=== PATIENT | female | born 1970 | race Caucasian/White ===

== ENCOUNTER 2020-08-23 15:59 | Outpatient (REF) | payer MEDICAID, SELFPAY | END 2020-08-23 16:00 | disposition home or self-care (01) | LOC: HO.LAB 15:59 | PROVIDERS: PCP Internal Medicine; Visit Provider Internal Medicine | DX: Z20.828 Contact with and (suspected) exposure to other viral communicable diseases (principal) | CPT/HCPCS: C9803; U0003 ==

== ENCOUNTER 2020-09-08 17:44 | Outpatient (REF) | payer MEDICAID, SELFPAY | END 2020-09-08 17:45 | disposition home or self-care (01) | LOC: HO.LAB 17:44 | PROVIDERS: Visit Provider Internal Medicine | DX: Z20.828 Contact with and (suspected) exposure to other viral communicable diseases (principal) | CPT/HCPCS: C9803; U0003 ==

== ENCOUNTER 2020-12-31 15:18 | Outpatient (REF) | payer MEDICAID, SELFPAY ==
--- NOTE | ~2020-12-31 | US_ITS ---
EXAMINATION: US VENOUS ULTRASOUND WITH DOPPLER LOWER EXTREMITY, LEFT CLINICAL INFORMATION: Left calf pain COMPARISON: None TECHNIQUE: Ultrasound of the deep veins is performed from the hip to the calf with compression sonography and color and pulse Doppler assessment. Spectral analysis with color-flow imaging is performed. FINDINGS: There is normal venous compression and respiratory variation and augmented flow. The visualized common femoral vein, superficial femoral vein, profunda femoral vein, popliteal vein, and the trifurcation region shows no evidence of deep venous thrombosis. There is no significant popliteal fossa cyst. There is a small benign lymph node in the left groin measuring 3.0 x 0.70 cm. It appears benign. If the patient's symptoms persist, followup ultrasound in 5 days 7 days might be of value to exclude proximal propagation from a non-visualized calf vein. US/US venous duplex LE IMPRESSION: No DVT demonstrated in the left lower extremity.
== END 2020-12-31 15:19 | disposition home or self-care (01) ==
LOC: HO.US 15:18
PROVIDERS: Visit Provider Internal Medicine
DX: M79.662 Pain in left lower leg (principal)
CPT/HCPCS: 93971

== ENCOUNTER 2021-02-15 17:54 | Emergency (ER) | payer MEDICAID, SELFPAY ==
--- NOTE | 2021-02-15 18:19 | ECG_ITS ---
Test Reason : CHEST PAIN Blood Pressure : / mmHG Vent. Rate : 058 BPM Atrial Rate : 058 BPM P-R Int : 122 ms QRS Dur : 074 ms QT Int : 410 ms P-R-T Axes : 045 022 006 degrees QTc Int : 402 ms Sinus bradycardia with sinus arrhythmia Septal infarct (cited on or before 06-JUN-2015) Abnormal ECG When compared with ECG of 03-NOV-2017 17:17, No significant change was found Referred By: Generic ED Physician Electronically Signed By:RICKY MONTIEL MD
[2021-02-15 18:33] VITALS: BP 152/82; PULSE 69; RESP 18; TEMP 36.9; O2SAT 100; BMI 37.4
[2021-02-15 20:08] VITALS: BP 139/75; PULSE 62; RESP 16; O2SAT 97
--- NOTE | 2021-02-15 20:21 | ED_ITS ---
HPI - General Adult General Chief complaint: Arrhythmia/Palpitations Stated complaint: abnormal ekg Time Seen by Provider: 02/15/21 20:21 Source: patient Mode of arrival: ambulatory Limitations: no limitations History of Present Illness HPI narrative: Patient been feeling the chest pain with palpitation off and on for last few days chest pain increases on deep breath and palpation no known coronary artery disease slight anxiety Related Data Previous Rx's Medication Instructions Recorded tramadol 50 mg tablet 100 mg PO TID PRN #180 tab 02/08/21 Allergies Allergy/AdvReac Type Severity Reaction Status Date / Time Penicillins Allergy Mild VAGINAL Unverified 05/27/20 16:29 FUNGUS INFECTION amoxicillin [AMOXICILLIN] Allergy Unknown VAGINAL Unverified 05/27/20 16:29 FUNGUS INFECTION lisinopril [LISINOPRIL] Allergy Unknown COUGH Unverified 05/27/20 16:29 penicillin V Allergy Unknown Unverified 12/25/19 00:00 prednisone Allergy Unknown Verified 12/25/19 00:00 verapamil Allergy Unknown Unverified 12/25/19 00:00 hydrocodone [From VICODIN] AdvReac Unknown STOMACH Unverified 05/27/20 16:29 PAIN Review of Systems Review of Systems: Constitutional : No Weight loss, No Fever, No Chills ENT/Mouth : No sore throat, No Rhinorrhea Eyes: No Eye Pain, No Swelling Cardiovascular : + Chest Pain, + palpitations Respiratory : No Cough, No Sputum, no shortness of breath Gastrointestinal : no Nausea, No Vomiting, No Diarrhea, No abdominal Pain, no black stools Genitourinary : No Dysuria, No Urinary Frequency Musculoskeletal : No joint pain, No Myalgias, No Joint Swelling Skin : No Skin Lesions, No rash Neuro : No Weakness, No Numbness, No Dizziness, No Headache Psych : No Anxiety/Panic, No Depression Heme/Lymph: No Bruising, No Lymphadenopathy Endocrine : No Polyuria, No Polydipsia All other systems reviewed and are negative PMFSH Social History Social History Advance Directives: No Physical Exam Vital Signs: Vital Signs: Last Vital Signs Temp 98.4 F 02/15/21 18:33 Pulse 62 02/15/21 20:08 Resp 16 02/15/21 20:08 BP 139/75 02/15/21 20:08 Pulse Ox 97 02/15/21 20:08 Body Mass Index 37.4 Appearance: Alert. Oriented X3. No acute distress. Eyes: PERRLA, No Nystagmus ENT: Pharynx normal. Oral Mucosa moist Neck: Normal inspection. Neck supple. CVS: Normal heart rate and rhythm. Pulses normal. Respiratory: No respiratory distress. Equal air entry bilateral, no wheezing/rales/rhonchi Abdomen: Soft and nontender. Bowel sounds are present, no mass palpable, no CVA tenderness Skin: Skin warm and dry. Normal skin color. Normal skin turgor. Extremities: No lower extremity edema. No calf tenderness Neuro: Oriented X 3. No motor deficit. No sensory deficit.No cerebellar signs , cranial nerves II-XII intact Medical Decision Making MDM Narrative Medical decision making narrative: Patient atypical chest pain for more than 24 hours duration EKG without any ischemic changes troponin negative director of cardiac rehabilitation without any PVCs or arrhythmias will discharge patient home advised to follow-up with precipitator supervisor/PCP Lab Data Lab results reviewed: Yes I reviewed the patient's lab results. Labs: Lab Results 02/15/21 Range/Units 21:02 Troponin I High Sens < 3.5 (<3.5-17.0) ng/L ECG Data Attestation: I personally reviewed and interpreted this ECG as follows: Interpretation: Sinus bradycardia heart rate 58 beats per minute no acute ST T wave changes normal intervals normal axis no acute ischemia Discharge Plan Discharge Clinical Impression: Chest pain Qualifiers: Chest pain type: precordial pain Qualified Code(s): R07.2 - Precordial pain Patient Disposition: Home, Self-Care Instructions: Chest Pain (ED) Additional Instructions: Your chest pain is likely musculoskeletal Follow-up your PCP for further workup Prescriptions: No Action tramadol 50 mg tablet 100 mg PO TID PRN (Reason: pain) Qty: 180 RF: 5 Interventions: ED Discharge Assessment Last Done: 02/15/21 22:32 Discharge Date/Time: 02/15/21 22:33
[2021-02-15 21:37] LABS: Troponin-I High Sensitivity < 3.5 ng/L (<3.5-17.0)
== END 2021-02-15 22:33 | disposition home or self-care (01) ==
PROVIDERS: Emergency Provider Internal Medicine; PCP Internal Medicine
DX: R07.2 Precordial pain (principal); R00.1 Bradycardia, unspecified; F41.9 Anxiety disorder, unspecified
CPT/HCPCS: 36415; 84484; 93005; 99283; 99284

== ENCOUNTER → 2021-06-28 13:53 | Outpatient (BNVA) | payer MEDICAID, SELFPAY | PROVIDERS: PCP Internal Medicine; Referring Provider Internal Medicine; Visit Provider Internal Medicine Cardiovascular Disease | DX: R07.2 Precordial pain (principal); R00.2 Palpitations; I10 Essential (primary) hypertension | CPT/HCPCS: 99202 ==

== ENCOUNTER → 2021-07-06 11:20 | Outpatient (REF) | payer MEDICAID, SELFPAY ==
--- NOTE | 2021-07-06 11:35 | CA_ITS ---
Acquisition Time: 2021-07-06 11:24:18 Total Exercise Time: 00:06:50 Test Indications: CP Medications: SEE CHART Protocol: LAM Max HR: 171 BPM 100% of Pred: 170 BPM Max BP: 190/050 mmHG Max Work Load: 8.2 METS Exercise stress test with exercise 6 min 50 sec of Lam protocol, with mild to mod sob, no chest discomfort, without arrythmia, with normotensive response to exercise, without EKG changes meeting criteria for ischemia. Echo images obtained by tech at rest and immediately post peak exercise. Definity contrast used. Test reviewed with Dr Rao. STRESS ECHO : Technique : Images were obtained at rest and immediately post exercise within 1 minute. Definity was injected to enhance endocardial definition. Images were obtained in multiple views and compared side to side. Findings : Images at rest were of good quality. LV systolic function is normal with normal wall motion. Post exercise images are of good quality. There is excellent augmentation of overall LV systolic function. There are no regional wall motion abnormalities. Conclusion : Stress echo is negative for ischemia Referred By: Ricky Roy Overread By: RICKY ROY MD
--- NOTE | 2021-07-06 11:35 | HM_ITS ---
Conclusion: 1. Patient was monitored for 3 days and 19 hours 2. Baseline was normal sinus rhythm with average heart rate of 83 beats per minute 3. No pauses or significant bradycardia noted 4. Very rare ectopics noted 5. No patient reported events MTDD
== END ==
LOC: HO.CARD 11:20
PROVIDERS: PCP Internal Medicine; Visit Provider Internal Medicine Cardiovascular Disease
DX: R07.2 Precordial pain (principal); R00.2 Palpitations
CPT/HCPCS: 93242; 93350; Q9957

== ENCOUNTER → 2021-07-29 09:28 | Outpatient (REF) | payer MEDICAID, SELFPAY ==
--- NOTE | ~2021-07-29 | XR_ITS ---
EXAMINATION: XR thoracic spine 2V, XR lumbar spine 4V min, XR cervical spine 4V CLINICAL INFORMATION: Pain in entire spine. COMPARISON: Thoracic lumbosacral cervical spine dated 04/29/14. Spine dated 01/26/15. TECHNIQUE: AP, lateral, open-mouth and both oblique views of the cervical spine. AP and lateral thoracic spine with swimmer's view. AP and lateral views of the lumbosacral spine with coned lateral view of the lumbosacral junction and both oblique views. FINDINGS: CERVICAL SPINE: Alignment. Vertebral body heights are maintained. Disc spaces are well-maintained. No evidence for spinal facet arthropathy. The neural foramina are widely patent bilaterally. THORACIC SPINE: Alignment is unremarkable. Bridging osteophytosis is present at T6-T7 and T7-T8 with minimal osteophytosis at other levels. Disc spaces are maintained. Vertebral body heights are maintained. The paravertebral soft tissues are normal. LUMBOSACRAL SPINE: There are 4 lumbar type vertebral bodies with presumed bilateral sacralization of L5. Disc spaces are maintained. Vertebral body heights are maintained. Alignment is normal. Facet arthropathy is noted in the lower lumbar spine. Sacroiliac joints are normal. The paravertebral soft tissues are normal. XR/XR lumbar spine 4V min IMPRESSION: 1. Unremarkable radiographic evaluation of the cervical spine. 2. Multilevel spondylosis in the thoracic spine. 3. Facet arthropathy in the lumbar spine. No significant degenerative disc disease.
--- NOTE | ~2021-07-29 | XR_ITS ---
EXAMINATION: XR thoracic spine 2V, XR lumbar spine 4V min, XR cervical spine 4V CLINICAL INFORMATION: Pain in entire spine. COMPARISON: Thoracic lumbosacral cervical spine dated 04/29/14. Spine dated 01/26/15. TECHNIQUE: AP, lateral, open-mouth and both oblique views of the cervical spine. AP and lateral thoracic spine with swimmer's view. AP and lateral views of the lumbosacral spine with coned lateral view of the lumbosacral junction and both oblique views. FINDINGS: CERVICAL SPINE: Alignment. Vertebral body heights are maintained. Disc spaces are well-maintained. No evidence for spinal facet arthropathy. The neural foramina are widely patent bilaterally. THORACIC SPINE: Alignment is unremarkable. Bridging osteophytosis is present at T6-T7 and T7-T8 with minimal osteophytosis at other levels. Disc spaces are maintained. Vertebral body heights are maintained. The paravertebral soft tissues are normal. LUMBOSACRAL SPINE: There are 4 lumbar type vertebral bodies with presumed bilateral sacralization of L5. Disc spaces are maintained. Vertebral body heights are maintained. Alignment is normal. Facet arthropathy is noted in the lower lumbar spine. Sacroiliac joints are normal. The paravertebral soft tissues are normal. XR/XR cervical spine 4V IMPRESSION: 1. Unremarkable radiographic evaluation of the cervical spine. 2. Multilevel spondylosis in the thoracic spine. 3. Facet arthropathy in the lumbar spine. No significant degenerative disc disease.
--- NOTE | ~2021-07-29 | XR_ITS ---
EXAMINATION: XR thoracic spine 2V, XR lumbar spine 4V min, XR cervical spine 4V CLINICAL INFORMATION: Pain in entire spine. COMPARISON: Thoracic lumbosacral cervical spine dated 04/29/14. Spine dated 01/26/15. TECHNIQUE: AP, lateral, open-mouth and both oblique views of the cervical spine. AP and lateral thoracic spine with swimmer's view. AP and lateral views of the lumbosacral spine with coned lateral view of the lumbosacral junction and both oblique views. FINDINGS: CERVICAL SPINE: Alignment. Vertebral body heights are maintained. Disc spaces are well-maintained. No evidence for spinal facet arthropathy. The neural foramina are widely patent bilaterally. THORACIC SPINE: Alignment is unremarkable. Bridging osteophytosis is present at T6-T7 and T7-T8 with minimal osteophytosis at other levels. Disc spaces are maintained. Vertebral body heights are maintained. The paravertebral soft tissues are normal. LUMBOSACRAL SPINE: There are 4 lumbar type vertebral bodies with presumed bilateral sacralization of L5. Disc spaces are maintained. Vertebral body heights are maintained. Alignment is normal. Facet arthropathy is noted in the lower lumbar spine. Sacroiliac joints are normal. The paravertebral soft tissues are normal. XR/XR thoracic spine 2V IMPRESSION: 1. Unremarkable radiographic evaluation of the cervical spine. 2. Multilevel spondylosis in the thoracic spine. 3. Facet arthropathy in the lumbar spine. No significant degenerative disc disease.
--- NOTE | 2021-07-29 09:30 | CA_ITS ---
Transthoracic Echocardiogram Patient (Last, First, Middle): Elaine Rodas, Gender: Female Date of : 1970 Age: 50 Procedure Date: 07/29/2021 Procedure Type: Transthoracic Echocardiogram Location: OP Height: 160.02 cm Weight: 100.25 kg BSA: 2.02 m2 Heart Rate: bpm BP: 134 / 80 mmHg Client Development Consultant: Referring MD: Aayush Roy MD Symptoms: R07.2 - Precordial pain Conclusions: - Normal left ventricular size and systolic function. - Normal right ventricular cavity size and systolic function. - Both atria are normal in size. - There is mild thickening of the aortic valve. Findings Left Ventricle Normal left ventricular size and systolic function. There is mildly increased left ventricular wall thickness. The visually estimated ejection fraction is between 60-65%. Diastolic function is normal for age. Right Ventricle Normal right ventricular cavity size and systolic function. Atria Both atria are normal in size. Aortic Valve There is a normal trileaflet aortic valve. There is mild thickening of the aortic valve. There is no aortic valve stenosis. There is no aortic valve regurgitation. Mitral Valve Normal mitral valve structure and function. There is trace mitral valve regurgitation. There is no mitral valve stenosis. Pulmonic Valve Normal pulmonic valve structure and function. There is no pulmonic valve regurgitation. Tricuspid Valve Normal tricuspid valve structure and function. There is trace tricuspid valve regurgitation. Normal right atrial pressure. There is no evidence of pulmonary hypertension. Great Vessels All visible segments of the aorta are normal in size. The visualized portions of the pulmonary artery and branches are normal. Venous The inferior vena cava is normal in size and collapses greater than 50% with inspiration. Pericardium/Pleural There is no evidence of pericardial effusion. Measurements 2D Linear Measurements IVSd: 1.06 0.6-0.9/0.6-1.0 cm LVIDd: 4.25 3.9-5.3/4.2-5.9 cm LVIDd Index: 2.10 2.4-3.2/2.2-3.1 cm/m2 LVIDs: 2.66 2.0-3.6 cm LVPWd: 1.08 0.7-1.1 cm Ao Root: 2.80 2.1-3.5 cm LA Diam: 3.80 2.7-3.8/3.0-4.0 cm LAIDs Index: 1.88 1.5-2.3 cm/m2 LV Mass: 191.52 67-162/88-224 g LV Mass Index: 94.81 43-95/49-115 g/m2 LVOT Diam: 2.10 3.0+(-)1.3 cm Mitral Valve MV Pk E: 0.91 MV PK A: 0.82 MV Decel Time: 189.00 E/A: 1.10 E'Lateral: 10.00 E'Medial: 11.40 E/E' Med: 8.00 E/E' Lat: 9.10 PHT: 55.00 MVA PHT: 4.00 Decel [place]: 4.80 Aortic Valve AoV Pk John: 1.54 AoV Mn John: 0.88 AoV VTI: 0.34 AoV Pk Grad: 9.00 Aov Mn Grad: 4.00 WILLY Cont.VTI: 2.36 LVOT LVOT Pk John: 0.97 LVOT Mn John: 0.61 LVOT VTI: 0.23 LVOT Pk Grad: 4.00 LVOT Mn Grad: 2.00 LVOT Diam: 2.10 LVOT Area: 3.46 Diastolic Function MV Pk E: 0.91 MV Pk A: 0.82 E/A: 1.10 E'Medial: 11.40 E/E' Med: 8.00 E' Laterial: 10.00 E/E' Lat: 9.10 Right Ventricle TAPSE (mm): 2.78 Tricuspid Valve TR Pk John: 2.03 TR Pk Grad: 16.00 RA Press: 3.00 RVSP: 19.00 Great Vessels Aorta Ao Root-2D: 2.80 2.0-3.7 cm Pulmonary Valve PV Pk John: 0.98 Peak PV Grad: 4.00 Updated in Other Vendor System with Status of Final Roque Gongroa MD electronically signed on 08/01/2021 8:27:50 PM with status of Final
== END ==
LOC: HO.CARD 09:28
PROVIDERS: Absent Provider Internal Medicine; PCP Internal Medicine; Visit Provider Internal Medicine Cardiovascular Disease
DX: R07.2 Precordial pain (principal); I10 Essential (primary) hypertension; M54.2 Cervicalgia; M54.50 Low back pain, unspecified; M54.6 Pain in thoracic spine
CPT/HCPCS: 72050; 72070; 72110; 93306

== ENCOUNTER → 2021-08-03 14:56 | Outpatient (BNVA) | payer MEDICAID, SELFPAY | PROVIDERS: PCP Internal Medicine; Referring Provider Internal Medicine; Visit Provider Nurse Practitioner Family | DX: R07.2 Precordial pain (principal); R00.2 Palpitations; I10 Essential (primary) hypertension | CPT/HCPCS: 99212 ==

== ENCOUNTER 2021-08-25 14:11 | Outpatient (REF) | payer MEDICAID, SELFPAY ==
[2021-08-25 15:14] LABS: Alanine Aminotransferase 9 U/L (0-31); Albumin Level 3.7 g/dL (3.5-5.0); Alkaline Phosphatase 116 U/L (39-117); Anion Gap 10 (12-20); Aspartate Amino Transferase 12 U/L (5-31); Bilirubin Total 0.3 mg/dL (0.0-1.0); Blood Urea Nitrogen 11 mg/dL (9-16); Calcium 9.4 mg/dL (8.4-10.2); Carbon Dioxide 28 mmol/L (22-29); Chloride 108 mmol/L (96-108); Estimated Glomerular Filt Rate > 60; Glucose Random 157 mg/dL (60-115); Potassium 4.3 mmol/L (3.3-5.1); Sodium 142 mmol/L (135-145); Total Protein 7.3 g/dL (6.5-8.0)
== END 2021-08-25 14:12 | disposition home or self-care (01) ==
LOC: HO.LAB 14:11
PROVIDERS: PCP Internal Medicine; Visit Provider Nurse Practitioner Family
DX: M47.816 Spondylosis without myelopathy or radiculopathy, lumbar region (principal)
CPT/HCPCS: 36415; 80053

== ENCOUNTER 2021-12-02 12:50 | Outpatient (REF) | payer MEDICAID, SELFPAY ==
--- NOTE | 2021-12-02 | PFT_ITS ---
FLOWS: FEV1 89% of predicted at 2.39 L. FVC 79% of predicted at 2.63 L. FEV1 to FVC ratio of 0.91. No bronchodilator response except in small to medium airways. LUNG VOLUMES: Total lung capacity 73% of predicted at 3.58 L. Residual volume 54% of predicted at 0.96 L. Slow vital capacity 83% of predicted at 2.63 L. Expiratory reserve volume 61% of predicted at 0.61 L. Diffusion capacity is mildly decreased, diffusion capacity corrects to normal after adjustment for alveolar ventilation. IMPRESSION: Mild restrictive ventilatory defect with no bronchodilator response except in small to medium airways. MD HUANG Joseph/MODL / [id number]
== END 2021-12-02 12:51 | disposition home or self-care (01) ==
LOC: HO.RESP 12:50
PROVIDERS: PCP Internal Medicine; Visit Provider Internal Medicine
DX: R06.2 Wheezing (principal)
CPT/HCPCS: 94060; 94727; 94729

== ENCOUNTER → 2022-01-30 14:16 | Outpatient (BNVA) | payer MEDICAID, SELFPAY | PROVIDERS: PCP Internal Medicine; Visit Provider Nurse Practitioner Family | DX: M79.7 Fibromyalgia (principal); M47.816 Spondylosis without myelopathy or radiculopathy, lumbar region | CPT/HCPCS: 99212 ==

== ENCOUNTER 2022-05-03 12:25 | Outpatient (REF) | payer MEDICAID, SELFPAY ==
[2022-05-03 12:36] LABS: MANUAL DIFF FLAG NO
[2022-05-03 13:30] LABS: Basophils Absolute Auto 0.1 X10*3/uL (0.0-0.2); Basophils Percent Auto 0.7 % (0-2); Eosinophils Absolute Auto 0.2 X10*3/uL (0.0-0.4); Hematocrit 36.8 % (37.0-47.0); Hemoglobin 12.4 g/dl (12.0-16.0); Imm Gran Abs Auto 0.01 X10*3/uL (0.00-0.03); Imm Gran Pct Auto 0.1 % (0.0-0.4); Lymphocytes Absolute Auto 3.3 X10*3/uL (1.2-4.9); Lymphocytes Percent Auto 43.1 % (20-40); Mean Corpuscular HGB Conc 33.7 g/dl (31.0-35.0); Mean Corpuscular Volume 88.9 fL (80.0-98.0); Mean Platelet Volume 10.3 fL (9.4-12.3); Monocytes Absolute Auto 0.4 X10*3/uL (0.1-1.2); Monocytes Percent Auto 5.3 % (2-11); Neutrophils Absolute Auto 3.7 x10*3/uL (2.0-8.3); Neutrophils Percent Auto 48.8 % (45-73); Platelet Count 269 X10*3/uL (160-400); Red Blood Count 4.14 X10*6/uL (4.20-5.50); Red Cell Distribution Width 13.1 % (11.0-16.0); White Blood Count 7.6 X10*3/uL (4.8-10.8)
[2022-05-03 13:39] LABS: Appearance Urine Clear; Color Urine Yellow; Glucose Urine UA Negative (Negative); Leukocyte Esterase Urine Negative (Negative); Nitrite Urine Negative (Negative); PH 5.5 (5.0-8.0); Specific Gravity - Urine 1.025 (1.005-1.025); Urine Blood Trace (Negative); Urine Ketones Trace mg/dL (Negative); Urine Protein Negative (Neg-Trace)
[2022-05-03 13:44] LABS: Bacteria Urine None Seen (None Seen); Hyaline Casts Urine 0-2 /LPF (0-2); Squamous Epithelial Cell Urine 0-2 /HPF (0-2); WBC Urine 0-5 /HPF (0-5)
[2022-05-03 14:10] LABS: Alanine Aminotransferase 10 U/L (0-31); Albumin Level 3.8 g/dL (3.5-5.0); Alkaline Phosphatase 103 U/L (39-117); Anion Gap 12 (12-20); Aspartate Amino Transferase 12 U/L (5-31); Bilirubin Total 0.2 mg/dL (0.0-1.0); Blood Urea Nitrogen 12 mg/dL (9-16); Calcium 9.3 mg/dL (8.4-10.2); Carbon Dioxide 28 mmol/L (22-29); Chloride 106 mmol/L (96-108); Estimated Glomerular Filt Rate > 60; Glucose Random 102 mg/dL (60-115); Potassium 4.3 mmol/L (3.3-5.1); Sodium 142 mmol/L (135-145); Total Protein 7.2 g/dL (6.5-8.0)
[2022-05-03 14:15] LABS: TSH reflex Free T4 1.17 uIU/mL (0.32-4.0)
== END 2022-05-03 12:26 | disposition home or self-care (01) ==
LOC: HO.LAB 12:25
PROVIDERS: PCP Internal Medicine; Visit Provider Nurse Practitioner
DX: Z01.818 Encounter for other preprocedural examination (principal); K91.5 Postcholecystectomy syndrome; K29.60 Other gastritis without bleeding; K58.9 Irritable bowel syndrome, unspecified; Z12.11 Encounter for screening for malignant neoplasm of colon; Z80.0 Family history of malignant neoplasm of digestive organs
CPT/HCPCS: 36415; 80053; 81001; 84443; 85025; 99202; 99212

== ENCOUNTER → 2022-05-24 10:06 | Outpatient (BNVA) | payer MEDICAID, SELFPAY | PROVIDERS: PCP Internal Medicine; Visit Provider Nurse Practitioner | DX: K91.5 Postcholecystectomy syndrome (principal); R11.0 Nausea; K29.60 Other gastritis without bleeding; Z80.0 Family history of malignant neoplasm of digestive organs | CPT/HCPCS: 99212 ==

== ENCOUNTER 2022-08-08 13:28 | Outpatient (REF) | payer MEDICAID, SELFPAY ==
--- NOTE | ~2022-08-08 | MR_ITS ---
EXAMINATION: MR LUMBAR SPINE WITHOUT CONTRAST CLINICAL INFORMATION: 51-year-old with unspecified low back pain. COMPARISON: None. TECHNIQUE: MRI of the lumbar spine was obtained using routine sequences without contrast. FINDINGS: CORONAL ALIGNMENT: Normal. SAGITTAL ALIGNMENT: Normal. LUMBOSACRAL JUNCTION: Normal. There are 4 [id number] lumbar-type vertebral bodies. The L1 level shows bilateral ribs. VERTEBRAL BODIES: Well maintained with normal height. No compression fractures, anomalies or other deformities. DISC SPACES AND ENDPLATES: Intervertebral disc space heights are well maintained throughout the lumbar spine. There is minimal disc desiccation at L3-L4 with minor spondylosis at this level. Endplates appear intact. SPINAL CANAL: No abnormal developmental findings. BONE MARROW: No significant marrow-replacing process or bone marrow edema. CONUS MEDULLARIS: Terminates at L2. Morphology and signal is normal. INTRADURAL NERVE ROOTS: Within normal limits. L5-S1: Shallow right-sided inferior foraminal disc protrusion noted without neural impingement. [id number] bilateral facet arthropathy noted without significant canal or neural foraminal stenosis. L4-L5: Small inferior foraminal protrusion on the left without neural impingement. Moderately larger inferior foraminal disc protrusion on the right without definite neural impingement. Mild ligamentum flavum thickening and moderate bilateral facet arthropathy with interspinous ligament degeneration. Mild central canal stenosis is noted with mild narrowing of the right subarticular recess. No significant neural foraminal stenosis. L3-L4: Minor foraminal/extraforaminal disc protrusions noted bilaterally without neural impingement. Mild facet arthrosis noted bilaterally. No canal or neural foraminal stenosis. L2-L3: Normal disc contour. Mild facet arthropathy noted bilaterally. No canal or neural foraminal stenosis. L1-L2: Normal disc contour. No facet arthrosis, canal or neural foraminal stenosis. At T10-T11, there is bilateral facet arthropathy without significant canal or neural foraminal stenosis. PARASPINAL/RETROPERITONEAL: The visualized paravertebral soft tissues are unremarkable. MR/MR lumbar spine wo con IMPRESSION: 1. Normal spinal alignment, with mild disc degenerative change and minor spondylosis at L3-L4. 2. Multilevel bilateral facet arthropathy, most apparent at L4-L5 with ligamentum flavum thickening and mild central canal stenosis at this level with mild narrowing of the right subarticular recess. 3. Small inferior foraminal disc protrusions at L4-L5 and L5-S1 without neural impingement. 4. Small foraminal/extraforaminal disc protrusions noted bilaterally at L3-L4 without neural impingement.
== END 2022-08-08 13:29 | disposition home or self-care (01) ==
LOC: HO.MRI 13:28
PROVIDERS: Visit Provider Internal Medicine
DX: M54.50 Low back pain, unspecified (principal)
CPT/HCPCS: 72148

== ENCOUNTER 2022-08-30 09:38 | Day surgery (SDC) | payer MEDICAID, SELFPAY ==
[2022-08-25 10:41] VITALS: BMI 36.8
--- NOTE | 2022-08-29 11:57 | P.CONAN_ITS ---
Documented by User: Carmen Asif NP 08/29/22 12:03 HPI - Anesthesia Eval Consult details Narrative: 51yo F for Colonoscopy Negative cardiac w/u 2020 - cardiac f/u prn only PMFSH Active Problems Active Problems: All Active Problems (Updated 08/25/22 @ 10:43 by Danielle Wiggins RN) Chest pain (Acute) Spondylosis of lumbar region without myelopathy or radiculopathy (Acute) Palpitations (Acute) Fibromyalgia (Acute) Smoker (Acute) Restrictive airway disease (Acute) Depression (Acute) Chronic headaches (Acute) Open-angle glaucoma (Acute) Family history of colon cancer (Acute) Preop examination (Acute) Post-cholecystectomy syndrome (Acute) Erosive gastritis (Acute) Nausea (Acute) HTN (hypertension) (Acute) Past Medical History Medical History Depression Fibromyalgia Glaucoma HTN (hypertension) Palpitations Family History Family History Father Kidney disease Mother CVD (cardiovascular disease) Surgical History Surgical History H/O colonoscopy History of tubal ligation Hx of carpal tunnel repair Hx of cholecystectomy Hx of knee surgery Social History Social History Alcohol intake: never Patient Tobacco Use Status: Current everyday Tobacco user Cigarette Packs Per Day: 0.5 Cigarettes Per Day: 10 Years Smoked: 30 Use of substances other than those prescribed or required for medical reasons: No Are you DNR?: No Advance Directives: No Advance Directives Information Provided: Yes Meds Allergies Allergy/AdvReac Type Severity Reaction Status Date / Time Penicillins Allergy Mild VAGINAL Verified 05/24/22 10:21 FUNGUS INFECTION lisinopril [LISINOPRIL] Allergy Unknown COUGH Verified 05/24/22 10:21 verapamil Allergy Unknown unknown Verified 05/24/22 10:21 hydrocodone [From VICODIN] AdvReac Unknown STOMACH Verified 05/24/22 10:21 PAIN Home Medications Medication Instructions Recorded Confirmed Last Taken Type amlodipine 10 mg tablet 10 mg PO DAILY 06/28/21 08/25/22 Unknown History buspirone 10 mg tablet 10 mg PO TID 06/28/21 08/25/22 Unknown History cholecalciferol (vitamin D3) 50 50 mcg PO DAILY 06/28/21 08/25/22 Unknown History mcg (2,000 unit) tablet (Vitamin D3) clonazepam 1 mg tablet 1 mg PO TID PRN Anxiety 06/28/21 08/25/22 Unknown History fluticasone propionate 50 1 spray intranasal DAILY 06/28/21 08/25/22 Unknown History mcg/actuation nasal spray,suspension hydroxyzine HCl 25 mg tablet 25 mg PO BID 06/28/21 08/25/22 Unknown History loratadine 10 mg tablet 10 mg PO DAILY 06/28/21 08/25/22 Unknown History losartan 100 mg tablet 100 mg PO DAILY 06/28/21 08/25/22 Unknown History zolpidem 10 mg tablet 10 mg PO BEDTIME PRN Insomnia 06/28/21 08/25/22 Unknown History albuterol sulfate 90 mcg/actuation 2 puff inhalation Q4H PRN 08/03/21 08/25/22 Unknown History aerosol inhaler (ProAir HFA) Shortness Of Breath latanoprost 0.005 % eye drops 1 drp ophthalmic (eye) BEDTIME 08/03/21 08/25/22 Unknown History clotrimazole 1 % topical cream appl topical 05/03/22 Unknown History prochlorperazine maleate 5 mg 5 mg PO DAILY PRN nausea and 05/03/22 08/25/22 Unknown History tablet vomiting varenicline 1 mg tablet 1 mg PO BID 05/03/22 Unknown History Exam Exam Date and Time: August 29, 2022 1157 Height,Weight and Vital Signs: Height 5 ft 4 in Weight 97.522 kg Pertinent Lab Results Pertinent Lab Results: Laboratory Tests 05/03/22 05/03/22 12:35 12:35 WBC 7.6 Hgb 12.4 Hct 36.8 L Plt Count 269 Sodium 142 Potassium 4.3 Chloride 106 Carbon Dioxide 28 BUN 12 Creatinine 0.92 Narrative Narrative: 2020 Cardiac w/u EKG recent visit shows sinus bradycardia with sinus arrhythmia, septal Q-wave, normal [place], QRS and QTC intervals, rate 58.? Stress echocardiogram done on 07/06/2021 showing [id number] shortness of breath with exercise 6 minutes 50 seconds without EKG changes or echo evidence of ischemia.? Echocardiogram done on 07/29/2021 shows EF 60-65%, atrial size is normal, no significant valve abnormalities. Assessment and Plan Assessment Anesthesia Assessment: Chart Reviewed Documented by User: Paxton Richards MD 08/30/22 11:00 PMF Past Medical History Medical History Depression Fibromyalgia Glaucoma HTN (hypertension) Palpitations Family History Family History Father Kidney disease Mother CVD (cardiovascular disease) Family history of problems with anesthesia: No Surgical History Surgical History H/O colonoscopy History of tubal ligation Hx of carpal tunnel repair Hx of cholecystectomy Hx of knee surgery History of Problems with Anesthesia: No Social History Social History Alcohol intake: never Patient Tobacco Use Status: Current everyday Tobacco user Cigarette Packs Per Day: 0.5 Cigarettes Per Day: 10 Years Smoked: 30 Use of substances other than those prescribed or required for medical reasons: No Are you DNR?: No Advance Directives: No Advance Directives Information Provided: Yes Meds Allergies Allergy/AdvReac Type Severity Reaction Status Date / Time Penicillins Allergy Mild VAGINAL Verified 05/24/22 10:21 FUNGUS INFECTION lisinopril [LISINOPRIL] Allergy Unknown COUGH Verified 05/24/22 10:21 verapamil Allergy Unknown unknown Verified 05/24/22 10:21 hydrocodone [From VICODIN] AdvReac Unknown STOMACH Verified 05/24/22 10:21 PAIN Home Medications Medication Instructions Recorded Confirmed Last Taken Type amlodipine 10 mg tablet 10 mg PO DAILY 06/28/21 08/25/22 Unknown History buspirone 10 mg tablet 10 mg PO TID 06/28/21 08/25/22 Unknown History cholecalciferol (vitamin D3) 50 50 mcg PO DAILY 06/28/21 08/25/22 Unknown His tory mcg (2,000 unit) tablet (Vitamin D3) clonazepam 1 mg tablet 1 mg PO TID PRN Anxiety 06/28/21 08/25/22 Unknown History fluticasone propionate 50 1 spray intranasal DAILY 06/28/21 08/25/22 Unknown History mcg/actuation nasal spray,suspension hydroxyzine HCl 25 mg tablet 25 mg PO BID 06/28/21 08/25/22 Unknown History loratadine 10 mg tablet 10 mg PO DAILY 06/28/21 08/25/22 Unknown History losartan 100 mg tablet 100 mg PO DAILY 06/28/21 08/25/22 Unknown History zolpidem 10 mg tablet 10 mg PO BEDTIME PRN Insomnia 06/28/21 08/25/22 Unknown History albuterol sulfate 90 mcg/actuation 2 puff inhalation Q4H PRN 08/03/21 08/25/22 Unknown History aerosol inhaler (ProAir HFA) Shortness Of Breath latanoprost 0.005 % eye drops 1 drp ophthalmic (eye) BEDTIME 08/03/21 08/25/22 Unknown History clotrimazole 1 % topical cream appl topical 05/03/22 Unknown History prochlorperazine maleate 5 mg 5 mg PO DAILY PRN nausea and 05/03/22 08/25/22 Unknown History tablet vomiting varenicline 1 mg tablet 1 mg PO BID 05/03/22 Unknown History Exam Airway Mallampati Class: II Neck ROM: Full Heart: rrr Lungs: clear Assessment and Plan Final Anesthetic Review Family History of Problems with Anesthesia: No History of Problems with Anesthesia: No NPO: Yes ASA Class: II Final Preanesthetic Review: No Changes in Pt Med Stat and Consent Obtained/Reviewed Patient Risk: Intermediate Procedure Risk: Low Anesthetic Plan Anesthetic Plan: MAC: Disposition: Standard PACU
--- NOTE | 2022-08-30 10:02 | MHC.SHP ---
Pre-Procedural Eval Section A Date of Service: 08/30/22 Section B Chief Complaint: screening Relevant Family History (Specify if Yes): No Relevant Social History: Tobacco Use Present Medications: see Short Stay Collaborative assessment Medical History: Significant History (Depression Fibromyalgia Glaucoma HTN (hypertension) Palpitations) History of Previous Operations: Relevant previous surgery/procedure and date(s) (H/O colonoscopy History of tubal ligation Hx of carpal tunnel repair Hx of cholecystectomy Hx of knee surgery) Allergies: Allergies Allergy/AdvReac Type Severity Reaction Status Date / Time Penicillins Allergy Mild VAGINAL Verified 05/24/22 10:21 FUNGUS INFECTION lisinopril [LISINOPRIL] Allergy Unknown COUGH Verified 05/24/22 10:21 verapamil Allergy Unknown unknown Verified 05/24/22 10:21 hydrocodone [From VICODIN] AdvReac Unknown STOMACH Verified 05/24/22 10:21 PAIN Review of Systems Sugical H&P ROS: Negative: Constitution, Cardiovascular, Respiratory, Neurological, Psychiatric, Hem-Onc, Allergic/Immunologic, Gastrointestinal, Genitourinary, Musculoskeletal, Integumentary, Endocrine and Eyes/Ears/Nose/Throat Exam Surgical H&P Exam: Normal: HEENT, Normal: Heart, Normal: Lungs, Normal: Extremities, Normal: Abdomen, Normal: Skin and Normal: Neurological Plan Diagnosis/Plan: Unchanged I have reviewed the history and physical and performed a pertinent physical examination on my patient. No changes have occurred unless specified. Time Spent With Patient Time: Total time managing care of this patient today ____ minutes.
--- NOTE | 2022-08-30 10:48 | P.OP_ITS ---
Operative Note Operative Note Date of Service: 08/30/22 Narrative: Operative Information Procedure Description: Colonoscopy Indication: screening Anesthesia: MAC COLONOSCOPY Instrument: Olympus variable stiffness pediatric scope 190L Colonoscopy Monitoring: Vital signs and clinical assessment, continuous EKG monitoring, Pulse oximetry, Carbon Dioxide monitoring and blood pressure monitoring were done throughout the procedure. Colon withdrawal time was 15 minutes. Procedure: The patient was placed in the left lateral decubitis position and pre-procedure medications were administered. After a digital rectal examination of the ano-rectum, the video colonoscope was inserted into the rectum and advanced through the colon to the cecum/TI. The colonoscope was slowly withdrawn in a retrograde panoramic fashion and the colon mucosa was carefully examined including a retroflexed view of the rectum. Findings and interventions are described below. Procedure Difficulty: easy Findings: Terminal Ileum-normal Cecum:normal Ascending Colon: normal Transverse Colon -normal Descending Colon:normal Sigmoid Colon: x1 sessile polyp 7-8 mm removed with cold snare and 5-6 mm sessile polyp removed with cold forceps Rectum: Retroflexion with small internal hemorrhoids, grade I Anorectum - normal Colon preparation: [place] Bowel Preparation Scale Right colon; 2 Transverse colon: 3 Left colon; 3 (0 = Unprepared colon segment with mucosa not seen due to solid stool that cannot be cleared. 1 = Portion of mucosa of the colon segment seen, but other areas of the colon segment not well seen due to staining, residual stool and/or opaque liquid. 2 = Minor amount of residual staining, small fragments of stool and/or opaque liquid, but mucosa of colon segment seen well. 3 = Entire mucosa of colon segment seen well with no residual staining, small fragments of stool or opaque liquid) Impression and Post Procedure Diagnosis: polyps internal hemorrhoids Plan: High fiber diet leaflet Avoid straining at stool, epsom salts and sitz bath, anusol supps or cream Repeat Colonoscopy in 5-7 years if adenomatous polyps, 10 yrs if hyperplastic or earlier if clinically indicated Above findings were reviewed with the patient and relevant handouts were provided if indicated.
[2022-08-30 10:54] VITALS: BP 117/62; PULSE 67; RESP 16; TEMP 36.2; O2SAT 97
[2022-08-30] MEDS: Lactated Ringers 1,000 ML 100 ML IVCONT (11:05)
[2022-08-30 11:35] VITALS: BP 100/53; PULSE 73; RESP 16; TEMP 36.6; O2SAT 95
[2022-08-30 11:50] VITALS: BP 114/64; PULSE 66; RESP 19; O2SAT 95
[2022-08-30 12:05] VITALS: BP 127/68; PULSE 61; RESP 18; TEMP 36.5; O2SAT 97
== END 2022-08-30 13:00 | disposition home or self-care (01) ==
PROVIDERS: PCP Internal Medicine; Visit Provider Internal Medicine Gastroenterology
PROC: 0DJD8ZZ Inspection of Lower Intestinal Tract, Via Natural or Artificial Opening Endoscopic (ICD-10-PCS; CPT 45378; principal; 2022-08-30 10:50)
DX: Z12.11 Encounter for screening for malignant neoplasm of colon (principal); Z80.0 Family history of malignant neoplasm of digestive organs; K63.5 Polyp of colon; K64.0 First degree hemorrhoids; K58.9 Irritable bowel syndrome, unspecified; K91.5 Postcholecystectomy syndrome; K29.60 Other gastritis without bleeding; I10 Essential (primary) hypertension; H40.9 Unspecified glaucoma; M79.7 Fibromyalgia; Z79.899 Other long term (current) drug therapy; Z88.0 Allergy status to penicillin; Z88.8 Allergy status to other drugs, medicaments and biological substances; Z90.49 Acquired absence of other specified parts of digestive tract; F17.210 Nicotine dependence, cigarettes, uncomplicated
CPT/HCPCS: 45385; 45380; 88305

== ENCOUNTER → 2022-12-06 14:29 | Outpatient (BNVA) | payer MEDICAID, SELFPAY | PROVIDERS: PCP Internal Medicine; Visit Provider Nurse Practitioner | DX: K58.2 Mixed irritable bowel syndrome (principal); R11.0 Nausea; Z80.0 Family history of malignant neoplasm of digestive organs | CPT/HCPCS: 99212 ==

== ENCOUNTER 2023-02-08 08:24 | Outpatient (REF) | payer MEDICAID, SELFPAY ==
[2023-02-08 09:14] LABS: MANUAL DIFF FLAG NO
[2023-02-08 09:53] LABS: Basophils Absolute Auto 0.1 X10*3/uL (0.0-0.2); Basophils Percent Auto 0.8 % (0-2); Eosinophils Absolute Auto 0.2 X10*3/uL (0.0-0.4); Eosinophils Percent Auto 1.9 % (0-4); Hematocrit 36.3 % (37.0-47.0); Hemoglobin 12.1 g/dl (12.0-16.0); Imm Gran Abs Auto 0.02 X10*3/uL (0.00-0.03); Imm Gran Pct Auto 0.2 % (0.0-0.4); Lymphocytes Absolute Auto 3.7 X10*3/uL (1.2-4.9); Lymphocytes Percent Auto 41.8 % (20-40); Mean Corpuscular HGB Conc 33.3 g/dl (31.0-35.0); Mean Corpuscular Hemoglobin 29.7 pg (27.0-33.0); Mean Corpuscular Volume 89.2 fL (80.0-98.0); Mean Platelet Volume 10.1 fL (9.4-12.3); Monocytes Absolute Auto 0.6 X10*3/uL (0.1-1.2); Monocytes Percent Auto 6.4 % (2-11); Neutrophils Absolute Auto 4.3 x10*3/uL (2.0-8.3); Neutrophils Percent Auto 48.9 % (45-73); Platelet Count 249 X10*3/uL (160-400); Red Blood Count 4.07 X10*6/uL (4.20-5.50); White Blood Count 8.7 X10*3/uL (4.8-10.8)
[2023-02-08 10:45] LABS: Alanine Aminotransferase 11 U/L (0-31); Albumin Level 3.7 g/dL (3.5-5.0); Alkaline Phosphatase 107 U/L (39-117); Anion Gap 10 (12-20); Aspartate Amino Transferase 12 U/L (5-31); Bilirubin Total 0.2 mg/dL (0.0-1.0); Blood Urea Nitrogen 13 mg/dL (9-16); Carbon Dioxide 28 mmol/L (22-29); Chloride 108 mmol/L (96-108); Estimated Glomerular Filt Rate > 60; Glucose Random 103 mg/dL (60-115); Lipase 35 U/L (8-78); Sodium 142 mmol/L (135-145); Total Protein 6.8 g/dL (6.5-8.0)
[2023-02-08 11:04] LABS: Amylase 74 U/L (28-100)
== END 2023-02-08 08:25 | disposition home or self-care (01) ==
LOC: HO.LAB 08:24
PROVIDERS: PCP Internal Medicine; Referring Provider Internal Medicine; Visit Provider Nurse Practitioner
DX: K85.10 Biliary acute pancreatitis without necrosis or infection (principal); R10.12 Left upper quadrant pain
CPT/HCPCS: 36415; 80053; 82150; 83690; 85025; 99212

== ENCOUNTER 2023-04-03 14:04 | Outpatient (REF) | payer MEDICAID, SELFPAY ==
[2023-04-03 17:03] LABS: Anion Gap 13 (12-20); Blood Urea Nitrogen 14 mg/dL (9-16); Calcium 9.4 mg/dL (8.4-10.2); Carbon Dioxide 24 mmol/L (22-29); Chloride 109 mmol/L (96-108); Estimated Glomerular Filt Rate > 60; Glucose Random 114 mg/dL (60-115); Potassium 3.9 mmol/L (3.3-5.1); Sodium 142 mmol/L (135-145)
== END 2023-04-03 14:05 | disposition home or self-care (01) ==
LOC: HO.HHCL 14:04
PROVIDERS: Visit Provider Internal Medicine
DX: I10 Essential (primary) hypertension (principal)
CPT/HCPCS: 36415; 80048

== ENCOUNTER 2023-04-20 13:10 | Outpatient (REF) | payer MEDICAID, SELFPAY ==
--- NOTE | ~2023-04-20 | XR_ITS ---
EXAMINATION: XR CLAVICLE, RIGHT CLINICAL INFORMATION: Deformity COMPARISON: 12/16/2018 TECHNIQUE: Two views of the right clavicle. FINDINGS: No fracture or cortical disruption. Appropriate alignment at the acromioclavicular joint. The soft tissues appear unremarkable. The visualized lungs are clear. The visualized ribs are intact. XR/XR clavicle RT IMPRESSION: No fracture or malalignment.
== END 2023-04-20 13:11 | disposition home or self-care (01) ==
LOC: HO.HHCX 13:10
PROVIDERS: Visit Provider Internal Medicine
DX: M95.8 Other specified acquired deformities of musculoskeletal system (principal)
CPT/HCPCS: 73000

== ENCOUNTER 2023-05-03 10:34 | Outpatient (REF) | payer MEDICAID, SELFPAY ==
--- NOTE | ~2023-05-03 | US_ITS ---
EXAMINATION: US ABDOMEN COMPLETE CLINICAL INFORMATION: Left upper quadrant pain. COMPARISON: CT abdomen and pelvis without and with contrast dated 06/06/2019. Renals only ultrasound dated 05/23/2016. Ultrasound abdomen complete dated 05/18/2015. TECHNIQUE: Real-time imaging of the abdominal viscera. FINDINGS: PANCREAS: Normal. ABDOMINAL AORTA: The proximal, mid, and distal segments are normal in caliber. INFERIOR VENA CAVA: Visualized portions are normal. LIVER: Normal. The liver is normal in size. The liver contour is normal. Parenchymal echogenicity is normal. No focal hepatic lesion. There is no intrahepatic biliary duct dilatation seen. GALLBLADDER: Surgically absent. COMMON BILE DUCT: Normal in caliber measuring 1.1 cm in diameter. RIGHT KIDNEY: Normal. No hydronephrosis. No renal calculi or focal parenchymal lesions. The kidney measures 11.0 cm in maximum dimension. LEFT KIDNEY: Normal. No hydronephrosis. No renal calculi or focal parenchymal lesions. The kidney measures 9.0 cm in maximum dimension. SPLEEN: Normal. The spleen measures 8.3 cm in maximum dimension. FREE FLUID: None. US/US abdomen complete IMPRESSION: The gallbladder is surgically absent. Otherwise, unremarkable examination.
== END 2023-05-03 10:35 | disposition home or self-care (01) ==
LOC: HO.US 10:34
PROVIDERS: PCP Internal Medicine; Visit Provider Nurse Practitioner
DX: R10.12 Left upper quadrant pain (principal); K85.10 Biliary acute pancreatitis without necrosis or infection
CPT/HCPCS: 76700

== ENCOUNTER 2023-05-08 09:04 | Outpatient (REF) | payer MEDICAID, SELFPAY ==
--- NOTE | ~2023-05-08 | FL_ITS ---
EXAMINATION: XR FLUOROSCOPY BARIUM SWALLOW WITH AIR CLINICAL INFORMATION: Dysphasia, globus sensation. COMPARISON: None available for direct comparison. TECHNIQUE: Air-contrast barium swallow was performed utilizing fluoroscopic guidance within and thick barium and effervescent granules utilizing standard technique. Numerous spot images were obtained during the exam. FINDINGS: Hypopharyngeal swallow demonstrates transient penetration into the larynx to the level of the false cords. No definite subglottic or glottic aspiration identified. This cleared with subsequent throat clearing. Otherwise, the structures of the hypopharynx have a normal appearance. No significant pooling in the piriform sinuses or vallecula. The esophagus has a normal caliber without evidence of mass or stricture. No definite mucosal abnormality identified. Primary peristalsis was normal, however there are mild tertiary contractions which were nonpropulsive, consistent with mild presbyesophagus. No hiatus hernia identified. There is mild gastroesophageal reflux identified during the course of the examination to the level of the inferior aortic arch. Images of the stomach demonstrated normal contour and fold pattern. No ulcerations or masses. Imaging of the duodenal bulb and proximal duodenum appear normal. FLUOROSCOPY TIME: 4.0 minutes 34 spot images obtained. DOSE AREA PRODUCT: 41.380 uGy-m2 (microgray-meter squared) FL/FL barium swallow with air IMPRESSION: 1. Transient laryngeal penetration identified on thick barium without gross glottic or subglottic aspiration. This cleared with subsequent throat clearing. 2. No hiatus hernia. Mild gastroesophageal reflux identified. 3. Mild presbyesophagus. Esophagus otherwise normal. 4. Normal-appearing stomach, duodenal bulb, and duodenum.
== END 2023-05-08 09:05 | disposition home or self-care (01) ==
LOC: HO.XRAY 09:04
PROVIDERS: PCP Internal Medicine; Visit Provider Internal Medicine
DX: R13.11 Dysphagia, oral phase (principal)
CPT/HCPCS: 74221

== ENCOUNTER → 2023-05-08 09:06 | Outpatient (BNV) | payer MEDICAID, SELFPAY | PROVIDERS: PCP Internal Medicine; Visit Provider Radiology Diagnostic Radiology | DX: K29.60 Other gastritis without bleeding (principal) | CPT/HCPCS: 74221 ==

== ENCOUNTER 2023-05-10 11:35 | Outpatient (REF) | payer MEDICAID, SELFPAY ==
--- NOTE | ~2023-05-10 | XR_ITS ---
EXAMINATION: XR FOOT, RIGHT CLINICAL INFORMATION: Right foot pain. COMPARISON: None available. TECHNIQUE: AP, lateral, and oblique views of the right foot. FINDINGS: There is no acute fracture or dislocation. The tarsal bones are normally aligned. Small plantar and retrocalcaneal spurs are noted. The soft tissues are unremarkable. XR/XR foot RT min 3V IMPRESSION: Small degenerative calcaneal spurs. No acute fracture.
== END 2023-05-10 11:36 | disposition home or self-care (01) ==
LOC: HO.HHCX 11:35
PROVIDERS: Visit Provider Internal Medicine
DX: M79.671 Pain in right foot (principal)
CPT/HCPCS: 73630

== ENCOUNTER 2023-05-14 16:11 | Emergency (ER) | payer MEDICAID, SELFPAY ==
--- NOTE | ~2023-05-14 | XR_ITS ---
EXAMINATION: XR CHEST CLINICAL INFORMATION: Chest pain and dyspnea COMPARISON: Previous chest x-ray October 2017 TECHNIQUE: 2 views of the chest were obtained. FINDINGS: No significant abnormality is noted involving the heart, lungs, mediastinum, bony thorax or soft tissues. Degenerative changes of the spine. XR/XR chest 2V IMPRESSION: No evidence for acute disease in the chest.
[2023-05-14 16:13] VITALS: BP 153/84; PULSE 80; RESP 16; TEMP 36.6; O2SAT 100; BMI 36.8
--- NOTE | 2023-05-14 16:14 | ED_ITS ---
HPI - General Adult General Chief complaint: Chest Pain Stated complaint: Chest Pain Time Seen by Provider: 05/14/23 20:12 Source: patient Mode of arrival: ambulatory Limitations: no limitations History of Present Illness HPI narrative: Patient came here with left-sided chest pain radiating to the left arm with shortness of breath for last 4 days . history of same in the past been seen by behavioral modification assistant on 06/30 at that time patient had a stress echo which was normal patient does have history of depression hypertension and fibromyalgia patient labs done prior to my evaluation showed normal high sensitive troponin and EKG vitals were stable with blood pressure 140/83 pulse rate 62 saturating 97% room air Related Data Home Medications Medication Instructions Recorded Confirmed amlodipine 10 mg tablet 10 mg PO DAILY 06/28/21 08/25/22 buspirone 10 mg tablet 10 mg PO TID 06/28/21 08/25/22 cholecalciferol (vitamin D3) 50 50 mcg PO DAILY 06/28/21 08/25/22 mcg (2,000 unit) tablet (Vitamin D3) clonazepam 1 mg tablet 1 mg PO TID PRN Anxiety 06/28/21 08/25/22 fluticasone propionate 50 1 spray intranasal DAILY 06/28/21 08/25/22 mcg/actuation nasal spray,suspension hydroxyzine HCl 25 mg tablet 25 mg PO BID 06/28/21 08/25/22 loratadine 10 mg tablet 10 mg PO DAILY 06/28/21 08/25/22 losartan 100 mg tablet 100 mg PO DAILY 06/28/21 08/25/22 zolpidem 10 mg tablet 10 mg PO BEDTIME PRN Insomnia 06/28/21 08/25/22 albuterol sulfate 90 mcg/actuation 2 puff inhalation Q4H PRN 08/03/21 08/25/22 aerosol inhaler (ProAir HFA) Shortness Of Breath clotrimazole 1 % topical cream appl topical 05/03/22 varenicline 1 mg tablet 1 mg PO BID 05/03/22 cyclobenzaprine 5 mg tablet 5 mg PO BEDTIME 12/06/22 gabapentin 100 mg capsule 100 mg PO DAILY 12/06/22 Previous Rx's Medication Instructions Recorded ondansetron HCl 4 mg tablet 4 mg PO BID-TID PRN nausea and 09/26/22 vomiting 1 day #4 tabs dexlansoprazole 60 mg 60 mg PO DAILY 90 days #90 caps 02/08/23 capsule,biphase delayed release (Dexilant) nlkxsk-[id number]-rlatokt 1 cap PO QID 30 days #120 caps 02/08/23 24,000-76,000-120,000 unit capsule,delayed rel (Creon) sennosides 8.6 mg capsule (senna) See Rx Instructions PO BEDTIME 02/08/23 constipation 30 days #60 caps tramadol 50 mg tablet 50 mg PO Q6H PRN pain #20 tabs 05/14/23 Allergies Allergy/AdvReac Type Severity Reaction Status Date / Time Penicillins Allergy Mild VAGINAL Verified 05/14/23 16:18 FUNGUS INFECTION lisinopril [LISINOPRIL] Allergy Unknown COUGH Verified 05/14/23 16:18 verapamil Allergy Unknown unknown Verified 05/14/23 16:18 hydrocodone [From VICODIN] AdvReac Unknown STOMACH Verified 05/14/23 16:18 PAIN Review of Systems 2 Review of Systems: Yes all other systems are reviewed and are negative PMFSH Past Medical History Medical History Depression Fibromyalgia Gallstone pancreatitis Glaucoma HTN (hypertension) Palpitations Surgical History H/O colonoscopy History of tubal ligation Hx of carpal tunnel repair Hx of cholecystectomy Hx of knee surgery Family History Family History Father Kidney disease Mother CVD (cardiovascular disease) Social History Social History Alcohol intake: never Patient Tobacco Use Status: Current everyday Tobacco user Cigarette Packs Per Day: 0.5 Cigarettes Per Day: 10 Years Smoked: 30 Smoked in Last 30 Days: Yes Use of substances other than those prescribed or required for medical reasons: No Advance Directives: No Advance Directives Information Provided: No Patient : No Physical Exam ED Vital Signs: Vital Signs - 24 hr 05/14/23 16:13 05/14/23 19:35 05/14/23 20:19 Temperature 97.9 F 98.1 F Pulse Rate 80 62 60 Respiratory Rate 16 21 H 21 H Blood Pressure 153/84 H 140/83 H 140/73 H Pulse Oximetry 100 97 97 Oxygen Delivery Method Room Air Room Air Room Air BMI result Body Mass Index 36.8 Appearance: Alert. Oriented X3. No acute distress. Eyes: PERRLA, No Nystagmus ENT: Pharynx normal. Oral Mucosa moist Neck: Normal inspection. Neck supple. CVS: Normal heart rate and rhythm. Pulses normal. Tender to touch left precordial area Respiratory: No respiratory distress. Equal air entry bilateral, no wheezing/rales/rhonchi Abdomen: Soft and nontender. Bowel sounds are present, no mass palpable, no CVA tenderness Skin: Skin warm and dry. Normal skin color. Normal skin turgor. Extremities: No lower extremity edema. No calf tenderness Neuro: Oriented X 3. No motor deficit. No sensory deficit.No cerebellar signs , cranial nerves II-XII intact Course Course Course Narrative: This is a rapid medical exam: Additional HPI, ROS, PE not included below will be deferred to primary provider. Patient is a 52-year-old female with history of restrictive airway disease, fibromyalgia, HTN presenting to the emergency department with four days of intermittent chest pain radiating down left arm and shortness of breath. Also complains of nausea. Daughter reports elevated BP readings. Denies fevers. Plan: EKG, CXR, labs Medications Administered Discontinued Medications Generic Name Dose Route Start Last Admin Trade Name Sandorq PRN Reason Stop Dose Admin Tramadol HCl 50 mg 05/14/23 20:33 05/14/23 20:38 Tramadol Hcl 50 Mg Tablet PO 05/14/23 20:34 50 mg ONCE ONE Administration Medical Decision Making Medical Decision Making [facility] Narrative: Patient with 4 days of chest pain atypical high sensitive troponin EKG negative chest pain reproducible on palpation likely fibromyalgia pain discharge patient home on tramadol Differential Diagnosis Differential Diagnoses: The differential diagnosis associated with the presentation includes ACS/fibromyalgia/pericarditis/non STEMI/anxiety Admission/Observation Consideration of admission/observation: Escalation of care including admission/observation considered Lab Data [facility] Lab Attestation statement: I reviewed the patient's lab results. 05/14/23 16:53 05/14/23 16:53 Labs: Lab Results 05/14/23 05/14/23 05/14/23 Range/Units 16:53 16:53 16:53 WBC 7.5 (4.8-10.8) X10*3/uL RBC 4.18 L (4.20-5.50) X10*6/uL Hgb 12.3 (12.0-16.0) g/dl Hct 36.9 L (37.0-47.0) % MCV 88.3 (80.0-98.0) fL MCH 29.4 (27.0-33.0) pg MCHC 33.3 (31.0-35.0) g/dl RDW 12.6 (11.0-16.0) % Plt Count 262 (160-400) X10*3/uL MPV 9.7 (9.4-12.3) fL Immature Gran % (Auto) 0.3 (0.0-0.4) % Neut % (Auto) 56.3 (45-73) % Lymph % (Auto) 36.1 (20-40) % [place] % (Auto) 5.3 (2-11) % Eos % (Auto) 1.5 (0-4) % Baso % (Auto) 0.5 (0-2) % Lymph # (Auto) 2.7 (1.2-4.9) X10*3/uL [place] # (Auto) 0.4 (0.1-1.2) X10*3/uL Eos # (Auto) 0.1 (0.0-0.4) X10*3/uL Baso # (Auto) 0.0 (0.0-0.2) X10*3/uL Abs Immat Gran (auto) 0.02 (0.00-0.03) X10*3/uL Absolute Neuts (auto) 4.2 (2.0-8.3) x10*3/uL Absolute Nucleated RBC 0.000 (0.0-0.012) X10*3/uL Nucleated RBC % (auto) 0.0 (0.0-0.2) /100WBC PT 11.4 (11.1-13.3) SEC INR 0.9 (0.9-1.1) Sodium 143 (135-145) mmol/L Potassium 4.2 (3.3-5.1) mmol/L Chloride 111 H (96-108) mmol/L Carbon Dioxide 25 (22-29) mmol/L Anion Gap 11 L (12-20) BUN 9 (9-16) mg/dL Creatinine 0.90 (0.5-1.4) mg/dL Estim Creat Clear Calc 79.8 Estimated GFR > 60 Random Glucose 104 (60-115) mg/dL Calcium 9.3 (8.4-10.2) mg/dL Total Bilirubin 0.3 (0.0-1.0) mg/dL AST 13 (5-31) U/L ALT 9 (0-31) U/L Alkaline Phosphatase 103 (39-117) U/L Troponin I High Sens (<3.5-17.0) ng/L Total Protein 7.4 (6.5-8.0) g/dL Albumin 3.2 L (3.5-5.0) g/dL Urine Color Urine Appearance Urine pH (5.0-9.0) Ur Specific Marceline (1.005-1.025) Urine Protein (Neg-Trace) mg/dL Urine Glucose (UA) (Negative) mg/dL Urine Ketones (Negative) mg/dL Urine Blood (Negative) Urine Nitrite (Negative) Ur Leukocyte Esterase (Negative) Urine RBC (0-2) /HPF Urine WBC (0-5) /HPF Ur Squamous Epith Cells (0-2) /HPF Urine Bacteria (None Seen) Hyaline Casts (0-2) /LPF 05/14/23 05/14/23 Range/Units 16:53 19:34 WBC (4.8-10.8) X10*3/uL RBC (4.20-5.50) X10*6/uL Hgb (12.0-16.0) g/dl Hct (37.0-47.0) % MCV (80.0-98.0) fL MCH (27.0-33.0) pg MCHC (31.0-35.0) g/dl RDW (11.0-16.0) % Plt Count (160-400) X10*3/uL MPV (9.4-12.3) fL Immature Gran % (Auto) (0.0-0.4) % Neut % (Auto) (45-73) % Lymph % (Auto) (20-40) % [place] % (Auto) (2-11) % Eos % (Auto) (0-4) % Baso % (Auto) (0-2) % Lymph # (Auto) (1.2-4.9) X10*3/uL [place] # (Auto) (0.1-1.2) X10*3/uL Eos # (Auto) (0.0-0.4) X10*3/uL Baso # (Auto) (0.0-0.2) X10*3/uL Abs Immat Gran (auto) (0.00-0.03) X10*3/uL Absolute Neuts (auto) (2.0-8.3) x10*3/uL Absolute Nucleated RBC (0.0-0.012) X10*3/uL Nucleated RBC % (auto) (0.0-0.2) /100WBC PT (11.1-13.3) SEC INR (0.9-1.1) Sodium (135-145) mmol/L Potassium (3.3-5.1) mmol/L Chloride (96-108) mmol/L Carbon Dioxide (22-29) mmol/L Anion Gap (12-20) BUN (9-16) mg/dL Creatinine (0.5-1.4) mg/dL Estim Creat Clear Calc Estimated GFR Random Glucose (60-115) mg/dL Calcium (8.4-10.2) mg/dL Total Bilirubin (0.0-1.0) mg/dL AST (5-31) U/L ALT (0-31) U/L Alkaline Phosphatase (39-117) U/L Troponin I High Sens < 2.7 (<3.5-17.0) ng/L Total Protein (6.5-8.0) g/dL Albumin (3.5-5.0) g/dL Urine Color Yellow Urine Appearance Turbid Urine pH 5.5 (5.0-9.0) Ur Specific Marceline 1.025 (1.005-1.025) Urine Protein Negative (Neg-Trace) mg/dL Urine Glucose (UA) Negative (Negative) mg/dL Urine Ketones Trace (Negative) mg/dL Urine Blood Trace H (Negative) Urine Nitrite Negative (Negative) Ur Leukocyte Esterase Negative (Negative) Urine RBC 11-20 H (0-2) /HPF Urine WBC 0-5 (0-5) /HPF Ur Squamous Epith Cells 0-2 (0-2) /HPF Urine Bacteria None Seen (None Seen) Hyaline Casts 0-2 (0-2) /LPF Independent Interpretation I performed an independent interpretation of an: EKG Interpretation: Normal sinus rhythm heart rate 60 beats per minute normal interval normal axis no acute ST-T changes no acute ischemia Discharge Plan Discharge Clinical Impression: Chest pain Patient Disposition: Home, Self-Care Instructions: Chest Pain (ED) Additional Instructions: The chest pain is unlikely from the heart likely musculoskeletal Take pain medication as prescribed and follow with PCP for further evaluation Prescriptions: New tramadol 50 mg tablet 50 mg PO Q6H PRN (Reason: pain) Qty: 20 0RF No Action ondansetron HCl 4 mg tablet 4 mg PO BID-TID PRN (Reason: nausea and vomiting) 1 Days Qty: 4 0RF clonazepam 1 mg tablet 1 mg PO TID PRN (Reason: Anxiety) cholecalciferol (vitamin D3) [Vitamin D3] 50 mcg (2,000 unit) tablet 50 mcg PO DAILY losartan 100 mg tablet 100 mg PO DAILY buspirone 10 mg tablet 10 mg PO TID hydroxyzine HCl 25 mg tablet 25 mg PO BID zolpidem 10 mg tablet 10 mg PO BEDTIME PRN (Reason: Insomnia) fluticasone propionate 50 mcg/actuation spray,suspension 1 spray intranasal DAILY loratadine 10 mg tablet 10 mg PO DAILY amlodipine 10 mg tablet 10 mg PO DAILY gabapentin 100 mg capsule 100 mg PO DAILY cyclobenzaprine 5 mg tablet 5 mg PO BEDTIME albuterol sulfate [ProAir HFA] 90 mcg/actuation HFA aerosol inhaler 2 puff inhalation Q4H PRN (Reason: Shortness Of Breath) varenicline 1 mg tablet 1 mg PO BID clotrimazole 1 % cream topical senna 8.6 mg capsule See Rx Instructions PO BEDTIME 30 Days Qty: 60 6RF Rx Instructions: 1-2 tabs qhs orally bedtime; Creon 24,000-76,000 -120,000 unit capsule,delayed release(DR/EC) 1 cap PO QID 30 Days Qty: 120 6RF Rx Instructions: administer with meals and/or snacks dexlansoprazole [Dexilant] 60 mg capsule,biphase delayed releas 60 mg PO DAILY 90 Days Qty: 90 6RF Interventions: ED Discharge Assessment Last Done: 05/14/23 20:41 Discharge Date/Time: 05/14/23 20:42
--- NOTE | 2023-05-14 16:16 | ECG_ITS ---
Test Reason : chest pain Blood Pressure : / mmHG Vent. Rate : 060 BPM Atrial Rate : 060 BPM P-R Int : 130 ms QRS Dur : 074 ms QT Int : 412 ms P-R-T Axes : 041 011 -09 degrees QTc Int : 412 ms Normal sinus rhythm Nonspecific T wave abnormality Abnormal ECG When compared with ECG of 15-FEB-2021 18:09, Nonspecific T wave abnormality now evident in Anterolateral leads Referred By: Vee Castano Electronically Signed By:MADHU FORD
[2023-05-14 17:03] LABS: MANUAL DIFF FLAG NO
[2023-05-14 17:06] LABS: Basophils Percent Auto 0.5 % (0-2); Eosinophils Absolute Auto 0.1 X10*3/uL (0.0-0.4); Eosinophils Percent Auto 1.5 % (0-4); Hematocrit 36.9 % (37.0-47.0); Hemoglobin 12.3 g/dl (12.0-16.0); Imm Gran Abs Auto 0.02 X10*3/uL (0.00-0.03); Imm Gran Pct Auto 0.3 % (0.0-0.4); Lymphocytes Absolute Auto 2.7 X10*3/uL (1.2-4.9); Lymphocytes Percent Auto 36.1 % (20-40); Mean Corpuscular HGB Conc 33.3 g/dl (31.0-35.0); Mean Corpuscular Hemoglobin 29.4 pg (27.0-33.0); Mean Corpuscular Volume 88.3 fL (80.0-98.0); Mean Platelet Volume 9.7 fL (9.4-12.3); Monocytes Absolute Auto 0.4 X10*3/uL (0.1-1.2); Monocytes Percent Auto 5.3 % (2-11); Neutrophils Absolute Auto 4.2 x10*3/uL (2.0-8.3); Neutrophils Percent Auto 56.3 % (45-73); Platelet Count 262 X10*3/uL (160-400); Red Blood Count 4.18 X10*6/uL (4.20-5.50); Red Cell Distribution Width 12.6 % (11.0-16.0); White Blood Count 7.5 X10*3/uL (4.8-10.8)
[2023-05-14 17:12] LABS: INTERNATIONAL NORM RATIO 0.9 (0.9-1.1); Prothrombin Time 11.4 SEC (11.1-13.3)
[2023-05-14 17:27] LABS: Alanine Aminotransferase 9 U/L (0-31); Albumin Level 3.2 g/dL (3.5-5.0); Alkaline Phosphatase 103 U/L (39-117); Anion Gap 11 (12-20); Aspartate Amino Transferase 13 U/L (5-31); Bilirubin Total 0.3 mg/dL (0.0-1.0); Blood Urea Nitrogen 9 mg/dL (9-16); Calcium 9.3 mg/dL (8.4-10.2); Carbon Dioxide 25 mmol/L (22-29); Chloride 111 mmol/L (96-108); Creatinine Clr Calc Pharmacy 79.8; Estimated Glomerular Filt Rate > 60; Glucose Random 104 mg/dL (60-115); Potassium 4.2 mmol/L (3.3-5.1); Sodium 143 mmol/L (135-145); Total Protein 7.4 g/dL (6.5-8.0)
[2023-05-14 17:40] LABS: Troponin-I High Sensitivity < 2.7 ng/L (<3.5-17.0)
[2023-05-14 19:35] VITALS: BP 140/83; PULSE 62; RESP 21; TEMP 36.7; O2SAT 97
[2023-05-14 19:44] LABS: Appearance Urine Turbid; Color Urine Yellow; Glucose Urine UA Negative (Negative); Leukocyte Esterase Urine Negative (Negative); Nitrite Urine Negative (Negative); PH 5.5 (5.0-9.0); Specific Gravity - Urine 1.025 (1.005-1.025); UMIC TRIGGER UACC YES; Urine Blood Trace (Negative); Urine Ketones Trace mg/dL (Negative); Urine Protein Negative (Neg-Trace)
[2023-05-14 19:51] LABS: Bacteria Urine None Seen (None Seen); Hyaline Casts Urine 0-2 /LPF (0-2); Squamous Epithelial Cell Urine 0-2 /HPF (0-2); WBC Urine 0-5 /HPF (0-5)
[2023-05-14 20:19] VITALS: BP 140/73; PULSE 60; RESP 21; O2SAT 97
--- NOTE | 2023-05-14 20:23 | PC.NURSE ---
pt reporting 7/10 burning pain to left chest. states it radiates to LUE x 3 days now. says nothing makes it better or worse. has not tried any medications for pain at home. pt speaking clear full sentences in no apparent distress. vital signs updated. on cardiac monitor technician.. waiting to be seen by ED provider. call nava within reach.
[2023-05-14] MEDS: traMADoL HCL 50 MG TABLET PO (20:38)
== END 2023-05-14 20:42 | disposition home or self-care (01) ==
PROVIDERS: Registered Nurse Emergency; Emergency Provider Internal Medicine; PCP Internal Medicine
DX: R07.89 Other chest pain (principal); M79.602 Pain in left arm; F17.210 Nicotine dependence, cigarettes, uncomplicated; Z71.6 Tobacco abuse counseling; Z79.899 Other long term (current) drug therapy
CPT/HCPCS: 36415; 71046; 80053; 81001; 84484; 85025; 85610; 93005; 99283; 99285

== ENCOUNTER 2023-05-25 12:08 | Outpatient (AMB) | payer MEDICAID, SELFPAY ==
[2023-05-25 12:17] VITALS: BP 134/80; PULSE 77; BMI 36.4
--- NOTE | 2023-05-25 12:17 | MHC.OFFVIS ---
Intake Vital Signs 05/25/23 12:17 Height 5 ft 3 in Weight 205 lb 4.006 oz BMI 36.4 BP 134/80 Blood Pressure Location Lt brachial Position Sitting Pulse 77 Intake Visit Reasons: Follow up US abdomen results/abdominal pain Intake Note: Elaine presents in the office today in follow up of abdominal US. CC: Patient reports doing a lot of nausea and occasionally having diarrhea and other constipation. She also reports an episode of rectal bleeding. Denies other GI symptoms today. Route Inspector Required: Yes Accompanied by: Self / Same As Patient Allergies Penicillins Allergy (Mild, Verified 05/25/23 12:25) VAGINAL FUNGUS INFECTION lisinopril [LISINOPRIL] Allergy (Unknown, Verified 05/25/23 12:25) COUGH verapamil Allergy (Unknown, Verified 05/25/23 12:25) unknown hydrocodone [From VICODIN] Adverse Reaction (Unknown, Verified 05/25/23 12:25) STOMACH PAIN HPI Follow up US abdomen results/abdominal pain HPI Details Assessment & Plan (1) Irritable bowel syndrome with both constipation and diarrhea: ?Comment: Constipation seems to be the dominant process ?Code(s): K58.2 - Mixed irritable bowel syndrome ?Plan: Kiswahili #Juan Live She has been having pain in the LUQ, this started about 2 weeks ago and was constant for 2 days then was intermittent. It is a stabbing/squeezing pain in the LUQ but she also has pain under the umbilicus that is described as cramping like child . She is concerned because she says my liver was inflames 8? years ago and my pancreas as well. She received the senna and uses it intermittently with good results. She also continues on her Dexlant and creon. We will get labs and and US. ROV after US. (2) Post-cholecystectomy syndrome: ?Code(s): K91.5 - Postcholecystectomy syndrome (3) Erosive gastritis: ?Code(s): K29.60 - Other gastritis without bleeding (4) LUQ abdominal pain: ?Code(s): R10.12 - Left upper quadrant pain ? ? ? Orders: Orders Amylase Today K85.10 - Biliary a cute pancreatitis without necrosis o r infection, R10.1 2 - Left upper rea drant pain ? Comprehensive Met. Panel Today K85.10 - Biliary a cute pancreatitis without necrosis o r infection, R10.1 2 - Left upper rea drant pain ? Lipase Today K85.10 - Biliary a cute pancreatitis without necrosis o r infection, R10.1 2 - Left upper rea drant pain ? Complete Blood Cou nt Auto Diff Today K85.10 - Biliary a cute pancreatitis without necrosis o r infection, R10.1 2 - Left upper rea drant pain ? US abdomen complet e Today K85.10 - Biliary a cute pancreatitis without necrosis o r infection, R10.1 2 - Left upper rea drant pain ? Medications: Refilled sennosides (senna) ?1-2 tabs qhs ora lly bedtime;? 30 d ays 60 caps 6RF co nstipation ? ? dkengv-bqfynexz-xk ylase 24,000-76,00 0 -120,000 unit (C tata) ?? administe r with meals and/o r snacks 1 cap? PO QID 30 d ays 120 caps 6RF K58.9 - Irritable bowel syndrome wit hout diarrhea ? dexlansoprazole (D exilant) 60 mg? PO DAILY 90 days 90 caps 6RF C K29.60 - Other gas tritis without ble eding LABS: Laboratory Tests 02/08/23 02/08/23 05/14/23 09:11 09:11 16:53 WBC 7.5 Hgb 12.3 Hct 36.9 L MCV 88.3 MCH 29.4 Plt Count 262 Estimated GFR > 60 Total Bilirubin AST ALT Alkaline Phosphata se Amylase 74 Lipase 35 05/14/23 05/14/23 16:53 16:53 WBC Hgb Hct MCV MCH Plt Count Estimated GFR Total Bilirubin 0.3 AST 13 ALT 9 Alkaline Phosphata se 103 Amylase Lipase ULTRASOUND OF THE ABDOMEN 05/04/23 FINDINGS: PANCREAS: Normal. ABDOMINAL AORTA: The proximal, mid, and distal segments are normal in caliber. INFERIOR VENA CAVA: Visualized portions are normal. LIVER: Normal. The liver is normal in size. The liver contour is normal. Parenchymal echogenicity is normal. No focal hepatic lesion. There is no intrahepatic biliary duct dilatation seen. GALLBLADDER: Surgically absent. COMMON BILE DUCT: Normal in caliber measuring 1.1 cm in diameter. RIGHT KIDNEY: Normal. No hydronephrosis. No renal calculi or focal parenchymal lesions. The kidney measures 11.0 cm in maximum dimension. LEFT KIDNEY: Normal. No hydronephrosis. No renal calculi or focal parenchymal lesions. The kidney measures 9.0 cm in maximum dimension. SPLEEN: Normal. The spleen measures 8.3 cm in maximum dimension. FREE FLUID: None. US/US abdomen complete IMPRESSION: The gallbladder is surgically absent. Otherwise, unremarkable examination. BARIUM SWALLOW 05/08/23 IMPRESSION: 1. Transient laryngeal penetration identified on thick barium without gross glottic or subglottic aspiration. This cleared with subsequent throat clearing. 2. No hiatus hernia. Mild gastroesophageal reflux identified. 3. Mild presbyesophagus. Esophagus otherwise normal. 4. Normal-appearing stomach, duodenal bulb, and duodenum. TODAY'S VISIT Latvian # Dafne Sewell Her pain is in the right mid quad, NOT THE LUQ, so I misunderstood this at the last visit. IT is still there, but not all of the time. It usually occurs in the afternoons and is not associated with eating or moving her bowels. I will give a trial of bentyl to see if it is colon spasm, if this does not work likely back/ms pain. We review the barium swallow, and it shows presbyesophagus. She had some delay in the swallowing phase that cleared with subsequent swallows. Safe swallowing reviewed. She also will be seeing ENT for a laryngoscopy in the near future, likely a good idea. The studies for the RUQ pain are all unremarkable in terms of the labs and US. She was worried that it was her liver or pancreas but these all look good in terms of labs adn imaging. senna and uses it intermittently with good results. She also continues on her Dexlant and creon. ROV 6 weeks. [facility] Medical History (Updated 06/07/23 @ 17:10 by JEB Olsen) Gallstone pancreatitis Palpitations Fibromyalgia Depression Glaucoma HTN (hypertension) Surgical History H/O colonoscopy History of tubal ligation Hx of carpal tunnel repair Hx of cholecystectomy Hx of knee surgery Family History Father Kidney disease Mother CVD (cardiovascular disease) Social History Alcohol intake: never Patient Tobacco Use Status: Current everyday Tobacco user Cigarette Packs Per Day: 0.5 Cigarettes Per Day: 10 Years Smoked: 30 Review of Systems Const Denies fatigue, Denies fever(s), Denies night sweats, Denies poor appetite and Denies weight loss Eyes Details: glasses Reports requires corrective lenses ENT Reports Normal hearing present, Denies dental pain, Reports dysphagia, Denies hearing loss, Denies mouth pain, Denies odynophagia, Denies throat swelling, Denies tongue swelling and Reports other (Dentition adequate) Card Reports no additional complaints Resp Reports no additional complaints GI Denies abdominal pain, Denies melena, Denies bloating, Denies hematochezia, Reports constipation, Denies GI cramping, Reports dysphagia, Denies excessive flatus, Denies early satiety, Reports heartburn, Denies diarrhea, Denies nausea, Denies odynophagia, Denies vomiting and Denies hematemesis Skin/Breast Denies pruritus, Denies lesions, Denies rash and Denies jaundice Neuro Reports Normal hearing present and Denies Abnormal speech present Endo Denies fatigue Aller/Immun Denies throat swelling and Denies tongue swelling Physical Exam Vital Signs: Last Vital Signs Pulse 77 05/25/23 12:17 BP 134/80 05/25/23 12:17 BMI result Body Mass Index 36.4 Const General: cooperative, no acute distress, well developed and well groomed Nutritional Appearance: well nourished and obese Orientation/consciousness: oriented to person, oriented to place and oriented to time Limitations: language barrier HEENT Head: Yes normocephalic and Yes atraumatic Eyes General: appearance normal, both eyes and all related structures Pupils: Equal, round and reactive pupils present Neck Neck: Yes normal visual inspection and Yes no lymphadenopathy Thyroid: Thyroid normal Resp Effort & Inspection: normal respiratory effort and able to speak in complete sentences Auscultation: clear to auscultation bilaterally Cardio Rate: regular rate Rhythm: regular rhythm Heart sounds: Normal, physiologic split S2 sound present Peripheral pulses: radial pulses present and posterior tibial pulses present GI Inspection: No distended, No Abdominal panniculus present and Yes obesity Palpation (GI): Soft to palpation, nontender, no guarding, not rigid and No hepatosplenomegaly present Percussion: Yes normal to percussion Auscultation: normal bowel sounds Rectal Exam - Female: deferred Skin General skin exam: no rashes or lesions noted, turgor normal, skin not dry, no jaundice, No spider nevi and no striae Rashes: no rashes Nails: normal Neuro General: oriented to person, oriented to place and oriented to time Cranial nerves: Yes Equal, round and reactive pupils present and Yes Normal hearing present Speech: No Abnormal speech present Extrem General: Yes normal to inspection, No clubbing, No cyanosis and No edema Psych Appearance: grossly normal and well kempt Mental Status: mental status grossly normal Speech and movement: Normal speech and movement present Affect: normal affect Attitude: cooperative Thought process: Normal thought process present and not confabulating Thought content: Normal thought content present Insight: Limited insight present (Psych) Judgement: Limited judgement present (Psych) Assessment & Plan Assessment & Plan (1) Right sided abdominal pain: Code(s): R10.9 - Unspecified abdominal pain Plan: Latvian # Dafne Live Her pain is in the right mid quad, NOT THE LUQ, so I misunderstood this at the last visit. IT is still there, but not all of the time. It usually occurs in the afternoons and is not associated with eating or moving her bowels. I will give a trial of bentyl to see if it is colon spasm, if this does not work likely back/ms pain. We review the barium swallow, and it shows presbyesophagus. She had some delay in the swallowing phase that cleared with subsequent swallows. Safe swallowing reviewed. She also will be seeing ENT for a laryngoscopy in the near future, likely a good idea. The studies for the RUQ pain are all unremarkable in terms of the labs and US. She was worried that it was her liver or pancreas but these all look good in terms of labs adn imaging. senna and uses it intermittently with good results. She also continues on her Dexlant and creon. ROV 6 weeks. (2) Irritable bowel syndrome with both constipation and diarrhea: Comment: Constipation seems to be the dominant process Code(s): K58.2 - Mixed irritable bowel syndrome (3) Post-cholecystectomy syndrome: Code(s): K91.5 - Postcholecystectomy syndrome (4) Presbyesophagus: Code(s): K22.89 - Other specified disease of esophagus Medications: New dicyclomine 20 mg PO QID 120 tabs 1RF 30 days dicyclomine pt had surgery to correct glaucoma 20 mg PO QID 120 tabs 1RF 30 days Coding Level of Care Code Est Pt Level 3 (31102) Diagnoses Right sided abdominal pain R10.9 Irritable bowel syndrome with both constipation and diarrhea K58.2 Post-cholecystectomy syndrome K91.5 Presbyesophagus K22.89
== END 2023-05-25 13:23 | disposition home or self-care (01) ==
PROVIDERS: PCP Internal Medicine; Visit Provider Nurse Practitioner
DX: R10.9 Unspecified abdominal pain (principal); K58.2 Mixed irritable bowel syndrome; K91.5 Postcholecystectomy syndrome; K22.89 Other specified disease of esophagus
CPT/HCPCS: 99213

== ENCOUNTER → 2023-05-25 12:08 | Outpatient (BNVA) | payer MEDICAID, SELFPAY | PROVIDERS: PCP Internal Medicine; Visit Provider Nurse Practitioner | DX: K58.2 Mixed irritable bowel syndrome (principal); K91.5 Postcholecystectomy syndrome; K22.89 Other specified disease of esophagus; R10.9 Unspecified abdominal pain | CPT/HCPCS: 99212 ==

== ENCOUNTER 2023-06-26 18:56 | Outpatient (REF) | payer MEDICAID, SELFPAY ==
[2023-06-27 12:58] LABS: BV Int Neg Control Negative (Negative); BV Int Pos Control Positive (Positive)
[2023-06-28 15:54] LABS: C. trachomatis RNA TMA NOT DETECTED (NOT DETECTED); N. gonorrhoeae RNA TMA NOT DETECTED (NOT DETECTED)
== END 2023-06-26 18:57 | disposition home or self-care (01) ==
LOC: HO.HHCLNP 18:56
PROVIDERS: Visit Provider Internal Medicine
DX: N76.0 Acute vaginitis (principal)
CPT/HCPCS: 87480; 87491; 87510; 87591; 87660

== ENCOUNTER 2023-07-12 15:26 | Outpatient (REF) | payer MEDICAID, SELFPAY ==
--- NOTE | ~2023-07-12 | XR_ITS ---
EXAMINATION: XR CHEST CLINICAL INFORMATION: Cough. COMPARISON: 05/14/2023 TECHNIQUE: 2 views of the chest were obtained. FINDINGS: The lungs are well expanded. No focal consolidation. No pleural effusion. Cardiac silhouette is unchanged. XR/XR chest 2V IMPRESSION: No acute abnormality.
== END 2023-07-12 15:27 | disposition home or self-care (01) ==
LOC: HO.HHCX 15:26
PROVIDERS: Visit Provider Internal Medicine
DX: R05.3 Chronic cough (principal)
CPT/HCPCS: 71046

== ENCOUNTER 2023-08-23 | Outpatient (REF) | payer MEDICAID, SELFPAY ==
[2023-08-31 03:48] LABS: HPV mRNA E6/E7 rflx Not Detected (Not Detected)
== END 2023-08-23 00:01 ==
LOC: HO.HHCLNP
PROVIDERS: Visit Provider Advanced Practice Midwife
DX: Z12.4 Encounter for screening for malignant neoplasm of cervix (principal); Z11.51 Encounter for screening for human papillomavirus (HPV); N95.0 Postmenopausal bleeding
CPT/HCPCS: 87624; 88142

== ENCOUNTER 2023-08-23 14:15 | Outpatient (REF) | payer MEDICAID, SELFPAY ==
[2023-08-24 07:12] LABS: Syphilis Screen Nonreactive (Nonreactive)
== END 2023-08-23 14:16 | disposition home or self-care (01) ==
LOC: HO.HHCL 14:15
PROVIDERS: Visit Provider Advanced Practice Midwife
DX: N76.6 Ulceration of vulva (principal)
CPT/HCPCS: 36415; 86695; 86696; 86780; 87624; 88142

== ENCOUNTER 2023-09-24 14:55 | Outpatient (REF) | payer MEDICAID, SELFPAY ==
--- NOTE | ~2023-09-24 | US_ITS ---
EXAMINATION: US PELVIS CLINICAL INFORMATION: Postmenopausal bleeding COMPARISON: Pelvic ultrasound 12/15/2015, CT scan abdomen and pelvis 05/13/2019 TECHNIQUE: Ultrasound of the pelvis is performed using both transabdominal and transvaginal transducers along with Doppler. Transvaginal imaging is performed due to inadequate visualization transabdominally. FINDINGS: Uterus: The uterus is anteverted and measures 6.1 x 3.5 x 5.1 cm. No convincing evidence of focal fibroid. The endometrial thickness is 0.2 cm Adnexa: Both ovaries are visualized. There is normal color flow to the adnexa. There is no ovarian torsion. There is no pelvic ascites or fluid collection. Right ovary measures 1.9 x 2.0 x 2.4 cm. Volume 4.8 mL. Left ovary measures 3.1 x 2.1 x 1.7 cm. Volume 3.2 mL. US/US pelvic and transvaginal IMPRESSION: 1. Normal endometrial stripe. 2. Normal ovaries.
--- NOTE | ~2023-09-24 | MM_ITS ---
EXAMINATION: MM SCREENING DIGITAL BREAST TOMOSYNTHESIS, BILATERAL CLINICAL INFORMATION: Screening. Asymptomatic. COMPARISON: Mammography: This study is compared with prior exams dating back to 2016. TECHNIQUE: Digital breast tomosynthesis is performed in both the craniocaudal and mediolateral oblique views along with computer-aided detection (CAD). Synthesized 2D images are generated from the tomosynthesis. FINDINGS: There are scattered areas of fibroglandular density (ACR BI-RADS breast composition Category b). There are no significant masses, abnormal calcifications, or other abnormalities. MM/MM tomosynthesis screening BI IMPRESSION: No mammographic evidence of malignancy. ASSESSMENT: BI-RADS BI-RADS 1 - Negative RECOMMENDATION: Routine annual mammography screening. 1 year F/U This examination should not preclude the clinical evaluation of a suspicious palpable abnormality. This patient's information was entered into a reminder system with a target due date for their next mammogram.
== END 2023-09-24 14:56 | disposition home or self-care (01) ==
LOC: HO.US 14:55
PROVIDERS: PCP Internal Medicine; Visit Provider Advanced Practice Midwife
DX: Z12.31 Encounter for screening mammogram for malignant neoplasm of breast (principal); N95.0 Postmenopausal bleeding
CPT/HCPCS: 76830; 76856; 77063; 77067

== ENCOUNTER 2023-09-24 15:00 | Outpatient (REF) | payer MEDICAID, SELFPAY ==
--- NOTE | ~2023-09-24 | XR_ITS ---
EXAMINATION: XR STERNOCLAVICULAR JOINTS CLINICAL INFORMATION: Right sternoclavicular joint deformity. COMPARISON: None available. TECHNIQUE: AP and oblique views of the sternoclavicular joints. FINDINGS: Alignment of the sternoclavicular joints is normal and symmetric. The clavicle is intact. No fracture. Bones and soft tissues are normal. XR/XR sternoclavicular joint BI IMPRESSION: Normal sternoclavicular joints.
== END 2023-09-24 15:01 | disposition home or self-care (01) ==
LOC: HO.XRAY 15:00
PROVIDERS: Visit Provider Internal Medicine
DX: Z13.89 Encounter for screening for other disorder (principal)
CPT/HCPCS: 71130

== ENCOUNTER → 2023-09-24 16:15 | Outpatient (BNV) | payer MEDICAID, SELFPAY | PROVIDERS: PCP Internal Medicine; Visit Provider Radiology Diagnostic Radiology | DX: Z12.31 Encounter for screening mammogram for malignant neoplasm of breast (principal) | CPT/HCPCS: 77063; 77067 ==

== ENCOUNTER 2023-10-11 12:06 | Outpatient (REF) | payer MEDICAID, SELFPAY ==
[2023-10-11 14:02] LABS: TSH reflex Free T4 1.76 uIU/mL (0.32-4.0)
== END 2023-10-11 12:07 | disposition home or self-care (01) ==
LOC: HO.HHCL 12:06
PROVIDERS: Visit Provider Internal Medicine
DX: L65.9 Nonscarring hair loss, unspecified (principal)
CPT/HCPCS: 36415; 84443

== ENCOUNTER 2023-11-07 12:52 | Outpatient (REF) | payer MEDICAID, SELFPAY ==
--- NOTE | ~2023-11-07 | US_ITS ---
EXAMINATION: US RETROPERITONEAL LIMITED (RENAL ONLY) CLINICAL INFORMATION: Hematuria. Flank pain. COMPARISON: Ultrasound abdomen complete 05/03/2023. CT abdomen and pelvis 06/06/2019. Renal ultrasound 05/23/2016. TECHNIQUE: Real-time imaging of the kidneys. FINDINGS: RIGHT KIDNEY: 10.1 x 4.1 x 5.2 cm (SAG x AP x TRV). The kidney is normal in size, contour, and echogenicity. Renal cortical thickness is normal. No calculi or focal parenchymal lesions. No hydronephrosis. LEFT KIDNEY: 9.5 x 4.2 x 5.5 cm (SAG x AP x TRV). The kidney is normal in size, contour, and echogenicity. Renal cortical thickness is normal. No calculi or focal parenchymal lesions. No hydronephrosis. US/US renal BI IMPRESSION: Normal-appearing kidneys
== END 2023-11-07 12:53 | disposition home or self-care (01) ==
LOC: HO.US 12:52
PROVIDERS: PCP Internal Medicine; Visit Provider Internal Medicine
DX: R31.29 Other microscopic hematuria (principal)
CPT/HCPCS: 76775

== ENCOUNTER 2023-11-19 12:47 | Outpatient (AMB) | payer MEDICAID, SELFPAY ==
[2023-11-19 14:12] VITALS: BP 136/72; BMI 36.3
--- NOTE | 2023-11-19 14:12 | MHC.OFFVIS ---
Intake Vital Signs 11/19/23 14:12 Height 5 ft 3 in Weight 205 lb BMI 36.3 BP 136/72 Intake Visit Reasons: uterine prolapse/PCP Referral/DO NOT RS Loan Officer Assistant Required: Yes Loan Officer Assistant Language: Marriage And Family Therapist Name: Guadalupe Mae Information Interpreted: non-clinical & clinical Social Media Assistant: Social Media Assistant Present (Guadalupe) Allergies Penicillins Allergy (Mild, Verified 11/19/23 14:15) VAGINAL FUNGUS INFECTION lisinopril [LISINOPRIL] Allergy (Unknown, Verified 11/19/23 14:15) COUGH verapamil Allergy (Unknown, Verified 11/19/23 14:15) unknown hydrocodone [From VICODIN] Adverse Reaction (Unknown, Verified 11/19/23 14:15) STOMACH PAIN Is last menstrual period known: No Post menopausal: Yes HPI HPI Comments History of Present Illness Details Presenting complaining of bulge per vagina over the last few months associated with urinary frequency, leakage of urine upon coughing, laughing or lifting heavy object PFSH Medical History Gallstone pancreatitis Palpitations Fibromyalgia Depression Glaucoma HTN (hypertension) Surgical History H/O colonoscopy History of tubal ligation Hx of carpal tunnel repair Hx of cholecystectomy Hx of knee surgery Family History Father Kidney disease Mother CVD (cardiovascular disease) Colon cancer Social History Alcohol intake: never Patient Tobacco Use Status: Current everyday Tobacco user Cigarette Packs Per Day: 0.5 Cigarettes Per Day: 10 Years Smoked: 30 Female Reproductive History Menstrual Age of Menarche: 9 control method: permanent sterilization Total pregnancies: 7 Full term: 4 Number of Living Children: 4 Ab spontaneous: 3 Date of last pap smear: 08/24/23 Review of Systems Const All systems reviewed & are unremarkable except as noted in HPI and below Physical Exam Vital Signs: Last Vital Signs BP 136/72 11/19/23 14:12 BMI result Body Mass Index 36.3 General: Yes no CVA tenderness External Female Exam: normal external appearance and normal appearance of the urethra Speculum Exam - Vagina: normal appearance of the vagina, normal palpation, no lesions, no masses and other (Mild cystocele central and paravaginal defect) Speculum Exam - Cervix: normal appearance of the cervix, normal palpation, no lesions, no masses and nontender Bimanual exam- vagina & uterus: normal bimanual exam, normal palpation, uterine size normal, normal palpation, uterine shape normal, No Cervical tenderness present, non-tender and other (Moderate uterine prolapse) Bimanual Exam- Adnexa, other: normal adnexae Back/Spine/Pelvis Back: no CVA tenderness Assessment & Plan Assessment & Plan (1) Cystocele with uterine prolapse: Comment: And urine incontinence Code(s): N81.4 - Uterovaginal prolapse, unspecified Plan: Discussed with the patient options of treatment including expectant management, pessary or surgical treatment, the patient elected to proceed with surgical management. Will refer to Urogynecology . All questions answered, the patient verbalized understanding (2) Urine incontinence: Code(s): R32 - Unspecified urinary incontinence Plan: Discussed with the patient the different types of Urine incontinence, stress urinary incontinence, intrinsic sphincter deficiency, overactive bladder and its work up. We will refer to Urogynecology. All questions answered, the patient verbalized understanding. Orders: Referrals Urogynecology Referral N81.4 - Uterovaginal prolapse, unspecified, R32 - Unspecified urinary incontinence Coding Level of Care Code Est Pt Prev Care 40-64y(15844) Diagnoses Cystocele with uterine prolapse N81.4 Urine incontinence R32
== END 2023-11-19 14:59 | disposition home or self-care (01) ==
LOC: HO.HWS 12:47
PROVIDERS: PCP Internal Medicine; Visit Provider Obstetrics & Gynecology
DX: N81.4 Uterovaginal prolapse, unspecified (principal); R32 Unspecified urinary incontinence
CPT/HCPCS: 99203

== ENCOUNTER → 2023-11-19 12:47 | Outpatient (BNVA) | payer MEDICAID, SELFPAY | PROVIDERS: PCP Internal Medicine; Visit Provider Obstetrics & Gynecology | DX: N81.4 Uterovaginal prolapse, unspecified (principal); R32 Unspecified urinary incontinence | CPT/HCPCS: 99202 ==

== ENCOUNTER 2023-11-30 12:58 | Outpatient (AMB) | payer MEDICAID, SELFPAY ==
--- NOTE | 2023-11-30 13:00 | MHC.OFFVIS ---
Intake Intake Visit Reasons: Microscopic hematuria Intake Note: New Patient presents for initial visit for microscopic hematuria Urology Medications: none Blood Thinner: none Talent Consultant Required: Yes Talent Consultant Name: CATY CORDONJONAHLeigh Accompanied by: Unknown Allergies Penicillins Allergy (Mild, Verified 11/30/23 13:45) VAGINAL FUNGUS INFECTION lisinopril [LISINOPRIL] Allergy (Unknown, Verified 11/30/23 13:45) COUGH verapamil Allergy (Unknown, Verified 11/30/23 13:45) unknown hydrocodone [From VICODIN] Adverse Reaction (Unknown, Verified 11/30/23 13:45) STOMACH PAIN Medication List - Last Reconciled 11/30/23 by CALI Hidalgo- albuterol sulfate 90 mcg/actuation (ProAir HFA) 2 puffs inhalation Q4H PRN amlodipine 10 mg PO DAILY blood pressure test kit-large As directed buspirone 10 mg PO TID cholecalciferol (vitamin D3) (Vitamin D3) 50 mcg PO DAILY clonazepam 1 mg PO TID PRN clotrimazole 1% appl topical cyclobenzaprine 5 mg PO BEDTIME dexlansoprazole (Dexilant) 60 mg PO DAILY 90 days dicyclomine 20 mg PO QID 30 days estradiol 0.01%(0.1mg/gram) 1 g vaginal 2XW fluticasone propionate 50 mcg/actuation 1 spray intranasal DAILY gabapentin 100 mg PO DAILY hydroxyzine HCl 25 mg PO BID lidocaine 5% patches topical bstiyr-htakaexw-lyavudb 24,000-76,000 -120,000 unit (Creon) 1 cap PO QID 30 days loratadine 10 mg PO DAILY losartan 100 mg PO DAILY ondansetron HCl 4 mg PO BID-TID PRN 1 day sennosides (senna) 1-2 tabs qhs orally bedtime; 30 days tramadol 50 mg PO Q6H PRN valacyclovir 500 mg PO BID PRN varenicline 1 mg PO BID zolpidem 10 mg PO BEDTIME PRN HPI HPI Comments History of Present Illness Details Elaine is a very pleasant 53-year-old Fijian-speaking female patient of Dr. Long who was accompanied by her daughter at today's office visit. She has a past medical history of palpitations, fibromyalgia, depression, glaucoma, and hypertension. She presents to the office today as a new patient for microscopic hematuria. In discussion with the patient today she reports a longstanding history of smoking since the age of [age] years old in smokes approximately half a pack of cigarettes per day. She reports having followed up with [employer] at which time microscopic hematuria was noted and recommendations were made for urology referral for further assessment evaluation. Discussed at length potential causes of microscopic hematuria. Discussed further microscopic hematuria workup in the setting of nicotine dependence verses surveillance monitoring. In office urinalysis today with no microscopic hematuria noted. When asked she does report stress urinary incontinence. She otherwise denies nocturia, dysuria, foul smelling urine, changes to urinary stream, flank pain, fever, and or chills. Discuss trial of medications verses pelvic floor therapy. She otherwise offers no other issues or concerns at this time. [facility] Medical History Gallstone pancreatitis Palpitations Fibromyalgia Depression Glaucoma HTN (hypertension) Surgical History H/O colonoscopy History of tubal ligation Hx of carpal tunnel repair Hx of cholecystectomy Hx of knee surgery Family History Father Kidney disease Mother CVD (cardiovascular disease) Colon cancer Social History Alcohol intake: never Patient Tobacco Use Status: Current everyday Tobacco user Cigarette Packs Per Day: 0.5 Cigarettes Per Day: 10 Years Smoked: 30 Female Reproductive History Menstrual Age of Menarche: 9 Review of Systems Const Reports no additional complaints Eyes Reports no additional complaints ENT Reports no additional complaints Card Reports as per HPI Resp Reports no additional complaints GI Details: Patient with a history of gallstone pancreatitis Reports as per HPI Musc Reports no additional complaints Neuro Reports no additional complaints Psych Reports as per HPI Endo Reports no additional complaints Jhonathan/Lymph Reports no additional complaints Aller/Immun Reports no additional complaints Physical Exam Const General: cooperative, healthy appearing, comfortable, no acute distress, well developed, alert and awake Nutritional Appearance: overweight Orientation/consciousness: patient oriented x3 Limitations: no limitations HEENT Head: Yes normal to inspection, Yes normocephalic and Yes atraumatic Ears: hearing grossly normal bilaterally Eyes General: appearance normal, both eyes and all related structures Neck Neck: Yes normal visual inspection and Yes trachea midline Chest Chest palpation & inspection: normal inspection of the chest Resp Effort & Inspection: normal respiratory effort and able to speak in complete sentences Cardio Rate: regular rate GI Inspection: Yes normal to inspection General: Yes no CVA tenderness Back/Spine/Pelvis Back: no CVA tenderness Skin General skin exam: no rashes or lesions noted Neuro General: patient oriented x3 Extrem General: Yes normal to inspection Psych Appearance: grossly normal and well kempt Mental Status: mental status grossly normal Speech and movement: Normal speech and movement present and Clear speech present Affect: normal affect Attitude: cooperative Thought process: Normal thought process present Thought content: Normal thought content present Insight: Fair insight present (Psych) Judgement: Fair judgement present (Psych) Results AMB Urinalysis, Automated UA Leukoctes 15 Pelon/uL Last Edit by [employer] on 11/30/23 13:32 UA Nitrite Negative Last Edit by [employer] on 11/30/23 13:32 UA Urobilinogen 0.2 mg/dL Last Edit by [employer] on 11/30/23 13:32 UA Protein 30 mg/dL Last Edit by [employer] on 11/30/23 13:32 UA pH 5.5 Last Edit by [employer] on 11/30/23 13:32 UA Blood 0 Marquise/uL Last Edit by [employer] on 11/30/23 13:32 UA Specific Viola 1.030 Last Edit by [employer] on 11/30/23 13:32 UA Ketone Positive Last Edit by [employer] on 11/30/23 13:32 UA Bilirubin 1 mg/dL Last Edit by [employer] on 11/30/23 13:32 UA Glucose 0 mg/dL Last Edit by [employer] on 11/30/23 13:32 Results Reviewed Results Reviewed: Laboratory Last Values Urine pH (Auto) 5.5 11/30/23 13:03 Specific Viola (Auto) 1.030 11/30/23 13:03 Urine Protein (Auto) 30 mg/dL 11/30/23 13:03 Glucose (UA)(Auto) 0 mg/dL 11/30/23 13:03 Urine Ketones (Auto) Positive 11/30/23 13:03 Urine Blood (Auto) 0 Marquise/uL 11/30/23 13:03 Urine Nitrite (Auto) Negative 11/30/23 13:03 Urine Bilirubin (Auto) 1 mg/dL 11/30/23 13:03 Urine Urobilinogen (Auto) 0.2 mg/dL 11/30/23 13:03 Leukocyte Esterase (Auto) 15 Pelon/uL 11/30/23 13:03 Assessment & Plan Assessment & Plan (1) Nicotine dependence: Code(s): F17.200 - Nicotine dependence, unspecified, uncomplicated (2) Microscopic hematuria: Code(s): R31.29 - Other microscopic hematuria (3) Stress incontinence: Code(s): N39.3 - Stress incontinence (female) (male) Plan In office urinalysis results reviewed with the patient today; as noted above; unable to send for urine cytology as sample is not enough; discussed old obtaining urine cytology when obtaining BUN and creatinine for imaging. Will obtain CT urogram for further assessment evaluation. Discussed at length potential causes of microscopic hematuria as well as stress incontinence. Discussed at length further treatment options for microscopic hematuria with CT urogram, cytology, in office cystoscopy versus surveillance monitoring Discussed further treatment options for stress urinary incontinence with pelvic floor therapy versus medications; patient states she will think about this. Discussed, educated, and stressed the importance of drinking plenty of water daily. Discussed and stressed the importance of limiting/quitting nicotine dependence for overall health and well-being Follow-up in office cystoscopy with imaging and labs to be completed prior; or sooner with any issues, concerns, and or questions. Orders: Orders CT urogram Today F17.200 - Nicotine dependence, unspecified, uncomplicated, R31.0 - Gross hematuria, R31.29 - Other microscopic hematuria Creatinine Today R39.15 - Urgency of urination Blood Urea Nitrogen Today R39.15 - Urgency of urination AMB Urinalysis Automated Today Z13.9 - Encounter for screening, unspecified Urine Cytology Today F17.200 - Nicotine dependence, unspecified, uncomplicated, R31.29 - Other microscopic hematuria Medications: Discontinued tramadol Discontinued Reason: Patient Completed Course 50 mg PO Q6H PRN 20 tabs 0RF pain Patient Instructions: The patient had an opportunity to ask questions regarding the treatment plan. All questions were answered. Physical exam, labs, and imaging were discussed and reviewed in detail. As well as risks, benefits, and discussion of treatment choices. No major barriers to understanding were identified. The patient expressed understanding and agreement with the above treatment plan. The patient was made aware they should contact our office by phone for worsening of their current condition, the appearance of new symptoms, or with any questions or concerns. Compliance is encouraged with any medications and follow up testing that is ordered. It is a privilege to be allowed the opportunity to participate in? your urological care.? Again, if you have any questions or concerns If you have any questions or concerns please do not hesitate to contact me. The office is [phone]. This note is constructed using voice recognition software. While every effort has been made to ensure accuracy switchboard operator supervisor errors may have been included. Yours sincerely, ROSA Hidalgo Coding Level of Care Code New Pt Level 3 (31580) Diagnoses Nicotine dependence F17.200 Microscopic hematuria R31.29 Stress incontinence N39.3
== END 2023-11-30 13:44 | disposition home or self-care (01) ==
PROVIDERS: PCP Internal Medicine; Visit Provider Nurse Practitioner Family
DX: F17.200 Nicotine dependence, unspecified, uncomplicated (principal); R31.29 Other microscopic hematuria; N39.3 Stress incontinence (female) (male); Z13.9 Encounter for screening, unspecified
CPT/HCPCS: 99203

== ENCOUNTER → 2023-11-30 12:58 | Outpatient (BNVA) | payer MEDICAID, SELFPAY | PROVIDERS: PCP Internal Medicine; Visit Provider Nurse Practitioner Family | DX: R31.29 Other microscopic hematuria (principal); N39.3 Stress incontinence (female) (male); F17.210 Nicotine dependence, cigarettes, uncomplicated | CPT/HCPCS: 81003; 99212 ==

== ENCOUNTER 2024-02-28 14:38 | Emergency (ER) | payer MEDICAID, SELFPAY ==
--- NOTE | ~2024-02-28 | CT_ITS ---
EXAMINATION: CT CHEST WITHOUT CONTRAST CLINICAL INFORMATION: Right upper back/rib pain COMPARISON: Previous chest x-ray July 2023 TECHNIQUE: Multidetector volumetric CT imaging of the chest was done. Axial MIP volume rendering provided. Sagittal and coronal reformatted images were obtained. This CT examination was performed using dose optimization techniques as appropriate, variously including the following: *Automated exposure control *Adjustment of mA and/or kV according to patient size (this includes techniques or standardized protocols for targeted exams where dose is matched to indication/reason for exam; i.e. extremities or head) *Use of iterative reconstruction technique DLP: 328 mGy-cm FINDINGS: LUNGS: 2 mm peripheral or subpleural right lower lobe nodule adjacent to the major fissure axial image 251 series 7. 2 mm peripheral or subpleural left lower lobe nodule axial image 327 series 7. Lungs are otherwise clear. MEDIASTINUM: Enlarged anterior mediastinal lymph nodes, largest AP window lymph node measuring 1.4 cm in short axis. No other mediastinal or hilar adenopathy. Normal heart size. No pericardial effusion. CORONARY ARTERY CALCIFICATION: None visualized on this study. PLEURA: There is no pleural effusion. No pleural mass or thickening. AXILLA: No lymphadenopathy. UPPER ABDOMEN: Unremarkable. OSSEOUS STRUCTURES: Degenerative changes of the spine. No fracture or bone lesion. CT/CT chest wo IV con IMPRESSION: Enlarged anterior mediastinal lymph nodes. Infectious, inflammatory and neoplastic processes should be considered. Chest CT follow-up, PET/CT or tissue sampling should be considered. Small 2 mm bilateral pulmonary nodules. This may represent peripheral or subpleural lymph nodes. According to the UPDATED 2017 Fleischner Society recommendations, the advised follow-up imaging for less than 6 mm solid nodule: Low risk, no chest CT follow-up and high risk, optional chest CT follow-up in one year. Fleischner guidelines were followed.
--- NOTE | ~2024-02-28 | XR_ITS ---
EXAMINATION: XR SHOULDER, LEFT CLINICAL INFORMATION: History of fall COMPARISON: Chest radiograph, which includes shoulder in [id number], from 07/12/2023 TECHNIQUE: Three views of the left shoulder. FINDINGS: The humeral head is well positioned over the intact glenoid. Glenohumeral joint space is well-preserved: no arthritic deformity, fracture or subluxation. No calcium deposition within rotator cuff tendons. Acromioclavicular joint is normal. The subacromial space is normal. There are no osteophytes projecting from the undersurface of the acromioclavicular joint. No hook-shaped acromion, os acromiale or subacromial enthesophyte. No osseous findings that would predispose to a subacromial impingement disorder. The visualized portion of the left lung is normal. XR/XR shoulder LT min 2V IMPRESSION: Normal left shoulder. No acute fracture or malalignment.
--- NOTE | ~2024-02-28 | CT_ITS ---
EXAMINATION: CT ABDOMEN AND PELVIS WITH CONTRAST CLINICAL INFORMATION: Right upper quadrant/epigastric pain COMPARISON: Previous CT of the abdomen and pelvis from 2018 and abdominal ultrasound April 2023 TECHNIQUE: Multidetector volumetric images were obtained from the superior aspect of the liver through the pubic symphysis following administration 85 mL of Omnipaque 350 intravenous contrast. Sagittal and coronal reformatted images were obtained on the technologist's workstation. Oral contrast: Yes This CT examination was performed using dose optimization techniques as appropriate, variously including the following: *Automated exposure control *Adjustment of mA and/or kV according to patient size (this includes techniques or standardized protocols for targeted exams where dose is matched to indication/reason for exam; i.e. extremities or head) *Use of iterative reconstruction technique DLP: 725 mGy-cm FINDINGS: LUNG BASES: The visualized lung bases are unremarkable. LIVER, GALLBLADDER, AND BILIARY TREE: The liver is normal in size, shape, and attenuation. No focal hepatic lesion or intrahepatic biliary ductal dilatation is present. Gall bladder not seen. Mild extrahepatic biliary duct dilatation common bile duct measuring 1.2 cm. Common bile duct measured 1.1 cm April 2023 ultrasound. This may be normal postcholecystectomy.. PANCREAS: Unremarkable. SPLEEN: Unremarkable. ADRENAL GLANDS: Unremarkable. KIDNEYS AND URETERS: The kidneys are normal in size, shape, and attenuation. No hydronephrosis, hydroureter, or calculi seen. No perinephric stranding. BLADDER: Empty GASTROINTESTINAL TRACT: The small and large bowel are unremarkable. The appendix is unremarkable. ABDOMINAL WALL: No significant hernia is appreciated. LYMPH NODES: Normal. VASCULAR: Unremarkable. PELVIC VISCERA: Unremarkable. OSSEOUS STRUCTURES: Mild degenerative changes of the spine. CT/CT abdomen pelvis w IV con IMPRESSION: Mild dilatation of the common bile duct measuring 1.2 cm. Gallbladder not seen and has presumably been been removed. This may be a normal finding postcholecystectomy. Correlation with liver function tests recommended. Otherwise unremarkable exam. Fleischner guidelines were followed.
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
[2024-02-28 15:26] VITALS: BP 137/75; PULSE 90; RESP 16; TEMP 35.9; O2SAT 98; BMI 36.9
[2024-02-28 17:09] LABS: MANUAL DIFF FLAG NO
[2024-02-28 17:16] LABS: Basophils Absolute Auto 0.1 X10*3/uL (0.0-0.2); Basophils Percent Auto 0.7 % (0-2); Eosinophils Absolute Auto 0.2 X10*3/uL (0.0-0.4); Eosinophils Percent Auto 1.8 % (0-4); Hemoglobin 12.3 g/dl (12.0-16.0); Imm Gran Abs Auto 0.03 X10*3/uL (0.00-0.03); Imm Gran Pct Auto 0.3 % (0.0-0.4); Lymphocytes Absolute Auto 3.8 X10*3/uL (1.2-4.9); Lymphocytes Percent Auto 42.1 % (20-40); Mean Corpuscular HGB Conc 34.2 g/dl (31.0-35.0); Mean Corpuscular Hemoglobin 30.4 pg (27.0-33.0); Mean Corpuscular Volume 89.1 fL (80.0-98.0); Mean Platelet Volume 10.6 fL (9.4-12.3); Monocytes Absolute Auto 0.5 X10*3/uL (0.1-1.2); Neutrophils Absolute Auto 4.5 x10*3/uL (2.0-8.3); Neutrophils Percent Auto 50.1 % (45-73); Platelet Count 225 X10*3/uL (160-400); Red Blood Count 4.04 X10*6/uL (4.20-5.50); Red Cell Distribution Width 12.8 % (11.0-16.0); White Blood Count 8.9 X10*3/uL (4.8-10.8)
[2024-02-28 17:17] LABS: INTERNATIONAL NORM RATIO 0.9 (0.9-1.1); Prothrombin Time 10.4 SEC (11.1-13.3)
[2024-02-28 17:31] LABS: Alanine Aminotransferase 12 U/L (0-31); Albumin Level 3.8 g/dL (3.5-5.0); Alkaline Phosphatase 109 U/L (39-117); Anion Gap 14 (12-20); Aspartate Amino Transferase 24 U/L (5-31); Bilirubin Direct < 0.2 mg/dL (0.0-0.5); Bilirubin Total 0.1 mg/dL (0.0-1.0); Blood Urea Nitrogen 16 mg/dL (9-16); Calcium 9.3 mg/dL (8.4-10.2); Carbon Dioxide 23 mmol/L (22-29); Chloride 109 mmol/L (96-108); Creatinine Clr Calc Pharmacy 80.8; Estimated Glomerular Filt Rate > 60; Glucose Random 124 mg/dL (60-115); Lipase 36 U/L (8-78); Potassium 4.6 mmol/L (3.3-5.1); Sodium 141 mmol/L (135-145); Total Protein 8.2 g/dL (6.5-8.0)
[2024-02-28 18:05] VITALS: BP 129/58; PULSE 78; RESP 14; TEMP 36.7; O2SAT 99
[2024-02-28] MEDS: iohexoL 350 MG/ML 100 ML INFUS..BTL IV (18:07)
[2024-02-28] MEDS: 0.9 % Sodium Chloride 1,000 ML 999 ML IV (18:24)
[2024-02-28] MEDS: Ketorolac Tromethamine 15 MG/ML VIAL IVPUSH (19:17)
[2024-02-28 19:29] VITALS: BP 124/49; PULSE 72; RESP 17; TEMP 36.4; O2SAT 99
[2024-02-28 22:56] VITALS: BP 126/59; PULSE 78; RESP 16; TEMP 36.7; O2SAT 98
== END 2024-02-28 22:56 | disposition home or self-care (01) ==
PROVIDERS: Physician Assistant; Emergency Provider Internal Medicine; PCP Internal Medicine
DX: R59.9 Enlarged lymph nodes, unspecified (principal); S20.211A Contusion of right front wall of thorax, initial encounter; S40.812A Abrasion of left upper arm, initial encounter; S70.312A Abrasion, left thigh, initial encounter; S20.411A Abrasion of right back wall of thorax, initial encounter; V38.1XXA Passenger in three-wheeled motor vehicle injured in noncollision transport accident in nontraffic accident, initial encounter; Y93.89 Activity, other specified; Y92.414 Local residential or business street as the place of occurrence of the external cause; Y99.9 Unspecified external cause status
CPT/HCPCS: 36415; 71250; 73030; 74177; 80048; 80076; 83690; 85025; 85610; 96361; 96374; 99284; 99285; J1885; Q9967

== ENCOUNTER 2024-03-20 11:37 | Outpatient (REF) | payer MEDICAID, SELFPAY ==
[2024-03-20 13:26] LABS: MANUAL DIFF FLAG NO
[2024-03-20 13:30] LABS: Basophils Absolute Auto 0.1 X10*3/uL (0.0-0.2); Basophils Percent Auto 0.7 % (0-2); Eosinophils Absolute Auto 0.2 X10*3/uL (0.0-0.4); Hematocrit 36.5 % (37.0-47.0); Hemoglobin 12.5 g/dl (12.0-16.0); Imm Gran Abs Auto 0.02 X10*3/uL (0.00-0.03); Imm Gran Pct Auto 0.2 % (0.0-0.4); Lymphocytes Absolute Auto 3.2 X10*3/uL (1.2-4.9); Lymphocytes Percent Auto 37.7 % (20-40); Mean Corpuscular HGB Conc 34.2 g/dl (31.0-35.0); Mean Corpuscular Hemoglobin 30.4 pg (27.0-33.0); Mean Corpuscular Volume 88.8 fL (80.0-98.0); Mean Platelet Volume 10.2 fL (9.4-12.3); Monocytes Absolute Auto 0.5 X10*3/uL (0.1-1.2); Monocytes Percent Auto 5.3 % (2-11); Neutrophils Absolute Auto 4.6 x10*3/uL (2.0-8.3); Neutrophils Percent Auto 54.1 % (45-73); Platelet Count 281 X10*3/uL (160-400); Red Blood Count 4.11 X10*6/uL (4.20-5.50); Red Cell Distribution Width 12.9 % (11.0-16.0); White Blood Count 8.5 X10*3/uL (4.8-10.8)
[2024-03-20 13:34] LABS: INTERNATIONAL NORM RATIO 0.9 (0.9-1.1); Prothrombin Time 10.6 SEC (11.1-13.3)
[2024-03-20 13:37] LABS: Partial Thromboplastin Time 31.1 SEC (26.0-36.8)
[2024-03-20 14:36] LABS: Anion Gap 13 (12-20); Blood Urea Nitrogen 16 mg/dL (9-16); Calcium 9.2 mg/dL (8.4-10.2); Carbon Dioxide 23 mmol/L (22-29); Chloride 109 mmol/L (96-108); Estimated Glomerular Filt Rate > 60; Glucose Random 115 mg/dL (60-115); Potassium 3.6 mmol/L (3.3-5.1); Sodium 141 mmol/L (135-145)
== END 2024-03-20 11:38 | disposition home or self-care (01) ==
LOC: HO.HHCL 11:37
PROVIDERS: Visit Provider Internal Medicine Geriatric Medicine
DX: Z01.818 Encounter for other preprocedural examination (principal)
CPT/HCPCS: 36415; 80048; 85025; 85610; 85730

== ENCOUNTER 2024-04-07 13:36 | Outpatient (AMB) | payer MEDICAID, SELFPAY ==
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
[2024-04-07 13:41] VITALS: BP 140/78; PULSE 71; O2SAT 99; BMI 36.9
== END 2024-04-07 14:12 | disposition home or self-care (01) ==
PROVIDERS: PCP Internal Medicine; Referring Provider Nurse Practitioner Family; Visit Provider Nurse Practitioner Family
DX: J45.909 Unspecified asthma, uncomplicated (principal); R59.0 Localized enlarged lymph nodes; F17.200 Nicotine dependence, unspecified, uncomplicated
CPT/HCPCS: 99204

== ENCOUNTER → 2024-04-07 13:36 | Outpatient (BNVA) | payer MEDICAID, SELFPAY | PROVIDERS: PCP Internal Medicine; Referring Provider Nurse Practitioner Family; Visit Provider Nurse Practitioner Family | DX: J45.909 Unspecified asthma, uncomplicated (principal); R59.0 Localized enlarged lymph nodes; F17.210 Nicotine dependence, cigarettes, uncomplicated | CPT/HCPCS: 99212 ==

== ENCOUNTER 2024-06-12 08:08 | Outpatient (REF) | payer MEDICAID, SELFPAY ==
--- NOTE | ~2024-06-12 | CT_ITS ---
EXAMINATION: CT CHEST WITH CONTRAST CLINICAL INFORMATION: Follow-up mediastinal lymphadenopathy COMPARISON: February 28, 2020 TECHNIQUE: Multidetector volumetric CT imaging of the chest was obtained after the administration of 65 mL of Omnipaque 350 intravenous contrast without immediate adverse reactions. Axial MIP volume rendering provided. Sagittal and coronal reformatted images were obtained. This CT examination was performed using dose optimization techniques as appropriate, variously including the following: *Automated exposure control *Adjustment of mA and/or kV according to patient size (this includes techniques or standardized protocols for targeted exams where dose is matched to indication/reason for exam; i.e. extremities or head) *Use of iterative reconstruction technique DLP: 174 mGy-cm FINDINGS: LEAD TEACHER: Unremarkable LUNGS: There is stable fissure based right lower lobe 0.2 cm nodule, seen on image 118 series 6. The rest of lungs are clear and well expanded. Central airways are patent. MEDIASTINUM: There is stable anterior mediastinal lymphadenopathy with the largest measured 3.1 cm in the largest dimension. There is no hilar lymphadenopathy. Coronary artery calcifications are moderate. There is no pericardial effusion. PLEURA: There is no pleural effusion. No pleural mass or thickening. AXILLA: No lymphadenopathy. UPPER ABDOMEN: Unremarkable OSSEOUS STRUCTURES: Unremarkable. CT/CT chest w IV con IMPRESSION: Stable anterior mediastinal lymphadenopathy Fleischner guidelines were followed. Electronically signed by: Lukas Garcia MD 08/06/2024 08:23 AM [facility] [place]
[2024-06-12] MEDS: iohexoL 350 MG/ML 100 ML INFUS..BTL IV (08:54)
[2024-06-13 08:21] LABS: Creatinine POC 0.8 mg/dL (0.5-1.4); GFR POC > 60
== END 2024-06-12 08:09 | disposition home or self-care (01) ==
LOC: HO.CT 08:08
PROVIDERS: PCP Internal Medicine; Visit Provider Nurse Practitioner Family
DX: R59.0 Localized enlarged lymph nodes (principal)
CPT/HCPCS: 71260; 82565; Q9967

== ENCOUNTER 2024-06-13 10:59 | Outpatient (REF) | payer MEDICAID, SELFPAY ==
[2024-06-13 13:06] LABS: Urine Cytology See Pathology rpt
[2024-06-13 14:05] LABS: Alanine Aminotransferase 11 U/L (0-31); Albumin Level 3.8 g/dL (3.5-5.0); Alkaline Phosphatase 114 U/L (39-117); Anion Gap 11 (12-20); Aspartate Amino Transferase 14 U/L (5-31); Bilirubin Total 0.3 mg/dL (0.0-1.0); Blood Urea Nitrogen 11 mg/dL (9-16); Calcium 9.1 mg/dL (8.4-10.2); Carbon Dioxide 27 mmol/L (22-29); Chloride 109 mmol/L (96-108); Estimated Glomerular Filt Rate > 60; Glucose Random 114 mg/dL (60-115); Potassium 3.9 mmol/L (3.3-5.1); Sodium 143 mmol/L (135-145); Total Protein 7.4 g/dL (6.5-8.0)
== END 2024-06-13 11:00 | disposition home or self-care (01) ==
LOC: HO.HHCL 10:59
PROVIDERS: Nurse Practitioner Family; Referring Provider Nurse Practitioner Family; Visit Provider Internal Medicine
DX: F17.200 Nicotine dependence, unspecified, uncomplicated (principal); R31.29 Other microscopic hematuria; I10 Essential (primary) hypertension
CPT/HCPCS: 36415; 80053; 88112

== ENCOUNTER 2024-07-07 10:59 | Outpatient (AMB) | payer MEDICAID, SELFPAY ==
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
[2024-07-07 11:06] VITALS: BP 132/76; PULSE 85; O2SAT 98; BMI 37.5
== END 2024-07-07 11:30 | disposition home or self-care (01) ==
PROVIDERS: PCP Internal Medicine; Visit Provider Nurse Practitioner Family
DX: J45.909 Unspecified asthma, uncomplicated (principal); R59.0 Localized enlarged lymph nodes; F17.200 Nicotine dependence, unspecified, uncomplicated
CPT/HCPCS: 99213

== ENCOUNTER → 2024-07-07 10:59 | Outpatient (BNVA) | payer MEDICAID, SELFPAY | PROVIDERS: PCP Internal Medicine; Visit Provider Nurse Practitioner Family | DX: J45.909 Unspecified asthma, uncomplicated (principal); R91.1 Solitary pulmonary nodule; R59.0 Localized enlarged lymph nodes; F17.210 Nicotine dependence, cigarettes, uncomplicated | CPT/HCPCS: 99212 ==

== ENCOUNTER 2024-08-05 18:02 | Emergency (ER) | payer MEDICAID, SELFPAY ==
--- NOTE | 2024-08-05 | ECG_ITS ---
Test Reason : CHEST PRESSURE Blood Pressure : / mmHG Vent. Rate : 072 BPM Atrial Rate : 072 BPM P-R Int : 132 ms QRS Dur : 068 ms QT Int : 380 ms P-R-T Axes : 046 010 -08 degrees QTc Int : 416 ms Normal sinus rhythm Septal infarct , age undetermined Abnormal ECG When compared with ECG of 14-MAY-2023 16:56, Nonspecific T wave abnormality no longer evident in Anterolateral leads Referred By: Generic ED Physician Electronically Signed By:BRODERICK MITCHELL
[2024-08-05 18:07] VITALS: BP 147/73; PULSE 70; RESP 20; TEMP 37; O2SAT 98; BMI 34.3
[2024-08-05 18:26] LABS: MANUAL DIFF FLAG NO
[2024-08-05 18:34] LABS: Basophils Absolute Auto 0.1 X10*3/uL (0.0-0.2); Basophils Percent Auto 0.7 % (0-2); Eosinophils Absolute Auto 0.2 X10*3/uL (0.0-0.4); Eosinophils Percent Auto 2.3 % (0-4); Hemoglobin 12.5 g/dl (12.0-16.0); Imm Gran Abs Auto 0.02 X10*3/uL (0.00-0.03); Imm Gran Pct Auto 0.2 % (0.0-0.4); Lymphocytes Absolute Auto 3.7 X10*3/uL (1.2-4.9); Mean Corpuscular HGB Conc 33.8 g/dl (31.0-35.0); Mean Corpuscular Hemoglobin 29.3 pg (27.0-33.0); Mean Corpuscular Volume 86.9 fL (80.0-98.0); Mean Platelet Volume 9.6 fL (9.4-12.3); Monocytes Absolute Auto 0.4 X10*3/uL (0.1-1.2); Monocytes Percent Auto 4.5 % (2-11); Neutrophils Absolute Auto 3.9 x10*3/uL (2.0-8.3); Neutrophils Percent Auto 47.3 % (45-73); Platelet Count 269 X10*3/uL (160-400); Red Blood Count 4.26 X10*6/uL (4.20-5.50); Red Cell Distribution Width 12.9 % (11.0-16.0); White Blood Count 8.2 X10*3/uL (4.8-10.8)
[2024-08-05 18:36] LABS: INTERNATIONAL NORM RATIO 0.9 (0.9-1.1); Prothrombin Time 10.9 SEC (10.9-12.4)
[2024-08-05 18:43] LABS: Alanine Aminotransferase 14 U/L (0-31); Albumin Level 3.9 g/dL (3.5-5.0); Alkaline Phosphatase 114 U/L (39-117); Anion Gap 9 (12-20); Aspartate Amino Transferase 17 U/L (5-31); Bilirubin Total 0.2 mg/dL (0.0-1.0); Blood Urea Nitrogen 11 mg/dL (9-16); Calcium 9.3 mg/dL (8.4-10.2); Carbon Dioxide 29 mmol/L (22-29); Chloride 105 mmol/L (96-108); Creatinine Clr Calc Pharmacy 88.6; Estimated Glomerular Filt Rate > 60; Glucose Random 98 mg/dL (60-115); Potassium 3.9 mmol/L (3.3-5.1); Sodium 139 mmol/L (135-145); Total Protein 7.6 g/dL (6.5-8.0)
[2024-08-05 18:51] LABS: Troponin-I High Sensitivity < 2.7 ng/L (<3.5-17.0)
--- NOTE | 2024-08-05 20:30 | PC.NURSE ---
Addendum entered by Shanthi Scott RN 08/05/24 22:45: from 2 to 3 Original Note: Pt MIGUEL ANGEL changed to 2 from 2 after inital work up
== END 2024-08-06 00:11 | disposition left against medical advice (07) ==
LOC: HO.ED 08-06 00:04
PROVIDERS: Registered Nurse Emergency; Emergency Provider Emergency Medicine; PCP Internal Medicine
DX: R07.89 Other chest pain (principal); J45.909 Unspecified asthma, uncomplicated; Z53.21 Procedure and treatment not carried out due to patient leaving prior to being seen by health care provider; F17.200 Nicotine dependence, unspecified, uncomplicated
CPT/HCPCS: 36415; 80053; 84484; 85025; 85610; 93005; 99283

== ENCOUNTER → 2024-08-05 18:08 | Outpatient (BNV) | payer MEDICAID, SELFPAY | PROVIDERS: Emergency Provider Emergency Medicine; PCP Internal Medicine; Visit Provider Internal Medicine | DX: R94.31 Abnormal electrocardiogram [ECG] [EKG] (principal) | CPT/HCPCS: 93010 ==

== ENCOUNTER 2024-09-12 09:31 | Outpatient (AMB) | payer MEDICAID, SELFPAY ==
--- NOTE | 2024-09-12 09:43 | MHC.OFFVIS ---
Vital Signs 09/12/24 09:44 Height 5 ft 6 in Weight 219 lb 12.814 oz BMI 35.5 BP 134/70 Blood Pressure Location Lt brachial Position Sitting Pulse 70 Pulse Source Pulse Oximeter Pulse Oximetry (%) 99 Oxygen Delivery Method Room Air Intake Visit Reasons: FM Intake Note: Patient presents for follow up on Fibromylagia today. She saw Maureen Corcoran on 01/30/2022. [employer] Owner Name: [id number] Mina Allergies Penicillins Allergy (Mild, Verified 09/12/24 09:49) VAGINAL FUNGUS INFECTION lisinopril [LISINOPRIL] Allergy (Unknown, Verified 09/12/24 09:49) COUGH verapamil Allergy (Unknown, Verified 09/12/24 09:49) unknown Medication List - Last Reconciled 09/12/24 by Brigid West MD albuterol sulfate 90 mcg/actuation (Ventolin HFA) 2 puffs PO Q4H PRN amlodipine 10 mg PO DAILY beclomethasone dipropionate 40 mcg/actuation (Qvar RediHaler) 2 inhalations inhalation BID blood pressure test kit-large As directed cholecalciferol (vitamin D3) (Vitamin D3) 50 mcg PO DAILY clonazepam 1 mg PO TID PRN dexlansoprazole (Dexilant) 60 mg PO DAILY 90 days estradiol 0.01%(0.1mg/gram) 1 g vaginal 2XW fluticasone furoate 100 mcg/actuation (Arnuity Ellipta) 1 inh inhalation DAILY fluticasone propionate 50 mcg/actuation 1 spray intranasal DAILY hydroxyzine HCl 25 mg PO BID lidocaine 5% patches topical loratadine 10 mg PO DAILY losartan 100 mg PO DAILY minoxidil 2.5 mg PO QAM nicotine (polacrilex) 2 mg buccal Q2H sennosides (senna) 1-2 tabs qhs orally bedtime; 30 days valacyclovir 500 mg PO BID PRN zolpidem 10 mg PO BEDTIME PRN HPI Comments Details: Spoke with patient in [place] language Patient is a 53 y.o. female depression, hypertension who is here today for follow up of polyarticular osteoarthritis and fibromyalgia Interval History: Patient last seen 01/30/2022 with Luz Corcoran. At that time patient was complaining of widespread joint pain involving back, knees, shoulders and hands. There was no evidence of inflammatory disease or autoimmune disease at that time. She was given tramadol and referral to pain management as well as PT. Today still complains of widespread pain. Specifically she would like to address her bilateral knees and her back. 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 She estimates that she gets 6 hours of sleep at night and is taking ambien. Current Rheumatology Medication(s): [facility] Medical History (Updated 09/12/24 @ 10:50 by Brigid West MD) Bilateral primary osteoarthritis of knee Gallstone pancreatitis Palpitations Fibromyalgia Depression Glaucoma HTN (hypertension) Surgical History H/O colonoscopy History of tubal ligation Hx of carpal tunnel repair Hx of cholecystectomy Hx of knee surgery Family History Father Kidney disease Mother CVD (cardiovascular disease) Colon cancer Social History Alcohol intake: never Patient Tobacco Use Status: Current everyday Tobacco user Cigarette Packs Per Day: 0.5 Cigarettes Per Day: 10 Years Smoked: 30 Female Reproductive History Menstrual Age of Menarche: 9 Review of Systems Const Details: Review of Systems Constitutional: Denies fever, chills, weight loss ENT: Denies vision changes, eye pain or eye redness, dental caries, dry mouth GI: Denies nausea, vomiting, diarrhea, abdominal pain, change in BM Pulm: Denies SOB, PRASAD, hemoptysis, wheezing Cards: Denies chest pain, palpitations Skin: Denies Raynaud's, rash, nail changes, photosensitivity, 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 Well appearing. Difficulty rising from chair likely due to pain CHEST/RESPIRATORY SYSTEM Normal respiratory effort and able to speak in complete sentences. ?Clear to auscultation bilaterally. ?No crackles, rales, rhonchi, wheezes heard. CARDIAC SYSTEM Regular rate and rhythm. ?S1 and S2 heard no murmurs. 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 No deformities noted. ?No synovitis noted to the MCPs, PIPs or DIPs. ?No tenderness to palpation of these joints. Wrists: ?Full range of motion at the wrists without pain. ?No tenderness to palpation or synovitis noted to the wrists. Elbows: Full range of motion without pain. No tenderness, weakness, swelling, increased warmth or erythema. Shoulders: Decreased range of motion secondary to pain/muscle spasm in her trapezius. No tenderness, weakness, swelling, increased warmth or erythema. Hip bursa: Bilateral Tenderness to palpation Knees: ?Full range of motion. ?No tenderness, swelling, increased warmth or erythema.? Bilateral crepitations Ankles: Full range of motion. ?No tenderness, swelling, increased warmth or erythema.? Feet: ?Negative squeeze test. ?No tenderness to palpation or swelling of the MTPs. Tender points:? Tenderness to palpation of the bilateral trapezius, supraspinatus, greater trochanters, anterior costochondral junctions, bilateral gluteal areas, bilateral suboccipital muscle insertions. Patient is exquisitely tender to palpation of all of the paraspinal muscles as well SKIN Skin intact without rashes. Results Reviewed Results Reviewed: Laboratory Tests 12/16/18 02/05/19 08/05/24 15:35 16:45 18:21 WBC 8.2 RBC 4.26 Hgb 12.5 Hct 37.0 Plt Count 269 Sodium 139 Potassium 3.9 Chloride 105 Carbon Dioxide 29 BUN 11 Creatinine 0.86 Rheumatoid Factor < 15.0 Cycl Citrul Peptide IgG <16 MAURICE Screen Positive H MAURICE Titer 1:40 H XR C spine, T spine and L spine 07/2021 FINDINGS: CERVICAL SPINE: Alignment. Vertebral body heights are maintained. Disc spaces are well-maintained. No evidence for spinal facet arthropathy. The neural foramina are widely patent bilaterally. THORACIC SPINE: Alignment is unremarkable. Bridging osteophytosis is present at T6-T7 and T7-T8 with minimal osteophytosis at other levels. Disc spaces are maintained. Vertebral body heights are maintained. The paravertebral soft tissues are normal. LUMBOSACRAL SPINE: There are 4 lumbar type vertebral bodies with presumed bilateral sacralization of L5. Disc spaces are maintained. Vertebral body heights are maintained. Alignment is normal. Facet arthropathy is noted in the lower lumbar spine. Sacroiliac joints are normal. The paravertebral soft tissues are normal. Assessment & Plan Assessment & Plan (1) Fibromyalgia: Code(s): M79.7 - Fibromyalgia Category: Medical Plan: #Fibromyalgia Patient with fibromyalgia but continues to have widespread pain. Has tried Lyrica, gabapentin, Cymbalta, amitriptyline and her insurance did not approve Savella. Discussed at length with patient about fibromyalgia and the chronicity of the disease. Showed her YouTube video for her to do stretches in the morning and in the evening We will prescribe baclofen for muscle tension and represcribe tramadol Plan - Baclofen 5mg at night - Tramadol 100mg tid prn - Daily stretches (2) Bilateral primary osteoarthritis of knee: Code(s): M17.0 - Bilateral primary osteoarthritis of knee Category: Medical Plan: #Bilateral knee OA Patient with bilateral knee pain likely secondary to knee OA. Discussed therapeutic options including topical diclofenac, steroid injection and gel injections. Patient is interested in gel injections we will proceed with prior Auth. Failed physical therapy and previously got steroid injections with no improvement. Plan - Euflexxa for bilateral knees - Submit PA - Knee XR - RTC 3 months or sooner if approved Plan I spent 30 minutes reviewing the record and labs, seeing the patient, discussing the treatment plan and documenting in the medical record ? Orders: Orders XR knee RT 3V Today M17.0 - Bilateral primary osteoarthritis of knee XR knee LT 3V Today M17.0 - Bilateral primary osteoarthritis of knee XR knee standing BI Today M17.0 - Bilateral primary osteoarthritis of knee Medications: New baclofen 5 mg PO BEDTIME 90 tabs 0RF M79.7 - Fibromyalgia tramadol 100 mg PO TID 30 days PRN 90 tabs 3RF pain M17.0 - Bilateral primary osteoarthritis of knee, M79.7 - Fibromyalgia Coding Level of Care Code Est Pt Level 4 (57526) Diagnoses Fibromyalgia M79.7 Bilateral primary osteoarthritis of knee M17.0
[2024-09-12 09:44] VITALS: BP 134/70; PULSE 70; O2SAT 99; BMI 35.5
--- OUTSIDE RECORDS SUMMARY | 2024-09-12 10:10 | XMS_ITS | Continuity of Care Document ---
Author Organization [place] - [facility], [facility] Address [address] [place] [address] Care Team Providers Care Cvicu Nurse Name Role Phone GIACOMO MARX Primary Care Provider GIACOMO MARX Referring Provider [phone] Assessment No assessment recorded. Plan of Treatment Reminders Order Date Submit Date Provider Last Modified By Organization Details Last Modified Time Details Appointments Establish ed 30 2024 01:00P M MADHU Mc MD Not available Not available Not available Lab None recorded. Referral None recorded. Procedures allergy testing, skin prick (PROC) 2023 024 [email or web address] Not available 08/20/2024 12:51:20 intraderm al allergy skin testing (PROC) 2023 024 [email or web address] Not available 08/20/2024 12:51:20 pulmonary function test procedure (PROC) 2023 024 [email or web address] Not available 08/20/2024 12:51:20 pulse oximetry (PROC) 2023 024 [email or web address] Not available 08/20/2024 12:51:20 Surgeries None recorded. Imaging None recorded. Medication Orders None recorded. Patient TargetsNo targets recorded. Patient InstructionsNo instructions recorded. Reason for Referral None Reported. Problems Name Problem SNOMED Code Status Onset Date Resolution Date Notes Provider Name and Address Organization Details Recorded Time Thyroid nodule 328978492 Active 2023 MADHU REYES MD [address] [address], [facility] [place], [address] , [place] - [facility] 4 16:36:38 Hypertrop hy of tonsils AND adenoids 17417248 Active 2023 MADHU REYES MD [address] [facility] [place],[facility] [address], [place], [address] , [place] - [facility] 4 16:36:47 Hypertrop hy of lingual tonsil 851376090 Active 2023 MADHU REYES MD [address] [facility] [place],[facility] [address], [place], [address] , [place] - [facility] 4 16:36:52 Non-toxic uninodula r goiter 723439558 Active 2023 Nontoxic single thyroid nodule; Note: Date Diagnosed : 01/18/2024 11:58 AM (E04.1) Not Available [facility] 4 02:45:01 Mass of neck 370619343 Active 2023 Localized swelling, mass and lump, neck; Note: Date Diagnosed : 11/08/2023 11:56 AM (R22.1) Not Available [facility] 4 02:45:02 Neck swelling 861032225 Active 2023 Localized swelling, mass and lump, neck; Note: Date Diagnosed : 11/08/2023 11:56 AM (R22.1) Not Available [facility] 4 02:45:02 Neck pain 36216222 Active 2023 Cervicalg ia; Note: Date Diagnosed : 11/08/2023 11:56 AM (M54.2) Not Available [facility] 4 02:45:02 Dysphagia 47536792 Active 2023 Dysphagia , unspecifi ed; Note: Date Diagnosed : 11/08/2023 11:56 AM (R13.10) Not Available [facility] 4 02:45:05 Obstructi ve sleep apnea of adult 55878983761 03 Active 2023 MADHU REYES MD [address] [place],[facility] [address], [place], [address] , [place] - [facility] 4 08:48:15 Seasonal allergic rhinitis 589292444 Active 2023 MADHU REYES MD [address] [facility],[place] [address], [place], [address] , [facility] - [facility] 4 08:52:06 Allergic rhinitis 47261192 Active 2023 MADHU REYES MD [address] [facility],[place] [address], [place], [address] , [facility] - [facility] 4 08:52:17 Non-aller gic rhinitis 51076152870 1 Active 2023 MADHU REYES MD [address] [facility],[place] [address], [place], [address] , [facility] - [facility] 4 08:52:17 Problem Notes None recorded. Procedures Surgical History Date Name Laterality Status Provider Name and Address Organization Details Recorded Time 4 LARYNGOSCOPY, DIRECT OPERATIVE WITH OPERATING MICROSCOPE OR TELESCOPE WITH BIOPSY (SURG) completed Paulo Faria [place] - [facility] 04/14/2024 09:38:40 4 FFL_RE completed MADHU REYES MD [address] [facility],[place] [address], [place], [address], [facility] - [facility] 03/18/2024 17:33:49 Imaging Results None recorded. Procedure Notes None recorded. Medical Equipment None Reported. Allergies No known drug allergies Medications Name Sig Start Date Stop Date Status Note LastModified by Organization Details LastModified Time cyclobenza wily 10 mg tablet TAKE 1 TABLET (10 MG) BY MOUTH 3 TIMES DAILY FOR 10 DAYS. active Not Available Not Available No t Available latanopros t 0.005 % eye drops active Medicatio n ID: [id number] Br and Name: latanopro st Send Method: E-Prescri bed Subs Allowed: subs OK Specia l Instructi on: PUT 1 DROP INTO BOTH EYES AT BEDTIME M edication GenericNa me: latanopro st Not Available Not Available Not Available terconazol e 0.4 % vaginal cream active Medicatio n ID: [id number] Br and Name: terconazo le Send Method: E-Prescri bed Subs Allowed: subs OK Specia l Instructi on: INSERT 1 APPLICATO R INTO THE VAGINA AT BEDTIME FOR 7 DAYS. Med icationGe nericName : terconazo le Not Available Not Available Not Available nicotine (polacrile x) 2 mg gum CHEW 1 GUM BUCCALLY EVERY 2 HOURS active Not Available Not Available No t Available senna 8.6 mg tablet active Medicatio n ID: [id number] Br and Name: senna Sen d Method: E-Prescri bed Subs Allowed: subs OK Specia l Instructi on: TAKE 1 TO 2 TABLETS BY MOUTH AT BEDTIME FOR CONSTIPAT ION Medic ationGene ricName: senna Not Available Not Available Not Available clonazepam 1 mg tablet TAKE 1 TABLET (1 MG) BY MOUTH NEEDED IN THE MORNING AT AT NOON AND AT BEDTIME FOR ANXIETY active Not Available Not Available No t Available valacyclov ir 500 mg tablet active Medicatio n ID: [id number] Br and Name: valacyclo vir Send Method: E-Prescri bed Subs Allowed: subs OK Specia l Instructi on: TAKE 1 TABLET BY MOUTH TWICE DAILY FOR 3 DAYS NEEDED FOR FIRST SIGN OF OUTBREAK Medicatio nGenericN kanu: valacyclo vir Not Available Not Available Not Available minoxidil 2.5 mg tablet TAKE 1 TABLET BY MOUTH EVERY MORNING active Not Available Not Available No t Available tramadol 50 mg tablet active Medicatio n ID: [id number] Br and Name: tramadol Send Method: E-Prescri bed Subs Allowed: subs OK Specia l Instructi on: TAKE 1 TABLET BY MOUTH EVERY 6 HOURS NEEDED FOR PAIN Medi cationGen ericName: tramadol Not Available Not Available Not Available ketorolac 0.5 % eye drops active Medicatio n ID: [id number] Br and Name: ketorolac Send Method: E-Prescri bed Subs Allowed: subs OK Specia l Instructi on: INSTILL 1 DROP INTO AFFECTED EYE FOUR TIMES A DAY USE FOR 2 DAYS THEN STOP Medi cationGen ericName: ketorolac Not Available Not Available Not Available hydrocorti sone-aceti c acid 1 %-2 % ear drops ADMINISTE R 5 DROPS INTO THE RIGHT EAR 2 TIMES DAILY FOR 10 DAYS. active Not Available Not Available No t Available dicyclomin e 20 mg tablet active Medicatio n ID: [id number] Br and Name: dicyclomi ne Send Method: E-Prescri bed Subs Allowed: subs OK Specia l Instructi on: TAKE 1 TABLET BY MOUTH 4 TIMES A DAY Medic ationGene ricName: dicyclomi ne Not Available Not Available Not Available amlodipine 10 mg tablet TAKE 1 TABLET BY MOUTH EVERY DAY active Not Available Not Available No t Available buspirone 10 mg tablet active Medicatio n ID: [id number] Br and Name: buspirone Send Method: E-Prescri bed Subs Allowed: subs OK Specia l Instructi on: TAKE 1 TABLET (10 MG) BY MOUTH IF NEEDED IN THE MORNING, AT NOON, AND AT BEDTIME (ANXIETY) . Medicat ionGeneri cName: buspirone Not Available Not Available Not Available lidocaine 5 % topical patch APPLY 1 PATCH TOPICALLY TO SKIN, LEAVE ON FOR 12 HOURS AND OFF FOR 12 HOURS DIRECTED active Not Available Not Available No t Available hydroxyzin e HCl 25 mg tablet TAKE 1 TABLET (25 MG) BY MOUTH EVERY 6 (SIX) HOURS IF NEEDED FOR ANXIETY. active Not Available Not Available No t Available gabapentin 100 mg capsule active Medicatio n ID: [id number] Br and Name: gabapenti n Send Method: E-Prescri bed Subs Allowed: subs OK Specia l Instructi on: TAKE 1 CAPSULE BY MOUTH EVERY 8 HOURS Med icationGe nericName : gabapenti n Not Available Not Available Not Available estradiol 0.01% (0.1 mg/gram) vaginal cream INSERT 1 G VAGINALLY TWICE A WEEK active Not Available Not Available No t Available zolpidem 10 mg tablet TAKE 1 TABLET BY MOUTH EVERY DAY AT BEDTIME NEEDED FOR SLEEP active Not Available Not Available No t Available rizatripta n 5 mg disintegra ting tablet PLEASE SEE ATTACHED FOR DETAILED DIRECTION S active Not Available Not Available No t Available losartan 100 mg tablet TAKE 1 TABLET BY MOUTH EVERY DAY active Not Available Not Available No t Available fluticason e propionate 50 mcg/actuat ion nasal spray,susp ension SPRAY 1 SPRAY INTO EACH NOSTRIL TWICE A DAY SHAKE BEFORE FIRST USE PRIME AFTER USE CLEAN TIP active Not Available Not Available No t Available Ventolin HFA 90 mcg/actuat ion aerosol inhaler INHALE 2 PUFFS EVERY 4 (FOUR) HOURS IF NEEDED FOR WHEEZING OR SHORTNESS OF BREATH. active Not Available Not Available No t Available Allergy Relief D-24hr 10 mg-240 mg tablet,ext ended release TAKE 1 TABLET BY MOUTH ONCE PER DAY. DO NOT CRUSH, CHEW, OR SPLIT. *OTC* active Not Available Not Available No t Available vareniclin e tartrate 1 mg tablet active Medicatio n ID: [id number] Br and Name: varenicli ne Send Method: E-Prescri bed Subs Allowed: subs OK Specia l Instructi on: TAKE 1 TABLET BY MOUTH TWICE A DAY WITH GLASS OF WATER AFTER MEALS Med icationGe nericName : varenicli ne Not Available Not Available Not Available diclofenac 1 % topical gel active Medicatio n ID: [id number] Br and Name: diclofena c sodium Se nd Method: E-Prescri bed Subs Allowed: subs OK Specia l Instructi on: APPLY 1 INCH TOPICALLY IF NEEDED IN THE MORNING AND AT BEDTIME (PAIN). M edication GenericNa me: diclofena c sodium Not Available Not Available Not Available Vitamin D3 50 mcg (2,000 unit) tablet TAKE 1 TABLET BY MOUTH EVERY DAY active Not Available Not Available No t Available Creon 24,000-76, 000-120,00 0 unit capsule,de layed release active Medicatio n ID: [id number] Br and Name: Creon Sen d Method: E-Prescri bed Subs Allowed: subs OK Specia l Instructi on: TAKE 1 CAPSULE BY MOUTH 4 TIMES A DAY. ADMINISTE R WITH MEALS AND OR SNACKS Me dicationG enericNam e: Creon Not Available Not Available Not Available blood pressure test kit-large cuff active Medicatio n ID: [id number] Br and Name: blood pressure test kit-large Send Method: E-Prescri bed Subs Allowed: subs OK Specia l Instructi on: USE TO CHECK BLOOD PRESSURE ONCE DAILY IN THE MORNING M edication GenericNa me: blood pressure test kit-large Not Available Not Available Not Available Dexilant 60 mg capsule, delayed release active Medicatio n ID: [id number] Br and Name: Dexilant Send Method: E-Prescri bed Subs Allowed: subs OK Specia l Instructi on: TAKE 1 CAPSULE BY MOUTH EVERY DAY Medic ationGene ricName: Dexilant Not Available Not Available Not Available Arnuity Ellipta 100 mcg/actuat ion powder for inhalation INHALE 1 PUFF DAILY active Not Available Not Available No t Available Emgality Pen 120 mg/mL subcutaneo us pen injector INJECT 1 PEN SUBCUTANE OUSLY ONCE EVERY 28 DAYS (MAINTENA NCE DOSE) active Not Available Not Available No t Available Vitals Date Recorded Body height Body mass index (BMI) Body weight Provider Name and Address Organization Details Last Updated DateTime 07/30/2024 160.02 cm 36.8 kg/m2 21450.21 g Marley Santamaria [place] - [facility] 07/30/2024 08:31:21 Social History None recorded. Functional Status None recorded. Mental Status None recorded. Family History Nothing Reported. Medical History No medical history recorded. Gynecological HistoryNo gynecological history recorded. Obstetrics History GPAL:G 0 P 0 0 0 0 Past Encounters Encounter ID Performer Location Encounter Start Date Encounter Closed Date Diagnosis/Indication Diagnosis SNOMED-CT Code Diagnosis ICD10 Code [id number] MADHU REYES MD [facility] [address] [address] 07/30/2024 08:28:17 07/30/2024 08:55:15 Hypertrophy of lingual tonsil 302788480 J35.3 Obstructiv e sleep apnea of adult 7704516209 103 G47.33 Thyroid nodule 564565562 E04.1 Seasonal a llergic rhinitis 840795595 J30.2 Allergic rhinitis 996889 04 J30.9 Non-allergic rhinitis 31 71723738 01 J31.0 Health Concerns Section Related Observation LastModified by Organization Detai ls LastModified Time None Recorded Concern Status LastModified by Organization Details LastModified Time None Recorded Payers Encounter Date Sequence Insurance Name Policy Number Policy Tompkins Covered Member ID Tompkins Member ID Guarantor Name 07/30/2024 1 [place] [facility] Elaine Rodas [id number] Elaine Rodas Notes Date Note Type Note Provider Name and Address Organization Details Recorded Time 07/30/2024 text/html 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 We went to the OR and performed multiple biopsies all of which showed reactive oropharyngeal tissue and no sign of malignancy including lymphoma. 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 Last thyroid US 02/2024. She has intermittent tightness in her throat. She was diagnosed with JERRI and is in the process of getting a CPAP machine. Uses loratidine for allergies with marginal benefit. MADHU REYES MD [address] [place] [address], [place], [address], [place] - [facility] 07/30/2024 08:52:32 OBGyn Episode No OBEpisode recorded.
== END 2024-09-12 10:38 | disposition home or self-care (01) ==
PROVIDERS: PCP Internal Medicine; Visit Provider Student in an Organized Health Care Education/Training Program
DX: M79.7 Fibromyalgia (principal); M17.0 Bilateral primary osteoarthritis of knee
CPT/HCPCS: 99214

== ENCOUNTER → 2024-09-12 09:31 | Outpatient (BNVA) | payer MEDICAID, SELFPAY | PROVIDERS: PCP Internal Medicine; Visit Provider Student in an Organized Health Care Education/Training Program | DX: M79.7 Fibromyalgia (principal); M17.0 Bilateral primary osteoarthritis of knee | CPT/HCPCS: 99212 ==

== ENCOUNTER 2024-09-16 11:06 | Outpatient (REF) | payer MEDICAID, SELFPAY ==
--- OUTSIDE RECORDS SUMMARY | 2024-09-16 12:35 | XMS_ITS | Continuity of Care Document ---
Author Organization [place] - [facility], [facility] Address [address] [place] [address] Care Team Providers Care Journeyman Apprentice Electricians Name Role Phone GIACOMO MARX Primary Care Provider GIACOMO MARX Referring Provider [phone] Assessment No assessment recorded. Plan of Treatment [...] Address Organization Details Recorded Time Thyroid nodule 917471122 Active 2023 MADHU REYES MD [address] [address], [facility] [place], [address] , [place] - [facility] 4 16:36:38 Hypertrop hy of tonsils AND adenoids 45467754 Active 2023 MADHU REYES MD 100 [facility] [place],[facility] 100, [place], [address] , [place] - [facility] 4 16:36:47 Hypertrop hy of lingual tonsil 517445187 Active 2023 MADHU REYES MD 100 [facility] [place],[facility] 100, [place], [address] , [place] - [facility] 4 16:36:52 Non-toxic uninodula r goiter 299478292 Active 2023 Nontoxic single thyroid nodule; Note: Date Diagnosed : 01/18/2024 11:58 AM (E04.1) Not Available [facility] 4 02:45:01 Mass of neck 047293415 Active 2023 Localized swelling, mass and lump, neck; Note: Date Diagnosed : 11/08/2023 11:56 AM (R22.1) Not Available [facility] 4 02:45:02 Neck swelling 040197858 Active 2023 Localized swelling, mass and lump, neck; Note: Date Diagnosed : 11/08/2023 11:56 AM (R22.1) Not Available [facility] 4 02:45:02 Neck pain 99295784 Active 2023 Cervicalg ia; Note: Date Diagnosed : 11/08/2023 11:56 AM (M54.2) Not Available [facility] 4 02:45:02 Dysphagia 66586851 Active 2023 Dysphagia , unspecifi ed; Note: Date Diagnosed : 11/08/2023 11:56 AM (R13.10) Not Available [facility] 4 02:45:05 Obstructi ve sleep apnea of adult 36179539928 03 Active 2023 MADHU REYES MD [address] [place],[facility] 100, [place], [address] , [place] - [facility] 4 08:48:15 Seasonal allergic rhinitis 054930948 Active 2023 MADHU REYES MD 100 [facility],[address] [address], [place], [address] , [facility] - [facility] 4 08:52:06 Allergic rhinitis 57653467 Active 2023 MADHU REYES MD 100 [facility],[address] [address], [place], [address] , [facility] - [facility] 4 08:52:17 Non-aller gic rhinitis 15671460884 1 Active 2023 MADHU REYES MD 100 [facility],[address] [address], [place], [address] , [facility] - [facility] 4 08:52:17 Problem Notes None recorded. Procedures Surgical History Date Name Laterality Status Provider Name and Address Organization Details Recorded Time 4 LARYNGOSCOPY, DIRECT OPERATIVE WITH OPERATING MICROSCOPE OR TELESCOPE WITH BIOPSY (SURG) completed Paulo Faria [place] - [facility] 04/14/2024 09:38:40 4 FFL_RE completed MADHU REYES MD 100 [facility],[address] [address], [place], [address], [facility] - [facility] 03/18/2024 17:33:49 Imaging Results None recorded. Procedure [...] % eye drops active Medicatio n ID: [id number] Br and Name: latanopro st Send Method: E-Prescri bed Subs Allowed: subs OK Specia l Instructi on: PUT 1 DROP INTO BOTH EYES AT BEDTIME M edication GenericNa me: latanopro st Not Available Not Available Not Available terconazol e 0.4 % vaginal cream active Medicatio n ID: [id number] Br and Name: terconazo le Send Method: [...] 8.6 mg tablet active Medicatio n ID: [id number] Br and Name: senna Sen d Method: [...] 500 mg tablet active Medicatio n ID: [id number] Br and Name: valacyclo vir Send Method: [...] 50 mg tablet active Medicatio n ID: [id number] Br and Name: tramadol Send Method: E-Prescri bed Subs Allowed: subs OK Specia l Instructi on: TAKE 1 TABLET BY MOUTH EVERY 6 HOURS NEEDED FOR PAIN Medi cationGen ericName: tramadol Not Available Not Available Not Available ketorolac 0.5 % eye drops active Medicatio n ID: [id number] Br and Name: ketorolac Send Method: E-Prescri [...] 20 mg tablet active Medicatio n ID: [id number] Br and Name: dicyclomi ne Send Method: [...] 10 mg tablet active Medicatio n ID: [id number] Br and Name: buspirone Send Method: E-Prescri [...] 100 mg capsule active Medicatio n ID: [id number] Br and Name: gabapenti n Send Method: [...] 1 mg tablet active Medicatio n ID: [id number] Br and Name: varenicli ne Send Method: E-Prescri bed Subs Allowed: subs OK Specia l Instructi on: TAKE 1 TABLET BY MOUTH TWICE A DAY WITH GLASS OF WATER AFTER MEALS Med icationGe nericName : varenicli ne Not Available Not Available Not Available diclofenac 1 % topical gel active Medicatio n ID: [id number] Br and Name: diclofena c sodium Se [...] capsule,de layed release active Medicatio n ID: [id number] Br and Name: Creon Sen d Method: E-Prescri bed Subs Allowed: subs OK Specia l Instructi on: TAKE 1 CAPSULE BY MOUTH 4 TIMES A DAY. ADMINISTE R WITH MEALS AND OR SNACKS Me dicationG enericNam e: Creon Not Available Not Available Not Available blood pressure test kit-large cuff active Medicatio n ID: [id number] Br and Name: blood pressure test kit-large Send Method: E-Prescri bed Subs Allowed: subs OK Specia l Instructi on: USE TO CHECK BLOOD PRESSURE ONCE DAILY IN THE MORNING M edication GenericNa me: blood pressure test kit-large Not Available Not Available Not Available Dexilant 60 mg capsule, delayed release active Medicatio n ID: [id number] Br and Name: Dexilant Send Method: E-Prescri [...] Updated DateTime 07/30/2024 160.02 cm 36.8 kg/m2 31185.21 g Marley Santamaria [place] - [facility] 07/30/2024 08:31:21 Social History None recorded. Functional Status None recorded. Mental Status None recorded. Family History Nothing Reported. Medical History No medical history recorded. Gynecological HistoryNo gynecological history recorded. Obstetrics History GPAL:G 0 P 0 0 0 0 Past Encounters Encounter ID Performer Location Encounter Start Date Encounter Closed Date Diagnosis/Indication Diagnosis SNOMED-CT Code Diagnosis ICD10 Code Diagnosis Note [id number] MADHU REYES MD [facility] of [address] [address] 07/30/2024 08:28:17 07/30/2024 08:55:15 Hypertrophy of lingual tonsil 728021602 J35.3 Biopsies negative. Gave reassuranc e. Continue observatio n. Deferred laryngosoc py today. Obstructiv e sleep apnea of adult 9565962881 103 G47.33 Agree with starting CPAP which is in process. Thyroid nodule 825835125 E04.1 Recommend repeat thyroid US at [facility] after next visit in 6 months. Seasonal a llergic rhinitis 523004374 J30.2 Exam and history are consistent with allergic rhinitis. We will obtain allergy testing to clarify the extent of allergy with f/u to review. Allergic rhinitis 143717 04 J30.9 Non-allergic rhinitis 31 58231934 01 J31.0 Health Concerns Section Related Observation LastModified by Organization Detai ls LastModified Time None Recorded Concern Status LastModified by Organization Details LastModified Time None Recorded Payers Encounter Date Sequence Insurance Name Policy Number Policy Tompkins Covered Member ID Tompkins Member ID Guarantor Name 07/30/2024 1 MEDICA[place]: [facility] Elaine Rodas [id number] Elaine Rodas Notes Date Note Type Note [...] allergies with marginal benefit. MADHU REYES MD [address] [place] [address],[address] [address], [place], [address], [place] - [facility] 07/30/2024 08:52:32 OBGyn Episode No OBEpisode recorded.
--- OUTSIDE RECORDS SUMMARY | 2024-09-16 12:35 | XMS_ITS | Data Portability ---
Author Organization [place] - [facility], Allergy Address [address] [address] Care Team Providers Care Puppy Walker Name Role Phone GIACOMO MARX Primary Care Provider GIACOMO MARX Referring Provider Assessment Encounter Date Assessment Date Assessment LastModified by Organization Details LastModified Time 04/25/2024 04/25/2024 53-year-old female presents following DL with biopsy. Pathology was reviewed to be benign. 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 Overall reassurance was provided. follow up as scheduled. Not available 04/28/2024 15:04:21 Plan of Treatment Reminders Order Date Submit [...] 024 [email or web address] Not available 08/20/2024 12:51:20 Surgeries fine needle aspiratio n, thyroid, deep tissue, under radiologi c guidance (SURG) 2023 024 [email or web address] Not available 03/19/2024 07:43:13 laryngosc opy, direct operative with operating microscop e or telescope with biopsy (SURG) 2023 024 [email or web address] Not available 03/19/2024 07:43:13 Imaging None recorded. Medication Orders None recorded. Patient TargetsNo targets recorded. Patient InstructionsNo instructions recorded. Reason for Referral None Reported. Results Created Date Observation Date Name Description Value Unit Range Abnormal Flag Note LastModifiedBy Organization Detail LastModifiedTime 02/20/20 24 02/19/2024 US, thyro id No observ ation record ed. [email or web address] [facility] [place] [address] [facility] 101, [place], [address], 02/25/2024 09:12:35 03/31/20 24 03/31/2024 US, neck, soft tissu e No observ ation [facility] ed. [email or web address] [address] [facility] [address], [place], [address], 04/11/2024 16:05:21 04/28/20 24 04/10/2024 clini bertha photo * No observ ation record ed. [email or web address] Not Available 17:00:02 04/29/20 24 05/08/2023 imagi ng/di agnos tic resul t No observ ation record ed. [email or web address] Not Available 21:42:28 Result Notes None recorded. Problems Name Problem SNOMED Code Status Onset Date Resolution Date Notes Provider Name and Address Organization Details Recorded Time Thyroid nodule 538499999 Active 2023 MADHU REYES MD 100 [facility] 100, [place], [address] , [place] - [facility] [place] 4 16:36:38 Hypertrop hy of tonsils AND adenoids 15267050 Active 2023 MADHU REYES MD 100 [facility] 100, [place], [address] , [place] - [facility] [place] 4 16:36:47 Hypertrop hy of lingual tonsil 732246097 Active 2023 MADHU REYES MD 100 [facility],[address] [address], [place], [address] , [place] [facility] 4 16:36:52 Non-toxic uninodula r goiter 880885415 Active 2023 Nontoxic single thyroid nodule; Note: Date Diagnosed : 01/18/2024 11:58 AM (E04.1) Not Available [facility] 4 02:45:01 Mass of neck 317349944 Active 2023 Localized swelling, mass and lump, neck; Note: Date Diagnosed : 11/08/2023 11:56 AM (R22.1) Not Available [facility] 4 02:45:02 Neck swelling 751813086 Active 2023 Localized swelling, mass and lump, neck; Note: Date Diagnosed : 11/08/2023 11:56 AM (R22.1) Not Available [facility] 4 02:45:02 Neck pain 73906659 Active 2023 Cervicalg ia; Note: Date Diagnosed : 11/08/2023 11:56 AM (M54.2) Not Available [facility] 4 02:45:02 Dysphagia 99440534 Active 2023 Dysphagia , unspecifi ed; Note: Date Diagnosed : 11/08/2023 11:56 AM (R13.10) Not Available [facility] 4 02:45:05 Obstructi ve sleep apnea of adult 21936840060 03 Active 2023 MADHU REYES MD 100 [facility] 100, [place], [address] , [place] - [facility] [place] 4 08:48:15 Seasonal allergic rhinitis 205207647 Active 2023 MADHU REYES MD 100 [facility] 100, [place], [address] , [place] [facility] [place] 4 08:52:06 Allergic rhinitis 67798039 Active 2023 MADHU REYES MD 100 [facility],[address] [address], [place], [address] , [place] - [facility] [place] 4 08:52:17 Non-aller gic rhinitis 16412558686 1 Active 2023 MADHU REYES MD 100 [facility],[address] [place] [address], [place], [address] , [facility] - [facility] [place] 4 08:52:17 Problem Notes None recorded. Procedures Surgical History Date Name Laterality Status Provider Name and Address Organization Details Recorded Time 4 LARYNGOSCOPY, DIRECT OPERATIVE WITH OPERATING MICROSCOPE OR TELESCOPE WITH BIOPSY (SURG) completed Paulo Faria [place] - [facility] 04/14/2024 09:38:40 4 FFL_RE completed MADHU REYES MD 100 [facility],[address] [place] [address], [place], [address], [facility] - [facility] 03/18/2024 17:33:49 Imaging Results Imaging Date Name Status LastModified by Organiz ation Details LastModified Time 02/19/2024 US, thyroid completed [email or web address] [facility] [place] [address] [facility] [address], [place], [address], 02/25/2024 09:12:35 03/31/2024 US, neck, soft tissue completed [facility] (Imaging) [address] [place], [address], 04/11/2024 16:05:21 04/10/2024 clinical photo* completed [email or web address] Information not available 04/28/2024 17:00:02 05/08/2023 imaging/diagn ostic result completed [email or web address] Information not available 04/29/2024 21:42:28 Procedure Notes None recorded. Medical Equipment None [...] % eye drops active Medicatio n ID: [id number] Br and Name: latanopro st Send Method: E-Prescri bed Subs Allowed: subs OK Specia l Instructi on: PUT 1 DROP INTO BOTH EYES AT BEDTIME M edication GenericNa me: latanopro st Not Available Not Available Not Available terconazol e 0.4 % vaginal cream active Medicatio n ID: [id number] Br and Name: terconazo le Send Method: [...] 8.6 mg tablet active Medicatio n ID: [id number] Br and Name: senna Sen d Method: [...] 500 mg tablet active Medicatio n ID: [id number] Br and Name: valacyclo vir Send Method: [...] 50 mg tablet active Medicatio n ID: [id number] Br and Name: tramadol Send Method: E-Prescri bed Subs Allowed: subs OK Specia l Instructi on: TAKE 1 TABLET BY MOUTH EVERY 6 HOURS NEEDED FOR PAIN Medi cationGen ericName: tramadol Not Available Not Available Not Available ketorolac 0.5 % eye drops active Medicatio n ID: [id number] Br and Name: ketorolac Send Method: E-Prescri [...] 20 mg tablet active Medicatio n ID: [id number] Br and Name: dicyclomi ne Send Method: [...] 10 mg tablet active Medicatio n ID: [id number] Br and Name: buspirone Send Method: E-Prescri [...] 100 mg capsule active Medicatio n ID: [id number] Br and Name: gabapenti n Send Method: [...] 1 mg tablet active Medicatio n ID: [id number] Br and Name: varenicli ne Send Method: E-Prescri bed Subs Allowed: subs OK Specia l Instructi on: TAKE 1 TABLET BY MOUTH TWICE A DAY WITH GLASS OF WATER AFTER MEALS Med icationGe nericName : varenicli ne Not Available Not Available Not Available diclofenac 1 % topical gel active Medicatio n ID: [id number] Br and Name: diclofena c sodium Se [...] capsule,de layed release active Medicatio n ID: [id number] Br and Name: Creon Sen d Method: E-Prescri bed Subs Allowed: subs OK Specia l Instructi on: TAKE 1 CAPSULE BY MOUTH 4 TIMES A DAY. ADMINISTE R WITH MEALS AND OR SNACKS Me dicationG enericNam e: Creon Not Available Not Available Not Available blood pressure test kit-large cuff active Medicatio n ID: [id number] Br and Name: blood pressure test kit-large Send Method: E-Prescri bed Subs Allowed: subs OK Specia l Instructi on: USE TO CHECK BLOOD PRESSURE ONCE DAILY IN THE MORNING M edication GenericNa me: blood pressure test kit-large Not Available Not Available Not Available Dexilant 60 mg capsule, delayed release active Medicatio n ID: [id number] Br and Name: Dexilant Send Method: E-Prescri [...] and Address Organization Details Last Updated DateTime 03/18/2024 160.02 cm 36.8 kg/m2 37367.21 g Kodi Soni [place] - [facility] 03/18/2024 16:16:00 Date Recorded Body height Body mass index (BMI) Body weight Provider Name and Address Organization Details Last Updated DateTime 04/25/2024 160.02 cm 36.8 kg/m2 70063.21 g Janeth Castro [facility] 04/25/2024 15:19:15 Date Recorded Body height Body mass index (BMI) Body weight Provider Name and Address Organization Details Last Updated DateTime 07/30/2024 160.02 cm 36.8 kg/m2 28660.21 g Marley Santamaria [facility] 07/30/2024 08:31:21 Social History None recorded. Functional Status None recorded. Mental Status None recorded. Family History Nothing Reported. Medical History No medical history recorded. Gynecological HistoryNo gynecological history recorded. Obstetrics History GPAL:G 0 P 0 0 0 0 Past Encounters Encounter ID Performer Location Encounter Start Date Encounter Closed Date Diagnosis/Indication Diagnosis SNOMED-CT Code Diagnosis ICD10 Code Diagnosis Note [id number] MADHU REYES MD [facility] of [address] [address] 03/18/2024 15:41:26 03/18/2024 17:01:09 Thyroid nodule 663210103 E04.1 I recommend a US guided FNA of the thyroid nodule. She will f/u to review. Hypertroph y of tonsils AND adenoids 54537319 J35.3 hypertroph y of Waldeyer's ring. lingual tonsil biopsy is less morbid to evaluate for lymphoma. see below. Hypertroph y of lingual tonsil 131702312 J35.3 I recommend direct laryngosco py with biopsy to evaluate for lymphoma. The patient is indicated for and a candidate for direct laryngosco py. I discussed the risks, benefits, and alternativ es to direct laryngosco py, bronchosco py, in the operating room. Specifical ly I discussed the risk of damaging the structures we are working on or around including for direct laryngosco py damaging the lips, teeth, gums, tongue, palate, oropharynx , larynx and trachea. I discussed if biopsy of the vocal cords is performed that there is a risk of temporary or permanent hoarseness and voice change. I discussed the possible need for additional procedures . The patient understand s the risks and would like to proceed. We will schedule surgery mutually convenient time. [id number] MADHU REYES MD [facility] of [address] [place] [address] 04/25/2024 15:12:06 04/30/2024 07:57:22 Hypertrophy of lingual tonsil 327726641 J35.3 Hypertroph y of tonsils AND adenoids 75602893 J35.3 Neck pain 41237866 M54.2 [id number] MADHU REYES MD [facility] of [facility] [address] [facility] [place] [address] 07/30/2024 08:28:17 07/30/2024 08:55:15 Hypertrophy of lingual tonsil 235185229 J35.3 Biopsies negative. Gave reassuranc e. Continue observatio n. Deferred laryngosoc py today. Obstructiv e sleep apnea of adult 9052312948 103 G47.33 Agree with starting CPAP which is in process. Thyroid nodule 236147790 E04.1 Recommend repeat thyroid US at [facility] after next visit in 6 months. Seasonal a llergic rhinitis 467868875 J30.2 Exam and history are consistent with allergic rhinitis. We will obtain allergy testing to clarify the extent of allergy with f/u to review. Allergic rhinitis 168464 04 J30.9 Non-allergic rhinitis 31 35948797 01 J31.0 Health Concerns Section Related Observation LastModified by Organization Detai ls LastModified Time None Recorded Concern Status LastModified by Organization Details LastModified Time None Recorded Advance Directives Directive None Recorded Payers Encounter Date Sequence Insurance Name Policy Number Policy Tompkins Covered Member ID Tompkins Member ID Guarantor Name 03/18/2024 1 [place] [facility] Rodas [id number] Elaine Rodas 04/25/2024 1 [place] [facility] Elaine Rodas [id number] Elaine Rodas 07/30/2024 1 [place] [facility] Elaine Rodas [id number] Elaine Rodas Notes Date Note Type Note Provider Name and Address Organization Details Recorded Time 03/18/2024 text/html She presented wi th neck pain which radiates to the right side of her neck. We obtained a CT which showed diffuse enlargement of Waldeyer's ring tissue (tonsils, adenoids, lingual tonsil). CT also showed a thyroid nodule. Thyroid US showed a right 1.5cm thyroid nodule TR4 and FNA was recommended. She also reports some chest adenopathy was seen which is being workup up by her other doctors. MADHU REYES MD [address] [place] [address], [address], [place] - [facility] 03/18/2024 17:45:03 04/25/2024 text/html 53-year-old fema nidia presents following DL with biopsy. She continues to have mild sore throat but no bleeding. Biopsy was done due to hypertrophy of Waldeyer's ring on imaging. MADHU REYES MD [address] [place] [address],[address], [address], [place] - [facility] 04/29/2024 10:01:40 07/30/2024 text/html Hx of hypertroph y of [...] allergies with marginal benefit. MADHU REYES MD [address] [place] [address], [place], [address], [place] - [facility] 07/30/2024 08:52:32 OBGyn Episode No OBEpisode recorded.
[2024-09-16 13:30] LABS: D Dimer High Sensitivity 203 NG/ML
[2024-09-16 13:56] LABS: Blood Urea Nitrogen 11 mg/dL (9-16); Estimated Glomerular Filt Rate > 60
== END 2024-09-16 11:07 | disposition home or self-care (01) ==
LOC: HO.HHCL 11:06
PROVIDERS: Nurse Practitioner Family; Visit Provider Internal Medicine
DX: R05.2 Subacute cough (principal); R39.15 Urgency of urination; Z01.818 Encounter for other preprocedural examination
CPT/HCPCS: 36415; 82565; 84520; 85379

== ENCOUNTER 2024-09-22 11:15 | Outpatient (AMB) | payer MEDICAID, SELFPAY ==
[2024-09-22 11:22] VITALS: BP 128/72; BMI 35.3
--- NOTE | 2024-09-22 11:22 | A.OFFVIS_ITS ---
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/DO NOT RS Flight Engineer Performance Qualified Required: Yes Flight Engineer Performance Qualified Language: Crm Solution Architect Services: Flight Engineer Performance Qualified Present (in person) Flight Engineer Performance Qualified Name: Guadalupe MYERS Information Interpreted: non-clinical & clinical Pest Management Supervisor: Pest Management Supervisor Present (Guadalupe MYERS) Accompanied by: Self / Same As Patient Allergies Penicillins Allergy (Mild, Verified 09/22/24 11:30) VAGINAL FUNGUS INFECTION lisinopril [LISINOPRIL] Allergy (Unknown, Verified 09/22/24 11:30) COUGH verapamil Allergy (Unknown, Verified 09/22/24 11:30) unknown Post menopausal: Yes HPI Comments Details: Presenting for annual exam. No complaints. Last Pap/HPV was negative in 09/01 Last Mammogram was BI-RADS 1 in 10/03 Last Colonoscopy was done in 08/31 [facility] Medical History Bilateral primary osteoarthritis of knee Gallstone pancreatitis Palpitations Fibromyalgia Depression Glaucoma HTN (hypertension) Surgical History H/O colonoscopy History of tubal ligation Hx of carpal tunnel repair Hx of cholecystectomy Hx of knee surgery Family History Father Kidney disease Mother CVD (cardiovascular disease) Colon cancer Social History Alcohol intake: never Patient Tobacco Use Status: Current everyday Tobacco user Cigarette Packs Per Day: 0.5 Cigarettes Per Day: 10 Years Smoked: 30 Female Reproductive History Menstrual Age of Menarche: 9 Date of last pap smear: 08/24/23 Date of Mammogram: 09/24/23 Review of Systems Const All systems reviewed & are unremarkable except as noted in HPI and below Card Reports as per HPI Resp Reports as per HPI GI Reports as per HPI and Reports no additional complaints Reports as per HPI Physical Exam Vital Signs: Last Vital Signs BP 128/72 09/22/24 11:22 BMI result Body Mass Index 35.3 Const General: cooperative, healthy appearing and comfortable Chest Chest palpation & inspection: normal inspection of the chest and normal palpation of entire chest wall Breast/axilla inspection: normal inspection of the breasts and normal inspection of the axillae Breast/axilla palpation: normal palpation of the breasts, normal palpation of the axillae and no axillary lymphadenopathy Resp Effort & Inspection: normal respiratory effort Auscultation: clear to auscultation bilaterally Percussion: percussion normal Cardio Palpation: normal PMI Rate: regular rate Rhythm: regular rhythm Heart sounds: no murmurs and no rubs Peripheral pulses: Peripheral pulses 2+ throughout GI Inspection: Yes normal to inspection Palpation (GI): Soft to palpation, nontender, no guarding, not rigid and No hepatosplenomegaly present Percussion: Yes normal to percussion Auscultation: normal bowel sounds Rectal Exam - Female: deferred General: Yes bladder normal to palpation External Female Exam: No lesion Speculum Exam - Vagina: normal appearance of the vagina, normal palpation, normal vaginal discharge and not erythematous Speculum Exam - Cervix: normal appearance of the cervix and normal palpation Bimanual exam- vagina & uterus: normal bimanual exam, normal palpation, uterine size normal, bladder normal to palpation, consistency normal and normal palpation Bimanual Exam- Adnexa, other: normal adnexae, no masses and no tenderness Assessment & Plan Assessment & Plan (1) Well woman exam: Code(s): Z01.419 - Encounter for gynecological examination (general) (routine) without abnormal findings Category: Medical Plan: Co testing not indicated this year. Counseled the patient about the recommended dietary allowance of 1200 mg of Calcium & 600 IU of vitamin D. Mammogram ordered. The patient was instructed to perform monthly self-breast exams and schedule annual exam in a year. All questions answered and the patient verbalized understanding. (2) Bacterial vaginosis: Code(s): N76.0 - Acute vaginitis; B96.89 - Other specified bacterial agents as the cause of diseases classified elsewhere Category: Medical Plan: GC and chlamydia cultures with BV panel taken. Per CDC recommendation, will screen for STI, HepBs Ag, HIV, RPR, Hep C Ab ordered. Will treat with Flagyl 500 mg p.o. b.i.d. x 7 days, Instructions given to the patient to refrain from sexual activity or to use condoms consistently and correctly during the BV treatment regimen, not to douch, it might increase the risk for relapse, and to call if symptoms persist or recur. (3) Hot flashes: Code(s): R23.2 - [place] Category: Medical Plan: Discussed with the patient the options of treatment of hot flashes including hormonal replacement therapy, all the pros, cons, risks and benefits (benefits= prevention of hot flashes, atrophic vaginitis, osteoporosis, decrease colon ca risk; also discussed with the patient the risks of CA, Breast ca, DVT, PE, Strokes). In addition, discussed with the patient non hormonal treatment options for hot flashes treatment in surgical menopausal patient. Options discussed with the patient include the following: SSRI/SNRIs , difficulty has been demonstrated in multiple trials clinical response is more rapid (days) than typical response to SSRI for depression (weeks), they are equally effective in natural versus surgical menopause, they have similar modest benefit for hot flashes; Citalopram 20 mg per day is 1 of the 1st choice option. Will send prescription and follow-up in 30 days. Hydroxyzine discontinued because of potential interaction. All questions answered the patient verbalized understanding Orders: Orders MM tomosynthesis screening BI Today Z12.31 - Encounter for screening mammogram for malignant neoplasm of breast Hepatitis C Antibody Today B96.89 - Other specified bacterial agents as the cause of diseases classified elsewhere, N76.0 - Acute vaginitis HIV Ab/Ag Today B96.89 - Other specified bacterial agents as the cause of di seases classified elsewhere, N76.0 - Acute vaginitis Hepatitis B Surface Antigen Today B96.89 - Other specified bacterial agents as the cause of diseases classified elsewhere, N76.0 - Acute vaginitis Syphilis Screen Today B96.89 - Other specified bacterial agents as the cause of diseases classified elsewhere, N76.0 - Acute vaginitis Medications: New citalopram 20 mg PO DAILY 30 tabs 0RF metronidazole 500 mg PO BID 7 days 14 tabs 0RF Coding Level of Care Code Est Pt Level 3 (66698) Est Pt Prev Care 40-64y(05833) Diagnoses Well woman exam Z01.419 Bacterial vaginosis N76.0; B96.89 Hot flashes R23.2
== END 2024-09-22 11:55 | disposition home or self-care (01) ==
LOC: HO.HWS 11:15
PROVIDERS: PCP Internal Medicine; Visit Provider Obstetrics & Gynecology
DX: Z01.419 Encounter for gynecological examination (general) (routine) without abnormal findings (principal); N76.0 Acute vaginitis; B96.89 Other specified bacterial agents as the cause of diseases classified elsewhere; R23.2 Flushing
CPT/HCPCS: 99213; 99396; 99459

== ENCOUNTER 2024-09-22 11:15 | Outpatient (REF) | payer MEDICAID, SELFPAY ==
--- NOTE | ~2024-09-22 | XR_ITS ---
EXAMINATION: XR CHEST CLINICAL INFORMATION: cough COMPARISON: None available. TECHNIQUE: 2 views of the chest were obtained. FINDINGS: No significant abnormality is noted involving the heart, lungs, mediastinum, bony thorax or soft tissues. XR/XR chest 2V IMPRESSION: Unremarkable examination. Electronically signed by: Chidi Self MD 09/24/2024 09:59 AM [facility]
--- NOTE | ~2024-09-22 | XR_ITS ---
EXAMINATION: XR KNEE, LEFT CLINICAL INFORMATION: M17.0 - Bilateral primary osteoarthritis of knee COMPARISON: None available. TECHNIQUE: 3 views of the left knee with AP bilateral knee standing. FINDINGS: On AP bilateral knee standing there is loss of medial and lateral compartment joint spaces in both knees. There is loss of lateral femoral compartment joint space with anterior superior an lateral patellar enthesophytes. No visible acute fracture, dislocation or subluxation seen. No loose bodies or soft tissue swelling. XR/XR knee LT 4V IMPRESSION: Mild degenerative changes of the right, and left knee and medial and lateral compartment right knee. Mild periapical spurring superior and lateral left patella. No acute fracture or dislocation or joint effusion seen in left knee. Electronically signed by: Chidi Self MD 09/24/2024 09:59 AM [facility]
--- NOTE | ~2024-09-22 | XR_ITS ---
EXAMINATION: XR KNEE, RIGHT CLINICAL INFORMATION: M17.0 - Bilateral primary osteoarthritis of knee COMPARISON: None available. TECHNIQUE: 3 views of the right knee. FINDINGS: There is mild loss of medial and patellofemoral compartment joint space. There is no visible acute fracture or dislocation. There is anterior superior patellar enthesophyte. No joint effusion seen XR/XR knee RT 4V IMPRESSION: Mild degenerative arthritic changes medial and patellofemoral compartment. No visible acute fracture or dislocation. Electronically signed by: Chidi Self MD 09/24/2024 09:56 AM EST
[2024-09-22 13:00] LABS: Blood Urea Nitrogen 13 mg/dL (9-16); Estimated Glomerular Filt Rate > 60
--- OUTSIDE RECORDS SUMMARY | 2024-09-22 14:23 | XMS_ITS | Continuity of Care Document ---
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 Plan of Treatment [...] Address Organization Details Recorded Time Thyroid nodule 979413933 Active 2023 MADHU REYES MD [address] [address], [facility] [place], [address] , [place] - [facility] [place] 4 16:36:38 Hypertrop hy of tonsils AND adenoids 87606163 Active 2023 MADHU REYES MD [address] [facility] [address], [place], [address] , [place] - [facility] [place] 4 16:36:47 Hypertrop hy of lingual tonsil 619324158 Active 2023 MADHU REYES MD [address] [facility] [address], [place], [address] , [place] - [facility] [place] 4 16:36:52 Non-toxic uninodula r goiter 511449812 Active 2023 Nontoxic single thyroid nodule; Note: Date Diagnosed : 01/18/2024 11:58 AM (E04.1) Not Available [facility] 4 02:45:01 Mass of neck 557082729 Active 2023 Localized swelling, mass and lump, neck; Note: Date Diagnosed : 11/08/2023 11:56 AM (R22.1) Not Available [facility] 4 02:45:02 Neck swelling 250097785 Active 2023 Localized swelling, mass and lump, neck; Note: Date Diagnosed : 11/08/2023 11:56 AM (R22.1) Not Available [facility] 4 02:45:02 Neck pain 41790428 Active 2023 Cervicalg ia; Note: Date Diagnosed : 11/08/2023 11:56 AM (M54.2) Not Available [facility] 4 02:45:02 Dysphagia 67010460 Active 2023 Dysphagia , unspecifi ed; Note: Date Diagnosed : 11/08/2023 11:56 AM (R13.10) Not Available [facility] 4 02:45:05 Obstructi ve sleep apnea of adult 85163396727 03 Active 2023 MADHU REYES MD [address],[facility] [address], [place], [address] , [place] - [facility] [place] 4 08:48:15 Seasonal allergic rhinitis 387312471 Active 2023 MADHU REYES MD [address] [facility],[address] [address], [place], [address] , [facility] - [facility] 4 08:52:06 Allergic rhinitis 68715735 Active 2023 MADHU REYES MD [address] [facility],[address] [place] [address], [place], [address] , [facility] - [facility] [place] 4 08:52:17 Non-aller gic rhinitis 75973773041 1 Active 2023 MADHU REYES MD [address] [facility],[place] [address], [place], [address] , [facility] - [facility] [place] 4 08:52:17 Problem Notes None recorded. Procedures Surgical History Date Name Laterality Status Provider Name and Address Organization Details Recorded Time 4 LARYNGOSCOPY, DIRECT OPERATIVE WITH OPERATING MICROSCOPE OR TELESCOPE WITH BIOPSY (SURG) completed Paulo Faria [place] - [facility] 04/14/2024 09:38:40 4 FFL_RE completed MADHU REYES MD [address] [facility],[address] [place] [address], [place], [address], [facility] - [facility] 03/18/2024 17:33:49 Imaging Results None recorded. [...] % eye drops active Medicatio n ID: [id number] Br and Name: latanopro st Send Method: E-Prescri bed Subs Allowed: subs OK Specia l Instructi on: PUT 1 DROP INTO BOTH EYES AT BEDTIME M edication GenericNa me: latanopro st Not Available Not Available Not Available terconazol e 0.4 % vaginal cream active Medicatio n ID: [id number] Br and Name: terconazo le Send Method: [...] 8.6 mg tablet active Medicatio n ID: [id number] Br and Name: senna Sen d Method: [...] 500 mg tablet active Medicatio n ID: [id number] Br and Name: valacyclo vir Send Method: [...] 50 mg tablet active Medicatio n ID: [id number] Br and Name: tramadol Send Method: E-Prescri bed Subs Allowed: subs OK Specia l Instructi on: TAKE 1 TABLET BY MOUTH EVERY 6 HOURS NEEDED FOR PAIN Medi cationGen ericName: tramadol Not Available Not Available Not Available ketorolac 0.5 % eye drops active Medicatio n ID: [id number] Br and Name: ketorolac Send Method: E-Prescri [...] 20 mg tablet active Medicatio n ID: [id number] Br and Name: dicyclomi ne Send Method: [...] 10 mg tablet active Medicatio n ID: [id number] Br and Name: buspirone Send Method: E-Prescri [...] 100 mg capsule active Medicatio n ID: [id number] Br and Name: gabapenti n Send Method: [...] 1 mg tablet active Medicatio n ID: [id number] Br and Name: varenicli ne Send Method: E-Prescri bed Subs Allowed: subs OK Specia l Instructi on: TAKE 1 TABLET BY MOUTH TWICE A DAY WITH GLASS OF WATER AFTER MEALS Med icationGe nericName : varenicli ne Not Available Not Available Not Available diclofenac 1 % topical gel active Medicatio n ID: [id number] Br and Name: diclofena c sodium Se [...] capsule,de layed release active Medicatio n ID: [id number] Br and Name: Creon Sen d Method: E-Prescri bed Subs Allowed: subs OK Specia l Instructi on: TAKE 1 CAPSULE BY MOUTH 4 TIMES A DAY. ADMINISTE R WITH MEALS AND OR SNACKS Me dicationG enericNam e: Creon Not Available Not Available Not Available blood pressure test kit-large cuff active Medicatio n ID: [id number] Br and Name: blood pressure test kit-large Send Method: E-Prescri bed Subs Allowed: subs OK Specia l Instructi on: USE TO CHECK BLOOD PRESSURE ONCE DAILY IN THE MORNING M edication GenericNa me: blood pressure test kit-large Not Available Not Available Not Available Dexilant 60 mg capsule, delayed release active Medicatio n ID: [id number] Br and Name: Dexilant Send Method: E-Prescri [...] Updated DateTime 07/30/2024 160.02 cm 36.8 kg/m2 32036.21 g Marley Santamaria [place] - [facility] 07/30/2024 08:31:21 Social History None recorded. Functional Status None recorded. Mental Status None recorded. Family History Nothing Reported. Medical History No medical history recorded. Gynecological HistoryNo gynecological history recorded. Obstetrics History GPAL:G 0 P 0 0 0 0 Past Encounters Encounter ID Performer Location Encounter Start Date Encounter Closed Date Diagnosis/Indication Diagnosis SNOMED-CT Code Diagnosis ICD10 Code Diagnosis Note [id number] MADHU REYES MD [facility] [address] [address] 07/30/2024 08:28:17 07/30/2024 08:55:15 Hypertrophy of lingual tonsil 161839435 J35.3 Biopsies negative. Gave reassuranc e. Continue observatio n. Deferred laryngosoc py today. Obstructiv e sleep apnea of adult 0454594869 103 G47.33 Agree with starting CPAP which is in process. Thyroid nodule 693690802 E04.1 Recommend repeat thyroid US at [facility] after next visit in 6 months. Seasonal a llergic rhinitis 446094399 J30.2 Exam and history are consistent with allergic rhinitis. We will obtain allergy testing to clarify the extent of allergy with f/u to review. Allergic rhinitis 135213 04 J30.9 Non-allergic rhinitis 31 54936224 01 J31.0 Health Concerns Section Related Observation LastModified by Organization Detai ls LastModified Time None Recorded Concern Status LastModified by Organization Details LastModified Time None Recorded Payers Encounter Date Sequence Insurance Name Policy Number Policy Tompkins Covered Member ID Tompkins Member ID Guarantor Name 07/30/2024 1 [place] [facility] Elaine Rodas [id number] Elaine Rodas Notes Date Note Type Note [...] allergies with marginal benefit. MADHU REYES MD [address] [place] [address],[address] [address], [place], [address], [place] - [facility] 07/30/2024 08:52:32 OBGyn Episode No OBEpisode recorded.
[2024-09-23 04:29] LABS: Syphilis Screen Nonreactive (Nonreactive)
[2024-09-23 04:50] LABS: HBsAGNum1 0.58 S/CO (0.00-0.99); HIV AB/AG Nonreactive (Nonreactive); HIV Num 1 0.07 S/CO (0.00-0.99); Hepatitis B Surface Antigen Negative (Negative); ~HepC Num1 0.24 S/CO (0.00-0.79); ~Hepatitis C Antibody Nonreactive (Nonreactive)
== END 2024-09-22 11:16 | disposition home or self-care (01) ==
LOC: HO.XRAY 11:15
PROVIDERS: Nurse Practitioner Family; Absent Provider Family Medicine; PCP Internal Medicine; Referring Provider Student in an Organized Health Care Education/Training Program; Visit Provider Obstetrics & Gynecology
DX: Z01.419 Encounter for gynecological examination (general) (routine) without abnormal findings (principal); Z01.818 Encounter for other preprocedural examination; N76.0 Acute vaginitis; B96.89 Other specified bacterial agents as the cause of diseases classified elsewhere; R05.2 Subacute cough; R23.2 Flushing; M17.0 Bilateral primary osteoarthritis of knee; Z11.3 Encounter for screening for infections with a predominantly sexual mode of transmission
CPT/HCPCS: 36415; 71046; 73564; 81515; 82565; 84520; 86780; 86803; 87340; 87389; 87491; 87591; 99212; 99396; 99459

== ENCOUNTER → 2024-09-22 12:37 | Outpatient (BNV) | payer MEDICAID, SELFPAY | PROVIDERS: Absent Provider Family Medicine; PCP Internal Medicine; Referring Provider Student in an Organized Health Care Education/Training Program; Visit Provider Radiology Diagnostic Radiology | DX: R05.9 Cough, unspecified (principal); M17.0 Bilateral primary osteoarthritis of knee | CPT/HCPCS: 71046; 73564 ==

== ENCOUNTER 2024-09-22 14:08 | Outpatient (REF) | payer MEDICAID, SELFPAY ==
[2024-09-23 06:00] LABS: CT PCR NOT DETECTED (Not Detect.); NG PCR NOT DETECTED (Not Detect.)
[2024-09-23 13:05] LABS: Bacterial Vaginosis PCR NEGATIVE (Negative); Candida Group PCR NOT DETECTED (Not Detect); Candida glab krusei PCR NOT DETECTED (Not Detect); Trichomonas vaginalis PCR NOT DETECTED (Not Detect)
== END 2024-09-22 14:09 | disposition home or self-care (01) ==
LOC: HO.LNP 14:08
PROVIDERS: Visit Provider Obstetrics & Gynecology
DX: Z13.89 Encounter for screening for other disorder (principal)
CPT/HCPCS: 81515; 87491; 87591

== ENCOUNTER 2024-10-13 10:30 | Outpatient (AMB) | payer MEDICAID, SELFPAY ==
--- NOTE | 2024-10-13 10:42 | MHC.OFFVIS ---
Vital Signs 10/13/24 10:46 Height 5 ft 6 in Weight 220 lb 7.396 oz BMI 35.6 BP 136/74 Blood Pressure Location Rt brachial Position Sitting Pulse 82 Pulse Source Pulse Oximeter Pulse Oximetry (%) 95 Oxygen Delivery Method Room Air Intake Visit Reasons: pulm nodule/ CT scan follow up Online Media Director Required: No Switch Inspector: Switch Inspector offered & declined Accompanied by: Self / Same As Patient Allergies Penicillins Allergy (Mild, Verified 10/13/24 10:50) VAGINAL FUNGUS INFECTION lisinopril [LISINOPRIL] Allergy (Unknown, Verified 10/13/24 10:50) COUGH verapamil Allergy (Unknown, Verified 10/13/24 10:50) unknown Medication List - Last Reconciled 10/13/24 by Maliha Vazquez LPN albuterol sulfate 90 mcg/actuation (Ventolin HFA) 2 puffs PO Q4H PRN amlodipine 10 mg PO DAILY baclofen 5 mg PO BEDTIME beclomethasone dipropionate 40 mcg/actuation (Qvar RediHaler) 2 inhalations inhalation BID blood pressure test kit-large As directed cholecalciferol (vitamin D3) (Vitamin D3) 50 mcg PO DAILY citalopram 20 mg PO DAILY clonazepam 1 mg PO TID PRN dexlansoprazole (Dexilant) 60 mg PO DAILY 90 days estradiol 0.01%(0.1mg/gram) 1 g vaginal 2XW fluticasone furoate 100 mcg/actuation (Arnuity Ellipta) 1 inh inhalation DAILY fluticasone propionate 50 mcg/actuation 1 spray intranasal DAILY lidocaine 5% patches topical loratadine 10 mg PO DAILY losartan 100 mg PO DAILY metronidazole 500 mg PO BID 7 days minoxidil 2.5 mg PO QAM nicotine (polacrilex) 2 mg buccal Q2H sennosides (senna) 1-2 tabs qhs orally bedtime; 30 days tramadol 100 mg PO TID PRN 30 days valacyclovir 500 mg PO BID PRN zolpidem 10 mg PO BEDTIME PRN HPI HPI pulm nodule/ CT scan follow up: Details: Elaine is a pleasant 53 year old female, current smoker, with 30 pack year history, with underlying asthma, HTN and depression. At the last visit, she was started on Arnuity with some improvement however continues with dyspnea. Chest CT performed in February 2024 revealed enlarged anterior mediastinal lymph nodes and small pulmonary nodules. Repeat CT chest in June 2024, noted stable findings. Unfortunately, she continues to smoke 1/2 ppd despite trying multiple smoking cessation therapies. She was also dx with JERRI and has appt with [facility] to obtain CPAP machine in January. REPLACED BY [facility] Medical History Bilateral primary osteoarthritis of knee Gallstone pancreatitis Palpitations Fibromyalgia Depression Glaucoma HTN (hypertension) Surgical History H/O colonoscopy History of tubal ligation Hx of carpal tunnel repair Hx of cholecystectomy Hx of knee surgery Family History Father Kidney disease Mother CVD (cardiovascular disease) Colon cancer Social History Alcohol intake: never Patient Tobacco Use Status: Current everyday Tobacco user Cigarette Packs Per Day: 0.5 Cigarettes Per Day: 10 Years Smoked: 30 Female Reproductive History Menstrual Age of Menarche: 9 Review of Systems Const Denies chills, Denies excessive sweating, Denies fever(s), Denies headache(s) and Denies night sweats Eyes Denies dry eyes, Denies irritation and Denies itchy eyes ENT Reports Normal hearing present, Denies headache(s), Denies nasal congestion, Denies nasal discharge, Denies post nasal drip and Denies sore throat Card Denies chest pain, Denies chest pain at rest, Denies chest pain with activity, Denies claudication, Denies leg edema, Denies orthopnea and Denies paroxysmal nocturnal dyspnea Resp Denies chest congestion, Denies cough, Denies excessive phlegm production, Denies pain on inspiration, Denies pain with cough, Denies stridor and Denies wheezing Musc Denies myalgias Neuro Reports Normal hearing present and Denies headache(s) Endo Denies excessive sweating Jhonathan/Lymph Denies lymphadenopathy Aller/Immun Denies itchy eyes, Denies seasonal rhinorrhea and Denies wheezing Physical Exam Vital Signs: Last Vital Signs Pulse 82 10/13/24 10:46 BP 136/74 10/13/24 10:46 Pulse Ox 95 10/13/24 10:46 Oxygen Delivery Method Room Air 10/13/24 10:46 BMI result Body Mass Index 35.6 Const General: cooperative, healthy appearing, comfortable, no acute distress, well developed and alert Nutritional Appearance: obese Orientation/consciousness: patient oriented x3 Limitations: no limitations HEENT Head: Yes normal to inspection, Yes normocephalic and Yes atraumatic Ears: hearing grossly normal bilaterally and external ears normal Eyes General: appearance normal, both eyes and all related structures Eyelids: Yes eyelids normal Sclerae: sclerae normal EOM: EOMs intact bilaterally Neck Neck: Yes normal visual inspection and Yes no lymphadenopathy Lymphatic: no lymphadenopathy noted Chest Chest palpation & inspection: normal inspection of the chest Resp Effort & Inspection: normal respiratory effort, able to speak in complete sentences, no audible wheezes, no cough, no stridor, not tachypneic, no tripod positioning and no use of accessory muscles Auscultation: clear to auscultation bilaterally Cardio Jugular venous distension: no JVD Rate: regular rate Rhythm: regular rhythm Skin Other: warm, dry General skin exam: no rashes or lesions noted Neuro General: patient oriented x3 Cranial nerves: Yes Normal hearing present Cognition (Neuro): normal cognition Gait exam (Neuro): Normal gait present Extrem General: Yes normal to inspection, Yes capillary refill normal, Yes no clubbing, cyanosis or edema and Yes no pedal edema Psych Appearance: grossly normal and well kempt Speech and movement: Normal speech and movement present and Clear speech present Affect: normal affect Attitude: cooperative Thought process: Normal thought process present Thought content: Normal thought content present Insight: Good insight present (Psych) Judgement: Good judgement present (Psych) Assessment & Plan Assessment & Plan (1) Asthma: Code(s): J45.909 - Unspecified asthma, uncomplicated Category: Medical (2) Mediastinal lymphadenopathy: Code(s): R59.0 - Localized enlarged lymph nodes Category: Medical (3) Nicotine dependence: Code(s): F17.200 - Nicotine dependence, unspecified, uncomplicated Category: Medical Plan Prior chest CT from June 2024, revealed two pulmonary nodules <2mm as well as anterior mediastinal lymphadenopathy, largest measuring 3 cm. This was not noted on the February [address] report, however present and stable findings. Will repeat in 6 months to assess stability, which would be December 2024. She reports suboptimal effect on Arnuity will switch to Breo and continue albuterol MDI PRN. All questions were answered and patient is in agreement of plan. Will follow up in 6-8 weeks or sooner if needed. Orders: Orders CT chest w IV con 2 Months R59.0 - Localized enlarged lymph nodes Blood Urea Nitrogen Today Z01.818 - Encounter for other preprocedural examination Creatinine Today Z01.818 - Encounter for other preprocedural examination Medications: New fluticasone furoate-vilanterol 200-25 mcg/dose (Breo Ellipta) 1 inh inhalation DAILY 60 ea 3RF Coding Level of Care Code Est Pt Level 4 (42455) Diagnoses Asthma J45.909 Mediastinal lymphadenopathy R59.0 Nicotine dependence F17.200
[2024-10-13 10:46] VITALS: BP 136/74; PULSE 82; O2SAT 95; BMI 35.6
--- OUTSIDE RECORDS SUMMARY | 2024-10-13 11:18 | XMS_ITS | Encounter Summary ---
Author Organization [employer] Address [address] [place] [address] 7t [place] [address] Care Team Providers Care Mortgage Loan Counselor Name Role Phone Mychal Fields MD Primary Care Provide r Hima Fam Unavailable Unavailable Reason for Visit * Reason Comments Hypertension Blood in Urine Encounter Details Date Type Department Care Team ([facility] st Contact Info) Description 09/16/2024 10:00 AM EST Office Visit [facility] [address] [place] [address] Mychal Fields MD [address] [place] [address] JERRI (obstructive sleep apnea) (Primary Dx); Abnormal CT of the chest; Essential hypertension; Microscopic hematuria; Fibromyalgia; Subacute cough; Restrictive lung disease; Enlarged lymph nodes; Preventative health care Social History Tobacco Use Types Packs/Day Years Used Date Smoking Tobacco: Every Day Cigarettes Passive Smoke Exposure: Current Smokeless Tobacco: Never Tobacco Cessation:Ready to Q uit: Not Asked; Counseling Given: Not Answered Alcohol Use Standard Drinks/Week Comments Never 0 (1 standard drink = 0.6 oz pur e alcohol) Depression Answer Date Recorded Patient Health Questionnaire-9 Score 6 09/16/2024 Patient Health Questionnaire-9 Score 6 09/16/2024 Last PHQ-9: Questionnaire Data Not on file 0 09/16/2024 Housing Stability Answer Date Recorded What is your housing situation today? I have gee rebeka 05/15/[address] you li ve. Do you have problems with any of the following? None of the above 05/15/2024 Food Insecurity Answer Date Recorded Within the past 12 months, y ou worried that your food would run out before you got money to buy more: Never True 05/15/2024 Within the past 12 months,th e food you bought just didn't last and you didn't have enough money to get more: Never True 01/2024 Transportation Answer Date Recorded In the past 12 months, has l ack of transportation kept you from medical appts, meetings, work or from getting things needed for daily living? No 05/15/2024 Utilities Answer Date Recorded In the past 12 months, has t he electric, gas, oil or water company threatened to shut off services in your home? No 05/15/2024 Depression Answer Date Recorded Patient Health Questionnaire-2 Score 1 09/16/2024 Internet Access Answer Date Recorded Internet Access Q1 Yes 05/15/2024 Internet Access Q2 Not on file 05/15/2024 Comments No Sex and Gender Information Value Date Recorded Sex Assigned at Female 07/10/2022 10:15 AM EDT Legal Sex Female 10:15 AM EDT Gender Identity Choose not to disclose 10:15 AM EDT Sexual Orientation Choose not to disclose 2021 10:15 AM EDT documented as of this encounter Last Filed Vital Signs Vital Sign Reading Time Taken Comments Blood Pressure 127/80 09/16/2024 10:01 AM EST Pulse 95 09/16/2024 10:01 AM EST Temperature 36.2 ??C (97.1 ??F) 09/16/2024 10:[address] Respiratory Rate 20 09/16/2024 10:01 AM EST Oxygen Saturation 97% 09/16/2024 10:01 AM EST Inhaled Oxygen Concentration - - Weight 99 kg (218 lb 3.2 oz) 09/16/2024 10:01 AM EST Height 162.6 cm (5' 4 ) 09/16/2024 10:01 AM EST Body Mass Index 37.45 09/16/2024 10:01 AM EST documented in this encounter Progress Notes * Mychal Morris MD - 09/16/2024 10:00 AM EST SUBJECTIVE Elaine Rodas is a 53 y.o. adult who presents for Hypertension and Blood in Urine. Hypertension This is a chronic problem. Pertinent negatives include no chest pain, headaches or shortness of breath. Blood in Urine Pertinent negatives include no abdominal pain or fever. Review of Systems Constitutional: Negative for fever. HENT: Negative for sore throat. Respiratory: Negative for cough and shortness of breath. Cardiovascular: Negative for chest pain. Gastrointestinal: Negative for abdominal pain. Genitourinary: Positive for hematuria. Neurological: Negative for headaches. Allergies Allergen Reactions Gramineae Pollens Hydrocodone Other Reaction(s): STOMACH PAIN Lisinopril Cough Other reaction(s): unspecified Molds & Smuts Verapamil Other reaction(s): unspecified Other Reaction(s): unknown Penicillins Other Reaction(s): VAGINAL FUNGUS INFECTION OBJECTIVE Vitals: 09/16/24 1001 BP: 127/80 BP Location: Left arm Patient Position: Sitting BP Cuff Size: Large adult Pulse: 95 Resp: 20 Temp: 97.1 ??F (36.2 ??C) TempSrc: Temporal SpO2: 97% Weight: 218 lb 3.2 oz (99 kg) Height: 5' 4 (1.626 m) Physical Exam Vitals reviewed. Constitutional: Appearance: Normal appearance. HENT: Head: Normocephalic and atraumatic. Right Ear: External ear normal. Left Ear: External ear normal. Nose: Nose normal. Mouth/Throat: Mouth: Mucous membranes are moist. Eyes: Conjunctiva/sclera: Conjunctivae normal. Cardiovascular: Rate and Rhythm: Normal rate and regular rhythm. Pulmonary: Effort: Pulmonary effort is normal. Breath sounds: Normal breath sounds. Skin: General: Skin is warm. Neurological: Mental Status: She is alert. Mental status is at baseline. Assessment/Plan Problem List Items Addressed This Visit JERRI (obstructive sleep apnea) - Primary Pt had an at home sleep test that showed mild JERRI. Recommendation was to use Auto Cpap 5-15 cm. Pt tells me has an appointment in november Abnormal CT of the chest On February pt had a CT of Chest that showed: Enlarged anterior mediastinal lymph nodes. Infectious, inflammatory and neoplastic processes shouldbe considered. Chest CT follow-up, PET/CT or tissue sampling should be considered. Small 2 mm bilateral pulmonary nodules. This may represent peripheral or subpleural lymph nodes. Pt was encouraged smoking cessation, and she was referred to pulmonary, Seen 05/19/[address] 06/13/2024 showed: Stable anterior mediastinal lymphadenopathy Essential hypertension Patient here for a follow up She is on: Losartan 100 mg po daily, Norvasc 10 mg po daily Patient to continue taking medications as prescribed. Most recent Lab Results Component Value Date NA 139 08/05/2024 NA 143 06/13/2024 K 3.9 08/05/2024 K 3.9 06/13/2024 CL 105 08/05/2024 CL 109 (H) 06/13/2024 BUN 11 08/05/2024 BUN 11 06/13/2024 CREATININE 0.86 08/05/2024 CREATININE 0.82 06/13/2024 Within normal limits Microscopic hematuria Pt with previous c/o right sided flank pain, Urine dipstick positive for blood Seen in the past by Urology Renal U/S 11/07/2023 Normal Patient was seen by Urology 11/30/[address] Urogram. Pt never followed up. Pt tells me she missed the appointment Fibromyalgia Patient here for a follow up Her physical findings: trigger points found entire back, shoulders, knees and elbows. Patient stopped taking gabapentin before due to tiredness. She had agreed to attempt taking gabapentin again starting at a lower dose. Prescriptions: Gabapentin 100mg PO QD Pt used to be under the care of employee training specialist who had been prescribing Baclofen Subacute cough Patient here with c/o persistent cough with not improving with albuterol and associated chest and back discomfort since 06/19/24. Followed by pulmonology for abnormal CT chest. Pt was evaluated by Dr. Wynn at our [facility] who recommended to check D dimer given continued SOB despite bronchodilator and associated chest and back pain. Pt went to the ER but left after she had towait. Pt finished azithromycin (Zithromax) 250 MG tablet 08/05/24 Chest X-Rays ordered 08/05/24, pt tells me will go to have it done now ER precautions discussed. Pt asked to Seek medical attention for worsening symptoms. Relevant Orders XR Chest 2 Views D Dimer High Sensitivity (Completed) Restrictive lung disease Here for a f/u Smoker, c/o intermittent wheezing, exam today normal PFTs 12/13/2021 showed: Mild restrictive ventilatory defect with no bronchodilator response except in small to medium airways. Pt evaluated by Pulmonology last seen 06/2024 Recommended to follow up with them Enlarged lymph nodes /CT chest w IV con 06/2024 Stable anterior mediastinal lymphadenopathy Preventative health care Mammogram: : 09/24/2023 Normal Pap Smear: Pap NIL/HPV neg 03/2021. Pt had EGD and Colonoscopy by Dr Logan 09/06/2017 EGD was normal and Colonoscopy showed a Hyperplastic polyp. Dr Logan recommended a 5 year repeat. She had a repeat 08/30/2022 showed polyp and hemorrhoids GI recommended 5-7 year follow up documented in this encounter Miscellaneous Notes * Assessment & Plan Note - Mychal Morris MD - 09/16/2024 3:54 PM EST Associated Problem(s): Preventative health care Mammogram: : 09/24/2023 Normal Pap Smear: Pap NIL/HPV neg 03/2021. Pt had EGD and Colonoscopy by Dr Logan 09/06/2017 EGD was normal and Colonoscopy showed a Hyperplastic polyp. Dr Logan recommended a 5 year repeat. She had a repeat 08/30/2022 showed polyp and hemorrhoids GI recommended 5-7 year follow up * Assessment & Plan Note - Mychal Morris MD - 09/16/2024 3:52 PM EST Associated Problem(s): Enlarged lymph nodes /CT chest w IV con 06/2024 Stable anterior mediastinal lymphadenopathy * Assessment & Plan Note - Mychal Morris MD - 09/16/2024 3:49 PM EST Associated Problem(s): Restrictive lung disease Here for a f/u Smoker, c/o intermittent wheezing, exam today normal PFTs 12/13/2021 showed: Mild restrictive ventilatory defect with no bronchodilator response except in small to medium airways. Pt evaluated by Pulmonology last seen 06/2024 Recommended to follow up with them * Assessment & Plan Note - Mychal Morris MD - 09/16/2024 10:32 AM EST Associated Problem(s): Subacute cough Patient here with c/o persistent cough with not improving with albuterol and associated chest and back discomfort since 06/19/24. Followed by pulmonology for abnormal CT chest. Pt was evaluated by Dr. Wynn at our [facility] who recommended to check D dimer given continued SOB despite bronchodilator and associated chest and back pain. Pt went to the ER but left after she had towait. Pt finished azithromycin (Zithromax) 250 MG tablet 08/05/24 Chest X-Rays ordered 08/05/24, pt tells me will go to have it done now ER precautions discussed. Pt asked to Seek medical attention for worsening symptoms. * Assessment & Plan Note - Mychal Morris MD - 09/16/2024 10:26 AM EST Associated Problem(s): Fibromyalgia Patient here for a follow up Her physical findings: trigger points found entire back, shoulders, knees and elbows. Patient stopped taking gabapentin before due to tiredness. She had agreed to attempt taking gabapentin again starting at a lower dose. Prescriptions: Gabapentin 100mg PO QD Pt used to be under the care of employee training specialist who had been prescribing Baclofen * Assessment & Plan Note - Mychal Morris MD - 09/16/2024 10:22 AM EST Associated Problem(s): Microscopic hematuria Pt with previous c/o right sided flank pain, Urine dipstick positive for blood Seen in the past by Urology Renal U/S 11/07/2023 Normal Patient was seen by Urology 11/30/[address] Urogram. Pt never followed up. Pt tells me she missed the appointment * Assessment & Plan Note - Mychal Morris MD - 09/16/2024 10:17 AM EST Associated Problem(s): Essential hypertension Patient here for a follow up She is on: Losartan 100 mg po daily, Norvasc 10 mg po daily Patient to continue taking medications as prescribed. Most recent Lab Results Component Value Date NA 139 08/05/2024 NA 143 06/13/2024 K 3.9 08/05/2024 K 3.9 06/13/2024 CL 105 08/05/2024 CL 109 (H) 06/13/2024 BUN 11 08/05/2024 BUN 11 06/13/2024 CREATININE 0.86 08/05/2024 CREATININE 0.82 06/13/2024 Within normal limits * Assessment & Plan Note - Mychal Mroris MD - 09/16/2024 10:16 AM EST Associated Problem(s): Abnormal CT of the chest On February pt had a CT of Chest that showed: Enlarged anterior mediastinal lymph nodes. Infectious, inflammatory and neoplastic processes shouldbe considered. Chest CT follow-up, PET/CT or tissue sampling should be considered. Small 2 mm bilateral pulmonary nodules. This may represent peripheral or subpleural lymph nodes. Pt was encouraged smoking cessation, and she was referred to pulmonary, Seen 05/19/[address] 06/13/2024 showed: Stable anterior mediastinal lymphadenopathy * Assessment & Plan Note - Mychal Morris MD - 09/16/2024 10:10 AM EST Associated Problem(s): JERRI (obstructive sleep apnea) Pt had an at home sleep test that showed mild JERRI. Recommendation was to use Auto Cpap 5-15 cm. Pt tells me has an appointment in november documented in this encounter Plan of Treatment Not on file documented as of this encounter Procedures Procedure Name Priority Date/Time Associated Diagnosis Comments XR CHEST 2 VIEWS Routine 09/22/2024 12:5 0 PM EST Subacute cough D DIMER HIGH SENSITIVITY Routine 09/16/2024 11:09 AM EST Subacute cough documented in this encounter Results * XR Chest 2 Views (09/22/2024 12:50 PM EST) Anatomical Region Laterality Modality Chest Radiographic Hilda ging 09/22/2024 12:5 0 PM EST Narrative 09/24/2024 10:02 AM EST ? [facility] ?[address] ?[place] [address] ?XRay Report ? Signed ? Patient: Elaine Rodas ?MR#: [id number] ? : 1970 ?Acct:[id number] ? Age/Sex: 53 / F ?ADM Date: 09/22/24 ? Loc: HO.XRAY ? Attending Dr: Syed Coreas MD ? Ordering Physician: Mychal Long MD ?? Date of Service: 09/22/24 ?? Procedure(s): XR chest 2V ?? Accession Number(s): [id number] ? cc: Mychal Long MD ? EXAMINATION: ?? XR CHEST ? CLINICAL INFORMATION: ?? cough ? COMPARISON: ?? None available. ? TECHNIQUE: ?? 2 views of the chest were obtained. ? FINDINGS: ?? No significant abnormality is noted involving the heart, lungs, ?? mediastinum, bony thorax or soft tissues. ? XR/XR chest 2V ?? IMPRESSION: ?? Unremarkable examination. ? Electronically signed by: ??Chidi Self MD ??09/24/2024 09:59 AM EST RP ? Dictated By: ?Clair,Chidi S ? Signed By: ?<Electronically signed by Chidi Self MD in OV> ?09/24/24 0959 ? DD/ 1250 ? TD/TT: 09/22/24 1312 ? Vehicle Maintenance Supervisor: GARY ? Procedure Note Donartieter, Image - 09/24/[address] [address] XRay Report Signed Patient: Elaine RodasMR#: [id number] : 1970Acct:[id number] Age/Sex: 53 / FADM Date: 09/22/24 Loc: [facility]SELIN[facility] Attending Dr: Syed Coreas MD Ordering Physician: Mychal Long MD Date of Service: 09/22/24 Procedure(s): XR chest 2V Accession Number(s): [id number] cc: Mychal Long MD EXAMINATION: XR CHEST CLINICAL INFORMATION: cough COMPARISON: None available. TECHNIQUE: 2 views of the chest were obtained. FINDINGS: No significant abnormality is noted involving the heart, lungs, mediastinum, bony thorax or soft tissues. XR/XR chest 2V IMPRESSION: Unremarkable examination. Electronically signed by: Chidi Self MD 09/24/2024 09:59 AM EST Dictated By: Chidi Self MD Signed By: <Electronically signed by Chidi Self MD in OV> 09/24/24 0959 DD/ 1250 TD/TT: 09/22/24 1312 Vehicle Maintenance Supervisor: GARY us Mychal Morris MD IMG XR PROCEDURES Fin al Result * D Dimer High Sensitivity (09/16/2024 11:09 AM EST) D Dimer High Sensitivity 203 NG/ML [facility] Comment:D-DIMER HS REFERENCE RANGENote: Our assay reports D-Dimer Units (D- DU).The cut-off value for venous thromboembolic (VTE) disease is230 ng/mL. This value has a very high negative predictivevalue when the patient has a low to moderate clinicalprobability of VTE.The upper limit of normal is 243 ng/mL. Blood 09/16/2024 11:0 9 AM EST 09/16/2024 1:03 PM EST us Mychal Morris MD LAB BLOOD ORDERABLES Final Result [facility] [address] [place] [address] [phone] documented in this encounter Visit Diagnoses Diagnosis JERRI (obstructive sleep apnea)- Primary Obstructive sleep apnea (adult) (pediatric) Abnormal CT of the chest Nonspecific (abnormal) findings on radiological and other examination of other intrathoracic organs Essential hypertension Unspecified essential hypertension Microscopic hematuria Fibromyalgia Unspecified myalgia and myositis Subacute cough Restrictive lung disease Other diseases of lung, not elsewhere classified Enlarged lymph nodes Enlargement of lymph nodes Preventative health care Routine general medical examination at a health care facility documented in this encounter Additional Health Concerns Assessment Noted Time PHQ-9 Depression Total Score: 6 09/16/19 25 10:06 AM EST documented as of this encounter Care Teams Mortgage Loan Counselor Relationship Specialty Start Date End Date Mychal Fields MD [address] [place] [address] PCP - General Internal Medicine 04/30/14 Hima Fam FNP [address] [place] [address] Nurse Practitioner Family Medicine 08/01/23 documented as of this encounter
--- OUTSIDE RECORDS SUMMARY | 2024-10-13 11:18 | XMS_ITS | Encounter Summary ---
Author Organization [employer] Address [address] [facility] [address] [place] [address] Care Team Providers Care Workforce Consultant Name Role Phone Mychal Fields MD Primary Care Provide r Hima Fam Unavailable Unavailable Encounter Details Date Type Department Care Team (Latest Contact Info) Description 09/16/2024 Travel Social History Tobacco Use Types Packs/Day Years Used Date Smoking Tobacco: Every Day Cigarettes Passive Smoke Exposure: Current Smokeless Tobacco: Never Alcohol Use Standard Drinks/Week Comments Never 0 [...] AM EDT documented as of this encounter Plan of Treatment Not on file documented as of this encounter Visit Diagnoses Not on filedocumented in this encounter Additional Health Concerns Assessment Noted Time PHQ-9 Depression Total Score: 6 09/16/19 25 10:06 AM EST documented as of this encounter Care Teams Workforce Consultant Relationship Specialty Start Date End Date Mychal Fields MD [address] [place] [address] PCP - General Internal Medicine 04/30/14 Hima Fam FNP [address] [place] [address] Nurse Practitioner Family Medicine 08/01/23 documented as of this encounter
--- OUTSIDE RECORDS SUMMARY | 2024-10-13 11:18 | XMS_ITS | Encounter Summary ---
Author Organization [employer] Address [address] [place] [address] [address] [place] [address] Care Team Providers Care Thermostatic Controls Supervisor Name Role Phone Mychal Fields MD Primary Care Provide r Hima Fam Unavailable Unavailable Reason for Visit * Reason Onset Date Comments Medication Question 09/18/2022 Appointment 09/18/2022 T/C placed to pt regarding to schedule her next follow up for psychopharmacology. Pt agrees to schedule for 10/09/22 @ 4pm. Encounter Details Date Type Department Care Team (Late st Contact Info) Description 09/18/2022 Telephone [facility] [address] [place], [place] [phone] Mychal Fields MD [address] [place], [place] [phone] Medication Question; Appointment (T/C placed to pt regarding to schedule her next follow up for psychopharmacology. Pt agrees to schedule for 10/09/22 @ 4pm.) Social History Tobacco Use Types Packs/Day Years Used Date Smoking Tobacco: Never Assessed Depression Answer Date Recorded Patient Health Questionnaire-9 [...] Access Q2 Not on file 05/15/2024 Comments Unknown Sex and Gender Information Value Date Recorded Sex Assigned at Female 07/10/2022 10:15 AM EDT Legal Sex Female 10:15 AM EDT Gender Identity Choose not to disclose 10:15 AM EDT Sexual Orientation Choose not to disclose 2021 10:15 AM EDT documented as of this encounter Miscellaneous Notes * Telephone Encounter - Jerrica Carson - 09/18/2022 2:06 PM EST Tc from pt [facility] requesting for Evie Fam [place] to call pt per pt request regarding medication, Does not know medication name . Please contact at [phone] documented in this encounter Plan of Treatment Not on file documented as of this encounter Visit Diagnoses Not on filedocumented in this encounter Care Teams Thermostatic Controls Supervisor Relationship Specialty Start Date End Date Mychal Fields MD [address] [place] [id number] PCP - General Internal Medicine 04/30/14 Hima Fam FNP [address] [place] [address] Nurse Practitioner Family Medicine 08/01/23 documented as of this encounter
--- OUTSIDE RECORDS SUMMARY | 2024-10-13 11:18 | XMS_ITS | Encounter Summary ---
Author Organization [employer] Address [address] [place] [address] 7 [place] [address] Care Team Providers Care Yeast Stacker Name Role Phone Mychal Fields MD Primary Care Provide r Hima Fam Unavailable Unavailable Encounter Details Date Type Department Care Team (Late st Contact Info) Description 12/04/2022 Telephone [facility] [address] [place], [place] [phone] Mychal Fields MD [address] [place], [place] [phone] Social History Tobacco Use Types Packs/Day Years Used Date Smoking Tobacco: Never Assessed Comments Unknown Sex and Gender Information Value [...] Assessment Noted Time PHQ-9 Depression Total Score: 7 10/09/19 23 4:00 PM EST documented as of this encounter Care Teams Yeast Stacker Relationship Specialty Start Date End Date Mychal Fields MD [address] [place], [place] [phone] PCP - General Internal Medicine 04/30/14 Hima Fam FNP [address] [place] [phone] Nurse Practitioner Family Medicine 08/01/23 documented as of this encounter
--- OUTSIDE RECORDS SUMMARY | 2024-10-13 11:18 | XMS_ITS | Encounter Summary ---
Author Organization [employer] Address [address] [place] [address] [address] [address] Care Team Providers Care Glass Frame Fitter Name Role Phone Mychal Fields MD Primary Care Provide r Hima Fam Unavailable Unavailable Reason for Visit * Reason Comments Pre-op Exam Date of Surgery: 08/04Surgical procedure being done: Cataracts right ey Encounter Details Date Type Department Care Team (Late st Contact Info) Description 10/06/2024 1:15 PM EST Office Visit [facility] [address] [place] [address] Nabeel Magana MD [address] [place] [address] Pre-op evaluation (Primary Dx) Social History Tobacco Use Types Packs/Day Years [...] is your housing situation today? I have geefaisal staley 05/15/[address] you li [...] Sign Reading Time Taken Comments Blood Pressure 144/88 10/06/2024 1:43 PM EST manually checked Pulse 79 10/06/2024 1:43 PM EST Temperature 36.6 ??C (97.9 ??F) 10/06/2024 1 :43 PM EST Respiratory Rate 18 10/06/2024 1:43 PM EST Oxygen Saturation 99% 10/06/2024 1:4 3 PM EST Inhaled Oxygen Concentration - - Weight 98.9 kg (218 lb) 10/06/2024 1:43 PM EST Height 162.6 cm (5' 4 ) 10/06/2024 1:43 PM EST Body Mass Index 37.42 10/06/2024 1:43 PM EST documented in this encounter Progress Notes * Nabeel Magana MD - 10/06/2024 1:15 PM EST Subjective Patient ID: Elaine Rodas is a 53 y.o. adult who presents for Pre-op Exam (Date of Surgery: 10/21/24/Surgical procedure being done: Cataracts right ey /). HPI Here for preop evaluation prior to cataract surgery of the right eye. Patient is asymptomatic. Denies chest pain/SOB/PND/palpitations. Exercise tolerance more than 4 METS. No GI complaint. No bleeding diathesis. Patient Active Problem List Diagnosis Anxiety and depression Chronic low back pain Essential hypertension Fibromyalgia Smoker Restrictive lung disease Microscopic hematuria Positive MAURICE (antinuclear antibody) Chronic nonintractable headache Preventative health care H/O benign essential tremor Oral phase dysphagia Acquired clavicle deformity Right foot pain Left foot pain Uterine prolapse Hair loss Enlarged lymph nodes Family history of colon cancer Hypertrophy of lingual tonsil Hypertrophy of tonsils and adenoids Irritable bowel syndrome with both constipation and diarrhea Nicotine dependence Open-angle glaucoma 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 18 g 3 amLODIPine (Norvasc) 10 MG tablet TAKE 1 TABLET BY MOUTH EVERY DAY 90 tablet 0 Arnuity Ellipta 100 MCG/ACT inhaler Inhale 1 puff Once per day. Blood Pressure Monitor kit 1 vial in the morning. 1 kit 0 busPIRone (Buspar) 10 MG tablet Take 1 tablet by mouth if needed in the morning, at noon, and at bedtime (anxiety). cholecalciferol (D3) 50 MCG (1999 UT) tablet TAKE 1 TABLET BY MOUTH EVERY DAY 90 tablet 0 clonazePAM (KlonoPIN) 1 MG tablet TAKE 1 TABLET (1 MG) BY MOUTH NEEDED IN THE MORNING AT AT NOONAND AT BEDTIME FOR ANXIETY 90 tablet 0 cyclobenzaprine (Flexeril) 10 MG tablet Take 1 tablet (10 mg) by mouth 3 times daily for 10 days. 30 tablet 0 Diclofenac Sodium 1 % gel Apply topically to affected area four times daily as needed 150 g 0 Emgality 120 MG/ML auto-injector Inject 120 mg under the skin every 30 (thirty) days. estradiol (Estrace) 0.1 MG/GM vaginal cream Insert 1 g vaginally twice a week 42.5 g 0 fluticasone (Flonase) 50 MCG/ACT nasal spray SHAKE BEFORE FIRST USE PRIME AFTER USE CLEAN TIP 1 SPRAY INTO EACH NOSTRIL TWICE A DAY 48 mL 0 gabapentin (Neurontin) 100 MG capsule TAKE 1 CAPSULE BY MOUTH EVERY 8 HOURS 90 capsule 0 hydrOXYzine HCl (Atarax) 25 MG tablet Take 1 tablet (25 mg) by mouth every 6 (six) hours if needed for anxiety. 200 tablet 5 lidocaine (Lidoderm) 5 % patch APPLY 1 PATCH TOPICALLY TO SKIN IN THE MORNING. LEAVE ON FOR 12 HOURS AND OFF FOR 12 HOURS DIRECTED 30 patch 3 losartan (Cozaar) 100 MG tablet TAKE 1 TABLET BY MOUTH EVERY DAY 90 tablet 2 minoxidil (Loniten) 2.5 MG tablet Take 1 tablet (2.5 mg) by mouth in the morning. 30 tablet 11 nicotine polacrilex (Nicorette) 2 MG gum Chew 2 mg every 2 (two) hours if needed. pantoprazole (ProtoNix) 20 MG EC tablet TAKE 1 TABLET BY MOUTH 2 TIMES EVERY DAY ON AN EMPTY STOMACH 180 tablet 0 rizatriptan POWER SWEEPER OPERATOR (Maxalt-POWER SWEEPER OPERATOR) 5 MG disintegrating tablet PLEASE SEE ATTACHED FOR DETAILED DIRECTIONS valACYclovir (Valtrex) 500 MG tablet 1 tablet twice a day x 3 days prn outbreak 30 tablet 2 varenicline (Chantix) 1 MG tablet TAKE 1 TABLET BY MOUTH TWICE A DAY WITH GLASS OF WATER AFTER MEALS 56 tablet 1 zolpidem (Ambien) 10 MG tablet TAKE 1 TABLET BY MOUTH EVERY DAY AT BEDTIME NEEDED FOR SLEEP 30 tablet 0 No current facility-administered medications on file prior to visit. Allergies Allergen Reactions Gramineae Pollens Hydrocodone Other Reaction(s): STOMACH PAIN Lisinopril Cough Other reaction(s): unspecified Molds & Smuts Verapamil Other reaction(s): unspecified Other Reaction(s): unknown Penicillins Other Reaction(s): VAGINAL FUNGUS INFECTION Review of Systems Constitutional: Negative for appetite change, chills and diaphoresis. Eyes: Negative for pain, redness and itching. Respiratory: Negative for cough, shortness of breath and stridor. Cardiovascular: Negative for leg swelling. Gastrointestinal: Negative for anal bleeding, blood in stool and constipation. Musculoskeletal: Negative for back pain and gait problem. Objective BP (!) 144/88 (BP Location: Left arm, Patient Position: Sitting, BP Cuff Size: Large adult) Comment: manually checked Pulse 79 Temp 97.9 ??F (36.6 ??C) (Temporal) Resp 18 Ht 5' 4 (1.626 m) Wt 218 lb (98.9 kg) LMP (LMP Unknown) Comment: 46 SpO2 99% BMI 37.42 kg/m?? Physical Exam Constitutional: General: She is not in acute distress. Appearance: Normal appearance. She is not ill-appearing, toxic-appearing or diaphoretic. Cardiovascular: Rate and Rhythm: Normal rate. Pulmonary: Effort: Pulmonary effort is normal. Abdominal: General: Abdomen is flat. There is no distension. Palpations: There is no mass. Neurological: Mental Status: She is alert. Assessment/Plan Diagnoses and all orders for this visit: Pre-op evaluation Comments: Patient is an intermediate risk for low risk surgery No contraindication to the procedure History of sleep apnea. pt does not have a CPAP machine yet Advised to hold minoxidil the day of the surgery To take rest of medication with a sip of water the day of the surgery Deep venous thrombosis prophylaxis documented in this encounter Plan of Treatment Not on file documented as of this encounter Visit Diagnoses Diagnosis Pre-op evaluation- Primary documented in this encounter Additional Health Concerns Assessment Noted Time PHQ-9 Depression Total Score: 6 09/16/19 25 10:06 AM EST documented as of this encounter Care Teams Glass Frame Fitter Relationship Specialty Start Date End Date Mychal Fields MD [address] [place] [address] PCP - General Internal Medicine 04/30/14 Hima Fam FNP [address] [place] [address] Nurse Practitioner Family Medicine 08/01/23 documented as of this encounter
--- OUTSIDE RECORDS SUMMARY | 2024-10-13 11:18 | XMS_ITS | Encounter Summary ---
Author Organization [employer] Address [address] [place] [address] [address] [place] [address] Care Team Providers Care Tag Meter Operator Name Role Phone Mychal Fields MD Primary Care Provide r Hima Fam Unavailable Unavailable Reason for Visit * Reason Onset Date Comments Appointment Request 12/04/2022 Encounter Details Date Type Department Care Team ([facility] Contact Info) Description 12/04/2022 Telephone [facility] [address] [place] [address] Mychal Fields MD [address] [place] [address] Appointment Request Social History Tobacco Use Types Packs/Day Years [...] encounter Miscellaneous Notes * Telephone Encounter - Melissa Ramirez - 02/08/2023 2:38 PM EDT Tc from pt requesting to r/s appt on 10/19/22 ( ff/u Bp ) Please contact pt at [phone] * Telephone Encounter - Wesley Collins - 12/04/2022 2:02 PM EDT Tc from pt requesting to r/s appt on 10/19/22 ( ff/u Bp ) Please contact pt at [phone] documented in this encounter Plan of Treatment Not on file documented as of this encounter Visit Diagnoses Not on filedocumented in this encounter Additional Health Concerns Assessment Noted Time PHQ-9 Depression Total Score: 7 10/09/19 4:00 PM EST documented as of this encounter Care Teams Tag Meter Operator Relationship Specialty Start Date End Date Mychal Fields MD [address] [place] [address] PCP - General Internal Medicine 04/30/14 Hima Fam FNP [address] [place] [address] Nurse Practitioner Family Medicine 08/01/23 documented as of this encounter
--- OUTSIDE RECORDS SUMMARY | 2024-10-13 11:18 | XMS_ITS | Encounter Summary ---
Author Organization [employer] Address [address] [place] [address] [address] [place] [address] Care Team Providers Care Senior Counsel Name Role Phone Mychal Fields MD Primary Care Provide r Hima Fam Unavailable Unavailable Reason for Visit * Reason Comments Med Refill Encounter Details Date Type Department Care Team (Late st Contact Info) Description 10/11/2024 Refill [facility] [address] [place] [address] Bette Wynn MD [address] [place] [address] Low vitamin D level Social History Tobacco Use Types Packs/Day Years [...] your housing situation today? I have gee staley 05/15/[address] you [...] as of this encounter Visit Diagnoses Diagnosis Low vitamin D level documented in this encounter Additional Health Concerns Assessment Noted Time PHQ-9 Depression Total Score: 6 09/16/19 25 10:06 AM EST documented as of this encounter Care Teams Senior Counsel Relationship Specialty Start Date End Date Mychal Fields MD [address] [place] [address] PCP - General Internal Medicine 04/30/14 Hima Fam FNP [address] [place] [address] Nurse Practitioner Family Medicine 08/01/23 documented as of this encounter
--- OUTSIDE RECORDS SUMMARY | 2024-10-13 11:18 | XMS_ITS | Encounter Summary ---
Author Organization [employer] Address [address] [place] [address] [address] [place] [address] Care Team Providers Care Plater Supervisor Name Role Phone Mychal Fields MD Primary Care Provide r Hima Fam Unavailable Unavailable Encounter Details Date Type Department Care Team (Late st Contact Info) Description 04/24/2023 Orders Only [facility] [address] [place] [address] Zena Harley MD [address] [place] [address] Acquired clavicle deformity (Primary Dx) Social History Tobacco Use Types Packs/Day Years Used Date Smoking Tobacco: Never Smokeless Tobacco: Never Comments Unknown Sex and Gender Information Value Date Recorded Sex Assigned at Female 07/10/2022 10:15 AM EDT Legal Sex Female 10:15 AM EDT Gender Identity Choose not to disclose 10:15 AM EDT Sexual Orientation Choose not to disclose 2021 10:15 AM EDT documented as of this encounter Plan of Treatment Scheduled Orders Name Type Priority Associated Diagnoses Orde r Schedule XR Sternoclavicular Joints 3+ Views Imaging Routine Acquired clavicle deformity Expected: 04/24/2023 (Approximate), Expires: 04/24/2024 documented as of this encounter Procedures Procedure Name Priority Date/Time Associated Diagnosis Comments XR CHEST 2 VIEWS Routine 05/14/2023 4:24 PM EDT XR FOOT 3+ VIEWS RIGHT Routine 05/10/2023 11:44 AM EDT FL ESOPHAGUS BARIUM SWALLOW WITH AIR Routine 05/08/2023 10:19 AM EDT documented in this encounter Results * XR Chest 2 Views (05/14/2023 4:24 PM EDT) Anatomical Region Laterality Modality Chest Radiographic Hilda ging 05/14/2023 4:24 PM EDT Narrative 05/14/2023 4:45 PM EDT ? [facility] ?[address] ?[place] [address] ?XRay Report ? Signed ? Patient: Elaine Rodas ?MR#: [id number] ? : 1970 ?Acct:[id number] ? Age/Sex: 52 / F ?ADM Date: 05/14/23 ? Loc: HO.ED ? Attending Dr: ? Ordering Physician: Vee Castano NP ?? Date of Service: 05/14/23 ?? Procedure(s): XR chest 2V ?? Accession Number(s): [id number] ? cc: Mychal Long MD; Vee Castano NP ? EXAMINATION: ?? XR CHEST ? CLINICAL INFORMATION: ?? Chest pain and dyspnea ? COMPARISON: ?? Previous chest x-ray October 2017 ? TECHNIQUE: ?? 2 views of the chest were obtained. ? FINDINGS: ?? No significant abnormality is noted involving the heart, lungs, ?? mediastinum, bony thorax or soft tissues. ?? Degenerative changes of the spine. ? XR/XR chest 2V ?? IMPRESSION: ?? No evidence for acute disease in the chest. ? Dictated By: ?Lydia Oneal MD ? Signed By: ?<Electronically signed by Lydia Oneal MD in OV> ? 05/14/23 1642 ? DD/ 1624 ? TD/TT: ? Lead Electrical Engineer: SUJ ? Procedure Note Yas Almodovar - 05/14/2023 [facility] [address] [facility] [place] [address] XRay Report Signed Patient: Elaine RodasMR#: [id number] : 1970Acct:[id number] Age/Sex: 52 / FADM Date: 05/14/23 Loc: HO.ED Attending Dr: Ordering Physician: Vee Castano NP Date of Service: 05/14/23 Procedure(s): XR chest 2V Accession Number(s): [id number] cc: Mychal Long MD; Vee Castano NP EXAMINATION: XR CHEST CLINICAL INFORMATION: Chest pain and dyspnea COMPARISON: Previous chest x-ray October 2017 TECHNIQUE: 2 views of the chest were obtained. FINDINGS: No significant abnormality is noted involving the heart, lungs, mediastinum, bony thorax or soft tissues. Degenerative changes of the spine. XR/XR chest 2V IMPRESSION: No evidence for acute disease in the chest. Dictated By: Lydia Oneal MD Signed By: <Electronically signed by Lydia Oneal MD in OV> 05/14/23 1642 DD/ 1624 TD/TT: Lead Electrical Engineer: [facility] External Provider IMG XR PROCEDURES Edited Result - Final * XR Foot 3+ Views Right (05/10/2023 11:44 AM EDT) Anatomical Region Laterality Modality Lower Extremities, Foot Right Radiogra phic Imaging 05/10/2023 11:4 4 AM EDT Narrative 05/10/2023 12:08 PM EDT ?[facility] ?[address] ?[place] [address] ?XRay Report ? Signed ? Patient: Clark,Elaine ?MR#: [id number] ? : 1970 ?Acct:[id number] ? Age/Sex: 52 / F ?ADM Date: 08/31/23 ? Loc: HO.HHCX ? Attending Dr: Mychal Long MD ? Ordering Physician: Mychal Long MD ?? Date of Service: 05/10/23 ?? Procedure(s): XR foot RT min 3V ?? Accession Number(s): [id number] ? cc: Mychal Long MD ? EXAMINATION: ?? XR FOOT, RIGHT ? CLINICAL INFORMATION: ?? Right foot pain. ? COMPARISON: ?? None available. ? TECHNIQUE: ?? AP, lateral, and oblique views of the right foot. ? FINDINGS: ?? There is no acute fracture or dislocation. The tarsal bones are ?? normally aligned. Small plantar and retrocalcaneal spurs are noted. The ?? soft tissues are unremarkable. ? XR/XR foot RT min 3V ?? IMPRESSION: ?? Small degenerative calcaneal spurs. No acute fracture. ? Dictated By: ?Rafat Tijerina MD ? Signed By: ?<Electronically signed by Rafat Tijerina MD in OV> ?05/10/23 1205 ? DD/ 1144 ? TD/TT: ? Lead Electrical Engineer: GR ? Procedure Note Nishi, Image - 05/10/[address] [address] XRay Report Signed Patient: Elaine RodasMR#: [id number] : 1970Acct:[id number] Age/Sex: 52 / FADM Date: 05/10/23 Loc: HO.HHCX Attending Dr: Mychal Long MD Ordering Physician: Mychal Long MD Date of Service: 05/10/23 Procedure(s): XR foot RT min 3V Accession Number(s): [id number] cc: Mychal Long MD EXAMINATION: XR FOOT, RIGHT CLINICAL INFORMATION: Right foot pain. COMPARISON: None available. TECHNIQUE: AP, lateral, and oblique views of the right foot. FINDINGS: There is no acute fracture or dislocation. The tarsal bones are normally aligned. Small plantar and retrocalcaneal spurs are noted. The soft tissues are unremarkable. XR/XR foot RT min 3V IMPRESSION: Small degenerative calcaneal spurs. No acute fracture. Dictated By: Rafat Tijerina MD Signed By: <Electronically signed by Rafat Tijerina MD in OV> 08/31/23 1205 DD/ 1144 TD/TT: Lead Electrical Engineer: GR us Mychal Morris MD IMG XR PROCEDURES Fin al Result * FL Esophagus Barium Swallow w/Air (05/08/2023 10:19 AM EDT) Anatomical Region Laterality Modality Head, Neck Radiographic Hilda ging 05/08/2023 10:1 9 AM EDT Narrative 05/08/2023 4:35 PM EDT ? [facility] ?[address] ?[place] [address] ? Fluoroscopy Report ? Signed ? Patient: Elaine Rodas ?MR#: [id number] ? : 1970 ?Acct:[id number] ? Age/Sex: 52 / F ?ADM Date: 05/08/23 ? Loc: HO.XRAY ? Attending Dr: Mychal Long MD ? Ordering Physician: Mychal Long MD ?? Date of Service: 05/08/23 ?? Procedure(s): FL barium swallow with air ?? Accession Number(s): [id number] ? cc: Mychal Long MD ? EXAMINATION: ?? XR FLUOROSCOPY BARIUM SWALLOW WITH AIR ? CLINICAL INFORMATION: ?? Dysphasia, globus sensation. ? COMPARISON: ?? None available for direct comparison. ? TECHNIQUE: ?? Air-contrast barium swallow was performed utilizing fluoroscopic ?? guidance within and thick barium and effervescent granules utilizing ?? standard technique. Numerous spot images were obtained during the exam. ? FINDINGS: ?? Hypopharyngeal swallow demonstrates transient penetration into the ?? larynx to the level of the false cords. No definite subglottic or ?? glottic aspiration identified. This cleared with subsequent throat ?? clearing. Otherwise, the structures of the hypopharynx have a normal ?? appearance. No significant pooling in the piriform sinuses or ?? vallecula. ? The esophagus has a normal caliber without evidence of mass or ?? stricture. No definite mucosal abnormality identified. Primary ?? peristalsis was normal, however there are mild tertiary contractions ?? which were nonpropulsive, consistent with mild presbyesophagus. ? No hiatus hernia identified. There is mild gastroesophageal reflux ?? identified during the course of the examination to the level of the ?? inferior aortic arch. ? Images of the stomach demonstrated normal contour and fold pattern. No ?? ulcerations or masses. ? Imaging of the duodenal bulb and proximal duodenum appear normal. ? FLUOROSCOPY TIME: ?? 4.0 minutes ? 34 spot images obtained. ? DOSE AREA PRODUCT: ?? 41.380 uGy-m2 (microgray-meter squared) ? FL/FL barium swallow with air ?? IMPRESSION: ? 1. Transient laryngeal penetration identified on thick barium without ?? gross glottic or subglottic aspiration. This cleared with subsequent ?? throat clearing. ?? 2. No hiatus hernia. Mild gastroesophageal reflux identified. ?? 3. Mild presbyesophagus. Esophagus otherwise normal. ?? 4. Normal-appearing stomach, duodenal bulb, and duodenum. ? Dictated By: ?Elias Courtney MD ? Signed By: ?<Electronically signed by Elias Courtney MD in OV> ?05/08/23 1632 ? DD/ 1019 ? TD/TT: ? Lead Electrical Engineer: ? Procedure Note Yas Almodovar - 05/08/2023 [place] [address] Fluoroscopy Report Signed Patient: Elaine RodasMR#: [id number] : 1970Acct:[id number] Age/Sex: 52 / FADM Date: 05/08/23 Loc: HO.XRAY Attending Dr: Mychal Long MD Ordering Physician: Mychal Long MD Date of Service: 05/08/23 Procedure(s): FL barium swallow with air Accession Number(s): [id number] cc: Mychal Long MD EXAMINATION: XR FLUOROSCOPY BARIUM SWALLOW WITH AIR CLINICAL INFORMATION: Dysphasia, globus sensation. COMPARISON: None available for direct comparison. TECHNIQUE: Air-contrast barium swallow was performed utilizing fluoroscopic guidance within and thick barium and effervescent granules utilizing standard technique. Numerous spot images were obtained during the exam. FINDINGS: Hypopharyngeal swallow demonstrates transient penetration into the larynx to the level of the false cords. No definite subglottic or glottic aspiration identified. This cleared with subsequent throat clearing. Otherwise, the structures of the hypopharynx have a normal appearance. No significant pooling in the piriform sinuses or vallecula. The esophagus has a normal caliber without evidence of mass or stricture. No definite mucosal abnormality identified. Primary peristalsis was normal, however there are mild tertiary contractions which were nonpropulsive, consistent with mild presbyesophagus. No hiatus hernia identified. There is mild gastroesophageal reflux identified during the course of the examination to the level of the inferior aortic arch. Images of the stomach demonstrated normal contour and fold pattern. No ulcerations or masses. Imaging of the duodenal bulb and proximal duodenum appear normal. FLUOROSCOPY TIME: 4.0 minutes 34 spot images obtained. DOSE AREA PRODUCT: 41.380 uGy-m2 (microgray-meter squared) FL/FL barium swallow with air IMPRESSION: 1. Transient laryngeal penetration identified on thick barium without gross glottic or subglottic aspiration. This cleared with subsequent throat clearing. 2. No hiatus hernia. Mild gastroesophageal reflux identified. 3. Mild presbyesophagus. Esophagus otherwise normal. 4. Normal-appearing stomach, duodenal bulb, and duodenum. Dictated By: Elias Courtney MD Signed By: <Electronically signed by Elias Courtney MD in OV> 05/08/23 1632 DD/ 1019 TD/TT: Lead Electrical Engineer: us Mychal Morris MD IMG FLUOROSCOPY UBALDO HERNANDES Final Result documented in this encounter Visit Diagnoses Diagnosis 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 documented in this encounter Additional Health Concerns Assessment Noted Time PHQ-9 Depression Total Score: 8 02/09/20 23 11:04 AM EDT documented as of this encounter Care Teams Plater Supervisor Relationship Specialty Start Date End Date Mychal Fields MD [address] [place] [address] PCP - General Internal Medicine 8/21/14 Hima Fam FNP [address] [place] [address] Nurse Practitioner Family Medicine 08/01/23 documented as of this encounter
--- OUTSIDE RECORDS SUMMARY | 2024-10-13 11:18 | XMS_ITS | Encounter Summary ---
Author Organization [employer] Address [address] [place] [address] [address] [place] [address] Care Team Providers Care Dragger Out Name Role Phone Mychal Fields MD Primary Care Provide r Hima Fam Unavailable Unavailable Reason for Visit * Reason Onset Date Comments Bhavana Recall 10/03/2024 Encounter Details Date Type Department Care Team ([facility] Contact Info) Description 10/03/2024 Telephone [facility] [address] [place] [address] Mychal Fields MD [address] [place] [address] December Recall Social History Tobacco Use Types Packs/Day Years [...] encounter Miscellaneous Notes * Telephone Encounter - Basia Martins [place] - 10/03/2024 3:37 PM EST T/C- Airport Operations Specialist Left Voice Mail to return call to schedule an appointment. Recall letter sent. Appointment: Office Visit Note: HTN Month: December With: Annalisa Please schedule appointment if Patient calls Back. documented in this encounter Plan of Treatment Not on file documented as of this encounter Visit Diagnoses Not on filedocumented in this encounter Additional Health Concerns Assessment Noted Time PHQ-9 Depression Total Score: 6 09/16/19 25 10:06 AM EST documented as of this encounter Care Teams Dragger Out Relationship Specialty Start Date End Date Mychal Fields MD [address] [place] [address] PCP - General Internal Medicine 04/30/14 Hima Fam FNP [address] [place] [address] Nurse Practitioner Family Medicine 08/01/23 documented as of this encounter
--- OUTSIDE RECORDS SUMMARY | 2024-10-13 11:18 | XMS_ITS | Encounter Summary ---
Author Organization [employer] Address [address] [place] [address] 7 [place] [address] Care Team Providers Care Rn Security Name Role Phone Mychal Fields MD Primary Care Provide r Hima Fam Unavailable Unavailable Reason for Visit * Reason Onset Date Comments Appointment Request 09/16/2024 Encounter Details Date Type Department Care Team ([facility] Contact Info) Description 09/16/2024 Telephone [facility] [address] [place] [address] Mychal Fields MD [address] [place] [address] Appointment Request Social History Tobacco Use Types [...] Telephone Encounter - Basia Martins MA - 09/16/2024 10:49 AM EST Expressed to pt that I was not ableto schedule an follow up for her with [facility] given that they were awaiting a CT scan and some blood work before scheduling a follow up with . Told pt that she can check in the lab if they have anything in the system that is sill pending to be collected, I will also be faxing the CT Biopsy to [facility] because pt did get it done but at [facility]. LB documented in this encounter Plan of Treatment Not on file documented as of this encounter Visit Diagnoses Not on filedocumented in this encounter Additional Health Concerns Assessment Noted Time PHQ-9 Depression Total Score: 6 09/16/19 25 10:06 AM EST documented as of this encounter Care Teams Rn Security Relationship Specialty Start Date End Date Mychal Fields MD [address] [place] [phone] PCP - General Internal Medicine 04/30/14 Hima Fam FNP [address] [place] [address] Nurse Practitioner Family Medicine 08/01/23 documented as of this encounter
--- OUTSIDE RECORDS SUMMARY | 2024-10-13 11:18 | XMS_ITS | Encounter Summary ---
Author Organization [employer] Address [address] [place] [address] 7 [place] [address] Care Team Providers Care Sr. Operations Manager Name Role Phone Mychal Fields MD Primary Care Provide r Hima Fam Unavailable Unavailable Encounter Details Date Type Department Care Team ([facility] st Contact Info) Description 12/05/2022 Orders Only [facility]EDS [address] [place] [address] Veda Isabel LPN Social History Tobacco Use Types Packs/Day Years [...] documented as of this encounter Care Teams Sr. Operations Manager Relationship Specialty Start Date End Date Mychal Fields MD [address] [place] [address] PCP - General Internal Medicine 04/30/14 Hima Fam FNP [address] [place] [address] Nurse Practitioner Family Medicine 08/01/23 documented as of this encounter
--- OUTSIDE RECORDS SUMMARY | 2024-10-13 11:18 | XMS_ITS | Encounter Summary ---
Author Organization [employer] Address [address] [place] [address] 7t [place] [address] Care Team Providers Care Yarding Supervisor Name Role Phone Mychal Fields MD Primary Care Provide r Hima Fam Unavailable Unavailable Reason for Visit * Reason Comments Med Refill Encounter Details Date Type Department Care Team (Late st Contact Info) Description 10/05/2022 Refill [facility] MED[facility]INE [address] [place] [address] Hima Fam FNP Anxiety state Social History Tobacco Use Types Packs/Day Years [...] encounter Miscellaneous Notes * Telephone Encounter - Shruti Burton RN - 10/06/2022 12:10 PM EST Declined/ Zolpidem and Clonazepam filled 09/05/22 with 3 refills for each. documented in this encounter Plan of Treatment Not on file documented as of this encounter Visit Diagnoses Diagnosis Anxiety state Anxiety state, unspecified documented in this encounter Care Teams Yarding Supervisor Relationship Specialty Start Date End Date Mychal Fields MD [address] [place] [address] PCP - General Internal Medicine 04/30/14 Hima Fam FNP [address] [place] [address] Nurse Practitioner Family Medicine 08/01/23 documented as of this encounter
--- OUTSIDE RECORDS SUMMARY | 2024-10-13 11:18 | XMS_ITS | Encounter Summary ---
Author Organization [employer] Address [address] [place] [address] 7 [place] [address] Care Team Providers Care Websphere Architect Name Role Phone Mychal Fields MD Primary Care Provide r Hima Fam Unavailable Unavailable Reason for Visit * Reason Comments Med Refill Encounter Details Date Type Department Care Team ([facility] st Contact Info) Description 10/11/2024 Refill [facility] [address] [place] [address] Mychal Fields MD [address] [place], [place] [phone] Social History Tobacco Use Types Packs/Day Years [...] documented as of this encounter Care Teams Websphere Architect Relationship Specialty Start Date End Date Mychal Fields MD [address] [place] [address] PCP - General Internal Medicine 04/30/14 Hima Fam FNP [address] [place] [address] Nurse Practitioner Family Medicine 08/01/23 documented as of this encounter
--- OUTSIDE RECORDS SUMMARY | 2024-10-13 11:18 | XMS_ITS | Encounter Summary ---
Author Organization [employer] Address [address] [place] [address] 7 [place] [address] Care Team Providers Care Classified Ad Taker Name Role Phone Mychal Fields MD Primary Care Provide r Hima Fam Unavailable Unavailable Reason for Visit * Reason Comments Med Change Request Encounter Details Date Type Department Care Team (Late st Contact Info) Description 10/19/2022 Refill [facility] MED[facility]INE [address] [place], [place] [phone] Mychal Fields MD [address] [place], [place] [phone] Fibromyalgia Social History Tobacco Use Types Packs/Day Years Used Date Smoking Tobacco: Never Assessed Comments Unknown Sex and Gender Information Value Date Recorded Sex Assigned at Female 07/10/2022 10:15 AM EDT Legal Sex Female 10:15 AM EDT Gender Identity Choose not to disclose 2 10:15 AM EDT Sexual Orientation Choose not to disclose 2021 10:15 AM EDT documented as of this encounter Plan of Treatment Not on file documented as of this encounter Visit Diagnoses Diagnosis Fibromyalgia Unspecified myalgia and myositis documented in this encounter Additional Health Concerns Assessment Noted Time PHQ-9 Depression Total Score: 7 10/09/19 23 4:00 PM EST documented as of this encounter Care Teams Classified Ad Taker Relationship Specialty Start Date End Date Mychal Fields MD [address] [place], [place] [phone] PCP - General Internal Medicine 04/30/14 Hima Fam FNP [address] [place] [phone] Nurse Practitioner Family Medicine 08/01/23 documented as of this encounter
--- OUTSIDE RECORDS SUMMARY | 2024-10-13 11:19 | XMS_ITS | Encounter Summary ---
Author Organization [email or web address] Address [address] [place] [address] 7t [place] [address] Care Team Providers Care Personal Financial Counselor Name Role Phone Mychal Fields MD Primary Care Provide r Hima Fam Unavailable Unavailable Reason for Visit * Reason Comments Med Refill Encounter Details Date Type Department Care Team ([facility] st Contact Info) Description 07/27/2023 Refill [facility] MEDICINE [address] [place] [address] Mychal Fields MD [address] [place], [place] [phone] Social History Tobacco Use Types Packs/Day Years Used Date Smoking Tobacco: Never Passive Smoke Exposure: Never Smokeless Tobacco: Never Alcohol Use Standard Drinks/Week Comments Never 0 (1 standard drink = 0.6 oz pur e alcohol) Depression Answer Date Recorded Patient Health Questionnaire-9 Score 0 05/10/2023 Housing Stability Answer Date Recorded What is your housing situation today? I have gee staley 06/26/[address] you li ve. Do you have problems with any of the following? None of the above 06/26/2023 Food Insecurity Answer Date Recorded Within the past 12 months, y ou worried that your food would run out before you got money to buy more: Never True 06/26/2023 Within the past 12 months,th e food you bought just didn't last and you didn't have enough money to get more: Never True Transportation Answer Date Recorded In the past 12 months, has l ack of transportation kept you from medical appts, meetings, work or from getting things needed for daily living? No 06/26/2023 Utilities Answer Date Recorded In the past 12 months, has t he electric, gas, oil or water company threatened to shut off services in your home? No 06/26/2023 Depression Answer Date Recorded Patient Health Questionnaire-2 Score 0 05/10/2023 Comments Unknown Sex and Gender Information Value [...] Assessment Noted Time PHQ-9 Depression Total Score: 0 05/10/20 23 10:38 AM EDT documented as of this encounter Care Teams Personal Financial Counselor Relationship Specialty Start Date End Date Mychal Fields MD [address] [place] [address] PCP - General Internal Medicine 04/30/14 Hima Fam FNP [address] [place] [address] Nurse Practitioner Family Medicine 08/01/23 documented as of this encounter
--- OUTSIDE RECORDS SUMMARY | 2024-10-13 11:19 | XMS_ITS | Encounter Summary ---
Author Organization [employer] Address [address] [place] [address] 7 [place] [address] Care Team Providers Care Workers' Compensation Hearings Officer Name Role Phone Mychal Fields MD Primary Care Provide r Hima Fam Unavailable Unavailable Reason for Visit * Reason Comments Med Refill Encounter Details Date Type Department Care Team (Late st Contact Info) Description 09/11/2024 Refill [facility] MED & PEDS [address] [place] [address] Claudette Nassar MD [address] [place] [address] Anxiety and depression Social History Tobacco Use Types Packs/Day Years Used Date Smoking Tobacco: Every Day Cigarettes Passive Smoke Exposure: Never Smokeless Tobacco: Never [...] of this encounter Visit Diagnoses Diagnosis Anxiety and depression documented in this encounter Additional Health Concerns Assessment Noted Time PHQ-9 Depression Total Score: 9 01/28/20 24 2:36 PM EDT documented as of this encounter Care Teams Workers' Compensation Hearings Officer Relationship Specialty Start Date End Date Mychal Fields MD [address] [place] [address] PCP - General Internal Medicine 04/30/14 Hima Fam FNP [address] [place] [address] Nurse Practitioner Family Medicine 08/01/23 documented as of this encounter
--- OUTSIDE RECORDS SUMMARY | 2024-10-13 11:19 | XMS_ITS | Encounter Summary ---
Author Organization [employer] Address [address] [place] [address] 7t [place] [address] Care Team Providers Care Fine Wire Drawer Name Role Phone Mychal Fields MD Primary Care Provide r Hima Fam Unavailable Unavailable Reason for Visit * Reason Comments Med Refill Encounter Details Date Type Department Care Team ([facility] st Contact Info) Description 07/27/2023 Refill [facility] MEDICINE [address] [place] [address] Mychal Fields MD [address] [place], [place] [phone] Social History Tobacco Use Types Packs/Day Years [...] documented as of this encounter Care Teams Fine Wire Drawer Relationship Specialty Start Date End Date Mychal Fields MD [address] [place] [address] PCP - General Internal Medicine 04/30/14 Hima Fam FNP [address] [place] [address] Nurse Practitioner Family Medicine 08/01/23 documented as of this encounter
--- OUTSIDE RECORDS SUMMARY | 2024-10-13 11:19 | XMS_ITS | Encounter Summary ---
Author Organization [employer] Address [address] [facility] 7t [place] [address] Care Team Providers Care Hospitality Director Name Role Phone Mychal Fields MD Primary Care Provide r Hima Fam Unavailable Unavailable Encounter Details Date Type Department Care Team (Late st Contact Info) Description 09/22/2024 Orders Only GENERIC EXTERNAL DATA DEPARTMENT Provider, Generic External Data Social History Tobacco Use Types Packs/Day Years [...] Name Priority Date/Time Associated Diagnosis Comments XR KNEE 4+ VIEWS RIGHT Routine 09/22/2024 12:50 PM EST XR KNEE 4+ VIEWS LEFT Routine 09/22/2024 12:50 PM EST SYPHILIS SCREEN Routine 09/22/2024 12:35 PM EST HEPATITIS C ANTIBODY Routine 09/22/2024 12:35 PM EST CREATININE, SERUM Routine 09/22/2024 12: 35 PM EST HEPATITIS B SURFACE ANTIGEN, EIA Routine 09/22/2024 12:35 PM EST HIV 1/2 ANTIGEN/ANTIBODY, FOURTH GENERATION W/RFL Routine 09/22/2024 12:35 PM EST UREA NITROGEN (BUN) Routine 09/22/2024 1 2:35 PM EST documented in this encounter Results * XR Knee 4+ Views Left (09/22/2024 12:50 PM EST) Anatomical Region Laterality Modality Lower Extremities, Knee Left Radiogra phic Imaging 09/22/2024 12:5 0 PM EST Narrative 09/24/2024 10:01 AM EST ? [facility] ?[address] ?[place] [address] ?XRay Report ? Signed ? Patient: Clark,Elaine ?MR#: [id number] ? : 1970 ?Acct:[id number] ? Age/Sex: 53 / F ?ADM Date: 09/22/24 ? Loc: HO.XRAY ? Attending Dr: Syed Coreas MD ? Ordering Physician: Brigid Wset MD ?? Date of Service: 09/22/24 ?? Procedure(s): XR knee LT 4V ?? Accession Number(s): [id number] ? cc: Brigid West MD; Mychal Long MD ? EXAMINATION: ?? XR KNEE, LEFT ? CLINICAL INFORMATION: ?? M17.0 - Bilateral primary osteoarthritis of knee ? COMPARISON: ?? None available. ? TECHNIQUE: ?? 3 views of the left knee with AP bilateral knee standing. ? FINDINGS: ?? On AP bilateral knee standing there is loss of medial and lateral ?? compartment joint spaces in both knees. ? There is loss of lateral femoral compartment joint space with anterior ?? superior an lateral patellar enthesophytes. No visible acute fracture, ?? dislocation or subluxation seen. No loose bodies or soft tissue ?? swelling. ? XR/XR knee LT 4V ?? IMPRESSION: ?? Mild degenerative changes of the right, and left knee and medial and ?? lateral compartment right knee. ? Mild periapical spurring superior and lateral left patella. No acute ?? fracture or dislocation or joint effusion seen in left knee. ? Electronically signed by: ??Chidi Self MD ??09/24/2024 09:59 AM EST RP ? Dictated By: ?Chidi Self MD ? Signed By: ?<Electronically signed by Chidi S MD Clair in OV> ?09/24/24 0959 ? DD/ 1250 ? TD/TT: 09/22/24 1312 ? Delinquency Prevention Social Worker: MSM ? Procedure Note Nishi, Image - 09/24/[address] [place] [address] XRay Report Signed Patient: Elaine RodasMR#: [id number] : 1970Acct:[id number] Age/Sex: 53 / FADM Date: 09/22/24 Loc: [facility] Attending Dr: Syed Coreas MD Ordering Physician: Brigid West MD Date of Service: 09/22/24 Procedure(s): XR knee LT 4V Accession Number(s): [id number] cc: Brigid West MD; Mychal Long MD EXAMINATION: XR KNEE, LEFT CLINICAL INFORMATION: M17.0 - Bilateral primary osteoarthritis of knee COMPARISON: None available. TECHNIQUE: 3 views of the left knee with AP bilateral knee standing. FINDINGS: On AP bilateral knee standing there is loss of medial and lateral compartment joint spaces in both knees. There is loss of lateral femoral compartment joint space with anterior superior an lateral patellar enthesophytes. No visible acute fracture, dislocation or subluxation seen. No loose bodies or soft tissue swelling. XR/XR knee LT 4V IMPRESSION: Mild degenerative changes of the right, and left knee and medial and lateral compartment right knee. Mild periapical spurring superior and lateral left patella. No acute fracture or dislocation or joint effusion seen in left knee. Electronically signed by: Chidi Self MD 09/24/2024 09:59 AM EST Dictated By: Chidi Self MD Signed By: <Electronically signed by Chidi Self MD in OV> 09/24/24 0959 DD/ 1250 TD/TT: 09/22/24 1312 Delinquency Prevention Social Worker: [facility] External Provider IMG XR PROCEDURES Final Result * XR Knee 4+ Views Right (09/22/2024 12:50 PM EST) Anatomical Region Laterality Modality Lower Extremities, Knee Right Radiogra phic Imaging 09/22/2024 12:5 0 PM EST Narrative 09/24/2024 9:59 AM EST ? [facility] ?[address] ?[place] [address] ?XRay Report ? Signed ? Patient: Clark,Elaine ?MR#: [id number] ? : 1970 ?Acct:[id number] ? Age/Sex: 53 / F ?ADM Date: 09/22/24 ? Loc: [facility]AY ? Attending Dr: Syed Coreas MD ? Ordering Physician: Brigid West MD ?? Date of Service: 09/22/24 ?? Procedure(s): XR knee RT 4V ?? Accession Number(s): [id number] ? cc: Brigid West MD; Mychal Long MD ? EXAMINATION: ?? XR KNEE, RIGHT ? CLINICAL INFORMATION: ?? M17.0 - Bilateral primary osteoarthritis of knee ? COMPARISON: ?? None available. ? TECHNIQUE: ?? 3 views of the right knee. ? FINDINGS: ?? There is mild loss of medial and patellofemoral compartment joint ?? space. There is no visible acute fracture or dislocation. There is ?? anterior superior patellar enthesophyte. No joint effusion seen ? XR/XR knee RT 4V ?? IMPRESSION: ?? Mild degenerative arthritic changes medial and patellofemoral ?? compartment. No visible acute fracture or dislocation. ? Electronically signed by: ??Chidi Self MD ??09/24/2024 09:56 AM EST RP ? Dictated By: ?Chidi Self MD ? Signed By: ?<Electronically signed by Chidi Self MD in OV> ?09/24/24 0956 ? DD/ 1250 ? TD/TT: 09/22/24 1312 ? Delinquency Prevention Social Worker: MSM ? Procedure Note Yas Almodovar - 09/24/[address] [address] XRay Report Signed Patient: Elaine RodasMR#: [id number] : 1970Acct:[id number] Age/Sex: 53 / FADM Date: 09/22/24 Loc: [facility] Attending Dr: Syed Coreas MD Ordering Physician: Brigid West MD Date of Service: 09/22/24 Procedure(s): XR knee RT 4V Accession Number(s): [id number] cc: Brigid West MD; Mychal Long MD EXAMINATION: XR KNEE, RIGHT CLINICAL INFORMATION: M17.0 - Bilateral primary osteoarthritis of knee COMPARISON: None available. TECHNIQUE: 3 views of the right knee. FINDINGS: There is mild loss of medial and patellofemoral compartment joint space. There is no visible acute fracture or dislocation. There is anterior superior patellar enthesophyte. No joint effusion seen XR/XR knee RT 4V IMPRESSION: Mild degenerative arthritic changes medial and patellofemoral compartment. No visible acute fracture or dislocation. Electronically signed by: Chidi Self MD 09/24/2024 09:56 AM EST RP Dictated By: Chidi Self MD Signed By: <Electronically signed by Chidi Self MD in OV> 09/24/24 0956 DD/ 1250 TD/TT: 09/22/24 1312 Delinquency Prevention Social Worker: MSM [facility] External Provider IMG XR PROCEDURES Final Result * Hepatitis B surface antigen, EIA (09/22/2024 12:35 PM EST) Hepatitis B Surface Ag Negative Negative [facility] 09/22/2024 12:3 5 PM EST 09/22/2024 12:35 PM EST Generic External Data Provider LAB BLOOD ORDERAB LES Final Result [facility] [address] [place] [phone] * HIV-1/2 Antigen and Antibodies, Fourth Generation, with Reflexes (09/22/2024 12:35 PM EST) HIV AB/AG Nonreactive Nonreactive [facility] Comment:HIV-1 p24 Ag and/or HIV-1/HIV-2 Ab not detected.A test result that is nonreactive does not exclude thepossibility of exposure to or infection with HIV-1 and/orHIV-2. Nonreactive results in this assay for individualswith prior exposure to HIV-1 and/or HIV-2 may be due toantigen and antibody levels that are below the limit ofdetection of this assay.The beqomnity HIV Ag/Ab Combo assay result andsupplemental assay results should be interpreted inconjunction with the patient's clinical presentation,history and other laboratory results. If the results areinconsistent with clinical evidence, additional testing issuggested to confirm the result. 09/22/2024 12:3 5 PM EST 09/22/2024 12:35 PM EST us Generic External Data Provider LAB BLOOD ORDERAB LES Final Result Performing Organization Address [facility] Co de Phone Number [facility] [address] [place] [phone] * Hepatitis C Ab (09/22/2024 12:35 PM EST) Hepatitis C Antibody Nonreactive Nonreactive [facility] Comment:Antibodies to HCV no t detected; does not exclude early acuteHCV infection. 09/22/2024 12:3 5 PM EST 09/22/2024 12:35 PM EST Generic External Data Provider LAB BLOOD ORDERAB LES Final Result Performing Organization Address [facility] Co de Phone Number [facility] [address] [place] [phone] * Syphilis Screen (09/22/2024 12:35 PM EST) Syphilis Screen Nonreactive Nonreactive [facility] 09/22/2024 12:3 5 PM EST 09/22/2024 12:35 PM EST Generic External Data Provider LAB BLOOD ORDERAB LES Final Result Performing Organization Address [facility] Co de Phone Number [facility] [address] [place] [phone] * Creatinine, Serum (09/22/2024 12:35 PM EST) Creatinine, Serum 0.89 0.5 - 1.4 mg/dL [facility] Estimated Glomerular Filt Rate >60 [facility] Comment:Chronic Kidney Disea se: Estimated GFR < 60 mL/min/[id number] Kidney Disease: Estimated GFR < 15 mL/min/1.73m2 09/22/2024 12:3 5 PM EST 09/22/2024 12:35 PM EST us Generic External Data Provider LAB BLOOD ORDERAB LES Final Result Performing Organization Address City/[facility]/ZIP Co de Phone Number [facility] [address] [place] [phone] * BUN (Blood Urea Nitrogen) (09/22/2024 12:35 PM EST) Urea Nitrogen (BUN) 13 9 - 16 mg/dL [facility] 09/22/2024 12:3 5 PM EST 09/22/2024 12:35 PM EST Generic External Data Provider LAB BLOOD ORDERAB LES Final Result Performing Organization Address City/[facility]/ZIP Co de Phone Number [facility] [address] [place] [phone] documented in this encounter Visit Diagnoses Not on filedocumented in this encounter Additional Health Concerns Assessment Noted Time PHQ-9 Depression Total Score: 6 09/16/19 25 10:06 AM EST documented as of this encounter Care Teams Hospitality Director Relationship Specialty Start Date End Date Mychal Fields MD [address] [place] [address] PCP - General Internal Medicine 04/30/14 Hima Fam FNP [address] [place] [address] Nurse Practitioner Family Medicine 08/01/23 documented as of this encounter
--- OUTSIDE RECORDS SUMMARY | 2024-10-13 11:19 | XMS_ITS | Encounter Summary ---
Author Organization [employer] Address [address] [place] [address] 7 [place] [address] Care Team Providers Care Product Developer Name Role Phone Mychal Fields MD Primary Care Provide r Hima Fam Unavailable Unavailable Reason for Visit * Reason Onset Date Comments Nurse Triage 08/05/2024 Encounter Details Date Type Department Care Team ([facility] st Contact Info) Description 08/05/2024 Telephone [facility] MEDICINE [address] [place] [address] Mychal Fields MD [address] [place] [address] Nurse Triage Social History Tobacco Use Types Packs/Day Years Used Date Smoking Tobacco: Every Day Cigarettes Passive Smoke Exposure: Never Smokeless Tobacco: Never Alcohol Use Standard Drinks/Week Comments Never 0 (1 standard drink = 0.6 oz pur e alcohol) Depression Answer Date Recorded Patient Health Questionnaire-9 Score 9 01/28/2024 Patient Health Questionnaire-9 Score 9 01/28/2024 Last PHQ-9: Questionnaire Data Not on file 0 01/28/2024 Housing Stability Answer Date Recorded What is [...] Answer Date Recorded Patient Health Questionnaire-2 Score 2 01/28/2024 Internet Access Answer Date Recorded Internet Access [...] encounter Miscellaneous Notes * Telephone Encounter - Loulou Varela RN - 08/05/2024 12:14 PM EST Triage call Pt reports has not gotten better at all. Pt was seen in OV with provider 07/23/24 for chest tenderness, tightness. Pt sx today are cough, SOB, nasal congestion with drainage yellow-greenish to clear. Neg for headache or fever. Pt continues to use albuterol inhaler q 4hrs without change.Pt is advised to increase liquids 6-8 glasses daily including warm drinks. Honey 1-2 tsp for cough.Pt is offered to come to [facility] to be seen by provider, advised this is on the first floor and no aptsavailable just Walk in. Pt agrees with disposition. Hours of WIC given . Pt insurance is verified as active. Protocol Used: Cough (Adult) Protocol-Based Disposition: See in Office or Video Visit within 3 Days Video visit offer not recorded Positive Triage Questions: * Cough has been present for > 3 weeks * Nasal discharge present > 10 days * All higher-acuity triage questions were negative Care Advice Discussed: * Reassurance and Education - Cough * Cough Medicines * Prevent Dehydration * Reasons To Call Back - Difficulty breathing - Cough lasts more than 3 weeks - Fever lasts more than 3 days - You become worse Triage call Pt didn't answer. Left message to call [facility] [phone]. Advised will call back in about 15 min. * Telephone Encounter - Adela Gomez - 08/05/2024 12:04 PM EST Symptom: Cough Outcome: Schedule an urgent appointment (within 1 hour) or talk to a nurse or provider soon Reason: Wheezing (high-pitched whistling sound) The caller accepted this outcome. Pt was triaged and seen on 07/23 and stated still experiencing same symptoms except for fever. Contact pt at [phone] (italian) documented in this encounter Plan of Treatment Not on file documented as of this encounter Visit Diagnoses Not on filedocumented in this encounter Additional Health Concerns Assessment Noted Time PHQ-9 Depression Total Score: 9 01/28/20 24 2:36 PM EDT documented as of this encounter Care Teams Product Developer Relationship Specialty Start Date End Date Mychal Fields MD [address] [place], [place] [id number] PCP - General Internal Medicine 04/30/14 Hima Fam FNP [address] [place] [address] Nurse Practitioner Family Medicine 08/01/23 documented as of this encounter
--- OUTSIDE RECORDS SUMMARY | 2024-10-13 11:19 | XMS_ITS | Data Portability ---
Author Organization [place] [facility], Allergy Address [address] [address] Care Team Providers Care Girls Tennis Coach Name Role Phone GIACOMO MARX Primary Care Provider GIACOMO MARX Referring Provider [phone] Assessment Encounter Date Assessment Date Assessment LastModified by Organization Details LastModified Time 04/25/2024 04/25/2024 53-year-old female presents following DL with biopsy. Pathology was reviewed to be benign. 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 Overall reassurance was provided. follow up as scheduled. [email or web address] Not available 04/28/2024 15:04:21 Plan of Treatment [...] observ ation record ed. [email or web address] [facility] [place] [address] [facility] [address], [place], [address], 02/25/2024 09:12:35 03/31/20 24 03/31/2024 US, neck, soft tissu e No observ ation [email or web address] [address] [facility], [place], [address], 04/11/2024 16:05:21 04/28/20 24 04/10/2024 clini bertha photo * No observ ation record ed. [email or web address] Not Available 17:00:02 04/29/20 24 05/08/2023 imagi ng/di agnos tic resul t No observ ation record ed. [email or web address] Not Available 21:42:28 Result Notes None recorded. Problems Name Problem SNOMED Code Status Onset Date Resolution Date Notes Provider Name and Address Organization Details Recorded Time Thyroid nodule 197379571 Active 2023 MADHU REYES MD 100 [facility] 100, [place], [address] , [place] - [facility] 4 16:36:38 Hypertrop hy of tonsils AND adenoids 21084521 Active 2023 MADHU REYES MD 100 [facility] 100, [place], [address] , [place] - [facility] 4 16:36:47 Hypertrop hy of lingual tonsil 692872677 Active 2023 MADHU REYES MD 100 [facility],[place] [address], [place], [address] , [place] - [facility] 4 16:36:52 Non-toxic uninodula r goiter 991676081 Active 2023 Nontoxic single thyroid nodule; Note: Date Diagnosed : 01/18/2024 11:58 AM (E04.1) Not Available [facility] 4 02:45:01 Mass of neck 344759956 Active 2023 Localized swelling, mass and lump, neck; Note: Date Diagnosed : 11/08/2023 11:56 AM (R22.1) Not Available [facility] 4 02:45:02 Neck swelling 400814010 Active 2023 Localized swelling, mass and lump, neck; Note: Date Diagnosed : 11/08/2023 11:56 AM (R22.1) Not Available [facility] 4 02:45:02 Neck pain 10632902 Active 2023 Cervicalg ia; Note: Date Diagnosed : 11/08/2023 11:56 AM (M54.2) Not Available [facility] 4 02:45:02 Dysphagia 98806160 Active 2023 Dysphagia , unspecifi ed; Note: Date Diagnosed : 11/08/2023 11:56 AM (R13.10) Not Available [facility] 4 02:45:05 Obstructi ve sleep apnea of adult 39122192354 03 Active 2023 MADHU REYES MD 100 [facility] 100, [place], [address] , [place] - [facility] 4 08:48:15 Seasonal allergic rhinitis 076426596 Active 2023 MADHU REYES MD 100 [facility] 100, [place], [address] , [place] - [facility] 4 08:52:06 Allergic rhinitis 10557858 Active 2023 MADHU REYES MD 100 [facility],[place] [address], [place], [address] , [place] - [facility] 4 08:52:17 Non-aller gic rhinitis 78031362269 1 Active 2023 MADHU REYES MD 100 [facility],[place] [address], [place], [address] , [facility] - [facility] 4 08:52:17 Problem Notes None recorded. Procedures Surgical History Date Name Laterality Status Provider Name and Address Organization Details Recorded Time 4 LARYNGOSCOPY, DIRECT OPERATIVE WITH OPERATING MICROSCOPE OR TELESCOPE WITH BIOPSY (SURG) completed Paulo Faria [place] - [facility] 04/14/2024 09:38:40 4 FFL_RE completed MADHU REYES MD 100 [facility],[place] [address], [place], [address], [facility] - [facility] 03/18/2024 17:33:49 Imaging Results Imaging Date Name Status LastModified by Organiz ation Details LastModified Time 02/19/2024 US, thyroid completed [email or web address] [facility] [place] [address] [facility] [address], [place], [address], 02/25/2024 09:12:35 03/31/2024 US, neck, soft tissue completed [facility] (Imaging) [address] [place], [address], 04/11/2024 16:05:21 04/10/2024 clinical photo* completed [email or web address] [...] % eye drops active Medicatio n ID: [id number] Br and Name: latanopro st Send Method: E-Prescri bed Subs Allowed: subs OK Specia l Instructi on: PUT 1 DROP INTO BOTH EYES AT BEDTIME M edication GenericNa me: latanopro st Not Available Not Available Not Available terconazol e 0.4 % vaginal cream active Medicatio n ID: [id number] Br and Name: terconazo le Send Method: [...] 8.6 mg tablet active Medicatio n ID: [id number] Br and Name: senna Sen d Method: [...] 500 mg tablet active Medicatio n ID: [id number] Br and Name: valacyclo vir Send Method: [...] 50 mg tablet active Medicatio n ID: [id number] Br and Name: tramadol Send Method: E-Prescri bed Subs Allowed: subs OK Specia l Instructi on: TAKE 1 TABLET BY MOUTH EVERY 6 HOURS NEEDED FOR PAIN Medi cationGen ericName: tramadol Not Available Not Available Not Available ketorolac 0.5 % eye drops active Medicatio n ID: [id number] Br and Name: ketorolac Send Method: E-Prescri [...] 20 mg tablet active Medicatio n ID: [id number] Br and Name: dicyclomi ne Send Method: [...] 10 mg tablet active Medicatio n ID: [id number] Br and Name: buspirone Send Method: E-Prescri [...] 100 mg capsule active Medicatio n ID: [id number] Br and Name: gabapenti n Send Method: [...] 1 mg tablet active Medicatio n ID: [id number] Br and Name: varenicli ne Send Method: E-Prescri bed Subs Allowed: subs OK Specia l Instructi on: TAKE 1 TABLET BY MOUTH TWICE A DAY WITH GLASS OF WATER AFTER MEALS Med icationGe nericName : varenicli ne Not Available Not Available Not Available diclofenac 1 % topical gel active Medicatio n ID: [id number] Br and Name: diclofena c sodium Se [...] capsule,de layed release active Medicatio n ID: [id number] Br and Name: Creon Sen d Method: E-Prescri bed Subs Allowed: subs OK Specia l Instructi on: TAKE 1 CAPSULE BY MOUTH 4 TIMES A DAY. ADMINISTE R WITH MEALS AND OR SNACKS Me dicationG enericNam e: Creon Not Available Not Available Not Available blood pressure test kit-large cuff active Medicatio n ID: [id number] Br and Name: blood pressure test kit-large Send Method: E-Prescri bed Subs Allowed: subs OK Specia l Instructi on: USE TO CHECK BLOOD PRESSURE ONCE DAILY IN THE MORNING M edication GenericNa me: blood pressure test kit-large Not Available Not Available Not Available Dexilant 60 mg capsule, delayed release active Medicatio n ID: [id number] Br and Name: Dexilant Send Method: E-Prescri [...] Updated DateTime 03/18/2024 160.02 cm 36.8 kg/m2 32935.21 g Kodi Soni [place] [facility] 03/18/2024 16:16:00 Date Recorded Body height Body mass index (BMI) Body weight Provider Name and Address Organization Details Last Updated DateTime 04/25/2024 160.02 cm 36.8 kg/m2 98097.21 g Janeth Castro [facility] 04/25/2024 15:19:15 Date Recorded Body height Body mass index (BMI) Body weight Provider Name and Address Organization Details Last Updated DateTime 07/30/2024 160.02 cm 36.8 kg/m2 02890.21 g Marley Santamaria [facility] 07/30/2024 08:31:21 Social History None recorded. Functional [...] Note [id number] MADHU REYES MD [facility] [address] [address] 03/18/2024 15:41:26 03/18/2024 17:01:09 Thyroid nodule 424659295 E04.1 I recommend a US guided FNA of the thyroid nodule. She will f/u to review. Hypertroph y of tonsils AND adenoids 63474963 J35.3 hypertroph y of Waldeyer's ring. lingual tonsil biopsy is less morbid to evaluate for lymphoma. see below. Hypertroph y of lingual tonsil 119851860 J35.3 I recommend direct laryngosco py with [...] We will schedule surgery mutually convenient time. [id number] MADHU REYES MD [facility] [address] [place] [address] 04/25/2024 15:12:06 04/30/2024 07:57:22 Hypertrophy of lingual tonsil 638155312 J35.3 Hypertroph y of tonsils AND adenoids 27647198 J35.3 Neck pain 59362420 M54.2 [id number] MADHU REYES MD [facility] [address] [place] [address] 07/30/2024 08:28:17 07/30/2024 08:55:15 Hypertrophy of lingual tonsil 489645164 J35.3 Biopsies negative. Gave reassuranc e. Continue observatio n. Deferred laryngosoc py today. Obstructiv e sleep apnea of adult 3906164356 103 G47.33 Agree with starting CPAP which is in process. Thyroid nodule 127494314 E04.1 Recommend repeat thyroid US at [facility] after next visit in 6 months. Seasonal a llergic rhinitis 521085206 J30.2 Exam and history are consistent with allergic rhinitis. We will obtain allergy testing to clarify the extent of allergy with f/u to review. Allergic rhinitis 467780 04 J30.9 Non-allergic rhinitis 31 17901575 01 J31.0 Health Concerns Section Related Observation LastModified by Organization Detai ls LastModified Time None Recorded Concern Status LastModified by Organization Details LastModified Time None Recorded Advance Directives Directive None Recorded Payers Encounter Date Sequence Insurance Name Policy Number Policy Tompkins Covered Member ID Tompkins Member ID Guarantor Name 03/18/2024 1 [place] [facility] Rodas [id number] Elaine Rodas 04/25/2024 1 [place] [facility] Elaine Rodas [id number] Elaine Rodas 07/30/2024 1 [place] [facility] Elaine Rodas [id number] Elaine Rodas Notes Date Note Type Note [...] by her other doctors. MADHU REYES MD [address] [place] [address], [address], [place] - [facility] 03/18/2024 17:45:03 04/25/2024 text/html 53-year-old fema nidia presents following DL with biopsy. She continues to have mild sore throat but no bleeding. Biopsy was done due to hypertrophy of Waldeyer's ring on imaging. MADHU REYES MD [address] [place] [address],[address], [address], [place] - [facility] 04/29/2024 10:01:40 07/30/2024 text/html Hx of hypertroph [...] allergies with marginal benefit. MADHU REYES MD [address] [place] [address], [place], [address], [place] [facility] 07/30/2024 08:52:32 OBGyn Episode No OBEpisode recorded.
--- OUTSIDE RECORDS SUMMARY | 2024-10-13 11:19 | XMS_ITS | Encounter Summary ---
Author Organization [employer] Address [address] [place] [address] 7 [place] [address] Care Team Providers Care Fire Control Assistant Name Role Phone Mychal Fields MD Primary Care Provide r Hima Fam Unavailable Unavailable Reason for Visit * Reason Onset Date Comments Appointment Request 09/16/2024 Encounter Details Date Type Department Care Team ([facility] Contact Info) Description 09/16/[address] [facility] MEDICINE [address] [place] [address] Mychal Fields MD [address] [place] [address] Appointment Request Social History Tobacco Use Types [...] Encounter - Basia Martins [place] - 09/16/2024 4:01 PM EST Contacted pt in regards to [facility], I faxed over the CT Abdomen results and I also faxed over notes expressing that the pt did complete the lab orders that they had sent for her. She did them today at our laboratory. I expressed that she should receive a phone call in regards to making a followup appt with them and pt understood. Also expressed that there is an Xray Chest order hat I faxed to [facility] that she can also get completed. LB documented in this encounter Plan of Treatment Not on file documented as of this encounter Visit Diagnoses Not on filedocumented in this encounter Additional Health Concerns Assessment Noted Time PHQ-9 Depression Total Score: 6 09/16/19 25 10:06 AM EST documented as of this encounter Care Teams Fire Control Assistant Relationship Specialty Start Date End Date Mychal Fields MD [address] [place] [address] PCP - General Internal Medicine 04/30/14 Hima Fam FNP [address] [place] [address] Nurse Practitioner Family Medicine 08/01/23 documented as of this encounter
--- OUTSIDE RECORDS SUMMARY | 2024-10-13 11:19 | XMS_ITS | Encounter Summary ---
Author Organization [email or web address] Address [address] [place] [address] 7t [place] [address] Care Team Providers Care Nurse Administrator Name Role Phone Mychal Fields MD Primary Care Provide r Hima Fam Unavailable Unavailable Reason for Visit * Reason Comments Med Refill Encounter Details Date Type Department Care Team (Late st Contact Info) Description 10/06/2024 Refill [facility] MED & PEDS [address] [place] [address] Mychal Fields MD [address] [place] [address] Anxiety and depression Social History Tobacco Use [...] documented as of this encounter Care Teams Nurse Administrator Relationship Specialty Start Date End Date Mychal Fields MD [address] [place] [address] PCP - General Internal Medicine 04/30/14 Hima Fam FNP [address] [place] [address] Nurse Practitioner Family Medicine 08/01/23 documented as of this encounter
--- OUTSIDE RECORDS SUMMARY | 2024-10-13 11:19 | XMS_ITS | Encounter Summary ---
Author Organization [employer] Address [address] [place] [address] 7 [place] [address] Care Team Providers Care Driveway Attendant Name Role Phone Mychal Fields MD Primary Care Provide r Hima Fam Unavailable Unavailable Reason for Visit * Reason Onset Date Comments PRE OP 09/18/2024 Encounter Details Date Type Department Care Team ([facility] st Contact Info) Description 09/18/2024 Telephone [facility] MEDICINE [address] [place] [address] Mychal Fields MD [address] [place] [address] PRE OP Social History Tobacco Use Types Packs/Day Years [...] encounter Miscellaneous Notes * Telephone Encounter - Topher Ta - 09/18/2024 5:01 PM EST TC placed to pt agreed to pre-op at [facility] on 10/[address] Magana . Also left facility with details Date of Surgery: 10/21/24 Surgical procedure being done: Cataracts right eye Type of anesthesia: MAC Lab needed: No EKG: No Surgeon's name: Dino Zuly Facility name: [facility]geon's office number: [phone] Surgeon's office fax number: [phone] Contact name (person you spoke with): Karon Elena office note from surgeon requested: No * Telephone Encounter - Lucia Delgado - 09/18/2024 11:33 AM EST Date of Surgery: 10/21/24 Surgical procedure being done: Cataracts right eye Type of anesthesia: MAC Lab needed: No EKG: No [facility] Facility name: [facility]geon's office number: [phone] Surgeon's office fax number: [phone] Contact name (person you spoke with): Karon Last office note from surgeon requested: No Send Message to Adela Gomez and Topher Ta documented in this encounter Plan of Treatment Not on file documented as of this encounter Visit Diagnoses Not on filedocumented in this encounter Additional Health Concerns Assessment Noted Time PHQ-9 Depression Total Score: 6 09/16/19 25 10:06 AM EST documented as of this encounter Care Teams Driveway Attendant Relationship Specialty Start Date End Date Mychal Fields MD [address] [place] [address] PCP - General Internal Medicine 04/30/14 Hima Fam FNP [address] [place] [address] Nurse Practitioner Family Medicine 08/01/23 documented as of this encounter
--- OUTSIDE RECORDS SUMMARY | 2024-10-13 11:19 | XMS_ITS | Encounter Summary ---
Author Organization [employer] Address [address] [place] [address] [address]t [place] [address] Care Team Providers Care Carbon Printer Name Role Phone Mychal Fields MD Primary Care Provide r Hima Fam Unavailable Unavailable Encounter Details Date Type Department Care Team ([facility] st Contact Info) Description 06/11/2023 Orders Only [facility] MED & PEDS [address] [place] [address] Veda Isabel LPN Social History Tobacco Use Types Packs/Day Years Used Date Smoking Tobacco: Never Smokeless Tobacco: Never Alcohol Use Standard Drinks/Week Comments Never 0 (1 standard drink = 0.6 oz pur e alcohol) Depression Answer Date Recorded Patient Health Questionnaire-9 Score 0 05/10/2023 Depression Answer Date Recorded Patient Health Questionnaire-2 [...] documented as of this encounter Care Teams Carbon Printer Relationship Specialty Start Date End Date Mychal Fields MD [address] [place] [address] PCP - General Internal Medicine 04/30/14 Hima Fam FNP [address] [place] [address] Nurse Practitioner Family Medicine 08/01/23 documented as of this encounter
--- OUTSIDE RECORDS SUMMARY | 2024-10-13 11:19 | XMS_ITS | Clinical Summary ---
Author Organization [employer] Address [address] [place] [address] 7 [place] [address] Care Team Providers Care Shingle Grader Name Role Phone Mychal Fields MD Primary Care Provide r Hima Fam Unavailable Unavailable Allergies Active Allergy Reactions Criticality Noted Date Comments Gramineae Pollens 03/20/2024 Hydrocodone 02/28/2024 Other Reaction(s): STOMACH PAIN Lisinopril Cough 10/25/2010 Other reaction(s): unspecified Molds & Smuts 03/20/2024 Penicillins Low 12/18/2012 Other Reaction(s): VAGINAL FUNGUS INFECTION Verapamil 10/25/2010 Other reaction(s): unspecified Other Reaction(s): unknown Medications Blood Pressure Monitor kitIndications:Es sential hypertension 1 vial in the morning. 1 kit 04/03/20 23 Active pantoprazole (ProtoNix) 20 MG EC tablet TAKE 1 TABLET BY MOUTH 2 TIMES EVERY DAY ON AN EMPTY STOMACH 180 tablet 04/13/20 23 Active Diclofenac Sodium 1 % gelIndications:Ac quired clavicle deformity Apply topically to affected area four times daily as needed 150 g 04/25/20 23 Active valACYclovir (Valtrex) 500 MG tablet 1 tablet twice a day x 3 days prn outbreak 30 tablet 2 08/28/20 23 Active gabapentin (Neurontin) 100 MG capsuleIndication s:Fibromyalgia TAKE 1 CAPSULE BY MOUTH EVERY 8 HOURS 90 capsule 11/09/19 24 Active minoxidil (Loniten) 2.5 MG tabletIndications :Androgenic alopecia Take 1 tablet (2.5 mg) by mouth in the morning. 30 tablet 11 12/21/19 24 2024 Active varenicline (Chantix) 1 MG tabletIndications :Smoker TAKE 1 TABLET BY MOUTH TWICE A DAY WITH GLASS OF WATER AFTER MEALS 56 tablet 1 12/27/19 24 Active hydrOXYzine HCl (Atarax) 25 MG tabletIndications :Anxiety and depression Take 1 tablet (25 mg) by mouth every 6 (six) hours if needed for anxiety. 200 tablet 5 01/28/20 24 Active albuterol 108 (90 Base) MCG/ACT inhalerIndication s:Wheeze Inhale 2 puffs every 4 (four) hours if needed for wheezing or shortness of breath. 18 g 3 03/24/20 24 Active cyclobenzaprine (Flexeril) 10 MG tabletIndications :Chronic thoracic back pain, unspecified back pain laterality Take 1 tablet (10 mg) by mouth 3 times daily for 10 days. 30 tablet 03/24/20 24 Active estradiol (Estrace) 0.1 MG/GM vaginal creamIndications: Atrophic vaginitis Insert 1 g vaginally twice a week 42.5 g 05/15/20 24 Active lidocaine (Lidoderm) 5 % patchIndications: Chronic midline low back pain without sciatica APPLY 1 PATCH TOPICALLY TO SKIN IN THE MORNING. LEAVE ON FOR 12 HOURS AND OFF FOR 12 HOURS DIRECTED 30 patch 3 06/09/20 24 Active losartan (Cozaar) 100 MG tablet TAKE 1 TABLET BY MOUTH EVERY DAY 90 tablet 2 07/08/20 24 Active fluticasone (Flonase) 50 MCG/ACT nasal spray SHAKE BEFORE FIRST USE PRIME AFTER USE CLEAN TIP 1 SPRAY INTO EACH NOSTRIL TWICE A DAY 48 mL 07/14/20 24 Active cholecalciferol (D3) 50 MCG (2000 UT) tabletIndications :Low vitamin D level TAKE 1 TABLET BY MOUTH EVERY DAY 90 tablet 07/14/20 24 Active Arnuity Ellipta 100 MCG/ACT inhaler Inhale 1 puff Once per day. 07/10/20 24 Active busPIRone (Buspar) 10 MG tablet Take 1 tablet by mouth if needed in the morning, at noon, and at bedtime (anxiety). 05/02/20 22 Active Emgality 120 MG/ML auto-injector Inject 120 mg under the skin every 30 (thirty) days. 06/16/20 Active nicotine polacrilex (Nicorette) 2 MG gum Chew 2 mg every 2 (two) hours if needed. 07/07/20 Active rizatriptan TRUCK REPAIR SERVICE ESTIMATOR (Maxalt-TRUCK REPAIR SERVICE ESTIMATOR) 5 MG disintegrating tablet PLEASE SEE ATTACHED FOR DETAILED DIRECTIONS 05/29/20 Active amLODIPine (Norvasc) 10 MG tabletIndications :Essential hypertension TAKE 1 TABLET BY MOUTH EVERY DAY 90 tablet 08/13/20 24 Active zolpidem (Ambien) 10 MG tabletIndications :Anxiety and depression TAKE 1 TABLET BY MOUTH EVERY DAY AT BEDTIME NEEDED FOR SLEEP 30 tablet 09/15/19 25 Active clonazePAM (KlonoPIN) 1 MG tabletIndications :Anxiety and depression TAKE 1 TABLET (1 MG) BY MOUTH NEEDED IN THE MORNING AT AT NOON AND AT BEDTIME FOR ANXIETY 90 tablet 09/15/19 25 Active clonazePAM (KlonoPIN) 1 MG tabletIndications :Anxiety and depression Take 1 tablet (1 mg) by mouth if needed in the morning, at noon, and at bedtime for anxiety. 90 tablet 08/12/20 24 2024 Discontinued zolpidem (Ambien) 10 MG tabletIndications :Anxiety and depression Take 1 tablet (10 mg) by mouth if needed at bedtime for sleep. 30 tablet 08/12/20 24 2024 Discontinued Active Problems Problem Noted Date Diagnosed Date JERRI (obstructive sleep apnea) 09/16/2024 Assessment & Plan (09/16/2024 10:19 AM EST): Pt had an at home sleep test that showed mild JERRI. Recommendation was to use Auto Cpap 5-15 cm. Pt tells me has an appointment in november Subacute cough 08/05/2024 Assessment & Plan (09/16/2024 3:46 PM EST): Patient here with c/o persistent cough with not improving with albuterol and associated chest and back discomfort since 06/19/24. Followed by pulmonology for abnormal CT chest. Pt was evaluated by Dr. Wynn at our [facility] who recommended to check D dimer given continued SOB despite bronchodilator and associated chest and back pain. Pt went to the ER but left after she had to wait. Pt finished azithromycin (Zithromax) 250 MG tablet 08/05/24 Chest X-Rays ordered 08/05/24, pt tells me will go to have it done now ER precautions discussed. Pt asked to Seek medical attention for worsening symptoms. Assessment & Plan (08/05/2024 6:33 PM EST): Persistent cough with SOB not improving with albuterol and associated chest and back discomfort since 06/19/24. Followed by pulmonology for abnormal CT chest. Differential includes infectious (such as mycoplasma or pertussis), neoplastic, less likely pulmonary embolus given normal SA O2 but will check D dimer given continued SOB despite bronchodilator and associated chest and back pain. She declines prednisone due to it causing elevation in BP. - Prescribed azithromycin (Zithromax) 250 MG tablet 08/05/24 - Chest X-Rays ordered 08/05/24 - Ordered D Dimer High Sensitivity 08/05/24 stat - Ordered CBC auto differential 08/05/24 stat - ER precautions discussed. We are trying to get her to [facility] before the lab and xray close but if she is unable, advise ER tonight. - Seek medical attention for worsening symptoms. Tobacco use disorder 03/24/2024 Assessment & Plan (03/24/2024 6:26 PM EDT): Encouarged smoking cessation, pt plans to start chantix Chronic thoracic back pain 03/24/2024 Assessment & Plan (03/24/2024 6:27 PM EDT): Prn muscle relaxor rx Chronic otitis externa of right ear 03/24/2024 Assessment & Plan (03/24/2024 6:24 PM EDT): Mild erythema with sig pruitits, rx as written belwo Abnormal CT of the chest 03/24/2024 Assessment & Plan (09/16/2024 10:16 AM EST): On February pt had a CT of Chest that showed: Enlarged anterior mediastinal lymph nodes. Infectious, inflammatory and neoplastic processes should be considered. Chest CT follow-up, PET/CT or tissue sampling should be considered. Small 2 mm bilateral pulmonary nodules. This may represent peripheral or subpleural lymph nodes. Pt was encouraged smoking cessation, and she was referred to pulmonary, Seen 05/19/[address] 06/13/2024 showed: Stable anterior mediastinal lymphadenopathy Assessment & Plan (05/15/2024 1:20 PM EDT): On February pt had a CT of Chest that showed: Enlarged anterior mediastinal lymph nodes. Infectious, inflammatory and neoplastic processes should be considered. Chest CT follow-up, PET/CT or tissue sampling should be considered. Small 2 mm bilateral pulmonary nodules. This may represent peripheral or subpleural lymph nodes. Pt was encouraged smoking cessation, and she was referred to pulmonary, Appointment scheduled for 05/19/2024 Assessment & Plan (03/24/2024 6:24 PM EDT): Encourage smoking cessation, STAT referral to pulmonary, reviewed urgency of work up and follow up with pcp as scheduled Enlarged lymph nodes 03/20/2024 Assessment & Plan (09/16/2024 3:52 PM EST): /CT chest w IV con 06/2024 Stable anterior mediastinal lymphadenopathy Assessment & Plan (03/24/2024 6:26 PM EDT): Mediastinal node. Family history of colon cancer 03/20/2024 Irritable bowel syndrome wit h both constipation and diarrhea 03/20/2024 Nicotine dependence 03/20/2024 Open-angle glaucoma 03/20/2024 Post-cholecystectomy syndrome 03/20/2024 Presbyesophagus 03/20/2024 Spondylosis of lumbar region without myelopathy or radiculopathy 03/20/2024 Urine incontinence 03/20/2024 Depression 03/20/2024 Cystocele with uterine prolapse 03/20/2024 Hypertrophy of lingual tonsil 03/18/2024 Hypertrophy of tonsils and adenoids 03/18/2024 Thyroid nodule 03/18/2024 Assessment & Plan (03/24/2024 6:23 PM EDT): Pt reports she has [facility], notes not available at this time Hair loss 10/11/2023 Assessment & Plan (02/12/2024 1:20 PM EDT): Patient with previous c/o hair loss Evaluated by Dermatology Started on minoxidil (Loniten) 2.5 MG tablet; Take 1 tablet (2.5 mg) by mouth in the morning by Dermatology Assessment & Plan (01/17/2024 12:56 PM EDT): Patient with previous c/o hair loss Evaluated by Dermatology Started on minoxidil (Loniten) 2.5 MG tablet; Take 1 tablet (2.5 mg) by mouth in the morning. By Dermatology Assessment & Plan (10/11/2023 11:59 AM EST): Patient here with c/o hair loss On exam, no clear evidence of alopecia, pt complaints she looses her hair in clumps Obtain TSH, Derm referral Left foot pain 06/26/2023 Assessment & Plan (06/26/2023 12:14 PM EDT): Pt with c/o left foot pain for > 1 month On exam there is tenderness to palpation lateral aspect of left foot. No redness, no palpable mass Plain films left foot pending Podiatry evaluation pending 07/09/2023 Uterine prolapse 06/26/2023 Assessment & Plan (06/26/2023 12:41 PM EDT): Pelvis exam indicative of this Plan: [facility] referral Right foot pain 05/10/2023 Assessment & Plan (06/26/2023 12:13 PM EDT): Pt with c/o right foot pain for > 1 month On exam there is tenderness to palpation lateral aspect of right foot. No redness, no palpable mass Plain films right foot showed: Small degenerative calcaneal spurs. No acute fracture. Podiatry evaluation pending 07/09/2023 Assessment & Plan (05/10/2023 10:59 AM EDT): Pt with c/o right foot pain for > 1 month On exam there is tenderness to palpation lateral aspect of right foot. No redness, no palpable mass Plan: Plain films left foot Podiatry evaluation Acquired clavicle deformity 04/20/2023 Assessment & Plan (05/15/2024 1:26 PM EDT): Pt seen by Dr Harley She suspected costochondritis, ordered x-ray of the clavicle that was unremarkable prescribed diclofenac gel to affected area + heat pads to affected area Repeat x-rays with weight 09/27/2023 were normal. Pt was seen by ENT Last note 04/25/2024 had a fiberoptic laryngoscopy that was unremarkable per his note He ordered a CT of her neck given complaints of sternoclavicular prominence. CT showed diffuse enlargement of Waldeyer's ring tissue (tonsils, adenoids, lingual tonsil). CT also showed a thyroid nodule. Thyroid US showed a right 1.5 cm thyroid nodule TR4 and FNA was recommended. Patient underwent US guided biopsy. Pathology was reviewed by ENT to be benign. 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 He provided overall reassurance. CT chest showed: IMPRESSION: Enlarged anterior mediastinal lymph nodes. Infectious, inflammatory and neoplastic processes should be considered. Chest CT follow-up, PET/CT or tissue sampling should be considered. Small 2 mm bilateral pulmonary nodules. This may represent peripheral or subpleural lymph nodes. Pt referred to Pulmonology Assessment & Plan (02/12/2024 1:37 PM EDT): Pt seen by Dr Harley She suspected costochondritis, ordered x-ray of the clavicle that was unremarkable prescribed diclofenac gel to affected area + heat pads to affected area Repeat x-rays with weight 09/27/2023 were normal. Pt saw ENT 11/08/[address] of neck done: 11/27/2023 It showed: very enlarged palatine tonsils, adenoid tissue and lingula tonsil most consistent with diffuse widening of Waldeyer;s ring. This appears to create a significant airway narrowing in the pharynx. The lingula tonsil presses upon the epiglottis. There is also a 1 cm nodule seen in the right lobe of the thyroid gland. Pt is already scheduled to have a Thyroid US 02/19/2024 ordered by the ENT After completion of ENT work up we may obtaion an US and or CTA chest to r/o thoracic outlet syndrome given presence of dysphagia. Assessment & Plan (01/17/2024 1:08 PM EDT): Pt seen by Dr Harley She suspected costochondritis, ordered x-ray of the clavicle that was unremarkable prescribed diclofenac gel to affected area + heat pads to affected area Repeat x-rays with weight 09/27/2023 were normal. Pt tells me ENT ordered a CT of neck Will request results Pending on the results of the CT of neck we might consider an US and or CTA chest to r/o thoracic outlet syndrome given presence of dysphagia pt will fu in 4 weeks in person Assessment & Plan (05/10/2023 11:03 AM EDT): Pt seen by Dr Harley She suspected costochondritis, ordered x-ray of the clavicle that was unremarkable prescribed diclofenac gel to affected area + heat pads to affected area Will order further x-rays with weight and if need be will proceed with US and or CTA to r/o thoracic outlet syndrome given presence of dysphagia if symptoms do not resolve, pt will fu in 4 weeks Assessment & Plan (04/20/2023 1:04 PM EDT): r/o costochondritis, order x-ray of the clavicle use diclofenac gel to affected area + heat pads to affected area pt to fu with PCP, r/o thoracic outlet syndrome given presence of dysphagia if symptoms do not resolve, pt will fu in 2-3 weeks H/O benign essential tremor 04/03/2023 Assessment & Plan (04/03/2023 1:20 PM EDT): pt previously with c/o of tremor. Evaluated by Neurology 11/04/2018 whose impression was that pt had essential tremor. she had also c/o of Ataxia and he recommended an MRI of brain that was done 01/13/2019 that was unremarkable. pt will continue to follow with Neurology Oral phase dysphagia 04/03/2023 Assessment & Plan (05/15/2024 1:18 PM EDT): Pt with previous c/o difficulty swallowing Given that she is a smoker for > 30 years I proceeded with a Barium Swallow that was unremarkable Pt was seen by ENT Last note 04/25/2024 had a fiberoptic laryngoscopy that was unremarkable per his note He ordered a CT of her neck given complaints of sternoclavicular prominence. CT showed diffuse enlargement of Waldeyer's ring tissue (tonsils, adenoids, lingual tonsil). CT also showed a thyroid nodule. Thyroid US showed a right 1.5 cm thyroid nodule TR4 and FNA was recommended. Patient underwent US guided biopsy. Pathology was reviewed by ENT to be benign. 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 He provided overall reassurance. Pt also being followed by GI last seen 02/08/2023 Assessment & Plan (01/17/2024 1:03 PM EDT): Pt with previous c/o difficulty swallowing Given that she is a smoker for > 30 years I proceeded with a Barium Swallow that was unremarkable Pt was seen by ENT Last note 11/08/2023 had a fiberoptic laryngoscopy that was unremarkable per his note He ordered a CT of her neck given complaints of sternoclavicular prominence. Pt tells me she has an appointment with him tomorrow Pt also being followed by GI last seen 02/08/2023 Assessment & Plan (05/10/2023 10:53 AM EDT): Pt with previous c/o difficulty swallowing Given that she is a smoker for > 30 years I proceeded with a Barium Swallow that was unremarkable as well as an ENT evaluation for a fiberoptic laryngoscopy that is scheduled for 07/03/2023 Pt also being followed by GI last seen 02/08/2023 Assessment & Plan (04/03/2023 1:42 PM EDT): Pt with c/o difficulty swallowing x 2 weeks Given that she is a smoker for > 30 years will need to proceed with a Barium Swallow as well as an ENT evaluation for a fiberoptic laryngoscopy Restrictive lung disease 10/19/2022 Assessment & Plan (09/16/2024 3:49 PM EST): Here for a f/u Smoker, c/o intermittent wheezing, exam today normal PFTs 12/13/2021 showed: Mild restrictive ventilatory defect with no bronchodilator response except in small to medium airways. Pt evaluated by Pulmonology last seen 06/2024 Recommended to follow up with them Assessment & Plan (04/03/2023 1:18 PM EDT): Here for a f/u Smoker, c/o intermittent wheezing, exam today normal PFTs 12/13/2021 showed: Mild restrictive ventilatory defect with no bronchodilator response except in small to medium airways. Microscopic hematuria 10/19/2022 Assessment & Plan (09/16/2024 10:24 AM EST): Pt with previous c/o right sided flank pain, Urine dipstick positive for blood Seen in the past by Urology Renal U/S 11/07/2023 Normal Patient was seen by Urology 11/30/[address] Urogram. Pt never followed up. Pt tells me she missed the appointment Assessment & Plan (02/12/2024 1:18 PM EDT): Pt with previous c/o right sided flank pain, Urine dipstick positive for blood Seen in the past by Urology Renal U/S 11/07/2023 Normal Patient was seen by Urology 11/30/[address] Urogram Assessment & Plan (10/11/2023 11:59 AM EST): Pt with c/o right sided flank pain, Urine dipstick positive for blood Seen in the past by Urology Etiology ? Plan: Renal U/S to rule out nephrolithiasis Urology evaluation Positive MAURICE (antinuclear antibody) 10/19/2022 Assessment & Plan (04/03/2023 1:20 PM EDT): As part of the work up by Neurology her MAURICE was positive and speckeled. Pt was seen by Rheumatology 04/10/2019 her impression was that pt did not have any other symptoms to suggest an autoimmune process Chronic nonintractable headache 10/19/2022 Assessment & Plan (05/15/2024 1:23 PM EDT): Patient here for a follow up with c/o recurrence of severe headaches, described as intensity 8/10 Not associated with any other symptoms, no blurred vision, no photophobia, no neck rigidity, no fever, no nausea, no vomiting/ Pt has had similar headaches in the past. No recent trauma. Etiology ? Migraines ? Evaluated in the past for this by Neurology. Previous Neurologist cannot see her again due to 2 No shows. Last seen on 11/04/2018 MRI of brain done 01/13/2019 that was unremarkable. PT using Tylenol with no good results, cannot tolerate NSAIDS Patient was eventually seen at [facility] [place] neurology 04/04/2024. They recommended repeat brain MRI and mrv Naratriptan for abortive tratment and emgality injection for maintenance and Ambuklatory sleep study Assessment & Plan (02/12/2024 1:33 PM EDT): Patient here for a follow up with c/o recurrence of severe headaches, described as intensity 8/10 Not associated with any other symptoms, no blurred vision, no photophobia, no neck rigidity, no fever, no nausea, no vomiting/ Pt has had similar headaches in the past. No recent trauma. Etiology ? Migraines ? Evaluated in the past for this by Neurology. Previous Neurologist cannot see her again due to 2 No shows. Last seen on 11/04/2018 MRI of brain done 01/13/2019 that was unremarkable. PT using Tylenol with no good results, cannot tolerate NSAIDS [facility] neurology is not accepting new patients at the moment. Will try to refer to a different Neurologist perhaps at [facility] Assessment & Plan (01/17/2024 1:06 PM EDT): Patient with c/o recurrence of severe headaches, described as intensity 8/10 Not associated with any other symptoms, no blurred vision, no photophobia, no neck rigidity, no fever, no nausea, no vomiting/ Pt has had similar headaches in the past. No recent trauma. Etiology ? Migraines ? Evaluated in the past for this by Neurology Used to ne under the care of Neurology. Last seen on 11/04/2018 MRI of brain done 01/13/2019 that was unremarkable. PT using Tylenol with no good results, cannot tolerate NSAIDS Recommended to come and be seen in person if symptoms do not improve, I will also be referring to Neurology at [facility] Assessment & Plan (04/03/2023 1:22 PM EDT): Under the care of Dr Chad Acosta. Last seen on 04/20/2014 He started her on Amitriptyline 25 mg po qhs. and recommended a 6 month f/u. Preventative health care 10/19/2022 Assessment & Plan (09/16/2024 3:54 PM EST): Mammogram: : 09/24/2023 Normal Pap Smear: Pap NIL/HPV neg 03/2021. Pt had EGD and Colonoscopy by Dr Logan 09/06/2017 EGD was normal and Colonoscopy showed a Hyperplastic polyp. Dr Logan recommended a 5 year repeat. She had a repeat 08/30/2022 showed polyp and hemorrhoids GI recommended 5-7 year follow up Assessment & Plan (04/03/2023 1:33 PM EDT): Mammogram: : 12/17/2018 Normal Pap Smear: Pap NIL/HPV neg 03/2021. Pt had EGD and Colonoscopy by Dr Logan 09/06/2017 EGD was normal and Colonoscopy showed a Hyperplastic polyp. Dr Logan recommended a 5 year repeat. She had a repeat 08/30/2022 showed polyp and hemorrhoids GI recommended 5-7 year follow up Anxiety and depression 10/09/2022 Assessment & Plan (05/15/2024 1:34 PM EDT): Patient has tried many different antidepressants and mood stabilizers but she was intolerant of everything. She is doing reasonably well. Her panic attacks respond to Hydroxyzine 25 mg prn. She takes Clonazepam 1 mg TID prn. And Ambien 10 mg at bedtime. This was prescribed by Hima Fam who recently retired Pt has a therapist at [facility] I recommended she speak with therapist about referral to agency psychiatrist, In the meantime I will manage medications if necessary. Continue: clonazePAM (KlonoPIN) 1 MG tablet hydrOXYzine HCl (Atarax) 25 MG tablet zolpidem (Ambien) 10 MG tablet Assessment & Plan (01/28/2024 3:48 PM EDT): Has tried many different antidepressants and mood stabilizers but she was intolerant of everything. Still doing reasonably well, although forgetfulness is likely r/t her anxious depression. Panic attacks respond to Hydroxyzine 25 mg prn. Continue Clonazepam 1 mg TID prn. Also Ambien 10 mg at bedtime. Also has Gabapentin 100 mg TID per PCP. Continue with therapist and recommend she speak with therapist about referral to agency psychiatrist, since this provider will be retiring. Her PCP is also available to manage medications if necessary. For any issues or concerns, contact [facility]. All her questions were answered and I have wished her well. She agrees with the plan. Assessment & Plan (12/10/2023 2:31 PM EDT): Has tried many different antidepressants and mood stabilizers but she was intolerant of everything. Still doing reasonably well despite anxiety about health issues. Has discontinued Buspirone since it makes her feel weird. Panic attacks respond to Hydroxyzine 25 mg prn. Continue Clonazepam 1 mg TID prn. Also Ambien 10 mg at bedtime. Also has Gabapentin 100 mg TID per PCP. Continue with therapist. On 08/09/2023 provider informed the patient that I would be retiring, and suggested she speak with therapist about referral to agency psychiatrist. Meanwhile, F/U with me in 2 months. She agrees with the plan. Assessment & Plan (10/09/2023 10:20 AM EST): Has tried many different antidepressants and mood stabilizers but she was intolerant of everything. Continues doing well despite family stressors. Panic attacks respond to Hydroxyzine 25 mg prn. Continue Buspirone 10 mg TID, Clonazepam 1 mg TID prn. Also Ambien 10 mg at bedtime. Also has Gabapentin 100 mg TID per PCP. Continue with therapist. On 08/09/2023 provider informed the patient that I would be retiring, and suggested she speak with therapist about referral to agency psychiatrist. Alternatively, PCP might be willing to continue managing her psychiatric medications. Meanwhile, F/U with me in 2 months. She agrees with the plan. Assessment & Plan (08/09/2023 3:51 PM EST): Has tried many different antidepressants and mood stabilizers but she was intolerant of everything. Doing well, panic attacks respond to Hydroxyzine 25 mg prn. Continue Buspirone 10 mg TID, Clonazepam 1 mg TID prn. Also Ambien 10 mg at bedtime. Continue with therapist. Today 08/09/2023 provider informed the patient that I would be retiring within the next year or so, and suggest she speak with therapist about referral to agency psychiatrist. Alternatively, PCP might be willing to continue managing her psychiatric medications. F/U with me in 2 months. She agrees with the plan. Assessment & Plan (05/08/2023 1:19 PM EDT): Has tried many different antidepressants and mood stabilizers but she was intolerant of everything. Doing reasonably well. Continue Buspirone 10 mg TID, Clonazepam 1 mg TID, and Hydroxyzine 25 mg every 6 hours taken at first sign of panic attack. May also continue Ambien 10 mg at bedtime. Continue with therapist. F/U with me in 2-3 months. She agrees with the plan. Assessment & Plan (04/03/2023 1:19 PM EDT): Pt is being followed by a psychotherapist and [facility]. [facility] mentioned pt has had problems with every tried anti depressant from every category and is suspecting Bipolar rather than unipolar depression Patient denies any suicidal ideation or thoughts, Patient has crisis numbers and knows to use them if needed. Pt will follow with [facility] once every 3 months Assessment & Plan (02/08/2023 12:29 PM EDT): Has tried many different antidepressants and mood stabilizers but she was intolerant of everything. Anxiety is still not fully controlled. Again recommend taking a full tab of the Buspirone 10 mg TID. Also continue Clonazepam 1 mg TID, and Hydroxyzine 25 mg every 6 hours taken at first sign of panic attack. May also continue Ambien 10 mg at bedtime. Continue with therapist. F/U with me in 2-3 months. She agrees with the plan. Assessment & Plan (12/12/2022 3:44 PM EDT): Has tried many different antidepressants and mood stabilizers but she was intolerant of everything. More anxious recently, with new onset of head tremor associated with anxiety (does not occur at other times). Recommend taking a full tab of the Buspirone 10 mg TID. Also continue Clonazepam 1 mg TID, and Hydroxyzine 25 mg every 6 hours taken at first sign of panic attack. May also continue Ambien 10 mg at bedtime. Continue with therapist. F/U with me in 2 months. She agrees with the plan. Assessment & Plan (10/09/2022 5:21 PM EST): Has tried many different antidepressants and mood stabilizers but she was intolerant of everything. No med changes at this time. Continue Clonazepam 1 mg TID, Buspirone 10 mg 1/2 - 1 full tab TID, and Hydroxyzine 25 mg every 6 hours taken at first sign of panic attack. May also continue Ambien 10 mg at bedtime. Continue with therapist. F/U with me in 2 months. She agrees with the plan. Essential hypertension 06/22/2015 Assessment & Plan (09/16/2024 10:17 AM EST): Patient here for a follow up She [...] 08/05/2024 CREATININE 0.82 06/13/2024 Within normal limits Assessment & Plan (05/15/2024 1:26 PM EDT): Patient here for a follow up She is on: Losartan 100 mg po daily, Norvasc 10 mg po daily Patient to continue taking medications as prescribed. Assessment & Plan (02/12/2024 1:38 PM EDT): Patient here for a follow up She is on: Losartan 100 mg po daily, Norvasc 10 mg po daily Patient to continue taking medications as prescribed. Assessment & Plan (04/03/2023 1:13 PM EDT): Patient here for a follow up She is on: Losartan 100 mg po daily, Norvasc 10 mg po daily Patient to continue taking medications as prescribed. Fibromyalgia 09/26/2012 Assessment & Plan (09/16/2024 10:26 AM EST): Patient here for a follow up Her physical findings: trigger points found entire back, shoulders, knees and elbows. Patient stopped taking gabapentin before due to tiredness. She had agreed to attempt taking gabapentin again starting at a lower dose. Prescriptions: Gabapentin 100mg PO QD Pt used to be under the care of government affairs specialist who had been prescribing Baclofen Assessment & Plan (04/03/2023 1:14 PM EDT): Patient here for a follow up Her physical findings: trigger points found entire back, shoulders, knees and elbows. Patient stopped taking gabapentin before due to tiredness. She had agreed to attempt taking gabapentin again starting at a lower dose. Prescriptions: Gabapentin 100mg PO QD Pt used to be under the care of government affairs specialist who had been prescribing tramadol 100mg PO TID. Patient did not request narcotics today. Chronic low back pain 05/02/2012 Assessment & Plan (06/26/2023 12:15 PM EDT): Pt here for a f/u Previously patient came in with c/o chronic persistent low back pain, not improving despite medical treatment, complaining of associated numbness and tingling MRI Lumbar spine 08/08/2022 showed: 1. Normal spinal alignment, with mild disc degenerative change and minor spondylosis at L3-L4. 2. Multilevel bilateral facet arthropathy, most apparent at L4-L5 with ligamentum flavum thickening and mild central canal stenosis at this level with mild narrowing of the right subarticular recess. 3. Small inferior foraminal disc protrusions at L4-L5 and L5-S1 without neural impingement. 4. Small foraminal/extraforaminal disc protrusions noted bilaterally at L3-L4 without neural impingement. Pt was seen at [facility] 04/2023 and has a follow up appointment Assessment & Plan (05/10/2023 11:05 AM EDT): Pt here for a f/u Previously patient came in with c/o chronic persistent low back pain, not improving despite medical treatment, complaining of associated numbness and tingling MRI Lumbar spine 08/08/2022 showed: 1. Normal spinal alignment, with mild disc degenerative change and minor spondylosis at L3-L4. 2. Multilevel bilateral facet arthropathy, most apparent at L4-L5 with ligamentum flavum thickening and mild central canal stenosis at this level with mild narrowing of the right subarticular recess. 3. Small inferior foraminal disc protrusions at L4-L5 and L5-S1 without neural impingement. 4. Small foraminal/extraforaminal disc protrusions noted bilaterally at L3-L4 without neural impingement. Pt was seen at [facility] recently has a follow up recommended PT first Assessment & Plan (04/03/2023 1:51 PM EDT): Pt here for a f/u Previously patient came in with c/o chronic persistent low back pain, not improving despite medical treatment, complaining of associated numbness and tingling MRI Lumbar spine 08/08/2022 showed: 1. Normal spinal alignment, with mild disc degenerative change and minor spondylosis at L3-L4. 2. Multilevel bilateral facet arthropathy, most apparent at L4-L5 with ligamentum flavum thickening and mild central canal stenosis at this level with mild narrowing of the right subarticular recess. 3. Small inferior foraminal disc protrusions at L4-L5 and L5-S1 without neural impingement. 4. Small foraminal/extraforaminal disc protrusions noted bilaterally at L3-L4 without neural impingement. Pt will be referred to [facility] Smoker 02/21/2012 Assessment & Plan (04/03/2023 1:41 PM EDT): Pt smoking 1 ppd. Chantix has used it in the past with good results. Aware of potential of worsening depression and suicidal thoughts. pt knows to stop if that happens Smoker for > 30 years 30 pack years Will proceed with a low dose Chest CT to screen for lung cancer Resolved Problems Problem Noted Date Diagnosed Date Resolved Date Wheeze 03/24/2024 09/16/2024 Abnormal imaging of thyroid 03/23/2024 09/16/2024 Chest pain 03/20/2024 09/16/2024 Contusion of rib on right side 03/20/2024 09/16/2024 LUQ abdominal pain 03/20/2024 Nausea 03/20/2024 09/16/2024 Palpitations 03/20/2024 09/16/2024 Preop examination 03/20/2024 09/16/2024 Right sided abdominal pain 03/20/2024 0 09/16/2024 Stress incontinence 03/20/2024 09/16/19 Chronic headaches 03/20/2024 09/16/2024 Erosive gastritis 03/20/2024 09/16/2024 Restrictive airway disease 03/20/2024 0 09/16/2024 Persistent cough 07/12/2023 09/16/2024 Assessment & Plan (07/12/2023 4:00 PM EDT): Drink plenty of fluids, rest Acetaminophen PRN Patient will be contacted with results Analy vaginitis 06/26/2023 09/16/2024 Acute vaginitis 06/26/2023 09/16/2024 Assessment & Plan (06/26/2023 3:13 PM EDT): Exam indicative of analy Plan; Terazol vaginal x 7 days BV panel and CG and Chlamydia sent as well doubt Intercostal pain 04/20/2023 09/16/2024 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 Gastritis 02/21/2012 09/16/2024 Encounters Date Type Department Care Team Description 10/11/2024 Refill [facility] [address] [place] [address] Mychal Fields MD 10/11/2024 Refill [facility] [address] [place] [address] Bette Wynn MD Low vitamin D level 10/06/2024 1:15 PM EST Office Visit [facility] [address] [place] [address] Nabeel Magana MD Pre-op evaluation (Primary Dx) 10/06/2024 Refill [facility] [address] [place] [address] Mychal Fields MD Anxiety and depression 10/06/2024 Travel 10/03/[address] [address] Mychal Fields MD December09/22/2024 Orders Only GENERIC EXTERNAL DATA DEPARTMENT Provider, Generic External Data 09/18/[address] [address] Mychal Fields MD PRE OP 09/16/2024 10:00 AM EST Office Visit [address] [address] Mychal Fields MD JERRI (obstructive sleep apnea) (Primary Dx); Abnormal CT of the chest; Essential hypertension; Microscopic hematuria; Fibromyalgia; Subacute cough; Restrictive lung disease; Enlarged lymph nodes; Preventative health care 09/16/[address] [address] Mychal Fields MD Appointment Request 09/16/2024 Orders Only GENERIC EXTERNAL DATA DEPARTMENT Provider, Generic External Data 09/16/[address] [address] Mychal Fields MD Appointment Request 09/16/2024 Travel 09/11/2024 Refill [facility] [address] [place] [address] Claudette Nassar MD Anxiety and depression 09/04/[address] [address] Mychal Fields MD Chart Prep 08/25/[address] [address] Toño Lim [place] Lab order D-Dimer STAT 08/15/[address] [address] Margarita Reagan RN Lab Orders (STAT D-Dimer) 08/12/2024 Refill [facility] [address] [place] [address] Mychal Fields MD Anxiety and depression 08/11/[address] [address] Cinthya Dover ANP Essential hypertension 08/05/2024 5:20 PM EST Office Visit [facility] [address] [place] [phone] Bette Wynn MD Cough in adult patient (Primary Dx) 08/05/2024 Orders Only GENERIC EXTERNAL DATA DEPARTMENT Provider, Generic External Data 08/05/2024 Travel 08/05/[address] [address] Mychal Fields MD Nurse Triage 07/23/2024 2:00 PM EST Office Visit [address] [address] Genesis Carrero, LORENA Tenderness of chest wall (Primary Dx); Acute cough; Encounter for tobacco use cessation counseling 07/23/2024 Travel 07/23/[address] [address] Mychal Fields MD Nurse Triage 07/23/[address] [address] Mychal Fields MD Durable Medical Equipment 07/13/[address] [address] Mychal Fields MD Low vitamin D level from Last 3 Months Immunizations Name Administration Dates Next Due Influenza injectable quadriv alent preservative free 05/24/2022,09/08/2021,06/09/2020,10/09 Influenza, IIV3, injectable 06/16/2014, 3 Influenza, Split (incl. jason fied surface antigen) 11/16/2016,09/26/2012 Pfizer Covid-19 Vaccine 12+ 06/20/2022 Pfizer Covid-19 Vaccine 12+ matteo-sucrose (Chapman Cap) 06/20/2022 Pneumococcal Polysaccharide PPSV23 12/28/2011 TD (adult), 2 Lf tetanus tox oid, preservative free, adsorbed 11/27/2000,02/22/2000 Td (adult), 5 Lf tetanus tox oid, preservative free, adsorbed 11/16/2016 Tdap 08/01/2022 Social History Tobacco Use Types Packs/Day Years [...] not to disclose 2021 10:15 AM EDT Last Filed Vital Signs Vital Sign Reading [...] Mass Index 37.42 10/06/2024 1:43 PM EST Plan of Treatment Health Maintenance Due Date Last Done Comments CT Colonography 1970 FIT DNA/Cologuard 1970 FIT 1970 FOBT 1970 Sigmoidoscopy 1970 Alcohol/Substance Use Screening 1982 Hepatitis A Vaccines (1 of 2 - Risk 2-dose series) 1989 Hepatitis B Vaccines (1 of 3 - 19+ 3-dose series) 1989 Pneumococcal Vaccine: 50+ Years (2 of 2 - PCV) 12/27/2012 12/28/2011 Zoster Vaccines (1 of 2) 2020 COVID-19 Vaccine ( - season) 2024 06/20/2022, 06/20/2022, 05/17/2021 Influenza Vaccine (#1) 2024 , 09/08/2021, 06/09/2020, Additional history exists SDOH Screening 05/15/2025 05/15/2024 Lipid Panel 06/17/2025 06/17/2020 Depression Screening 09/16/2025 09/16/2024, 09/16/19 Mammogram 09/24/2025 09/24/2023, 12/17/2018 Tobacco Screening 10/06/2025 10/06/2024 Colonoscopy 08/30/2027 08/30/2022 Colorectal Cancer Screening 08/30/2027 Cervical Cancer Screening 08/23/2028 HPV/Cotest 08/23/2028 08/23/2023, 04/06/2021 Pap Smear 08/23/2028 08/23/2023, 04/06/2021 DTaP/Tdap/Td Vaccines (2 - Td or Tdap) 08/01/2032 08/01/2022, 11/16/2016, 11/27/2000, Additional history exists RSV Patients and Patients Aged 60 years or older (1 - 1-dose 75+ series) 2045 HIV Screening Completed 09/22/2024 Hepatitis C Screening Completed 09/22/2024 HIB Vaccines Aged Out No longer eligi ble based on patient's age to complete this topic HPV Vaccines Aged Out No longer eligi ble based on patient's age to complete this topic IPV Vaccines Aged Out No longer eligi ble based on patient's age to complete this topic Meningococcal Vaccine Aged Out No anish mar eligible based on patient's age to complete this topic RSV under 20 months Aged Out No longe r eligible based on patient's age to complete this topic Rotavirus Vaccines Aged Out No longer eligible based on patient's age to complete this topic Procedures Procedure Name Priority Date/Time Associated Diagnosis Comments XR KNEE 4+ VIEWS LEFT Routine 09/22/2024 12:50 PM EST XR KNEE 4+ VIEWS RIGHT Routine 12:50 PM EST XR CHEST 2 VIEWS Routine 09/22/2024 12:5 0 PM EST Subacute cough HEPATITIS B SURFACE ANTIGEN, EIA Routine 09/22/2024 12:35 PM EST HIV 1/2 ANTIGEN/ANTIBODY, FOURTH GENERATION W/RFL Routine 09/22/2024 12:35 PM EST HEPATITIS C ANTIBODY Routine 09/22/2024 12:35 PM EST SYPHILIS SCREEN Routine 09/22/2024 12:35 PM EST CREATININE, SERUM Routine 09/22/2024 12: 35 PM EST UREA NITROGEN (BUN) Routine 09/22/2024 1 2:35 PM EST CREATININE, SERUM Routine 09/16/2024 11: 09 AM EST UREA NITROGEN (BUN) Routine 09/16/2024 1 1:09 AM EST D DIMER HIGH SENSITIVITY Routine 09/16/2024 11:09 AM EST Subacute cough HIGH SENSITIVITY TROPONIN I Routine 08/05/2024 6:21 PM EST COMPREHENSIVE METABOLIC PANEL Routine 08/05/2024 6:21 PM EST PROTHROMBIN TIME-INR Routine 08/05/2024 6:21 PM EST CBC WITH AUTO DIFFERENTIAL Routine 08/05/2024 6:21 PM EST POCT RAPID COVID ANTIGEN Routine 08/05/2024 5:31 PM EST Cough in adult patient POCT INFLUENZA B (ID NOW RAPID MOLECULAR) Routine 08/05/2024 5:30 PM EST Cough in adult patient POCT INFLUENZA A (ID NOW RAPID MOLECULAR) Routine 08/05/2024 5:30 PM EST Cough in adult patient POCT INFLUENZA B (ID NOW RAPID MOLECULAR) Routine 07/23/2024 3:05 PM EST Acute cough POCT INFLUENZA A (ID NOW RAPID MOLECULAR) Routine 07/23/2024 3:04 PM EST Acute cough POCT COVID-19 AG HERNANDEZ ID NOW Routine 07/23/2024 3:03 PM EST Acute cough BI MAMMOGRAM SCREENING TOMOSYNTHESIS BILATERAL Routine 09/24/2023 4:24 PM EST HPV MRNA E6/E7 REFLEX TO HPV 16, 18/45 Routine 08/23/2023 2:22 PM EST PAP SMEAR Routine 08/23/2023 2:22 PM EST Postmenopausal bleeding Cervical cancer screening HM COLONOSCOPY Routine 08/30/2022 LIPID PANEL, STANDARD Routine 06/17/2020 3:00 PM EDT from Last 3 Months or Most Recently Relevant to Health Maintenance Results * XR Knee 4+ Views Right (09/22/2024 12:50 PM EST) Anatomical Region Laterality Modality Lower Extremities, Knee Right Radiogra phic Imaging 09/22/2024 12:5 0 PM EST Narrative 09/24/2024 9:59 AM EST ? [facility] ?[address] ?[place] [address] ?XRay Report ? Signed ? Patient: Elaine Rodas ?MR#: [id number] ? : 1970 ?Acct:[id number] ? Age/Sex: 53 / F ?ADM Date: 09/22/24 ? Loc: HO.XRAY ? Attending Dr: Syed Coreas MD ? Ordering Physician: Brigid West MD ?? Date of Service: 09/22/24 ?? Procedure(s): XR knee RT 4V ?? Accession Number(s): [id number] ? cc: Brigid West MD; Mychal Long [...] DD/ 1250 ? TD/TT: 09/22/24 1312 ? Director Of Patient Safety: MSM ? Procedure Note Donartieter, Image - 09/24/[address] [address] XRay Report Signed Patient: Elaine RodasMR#: [id number] : 1970Acct:[id number] Age/Sex: 53 / FADM Date: 09/22/24 Loc: HO.XRAY Attending Dr: Syed Coreas MD Ordering Physician: Brigid West MD Date of Service: 09/22/24 Procedure(s): XR knee RT 4V Accession Number(s): [id number] cc: Brigid West MD; Mychal Long MD [...] Chidi Self MD 09/24/2024 09:56 AM EST Dictated By: Chidi Self MD Signed By: <Electronically signed by Chidi Self MD in OV> 09/24/24 0956 DD/ 1250 TD/TT: 09/22/24 1312 Director Of Patient Safety: MSM [facility] External Provider IMG XR PROCEDURES Final Result * XR Knee 4+ Views Left (09/22/2024 12:50 PM EST) Anatomical Region Laterality Modality Lower Extremities, Knee Left Radiogra phic Imaging 09/22/2024 12:5 0 PM EST Narrative 09/24/2024 10:01 AM EST ? [facility] ?[address] ?[place] [address] ?XRay Report ? Signed ? Patient: ClarkYumikoElaine ?MR#: [id number] ? : 1970 ?Acct:[id number] ? Age/Sex: 53 / F ?ADM Date: 09/22/24 ? Loc: HO.XRAY ? Attending Dr: Syed Coreas MD ? Ordering Physician: Brigid West MD ?? Date of Service: 09/22/24 ?? Procedure(s): XR knee LT 4V ?? Accession Number(s): [id number] ? cc: Brigid West MD; Mychal Long [...] AM EST RP ? Dictated By: ?Clair,Chidi Kimbrough MD ? Signed By: ?<Electronically signed by Chidi Self MD in OV> ?09/24/24 0959 ? DD/ 1250 ? TD/TT: 09/22/24 1312 ? Director Of Patient Safety: GARY ? Procedure Note Donotuseinterpreter, Image - 09/24/[address] [address] XRay Report Signed Patient: Elaine RodasMR#: [id number] : 1970Acct:[id number] Age/Sex: 53 / FADM Date: 09/22/24 Loc: TAD Attending Dr: Syed Coreas MD Ordering Physician: Brigid West MD Date of Service: 09/22/24 Procedure(s): XR knee LT 4V Accession Number(s): [id number] cc: Brigid West MD; Mychal Long MD [...] 09/24/24 0959 DD/ 1250 TD/TT: 09/22/24 1312 Director Of Patient Safety: MSM us [facility] External Provider IMG XR PROCEDURES Final Result * XR Chest 2 Views (09/22/2024 12:50 PM EST) Anatomical Region Laterality Modality Chest Radiographic Hilda ging 09/22/2024 12:5 0 PM EST Narrative 09/24/2024 10:02 AM EST ? [facility] ?[address] ?[place] [address] ?XRay Report ? Signed ? Patient: Clark,Elaine ?MR#: [id number] ? : 1970 ?Acct:[id number] ? Age/Sex: 53 / F ?ADM Date: 09/22/24 ? Loc: HO.XRAY ? Attending Dr: Syed Coreas MD ? Ordering Physician: Mychal Long MD ?? Date of Service: 09/22/24 ?? Procedure(s): XR chest 2V ?? Accession Number(s): [id number] ? cc: Mychal Long MD ? EXAMINATION: [...] EST RP ? Dictated By: ?Clair,Chidi S MD ? Signed By: ?<Electronically signed by Chidi S MD Clair in OV> ?09/24/24 0959 ? DD/ 1250 ? TD/TT: 09/22/24 1312 ? Director Of Patient Safety: MSM ? Procedure Note Yas Almodovar - 09/24/[address] [address] XRay Report Signed Patient: Elaine RodasMR#: [id number] : 1970Acct:[id number] Age/Sex: 53 / FADM Date: 09/22/24 Loc: JENNIFERAY Attending Dr: Syed Coreas MD Ordering Physician: Mychal Long MD Date of Service: 09/22/24 Procedure(s): XR chest 2V Accession Number(s): [id number] cc: Mychal Long MD EXAMINATION: XR CHEST [...] 09/24/24 0959 DD/ 1250 TD/TT: 09/22/24 1312 Director Of Patient Safety: GARY us Mychal Morris MD IMG XR PROCEDURES Fin al Result * Syphilis Screen (09/22/2024 12:35 PM EST) Pathologist [facility] Syphilis Screen Nonreactive Nonreactive [facility] 09/22/2024 12:3 5 PM EST 09/22/2024 12:35 PM EST us Generic External Data Provider LAB BLOOD ORDERAB LES Final Result [facility] [address] [place] [phone] * Hepatitis C Ab (09/22/2024 12:35 PM EST) Hepatitis C Antibody Nonreactive Nonreactive [facility] Comment:Antibodies to HCV no t detected; does not exclude early acuteHCV infection. 09/22/2024 12:3 5 PM EST 09/22/2024 12:35 PM EST Generic External Data Provider LAB BLOOD ORDERAB LES Final Result Performing Organization Address [facility] de Phone Number [facility] [address] [place] [phone] * Creatinine, Serum (09/22/2024 12:35 PM EST) Only the most recent of2 resultswithin the time period is included. Pathologist [facility] Creatinine, Serum 0.89 0.5 - 1.4 mg/dL [facility] Estimated Glomerular Filt Rate >60 [facility] Comment:Chronic Kidney Disea se: Estimated GFR < 60 mL/min/[id number] Kidney Disease: Estimated GFR < 15 mL/min/1.73m2 09/22/2024 12:3 5 PM EST 09/22/2024 12:35 PM EST Generic External Data Provider LAB BLOOD ORDERAB LES Final Result Performing Organization Address [facility] Co de Phone Number [facility] [address] [place] [phone] * Hepatitis B surface antigen, EIA (09/22/2024 12:35 PM EST) Pathologist [facility] Hepatitis B Surface Ag Negative Negative [facility] 09/22/2024 12:3 5 PM EST 09/22/2024 12:35 PM EST Generic External Data Provider LAB BLOOD ORDERAB LES Final Result Performing Organization Address [facility] Co de Phone Number [facility] [address] [place] [phone] * HIV-1/2 Antigen and Antibodies, Fourth Generation, with Reflexes (09/22/2024 12:35 PM EST) Pathologist [facility] HIV AB/AG Nonreactive Nonreactive [facility] Comment:HIV-1 p24 Ag and/or HIV-1/HIV-2 Ab not detected.A test result that is nonreactive does not exclude thepossibility of exposure to or infection with HIV-1 and/orHIV-2. Nonreactive results in this assay for individualswith prior exposure to HIV-1 and/or HIV-2 may be due toantigen and antibody levels that are below the limit ofdetection of this assay.The [employer] HIV Ag/Ab Combo assay result andsupplemental assay results should be interpreted inconjunction with the patient's clinical presentation,history and other laboratory results. If the results areinconsistent with clinical evidence, additional testing issuggested to confirm the result. 09/22/2024 12:3 5 PM EST 09/22/2024 12:35 PM EST Generic External Data Provider LAB BLOOD ORDERAB LES Final Result Performing Organization Address [facility] Co de Phone Number [facility] [address] [place] [phone] * BUN (Blood Urea Nitrogen) (09/22/2024 12:35 PM EST) Only the most recent of2 resultswithin the time period is included. Urea Nitrogen (BUN) 13 9 - 16 mg/dL [facility] 09/22/2024 12:3 5 PM EST 09/22/2024 12:35 PM EST Generic External Data Provider LAB BLOOD ORDERAB LES Final Result Performing Organization Address [facility] de Phone Number [facility] [address] [place] [phone] * D Dimer High Sensitivity (09/16/2024 11:09 AM EST) D Dimer High Sensitivity 203 NG/ML [facility] Comment:D-DIMER HS REFERENCE RANGENote: Our [...] Morris MD LAB BLOOD ORDERABLES Final Result Performing Organization Address [facility] Co de Phone Number [facility] [address] [place] [phone] * High Sensitivity Troponin I (08/05/2024 6:21 PM EST) [facility] TROPONIN I HIGH SENSITIVITY <2.7 <3.5 - 17.0 ng/L [facility] Comment:The Hernandez high sens itivity Troponin-I results should beused in conjunction with other diagnostic information suchas ECG, clinical observations and information, and patientsymptoms to aid in the diagnosis of ID. 08/05/2024 6:21 PM EST 08/05/2024 6:24 PM EST us Generic External Data Provider LAB BLOOD ORDERAB LES Final Result Performing Organization Address [facility] [facility] Phone Number [facility] [address] [place] [phone] * (ABNORMAL) CBC auto differential (08/05/2024 6:21 PM EST) White Blood Count 8.2 4.8 - 10.8 X10*3/uL [facility] Red Blood Count 4.26 4.20 - 5.50 X10*6/uL [facility] Hemoglobin 12.5 12.0 - 16.0 g/dl [facility] Hematocrit 37.0 37.0 - 47.0 % [facility] Mean Corpuscular Volume 86.9 80.0 - 98.0 fL [facility] Mean Corpuscular Hemoglobin 29.3 27.0 - 33.0 pg [facility] Mean Corpuscular HGB Conc 33.8 31.0 - 35.0 g/dl [facility] Red Cell Distribution Width 12.9 11.0 - 16.0 % [facility] Platelet Count 269 160 - 400 X10*3/uL [facility] Mean Platelet Volume 9.6 9.4 - 12.3 fL [facility] Neutrophils Percent Auto 47.3 45 - 73 % [facility] Imm Gran Pct Auto 0.2 0.0 - 0.4 % [facility] Lymphocytes Percent Auto 45.0(H) 20 - 40 % [facility] Monocytes Percent Auto 4.5 2 - 11 % [facility] Eosinophils Percent Auto 2.3 0 - 4 % [facility] Basophils Percent Auto 0.7 0 - 2 % [facility] NRBC Pct Auto 0.0 0.0 - 0.2 /100WBC [facility] Neutrophils Absolute Auto 3.9 2.0 - 8.3 x10*3/uL [facility] Imm Gran Abs Auto 0.02 0.00 - 0.03 X10*3/uL [facility] Lymphocytes Absolute Auto 3.7 1.2 - 4.9 X10*3/uL [facility] Monocytes Absolute Auto 0.4 0.1 - 1.2 X10*3/uL [facility] Eosinophils Absolute Auto 0.2 0.0 - 0.4 X10*3/uL [facility] Basophils Absolute Auto 0.1 0.0 - 0.2 X10*3/uL [facility] NRBC Abs Auto 0.000 0.0 - 0.012 X10*3/uL [facility] 08/05/2024 6:21 PM EST 08/05/2024 6:24 PM EST us Generic External Data Provider LAB BLOOD ORDERAB LES Final Result [facility] [address] [place] [phone] [phone] * Prothrombin Time-INR (08/05/2024 6:21 PM EST) Prothrombin Time 10.9 10.9 - 12.4 SEC [facility] INTERNATIONAL NORM RATIO 0.9 0.9 - 1.1 [facility] Comment:INTERNATIONAL NORMAL IZED RATIO (INR) REFERENCE RANGES Reference RangeFor patients not on anticoagulant therapy: 0.9 - 1.1INR ranges for oral anticoagulanttherapy:For prevention and treatment of venous thrombosis and pulmonary embolism: 2.0 - 3.0For acute myocardial infarction with aspirin therapy: 2.0 - 3.0For acute myocardial infarction without aspirin therapy: 3.0 - 4.0For patients with mechanical prosthetic heart valves: 2.5 - 3.5 08/05/2024 6:21 PM EST 08/05/2024 6:24 PM EST us Generic External Data Provider LAB BLOOD ORDERAB LES Final Result [facility] [address] [place] [phone] * (ABNORMAL) Comprehensive Metabolic Panel (08/05/2024 6:21 PM EST) Sodium 139 135 - 145 mmol/L [facility] Potassium 3.9 3.3 - 5.1 mmol/L [facility] Chloride 105 96 - 108 mmol/L [facility] Carbon Dioxide 29 22 - 29 mmol/L [facility] Anion Gap 9(L) 12 - 20 [facility] Urea Nitrogen (BUN) 11 9 - 16 mg/dL [facility] Creatinine, Serum 0.86 0.5 - 1.4 mg/dL [facility] Creatinine Clr Calc Pharmacy 88.6 [facility] Comment:Provided height and weight: 167.64 cm,96.5 kg.eGFR (calculated from the MDRD study equation) and eCrCl(calculated from the Cockcroft-Gault equation) are based ondifferent parameters and may not yield comparable results.If eCrCl result is absurd, please check patient'sheight/weight. Estimated Glomerular Filt Rate >60 [facility] Comment:Chronic Kidney Disea se: Estimated GFR < 60 mL/min/1.30z7Eiaurh Kidney Disease: Estimated GFR < 15 mL/min/1.73m2 Glucose 98 60 - 115 mg/dL [facility] Calcium 9.3 8.4 - 10.2 mg/dL [facility] Bilirubin, Total 0.2 0.0 - 1.0 mg/dL [facility] Aspartate Amino Transferase 17 5 - 31 U/L [facility] Alanine Aminotransferase 14 0 - 31 U/L [facility] Total Protein 7.6 6.5 - 8.0 g/dL [facility] Albumin Level 3.9 3.5 - 5.0 g/dL [facility] Alkaline Phosphatase 114 39 - 117 U/L [facility] 08/05/2024 6:21 PM EST 08/05/2024 6:24 PM EST Generic External Data Provider LAB BLOOD ORDERAB LES Final Result Performing Organization Address City/State/[facility] Co de Phone Number [facility] [address] [place] [phone] * POCT Rapid COVID-19 Binax NOW (08/05/2024 5:31 PM EST) [facility] Rapid COVID Ag Negative QC Media Lot # [id number] Lot# Expiration Date Swab 08/05/2024 5:31 PM EST Bette Wynn MD POINT OF CARE TEST ENTER/E DIT ORDERABLES Final Result * POCT Rapid Influenza B HERNANDEZ ID NOW (08/05/2024 5:30 PM EST) Only the most recent of2 resultswithin the time period is included. [facility] Influenza B Negative Negative, Indeterminate [facility] QC Media Lot # [id number] [facility] Lot# Expiration Date [facility] Swab 08/05/2024 5:30 PM EST Bette Wynn MD POINT OF CARE TEST ENTER/E DIT ORDERABLES Final Result Performing Organization Address City/[facility]/ZIP Co de Phone Number [facility] [address] [place] [address] [phone] * POCT Rapid Influenza A HERNANDEZ ID NOW (08/05/2024 5:30 PM EST) Only the most recent of2 resultswithin the time period is included. Influenza A Negative Negative, Indeterminate [facility] QC Media Lot # [id number] [facility] Lot# Expiration Date 3,026 [facility] Swab 08/05/2024 5:30 PM EST Bette Wynn MD POINT OF CARE TEST ENTER/E DIT ORDERABLES Final Result Performing Organization Address [facility] Co de Phone Number [facility] [address] [place] [address] [phone] * POCT Rapid Covid-19 HERNANDEZ ID NOW (07/23/2024 3:03 PM EST) Coronavirus Antigen PCR Negative Negative, Indeterminate, None Detected, Invalid, Specimen unsatisfactory for evaluation, Weakly Positive QC Media Lot # [id number] Lot# Expiration Date 926 Swab 07/23/2024 3:03 PM EST Genesis Carrero NP POINT OF CARE TEST ENTER/EDIT O RDERABLES Final Result * BI Mammogram Screening Tomosynthesis Bilateral (09/24/2023 4:24 PM EST) Anatomical Region Laterality Modality Breast Bilateral Mammography 09/24/2023 4:24 PM EST Narrative 10/12/2023 4:26 PM EST ? [facility] ?[address] ?[place] [address] ? Mammography Report ? Signed ? Patient: Clark,Elaine ?MR#: [id number] ? : 1970 ?Acct:[id number] ? Age/Sex: 52 / F ?ADM Date: 01/15/24 ? Loc: HO.US ? Attending Dr: Cecily Schwab CNJessica ? Ordering Physician: CECILY SCHWAB CNM ?Results: 1 ?? Negative ? Date of Service: 09/24/23 ?Follow Up: 1 Year From Orig ?? inal Mammogram ? Procedure(s): MM tomosynthesis screening BI ?? Accession Number(s): [id number] ? cc: Mychal Long MD; CECILY SCHWAB CNM ? EXAMINATION: ?? MM SCREENING DIGITAL BREAST TOMOSYNTHESIS, BILATERAL ? CLINICAL INFORMATION: ? Screening. Asymptomatic. ? COMPARISON: ?? Mammography: This study is compared with prior exams dating back to ?? 2016. ? TECHNIQUE: ?? Digital breast tomosynthesis is performed in both the craniocaudal and ?? mediolateral oblique views along with computer-aided detection (CAD). ?? Synthesized 2D images are generated from the tomosynthesis. ? FINDINGS: ?? There are scattered areas of fibroglandular density (ACR BI-RADS breast ?? composition Category b). ? There are no significant masses, abnormal calcifications, or other ?? abnormalities. ? MM/MM tomosynthesis screening BI ?? IMPRESSION: ?? No mammographic evidence of malignancy. ? ASSESSMENT: ? BI-RADS BI-RADS 1 - Negative ? RECOMMENDATION: ?? Routine annual mammography screening. ? 1 year F/U ? This examination should not preclude the clinical evaluation of a ?? suspicious palpable abnormality. ? This patient's information was entered into a reminder system with a ?? target due date for their next mammogram. ? Dictated By: ?Andree Porter MD ? Signed By: ?<Electronically signed by Andree Porter MD in OV> ? 10/12/231621 ? DD/ 1624 ? TD/TT: ? Director Of Patient Safety: ? Procedure Note Nishi, Yas - 10/12/2023 [place] [address] Mammography Report Signed Patient: Elaine RodasMR#: [id number] : 1970Acct:[id number] Age/Sex: 52 / FADM Date: 09/24/23 Loc: . Attending Dr: Cecily Schwab CNM Ordering Physician: CECILY SCHWABesults: 1 Negative Date of Service: 09/24/23Follow Up: 1 Year From Orig inal Mammogram Procedure(s): MM tomosynthesis screening BI Accession Number(s): [id number] cc: Mychal Long MD; CECILY SCHWAB CNM EXAMINATION: MM SCREENING DIGITAL BREAST TOMOSYNTHESIS, BILATERAL CLINICAL INFORMATION: Screening. Asymptomatic. COMPARISON: Mammography: This study is compared with prior exams dating back to 2016. TECHNIQUE: Digital breast tomosynthesis is performed in both the craniocaudal and mediolateral oblique views along with computer-aided detection (CAD). Synthesized 2D images are generated from the tomosynthesis. FINDINGS: There are scattered areas of fibroglandular density (ACR BI-RADS breast composition Category b). There are no significant masses, abnormal calcifications, or other abnormalities. MM/MM tomosynthesis screening BI IMPRESSION: No mammographic evidence of malignancy. ASSESSMENT: BI-RADS BI-RADS 1 - Negative RECOMMENDATION: Routine annual mammography screening. 1 year F/U This examination should not preclude the clinical evaluation of a suspicious palpable abnormality. This patient's information was entered into a reminder system with a target due date for their next mammogram. Dictated By: Andree Porter MD Signed By: <Electronically signed by Andree Porter MD in OV> 10/12/23 1622 DD/ 1624 TD/TT: Director Of Patient Safety: Cecily Schwab CNM IMG BI PROCEDURES Final R esult * HPV mRNA E6/E7 w/Reflex to HPV Genotypes 16, 18/45 (08/23/2023 2:22 PM EST) HPV nRNA E6/E7 Not Detected Not Detected [facility] Comment:Methodology: Transcr iption-Mediated AmplificationThis assay detects E6/E7 viral messenger RNA (mRNA) from 14high-risk HPV types (16,18,31,33,35,39,45,51,52,56,58,59,66,68).Cervical sources are required for HPV testing.If a vaginal source from a patient who has had atotal hysterectomy with removal of cervix wassubmitted, please contact the testing laboratoryfor alternative testing options.For additional information, please refer tohttp://education.[employer]/faq/FXT087g3(This link if provided for information/educational purposes only.)THIS TEST WAS PERFORMED AT:[email or web address] [place] [phone] PRESSLEY MD HPV mRNA E6/E7 [facility] HPV 16 RNA [facility] HPV 18/45 RNA [facility] 08/23/2023 2:22 PM EST 08/24/2023 9:35 AM EST Cecily Schwab CNM LAB CYTOLOGY ORDERABLES F inal Result [facility] [address] [place] [phone] * Pap Smear (08/23/2023 2:22 PM EST) Swab Cervix uteri structure / Unknown 08/23/2023 2:22 PM EST 08/24/2023 9:35 AM EST Narrative [facility] - 09/04/2023 1:23 PM EST ----- ------- Name: Elaine Rodas ?Age/Sex: 52/F ? : 1970 Unit#: [id number] ?? Attend Dr: ?Re08/23/23 ?Status: PRE REF ? Location: HO.LNP ?Disch: ? ----- ------- SPEC : [id number] ?RECD: 08/24/23-934 ? STATUS: ??SOUT ? REQ NUM: [id number] ? CHAPIN: 08/23/23 ? SUBM DR: CECILY SCHWAB CNM ? ENTERED: ??08/24/23 ?SP TYPE: Pap Smr ?OTHR DR: ? ORDERED: ??Pap Smear ? Interpretation ?? Satisfactory for evaluation. ?? No endocervical cells seen. ?? Cytolysis noted. ?? Negative for intraepithelial lesion or malignancy. ?HPV mRNA E6/E7: ?NOT DETECTED ? This assay detects E6/E7 viral messenger RNA (mRNA) from 14 high-risk HPV types (16, 18, ?? 31, 33, 35, 39, 45, 51, 52, 56, 58, 59, 66, 68) ?? HPV testing performed by [facility], [place], [place]. ??See reference laboratory ?? portion of the EMR for entire report. ?Clinical Information LMP: Postmenopausal Previous PAP test: Unknown date/findings Other history: Abnormal bleeding ? Material Received ?? ThinPrep-Cervical ----- ------- Signed (signature on file) Maureen R Botto, CT (ASCP) 09/04/23 1323 ? ----- ------- ? END OF REPORT ? Cecily Schwab [facility] CYTOLOGY ORDERABLES F inal Result [facility] [address] [place] [phone] * Colonoscopy (08/30/2022) [facility] Colonoscopy Normal Normal Historical Provider HEALTH MAINTENANCE Final Result * (ABNORMAL) LIPID PANEL, STANDARD (06/17/2020 3:00 PM EDT) [facility] HDL Cholesterol 53 > OR = 50 mg/dL [facility] Triglycerides 87 <150 mg/dL [facility] Non-HDL Cholesterol 128 <130 mg/dL (calc) [facility] Comment: For patients with diabetes plus 1 major ASCVD risk ?? factor, treating to a non-HDL-C goal of <100 mg/dL ?? (LDL-C of <70 mg/dL) is considered a therapeutic ?? option. Cholesterol, Total 181 <200 mg/dL [facility] LDL Cholesterol 110(H) mg/dL (calc) [facility] Comment: Reference range: <100 ?? Desirable range <100 mg/dL for primary prevention; ?? <70 mg/dL for patients with CHD or diabetic patients ?? with > or = 2 CHD risk factors. ?? LDL-C is now calculated using the Mina-Ruiz ?? calculation, which is a validated novel method providing ?? better accuracy than the Friedewald equation in the ?? estimation of LDL-C. ?? Mina SS et al. ASHUTOSH. 2013;310(19): 3343-4916 ?? (http://education.[employer]/faq/BXL041) Chol/HDLC Ratio 3.4 <5.0 (calc) [facility] 06/17/2020 3:00 PM EDT us Mychal Morris MD LAB BLOOD ORDERABLES Final Result [facility] [address] from Last 3 Months or Most Recently Relevant to Health Maintenance Insurance Team Apart C3 Care Teams Shingle Grader Relationship Specialty Start Date End Date Mychal Fields MD [address] [place] [address] PCP - General Internal Medicine 04/30/14 Hima Fam FNP [address] [place] [phone] Nurse Practitioner Family Medicine 08/01/23
--- OUTSIDE RECORDS SUMMARY | 2024-10-13 11:19 | XMS_ITS | Encounter Summary ---
Author Organization [employer] Address [address] [facility] [address] [place] [address] Care Team Providers Care Child Nutrition Assistant Name Role Phone Mychal Fields MD Primary Care Provide r Hima Fam Unavailable Unavailable Encounter Details Date Type Department Care Team (Latest Contact Info) Description 10/06/2024 Travel Social History Tobacco Use Types Packs/Day [...] documented as of this encounter Care Teams Child Nutrition Assistant Relationship Specialty Start Date End Date Mychal Fields MD [address] [place] [phone] PCP - General Internal Medicine 04/30/14 Hima Fam FNP [address] [place] [address] Nurse Practitioner Family Medicine 08/01/23 documented as of this encounter
--- OUTSIDE RECORDS SUMMARY | 2024-10-13 11:19 | XMS_ITS | Encounter Summary ---
Author Organization [employer] Address [address] [facility] [address] [place] [address] Care Team Providers Care Big Machine Consultant Name Role Phone Mychal Fields MD Primary Care Provide r Hima Fam Unavailable Unavailable Encounter Details Date Type Department Care Team (Late st Contact Info) Description 09/16/2024 Orders Only GENERIC EXTERNAL DATA DEPARTMENT [...] Procedure Name Priority Date/Time Associated Diagnosis Comments CREATININE, SERUM Routine 09/16/2024 11: 09 AM EST UREA NITROGEN (BUN) Routine 09/16/2024 1 1:09 AM EST documented in this encounter Results * Creatinine, Serum (09/16/2024 11:09 AM EST) Creatinine, Serum 0.88 0.5 - 1.4 mg/dL [facility] Estimated Glomerular Filt Rate >60 [facility] Comment:Chronic Kidney Disea se: Estimated GFR < 60 mL/min/1.35r1Hfpepa Kidney Disease: Estimated GFR < 15 mL/min/1.73m2 09/16/2024 11:0 9 AM EST 09/16/2024 1:03 PM EST us Generic External Data Provider LAB BLOOD ORDERAB LES Final Result [facility] [address] [place] [phone] * BUN (Blood Urea Nitrogen) (09/16/2024 11:09 AM EST) Urea Nitrogen (BUN) 11 9 - 16 mg/dL [facility] 09/16/2024 11:0 9 AM EST 09/16/2024 1:03 PM EST us Generic External Data Provider LAB BLOOD ORDERAB LES Final Result [facility] [address] [place] [phone] documented in this encounter Visit Diagnoses Not on filedocumented in this encounter Additional Health Concerns Assessment Noted Time PHQ-9 Depression Total Score: 6 09/16/19 25 10:06 AM EST documented as of this encounter Care Teams Big Machine Consultant Relationship Specialty Start Date End Date Mychal Fields MD [address] [place] [address] PCP - General Internal Medicine 04/30/14 Hima Fam FNP [address] [place] [address] Nurse Practitioner Family Medicine 08/01/23 documented as of this encounter
== END 2024-10-13 11:08 | disposition home or self-care (01) ==
PROVIDERS: PCP Internal Medicine; Visit Provider Nurse Practitioner Family
DX: J45.909 Unspecified asthma, uncomplicated (principal); R59.0 Localized enlarged lymph nodes; F17.200 Nicotine dependence, unspecified, uncomplicated
CPT/HCPCS: 99214

== ENCOUNTER → 2024-10-13 10:30 | Outpatient (BNVA) | payer MEDICAID, SELFPAY | PROVIDERS: PCP Internal Medicine; Visit Provider Nurse Practitioner Family | DX: J45.909 Unspecified asthma, uncomplicated (principal); R59.0 Localized enlarged lymph nodes; F17.210 Nicotine dependence, cigarettes, uncomplicated | CPT/HCPCS: 99212 ==

== ENCOUNTER 2024-10-14 11:30 | Outpatient (AMB) | payer MEDICAID, SELFPAY ==
--- NOTE | 2024-10-14 11:34 | MHC.OFFVIS ---
Vital Signs 10/14/24 11:41 Height 5 ft 6 in Weight 218 lb 4.122 oz BMI 35.2 BP 160/94 H Blood Pressure Location Lt brachial Position Sitting Pulse 90 Pulse Source Pulse Oximeter Pulse Oximetry (%) 98 Oxygen Delivery Method Room Air Intake Visit Reasons: Euflexxa Intake Note: Patient presents for Euflexxa. Polishing Machine Operator Required: Yes Polishing Machine Operator Language: Topline Beading Machine Tender Services: Polishing Machine Operator Present Polishing Machine Operator Name: Ganga [id number] Information Interpreted: non-clinical & clinical Allergies Penicillins Allergy (Mild, Verified 10/14/24 11:40) VAGINAL FUNGUS INFECTION lisinopril [LISINOPRIL] Allergy (Unknown, Verified 10/14/24 11:40) COUGH verapamil Allergy (Unknown, Verified 10/14/24 11:40) unknown Medication List - Last Reconciled 10/14/24 by Brigid West MD albuterol sulfate 90 mcg/actuation (Ventolin HFA) 2 puffs PO Q4H PRN amlodipine 10 mg PO DAILY baclofen 5 mg PO BEDTIME beclomethasone dipropionate 40 mcg/actuation (Qvar RediHaler) 2 inhalations inhalation BID blood pressure test kit-large As directed cholecalciferol (vitamin D3) (Vitamin D3) 50 mcg PO DAILY citalopram 20 mg PO DAILY clonazepam 1 mg PO TID PRN dexlansoprazole (Dexilant) 60 mg PO DAILY 90 days estradiol 0.01%(0.1mg/gram) 1 g vaginal 2XW fluticasone furoate 100 mcg/actuation (Arnuity Ellipta) 1 inh inhalation DAILY fluticasone furoate-vilanterol 200-25 mcg/dose (Breo Ellipta) 1 inh inhalation DAILY fluticasone propionate 50 mcg/actuation 1 spray intranasal DAILY lidocaine 5% patches topical loratadine 10 mg PO DAILY losartan 100 mg PO DAILY metronidazole 500 mg PO BID 7 days minoxidil 2.5 mg PO QAM nicotine (polacrilex) 2 mg buccal Q2H sennosides (senna) 1-2 tabs qhs orally bedtime; 30 days tramadol 100 mg PO TID PRN 30 days valacyclovir 500 mg PO BID PRN zolpidem 10 mg PO BEDTIME PRN HPI Comments Details: Patient is a 53 y.o. female depression, hypertension who is here today for follow up of polyarticular osteoarthritis and fibromyalgia Interval History: Patient last seen 09/12/24 with me. At that time patient was complaining of widespread joint pain involving back, knees, shoulders and hands. There was no evidence of inflammatory disease or autoimmune disease. Tried baclofen this did not help Unable to get tramadol due to insurance issues Here today for bilateral knee Euflexxa Rheumatologic History: Patient established care with Rheumatology 01/30/2022 Fibromyalgia and polyarticular osteoarthritis She has tried and failed Lyrica, gabapentin cymbalta, amitriptyline, and her insurance did not approve Savella. She estimates that she gets 6 hours of sleep at night and is taking ambien. Current Rheumatology Medication(s): Tramadol 100 mg p.o. b.i.d. p.r.n. Baclofen 5 mg at night PFSH Medical History Bilateral primary osteoarthritis of knee Gallstone pancreatitis Palpitations Fibromyalgia Depression Glaucoma HTN (hypertension) Surgical History H/O colonoscopy History of tubal ligation Hx of carpal tunnel repair Hx of cholecystectomy Hx of knee surgery Family History Father Kidney disease Mother CVD (cardiovascular disease) Colon cancer Social History Alcohol intake: never Patient Tobacco Use Status: Current everyday Tobacco user Cigarette Packs Per Day: 0.5 Cigarettes Per Day: 10 Years Smoked: 30 Female Reproductive History Menstrual Age of Menarche: 9 Review of Systems Const Details: Review of Systems Constitutional: Denies fever, chills, weight loss ENT: Denies vision changes, eye pain or eye redness, dental caries, dry mouth GI: Denies nausea, vomiting, diarrhea, abdominal pain, change in BM Pulm: Denies SOB, PRASAD, hemoptysis, wheezing Cards: Denies chest pain, palpitations Skin: Denies Raynaud's, rash, nail changes, photosensitivity, [employer]: Denies headaches, weakness, paresthesias, recurrent falls MSK: as per HPI All other systems reviewed and are unremarkable except noted above Physical Exam Vital Signs: Last Vital Signs Pulse 90 10/14/24 11:41 BP 160/94 H 10/14/24 11:41 Pulse Ox 98 10/14/24 11:41 Oxygen Delivery Method Room Air 10/14/24 11:41 BMI result Body Mass Index 35.2 Vital signs reviewed Physical Examination CONSTITUITIONAL Patient alert and cooperative. Well appearing. Difficulty rising from chair likely due to pain CHEST/RESPIRATORY SYSTEM Normal respiratory effort and able to speak in complete sentences. ?Clear to auscultation bilaterally. ?No crackles, rales, rhonchi, wheezes heard. CARDIAC SYSTEM Regular rate and rhythm. ?S1 and S2 heard no murmurs. ?Radial pulses intact bilaterally MSK Hands: ?Good religion teacher strength bilaterally. No deformities noted. ?No synovitis noted to the MCPs, PIPs or DIPs. ?No tenderness to palpation of these joints. Wrists: ?Full range of motion at the wrists without pain. ?No tenderness to palpation or synovitis noted to the wrists. Elbows: Full range of motion without pain. No tenderness, weakness, swelling, increased warmth or erythema. Shoulders: Decreased range of motion secondary to pain/muscle spasm in her trapezius. No tenderness, weakness, swelling, increased warmth or erythema. Hip bursa: Bilateral Tenderness to palpation Knees: ?Full range of motion. ?No tenderness, swelling, increased warmth or erythema.? Bilateral crepitations Ankles: Full range of motion. ?No tenderness, swelling, increased warmth or erythema.? Feet: ?Negative squeeze test. ?No tenderness to palpation or swelling of the MTPs. Tender points:? Tenderness to palpation of the bilateral trapezius, supraspinatus, greater trochanters, anterior costochondral junctions, bilateral gluteal areas, bilateral suboccipital muscle insertions. Patient is exquisitely tender to palpation of all of the paraspinal muscles as well SKIN Skin intact without rashes. Office Procedures AMB Joint Injection/Aspiration Joint Injection/Aspiration Details: Procedure was explained to the patient and consent was obtained. ? The area of interest was identified and confirmed with patient. ?This was subsequently cleaned with chlorhexidine x3. ? The area was then anesthetized using ethyl chloride spray. 2 cc Euflexxa was injected without issue. ?Minimal to no bleeding. ?Patient tolerated procedure. Primary Site: right knee Prep: site was prepped using aseptic technique and ethochloride spray was applied Injected: other Approach Used: anterior Procedure: The patient tolerated the procedure well Coding 61801 - Large joint Procedure code (CPT) selection complete AMB Joint Injection/Aspiration Joint Injection/Aspiration Details: Procedure was explained to the patient and consent was obtained. ? The area of interest was identified and confirmed with patient. ?This was subsequently cleaned with chlorhexidine x3. ? The area was then anesthetized using ethyl chloride spray. 2 cc Euflexxa was injected without issue. ?Minimal to no bleeding. ?Patient tolerated procedure. Primary Site: left knee Prep: site was prepped using aseptic technique and ethochloride spray was applied Injected: other Approach Used: anterior Procedure: The patient tolerated the procedure well Coding 25712 - Large joint Procedure code (CPT) selection complete Office Meds Euflexxa 10 mg/mL (mw 2.4-3.6 million) intra-articular syringe Performing Provider: Brigid West MD Performing Location: [facility] Rheumatology Administered by: Brigid West MD on 10/14/24 12:22 Dose Route Admin Location Dispensed Lot Number Expiration Date [facility] Security Shift Manager 20 mg intra-articular Right knee 2 mL [id number] 08/23/25 [address]-8 [employer] Euflexxa 10 mg/mL (mw 2.4-3.6 million) intra-articular syringe Performing Provider: Brigid West MD Performing Location: [facility] Rheumatology Administered by: Brigid West MD on 10/14/24 12:22 Dose Route Admin Location Dispensed Lot Number Expiration Date [place] Security Shift Manager 20 mg intra-articular 2 mL [id number] 08/23/25 [address]-8 [employer] Results Reviewed Results Reviewed: XR Bilateral Knees 09/2024 FINDINGS (Right): There is mild loss of medial and patellofemoral compartment joint space. There is no visible acute fracture or dislocation. There is anterior superior patellar enthesophyte. No joint effusion seen FINDINGS (Left): On AP bilateral knee standing there is loss of medial and lateral compartment joint spaces in both knees. There is loss of lateral femoral compartment joint space with anterior superior an lateral patellar enthesophytes. No visible acute fracture, dislocation or subluxation seen. No loose bodies or soft tissue swelling. Assessment & Plan Assessment & Plan (1) Bilateral primary osteoarthritis of knee: Code(s): M17.0 - Bilateral primary osteoarthritis of knee Category: Medical Plan: #Bilateral Knee OA Patient is a 53-year-old female with bilateral knee OA. Previously failed topical diclofenac and physical therapy. Here today for her 1st Euflexxa injections Plan - s/p 1st dose Euflexxa - RTC 1 week for 2nd dose (2) Fibromyalgia: Code(s): M79.7 - Fibromyalgia Category: Medical Plan: #Fibromyalgia Patient with fibromyalgia but continues to have widespread pain. Has tried Lyrica, gabapentin, Cymbalta, amitriptyline and her insurance did not approve Savella. Now has also failed baclofen. Discussed at length with patient about fibromyalgia and the chronicity of the disease. Plan - Stop baclofen - Tramadol 50mg tid prn - Daily stretches Plan I spent 20 minutes reviewing the record and labs, seeing the patient, discussing the treatment plan and documenting in the medical record ? Orders: Orders AMB Joint Injection/Aspiration Today M17.0 - Bilateral primary osteoarthritis of knee, M79.7 - Fibromyalgia AMB Joint Injection/Aspiration Today M17.0 - Bilateral primary osteoarthritis of knee Medications: New Euflexxa (sodium hyaluronate (viscosup)) 20 mg (2 mL) intra-articular ONCE 2 mL 0RF NS M17.0 - Bilateral primary osteoarthritis of knee, M79.7 - Fibromyalgia Euflexxa (sodium hyaluronate (viscosup)) 20 mg (2 mL) intra-articular ONCE 2 mL 0RF NS M17.0 - Bilateral primary osteoarthritis of knee Changed From tramadol 100 mg PO TID 30 days PRN 90 tabs 3RF pain M17.0 - Bilateral primary osteoarthritis of knee, M79.7 - Fibromyalgia To tramadol 50 mg PO TID 30 days PRN 60 tabs 3RF pain M17.0 - Bilateral primary osteoarthritis of knee, M79.7 - Fibromyalgia Discontinued baclofen Discontinued Reason: Doctor's Order 5 mg PO BEDTIME 90 tabs 0RF M79.7 - Fibromyalgia Coding Level of Care Code Est Pt Level 3 (69050) Diagnoses Bilateral primary osteoarthritis of knee M17.0 Fibromyalgia M79.7 CPT Codes Coding - 34237 Large joint: 27939 - Large joint ([id number]) Coding - 37970 Large joint: 35099 - Large joint ([id number])
[2024-10-14 11:41] VITALS: BP 160/94; PULSE 90; O2SAT 98; BMI 35.2
--- OUTSIDE RECORDS SUMMARY | 2024-10-14 12:26 | XMS_ITS | Encounter Summary ---
Author Organization [employer] Address [address] [place] [address] [address], [place] [address] Care Team Providers Care Service Electrician Name Role Phone Mychal Fields MD Primary Care Provide r Hima Fam Unavailable Unavailable Encounter Details Date Type Department Care Team (Late st Contact Info) Description 12/04/2022 Telephone [facility] [address] [place] [address] [phone] Mychal Fields MD [address] [place], [place] [phone] Social History Tobacco Use Types Packs/Day Years Used Date Smoking Tobacco: Never Assessed Comments Unknown Sex and Gender Information Value Date Recorded Sex Assigned at Female 07/10/2022 10:15 AM EDT Legal Sex Female 10:15 AM EDT Gender Identity Choose not to disclose 10:15 AM EDT Sexual Orientation Choose not to disclose 2021 10:15 AM EDT documented as of this encounter Plan of Treatment Upcoming Encounters Date Type Department Care Team (Late st Contact Info) Description 12/23/2024 1:00 PM EDT Office Visit [facility] [address] [place] [address] [phone] Mychal Fields MD [address] [place], [place] [phone] documented as of this encounter Visit Diagnoses Not on filedocumented in this encounter Additional Health Concerns Assessment Noted Time PHQ-9 Depression Total Score: 7 10/09/19 23 4:00 PM EST documented as of this encounter Care Teams Service Electrician Relationship Specialty Start Date End Date Mychal Fields MD [address] [place] [address] PCP - General Internal Medicine 04/30/14 Hima Fam FNP [address] [place] [address] Nurse Practitioner Family Medicine 08/01/23 documented as of this encounter
--- OUTSIDE RECORDS SUMMARY | 2024-10-14 12:26 | XMS_ITS | Encounter Summary ---
Author Organization [employer] Address [address] [place] [address] [address] [place] [address] Care Team Providers Care Net Applications Developer Name Role Phone Mychal Fields MD Primary Care Provide r Hima Fam Unavailable Unavailable Encounter Details Date Type Department Care Team (Late st Contact Info) Description 12/05/2022 Orders Only [facility] [address] [place], [place] [phone] Veda Isabel LPN Social History Tobacco Use [...] Description 12/23/2024 1:00 PM EDT Office Visit [facility] [address] [place], [place] [phone] Mychal Fields MD [address] [place], [place] [phone] documented as of this encounter Visit Diagnoses Not on filedocumented in this encounter Additional Health Concerns Assessment Noted Time PHQ-9 Depression Total Score: 7 10/09/19 23 4:00 PM EST documented as of this encounter Care Teams Net Applications Developer Relationship Specialty Start Date End Date Mychal Fields MD [address] [place] [address] PCP - General Internal Medicine 04/30/14 Hima Fam FNP [address] [place] [address] Nurse Practitioner Family Medicine 08/01/23 documented as of this encounter
--- OUTSIDE RECORDS SUMMARY | 2024-10-14 12:26 | XMS_ITS | Encounter Summary ---
Author Organization [employer] Address [address] [facility] [address] [place] [address] Care Team Providers Care Toolmaker Grade Three Name Role Phone Mychal Fields MD Primary [...] Description 12/23/2024 1:00 PM EDT Office Visit [facility] [address] [place] [address] Mychal Fields MD [address] [place] [address] documented as of this encounter Visit Diagnoses Not on filedocumented in this encounter Additional Health Concerns Assessment Noted Time PHQ-9 Depression Total Score: 6 09/16/19 25 10:06 AM EST documented as of this encounter Care Teams Toolmaker Grade Three Relationship Specialty Start Date End Date Mychal Fields MD [address] [place] [phone] PCP - General Internal Medicine 04/30/14 Hima Fam FNP [address] [place] [phone] Nurse Practitioner Family Medicine 08/01/23 documented as of this encounter
--- OUTSIDE RECORDS SUMMARY | 2024-10-14 12:26 | XMS_ITS | Encounter Summary ---
Author Organization [employer] Address [address] [place] [address] [address] [place] [address] Care Team Providers Care Photovoltaic Panel Installer Name Role Phone Mychal Fields MD Primary Care Provide r Hima Fam Unavailable Unavailable Reason for Visit * Reason Onset Date Comments Appointment Request 12/04/2022 Encounter Details Date Type Department Care Team ([facility] Contact Info) Description 12/04/2022 Telephone [facility] [address] [place] [address] Mychal Fields MD [address] [place] [address] Appointment Request Social History Tobacco Use Types [...] ff/u Bp ) Please contact pt at [phone] * Telephone Encounter - Wesley Collins - 12/04/2022 2:02 PM EDT Tc from pt requesting to r/s appt on 10/19/22 ( ff/u Bp ) Please contact pt at [phone] documented in this encounter Plan of Treatment Upcoming Encounters Date Type Department Care Team (Late st Contact Info) Description 12/23/2024 1:00 PM EDT Office Visit [facility] [address] [facility] [place] [address] Mychal Fields MD [address] [place] [address] documented as of this encounter Visit Diagnoses Not on filedocumented in this encounter Additional Health Concerns Assessment Noted Time PHQ-9 Depression Total Score: 7 10/09/19 23 4:00 PM EST documented as of this encounter Care Teams Photovoltaic Panel Installer Relationship Specialty Start Date End Date Mychal Fields MD Jose Daniel [facility] [place] [address] PCP - General Internal Medicine 04/30/14 Hima Fam FNP [address] [place] [address] Nurse Practitioner Family Medicine 08/01/23 documented as of this encounter
--- OUTSIDE RECORDS SUMMARY | 2024-10-14 12:26 | XMS_ITS | Encounter Summary ---
Author Organization [employer] Address [address] [place] [address] [address] [place] [address] Care Team Providers Care Defence Force Senior Officer Name Role Phone Mychal Fields MD Primary Care Provide r Hima Fam Unavailable Unavailable Reason for Visit * Reason Onset Date Comments Appointment Request 09/16/2024 Encounter Details Date Type Department Care Team ([facility] Contact Info) Description 09/16/2024 Telephone [facility] [address] [place] [address] Mychal Fields MD [address] [place] [address] Appointment Request Social History Tobacco Use Types [...] schedule an follow up for her with [facility] given that they were awaiting a CT scan and some blood work before scheduling a follow up with . Told pt that she can check in the lab if they have anything in the system that is sill pending to be collected, I will also be faxing the CT Biopsy to [facility] because pt did get it done but at [facility]. LB documented in this encounter Plan of Treatment Upcoming Encounters Date Type Department Care Team (Late st Contact Info) Description 12/23/2024 1:00 PM EDT Office Visit [facility] [address] [place] [address] Mychal Fields MD [address] [place] [address] documented as of this encounter Visit Diagnoses Not on filedocumented in this encounter Additional Health Concerns Assessment Noted Time PHQ-9 Depression Total Score: 6 09/16/19 25 10:06 AM EST documented as of this encounter Care Teams Defence Force Senior Officer Relationship Specialty Start Date End Date Mychal Fields MD [address] [place] [address] PCP - General Internal Medicine 04/30/14 Hima Fam FNP [address] [place] [address] Nurse Practitioner Family Medicine 08/01/23 documented as of this encounter
--- OUTSIDE RECORDS SUMMARY | 2024-10-14 12:26 | XMS_ITS | Data Portability ---
Author Organization [place] - [facility], Allergy Address [address] [address] Care Team Providers Care Mds Nurse Name Role Phone GIACOMO MARX Primary Care Provider GIACOMO MARX Referring Provider Assessment Encounter Date Assessment Date Assessment LastModified by Organization Details LastModified Time 04/25/2024 04/25/2024 53-year-old female presents following DL with biopsy. Pathology was reviewed to be benign. 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 Overall reassurance was provided. follow up as scheduled. [email or web address] Not available 04/28/2024 15:04:21 Plan of Treatment [...] observ ation record ed. [email or web address] [facility] [address] [facility] [address], [place], [address], 02/25/2024 09:12:35 03/31/20 24 03/31/2024 US, neck, soft tissu e No observ [email or web address] [address] [facility], [place], [address], 04/11/2024 16:05:21 04/28/20 24 04/10/2024 clini bertha photo * No observ ation record ed. [email or web address] Not Available 17:00:02 04/29/20 24 05/08/2023 imagi ng/di agnos tic resul t No observ ation record ed. [email or web address] Not Available 21:42:28 Result Notes None recorded. Problems Name Problem SNOMED Code Status Onset Date Resolution Date Notes Provider Name and Address Organization Details Recorded Time Thyroid nodule 075592281 Active 2023 MADHU REYES MD 100 [facility], [place], [address] , [place] - [facility] 4 16:36:38 Hypertrop hy of tonsils AND adenoids 95696128 Active 2023 MADHU REYES MD 100 [facility] 100, [place], [address] , [place] - [facility] 4 16:36:47 Hypertrop hy of lingual tonsil 642932825 Active 2023 MADHU REYES MD 100 [facility],[place] [address], [place], [address] , [place] - [facility] 4 16:36:52 Non-toxic uninodula r goiter 094059791 Active 2023 Nontoxic single thyroid nodule; Note: Date Diagnosed : 01/18/2024 11:58 AM (E04.1) Not Available [facility] 4 02:45:01 Mass of neck 409714373 Active 2023 Localized swelling, mass and lump, neck; Note: Date Diagnosed : 11/08/2023 11:56 AM (R22.1) Not Available [facility] 4 02:45:02 Neck swelling 785987582 Active 2023 Localized swelling, mass and lump, neck; Note: Date Diagnosed : 11/08/2023 11:56 AM (R22.1) Not Available [facility] 4 02:45:02 Neck pain 76492144 Active 2023 Cervicalg ia; Note: Date Diagnosed : 11/08/2023 11:56 AM (M54.2) Not Available [facility] 4 02:45:02 Dysphagia 98367468 Active 2023 Dysphagia , unspecifi ed; Note: Date Diagnosed : 11/08/2023 11:56 AM (R13.10) Not Available [facility] 4 02:45:05 Obstructi ve sleep apnea of adult 23953288935 03 Active 2023 MADHU REYES MD 100 [facility] [address], [place], [address] , [place] - [facility] 4 08:48:15 Seasonal allergic rhinitis 906082995 Active 2023 MADHU REYES MD 100 [facility] [address], [place], [address] , [place] - [facility] 4 08:52:06 Allergic rhinitis 89153633 Active 2023 MADHU REYES MD 100 [facility],[place] [address], [place], [address] , [place] - [facility] 4 08:52:17 Non-aller gic rhinitis 08627371148 1 Active 2023 MADHU REYES MD [address] [facility],[place] [address], [place], [address] , [facility] - [facility] 4 08:52:17 Problem Notes None recorded. Procedures Surgical History Date Name Laterality Status Provider Name and Address Organization Details Recorded Time 4 LARYNGOSCOPY, DIRECT OPERATIVE WITH OPERATING MICROSCOPE OR TELESCOPE WITH BIOPSY (SURG) completed Paulo Faria [place] - [facility] 04/14/2024 09:38:40 4 FFL_RE completed MADHU REYES MD [address] [facility],[place] [address], [place], [address], [facility] - [facility] 03/18/2024 17:33:49 Imaging Results Imaging Date Name Status LastModified by Organiz ation Details LastModified Time 02/19/2024 US, thyroid completed [email or web address] [facility] [address] [facility] [address], [place], [address], 02/25/2024 09:12:35 03/31/2024 US, neck, soft tissue completed [facility] (Imaging) [address] [place], [address], 04/11/2024 16:05:21 04/10/2024 clinical photo* completed [email or web address] [...] % eye drops active Medicatio n ID: [id number] Br and Name: latanopro st Send Method: E-Prescri bed Subs Allowed: subs OK Specia l Instructi on: PUT 1 DROP INTO BOTH EYES AT BEDTIME M edication GenericNa me: latanopro st Not Available Not Available Not Available terconazol e 0.4 % vaginal cream active Medicatio n ID: [id number] Br and Name: terconazo le Send Method: [...] 8.6 mg tablet active Medicatio n ID: [id number] Br and Name: senna Sen d Method: [...] 500 mg tablet active Medicatio n ID: [id number] Br and Name: valacyclo vir Send Method: [...] 50 mg tablet active Medicatio n ID: [id number] Br and Name: tramadol Send Method: E-Prescri bed Subs Allowed: subs OK Specia l Instructi on: TAKE 1 TABLET BY MOUTH EVERY 6 HOURS NEEDED FOR PAIN Medi cationGen ericName: tramadol Not Available Not Available Not Available ketorolac 0.5 % eye drops active Medicatio n ID: [id number] Br and Name: ketorolac Send Method: E-Prescri [...] 20 mg tablet active Medicatio n ID: [id number] Br and Name: dicyclomi ne Send Method: [...] 10 mg tablet active Medicatio n ID: [id number] Br and Name: buspirone Send Method: E-Prescri [...] 100 mg capsule active Medicatio n ID: [id number] Br and Name: gabapenti n Send Method: [...] 1 mg tablet active Medicatio n ID: [id number] Br and Name: varenicli ne Send Method: E-Prescri bed Subs Allowed: subs OK Specia l Instructi on: TAKE 1 TABLET BY MOUTH TWICE A DAY WITH GLASS OF WATER AFTER MEALS Med icationGe nericName : varenicli ne Not Available Not Available Not Available diclofenac 1 % topical gel active Medicatio n ID: [id number] Br and Name: diclofena c sodium Se [...] capsule,de layed release active Medicatio n ID: [id number] Br and Name: Creon Sen d Method: E-Prescri bed Subs Allowed: subs OK Specia l Instructi on: TAKE 1 CAPSULE BY MOUTH 4 TIMES A DAY. ADMINISTE R WITH MEALS AND OR SNACKS Me dicationG enericNam e: Creon Not Available Not Available Not Available blood pressure test kit-large cuff active Medicatio n ID: [id number] Br and Name: blood pressure test kit-large Send Method: E-Prescri bed Subs Allowed: subs OK Specia l Instructi on: USE TO CHECK BLOOD PRESSURE ONCE DAILY IN THE MORNING M edication GenericNa me: blood pressure test kit-large Not Available Not Available Not Available Dexilant 60 mg capsule, delayed release active Medicatio n ID: [id number] Br and Name: Dexilant Send Method: E-Prescri [...] Updated DateTime 03/18/2024 160.02 cm 36.8 kg/m2 67210.21 g Kodi Soni [place] - [facility] 03/18/2024 16:16:00 Date Recorded Body height Body mass index (BMI) Body weight Provider Name and Address Organization Details Last Updated DateTime 04/25/2024 160.02 cm 36.8 kg/m2 01368.21 g Janeth Castro [facility] 04/25/2024 15:19:15 Date Recorded Body height Body mass index (BMI) Body weight Provider Name and Address Organization Details Last Updated DateTime 07/30/2024 160.02 cm 36.8 kg/m2 37570.21 g Marley Santamaria [facility] 07/30/2024 08:31:21 Social History None recorded. Functional [...] Note 6941 MADHU REYES MD [facility] [address] [address] 03/18/2024 15:41:26 03/18/2024 17:01:09 Thyroid nodule 138175189 E04.1 I recommend a US guided FNA of the thyroid nodule. She will f/u to review. Hypertroph y of tonsils AND adenoids 70115146 J35.3 hypertroph y of Waldeyer's ring. lingual tonsil biopsy is less morbid to evaluate for lymphoma. see below. Hypertroph y of lingual tonsil 864962129 J35.3 I recommend direct laryngosco py with [...] We will schedule surgery mutually convenient time. 23405 MADHU REYES MD [facility] [address] [place] [address] 04/25/2024 15:12:06 04/30/2024 07:57:22 Hypertrophy of lingual tonsil 089401277 J35.3 Hypertroph y of tonsils AND adenoids 28800157 J35.3 Neck pain 62192772 M54.2 25501 MADHU REYES MD [facility] 100 [facility] [place] [address] 07/30/2024 08:28:17 07/30/2024 08:55:15 Hypertrophy of lingual tonsil 967806419 J35.3 Biopsies negative. Gave reassuranc e. Continue observatio n. Deferred laryngosoc py today. Obstructiv e sleep apnea of adult 8192115000 103 G47.33 Agree with starting CPAP which is in process. Thyroid nodule 269287712 E04.1 Recommend repeat thyroid US at [facility] after next visit in 6 months. Seasonal a llergic rhinitis 262060485 J30.2 Exam and history are consistent with allergic rhinitis. We will obtain allergy testing to clarify the extent of allergy with f/u to review. Allergic rhinitis 648693 04 J30.9 Non-allergic rhinitis 31 86227667 01 J31.0 Health Concerns Section Related Observation LastModified by Organization Detai ls LastModified Time None Recorded Concern Status LastModified by Organization Details LastModified Time None Recorded Advance Directives Directive None Recorded Payers Encounter Date Sequence Insurance Name Policy Number Policy Tompkins Covered Member ID Tompkins Member ID Guarantor Name 03/18/2024 1 [place] [facility] Rodas [id number] Elaine Rodas 04/25/2024 1 [place] [facility] Elaine Rodas [id number] Elaine Rodas 07/30/2024 1 [place] [facility] Elaine Rodas [id number] Elaine Rodas Notes Date Note Type Note [...] by her other doctors. MADHU REYES MD [address] [place] [address], [address], [place] - [facility] 03/18/2024 17:45:03 04/25/2024 text/html 53-year-old fema nidia presents following DL with biopsy. She continues to have mild sore throat but no bleeding. Biopsy was done due to hypertrophy of Waldeyer's ring on imaging. MADHU REYES MD [address] [place] [address],[address], [address], [place] - [facility] 04/29/2024 10:01:40 07/30/2024 text/html Hx of hypertroph [...] with marginal benefit. MADHU REYES MD [address] [place] [address], [place], [address], [place] [facility] 07/30/2024 08:52:32 OBGyn Episode No OBEpisode recorded.
--- OUTSIDE RECORDS SUMMARY | 2024-10-14 12:26 | XMS_ITS | Encounter Summary ---
Author Organization [employer] Address [address] [place] [address] [address] [address] Care Team Providers Care Hand Icer Name Role Phone Mychal Fields MD Primary Care Provide r Hima Fam Unavailable Unavailable Reason for Visit * Reason Comments Med Change Request Encounter Details Date Type Department Care Team (Late st Contact Info) Description 10/19/2022 Refill [facility] MEDICINE [address] [place] [address] Mychal Fields MD [address] [place] [address] [phone] Fibromyalgia Social History Tobacco Use Types Packs/Day [...] Description 12/23/2024 1:00 PM EDT Office Visit [facility] MEDICINE [address] [place] [address] [phone] Mychal Fields MD [address] [place] [address] [phone] documented as of this encounter Visit Diagnoses Diagnosis Fibromyalgia Unspecified myalgia and myositis documented in this encounter Additional Health Concerns Assessment Noted Time PHQ-9 Depression Total Score: 7 10/09/19 23 4:00 PM EST documented as of this encounter Care Teams Hand Icer Relationship Specialty Start Date End Date Mychal Fields MD [address] [place] [address] PCP - General Internal Medicine 04/30/14 Hima Fam FNP [address] [place] [address] Nurse Practitioner Family Medicine 08/01/23 documented as of this encounter
--- OUTSIDE RECORDS SUMMARY | 2024-10-14 12:26 | XMS_ITS | Encounter Summary ---
Author Organization [employer] Address [address] [place] [address] 7[address] [place] [address] Care Team Providers Care Dough Molder Name Role Phone Mychal Fields MD Primary Care Provide r Hima Fam Unavailable Unavailable Reason for Visit * Reason Comments Hypertension Blood in Urine Encounter Details Date Type Department Care Team ([facility] st Contact Info) Description 09/16/2024 10:00 AM EST Office Visit [facility] MEDICINE [address] [place] [address] Mychal Fields MD [address] [place] [address] JERRI (obstructive sleep apnea) (Primary Dx); Abnormal [...] used to be under the care of family specialist who had been prescribing Baclofen Subacute cough Patient here with c/o persistent cough with not improving with albuterol and associated chest and back discomfort since 06/19/24. Followed by pulmonology for abnormal CT chest. Pt was evaluated by Dr. Wynn at our [facility] who recommended to check D dimer [...] was evaluated by Dr. Wynn at our [facility] who recommended to check D dimer [...] used to be under the care of family specialist who had been prescribing Baclofen * [...] Note - Mychal Morris MD - 09/16/2024 10:16 AM EST Associated [...] Description 12/23/2024 1:00 PM EDT Office Visit [facility] [place] [address] Mychal Fields MD [address] [place] [address] documented as of this encounter Procedures Procedure [...] EST Narrative 09/24/2024 10:02 AM EST ? [facility] ?[address] ?[place] [address] ?XRay Report ? Signed ? Patient: Clark,Elaine ?MR#: [id number] ? : 1970 ?Acct:[id number] ? Age/Sex: 53 / F ?ADM Date: 01/13/25 ? Loc: HO.XRAY ? Attending Dr: Syed Coreas MD ? Ordering Physician: Mychal Long MD ?? Date of Service: 09/22/24 ?? Procedure(s): XR chest 2V ?? Accession Number(s): [id number] ? cc: Mychal Long MD ? EXAMINATION: [...] DD/ 1250 ? TD/TT: 09/22/24 1312 ? Recreation Attendant Supervisor: MSM ? Procedure Note Donnoel, Image - 09/24/2024 [place] [address] XRay Report Signed Patient: Elaine RodasMR#: [id number] : 1970Acct:[id number] Age/Sex: 53 / FADM Date: 09/22/24 Loc: [facility] Attending Dr: Syed Coreas MD Ordering Physician: Mychal Long MD Date of Service: 09/22/24 Procedure(s): XR chest 2V Accession Number(s): [id number] cc: Mychal Long MD EXAMINATION: XR CHEST [...] 09/24/24 0959 DD/ 1250 TD/TT: 09/22/24 1312 Recreation Attendant Supervisor: GARY us Mychal Morris MD IMG XR PROCEDURES Fin al Result * D Dimer High Sensitivity (09/16/2024 11:09 AM EST) D Dimer High Sensitivity 203 NG/ML [facility] Comment:D-DIMER HS REFERENCE RANGENote: Our assay reports D-Dimer Units (D- DU).The cut-off value for venous thromboembolic (VTE) disease is230 ng/mL. This value has a very high negative predictivevalue when the patient has a low to moderate clinicalprobability of VTE.The upper limit of normal is 243 ng/mL. Blood 09/16/2024 11:0 9 AM EST 09/16/2024 1:03 PM EST Mychal Morris MD LAB BLOOD ORDERABLES Final Result Performing Organization Address City/State/[facility] Co de Phone Number [facility] [address] [place] [address] [phone] documented in this encounter Visit Diagnoses [...] documented as of this encounter Care Teams Dough Molder Relationship Specialty Start Date End Date Mychal Fields MD [address] [place] [address] PCP - General Internal Medicine 04/30/14 Hima Fam FNP [address] [place] [address] Nurse Practitioner Family Medicine 08/01/23 documented as of this encounter
--- OUTSIDE RECORDS SUMMARY | 2024-10-14 12:27 | XMS_ITS | Encounter Summary ---
Author Organization [employer] Address [address] [facility] 7t [place] [address] Care Team Providers Care Integration Manager Name Role Phone Mychal Fields MD [...] Description 12/23/2024 1:00 PM EDT Office Visit [facility] MEDICINE 230 [place] [address] Mychal Fields MD 230 [place] [address] documented as of this encounter Visit Diagnoses Not on filedocumented in this encounter Additional Health Concerns Assessment Noted Time PHQ-9 Depression Total Score: 6 09/16/19 25 10:06 AM EST documented as of this encounter Care Teams Integration Manager Relationship Specialty Start Date End Date Mychal Fields MD [address] [place] [address] PCP - General Internal Medicine 04/30/14 Hima Fam FNP [address] [place] [address] Nurse Practitioner Family Medicine 08/01/23 documented as of this encounter
--- OUTSIDE RECORDS SUMMARY | 2024-10-14 12:27 | XMS_ITS | Encounter Summary ---
Author Organization [employer] Address [address] [place] [address] 7[address] [place] [address] Care Team Providers Care Retail Loan Originator Name Role Phone Mychal Fields MD Primary Care Provide r Hima Fam Unavailable Unavailable Reason for Visit * Reason Comments Med Refill Encounter Details Date Type Department Care Team (Late st Contact Info) Description 10/11/2024 Refill [facility] [address] [place] [address] Bette Wynn MD [address] [place] [address] Low vitamin D level Social History Tobacco [...] Description 12/23/2024 1:00 PM EDT Office Visit [facility] [address] [place] [address] Mychal Fields MD [address] [place] [address] documented as of this encounter Visit Diagnoses Diagnosis Low vitamin D level documented in this encounter Additional Health Concerns Assessment Noted Time PHQ-9 Depression Total Score: 6 09/16/19 25 10:06 AM EST documented as of this encounter Care Teams Retail Loan Originator Relationship Specialty Start Date End Date Mychal Fields MD [address] [place] [address] PCP - General Internal Medicine 04/30/14 Hima Fam FNP [address] [place] [address] Nurse Practitioner Family Medicine 08/01/23 documented as of this encounter
--- OUTSIDE RECORDS SUMMARY | 2024-10-14 12:27 | XMS_ITS | Encounter Summary ---
Author Organization [employer] Address [address] [place] [address] 7t [place] [address] Care Team Providers Care Erp Pm Name Role Phone Mychal Fields MD Primary Care Provide r Hima Fam Unavailable Unavailable Encounter Details Date Type Department Care Team (Late Contact Info) Description 06/11/2023 Orders Only [facility] [address] [place], [place] [phone] Veda Isabel LPN Social History Tobacco Use [...] Encounters Date Type Department Care Team (Late Contact Info) Description 12/23/2024 1:00 PM EDT Office Visit [facility] 230 [place], [place] [phone] Mychal Fields MD [address] [place], [place] [phone] documented as of this encounter Visit Diagnoses Not on filedocumented in this encounter Additional Health Concerns Assessment Noted Time PHQ-9 Depression Total Score: 0 05/10/20 23 10:38 AM EDT documented as of this encounter Care Teams Erp Pm Relationship Specialty Start Date End Date Mychal Fields MD [address] [place] [address] PCP - General Internal Medicine 04/30/14 Hima Fam FNP [address] [place] [address] Nurse Practitioner Family Medicine 08/01/23 documented as of this encounter
--- OUTSIDE RECORDS SUMMARY | 2024-10-14 12:27 | XMS_ITS | Encounter Summary ---
Author Organization [employer] Address [address] [place] [address] [address] [address] Care Team Providers Care Solder Technician Name Role Phone Mychal Fields MD Primary Care Provide r Hima Fam Unavailable Unavailable Encounter Details Date Type Department Care Team (Late st Contact Info) Description 04/24/2023 Orders Only [facility] MEDICINE [address] [place] [address] Zena Harley MD [address] [place] [address] [phone] Acquired clavicle deformity (Primary Dx) Social History [...] Description 12/23/2024 1:00 PM EDT Office Visit [facility] MEDICINE [address] [place] [address] [phone] Mychal Fields MD [address] [place] [address] [phone] Scheduled Orders Name Type Priority Associated Diagnoses [...] EDT Narrative 05/14/2023 4:45 PM EDT ? [facility] ?[address] ?[place] [address] ?XRay Report ? Signed ? Patient: Elaine Rodas ?MR#: [id number] ? : 1970 ?Acct:[id number] ? Age/Sex: 52 / F ?ADM Date: 05/14/23 ? Loc: HO.ED ? Attending Dr: ? Ordering Physician: Vee Castano NP ?? Date of Service: 05/14/23 ?? Procedure(s): XR chest 2V ?? Accession Number(s): [id number] ? cc: Mychal Long MD; Vee Castano [...] by Lydia Oneal MD in OV> ? 05/14/231641 ? DD/ 23 ? TD/TT: ? Wet Process Assistant Head Miller: SUJ ? Procedure Note Didiermateojacoboparrishmallory, Image - 05/14/[address] [address] XRay Report Signed Patient: Elaine RodasMR#: [id number] : 1970Acct:[id number] Age/Sex: 52 / FADM Date: 05/14/23 Loc: HO.ED Attending Dr: Ordering Physician: Vee Castano NP Date of Service: 05/14/23 Procedure(s): XR chest 2V Accession Number(s): [id number] cc: Mychal Long MD; Vee Castano NP [...] in OV> 05/14/23 1642 DD/ 1624 TD/TT: Wet Process Assistant Head Miller: DORITA [facility] External Provider IMG XR PROCEDURES Edited Result - Final * XR Foot 3+ Views Right (05/10/2023 11:44 AM EDT) Anatomical Region Laterality Modality Lower Extremities, Foot Right Radiogra phic Imaging 05/10/2023 11:4 4 AM EDT Narrative 05/10/2023 12:08 PM EDT ?[facility] ?[address] ?[place] [address] ?XRay Report ? Signed ? Patient: Clark,Elaine ?MR#: [id number] ? : 1970 ?Acct:[id number] ? Age/Sex: 52 / F ?ADM Date: 08/31/23 ? Loc: HO.HHCX ? Attending Dr: Mychal Long MD ? Ordering Physician: Mychal Long MD ?? Date of Service: 05/10/23 ?? Procedure(s): XR foot RT min 3V ?? Accession Number(s): [id number] ? cc: Mychal Long MD ? EXAMINATION: [...] 1205 ? DD/ 1144 ? TD/TT: ? Wet Process Assistant Head Miller: GR ? Procedure Note Yas Almodovar - 05/10/2023 [place] [address] XRay Report Signed Patient: Elaine RodasMR#: [id number] : 1970Acct:[id number] Age/Sex: 52 / FADM Date: 05/10/23 Loc: HO.HHCX Attending Dr: Mychal Long MD Ordering Physician: Mychal Long MD Date of Service: 05/10/23 Procedure(s): XR foot RT min 3V Accession Number(s): [id number] cc: Mychal Long MD EXAMINATION: XR FOOT, [...] signed by Rafat Tijerina MD in OV> 05/10/23 1205 DD/ 1144 TD/TT: Wet Process Assistant Head Miller: YULISSA us Mychal Morris MD IMG XR PROCEDURES Fin al Result * FL Esophagus Barium Swallow w/Air (05/08/2023 10:19 AM EDT) Anatomical Region Laterality Modality Head, Neck Radiographic Hilda ging 05/08/2023 10:1 9 AM EDT Narrative 05/08/2023 4:35 PM EDT ? [facility] ?[address] ?[place] [address] ? Fluoroscopy Report ? Signed ? Patient: Elaine Rodas ?MR#: [id number] ? : 1970 ?Acct:[id number] ? Age/Sex: 52 / F ?ADM Date: 05/08/23 ? Loc: HO.XRAY ? Attending Dr: Mychal Long MD ? Ordering Physician: Mychal Long MD ?? Date of Service: 05/08/23 ?? Procedure(s): FL barium swallow with air ?? Accession Number(s): [id number] ? cc: Mychal Long MD ? EXAMINATION: [...] 1632 ? DD/ 1019 ? TD/TT: ? Wet Process Assistant Head Miller: ? Procedure Note Nishi, Image - 05/08/[address] [address] Fluoroscopy Report Signed Patient: Elaine RodasMR#: [id number] : 1970Acct:[id number] Age/Sex: 52 / FADM Date: 05/08/23 Loc: CHAPARR[facility] Attending Dr: Mychal Long MD Ordering Physician: Mychal Long MD Date of Service: 05/08/23 Procedure(s): FL barium swallow with air Accession Number(s): [id number] cc: Mychal Long MD EXAMINATION: XR FLUOROSCOPY [...] in OV> 05/08/23 1632 DD/ 1019 TD/TT: Wet Process Assistant Head Miller: Mychal Morris MD IMG FLUOROSCOPY UBALDO HERNANDES Final Result documented in this encounter Visit Diagnoses Diagnosis 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 documented in this encounter Additional Health Concerns Assessment Noted Time PHQ-9 Depression Total Score: 8 02/09/20 23 11:04 AM EDT documented as of this encounter Care Teams Solder Technician Relationship Specialty Start Date End Date Mychal Fields MD [address] [place] [address] PCP - General Internal Medicine 04/30/14 Hima Fam FNP [address] [place] [address] Nurse Practitioner Family Medicine 08/01/23 documented as of this encounter
--- OUTSIDE RECORDS SUMMARY | 2024-10-14 12:27 | XMS_ITS | Encounter Summary ---
Author Organization [employer] Address [address] [place] [address] 7[address] [place] [address] Care Team Providers Care Consumer Loan Underwriter Name Role Phone Mychal Fields MD Primary Care Provide r Hima Fam Unavailable Unavailable Reason for Visit * Reason Comments Med Refill Encounter Details Date Type Department Care Team (Late st Contact Info) Description 10/06/2024 Refill [facility] MED & PEDS [address] [place] [address] Mychal Fields MD [address] [place] [address] Anxiety and depression Social History Tobacco Use [...] 1:00 PM EDT Office Visit [facility] MEDICINE [address] [place] [address] Mychal Fields MD [address] [place] [address] documented as of this encounter Visit Diagnoses Diagnosis Anxiety and depression documented in this encounter Additional Health Concerns Assessment Noted Time PHQ-9 Depression Total Score: 6 09/16/19 25 10:06 AM EST documented as of this encounter Care Teams Consumer Loan Underwriter Relationship Specialty Start Date End Date Mychal Fields MD [address] [place] [address] PCP - General Internal Medicine 04/30/14 Hima Fam FNP [address] [place] [address] Nurse Practitioner Family Medicine 08/01/23 documented as of this encounter
--- OUTSIDE RECORDS SUMMARY | 2024-10-14 12:27 | XMS_ITS | Encounter Summary ---
Author Organization [employer] Address [address] [place] [address] 7 [place] [address] Care Team Providers Care Rack Loader Name Role Phone Mychal Fields MD Primary Care Provide r Hima Fam Unavailable Unavailable Reason for Visit * Reason Onset Date Comments Bhavana Recall 10/03/2024 Encounter Details Date Type Department Care Team ([facility] Contact Info) Description 10/03/2024 Telephone [facility] MEDICINE [address] [place] [address] Mychal Fields MD [address] [place] [address] December Recall Social History Tobacco Use Types [...] [place] - 10/03/2024 3:37 PM EST T/C- Replanter Left Voice Mail to return call to schedule an appointment. Recall letter sent. Appointment: Office Visit Note: HTN Month: December With: Annalisa Please schedule appointment if Patient calls Back. documented in this encounter Plan of Treatment Upcoming Encounters Date Type Department Care Team (Late st Contact Info) Description 12/23/2024 1:00 PM EDT Office Visit [facility] MEDICINE [address] [place] [address] Mychal Fields MD [address] [place] [address] documented as of this encounter Visit Diagnoses Not on filedocumented in this encounter Additional Health Concerns Assessment Noted Time PHQ-9 Depression Total Score: 6 09/16/19 25 10:06 AM EST documented as of this encounter Care Teams Rack Loader Relationship Specialty Start Date End Date Mychal Fields MD [address] [place] [address] PCP - General Internal Medicine 04/30/14 Hima Fam FNP [address] [place] [address] Nurse Practitioner Family Medicine 08/01/23 documented as of this encounter
--- OUTSIDE RECORDS SUMMARY | 2024-10-14 12:27 | XMS_ITS | Encounter Summary ---
Author Organization [employer] Address [address] [place] [address] 7 [place] [address] Care Team Providers Care Rail Signal Mechanic Name Role Phone Mychal Fields MD Primary Care Provide r Hima Fam Unavailable Unavailable Reason for Visit * Reason Comments Med Refill Encounter Details Date Type Department Care Team ([facility] st Contact Info) Description 10/11/2024 Refill [facility] MEDICINE [address] [place] [address] Mychal Fields MD [address] [place], [place] [phone] Social History Tobacco Use Types Packs/Day Years [...] Description 12/23/2024 1:00 PM EDT Office Visit [facility] MEDICINE [address] [place] [address] Mychal Fields MD [address] [place] [address] documented as of this encounter Visit Diagnoses Not on filedocumented in this encounter Additional Health Concerns Assessment Noted Time PHQ-9 Depression Total Score: 6 09/16/19 25 10:06 AM EST documented as of this encounter Care Teams Rail Signal Mechanic Relationship Specialty Start Date End Date Mychal Fields MD [address] [place] [address] PCP - General Internal Medicine 04/30/14 Hima Fam FNP [address] [place] [address] Nurse Practitioner Family Medicine 08/01/23 documented as of this encounter
--- OUTSIDE RECORDS SUMMARY | 2024-10-14 12:27 | XMS_ITS | Encounter Summary ---
Author Organization [employer] Address [address] [place] [address] [address] [address] Care Team Providers Care Glass Technician/Installer Name Role Phone Mychal Fields MD Primary Care Provide r Hima Fam Unavailable Unavailable Reason for Visit * Reason Comments Pre-op Exam Date of Surgery: 08/04Surgical procedure being done: Cataracts right ey Encounter Details Date Type Department Care Team (Late st Contact Info) Description 10/06/2024 1:15 PM EST Office Visit [facility] MED & PEDS [address] [place] [address] Nabeel Magana MD [address] [place] [address] Pre-op evaluation (Primary Dx) Social History Tobacco [...] AN EMPTY STOMACH 180 tablet 0 rizatriptan LEVELER HELPER (Maxalt-LEVELER HELPER) 5 MG disintegrating tablet PLEASE SEE ATTACHED [...] Description 12/23/2024 1:00 PM EDT Office Visit [facility] MEDICINE [address] [place] [address] Mychal Fields MD [address] [place] [address] documented as of this encounter Visit Diagnoses Diagnosis Pre-op evaluation- Primary documented in this encounter Additional Health Concerns Assessment Noted Time PHQ-9 Depression Total Score: 6 09/16/19 25 10:06 AM EST documented as of this encounter Care Teams Glass Technician/Installer Relationship Specialty Start Date End Date Mychal Fields MD [address] [place] [address] PCP - General Internal Medicine 04/30/14 Hima Fam FNP [address] [place] [address] Nurse Practitioner Family Medicine 08/01/23 documented as of this encounter
--- OUTSIDE RECORDS SUMMARY | 2024-10-14 12:27 | XMS_ITS | Encounter Summary ---
Author Organization [employer] Address [address] [place] [address] 7t [place] [address] Care Team Providers Care Rubber Worker Name Role Phone Mychal Fields MD Primary Care Provide r Hima Fam Unavailable Unavailable Reason for Visit * Reason Comments Med Refill Encounter Details Date Type Department Care Team ([facility] st Contact Info) Description 07/27/2023 Refill [facility] MEDICINE [address] [place] [address] Mychal Fields MD [address] [place], [place] [phone] Social History Tobacco Use Types Packs/Day Years [...] Description 12/23/2024 1:00 PM EDT Office Visit [facility] MEDICINE [address] [place] [address] Mychal Fields MD [address] [place] [address] documented as of this encounter Visit Diagnoses Not on filedocumented in this encounter Additional Health Concerns Assessment Noted Time PHQ-9 Depression Total Score: 0 05/10/20 23 10:38 AM EDT documented as of this encounter Care Teams Rubber Worker Relationship Specialty Start Date End Date Mychal Fields MD [address] [place] [address] PCP - General Internal Medicine 04/30/14 Hima Fam FNP [address] [place] [address] Nurse Practitioner Family Medicine 08/01/23 documented as of this encounter
--- OUTSIDE RECORDS SUMMARY | 2024-10-14 12:27 | XMS_ITS | Encounter Summary ---
Author Organization [employer] Address [address] [place] [address] 7 [place] [address] Care Team Providers Care Cigarette Machine Filler Name Role Phone Mychal Fields MD Primary Care Provide r Hima Fam Unavailable Unavailable Reason for Visit * Reason Comments Med Refill Encounter Details Date Type Department Care Team (Late Contact Info) Description 10/05/2022 Refill [facility] MEDICINE [address] [place] [address] Hima Fam FNP Anxiety state Social History [...] Description 12/23/2024 1:00 PM EDT Office Visit [facility] MEDICINE [address] [place] [address] Mychal Fields MD [address] [place] [address] documented as of this encounter Visit Diagnoses Diagnosis Anxiety state Anxiety state, unspecified documented in this encounter Care Teams Cigarette Machine Filler Relationship Specialty Start Date End Date Mychal [place] [address] PCP - General Internal Medicine 04/30/14 Hima Fam FNP [address] [place] [address] [place] [address] Nurse Practitioner Family Medicine 08/01/23 documented as of this encounter
--- OUTSIDE RECORDS SUMMARY | 2024-10-14 12:27 | XMS_ITS | Encounter Summary ---
Author Organization [employer] Address [address] [place] [address] 7t [place] [address] Care Team Providers Care Glass Washer And Carrier Name Role Phone Mychal Fields MD Primary Care Provide r Hima Fam Unavailable Unavailable Reason for Visit * Reason Comments Med Refill Encounter Details Date Type Department Care Team ([facility] st Contact Info) Description 07/27/2023 Refill [facility] MEDICINE [address] [place] [address] Mychal Fields MD [address] [place], [place] [phone] Social History Tobacco Use Types Packs/Day Years [...] Description 12/23/2024 1:00 PM EDT Office Visit [facility] MEDICINE [address] [place] [address] Mychal Fields MD [address] [place] [address] documented as of this encounter Visit Diagnoses Not on filedocumented in this encounter Additional Health Concerns Assessment Noted Time PHQ-9 Depression Total Score: 0 05/10/20 23 10:38 AM EDT documented as of this encounter Care Teams Glass Washer And Carrier Relationship Specialty Start Date End Date Mychal Fields MD [address] [place] [address] PCP - General Internal Medicine 04/30/14 Hima Fam FNP [address] [place] [address] Nurse Practitioner Family Medicine 08/01/23 documented as of this encounter
--- OUTSIDE RECORDS SUMMARY | 2024-10-14 12:27 | XMS_ITS | Encounter Summary ---
Author Organization [employer] Address [address] [place] [address] 7 [place] [address] Care Team Providers Care Hydrogenation Operator Name Role Phone Mychal Fields MD Primary Care Provide r Hima Fam Unavailable Unavailable Reason for Visit * Reason Onset Date Comments Medication Question 09/18/2022 Appointment 09/18/2022 T/C placed to pt regarding to schedule her next follow up for psychopharmacology. Pt agrees to schedule for 10/09/22 @ 4pm. Encounter Details Date Type Department Care Team (Late st Contact Info) Description 09/18/2022 Telephone [facility] MEDICINE [address] [place], [place] [phone] Mychal Fields MD [address] [place], [place] [phone] Medication Question; Appointment (T/C placed to pt [...] know medication name . Please contact at [phone] documented in this encounter Plan of Treatment Upcoming Encounters Date Type Department Care Team (Late st Contact Info) Description 12/23/2024 1:00 PM EDT Office Visit [facility] MEDICINE [address] [place], [place] [phone] Mychal Fields MD [address] [place] [address] documented as of this encounter Visit Diagnoses Not on filedocumented in this encounter Care Teams Hydrogenation Operator Relationship Specialty Start Date End Date Mychal Fields MD [address] [place] [address] PCP - General Internal Medicine 04/30/14 Hima Fam FNP [address] [facility] [place] [address] Nurse Practitioner Family Medicine 08/01/23 documented as of this encounter
--- OUTSIDE RECORDS SUMMARY | 2024-10-14 12:28 | XMS_ITS | Encounter Summary ---
Author Organization [employer] Address [address] [place] [address] 7 [place] [address] Care Team Providers Care Jet Ski Mechanic Name Role Phone Mychal Fields MD Primary Care Provide r Hima Fam Unavailable Unavailable Reason for Visit * Reason Onset Date Comments Nurse Triage 08/05/2024 Encounter Details Date Type Department Care Team ([facility] st Contact Info) Description 08/05/2024 Telephone [facility] MEDICINE [address] [place] [address] Mychal Fields MD [address] [place] [address] Nurse Triage Social History Tobacco Use Types [...] for cough.Pt is offered to come to [facility] to be seen by provider, advised this [...] Pt didn't answer. Left message to call [facility] [phone]. Advised will call back in about 15 [...] symptoms except for fever. Contact pt at [phone] (slovak) documented in this encounter Plan of Treatment Upcoming Encounters Date Type Department Care Team (Late st Contact Info) Description 12/23/2024 1:00 PM EDT Office Visit [facility] MEDICINE [address] [place] [address] Mychal Fields MD [address] [place] [address] documented as of this encounter Visit Diagnoses Not on filedocumented in this encounter Additional Health Concerns Assessment Noted Time PHQ-9 Depression Total Score: 9 01/28/20 24 2:36 PM EDT documented as of this encounter Care Teams Jet Ski Mechanic Relationship Specialty Start Date End Date Mychal Fields MD [address] [place] [address] PCP - General Internal Medicine 04/30/14 Hima Fam FNP [address] [place] [address] Nurse Practitioner Family Medicine 08/01/23 documented as of this encounter
--- OUTSIDE RECORDS SUMMARY | 2024-10-14 12:28 | XMS_ITS | Encounter Summary ---
Author Organization [employer] Address [address] [place] [address] 7 [place] [address] Care Team Providers Care Travel Nurse Name Role Phone Mychal Fields MD Primary Care Provide r Hima Fam Unavailable Unavailable Reason for Visit * Reason Onset Date Comments PRE OP 09/18/2024 Encounter Details Date Type Department Care Team ([facility] st Contact Info) Description 09/18/2024 Telephone [facility] MEDICINE [address] [place] [address] Mychal Fields MD [address] [place] [address] PRE OP Social History Tobacco Use Types [...] placed to pt agreed to pre-op at [facility] on 10/[address] Magana . Also left facility with details Date of Surgery: 10/21/24 Surgical procedure being done: Cataracts right eye Type of anesthesia: MAC Lab needed: No EKG: No Surgeon's name: Dino Zuly Facility name: [facility] Surgeon's office number: [phone] Surgeon's office fax number: [phone] Contact name (person you spoke with): Karon Elena office note from surgeon requested: No * Telephone Encounter - Lucia Delgado - 09/18/2024 11:33 AM EST Date of Surgery: 10/21/24 Surgical procedure being done: Cataracts right eye Type of anesthesia: MAC Lab needed: No EKG: No [facility] name: [facility] Surgeon's office number: [phone] Surgeon's office fax number: [phone] Contact name (person you spoke with): Karon Last office note from surgeon requested: No Send Message to Adela Gomez and Topher Ta documented in this encounter Plan of Treatment Upcoming Encounters Date Type Department Care Team (Late st Contact Info) Description 12/23/2024 1:00 PM EDT Office Visit [facility] MEDICINE [address] [place] [address] Mychal Fields MD [address] [place] [address] documented as of this encounter Visit Diagnoses Not on filedocumented in this encounter Additional Health Concerns Assessment Noted Time PHQ-9 Depression Total Score: 6 09/16/19 25 10:06 AM EST documented as of this encounter Care Teams Travel Nurse Relationship Specialty Start Date End Date Mychal Fields MD [address] [place] [address] PCP - General Internal Medicine 04/30/14 Hima Fma FNP [address] [place] [address] Nurse Practitioner Family Medicine 08/01/23 documented as of this encounter
--- OUTSIDE RECORDS SUMMARY | 2024-10-14 12:28 | XMS_ITS | Encounter Summary ---
Author Organization [employer] Address [address] [place] [address] 7 [place] [address] Care Team Providers Care Crystal Inspector Name Role Phone Mychal Fields MD Primary Care Provide r Hima Fam Unavailable Unavailable Reason for Visit * Reason Onset Date Comments Appointment Request 09/16/2024 Encounter Details Date Type Department Care Team ([facility] Contact Info) Description 09/16/2024 Telephone [facility] MEDICINE [address] [place] [address] Mychal Fields MD [address] [place] [address] Appointment Request Social History Tobacco Use Types [...] PM EST Contacted pt in regards to [facility], I faxed over the CT Abdomen [...] Xray Chest order hat I faxed to [facility] that she can also get completed. LB documented in this encounter Plan of Treatment Upcoming Encounters Date Type Department Care Team (Late st Contact Info) Description 12/23/2024 1:00 PM EDT Office Visit [facility] MEDICINE [address] [place] [address] Mychal Fields MD [address] [place] [address] documented as of this encounter Visit Diagnoses Not on filedocumented in this encounter Additional Health Concerns Assessment Noted Time PHQ-9 Depression Total Score: 6 09/16/19 25 10:06 AM EST documented as of this encounter Care Teams Crystal Inspector Relationship Specialty Start Date End Date Mychal Fields MD [address] [place] [address] PCP - General Internal Medicine 04/30/14 Hima Fam FNP [address] [place] [address] Nurse Practitioner Family Medicine 08/01/23 documented as of this encounter
--- OUTSIDE RECORDS SUMMARY | 2024-10-14 12:28 | XMS_ITS | Encounter Summary ---
Author Organization [employer] Address [address] [facility] [address] [place] [address] Care Team Providers Care Cause Analyst Name Role Phone Mychal Fields MD Primary [...] Upcoming Encounters Date Type Department Care Team ([facility] st Contact Info) Description 12/23/2024 1:00 PM EDT Office Visit [facility] [address] [place] [address] Mychal Fields MD [address] [place] [address] documented as of this encounter Procedures Procedure Name Priority Date/Time Associated Diagnosis Comments CREATININE, SERUM Routine 09/16/2024 11: 09 AM EST UREA NITROGEN (BUN) Routine 09/16/2024 1 1:09 AM EST documented in this encounter Results * Creatinine, Serum (09/16/2024 11:09 AM EST) Creatinine, Serum 0.88 0.5 - 1.4 mg/dL [facility] Estimated Glomerular Filt Rate >60 [facility] Comment:Chronic Kidney Disea se: Estimated GFR < 60 mL/min/1.24m1Homxqh Kidney Disease: Estimated GFR < 15 mL/min/1.73m2 09/16/2024 11:0 9 AM EST 09/16/2024 1:03 PM EST us Generic External Data Provider LAB BLOOD ORDERAB LES Final Result [facility] [address] [place] [address] [phone] * BUN (Blood Urea Nitrogen) (09/16/2024 11:09 AM EST) Urea Nitrogen (BUN) 11 9 - 16 mg/dL [facility] 09/16/2024 11:0 9 AM EST 09/16/2024 1:03 PM EST us Generic External Data Provider LAB BLOOD ORDERAB LES Final Result Performing Organization Address [facility] Co de Phone Number [facility] [address] [place] [address] [phone] documented in this encounter Visit Diagnoses Not on filedocumented in this encounter Additional Health Concerns Assessment Noted Time PHQ-9 Depression Total Score: 6 09/16/19 25 10:06 AM EST documented as of this encounter Care Teams Cause Analyst Relationship Specialty Start Date End Date Mychal Fields MD [address] [place] [address] PCP - General Internal Medicine 04/30/14 Hima Fam FNP [address] [place] [address] Nurse Practitioner Family Medicine 08/01/23 documented as of this encounter
--- OUTSIDE RECORDS SUMMARY | 2024-10-14 12:28 | XMS_ITS | Encounter Summary ---
Author Organization [employer] Address [address] [place] [address] [address] [place] [address] Care Team Providers Care Cavalry Scout Name Role Phone Mychal Fields MD Primary Care Provide r Hima Fam Unavailable Unavailable Reason for Visit * Reason Comments Med Refill Encounter Details Date Type Department Care Team (Late st Contact Info) Description 09/11/[address] [facility] [address] [place] [address] Claudette Nassar MD [address] [place] [address] Anxiety and depression Social History Tobacco Use [...] Description 12/23/2024 1:00 PM EDT Office Visit [facility] [address] [place] [phone] Mychal Fields MD [address] [place] [phone] documented as of this encounter Visit Diagnoses Diagnosis Anxiety and depression documented in this encounter Additional Health Concerns Assessment Noted Time PHQ-9 Depression Total Score: 9 01/28/20 24 2:36 PM EDT documented as of this encounter Care Teams Cavalry Scout Relationship Specialty Start Date End Date Mychal Fields MD [address] [place] [phone] PCP - General Internal Medicine 04/30/14 Hima Fam FNP [address] [place] [phone] Nurse Practitioner Family Medicine 08/01/23 documented as of this encounter
--- OUTSIDE RECORDS SUMMARY | 2024-10-14 12:28 | XMS_ITS | Clinical Summary ---
Author Organization [employer] Address [address] [place] [address] 7 [place] [address] Care Team Providers Care Leach Runner Name Role Phone Mychal Fields MD Primary [...] (two) hours if needed. 07/07/20 Active rizatriptan TOURIST INFORMATION OFFICER (Maxalt-TOURIST INFORMATION OFFICER) 5 MG disintegrating tablet PLEASE SEE ATTACHED [...] was evaluated by Dr. Wynn at our [facility] who recommended to check D dimer [...] We are trying to get her to [facility] before the lab and xray close [...] reports she has completed thyroid ultrasound at [facility], notes not available at this time Hair [...] EDT): Pelvis exam indicative of this Plan: CLINICAL EDITOR referral Right foot pain 05/10/2023 Assessment & [...] tolerate NSAIDS Patient was eventually seen at [facility] neurology 04/04/2024. They recommended repeat brain MRI [...] with no good results, cannot tolerate NSAIDS [facility] neurology is not accepting new patients at the moment. Will try to refer to a different Neurologist perhaps at [facility] Assessment & Plan (01/17/2024 1:06 PM EDT): [...] will also be referring to Neurology at [facility] Assessment & Plan (04/03/2023 1:22 PM EDT): [...] recently retired Pt has a therapist at [facility] I recommended she speak with therapist about [...] necessary. For any issues or concerns, contact [facility]. All her questions were answered and I [...] used to be under the care of verification specialist who had been prescribing Baclofen Assessment [...] used to be under the care of verification specialist who had been prescribing tramadol 100mg [...] without neural impingement. Pt was seen at [facility] 04/2023 and has a follow up appointment [...] without neural impingement. Pt was seen at [facility] recently has a follow up recommended PT [...] neural impingement. Pt will be referred to [facility] Smoker 02/21/2012 Assessment & Plan (04/03/2023 1:41 [...] Type Department Care Team Description 10/11/2024 Refill [facility] MEDICINE [address] [place] [address] Mychal Fields MD 10/11/2024 Refill [facility] MEDICINE [address] [place] [address] Bette Wynn MD Low vitamin D level 10/06/2024 1:15 PM EST Office Visit [facility] [address] [place] [address] Nabeel Magana MD Pre-op evaluation (Primary Dx) 10/06/2024 Refill [facility] [address] [place] [address] Mychal Fields MD Anxiety and depression 10/06/2024 Travel 10/03/[address] [address] Mychal Fields MD December09/22/2024 Orders Only GENERIC EXTERNAL DATA DEPARTMENT Provider, Generic External Data 09/18/[address] [address] Mychal Fields MD PRE OP 09/16/2024 10:00 AM EST Office Visit [address] [address] Mychal Fields MD JERRI (obstructive sleep apnea) (Primary Dx); Abnormal CT of the chest; Essential hypertension; Microscopic hematuria; Fibromyalgia; Subacute cough; Restrictive lung disease; Enlarged lymph nodes; Preventative health care 09/16/[address] [address] Mychal Fields MD Appointment Request 09/16/2024 Orders Only GENERIC EXTERNAL DATA DEPARTMENT Provider, Generic External Data 09/16/[address] [address] Mychal Fields MD Appointment Request 09/16/2024 Travel 09/11/2024 Refill [facility] [address] [place] [address] Claudette Nassar MD Anxiety and depression 09/04/[address] [address] Mychal Fields MD Chart Prep 08/25/[address] [address] Toño Lim [place] Lab order D-Dimer STAT 08/15/[address] [address] Margarita Reagan RN Lab Orders (STAT D-Dimer) 08/12/2024 Refill [facility] [address] [place] [address] Mychal Fields MD Anxiety and depression 08/11/[address] [address] Cinthya Dover ANP Essential hypertension 08/05/2024 5:20 PM EST Office Visit [facility] [address] [place] [phone] Bette Wynn MD Cough in adult patient (Primary Dx) 08/05/2024 Orders Only GENERIC EXTERNAL DATA DEPARTMENT Provider, Generic External Data 08/05/2024 Travel 08/05/[address] [address] Mychal Fields MD Nurse Triage 07/23/2024 2:00 PM EST Office Visit [address] [address] Genesis Carrero, LORENA Tenderness of chest wall (Primary Dx); Acute cough; Encounter for tobacco use cessation counseling 07/23/2024 Travel 07/23/[address] [address] Mychal Fields MD Nurse Triage 07/23/[address] [address] Mychal Fields MD Durable Medical Equipment from Last 3 Months Immunizations Name Administration [...] 10/06/2024 1:43 PM EST Plan of Treatment Upcoming Encounters Date Type Department Care Team (Late st Contact Info) Description 12/23/2024 1:00 PM EDT Office Visit [facility] MEDICINE [address] [place] [address] Mychal Fields MD [address] [place] [address] Health Maintenance Due Date Last Done Comments [...] EST Narrative 09/24/2024 9:59 AM EST ? [facility] ?[address] ?[place] [address] ?XRay Report ? Signed ? Patient: Clark,Elaine ?MR#: [id number] ? : 1970 ?Acct:[id number] ? Age/Sex: 53 / F ?ADM Date: 01/13/25 ? Loc: HO.XRAY ? Attending Dr: Syed Coreas MD ? Ordering Physician: Brigid West MD ?? Date of Service: 09/22/24 ?? Procedure(s): XR knee RT 4V ?? Accession Number(s): [id number] ? cc: Brigid West MD; Mychal Long [...] DD/ 1250 ? TD/TT: 09/22/24 1312 ? Hotel And Dining Room Cashier: MSM ? Procedure Note Donartieter, Image - 09/24/2024 [place] [address] XRay Report Signed Patient: Elaine RodasMR#: [id number] : 1970Acct:[id number] Age/Sex: 53 / FADM Date: 09/22/24 Loc: CHAPARRITA Attending Dr: Syed Coreas MD Ordering Physician: Brigid West MD Date of Service: 09/22/24 Procedure(s): XR knee RT 4V Accession Number(s): [id number] cc: Brigid West MD; Mychal Long MD [...] 09/24/24 0956 DD/ 1250 TD/TT: 09/22/24 1312 Hotel And Dining Room Cashier: GARY us [facility] External Provider IMG XR PROCEDURES Final Result * XR Knee 4+ Views Left (09/22/2024 12:50 PM EST) Anatomical Region Laterality Modality Lower Extremities, Knee Left Radiogra phic Imaging 09/22/2024 12:5 0 PM EST Narrative 09/24/2024 10:01 AM EST ? [facility] ?[address] ?[place] [address] ?XRay Report ? Signed ? Patient: Clark,Elaine ?MR#: [id number] ? : 1970 ?Acct:[id number] ? Age/Sex: 53 / F ?ADM Date: 09/22/24 ? Loc: HO.XRAY ? Attending Dr: Syed Coreas MD ? Ordering Physician: Brigid West MD ?? Date of Service: 09/22/24 ?? Procedure(s): XR knee LT 4V ?? Accession Number(s): [id number] ? cc: Brigid West MD; Mychal Long [...] left knee. ? Electronically signed by: ??Chidi Sefl MD ??09/24/2024 09:59 AM EST RP ? Dictated By: ?Chidi Self MD ? Signed By: ?<Electronically signed by Chidi Self MD in OV> ?09/24/24 0959 ? DD/ 1250 ? TD/TT: 09/22/24 1312 ? Hotel And Dining Room Cashier: MSM ? Procedure Note Donotuseinterpreter, Image - 09/24/[address] [address] XRay Report Signed Patient: Elaine RodasMR#: [id number] : 1970Acct:[id number] Age/Sex: 53 / FADM Date: 09/22/24 Loc: HOKRISH Attending Dr: Syed Coreas MD Ordering Physician: Brigid West MD Date of Service: 09/22/24 Procedure(s): XR knee LT 4V Accession Number(s): [id number] cc: Brigid West MD; Mychal Long MD [...] 09/24/24 0959 DD/ 1250 TD/TT: 09/22/24 1312 Hotel And Dining Room Cashier: GARY [facility] External Provider IMG XR PROCEDURES Final Result * XR Chest 2 Views (09/22/2024 12:50 PM EST) Anatomical Region Laterality Modality Chest Radiographic Hilda ging 09/22/2024 12:5 0 PM EST Narrative 09/24/2024 10:02 AM EST ? [facility] ?[address] ?[place] [address] ?XRay Report ? Signed ? Patient: Elaine Rodas ?MR#: [id number] ? : 1970 ?Acct:[id number] ? Age/Sex: 53 / F ?ADM Date: 09/22/24 ? Loc: HO.XRAY ? Attending Dr: Syed Coreas MD ? Ordering Physician: Mychal Long MD ?? Date of Service: 09/22/24 ?? Procedure(s): XR chest 2V ?? Accession Number(s): [id number] ? cc: Mychal Long MD ? EXAMINATION: [...] Signed By: ?<Electronically signed by Chidi S Clair MD in OV> ?09/24/24 0959 ? DD/ 1250 ? TD/TT: 09/22/24 1312 ? Hotel And Dining Room Cashier: MSM ? Procedure Note Nishi, Image - 09/24/[address] [place] [address] XRay Report Signed Patient: Elaine RodasMR#: [id number] : 1970Acct:[id number] Age/Sex: 53 / FADM Date: 09/22/24 Loc: HO.XRAY Attending Dr: Syed Coreas MD Ordering Physician: Mychal Long MD Date of Service: 09/22/24 Procedure(s): XR chest 2V Accession Number(s): [id number] cc: Mychal Long MD EXAMINATION: XR CHEST [...] 09/24/24 0959 DD/ 1250 TD/TT: 09/22/24 1312 Hotel And Dining Room Cashier: GARY us Mychal Morris MD IMG XR PROCEDURES Fin al Result * Syphilis Screen (09/22/2024 12:35 PM EST) Syphilis Screen Nonreactive Nonreactive [facility] 09/22/2024 12:3 5 PM EST 09/22/2024 12:35 PM EST us Generic External Data Provider LAB BLOOD ORDERAB LES Final Result [facility] [address] [place] [phone] * Hepatitis C Ab (09/22/2024 12:35 PM EST) Hepatitis C Antibody Nonreactive Nonreactive [facility] Comment:Antibodies to HCV no t detected; does not exclude early acuteHCV infection. 09/22/2024 12:3 5 PM EST 09/22/2024 12:35 PM EST Generic External Data Provider LAB BLOOD ORDERAB LES Final Result Performing Organization Address [facility] Co de Phone Number [facility] [address] [place] [phone] * Creatinine, Serum (09/22/2024 12:35 PM EST) Only the most recent of2 resultswithin the time period is included. Creatinine, Serum 0.89 0.5 - 1.4 mg/dL [facility] Estimated Glomerular Filt Rate >60 [facility] Comment:Chronic Kidney Disea se: Estimated GFR < 60 mL/min/1.69v9Ctcylu Kidney Disease: Estimated GFR < 15 mL/min/1.73m2 09/22/2024 12:3 5 PM EST 09/22/2024 12:35 PM EST Generic External Data Provider LAB BLOOD ORDERAB LES Final Result Performing Organization Address [facility] Co de Phone Number [facility] [address] [place] [phone] * Hepatitis B surface antigen, EIA (09/22/2024 12:35 PM EST) Hepatitis B Surface Ag Negative Negative [facility] 09/22/2024 12:3 5 PM EST 09/22/2024 12:35 PM EST Generic External Data Provider LAB BLOOD ORDERAB LES Final Result Performing Organization Address [facility] Co de Phone Number [facility] [address] [place] [phone] * HIV-1/2 Antigen and Antibodies, Fourth Generation, with Reflexes (09/22/2024 12:35 PM EST) Pathologist [facility] HIV AB/AG Nonreactive Nonreactive [facility] Comment:HIV-1 p24 Ag and/or HIV-1/HIV-2 Ab not detected.A test result that is nonreactive does not exclude thepossibility of exposure to or infection with HIV-1 and/orHIV-2. Nonreactive results in this assay for individualswith prior exposure to HIV-1 and/or HIV-2 may be due toantigen and antibody levels that are below the limit ofdetection of this assay.[employer] HIV Ag/Ab Combo assay result andsupplemental assay results should be interpreted inconjunction with the patient's clinical presentation,history and other laboratory results. If the results areinconsistent with clinical evidence, additional testing issuggested to confirm the result. 09/22/2024 12:3 5 PM EST 09/22/2024 12:35 PM EST Generic External Data Provider LAB BLOOD ORDERAB LES Final Result Performing Organization Address City/[facility]/ZIP Co de Phone Number [facility] [address] [place] [phone] * BUN (Blood Urea Nitrogen) (09/22/2024 12:35 PM EST) Only the most recent of2 resultswithin the time period is included. [facility] Urea Nitrogen (BUN) 13 9 - 16 mg/dL [facility] 09/22/2024 12:3 5 PM EST 09/22/2024 12:35 PM EST us Generic External Data Provider LAB BLOOD ORDERAB LES Final Result Performing Organization Address City/[facility] Co de Phone Number [facility] [address] [place] [phone] * D Dimer High Sensitivity (09/16/2024 11:09 AM EST) [facility] D Dimer High Sensitivity 203 NG/ML [facility] Comment:D-DIMER HS REFERENCE RANGENote: Our [...] BLOOD ORDERABLES Final Result Performing Organization Address [facility] Co de Phone Number [facility] [address] [place] [phone] * High Sensitivity Troponin I (08/05/2024 6:21 PM EST) [facility] TROPONIN I HIGH SENSITIVITY <2.7 <3.5 - 17.0 ng/L [facility] Comment:The Hernandez high sens itivity Troponin-I results should beused in conjunction with other diagnostic information suchas ECG, clinical observations and information, and patientsymptoms to aid in the diagnosis of IN. 08/05/2024 6:21 PM EST 08/05/2024 6:24 PM EST Generic External Data Provider LAB BLOOD ORDERAB LES Final Result Performing Organization Address [facility] Phone Number [facility] [address] [place] [phone] * (ABNORMAL) CBC auto differential (08/05/2024 6:21 PM EST) [facility] White Blood Count 8.2 4.8 - 10.8 X10*3/uL [facility] Red Blood Count 4.26 4.20 - 5.50 X10*6/uL [facility] Hemoglobin 12.5 12.0 - 16.0 g/dl [facility] Hematocrit 37.0 37.0 - 47.0 % [facility] Mean Corpuscular Volume 86.9 80.0 - 98.0 fL [facility] Mean Corpuscular Hemoglobin 29.3 27.0 - 33.0 pg [facility] Mean Corpuscular HGB Conc 33.8 31.0 - 35.0 g/dl [facility] Red Cell Distribution Width 12.9 11.0 - 16.0 % [facility] Platelet Count 269 160 - 400 X10*3/uL [facility] Mean Platelet Volume 9.6 9.4 - 12.3 fL [facility] Neutrophils Percent Auto 47.3 45 - 73 % [facility] Imm Gran Pct Auto 0.2 0.0 - 0.4 % [facility] Lymphocytes Percent Auto 45.0(H) 20 - 40 % [facility] Monocytes Percent Auto 4.5 2 - 11 % [facility] Eosinophils Percent Auto 2.3 0 - 4 % [facility] Basophils Percent Auto 0.7 0 - 2 % [facility] NRBC Pct Auto 0.0 0.0 - 0.2 /100WBC [facility] Neutrophils Absolute Auto 3.9 2.0 - 8.3 x10*3/uL [facility] Imm Gran Abs Auto 0.02 0.00 - 0.03 X10*3/uL [facility] Lymphocytes Absolute Auto 3.7 1.2 - 4.9 X10*3/uL [facility] Monocytes Absolute Auto 0.4 0.1 - 1.2 X10*3/uL [facility] Eosinophils Absolute Auto 0.2 0.0 - 0.4 X10*3/uL [facility] Basophils Absolute Auto 0.1 0.0 - 0.2 X10*3/uL [facility] NRBC Abs Auto 0.000 0.0 - 0.012 X10*3/uL [facility] 08/05/2024 6:21 PM EST 08/05/2024 6:24 PM EST us Generic External Data Provider LAB BLOOD ORDERAB LES Final Result [facility] [address] [place] [phone] * Prothrombin Time-INR (08/05/2024 6:21 PM EST) Prothrombin Time 10.9 10.9 - 12.4 SEC [facility] INTERNATIONAL NORM RATIO 0.9 0.9 - 1.1 [facility] Comment:INTERNATIONAL NORMAL IZED RATIO (INR) [...] Provider LAB BLOOD ORDERAB LES Final Result [facility] [address] [place] [phone] * (ABNORMAL) Comprehensive Metabolic Panel (08/05/2024 6:21 PM EST) Pathologist [facility] Sodium 139 135 - 145 mmol/L [facility] Potassium 3.9 3.3 - 5.1 mmol/L [facility] Chloride 105 96 - 108 mmol/L [facility] Carbon Dioxide 29 22 - 29 mmol/L [facility] Anion Gap 9(L) 12 - 20 [facility] Urea Nitrogen (BUN) 11 9 - 16 mg/dL [facility] Creatinine, Serum 0.86 0.5 - 1.4 mg/dL [facility] Creatinine Clr Calc Pharmacy 88.6 [facility] Comment:Provided height and weight: 167.64 cm,96.5 kg.eGFR (calculated from the MDRD study equation) and eCrCl(calculated from the Cockcroft-Gault equation) are based ondifferent parameters and may not yield comparable results.If eCrCl result is absurd, please check patient'sheight/weight. Estimated Glomerular Filt Rate >60 [facility] Comment:Chronic Kidney Disea se: Estimated GFR < 60 mL/min/1.89e1Uknlej Kidney Disease: Estimated GFR < 15 mL/min/1.73m2 Glucose 98 60 - 115 mg/dL [facility] Calcium 9.3 8.4 - 10.2 mg/dL [facility] Bilirubin, Total 0.2 0.0 - 1.0 mg/dL [facility] Aspartate Amino Transferase 17 5 - 31 U/L [facility] Alanine Aminotransferase 14 0 - 31 U/L [facility] Total Protein 7.6 6.5 - 8.0 g/dL [facility] Albumin Level 3.9 3.5 - 5.0 g/dL [facility] Alkaline Phosphatase 114 39 - 117 U/L [facility] 08/05/2024 6:21 PM EST 08/05/2024 6:24 PM EST us Generic External Data Provider LAB BLOOD ORDERAB LES Final Result [facility] [address] [place] [phone] * POCT Rapid COVID-19 Binax NOW (08/05/2024 5:31 PM EST) Rapid COVID Ag Negative QC Media Lot # [id number] Lot# Expiration Date [id number] Swab 08/05/2024 5:31 PM EST us Bette Wynn MD POINT OF CARE TEST ENTER/E DIT ORDERABLES Final Result * POCT Rapid Influenza B HERNANDEZ ID NOW (08/05/2024 5:30 PM EST) Only the most recent of2 resultswithin the time period is included. Pathologist [facility] Influenza B Negative Negative, Indeterminate [facility] QC Media Lot # [id number] [facility] Lot# Expiration Date [facility] Swab 08/05/2024 5:30 PM EST Bette Wynn MD POINT OF CARE TEST ENTER/E DIT ORDERABLES Final Result Performing Organization Address [facility] de Phone Number [facility] [address] [place] [phone] * POCT Rapid Influenza A HERNANDEZ ID NOW (08/05/2024 5:30 PM EST) Only the most recent of2 resultswithin the time period is included. Influenza A Negative Negative, Indeterminate [facility] QC Media Lot # [id number] [facility] Lot# Expiration Date [facility] Swab 08/05/2024 5:30 PM EST Bette Wynn MD POINT OF CARE TEST ENTER/E DIT ORDERABLES Final Result Performing Organization Address [facility] de Phone Number [facility] [address] [place] [phone] * POCT Rapid Covid-19 HERNANDEZ ID NOW (07/23/2024 3:03 PM EST) Coronavirus Antigen PCR Negative Negative, Indeterminate, None Detected, Invalid, Specimen unsatisfactory for evaluation, Weakly Positive QC Media Lot # [id number] Lot# Expiration Date Swab 07/23/2024 3:03 PM EST Genesis Carrero NP POINT OF CARE TEST ENTER/EDIT O RDERABLES Final Result * BI Mammogram Screening Tomosynthesis Bilateral (09/24/2023 4:24 PM EST) Anatomical Region Laterality Modality Breast Bilateral Mammography 09/24/2023 4:24 PM EST Narrative 10/12/2023 4:26 PM EST ? [facility] ?[address] ?[place] [address] ? Mammography Report ? Signed ? Patient: Clark,Elaine ?MR#: [id number] ? : 1970 ?Acct:[id number] ? Age/Sex: 52 / F ?ADM Date: 09/24/23 ? Loc: HO.US ? Attending Dr: Cecily Schwab CNM ? Ordering Physician: CECILY SCHWAB CNJessica ?Results: 1 ?? Negative ? Date of Service: 09/24/23 ?Follow Up: 1 Year From Orig ?? inal Mammogram ? Procedure(s): MM tomosynthesis screening BI ?? Accession Number(s): [id number] ? cc: Mychal Long MD; CECILY SCHWABM ? EXAMINATION: ?? MM SCREENING DIGITAL BREAST [...] 10/12/231621 ? DD/ 1624 ? TD/TT: ? Hotel And Dining Room Cashier: ? Procedure Note Donnoel, Image - 10/12/2023 [place] [address] Mammography Report Signed Patient: Sebas Rodas#: [id number] : 1970Acct:[id number] Age/Sex: 52 / FADM Date: 09/24/23 Loc: HO. Attending Dr: Cecily Schwab CNM Ordering Physician: CECILY SCHWABesults: 1 Negative Date of Service: 09/24/23Follow Up: 1 Year From Orig inal Mammogram Procedure(s): MM tomosynthesis screening BI Accession Number(s): [id number] cc: Mychal Long MD; CECILY SCHWAB CNM [...] Porter MD in OV> 10/12/23 1622 DD/ 162 TD/TT: Hotel And Dining Room Cashier: Cecily Schwab CNM IM BI PROCEDURES Final R esult * HPV mRNA E6/E7 w/Reflex to HPV Genotypes 16, 18/45 (08/23/2023 2:22 PM EST) HPV nRNA E6/E7 Not Detected Not Detected [facility] Comment:Methodology: Transcr iption-Mediated AmplificationThis assay detects E6/E7 viral messenger RNA (mRNA) from 14high-risk HPV types (16,18,31,33,35,39,45,51,52,56,58,59,66,68).Cervical sources are required for HPV testing.If a vaginal source from a patient who has had atotal hysterectomy with removal of cervix wassubmitted, please contact the testing laboratoryfor alternative testing options.For additional information, please refer tohttp://education.Fi.tt/faq/OFY777i8(This link if provided for information/educational purposes only.)THIS TEST WAS PERFORMED AT:[employer] [place] [phone] PRESSLEY MD HPV mRNA E6/E7 [facility] HPV 16 RNA [facility] HPV 18/45 RNA [facility] 08/23/2023 2:22 PM EST 08/24/2023 9:35 AM EST Cecily Schwab CNM LAB CYTOLOGY ORDERABLES F inal Result [facility] [address] [place] [phone] * Pap Smear (08/23/2023 2:22 PM EST) Swab Cervix uteri structure / Unknown 08/23/2023 2:22 PM EST 08/24/2023 9:35 AM EST Narrative [facility] - 09/04/2023 1:23 PM EST ----- ------- Name: Elaine Rodas ?Age/Sex: 52/F ? : 1970 Unit#: [id number] ?? Attend Dr: ?Re08/23/23 ?Status: PRE REF ? Location: HO.LNP ?Disch: ? ----- ------- SPEC : [id number] ?RECD: 08/24/23 ? STATUS: ??SOUT ? REQ NUM: [id number] ? CHAPIN: 08/23/23 ? SUBM DR: CECILY [...] 66, 68) ?? HPV testing performed by [facility], [place], [place]. ??See reference laboratory ?? portion of the EMR for entire report. ?Clinical Information LMP: Postmenopausal Previous PAP test: Unknown date/findings Other history: Abnormal bleeding ? Material Received ?? ThinPrep-Cervical ----- ------- Signed (signature on file) NATHAN Medrano ([facility]) 09/04/23 1323 ? ----- ------- ? END OF REPORT ? Cecily STANTON LAB CYTOLOGY ORDERABLES F inal Result [facility] [address] [place] [phone] * Colonoscopy (08/30/2022) [facility] Colonoscopy Normal Normal Historical Provider HEALTH MAINTENANCE Final Result * (ABNORMAL) LIPID PANEL, STANDARD (06/17/2020 3:00 PM EDT) [facility] HDL Cholesterol 53 > OR = 50 [...] ?? LDL-C is now calculated using the Jessee ?? calculation, which is a validated novel method providing ?? better accuracy than the Friedewald equation in the ?? estimation of LDL-C. ?? Mina MARRERO et al. ASHUTOSH. 2013;310(19): 7386-7573 ?? (http://Teamisto.Parkt/faq/FVV999) Chol/HDLC Ratio 3.4 <5.0 (calc) [facility] 06/17/2020 3:00 PM EDT us Mychal Morris MD LAB BLOOD ORDERABLES Final Result [facility] [address] from Last 3 Months or Most Recently Relevant to Health Maintenance Insurance [facility] C3 Care Teams Leach Runner Relationship Specialty Start Date End Date Mychal Fields MD [address] [place] [address] PCP - General Internal Medicine 04/30/14 Hima Fam FNP [address] [facility] [place] [address] Nurse Practitioner Family Medicine 08/01/23
--- OUTSIDE RECORDS SUMMARY | 2024-10-14 12:28 | XMS_ITS | Encounter Summary ---
Author Organization [employer] Address [address] [facility] 7t [place] [address] Care Team Providers Care Sr. Manager Corporate Communications Name Role Phone Mychal Fields MD Primary [...] Upcoming Encounters Date Type Department Care Team ([facility] st Contact Info) Description 12/23/2024 1:00 PM EDT Office Visit [facility] MEDICINE [address] [place] [phone] Mychal Fields MD [address] [place] [address] documented as of this encounter Procedures Procedure [...] Region Laterality Modality Lower Extremities, Knee Left [employer] [facility] Imaging 09/22/2024 12:5 0 PM EST Narrative 09/24/2024 10:01 AM EST ? [facility] ?[address] ?[place] [address] ?XRay Report ? Signed ? Patient: Clark,Elaine ?MR#: [id number] ? : 1970 ?Acct:[id number] ? Age/Sex: 53 / F ?ADM Date: 09/22/24 ? Loc: HO.XRAY ? Attending Dr: Syed Coreas MD ? Ordering Physician: Brigid West MD ?? Date of Service: 09/22/24 ?? Procedure(s): XR knee LT 4V ?? Accession Number(s): [id number] ? cc: Brigid West MD; Mychal Long [...] left knee. ? Electronically signed by: ??Chidi Clair MD ??09/24/2024 09:59 AM EST RP ? Dictated By: ?Clair,Chidi S MD ? Signed By: ?<Electronically signed by Chidi S Clair, MD in OV> ?09/24/24 0959 ? DD/ 1250 ? TD/TT: 09/22/24 1312 ? Form Worker: MSM ? Procedure Note Donotboyter, Image - 09/24/[address] [address] XRay Report Signed Patient: Elaine RodasMR#: [id number] : 1970Acct:[id number] Age/Sex: 53 / FADM Date: 09/22/24 Loc: HO.XRAY Attending Dr: Syed Coreas MD Ordering Physician: Brigid West MD Date of Service: 09/22/24 Procedure(s): XR knee LT 4V Accession Number(s): [id number] cc: Brigid West MD; Mychal Long MD [...] 09/24/24 0959 DD/ 1250 TD/TT: 09/22/24 1312 Form Worker: GARY us [facility] External Provider IMG XR PROCEDURES Final Result * XR Knee 4+ Views Right (09/22/2024 12:50 PM EST) Anatomical Region Laterality Modality Lower Extremities, Knee Right Radiogra phic Imaging 09/22/2024 12:5 0 PM EST Narrative 09/24/2024 9:59 AM EST ? [facility] ?[address] ?[place] [address] ?XRay Report ? Signed ? Patient: Clark,Elaine ?MR#: [id number] ? : 1970 ?Acct:[id number] ? Age/Sex: 53 / F ?ADM Date: 09/22/24 ? Loc: HO.XRAY ? Attending Dr: Syed Coreas MD ? Ordering Physician: Brigid West MD ?? Date of Service: 09/22/24 ?? Procedure(s): XR knee RT 4V ?? Accession Number(s): [id number] ? cc: Brigid West MD; Mychal Long [...] 09:56 AM EST RP ? Dictated By: ?Clair,Chidi S MD ? Signed By: ?<Electronically signed by Chidi S Clair, in OV> ?09/24/24 0956 ? DD/ 1250 ? TD/TT: 09/22/24 1312 ? Form Worker: MSM ? Procedure Note Yas Almodovar - 09/24/2024 [place] [id number] [place] [address] XRay Report Signed Patient: Elaine RodasMR#: [id number] : 1970Acct:[id number] Age/Sex: 53 / FADM Date: 09/22/24 Loc: CHAPARRITA Attending Dr: Syed Coreas MD Ordering Physician: Brigid West MD Date of Service: 09/22/24 Procedure(s): XR knee RT 4V Accession Number(s): [id number] cc: Brigid West MD; Mychal Long MD [...] 09/24/24 0956 DD/ 1250 TD/TT: 09/22/24 1312 Form Worker: GARY [facility] External Provider IMG XR PROCEDURES Final Result * Hepatitis B surface antigen, EIA (09/22/2024 12:35 PM EST) Hepatitis B Surface Ag Negative Negative [facility] 09/22/2024 12:3 5 PM EST 09/22/2024 12:35 PM EST Generic External Data Provider LAB BLOOD ORDERAB LES Final Result [facility] [address] [place] [phone] * HIV-1/2 Antigen and Antibodies, Fourth Generation, with Reflexes (09/22/2024 12:35 PM EST) Pathologist [facility] [place] HIV AB/AG Nonreactive Nonreactive [facility] Comment:HIV-1 p24 Ag and/or HIV-1/HIV-2 Ab not detected.A test result that is nonreactive does not exclude thepossibility of exposure to or infection with HIV-1 and/orHIV-2. Nonreactive results in this assay for individualswith prior exposure to HIV-1 and/or HIV-2 may be due toantigen and antibody levels that are below the limit ofdetection of this assay.The [employer] HIV Ag/Ab Combo assay result andsupplemental assay results should be interpreted inconjunction with the patient's clinical presentation,history and other laboratory results. If the results areinconsistent with clinical evidence, additional testing issuggested to confirm the result. 09/22/2024 12:3 5 PM EST 09/22/2024 12:35 PM EST Generic External Data Provider LAB BLOOD ORDERAB LES Final Result Performing Organization Address [facility]/ZIP Co de Phone Number [facility] [address] [place] [phone] * Hepatitis C Ab (09/22/2024 12:35 PM EST) [facility] Hepatitis C Antibody Nonreactive Nonreactive [facility] Comment:Antibodies to HCV no t detected; does not exclude early acuteHCV infection. 09/22/2024 12:3 5 PM EST 09/22/2024 12:35 PM EST Generic External Data Provider LAB BLOOD ORDERAB LES Final Result Performing Organization Address [facility] Co de Phone Number [facility] [address] [place] [phone] * Syphilis Screen (09/22/2024 12:35 PM EST) [facility] Syphilis Screen Nonreactive Nonreactive [facility] 09/22/2024 12:3 5 PM EST 09/22/2024 12:35 PM EST us Generic External Data Provider LAB BLOOD ORDERAB LES Final Result Performing Organization Address [facility] Co de Phone Number [facility] [address] [place] [phone] * Creatinine, Serum (09/22/2024 12:35 PM EST) Creatinine, Serum 0.89 0.5 - 1.4 mg/dL [facility] Estimated Glomerular Filt Rate >60 [facility] Comment:Chronic Kidney Disea se: Estimated GFR < 60 mL/min/1.17o2Sjdchm Kidney Disease: Estimated GFR < 15 mL/min/1.73m2 09/22/2024 12:3 5 PM EST 09/22/2024 12:35 PM EST us Generic External Data Provider LAB BLOOD ORDERAB LES Final Result Performing Organization Address [facility] Co de Phone Number [facility] [address] [place] [phone] * BUN (Blood Urea Nitrogen) (09/22/2024 12:35 PM EST) Urea Nitrogen (BUN) 13 9 - 16 mg/dL [facility] 09/22/2024 12:3 5 PM EST 09/22/2024 12:35 PM EST us Generic External Data Provider LAB BLOOD ORDERAB LES Final Result Performing Organization Address [facility] Co de Phone Number [facility] [address] [place] [phone] documented in this encounter Visit Diagnoses Not on filedocumented in this encounter Additional Health Concerns Assessment Noted Time PHQ-9 Depression Total Score: 6 09/16/19 25 10:06 AM EST documented as of this encounter Care Teams Sr. Manager Corporate Communications Relationship Specialty Start Date End Date Mychal Fields MD [address] [place] [address] PCP - General Internal Medicine 04/30/14 Hima Fam FNP [address] [place] [address] Nurse Practitioner Family Medicine 08/01/23 documented as of this encounter
== END 2024-10-14 12:09 | disposition home or self-care (01) ==
PROVIDERS: PCP Internal Medicine; Visit Provider Student in an Organized Health Care Education/Training Program
DX: M17.0 Bilateral primary osteoarthritis of knee (principal); M79.7 Fibromyalgia
CPT/HCPCS: 20610; 99213

== ENCOUNTER → 2024-10-14 11:30 | Outpatient (BNVA) | payer MEDICAID, SELFPAY | PROVIDERS: PCP Internal Medicine; Visit Provider Student in an Organized Health Care Education/Training Program | DX: M17.0 Bilateral primary osteoarthritis of knee (principal); M79.7 Fibromyalgia | CPT/HCPCS: 20610; 99212; J7323 ==

== ENCOUNTER 2024-10-26 21:17 | Emergency (ER) | payer MEDICAID, SELFPAY ==
--- NOTE | ~2024-10-26 | CT_ITS ---
CLINICAL HISTORY: Mid abdominal pain CT abdomen and pelvis without contrast Comparison: CT/SR - CT ABDOMEN PELVIS W IV CON - 02/28/24 17:53 EDT Findings: No consolidation or effusion. The gallbladder is not visualized, presumed surgically absent. The solid organs are within normal limits. No renal stones. No bowel obstruction, pneumoperitoneum, or pneumatosis. Edema identified within the small bowel mesentery. Pelvic contents unremarkable. No bladder wall thickening. Minimal free fluid present within the pelvis. Normal appendix. The bones are intact. IMPRESSION: 1. Eczv-ov-wxqfskrj edema identified within the small bowel mesentery, possibly related to a nonspecific enteritis. The small bowel loops are at the upper limits of normal for size. No bowel obstruction demonstrated. 2. Minimal free fluid present dependently within the pelvis, possibly reactive or physiologic in etiology. This document has been electronically signed by: Cheo Nieves MD on 10/27/2024 03:13:38
[2024-10-26 21:22] VITALS: BP 158/84; PULSE 98; RESP 18; TEMP 36.5; O2SAT 98; BMI 35.5
[2024-10-26 21:57] LABS: Hematocrit 40.1 % (37.0-47.0); Hemoglobin 13.5 g/dl (12.0-16.0); Mean Corpuscular HGB Conc 33.7 g/dl (31.0-35.0); Mean Corpuscular Hemoglobin 29.3 pg (27.0-33.0); Mean Platelet Volume 9.2 fL (9.4-12.3); Platelet Count 306 X10*3/uL (160-400); Red Blood Count 4.61 X10*6/uL (4.20-5.50); Red Cell Distribution Width 13.1 % (11.0-16.0); White Blood Count 10.9 X10*3/uL (4.8-10.8)
[2024-10-26 21:58] LABS: Appearance Urine Turbid; Color Urine Dark Yellow; Glucose Urine UA Negative (Negative); Leukocyte Esterase Urine Small (1+) (Negative); Nitrite Urine Negative (Negative); Specific Gravity - Urine 1.025 (1.005-1.025); UMIC TRIGGER UA YES; Urine Blood Negative (Negative); Urine Ketones Trace mg/dL (Negative); Urine Protein 30 (1+) mg/dL (Neg-Trace)
[2024-10-26 22:09] LABS: Bacteria Urine 1+ (None Seen); Hyaline Casts Urine 0-2 /LPF (0-2); RBC Urine 0-2 /HPF (0-2); WBC Urine 0-5 /HPF (0-5)
[2024-10-26 22:12] LABS: Alanine Aminotransferase 13 U/L (0-31); Alkaline Phosphatase 120 U/L (39-117); Anion Gap 12 (12-20); Aspartate Amino Transferase 21 U/L (5-31); Bilirubin Direct < 0.2 mg/dL (0.0-0.5); Bilirubin Total 0.2 mg/dL (0.0-1.0); Blood Urea Nitrogen 14 mg/dL (9-16); Calcium 9.6 mg/dL (8.4-10.2); Carbon Dioxide 26 mmol/L (22-29); Chloride 107 mmol/L (96-108); Creatinine Clr Calc Pharmacy 79.6; Estimated Glomerular Filt Rate > 60; Glucose Random 156 mg/dL (60-115); Lipase 27 U/L (8-78); Potassium 4.4 mmol/L (3.3-5.1); Sodium 141 mmol/L (135-145); Total Protein 8.2 g/dL (6.5-8.0)
--- OUTSIDE RECORDS SUMMARY | 2024-10-27 01:33 | XMS_ITS | Encounter Summary ---
Author Organization [employer] Address [address] [place] [address] 7 [place] [address] Care Team Providers Care Plant Buyer Name Role Phone Mychal Fields MD Primary Care Provide r Hima Fam Unavailable Unavailable Reason for Visit * Reason Comments Med Refill Encounter Details Date Type Department Care Team (Late Contact Info) Description 10/05/2022 Refill [facility] MED[facility]INE [address] [place] [address] Hima Fam FNP Anxiety state Social History [...] Description 12/23/2024 1:00 PM EDT Office Visit [facility] [address] [place] [address] Mychal Fields MD [address] [place] [address] documented as of this encounter Visit Diagnoses Diagnosis Anxiety state Anxiety state, unspecified documented in this encounter Care Teams Plant Buyer Relationship Specialty Start Date End Date Mychal Fields [place] [address] PCP - General Internal Medicine 04/30/14 Hima Fam FNP [address] [place] [address] [place] [address] Nurse Practitioner Family Medicine 08/01/23 documented as of this encounter
--- OUTSIDE RECORDS SUMMARY | 2024-10-27 01:33 | XMS_ITS | Encounter Summary ---
Author Organization [employer] Address [address] [place] [address] 7t [place] [address] Care Team Providers Care Stained Glass Glazier Helper Name Role Phone Mychal Fields MD Primary Care Provide r Hima Fam Unavailable Unavailable Encounter Details Date Type Department Care Team (Late st Contact Info) Description 12/05/2022 Orders Only [facility] [address] [place], [place] [phone] Veda Isabel LPN Social History Tobacco Use [...] Description 12/23/2024 1:00 PM EDT Office Visit [facility] MEDICINE [address] [place], [place] [phone] Mychal Fields MD [address] [place], [place] [phone] documented as of this encounter Visit Diagnoses Not on filedocumented in this encounter Additional Health Concerns Assessment Noted Time PHQ-9 Depression Total Score: 7 10/09/19 23 4:00 PM EST documented as of this encounter Care Teams Stained Glass Glazier Helper Relationship Specialty Start Date End Date Mychal Fields MD [address] [place] [address] PCP - General Internal Medicine 04/30/14 Hima Fam FNP [address] [place] [address] Nurse Practitioner Family Medicine 08/01/23 documented as of this encounter
--- OUTSIDE RECORDS SUMMARY | 2024-10-27 01:33 | XMS_ITS | Encounter Summary ---
Author Organization [employer] Address [address] [place] [address] 7 [place] [address] Care Team Providers Care Assembler Aircraft Power Plant Name Role Phone Mychal Fields MD Primary Care Provide r Hima Fam Unavailable Unavailable Reason for Visit * Reason Onset Date Comments Bhavana Recall 10/03/2024 Encounter Details Date Type Department Care Team ([facility] Contact Info) Description 10/03/2024 Telephone [facility] MEDICINE [address] [place] [address] Mychal Fields MD [address] [place] [address] December Recall Social History Tobacco Use Types [...] [place] - 10/03/2024 3:37 PM EST T/C- Machine Cleaner Left Voice Mail to return call to schedule an appointment. Recall letter sent. Appointment: Office Visit Note: HTN Month: December With: Annalisa Please schedule appointment if Patient calls Back. documented in this encounter Plan of Treatment Upcoming Encounters Date Type Department Care Team (Late st Contact Info) Description 12/23/2024 1:00 PM EDT Office Visit [facility] MEDICINE [address] [place] [address] Mychal Fields MD [address] [place] [address] documented as of this encounter Visit Diagnoses Not on filedocumented in this encounter Additional Health Concerns Assessment Noted Time PHQ-9 Depression Total Score: 6 09/16/19 25 10:06 AM EST documented as of this encounter Care Teams Assembler Aircraft Power Plant Relationship Specialty Start Date End Date Mychal Fields MD [address] [place] [address] PCP - General Internal Medicine 04/30/14 Hima Fam FNP [address] [place] [address] Nurse Practitioner Family Medicine 08/01/23 documented as of this encounter
--- OUTSIDE RECORDS SUMMARY | 2024-10-27 01:33 | XMS_ITS | Encounter Summary ---
Author Organization [employer] Address [address] [place] [address] 7 [place] [address] Care Team Providers Care Qa Automation Developer Name Role Phone Mychal Fields MD Primary Care Provide r Hima Fam Unavailable Unavailable Reason for Visit * Reason Comments Med Refill Encounter Details Date Type Department Care Team ([facility] st Contact Info) Description 10/11/2024 Refill [facility] MEDICINE [address] [place] [address] Mychal Fields MD [address] [place], [place] [phone] Social History Tobacco Use Types Packs/Day Years [...] Description 12/23/2024 1:00 PM EDT Office Visit [facility] MEDICINE [address] [place] [address] Mychal Fields MD [address] [place] [address] documented as of this encounter Visit Diagnoses Not on filedocumented in this encounter Additional Health Concerns Assessment Noted Time PHQ-9 Depression Total Score: 6 09/16/19 25 10:06 AM EST documented as of this encounter Care Teams Qa Automation Developer Relationship Specialty Start Date End Date Mychal Fields MD [address] [place] [address] PCP - General Internal Medicine 04/30/14 Hima Fam FNP [address] [place] [phone] Nurse Practitioner Family Medicine 08/01/23 documented as of this encounter
--- OUTSIDE RECORDS SUMMARY | 2024-10-27 01:33 | XMS_ITS | Encounter Summary ---
Author Organization [employer] Address [address] [place] [address] 7t [place] [address] Care Team Providers Care Middle School Math Teacher Name Role Phone Mychal Fields MD Primary Care Provide r Hima Fam Unavailable Unavailable Reason for Visit * Reason Comments Med Refill Encounter Details Date Type Department Care Team (Late st Contact Info) Description 10/11/2024 Refill [facility] MEDICINE [address] [place] [address] Bette Wynn MD [address] [place] [address] Low vitamin D level Social History Tobacco [...] Description 12/23/2024 1:00 PM EDT Office Visit [facility] MEDICINE [address] [place] [address] My[place] Fields MD [address] [place] [address] documented as of this encounter Visit Diagnoses Diagnosis Low vitamin D level documented in this encounter Additional Health Concerns Assessment Noted Time PHQ-9 Depression Total Score: 6 09/16/19 25 10:06 AM EST documented as of this encounter Care Teams Middle [employer] Math Teacher Relationship Specialty Start Date End Date Mychal Fields MD [address] [place] [phone] PCP - General Internal Medicine 04/30/14 Hima Fam FNP [address] [place] [phone] Nurse Practitioner Family Medicine 08/01/23 documented as of this encounter
--- OUTSIDE RECORDS SUMMARY | 2024-10-27 01:33 | XMS_ITS | Encounter Summary ---
Author Organization [employer] Address [address] [place] [address] 7 [place] [address] Care Team Providers Care First Calender Worker Name Role Phone Mychal Fields MD Primary Care Provide r Hima Fam Unavailable Unavailable Reason for Visit * Reason Onset Date Comments Medication Question 09/18/2022 Appointment 09/18/2022 T/C placed to pt regarding to schedule her next follow up for psychopharmacology. Pt agrees to schedule for 10/09/22 @ 4pm. Encounter Details Date Type Department Care Team (Late st Contact Info) Description 09/18/2022 Telephone [facility] MEDICINE [address] [place], [place] [phone] Mychal Fields MD [address] [place], [place] [phone] Medication Question; Appointment (T/C placed to pt [...] know medication name . Please contact at [phone] documented in this encounter Plan of Treatment Upcoming Encounters Date Type Department Care Team (Late st Contact Info) Description 12/23/2024 1:00 PM EDT Office Visit [facility] MEDICINE [address] [place], [place] [phone] Mychal Fields MD [address] [place] [address] documented as of this encounter Visit Diagnoses Not on filedocumented in this encounter Care Teams First Calender Worker Relationship Specialty Start Date End Date Mychal Fields MD [address] [place] [address] PCP - General Internal Medicine 04/30/14 Hima Fam FNP [address] [place] [address] Nurse Practitioner Family Medicine 08/01/23 documented as of this encounter
--- OUTSIDE RECORDS SUMMARY | 2024-10-27 01:33 | XMS_ITS | Encounter Summary ---
Author Organization [employer] Address [address] [place] [address] [address] [place] [address] Care Team Providers Care Customs Examiner Name Role Phone Mychal Fields MD Primary Care Provide r Hima Fam Unavailable Unavailable Encounter Details Date Type Department Care Team (Late st Contact Info) Description 12/04/2022 Telephone [facility] MEDICINE [address] [place] [address] [phone] Mychal Fields MD [address] [place], [place] [phone] Social History Tobacco Use Types Packs/Day Years [...] Description 12/23/2024 1:00 PM EDT Office Visit [facility] MED[facility]INE [address] [place] [phone] My[place] Fields MD [address] [place], [place] [phone] documented as of this encounter Visit Diagnoses Not on filedocumented in this encounter Additional Health Concerns Assessment Noted Time PHQ-9 Depression Total Score: 7 10/09/19 23 4:00 PM EST documented as of this encounter Care Teams Customs Examiner Relationship Specialty Start Date End Date Mychal Fields MD [address] [place] [address] PCP - General Internal Medicine 04/30/14 Hima Fam FNP [address] [place] [address] Nurse Practitioner Family Medicine 08/01/23 documented as of this encounter
--- OUTSIDE RECORDS SUMMARY | 2024-10-27 01:33 | XMS_ITS | Encounter Summary ---
Author Organization [employer] Address [address] [place] [address] [place] [address] Care Team Providers Care Technology Methodology Consultant Name Role Phone Mychal Fields MD Primary Care Provide r Hima Fam Unavailable Unavailable Encounter Details Date Type Department Care Team (Late st Contact Info) Description 04/24/2023 Orders Only [facility] [address] [place] [phone] Zena Harley MD [address] [place] [address] [phone] Acquired clavicle deformity (Primary Dx) Social History [...] PM EDT Office Visit [facility] [address] [place] [address] [phone] Mychal Fields MD [address] [place] [address] [phone] Scheduled Orders Name Type Priority Associated Diagnoses [...] EDT Narrative 05/14/2023 4:45 PM EDT ? [facility] ?[address] ?[place] [address] ?XRay Report ? Signed ? Patient: Elaine Rodas ?MR#: [id number] ? : 1970 ?Acct:[id number] ? Age/Sex: 52 / F ?ADM Date: 05/14/23 ? Loc: HO.ED ? Attending Dr: ? Ordering Physician: Vee Castano NP ?? Date of Service: 05/14/23 ?? Procedure(s): XR chest 2V ?? Accession Number(s): [id number] ? cc: Mychal Long MD; Vee Castano [...] 05/14/231641 ? DD/ 23 ? TD/TT: ? Client Consultant: SUJ ? Procedure Note Didiermateojacoboparrishmallory, Image - 05/14/[address] [address] XRay Report Signed Patient: Elaine RodasMR#: [id number] : 1970Acct:[id number] Age/Sex: 52 / FADM Date: 05/14/23 Loc: HO.ED Attending Dr: Ordering Physician: Vee Castano NP Date of Service: 05/14/23 Procedure(s): XR chest 2V Accession Number(s): [id number] cc: Mychal Long MD; Vee Castano NP [...] in OV> 05/14/23 1642 DD/ 1624 TD/TT: Client Consultant: DORITA [facility] External Provider IMG XR PROCEDURES Edited Result - Final * XR Foot 3+ Views Right (05/10/2023 11:44 AM EDT) Anatomical Region Laterality Modality Lower Extremities, Foot Right Radiogra phic Imaging 05/10/2023 11:4 4 AM EDT Narrative 05/10/2023 12:08 PM EDT ?[facility] ?[address] ?[place] [address] ?XRay Report ? Signed ? Patient: [place],Elaine ?MR#: [id number] ? : 1970 ?Acct:[id number] ? Age/Sex: 52 / F ?ADM Date: 08/31/23 ? Loc: HO.HHCX ? Attending Dr: Mychal Long MD ? Ordering Physician: Mychal Long MD ?? Date of Service: 05/10/23 ?? Procedure(s): XR foot RT min 3V ?? Accession Number(s): [id number] ? cc: Mychal Long MD ? EXAMINATION: [...] 1205 ? DD/ 1144 ? TD/TT: ? Client Consultant: GR ? Procedure Note Yas Almodovar - 05/10/2023 [place] [address] XRay Report Signed Patient: Elaine RodasMR#: [id number] : 1970Acct:[id number] Age/Sex: 52 / FADM Date: 05/10/23 Loc: HO.HHCX Attending Dr: Mychal Long MD Ordering Physician: Mychal Long MD Date of Service: 05/10/23 Procedure(s): XR foot RT min 3V Accession Number(s): [id number] cc: Mychal Long MD EXAMINATION: XR FOOT, [...] spurs. No acute fracture. Dictated By: Rafat Tijreina MD Signed By: <Electronically signed by Rafat Tijerina MD in OV> 05/10/23 1205 DD/ 1144 TD/TT: Client Consultant: YULISSA us Mychal Morris MD IMG XR PROCEDURES Fin al Result * FL Esophagus Barium Swallow w/Air (05/08/2023 10:19 AM EDT) Anatomical Region Laterality Modality Head, Neck Radiographic Hilda ging 05/08/2023 10:1 9 AM EDT Narrative 05/08/2023 4:35 PM EDT ? [facility] ?[address] ?[place] [address] ? Fluoroscopy Report ? Signed ? Patient: lEaine Rodas ?MR#: [id number] ? : 1970 ?Acct:[id number] ? Age/Sex: 52 / F ?ADM Date: 05/08/23 ? Loc: HO.XRAY ? Attending Dr: Mychal Long MD ? Ordering Physician: Mychal Long MD ?? Date of Service: 05/08/23 ?? Procedure(s): FL barium swallow with air ?? Accession Number(s): [id number] ? cc: Mychal Long MD ? EXAMINATION: [...] 1632 ? DD/ 1019 ? TD/TT: ? Client Consultant: ? 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
--- OUTSIDE RECORDS SUMMARY | 2024-10-27 01:33 | XMS_ITS | Encounter Summary ---
Author Organization [employer] Address [address] [place] [address] 7 [place] [address] Care Team Providers Care Photostat Operator Name Role Phone Mychal Fields MD Primary Care Provide r Hima Fam Unavailable Unavailable Reason for Visit * Reason Onset Date Comments Appointment Request 12/04/2022 Encounter Details Date Type Department Care Team ([facility] Contact Info) Description 12/04/2022 Telephone [facility] [address] [place] [address] Mychal Fields MD [address] [place] [address] Appointment Request Social History Tobacco Use Types [...] ff/u Bp ) Please contact pt at [phone] * Telephone Encounter - Wesley Collins - 12/04/2022 2:02 PM EDT Tc from pt requesting to r/s appt on 10/19/22 ( ff/u Bp ) Please contact pt at [phone] documented in this encounter Plan of Treatment Upcoming Encounters Date Type Department Care Team (Late st Contact Info) Description 12/23/2024 1:00 PM EDT Office Visit [facility] 230 [facility] [place] [address] Mychal Fields MD [address] [place] [address] documented as of this encounter Visit Diagnoses Not on filedocumented in this encounter Additional Health Concerns Assessment Noted Time PHQ-9 Depression Total Score: 7 10/09/19 23 4:00 PM EST documented as of this encounter Care Teams Photostat Operator Relationship Specialty Start Date End Date Mychal Fields MD Jose Daniel [facility] [place] [address] PCP - General Internal Medicine 04/30/14 Hima Fam FNP [address] [place] [address] Nurse Practitioner Family Medicine 08/01/23 documented as of this encounter
--- OUTSIDE RECORDS SUMMARY | 2024-10-27 01:33 | XMS_ITS | Data Portability ---
Author Organization [place] [facility], Allergy Address [address] [address] Care Team Providers Care Batch Heat Treat Operator Name Role Phone GIACOMO MARX Primary Care [...] Time Details Appointments Establish ed 30 2024 09:00A M MADHU Mc MD Not available Not [...] observ ation record ed. [email or web address] [facility] [place] [address] [facility] [address], [place], [address], 02/25/2024 09:12:35 03/31/20 24 03/31/2024 US, neck, soft tissu e No observ ation [email or web address] [address] [facility], [place], [address], 04/11/2024 16:05:21 04/28/20 24 04/10/2024 clini bertha photo * No observ ation record ed. [email or web address] Not Available 17:00:02 04/29/20 24 05/08/2023 imagi ng/di agnos tic resul t No observ ation record ed. [email or web address] Not Available 21:42:28 Result Notes None recorded. Problems Name Problem SNOMED Code Status Onset Date Resolution Date Notes Provider Name and Address Organization Details Recorded Time Thyroid nodule 543786571 Active 2023 MADHU REYES MD 100 [facility] 100, [place], [address] , [place] - [facility] 4 16:36:38 Hypertrop hy of tonsils AND adenoids 61543620 Active 2023 MADHU REYES MD 100 [facility] 100, [place], [address] , [place] - [facility] 4 16:36:47 Hypertrop hy of lingual tonsil 791211392 Active 2023 MADHU REYES MD 100 [facility],[place] [address], [place], [address] , [place] - [facility] 4 16:36:52 Non-toxic uninodula r goiter 948248935 Active 2023 Nontoxic single thyroid nodule; Note: Date Diagnosed : 01/18/2024 11:58 AM (E04.1) Not Available [facility] 4 02:45:01 Mass of neck 621995275 Active 2023 Localized swelling, mass and lump, neck; Note: Date Diagnosed : 11/08/2023 11:56 AM (R22.1) Not Available [facility] 4 02:45:02 Neck swelling 599508962 Active 2023 Localized swelling, mass and lump, neck; Note: Date Diagnosed : 11/08/2023 11:56 AM (R22.1) Not Available [facility] 4 02:45:02 Neck pain 03225174 Active 2023 Cervicalg ia; Note: Date Diagnosed : 11/08/2023 11:56 AM (M54.2) Not Available [facility] 4 02:45:02 Dysphagia 27054633 Active 2023 Dysphagia , unspecifi ed; Note: Date Diagnosed : 11/08/2023 11:56 AM (R13.10) Not Available [facility] 4 02:45:05 Obstructi ve sleep apnea of adult 51373838162 03 Active 2023 MADHU REYES MD 100 [facility] 100, [place], [address] , [place] - [facility] 4 08:48:15 Seasonal allergic rhinitis 360021593 Active 2023 MADHU REYES MD 100 [facility] 100, [place], [address] , [place] [facility] 4 08:52:06 Allergic rhinitis 21963830 Active 2023 MADHU REYES MD 100 [facility],[place] [address], [place], [address] , [place] [facility] 4 08:52:17 Non-aller gic rhinitis 07378140915 1 Active 2023 MADHU REYES MD 100 [facility],[place] [address], [place], [address] , [facility] - [facility] 4 08:52:17 Problem Notes None recorded. Procedures Surgical History Date Name Laterality Status Provider Name and Address Organization Details Recorded Time 4 LARYNGOSCOPY, DIRECT OPERATIVE WITH OPERATING MICROSCOPE OR TELESCOPE WITH BIOPSY (SURG) completed Paulo Faria [place] - [facility] 04/14/2024 09:38:40 4 FFL_RE completed MADHU REYES MD 100 [facility],[place] [address], [place], [address], [facility] - [facility] 03/18/2024 17:33:49 Imaging Results Imaging Date Name Status LastModified by Organiz ation Details LastModified Time 02/19/2024 US, thyroid completed [email or web address] [facility] [place] [address] [facility] [address], [place], [address], 02/25/2024 09:12:35 03/31/2024 US, neck, soft tissue completed [facility] (Imaging) [address] [place], [address], 04/11/2024 16:05:21 04/10/2024 clinical photo* completed [email or web address] [...] % eye drops active Medicatio n ID: [id number] Br and Name: latanopro st Send Method: E-Prescri bed Subs Allowed: subs OK Specia l Instructi on: PUT 1 DROP INTO BOTH EYES AT BEDTIME M edication GenericNa me: latanopro st Not Available Not Available Not Available terconazol e 0.4 % vaginal cream active Medicatio n ID: [id number] Br and Name: terconazo le Send Method: [...] 8.6 mg tablet active Medicatio n ID: [id number] Br and Name: senna Sen d Method: [...] 500 mg tablet active Medicatio n ID: [id number] Br and Name: valacyclo vir Send Method: [...] 50 mg tablet active Medicatio n ID: [id number] Br and Name: tramadol Send Method: E-Prescri bed Subs Allowed: subs OK Specia l Instructi on: TAKE 1 TABLET BY MOUTH EVERY 6 HOURS NEEDED FOR PAIN Medi cationGen ericName: tramadol Not Available Not Available Not Available ketorolac 0.5 % eye drops active Medicatio n ID: [id number] Br and Name: ketorolac Send Method: E-Prescri [...] 20 mg tablet active Medicatio n ID: [id number] Br and Name: dicyclomi ne Send Method: [...] 10 mg tablet active Medicatio n ID: [id number] Br and Name: buspirone Send Method: E-Prescri [...] 100 mg capsule active Medicatio n ID: [id number] Br and Name: gabapenti n Send Method: [...] 1 mg tablet active Medicatio n ID: [id number] Br and Name: varenicli ne Send Method: E-Prescri bed Subs Allowed: subs OK Specia l Instructi on: TAKE 1 TABLET BY MOUTH TWICE A DAY WITH GLASS OF WATER AFTER MEALS Med icationGe nericName : varenicli ne Not Available Not Available Not Available diclofenac 1 % topical gel active Medicatio n ID: [id number] Br and Name: diclofena c sodium Se [...] capsule,de layed release active Medicatio n ID: [id number] Br and Name: Creon Sen d Method: E-Prescri bed Subs Allowed: subs OK Specia l Instructi on: TAKE 1 CAPSULE BY MOUTH 4 TIMES A DAY. ADMINISTE R WITH MEALS AND OR SNACKS Me dicationG enericNam e: Creon Not Available Not Available Not Available blood pressure test kit-large cuff active Medicatio n ID: [id number] Br and Name: blood pressure test kit-large Send Method: E-Prescri bed Subs Allowed: subs OK Specia l Instructi on: USE TO CHECK BLOOD PRESSURE ONCE DAILY IN THE MORNING M edication GenericNa me: blood pressure test kit-large Not Available Not Available Not Available Dexilant 60 mg capsule, delayed release active Medicatio n ID: [id number] Br and Name: Dexilant Send Method: E-Prescri [...] Updated DateTime 03/18/2024 160.02 cm 36.8 kg/m2 98035.21 g Kodi Soni [place] [facility] 03/18/2024 16:16:00 Date Recorded Body height Body mass index (BMI) Body weight Provider Name and Address Organization Details Last Updated DateTime 04/25/2024 160.02 cm 36.8 kg/m2 62151.21 g Janeth Castro [facility] 04/25/2024 15:19:15 Date Recorded Body height Body mass index (BMI) Body weight Provider Name and Address Organization Details Last Updated DateTime 07/30/2024 160.02 cm 36.8 kg/m2 29030.21 g Marley Santamaria [facility] 07/30/2024 08:31:21 Social History None recorded. [...] Note [id number] MADHU REYES MD [facility] [address] [address] 03/18/2024 15:41:26 03/18/2024 17:01:09 Thyroid nodule 868186275 E04.1 I recommend a US guided FNA of the thyroid nodule. She will f/u to review. Hypertroph y of tonsils AND adenoids 04235118 J35.3 hypertroph y of Waldeyer's ring. lingual tonsil biopsy is less morbid to evaluate for lymphoma. see below. Hypertroph y of lingual tonsil 368646491 J35.3 I recommend direct laryngosco py with [...] We will schedule surgery mutually convenient time. [id number] MADHU REYES MD [facility] [address] [place] [address] 04/25/2024 15:12:06 04/30/2024 07:57:22 Hypertrophy of lingual tonsil 193959081 J35.3 Hypertroph y of tonsils AND adenoids 04446935 J35.3 Neck pain 05597184 M54.2 [id number] MADHU REYES MD [facility] 100 [place] [address] 07/30/2024 08:28:17 07/30/2024 08:55:15 Hypertrophy of lingual tonsil 256352974 J35.3 Biopsies negative. Gave reassuranc e. Continue observatio n. Deferred laryngosoc py today. Obstructiv e sleep apnea of adult 1414288000 103 G47.33 Agree with starting CPAP which is in process. Thyroid nodule 833531713 E04.1 Recommend repeat thyroid US at [facility] after next visit in 6 months. Seasonal a llergic rhinitis 692778645 J30.2 Exam and history are consistent with allergic rhinitis. We will obtain allergy testing to clarify the extent of allergy with f/u to review. Allergic rhinitis 183538 04 J30.9 Non-allergic rhinitis 31 41044637 01 J31.0 Health Concerns Section Related Observation LastModified by Organization Detai ls LastModified Time None Recorded Concern Status LastModified by Organization Details LastModified Time None Recorded Advance Directives Directive None Recorded Payers Encounter Date Sequence Insurance Name Policy Number Policy Tompkins Covered Member ID Tompkins Member ID Guarantor Name 03/18/2024 1 [place] [facility] [id number] Elaine Rodas 04/25/2024 1 [place] [facility] Rodas [id number] Elaine Rodas 07/30/2024 1 [place] [employer] [facility] Rodas [id number] Elaine Rodas Notes Date Note Type Note [...] by her other doctors. MADHU REYES MD [address] [place] [address], [address], [place] - [facility] 03/18/2024 17:45:03 04/25/2024 text/html 53-year-old fema nidia presents following DL with biopsy. She continues to have mild sore throat but no bleeding. Biopsy was done due to hypertrophy of Waldeyer's ring on imaging. MADHU REYES MD [address] [place] [address],[address], [address], [place] - [facility] 04/29/2024 10:01:40 07/30/2024 text/html Hx of hypertroph [...] allergies with marginal benefit. MADHU REYES MD [address] [place] [address], [place], [address], [place] [facility] 07/30/2024 08:52:32 OBGyn Episode No OBEpisode recorded.
--- OUTSIDE RECORDS SUMMARY | 2024-10-27 01:33 | XMS_ITS | Encounter Summary ---
Author Organization [employer] Address [address] [place] [address] [address] Care Team Providers Care Food Packer Name Role Phone Mychal Fields MD Primary Care Provide r Hima Fam Unavailable Unavailable Reason for Visit * Reason Comments Med Change Request Encounter Details Date Type Department Care Team (Late st Contact Info) Description 10/19/2022 Refill [facility] [address] [place] [address] Mychal Fields MD [address] [place] [address] [phone] Fibromyalgia Social History Tobacco Use Types Packs/Day [...] Description 12/23/2024 1:00 PM EDT Office Visit [facility] [address] [place] [address] [phone] Mychal Fields MD [address] [place] [address] [phone] documented as of this encounter Visit Diagnoses Diagnosis Fibromyalgia Unspecified myalgia and myositis documented in this encounter Additional Health Concerns Assessment Noted Time PHQ-9 Depression Total Score: 7 10/09/19 23 4:00 PM EST documented as of this encounter Care Teams Food Packer Relationship Specialty Start Date End Date Mychal Fields MD [address] [place] [address] PCP - General Internal Medicine 04/30/14 Hima Fam FNP [address] [place] [address] Nurse Practitioner Family Medicine 08/01/23 documented as of this encounter
--- OUTSIDE RECORDS SUMMARY | 2024-10-27 01:33 | XMS_ITS | Encounter Summary ---
Author Organization [employer] Address [address] [place] [address] [address] Care Team Providers Care Household Coordinator Name Role Phone Mychal Fields MD Primary Care Provide r Hima Fam Unavailable Unavailable Reason for Visit * Reason Comments Pre-op Exam Date of Surgery: 08/04Surgical procedure being done: Cataracts right ey Encounter Details Date Type Department Care Team (Late st Contact Info) Description 10/06/2024 1:15 PM EST Office Visit [facility] [address] [place] [address] Nabeel Magana MD [address] [place] [address] Pre-op evaluation (Primary Dx) Social History Tobacco [...] AN EMPTY STOMACH 180 tablet 0 rizatriptan PAPERHANGER APPRENTICE (Maxalt-PAPERHANGER APPRENTICE) 5 MG disintegrating tablet PLEASE SEE ATTACHED [...] Description 12/23/2024 1:00 PM EDT Office Visit [facility] [address] [place] [address] Mychal Fields MD [address] [place] [address] documented as of this encounter Visit Diagnoses Diagnosis Pre-op evaluation- Primary documented in this encounter Additional Health Concerns Assessment Noted Time PHQ-9 Depression Total Score: 6 09/16/19 25 10:06 AM EST documented as of this encounter Care Teams Household Coordinator Relationship Specialty Start Date End Date Mychal Fields MD [address] [place] [address] PCP - General Internal Medicine 04/30/14 Hima Fam FNP [address] [place] [address] Nurse Practitioner Family Medicine 08/01/23 documented as of this encounter
--- OUTSIDE RECORDS SUMMARY | 2024-10-27 01:34 | XMS_ITS | Encounter Summary ---
Author Organization [employer] Address [address] [place] [address] [address] [place] [address] Care Team Providers Care Embroidery Designer Name Role Phone Mychal Fields MD Primary Care Provide r Hima Fam Unavailable Unavailable Encounter Details Date Type Department Care Team (Late Contact Info) Description 06/11/2023 Orders Only [facility] [address] [place], [place] [phone] Veda Isabel LPN Social History Tobacco Use [...] EDT Office Visit [facility] [address] [place], [place] [phone] Mychal iFelds MD [address] [place], [place] [phone] documented as of this encounter Visit Diagnoses Not on filedocumented in this encounter Additional Health Concerns Assessment Noted Time PHQ-9 Depression Total Score: 0 05/10/20 23 10:38 AM EDT documented as of this encounter Care Teams Embroidery Designer Relationship Specialty Start Date End Date Mychal Fields MD [address] [place] [address] PCP - General Internal Medicine 04/30/14 Hima Fam FNP [address] [place] [address] Nurse Practitioner Family Medicine 08/01/23 documented as of this encounter
--- OUTSIDE RECORDS SUMMARY | 2024-10-27 01:34 | XMS_ITS | Clinical Summary ---
Author Organization [employer] Address [address] [place] [address] 7 [place] [address] Care Team Providers [employer] Name Role Phone Mychal Fields MD Primary [...] 1 vial in the morning. 1 kit 023 Active pantoprazole (ProtoNix) 20 MG EC tablet TAKE 1 TABLET BY MOUTH 2 TIMES EVERY DAY ON AN EMPTY STOMACH 180 tablet 023 Active Diclofenac Sodium 1 % gelIndications:Ac quired clavicle deformity Apply topically to affected area four times daily as needed 150 g 023 Active valACYclovir (Valtrex) 500 MG tablet 1 tablet twice a day x 3 days prn outbreak 30 tablet 2 023 Active gabapentin (Neurontin) 100 MG capsuleIndication s:Fibromyalgia TAKE 1 CAPSULE BY MOUTH EVERY 8 HOURS 90 capsule 024 Active minoxidil (Loniten) 2.5 MG tabletIndications :Androgenic alopecia Take 1 tablet (2.5 mg) by mouth in the morning. 30 tablet 11 024 2024 Active varenicline (Chantix) 1 MG tabletIndications :Smoker TAKE 1 TABLET BY MOUTH TWICE A DAY WITH GLASS OF WATER AFTER MEALS 56 tablet 1 Active hydrOXYzine HCl (Atarax) 25 MG tabletIndications :Anxiety and depression Take 1 tablet (25 mg) by mouth every 6 (six) hours if needed for anxiety. 200 tablet 5 Active albuterol 108 (90 Base) MCG/ACT inhalerIndication s:Wheeze Inhale 2 puffs every 4 (four) hours if needed for wheezing or shortness of breath. 18 g 3 Active cyclobenzaprine (Flexeril) 10 MG tabletIndications :Chronic thoracic back pain, unspecified back pain laterality Take 1 tablet (10 mg) by mouth 3 times daily for 10 days. 30 tablet Active estradiol (Estrace) 0.1 MG/GM vaginal creamIndications: Atrophic vaginitis Insert 1 g vaginally twice a week 42.5 g Active lidocaine (Lidoderm) 5 % patchIndications: Chronic midline low back pain without sciatica APPLY 1 PATCH TOPICALLY TO SKIN IN THE MORNING. LEAVE ON FOR 12 HOURS AND OFF FOR 12 HOURS DIRECTED 30 patch 3 Active losartan (Cozaar) 100 MG tablet TAKE 1 TABLET BY MOUTH EVERY DAY 90 tablet 2 Active Arnuity Ellipta 100 MCG/ACT inhaler Inhale 1 puff Once per day. Active busPIRone (Buspar) 10 MG tablet Take 1 tablet by mouth if needed in the morning, at noon, and at bedtime (anxiety). Active Emgality 120 MG/ML auto-injector Inject 120 mg under the skin every 30 (thirty) days. Active nicotine polacrilex (Nicorette) 2 MG gum Chew 2 mg every 2 (two) hours if needed. Active rizatriptan ASPHALT PATCHER (Maxalt-ASPHALT PATCHER) 5 MG disintegrating tablet PLEASE SEE ATTACHED FOR DETAILED DIRECTIONS Active amLODIPine (Norvasc) 10 MG tabletIndications :Essential hypertension TAKE 1 TABLET BY MOUTH EVERY DAY 90 tablet 024 Active zolpidem (Ambien) 10 MG tabletIndications :Anxiety and depression TAKE 1 TABLET BY MOUTH EVERY DAY AT BEDTIME NEEDED FOR SLEEP 30 tablet 025 Active clonazePAM (KlonoPIN) 1 MG tabletIndications :Anxiety and depression TAKE 1 TABLET (1 MG) BY MOUTH NEEDED IN THE MORNING AT AT NOON AND AT BEDTIME FOR ANXIETY 90 tablet 025 Active cholecalciferol (D3) 50 MCG (2000 UT) tabletIndications :Low vitamin D level TAKE 1 TABLET BY MOUTH EVERY DAY 90 tablet 025 Active fluticasone (Flonase) 50 MCG/ACT nasal spray SHAKE BEFORE FIRST USE PRIME AFTER USE CLEAN TIP 1 SPRAY INTO EACH NOSTRIL TWICE A DAY 48 mL 025 Active fluticasone (Flonase) 50 MCG/ACT nasal spray SHAKE BEFORE FIRST USE PRIME AFTER USE CLEAN TIP 1 SPRAY INTO EACH NOSTRIL TWICE A DAY 48 mL 024 2024 Discontinued(R eorder (will not trigger notification to Pharmacy)) cholecalciferol (D3) 50 MCG (1999 UT) tabletIndications :Low vitamin D level TAKE 1 TABLET BY MOUTH EVERY DAY 90 tablet 024 2024 Discontinued Active Problems Problem Noted Date [...] was evaluated by Dr. Wynn at our [facility] who recommended to check D dimer given [...] We are trying to get her to [facility] before the lab and xray close [...] reports she has completed thyroid ultrasound at [facility], notes not available at this time [...] EDT): Pelvis exam indicative of this Plan: [employer] referral Right foot pain 05/10/2023 Assessment & [...] NSAIDS Patient was eventually seen at [facility] neurology 04/04/2024. They recommended [...] no good results, cannot tolerate NSAIDS [facility] neurology is not accepting new patients at the moment. Will try to refer to a different Neurologist perhaps at [facility] Assessment & Plan (01/17/2024 1:06 PM [...] also be referring to Neurology at [facility] Assessment & Plan (04/03/2023 [...] recently retired Pt has a therapist at [facility] I recommended she speak with therapist [...] necessary. For any issues or concerns, contact [facility]. All her questions were answered and [...] used to be under the care of real estate specialist who had been prescribing Baclofen Assessment [...] used to be under the care of real estate specialist who had been prescribing tramadol 100mg [...] without neural impingement. Pt was seen at [facility] 04/2023 and has a follow up [...] without neural impingement. Pt was seen at [facility] recently has a follow up recommended [...] neural impingement. Pt will be referred to [facility] Smoker 02/21/2012 Assessment & Plan (04/03/2023 1:41 PM EDT): Pt smoking 1 ppd. Enmanuel has used it in the past with [...] Type Department Care Team Description 10/11/2024 Refill [facility] [address] [place] [address] Mychal Fields MD 10/11/2024 Refill [facility] [address] [place] [address] Bette Wynn MD Low vitamin D level 10/06/2024 1:15 PM EST Office Visit [facility] [address] [place] [address] Nabeel Magana MD Pre-op evaluation (Primary Dx) 10/06/2024 Refill [facility] [address] [place] [address] Mychal Fields MD Anxiety and depression 10/06/2024 Travel 10/03/[address] [address] Mychal Fields MD December09/22/2024 Orders Only GENERIC EXTERNAL DATA DEPARTMENT Provider, Generic External Data 09/18/[address] [address] Mychal Fields MD PRE OP 09/16/2024 10:00 AM EST Office Visit [address] [address] Mychal Fields MD JERRI (obstructive sleep apnea) (Primary Dx); Abnormal CT of the chest; Essential hypertension; Microscopic hematuria; Fibromyalgia; Subacute cough; Restrictive lung disease; Enlarged lymph nodes; Preventative health care 09/16/[address] [address] Mychal Fields MD Appointment Request 09/16/2024 Orders Only GENERIC EXTERNAL DATA DEPARTMENT Provider, Generic External Data 09/16/[address] [address] Mychal Fields MD Appointment Request 09/16/2024 Travel 09/11/2024 Refill [facility] [address] [place] [address] Claudette Nassar MD Anxiety and depression 09/04/[address] [address] Mychal Fields MD Chart Prep 08/25/[address] [address] Toño Lim [place] Lab order D-Dimer STAT 08/15/[address] [address] Margarita Reagan RN Lab Orders (STAT D-Dimer) 08/12/2024 Refill [facility] [address] [place] [address] Mychal Fields MD Anxiety and depression 08/11/2024 Refill [facility] [address] [place] [phone] Cinthya Dover ANP Essential hypertension 08/05/2024 5:20 PM EST Office Visit [facility] [address] [place] [phone] Bette Wynn MD Cough in adult patient (Primary Dx) 08/05/2024 Orders Only GENERIC EXTERNAL DATA DEPARTMENT Provider, Generic External Data 08/05/2024 Travel 08/05/[address] [address] Mychal Fields MD Nurse Triage from Last 3 Months Immunizations Name Administration [...] Description 12/23/2024 1:00 PM EDT Office Visit [facility] [address] [place] [address] Mychal Fields MD [address] [place], [place] [phone] Health Maintenance Due Date Last Done Comments [...] Vaccines (1 of 2) 2020 COVID-19 Vaccine (4 - season) 2024 06/20/2022, 06/20/2022, 05/17/2021 Influenza Vaccine (#1) 2024 , 09/08/2021, 06/09/2020, Additional history exists SDOH Screening 05/15/2025 05/15/2024 Lipid Panel 06/17/2025 06/17/2020 Depression Screening 09/16/2025 09/16/2024, 09/16/19 25 Mammogram 09/24/2025 09/24/2023, 12/17/2018 Tobacco Screening 10/06/2025 [...] 5:30 PM EST Cough in adult patient BI MAMMOGRAM SCREENING TOMOSYNTHESIS BILATERAL Routine 09/24/2023 [...] EST Narrative 09/24/2024 9:59 AM EST ? [facility] ?[address] ?[place] [address] ?XRay Report ? Signed ? Patient: Clark,Elaine ?MR#: [id number] ? : 1970 ?Acct:[id number] ? Age/Sex: 53 / F ?ADM Date: 09/22/24 ? Loc: HO.XRAY ? Attending Dr: Syed Coreas MD ? Ordering Physician: Brigid West MD ?? Date of Service: 09/22/24 ?? Procedure(s): XR knee RT 4V ?? Accession Number(s): [id number] ? cc: Brigid West MD; Mychal Long [...] DD/ 1250 ? TD/TT: 09/22/24 1312 ? Transportation Design Engineer: MSM ? Procedure Note Nishi, Yas - 09/24/[address] [place] [address] XRay Report Signed Patient: Elaine RodasMR#: [id number] : 1970Acct:[id number] Age/Sex: 53 / FADM Date: 09/22/24 Loc: CHAPARR[facility] Attending Dr: Syed Coreas MD Ordering Physician: Brigid West MD Date of Service: 09/22/24 Procedure(s): XR knee RT 4V Accession Number(s): [id number] cc: Brigid West MD; Mycahl Long MD EXAMINATION: XR KNEE, RIGHT CLINICAL [...] 09/24/24 0956 DD/ 1250 TD/TT: 09/22/24 1312 Transportation Design Engineer: GARY [facility] External Provider IMG XR PROCEDURES Final Result * XR Knee 4+ Views Left (09/22/2024 12:50 PM EST) Anatomical Region Laterality Modality Lower Extremities, Knee Left [facility] 09/22/2024 12:5 0 PM EST Narrative 09/24/2024 10:01 AM EST ? [facility] ?[address] ?[place] [address] ?XRay Report ? Signed ? Patient: Clark,Elaine ?MR#: [id number] ? : 1970 ?Acct:[id number] ? Age/Sex: 53 / F ?ADM Date: /13/25 ? Loc: HO.XRAY ? Attending Dr: Syed Coreas MD ? Ordering Physician: Brigid West MD ?? Date of Service: 09/22/24 ?? Procedure(s): XR knee LT 4V ?? Accession Number(s): [id number] ? cc: Brigid West MD; Mychal Long [...] DD/ 1250 ? TD/TT: 09/22/24 1312 ? Transportation Design Engineer: MSM ? Procedure Note Donartieter, Image - 09/24/[address] [address] XRay Report Signed Patient: Sebas Rodas#: [id number] : 1970Acct:[id number] Age/Sex: 53 / FADM Date: 09/22/24 Loc: [facility] Attending Dr: Syed Coreas MD Ordering Physician: Brigid West MD Date of Service: 09/22/24 Procedure(s): XR knee LT 4V Accession Number(s): [id number] cc: Brigid West MD; Mychal Long MD [...] 09/24/24 0959 DD/ 1250 TD/TT: 09/22/24 1312 Transportation Design Engineer: GARY [facility] External Provider IMG XR PROCEDURES Final Result * XR Chest 2 Views (09/22/2024 12:50 PM EST) Anatomical Region Laterality Modality Chest Radiographic Hilda ging 09/22/2024 12:5 0 PM EST Narrative 09/24/2024 10:02 AM EST ? [facility] ?[address] ?[place] [address] ?XRay Report ? Signed ? Patient: Clark,Elaine ?MR#: [id number] ? : 1970 ?Acct:[id number] ? Age/Sex: 53 / F ?ADM Date: 01/13/25 ? Loc: HO.XRAY ? Attending Dr: Syed Coreas MD ? Ordering Physician: Mychal Long MD ?? Date of Service: 09/22/24 ?? Procedure(s): XR chest 2V ?? Accession Number(s): [id number] ? cc: Mychal Long MD ? EXAMINATION: [...] DD/ 1250 ? TD/TT: 09/22/24 1312 ? Transportation Design Engineer: MSM ? Procedure Note Donnoel, Image - 09/24/[address] [address] XRay Report Signed Patient: Elaine RodasMR#: [id number] : 1970Acct:[id number] Age/Sex: 53 / FADM Date: 09/22/24 Loc: JESUSITA.TAD Attending Dr: Syed Coreas MD Ordering Physician: Mychal Long MD Date of Service: 09/22/24 Procedure(s): XR chest 2V Accession Number(s): [id number] cc: Mychal Long MD EXAMINATION: XR CHEST [...] 09/24/24 0959 DD/ 1250 TD/TT: 09/22/24 1312 Transportation Design Engineer: MSM us Mychal Morris MD IMG XR PROCEDURES Fin al Result * Syphilis Screen (09/22/2024 12:35 PM EST) Syphilis Screen Nonreactive Nonreactive [facility] 09/22/2024 12:3 5 PM EST 09/22/2024 12:35 PM EST us Generic External Data Provider LAB BLOOD ORDERAB LES Final Result Performing Organization Address [facility] Co de Phone Number [facility] [address] [place] [phone] * Hepatitis C Ab (09/22/2024 12:35 PM EST) Hepatitis C Antibody Nonreactive Nonreactive [facility] Comment:Antibodies to HCV no t detected; does not exclude early acuteHCV infection. 09/22/2024 12:3 5 PM EST 09/22/2024 12:35 PM EST Generic External Data Provider LAB BLOOD ORDERAB LES Final Result Performing Organization Address [facility] Co de Phone Number [facility] [address] [place] [phone] * Creatinine, Serum (09/22/2024 12:35 PM EST) Only the most recent of2 resultswithin the time period is included. Creatinine, Serum 0.89 0.5 - 1.4 mg/dL [facility] Estimated Glomerular Filt Rate >60 [facility] Comment:Chronic Kidney Disea se: Estimated GFR < 60 mL/min/[id number] Kidney Disease: Estimated GFR < 15 mL/min/1.73m2 09/22/2024 12:3 5 PM EST 09/22/2024 12:35 PM EST Generic External Data Provider LAB BLOOD ORDERAB LES Final Result Performing Organization Address [facility] Co de Phone Number [facility] [address] [place] [phone] * Hepatitis B surface antigen, EIA (09/22/2024 12:35 PM EST) Hepatitis B Surface Ag Negative Negative [facility] 09/22/2024 12:3 5 PM EST 09/22/2024 12:35 PM EST [facility] External Data Provider LAB BLOOD ORDERAB LES Final Result Performing Organization Address [facility] [place] Number [facility] [address] [place] [phone] * HIV-1/2 Antigen and Antibodies, Fourth Generation, with Reflexes (09/22/2024 12:35 PM EST) HIV AB/AG Nonreactive Nonreactive [facility] Comment:HIV-1 p24 Ag and/or HIV-1/HIV-2 Ab not detected.A test result that is nonreactive does not exclude thepossibility of exposure to or infection with HIV-1 and/orHIV-2. Nonreactive results in this assay for individualswith prior exposure to HIV-1 and/or HIV-2 may be due toantigen and antibody levels that are below the limit ofdetection of this assay.The Allurentnity HIV Ag/Ab Combo assay result andsupplemental assay results should be interpreted inconjunction with the patient's clinical presentation,history and other laboratory results. If the results areinconsistent with clinical evidence, additional testing issuggested to confirm the result. 09/22/2024 12:3 5 PM EST 09/22/2024 12:35 PM EST Generic External Data Provider LAB BLOOD ORDERAB LES Final Result Performing Organization Address [facility] Co de Phone Number [facility] [address] [place] [phone] * BUN (Blood Urea Nitrogen) (09/22/2024 12:35 PM EST) Only the most recent of2 resultswithin the time period is included. [facility] Urea Nitrogen (BUN) 13 9 - 16 mg/dL [facility] 09/22/2024 12:3 5 PM EST 09/22/2024 12:35 PM EST us Generic External Data Provider LAB BLOOD ORDERAB LES Final Result Performing Organization Address [facility]/ZIP Co de Phone Number [facility] [address] [place] [phone] * D Dimer High Sensitivity (09/16/2024 11:09 AM EST) [facility] D Dimer High Sensitivity 203 NG/ML [facility] Comment:D-DIMER HS REFERENCE RANGENote: Our [...] Morris MD LAB BLOOD ORDERABLES Final Result [facility] [address] [place] [phone] * High Sensitivity Troponin I (08/05/2024 6:21 PM EST) [facility] TROPONIN I HIGH SENSITIVITY <2.7 <3.5 - 17.0 ng/L [facility] Comment:The Hernandez high sens itivity Troponin-I results should beused in conjunction with other diagnostic information suchas ECG, clinical observations and information, and patientsymptoms to aid in the diagnosis of SD. 08/05/2024 6:21 PM EST 08/05/2024 6:24 PM EST us Generic External Data Provider LAB BLOOD ORDERAB LES Final Result [facility] [address] [place] [phone] * (ABNORMAL) CBC auto differential (08/05/2024 6:21 PM EST) White Blood Count 8.2 4.8 - 10.8 X10*3/uL [facility] Red Blood Count 4.26 4.20 - 5.50 X10*6/uL [facility] Hemoglobin 12.5 12.0 - 16.0 g/dl [facility] Hematocrit 37.0 37.0 - 47.0 % [facility] Mean Corpuscular Volume 86.9 80.0 - 98.0 fL [facility] Mean Corpuscular Hemoglobin 29.3 27.0 - 33.0 pg [facility] Mean Corpuscular HGB Conc 33.8 31.0 - 35.0 g/dl [facility] Red Cell Distribution Width 12.9 11.0 - 16.0 % [facility] Platelet Count 269 160 - 400 X10*3/uL [facility] Mean Platelet Volume 9.6 9.4 - 12.3 fL [facility] Neutrophils Percent Auto 47.3 45 - 73 % [facility] Imm Gran Pct Auto 0.2 0.0 - 0.4 % [facility] Lymphocytes Percent Auto 45.0(H) 20 - 40 % [facility] Monocytes Percent Auto 4.5 2 - 11 % [facility] Eosinophils Percent Auto 2.3 0 - 4 % [facility] Basophils Percent Auto 0.7 0 - 2 % [facility] NRBC Pct Auto 0.0 0.0 - 0.2 /100WBC [facility] Neutrophils Absolute Auto 3.9 2.0 - 8.3 x10*3/uL [facility] Imm Gran Abs Auto 0.02 0.00 - 0.03 X10*3/uL [facility] Lymphocytes Absolute Auto 3.7 1.2 - 4.9 X10*3/uL [facility] Monocytes Absolute Auto 0.4 0.1 - 1.2 X10*3/uL [facility] Eosinophils Absolute Auto 0.2 0.0 - 0.4 X10*3/uL [facility] Basophils Absolute Auto 0.1 0.0 - 0.2 X10*3/uL [facility] NRBC Abs Auto 0.000 0.0 - 0.012 X10*3/uL [facility] 08/05/2024 6:21 PM EST 08/05/2024 6:24 PM EST us Generic External Data Provider LAB BLOOD ORDERAB LES Final Result Performing Organization Address [facility] de Phone Number [facility] [address] [place] [phone] * Prothrombin Time-INR (08/05/2024 6:21 PM EST) Prothrombin Time 10.9 10.9 - 12.4 SEC [facility] INTERNATIONAL NORM RATIO 0.9 0.9 - 1.1 [facility] Comment:INTERNATIONAL NORMAL IZED RATIO (INR) [...] ORDERAB LES Final Result Performing Organization Address [facility] Co de Phone Number [facility] [address] [place] [phone] * (ABNORMAL) Comprehensive Metabolic Panel (08/05/2024 6:21 PM EST) Sodium 139 135 - 145 mmol/L [facility] Potassium 3.9 3.3 - 5.1 mmol/L [facility] Chloride 105 96 - 108 mmol/L [facility] Carbon Dioxide 29 22 - 29 mmol/L [facility] Anion Gap 9(L) 12 - 20 [facility] Urea Nitrogen (BUN) 11 9 - 16 mg/dL [facility] Creatinine, Serum 0.86 0.5 - 1.4 mg/dL [facility] Creatinine Clr Calc Pharmacy 88.6 [facility] Comment:Provided height and weight: 167.64 cm,96.5 kg.eGFR (calculated from the MDRD study equation) and eCrCl(calculated from the Cockcroft-Gault equation) are based ondifferent parameters and may not yield comparable results.If eCrCl result is absurd, please check patient'sheight/weight. Estimated Glomerular Filt Rate >60 [facility] Comment:Chronic Kidney Disea se: Estimated GFR < 60 mL/min/1.15x4Ujgozo Kidney Disease: Estimated GFR < 15 mL/min/1.73m2 Glucose 98 60 - 115 mg/dL [facility] Calcium 9.3 8.4 - 10.2 mg/dL [facility] Bilirubin, Total 0.2 0.0 - 1.0 mg/dL [facility] Aspartate Amino Transferase 17 5 - 31 U/L [facility] Alanine Aminotransferase 14 0 - 31 U/L [facility] Total Protein 7.6 6.5 - 8.0 g/dL [facility] Albumin Level 3.9 3.5 - 5.0 g/dL [facility] Alkaline Phosphatase 114 39 - 117 U/L [facility] 08/05/2024 6:21 PM EST 08/05/2024 6:24 PM EST us Generic External Data Provider LAB BLOOD ORDERAB LES Final Result Performing Organization Address [facility]/ZIP Co de Phone Number [facility] [address] [place] [phone] * POCT Rapid COVID-19 Binax NOW (08/05/2024 5:31 PM EST) Rapid COVID Ag Negative QC Media Lot # [id number] Lot# Expiration Date Swab 08/05/2024 5:31 PM EST Bette Wynn MD POINT OF CARE TEST ENTER/E DIT ORDERABLES Final Result * POCT Rapid Influenza B HERNANDEZ ID NOW (08/05/2024 5:30 PM EST) [facility] Influenza B Negative Negative, Indeterminate [facility] QC Media Lot # [id number] [facility] Lot# Expiration Date [facility] Swab 08/05/2024 5:30 PM EST Bette Wynn MD POINT OF CARE TEST ENTER/E DIT ORDERABLES Final Result Performing Organization Address [facility]/ZIP Co de Phone Number [facility] [address] [place] [phone] * POCT Rapid Influenza A HERNANDEZ ID NOW (08/05/2024 5:30 PM EST) [facility] Influenza A Negative Negative, Indeterminate [facility] QC Media Lot # [id number] [facility] Lot# Expiration Date [facility] Swab 08/05/2024 5:30 PM EST Bette Wynn MD POINT OF CARE TEST ENTER/E DIT ORDERABLES Final Result Performing Organization Address [facility]/ZIP Co de Phone Number [facility] [address] [place] [phone] * BI Mammogram Screening Tomosynthesis Bilateral (09/24/2023 4:24 PM EST) Anatomical Region Laterality Modality Breast Bilateral Mammography 09/24/2023 4:24 PM EST Narrative 10/12/2023 4:26 PM EST ? [facility] ?[address] ?[place] [address] ? Mammography Report ? Signed ? Patient: Clark,Elaine ?MR#: [id number] ? : 1970 ?Acct:[id number] ? Age/Sex: 52 / F ?ADM Date: 09/24/23 ? Loc: HO.US ? Attending Dr: Cecily Schwab CNM ? Ordering Physician: CECILY SCHWAB CNM ?Results: 1 ?? Negative ? Date of Service: 09/24/23 ?Follow Up: 1 Year From Orig ?? inal Mammogram ? Procedure(s): MM tomosynthesis screening BI ?? Accession Number(s): [id number] ? cc: Mychal Long MD; CECILY SCHWAB CNM ? EXAMINATION: ?? MM SCREENING DIGITAL BREAST TOMOSYNTHESIS, BILATERAL ? CLINICAL INFORMATION: ? Screening. Asymptomatic. ? COMPARISON: ?? Mammography: This study is compared with prior exams dating back to ?? 2015. ? TECHNIQUE: ?? Digital breast tomosynthesis is [...] by Andree Porter MD in OV> ? 10/12/23 1622 ? DD/ 1624 ? TD/TT: ? Transportation Design Engineer: ? Procedure Note Yas Almodovar - 10/12/2023 [place] [address] Mammography Report Signed Patient: Elaine RodasMR#: [id number] : 1970Acct:[id number] Age/Sex: 52 / FADM Date: 09/24/23 Loc: HO. Attending Dr: Cecily Schwab CNM Ordering Physician: CECILY SCHWABesults: 1 Negative Date of Service: 09/24/23Follow Up: 1 Year From Orig inal Mammogram Procedure(s): MM tomosynthesis screening BI Accession Number(s): [id number] cc: Mychal Long MD; CECILY SCHWAB CNM [...] in OV> 10/12/23 1622 DD/ 1624 TD/TT: Transportation Design Engineer: Cecily Schwab [facility] IMG BI PROCEDURES Final R esult * HPV mRNA E6/E7 w/Reflex to HPV Genotypes 16, 18/45 (08/23/2023 2:22 PM EST) HPV nRNA E6/E7 Not Detected Not Detected [facility] Comment:Methodology: Transcr iption-Mediated AmplificationThis assay detects E6/E7 viral messenger RNA (mRNA) from 14high-risk HPV types (16,18,31,33,35,39,45,51,52,56,58,59,66,68).Cervical sources are required for HPV testing.If a vaginal source from a patient who has had atotal hysterectomy with removal of cervix wassubmitted, please contact the testing laboratoryfor alternative testing options.For additional information, please refer tohttp://education.Ecociclus/faq/ESZ012b8(This link if provided for information/educational purposes only.)THIS TEST WAS PERFORMED AT:[facility] [place] [phone] PRESSLEY MD HPV mRNA E6/E7 TNP [facility] HPV 16 RNA TNP [facility] HPV 18/45 RNA TNP [facility] 08/23/2023 2:22 PM EST 08/24/2023 9:35 AM EST us Cecily Tonie CN LAB CYTOLOGY ORDERABLES F inal Result [facility] [address] [place] [phone] * Pap Smear (08/23/2023 2:22 PM EST) Swab Cervix uteri structure / Unknown 08/23/2023 2:22 PM EST 08/24/2023 9:35 AM EST Narrative [facility] - 09/04/2023 1:23 PM EST ----- ------- Name: Elaine Rodas ?Age/Sex: 52/F ? : 1970 Unit#: [id number] ?? Attend Dr: ?Re08/23/23 ?Status: PRE REF ? Location: HO.LNP ?Disch: ? ----- ------- SPEC : [id number] ?RECD: 08/24/23 ? STATUS: ??SOUT ? REQ NUM: [id number] ? CHAPIN: 08/23/23 ? SUBM DR: CECILY SCHWAB CNM ? ENTERED: ??08/24/23 ?SP TYPE: Pap Smr ?OTHR : ? ORDERED: ??Pap Smear ? Interpretation ?? [...] 66, 68) ?? HPV testing performed by [facility], [place], [place]. ??See reference laboratory ?? portion of the EMR for entire report. ?Clinical Information LMP: Postmenopausal Previous PAP test: Unknown date/findings Other history: Abnormal bleeding ? Material Received ?? ThinPrep-Cervical ----- ------- Signed (signature on file) NATHAN Medrano (ASCP) 09/04/23 1323 ? ----- ------- ? END OF REPORT ? Cecily Schwab [facility] CYTOLOGY ORDERABLES F inal Result [facility] [address] [place] [address] [phone] * Colonoscopy (08/30/2022) Pathologist [facility] Colonoscopy Normal Normal Historical Provider HEALTH MAINTENANCE Final Result * (ABNORMAL) LIPID PANEL, STANDARD (06/17/2020 3:00 PM EDT) HDL Cholesterol 53 > OR = 50 [...] ?? Mina MARRERO et al. ASHUTOSH. 2013;310(19): 7320-2161 ?? (http://education.Phybridge/faq/ZTM523) Chol/HDLC Ratio 3.4 <5.0 (calc) [facility] 06/17/2020 3:00 PM EDT us Mychal Morris MD LAB BLOOD ORDERABLES Final Result [facility] [address] from Last 3 Months or Most Recently Relevant to Health Maintenance Insurance [employer] C3 Care Teams [employer] Relationship Specialty Start Date End Date Mychal Fields MD [address] [place] [phone] PCP - General Internal Medicine 04/30/14 Hima Fam FNP [address] [place], [place] [phone] Nurse Practitioner Family Medicine 08/01/23
--- OUTSIDE RECORDS SUMMARY | 2024-10-27 01:34 | XMS_ITS | Encounter Summary ---
Author Organization [employer] Address [address] [place] [address] 7t [place] [address] Care Team Providers Care English Composition Instructor Name Role Phone Mychal Fields MD Primary Care Provide r Hima Fam Unavailable Unavailable Reason for Visit * Reason Comments Med Refill Encounter Details Date Type Department Care Team (Late st Contact Info) Description 10/06/2024 Refill [facility] [address] [place] [address] Mychal Fields MD [address] [place] [address] Anxiety and depression Social History Tobacco Use [...] Visit [facility] [address] [place] [address] Mychal Fields MD [address] [place] [address] documented as of this encounter Visit Diagnoses Diagnosis Anxiety and depression documented in this encounter Additional Health Concerns Assessment Noted Time PHQ-9 Depression Total Score: 6 09/16/19 25 10:06 AM EST documented as of this encounter Care Teams English Composition Instructor Relationship Specialty Start Date End Date Mychal Fields MD [address] [place] [phone] PCP - General Internal Medicine 04/30/14 Hima Fam FNP [address] [place] [address] Nurse Practitioner Family Medicine 08/01/23 documented as of this encounter
--- OUTSIDE RECORDS SUMMARY | 2024-10-27 01:34 | XMS_ITS | Encounter Summary ---
Author Organization [employer] Address [address] [place] [address] 7t [place] [address] Care Team Providers Care Supplier Diversity Director Name Role Phone Mychal Fields MD Primary Care Provide r Hima Fam Unavailable Unavailable Reason for Visit * Reason Comments Med Refill Encounter Details Date Type Department Care Team ([facility] st Contact Info) Description 07/27/2023 Refill [facility] [address] [place] [address] Mychal Fields MD [address] [place], [place] [phone] Social History Tobacco Use Types Packs/Day Years [...] 1:00 PM EDT Office Visit [facility] [address] [place] [address] Mychal Fields MD [address] [place] [address] documented as of this encounter Visit Diagnoses Not on filedocumented in this encounter Additional Health Concerns Assessment Noted Time PHQ-9 Depression Total Score: 0 05/10/20 23 10:38 AM EDT documented as of this encounter Care Teams Supplier Diversity Director Relationship Specialty Start Date End Date Mychal Fields MD [address] [place] [phone] PCP - General Internal Medicine 04/30/14 Hima Fam FNP [address] [place] [phone] Nurse Practitioner Family Medicine 08/01/23 documented as of this encounter
--- OUTSIDE RECORDS SUMMARY | 2024-10-27 01:34 | XMS_ITS | Encounter Summary ---
Author Organization [employer] Address [address] [facility] 7t [place] [address] Care Team Providers Care Director Technical Name Role Phone Mychal Fields MD Primary [...] Description 12/23/2024 1:00 PM EDT Office Visit [facility] [address] [place] [address] Mychal Fields MD [address] [place] [address] documented as of this encounter Visit Diagnoses Not on filedocumented in this encounter Additional Health Concerns Assessment Noted Time PHQ-9 Depression Total Score: 6 09/16/19 25 10:06 AM EST documented as of this encounter Care Teams Director Technical Relationship Specialty Start Date End Date Mychal Fields MD [address] [place] [address] PCP - General Internal Medicine 04/30/14 Hima Fam FNP [address] [place] [address] Nurse Practitioner Family Medicine 08/01/23 documented as of this encounter
--- OUTSIDE RECORDS SUMMARY | 2024-10-27 01:34 | XMS_ITS | Encounter Summary ---
Author Organization [employer] Address [address] [place] [address] 7t [place] [address] Care Team Providers Care Assessment Coordinator Name Role Phone Mychal Fields MD Primary Care Provide r Hima Fam Unavailable Unavailable Reason for Visit * Reason Comments Med Refill Encounter Details Date Type Department Care Team ([facility] st Contact Info) Description 07/27/2023 Refill [facility] [address] [place] [address] Mychal Fields MD [address] [place], [place] [phone] Social History Tobacco Use Types Packs/Day Years [...] Description 12/23/2024 1:00 PM EDT Office Visit [facility] [address] [place] [address] Mychal Fields MD [address] [place] [address] documented as of this encounter Visit Diagnoses Not on filedocumented in this encounter Additional Health Concerns Assessment Noted Time PHQ-9 Depression Total Score: 0 05/10/20 23 10:38 AM EDT documented as of this encounter Care Teams Assessment Coordinator Relationship Specialty Start Date End Date Mychal Fields MD [address] [place] [address] PCP - General Internal Medicine 04/30/14 Hima Fam FNP [address] [place] [address] Nurse Practitioner Family Medicine 08/01/23 documented as of this encounter
--- OUTSIDE RECORDS SUMMARY | 2024-10-27 01:34 | XMS_ITS | Encounter Summary ---
Author Organization [employer] Address [address] [place] [address] 7 [place] [address] Care Team Providers Care Report Clerk Name Role Phone Mychal Fields MD Primary Care Provide r Hima Fam Unavailable Unavailable Reason for Visit * Reason Onset Date Comments Nurse Triage 08/05/2024 Encounter Details Date Type Department Care Team ([facility] st Contact Info) Description 08/05/2024 Telephone [facility] MEDICINE [address] [place] [address] Mychal Fields MD [address] [place] [address] Nurse Triage Social History Tobacco Use Types [...] for cough.Pt is offered to come to [facility] to be seen by provider, advised this [...] Pt didn't answer. Left message to call [facility] [phone]. Advised will call back in about 15 [...] symptoms except for fever. Contact pt at [phone] (georgian) documented in this encounter Plan of Treatment Upcoming Encounters Date Type Department Care Team (Late st Contact Info) Description 12/23/2024 1:00 PM EDT Office Visit [facility] MED[facility]INE [address] [place] [address] Mychal Fields MD [address] [place] [address] documented as of this encounter Visit Diagnoses Not on filedocumented in this encounter Additional Health Concerns Assessment Noted Time PHQ-9 Depression Total Score: 9 01/28/20 24 2:36 PM EDT documented as of this encounter Care Teams Report Clerk Relationship Specialty Start Date End Date Mychal Fields MD [address] [place] [address] PCP - General Internal Medicine 04/30/14 Hima Fam FNP [address] [place] [address] Nurse Practitioner Family Medicine 08/01/23 documented as of this encounter
--- NOTE | 2024-10-27 01:44 | ED.ABDPAIN ---
HPI - Abdominal Pain General Chief Complaint: Abdominal Pain Stated Complaint: abd pain Time Seen by Provider: 10/27/24 01:36 Source: patient Mode of arrival: ambulatory Limitations: no limitations History of Present Illness ED Provider: HPI narrative: Patient is status post cholecystectomy 30 years ago comes here for right upper abdominal and epigastric pain started at 16:30 associated with nausea and had 3 loose bowels no fever no chills no other family member sick no recent travel or bad food intake Related Data Home Medications ?Medication ?Instructions ?Recorded ?Confirmed amlodipine 10 mg tablet 10 mg PO DAILY 06/28/21 10/14/24 cholecalciferol (vitamin D3) 50 50 mcg PO DAILY 06/28/21 10/14/24 mcg (2,000 unit) tablet (Vitamin D3) clonazepam 1 mg tablet 1 mg PO TID PRN Anxiety 06/28/21 10/14/24 fluticasone propionate 50 1 spray intranasal DAILY 06/28/21 10/14/24 mcg/actuation nasal spray,suspension loratadine 10 mg tablet 10 mg PO DAILY 06/28/21 10/14/24 losartan 100 mg tablet 100 mg PO DAILY 06/28/21 10/14/24 zolpidem 10 mg tablet 10 mg PO BEDTIME PRN Insomnia 06/28/21 10/14/24 blood pressure test kit-large #1 ea 11/19/23 10/14/24 estradiol 0.01% (0.1 mg/gram) 1 g vaginal 2XW 11/19/23 10/14/24 vaginal cream lidocaine 5 % topical patch patch topical 11/19/23 10/14/24 valacyclovir 500 mg tablet 500 mg PO BID PRN 11/19/23 10/14/24 minoxidil 2.5 mg tablet 2.5 mg PO QAM 04/07/24 10/14/24 Previous Rx's ?Medication ?Instructions ?Recorded dexlansoprazole 60 mg 60 mg PO DAILY 90 days #90 caps 02/08/23 capsule,biphase delayed release (Dexilant) sennosides 8.6 mg capsule (senna) See Rx Instructions PO BEDTIME 02/08/23 constipation 30 days #60 caps beclomethasone dipropionate 40 2 inh inhalation BID #10.6 grams 04/07/24 mcg/actuation HFA breath activated aerosol (Qvar RediHaler) albuterol sulfate 90 mcg/actuation 2 puff PO Q4H PRN for dyspnea #18 05/26/24 aerosol inhaler (Ventolin HFA) ea fluticasone furoate 100 1 inh inhalation DAILY #30 ea 07/10/24 mcg/actuation blister powder for inhalation (Arnuity Ellipta) nicotine (polacrilex) 2 mg gum 2 mg buccal Q2H #100 gums 08/01/24 metronidazole 500 mg tablet 500 mg PO BID 7 days #14 tabs 09/22/24 fluticasone furoate 200 1 inh inhalation DAILY #60 ea 10/13/24 mcg-vilanterol 25 mcg/dose inhalation powder (Breo Ellipta) tramadol 50 mg tablet 50 mg PO TID PRN pain 30 days #60 10/14/24 tabs citalopram 20 mg tablet 20 mg PO DAILY #30 tabs 10/23/24 loperamide 2 mg tablet (Imodium 2 mg PO Q6H PRN loose stool #14 10/27/24 A-D) tabs ondansetron 4 mg disintegrating 4 mg PO Q6-8H PRN nausea and 10/27/24 tablet vomiting #10 tabs Allergies Allergy/AdvReac Type Severity Reaction Status Date / Time Penicillins Allergy Mild VAGINAL Verified 10/26/24 21:30 FUNGUS INFECTION lisinopril [LISINOPRIL] Allergy Unknown COUGH Verified 10/26/24 21:30 verapamil Allergy Unknown unknown Verified 10/26/24 21:30 Review of Systems Review of Systems Yes all other systems are reviewed and are negative PMFSH Past Medical History Medical History Bilateral primary osteoarthritis of knee Gallstone pancreatitis Palpitations Fibromyalgia Depression Glaucoma HTN (hypertension) Surgical History H/O colonoscopy History of tubal ligation Hx of carpal tunnel repair Hx of cholecystectomy Hx of knee surgery Family History Family History Father Kidney disease Mother CVD (cardiovascular disease) Colon cancer Social History Social History Alcohol intake: never Patient Tobacco Use Status: Current everyday Tobacco user Cigarette Packs Per Day: 0.5 Cigarettes Per Day: 10 Years Smoked: 30 Smoked in Last 30 Days: Yes Use of substances other than those prescribed or required for medical reasons: No Advance Directives: No Advance Directives Information Provided: Yes Patient : No Physical Exam ED Vital Signs: Vital Signs - 24 hr 10/26/24 21:22 10/27/24 02:00 10/27/24 02:41 Temperature 97.7 F 97.8 F Pulse Rate 98 76 Respiratory Rate 18 20 17 Blood Pressure 158/84 H 140/65 H Pulse Oximetry 98 95 Oxygen Delivery Method Room Air Room Air BMI result Body Mass Index 35.5 Appearance: Alert. Oriented X3. No acute distress. Eyes: PERRLA, No Nystagmus, no pallor or icterus ENT: Pharynx normal. Oral Mucosa moist Neck: Normal inspection. Neck supple. CVS: Normal heart rate and rhythm. Pulses normal. Respiratory: No respiratory distress. Equal air entry bilateral, no wheezing/rales/rhonchi Abdomen: Soft and tenderness in epigastric area Bowel sounds are present, no mass palpable, no CVA tenderness Skin: Skin warm and dry. Normal skin color. Normal skin turgor. Extremities: No lower extremity edema. No calf tenderness Neuro: Oriented X 3. No motor deficit. No sensory deficit.No cerebellar signs , cranial nerves II-XII intact Medical Decision Making Medical Decision Making [facility] Narrative: Patient with gastroenteritis likely viral CT scan of the abdomen is negative except for mild enteritis patient is feeling much better during stay in the ED will give your prescription for Zofran Differential Diagnosis Differential Diagnoses: The differential diagnosis associated with the presentation includes Lab Data [facility] Lab Attestation statement: I reviewed the patient's lab results. 10/26/24 21:50 10/26/24 21:50 Labs: Lab Results 10/26/24 Range/Units 21:50 WBC 10.9 H (4.8-10.8) X10*3/uL RBC 4.61 (4.20-5.50) X10*6/uL Hgb 13.5 (12.0-16.0) g/dl Hct 40.1 (37.0-47.0) % MCV 87.0 (80.0-98.0) fL MCH 29.3 (27.0-33.0) pg MCHC 33.7 (31.0-35.0) g/dl RDW 13.1 (11.0-16.0) % Plt Count 306 (160-400) X10*3/uL MPV 9.2 L (9.4-12.3) fL Absolute Nucleated RBC 0.000 (0.0-0.012) X10*3/uL Nucleated RBC % (auto) 0.0 (0.0-0.2) /100WBC Sodium 141 (135-145) mmol/L Potassium 4.4 (3.3-5.1) mmol/L Chloride 107 (96-108) mmol/L Carbon Dioxide 26 (22-29) mmol/L Anion Gap 12 (12-20) BUN 14 (9-16) mg/dL Creatinine 0.94 (0.5-1.4) mg/dL Estim Creat Clear Calc 79.6 Estimated GFR > 60 Random Glucose 156 H (60-115) mg/dL Calcium 9.6 (8.4-10.2) mg/dL Total Bilirubin 0.2 (0.0-1.0) mg/dL Direct Bilirubin < 0.2 (0.0-0.5) mg/dL AST 21 (5-31) U/L ALT 13 (0-31) U/L Alkaline Phosphatase 120 H (39-117) U/L Total Protein 8.2 H (6.5-8.0) g/dL Albumin 4.0 (3.5-5.0) g/dL Lipase 27 (8-78) U/L Urine Color Dark Yellow Urine Appearance Turbid Urine pH 8.0 (5.0-9.0) Ur Specific [place] 1.025 (1.005-1.025) Urine Protein 30 (1+) H (Neg-Trace) mg/dL Urine Glucose (UA) Negative (Negative) mg/dL Urine Ketones Trace (Negative) mg/dL Urine Blood Negative (Negative) Urine Nitrite Negative (Negative) Ur Leukocyte Esterase Small (1+) H (Negative) Urine RBC 0-2 (0-2) /HPF Urine WBC 0-5 (0-5) /HPF Ur Squamous Epith Cells 6-10 (0-2) /HPF Urine Bacteria 1+ (None Seen) Hyaline Casts 0-2 (0-2) /LPF Medications Administered Discontinued Medications Generic Name Dose Route Start Last Admin Trade Name Freq PRN Reason Stop Dose Admin Sodium Chloride 1,000 mls @ 999 mls/hr 10/27/24 02:12 10/27/24 02:45 Ns IV 10/27/24 03:12 999 mls/hr .Q1H1M ONE Administration Morphine Sulfate 4 mg 10/27/24 02:12 10/27/24 02:41 Morphine Sulfate 4 Mg/Ml Cartridge IVPUSH 10/27/24 02:13 4 mg ONCE ONE Administration Protocol Ondansetron HCl 4 mg 10/27/24 02:12 10/27/24 02:42 Ondansetron Hcl 4 Mg/2 Ml Vial IVPUSH 10/27/24 02:13 4 mg ONCE ONE Administration Discharge Plan Discharge Clinical Impression: Gastroenteritis Patient Disposition: Home, Self-Care Instructions: Gastroenteritis (ED) Additional Instructions: Drink plenty of fluids Medicine for nausea and diarrhea as prescribed Report to your PCP/ED if not better Prescriptions: New ondansetron 4 mg tablet,disintegrating 4 mg PO Q6-8H PRN (Reason: nausea and vomiting) Qty: 10 0RF loperamide [Imodium A-D] 2 mg tablet 2 mg PO Q6H PRN (Reason: loose stool) Qty: 14 0RF No Action albuterol sulfate [Ventolin HFA] 90 mcg/actuation HFA aerosol inhaler 2 puff PO Q4H PRN (Reason: for dyspnea) Qty: 18 0RF nicotine (polacrilex) 2 mg gum 2 mg buccal Q2H Qty: 100 0RF citalopram 20 mg tablet 20 mg PO DAILY Qty: 30 0RF clonazepam 1 mg tablet 1 mg PO TID PRN (Reason: Anxiety) cholecalciferol (vitamin D3) [Vitamin D3] 50 mcg (2,000 unit) tablet 50 mcg PO DAILY losartan 100 mg tablet 100 mg PO DAILY zolpidem 10 mg tablet 10 mg PO BEDTIME PRN (Reason: Insomnia) fluticasone propionate 50 mcg/actuation spray,suspension 1 spray intranasal DAILY loratadine 10 mg tablet 10 mg PO DAILY amlodipine 10 mg tablet 10 mg PO DAILY senna 8.6 mg capsule See Rx Instructions PO BEDTIME 30 Days Qty: 60 6RF Rx Instructions: 1-2 tabs qhs orally bedtime; dexlansoprazole [Dexilant] 60 mg capsule,biphase delayed releas 60 mg PO DAILY 90 Days Qty: 90 6RF metronidazole 500 mg tablet 500 mg PO BID 7 Days Qty: 14 0RF Arnuity Ellipta 100 mcg/actuation blister with device 1 inh inhalation DAILY Qty: 30 6RF fluticasone furoate-vilanterol [Breo Ellipta] 200-25 mcg/dose blister with device 1 inh inhalation DAILY Qty: 60 3RF estradiol 0.01 % (0.1 mg/gram) cream 1 g vaginal 2XW valacyclovir 500 mg tablet 500 mg PO BID PRN lidocaine 5 % adhesive patch,medicated topical (DME) blood pressure test kit-large Kit See Rx Instructions .ROUTE QAM Qty: 1 Rx Instructions: As directed minoxidil 2.5 mg tablet 2.5 mg PO QAM Qvar RediHaler 40 mcg/actuation HFA aerosol breath activated 2 inh inhalation BID Qty: 10.6 3RF tramadol 50 mg tablet 50 mg PO TID PRN (Reason: pain) 30 Days Qty: 60 3RF Print Language: Australian
[2024-10-27 02:00] VITALS: BP 140/65; PULSE 76; RESP 20; TEMP 36.6; O2SAT 95
[2024-10-27 02:41] VITALS: RESP 17
[2024-10-27] MEDS: Morphine Sulfate 4 MG/ML CARTRIDGE IVPUSH (02:41)
[2024-10-27] MEDS: ondansetron HCL 4 MG/2 ML VIAL IVPUSH (02:42)
[2024-10-27] MEDS: 0.9 % Sodium Chloride 1,000 ML 999 ML IV (02:45)
--- NOTE | 2024-10-27 02:47 | PC.NURSE ---
pt a&ox4, respirations even and unlabored. pt reporting sudden onset of nausea and lower abdominal pain starting at 2pm, reports normal po intake, denies vomiting and diarrhea. pt denies sick contacts. 20G placed in left ac, medicated per mar, language interpreter at bedside. lights dimmed.
[2024-10-27 04:56] VITALS: BP 116/67; PULSE 73; RESP 16; TEMP 37; O2SAT 96
== END 2024-10-27 04:57 | disposition home or self-care (01) ==
PROVIDERS: Emergency Provider Internal Medicine
DX: K52.9 Noninfective gastroenteritis and colitis, unspecified (principal); R10.2 Pelvic and perineal pain; R10.11 Right upper quadrant pain; R11.2 Nausea with vomiting, unspecified; R10.13 Epigastric pain; F17.210 Nicotine dependence, cigarettes, uncomplicated; Z79.899 Other long term (current) drug therapy
CPT/HCPCS: 36415; 74176; 80053; 81001; 82248; 83690; 85027; 96361; 96374; 96375; 99284; J2270; J2405

== ENCOUNTER → 2024-10-27 02:11 | Outpatient (BNV) | payer MEDICAID, SELFPAY | PROVIDERS: Emergency Provider Internal Medicine; Visit Provider Radiology Diagnostic Radiology | DX: R10.9 Unspecified abdominal pain (principal) | CPT/HCPCS: 74176 ==

== ENCOUNTER 2024-10-29 12:54 | Outpatient (REF) | payer MEDICAID, SELFPAY ==
--- OUTSIDE RECORDS SUMMARY | 2024-10-29 13:05 | XMS_ITS | Encounter Summary ---
Author Organization [employer] Address [address] [place] [address] 7t [place] [address] Care Team Providers Care Pie Filler Name Role Phone Mychal Fields MD Primary Care Provide r Hima Fam Unavailable Unavailable Reason for Visit * Reason Comments Med Refill Encounter Details Date Type Department Care Team ([facility] st Contact Info) Description 07/27/2023 Refill [facility] [address] [place] [address] Mychal Fields MD [address] [place], [place] [phone] Social History Tobacco Use Types Packs/Day Years [...] Description 12/23/2024 1:00 PM EDT Office Visit [facility] [address] [place] [address] Mychal Fields MD [address] [place] [address] documented as of this encounter Visit Diagnoses Not on filedocumented in this encounter Additional Health Concerns Assessment Noted Time PHQ-9 Depression Total Score: 0 05/10/20 23 10:38 AM EDT documented as of this encounter Care Teams Pie Filler Relationship Specialty Start Date End Date Mychal Fields MD [address] [place] [address] PCP - General Internal Medicine 04/30/14 Hima Fam FNP [address] [place] [address] Nurse Practitioner Family Medicine 08/01/23 documented as of this encounter
--- OUTSIDE RECORDS SUMMARY | 2024-10-29 13:05 | XMS_ITS | Encounter Summary ---
Author Organization [employer] Address [address] [place] [address] 7 [place] [address] Care Team Providers Care Spiral Machine Operator Name Role Phone Mychal Fields MD Primary Care Provide r Hima Fam Unavailable Unavailable Reason for Visit * Reason Comments Med Refill Encounter Details Date Type Department Care Team ([facility] st Contact Info) Description 10/11/2024 Refill [facility] [address] [place] [address] Mychal Fields MD [address] [place], [place] [phone] Social History Tobacco Use Types Packs/Day Years [...] 12/23/2024 1:00 PM EDT Office Visit [facility] [address] [place] [address] Mychal Fields MD [address] [place] [address] documented as of this encounter Visit Diagnoses Not on filedocumented in this encounter Additional Health Concerns Assessment Noted Time PHQ-9 Depression Total Score: 6 09/16/19 25 10:06 AM EST documented as of this encounter Care Teams Spiral Machine Operator Relationship Specialty Start Date End Date Mychal Fields MD [address] [place] [phone] PCP - General Internal Medicine 04/30/14 Hima Fam FNP [address] [place] [phone] Nurse Practitioner Family Medicine 08/01/23 documented as of this encounter
--- OUTSIDE RECORDS SUMMARY | 2024-10-29 13:05 | XMS_ITS | Data Portability ---
Author Organization [place] - [facility], Allergy Address [address] [address] Care Team Providers Care Mobile Application Engineer Name Role Phone GIACOMO MARX Primary Care Provider GIACOMO MARX Referring Provider Assessment Encounter Date Assessment Date Assessment LastModified by Organization Details LastModified Time 04/25/2024 04/25/2024 53-year-old female presents following DL with biopsy. Pathology was reviewed to be benign. 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 Overall reassurance was provided. follow up as scheduled. [email or web address] Not available 04/28/2024 15:04:21 Plan of Treatment [...] observ ation record ed. [email or web address] [facility] [place] [address], [place], [address], 02/25/2024 09:12:35 03/31/20 24 03/31/2024 US, neck, soft tissu e No observ ation [facility] [address] [facility], [place], [address], 04/11/2024 16:05:21 04/28/20 24 04/10/2024 clini bertha photo * No observ ation record ed. [email or web address] Not Available 17:00:02 04/29/20 24 05/08/2023 imagi ng/di agnos tic resul t No observ ation record ed. [email or web address] Not Available 21:42:28 Result Notes None recorded. Problems Name Problem SNOMED Code Status Onset Date Resolution Date Notes Provider Name and Address Organization Details Recorded Time Thyroid nodule 259856061 Active 2023 MADHU REYES MD 100 [facility] [[email or web address]] 100, [place], [address] , [place] - [facility] 4 16:36:38 Hypertrop hy of tonsils AND adenoids 21162040 Active 2023 MADHU REYES MD 100 [facility] [[email or web address]] 100, [place], [address] , [place] - [facility] 4 16:36:47 Hypertrop hy of lingual tonsil 613212410 Active 2023 MADHU REYES MD 100 [facility],[place] [address], [place], [address] , [place] - [facility] 4 16:36:52 Non-toxic uninodula r goiter 349709169 Active 2023 Nontoxic single thyroid nodule; Note: Date Diagnosed : 01/18/2024 11:58 AM (E04.1) Not Available [facility] 4 02:45:01 Mass of neck 798758985 Active 2023 Localized swelling, mass and lump, neck; Note: Date Diagnosed : 11/08/2023 11:56 AM (R22.1) Not Available [facility] 4 02:45:02 Neck swelling 422706351 Active 2023 Localized swelling, mass and lump, neck; Note: Date Diagnosed : 11/08/2023 11:56 AM (R22.1) Not Available [facility] 4 02:45:02 Neck pain 46158198 Active 2023 Cervicalg ia; Note: Date Diagnosed : 11/08/2023 11:56 AM (M54.2) Not Available [facility] 4 02:45:02 Dysphagia 42059311 Active 2023 Dysphagia , unspecifi ed; Note: Date Diagnosed : 11/08/2023 11:56 AM (R13.10) Not Available [facility] 4 02:45:05 Obstructi ve sleep apnea of adult 78071080890 03 Active 2023 MADHU REYES MD 100 [facility] [[email or web address]] [address], [place], [address] , [place] - [facility] 4 08:48:15 Seasonal allergic rhinitis 476453562 Active 2023 MADHU REYES MD 100 [facility] [[email or web address]] [address], [place], [address] , [place] [facility] 4 08:52:06 Allergic rhinitis 18972343 Active 2023 MADHU REYES MD [address] [facility],[place] [address], [place], [address] , [place] - [facility] 4 08:52:17 Non-aller gic rhinitis 81853706037 1 Active 2023 MADHU REYES MD [address] [facility],[place] [address], [place], [address] , [facility] - [facility] 4 08:52:17 Problem Notes None recorded. Procedures Surgical History Date Name Laterality Status Provider Name and Address Organization Details Recorded Time 4 LARYNGOSCOPY, DIRECT OPERATIVE WITH OPERATING MICROSCOPE OR TELESCOPE WITH BIOPSY (SURG) completed Paulo Faria [place] - [facility] 04/14/2024 09:38:40 4 FFL_RE completed MADHU REYES MD [address] [facility],[place] [address], [place], [address], [facility] - [facility] 03/18/2024 17:33:49 Imaging Results Imaging Date Name Status LastModified by Organiz ation Details LastModified Time 02/19/2024 US, thyroid completed [email or web address] [facility] [place] [address], [place], [address], 02/25/2024 09:12:35 03/31/2024 US, neck, soft tissue completed [facility] (Imaging) [address] [place], [address], 04/11/2024 16:05:21 04/10/2024 clinical photo* completed [email or web address] [...] % eye drops active Medicatio n ID: [id number] Br and Name: latanopro st Send Method: E-Prescri bed Subs Allowed: subs OK Specia l Instructi on: PUT 1 DROP INTO BOTH EYES AT BEDTIME M edication GenericNa me: latanopro st Not Available Not Available Not Available terconazol e 0.4 % vaginal cream active Medicatio n ID: [id number] Br and Name: terconazo le Send Method: [...] 8.6 mg tablet active Medicatio n ID: [id number] Br and Name: senna Sen d Method: [...] 500 mg tablet active Medicatio n ID: [id number] Br and Name: valacyclo vir Send Method: [...] 50 mg tablet active Medicatio n ID: [id number] Br and Name: tramadol Send Method: E-Prescri bed Subs Allowed: subs OK Specia l Instructi on: TAKE 1 TABLET BY MOUTH EVERY 6 HOURS NEEDED FOR PAIN Medi cationGen ericName: tramadol Not Available Not Available Not Available ketorolac 0.5 % eye drops active Medicatio n ID: [id number] Br and Name: ketorolac Send Method: E-Prescri [...] 20 mg tablet active Medicatio n ID: [id number] Br and Name: dicyclomi ne Send Method: [...] 10 mg tablet active Medicatio n ID: [id number] Br and Name: buspirone Send Method: E-Prescri [...] 100 mg capsule active Medicatio n ID: [id number] Br and Name: gabapenti n Send Method: [...] 1 mg tablet active Medicatio n ID: [id number] Br and Name: varenicli ne Send Method: E-Prescri bed Subs Allowed: subs OK Specia l Instructi on: TAKE 1 TABLET BY MOUTH TWICE A DAY WITH GLASS OF WATER AFTER MEALS Med icationGe nericName : varenicli ne Not Available Not Available Not Available diclofenac 1 % topical gel active Medicatio n ID: [id number] Br and Name: diclofena c sodium Se [...] capsule,de layed release active Medicatio n ID: [id number] Br and Name: Creon Sen d Method: E-Prescri bed Subs Allowed: subs OK Specia l Instructi on: TAKE 1 CAPSULE BY MOUTH 4 TIMES A DAY. ADMINISTE R WITH MEALS AND OR SNACKS Me dicationG enericNam e: Creon Not Available Not Available Not Available blood pressure test kit-large cuff active Medicatio n ID: [id number] Br and Name: blood pressure test kit-large Send Method: E-Prescri bed Subs Allowed: subs OK Specia l Instructi on: USE TO CHECK BLOOD PRESSURE ONCE DAILY IN THE MORNING M edication GenericNa me: blood pressure test kit-large Not Available Not Available Not Available Dexilant 60 mg capsule, delayed release active Medicatio n ID: [id number] Br and Name: Dexilant Send Method: E-Prescri [...] Updated DateTime 03/18/2024 160.02 cm 36.8 kg/m2 16086.21 g Kodi Soni [place] [facility] 03/18/2024 16:16:00 Date Recorded Body height Body mass index (BMI) Body weight Provider Name and Address Organization Details Last Updated DateTime 04/25/2024 160.02 cm 36.8 kg/m2 16670.21 g Janeth Castro [facility] 04/25/2024 15:19:15 Date Recorded Body height Body mass index (BMI) Body weight Provider Name and Address Organization Details Last Updated DateTime 07/30/2024 160.02 cm 36.8 kg/m2 12411.21 g Marley Santamaria [facility] 07/30/2024 08:31:21 Social History None recorded. [...] Note [id number] MADHU REYES MD [facility] [address] [address] 03/18/2024 15:41:26 03/18/2024 17:01:09 Thyroid nodule 020428571 E04.1 I recommend a US guided FNA of the thyroid nodule. She will f/u to review. Hypertroph y of tonsils AND adenoids 24395410 J35.3 hypertroph y of Waldeyer's ring. lingual tonsil biopsy is less morbid to evaluate for lymphoma. see below. Hypertroph y of lingual tonsil 388048296 J35.3 I recommend direct laryngosco py with [...] We will schedule surgery mutually convenient time. [id number] MADHU REYES MD [facility] [address] [place] [address] 04/25/2024 15:12:06 04/30/2024 07:57:22 Hypertrophy of lingual tonsil 823164840 J35.3 Hypertroph y of tonsils AND adenoids 85287640 J35.3 Neck pain 68024834 M54.2 [id number] MADHU REYES MD [facility] [address] [facility] [address] 07/30/2024 08:28:17 07/30/2024 08:55:15 Hypertrophy of lingual tonsil 369253569 J35.3 Biopsies negative. Gave reassuranc e. Continue observatio n. Deferred laryngosoc py today. Obstructiv e sleep apnea of adult 2628248679 103 G47.33 Agree with starting CPAP which is in process. Thyroid nodule 474330630 E04.1 Recommend repeat thyroid US at [facility] after next visit in 6 months. Seasonal a llergic rhinitis 585794885 J30.2 Exam and history are consistent with allergic rhinitis. We will obtain allergy testing to clarify the extent of allergy with f/u to review. Allergic rhinitis 478739 04 J30.9 Non-allergic rhinitis 31 43086034 01 J31.0 Health Concerns Section Related Observation LastModified by Organization Detai ls LastModified Time None Recorded Concern Status LastModified by Organization Details LastModified Time None Recorded Advance Directives Directive None Recorded Payers Encounter Date Sequence Insurance Name Policy Number Policy Tompkins Covered Member ID Tompkins Member ID Guarantor Name 03/18/2024 1 [place] [facility] [id number] Elaine Rodas 04/25/2024 1 [place] [facility] [id number] Elaine Rodas 07/30/2024 1 [place] [facility] Elaine Rodas [id number] Elaine Rodas Notes Date Note Type Note [...] by her other doctors. MADHU REYES MD [address] [place] [address], [address], [place] - [facility] 03/18/2024 17:45:03 04/25/2024 text/html 53-year-old fema nidia presents following DL with biopsy. She continues to have mild sore throat but no bleeding. Biopsy was done due to hypertrophy of Waldeyer's ring on imaging. MADHU REYES MD [address] [place] [address],[address], [address], [place] - [facility] 04/29/2024 10:01:40 07/30/2024 text/html Hx of hypertroph [...] allergies with marginal benefit. MADHU REYES MD [address] [place] [address], [place], [address], [place] [facility] 07/30/2024 08:52:32 OBGyn Episode No OBEpisode recorded.
--- OUTSIDE RECORDS SUMMARY | 2024-10-29 13:05 | XMS_ITS | Encounter Summary ---
Author Organization [employer] Address [address] [place] [address] [address] [address] Care Team Providers Care Lockstitch Collar Setter Name Role Phone Mychal Fields MD Primary Care Provide r Hima Fam Unavailable Unavailable Reason for Visit * Reason Comments Med Change Request Encounter Details Date Type Department Care Team (Late st Contact Info) Description 10/19/2022 Refill [facility] [address] [place] [address] Mychal Fields MD [address] [place] [address] [phone] Fibromyalgia Social History Tobacco Use Types Packs/Day [...] 12/23/2024 1:00 PM EDT Office Visit [facility] [address] [place] [address] [phone] Mychal Fields MD [address] [place] [address] [phone] documented as of this encounter Visit Diagnoses Diagnosis Fibromyalgia Unspecified myalgia and myositis documented in this encounter Additional Health Concerns Assessment Noted Time PHQ-9 Depression Total Score: 7 10/09/19 23 4:00 PM EST documented as of this encounter Care Teams Lockstitch Collar Setter Relationship Specialty Start Date End Date Mychal Fields MD [address] [place] [address] PCP - General Internal Medicine 04/30/14 Hima Fam FNP [address] [place] [address] Nurse Practitioner Family Medicine 08/01/23 documented as of this encounter
--- OUTSIDE RECORDS SUMMARY | 2024-10-29 13:05 | XMS_ITS | Encounter Summary ---
Author Organization [employer] Address [address] [place] [address] 7[address] [place] [address] Care Team Providers Care Tool Liaison Name Role Phone Mychal Fields MD Primary Care Provide r Hima Fam Unavailable Unavailable Reason for Visit * Reason Comments Med Refill Encounter Details Date Type Department Care Team (Late st Contact Info) Description 10/11/2024 Refill [facility] [address] [place] [address] Bette Wynn MD [address] [place] [address] Low vitamin D level Social History Tobacco [...] 12/23/2024 1:00 PM EDT Office Visit [facility] [address] [place] [address] Mychal Fields MD 230 [place] [address] documented as of this encounter Visit Diagnoses Diagnosis Low vitamin D level documented in this encounter Additional Health Concerns Assessment Noted Time PHQ-9 Depression Total Score: 6 09/16/19 25 10:06 AM EST documented as of this encounter Care Teams Tool Liaison Relationship Specialty Start Date End Date Mychal Fields MD [address] [place] [address] PCP - General Internal Medicine 04/30/14 Hima Fam FNP [address] [place] [address] Nurse Practitioner Family Medicine 08/01/23 documented as of this encounter
--- OUTSIDE RECORDS SUMMARY | 2024-10-29 13:05 | XMS_ITS | Encounter Summary ---
Author Organization [employer] Address [address] [place] [address] [address]t [place] [address] Care Team Providers Care Deicer Kit Assembler Name Role Phone Mychal Fields MD Primary Care Provide r Hima Fam Unavailable Unavailable Reason for Visit * Reason Comments Med Refill Encounter Details Date Type Department Care Team (Late st Contact Info) Description 10/06/2024 Refill [facility] & PEDS [address] [place] [address] Mychal Fields MD [address] [place] [address] Anxiety and depression Social History Tobacco Use [...] Description 12/23/2024 1:00 PM EDT Office Visit [facility]INE [address] [place] [address] Mychal Fields MD [address] [place] [address] documented as of this encounter Visit Diagnoses Diagnosis Anxiety and depression documented in this encounter Additional Health Concerns Assessment Noted Time PHQ-9 Depression Total Score: 6 09/16/19 25 10:06 AM EST documented as of this encounter Care Teams Deicer Kit Assembler Relationship Specialty Start Date End Date Mychal Fields MD [address] [place] [address] PCP - General Internal Medicine 04/30/14 Hima Fam FNP [address] [place] [address] Nurse Practitioner Family Medicine 08/01/23 documented as of this encounter
--- OUTSIDE RECORDS SUMMARY | 2024-10-29 13:05 | XMS_ITS | Encounter Summary ---
Author Organization [employer] Address [address] [facility] [address]t [place] [address] Care Team Providers Care College Service Officer Name Role Phone Mychal Fields MD [...] Description 12/23/2024 1:00 PM EDT Office Visit [facility] [address] [place] [address] Mychal Fields MD [address] [place] [address] documented as of this encounter Visit Diagnoses Not on filedocumented in this encounter Additional Health Concerns Assessment Noted Time PHQ-9 Depression Total Score: 6 09/16/19 25 10:06 AM EST documented as of this encounter Care Teams College Service Officer Relationship Specialty Start Date End Date Mychal Fields MD [address] [place] [address] PCP - General Internal Medicine 04/30/14 Hima Fam FNP [address] [place] [address] Nurse Practitioner Family Medicine 08/01/23 documented as of this encounter
--- OUTSIDE RECORDS SUMMARY | 2024-10-29 13:05 | XMS_ITS | Encounter Summary ---
Author Organization [employer] Address [address] [place] [address] 7 [place] [address] Care Team Providers Care Cemetery Laborer Name Role Phone Mychal Fields MD Primary Care Provide r Hima Fam Unavailable Unavailable Reason for Visit * Reason Onset Date Comments Appointment Request 12/04/2022 Encounter Details Date Type Department Care Team ([facility] Contact Info) Description 12/04/2022 Telephone [facility] [address] [place] [address] Mychal Fields MD [address] [place] [address] Appointment Request Social History Tobacco Use Types [...] ff/u Bp ) Please contact pt at [phone] * Telephone Encounter - Wesley Collins - 12/04/2022 2:02 PM EDT Tc from pt requesting to r/s appt on 10/19/22 ( ff/u Bp ) Please contact pt at [phone] documented in this encounter Plan of Treatment Upcoming Encounters Date Type Department Care Team (Late st Contact Info) Description 12/23/2024 1:00 PM EDT Office Visit [facility] 230 [facility] [place] [address] Mychal Fields MD [address] [place] [address] documented as of this encounter Visit Diagnoses Not on filedocumented in this encounter Additional Health Concerns Assessment Noted Time PHQ-9 Depression Total Score: 7 10/09/19 23 4:00 PM EST documented as of this encounter Care Teams Cemetery Laborer Relationship Specialty Start Date End Date Mychal Fields MD Jose Daniel [facility] [place] [address] PCP - General Internal Medicine 04/30/14 Hima Fam FNP [address] [place] [address] Nurse Practitioner Family Medicine 08/01/23 documented as of this encounter
--- OUTSIDE RECORDS SUMMARY | 2024-10-29 13:05 | XMS_ITS | Encounter Summary ---
Author Organization [employer] Address [address] [place] [address] 7 [place] [address] Care Team Providers Care Contracts Analyst Name Role Phone Mychal Fields MD Primary Care Provide r Hima Fam Unavailable Unavailable Reason for Visit * Reason Onset Date Comments Nurse Triage 08/05/2024 Encounter Details Date Type Department Care Team ([facility] st Contact Info) Description 08/05/2024 Telephone [facility] [address] [place] [address] Mychal Fields MD [address] [place] [address] Nurse Triage Social History Tobacco Use Types [...] for cough.Pt is offered to come to [facility] to be seen by provider, advised [...] Pt didn't answer. Left message to call [facility] [phone]. Advised will call back in about 15 [...] symptoms except for fever. Contact pt at [phone] (yoruba) documented in this encounter Plan of Treatment Upcoming Encounters Date Type Department Care Team (Late st Contact Info) Description 12/23/2024 1:00 PM EDT Office Visit [facility] [address] [place] [address] Mychal Fields MD [address] [place] [address] documented as of this encounter Visit Diagnoses Not on filedocumented in this encounter Additional Health Concerns Assessment Noted Time PHQ-9 Depression Total Score: 9 01/28/20 24 2:36 PM EDT documented as of this encounter Care Teams Contracts Analyst Relationship Specialty Start Date End Date Mychal Fields MD [address] [place] [address] PCP - General Internal Medicine 04/30/14 Hima Fam FNP [address] [place] [address] Nurse Practitioner Family Medicine 08/01/23 documented as of this encounter
--- OUTSIDE RECORDS SUMMARY | 2024-10-29 13:05 | XMS_ITS | Encounter Summary ---
Author Organization [employer] Address [address] [place] [address] 7t [place] [address] Care Team Providers Care Supervisor [place] Name Role Phone Mychal Fields MD Primary Care Provide r Hima Fam Unavailable Unavailable Encounter Details Date Type Department Care Team (Late Contact Info) Description 06/11/2023 Orders Only [facility] [address] [place], [place] [phone] Veda Isabel LPN Social History Tobacco Use [...] Description 12/23/2024 1:00 PM EDT Office Visit [facility] [address] [place], [place] [phone] Mychal Fields MD 230 [place], [place] [phone] documented as of this encounter Visit Diagnoses Not on filedocumented in this encounter Additional Health Concerns Assessment Noted Time PHQ-9 Depression Total Score: 0 05/10/20 23 10:38 AM EDT documented as of this encounter Care Teams Supervisor [place] Relationship Specialty Start Date End Date Mychal Fields MD [address] [place] [address] PCP - General Internal Medicine 04/30/14 Hima Fam FNP [address] [place] [address] Nurse Practitioner Family Medicine 08/01/23 documented as of this encounter
--- OUTSIDE RECORDS SUMMARY | 2024-10-29 13:05 | XMS_ITS | Encounter Summary ---
Author Organization [facility] Address [address] [place] [address] Care Team Providers Care Grocery Store Clerk Name Role Phone Mychal Fields MD Primary Care Provide r Hima Fam Unavailable Unavailable Encounter Details Date Type Department Care Team (Late st Contact Info) Description 10/27/2024 Orders Only [facility] External Provider, [facility] Social History Tobacco Use Types Packs/Day Years [...] Upcoming Encounters Date Type Department Care Team ([facility] st Contact Info) Description 12/23/2024 1:00 PM EDT Office Visit [facility] [address] [place] [address] Mychal Fields MD [address] [place] [address] documented as of this encounter Procedures Procedure Name Priority Date/Time Associated Diagnosis Comments CT ABDOMEN PELVIS WO CONTRAST Routine 10/27/2024 3:13 AM EST documented in this encounter Results * CT Abdomen Pelvis w/o Contrast (10/27/2024 3:13 AM EST) Anatomical Region Laterality Modality Body, Pelvis, Abdomen Computed T omography 10/27/2024 3:13 AM EST Narrative 10/27/2024 3:15 AM EST ? [facility] ?[address] ?[place] [address] ? CT Scan Report ? Signed ? Patient: Clark,Elaine ?MR#: [id number] ? : 1970 ?Acct:[id number] ? Age/Sex: 53 / F ?ADM Date: 02/17/25 ? Loc: HO.ED ? Attending Dr: ? Ordering Physician: Jaime Parker MD ?? Date of Service: 10/27/24 ?? Procedure(s): CT abdomen pelvis wo IV con ?? Accession Number(s): [id number] ? cc: [facility]; Jaime Parker MD ? Report Number: ?? [id number]: Total DLP = ??740.00 mGy-cm ? CLINICAL HISTORY: Mid abdominal pain ? CT abdomen and pelvis without contrast ? Comparison: CT/SR - CT ABDOMEN PELVIS W IV CON - 02/28/24 17:53 EDT ? Findings: ?? No consolidation or effusion. ? The gallbladder is not visualized, presumed surgically absent. The solid ?? organs are within normal limits. No renal stones. ?? No bowel obstruction, pneumoperitoneum, or pneumatosis. Edema identified ?? within the small bowel mesentery. ? Pelvic contents unremarkable. No bladder wall thickening. Minimal free ?? fluid present within the pelvis. Normal appendix. ?? The bones are intact. ? IMPRESSION: ?? 1. Rkbk-hk-rnrgvjda edema identified within the small bowel mesentery, ?? possibly related to a nonspecific enteritis. The small bowel loops are at ?? the upper limits of normal for size. No bowel obstruction demonstrated. ?? 2. Minimal free fluid present dependently within the pelvis, possibly ?? reactive or physiologic in etiology. ? This document has been electronically signed by: Cheo Nieves MD on ?? 10/27/2024 03:13:38 ? Dictated By: ?Cheo Nieves MD ? Signed By: ?<Electronically signed by Cheo Nieves MD in OV> ? 10/27/244 ? DD/ 2 ? TD/TT: 10/27/24312 ? [place]: ? Procedure Note Yas Almodovar - 10/27/[address] [place] [address] [address] Scan Report Signed Patient: Elaine RodasMR#: [id number] : 1970Acct:[id number] Age/Sex: 53 / FADM Date: 10/27/24 Loc: HO.ED Attending Dr: Ordering Physician: Jaime Parker MD Date of Service: 10/27/24 Procedure(s): CT abdomen pelvis wo IV con Accession Number(s): [id number] cc: [facility]; Jaime Parker MD Report Number: [id number]: Total DLP = 740.00 mGy-cm CLINICAL HISTORY: Mid abdominal pain CT abdomen and pelvis without contrast Comparison: CT/SR - CT ABDOMEN PELVIS W IV CON - 02/28/24 17:53 EDT Findings: No consolidation or effusion. The gallbladder is not visualized, presumed surgically absent. The solid organs are within normal limits. No renal stones. No bowel obstruction, pneumoperitoneum, or pneumatosis. Edema identified within the small bowel mesentery. Pelvic contents unremarkable. No bladder wall thickening. Minimal free fluid present within the pelvis. Normal appendix. The bones are intact. IMPRESSION: 1. Clqx-rw-qlszjqmw edema identified within the small bowel mesentery, possibly related to a nonspecific enteritis. The small bowel loops are at the upper limits of normal for size. No bowel obstruction demonstrated. 2. Minimal free fluid present dependently within the pelvis, possibly reactive or physiologic in etiology. This document has been electronically signed by: Cheo Nieves MD on 10/27/2024 03:13:38 Dictated By: Cheo Nieves MD Signed By: <Electronically signed by Cheo Nieves MD in OV> 10/27/244 DD/ 2 TD/TT: 10/27/24312 [place]: [facility] External Provider IMG CT PROCEDURES Final Result documented in this encounter Visit Diagnoses Not on filedocumented in this encounter Additional Health Concerns Assessment Noted Time PHQ-9 Depression Total Score: 6 09/16/19 25 10:06 AM EST documented as of this encounter Care Teams Grocery Store Clerk Relationship Specialty Start Date End Date Mychal Fields MD [address] [place] [id number] PCP - General Internal Medicine 04/30/14 Hima Fam FNP [address] [place] [id number] Nurse Practitioner Family Medicine 08/01/23 documented as of this encounter
--- OUTSIDE RECORDS SUMMARY | 2024-10-29 13:05 | XMS_ITS | Clinical Summary ---
Author Organization [employer] Address [address] [place] [address] 7 [place] [address] Care Team Providers Care Banquet Manager Name Role Phone Mychal Fields MD [...] 2 (two) hours if needed. Active rizatriptan EDUCATION ASSISTANT (Maxalt-EDUCATION ASSISTANT) 5 MG disintegrating tablet PLEASE SEE ATTACHED [...] was evaluated by Dr. Wynn at our [facility] who recommended to check D dimer [...] We are trying to get her to [facility] before the lab and xray close but [...] reports she has completed thyroid ultrasound at [facility], notes not available at this time [...] EDT): Pelvis exam indicative of this Plan: PEDAL ASSEMBLER referral Right foot pain 05/10/2023 Assessment & [...] tolerate NSAIDS Patient was eventually seen at [facility] 04/04/2024. They recommended repeat brain MRI [...] with no good results, cannot tolerate NSAIDS [facility] is not accepting new patients at the moment. Will try to refer to a different Neurologist perhaps at [facility] Assessment & Plan (01/17/2024 1:06 [...] will also be referring to Neurology at [facility] Assessment & Plan (04/03/2023 1:22 PM EDT): [...] Pt has a therapist at [facility] I recommended she speak with therapist [...] necessary. For any issues or concerns, contact [facility]. All her questions were answered [...] used to be under the care of commissioning specialist who had been prescribing Baclofen Assessment [...] used to be under the care of commissioning specialist who had been prescribing tramadol 100mg [...] without neural impingement. Pt was seen at [facility] 04/2023 and has a follow up appointment [...] without neural impingement. Pt was seen at [facility] recently has a follow up recommended PT [...] neural impingement. Pt will be referred to [facility] Smoker 02/21/2012 Assessment & Plan (04/03/2023 1:41 [...] Encounters Date Type Department Care Team Description 10/27/2024 Orders Only [facility] External Provider, [facility] 10/11/2024 Refill [facility] [address] [place] [address] Mychal Fields MD 10/11/2024 Refill [facility] [address] [place] [address] Bette Wynn MD Low vitamin D level 10/06/2024 1:15 PM EST Office Visit [facility] [address] [place] [address] Nabeel Magana MD Pre-op evaluation (Primary Dx) 10/06/2024 Refill [facility] [address] [place] [address] Mychal Fields MD Anxiety and depression 10/06/2024 Travel 10/03/2024 Telephone [facility] [place] [address] Mychal Fields MD December09/22/2024 Orders Only GENERIC EXTERNAL DATA DEPARTMENT Provider, Generic External Data 09/18/2024 Telephone [facility] [address] [place] [address] Mychal Fields MD PRE OP 09/16/2024 10:00 AM EST Office Visit [facility] [address] [place] [address] Mychal Fields MD JERRI (obstructive sleep apnea) (Primary Dx); Abnormal CT of the chest; Essential hypertension; Microscopic hematuria; Fibromyalgia; Subacute cough; Restrictive lung disease; Enlarged lymph nodes; Preventative health care 09/16/2024 Telephone [facility] [address] [place] [address] Mychal Fields MD Appointment Request 09/16/2024 Orders Only GENERIC EXTERNAL DATA DEPARTMENT Provider, Generic External Data 09/16/2024 Telephone [facility] [address] [place] [address] Mychal Fields MD Appointment Request 09/16/2024 Travel 09/11/2024 Refill [facility] [address] [place] [address] Claudette Nassar MD Anxiety and depression 09/04/2024 Telephone [facility] [address] [place] [address] Mychal Fields MD Chart Prep 08/25/2024 Telephone [facility] [address] [place] [address] Toño Lim [place] Lab order D-Dimer STAT 08/15/2024 Telephone [facility] [address] [place] [address] Margarita Reagan RN Lab Orders (STAT D-Dimer) 08/12/2024 Refill [facility] [address] [place] [address] Mychal Fields MD Anxiety and depression 08/11/2024 Refill [facility] [address] [place] [phone] Cinthya Dover ANP Essential hypertension 08/05/2024 5:20 PM EST Office Visit [facility] [address] [place], [place] [phone] Bette Wynn MD Cough in adult patient (Primary Dx) 08/05/2024 Orders Only GENERIC EXTERNAL DATA DEPARTMENT Provider, Generic External Data 08/05/2024 Travel 08/05/2024 Telephone [facility] [address] [place], [place] [phone] Mychal Fields MD Nurse Triage from Last [...] Description 12/23/2024 1:00 PM EDT Office Visit [facility] [address] [place] [address] Mychal Fields MD [address] [place], [place] [phone] Health Maintenance Due Date Last Done Comments [...] WO CONTRAST Routine 10/27/2024 3:13 AM EST XR KNEE 4+ VIEWS LEFT Routine [...] Recently Relevant to Health Maintenance Results * CT Abdomen Pelvis w/o Contrast (10/27/2024 3:13 AM EST) Anatomical Region Laterality Modality Body, Pelvis, Abdomen Computed T omography 10/27/2024 3:13 AM EST Narrative 10/27/2024 3:15 AM EST ? [facility] ?[address] ?[place] [address] ? CT Scan Report ? Signed ? Patient: Elaine Rodas ?MR#: [id number] ? : 1970 ?Acct:[id number] ? Age/Sex: 53 / F ?ADM Date: 10/27/24 ? Loc: HO.ED ? Attending Dr: ? Ordering Physician: Jaime Parker MD ?? Date of Service: 10/27/24 ?? Procedure(s): CT abdomen pelvis wo IV con ?? Accession Number(s): [id number] ? cc: [facility]; Jaime Parker MD ? Report Number: ?? [id number]: Total DLP = ??740.00 mGy-cm ? CLINICAL [...] bones are intact. ? IMPRESSION: ?? 1. Tihy-kd-mzeimnne edema identified within the small bowel mesentery, [...] by Cheo Nieves MD in OV> ? 10/27/24313 ? DD/ ? TD/TT: 10/27/24312 ? Ironing Machine Operator: ? Procedure Note Donotuseinterpreter, Image - 10/27/[address] [address] [address] Scan Report Signed Patient: Elaine RodasMR#: [id number] : 1970Acct:[id number] Age/Sex: 53 / FADM Date: 10/27/24 Loc: HO.ED Attending Dr: Ordering Physician: Jaime Parker MD Date of Service: 10/27/24 Procedure(s): CT abdomen pelvis wo IV con Accession Number(s): [id number] cc: [facility]; Jaime Parker MD Report Number: [id number]: Total DLP = 740.00 mGy-cm CLINICAL HISTORY: [...] appendix. The bones are intact. IMPRESSION: 1. Ebxb-cg-dwnhyuky edema identified within the small bowel mesentery, [...] signed by Cheo Nieves MD in OV> 10/27/24313 DD/ 2 TD/TT: 10/27/24312 Ironing Machine Operator: us [facility] External Provider IMG CT PROCEDURES Final Result * XR Knee 4+ Views Right (09/22/2024 12:50 PM EST) Anatomical Region Laterality Modality Lower Extremities, Knee Right Radiogra phic Imaging 09/22/2024 12:5 0 PM EST Narrative 09/24/2024 9:59 AM EST ? [facility] ?[address] ?[place] [address] ?XRay Report ? Signed ? Patient: Elaine Rodas ?MR#: [id number] ? : 1970 ?Acct:[id number] ? Age/Sex: 53 / F ?ADM Date: 09/22/24 ? Loc: HO.XRAY ? Attending Dr: Syed Coreas MD ? Ordering Physician: Brigid West MD ?? Date of Service: 09/22/24 ?? Procedure(s): XR knee RT 4V ?? Accession Number(s): [id number] ? cc: Brigid West MD; Mychal Long [...] or dislocation. ? Electronically signed by: ??Chidi Clair MD ??09/24/2024 09:56 AM EST RP ? Dictated By: ?Clair,Chidi S MD ? Signed By: ?<Electronically signed by Chidi S Clair, MD in OV> ?09/24/24 0956 ? DD/DT: 09/22/ 1250 ? TD/TT: 09/22/24 1312 ? Ironing Machine Operator: MSM ? Procedure Note Donotuseinterpreter, Image - 09/24/[address] [address] XRay Report Signed Patient: Elaine RodasMR#: [id number] : 1970Acct:[id number] Age/Sex: 53 / FADM Date: 09/22/24 Loc: HO.XRAY Attending Dr: Syed Coreas MD Ordering Physician: Brigid West MD Date of Service: 09/22/24 Procedure(s): XR knee RT 4V Accession Number(s): [id number] cc: Brigid West MD; Mychal Long MD [...] 09/24/24 0956 DD/ 1250 TD/TT: 09/22/24 1312 Ironing Machine Operator: GRAY us [facility] External Provider IMG XR PROCEDURES Final Result * XR Knee 4+ Views Left (09/22/2024 12:50 PM EST) Anatomical Region Laterality Modality Lower Extremities, Knee Left Radiogra phic Imaging 09/22/2024 12:5 0 PM EST Narrative 09/24/2024 10:01 AM EST ? [facility] [place] [facility] ?[address] ?[place] [address] ?XRay Report ? Signed ? Patient: Clark,Elaine ?MR#: [id number] ? : 1970 ?Acct:[id number] ? Age/Sex: 53 / F ?ADM Date: 09/22/24 ? Loc: HO.XRAY ? Attending Dr: Syed Coreas MD ? Ordering Physician: Brigid West MD ?? Date of Service: 09/22/24 ?? Procedure(s): XR knee LT 4V ?? Accession Number(s): [id number] ? cc: Brigid West MD; Mychal Long [...] DD/ 1250 ? TD/TT: 09/22/24 1312 ? Ironing Machine Operator: MSM ? Procedure Note Yas Almodovar - 09/24/[address] [address] XRay Report Signed Patient: Elaine RodasMR#: [id number] : 1970Acct:[id number] Age/Sex: 53 / FADM Date: 09/22/24 Loc: CHAPARRITA Attending Dr: Syed Coreas MD Ordering Physician: Brigid West MD Date of Service: 09/22/24 Procedure(s): XR knee LT 4V Accession Number(s): [id number] cc: Brigid West MD; Mychal Long MD [...] 09/24/24 0959 DD/ 1250 TD/TT: 09/22/24 1312 Ironing Machine Operator: GARY [facility] External Provider IMG XR PROCEDURES Final Result * XR Chest 2 Views (09/22/2024 12:50 PM EST) Anatomical Region Laterality Modality Chest Radiographic Hilda ging 09/22/2024 12:5 0 PM EST Narrative 09/24/2024 10:02 AM EST ? [facility] ?[address] ?[place] [address] ?XRay Report ? Signed ? Patient: Clark,Elaine ?MR#: [id number] ? : 1970 ?Acct:[id number] ? Age/Sex: 53 / F ?ADM Date: /13/25 ? Loc: HO.XRAY ? Attending Dr: Syed Coreas MD ? Ordering Physician: Mychal Long MD ?? Date of Service: 09/22/24 ?? Procedure(s): XR chest 2V ?? Accession Number(s): [id number] ? cc: Mychal Long MD ? EXAMINATION: [...] DD/ 1250 ? TD/TT: 09/22/24 1312 ? Ironing Machine Operator: MSM ? Procedure Note Ollieclaude, Image - 09/24/2024 [place] [address] XRay Report Signed Patient: Elaine RodasMR#: [id number] : 1970Acct:[id number] Age/Sex: 53 / FADM Date: 09/22/24 Loc: CHAPARRITA Attending Dr: Syed Coreas MD Ordering Physician: Mychal Long MD Date of Service: 09/22/24 Procedure(s): XR chest 2V Accession Number(s): [id number] cc: Mychal Long MD EXAMINATION: XR CHEST [...] 09/24/24 0959 DD/ 1250 TD/TT: 09/22/24 1312 Ironing Machine Operator: [facility] us Mychal Morris MD IMG XR PROCEDURES Fin al Result * Syphilis Screen (09/22/2024 12:35 PM EST) Syphilis Screen Nonreactive Nonreactive [facility] 09/22/2024 12:3 5 PM EST 09/22/2024 12:35 PM EST us Generic External Data Provider LAB BLOOD ORDERAB LES Final Result Performing Organization Address [facility] Co de Phone Number [facility] [address] [place] [phone] * Hepatitis C Ab (09/22/2024 12:35 PM EST) Hepatitis C Antibody Nonreactive Nonreactive [facility] Comment:Antibodies to HCV no t detected; does not exclude early acuteHCV infection. 09/22/2024 12:3 5 PM EST 09/22/2024 12:35 PM EST Generic External Data Provider LAB BLOOD ORDERAB LES Final Result Performing Organization Address City/[facility] Co de Phone Number [facility] [address] [place] [phone] * Creatinine, Serum (09/22/2024 12:35 PM EST) Only the most recent of2 resultswithin the time period is included. Creatinine, Serum 0.89 0.5 - 1.4 mg/dL [facility] Estimated Glomerular Filt Rate >60 [facility] Comment:Chronic Kidney Disea se: Estimated GFR < 60 mL/min/1.14n3Zfqczw Kidney Disease: Estimated GFR < 15 mL/min/1.73m2 09/22/2024 12:3 5 PM EST 09/22/2024 12:35 PM EST Generic External Data Provider LAB BLOOD ORDERAB LES Final Result Performing Organization Address [facility]/ZIP Co de Phone Number [facility] [address] [place] [phone] * Hepatitis B surface antigen, EIA (09/22/2024 12:35 PM EST) Hepatitis B Surface Ag Negative Negative [facility] 09/22/2024 12:3 5 PM EST 09/22/2024 12:35 PM EST Generic External Data Provider LAB BLOOD ORDERAB LES Final Result Performing Organization Address [facility] Co de Phone Number [facility] [address] [place] [phone] * HIV-1/2 Antigen and Antibodies, Fourth Generation, with Reflexes (09/22/2024 12:35 PM EST) Pathologist [facility] HIV AB/AG Nonreactive Nonreactive [facility] Comment:HIV-1 p24 Ag and/or HIV-1/HIV-2 Ab not detected.A test result that is nonreactive does not exclude thepossibility of exposure to or infection with HIV-1 and/orHIV-2. Nonreactive results in this assay for individualswith prior exposure to HIV-1 and/or HIV-2 may be due toantigen and antibody levels that are below the limit ofdetection of this assay.The Off & Away HIV Ag/Ab Combo assay result andsupplemental assay results should be interpreted inconjunction with the patient's clinical presentation,history and other laboratory results. If the results areinconsistent with clinical evidence, additional testing issuggested to confirm the result. 09/22/2024 12:3 5 PM EST 09/22/2024 12:35 PM EST us Generic External Data Provider LAB BLOOD ORDERAB LES Final Result Performing Organization Address [facility]/ZIP Co de Phone Number [facility] [address] [place] [phone] * BUN (Blood Urea Nitrogen) (09/22/2024 12:35 PM EST) Only the most recent of2 resultswithin the time period is included. [facility] Urea Nitrogen (BUN) 13 9 - 16 mg/dL [facility] 09/22/2024 12:3 5 PM EST 09/22/2024 12:35 PM EST Generic External Data Provider LAB BLOOD ORDERAB LES Final Result Performing Organization Address [facility] Number [facility] [address] [place] [phone] * D Dimer High Sensitivity (09/16/2024 11:09 AM EST) [facility] D Dimer High Sensitivity 203 NG/ML [facility] Comment:D-DIMER HS REFERENCE RANGENote: Our assay [...] BLOOD ORDERABLES Final Result Performing Organization Address [facility] Co de Phone Number [facility] [address] [place] [phone] * High Sensitivity Troponin I (08/05/2024 6:21 PM EST) [facility] TROPONIN I HIGH SENSITIVITY <2.7 <3.5 - 17.0 ng/L [facility] Comment:The Hernandez high sens itivity Troponin-I results should beused in conjunction with other diagnostic information suchas ECG, clinical observations and information, and patientsymptoms to aid in the diagnosis of CO. 08/05/2024 6:21 PM EST 08/05/2024 6:24 PM EST us Generic External Data Provider LAB BLOOD ORDERAB LES Final Result [facility] [address] [place] [phone] * (ABNORMAL) CBC auto differential (08/05/2024 6:21 PM EST) White Blood Count 8.2 4.8 - 10.8 X10*3/uL [facility] Red Blood Count 4.26 4.20 - 5.50 X10*6/uL [facility] Hemoglobin 12.5 12.0 - 16.0 g/dl [facility] Hematocrit 37.0 37.0 - 47.0 % [facility] Mean Corpuscular Volume 86.9 80.0 - 98.0 fL [facility] Mean Corpuscular Hemoglobin 29.3 27.0 - 33.0 pg [facility] Mean Corpuscular HGB Conc 33.8 31.0 - 35.0 g/dl [facility] Red Cell Distribution Width 12.9 11.0 - 16.0 % [facility] Platelet Count 269 160 - 400 X10*3/uL [facility] Mean Platelet Volume 9.6 9.4 - 12.3 fL [facility] Neutrophils Percent Auto 47.3 45 - 73 % [facility] Imm Gran Pct Auto 0.2 0.0 - 0.4 % [facility] Lymphocytes Percent Auto 45.0(H) 20 - 40 % [facility] Monocytes Percent Auto 4.5 2 - 11 % [facility] Eosinophils Percent Auto 2.3 0 - 4 % [facility] Basophils Percent Auto 0.7 0 - 2 % [facility] NRBC Pct Auto 0.0 0.0 - 0.2 /100WBC [facility] Neutrophils Absolute Auto 3.9 2.0 - 8.3 x10*3/uL [facility] Imm Gran Abs Auto 0.02 0.00 - 0.03 X10*3/uL [facility] Lymphocytes Absolute Auto 3.7 1.2 - 4.9 X10*3/uL [facility] Monocytes Absolute Auto 0.4 0.1 - 1.2 X10*3/uL [facility] Eosinophils Absolute Auto 0.2 0.0 - 0.4 X10*3/uL [facility] Basophils Absolute Auto 0.1 0.0 - 0.2 X10*3/uL [facility] NRBC Abs Auto 0.000 0.0 - 0.012 X10*3/uL [facility] 08/05/2024 6:21 PM EST 08/05/2024 6:24 PM EST us Generic External Data Provider LAB BLOOD ORDERAB LES Final Result Performing Organization Address City/State/[facility] Co de Phone Number [facility] [address] [place] [phone] * Prothrombin Time-INR (08/05/2024 6:21 PM EST) Prothrombin Time 10.9 10.9 - 12.4 SEC [facility] INTERNATIONAL NORM RATIO 0.9 0.9 - 1.1 [facility] Comment:INTERNATIONAL NORMAL IZED RATIO (INR) REFERENCE [...] Provider LAB BLOOD ORDERAB LES Final Result [facility] [address] [place] [phone] * (ABNORMAL) Comprehensive Metabolic Panel (08/05/2024 6:21 PM EST) Sodium 139 135 - 145 mmol/L [facility] Potassium 3.9 3.3 - 5.1 mmol/L [facility] Chloride 105 96 - 108 mmol/L [facility] Carbon Dioxide 29 22 - 29 mmol/L [facility] Anion Gap 9(L) 12 - 20 [facility] Urea Nitrogen (BUN) 11 9 - 16 mg/dL [facility] Creatinine, Serum 0.86 0.5 - 1.4 mg/dL [facility] Creatinine Clr Calc Pharmacy 88.6 [facility] Comment:Provided height and weight: 167.64 cm,96.5 kg.eGFR (calculated from the MDRD study equation) and eCrCl(calculated from the Cockcroft-Gault equation) are based ondifferent parameters and may not yield comparable results.If eCrCl result is absurd, please check patient'sheight/weight. Estimated Glomerular Filt Rate >60 [facility] Comment:Chronic Kidney Disea se: Estimated GFR < 60 mL/min/1.77w5Ggolix Kidney Disease: Estimated GFR < 15 mL/min/1.73m2 Glucose 98 60 - 115 mg/dL [facility] Calcium 9.3 8.4 - 10.2 mg/dL [facility] Bilirubin, Total 0.2 0.0 - 1.0 mg/dL [facility] Aspartate Amino Transferase 17 5 - 31 U/L [facility] Alanine Aminotransferase 14 0 - 31 U/L [facility] Total Protein 7.6 6.5 - 8.0 g/dL [facility] Albumin Level 3.9 3.5 - 5.0 g/dL [facility] Alkaline Phosphatase 114 39 - 117 U/L [facility] 08/05/2024 6:21 PM EST 08/05/2024 6:24 PM EST Generic External Data Provider LAB BLOOD ORDERAB LES Final Result Performing Organization Address [facility]/ZIP Co de Phone Number [facility] [address] [place] [phone] * POCT Rapid COVID-19 Binax NOW (08/05/2024 5:31 PM EST) Rapid COVID Ag Negative QC Media Lot # [id number] Lot# Expiration Date Swab 08/05/2024 5:31 PM EST Bette Wynn MD POINT OF CARE TEST ENTER/E DIT ORDERABLES Final Result * POCT Rapid Influenza B HERNANDEZ ID NOW (08/05/2024 5:30 PM EST) Pathologist [facility] Influenza B Negative Negative, Indeterminate [facility] QC Media Lot # [id number] [facility] Lot# Expiration Date [facility] Swab 08/05/2024 5:30 PM EST Bette Wynn MD POINT OF CARE TEST ENTER/E DIT ORDERABLES Final Result Performing Organization Address City/[facility]/ZIP Co de Phone Number [facility] [address] [place] [phone] * POCT Rapid Influenza A HERNANDEZ ID NOW (08/05/2024 5:30 PM EST) Pathologist [facility] Influenza A Negative Negative, Indeterminate [facility] QC Media Lot # [id number] [facility] Lot# Expiration Date [facility] Swab 08/05/2024 5:30 PM EST Bette Wynn MD POINT OF CARE TEST ENTER/E DIT ORDERABLES Final Result [facility] [address] [place] [address] [phone] * BI Mammogram Screening Tomosynthesis Bilateral (09/24/2023 4:24 PM EST) Anatomical Region Laterality Modality Breast Bilateral Mammography 09/24/2023 4:24 PM EST Narrative 10/12/2023 4:26 PM EST ? [facility] ?[address] ?[place] [address] ? Mammography Report ? Signed ? Patient: Elaine Rodas ?MR#: [id number] ? : 1970 ?Acct:[id number] ? Age/Sex: 52 / F ?ADM Date: 09/24/23 ? Loc: HO.US ? Attending Dr: Cecily Schwab CNM ? Ordering Physician: CECILY CSHWAB CNM ?Results: 1 ?? Negative ? Date of Service: 09/24/23 ?Follow Up: 1 Year From Orig ?? inal Mammogram ? Procedure(s): MM tomosynthesis screening BI ?? Accession Number(s): [id number] ? cc: Mychal Long MD; CECILY SCHWAB [...] in OV> ? 10/12/23 1622 ? DD/ ? TD/TT: ? Ironing Machine Operator: ? Procedure Note Yas Almodovar - 10/12/[address] [address] Mammography Report Signed Patient: Elaine RodasMR#: [id number] : 1970Acct:[id number] Age/Sex: 52 / FADM Date: 09/24/23 Loc: HO. Attending Dr: Cecily Schwab CNM Ordering Physician: CECILY SCHWABesults: 1 Negative Date of Service: 09/24/23Follow Up: 1 Year From Orig inal Mammogram Procedure(s): MM tomosynthesis screening BI Accession Number(s): [id number] cc: Mychal Long MD; CECILY SHCWAB CNM EXAMINATION: MM SCREENING DIGITAL BREAST TOMOSYNTHESIS, [...] in OV> 10/12/23 1622 DD/ 1624 TD/TT: Ironing Machine Operator: Cecily Schwab CNM IMG BI PROCEDURES Final R esult * HPV mRNA E6/E7 w/Reflex to HPV Genotypes 16, 18/45 (08/23/2023 2:22 PM EST) HPV nRNA E6/E7 Not Detected Not Detected [facility] Comment:Methodology: Transcr iption-Mediated AmplificationThis assay detects E6/E7 viral messenger RNA (mRNA) from 14high-risk HPV types (16,18,31,33,35,39,45,51,52,56,58,59,66,68).Cervical sources are required for HPV testing.If a vaginal source from a patient who has had atotal hysterectomy with removal of cervix wassubmitted, please contact the testing laboratoryfor alternative testing options.For additional information, please refer [email or web address](This link if provided for information/educational purposes only.)THIS TEST WAS PERFORMED AT:[facility] [place] [phone] PRESSLEY MD HPV mRNA E6/E7 TNP [facility] HPV 16 RNA TNP [facility] HPV 18/45 RNA TNP [facility] 08/23/2023 2:22 PM EST 08/24/2023 9:35 AM EST us Cecily Schwab [facility] CYTOLOGY ORDERABLES F inal Result [facility] [address] [place] [address] [phone] * Pap Smear (08/23/2023 2:22 PM EST) Swab Cervix uteri structure / Unknown 08/23/2023 2:22 PM EST 08/24/2023 9:35 AM EST Narrative [facility] - 09/04/2023 1:23 PM EST ----- ------- Name: Elaine Rodas ?Age/Sex: 52/F ? : 1970 Unit#: [id number] ?? Attend Dr: ?Re08/23/23 ?Status: PRE REF ? Location: HO.LNP ?Disch: ? ----- ------- SPEC : [id number] ?RECD: 08/24/2317 ? STATUS: ??SOUT ? REQ NUM: [id number] ? CHAPIN: 08/23/23-2927 ? SUBM DR: CECILY SCHWAB CNM ? [...] 66, 68) ?? HPV testing performed by [facility], [place], [place]. ??See reference laboratory ?? portion of the EMR for entire report. ?Clinical Information LMP: Postmenopausal Previous PAP test: Unknown date/findings Other history: Abnormal bleeding ? Material Received ?? ThinPrep-Cervical ----- ------- Signed (signature on file) NATHAN Medrano (ASCP) 09/04/23 1323 ? ----- ------- ? END OF REPORT ? Cecily Schwab [facility] CYTOLOGY ORDERABLES F inal Result [facility] [address] [place] [phone] * Colonoscopy (08/30/2022) Pathologist [facility] Colonoscopy Normal Normal Historical Provider HEALTH MAINTENANCE Final Result * (ABNORMAL) LIPID PANEL, STANDARD (06/17/2020 3:00 PM EDT) HDL Cholesterol 53 > OR = 50 mg/dL [facility] Triglycerides 87 <150 mg/dL [facility] [...] ?? Mina MARRERO et al. ASHUTOSH. 2013;310(19): 5655-2697 ?? (http://education.51hejia.com.Hackers / Founders/faq/EQP958) Chol/HDLC Ratio 3.4 <5.0 (calc) [facility] 06/17/2020 3:00 PM EDT us Mychal Morris MD LAB BLOOD ORDERABLES Final Result [facility] [address] from Last 3 Months or Most Recently Relevant to Health Maintenance Insurance Revee C3 Care Teams Banquet Manager Relationship Specialty Start Date End Date Mychal Fields MD [address] [place] [phone] PCP - General Internal Medicine 04/30/14 Hima Fam FNP [address] [place] [address] Nurse Practitioner Family Medicine 08/01/23
--- OUTSIDE RECORDS SUMMARY | 2024-10-29 13:05 | XMS_ITS | Encounter Summary ---
Author Organization [employer] Address [address] [place] [address] 7t [place] [address] Care Team Providers Care Drawer In Jacquard Loom Name Role Phone Mychal Fields MD Primary Care Provide r Hima Fam Unavailable Unavailable Encounter Details Date Type Department Care Team (Late st Contact Info) Description 12/05/2022 Orders Only [facility] [address] [place], [place] [phone] Veda Isabel LPN Social History Tobacco Use [...] Description 12/23/2024 1:00 PM EDT Office Visit [facility] [address] [place], [place] [phone] Mychal Fields MD [address] [place], [place] [phone] documented as of this encounter Visit Diagnoses Not on filedocumented in this encounter Additional Health Concerns Assessment Noted Time PHQ-9 Depression Total Score: 7 10/09/19 23 4:00 PM EST documented as of this encounter Care Teams Drawer In Jacquard Loom Relationship Specialty Start Date End Date Mychal Fields MD [address] [place] [address] PCP - General Internal Medicine 04/30/14 Hima Fam FNP [address] [place] [address] Nurse Practitioner Family Medicine 08/01/23 documented as of this encounter
--- OUTSIDE RECORDS SUMMARY | 2024-10-29 13:05 | XMS_ITS | Encounter Summary ---
Author Organization [employer] Address [address] [place] [address] 7 [place] [address] Care Team Providers Care Sustainability Communicator Name Role Phone Mychal Fields MD Primary Care Provide r Hima Fam Unavailable Unavailable Reason for Visit * Reason Onset Date Comments Bhavana Recall 10/03/2024 Encounter Details Date Type Department Care Team ([facility] Contact Info) Description 10/03/2024 Telephone [facility] [address] [place] [address] Mychal Fields MD [address] [place] [address] December Recall Social History Tobacco Use Types [...] [place] - 10/03/2024 3:37 PM EST T/C- Combiner Operator Left Voice Mail to return call to schedule an appointment. Recall letter sent. Appointment: Office Visit Note: HTN Month: December With: Annalisa Please schedule appointment if Patient calls Back. documented in this encounter Plan of Treatment Upcoming Encounters Date Type Department Care Team (Late st Contact Info) Description 12/23/2024 1:00 PM EDT Office Visit [facility] [address] [place] [address] Mychal Fields MD [address] [place] [address] documented as of this encounter Visit Diagnoses Not on filedocumented in this encounter Additional Health Concerns Assessment Noted Time PHQ-9 Depression Total Score: 6 09/16/19 25 10:06 AM EST documented as of this encounter Care Teams Sustainability Communicator Relationship Specialty Start Date End Date Mychal Fields MD [address] [place] [address] PCP - General Internal Medicine 04/30/14 Hima Fam FNP [address] [place] [address] Nurse Practitioner Family Medicine 08/01/23 documented as of this encounter
--- OUTSIDE RECORDS SUMMARY | 2024-10-29 13:05 | XMS_ITS | Encounter Summary ---
Author Organization [employer] Address [address] [place] [address] [place], [place] [address] Care Team Providers Care Sorting Machine Operator Name Role Phone Mychal Fields MD Primary Care Provide r Hima Fam Unavailable Unavailable Encounter Details Date Type Department Care Team (Late st Contact Info) Description 04/24/2023 Orders Only [facility] MEDICINE [address] [place] [phone] Zena Harley MD [address] [place] [address] [phone] Acquired clavicle deformity (Primary Dx) Social History [...] Description 12/23/2024 1:00 PM EDT Office Visit [facility]INE [address] [place] [address] [phone] Mychal Fields MD [address] [place] [address] [phone] Scheduled Orders Name Type Priority Associated Diagnoses [...] EDT Narrative 05/14/2023 4:45 PM EDT ? [facility] ?[address] ?[place] [address] ?XRay Report ? Signed ? Patient: Elaine Rodas ?MR#: [id number] ? : 1970 ?Acct:[id number] ? Age/Sex: 52 / F ?ADM Date: 05/14/23 ? Loc: HO.ED ? Attending Dr: ? Ordering Physician: Vee Castano NP ?? Date of Service: 05/14/23 ?? Procedure(s): XR chest 2V ?? Accession Number(s): [id number] ? cc: Mychal Long MD; Vee Castano [...] 05/14/231641 ? DD/ 23 ? TD/TT: ? Yard Pipe Grader: SUJ ? Procedure Note Didiermateojacoboparrishmallory, Image - 05/14/[address] [address] XRay Report Signed Patient: Elaine RodasMR#: [id number] : 1970Acct:[id number] Age/Sex: 52 / FADM Date: 05/14/23 Loc: HO.ED Attending Dr: Ordering Physician: Vee Castano NP Date of Service: 05/14/23 Procedure(s): XR chest 2V Accession Number(s): [id number] cc: Mychal Long MD; Vee Castano NP [...] in OV> 05/14/23 1642 DD/ 1624 TD/TT: Yard Pipe Grader: DORIAT [employer] External Provider IMG XR PROCEDURES Edited Result - Final * XR Foot 3+ Views Right (05/10/2023 11:44 AM EDT) Anatomical Region Laterality Modality Lower Extremities, Foot Right Radiogra phic Imaging 05/10/2023 11:4 4 AM EDT Narrative 05/10/2023 12:08 PM EDT ?[facility] ?[address] ?[place] [address] ?XRay Report ? Signed ? Patient: Clark,Elaine ?MR#: [id number] ? : 1970 ?Acct:[id number] ? Age/Sex: 52 / F ?ADM Date: 08/31/23 ? Loc: HO.HHCX ? Attending Dr: Mychal Long MD ? Ordering Physician: Mychal Long MD ?? Date of Service: 05/10/23 ?? Procedure(s): XR foot RT min 3V ?? Accession Number(s): [id number] ? cc: Mychal Long MD ? EXAMINATION: [...] 1205 ? DD/ 1144 ? TD/TT: ? Yard Pipe Grader: GR ? Procedure Note Yas Almodovar - 05/10/2023 [place] [address] XRay Report Signed Patient: Elaine RodasMR#: [id number] : 1970Acct:[id number] Age/Sex: 52 / FADM Date: 05/10/23 Loc: HO.HHCX Attending Dr: Mychal Long MD Ordering Physician: Mychal Long MD Date of Service: 05/10/23 Procedure(s): XR foot RT min 3V Accession Number(s): [id number] cc: Mychal Long MD EXAMINATION: XR FOOT, [...] in OV> 05/10/23 1205 DD/ 1144 TD/TT: Yard Pipe Grader: YULISSA us Mychal Morris MD IMG XR PROCEDURES Fin al Result * FL Esophagus Barium Swallow w/Air (05/08/2023 10:19 AM EDT) Anatomical Region Laterality Modality Head, Neck Radiographic Hilda ging 05/08/2023 10:1 9 AM EDT Narrative 05/08/2023 4:35 PM EDT ? [facility] ?[address] ?[place] [address] ? Fluoroscopy Report ? Signed ? Patient: Elaine Rodas ?MR#: [id number] ? : 1970 ?Acct:[id number] ? Age/Sex: 52 / F ?ADM Date: 05/08/23 ? Loc: HO.XRAY ? Attending Dr: Mychal Long MD ? Ordering Physician: Mychal Long MD ?? Date of Service: 05/08/23 ?? Procedure(s): FL barium swallow with air ?? Accession Number(s): [id number] ? cc: Mychal Long MD ? EXAMINATION: [...] 1632 ? DD/ 1019 ? TD/TT: ? Yard Pipe Grader: ? Procedure Note Nishi, Image - 05/08/[address] [address] Fluoroscopy Report Signed Patient: Elaine RodasMR#: [id number] : 1970Acct:[id number] Age/Sex: 52 / FADM Date: 05/08/23 Loc: [facility] Attending Dr: Mychal Long MD Ordering Physician: Mychal Long MD Date of Service: 05/08/23 Procedure(s): FL barium swallow with air Accession Number(s): [id number] cc: Mychal Long MD EXAMINATION: XR FLUOROSCOPY [...] in OV> 05/08/23 1632 DD/ 1019 TD/TT: Yard Pipe Grader: Mychal Morris MD IMG FLUOROSCOPY UBALDO HERNANDES Final Result documented in this encounter Visit Diagnoses Diagnosis 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 documented in this encounter Additional Health Concerns Assessment Noted Time PHQ-9 Depression Total Score: 8 02/09/20 23 11:04 AM EDT documented as of this encounter Care Teams Sorting Machine Operator Relationship Specialty Start Date End Date Mychal Fields MD [address] [place] [address] PCP - General Internal Medicine 04/30/14 Hima Fam FNP [address] [place] [address] Nurse Practitioner Family Medicine 08/01/23 documented as of this encounter
--- OUTSIDE RECORDS SUMMARY | 2024-10-29 13:05 | XMS_ITS | Encounter Summary ---
Author Organization [employer] Address [address] [place] [address] 7t [place] [address] Care Team Providers Care Plant Biology Professor Name Role Phone Mychal Fields MD Primary Care Provide r Hima Fam Unavailable Unavailable Reason for Visit * Reason Comments Med Refill Encounter Details Date Type Department Care Team ([facility] st Contact Info) Description 07/27/2023 Refill [facility] [address] [place] [address] Mychal Fields MD [address] [place], [place] [phone] Social History Tobacco Use Types Packs/Day Years [...] 1:00 PM EDT Office Visit [facility] [address] [place] [address] Mychal Fields MD [address] [place] [address] documented as of this encounter Visit Diagnoses Not on filedocumented in this encounter Additional Health Concerns Assessment Noted Time PHQ-9 Depression Total Score: 0 05/10/20 23 10:38 AM EDT documented as of this encounter Care Teams Plant Biology Professor Relationship Specialty Start Date End Date Mychal Fields MD [address] [place] [address] PCP - General Internal Medicine 04/30/14 Hima Fam FNP [address] [place] [address] Nurse Practitioner Family Medicine 08/01/23 documented as of this encounter
--- OUTSIDE RECORDS SUMMARY | 2024-10-29 13:05 | XMS_ITS | Encounter Summary ---
Author Organization [employer] Address [address] [place] [address] [address] Care Team Providers Care Turner And Former Automatic Name Role Phone Mychal Fields MD Primary Care Provide r Hima Fam Unavailable Unavailable Reason for Visit * Reason Comments Pre-op Exam Date of Surgery: 08/04Surgical procedure being done: Cataracts right ey Encounter Details Date Type Department Care Team (Late st Contact Info) Description 10/06/2024 1:15 PM EST Office Visit [facility] PEDS [address] [place] [address] Nabeel Magana MD [address] [place] [address] Pre-op evaluation (Primary Dx) Social History Tobacco [...] AN EMPTY STOMACH 180 tablet 0 rizatriptan BRANDS EDITOR (Maxalt-BRANDS EDITOR) 5 MG disintegrating tablet PLEASE SEE ATTACHED [...] 1:00 PM EDT Office Visit [facility] [address] [place] [address] Mychal Fields MD [address] [place] [address] documented as of this encounter Visit Diagnoses Diagnosis Pre-op evaluation- Primary documented in this encounter Additional Health Concerns Assessment Noted Time PHQ-9 Depression Total Score: 6 09/16/19 25 10:06 AM EST documented as of this encounter Care Teams Turner And Former Automatic Relationship Specialty Start Date End Date Mychal Fields MD [address] [place] [address] PCP - General Internal Medicine 04/30/14 Hima Fam FNP [address] [place] [address] Nurse Practitioner Family Medicine 08/01/23 documented as of this encounter
--- OUTSIDE RECORDS SUMMARY | 2024-10-29 13:05 | XMS_ITS | Encounter Summary ---
Author Organization [employer] Address [address] [place] [address] 7 [place] [address] Care Team Providers Care Community Director Name Role Phone Mychal Fields MD Primary Care Provide r Hima Fam Unavailable Unavailable Reason for Visit * Reason Onset Date Comments Medication Question 09/18/2022 Appointment 09/18/2022 T/C placed to pt regarding to schedule her next follow up for psychopharmacology. Pt agrees to schedule for 10/09/22 @ 4pm. Encounter Details Date Type Department Care Team (Late st Contact Info) Description 09/18/2022 Telephone [facility] MEDICINE [address] [place], [place] [phone] Mychal Fields MD [address] [place], [place] [phone] Medication Question; Appointment (T/C placed to pt [...] know medication name . Please contact at [phone] documented in this encounter Plan of Treatment Upcoming Encounters Date Type Department Care Team (Late st Contact Info) Description 12/23/2024 1:00 PM EDT Office Visit [facility]INE [address] [place], [place] [phone] Mychal Fields MD [address] [place] [address] documented as of this encounter Visit Diagnoses Not on filedocumented in this encounter Care Teams Community Director Relationship Specialty Start Date End Date Mychal Fields MD [address] [place] [address] PCP - General Internal Medicine 04/30/14 Hima Fam FNP [address] [facility] [place] [address] Nurse Practitioner Family Medicine 08/01/23 documented as of this encounter
--- OUTSIDE RECORDS SUMMARY | 2024-10-29 13:05 | XMS_ITS | Encounter Summary ---
Author Organization [employer] Address [address] [place] [address] 7t [place] [address] Care Team Providers Care Political Aide Name Role Phone Mychal Fields MD Primary Care Provide r Hima Fam Unavailable Unavailable Reason for Visit * Reason Comments Med Refill Encounter Details Date Type Department Care Team (Late Contact Info) Description 10/05/2022 Refill [facility] [address] [place] [address] Hima Fam FNP Anxiety state Social History [...] Description 12/23/2024 1:00 PM EDT Office Visit [facility] [address] [place] [address] Mychal Fields MD [address] [place] [address] documented as of this encounter Visit Diagnoses Diagnosis Anxiety state Anxiety state, unspecified documented in this encounter Care Teams Political Aide Relationship Specialty Start Date End Date [place]chal [place] [address] PCP - General Internal Medicine 04/30/14 Hima Fam FNP [address] [place] [address] [place] [address] Nurse Practitioner Family Medicine 08/01/23 documented as of this encounter
--- OUTSIDE RECORDS SUMMARY | 2024-10-29 13:05 | XMS_ITS | Encounter Summary ---
Author Organization [employer] Address [address] [place] [address] 7 [place] [address] Care Team Providers Care Professor Of Management Name Role Phone Mychal Fields MD Primary Care Provide r Hima Fam Unavailable Unavailable Encounter Details Date Type Department Care Team (Late st Contact Info) Description 12/04/2022 Telephone [facility] MEDICINE [address] [place] [address] [phone] Mychal Fields MD [address] [place], [place] [phone] Social History Tobacco Use Types Packs/Day Years [...] Description 12/23/2024 1:00 PM EDT Office Visit [facility] MEDICINE [address] [place] [address] [phone] Mychal Fields MD [address] [place], [place] [phone] documented as of this encounter Visit Diagnoses Not on filedocumented in this encounter Additional Health Concerns Assessment Noted Time PHQ-9 Depression Total Score: 7 10/09/19 23 4:00 PM EST documented as of this encounter Care Teams Professor Of Management Relationship Specialty Start Date End Date Mychal Fields MD [address] [place] [address] PCP - General Internal Medicine 04/30/14 Hima Fam FNP [address] [place] [address] Nurse Practitioner Family Medicine 08/01/23 documented as of this encounter
== END 2024-10-29 12:55 | disposition home or self-care (01) ==
LOC: HO.MAMMO 12:54
PROVIDERS: PCP Internal Medicine; Visit Provider Internal Medicine
DX: Z12.31 Encounter for screening mammogram for malignant neoplasm of breast (principal)
CPT/HCPCS: 77063; 77067

== ENCOUNTER → 2024-10-29 12:58 | Outpatient (BNV) | payer MEDICAID, SELFPAY | PROVIDERS: PCP Internal Medicine; Visit Provider Internal Medicine | DX: Z12.31 Encounter for screening mammogram for malignant neoplasm of breast (principal) | CPT/HCPCS: 77063; 77067 ==

== ENCOUNTER 2024-10-30 10:42 | Outpatient (AMB) | payer MEDICAID, SELFPAY ==
--- NOTE | 2024-10-30 10:44 | MHC.OFFVIS ---
Vital Signs 10/30/24 10:51 Height 5 ft 5 in Weight 216 lb 7.903 oz BMI 36.0 BP 132/74 Blood Pressure Location Lt brachial Position Sitting Respiration 16 Pulse 92 Pulse Source Pulse Oximeter Pulse Oximetry (%) 98 Oxygen Delivery Method Room Air Intake Visit Reasons: euflexxa Intake Note: Patient presents for Euflexxa injection. Sole Conditioner Required: Yes Sole Conditioner Language: Manager Category Services: Sole Conditioner Offered & Declined Information Interpreted: non-clinical & clinical Allergies Penicillins Allergy (Mild, Verified 10/30/24 10:50) VAGINAL FUNGUS INFECTION lisinopril [LISINOPRIL] Allergy (Unknown, Verified 10/30/24 10:50) COUGH verapamil Allergy (Unknown, Verified 10/30/24 10:50) unknown Medication List - Last Reconciled 10/30/24 by Brigid West MD albuterol sulfate 90 mcg/actuation (Ventolin HFA) 2 puffs PO Q4H PRN amlodipine 10 mg PO DAILY beclomethasone dipropionate 40 mcg/actuation (Qvar RediHaler) 2 inhalations inhalation BID blood pressure test kit-large As directed cholecalciferol (vitamin D3) (Vitamin D3) 50 mcg PO DAILY citalopram 20 mg PO DAILY clonazepam 1 mg PO TID PRN dexlansoprazole (Dexilant) 60 mg PO DAILY 90 days estradiol 0.01%(0.1mg/gram) 1 g vaginal 2XW fluticasone furoate 100 mcg/actuation (Arnuity Ellipta) 1 inh inhalation DAILY fluticasone furoate-vilanterol 200-25 mcg/dose (Breo Ellipta) 1 inh inhalation DAILY fluticasone propionate 50 mcg/actuation 1 spray intranasal DAILY lidocaine 5% patches topical loperamide (Imodium A-D) 2 mg PO Q6H PRN loratadine 10 mg PO DAILY losartan 100 mg PO DAILY metronidazole 500 mg PO BID 7 days minoxidil 2.5 mg PO QAM nicotine (polacrilex) 2 mg buccal Q2H ondansetron 4 mg PO Q6-8H PRN sennosides (senna) 1-2 tabs qhs orally bedtime; 30 days tramadol 50 mg PO TID PRN 30 days valacyclovir 500 mg PO BID PRN zolpidem 10 mg PO BEDTIME PRN HPI Comments Details: Patient is a 53 y.o. female depression, hypertension who is here today for follow up of polyarticular osteoarthritis and fibromyalgia Interval History: Patient last seen 10/14/24. At that time patient was receiving bilateral Euflexxa injections for bilateral knee osteoarthritis. Here today for bilateral knee Euflexxa 2nd dose Rheumatologic History: Patient established care with Rheumatology 01/30/2022 Fibromyalgia and polyarticular osteoarthritis She has tried and failed Lyrica, gabapentin cymbalta, amitriptyline, and her insurance did not approve Savella. She estimates that she gets 6 hours of sleep at night and is taking ambien. Unable to get tramadol due to insurance issues and baclofen did not help Current Rheumatology Medication(s): [facility] Medical History (Updated 10/30/24 @ 10:50 by WESLEY Gtz) Cataract, right eye Bilateral primary osteoarthritis of knee Gallstone pancreatitis Palpitations Fibromyalgia Depression Glaucoma HTN (hypertension) Surgical History H/O colonoscopy History of tubal ligation Hx of carpal tunnel repair Hx of cholecystectomy Hx of knee surgery Family History Father Kidney disease Mother CVD (cardiovascular disease) Colon cancer Social History Alcohol intake: never Patient Tobacco Use Status: Current everyday Tobacco user Cigarette Packs Per Day: 0.5 Cigarettes Per Day: 10 Years Smoked: 30 Female Reproductive History Menstrual Age of Menarche: 9 Review of Systems Const Details: Review of Systems Constitutional: Denies fever, chills, weight loss ENT: Denies vision changes, eye pain or eye redness, dental caries, dry mouth GI: Denies nausea, vomiting, diarrhea, abdominal pain, change in BM Pulm: Denies SOB, PRASAD, hemoptysis, wheezing Cards: Denies chest pain, palpitations Skin: Denies Raynaud's, rash, nail changes, photosensitivity, OFFSET PRINTING OPERATOR: Denies headaches, weakness, paresthesias, recurrent falls MSK: as per HPI All other systems reviewed and are unremarkable except noted above Physical Exam Vital Signs: Last Vital Signs Pulse 92 10/30/24 10:51 Resp 16 10/30/24 10:51 BP 132/74 10/30/24 10:51 Pulse Ox 98 10/30/24 10:51 Oxygen Delivery Method Room Air 10/30/24 10:51 BMI result Body Mass Index 36.0 Vital signs reviewed Physical Examination CONSTITUITIONAL Patient alert and cooperative. Well appearing. Difficulty rising from chair likely due to pain CHEST/RESPIRATORY SYSTEM Normal respiratory effort and able to speak in complete sentences. ?Clear to auscultation bilaterally. ?No crackles, rales, rhonchi, wheezes heard. CARDIAC SYSTEM Regular rate and rhythm. ?S1 and S2 heard no murmurs. ?Radial pulses intact bilaterally MSK Hands: ?Good storage manager strength bilaterally. No deformities noted. ?No synovitis noted to the MCPs, PIPs or DIPs. ?No tenderness to palpation of these joints. Wrists: ?Full range of motion at the wrists without pain. ?No tenderness to palpation or synovitis noted to the wrists. Elbows: Full range of motion without pain. No tenderness, weakness, swelling, increased warmth or erythema. Shoulders: Decreased range of motion secondary to pain/muscle spasm in her trapezius. No tenderness, weakness, swelling, increased warmth or erythema. Hip bursa: Bilateral Tenderness to palpation Knees: ?Full range of motion. ?No tenderness, swelling, increased warmth or erythema.? Bilateral crepitations Ankles: Full range of motion. ?No tenderness, swelling, increased warmth or erythema.? Feet: ?Negative squeeze test. ?No tenderness to palpation or swelling of the MTPs. Tender points:? Tenderness to palpation of the bilateral trapezius, supraspinatus, greater trochanters, anterior costochondral junctions, bilateral gluteal areas, bilateral suboccipital muscle insertions. Patient is exquisitely tender to palpation of all of the paraspinal muscles as well SKIN Skin intact without rashes. Office Procedures AMB Joint Injection/Aspiration Joint Injection/Aspiration Details: Procedure was explained to the patient and consent was obtained. ? The area of interest was identified and confirmed with patient. ?This was subsequently cleaned with chlorhexidine x3. ? The area was then anesthetized using ethyl chloride spray. 2 cc Euflexxa was injected without issue. ?Minimal to no bleeding. ?Patient tolerated procedure. Primary Site: right knee Prep: site was prepped using aseptic technique and ethochloride spray was applied Approach Used: anterior Procedure: The patient tolerated the procedure well Coding 02110 - Large joint Procedure code (CPT) selection complete AMB Joint Injection/Aspiration Joint Injection/Aspiration Details: Procedure was explained to the patient and consent was obtained. ? The area of interest was identified and confirmed with patient. ?This was subsequently cleaned with chlorhexidine x3. ? The area was then anesthetized using ethyl chloride spray. 2 cc Euflexxa was injected without issue. ?Minimal to no bleeding. ?Patient tolerated procedure. Primary Site: left knee Prep: site was prepped using aseptic technique and ethochloride spray was applied Approach Used: anterior Procedure: The patient tolerated the procedure well Coding 20065 - Large joint Procedure code (CPT) selection complete Office Meds Euflexxa 10 mg/mL (mw 2.4-3.6 million) intra-articular syringe Performing Provider: Brigid West MD Performing Location: [facility] Rheumatology Administered by: Brigid West MD on 10/30/24 11:16 Dose Route Admin Location Dispensed Lot Number Expiration Date ND Performance Improvement Specialist 20 mg intra-articular right knee 2 mL [id number] 08/23/25 [address]-0 [employer] Euflexxa 10 mg/mL (mw 2.4-3.6 million) intra-articular syringe Performing Provider: Brigid West MD Performing Location: [facility] Rheumatology Administered by: Brigid West MD on 10/30/24 11:16 Dose Route Admin Location Dispensed Lot Number Expiration Date NDC Performance Improvement Specialist 20 mg intra-articular left knee 2 mL [id number] 08/23/25 [address]-8 [employer] Results Reviewed Results Reviewed: XR Bilateral Knees 09/2024 FINDINGS (Right): There is mild loss of medial and patellofemoral compartment joint space. There is no visible acute fracture or dislocation. There is anterior superior patellar enthesophyte. No joint effusion seen FINDINGS (Left): On AP bilateral knee standing there is loss of medial and lateral compartment joint spaces in both knees. There is loss of lateral femoral compartment joint space with anterior superior an lateral patellar enthesophytes. No visible acute fracture, dislocation or subluxation seen. No loose bodies or soft tissue swelling. Assessment & Plan Assessment & Plan (1) Bilateral primary osteoarthritis of knee: Code(s): M17.0 - Bilateral primary osteoarthritis of knee Category: Medical Plan: #Bilateral Knee OA Patient is a 53-year-old female with bilateral knee OA. Previously failed topical diclofenac and physical therapy. Here today for her 2nd dose of Euflexxa injections Plan - s/p 2nd dose Euflexxa - RTC 1 week for 3rd dose (2) Fibromyalgia: Code(s): M79.7 - Fibromyalgia Category: Medical Plan: #Fibromyalgia Patient with fibromyalgia but continues to have widespread pain. Has tried Lyrica, gabapentin, Cymbalta, amitriptyline and her insurance did not approve Savella. Now has also failed baclofen. Discussed at length with patient about fibromyalgia and the chronicity of the disease. Plan - Stop baclofen - Tramadol 50mg tid prn - Daily stretches Plan I spent 20 minutes reviewing the record and labs, seeing the patient, discussing the treatment plan and documenting in the medical record ? Orders: Orders AMB Joint Injection/Aspiration Today M17.0 - Bilateral primary osteoarthritis of knee AMB Joint Injection/Aspiration Today M17.0 - Bilateral primary osteoarthritis of knee Medications: New Euflexxa (sodium hyaluronate (viscosup)) 20 mg (2 mL) intra-articular ONCE 2 mL 0RF NS M17.0 - Bilateral primary osteoarthritis of knee Euflexxa (sodium hyaluronate (viscosup)) 20 mg (2 mL) intra-articular ONCE 2 mL 0RF NS M17.0 - Bilateral primary osteoarthritis of knee Coding Level of Care Code Est Pt Level 3 (93279) Diagnoses Bilateral primary osteoarthritis of knee M17.0 Fibromyalgia M79.7 CPT Codes Coding - 98134 Large joint: 83182 - Large joint ([id number]) Coding - 81031 Large joint: 75196 - Large joint ([id number])
[2024-10-30 10:51] VITALS: BP 132/74; PULSE 92; RESP 16; O2SAT 98; BMI 36.0
--- OUTSIDE RECORDS SUMMARY | 2024-10-30 11:52 | XMS_ITS | Encounter Summary ---
Author Organization [facility] Address [address] [place] [address] [address], [place] [address] Care Team Providers Care Coffee Shop Manager Name Role Phone Mychal Fields MD Primary Care Provide r Hima Fam Unavailable Unavailable Reason for Visit * Reason Comments Med Change Request Encounter Details Date Type Department Care Team (Late st Contact Info) Description 10/19/2022 Refill [facility] [address] [place] [phone] Mychal Fields MD [address] [place] [address] [phone] Fibromyalgia Social History Tobacco Use Types Packs/Day [...] EDT Office Visit [facility] [address] [place] [address] [phone] Mychal Fields MD [address] [place] [address] [phone] documented as of this encounter Visit Diagnoses Diagnosis Fibromyalgia Unspecified myalgia and myositis documented in this encounter Additional Health Concerns Assessment Noted Time PHQ-9 Depression Total Score: 7 10/09/19 23 4:00 PM EST documented as of this encounter Care Teams Coffee Shop Manager Relationship Specialty Start Date End Date Mychal Fields MD [address] [place] [address] PCP - General Internal Medicine 04/30/14 Hima Fam FNP [address] [place] [address] Nurse Practitioner Family Medicine 08/01/23 documented as of this encounter
--- OUTSIDE RECORDS SUMMARY | 2024-10-30 11:52 | XMS_ITS | Encounter Summary ---
Author Organization [facility] Address [address] [place] [address] 7 [place] [address] Care Team Providers Care Paste Worker Name Role Phone Mychal Fields MD Primary Care Provide r Hima Fam Unavailable Unavailable Encounter Details Date Type Department Care Team (Late st Contact Info) Description 12/04/2022 Telephone [facility] [address] [place] [address] [phone] Mychal Fields MD [address] [place], [place] [phone] Social History Tobacco Use Types Packs/Day Years [...] Description 12/23/2024 1:00 PM EDT Office Visit [facility] [address] [place] [address] [phone] Mychal Fields MD [address] [place], [place] [phone] documented as of this encounter Visit Diagnoses Not on filedocumented in this encounter Additional Health Concerns Assessment Noted Time PHQ-9 Depression Total Score: 7 10/09/19 23 4:00 PM EST documented as of this encounter Care Teams Paste Worker Relationship Specialty Start Date End Date Mychal Fields MD [address] [place] [address] PCP - General Internal Medicine 04/30/14 Hima Fam FNP [address] [place] [address] Nurse Practitioner Family Medicine 08/01/23 documented as of this encounter
--- OUTSIDE RECORDS SUMMARY | 2024-10-30 11:52 | XMS_ITS | Encounter Summary ---
Author Organization [employer] [facility] Address [address] [place] [address] 7 [place] [address] Care Team Providers Care Registered Nurse Renal Name Role Phone Mychal Fields MD Primary Care Provide r Hima Fam Unavailable Unavailable Reason for Visit * Reason Onset Date Comments Appointment Request 12/04/2022 Encounter Details Date Type Department Care Team ([facility] Contact Info) Description 12/04/2022 Telephone [facility] [address] [place] [address] Mychal Fields MD [address] [place] [address] Appointment Request Social History Tobacco Use Types [...] ff/u Bp ) Please contact pt at [phone] * Telephone Encounter - Wesley Collins - 12/04/2022 2:02 PM EDT Tc from pt requesting to r/s appt on 10/19/22 ( ff/u Bp ) Please contact pt at [phone] documented in this encounter Plan of Treatment Upcoming Encounters Date Type Department Care Team (Late st Contact Info) Description 12/23/2024 1:00 PM EDT Office Visit [facility] [address] [facility] [place] [address] Mychal Fields MD [address] [place] [address] documented as of this encounter Visit Diagnoses Not on filedocumented in this encounter Additional Health Concerns Assessment Noted Time PHQ-9 Depression Total Score: 7 10/09/19 23 4:00 PM EST documented as of this encounter Care Teams Registered Nurse Renal Relationship Specialty Start Date End Date Mychal Fields MD Jose [address] [facility] [place] [address] PCP - General Internal Medicine 04/30/14 Hima Fam FNP [address] [place] [address] Nurse Practitioner Family Medicine 08/01/23 documented as of this encounter
--- OUTSIDE RECORDS SUMMARY | 2024-10-30 11:52 | XMS_ITS | Encounter Summary ---
Author Organization [employer] Address [address] [place] [address] [address] [address] Care Team Providers Care Plastic Fixture Builder Name Role Phone Mychal Fields MD Primary Care Provide r Hima Fam Unavailable Unavailable Encounter Details Date Type Department Care Team (Late st Contact Info) Description 04/24/2023 Orders Only [facility] [address] [place] [phone] Zena Harley MD [address] [place] [address] [phone] Acquired clavicle deformity (Primary Dx) Social History [...] 1:00 PM EDT Office Visit [facility] [address] [place] [address] [phone] Mychal Fields MD [address] [place] [address] [phone] Scheduled Orders Name Type Priority Associated Diagnoses [...] EDT Narrative 05/14/2023 4:45 PM EDT ? [facility] ?[address] ?[place] [address] ?XRay Report ? Signed ? Patient: Elaine Rodas ?MR#: [id number] ? : 1970 ?Acct:[id number] ? Age/Sex: 52 / F ?ADM Date: 05/14/23 ? Loc: HO.ED ? Attending Dr: ? Ordering Physician: Vee Castano NP ?? Date of Service: 05/14/23 ?? Procedure(s): XR chest 2V ?? Accession Number(s): [id number] ? cc: Mychal Long MD; Vee Castano [...] 05/14/231641 ? DD/ 23 ? TD/TT: ? Manager Financial Systems: SUJ ? Procedure Note Didiermateojacoboparrishmallory, Image - 05/14/[address] [address] XRay Report Signed Patient: Elaine RodasMR#: [id number] : 1970Acct:[id number] Age/Sex: 52 / FADM Date: 05/14/23 Loc: HO.ED Attending Dr: Ordering Physician: Vee Castano NP Date of Service: 05/14/23 Procedure(s): XR chest 2V Accession Number(s): [id number] cc: Mychal Long MD; Vee Castano NP [...] in OV> 05/14/23 1642 DD/ 1624 TD/TT: Manager Financial Systems: DORITA [facility] External Provider IMG XR PROCEDURES Edited Result - Final * XR Foot 3+ Views Right (05/10/2023 11:44 AM EDT) Anatomical Region Laterality Modality Lower Extremities, Foot Right Radiogra phic Imaging 05/10/2023 11:4 4 AM EDT Narrative 05/10/2023 12:08 PM EDT ?[facility] ?[address] ?[place] [address] ?XRay Report ? Signed ? Patient: Clark,Elaine ?MR#: [id number] ? : 1970 ?Acct:[id number] ? Age/Sex: 52 / F ?ADM Date: 08/31/23 ? Loc: HO.HHCX ? Attending Dr: Mychal Long MD ? Ordering Physician: Mychal Long MD ?? Date of Service: 05/10/23 ?? Procedure(s): XR foot RT min 3V ?? Accession Number(s): [id number] ? cc: Mychal Long MD ? EXAMINATION: [...] 1205 ? DD/ 1144 ? TD/TT: ? Manager Financial Systems: GR ? Procedure Note Yas Almodovar - 05/10/2023 [place] [address] XRay Report Signed Patient: Elaine RodasMR#: [id number] : 1970Acct:[id number] Age/Sex: 52 / FADM Date: 05/10/23 Loc: HO.HHCX Attending Dr: Mychal Long MD Ordering Physician: Mychal Long MD Date of Service: 05/10/23 Procedure(s): XR foot RT min 3V Accession Number(s): [id number] cc: Mychal Long MD EXAMINATION: XR FOOT, [...] in OV> 05/10/23 1205 DD/ 1144 TD/TT: Manager Financial Systems: YULISSA us Mychal Morris MD IMG XR PROCEDURES Fin al Result * FL Esophagus Barium Swallow w/Air (05/08/2023 10:19 AM EDT) Anatomical Region Laterality Modality Head, Neck Radiographic Hilda ging 05/08/2023 10:1 9 AM EDT Narrative 05/08/2023 4:35 PM EDT ? [facility] ?[address] ?[place] [address] ? Fluoroscopy Report ? Signed ? Patient: Elaine Rodas ?MR#: [id number] ? : 1970 ?Acct:[id number] ? Age/Sex: 52 / F ?ADM Date: 05/08/23 ? Loc: HO.XRAY ? Attending Dr: Mychal Long MD ? Ordering Physician: Mychal Long MD ?? Date of Service: 05/08/23 ?? Procedure(s): FL barium swallow with air ?? Accession Number(s): [id number] ? cc: Mychal Long MD ? EXAMINATION: [...] 1632 ? DD/ 1019 ? TD/TT: ? Manager Financial Systems: ? Procedure Note Nishi, Image - 05/08/[address] [address] Fluoroscopy Report Signed Patient: Elaine RodasMR#: [id number] : 1970Acct:[id number] Age/Sex: 52 / FADM Date: 05/08/23 Loc: [facility] Attending Dr: Mychal Long MD Ordering Physician: Mychal Long MD Date of Service: 05/08/23 Procedure(s): FL barium swallow with air Accession Number(s): [id number] cc: Mychal Long MD EXAMINATION: XR FLUOROSCOPY [...] in OV> 05/08/23 1632 DD/ 1019 TD/TT: Manager Financial Systems: Mychal Morris MD IMG FLUOROSCOPY UBALDO HERNANDES Final Result documented in this encounter Visit Diagnoses Diagnosis 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
--- OUTSIDE RECORDS SUMMARY | 2024-10-30 11:52 | XMS_ITS | Encounter Summary ---
Author Organization [employer] Address [address] [place] [address] 7 [place] [address] Care Team Providers Care Conservation Biology Professor Name Role Phone Mychal Fields [...] (Late st Contact Info) Description 09/18/[address] [facility] [address] [place], [place] [phone] Mychal Fields MD [address] [place], [place] [phone] Medication Question; Appointment (T/C placed to pt [...] know medication name . Please contact at [phone] documented in this encounter Plan of Treatment Upcoming Encounters Date Type Department Care Team (Late st Contact Info) Description 12/23/2024 1:00 PM EDT Office Visit [facility] [address] [place], [place] [phone] Mychal Fields MD [address] [place] [address] documented as of this encounter Visit Diagnoses Not on filedocumented in this encounter Care Teams Conservation Biology Professor Relationship Specialty Start Date End Date Mychal Fields MD [address] [place] [address] PCP - General Internal Medicine 04/30/14 Hima Fam FNP [address] [facility] [address] Nurse Practitioner Family Medicine 08/01/23 documented as of this encounter
--- OUTSIDE RECORDS SUMMARY | 2024-10-30 11:52 | XMS_ITS | Encounter Summary ---
Author Organization [facility] Address [address] [place] [address] 7 [place] [address] Care Team Providers Care Char Conveyor Tender Cellar Name Role Phone Mychal Fields MD Primary Care Provide r Hima Fam Unavailable Unavailable Reason for Visit * Reason Comments Med Refill Encounter Details Date Type Department Care Team (Late Contact Info) Description 10/05/2022 Refill [facility] [address] [place] [address] Hima Fam FNP Anxiety state Social History [...] Visit [facility] [address] [place] [address] Mychal Fields MD [address] [place] [address] documented as of this encounter Visit Diagnoses Diagnosis Anxiety state Anxiety state, unspecified documented in this encounter Care Teams Char Conveyor Tender Cellar Relationship Specialty Start Date End Date [place]chal [place] [address] PCP - General Internal Medicine 04/30/14 Hima Fam FNP [address] [place] [address] [place] [address] Nurse Practitioner Family Medicine 08/01/23 documented as of this encounter
--- OUTSIDE RECORDS SUMMARY | 2024-10-30 11:52 | XMS_ITS | Encounter Summary ---
Author Organization [employer] Address [address] [place] [address] 7t [place] [address] Care Team Providers Care Skid Road Man Name Role Phone Mychal Fields MD Primary Care Provide r Hima Fam Unavailable Unavailable Encounter Details Date Type Department Care Team (Late st Contact Info) Description 12/05/2022 Orders Only [facility] [address] [place], [place] [phone] Veda Isabel LPN Social History Tobacco Use [...] 12/23/2024 1:00 PM EDT Office Visit [facility] [address] [place], [place] [phone] Mychal Fields MD [address] [place], [place] [phone] documented as of this encounter Visit Diagnoses Not on filedocumented in this encounter Additional Health Concerns Assessment Noted Time PHQ-9 Depression Total Score: 7 10/09/19 23 4:00 PM EST documented as of this encounter Care Teams Skid Road Man Relationship Specialty Start Date End Date Mychal Fields MD [address] [place] [address] PCP - General Internal Medicine 04/30/14 Hima Fam FNP [address] [place] [address] Nurse Practitioner Family Medicine 08/01/23 documented as of this encounter
--- OUTSIDE RECORDS SUMMARY | 2024-10-30 11:53 | XMS_ITS | Clinical Summary ---
Author Organization [employer] Address [address] [place] [address] 7 [place] [address] Care Team Providers Care Bill Checker Name Role Phone Mychal Fields MD Primary [...] 2 (two) hours if needed. 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 Wynn at our [facility] who recommended to check D dimer given [...] We are trying to get her to 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 They recommended repeat brain MRI [...] no good results, cannot tolerate NSAIDS [facility] neurolog[facility] is not accepting new patients at the moment. Will try to refer to a different Neurologist perhaps at [facility] Assessment & Plan (01/17/2024 1:06 PM EDT): [...] also be referring to Neurology at [facility] Assessment & Plan (04/03/2023 1:22 PM EDT): [...] recently retired Pt has a therapist at [facility] I recommended she speak with therapist about [...] necessary. For any issues or concerns, contact [facility]. All her questions were answered and I [...] used to be under the care of supplier specialist who had been prescribing Baclofen Assessment [...] used to be under the care of supplier specialist who had been prescribing tramadol 100mg [...] without neural impingement. Pt was seen at [facility] 04/2023 and has a follow up [...] without neural impingement. Pt was seen at [facility] recently has a follow up recommended [...] neural impingement. Pt will be referred to [facility] Smoker 02/21/2012 Assessment & Plan (04/03/2023 [...] Department Care Team Description 10/27/2024 Orders Only [facility] External Provider, [facility] 10/11/2024 Refill [facility] [address] [place] [address] Mychal Fields MD 10/11/2024 Refill [facility] [address] [facility] [place] [address] Bette Wynn MD Low vitamin D level 10/06/2024 1:15 PM EST Office Visit [facility] [address] [place] [address] Nabeel Magnaa MD Pre-op evaluation (Primary Dx) 10/06/[address] [facility] [address] [place] [address] Mychal Fields MD Anxiety and depression 10/06/2024 Travel 10/03/2024 Telephone [facility] [place] [address] Mychal Fields MD December09/22/2024 Orders Only GENERIC EXTERNAL DATA DEPARTMENT Provider, Generic External Data 09/18/2024 Telephone [facility] [place] [address] Mychal Fields MD PRE OP 09/16/2024 10:00 AM EST Office Visit [facility] [place] [address] Mychal Fields MD JERRI (obstructive sleep apnea) (Primary Dx); Abnormal CT of the chest; Essential hypertension; Microscopic hematuria; Fibromyalgia; Subacute cough; Restrictive lung disease; Enlarged lymph nodes; Preventative health care 09/16/2024 Telephone [facility] [place] [address] Mychal Fields MD Appointment Request 09/16/2024 Orders Only GENERIC EXTERNAL DATA DEPARTMENT Provider, Generic External Data 09/16/2024 Telephone [facility] Jose [facility] [place] [address] Mychal Fields MD Appointment Request 09/16/2024 Travel 09/11/[address] [facility] [address] [place] [address] Claudette Nassar MD Anxiety and depression 09/04/2024 Telephone [facility] [address] [place] [address] Mychal Fields MD Chart Prep 08/25/2024 Telephone [facility] [address] [place] [address] Toño Lim [place] Lab order D-Dimer STAT 08/15/2024 Telephone [facility] [address] [place] [address] Margarita Reagan RN Lab Orders (STAT D-Dimer) 08/12/2024 Refill [facility] [address] [place] [address] Mychal Fields MD Anxiety and depression 08/11/2024 Refill [facility] [address] [place] [address] Cinthya Dover ANP Essential hypertension 08/05/2024 5:20 PM EST Office Visit [facility] [address] [place], [place] [phone] Bette Wynn MD Cough in adult patient (Primary Dx) 08/05/2024 Orders Only GENERIC EXTERNAL DATA DEPARTMENT Provider, Generic External Data 08/05/2024 Travel 08/05/2024 Telephone [facility] [address] [place], [place] [phone] Mychal Fields MD Nurse Triage from Last [...] Description 12/23/2024 1:00 PM EDT Office Visit [facility] [address] [place] [address] Mychal Fields MD [address] [place], [place] [phone] Health Maintenance Due Date Last Done Comments [...] EST Narrative 10/27/2024 3:15 AM EST ? [facility] ?[address] ?[place] [address] ? [place] Scan Report ? Signed ? Patient: Elaine Rodas ?MR#: [id number] ? : 1970 ?Acct:[id number] ? Age/Sex: 53 / F ?ADM Date: 10/27/24 ? Loc: HO.ED ? Attending Dr: ? Ordering Physician: Jaime Parker MD ?? Date of Service: 10/27/24 ?? Procedure(s): CT abdomen pelvis wo IV con ?? Accession Number(s): [id number] ? cc: [facility]; Jaime Parker MD ? Report Number: ?? [id number]: Total DLP = ??740.00 mGy-cm ? CLINICAL [...] bones are intact. ? IMPRESSION: ?? 1. Zowp-vz-yljdvrtr edema identified within the small bowel mesentery, [...] 10/27/24313 ? DD/ ? TD/TT: 10/27/24312 ? Table Maker: ? Procedure Note Donotuseinterpreter, Image - 10/27/[address] [address] [address] Scan Report Signed Patient: Elaine RodasMR#: [id number] : 1970Acct:[id number] Age/Sex: 53 / FADM Date: 10/27/24 Loc: HO.ED Attending Dr: Ordering Physician: Jaime Parker MD Date of Service: 10/27/24 Procedure(s): CT abdomen pelvis wo IV con Accession Number(s): [id number] cc: [facility]; Jaime Parker MD Report Number: [id number]: Total DLP = 740.00 mGy-cm CLINICAL HISTORY: [...] appendix. The bones are intact. IMPRESSION: 1. Ocnd-xw-dcggxkac edema identified within the small bowel mesentery, [...] in OV> 10/27/24313 DD/ 2 TD/TT: 10/27/24312 Table Maker: us [facility] External Provider IMG CT PROCEDURES Final Result * XR Knee 4+ Views Right (09/22/2024 12:50 PM EST) Anatomical Region Laterality Modality Lower Extremities, Knee Right Radiogra phic Imaging 09/22/2024 12:5 0 PM EST Narrative 09/24/2024 9:59 AM EST ? [facility] ?[address] ?[place] [address] ?XRay Report ? Signed ? Patient: Elaine Rodas ?MR#: [id number] ? : 1970 ?Acct:[id number] ? Age/Sex: 53 / F ?ADM Date: 09/22/24 ? Loc: HO.XRAY ? Attending Dr: Syed Coreas MD ? Ordering Physician: Brigid West MD ?? Date of Service: 09/22/24 ?? Procedure(s): XR knee RT 4V ?? Accession Number(s): [id number] ? cc: Brigid West MD; Mychal Long [...] Signed By: ?<Electronically signed by Chidi S Lcair, MD in OV> ?09/24/24 0956 ? DD/DT: 09/22/ 1250 ? TD/TT: 09/22/24 1312 ? Table Maker: MSM ? Procedure Note Donotuseinterpreter, Image - 09/24/[address] [address] XRay Report Signed Patient: Elaine RodasMR#: [id number] : 1970Acct:[id number] Age/Sex: 53 / FADM Date: 09/22/24 Loc: HO.XRAY Attending Dr: Syed Coreas MD Ordering Physician: Brigid West MD Date of Service: 09/22/24 Procedure(s): XR knee RT 4V Accession Number(s): [id number] cc: Brigid West MD; Mychal Long MD [...] 09/24/24 0956 DD/ 1250 TD/TT: 09/22/24 1312 Table Maker: GARY us [facility] External Provider IMG XR PROCEDURES Final Result * XR Knee 4+ Views Left (09/22/2024 12:50 PM EST) Anatomical Region Laterality Modality Lower Extremities, Knee Left Radiogra phic Imaging 09/22/2024 12:5 0 PM EST Narrative 09/24/2024 10:01 AM EST ? [facility] ?[address] ?[place] [address] ?XRay Report ? Signed ? Patient: Clark,Elaine ?MR#: [id number] ? : 1970 ?Acct:[id number] ? Age/Sex: 53 / F ?ADM Date: 09/22/24 ? Loc: HO.XRAY ? Attending Dr: Syed Coreas MD ? Ordering Physician: Brigid West MD ?? Date of Service: 09/22/24 ?? Procedure(s): XR knee LT 4V ?? Accession Number(s): [id number] ? cc: Brigid West MD; Mychal Long [...] DD/ 1250 ? TD/TT: 09/22/24 1312 ? Table Maker: MSM ? Procedure Note Yas Almodovar - 09/24/[address] [address] XRay Report Signed Patient: Elaine RodasMR#: [id number] : 1970Acct:[id number] Age/Sex: 53 / FADM Date: 09/22/24 Loc: CHAPARRITA Attending Dr: Syed Coreas MD Ordering Physician: Brigid West MD Date of Service: 09/22/24 Procedure(s): XR knee LT 4V Accession Number(s): [id number] cc: Brigid West MD; Mychal Long MD [...] 09/24/24 0959 DD/ 1250 TD/TT: 09/22/24 1312 Table Maker: G[facility] External Provider IMG XR PROCEDURES Final Result * XR Chest 2 Views (09/22/2024 12:50 PM EST) Anatomical Region Laterality Modality Chest Radiographic Hilda ging 09/22/2024 12:5 0 PM EST Narrative 09/24/2024 10:02 AM EST ? [facility] ?[address] ?[place] [address] ?XRay Report ? Signed ? Patient: Clark,Elaine ?MR#: [id number] ? : 1970 ?Acct:[id number] ? Age/Sex: 53 / F ?ADM Date: /13/25 ? Loc: HO.XRAY ? Attending Dr: Syed Coreas MD ? Ordering Physician: Mychal Long MD ?? Date of Service: 09/22/24 ?? Procedure(s): XR chest 2V ?? Accession Number(s): [id number] ? cc: Mychal Long MD ? EXAMINATION: [...] DD/ 1250 ? TD/TT: 09/22/24 1312 ? Table Maker: MSM ? Procedure Note Ollieclaude, Image - 09/24/2024 [place] [address] XRay Report Signed Patient: Elaine RodasMR#: [id number] : 1970Acct:[id number] Age/Sex: 53 / FADM Date: 09/22/24 Loc: CHAPARRITA Attending Dr: Syed Coreas MD Ordering Physician: Mychal Long MD Date of Service: 09/22/24 Procedure(s): XR chest 2V Accession Number(s): [id number] cc: Mychal Long MD EXAMINATION: XR CHEST [...] 09/24/24 0959 DD/ 1250 TD/TT: 09/22/24 1312 Table Maker: [facility] us Mychal Morris MD IMG XR PROCEDURES Fin al Result * Syphilis Screen (09/22/2024 12:35 PM EST) Syphilis Screen Nonreactive Nonreactive [facility] 09/22/2024 12:3 5 PM EST 09/22/2024 12:35 PM EST us Generic External Data Provider LAB BLOOD ORDERAB LES Final Result Performing Organization Address [facility] Co de Phone Number [facility] [address] [place] [phone] * Hepatitis C Ab (09/22/2024 12:35 PM EST) Hepatitis C Antibody Nonreactive Nonreactive [facility] Comment:Antibodies to HCV no t detected; does not exclude early acuteHCV infection. 09/22/2024 12:3 5 PM EST 09/22/2024 12:35 PM EST Generic External Data Provider LAB BLOOD ORDERAB LES Final Result Performing Organization Address City/[facility] Co de Phone Number [facility] [address] [place] [phone] * Creatinine, Serum (09/22/2024 12:35 PM EST) Only the most recent of2 resultswithin the time period is included. Creatinine, Serum 0.89 0.5 - 1.4 mg/dL [facility] Estimated Glomerular Filt Rate >60 [facility] Comment:Chronic Kidney Disea se: Estimated GFR < 60 mL/min/1.91l5Acvspl Kidney Disease: Estimated GFR < 15 mL/min/1.73m2 09/22/2024 12:3 5 PM EST 09/22/2024 12:35 PM EST Generic External Data Provider LAB BLOOD ORDERAB LES Final Result Performing Organization Address [facility]/ZIP Co de Phone Number [facility] [address] [place] [phone] * Hepatitis B surface antigen, EIA (09/22/2024 12:35 PM EST) Hepatitis B Surface Ag Negative Negative [facility] 09/22/2024 12:3 5 PM EST 09/22/2024 12:35 PM EST Generic External Data Provider LAB BLOOD ORDERAB LES Final Result Performing Organization Address [facility] Co de Phone Number [facility] [address] [place] [phone] * HIV-1/2 Antigen and Antibodies, Fourth Generation, with Reflexes (09/22/2024 12:35 PM EST) Pathologist [facility] HIV AB/AG Nonreactive Nonreactive [facility] Comment:HIV-1 p24 Ag and/or HIV-1/HIV-2 Ab not detected.A test result that is nonreactive does not exclude thepossibility of exposure to or infection with HIV-1 and/orHIV-2. Nonreactive results in this assay for individualswith prior exposure to HIV-1 and/or HIV-2 may be due toantigen and antibody levels that are below the limit ofdetection of this assay.The [employer] [employer] HIV Ag/Ab Combo assay result andsupplemental assay results should be interpreted inconjunction with the patient's clinical presentation,history and other laboratory results. If the results areinconsistent with clinical evidence, additional testing issuggested to confirm the result. 09/22/2024 12:3 5 PM EST 09/22/2024 12:35 PM EST us Generic External Data Provider LAB BLOOD ORDERAB LES Final Result Performing Organization Address [facility]/ZIP Co de Phone Number [facility] [address] [place] [phone] * BUN (Blood Urea Nitrogen) (09/22/2024 12:35 PM EST) Only the most recent of2 resultswithin the time period is included. [facility] Urea Nitrogen (BUN) 13 9 - 16 mg/dL [facility] 09/22/2024 12:3 5 PM EST 09/22/2024 12:35 PM EST Generic External Data Provider LAB BLOOD ORDERAB LES Final Result Performing Organization Address [facility] Number [facility] [address] [place] [phone] * D Dimer High Sensitivity (09/16/2024 11:09 AM EST) [facility] D Dimer High Sensitivity 203 NG/ML [facility] Comment:D-DIMER HS REFERENCE RANGENote: Our [...] BLOOD ORDERABLES Final Result Performing Organization Address [facility] Co de Phone Number [facility] [address] [place] [phone] * High Sensitivity Troponin I (08/05/2024 6:21 PM EST) [facility] TROPONIN I HIGH SENSITIVITY <2.7 <3.5 - 17.0 ng/L [facility] Comment:The Hernandez high sens itivity Troponin-I results should beused in conjunction with other diagnostic information suchas ECG, clinical observations and information, and patientsymptoms to aid in the diagnosis of MS. 08/05/2024 6:21 PM EST 08/05/2024 6:24 PM EST us Generic External Data Provider LAB BLOOD ORDERAB LES Final Result [facility] [address] [place] [phone] * (ABNORMAL) CBC auto differential (08/05/2024 6:21 PM EST) White Blood Count 8.2 4.8 - 10.8 X10*3/uL [facility] Red Blood Count 4.26 4.20 - 5.50 X10*6/uL [facility] Hemoglobin 12.5 12.0 - 16.0 g/dl [facility] Hematocrit 37.0 37.0 - 47.0 % [facility] Mean Corpuscular Volume 86.9 80.0 - 98.0 fL [facility] Mean Corpuscular Hemoglobin 29.3 27.0 - 33.0 pg [facility] Mean Corpuscular HGB Conc 33.8 31.0 - 35.0 g/dl [facility] Red Cell Distribution Width 12.9 11.0 - 16.0 % [facility] Platelet Count 269 160 - 400 X10*3/uL [facility] Mean Platelet Volume 9.6 9.4 - 12.3 fL [facility] Neutrophils Percent Auto 47.3 45 - 73 % [facility] Imm Gran Pct Auto 0.2 0.0 - 0.4 % [facility] Lymphocytes Percent Auto 45.0(H) 20 - 40 % [facility] Monocytes Percent Auto 4.5 2 - 11 % [facility] Eosinophils Percent Auto 2.3 0 - 4 % [facility] Basophils Percent Auto 0.7 0 - 2 % [facility] NRBC Pct Auto 0.0 0.0 - 0.2 /100WBC [facility] Neutrophils Absolute Auto 3.9 2.0 - 8.3 x10*3/uL [facility] Imm Gran Abs Auto 0.02 0.00 - 0.03 X10*3/uL [facility] Lymphocytes Absolute Auto 3.7 1.2 - 4.9 X10*3/uL [facility] Monocytes Absolute Auto 0.4 0.1 - 1.2 X10*3/uL [facility] Eosinophils Absolute Auto 0.2 0.0 - 0.4 X10*3/uL [facility] Basophils Absolute Auto 0.1 0.0 - 0.2 X10*3/uL [facility] NRBC Abs Auto 0.000 0.0 - 0.012 X10*3/uL [facility] 08/05/2024 6:21 PM EST 08/05/2024 6:24 PM EST us Generic External Data Provider LAB BLOOD ORDERAB LES Final Result Performing Organization Address City/State/[facility] Co de Phone Number [facility] [address] [place] [phone] * Prothrombin Time-INR (08/05/2024 6:21 PM EST) Prothrombin Time 10.9 10.9 - 12.4 SEC [facility] INTERNATIONAL NORM RATIO 0.9 0.9 - 1.1 [facility] Comment:INTERNATIONAL NORMAL IZED RATIO (INR) [...] Provider LAB BLOOD ORDERAB LES Final Result [facility] [address] [place] [phone] [phone] * (ABNORMAL) Comprehensive Metabolic Panel (08/05/2024 6:21 PM EST) Sodium 139 135 - 145 mmol/L [facility] Potassium 3.9 3.3 - 5.1 mmol/L [facility] Chloride 105 96 - 108 mmol/L [facility] Carbon Dioxide 29 22 - 29 mmol/L [facility] Anion Gap 9(L) 12 - 20 [facility] Urea Nitrogen (BUN) 11 9 - 16 mg/dL [facility] Creatinine, Serum 0.86 0.5 - 1.4 mg/dL [facility] Creatinine Clr Calc Pharmacy 88.6 [facility] Comment:Provided height and weight: 167.64 cm,96.5 kg.eGFR (calculated from the MDRD study equation) and eCrCl(calculated from the Cockcroft-Gault equation) are based ondifferent parameters and may not yield comparable results.If eCrCl result is absurd, please check patient'sheight/weight. Estimated Glomerular Filt Rate >60 [facility] Comment:Chronic Kidney Disea se: Estimated GFR < 60 mL/min/1.95p4Xmrifm Kidney Disease: Estimated GFR < 15 mL/min/1.73m2 Glucose 98 60 - 115 mg/dL [facility] Calcium 9.3 8.4 - 10.2 mg/dL [facility] Bilirubin, Total 0.2 0.0 - 1.0 mg/dL [facility] Aspartate Amino Transferase 17 5 - 31 U/L [facility] Alanine Aminotransferase 14 0 - 31 U/L [facility] Total Protein 7.6 6.5 - 8.0 g/dL [facility] Albumin Level 3.9 3.5 - 5.0 g/dL [facility] Alkaline Phosphatase 114 39 - 117 U/L [facility] 08/05/2024 6:21 PM EST 08/05/2024 6:24 PM EST Generic External Data Provider LAB BLOOD ORDERAB LES Final Result Performing Organization Address [facility]/ZIP Co de Phone Number [facility] [address] [place] [phone] * POCT Rapid COVID-19 Binax NOW (08/05/2024 5:31 PM EST) Rapid COVID Ag Negative QC Media Lot # [id number] Lot# Expiration Date Swab 08/05/2024 5:31 PM EST Bette Wynn MD POINT OF CARE TEST ENTER/E DIT ORDERABLES Final Result * POCT Rapid Influenza B HERNANDEZ ID NOW (08/05/2024 5:30 PM EST) Pathologist [facility] Influenza B Negative Negative, Indeterminate [facility] QC Media Lot # [id number] [facility] Lot# Expiration Date [facility] Swab 08/05/2024 5:30 PM EST Bette Wynn MD POINT OF CARE TEST ENTER/E DIT ORDERABLES Final Result Performing Organization Address City/[facility]/ZIP Co de Phone Number [facility] [address] [place] [phone] * POCT Rapid Influenza A HERNANDEZ ID NOW (08/05/2024 5:30 PM EST) Pathologist [facility] Influenza A Negative Negative, Indeterminate [facility] QC Media Lot # [id number] [facility] Lot# Expiration Date [facility] Swab 08/05/2024 5:30 PM EST Bette Wynn MD POINT OF CARE TEST ENTER/E DIT ORDERABLES Final Result [facility] [address] [place] [address] [phone] * BI Mammogram Screening Tomosynthesis Bilateral (09/24/2023 4:24 PM EST) Anatomical Region Laterality Modality Breast Bilateral Mammography 09/24/2023 4:24 PM EST Narrative 10/12/2023 4:26 PM EST ? [facility] ?[address] ?[place] [address] ? Mammography Report ? Signed ? Patient: Elaine Rodas ?MR#: [id number] ? : 1970 ?Acct:[id number] ? Age/Sex: 52 / F ?ADM Date: 09/24/23 ? Loc: HO.US ? Attending Dr: Cecily Schwab CNM ? Ordering Physician: CECILY SCHWAB CNM ?Results: 1 ?? Negative ? Date of Service: 09/24/23 ?Follow Up: 1 Year From Orig ?? inal Mammogram ? Procedure(s): MM tomosynthesis screening BI ?? Accession Number(s): [id number] ? cc: Mychal Long MD; CECILY SCHWAB [...] 10/12/23 1622 ? DD/ ? TD/TT: ? Table Maker: ? Procedure Note Yas Almodovar - 10/12/[address] [address] Mammography Report Signed Patient: Elaine RodasMR#: [id number] : 1970Acct:[id number] Age/Sex: 52 / FADM Date: 09/24/23 Loc: HO. Attending Dr: Cecily Schwab CNM Ordering Physician: CECILY SCHWABesults: 1 Negative Date of Service: 09/24/23Follow Up: 1 Year From Orig inal Mammogram Procedure(s): MM tomosynthesis screening BI Accession Number(s): [id number] cc: Mychal Long MD; CECILY SCHWAB CNM [...] in OV> 10/12/23 1622 DD/ 1624 TD/TT: Table Maker: Cecily Schwab CNM IMG BI PROCEDURES Final R esult * HPV mRNA E6/E7 w/Reflex to HPV Genotypes 16, 18/45 (08/23/2023 2:22 PM EST) HPV nRNA E6/E7 Not Detected Not Detected [facility] Comment:Methodology: Transcr iption-Mediated AmplificationThis assay detects E6/E7 viral messenger RNA (mRNA) from 14high-risk HPV types (16,18,31,33,35,39,45,51,52,56,58,59,66,68).Cervical sources are required for HPV testing.If a vaginal source from a patient who has had atotal hysterectomy with removal of cervix wassubmitted, please contact the testing laboratoryfor alternative testing options.For additional information, please refer tohttp://education.[employer]faq/UCX191d1(This link if provided for information/educational purposes only.)THIS TEST WAS PERFORMED AT:[facility] [place] [id number] PRESSLEY MD HPV mRNA E6/E7 TNP [facility] HPV 16 RNA TNP [facility] HPV 18/45 RNA TNP [facility] 08/23/2023 2:22 PM EST 08/24/2023 9:35 AM EST us Cecily Schwab [facility] CYTOLOGY ORDERABLES F inal Result [facility] [address] [place] [address] [phone] * Pap Smear (08/23/2023 2:22 PM EST) Swab Cervix uteri structure / Unknown 08/23/2023 2:22 PM EST 08/24/2023 9:35 AM EST Narrative [facility] - 09/04/2023 1:23 PM EST ----- ------- Name: Elaine Rodas ?Age/Sex: 52/F ? : 1970 Unit#: [id number] ?? Attend Dr: ?Re08/23/23 ?Status: PRE REF ? Location: HO.LNP ?Disch: ? ----- ------- SPEC : [id number] ?RECD: 08/24/2398 ? STATUS: ??SOUT ? REQ NUM: [id number] ? CHAPIN: 08/23/23-4111 ? SUBM DR: CECILY SCHWAB CNM ? [...] ?? HPV testing performed by [facility], [place], [place]. ??See reference laboratory ?? portion of the EMR for entire report. ?Clinical Information LMP: Postmenopausal Previous PAP test: Unknown date/findings Other history: Abnormal bleeding ? Material Received ?? ThinPrep-Cervical ----- ------- Signed (signature on file) NATHAN Medrano (ASCP) 09/04/23 1323 ? ----- ------- ? END OF REPORT ? Cecily Schwab [facility] CYTOLOGY ORDERABLES F inal Result [facility] [address] [place] [phone] * Colonoscopy (08/30/2022) Pathologist [facility] Colonoscopy Normal Normal Historical Provider HEALTH MAINTENANCE Final Result * (ABNORMAL) LIPID PANEL, STANDARD (06/17/2020 3:00 PM EDT) HDL Cholesterol 53 > OR = 50 mg/dL [facility] Triglycerides 87 <150 mg/dL [facility]ATION [...] ?? Mina MARRERO et al. ASHUTOSH. 2013;310(19): 9350-5598 ?? (http://education.[employer]faq/NKU668) Chol/HDLC Ratio 3.4 <5.0 (calc) [facility] 06/17/2020 3:00 PM EDT us Mychal Morris MD LAB BLOOD ORDERABLES Final Result [facility] [address] from Last 3 Months or Most Recently Relevant to Health Maintenance Insurance [employer] Care Teams Bill Checker Relationship Specialty Start Date End Date Mychal Fields MD [address] [place] [address] PCP - General Internal Medicine 04/30/14 Hima Fam FNP [address] [place] [address] Nurse Practitioner Family Medicine 08/01/23
--- OUTSIDE RECORDS SUMMARY | 2024-10-30 11:53 | XMS_ITS | Encounter Summary ---
Author Organization [employer] Address [address] [facility] 7t [place] [address] Care Team Providers Care Cafe Attendant Name Role Phone Mychal Fields MD Primary Care Provide r Hima Fam Unavailable Unavailable Encounter Details Date Type Department Care Team (Late st Contact Info) Description 10/27/2024 Orders Only [facility] External Provider, [facility] Social History Tobacco Use Types Packs/Day [...] Upcoming Encounters Date Type Department Care Team ([facility] st Contact Info) Description 12/23/2024 1:00 PM EDT Office Visit [facility] MEDICINE [address] [place] [address] Mychal Fields MD [address] [place] [address] documented as of this encounter Procedures Procedure Name Priority Date/Time Associated Diagnosis Comments CT ABDOMEN PELVIS WO CONTRAST Routine 10/27/2024 3:13 AM EST documented in this encounter Results * CT Abdomen Pelvis w/o Contrast (10/27/2024 3:13 AM EST) Anatomical Region Laterality Modality Body, Pelvis, Abdomen Computed T omography 10/27/2024 3:13 AM EST Narrative 10/27/2024 3:15 AM EST ? [facility] ?[address] ?[place] [address] ? CT Scan Report ? Signed ? Patient: Clark,Elaine ?MR#: [id number] ? : 1970 ?Acct:[id number] ? Age/Sex: 53 / F ?ADM Date: 02/17/25 ? Loc: HO.ED ? Attending Dr: ? Ordering Physician: Jaime Parker MD ?? Date of Service: 10/27/24 ?? Procedure(s): CT abdomen pelvis wo IV con ?? Accession Number(s): [id number] ? cc: [facility]; Jaime Parker MD ? Report Number: ?? [id number]: Total DLP = ??740.00 mGy-cm ? CLINICAL [...] bones are intact. ? IMPRESSION: ?? 1. Lfiu-ng-zsaplibf edema identified within the small bowel mesentery, [...] ? DD/ 2 ? TD/TT: 10/27/24312 ? Pulling Unit Operator: ? Procedure Note Yas Almodovar - 10/27/[address] [place] [address] [address] Scan Report Signed Patient: Elaine RodasMR#: [id number] : 1970Acct:[id number] Age/Sex: 53 / FADM Date: 10/27/24 Loc: HO.ED Attending Dr: Ordering Physician: Jaime Parker MD Date of Service: 10/27/24 Procedure(s): CT abdomen pelvis wo IV con Accession Number(s): [id number] cc: [facility]; Jaime Parker MD Report Number: [id number]: Total DLP = 740.00 mGy-cm CLINICAL HISTORY: [...] appendix. The bones are intact. IMPRESSION: 1. Ccpe-kz-izhttfuw edema identified within the small bowel mesentery, [...] in OV> 10/27/244 DD/ 2 TD/TT: 10/27/24312 Pulling Unit Operator: [facility] External Provider IMG CT PROCEDURES Final Result documented in this encounter Visit Diagnoses Not on filedocumented in this encounter Additional Health Concerns Assessment Noted Time PHQ-9 Depression Total Score: 6 09/16/19 25 10:06 AM EST documented as of this encounter Care Teams Cafe Attendant Relationship Specialty Start Date End Date Mychal Fields MD [address] [place] [address] PCP - General Internal Medicine 04/30/14 Hima Fam FNP [address] [place] [address] Nurse Practitioner Family Medicine 08/01/23 documented as of this encounter
--- OUTSIDE RECORDS SUMMARY | 2024-10-30 11:53 | XMS_ITS | Encounter Summary ---
Author Organization [employer] Address [address] [place] [address] 7 [place] [address] Care Team Providers Care Accessibility Lift Technician Name Role Phone Mychal Fields MD Primary Care Provide r Hima Fam Unavailable Unavailable Reason for Visit * Reason Onset Date Comments Nurse Triage 08/05/2024 Encounter Details Date Type Department Care Team ([facility] st Contact Info) Description 08/05/2024 Telephone [facility] MEDICINE [address] [place] [address] Mychal Fields MD [address] [place] [address] Nurse Triage Social History Tobacco Use Types [...] for cough.Pt is offered to come to [facility] to be seen by provider, advised [...] Pt didn't answer. Left message to call [facility] [phone]. Advised will call back in about 15 [...] symptoms except for fever. Contact pt at [phone] (telugu) documented in this encounter Plan of Treatment Upcoming Encounters Date Type Department Care Team (Late st Contact Info) Description 12/23/2024 1:00 PM EDT Office Visit [facility] MEDICINE [address] [place] [address] Mychal Fields MD [address] [place] [address] documented as of this encounter Visit Diagnoses Not on filedocumented in this encounter Additional Health Concerns Assessment Noted Time PHQ-9 Depression Total Score: 9 01/28/20 24 2:36 PM EDT documented as of this encounter Care Teams Accessibility Lift Technician Relationship Specialty Start Date End Date Mychal Fields MD [address] [place] [address] PCP - General Internal Medicine 04/30/14 Hima Fam FNP [address] [place] [address] Nurse Practitioner Family Medicine 08/01/23 documented as of this encounter
--- OUTSIDE RECORDS SUMMARY | 2024-10-30 11:53 | XMS_ITS | Encounter Summary ---
Author Organization [employer] Address [address] [place] [address] 7t [place] [address] Care Team Providers Care Consulting Manager Name Role Phone Mychal Fields MD Primary Care Provide r Hima Fam Unavailable Unavailable Reason for Visit * Reason Comments Med Refill Encounter Details Date Type Department Care Team (Late st Contact Info) Description 10/11/2024 Refill [facility] MEDICINE [address] [place] [address] Bette Wynn MD [address] [place] [address] Low vitamin D level Social History Tobacco [...] 1:00 PM EDT Office Visit [facility] MEDICINE [address] [place] [address] Mychal Fields MD [address] [place] [address] documented as of this encounter Visit Diagnoses Diagnosis Low vitamin D level documented in this encounter Additional Health Concerns Assessment Noted Time PHQ-9 Depression Total Score: 6 09/16/19 25 10:06 AM EST documented as of this encounter Care Teams Consulting Manager Relationship Specialty Start Date End Date Mychal Fields MD [address] [place] [address] PCP - General Internal Medicine 04/30/14 Hima Fam FNP [address] [place] [address] Nurse Practitioner Family Medicine 08/01/23 documented as of this encounter
--- OUTSIDE RECORDS SUMMARY | 2024-10-30 11:53 | XMS_ITS | Encounter Summary ---
Author Organization [employer] Address [address] [place] [address] 7t [place] [address] Care Team Providers Care Central Supply Aide Name Role Phone Mychal Fields MD Primary Care Provide r Hima Fam Unavailable Unavailable Encounter Details Date Type Department Care Team (Late Contact Info) Description 06/11/2023 Orders Only [facility] & PEDS [address] [place], [place] [phone] Veda Isabel LPN Social History Tobacco Use [...] Description 12/23/2024 1:00 PM EDT Office Visit [facility] MEDICINE [address] [place], [place] [phone] Mychal Fields MD [address] [place], [place] [phone] documented as of this encounter Visit Diagnoses Not on filedocumented in this encounter Additional Health Concerns Assessment Noted Time PHQ-9 Depression Total Score: 0 05/10/20 23 10:38 AM EDT documented as of this encounter Care Teams Central Supply Aide Relationship Specialty Start Date End Date Mychal Fields MD [address] [place] [address] PCP - General Internal Medicine 04/30/14 Hima Fam FNP [address] [place] [address] Nurse Practitioner Family Medicine 08/01/23 documented as of this encounter
--- OUTSIDE RECORDS SUMMARY | 2024-10-30 11:53 | XMS_ITS | Encounter Summary ---
Author Organization [employer] Address [address] [place] [address] [place], [place] [address] Care Team Providers Care Acting Teacher Name Role Phone Mychal Fields MD Primary Care Provide r Hima Fam Unavailable Unavailable Reason for Visit * Reason Comments Pre-op Exam Date of Surgery: 08/04Surgical procedure being done: Cataracts right ey Encounter Details Date Type Department Care Team (Late st Contact Info) Description 10/06/2024 1:15 PM EST Office Visit [facility] PEDS [address] [place] [address] Nabeel Magana MD [address] [place] [address] Pre-op evaluation (Primary Dx) Social History Tobacco [...] AN EMPTY STOMACH 180 tablet 0 rizatriptan LARD TUB WASHER (Maxalt-LARD TUB WASHER) 5 MG disintegrating tablet PLEASE SEE ATTACHED [...] 12/23/2024 1:00 PM EDT Office Visit [facility] MEDICINE [address] [place] [address] Mychal Fields MD [address] [place] [address] documented as of this encounter Visit Diagnoses Diagnosis Pre-op evaluation- Primary documented in this encounter Additional Health Concerns Assessment Noted Time PHQ-9 Depression Total Score: 6 09/16/19 25 10:06 AM EST documented as of this encounter Care Teams Acting Teacher Relationship Specialty Start Date End Date Mychal Fields MD [address] [place] [address] PCP - General Internal Medicine 04/30/14 Hima Fam FNP [address] [place] [address] Nurse Practitioner Family Medicine 08/01/23 documented as of this encounter
--- OUTSIDE RECORDS SUMMARY | 2024-10-30 11:53 | XMS_ITS | Encounter Summary ---
Author Organization [employer] Address [address] [facility] 7t [place] [address] Care Team Providers Care Tin Can Feeder Name Role Phone Mychal Fields MD Primary [...] Description 12/23/2024 1:00 PM EDT Office Visit [facility] MEDICINE [address] [place] [address] Mychal Fields MD [address] [place] [address] documented as of this encounter Visit Diagnoses Not on filedocumented in this encounter Additional Health Concerns Assessment Noted Time PHQ-9 Depression Total Score: 6 09/16/19 25 10:06 AM EST documented as of this encounter Care Teams Tin Can Feeder Relationship Specialty Start Date End Date Mychal Fields MD [address] [place] [address] PCP - General Internal Medicine 04/30/14 Hima Fam FNP [address] [place] [address] Nurse Practitioner Family Medicine 08/01/23 documented as of this encounter
--- OUTSIDE RECORDS SUMMARY | 2024-10-30 11:53 | XMS_ITS | Encounter Summary ---
Author Organization [employer] Address [address] [place] [address] 7 [place] [address] Care Team Providers Care Programmer Analyst Health It Name Role Phone Mychal Fields MD Primary Care Provide r Hima Fam Unavailable Unavailable Reason for Visit * Reason Onset Date Comments Bhavana Recall 10/03/2024 Encounter Details Date Type Department Care Team ([facility] Contact Info) Description 10/03/[address] [facility] MEDICINE [address] [place] [address] Mychal Fields MD [address] [place] [address] December Recall Social History Tobacco Use Types [...] [place] - 10/03/2024 3:37 PM EST T/C- Panel Raiser Operator Left Voice Mail to return call to schedule an appointment. Recall letter sent. Appointment: Office Visit Note: HTN Month: December With: Annalisa Please schedule appointment if Patient calls Back. documented in this encounter Plan of Treatment Upcoming Encounters Date Type Department Care Team (Late st Contact Info) Description 12/23/2024 1:00 PM EDT Office Visit [facility] MEDICINE [address] [place] [address] Mychal Fields MD [address] [place] [address] documented as of this encounter Visit Diagnoses Not on filedocumented in this encounter Additional Health Concerns Assessment Noted Time PHQ-9 Depression Total Score: 6 09/16/19 25 10:06 AM EST documented as of this encounter Care Teams Programmer Analyst Health It Relationship Specialty Start Date End Date Mychal Fields MD [address] [place] [address] PCP - General Internal Medicine 04/30/14 Hima Fam FNP [address] [place] [address] Nurse Practitioner Family Medicine 08/01/23 documented as of this encounter
--- OUTSIDE RECORDS SUMMARY | 2024-10-30 11:53 | XMS_ITS | Encounter Summary ---
Author Organization [employer] Address [address] [place] [address] 7t [place] [address] Care Team Providers Care Tank Riveter Name Role Phone Mychal Fields MD Primary Care Provide r Hima Fam Unavailable Unavailable Reason for Visit * Reason Comments Med Refill Encounter Details Date Type Department Care Team (Late st Contact Info) Description 10/06/2024 Refill [facility] MED & PEDS [address] [place] [address] Mychal Fields MD [address] [place] [address] Anxiety and depression Social History Tobacco Use [...] your housing situation today? I have geefaisal satley 05/15/[address] you li [...] Description 12/23/2024 1:00 PM EDT Office Visit [facility] MEDICINE [address] [place] [address] Mychal Fields MD [address] [place] [address] documented as of this encounter Visit Diagnoses Diagnosis Anxiety and depression documented in this encounter Additional Health Concerns Assessment Noted Time PHQ-9 Depression Total Score: 6 09/16/19 25 10:06 AM EST documented as of this encounter Care Teams Tank Riveter Relationship Specialty Start Date End Date Mychal Fields MD [address] [place] [address] PCP - General Internal Medicine 04/30/14 Hima Fam FNP [address] [place] [address] Nurse Practitioner Family Medicine 08/01/23 documented as of this encounter
--- OUTSIDE RECORDS SUMMARY | 2024-10-30 11:53 | XMS_ITS | Encounter Summary ---
Author Organization [employer] Address [address] [place] [address] 7 [place] [address] Care Team Providers Care Diathermy Equipment Repairer Name Role Phone Mychal Fields MD Primary Care Provide r Hima Fam Unavailable Unavailable Reason for Visit * Reason Comments Med Refill Encounter Details Date Type Department Care Team ([facility] st Contact Info) Description 10/11/2024 Refill [facility] MEDICINE [address] [place] [address] Mychal Fields MD [address] [place], [place] [phone] Social History Tobacco Use Types Packs/Day Years [...] Description 12/23/2024 1:00 PM EDT Office Visit [facility] MEDICINE [address] [place] [address] Mychal Fields MD [address] [place] [address] documented as of this encounter Visit Diagnoses Not on filedocumented in this encounter Additional Health Concerns Assessment Noted Time PHQ-9 Depression Total Score: 6 09/16/19 25 10:06 AM EST documented as of this encounter Care Teams Diathermy Equipment Repairer Relationship Specialty Start Date End Date Mychal Fields MD [address] [place] [address] PCP - General Internal Medicine 04/30/14 Hima Fam FNP [address] [place] [address] Nurse Practitioner Family Medicine 08/01/23 documented as of this encounter
--- OUTSIDE RECORDS SUMMARY | 2024-10-30 11:53 | XMS_ITS | Encounter Summary ---
Author Organization [employer] Address [address] [place] [address] 7t [place] [address] Care Team Providers Care Cloud Physicist Name Role Phone Mychal Fields MD Primary Care Provide r Hima Fam Unavailable Unavailable Reason for Visit * Reason Comments Med Refill Encounter Details Date Type Department Care Team ([facility] st Contact Info) Description 07/27/2023 Refill [facility] MEDICINE [address] [place] [address] Mychal Fields MD [address] [place], [place] [phone] Social History Tobacco Use Types Packs/Day Years [...] Office Visit [facility] MEDICINE [address] [place] [address] Mychal Fields MD [address] [place] [address] documented as of this encounter Visit Diagnoses Not on filedocumented in this encounter Additional Health Concerns Assessment Noted Time PHQ-9 Depression Total Score: 0 05/10/20 23 10:38 AM EDT documented as of this encounter Care Teams Cloud Physicist Relationship Specialty Start Date End Date Mychal Fields MD [address] [place] [address] PCP - General Internal Medicine 04/30/14 Hima Fam FNP [address] [place] [address] Nurse Practitioner Family Medicine 08/01/23 documented as of this encounter
--- OUTSIDE RECORDS SUMMARY | 2024-10-30 11:53 | XMS_ITS | Encounter Summary ---
Author Organization [employer] Address [address] [place] [address] 7t [place] [address] Care Team Providers Care Pastry Cook Apprentice Name Role Phone Mychal Fields MD Primary Care Provide r Hima Fam Unavailable Unavailable Reason for Visit * Reason Comments Med Refill Encounter Details Date Type Department Care Team ([facility] st Contact Info) Description 07/27/2023 Refill [facility] MEDICINE [address] [place] [address] Mychal Fields MD [address] [place], [place] [phone] Social History Tobacco Use Types Packs/Day Years [...] 12/23/2024 1:00 PM EDT Office Visit [facility] MEDICINE [address] [place] [address] Mychal Fields MD [address] [place] [address] documented as of this encounter Visit Diagnoses Not on filedocumented in this encounter Additional Health Concerns Assessment Noted Time PHQ-9 Depression Total Score: 0 05/10/20 23 10:38 AM EDT documented as of this encounter Care Teams Pastry Cook Apprentice Relationship Specialty Start Date End Date Mychal Fields MD [address] [place] [address] PCP - General Internal Medicine 04/30/14 Hima Fam FNP [address] [place] [address] Nurse Practitioner Family Medicine 08/01/23 documented as of this encounter
== END 2024-10-30 11:18 | disposition home or self-care (01) ==
LOC: HO.RHE 10:42
PROVIDERS: PCP Internal Medicine; Visit Provider Student in an Organized Health Care Education/Training Program
DX: M17.0 Bilateral primary osteoarthritis of knee (principal); M79.7 Fibromyalgia
CPT/HCPCS: 20610; 99213

== ENCOUNTER → 2024-10-30 10:42 | Outpatient (BNVA) | payer MEDICAID, SELFPAY | PROVIDERS: PCP Internal Medicine; Visit Provider Student in an Organized Health Care Education/Training Program | DX: M17.0 Bilateral primary osteoarthritis of knee (principal); M79.7 Fibromyalgia | CPT/HCPCS: 20610; 99212; J7323 ==

== ENCOUNTER 2024-11-05 14:36 | Outpatient (AMB) | payer MEDICAID, SELFPAY ==
--- NOTE | 2024-11-05 14:49 | MHC.OFFVIS ---
Vital Signs 11/05/24 14:52 Height 5 ft 5 in Weight 216 lb BMI 35.9 Intake Visit Reasons: medication follow up Cocoa Bean Roaster Helper Required: Yes Cocoa Bean Roaster Helper Language: Care Center Manager Services: Cocoa Bean Roaster Helper Present (in person) Cocoa Bean Roaster Helper Name: Guadalupe MYERS Information Interpreted: non-clinical & clinical Pick Out Hand: Pick Out Hand Present (Guadalupe MYERS) Accompanied by: Self / Same As Patient Allergies metronidazole Allergy (Severe, Verified 11/05/24 14:55) vomiting Penicillins Allergy (Mild, Verified 11/05/24 14:53) VAGINAL FUNGUS INFECTION lisinopril [LISINOPRIL] Allergy (Unknown, Verified 11/05/24 14:53) COUGH verapamil Allergy (Unknown, Verified 11/05/24 14:53) unknown HPI Comments Details: Presenting because of herpes outbreak end [facility] Cataract, right eye Bilateral primary osteoarthritis of knee Gallstone pancreatitis Palpitations Fibromyalgia Depression Glaucoma HTN (hypertension) Surgical History H/O colonoscopy History of tubal ligation Hx of carpal tunnel repair Hx of cholecystectomy Hx of knee surgery Family History Father Kidney disease Mother CVD (cardiovascular disease) Colon cancer Social History Alcohol intake: never Patient Tobacco Use Status: Current everyday Tobacco user Cigarette Packs Per Day: 0.5 Cigarettes Per Day: 10 Years Smoked: 30 Female Reproductive History Menstrual Age of Menarche: 9 Review of Systems Const All systems reviewed & are unremarkable except as noted in HPI and below Physical Exam Vital Signs: BMI result Body Mass Index 35.9 Other: Speculum and bimanual exam deferred since the patient is having tenderness from the herpes outbreak General: Yes no CVA tenderness External Female Exam: No normal external appearance (Multiple vulvar ulcer-hsv) and normal appearance of the urethra Back/Spine/Pelvis Back: no CVA tenderness Assessment & Plan Assessment & Plan (1) Herpes genitalia: Code(s): A60.00 - Herpesviral infection of urogenital system, unspecified Category: Medical Plan: Discussed with the patient the findings on physical exam, will send order for STDs including RPR, hep B and C, HIV, GC and chlamydia and Trichomonas. Valtrex Prescription 500 mg p.o. b.i.d. for 3 days days for recurrent outbreak was sent to the patient pharmacy with 6 refills, follow-up in 2 weeks for re-evaluation. all questions answered patient verbalized understanding. Orders: Orders HIV Ab/Ag Today Z20.2 - Contact with and (suspected) exposure to infections with a predominantly sexual mode of transmission Hepatitis C Antibody Today Z20.2 - Contact with and (suspected) exposure to infections with a predominantly sexual mode of transmission Hepatitis B Surface Antigen Today Z20.2 - Contact with and (suspected) exposure to infections with a predominantly sexual mode of transmission Syphilis Screen Today Z20.2 - Contact with and (suspected) exposure to infections with a predominantly sexual mode of transmission Medications: New valacyclovir 500 mg PO BID 3 days 6 tabs 0RF Coding Level of Care Code Est Pt Level 3 (32138) Diagnoses Herpes genitalia A60.00
[2024-11-05 14:52] VITALS: BMI 35.9
--- OUTSIDE RECORDS SUMMARY | 2024-11-05 18:00 | XMS_ITS | Encounter Summary ---
Author Organization [employer] Address [address] [place] [address] Care Team Providers Care Pipe Fitter Helper Name Role Phone Mychal Fields MD Primary Care Provide r Hima Fam Unavailable Unavailable Encounter Details Date Type Department Care Team (Late st Contact Info) Description 10/27/2024 Orders Only [facility] External Provider, [facility] Social History Tobacco Use Types Packs/Day [...] Upcoming Encounters Date Type Department Care Team ([facility] st Contact Info) Description 12/23/2024 1:00 PM EDT Office Visit [facility] [address] [place] [address] Mychal Fields MD [address] [place] [phone] documented as of this encounter Procedures Procedure Name Priority Date/Time Associated Diagnosis Comments BI MAMMOGRAM SCREENING TOMOSYNTHESIS BILATERAL Routine 10/29/2024 12:[address] ABDOMEN PELVIS WO CONTRAST Routine 10/27/2024 3:13 AM EST documented in this encounter Results * BI Mammogram Screening Tomosynthesis Bilateral (10/29/2024 12:58 PM EST) Anatomical Region Laterality Modality Breast Bilateral Mammography 10/29/2024 12:5 8 PM EST Narrative 11/04/2024 12:41 PM EST ? [facility] ? [address] ?[place] [address] ? Mammography Report ? Signed ? Patient: Clark,Elaine ?MR#: [id number] ? : 1970 ?Acct:[id number] ? Age/Sex: 53 / F ?ADM Date: 02/19/25 ? Loc: HO.MAMMO ? Attending Dr: Mychal Long MD ? Ordering Physician: Syed Coreas MD ?Results: 1Negativ ?? e ? Date of Service: 10/29/24 ?Follow Up: 1 Year From Orig ?? inal Mammogram ? Procedure(s): MM tomosynthesis screening BI ?? Accession Number(s): [id number] ? cc: Mychal Long MD; Syed Coreas MD ? EXAMINATION: ?? MM SCREENING DIGITAL BREAST TOMOSYNTHESIS, BILATERAL ? CLINICAL INFORMATION: ? Screening. Asymptomatic. ? COMPARISON: ?? Mammography: Comparison is made with available priors ? TECHNIQUE: ?? Digital breast mammography with tomosynthesis is performed in both the ?? craniocaudal and mediolateral oblique views along with computer-aided ?? detection (CAD). ? FINDINGS: ?? There are scattered areas [...] due date for their next mammogram. ? Electronically signed by: ??Shayy Connor DO ??11/04/2024 12:38 PM EST ?? RP ? Dictated By: ?Shayy Connor DO ? Signed By: ?<Electronically signed by Shayy Connor, DO in OV> ? 11/04/24 1238 ? DD/ 1258 ? TD/TT: 10/29/24 1315 ? Trash Collector Truck Driver: ? Procedure Note Donotuseinterpreter, Image - 11/04/2024 [place] [facility] [address] [place], [place] [address] Mammography Report Signed Patient: Elaine RodasMR#: [id number] : 1970Acct:[id number] Age/Sex: 53 / FADM Date: 10/29/24 Loc: HO.MAMMO Attending Dr: Mychal Long MD Ordering Physician: Syed Coreasesults: 1Negativ e Date of Service: 10/29/24Follow Up: 1 Year From Orig inal Mammogram Procedure(s): MM tomosynthesis screening BI Accession Number(s): [id number] cc: Mychal Long MD; Syed Coreas MD EXAMINATION: MM SCREENING DIGITAL BREAST TOMOSYNTHESIS, BILATERAL CLINICAL INFORMATION: Screening. Asymptomatic. COMPARISON: Mammography: Comparison is made with available priors TECHNIQUE: Digital breast mammography with tomosynthesis is performed in both the craniocaudal and mediolateral oblique views along with computer-aided detection (CAD). FINDINGS: There are scattered areas of fibroglandular [...] target due date for their next mammogram. Electronically signed by: Shayy Connor DO 11/04/2024 12:38 PM EST RP Dictated By: Shayy Connor DO Signed By: <Electronically signed by Shayy Connor DO in OV> 11/04/24 1238 DD/ 1258 TD/TT: 10/29/24 1315 Trash Collector Truck Driver: [facility] External Provider IMG BI PROCEDURES Final Result * CT Abdomen Pelvis w/o Contrast (10/27/2024 3:13 AM EST) Anatomical Region Laterality Modality Body, Pelvis, Abdomen Computed T omography 10/27/2024 3:13 AM EST Narrative 10/27/2024 3:15 AM EST ? [facility] ?[address] ?[place] [address] ? CT Scan Report ? Signed ? Patient: Elaine Rodas ?MR#: [id number] ? : 1970 ?Acct:[id number] ? Age/Sex: 53 / F ?ADM Date: 10/27/24 ? Loc: HO.ED ? Attending Dr: ? Ordering Physician: Jaime Parker MD ?? Date of Service: 10/27/24 ?? Procedure(s): CT abdomen pelvis wo IV con ?? Accession Number(s): [id number] ? cc: [facility]; Jaime Parker MD ? Report Number: ?? [id number]: Total DLP = ??740.00 mGy-cm ? CLINICAL [...] bones are intact. ? IMPRESSION: ?? 1. Scfd-ze-ympyjkkp edema identified within the small bowel mesentery, [...] by Cheo Nieves MD in OV> ? 10/27/24 0314 ? DD/ 2 ? TD/TT: 10/27/24312 ? Trash Collector Truck Driver: ? Procedure Note Nishi, Yas - 10/27/[address] [place] [address] [address] Scan Report Signed Patient: Elaine RodasMR#: [id number] : 1970Acct:[id number] Age/Sex: 53 / FADM Date: 10/27/24 Loc: HO.ED Attending Dr: Ordering Physician: Jaime Parker MD Date of Service: 10/27/24 Procedure(s): CT abdomen pelvis wo IV con Accession Number(s): [id number] cc: [facility]; Jaime Parker MD Report Number: [id number]: Total DLP = 740.00 mGy-cm CLINICAL HISTORY: [...] appendix. The bones are intact. IMPRESSION: 1. Tnrj-he-gjgcktgy edema identified within the small bowel mesentery, [...] in OV> 10/27/24313 DD/ 2 TD/TT: 10/27/24312 Trash Collector Truck Driver: [facility] External Provider IMG CT PROCEDURES Final Result documented in this encounter Visit Diagnoses Not on filedocumented in this encounter Additional Health Concerns Assessment Noted Time PHQ-9 Depression Total Score: 6 09/16/19 25 10:06 AM EST documented as of this encounter Care Teams Pipe Fitter Helper Relationship Specialty Start Date End Date Mychal Fields MD [address] [place] [address] PCP - General Internal Medicine 04/30/14 Hima Fam FNP [address] [place] [address] Nurse Practitioner Family Medicine 08/01/23 documented as of this encounter
--- OUTSIDE RECORDS SUMMARY | 2024-11-05 18:00 | XMS_ITS | Encounter Summary ---
Author Organization [employer] Address [address] [place] [address] 7[address] [place] [address] Care Team Providers Care Tin Cutter Name Role Phone Mychal Fields MD Primary Care Provide r Hima Fam Unavailable Unavailable Encounter Details Date Type Department Care Team (Late st Contact Info) Description 12/05/2022 Orders Only [facility] [address] [place], [place] [phone] Veda Isabel LPN Social History Tobacco Use [...] 12/23/2024 1:00 PM EDT Office Visit [facility] MEDICINE [address] [place], [place] [phone] Mychal Fields MD [address] [place], [place] [phone] documented as of this encounter Visit Diagnoses Not on filedocumented in this encounter Additional Health Concerns Assessment Noted Time PHQ-9 Depression Total Score: 7 10/09/19 23 4:00 PM EST documented as of this encounter Care Teams Tin Cutter Relationship Specialty Start Date End Date Mychal Fields MD [address] [place] [address] PCP - General Internal Medicine 04/30/14 Hima Fam FNP [address] [place] [address] Nurse Practitioner Family Medicine 08/01/23 documented as of this encounter
--- OUTSIDE RECORDS SUMMARY | 2024-11-05 18:00 | XMS_ITS | Encounter Summary ---
Author Organization [employer] Address [address] [place] [address] [address] [address] Care Team Providers Care Manager Statistical Programming Name Role Phone Mychal Fields MD Primary Care Provide r Hima Fam Unavailable Unavailable Encounter Details Date Type Department Care Team (Late st Contact Info) Description 12/04/2022 Telephone [facility] MEDICINE [address] [place] [address] [phone] Mychal Fields MD [address] [place], [place] [phone] Social History Tobacco Use Types Packs/Day Years [...] Visit [facility] [address] [place] [address] [phone] Mychal Fields MD [address] [place], [place] [phone] documented as of this encounter Visit Diagnoses Not on filedocumented in this encounter Additional Health Concerns Assessment Noted Time PHQ-9 Depression Total Score: 7 10/09/19 23 4:00 PM EST documented as of this encounter Care Teams Manager Statistical Programming Relationship Specialty Start Date End Date Mychal Fields MD [address] [place] [address] PCP - General Internal Medicine 04/30/14 Hima Fam FNP [address] [place] [address] Nurse Practitioner Family Medicine 08/01/23 documented as of this encounter
--- OUTSIDE RECORDS SUMMARY | 2024-11-05 18:00 | XMS_ITS | Encounter Summary ---
Author Organization [employer] Address [address] [place] [address] 7 [place] [address] Care Team Providers Care Alternative Medicine Practitioner Name Role Phone Mychal Fields MD Primary Care Provide r Hima Fam Unavailable Unavailable Reason for Visit * Reason Onset Date Comments Appointment Request 12/04/2022 Encounter Details Date Type Department Care Team ([facility] Contact Info) Description 12/04/2022 Telephone [facility] MED[facility]INE [address] [place] [address] Mychal Fields MD [address] [place] [address] Appointment Request Social History Tobacco Use Types [...] ff/u Bp ) Please contact pt at [phone] * Telephone Encounter - Wesley Collins - 12/04/2022 2:02 PM EDT Tc from pt requesting to r/s appt on 10/19/22 ( ff/u Bp ) Please contact pt at [phone] documented in this encounter Plan of Treatment Upcoming Encounters Date Type Department Care Team (Late st Contact Info) Description 12/23/2024 1:00 PM EDT Office Visit [facility] [address] [facility] [facility] [place] [address] Mychal Fields MD [address] [place] [address] documented as of this encounter Visit Diagnoses Not on filedocumented in this encounter Additional Health Concerns Assessment Noted Time PHQ-9 Depression Total Score: 7 10/09/19 23 4:00 PM EST documented as of this encounter Care Teams Alternative Medicine Practitioner Relationship Specialty Start Date End Date Mychal Fields MD [facility] [place] [place] [address] PCP - General Internal Medicine 04/30/14 Hima Fam FNP [address] [place] [address] Nurse Practitioner Family Medicine 08/01/23 documented as of this encounter
--- OUTSIDE RECORDS SUMMARY | 2024-11-05 18:00 | XMS_ITS | Encounter Summary ---
Author Organization [employer] Address [address] [place] [address] [place] [address] Care Team Providers Care Motocross Racer Name Role Phone Mychal Fields MD Primary Care Provide r Hima Fam Unavailable Unavailable Encounter Details Date Type Department Care Team (Late st Contact Info) Description 04/24/2023 Orders Only [facility] MEDICINE [address] [place] [phone] Zena Harley MD [address] [place] [address] [phone] Acquired clavicle deformity (Primary Dx) Social History [...] Description 12/23/2024 1:00 PM EDT Office Visit [facility] MEDICINE [address] [place] [address] [phone] Mychal Fields MD [address] [place] [address] [phone] Scheduled Orders Name Type Priority Associated Diagnoses [...] EDT Narrative 05/14/2023 4:45 PM EDT ? [facility] ?[address] ?[place] [address] ?XRay Report ? Signed ? Patient: Elaine Rodas ?MR#: [id number] ? : 1970 ?Acct:[id number] ? Age/Sex: 52 / F ?ADM Date: 05/14/23 ? Loc: HO.ED ? Attending Dr: ? Ordering Physician: Vee Castano NP ?? Date of Service: 05/14/23 ?? Procedure(s): XR chest 2V ?? Accession Number(s): [id number] ? cc: Mychal Long MD; Vee Castano [...] 05/14/231641 ? DD/ 23 ? TD/TT: ? Equip Tech: SUJ ? Procedure Note Didiermateojacoboparrishmallory, Image - 05/14/[address] [address] XRay Report Signed Patient: Elaine RodasMR#: [id number] : 1970Acct:[id number] Age/Sex: 52 / FADM Date: 05/14/23 Loc: HO.ED Attending Dr: Ordering Physician: Vee Castano NP Date of Service: 05/14/23 Procedure(s): XR chest 2V Accession Number(s): [id number] cc: Mychal Long MD; Vee Castano NP [...] in OV> 05/14/23 1642 DD/ 1624 TD/TT: Equip Tech: DORITA [facility] External Provider IMG XR PROCEDURES Edited Result - Final * XR Foot 3+ Views Right (05/10/2023 11:44 AM EDT) Anatomical Region Laterality Modality Lower Extremities, Foot Right Radiogra phic Imaging 05/10/2023 11:4 4 AM EDT Narrative 05/10/2023 12:08 PM EDT ?[facility] ?[address] ?[place] [address] ?XRay Report ? Signed ? Patient: Clark,Elaine ?MR#: [id number] ? : 1970 ?Acct:[id number] ? Age/Sex: 52 / F ?ADM Date: 08/31/23 ? Loc: HO.HHCX ? Attending Dr: Mychal Long MD ? Ordering Physician: Mychal Long MD ?? Date of Service: 05/10/23 ?? Procedure(s): XR foot RT min 3V ?? Accession Number(s): [id number] ? cc: Mychal Long MD ? EXAMINATION: [...] 1205 ? DD/ 1144 ? TD/TT: ? Equip Tech: GR ? Procedure Note Yas Almodovar - 05/10/2023 [place] [address] XRay Report Signed Patient: Elaine RodasMR#: [id number] : 1970Acct:[id number] Age/Sex: 52 / FADM Date: 05/10/23 Loc: HO.HHCX Attending Dr: Mychal Long MD Ordering Physician: Mychal Long MD Date of Service: 05/10/23 Procedure(s): XR foot RT min 3V Accession Number(s): [id number] cc: Mychal Long MD EXAMINATION: XR FOOT, [...] in OV> 05/10/23 1205 DD/ 1144 TD/TT: Equip Tech: YULISSA us Mychal Morris MD IMG XR PROCEDURES Fin al Result * FL Esophagus Barium Swallow w/Air (05/08/2023 10:19 AM EDT) Anatomical Region Laterality Modality Head, Neck Radiographic Hilda ging 05/08/2023 10:1 9 AM EDT Narrative 05/08/2023 4:35 PM EDT ? [facility] ?[address] ?[place] [address] ? Fluoroscopy Report ? Signed ? Patient: Elaine Rodas ?MR#: [id number] ? : 1970 ?Acct:[id number] ? Age/Sex: 52 / F ?ADM Date: 05/08/23 ? Loc: HO.XRAY ? Attending Dr: Mychal Long MD ? Ordering Physician: Mychal Long MD ?? Date of Service: 05/08/23 ?? Procedure(s): FL barium swallow with air ?? Accession Number(s): [id number] ? cc: Mychal Long MD ? EXAMINATION: [...] 1632 ? DD/ 1019 ? TD/TT: ? Equip Tech: ? 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
--- OUTSIDE RECORDS SUMMARY | 2024-11-05 18:00 | XMS_ITS | Data Portability ---
Author Organization [place] - [facility], Allergy Address [address] [address] Care Team Providers Care Park Worker Supervisor Name Role Phone GIACOMO MARX Primary Care Provider GIACOMO MARX Referring Provider [phone] Assessment Encounter Date Assessment Date Assessment LastModified by Organization Details LastModified Time 04/25/2024 04/25/2024 53-year-old female presents following DL with biopsy. Pathology was reviewed to be benign. 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 Overall reassurance was provided. follow up as scheduled. [email or web address] Not available 04/28/2024 15:04:21 Plan of Treatment [...] observ ation record ed. [email or web address] [facility] [address] [facility] [address], [place], [address], 02/25/2024 09:12:35 03/31/20 24 03/31/2024 US, neck, soft tissu e No observ ation [email or web address] [address] [facility], [place], [address], 04/11/2024 16:05:21 04/28/20 24 04/10/2024 clini bertha photo * No observ ation record ed. [email or web address] Not Available 17:00:02 04/29/20 24 05/08/2023 imagi ng/di agnos tic resul t No observ ation record ed. [email or web address] Not Available 21:42:28 Result Notes None recorded. Problems Name Problem SNOMED Code Status Onset Date Resolution Date Notes Provider Name and Address Organization Details Recorded Time Thyroid nodule 946373954 Active 2023 MADHU REYES MD 100 [facility], [place], [address] , [place] - [facility] 4 16:36:38 Hypertrop hy of tonsils AND adenoids 33339494 Active 2023 MADHU REYES MD 100 [facility], [place], [address] , [place] - [facility] 4 16:36:47 Hypertrop hy of lingual tonsil 708839255 Active 2023 MADHU REYES MD 100 [facility],[place] [address], [place], [address] , [place] - [facility] 4 16:36:52 Non-toxic uninodula r goiter 976814666 Active 2023 Nontoxic single thyroid nodule; Note: Date Diagnosed : 01/18/2024 11:58 AM (E04.1) Not Available [facility] 4 02:45:01 Mass of neck 720083065 Active 2023 Localized swelling, mass and lump, neck; Note: Date Diagnosed : 11/08/2023 11:56 AM (R22.1) Not Available [facility] 4 02:45:02 Neck swelling 355159442 Active 2023 Localized swelling, mass and lump, neck; Note: Date Diagnosed : 11/08/2023 11:56 AM (R22.1) Not Available [facility] 4 02:45:02 Neck pain 45759337 Active 2023 Cervicalg ia; Note: Date Diagnosed : 11/08/2023 11:56 AM (M54.2) Not Available [facility] 4 02:45:02 Dysphagia 49329977 Active 2023 Dysphagia , unspecifi ed; Note: Date Diagnosed : 11/08/2023 11:56 AM (R13.10) Not Available [facility] 4 02:45:05 Obstructi ve sleep apnea of adult 88151949459 03 Active 2023 MADHU REYES MD 100 [facility], [place], [address] , [place] - [facility] 4 08:48:15 Seasonal allergic rhinitis 862145058 Active 2023 MADHU REYES MD 100 [facility] [address], [place], [address] , [place] [facility] 4 08:52:06 Allergic rhinitis 80226824 Active 2023 MADHU REYES MD 100 [facility],[place] [address], [place], [address] , [place] - [facility] 4 08:52:17 Non-aller gic rhinitis 67587836314 1 Active 2023 MADHU REYES MD 100 [facility],[place] [address], [place], [address] , [facility] - [facility] 4 08:52:17 Problem Notes None recorded. Procedures Surgical History Date Name Laterality Status Provider Name and Address Organization Details Recorded Time 4 LARYNGOSCOPY, DIRECT OPERATIVE WITH OPERATING MICROSCOPE OR TELESCOPE WITH BIOPSY (SURG) completed Paulo Faria [place] - [facility] 04/14/2024 09:38:40 4 FFL_RE completed MADHU REYES MD 100 [facility],[place] [address], [place], [address], [facility] - [facility] 03/18/2024 17:33:49 Imaging Results Imaging Date Name Status LastModified by Organiz ation Details LastModified Time 02/19/2024 US, thyroid completed [email or web address] [facility] [address] [facility] [address], [place], [address], 02/25/2024 09:12:35 03/31/2024 US, neck, soft tissue completed [facility] (Imaging) [address] [place], [address], 04/11/2024 16:05:21 04/10/2024 clinical photo* completed [email or web address] [...] % eye drops active Medicatio n ID: [id number] Br and Name: latanopro st Send Method: E-Prescri bed Subs Allowed: subs OK Specia l Instructi on: PUT 1 DROP INTO BOTH EYES AT BEDTIME M edication GenericNa me: latanopro st Not Available Not Available Not Available terconazol e 0.4 % vaginal cream active Medicatio n ID: [id number] Br and Name: terconazo le Send Method: [...] 8.6 mg tablet active Medicatio n ID: [id number] Br and Name: senna Sen d Method: [...] 500 mg tablet active Medicatio n ID: [id number] Br and Name: valacyclo vir Send Method: [...] 50 mg tablet active Medicatio n ID: [id number] Br and Name: tramadol Send Method: E-Prescri bed Subs Allowed: subs OK Specia l Instructi on: TAKE 1 TABLET BY MOUTH EVERY 6 HOURS NEEDED FOR PAIN Medi cationGen ericName: tramadol Not Available Not Available Not Available ketorolac 0.5 % eye drops active Medicatio n ID: [id number] Br and Name: ketorolac Send Method: E-Prescri [...] 20 mg tablet active Medicatio n ID: [id number] Br and Name: dicyclomi ne Send Method: [...] 10 mg tablet active Medicatio n ID: [id number] Br and Name: buspirone Send Method: E-Prescri [...] 100 mg capsule active Medicatio n ID: [id number] Br and Name: gabapenti n Send Method: [...] 1 mg tablet active Medicatio n ID: [id number] Br and Name: varenicli ne Send Method: E-Prescri bed Subs Allowed: subs OK Specia l Instructi on: TAKE 1 TABLET BY MOUTH TWICE A DAY WITH GLASS OF WATER AFTER MEALS Med icationGe nericName : varenicli ne Not Available Not Available Not Available diclofenac 1 % topical gel active Medicatio n ID: [id number] Br and Name: diclofena c sodium Se [...] capsule,de layed release active Medicatio n ID: [id number] Br and Name: Creon Sen d Method: E-Prescri bed Subs Allowed: subs OK Specia l Instructi on: TAKE 1 CAPSULE BY MOUTH 4 TIMES A DAY. ADMINISTE R WITH MEALS AND OR SNACKS Me dicationG enericNam e: Creon Not Available Not Available Not Available blood pressure test kit-large cuff active Medicatio n ID: [id number] Br and Name: blood pressure test kit-large Send Method: E-Prescri bed Subs Allowed: subs OK Specia l Instructi on: USE TO CHECK BLOOD PRESSURE ONCE DAILY IN THE MORNING M edication GenericNa me: blood pressure test kit-large Not Available Not Available Not Available Dexilant 60 mg capsule, delayed release active Medicatio n ID: [id number] Br and Name: Dexilant Send Method: E-Prescri [...] Updated DateTime 03/18/2024 160.02 cm 36.8 kg/m2 64759.21 g Kodi Soni [place] [facility] 03/18/2024 16:16:00 Date Recorded Body height Body mass index (BMI) Body weight Provider Name and Address Organization Details Last Updated DateTime 04/25/2024 160.02 cm 36.8 kg/m2 58556.21 g Janeth Castro [facility] 04/25/2024 15:19:15 Date Recorded Body height Body mass index (BMI) Body weight Provider Name and Address Organization Details Last Updated DateTime 07/30/2024 160.02 cm 36.8 kg/m2 10850.21 g Marley Santamaria [facility] 07/30/2024 08:31:21 Social History None recorded. [...] Note [id number] MADHU REYES MD [facility] [address] [address] 03/18/2024 15:41:26 03/18/2024 17:01:09 Thyroid nodule 849278540 E04.1 I recommend a US guided FNA of the thyroid nodule. She will f/u to review. Hypertroph y of tonsils AND adenoids 11907722 J35.3 hypertroph y of Waldeyer's ring. lingual tonsil biopsy is less morbid to evaluate for lymphoma. see below. Hypertroph y of lingual tonsil 247532677 J35.3 I recommend direct laryngosco py with [...] We will schedule surgery mutually convenient time. [id number] MADHU REYES MD [facility] [address] [place] [address] 04/25/2024 15:12:06 04/30/2024 07:57:22 Hypertrophy of lingual tonsil 867126135 J35.3 Hypertroph y of tonsils AND adenoids 32057672 J35.3 Neck pain 99127587 M54.2 [id number] MADHU REYES MD [facility] [address] [place] [address] 07/30/2024 08:28:17 07/30/2024 08:55:15 Hypertrophy of lingual tonsil 587568987 J35.3 Biopsies negative. Gave reassuranc e. Continue observatio n. Deferred laryngosoc py today. Obstructiv e sleep apnea of adult 8426302343 103 G47.33 Agree with starting CPAP which is in process. Thyroid nodule 971794466 E04.1 Recommend repeat thyroid US at [facility] after next visit in 6 months. Seasonal a llergic rhinitis 926437410 J30.2 Exam and history are consistent with allergic rhinitis. We will obtain allergy testing to clarify the extent of allergy with f/u to review. Allergic rhinitis 999036 04 J30.9 Non-allergic rhinitis 31 73040290 01 J31.0 Health Concerns Section Related Observation LastModified by Organization Detai ls LastModified Time None Recorded Concern Status LastModified by Organization Details LastModified Time None Recorded Advance Directives Directive None Recorded Payers Encounter Date Sequence Insurance Name Policy Number Policy [place] Covered Member ID [id number] Member ID Guarantor Name 03/18/2024 1 [place] [facility] Rodas [id number] Elaine Rodas 04/25/2024 1 [place] [facility] Elaine Rodas [id number] Elaine Rodas 07/30/2024 1 [place] [facility] Elaine Rodas [id number] Elaine Rodas Notes Date Note Type Note [...] by her other doctors. MADHU REYES MD [address] [place] [address], [address], [place] - [facility] 03/18/2024 17:45:03 04/25/2024 text/html 53-year-old fema nidia presents following DL with biopsy. She continues to have mild sore throat but no bleeding. Biopsy was done due to hypertrophy of Waldeyer's ring on imaging. MADHU REYES MD [address] [place] [address],[address], [address], [place] - [facility] 04/29/2024 10:01:40 07/30/2024 text/html Hx of hypertroph [...] allergies with marginal benefit. MADHU REYES MD [address] [place] [address], [place], [address], [place] [facility] 07/30/2024 08:52:32 OBGyn Episode No OBEpisode recorded.
--- OUTSIDE RECORDS SUMMARY | 2024-11-05 18:00 | XMS_ITS | Encounter Summary ---
Author Organization [employer] Address [address] [place] [address] 7 [place] [address] Care Team Providers Care Ortho Rn Name Role Phone Mychal Fields MD Primary Care Provide r Hima Fam Unavailable Unavailable Reason for Visit * Reason Comments Med Refill Encounter Details Date Type Department Care Team ([facility] st Contact Info) Description 10/11/2024 Refill [facility] MEDICINE [address] [place] [address] Mychal Fields MD 230 [place], [place] [phone] Social History Tobacco Use Types Packs/Day Years [...] Visit [facility] MEDICINE [address] [place] [address] Mychal Fields MD 230 [place] [address] documented as of this encounter Visit Diagnoses Not on filedocumented in this encounter Additional Health Concerns Assessment Noted Time PHQ-9 Depression Total Score: 6 09/16/19 25 10:06 AM EST documented as of this encounter Care Teams Ortho Rn Relationship Specialty Start Date End Date Mychal Fields MD [address] [place] [address] PCP - General Internal Medicine 04/30/14 Hima Fam FNP [address] [place] [address] Nurse Practitioner Family Medicine 08/01/23 documented as of this encounter
--- OUTSIDE RECORDS SUMMARY | 2024-11-05 18:00 | XMS_ITS | Encounter Summary ---
Author Organization [employer] Address [address] [place] [address] 7t [place] [address] Care Team Providers Care Adoption Specialist Name Role Phone Mychal Fields MD Primary Care Provide r Hima Fam Unavailable Unavailable Reason for Visit * Reason Comments Med Refill Encounter Details Date Type Department Care Team (Late st Contact Info) Description 10/11/2024 Refill [facility] MEDICINE 230 [place] [address] Bette Wynn MD 230 [place] [address] Low vitamin D level Social History Tobacco [...] EDT Office Visit [facility] [address] [place] [address] Mychal Fields MD [address] [place] [address] documented as of this encounter Visit Diagnoses Diagnosis Low vitamin D level documented in this encounter Additional Health Concerns Assessment Noted Time PHQ-9 Depression Total Score: 6 09/16/19 25 10:06 AM EST documented as of this encounter Care Teams Adoption Specialist Relationship Specialty Start Date End Date Mychal Fields MD [address] [place] [address] PCP - General Internal Medicine 04/30/14 Hima Fam FNP [address] [place] [address] Nurse Practitioner Family Medicine 08/01/23 documented as of this encounter
--- OUTSIDE RECORDS SUMMARY | 2024-11-05 18:00 | XMS_ITS | Encounter Summary ---
Author Organization [employer] Address [address] [place] [address], [place] [address] Care Team Providers Care Radio Broadcaster Name Role Phone Mychal Fields MD Primary Care Provide r Hima Fam Unavailable Unavailable Reason for Visit * Reason Comments Med Change Request Encounter Details Date Type Department Care Team (Late st Contact Info) Description 10/19/[address] [facility] MEDICINE [address] [place] [address] Mychal Fields MD [address] [place] [phone] Fibromyalgia Social History Tobacco Use Types Packs/Day [...] 1:00 PM EDT Office Visit [facility] MEDICINE [address] [place] [address] [phone] Mychal Fields MD [address] [place] [address] [phone] documented as of this encounter Visit Diagnoses Diagnosis Fibromyalgia Unspecified myalgia and myositis documented in this encounter Additional Health Concerns Assessment Noted Time PHQ-9 Depression Total Score: 7 10/09/19 23 4:00 PM EST documented as of this encounter Care Teams Radio Broadcaster Relationship Specialty Start Date End Date Mychal Fields MD 230 [place] [address] PCP - General Internal Medicine 04/30/14 Hima Fam FNP [address] [place] [address] Nurse Practitioner Family Medicine 08/01/23 documented as of this encounter
--- OUTSIDE RECORDS SUMMARY | 2024-11-05 18:00 | XMS_ITS | Encounter Summary ---
Author Organization [employer] Address [address] [place] [address] 7 [place] [address] Care Team Providers Care Occupational Therapy Director Name Role Phone Mychal Fields MD Primary Care Provide r Hima Fam Unavailable Unavailable Reason for Visit * Reason Comments Med Refill Encounter Details Date Type Department Care Team (Late Contact Info) Description 10/05/2022 Refill [facility] MEDICINE 230 [place] [address] Hima Fam FNP Anxiety state Social History [...] 1:00 PM EDT Office Visit [facility] MEDICINE [address] [place], [place] [phone] Mychal Fields MD 230 [place] [address] documented as of this encounter Visit Diagnoses Diagnosis Anxiety state Anxiety state, unspecified documented in this encounter Care Teams Occupational Therapy Director Relationship Specialty Start Date End Date [place] [address] PCP - General Internal Medicine 04/30/14 Hima Fam FNP [address] [place] [address] [place] [address] Nurse Practitioner Family Medicine 08/01/23 documented as of this encounter
--- OUTSIDE RECORDS SUMMARY | 2024-11-05 18:00 | XMS_ITS | Encounter Summary ---
Author Organization [email or web address] Address [address] [place] [address] [address] [address] Care Team Providers Care Advertising Sales Associate Name Role Phone Mychal Fields MD Primary Care Provide r Hima Fam Unavailable Unavailable Reason for Visit * Reason Comments Pre-op Exam Date of Surgery: 08/04Surgical procedure being done: Cataracts right ey Encounter Details Date Type Department Care Team (Late st Contact Info) Description 10/06/2024 1:15 PM EST Office Visit [facility] [address] [place] [address] Nabeel Magana MD [address] [place] [address] Pre-op evaluation (Primary Dx) Social History Tobacco [...] AN EMPTY STOMACH 180 tablet 0 rizatriptan SIGNALS OFFICER (Maxalt-SIGNALS OFFICER) 5 MG disintegrating tablet PLEASE SEE [...] Visit [facility] MEDICINE [address] [place] [address] Mychal Fields MD [address] [place] [address] documented as of this encounter Visit Diagnoses Diagnosis Pre-op evaluation- Primary documented in this encounter Additional Health Concerns Assessment Noted Time PHQ-9 Depression Total Score: 6 09/16/19 25 10:06 AM EST documented as of this encounter Care Teams Advertising Sales Associate Relationship Specialty Start Date End Date Mychal Fields MD 230 [place] [address] PCP - General Internal Medicine 04/30/14 Hima Fam FNP [address] [place] [address] Nurse Practitioner Family Medicine 08/01/23 documented as of this encounter
--- OUTSIDE RECORDS SUMMARY | 2024-11-05 18:01 | XMS_ITS | Encounter Summary ---
Author Organization [employer] Address [address] [facility] 7t [place] [address] Care Team Providers Care Supervisor Testing Name Role Phone Mychal Fields MD Primary [...] Office Visit [facility] MEDICINE [address] [place] [address] Mychal Fields MD [address] [place] [address] documented as of this encounter Visit Diagnoses Not on filedocumented in this encounter Additional Health Concerns Assessment Noted Time PHQ-9 Depression Total Score: 6 09/16/19 25 10:06 AM EST documented as of this encounter Care Teams Supervisor Testing Relationship Specialty Start Date End Date Mychal Fields MD [address] [place] [address] PCP - General Internal Medicine 04/30/14 Hima Fam FNP [address] [place] [address] Nurse Practitioner Family Medicine 08/01/23 documented as of this encounter
--- OUTSIDE RECORDS SUMMARY | 2024-11-05 18:01 | XMS_ITS | Encounter Summary ---
Author Organization [employer] Address [address] [place] [address] 7 [place] [address] Care Team Providers Care Solderer Name Role Phone Mychal Fields MD Primary Care Provide r Hima Fam Unavailable Unavailable Reason for Visit * Reason Onset Date Comments Nurse Triage 08/05/2024 Encounter Details Date Type Department Care Team ([facility] st Contact Info) Description 08/05/2024 Telephone [facility] MEDICINE [address] [place] [address] Mychal Fields MD [address] [place] [address] Nurse Triage Social History Tobacco Use Types [...] for cough.Pt is offered to come to [facility] to be seen by provider, [...] Pt didn't answer. Left message to call [facility] [phone]. Advised will call back in about 15 [...] symptoms except for fever. Contact pt at [phone] (swedish) documented in this encounter Plan of Treatment Upcoming Encounters Date Type Department Care Team (Late st Contact Info) Description 12/23/2024 1:00 PM EDT Office Visit [facility] MEDICINE [address] [place] [address] Mychal Fields MD [address] [place] [address] documented as of this encounter Visit Diagnoses Not on filedocumented in this encounter Additional Health Concerns Assessment Noted Time PHQ-9 Depression Total Score: 9 01/28/20 24 2:36 PM EDT documented as of this encounter Care Teams Solderer Relationship Specialty Start Date End Date Mychal Fields MD [address] [place] [address] PCP - General Internal Medicine 04/30/14 Hima Fam FNP [address] [place] [address] Nurse Practitioner Family Medicine 08/01/23 documented as of this encounter
--- OUTSIDE RECORDS SUMMARY | 2024-11-05 18:01 | XMS_ITS | Encounter Summary ---
Author Organization [employer] Address [address] [place] [address] 7 [place] [address] Care Team Providers Care Relay Checker Name Role Phone Mychal Fields MD Primary Care Provide r Hima Fam Unavailable Unavailable Reason for Visit * Reason Onset Date Comments Med Refill 10/30/2024 Encounter Details Date Type Department Care Team ([facility] st Contact Info) Description 10/30/2024 Telephone [facility] MEDICINE 230 [place] [address] Mychal Fields MD [address] [place] [address] Med Refill Social History Tobacco Use Types Packs/Day Years [...] encounter Miscellaneous Notes * Telephone Encounter - Justyna Vela - 10/30/2024 12:15 PM EST Patient walked in requesting refill of medication: Clonazepam 1mg Ambien 10mg Patient says she doesn't have anymore since 09/13/2024. documented in this encounter Plan of Treatment Upcoming Encounters Date Type Department Care Team (Late st Contact Info) Description 12/23/2024 1:00 PM EDT Office Visit [facility] MEDICINE [address] [place] [address] Mychal Fields MD [address] [place] [address] documented as of this encounter Visit Diagnoses Not on filedocumented in this encounter Additional Health Concerns Assessment Noted Time PHQ-9 Depression Total Score: 6 09/16/19 25 10:06 AM EST documented as of this encounter Care Teams Relay Checker Relationship Specialty Start Date End Date Mychal Fields MD 230 [place] [address] PCP - General Internal Medicine 04/30/14 Hima Fam FNP [address] [place] [address] Nurse Practitioner Family Medicine 08/01/23 documented as of this encounter
--- OUTSIDE RECORDS SUMMARY | 2024-11-05 18:01 | XMS_ITS | Encounter Summary ---
Author Organization [employer] Address [address] [place] [address] 7t [place] [address] Care Team Providers Care Director [employer] Name Role Phone Mychal Fields MD Primary Care Provide r Hima Fam Unavailable Unavailable Reason for Visit * Reason Onset Date Comments Med Refill 10/30/2024 Encounter Details Date Type Department Care Team ([facility] st Contact Info) Description 10/30/2024 Refill [facility] MED & PEDS [address] [place] [address] Noemy Frye, ALAN [address] [place] [address] Anxiety and depression Social History Tobacco Use [...] Description 12/23/2024 1:00 PM EDT Office Visit [facility] MEDICINE [address] [place] [address] Mychal Fields MD [address] [place] [address] documented as of this encounter Visit Diagnoses Diagnosis Anxiety and depression documented in this encounter Additional Health Concerns Assessment Noted Time PHQ-9 Depression Total Score: 6 09/16/19 25 10:06 AM EST documented as of this encounter Care Teams Director [employer] Relationship Specialty Start Date End Date Mychal Fields MD [address] [place] [address] PCP - General Internal Medicine 04/30/14 Hima Fam FNP [address] [place] [address] Nurse Practitioner Family Medicine 08/01/23 documented as of this encounter
--- OUTSIDE RECORDS SUMMARY | 2024-11-05 18:01 | XMS_ITS | Encounter Summary ---
Author Organization [employer] Address [address] [place] [address] [address] [place] [address] Care Team Providers Care Molded Goods Inspector Trimmer Name Role Phone Mychal Fields MD Primary Care Provide r Hima Fam Unavailable Unavailable Reason for Visit * Reason Comments Med Refill Encounter Details Date Type Department Care Team ([facility] st Contact Info) Description 07/27/[address] [facility] MEDICINE [address] [place] [address] Mychal Fields MD [address] [place], [place] [phone] Social History Tobacco Use Types Packs/Day Years [...] PM EDT Office Visit [facility] MEDICINE [address] [place] [address] Mychal Fields MD [address] [place] [address] documented as of this encounter Visit Diagnoses Not on filedocumented in this encounter Additional Health Concerns Assessment Noted Time PHQ-9 Depression Total Score: 0 05/10/20 23 10:38 AM EDT documented as of this encounter Care Teams Molded Goods Inspector Trimmer Relationship Specialty Start Date End Date Mychal Fields MD [address] [place] [id number] PCP - General Internal Medicine 04/30/14 Hima Fam FNP [address] [place] [phone] Nurse Practitioner Family Medicine 08/01/23 documented as of this encounter
--- OUTSIDE RECORDS SUMMARY | 2024-11-05 18:01 | XMS_ITS | Encounter Summary ---
Author Organization [employer] Address [address] [place] [address] [address] [place] [address] Care Team Providers Care Mastic Man Name Role Phone Mychal Fields MD Primary Care Provide r Hima Fam Unavailable Unavailable Reason for Visit * Reason Comments Med Refill Encounter Details Date Type Department Care Team ([facility] st Contact Info) Description 07/27/2023 Refill [facility] MEDICINE [address] [place] [address] Mychal Fields MD [address] [place], [place] [phone] Social History Tobacco Use Types Packs/Day Years [...] 1:00 PM EDT Office Visit [facility] MEDICINE [address] [place] [address] Mychal Fields MD [address] [place] [address] documented as of this encounter Visit Diagnoses Not on filedocumented in this encounter Additional Health Concerns Assessment Noted Time PHQ-9 Depression Total Score: 0 05/10/20 23 10:38 AM EDT documented as of this encounter Care Teams Mastic Man Relationship Specialty Start Date End Date Mychal Fields MD [address] [place] [phone] PCP - General Internal Medicine 04/30/14 Hima Fam FNP [address] [place] [phone] Nurse Practitioner Family Medicine 08/01/23 documented as of this encounter
--- OUTSIDE RECORDS SUMMARY | 2024-11-05 18:01 | XMS_ITS | Encounter Summary ---
Author Organization [employer] Address [address] [place] [address] [address] [place] [address] Care Team Providers Care Cab Starter Name Role Phone Mychal Fields MD Primary Care Provide r Hima Fam Unavailable Unavailable Reason for Visit * Reason Comments Med Refill Encounter Details Date Type Department Care Team (Late st Contact Info) Description 10/06/2024 Refill [facility] MED & PEDS [address] [place] [address] Mychal Fields MD [address] [place] [address] Anxiety and depression Social History Tobacco Use [...] Description 12/23/2024 1:00 PM EDT Office Visit [facility] MEDICINE [address] [place] [address] Mychal Fields MD [address] [place] [address] documented as of this encounter Visit Diagnoses Diagnosis Anxiety and depression documented in this encounter Additional Health Concerns Assessment Noted Time PHQ-9 Depression Total Score: 6 09/16/19 25 10:06 AM EST documented as of this encounter Care Teams Cab Starter Relationship Specialty Start Date End Date Mychal Fields MD [address] [place] [phone] PCP - General Internal Medicine 04/30/14 Hima Fam FNP [address] [place] [phone] Nurse Practitioner Family Medicine 08/01/23 documented as of this encounter
--- OUTSIDE RECORDS SUMMARY | 2024-11-05 18:01 | XMS_ITS | Encounter Summary ---
Author Organization [employer] Address [address] [place] [address] [address] [place] [address] Care Team Providers Care Transformation Lead Name Role Phone Mychal Fields MD Primary Care Provide r Hima Fam Unavailable Unavailable Encounter Details Date Type Department Care Team (Late Contact Info) Description 06/11/2023 Orders Only [facility] MED & PEDS [address] [place], [place] [phone] Veda Isabel LPN Social History Tobacco Use [...] Description 12/23/2024 1:00 PM EDT Office Visit [facility] MEDICINE [address] [place], [place] [phone] Mychal Fields MD [address] [place], [place] [phone] documented as of this encounter Visit Diagnoses Not on filedocumented in this encounter Additional Health Concerns Assessment Noted Time PHQ-9 Depression Total Score: 0 05/10/20 23 10:38 AM EDT documented as of this encounter Care Teams Transformation Lead Relationship Specialty Start Date End Date Mychal Fields MD [address] [place] [address] PCP - General Internal Medicine 04/30/14 Hima Fam FNP [address] [place] [address] Nurse Practitioner Family Medicine 08/01/23 documented as of this encounter
--- OUTSIDE RECORDS SUMMARY | 2024-11-05 18:01 | XMS_ITS | Clinical Summary ---
Author Organization [email or web address] Address [address] [place] [address] 7 [place] [address] Care Team Providers Care Emission Technician Name Role Phone Mychal Fields MD [...] 2 (two) hours if needed. Active rizatriptan COMMUNITY CENTER DIRECTOR (Maxalt-COMMUNITY CENTER DIRECTOR) 5 MG disintegrating tablet PLEASE SEE ATTACHED FOR DETAILED DIRECTIONS Active amLODIPine (Norvasc) 10 MG tabletIndications :Essential hypertension TAKE 1 TABLET BY MOUTH EVERY DAY 90 tablet 024 Active cholecalciferol (D3) 50 MCG (1999 UT) tabletIndications :Low vitamin D level TAKE 1 TABLET BY MOUTH EVERY DAY 90 tablet 025 Active fluticasone (Flonase) 50 MCG/ACT nasal spray SHAKE BEFORE FIRST USE PRIME AFTER USE CLEAN TIP 1 SPRAY INTO EACH NOSTRIL TWICE A DAY 48 mL 025 Active clonazePAM (KlonoPIN) 1 MG tabletIndications :Anxiety and depression Take 1 tablet (1 mg) by mouth 3 times daily. 90 tablet 025 Active zolpidem (Ambien) 10 MG tabletIndications :Anxiety and depression Take 1 tablet (10 mg) by mouth if needed at bedtime for sleep. 30 tablet 025 Active fluticasone (Flonase) 50 MCG/ACT nasal spray SHAKE BEFORE FIRST USE PRIME AFTER USE CLEAN TIP 1 SPRAY INTO EACH NOSTRIL TWICE A DAY 48 mL 024 2024 Discontinued(R eorder (will not trigger notification to Pharmacy)) cholecalciferol (D3) 50 MCG (1999 UT) tabletIndications :Low vitamin D level TAKE 1 TABLET BY MOUTH EVERY DAY 90 tablet 024 2024 Discontinued zolpidem (Ambien) 10 MG tabletIndications :Anxiety and depression TAKE 1 TABLET BY MOUTH EVERY DAY AT BEDTIME NEEDED FOR SLEEP 30 tablet 025 2024 Discontinued(R eorder (will not trigger notification to Pharmacy)) clonazePAM (KlonoPIN) 1 MG tabletIndications :Anxiety and depression TAKE 1 TABLET (1 MG) BY MOUTH NEEDED IN THE MORNING AT AT NOON AND AT BEDTIME FOR ANXIETY 90 tablet 025 2024 Discontinued(R eorder (will not trigger notification to Pharmacy)) Active Problems Problem Noted Date Diagnosed Date [...] was evaluated by Dr. Wynn at our [facility] who recommended to check D dimer [...] We are trying to get her to [facility] before the lab and xray close but [...] she has completed thyroid ultrasound at [facility], notes not available at this time [...] EDT): Pelvis exam indicative of this Plan: [employer] referral Right foot pain 05/10/2023 Assessment & [...] tolerate NSAIDS Patient was eventually seen at [facility] neurology 04/04/2024. They recommended repeat brain MRI [...] with no good results, cannot tolerate NSAIDS [facility] neurology is not accepting new patients at the moment. Will try to refer to a different Neurologist perhaps at [facility] Assessment & Plan (01/17/2024 1:06 PM EDT): Patient with c/o recurrence of severe headaches, described as intensity 04/19 Not associated with any other symptoms, no [...] will also be referring to Neurology at [facility] Assessment & Plan (04/03/2023 1:22 PM EDT): Under the care of Dr Chad Acosta. Last seen on 04/20/2014 He started her on Amitriptyline 25 mg po qhs. and recommended a 6 month f/u. [facility] health care 10/19/2022 Assessment & Plan (09/16/2024 [...] recently retired Pt has a therapist at [facility] I recommended she speak with therapist about [...] necessary. For any issues or concerns, contact [facility]. All her questions were answered and [...] used to be under the care of home office claim specialist who had been prescribing Baclofen Assessment [...] used to be under the care of home office claim specialist who had been prescribing tramadol 100mg [...] without neural impingement. Pt was seen at [facility] 04/2023 and has a follow up [...] without neural impingement. Pt was seen at [facility] recently has a follow up recommended [...] neural impingement. [facility] Smoker 02/21/2012 Assessment & Plan (04/03/2023 1:41 PM EDT): Pt smoking 1 ppd. Poncegiovany has used it in the past with [...] 03/20/2024 0 09/16/2024 Stress incontinence 03/20/2024 09/16/19 25 Chronic headaches 03/20/2024 09/16/2024 Erosive gastritis 03/20/2024 [...] Encounters Date Type Department Care Team Description 10/30/2024 Refill [facility] [address] [place] [address] Noemy Frye RN Anxiety and depression 10/30/2024 Telephone [facility] [address] [place] [phone] Mychal Fields MD Med Refill 10/27/2024 Orders Only [facility] External Provider, [facility] 10/11/2024 Refill [facility] [address] [place] [phone] Mychal Fields MD 10/11/2024 Refill [facility] [address] [place] [phone] Bette Wynn MD Low vitamin D level 10/06/2024 1:15 PM EST Office Visit [facility] [address] [place] [address] Nabeel Magana MD Pre-op evaluation (Primary Dx) 10/06/2024 Refill [facility] [address] [place] [address] Mychal Fields MD Anxiety and depression 10/06/2024 Travel 10/03/2024 Telephone [facility] [address] [place] [phone] Mychal Fields MD December09/22/2024 Orders Only GENERIC EXTERNAL DATA DEPARTMENT Provider, Generic External Data 09/18/2024 Telephone [facility] [address] [place] [phone] Mychal Fields MD PRE OP 09/16/2024 10:00 AM EST Office Visit [address] [address] Mychal Fields MD JERRI (obstructive sleep apnea) (Primary Dx); Abnormal CT of the chest; Essential hypertension; Microscopic hematuria; Fibromyalgia; Subacute cough; Restrictive lung disease; Enlarged lymph nodes; Preventative health care 09/16/2024 Telephone [facility] [address] [place] [phone] Mychal Fields MD Appointment Request 09/16/2024 Orders Only GENERIC EXTERNAL DATA DEPARTMENT Provider, Generic External Data 09/16/2024 Telephone [facility] [address] [place] [phone] Mychal Fields MD Appointment Request 09/16/2024 Travel 09/11/2024 Refill [facility] [address], [place] [phone] Claudette Nassar MD Anxiety and depression 09/04/[address] [address] Mychal Fields MD Chart Prep 08/25/[address] [address] Toño Lim [place] Lab order D-Dimer STAT 08/15/[address] [address] Margarita Reagan RN Lab Orders (STAT D-Dimer) 08/12/2024 Refill [facility] [address], [place] [phone] Mychal Fields MD Anxiety and depression 08/11/2024 Refill [facility] [address] [place] [phone] Cinthya Dover ANP Essential hypertension 08/05/2024 5:20 PM EST Office Visit [facility] [address] [place] [phone] Bette Wynn MD Cough in adult patient (Primary Dx) 08/05/2024 Orders Only GENERIC EXTERNAL DATA DEPARTMENT Provider, Generic External Data 08/05/2024 Travel 08/05/[address] [address] Mychal Fields MD Nurse Triage from Last [...] Office Visit [facility] [address] [place] [address] Mychal Fields MD [address] [place] [address] Health Maintenance Due Date Last Done Comments [...] 06/17/2025 06/17/2020 Depression Screening 09/16/2025 09/16/2024, 09/16/19 Tobacco Screening 10/06/2025 10/06/2024 Mammogram 10/29/2026 10/29/2024, 09/10, 12/17/2018 Colonoscopy 08/30/2027 08/30/2022 Colorectal Cancer Screening 08/30/2027 [...] 5:30 PM EST Cough in adult patient HPV MRNA E6/E7 REFLEX TO HPV 16, 18/45 Routine 08/23/2023 2:22 PM EST PAP SMEAR Routine 08/23/2023 2:22 PM EST Postmenopausal bleeding Cervical cancer screening HM COLONOSCOPY Routine 08/30/2022 LIPID PANEL, STANDARD Routine 06/17/2020 3:00 PM EDT from Last 3 Months or Most Recently Relevant to Health Maintenance Results * BI Mammogram Screening Tomosynthesis Bilateral (10/29/2024 12:58 PM EST) Anatomical Region Laterality Modality Breast Bilateral Mammography 10/29/2024 12:5 8 PM EST Narrative 11/04/2024 12:41 PM EST ? [facility] ? [address] [facility] ?[place] [address] ? Mammography Report ? Signed ? Patient: Clark,Elaine ?MR#: [id number] ? : 1970 ?Acct:[id number] ? Age/Sex: 53 / F ?ADM Date: 02/19/25 ? Loc: HO.MAMMO ? Attending Dr: Mychal Long MD ? Ordering Physician: Syed Coreas MD ?Results: 1Negativ ?? e ? Date of Service: 10/29/24 ?Follow Up: 1 Year From Orig ?? inal Mammogram ? Procedure(s): MM tomosynthesis screening BI ?? Accession Number(s): [id number] ? cc: Mychal Long MD; Syed Coreas [...] DD/ 1258 ? TD/TT: 10/29/24 1315 ? Lap Winding Machine Operator: ? Procedure Note Donotuseinterpreter, Image - 11/04/2024 [place] [facility] [address] [place] [address] [place] [address] Mammography Report Signed Patient: Elaine RodasMR#: [id number] : 1970Acct:[id number] Age/Sex: 53 / FADM Date: 10/29/24 Loc: HO.MAMMO Attending Dr: Mychal Long MD Ordering Physician: Syed Coreasesults: 1Negativ e Date of Service: 10/29/24Follow Up: 1 Year From Orig inal Mammogram Procedure(s): MM tomosynthesis screening BI Accession Number(s): [id number] cc: Mychal Long MD; Syed Coreas MD [...] Shayy Connor DO 11/04/2024 12:38 PM EST Dictated By: Shayy Connor DO Signed By: <Electronically signed by Shayy Connor DO in OV> 11/04/24 1238 DD/ 1258 TD/TT: 10/29/24 1315 Lap Winding Machine Operator: us [facility] External Provider IMG BI PROCEDURES Final Result * CT Abdomen Pelvis w/o Contrast (10/27/2024 3:13 AM EST) Anatomical Region Laterality Modality Body, Pelvis, Abdomen Computed T omography 10/27/2024 3:13 AM EST Narrative 10/27/2024 3:15 AM EST ? [facility] ?[address] ?[place], [place] [address] ? CT Scan Report ? Signed ? Patient: Elaine Rodas ?MR#: [id number] ? : 1970 ?Acct:[id number] ? Age/Sex: 53 / F ?ADM Date: 10/27/24 ? Loc: HO.ED ? Attending Dr: ? Ordering Physician: Jaime Parker MD ?? Date of Service: 10/27/24 ?? Procedure(s): CT abdomen pelvis wo IV con ?? Accession Number(s): [id number] ? cc: [facility]; Jaime Parker MD ? Report Number: ?? [id number]: Total DLP = ??740.00 mGy-cm ? CLINICAL [...] bones are intact. ? IMPRESSION: ?? 1. Gzrx-pc-hyghrqrq edema identified within the small bowel mesentery, [...] in OV> ? 10/27/24 0314 ? DD/ 0313 ? TD/TT: 10/27/24312 ? Lap Winding Machine Operator: ? Procedure Note Donotuseinterpreter, Image - 10/27/[address] [place] [address] [address] Scan Report Signed Patient: Elaine RodasMR#: [id number] : 1970Acct:[id number] Age/Sex: 53 / FADM Date: 10/27/24 Loc: HO.ED Attending Dr: Ordering Physician: Jaime Parker MD Date of Service: 10/27/24 Procedure(s): CT abdomen pelvis wo IV con Accession Number(s): [id number] cc: [facility]; Jaime Parker MD Report Number: [id number]: Total DLP = 740.00 mGy-cm CLINICAL HISTORY: [...] appendix. The bones are intact. IMPRESSION: 1. Xupx-zw-hpquuxyf edema identified within the small bowel mesentery, [...] MD in OV> 10/27/24313 DD/ 2 TD/TT: 02/17/25 0313 Lap Winding Machine Operator: us [facility] External Provider IMG CT PROCEDURES Final Result * XR Knee 4+ Views Right (09/22/2024 12:50 PM EST) Anatomical Region Laterality Modality Lower Extremities, Knee Right Radiogra phic Imaging 09/22/2024 12:5 0 PM EST Narrative 09/24/2024 9:59 AM EST ? [facility] ?[address] ?[place] [address] ?XRay Report ? Signed ? Patient: Elaine Rodas ?MR#: [id number] ? : 1970 ?Acct:[id number] ? Age/Sex: 53 / F ?ADM Date: 09/22/24 ? Loc: HO.XRAY ? Attending Dr: Syed Coreas MD ? Ordering Physician: Brigid eWst MD ?? Date of Service: 09/22/24 ?? Procedure(s): XR knee RT 4V ?? Accession Number(s): [id number] ? cc: Brigid West MD; Mychal Long [...] Clair, MD in OV> ?09/24/24 0956 ? DD/ 1250 ? TD/TT: 09/22/24 1312 ? Lap Winding Machine Operator: MSM ? Procedure Note Nishi, Image - 09/24/[address] [address] XRay Report Signed Patient: Elaine RodasMR#: [id number] : 1970Acct:[id number] Age/Sex: 53 / FADM Date: 09/22/24 Loc: HO.XRAY Attending Dr: Syed Coreas MD Ordering Physician: Brigid West MD Date of Service: 09/22/24 Procedure(s): XR knee RT 4V Accession Number(s): [id number] cc: Brigid West MD; Mychal Long MD [...] 09/24/24 0956 DD/ 1250 TD/TT: 09/22/24 1312 Lap Winding Machine Operator: GARY us [facility] External Provider IMG XR PROCEDURES Final Result * XR Knee 4+ Views Left (09/22/2024 12:50 PM EST) Anatomical Region Laterality Modality Lower Extremities, Knee Left Radiogra phic Imaging 09/22/2024 12:5 0 PM EST Narrative 09/24/2024 10:01 AM EST ? [facility] ?[address] ?[place] [address] ?XRay Report ? Signed ? Patient: Clark,Elaine ?MR#: [id number] ? : 1970 ?Acct:[id number] ? Age/Sex: 53 / F ?ADM Date: 09/22/24 ? Loc: HO.XRAY ? Attending Dr: Syed Coreas MD ? Ordering Physician: Brigid West MD ?? Date of Service: 09/22/24 ?? Procedure(s): XR knee LT 4V ?? Accession Number(s): [id number] ? cc: Brigid West MD; Mychal Long [...] DD/ 1250 ? TD/TT: 09/22/24 1312 ? Lap Winding Machine Operator: MSM ? Procedure Note Nishi, Yas - 09/24/[address] [address] XRay Report Signed Patient: Elaine RodasMR#: [id number] : 1970Acct:[id number] Age/Sex: 53 / FADM Date: 09/22/24 Loc: HO.XRAY Attending Dr: Syed Coreas MD Ordering Physician: Brigid West MD Date of Service: 09/22/24 Procedure(s): XR knee LT 4V Accession Number(s): [id number] cc: Brigid West MD; Mychal Long MD [...] 09/24/24 0959 DD/ 1250 TD/TT: 09/22/24 1312 Lap Winding Machine Operator: [facility] External Provider IMG XR PROCEDURES Final Result * XR Chest 2 Views (09/22/2024 12:50 PM EST) Anatomical Region Laterality Modality Chest Radiographic Hilda ging 09/22/2024 12:5 0 PM EST Narrative 09/24/2024 10:02 AM EST ? [facility] ?[address] ?[place] [address] ?XRay Report ? Signed ? Patient: Clark,Elaine ?MR#: [id number] ? : 1970 ?Acct:[id number] ? Age/Sex: 53 / F ?ADM Date: /13/25 ? Loc: HO.XRAY ? Attending Dr: Syed Coreas MD ? Ordering Physician: Mychal Long MD ?? Date of Service: 09/22/24 ?? Procedure(s): XR chest 2V ?? Accession Number(s): [id number] ? cc: Mychal Long MD ? EXAMINATION: [...] DD/ 1250 ? TD/TT: 09/22/24 1312 ? Lap Winding Machine Operator: MSM ? Procedure Note Nishi, Image - 09/24/2024 [place] [address] XRay Report Signed Patient: Sebas Rodas#: [id number] : 1970Acct:[id number] Age/Sex: 53 / FADM Date: 09/22/24 Loc: [facility] Attending Dr: Seyd Coreas MD Ordering Physician: Mychal Long MD Date of Service: 09/22/24 Procedure(s): XR chest 2V Accession Number(s): [id number] cc: Mychal Long MD EXAMINATION: XR CHEST CLINICAL INFORMATION: cough COMPARISON: None available. TECHNIQUE: 2 views of the chest were obtained. FINDINGS: No significant abnormality is noted involving the heart, lungs, mediastinum, bony thorax or soft tissues. XR/XR chest 2V IMPRESSION: Unremarkable examination. Electronically signed by: Chidi Self MD 09/24/2024 09:59 AM EST RP Dictated By: Chidi Self MD Signed By: <Electronically signed by Chidi Self MD in OV> 09/24/24 0959 DD/ 1250 TD/TT: 09/22/24 1312 Lap Winding Machine Operator: GARY us Mychal Morris MD IMG XR PROCEDURES Fin al Result * Syphilis Screen (09/22/2024 12:35 PM EST) Syphilis Screen Nonreactive Nonreactive [facility] 09/22/2024 12:3 5 PM EST 09/22/2024 12:35 PM EST Generic External Data Provider LAB BLOOD ORDERAB LES Final Result Performing Organization Address [facility] Co de Phone Number [facility] [address] [place] [phone] * Hepatitis C Ab (09/22/2024 12:35 PM EST) Hepatitis C Antibody Nonreactive Nonreactive [facility] Comment:Antibodies to HCV no t detected; does not exclude early acuteHCV infection. 09/22/2024 12:3 5 PM EST 09/22/2024 12:35 PM EST Generic External Data Provider LAB BLOOD ORDERAB LES Final Result Performing Organization Address City/[facility] Co de Phone Number [facility] [address] [place] [phone] * Creatinine, Serum (09/22/2024 12:35 PM EST) Only the most recent of2 resultswithin the time period is included. Creatinine, Serum 0.89 0.5 - 1.4 mg/dL [facility] Estimated Glomerular Filt Rate >60 [facility] Comment:Chronic Kidney Disea se: Estimated GFR < 60 mL/min/1.74w9Limrld Kidney Disease: Estimated GFR < 15 mL/min/1.73m2 09/22/2024 12:3 5 PM EST 09/22/2024 12:35 PM EST Generic External Data Provider LAB BLOOD ORDERAB LES Final Result Performing Organization Address City/[facility]/ZIP Co de Phone Number [facility] [address] [place] [phone] * Hepatitis B surface antigen, EIA (09/22/2024 12:35 PM EST) Hepatitis B Surface Ag Negative Negative [facility] 09/22/2024 12:3 5 PM EST 09/22/2024 12:35 PM EST Generic External Data Provider LAB BLOOD ORDERAB LES Final Result Performing Organization Address [facility] Phone Number [facility] [address] [place] [phone] * HIV-1/2 Antigen and Antibodies, Fourth Generation, with Reflexes (09/22/2024 12:35 PM EST) HIV AB/AG Nonreactive Nonreactive [facility] Comment:HIV-1 p24 Ag and/or HIV-1/HIV-2 Ab not detected.A test result that is nonreactive does not exclude thepossibility of exposure to or infection with HIV-1 and/orHIV-2. Nonreactive results in this assay for individualswith prior exposure to HIV-1 and/or HIV-2 may be due toantigen and antibody levels that are below the limit ofdetection of this assay.The Survata HIV Ag/Ab Combo assay result andsupplemental assay results should be interpreted inconjunction with the patient's clinical presentation,history and other laboratory results. If the results areinconsistent with clinical evidence, additional testing issuggested to confirm the result. 09/22/2024 12:3 5 PM EST 09/22/2024 12:35 PM EST us Generic External Data Provider LAB BLOOD ORDERAB LES Final Result Performing Organization Address [facility]/ZIP Co de Phone Number [facility] [address] [place] [phone] * BUN (Blood Urea Nitrogen) (09/22/2024 12:35 PM EST) Only the most recent of2 resultswithin the time period is included. [facility] Urea Nitrogen (BUN) 13 9 - 16 mg/dL [facility] 09/22/2024 12:3 5 PM EST 09/22/2024 12:35 PM EST us Generic External Data Provider LAB BLOOD ORDERAB LES Final Result Performing Organization Address [facility] Phone Number [facility] [address] [place] [phone] * D Dimer High Sensitivity (09/16/2024 11:09 AM EST) [facility] D Dimer High Sensitivity 203 NG/ML [facility] Comment:D-DIMER HS REFERENCE RANGENote: Our [...] BLOOD ORDERABLES Final Result Performing Organization Address [facility] Co de Phone Number [facility] [address] [place] [phone] * High Sensitivity Troponin I (08/05/2024 6:21 PM EST) [facility] TROPONIN I HIGH SENSITIVITY <2.7 <3.5 - 17.0 ng/L [facility] Comment:The Hernandez high sens itivity Troponin-I results should beused in conjunction with other diagnostic information suchas ECG, clinical observations and information, and patientsymptoms to aid in the diagnosis of [place]. 08/05/2024 6:21 PM EST 08/05/2024 6:24 PM EST us Generic External Data Provider LAB BLOOD ORDERAB LES Final Result [facility] [address] [place] [phone] * (ABNORMAL) CBC auto differential (08/05/2024 6:21 PM EST) White Blood Count 8.2 4.8 - 10.8 X10*3/uL [facility] Red Blood Count 4.26 4.20 - 5.50 X10*6/uL [facility] Hemoglobin 12.5 12.0 - 16.0 g/dl [facility] Hematocrit 37.0 37.0 - 47.0 % [facility] Mean Corpuscular Volume 86.9 80.0 - 98.0 fL [facility] Mean Corpuscular Hemoglobin 29.3 27.0 - 33.0 pg [facility] Mean Corpuscular HGB Conc 33.8 31.0 - 35.0 g/dl [facility] Red Cell Distribution Width 12.9 11.0 - 16.0 % [facility] Platelet Count 269 160 - 400 X10*3/uL [facility] Mean Platelet Volume 9.6 9.4 - 12.3 fL [facility] Neutrophils Percent Auto 47.3 45 - 73 % [facility] Imm Gran Pct Auto 0.2 0.0 - 0.4 % [facility] Lymphocytes Percent Auto 45.0(H) 20 - 40 % [facility] Monocytes Percent Auto 4.5 2 - 11 % [facility] Eosinophils Percent Auto 2.3 0 - 4 % [facility] Basophils Percent Auto 0.7 0 - 2 % [facility] NRBC Pct Auto 0.0 0.0 - 0.2 /100WBC [facility] Neutrophils Absolute Auto 3.9 2.0 - 8.3 x10*3/uL [facility] Imm Gran Abs Auto 0.02 0.00 - 0.03 X10*3/uL [facility] Lymphocytes Absolute Auto 3.7 1.2 - 4.9 X10*3/uL [facility] Monocytes Absolute Auto 0.4 0.1 - 1.2 X10*3/uL [facility] Eosinophils Absolute Auto 0.2 0.0 - 0.4 X10*3/uL [facility] Basophils Absolute Auto 0.1 0.0 - 0.2 X10*3/uL [facility] NRBC Abs Auto 0.000 0.0 - 0.012 X10*3/uL [facility] 08/05/2024 6:21 PM EST 08/05/2024 6:24 PM EST us Generic External Data Provider LAB BLOOD ORDERAB LES Final Result Performing Organization Address City/State/[facility] Co de Phone Number [facility] [address] [place] [phone] * Prothrombin Time-INR (08/05/2024 6:21 PM EST) Prothrombin Time 10.9 10.9 - 12.4 SEC [facility] INTERNATIONAL NORM RATIO 0.9 0.9 - 1.1 [facility] Comment:INTERNATIONAL NORMAL IZED RATIO (INR) [...] Provider LAB BLOOD ORDERAB LES Final Result [facility] [address] [place] [phone] * (ABNORMAL) Comprehensive Metabolic Panel (08/05/2024 6:21 PM EST) Sodium 139 135 - 145 mmol/L [facility] Potassium 3.9 3.3 - 5.1 mmol/L [facility] Chloride 105 96 - 108 mmol/L [facility] Carbon Dioxide 29 22 - 29 mmol/L [facility] Anion Gap 9(L) 12 - 20 [facility] Urea Nitrogen (BUN) 11 9 - 16 mg/dL [facility] Creatinine, Serum 0.86 0.5 - 1.4 mg/dL [facility] Creatinine Clr Calc Pharmacy 88.6 [facility] Comment:Provided height and weight: 167.64 cm,96.5 kg.eGFR (calculated from the MDRD study equation) and eCrCl(calculated from the Cockcroft-Gault equation) are based ondifferent parameters and may not yield comparable results.If eCrCl result is absurd, please check patient'sheight/weight. Estimated Glomerular Filt Rate >60 [facility] Comment:Chronic Kidney Disea se: Estimated GFR < 60 mL/min/1.89k1Mxujxz Kidney Disease: Estimated GFR < 15 mL/min/1.73m2 Glucose 98 60 - 115 mg/dL [facility] Calcium 9.3 8.4 - 10.2 mg/dL [facility] Bilirubin, Total 0.2 0.0 - 1.0 mg/dL [facility] Aspartate Amino Transferase 17 5 - 31 U/L [facility] Alanine Aminotransferase 14 0 - 31 U/L [facility] Total Protein 7.6 6.5 - 8.0 g/dL [facility] Albumin Level 3.9 3.5 - 5.0 g/dL [facility] Alkaline Phosphatase 114 39 - 117 U/L [facility] 08/05/2024 6:21 PM EST 08/05/2024 6:24 PM EST Generic External Data Provider LAB BLOOD ORDERAB LES Final Result Performing Organization Address [facility] Co de Phone Number [facility] [address] [place] [phone] * POCT Rapid COVID-19 Binax NOW (08/05/2024 5:31 PM EST) Pathologist [facility] Rapid COVID Ag Negative QC Media Lot # [id number] Lot# Expiration Date Swab 08/05/2024 5:31 PM EST Bette Wynn MD POINT OF CARE TEST ENTER/E DIT ORDERABLES Final Result * POCT Rapid Influenza B HERNANDEZ ID NOW (08/05/2024 5:30 PM EST) [facility] Influenza B Negative Negative, Indeterminate [facility] QC Media Lot # [id number] [facility] Lot# Expiration Date [facility] Swab 08/05/2024 5:30 PM EST Result [facility] Bette Wynn MD POINT OF CARE TEST ENTER/E DIT ORDERABLES Final Result Performing Organization Address City/[facility]/ZIP Co de Phone Number [facility] [address] [place] [phone] * POCT Rapid Influenza A HERNANDEZ ID NOW (08/05/2024 5:30 PM EST) [facility] Influenza A Negative Negative, Indeterminate [facility] QC Media Lot # [id number] [facility] Lot# Expiration Date [facility] Swab 08/05/2024 5:30 PM EST Bette Wynn MD POINT OF CARE TEST ENTER/E DIT ORDERABLES Final Result Performing Organization Address [facility]/ZIP Co de Phone Number [facility] [address] [place] [address] [phone] * HPV mRNA E6/E7 w/Reflex to HPV Genotypes 16, 18/45 (08/23/2023 2:22 PM EST) HPV nRNA E6/E7 Not Detected Not Detected [facility] Comment:Methodology: Transcr iption-Mediated AmplificationThis assay detects E6/E7 viral messenger RNA (mRNA) from 14high-risk HPV types (16,18,31,33,35,39,45,51,52,56,58,59,66,68).Cervical sources are required for HPV testing.If a vaginal source from a patient who has had atotal hysterectomy with removal of cervix wassubmitted, please contact the testing laboratoryfor alternative testing options.For additional information, please refer tohttp://education.Tour Desk/faq/ZPS354z3(This link if provided for information/educational purposes only.)THIS TEST WAS PERFORMED AT:[facility] [place] [id number] PRESSLEY MD HPV mRNA E6/E7 [facility] HPV 16 RNA [facility] HPV 18/45 RNA [facility] 08/23/2023 2:22 PM EST 08/24/2023 9:35 AM EST Cecily [facility] CYTOLOGY ORDERABLES F inal Result Performing Organization Address City/[facility]/ZIP Co de Phone Number [facility] [address] [place] [address] [phone] * Pap Smear (08/23/2023 2:22 PM EST) Swab Cervix uteri structure / Unknown 08/23/2023 2:22 PM EST 08/24/2023 9:35 AM EST Narrative [facility] - 09/04/2023 1:23 PM EST ----- ------- Name: Elaine Rodas ?Age/Sex: 52/F ? : 1970 Unit#: [id number] ?? Attend : ?Re08/23/23 ?Status: PRE REF ? Location: HO.LNP ?Disch: ? ----- ------- SPEC : [id number] ?RECD: 08/24/23 ? STATUS: ??SOUT ? REQ NUM: [id number] ? CHAPIN: 08/23/23 ? SUBM DR: CECILY SCHWAB CNM ? ENTERED: ??08/24/23265 ?SP TYPE: Pap Smr ?OTHR : ? [...] 66, 68) ?? HPV testing performed by [facility], [place], [place]. ??See reference laboratory ?? portion of the EMR for entire report. ?Clinical Information LMP: Postmenopausal Previous PAP test: Unknown date/findings Other history: Abnormal bleeding ? Material Received ?? ThinPrep-Cervical ----- ------- Signed (signature on file) NATHAN Medrano (ASCP) 09/04/23 1323 ? ----- ------- ? END OF REPORT ? Cecily Schwab CNM LAB CYTOLOGY ORDERABLES F inal Result [facility] [address] [place] [address] [phone] * Hm Colonoscopy (08/30/2022) Colonoscopy Normal Normal Historical Provider MD HEALTH MAINTENANCE Final Result * (ABNORMAL) LIPID [...] ?? Mina MARRERO et al. ASHUTOSH. 2013;310(19): 8196-1915 ?? (http://[employer].Baccarat/faq/HXQ526) Chol/HDLC Ratio 3.4 <5.0 (calc) [facility] 06/17/2020 3:00 PM EDT Mychal Morris MD LAB BLOOD ORDERABLES Final Result [facility] [address] from Last 3 Months or Most Recently Relevant to Health Maintenance Insurance Piehole C3 Care Teams Emission Technician Relationship Specialty Start Date End Date Mychal Fields MD [address] [place] [address] PCP - General Internal Medicine 04/30/14 Hima Fam FNP [address] [place] [address] Nurse Practitioner Family Medicine 08/01/23
== END 2024-11-05 15:13 | disposition home or self-care (01) ==
LOC: HO.HWS 14:36
PROVIDERS: PCP Internal Medicine; Visit Provider Obstetrics & Gynecology
DX: A60.00 Herpesviral infection of urogenital system, unspecified (principal)
CPT/HCPCS: 99213

== ENCOUNTER 2024-11-05 14:36 | Outpatient (REF) | payer MEDICAID, SELFPAY ==
--- OUTSIDE RECORDS SUMMARY | 2024-11-05 18:45 | XMS_ITS | Encounter Summary ---
Author Organization [employer] Address [address] [place] [address] 7t [place] [address] Care Team Providers Care Basting Cleaner Name Role Phone Mychal Fields MD Primary Care Provide r Hima Fam Unavailable Unavailable Reason for Visit * Reason Comments Med Refill Encounter Details Date Type Department Care Team (Late st Contact Info) Description 10/06/2024 Refill [facility] [address] [place] [address] Mychal Fields MD [address] [place] [address] Anxiety and depression Social History Tobacco Use [...] your housing situation today? I have geefaisal stalye 05/15/[address] you li [...] Description 12/23/2024 1:00 PM EDT Office Visit [facility] [address] [place] [address] Mychal Fields MD [address] [place] [address] documented as of this encounter Visit Diagnoses Diagnosis Anxiety and depression documented in this encounter Additional Health Concerns Assessment Noted Time PHQ-9 Depression Total Score: 6 09/16/19 25 10:06 AM EST documented as of this encounter Care Teams Basting Cleaner Relationship Specialty Start Date End Date Mychal Fields MD [address] [place] [address] PCP - General Internal Medicine 04/30/14 Hmia Fam FNP [address] [place] [address] Nurse Practitioner Family Medicine 08/01/23 documented as of this encounter
--- OUTSIDE RECORDS SUMMARY | 2024-11-05 18:45 | XMS_ITS | Encounter Summary ---
Author Organization [employer] Address [address] [place] [address] 7t [place] [address] Care Team Providers Care Sample Dye Mixer Name Role Phone Mychal Fields MD Primary Care Provide r Hima Fam Unavailable Unavailable Reason for Visit * Reason Comments Med Refill Encounter Details Date Type Department Care Team (Late st Contact Info) Description 10/11/2024 Refill [facility] [address] [place] [address] Bette Wynn MD [address] [place] [address] Low vitamin D level Social History Tobacco [...] Description 12/23/2024 1:00 PM EDT Office Visit [facility] [address] [place] [address] Mychal Fields MD [address] [place] [address] documented as of this encounter Visit Diagnoses Diagnosis Low vitamin D level documented in this encounter Additional Health Concerns Assessment Noted Time PHQ-9 Depression Total Score: 6 09/16/19 25 10:06 AM EST documented as of this encounter Care Teams Sample Dye Mixer Relationship Specialty Start Date End Date Mychal Fields MD [address] [place] [address] PCP - General Internal Medicine 04/30/14 Hima Fam FNP [address] [place] [address] Nurse Practitioner Family Medicine 08/01/23 documented as of this encounter
--- OUTSIDE RECORDS SUMMARY | 2024-11-05 18:45 | XMS_ITS | Encounter Summary ---
Author Organization [employer] Address [address] [place] [address] 7 [place] [address] Care Team Providers Care Commercial Marketing Specialist Name Role Phone Mychal Fields MD Primary Care Provide r Hima Fam Unavailable Unavailable Reason for Visit * Reason Comments Med Refill Encounter Details Date Type Department Care Team ([facility] st Contact Info) Description 10/11/2024 Refill [facility] [address] [place] [address] Mychal Fields MD [address] [place], [place] [phone] Social History Tobacco Use Types Packs/Day Years [...] 12/23/2024 1:00 PM EDT Office Visit [facility] [address] [place] [address] Mychal Fields MD [address] [place] [address] documented as of this encounter Visit Diagnoses Not on filedocumented in this encounter Additional Health Concerns Assessment Noted Time PHQ-9 Depression Total Score: 6 09/16/19 25 10:06 AM EST documented as of this encounter Care Teams Commercial Marketing Specialist Relationship Specialty Start Date End Date Mychal Fields MD [address] [place] [address] PCP - General Internal Medicine 04/30/14 Hima Fam FNP [address] [place] [address] Nurse Practitioner Family Medicine 08/01/23 documented as of this encounter
--- OUTSIDE RECORDS SUMMARY | 2024-11-05 18:45 | XMS_ITS | Encounter Summary ---
Author Organization [employer] Address [address] [place] [address] 7t [place] [address] Care Team Providers Care Mainspring Former Arbor End Name Role Phone Mychal Fields MD Primary Care Provide r Hima Fam Unavailable Unavailable Encounter Details Date Type Department Care Team (Late st Contact Info) Description 12/05/2022 Orders Only [facility] [address] [place], [place] [phone] Veda Isabel LPN Social History Tobacco Use [...] 1:00 PM EDT Office Visit [facility] [address] [place], [place] [phone] Mychal Fields MD [address] [place], [place] [phone] documented as of this encounter Visit Diagnoses Not on filedocumented in this encounter Additional Health Concerns Assessment Noted Time PHQ-9 Depression Total Score: 7 10/09/19 23 4:00 PM EST documented as of this encounter Care Teams Mainspring Former Arbor End Relationship Specialty Start Date End Date Mychal iFelds MD [address] [place] [address] PCP - General Internal Medicine 04/30/14 Hima Fam FNP [address] [place] [address] Nurse Practitioner Family Medicine 08/01/23 documented as of this encounter
--- OUTSIDE RECORDS SUMMARY | 2024-11-05 18:45 | XMS_ITS | Encounter Summary ---
Author Organization [employer] Address [address] [place] [address] [place] [address] Care Team Providers Care Rip Tailer Name Role Phone Mychal Fields MD Primary Care Provide r Hima Fam Unavailable Unavailable Reason for Visit * Reason Comments Pre-op Exam Date of Surgery: 08/04Surgical procedure being done: Cataracts right ey Encounter Details Date Type Department Care Team (Late st Contact Info) Description 10/06/2024 1:15 PM EST Office Visit [facility] [address] [place] [address] Nabeel Magana MD [address] [place] [address] Pre-op evaluation (Primary Dx) Social History Tobacco [...] documented in this encounter Progress Notes * Nbaeel Magana MD - 10/06/2024 1:15 PM EST [...] AN EMPTY STOMACH 180 tablet 0 rizatriptan CNC OPERATOR PROGRAMMER (Maxalt-CNC OPERATOR PROGRAMMER) 5 MG disintegrating tablet PLEASE SEE ATTACHED [...] [facility] [address] [place] [address] Mychal Fields MD [address] [place] [address] documented as of this encounter Visit Diagnoses Diagnosis Pre-op evaluation- Primary documented in this encounter Additional Health Concerns Assessment Noted Time PHQ-9 Depression Total Score: 6 09/16/19 25 10:06 AM EST documented as of this encounter Care Teams Rip Tailer Relationship Specialty Start Date End Date Mychal Fields MD [address] [place] [address] PCP - General Internal Medicine 04/30/14 Hima Fam FNP [address] [place] [address] Nurse Practitioner Family Medicine 08/01/23 documented as of this encounter
--- OUTSIDE RECORDS SUMMARY | 2024-11-05 18:45 | XMS_ITS | Encounter Summary ---
Author Organization [employer] Address [address] [place] [address] 7 [place] [address] Care Team Providers Care Butcher Assistant Name Role Phone Mychla Fields MD Primary Care Provide r Hima Fam Unavailable Unavailable Reason for Visit * Reason Comments Med Refill Encounter Details Date Type Department Care Team (Late Contact Info) Description 10/05/2022 Refill [facility] [address] [place] [address] Hima Fam FNP Anxiety state Social History [...] Description 12/23/2024 1:00 PM EDT Office Visit [facility] [address] [place], [place] [phone] Mychal Fields MD [address] [place] [address] documented as of this encounter Visit Diagnoses Diagnosis Anxiety state Anxiety state, unspecified documented in this encounter Care Teams Butcher Assistant Relationship Specialty Start Date End Date Mychal [place] [address] PCP - General Internal Medicine 04/30/14 Hima Fam FNP [address] [place] [address] [place] [address] Nurse Practitioner Family Medicine 08/01/23 documented as of this encounter
--- OUTSIDE RECORDS SUMMARY | 2024-11-05 18:45 | XMS_ITS | Encounter Summary ---
Author Organization [employer] Address [address] [place] [address] [place] [address] Care Team Providers Care Public Relations Representative Name Role Phone Mychal Fields MD Primary Care Provide r Hima Fam Unavailable Unavailable Reason for Visit * Reason Comments Med Change Request Encounter Details Date Type Department Care Team (Late st Contact Info) Description 10/19/2022 Refill [facility] [address] [place] [address] Mychal Fields MD [address] [place] [address] [phone] Fibromyalgia Social History Tobacco Use Types Packs/Day [...] Description 12/23/2024 1:00 PM EDT Office Visit [facility] [address] [place] [address] [phone] Mychal Fields MD [address] [place] [address] [phone] documented as of this encounter Visit Diagnoses Diagnosis Fibromyalgia Unspecified myalgia and myositis documented in this encounter Additional Health Concerns Assessment Noted Time PHQ-9 Depression Total Score: 7 10/09/19 23 4:00 PM EST documented as of this encounter Care Teams Public Relations Representative Relationship Specialty Start Date End Date Mychal Fields MD [address] [place] [address] PCP - General Internal Medicine 04/30/14 Hima Fam FNP [address] [place] [address] Nurse Practitioner Family Medicine 08/01/23 documented as of this encounter
--- OUTSIDE RECORDS SUMMARY | 2024-11-05 18:45 | XMS_ITS | Encounter Summary ---
Author Organization [employer] Address [address] [facility] 7t [place] [address] Care Team Providers Care Packing Attendant Name Role Phone Mychal Fields MD [...] Description 12/23/2024 1:00 PM EDT Office Visit [facility] [address] [place] [address] Mychal Fields MD [address] [place] [address] documented as of this encounter Visit Diagnoses Not on filedocumented in this encounter Additional Health Concerns Assessment Noted Time PHQ-9 Depression Total Score: 6 09/16/19 25 10:06 AM EST documented as of this encounter Care Teams Packing Attendant Relationship Specialty Start Date End Date Mychal Fields MD [address] [place] [address] PCP - General Internal Medicine 04/30/14 Hima Fam FNP [address] [place] [address] Nurse Practitioner Family Medicine 08/01/23 documented as of this encounter
--- OUTSIDE RECORDS SUMMARY | 2024-11-05 18:45 | XMS_ITS | Encounter Summary ---
Author Organization [employer] Address [address] [place] [address] 7t [place] [address] Care Team Providers Care Lgsw Name Role Phone Mychal Fields MD Primary Care Provide r Hima Fam Unavailable Unavailable Reason for Visit * Reason Comments Med Refill Encounter Details Date Type Department Care Team ([facility] st Contact Info) Description 07/27/2023 Refill [facility] [address] [place] [address] Mychal Fields MD [address] [place], [place] [phone] Social History Tobacco Use Types Packs/Day Years [...] Description 12/23/2024 1:00 PM EDT Office Visit [facility] [address] [place] [address] Mychal Fields MD [address] [place] [address] documented as of this encounter Visit Diagnoses Not on filedocumented in this encounter Additional Health Concerns Assessment Noted Time PHQ-9 Depression Total Score: 0 05/10/20 23 10:38 AM EDT documented as of this encounter Care Teams Lgsw Relationship Specialty Start Date End Date Mychal Fields MD [address] [place] [address] PCP - General Internal Medicine 04/30/14 Hima Fam FNP [address] [place] [address] Nurse Practitioner Family Medicine 08/01/23 documented as of this encounter
--- OUTSIDE RECORDS SUMMARY | 2024-11-05 18:45 | XMS_ITS | Encounter Summary ---
Author Organization [employer] Address [address] [facility] 7t [place] [address] Care Team Providers Care Lead Miner Blasting Name Role Phone Mychal Fields MD Primary Care Provide r Hima Fam Unavailable Unavailable Encounter Details Date Type Department Care Team (Late st Contact Info) Description 10/27/2024 Orders Only [facility] External Provider, [facility] Social History Tobacco Use Types Packs/Day [...] Upcoming Encounters Date Type Department Care Team ([facility] st Contact Info) Description 12/23/2024 1:00 PM EDT Office Visit [facility] [address] [place] [address] Mychal Fields MD [address] [place] [address] documented as of this encounter Procedures Procedure [...] EST Narrative 11/04/2024 12:41 PM EST ? [facility] ? [address] ?[place] [address] ? Mammography Report ? Signed ? Patient: Clark,Elaine ?MR#: [id number] ? : 1970 ?Acct:[id number] ? Age/Sex: 53 / F ?ADM Date: 02/19/25 ? Loc: HO.MAMMO ? Attending Dr: Mychal Long MD ? Ordering Physician: Syed Coreas MD ?Results: 1Negativ ?? e ? Date of Service: 10/29/24 ?Follow Up: 1 Year From Orig ?? inal Mammogram ? Procedure(s): MM tomosynthesis screening BI ?? Accession Number(s): [id number] ? cc: Mychal Long MD; Syed Coreas [...] DD/ 1258 ? TD/TT: 10/29/24 1315 ? Project Manager Retail: ? Procedure Note Donotuseinterpreter, Image - 11/04/2024 [place] [facility] [address] [place], [place] [address] Mammography Report Signed Patient: Elaine RodasMR#: [id number] : 1970Acct:[id number] Age/Sex: 53 / FADM Date: 10/29/24 Loc: HO.MAMMO Attending Dr: Mychal Long MD Ordering Physician: Syed Coreasesults: 1Negativ e Date of Service: 10/29/24Follow Up: 1 Year From Orig inal Mammogram Procedure(s): MM tomosynthesis screening BI Accession Number(s): [id number] cc: Mychal Long MD; Syed Coreas MD [...] 11/04/24 1238 DD/ 1258 TD/TT: 10/29/24 1315 Project Manager Retail: [facility] External Provider IMG BI PROCEDURES Final Result * CT Abdomen Pelvis w/o Contrast (10/27/2024 3:13 AM EST) Anatomical Region Laterality Modality Body, Pelvis, Abdomen Computed T omography 10/27/2024 3:13 AM EST Narrative 10/27/2024 3:15 AM EST ? [facility] ?[address] ?[place] [address] ? CT Scan Report ? Signed ? Patient: Elaine Rodas ?MR#: [id number] ? : 1970 ?Acct:[id number] ? Age/Sex: 53 / F ?ADM Date: 10/27/24 ? Loc: HO.ED ? Attending Dr: ? Ordering Physician: Jaime Parker MD ?? Date of Service: 10/27/24 ?? Procedure(s): CT abdomen pelvis wo IV con ?? Accession Number(s): [id number] ? cc: [facility]; Jaime Parker MD ? Report Number: ?? [id number]: Total DLP = ??740.00 mGy-cm ? CLINICAL [...] bones are intact. ? IMPRESSION: ?? 1. Iits-ea-bsfcztik edema identified within the small bowel mesentery, [...] ? DD/ 2 ? TD/TT: 10/27/24312 ? Project Manager Retail: ? Procedure Note Nishi, Yas - 10/27/[address] [place] [address] [address] Scan Report Signed Patient: Elaine RodasMR#: [id number] : 1970Acct:[id number] Age/Sex: 53 / FADM Date: 10/27/24 Loc: HO.ED Attending Dr: Ordering Physician: Jaime Parker MD Date of Service: 10/27/24 Procedure(s): CT abdomen pelvis wo IV con Accession Number(s): [id number] cc: [facility]; Jaime Parker MD Report Number: [id number]: Total DLP = 740.00 mGy-cm CLINICAL HISTORY: [...] appendix. The bones are intact. IMPRESSION: 1. Ikbp-jt-zvjesbfb edema identified within the small bowel mesentery, [...] in OV> 10/27/24313 DD/ 2 TD/TT: 10/27/24312 Project Manager Retail: [facility] External Provider IMG CT PROCEDURES Final Result documented in this encounter Visit Diagnoses Not on filedocumented in this encounter Additional Health Concerns Assessment Noted Time PHQ-9 Depression Total Score: 6 09/16/19 25 10:06 AM EST documented as of this encounter Care Teams Lead Miner Blasting Relationship Specialty Start Date End Date Mychal Fields MD [address] [place] [address] PCP - General Internal Medicine 04/30/14 Hima Fam FNP [address] [place] [address] Nurse Practitioner Family Medicine 08/01/23 documented as of this encounter
--- OUTSIDE RECORDS SUMMARY | 2024-11-05 18:45 | XMS_ITS | Encounter Summary ---
Author Organization [employer] Address [address] [place] [address] [address] Care Team Providers Care Mechanical Facilities Technician Name Role Phone Mychal Fields MD Primary Care Provide r Hima Fam Unavailable Unavailable Encounter Details Date Type Department Care Team (Late st Contact Info) Description 12/04/2022 Telephone [facility] [address] [place] [address] [phone] Mychal Fields MD [address] [place], [place] [phone] Social History Tobacco Use Types Packs/Day Years [...] EDT Office Visit [facility] [address] [place] [address] [phone] Mychal Fields MD [address] [place], [place] [phone] documented as of this encounter Visit Diagnoses Not on filedocumented in this encounter Additional Health Concerns Assessment Noted Time PHQ-9 Depression Total Score: 7 10/09/19 23 4:00 PM EST documented as of this encounter Care Teams Mechanical Facilities Technician Relationship Specialty Start Date End Date Mychal Fields MD [address] [place] [address] PCP - General Internal Medicine 04/30/14 Hima Fam FNP [address] [place] [address] Nurse Practitioner Family Medicine 08/01/23 documented as of this encounter
--- OUTSIDE RECORDS SUMMARY | 2024-11-05 18:45 | XMS_ITS | Encounter Summary ---
Author Organization [employer] Address [address] [place] [address] 7 [place] [address] Care Team Providers Care Building Services Supervisor Name Role Phone Mychal Fields MD Primary Care Provide r Hima Fam Unavailable Unavailable Reason for Visit * Reason Onset Date Comments Appointment Request 12/04/2022 Encounter Details Date Type Department Care Team ([facility] Contact Info) Description 12/04/2022 Telephone [facility] [address] [place] [address] Mychal Fields MD [address] [place] [address] Appointment Request Social History Tobacco Use Types [...] ff/u Bp ) Please contact pt at [phone] * Telephone Encounter - Wesley Collins - 12/04/2022 2:02 PM EDT Tc from pt requesting to r/s appt on 10/19/22 ( ff/u Bp ) Please contact pt at [phone] documented in this encounter Plan of Treatment Upcoming Encounters Date Type Department Care Team (Late st Contact Info) Description 12/23/2024 1:00 PM EDT Office Visit [facility] [address] [facility] [place] [address] Mychal Fields MD [address] [place] [address] documented as of this encounter Visit Diagnoses Not on filedocumented in this encounter Additional Health Concerns Assessment Noted Time PHQ-9 Depression Total Score: 7 10/09/19 23 4:00 PM EST documented as of this encounter Care Teams Building Services Supervisor Relationship Specialty Start Date End Date Mychal Fields MD Jose Daniel [facility] [place] [address] PCP - General Internal Medicine 04/30/14 Hima Fam FNP [address] [place] [address] Nurse Practitioner Family Medicine 08/01/23 documented as of this encounter
--- OUTSIDE RECORDS SUMMARY | 2024-11-05 18:45 | XMS_ITS | Encounter Summary ---
Author Organization [employer] Address [address] [place] [address] [address] [address] Care Team Providers Care Building Construction Contractor Name Role Phone Mychal Fields MD Primary Care Provide r Hima Fam Unavailable Unavailable Encounter Details Date Type Department Care Team (Late st Contact Info) Description 04/24/2023 Orders Only [facility] [address] [place] [phone] Zena Harley MD [address] [place] [address] [phone] Acquired clavicle deformity (Primary Dx) Social History [...] Description 12/23/2024 1:00 PM EDT Office Visit [facility] [address] [place] [address] [phone] Mychal Fields MD [address] [place] [address] [phone] Scheduled Orders Name Type Priority Associated Diagnoses [...] EDT Narrative 05/14/2023 4:45 PM EDT ? [facility] ?[address] ?[place] [address] ?XRay Report ? Signed ? Patient: Elaine Rodas ?MR#: [id number] ? : 1970 ?Acct:[id number] ? Age/Sex: 52 / F ?ADM Date: 05/14/23 ? Loc: HO.ED ? Attending Dr: ? Ordering Physician: Vee Castano NP ?? Date of Service: 05/14/23 ?? Procedure(s): XR chest 2V ?? Accession Number(s): [id number] ? cc: Mychal Long MD; Vee Castano [...] 05/14/231641 ? DD/ 23 ? TD/TT: ? Bioinformatics Analyst: SUJ ? Procedure Note Didiermateojacoboparrishmallory, Image - 05/14/[address] [address] XRay Report Signed Patient: Elaine RodasMR#: [id number] : 1970Acct:[id number] Age/Sex: 52 / FADM Date: 05/14/23 Loc: HO.ED Attending Dr: Ordering Physician: Vee Castano NP Date of Service: 05/14/23 Procedure(s): XR chest 2V Accession Number(s): [id number] cc: Mychal Long MD; Vee Castano NP [...] in OV> 05/14/23 1642 DD/ 1624 TD/TT: Bioinformatics Analyst: DORITA [facility] External Provider IMG XR PROCEDURES Edited Result - Final * XR Foot 3+ Views Right (05/10/2023 11:44 AM EDT) Anatomical Region Laterality Modality Lower Extremities, Foot Right Radiogra phic Imaging 05/10/2023 11:4 4 AM EDT Narrative 05/10/2023 12:08 PM EDT ?[facility] ?[address] ?[place] [address] ?XRay Report ? Signed ? Patient: Clark,Elaine ?MR#: [id number] ? : 1970 ?Acct:[id number] ? Age/Sex: 52 / F ?ADM Date: 08/31/23 ? Loc: HO.HHCX ? Attending Dr: Mychal Long MD ? Ordering Physician: Mychal Long MD ?? Date of Service: 05/10/23 ?? Procedure(s): XR foot RT min 3V ?? Accession Number(s): [id number] ? cc: Mychal Long MD ? EXAMINATION: [...] 1205 ? DD/ 1144 ? TD/TT: ? Bioinformatics Analyst: GR ? Procedure Note Yas Almodovar - 05/10/2023 [place] [address] XRay Report Signed Patient: Elaine RodasMR#: [id number] : 1970Acct:[id number] Age/Sex: 52 / FADM Date: 05/10/23 Loc: HO.HHCX Attending Dr: Mychal Long MD Ordering Physician: Mychal Long MD Date of Service: 05/10/23 Procedure(s): XR foot RT min 3V Accession Number(s): [id number] cc: Mychal Long MD EXAMINATION: XR FOOT, [...] in OV> 05/10/23 1205 DD/ 1144 TD/TT: Bioinformatics Analyst: YULISSA us Mychal Morris MD IMG XR PROCEDURES Fin al Result * FL Esophagus Barium Swallow w/Air (05/08/2023 10:19 AM EDT) Anatomical Region Laterality Modality Head, Neck Radiographic Hilda ging 05/08/2023 10:1 9 AM EDT Narrative 05/08/2023 4:35 PM EDT ? [facility] ?[address] ?[place] [address] ? Fluoroscopy Report ? Signed ? Patient: Elaine Rodas ?MR#: [id number] ? : 1970 ?Acct:[id number] ? Age/Sex: 52 / F ?ADM Date: 05/08/23 ? Loc: HO.XRAY ? Attending Dr: Mychal Long MD ? Ordering Physician: Mychal Long MD ?? Date of Service: 05/08/23 ?? Procedure(s): FL barium swallow with air ?? Accession Number(s): [id number] ? cc: Mychal Long MD ? EXAMINATION: [...] 1632 ? DD/ 1019 ? TD/TT: ? Bioinformatics Analyst: ? Procedure Note Nishi, Image - 05/08/[address] [address] Fluoroscopy Report Signed Patient: Elaine RodasMR#: [id number] : 1970Acct:[id number] Age/Sex: 52 / FADM Date: 05/08/23 Loc: [facility] Attending Dr: Mychal Long MD Ordering Physician: Mychal Long MD Date of Service: 05/08/23 Procedure(s): FL barium swallow with air Accession Number(s): [id number] cc: Mychal Long MD EXAMINATION: XR FLUOROSCOPY [...] in OV> 05/08/23 1632 DD/ 1019 TD/TT: Bioinformatics Analyst: Mychal Morris MD IMG FLUOROSCOPY UBALDO HERNANDES Final Result documented in this encounter Visit Diagnoses Diagnosis 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
--- OUTSIDE RECORDS SUMMARY | 2024-11-05 18:46 | XMS_ITS | Encounter Summary ---
Author Organization [employer] Address [address] [place] [address] [address] [place] [address] Care Team Providers Care Director Clinical Information Services Name Role Phone Mychal Fields MD Primary Care Provide r Hima Fam Unavailable Unavailable Reason for Visit * Reason Onset Date Comments Med Refill 10/30/2024 Encounter Details Date Type Department Care Team ([facility] st Contact Info) Description 10/30/2024 Refill [facility] [address] [place] [address] Noemy Frye, ALAN [address] [place] [address] Anxiety and depression Social History Tobacco Use [...] 1:00 PM EDT Office Visit [facility] [address] [place] [address] Mychal Fields MD [address] [place] [address] documented as of this encounter Visit Diagnoses Diagnosis Anxiety and depression documented in this encounter Additional Health Concerns Assessment Noted Time PHQ-9 Depression Total Score: 6 09/16/19 25 10:06 AM EST documented as of this encounter Care Teams Director Clinical Information Services Relationship Specialty Start Date End Date Mychal Fields MD [address] [place] [address] PCP - General Internal Medicine 04/30/14 Hima Fam FNP [address] [place] [address] Nurse Practitioner Family Medicine 08/01/23 documented as of this encounter
--- OUTSIDE RECORDS SUMMARY | 2024-11-05 18:46 | XMS_ITS | Encounter Summary ---
Author Organization [employer] Address [address] [place] [address] [address] [place] [address] Care Team Providers Care Brine Tank Tender Name Role Phone Mychal Fields MD Primary Care Provide r Hima Fam Unavailable Unavailable Reason for Visit * Reason Comments Med Refill Encounter Details Date Type Department Care Team ([facility] st Contact Info) Description 07/27/2023 Refill [facility] [address] [place] [address] Mychal Fields MD [address] [place], [place] [phone] Social History Tobacco Use Types Packs/Day Years [...] Description 12/23/2024 1:00 PM EDT Office Visit [facility] [address] [place] [address] Mychal Fields MD [address] [place] [address] documented as of this encounter Visit Diagnoses Not on filedocumented in this encounter Additional Health Concerns Assessment Noted Time PHQ-9 Depression Total Score: 0 05/10/20 23 10:38 AM EDT documented as of this encounter Care Teams Brine Tank Tender Relationship Specialty Start Date End Date Mychal Fields MD [address] [place] [phone] PCP - General Internal Medicine 04/30/14 Hima Fam FNP [address] [place] [phone] Nurse Practitioner Family Medicine 08/01/23 documented as of this encounter
--- OUTSIDE RECORDS SUMMARY | 2024-11-05 18:46 | XMS_ITS | Encounter Summary ---
Author Organization [employer] Address [address] [place] [address] [address] [place] [address] Care Team Providers Care Traffic Investigator Name Role Phone Mychal Fields MD Primary Care Provide r Hima Fam Unavailable Unavailable Encounter Details Date Type Department Care Team (Late Contact Info) Description 06/11/2023 Orders Only [facility] [address] [place], [place] [phone] Veda Isabel LPN Social History Tobacco Use [...] Description 12/23/2024 1:00 PM EDT Office Visit [facility] [address] [place], [place] [phone] Mychal Fields MD [address] [place], [place] [phone] documented as of this encounter Visit Diagnoses Not on filedocumented in this encounter Additional Health Concerns Assessment Noted Time PHQ-9 Depression Total Score: 0 05/10/20 23 10:38 AM EDT documented as of this encounter Care Teams Traffic Investigator Relationship Specialty Start Date End Date Mychal Fields MD [address] [place] [address] PCP - General Internal Medicine 04/30/14 Hima Fam FNP [address] [place] [address] Nurse Practitioner Family Medicine 08/01/23 documented as of this encounter
--- OUTSIDE RECORDS SUMMARY | 2024-11-05 18:46 | XMS_ITS | Clinical Summary ---
Author Organization [employer] Address [address] [place] [address] 7 [place] [address] Care Team Providers Care Warehouse Pricing And Inventory Clerk Name Role Phone Mychal Fields MD [...] 2 (two) hours if needed. Active rizatriptan CHIEF OPERATING OFFICER (Maxalt-CHIEF OPERATING OFFICER) 5 MG disintegrating tablet PLEASE SEE [...] was evaluated by Dr. Wynn at our [facility] who recommended to check D dimer given [...] We are trying to get her to [facility] before the lab and xray close [...] reports she has completed thyroid ultrasound at [facility], notes not available at this time [...] EDT): Pelvis exam indicative of this Plan: [facility] referral Right foot pain 05/10/2023 Assessment & [...] tolerate NSAIDS Patient was eventually seen at [facility] neurology 04/04/2024. They recommended repeat brain MRI [...] with no good results, cannot tolerate NSAIDS [facility] neurology is not accepting new patients at the moment. Will try to refer to a different Neurologist perhaps at [facility] Assessment & Plan (01/17/2024 1:06 [...] will also be referring to Neurology at [facility] Assessment & Plan (04/03/2023 1:22 PM EDT): Under the care of Dr Chad Acosta. Last seen on 04/20/2014 He started her on Amitriptyline 25 mg po qhs. and recommended a 6 month f/u. [facility] health care 10/19/2022 Assessment & Plan (09/16/2024 [...] recently retired Pt has a therapist at [facility] I recommended she speak with therapist about [...] necessary. For any issues or concerns, contact [facility]. All her questions were answered and I [...] used to be under the care of mobility specialist who had been prescribing Baclofen Assessment [...] used to be under the care of mobility specialist who had been prescribing tramadol 100mg [...] without neural impingement. Pt was seen at [facility] 04/2023 and has a follow [...] without neural impingement. Pt was seen at [facility] recently has a follow up [...] neural impingement. [facility] Smoker 02/21/2012 Assessment & Plan (04/03/2023 1:41 [...] Type Department Care Team Description 10/30/2024 Refill [facility] [address] [place] [address] Noemy Frye RN Anxiety and depression 10/30/2024 Telephone [facility] [address] [place] [phone] Mychal Fields MD Med Refill 10/27/2024 Orders Only [facility] External Provider, [facility] 10/11/2024 Refill [facility] [address] [place] [phone] Mychal Fields MD 10/11/2024 Refill [facility] [address] [place] [phone] Bette Wynn MD Low vitamin D level 10/06/2024 1:15 PM EST Office Visit [facility] [address] [place] [address] Nabeel Magana MD Pre-op evaluation (Primary Dx) 10/06/2024 Refill [facility] [address] [place] [address] Mychal Fields MD Anxiety and depression 10/06/2024 Travel 10/03/2024 Telephone [facility] [address] [place] [phone] Mychal Fields MD December09/22/2024 Orders Only GENERIC EXTERNAL DATA DEPARTMENT Provider, Generic External Data 09/18/2024 Telephone [facility] [address] [place] [phone] Mychal Fields MD PRE OP 09/16/2024 10:00 AM EST Office Visit [address] [address] Mychal Fields MD JERRI (obstructive sleep apnea) (Primary Dx); Abnormal CT of the chest; Essential hypertension; Microscopic hematuria; Fibromyalgia; Subacute cough; Restrictive lung disease; Enlarged lymph nodes; Preventative health care 09/16/2024 Telephone [facility] [address] [place] [phone] Mychal Fields MD Appointment Request 09/16/2024 Orders Only GENERIC EXTERNAL DATA DEPARTMENT Provider, Generic External Data 09/16/2024 Telephone [facility] [address] [place] [phone] Mychal Fields MD Appointment Request 09/16/2024 Travel 09/11/2024 Refill [facility] [address] [place], [place] [phone] Claudette Nassar MD Anxiety and depression 09/04/[address] [address] Mychal Fields MD Chart Prep 08/25/[address] [address] Toño Lim [place] Lab order D-Dimer STAT 08/15/[address] [address] Margarita Reagan RN Lab Orders (STAT D-Dimer) 08/12/2024 Refill [facility] [address] [place], [place] [phone] Mychal Fields MD Anxiety and depression 08/11/2024 Refill [facility] [address] [place] [phone] Cinthya Dover ANP Essential hypertension 08/05/2024 5:20 PM EST Office Visit [facility] [address] [place] [phone] Bette Wynn MD Cough in adult patient (Primary Dx) 08/05/2024 Orders Only GENERIC EXTERNAL DATA DEPARTMENT Provider, Generic External Data 08/05/2024 Travel 08/05/[address] [address] Mychal Fields MD Nurse Triage from Last [...] 1:00 PM EDT Office Visit [facility] [address] [place] [address] Mychal Fields MD [address] [place] [address] Health Maintenance Due Date Last Done Comments [...] EST Narrative 11/04/2024 12:41 PM EST ? [facility] [place] ? [address] ?[place] [address] ? Mammography Report ? Signed ? Patient: Clark,Elaine ?MR#: [id number] ? : 1970 ?Acct:[id number] ? Age/Sex: 53 / F ?ADM Date: 02/19/25 ? Loc: HO.MAMMO ? Attending Dr: Mychal Long MD ? Ordering Physician: Syed Coreas MD ?Results: 1Negativ ?? e ? Date of Service: 10/29/24 ?Follow Up: 1 Year From Orig ?? inal Mammogram ? Procedure(s): MM tomosynthesis screening BI ?? Accession Number(s): [id number] ? cc: Mychal Long MD; Syed Coreas [...] DD/ 1258 ? TD/TT: 10/29/24 1315 ? Newborn Hearing Screener: ? Procedure Note Donotuseinterpreter, Image - 11/04/2024 [place] [facility] [address] [place] [address] [place] [address] Mammography Report Signed Patient: Elaine RodasMR#: [id number] : 1970Acct:[id number] Age/Sex: 53 / FADM Date: 10/29/24 Loc: HO.MAMMO Attending Dr: Mychal Long MD Ordering Physician: Syed Coreasesults: 1Negativ e Date of Service: 10/29/24Follow Up: 1 Year From Orig inal Mammogram Procedure(s): MM tomosynthesis screening BI Accession Number(s): [id number] cc: Mychal Long MD; Syed Coreas MD [...] 11/04/24 1238 DD/ 1258 TD/TT: 10/29/24 1315 Newborn Hearing Screener: us [facility] External Provider IMG BI PROCEDURES Final Result * CT Abdomen Pelvis w/o Contrast (10/27/2024 3:13 AM EST) Anatomical Region Laterality Modality Body, Pelvis, Abdomen Computed T omography 10/27/2024 3:13 AM EST Narrative 10/27/2024 3:15 AM EST ? [facility] ?[address] ?[place], [place] [address] ? CT Scan Report ? Signed ? Patient: Elaine Rodas ?MR#: [id number] ? : 1970 ?Acct:[id number] ? Age/Sex: 53 / F ?ADM Date: 10/27/24 ? Loc: HO.ED ? Attending Dr: ? Ordering Physician: Jaime Parker MD ?? Date of Service: 10/27/24 ?? Procedure(s): CT abdomen pelvis wo IV con ?? Accession Number(s): [id number] ? cc: [facility]; Jaime Parker MD ? Report Number: ?? [id number]: Total DLP = ??740.00 mGy-cm ? CLINICAL [...] bones are intact. ? IMPRESSION: ?? 1. Uwev-zi-yjngsyxg edema identified within the small bowel mesentery, [...] ? DD/ 0313 ? TD/TT: 10/27/24[address] ? Newborn Hearing Screener: ? Procedure Note Donotuseinterpreter, Image - 10/27/[address] [place] [address] [address] Scan Report Signed Patient: Elaine RodasMR#: [id number] : 1970Acct:[id number] Age/Sex: 53 / FADM Date: 10/27/24 Loc: HO.ED Attending Dr: Ordering Physician: Jaime Parker MD Date of Service: 10/27/24 Procedure(s): CT abdomen pelvis wo IV con Accession Number(s): [id number] cc: [facility]; Jaime Parker MD Report Number: [id number]: Total DLP = 740.00 mGy-cm CLINICAL HISTORY: [...] appendix. The bones are intact. IMPRESSION: 1. Unrx-rz-wafpndkz edema identified within the small bowel mesentery, [...] OV> 10/27/[address] DD/ 2 TD/TT: 02/17/25 0313 Newborn Hearing Screener: us [facility] External Provider IMG CT PROCEDURES Final Result * XR Knee 4+ Views Right (09/22/2024 12:50 PM EST) Anatomical Region Laterality Modality Lower Extremities, Knee Right Radiogra phic Imaging 09/22/2024 12:5 0 PM EST Narrative 09/24/2024 9:59 AM EST ? [facility] ?[address] ?[place] [address] ?XRay Report ? Signed ? Patient: Elaine Rodas ?MR#: [id number] ? : 1970 ?Acct:[id number] ? Age/Sex: 53 / F ?ADM Date: 09/22/24 ? Loc: HO.XRAY ? Attending Dr: Syed Coreas MD ? Ordering Physician: Brigid West MD ?? Date of Service: 09/22/24 ?? Procedure(s): XR knee RT 4V ?? Accession Number(s): [id number] ? cc: Brigid West MD; Mychal Long [...] DD/ 1250 ? TD/TT: 09/22/24 1312 ? Newborn Hearing Screener: MSM ? Procedure Note Nishi, Image - 09/24/[address] [address] XRay Report Signed Patient: Elaine RodasMR#: [id number] : 1970Acct:[id number] Age/Sex: 53 / FADM Date: 09/22/24 Loc: HO.XRAY Attending Dr: Syed Coreas MD Ordering Physician: Brigid West MD Date of Service: 09/22/24 Procedure(s): XR knee RT 4V Accession Number(s): [id number] cc: Brigid West MD; Mychal Long MD [...] 09/24/24 0956 DD/ 1250 TD/TT: 09/22/24 1312 Newborn Hearing Screener: GARY us [facility] External Provider IMG XR PROCEDURES Final Result * XR Knee 4+ Views Left (09/22/2024 12:50 PM EST) Anatomical Region Laterality Modality Lower Extremities, Knee Left Radiogra phic Imaging 09/22/2024 12:5 0 PM EST Narrative 09/24/2024 10:01 AM EST ? [facility] ?[address] ?[place] [address] ?XRay Report ? Signed ? Patient: Clark,Elaine ?MR#: [id number] ? : 1970 ?Acct:[id number] ? Age/Sex: 53 / F ?ADM Date: 09/22/24 ? Loc: HO.XRAY ? Attending Dr: Syed Coreas MD ? Ordering Physician: Brigid West MD ?? Date of Service: 09/22/24 ?? Procedure(s): XR knee LT 4V ?? Accession Number(s): [id number] ? cc: Brigid West MD; Mychal Long [...] DD/ 1250 ? TD/TT: 09/22/24 1312 ? Newborn Hearing Screener: MSM ? Procedure Note Nishi, Yas - 09/24/[address] [address] XRay Report Signed Patient: Elaine RodasMR#: [id number] : 1970Acct:[id number] Age/Sex: 53 / FADM Date: 09/22/24 Loc: HO.XRAY Attending Dr: Syed Coreas MD Ordering Physician: Brigid West MD Date of Service: 09/22/24 Procedure(s): XR knee LT 4V Accession Number(s): [id number] cc: Brigid West MD; Mychal Long MD [...] 09/24/24 0959 DD/ 1250 TD/TT: 09/22/24 1312 Newborn Hearing Screener: [facility] External Provider IMG XR PROCEDURES Final Result * XR Chest 2 Views (09/22/2024 12:50 PM EST) Anatomical Region Laterality Modality Chest Radiographic Hilda ging 09/22/2024 12:5 0 PM EST Narrative 09/24/2024 10:02 AM EST ? [facility] ?[address] ?[place] [address] ?XRay Report ? Signed ? Patient: Clark,Elaine ?MR#: [id number] ? : 1970 ?Acct:[id number] ? Age/Sex: 53 / F ?ADM Date: /13/25 ? Loc: HO.XRAY ? Attending Dr: Syed Coreas MD ? Ordering Physician: Mychal Long MD ?? Date of Service: 09/22/24 ?? Procedure(s): XR chest 2V ?? Accession Number(s): [id number] ? cc: Mychal Long MD ? EXAMINATION: [...] DD/ 1250 ? TD/TT: 09/22/24 1312 ? Newborn Hearing Screener: MSM ? Procedure Note Nishi, Image - 09/24/2024 [place] [address] XRay Report Signed Patient: Sebas Rodas#: [id number] : 1970Acct:[id number] Age/Sex: 53 / FADM Date: 09/22/24 Loc: [facility] Attending Dr: Syed Coreas MD Ordering Physician: Mychal Long MD Date of Service: 09/22/24 Procedure(s): XR chest 2V Accession Number(s): [id number] cc: Mychal Long MD EXAMINATION: XR CHEST CLINICAL INFORMATION: cough COMPARISON: None available. TECHNIQUE: 2 views of the chest were obtained. FINDINGS: No significant abnormality is noted involving the heart, lungs, mediastinum, bony thorax or soft tissues. XR/XR chest 2V IMPRESSION: Unremarkable examination. Electronically signed by: Chidi Self MD 09/24/2024 09:59 AM EST RP Dictated By: Chidi Slef MD Signed By: <Electronically signed by Chidi Self MD in OV> 09/24/24 0959 DD/ 1250 TD/TT: 09/22/24 1312 Newborn Hearing Screener: GARY us Mychal Morris MD IMG XR PROCEDURES Fin al Result * Syphilis Screen (09/22/2024 12:35 PM EST) Syphilis Screen Nonreactive Nonreactive [facility] 09/22/2024 12:3 5 PM EST 09/22/2024 12:35 PM EST Generic External Data Provider LAB BLOOD ORDERAB LES Final Result Performing Organization Address [facility] Co de Phone Number [facility] [address] [place] [phone] * Hepatitis C Ab (09/22/2024 12:35 PM EST) Hepatitis C Antibody Nonreactive Nonreactive [facility] Comment:Antibodies to HCV no t detected; does not exclude early acuteHCV infection. 09/22/2024 12:3 5 PM EST 09/22/2024 12:35 PM EST Generic External Data Provider LAB BLOOD ORDERAB LES Final Result Performing Organization Address City/[facility] Co de Phone Number [facility] [address] [place] [phone] * Creatinine, Serum (09/22/2024 12:35 PM EST) Only the most recent of2 resultswithin the time period is included. Creatinine, Serum 0.89 0.5 - 1.4 mg/dL [facility] Estimated Glomerular Filt Rate >60 [facility] Comment:Chronic Kidney Disea se: Estimated GFR < 60 mL/min/[id number] Kidney Disease: Estimated GFR < 15 mL/min/1.73m2 09/22/2024 12:3 5 PM EST 09/22/2024 12:35 PM EST Generic External Data Provider LAB BLOOD ORDERAB LES Final Result Performing Organization Address City/[facility]/ZIP Co de Phone Number [facility] [address] [place] [phone] * Hepatitis B surface antigen, EIA (09/22/2024 12:35 PM EST) Hepatitis B Surface Ag Negative Negative [facility] 09/22/2024 12:3 5 PM EST 09/22/2024 12:35 PM EST Generic External Data Provider LAB BLOOD ORDERAB LES Final Result Performing Organization Address [facility] Phone Number [facility] [address] [place] [phone] * HIV-1/2 Antigen and Antibodies, Fourth Generation, with Reflexes (09/22/2024 12:35 PM EST) HIV AB/AG Nonreactive Nonreactive [facility] Comment:HIV-1 p24 Ag and/or HIV-1/HIV-2 Ab not detected.A test result that is nonreactive does not exclude thepossibility of exposure to or infection with HIV-1 and/orHIV-2. Nonreactive results in this assay for individualswith prior exposure to HIV-1 and/or HIV-2 may be due toantigen and antibody levels that are below the limit ofdetection of this assay.The COH HIV Ag/Ab Combo assay result andsupplemental assay results should be interpreted inconjunction with the patient's clinical presentation,history and other laboratory results. If the results areinconsistent with clinical evidence, additional testing issuggested to confirm the result. 09/22/2024 12:3 5 PM EST 09/22/2024 12:35 PM EST us Generic External Data Provider LAB BLOOD ORDERAB LES Final Result Performing Organization Address [facility]/ZIP Co de Phone Number [facility] [address] [place] [phone] * BUN (Blood Urea Nitrogen) (09/22/2024 12:35 PM EST) Only the most recent of2 resultswithin the time period is included. [facility] Urea Nitrogen (BUN) 13 9 - 16 mg/dL [facility] 09/22/2024 12:3 5 PM EST 09/22/2024 12:35 PM EST us Generic External Data Provider LAB BLOOD ORDERAB LES Final Result Performing Organization Address [facility] Phone Number [facility] [address] [place] [phone] * D Dimer High Sensitivity (09/16/2024 11:09 AM EST) [facility] D Dimer High Sensitivity 203 NG/ML [facility] Comment:D-DIMER HS REFERENCE RANGENote: Our assay reports D-Dimer Units (D- DU).The cut-off value for venous thromboembolic (VTE) disease is230 ng/mL. This value has a very high negative predictivevalue when the patient has a low to moderate clinicalprobability of VTE.The upper limit of normal is 243 ng/mL. Blood 09/16/2024 11:0 9 AM EST 09/16/2024 1:03 PM EST us yMchal Morris MD LAB BLOOD ORDERABLES Final Result Performing Organization Address [facility] Co de Phone Number [facility] [address] [place] [phone] * High Sensitivity Troponin I (08/05/2024 6:21 PM EST) [facility] TROPONIN I HIGH SENSITIVITY <2.7 <3.5 - 17.0 ng/L [facility] Comment:The Hernandez high sens itivity Troponin-I results should beused in conjunction with other diagnostic information suchas ECG, clinical observations and information, and patientsymptoms to aid in the diagnosis of CO. 08/05/2024 6:21 PM EST 08/05/2024 6:24 PM EST us Generic External Data Provider LAB BLOOD ORDERAB LES Final Result [facility] [address] [place] [address] [phone] * (ABNORMAL) CBC auto differential (08/05/2024 6:21 PM EST) White Blood Count 8.2 4.8 - 10.8 X10*3/uL [facility] Red Blood Count 4.26 4.20 - 5.50 X10*6/uL [facility] Hemoglobin 12.5 12.0 - 16.0 g/dl [facility] Hematocrit 37.0 37.0 - 47.0 % [facility] Mean Corpuscular Volume 86.9 80.0 - 98.0 fL [facility] Mean Corpuscular Hemoglobin 29.3 27.0 - 33.0 pg [facility] Mean Corpuscular HGB Conc 33.8 31.0 - 35.0 g/dl [facility] Red Cell Distribution Width 12.9 11.0 - 16.0 % [facility] Platelet Count 269 160 - 400 X10*3/uL [facility] Mean Platelet Volume 9.6 9.4 - 12.3 fL [facility] Neutrophils Percent Auto 47.3 45 - 73 % [facility] Imm Gran Pct Auto 0.2 0.0 - 0.4 % [facility] Lymphocytes Percent Auto 45.0(H) 20 - 40 % [facility] Monocytes Percent Auto 4.5 2 - 11 % [facility] Eosinophils Percent Auto 2.3 0 - 4 % [facility] Basophils Percent Auto 0.7 0 - 2 % [facility] NRBC Pct Auto 0.0 0.0 - 0.2 /100WBC [facility] Neutrophils Absolute Auto 3.9 2.0 - 8.3 x10*3/uL [facility] Imm Gran Abs Auto 0.02 0.00 - 0.03 X10*3/uL [facility] Lymphocytes Absolute Auto 3.7 1.2 - 4.9 X10*3/uL [facility] Monocytes Absolute Auto 0.4 0.1 - 1.2 X10*3/uL [facility] Eosinophils Absolute Auto 0.2 0.0 - 0.4 X10*3/uL [facility] Basophils Absolute Auto 0.1 0.0 - 0.2 X10*3/uL [facility] NRBC Abs Auto 0.000 0.0 - 0.012 X10*3/uL [facility] 08/05/2024 6:21 PM EST 08/05/2024 6:24 PM EST us Generic External Data Provider LAB BLOOD ORDERAB LES Final Result Performing Organization Address City/State/[facility] Co de Phone Number [facility] [address] [place] [phone] * Prothrombin Time-INR (08/05/2024 6:21 PM EST) Prothrombin Time 10.9 10.9 - 12.4 SEC [facility] INTERNATIONAL NORM RATIO 0.9 0.9 - 1.1 [facility] Comment:INTERNATIONAL NORMAL IZED RATIO (INR) REFERENCE [...] Final Result [facility] [address] [place] [phone] * (ABNORMAL) Comprehensive Metabolic Panel (08/05/2024 6:21 PM EST) Sodium 139 135 - 145 mmol/L [facility] Potassium 3.9 3.3 - 5.1 mmol/L [facility] Chloride 105 96 - 108 mmol/L [facility] Carbon Dioxide 29 22 - 29 mmol/L [facility] Anion Gap 9(L) 12 - 20 [facility] Urea Nitrogen (BUN) 11 9 - 16 mg/dL [facility] Creatinine, Serum 0.86 0.5 - 1.4 mg/dL [facility] Creatinine Clr Calc Pharmacy 88.6 [facility] Comment:Provided height and weight: 167.64 cm,96.5 kg.eGFR (calculated from the MDRD study equation) and eCrCl(calculated from the Cockcroft-Gault equation) are based ondifferent parameters and may not yield comparable results.If eCrCl result is absurd, please check patient'sheight/weight. Estimated Glomerular Filt Rate >60 [facility] Comment:Chronic Kidney Disea se: Estimated GFR < 60 mL/min/1.85l7Qqkzab Kidney Disease: Estimated GFR < 15 mL/min/1.73m2 Glucose 98 60 - 115 mg/dL [facility] Calcium 9.3 8.4 - 10.2 mg/dL [facility] Bilirubin, Total 0.2 0.0 - 1.0 mg/dL [facility] Aspartate Amino Transferase 17 5 - 31 U/L [facility] Alanine Aminotransferase 14 0 - 31 U/L [facility] Total Protein 7.6 6.5 - 8.0 g/dL [facility] Albumin Level 3.9 3.5 - 5.0 g/dL [facility] Alkaline Phosphatase 114 39 - 117 U/L [facility] 08/05/2024 6:21 PM EST 08/05/2024 6:24 PM EST Generic External Data Provider LAB BLOOD ORDERAB LES Final Result Performing Organization Address [facility] Co de Phone Number [facility] [address] [place] [phone] * POCT Rapid COVID-19 Binax NOW (08/05/2024 5:31 PM EST) Pathologist [facility] Rapid COVID Ag Negative QC Media Lot # [id number] Lot# Expiration Date Swab 08/05/2024 5:31 PM EST Bette Wynn MD POINT OF CARE TEST ENTER/E DIT ORDERABLES Final Result * POCT Rapid Influenza B HERNANDEZ ID NOW (08/05/2024 5:30 PM EST) [facility] Influenza B Negative Negative, Indeterminate [facility] QC Media Lot # [id number] [facility] Lot# Expiration Date [facility] Swab 08/05/2024 5:30 PM EST Result [facility] Bette Wynn MD POINT OF CARE TEST ENTER/E DIT ORDERABLES Final Result Performing Organization Address City/[facility]/ZIP Co de Phone Number [facility] [address] [place] [phone] * POCT Rapid Influenza A HERNANDEZ ID NOW (08/05/2024 5:30 PM EST) [facility] Influenza A Negative Negative, Indeterminate [facility] QC Media Lot # [id number] [facility] Lot# Expiration Date [facility] Swab 08/05/2024 5:30 PM EST Bette Wynn MD POINT OF CARE TEST ENTER/E DIT ORDERABLES Final Result Performing Organization Address [facility]/ZIP Co de Phone Number [facility] [address] [place] [phone] * HPV mRNA E6/E7 w/Reflex to HPV Genotypes 16, 18/45 (08/23/2023 2:22 PM EST) HPV nRNA E6/E7 Not Detected Not Detected [facility] Comment:Methodology: Transcr iption-Mediated AmplificationThis assay detects E6/E7 viral messenger RNA (mRNA) from 14high-risk HPV types (16,18,31,33,35,39,45,51,52,56,58,59,66,68).Cervical sources are required for HPV testing.If a vaginal source from a patient who has had atotal hysterectomy with removal of cervix wassubmitted, please contact the testing laboratoryfor alternative testing options.For additional information, please refer tohttp://[email or web address]/faq/CAK566n4(This link if provided for information/educational purposes only.)THIS TEST WAS PERFORMED AT:[employer] [place] [phone] PRESSLEY MD HPV mRNA E6/E7 [facility] HPV 16 RNA [facility] HPV 18/45 RNA [facility] 08/23/2023 2:22 PM EST 08/24/2023 9:35 AM EST Cecily [facility] CYTOLOGY ORDERABLES F inal Result Performing Organization Address City/[facility]/ZIP Co de Phone Number [facility] [address] [place] [address] [phone] * Pap Smear (08/23/2023 2:22 PM EST) Swab Cervix uteri structure / Unknown 08/23/2023 2:22 PM EST 08/24/2023 9:35 AM EST Narrative [facility] - 09/04/2023 1:23 PM EST ----- ------- Name: Elaine Rodas ?Age/Sex: 52/F ? : 1970 Unit#: [id number] ?? Attend : ?Re08/23/23 ?Status: PRE REF ? Location: HO.LNP ?Disch: ? ----- ------- SPEC : [id number] ?RECD: 08/24/23 ? STATUS: ??SOUT ? REQ NUM: [id number] ? CHAPIN: 08/23/23 ? SUBM DR: CECILY SCHWAB CNM ? ENTERED: ??08/24/23129 ?SP TYPE: Pap Smr ?OTHR : ? [...] 66, 68) ?? HPV testing performed by [facility], [place], [place]. ??See reference laboratory ?? portion of the EMR for entire report. ?Clinical Information LMP: Postmenopausal Previous PAP test: Unknown date/findings Other history: Abnormal bleeding ? Material Received ?? ThinPrep-Cervical ----- ------- Signed (signature on file) NATHAN Medrano (ASCP) 09/04/23 1323 ? ----- ------- ? END OF REPORT ? Cecily Schwba CNM LAB CYTOLOGY ORDERABLES F inal Result [facility] [address] [place] [address] [phone] * Hm Colonoscopy (08/30/2022) Colonoscopy Normal [...] ?? Mina MARRERO et al. ASHUTOSH. 2013;310(19): 7779-0177 ?? ([email or web address]) Chol/HDLC Ratio 3.4 <5.0 (calc) [facility] 06/17/2020 3:00 PM EDT Mychal Morris MD LAB BLOOD ORDERABLES Final Result [facility] [address] from Last 3 Months or Most Recently Relevant to Health Maintenance Insurance [employer] Care Teams Warehouse Pricing And Inventory Clerk Relationship Specialty Start Date End Date Mychal Fields MD [address] [place] [address] PCP - General Internal Medicine 04/30/14 Hima Fam FNP [address] [place] [address] Nurse Practitioner Family Medicine 08/01/23
--- OUTSIDE RECORDS SUMMARY | 2024-11-05 18:46 | XMS_ITS | Encounter Summary ---
Author Organization [employer] Address [address] [place] [address] 7 [place] [address] Care Team Providers Care Treating Inspector Name Role Phone Mychal Fields MD Primary Care Provide r Hima Fam Unavailable Unavailable Reason for Visit * Reason Onset Date Comments Med Refill 10/30/2024 Encounter Details Date Type Department Care Team ([facility] st Contact Info) Description 10/30/2024 Telephone [facility] [address] [place] [address] Mychal Fields MD [address] [place] [address] Med Refill Social History Tobacco Use Types [...] Description 12/23/2024 1:00 PM EDT Office Visit [facility] [address] [place] [address] Mychal Fields MD [address] [place] [address] documented as of this encounter Visit Diagnoses Not on filedocumented in this encounter Additional Health Concerns Assessment Noted Time PHQ-9 Depression Total Score: 6 09/16/19 25 10:06 AM EST documented as of this encounter Care Teams Treating Inspector Relationship Specialty Start Date End Date Mychal Fields MD [address] [place] [address] PCP - General Internal Medicine 04/30/14 Hima Fam FNP [address] [place] [address] Nurse Practitioner Family Medicine 08/01/23 documented as of this encounter
--- OUTSIDE RECORDS SUMMARY | 2024-11-05 18:46 | XMS_ITS | Encounter Summary ---
Author Organization [employer] Address [address] [place] [address] 7 [place] [address] Care Team Providers Care Top Cager Name Role Phone Mychal Fields MD Primary Care Provide r Hima Fam Unavailable Unavailable Reason for Visit * Reason Onset Date Comments Nurse Triage 08/05/2024 Encounter Details Date Type Department Care Team ([facility] st Contact Info) Description 08/05/2024 Telephone [facility] [address] [place] [address] Mychal Fields MD [address] [place] [address] Nurse Triage Social History Tobacco Use Types [...] for cough.Pt is offered to come to [facility] to be seen by provider, advised [...] Pt didn't answer. Left message to call [facility] [phone]. Advised will call back in about 15 [...] symptoms except for fever. Contact pt at [phone] (italian) documented in this encounter Plan of Treatment Upcoming Encounters Date Type Department Care Team (Late st Contact Info) Description 12/23/2024 1:00 PM EDT Office Visit [facility] [address] [place] [address] Mychal Fields MD [address] [place] [address] documented as of this encounter Visit Diagnoses Not on filedocumented in this encounter Additional Health Concerns Assessment Noted Time PHQ-9 Depression Total Score: 9 01/28/20 24 2:36 PM EDT documented as of this encounter Care Teams Top Cager Relationship Specialty Start Date End Date Mychal Fields MD [address] [place] [address] PCP - General Internal Medicine 04/30/14 Hima Fam FNP [address] [place] [address] Nurse Practitioner Family Medicine 08/01/23 documented as of this encounter
[2024-11-06 08:19] LABS: Syphilis Screen Nonreactive (Nonreactive)
[2024-11-06 08:59] LABS: HIV AB/AG Nonreactive (Nonreactive); HIV Num 1 0.06 S/CO (0.00-0.99); Hepatitis B Surface Antigen Negative (Negative); ~HepC Num1 0.26 S/CO (0.00-0.79); ~Hepatitis C Antibody Nonreactive (Nonreactive)
== END 2024-11-05 14:37 | disposition home or self-care (01) ==
LOC: HO.LAB 14:36
PROVIDERS: PCP Internal Medicine; Visit Provider Obstetrics & Gynecology
DX: A60.00 Herpesviral infection of urogenital system, unspecified (principal); Z20.2 Contact with and (suspected) exposure to infections with a predominantly sexual mode of transmission; Z79.899 Other long term (current) drug therapy
CPT/HCPCS: 36415; 86780; 86803; 87340; 87389; 99212

== ENCOUNTER 2024-11-14 08:33 | Outpatient (AMB) | payer MEDICAID, SELFPAY ==
--- NOTE | 2024-11-14 08:34 | A.OFFVIS_ITS ---
Vital Signs 11/14/24 08:40 Height 5 ft 5 in Weight 218 lb 0.595 oz BMI 36.3 BP 132/84 Blood Pressure Location Lt brachial Position Sitting Pulse 85 Pulse Source Pulse Oximeter Pulse Oximetry (%) 98 Oxygen Delivery Method Room Air Intake Visit Reasons: euflexxa Intake Note: Patient presents for Euflexxa. Crop Specialist Required: Yes Crop Specialist Language: Grade Setter Services: Crop Specialist Offered & Declined Information Interpreted: non-clinical & clinical Allergies metronidazole Allergy (Severe, Verified 11/14/24 08:39) vomiting Penicillins Allergy (Mild, Verified 11/14/24 08:39) VAGINAL FUNGUS INFECTION lisinopril [LISINOPRIL] Allergy (Unknown, Verified 11/14/24 08:39) COUGH verapamil Allergy (Unknown, Verified 11/14/24 08:39) unknown Medication List - Last Reconciled 11/14/24 by Brigid West MD albuterol sulfate 90 mcg/actuation (Ventolin HFA) 2 puffs PO Q4H PRN amlodipine 10 mg PO DAILY beclomethasone dipropionate 40 mcg/actuation (Qvar RediHaler) 2 inhalations inhalation BID blood pressure test kit-large As directed cholecalciferol (vitamin D3) (Vitamin D3) 50 mcg PO DAILY citalopram 20 mg PO DAILY clonazepam 1 mg PO TID PRN dexlansoprazole (Dexilant) 60 mg PO DAILY 90 days estradiol 0.01%(0.1mg/gram) 1 g vaginal 2XW fluticasone furoate 100 mcg/actuation (Arnuity Ellipta) 1 inh inhalation DAILY fluticasone furoate-vilanterol 200-25 mcg/dose (Breo Ellipta) 1 inh inhalation DAILY fluticasone propionate 50 mcg/actuation 1 spray intranasal DAILY lidocaine 5% patches topical loperamide (Imodium A-D) 2 mg PO Q6H PRN loratadine 10 mg PO DAILY losartan 100 mg PO DAILY minoxidil 2.5 mg PO QAM nicotine (polacrilex) 2 mg buccal Q2H ondansetron 4 mg PO Q6-8H PRN sennosides (senna) 1-2 tabs qhs orally bedtime; 30 days tramadol 50 mg PO TID PRN 30 days valacyclovir 500 mg PO BID PRN valacyclovir 500 mg PO BID 3 days zolpidem 10 mg PO BEDTIME PRN HPI Comments Details: Patient is a 53 y.o. female depression, hypertension who is here today for follow up of polyarticular osteoarthritis and fibromyalgia Interval History: Patient last seen 10/30/24. At that time patient was receiving bilateral Euflex xa injections for bilateral knee osteoarthritis. Here today for bilateral knee Euflexxa 3rd dose Rheumatologic History: Patient established care with Rheumatology 01/30/2022 Fibromyalgia and polyarticular osteoarthritis She has tried and failed Lyrica, gabapentin cymbalta, amitriptyline, and her insurance did not approve Savella. She estimates that she gets 6 hours of sleep at night and is taking ambien. Unable to get tramadol due to insurance issues and baclofen did not help Current Rheumatology Medication(s): Tramadol 50mg tid prn PFSH Medical History Cataract, right eye Bilateral primary osteoarthritis of knee Gallstone pancreatitis Palpitations Fibromyalgia Depression Glaucoma HTN (hypertension) Surgical History H/O colonoscopy History of tubal ligation Hx of carpal tunnel repair Hx of cholecystectomy Hx of knee surgery Family History Father Kidney disease Mother CVD (cardiovascular disease) Colon cancer Social History Alcohol intake: never Patient Tobacco Use Status: Current everyday Tobacco user Cigarette Packs Per Day: 0.5 Cigarettes Per Day: 10 Years Smoked: 30 Female Reproductive History Menstrual Age of Menarche: 9 Review of Systems Const Details: Review of Systems Constitutional: Denies fever, chills, weight loss ENT: Denies vision changes, eye pain or eye redness, dental caries, dry mouth GI: Denies nausea, vomiting, diarrhea, abdominal pain, change in BM Pulm: Denies SOB, PRASAD, hemoptysis, wheezing Cards: Denies chest pain, palpitations Skin: Denies Raynaud's, rash, nail changes, photosensitivity, TECHNICAL CABLE JOINTER: Denies headaches, weakness, paresthesias, recurrent falls MSK: as per HPI All other systems reviewed and are unremarkable except noted above Physical Exam Vital Signs: Last Vital Signs Pulse 85 03/07/25 08:40 BP 132/84 11/14/24 08:40 Pulse Ox 98 11/14/24 08:40 Oxygen Delivery Method Room Air 11/14/24 08:40 BMI result Body Mass Index 36.3 Vital signs reviewed Physical Examination CONSTITUITIONAL Patient alert and cooperative. Well appearing. Difficulty rising from chair likely due to pain CHEST/RESPIRATORY SYSTEM Normal respiratory effort and able to speak in complete sentences. ?Clear to auscultation bilaterally. ?No crackles, rales, rhonchi, wheezes heard. CARDIAC SYSTEM Regular rate and rhythm. ?S1 and S2 heard no murmurs. ?Radial pulses intact bilaterally MSK Hands: ?Good furniture duster strength bilaterally. No deformities noted. ?No synovitis noted to the MCPs, PIPs or DIPs. ?No tenderness to palpation of these joints. Wrists: ?Full range of motion at the wrists without pain. ?No tenderness to palpation or synovitis noted to the wrists. Elbows: Full range of motion without pain. No tenderness, weakness, swelling, increased warmth or erythema. Shoulders: Decreased range of motion secondary to pain/muscle spasm in her trapezius. No tenderness, weakness, swelling, increased warmth or erythema. Hip bursa: Bilateral Tenderness to palpation Knees: ?Full range of motion. ?No tenderness, swelling, increased warmth or erythema.? Bilateral crepitations Ankles: Full range of motion. ?No tenderness, swelling, increased warmth or erythema.? Feet: ?Negative squeeze test. ?No tenderness to palpation or swelling of the MTPs. Tender points:? Tenderness to palpation of the bilateral trapezius, supraspinatus, greater trochanters, anterior costochondral junctions, bilateral gluteal areas, bilateral suboccipital muscle insertions. Patient is exquisitely tender to palpation of all of the paraspinal muscles as well SKIN Skin intact without rashes. Office Procedures AMB Joint Injection/Aspiration Joint Injection/Aspiration Details: Procedure was explained to the patient and consent was obtained. ? The area of interest was identified and confirmed with patient. ?This was subsequently cleaned with chlorhexidine x3. ? The area was then anesthetized using ethyl chloride spray. 2 cc Euflexxa was injected without issue. ?Minimal to no bleeding. ?Patient tolerated procedure. Primary Site: right knee Prep: site was prepped using aseptic technique and ethochloride spray was applied Injected: other (2 cc of Euflexxa) Approach Used: anterior Procedure: The patient tolerated the procedure well Coding 08783 - Large joint Procedure code (CPT) selection complete AMB Joint Injection/Aspiration Joint Injection/Aspiration Details: Procedure was explained to the patient and consent was obtained. ? The area of interest was identified and confirmed with patient. ?This was subsequently cleaned with chlorhexidine x3. ? The area was then anesthetized using ethyl chloride spray. 2 cc Euflexxa was injected without issue. ?Minimal to no bleeding. ?Patient tolerated procedure. Primary Site: left knee Prep: site was prepped using aseptic technique and ethochloride spray was applied Injected: other (2 cc Euflexxa) Approach Used: anterior Procedure: The patient tolerated the procedure well Coding 09549 - Large joint Procedure code (CPT) selection complete Office Meds Euflexxa 10 mg/mL (mw 2.4-3.6 million) intra-articular syringe Performing Provider: Brigid West MD Performing Location: [facility] Rheumatology Administered by: Brigid West MD on 11/14/24 10:04 Dose Route Admin Location Dispensed Lot Number Expiration Date [facility] [employer] 20 mg intra-articular right knee 2 mL [id number] 08/23/25 [address]-3 [employer] Euflexxa 10 mg/mL (mw 2.4-3.6 million) intra-articular syringe Performing Provider: Brigid West MD Performing Location: [facility] Rheumatology Administered by: Brigid West MD on 11/14/24 10:04 Dose Route Admin Location Dispensed Lot Number Expiration Date [facility] [employer] 20 mg intra-articular left knee 2 mL [id number] 08/23/25 [address]-7 [employer] Results Reviewed Results Reviewed: XR Bilateral Knees 09/2024 FINDINGS (Right): There is mild loss of medial and patellofemoral compartment joint space. There is no visible acute fracture or dislocation. There is anterior superior patellar enthesophyte. No joint effusion seen FINDINGS (Left): On AP bilateral knee standing there is loss of medial and lateral compartment joint spaces in both knees. There is loss of lateral femoral compartment joint space with anterior superior an lateral patellar enthesophytes. No visible acute fracture, dislocation or subluxation seen. No loose bodies or soft tissue swelling. Assessment & Plan Assessment & Plan (1) Bilateral primary osteoarthritis of knee: Code(s): M17.0 - Bilateral primary osteoarthritis of knee Category: Medical Plan: #Bilateral Knee OA Patient is a 53-year-old female with bilateral knee OA. Previously failed topical diclofenac and physical therapy. Here today for her 3rd dose of Euflexxa injections Plan - s/p 3rd dose Euflexxa - RTC 6 months - Eval for Durolane injections at that time (2) Fibromyalgia: Code(s): M79.7 - Fibromyalgia Category: Medical Plan: #Fibromyalgia Patient with fibromyalgia but continues to have widespread pain. Has tried Lyrica, gabapentin, Cymbalta, amitriptyline and her insurance did not approve Savella. Now has also failed baclofen. Discussed at length with patient about fibromyalgia and the chronicity of the disease. Plan - Tramadol 50mg tid prn - Daily stretches Plan I spent 20 minutes reviewing the record and labs, seeing the patient, discussing the treatment plan and documenting in the medical record ? Orders: Orders AMB Joint Injection/Aspiration Today M17.0 - Bilateral primary osteoarthritis of knee AMB Joint Injection/Aspiration Today M17.0 - Bilateral primary osteoarthritis of knee Medications: New Euflexxa (sodium hyaluronate (viscosup)) 20 mg (2 mL) intra-articular ONCE 2 mL 0RF NS M17.0 - Bilateral primary osteoarthritis of knee Euflexxa (sodium hyaluronate (viscosup)) 20 mg (2 mL) intra-articular ONCE 2 mL 0RF NS M17.0 - Bilateral primary osteoarthritis of knee Refilled tramadol 50 mg PO TID 30 days PRN 90 tabs 5RF pain M17.0 - Bilateral primary osteoarthritis of knee, M79.7 - Fibromyalgia Coding Level of Care Code Est Pt Level 3 (92353) Complex EM visit Add On G2211 Diagnoses Bilateral primary osteoarthritis of knee M17.0 Fibromyalgia M79.7 CPT Codes Coding - 87907 Large joint: 06792 - Large joint ([id number]) Coding - 59379 Large joint: 13410 - Large joint ([id number])
[2024-11-14 08:40] VITALS: BP 132/84; PULSE 85; O2SAT 98; BMI 36.3
== END 2024-11-14 09:01 | disposition home or self-care (01) ==
PROVIDERS: PCP Internal Medicine; Visit Provider Student in an Organized Health Care Education/Training Program
DX: M17.0 Bilateral primary osteoarthritis of knee (principal); M79.7 Fibromyalgia
CPT/HCPCS: 20610; 99213

== ENCOUNTER → 2024-11-14 08:33 | Outpatient (BNVA) | payer MEDICAID, SELFPAY | PROVIDERS: PCP Internal Medicine; Visit Provider Student in an Organized Health Care Education/Training Program | DX: M17.0 Bilateral primary osteoarthritis of knee (principal); M79.7 Fibromyalgia | CPT/HCPCS: 20610; 99212; J7323 ==

== ENCOUNTER 2024-11-27 11:35 | Outpatient (AMB) | payer MEDICAID, SELFPAY ==
--- NOTE | 2024-11-27 11:47 | A.OFFVIS_ITS ---
Vital Signs 11/27/24 11:48 Height 5 ft 5 in Weight 218 lb BMI 36.3 Intake Visit Reasons: outbreak follow up Vallez Filter Operator Required: Yes Vallez Filter Operator Language: Clinical Neuropsychologist Services: Vallez Filter Operator Present (In person) Vallez Filter Operator Name: LOUIS Rush Information Interpreted: non-clinical & clinical Care Manager Cna: Care Manager Cna Present (LOUIS Rush) Accompanied by: Self / Same As Patient Allergies metronidazole Allergy (Severe, Verified 11/27/24 12:02) vomiting Penicillins Allergy (Mild, Verified 11/27/24 12:02) VAGINAL FUNGUS INFECTION lisinopril [LISINOPRIL] Allergy (Unknown, Verified 11/27/24 12:02) COUGH verapamil Allergy (Unknown, Verified 11/27/24 12:02) unknown Is last menstrual period known: No Post menopausal: Yes Patient : No HPI Comments Details: Presenting for follow-up herpes outbreak doing well with no complaints. The patient took Valtrex 500 mg p.o. b.i.d. for 3 days and outbreaks has resolved completely the patient is complaining of vaginal odor no other associated symptoms. [facility] Medical History Cataract, right eye Bilateral primary osteoarthritis of knee Gallstone pancreatitis Palpitations Fibromyalgia Depression Glaucoma HTN (hypertension) Surgical History H/O colonoscopy History of tubal ligation Hx of carpal tunnel repair Hx of cholecystectomy Hx of knee surgery Family History Father Kidney disease Mother CVD (cardiovascular disease) Colon cancer Social History Alcohol intake: never Patient Tobacco Use Status: Current everyday Tobacco user Cigarette Packs Per Day: 0.5 Cigarettes Per Day: 10 Years Smoked: 30 Patient : No Female Reproductive History Menstrual Age of Menarche: 9 Review of Systems Const All systems reviewed & are unremarkable except as noted in HPI and below Physical Exam Vital Signs: BMI result Body Mass Index 36.3 General: Yes no CVA tenderness External Female Exam: normal external appearance and normal appearance of the urethra Speculum Exam - Vagina: normal appearance of the vagina, normal palpation, no lesions and no masses Speculum Exam - Cervix: normal appearance of the cervix, normal palpation, no lesions, no masses and nontender Bimanual exam- vagina & uterus: normal bimanual exam, normal palpation, uterine size normal, normal palpation, uterine shape normal, No Cervical tenderness present and non-tender Bimanual Exam- Adnexa, other: normal adnexae Back/Spine/Pelvis Back: no CVA tenderness Assessment & Plan Assessment & Plan (1) Bacterial vaginosis: Code(s): N76.0 - Acute vaginitis; B96.89 - Other specified bacterial agents as the cause of diseases classified elsewhere Category: Medical Plan: GC and chlamydia cultures with BV panel taken. Per CDC recommendation, HepBs Ag, HIV, RPR, Hep C Ab were done few weeks ago no were negative. Will treat with clindamycin cream 2% 5 g applicator intravaginally daily at bedtime for 7 days, Instructions given to the patient to refrain from sexual activity or to use condoms consistently and correctly during the BV treatment regimen, not to douch, it might increase the risk for relapse, and to call if symptoms persist or recur. (2) Herpes genitalia: Code(s): A60.00 - Herpesviral infection of urogenital system, unspecified Category: Medical Plan: Valtrex 500 mg p.o. b.i.d. for 3 days p.r.n. outbreaks refill sent to the patient's pharmacy. Instructions given the patient to start the treatment as soon as early symptoms. All questions answered, the patient verbalized understanding and agreed with the plan Medications: New clindamycin phosphate 2% 5 g daily intravaginally at bedtime 1 appful vaginal BEDTIME 7 days 40 grams 0RF Refilled valacyclovir 500 mg PO BID 3 days 6 tabs 6RF Coding Level of Care Code Est Pt Level 3 (62652) Diagnoses Bacterial vaginosis N76.0; B96.89 Herpes genitalia A60.00
[2024-11-27 11:48] VITALS: BMI 36.3
--- OUTSIDE RECORDS SUMMARY | 2024-11-27 13:57 | XMS_ITS | Encounter Summary ---
Author Organization [employer] [facility] Address [address] [place] [address] 7 [place] [address] Care Team Providers Care Technology Lead Name Role Phone Mychal Fields MD Primary Care Provide r Hima Fam Unavailable Unavailable Reason for Visit * Reason Onset Date Comments ER Follow-up 11/06/2024 Nurse Triage 11/06/2024 Encounter Details Date Type Department Care Team ([facility] st Contact Info) Description 11/06/2024 Telephone [facility] [address] [place], [place] [phone] Mychal Fields MD [address] [place], [place] [phone] ER Follow-up; Nurse Triage Social History Tobacco Use Types [...] encounter Miscellaneous Notes * Telephone Encounter - Mireya Mchugh RN - 11/06/2024 10:54 AM EST TC placed to pt and LVM to call back the office in regards to scheduling appt with PCP * Telephone Encounter - Mali Joy LPN - 11/06/2024 8:38 AM EST Triage call returned with BLS # [phone] Rita. No contact for triage will attempt call again in several minutes.Patient reached with BLS Dennis [phone]. Patient reports resolved vomiting and diarrhea from ED visit on 10/27/24 patient continues with some epigastric 'burning' sensation at times. Has maintained a light diet and has not tried any OTC antacids. Patient has used zofran as previously ED ordered and is asking for refill. Patient advised of [facility] hours for today for evaluation of continued nausea post GI virus. Patient verbalized understanding. Patient goes on to report that she was due to have second eye surgery today and it was cancelled due to noted bruise of arm. Patient advised that she will need PCP clearance to proceed. Bruise is apparently from missed IV access last week when first eye surgery was completed. Disposition reviewed NO PCP appts available for triage scheduling.Patient again reminded [facility] hours and availability provided for patient evaluation. Triage nurse informed the patient may have a wait of 1-2 hours because Walk In Clinic may have delays due to patient volume or symptom acuity. Insurance verified as active. Reviewed with patient home care recommendations and reasons to call back. Pt verbalized understanding and agrees Team tasked to follow with patient for PCP appt. For surgical clearance concerns. Multiple (2) protocols were used on this call. Disposition for Call: Go to Urgent Care Now Protocol Used: Nausea (Adult) Protocol-Based Disposition: See in Office or Video Visit within 3 Days Override (Final) Disposition: Go to Urgent Care Now Override Reason: No appointments available Video visit offer not recorded Positive Triage Question: * Nausea lasts > 1 week * All higher-acuity triage questions were negative Care Advice Discussed: * Clear Fluids * Solid Foods * Reasons To Call Back - Nausea lasts over 1 week - You become worse Protocol Used: IV Site and Other Symptoms (Adult) Protocol-Based Disposition: Callback or Video Visit by PCP Today Video visit not offered Positive Triage Question: * Caller has NON-URGENT question and triager unable to answer question * All higher-acuity triage questions were negative Care Advice Discussed: * Reasons To Call Back - You become worse * Telephone Encounter - Lucia Delgado - 11/06/2024 8:20 AM EST Patient calling to report ED visit on : Date: 10/27 [place] [facility] Seen for: Abdominal Pain Symptomatic Yes (nausea) *if yes message should go to Triage Pt states has a stomach bacteria. Patient advised will forward to team nurse for follow up [phone] Greenlandic documented in this encounter Plan of Treatment Upcoming Encounters Date Type Department Care Team (Late st Contact Info) Description 12/04/2024 10:30 AM EDT Office Visit [facility] [address] [place], [place] [phone] Cinthya Dover ANP [address] [place], [place] [phone] 12/23/2024 1:00 PM EDT Office Visit [facility] [address] [place], [place] [phone] Mychal Fields MD [address] [place], [place] [phone] documented as of this encounter Visit Diagnoses Not on filedocumented in this encounter Additional Health Concerns Assessment Noted Time PHQ-9 Depression Total Score: 6 09/16/19 25 10:06 AM EST documented as of this encounter Care Teams Technology Lead Relationship Specialty Start Date End Date Mychal Fields MD [address] [place] [phone] PCP - General Internal Medicine 04/30/14 Hima Fam FNP [address] [place] [id number] Nurse Practitioner Family Medicine 08/01/23 documented as of this encounter
--- OUTSIDE RECORDS SUMMARY | 2024-11-27 13:57 | XMS_ITS | Encounter Summary ---
Author Organization [employer] Address [address] [facility] 7t [place] [address] Care Team Providers Care End Polisher Name Role Phone Mychal Fields MD Primary Care Provide r Hima Fam Unavailable Unavailable Reason for Visit * Reason Comments Med Refill Encounter Details Date Type Department Care Team (Late st Contact Info) Description 11/10/[address] [facility] MEDICINE [address] [place] [address] Tre Izaguirre MD [address] [place] [address] Essential hypertension Social History Tobacco Use Types Packs/Day Years [...] Description 12/04/2024 10:30 AM EDT Office Visit [facility] MEDICINE [address] [place] [address] Cinthya Dover ANP 230 [place] [address] 12/23/2024 1:00 PM EDT Office Visit [facility] MEDICINE [address] [place] [address] Mychal Fields MD [address] [place] [address] documented as of this encounter Visit Diagnoses Diagnosis Essential hypertension Unspecified essential hypertension documented in this encounter Additional Health Concerns Assessment Noted Time PHQ-9 Depression Total Score: 6 09/16/19 25 10:06 AM EST documented as of this encounter Care Teams End Polisher Relationship Specialty Start Date End Date Mychal Fields MD [address] [place] [address] PCP - General Internal Medicine 04/30/14 Hima Fam FNP [address] [place] [address] Nurse Practitioner Family Medicine 08/01/23 documented as of this encounter
--- OUTSIDE RECORDS SUMMARY | 2024-11-27 13:57 | XMS_ITS | Encounter Summary ---
Author Organization [employer] Address [address] [facility] 7t [place] [address] Care Team Providers Care Senior Oracle Database Administrator Name Role Phone Mychal Fields MD Primary Care Provide r Hima Fam Unavailable Unavailable Encounter Details Date Type Department Care Team (Late st Contact Info) Description 11/05/2024 Orders Only GENERIC EXTERNAL DATA DEPARTMENT Provider, [...] Description 12/04/2024 10:30 AM EDT Office Visit [facility] MEDICINE [address] [place] [address] Cinthya Dover ANP [address] [place] [address] 12/23/2024 1:00 PM EDT Office Visit [facility] MED[facility] [address] [place] [address] Mychal Fields MD [address] [place] [address] documented as of this encounter Procedures Procedure Name Priority Date/Time Associated Diagnosis Comments SYPHILIS SCREEN Routine 11/05/2024 3:21 PM EST HEPATITIS C ANTIBODY Routine 11/05/2024 3:21 PM EST HEPATITIS B SURFACE ANTIGEN, EIA Routine 11/05/2024 3:21 PM EST HIV 1/2 ANTIGEN/ANTIBODY, FOURTH GENERATION W/RFL Routine 11/05/2024 3:21 PM EST documented in this encounter Results * Hepatitis B surface antigen, EIA (11/05/2024 3:21 PM EST) Hepatitis B Surface Ag Negative Negative [facility] 11/05/2024 3:21 PM EST 11/05/2024 3:21 PM EST Generic External Data Provider LAB BLOOD ORDERAB LES Final Result Performing Organization Address [facility] Co de Phone Number [facility] [address] [place] [address] [phone] * HIV-1/2 Antigen and Antibodies, Fourth Generation, with Reflexes (11/05/2024 3:21 PM EST) Pathologist [facility] HIV AB/AG Nonreactive Nonreactive [facility] Comment:HIV-1 p24 Ag and/or HIV-1/HIV-2 Ab not detected.A test result that is nonreactive does not exclude thepossibility of exposure to or infection with HIV-1 and/orHIV-2. Nonreactive results in this assay for individualswith prior exposure to HIV-1 and/or HIV-2 may be due toantigen and antibody levels that are below the limit ofdetection of this assay.The [employer] HIV Ag/Ab Combo assay result andsupplemental assay results should be interpreted inconjunction with the patient's clinical presentation,history and other laboratory results. If the results areinconsistent with clinical evidence, additional testing issuggested to confirm the result. 11/05/2024 3:21 PM EST 11/05/2024 3:21 PM EST us Generic External Data Provider LAB BLOOD ORDERAB LES Final Result Performing Organization Address [facility]/ZIP Co de Phone Number [facility] [address] [place] [address] [phone] * Hepatitis C Ab (11/05/2024 3:21 PM EST) Pathologist [facility] Hepatitis C Antibody Nonreactive Nonreactive [facility] Comment:Antibodies to HCV no t detected; does not exclude early acuteHCV infection. 11/05/2024 3:21 PM EST 11/05/2024 3:21 PM EST us Generic External Data Provider LAB BLOOD ORDERAB LES Final Result Performing Organization Address [facility] Co de Phone Number [facility] [address] [place] [phone] * Syphilis Screen (11/05/2024 3:21 PM EST) Syphilis Screen Nonreactive Nonreactive [facility] 11/05/2024 3:21 PM EST 11/05/2024 3:21 PM EST Generic External Data Provider LAB BLOOD ORDERAB LES Final Result Performing Organization Address [facility] Phone Number [facility] [address] [place] [phone] documented in this encounter Visit Diagnoses Not on filedocumented in this encounter Additional Health Concerns Assessment Noted Time PHQ-9 Depression Total Score: 6 09/16/19 25 10:06 AM EST documented as of this encounter Care Teams Senior Oracle Database Administrator Relationship Specialty Start Date End Date Mychal Fields MD [address] [place] [address] PCP - General Internal Medicine 04/30/14 Hima Fam FNP [address] [place] [address] Nurse Practitioner Family Medicine 08/01/23 documented as of this encounter
--- OUTSIDE RECORDS SUMMARY | 2024-11-27 13:57 | XMS_ITS | Data Portability ---
Author Organization [place] - [facility], Allergy Address [address] [address] Care Team Providers Care Director Of Regulatory Affairs Name Role Phone GIACOMO MARX Primary Care Provider GIACOMO MARX Referring Provider Assessment Encounter Date Assessment Date Assessment LastModified by Organization Details LastModified Time 04/25/2024 04/25/2024 53-year-old female presents following DL with biopsy. Pathology was reviewed to be benign. 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 Overall reassurance was provided. follow up as scheduled. [email or web address] Not available 04/28/2024 15:04:21 Plan of Treatment [...] observ ation record ed. [email or web address] [facility] [place] [address] [facility] [address], [place], [address], 02/25/2024 09:12:35 03/31/20 24 03/31/2024 US, neck, soft tissu e No observ ation record ed. [facility] [address] [facility], [place], [address], 04/11/2024 16:05:21 04/28/20 24 04/10/2024 clini bertha photo * No observ ation record ed. [email or web address] Not Available 17:00:02 04/29/20 24 05/08/2023 imagi ng/di agnos tic resul t No observ ation record ed. [email or web address] Not Available 21:42:28 Result Notes None recorded. Problems Name Problem SNOMED Code Status Onset Date Resolution Date Notes Provider Name and Address Organization Details Recorded Time Thyroid nodule 169111036 Active 2023 MADHU REYES MD [address] [facility] [address], [place], [address] , [place] - [facility] 4 16:36:38 Hypertrop hy of tonsils AND adenoids 54138894 Active 2023 MADHU REYES MD [address] [facility] [address], [place], [address] , [place] - [facility] 4 16:36:47 Hypertrop hy of lingual tonsil 222141684 Active 2023 MADHU REYES MD [address] [facility],[place] [address], [place], [address] , [place] - [facility] 4 16:36:52 Non-toxic uninodula r goiter 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 2023 Nontoxic single thyroid nodule; Note: Date Diagnosed : 01/18/2024 11:58 AM (E04.1) Not Available [facility] 4 02:45:01 Mass of neck 190092499 Active 2023 Localized swelling, mass and lump, neck; Note: Date Diagnosed : 11/08/2023 11:56 AM (R22.1) Not Available [facility] 4 02:45:02 Neck swelling 789571909 Active 2023 Localized swelling, mass and lump, neck; Note: Date Diagnosed : 11/08/2023 11:56 AM (R22.1) Not Available [facility] 4 02:45:02 Neck pain 00213572 Active 2023 Cervicalg ia; Note: Date Diagnosed : 11/08/2023 11:56 AM (M54.2) Not Available [facility] 4 02:45:02 Dysphagia 33204295 Active 2023 Dysphagia , unspecifi ed; Note: Date Diagnosed : 11/08/2023 11:56 AM (R13.10) Not Available [facility] 4 02:45:05 Obstructi ve sleep apnea of adult 93636333519 03 Active 2023 MADHU REYES MD [address] [facility] [address], [place], [address] , [place] - [facility] 4 08:48:15 Seasonal allergic rhinitis 028650065 Active 2023 MADHU REYES MD [address] [facility] [address], [place], [address] , [place] - [facility] 4 08:52:06 Allergic rhinitis 09011237 Active 2023 MADHU REYES MD [address] [facility],[place] [address], [place], [address] , [place] - [facility] 4 08:52:17 Non-aller gic rhinitis 04402284941 1 Active 2023 MADHU REYES MD [address] [facility],[place] [address], [place], [address] , [facility] - [facility] 4 08:52:17 Problem Notes None recorded. Procedures Surgical History Date Name Laterality Status Provider Name and Address Organization Details Recorded Time 4 LARYNGOSCOPY, DIRECT OPERATIVE WITH OPERATING MICROSCOPE OR TELESCOPE WITH BIOPSY (SURG) completed Paulo Faria [place] - [facility] 04/14/2024 09:38:40 4 FFL_RE completed MADHU REYES MD [address] [facility],[place] [address], [place], [address], [facility] - [facility] 03/18/2024 17:33:49 Imaging Results Imaging Date Name Status LastModified by Organiz ation Details LastModified Time 02/19/2024 US, thyroid completed [email or web address] [facility] [place] [address] [facility] [address], [place], [address], 02/25/2024 09:12:35 03/31/2024 US, neck, soft tissue completed [facility] (Imaging) [address] [place], [address], 04/11/2024 16:05:21 04/10/2024 clinical photo* completed [email or web address] [...] % eye drops active Medicatio n ID: [id number] Br and Name: latanopro st Send Method: E-Prescri bed Subs Allowed: subs OK Specia l Instructi on: PUT 1 DROP INTO BOTH EYES AT BEDTIME M edication GenericNa me: latanopro st Not Available Not Available Not Available terconazol e 0.4 % vaginal cream active Medicatio n ID: [id number] Br and Name: terconazo le Send Method: [...] 8.6 mg tablet active Medicatio n ID: [id number] Br and Name: senna Sen d Method: [...] 500 mg tablet active Medicatio n ID: [id number] Br and Name: valacyclo vir Send Method: [...] 50 mg tablet active Medicatio n ID: [id number] Br and Name: tramadol Send Method: E-Prescri bed Subs Allowed: subs OK Specia l Instructi on: TAKE 1 TABLET BY MOUTH EVERY 6 HOURS NEEDED FOR PAIN Medi cationGen ericName: tramadol Not Available Not Available Not Available ketorolac 0.5 % eye drops active Medicatio n ID: [id number] Br and Name: ketorolac Send Method: E-Prescri [...] 20 mg tablet active Medicatio n ID: [id number] Br and Name: dicyclomi ne Send Method: [...] 10 mg tablet active Medicatio n ID: [id number] Br and Name: buspirone Send Method: E-Prescri [...] 100 mg capsule active Medicatio n ID: [id number] Br and Name: gabapenti n Send Method: [...] 1 mg tablet active Medicatio n ID: [id number] Br and Name: varenicli ne Send Method: E-Prescri bed Subs Allowed: subs OK Specia l Instructi on: TAKE 1 TABLET BY MOUTH TWICE A DAY WITH GLASS OF WATER AFTER MEALS Med icationGe nericName : varenicli ne Not Available Not Available Not Available diclofenac 1 % topical gel active Medicatio n ID: [id number] Br and Name: diclofena c sodium Se [...] capsule,de layed release active Medicatio n ID: [id number] Br and Name: Creon Sen d Method: E-Prescri bed Subs Allowed: subs OK Specia l Instructi on: TAKE 1 CAPSULE BY MOUTH 4 TIMES A DAY. ADMINISTE R WITH MEALS AND OR SNACKS Me dicationG enericNam e: Creon Not Available Not Available Not Available blood pressure test kit-large cuff active Medicatio n ID: [id number] Br and Name: blood pressure test kit-large Send Method: E-Prescri bed Subs Allowed: subs OK Specia l Instructi on: USE TO CHECK BLOOD PRESSURE ONCE DAILY IN THE MORNING M edication GenericNa me: blood pressure test kit-large Not Available Not Available Not Available Dexilant 60 mg capsule, delayed release active Medicatio n ID: [id number] Br and Name: Dexilant Send Method: E-Prescri [...] Updated DateTime 03/18/2024 160.02 cm 36.8 kg/m2 96724.21 g Kodi Soni [place] - [facility] 03/18/2024 16:16:00 Date Recorded Body height Body mass index (BMI) Body weight Provider Name and Address Organization Details Last Updated DateTime 04/25/2024 160.02 cm 36.8 kg/m2 54409.21 g Janeth Castro [facility] 04/25/2024 15:19:15 Date Recorded Body height Body mass index (BMI) Body weight Provider Name and Address Organization Details Last Updated DateTime 07/30/2024 160.02 cm 36.8 kg/m2 00661.21 g Marley Santamaria [facility] 07/30/2024 08:31:21 Social History None recorded. [...] [id number] MADHU REYES MD [facility] [address] [address] 03/18/2024 15:41:26 03/18/2024 17:01:09 Thyroid nodule 636673042 E04.1 I recommend a US guided FNA of the thyroid nodule. She will f/u to review. Hypertroph y of tonsils AND adenoids 93058726 J35.3 hypertroph y of Waldeyer's ring. lingual tonsil biopsy is less morbid to evaluate for lymphoma. see below. Hypertroph y of lingual tonsil 666273928 J35.3 I recommend direct laryngosco py with [...] We will schedule surgery mutually convenient time. [id number] MADHU REYES MD [facility] [address] [place] [address] 04/25/2024 15:12:06 04/30/2024 07:57:22 Hypertrophy of lingual tonsil 394046376 J35.3 Hypertroph y of tonsils AND adenoids 40243859 J35.3 Neck pain 29587977 M54.2 [id number] MADHU REYES MD [facility] [address] [place] [address] 07/30/2024 08:28:17 07/30/2024 08:55:15 Hypertrophy of lingual tonsil 347135471 J35.3 Biopsies negative. Gave reassuranc e. Continue observatio n. Deferred laryngosoc py today. Obstructiv e sleep apnea of adult 5413948156 103 G47.33 Agree with starting CPAP which is in process. Thyroid nodule 806576340 E04.1 Recommend repeat thyroid US at [facility] after next visit in 6 months. Seasonal a llergic rhinitis 707136968 J30.2 Exam and history are consistent with allergic rhinitis. We will obtain allergy testing to clarify the extent of allergy with f/u to review. Allergic rhinitis 966357 04 J30.9 Non-allergic rhinitis 31 39649426 01 J31.0 Health Concerns Section Related Observation LastModified by Organization Detai ls LastModified Time None Recorded Concern Status LastModified by Organization Details LastModified Time None Recorded Advance Directives Directive None Recorded Payers Encounter Date Sequence Insurance Name Policy Number Policy Tompkins Covered Member ID Tompkins Member ID Guarantor Name 03/18/2024 1 [place] Rodas [id number] Elaine Rodas 04/25/2024 1 [place] [facility] Elaine Rodas [id number] Elaine Rodas 07/30/2024 1 [place] [facility] Elaine Rodas [id number] Elaine Rodas Notes Date Note Type Note [...] by her other doctors. MADHU REYES MD [address] [place] [address], [address], [place] - [facility] 03/18/2024 17:45:03 04/25/2024 text/html 53-year-old fema nidia presents following DL with biopsy. She continues to have mild sore throat but no bleeding. Biopsy was done due to hypertrophy of Waldeyer's ring on imaging. MADHU REYES MD [address] [place] [address],[address], [address], [place] - [facility] 04/29/2024 10:01:40 07/30/2024 text/html Hx of hypertroph [...] with marginal benefit. MADHU REYES MD [address] [place] [address], [place], [address], [place] - [facility] 07/30/2024 08:52:32 OBGyn Episode No OBEpisode recorded.
--- OUTSIDE RECORDS SUMMARY | 2024-11-27 13:57 | XMS_ITS | Encounter Summary ---
Author Organization [employer] Address [address] [place] [address] 7t [place] [address] Care Team Providers Care Insole Reinforcer Name Role Phone Mychal Fields MD Primary Care Provide r Hima Fam Unavailable Unavailable Encounter Details Date Type Department Care Team (Late st Contact Info) Description 12/05/2022 Orders Only [facility] [address] [place] [address] Veda Isabel LPN Social History Tobacco Use [...] Description 12/04/2024 10:30 AM EDT Office Visit [facility] [address] [place] [address] [phone] Cinthya Dover ANP [address] [place], [place] [phone] 12/23/2024 1:00 PM EDT Office Visit [facility] [address] [place] [address] [phone] Mychal Fields MD [address] [place] [address] documented as of this encounter Visit Diagnoses Not on filedocumented in this encounter Additional Health Concerns Assessment Noted Time PHQ-9 Depression Total Score: 7 10/09/19 23 4:00 PM EST documented as of this encounter Care Teams Insole Reinforcer Relationship Specialty Start Date End Date Mychal Fields MD [address] [place] [address] PCP - General Internal Medicine 04/30/14 Hima Fam FNP [address] [place] [address] Nurse Practitioner Family Medicine 08/01/23 documented as of this encounter
--- OUTSIDE RECORDS SUMMARY | 2024-11-27 13:57 | XMS_ITS | Encounter Summary ---
Author Organization [employer] Address [address] [place] [address] 7 [place] [address] Care Team Providers Care Grout Machine Tender Name Role Phone Mychal Fields MD Primary Care Provide r Hima Fam Unavailable Unavailable Reason for Visit * Reason Onset Date Comments PRE OP 11/10/2024 Encounter Details Date Type Department Care Team ([facility] st Contact Info) Description 11/10/[address] [facility] [address] [place] [address] Mychal Fields MD [address] [place] [address] PRE OP Social History Tobacco Use Types [...] encounter Miscellaneous Notes * Telephone Encounter - Adela Gomez - 11/14/2024 9:38 AM EST Pt agreed to Pre-op on 12/04/24 at 10:30 with [facility]. * Telephone Encounter - Lucia Delgado - 11/11/2024 1:33 PM EST Tc from pt stating surgical procedure being done: Cataract Left Eye. * Telephone Encounter - Lucia Delgado - 11/10/2024 1:04 PM EST Date of Surgery: December 12 Surgical procedure being done: Cataract Right Eye Type of anesthesia: MAC Lab needed: No EKG: No Surgeon's name: Dino Caruso Facility name: [facility] Surgeon's office number: [phone] Surgeon's office fax number: [phone] Contact name (person you spoke with): Karon Last office note from surgeon requested: Yes Send Message to Adela Gomez and Topher Ta Pt had a previous appt completed but due to a visit to the ED needs a new evaluation before the surgery process. documented in this encounter Plan of Treatment Upcoming Encounters Date Type Department Care Team (Late st Contact Info) Description 12/04/2024 10:30 AM EDT Office Visit [facility] [address] [place] [address] Cinthya Dover ANP [address] [place], [place] [phone] 12/23/2024 1:00 PM EDT Office Visit [facility] [address] [place] [address] Mychal Fields MD [address] [place] [address] documented as of this encounter Visit Diagnoses Not on filedocumented in this encounter Additional Health Concerns Assessment Noted Time PHQ-9 Depression Total Score: 6 09/16/19 25 10:06 AM EST documented as of this encounter Care Teams Grout Machine Tender Relationship Specialty Start Date End Date Mychal Fields MD [address] [place] [address] PCP - General Internal Medicine 04/30/14 Hima Fam FNP [address] [place] [address] Nurse Practitioner Family Medicine 08/01/23 documented as of this encounter
--- OUTSIDE RECORDS SUMMARY | 2024-11-27 13:57 | XMS_ITS | Encounter Summary ---
Author Organization [employer] Address [address] [place] [address] [address] [facility] [place] [address] Care Team Providers Care Post Office Clerk Name Role Phone Mychal Fields MD Primary Care Provide r Hima Fam Unavailable Unavailable Encounter Details Date Type Department Care Team (Late st Contact Info) Description 12/04/2022 Telephone [facility] [address] [place] [address] Myhcal Fields MD [address] [place] [address] [phone] Social History Tobacco Use Types Packs/Day Years [...] Description 12/04/2024 10:30 AM EDT Office Visit [facility] [address] [place] [address] [phone] Cinthya Dover ANP [address] [place] [address] 12/23/2024 1:00 PM EDT Office Visit [facility] [address] [place] [address] Mychal Fields MD [address] [place] [address] documented as of this encounter Visit Diagnoses Not on filedocumented in this encounter Additional Health Concerns Assessment Noted Time PHQ-9 Depression Total Score: 7 10/09/19 23 4:00 PM EST documented as of this encounter Care Teams Post Office Clerk Relationship Specialty Start Date End Date Mychal Fields MD [address] [place] [address] PCP - General Internal Medicine 04/30/14 Hima Fam FNP [address] [place] [address] Nurse Practitioner Family Medicine 08/01/23 documented as of this encounter
--- OUTSIDE RECORDS SUMMARY | 2024-11-27 13:57 | XMS_ITS | Encounter Summary ---
Author Organization [employer] Address [address] [place] [address] 7 [place] [address] Care Team Providers Care Telemetry Monitor Name Role Phone Mychal Fields MD Primary Care Provide r Hima Fam Unavailable Unavailable Encounter Details Date Type Department Care Team (Late st Contact Info) Description 04/24/2023 Orders Only [facility] MEDICINE [address] [place] [address] [phone] Zena Harley MD [address] [place] [address] [phone] Acquired clavicle deformity (Primary Dx) Social History [...] Description 12/04/2024 10:30 AM EDT Office Visit [facility] MEDICINE [address] [place] [address] [phone] Cinthya Dover ANP [address] [place] [address] [phone] 12/23/2024 1:00 PM EDT Office Visit [facility] MEDICINE [address] [place] [address] Mychal Fields MD [address] [place] [address] Scheduled Orders Name Type Priority Associated Diagnoses [...] 4:45 PM EDT ? [facility] ?[address] ?[place] [address] ?XRay Report ? Signed ? Patient: Yumiko Rodasny ?MR#: [id number] ? : 1970 ?Acct:[id number] ? Age/Sex: 52 / F ?ADM Date: 05/14/23 ? Loc: HO.ED ? Attending Dr: ? Ordering Physician: Vee Castano BENEFITS DIRECTOR ?? Date of Service: 05/14/23 ?? Procedure(s): XR chest 2V ?? Accession Number(s): [id number] ? cc: Mychal Long MD; Vee Castano [...] 1642 ? DD/ 1624 ? TD/TT: ? Opto Mechanical Engineer: DORITA ? Procedure Note Nishi, Image - 05/14/[address] [address] XRay Report Signed Patient: Elaine RodasMR#: [id number] : 1970Acct:[id number] Age/Sex: 52 / FADM Date: 05/14/23 Loc: HO.ED Attending Dr: Ordering Physician: Vee Castano NP Date of Service: 05/14/23 Procedure(s): XR chest 2V Accession Number(s): [id number] cc: Mychal Long MD; Vee Castano NP [...] in OV> 05/14/23 1642 DD/ 1624 TD/TT: Opto Mechanical Engineer: DORITA [facility] External Provider IMG XR PROCEDURES Edited Result - Final * XR Foot 3+ Views Right (05/10/2023 11:44 AM EDT) Anatomical Region Laterality Modality Lower Extremities, Foot Right Radiogra phic Imaging 05/10/2023 11:4 4 AM EDT Narrative 05/10/2023 12:08 PM EDT ?[facility] ?[address] ?[place] [address] ?XRay Report ? Signed ? Patient: Clark,Elaine ?MR#: [id number] ? : 1970 ?Acct:[id number] ? Age/Sex: 52 / F ?ADM Date: 05/10/23 ? Loc: HO.HHCX ? Attending Dr: Mychal Long MD ? Ordering Physician: Mychal Long MD ?? Date of Service: 05/10/23 ?? Procedure(s): XR foot RT min 3V ?? Accession Number(s): [id number] ? cc: Mychal Long MD ? EXAMINATION: [...] 1205 ? DD/ 1144 ? TD/TT: ? Opto Mechanical Engineer: GR ? Procedure Note Yas Almodovar - 05/10/[address] [address] XRay Report Signed Patient: Elaine RodasMR#: [id number] : 1970Acct:[id number] Age/Sex: 52 / FADM Date: 05/10/23 Loc: HO.HHCX Attending Dr: Mychal Long MD Ordering Physician: Mychal Long MD Date of Service: 05/10/23 Procedure(s): XR foot RT min 3V Accession Number(s): [id number] cc: Mychal Long MD EXAMINATION: XR FOOT, [...] in OV> 05/10/23 1205 DD/ 1144 TD/TT: Opto Mechanical Engineer: YULISSA us Mychal Morris MD IMG XR PROCEDURES Fin al Result * FL Esophagus Barium Swallow w/Air (05/08/2023 10:19 AM EDT) Anatomical Region Laterality Modality Head, Neck Radiographic Hilda ging 05/08/2023 10:1 9 AM EDT Narrative 05/08/2023 4:35 PM EDT ? [facility] ?[address] ?[place] [address] ? Fluoroscopy Report ? Signed ? Patient: Elaine Rodas ?MR#: [id number] ? : 1970 ?Acct:[id number] ? Age/Sex: 52 / F ?ADM Date: 05/08/23 ? Loc: HO.XRAY ? Attending Dr: Mychal Long MD ? Ordering Physician: Mychal Long MD ?? Date of Service: 05/08/23 ?? Procedure(s): FL barium swallow with air ?? Accession Number(s): [id number] ? cc: Mychal Long MD ? EXAMINATION: [...] 1632 ? DD/ 1019 ? TD/TT: ? Opto Mechanical Engineer: ? Procedure Note Nishi, Yas - 05/08/[address] [address] Fluoroscopy Report Signed Patient: Elaine RodasMR#: [id number] : 1970Acct:[id number] Age/Sex: 52 / FADM Date: 05/08/23 Loc: HO.XRAY Attending Dr: Mychal Long MD Ordering Physician: Mychal Long MD Date of Service: 05/08/23 Procedure(s): FL barium swallow with air Accession Number(s): [id number] cc: Mychal Long MD EXAMINATION: XR FLUOROSCOPY [...] in OV> 05/08/23 1632 DD/ 1019 TD/TT: Opto Mechanical Engineer: us Mychal Morris MD IMG FLUOROSCOPY UBALDO HERNANDES Final Result documented in this encounter Visit Diagnoses Diagnosis 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 documented in this encounter Additional Health Concerns Assessment Noted Time PHQ-9 Depression Total Score: 8 02/09/20 11:04 AM EDT documented as of this encounter Care Teams Telemetry Monitor Relationship Specialty Start Date End Date Mychal Fields MD [address] [place] [address] PCP - General Internal Medicine 04/30/14 Hima Fam FNP [address] [place] [address] Nurse Practitioner Family Medicine 08/01/23 documented as of this encounter
--- OUTSIDE RECORDS SUMMARY | 2024-11-27 13:57 | XMS_ITS | Encounter Summary ---
Author Organization [employer] Address [address] [place] [address] 7 [place] [address] Care Team Providers Care Cro Name Role Phone Mychal Fields MD Primary Care Provide r Hima Fam Unavailable Unavailable Reason for Visit * Reason Onset Date Comments Appointment Request 12/04/2022 Encounter Details Date Type Department Care Team ([facility] Contact Info) Description 12/04/2022 Telephone [facility] MEDICINE [address] [place] [address] Mychal Fields MD [address] [place] [address] Appointment Request Social History Tobacco Use Types [...] ff/u Bp ) Please contact pt at [phone] * Telephone Encounter - Wesley Collins - 12/04/2022 2:02 PM EDT Tc from pt requesting to r/s appt on 10/19/22 ( ff/u Bp ) Please contact pt at [phone] documented in this encounter Plan of Treatment Upcoming Encounters Date Type Department Care Team (Late st Contact Info) Description 12/04/2024 10:30 AM EDT Office Visit [facility] MEDICINE [address] [place] [phone] Cinthya Dover ANP [address] [place] [phone] 12/23/2024 1:00 PM EDT Office Visit [facility] MEDICINE [address] [place] [address] Mychal Fields MD [address] [place] [address] documented as of this encounter Visit Diagnoses Not on filedocumented in this encounter Additional Health Concerns Assessment Noted Time PHQ-9 Depression Total Score: 7 10/09/19 23 4:00 PM EST documented as of this encounter Care Teams Cro Relationship Specialty Start Date End Date Mychal Fields MD [place] [address] PCP - General Internal Medicine 04/30/14 Hima Fam FNP [address] [facility] [place] [address] Nurse Practitioner Family Medicine 08/01/23 documented as of this encounter
--- OUTSIDE RECORDS SUMMARY | 2024-11-27 13:57 | XMS_ITS | Encounter Summary ---
Author Organization [employer] Address [address] [place] [address] 7t [place] [address] Care Team Providers Care Car Shakeout Operator Name Role Phone Mychal Fields MD Primary Care Provide r Hima Fam Unavailable Unavailable Reason for Visit * Reason Comments Med Refill Encounter Details Date Type Department Care Team ([facility] st Contact Info) Description 07/27/2023 Refill [facility] MEDICINE [address] [place] [address] Mychal Fields MD [address] [place], [place] [phone] Social History Tobacco Use Types Packs/Day Years [...] Description 12/04/2024 10:30 AM EDT Office Visit [facility] MEDICINE [address] [place] [phone] Cinthya Dover ANP [address] [place] [address] 12/23/2024 1:00 PM EDT Office Visit [facility] MEDICINE [address] [place] [phone] Mychal Fields MD [address] [place] [address] documented as of this encounter Visit Diagnoses Not on filedocumented in this encounter Additional Health Concerns Assessment Noted Time PHQ-9 Depression Total Score: 0 05/10/20 23 10:38 AM EDT documented as of this encounter Care Teams Car Shakeout Operator Relationship Specialty Start Date End Date Mychal Fields MD [address] [place] [address] PCP - General Internal Medicine 04/30/14 Hima Fam FNP [address] [place] [phone] Nurse Practitioner Family Medicine 08/01/23 documented as of this encounter
--- OUTSIDE RECORDS SUMMARY | 2024-11-27 13:57 | XMS_ITS | Encounter Summary ---
Author Organization [employer] Address [address] [place] [address] 7t [place] [address] Care Team Providers Care Laboratory Apparatus Glass Blower Name Role Phone Mychal Fields MD Primary Care Provide r Hima Fam Unavailable Unavailable Reason for Visit * Reason Comments Med Refill Encounter Details Date Type Department Care Team (Late st Contact Info) Description 10/06/2024 Refill [facility] MED & PEDS [address] [place] [address] Mychal Fields MD [address] [place] [address] Anxiety and depression Social History Tobacco Use [...] Description 12/04/2024 10:30 AM EDT Office Visit [facility] MEDICINE [address] [place] [phone] Cinthya Dover ANP [address] [place] [address] 12/23/2024 1:00 PM EDT Office Visit [facility] MEDICINE [address] [place] [address] Mychal Fields MD [address] [place] [address] documented as of this encounter Visit Diagnoses Diagnosis Anxiety and depression documented in this encounter Additional Health Concerns Assessment Noted Time PHQ-9 Depression Total Score: 6 09/16/19 25 10:06 AM EST documented as of this encounter Care Teams Laboratory Apparatus Glass Blower Relationship Specialty Start Date End Date Mychal Fields MD [address] [place] [phone] PCP - General Internal Medicine 8/21/14 Hima Fam FNP [address] [place] [address] Nurse Practitioner Family Medicine 08/01/23 documented as of this encounter
--- OUTSIDE RECORDS SUMMARY | 2024-11-27 13:57 | XMS_ITS | Encounter Summary ---
Author Organization [employer] Address [address] [place] [address] [place] [address] Care Team Providers Care Integrated Specialist Name Role Phone Mychal Fields MD Primary Care Provide r Hima Fam Unavailable Unavailable Reason for Visit * Reason Comments Med Change Request Encounter Details Date Type Department Care Team (Late st Contact Info) Description 10/19/2022 Refill [facility] MEDICINE [address] [place] [address] [phone] Mychal Fields MD [address] [place] [address] [phone] Fibromyalgia Social History Tobacco Use Types Packs/Day [...] Description 12/04/2024 10:30 AM EDT Office Visit [facility] MEDICINE [address] [place] [address] [phone] Cinthya Dover ANP [address] [place] [address] [phone] 12/23/2024 1:00 PM EDT Office Visit [facility] MEDICINE [address] [place] [address] Mychal Fields MD [address] [place] [address] documented as of this encounter Visit Diagnoses Diagnosis Fibromyalgia Unspecified myalgia and myositis documented in this encounter Additional Health Concerns Assessment Noted Time PHQ-9 Depression Total Score: 7 10/09/19 23 4:00 PM EST documented as of this encounter Care Teams Integrated Specialist Relationship Specialty Start Date End Date [place] [address] PCP - General Internal Medicine 04/30/14 Hima Fam FNP [address] [place] [phone] Nurse Practitioner Family Medicine 08/01/23 documented as of this encounter
--- OUTSIDE RECORDS SUMMARY | 2024-11-27 13:57 | XMS_ITS | Encounter Summary ---
Author Organization [employer] Address [address] [place] [address] 7t [place] [address] Care Team Providers Care Oracle Pl Sql Developer Name Role Phone Mychal Fields MD Primary Care Provide r Hima Fam Unavailable Unavailable Encounter Details Date Type Department Care Team (Late Contact Info) Description 06/11/2023 Orders Only [facility] MED & PEDS [address] [place], [place] [phone] Veda Isabel LPN Social History Tobacco Use [...] Department Care Team (Late Contact Info) Description 12/04/2024 10:30 AM EDT Office Visit [facility] MEDICINE [address] [place], [place] [phone] Cinthya Dover ANP [address] [place], [place] [phone] 12/23/2024 1:00 PM EDT Office Visit [facility] MEDICINE [address] [place] [address] Mychal Fields MD [address] [place] [address] documented as of this encounter Visit Diagnoses Not on filedocumented in this encounter Additional Health Concerns Assessment Noted Time PHQ-9 Depression Total Score: 0 05/10/20 23 10:38 AM EDT documented as of this encounter Care Teams Oracle Pl Sql Developer Relationship Specialty Start Date End Date Mychal Fields MD [address] [place], [place] [phone] PCP - General Internal Medicine 04/30/14 Hima Fam FNP [address] [place] [phone] Nurse Practitioner Family Medicine 08/01/23 documented as of this encounter
--- OUTSIDE RECORDS SUMMARY | 2024-11-27 13:57 | XMS_ITS | Encounter Summary ---
Author Organization [employer] Address [address] [facility] 7t [place] [address] Care Team Providers Care Gate Guard Name Role Phone Mychal Fields MD Primary Care Provide r Hima Fam Unavailable Unavailable Encounter Details Date Type Department Care Team ([facility] st Contact Info) Description 11/21/2024 Population Health Risk Score Critical [facility] Care [facility] (C[facility]) Department [address] [facility] 7 [place] [phone] Provider, Population Health Generic Social History Tobacco Use Types Packs/Day Years [...] Description 12/04/2024 10:30 AM EDT Office Visit [facility] MEDICINE [address] [place] [phone] Cinthya Dover ANP 230 [place] [address] 12/23/2024 1:00 PM EDT Office Visit [address] [address] Mychal Fields MD [address] [place] [address] documented as of this encounter Visit Diagnoses Not on filedocumented in this encounter Additional Health Concerns Assessment Noted Time PHQ-9 Depression Total Score: 6 09/16/19 25 10:06 AM EST documented as of this encounter Care Teams Gate Guard Relationship Specialty Start Date End Date Mychal Fields MD [address] [place] [address] PCP - General Internal Medicine 04/30/14 Hima Fam FNP [address] [place] [phone] Nurse Practitioner Family Medicine 08/01/23 documented as of this encounter
--- OUTSIDE RECORDS SUMMARY | 2024-11-27 13:57 | XMS_ITS | Encounter Summary ---
Author Organization [employer] Address [address] [place] [address] 7t [place] [address] Care Team Providers Care Labor Arbitrator Name Role Phone Mychal Fields MD Primary Care Provide r Hima Fam Unavailable Unavailable Reason for Visit * Reason Comments Med Refill Encounter Details Date Type Department Care Team ([facility] st Contact Info) Description 07/27/2023 Refill [facility] MEDICINE [address] [place] [address] Mychal Fields MD 230 [place], [place] [phone] Social History Tobacco Use Types Packs/Day Years [...] Description 12/04/2024 10:30 AM EDT Office Visit [facility] MEDICINE [address] [place] [phone] Cinthya Dover ANP [address] [place] [address] 12/23/2024 1:00 PM EDT Office Visit [facility] MEDICINE [address] [place] [phone] Mychal Fields MD [address] [place] [address] documented as of this encounter Visit Diagnoses Not on filedocumented in this encounter Additional Health Concerns Assessment Noted Time PHQ-9 Depression Total Score: 0 05/10/20 23 10:38 AM EDT documented as of this encounter Care Teams Labor Arbitrator Relationship Specialty Start Date End Date Mychal Fields MD [address] [place] [address] PCP - General Internal Medicine 04/30/14 Hima Fam FNP [address] [place] [phone] Nurse Practitioner Family Medicine 08/01/23 documented as of this encounter
--- OUTSIDE RECORDS SUMMARY | 2024-11-27 13:57 | XMS_ITS | Encounter Summary ---
Author Organization [employer] Address [address] [place] [address] 7t [place] [address] Care Team Providers Care Actuarial Internship Name Role Phone Mychal Fields MD Primary Care Provide r Hima Fam Unavailable Unavailable Reason for Visit * Reason Comments Med Refill Encounter Details Date Type Department Care Team (Late Contact Info) Description 10/05/2022 Refill [facility] MEDICINE [address] [place] [address] Hima Fam FNP Anxiety state Social History [...] Description 12/04/2024 10:30 AM EDT Office Visit [facility] MEDICINE [address] [place], [place] [phone] Cinthya Dover ANP [address] [place] [address] 12/23/2024 1:00 PM EDT Office Visit [facility] MEDICINE [address] [place] [address] Mychal Fields MD [address] [place], [place] [phone] documented as of this encounter Visit Diagnoses Diagnosis Anxiety state Anxiety state, unspecified documented in this encounter Care Teams Actuarial Internship Relationship Specialty Start Date End Date Mychal Fields MD [address] [place] [address] [phone] PCP - General Internal Medicine 04/30/14 Hima Fam FNP [address] [place] [phone] Nurse Practitioner Family Medicine 08/01/23 documented as of this encounter
--- OUTSIDE RECORDS SUMMARY | 2024-11-27 13:58 | XMS_ITS | Clinical Summary ---
Author Organization [employer] Address [address] [place] [address] 7 [place] [address] Care Team Providers Care Meat Seafood Associate Name Role Phone Mychal Fields MD [...] 2 (two) hours if needed. Active rizatriptan REGISTERED NURSE CARDIAC (Maxalt-REGISTERED NURSE CARDIAC) 5 MG disintegrating tablet PLEASE SEE ATTACHED FOR DETAILED DIRECTIONS Active cholecalciferol (D3) 50 MCG (1999) tabletIndications :Low vitamin D level TAKE 1 [...] bedtime for sleep. 30 tablet 025 Active amLODIPine (Norvasc) 10 MG tabletIndications :Essential hypertension TAKE 1 TABLET BY MOUTH EVERY DAY 90 tablet 1 025 Active amLODIPine (Norvasc) 10 MG tabletIndications :Essential [...] was evaluated by Dr. Wynn at our [facility] who recommended to check D dimer [...] We are trying to get her to [facility] before the lab and xray [...] reports she has completed thyroid ultrasound at [facility], notes not available at this time Hair [...] EDT): Pelvis exam indicative of this Plan: RN MANAGER referral Right foot pain 05/10/2023 Assessment & [...] tolerate NSAIDS Patient was eventually seen at [facility] neurology 04/04/2024. They recommended repeat [...] with no good results, cannot tolerate NSAIDS [facility] neurology is not accepting new patients at the moment. Will try to refer to a different Neurologist perhaps at [facility] Assessment & Plan (01/17/2024 1:06 PM [...] will also be referring to Neurology at [facility] Assessment & Plan (04/03/2023 1:22 [...] recently retired Pt has a therapist at [facility] I recommended she speak with therapist [...] necessary. For any issues or concerns, contact [facility]. All her questions were answered and [...] used to be under the care of clinical education specialist who had been prescribing Baclofen Assessment [...] used to be under the care of clinical education specialist who had been prescribing tramadol 100mg [...] without neural impingement. Pt was seen at [facility] 04/2023 and has a follow [...] without neural impingement. Pt was seen at [facility] recently has a follow up [...] neural impingement. [facility] 02/21/2012 Assessment & Plan (04/03/2023 1:41 PM EDT): Pt smoking 1 ppd. Heathx has used it in the past with [...] Encounters Date Type Department Care Team Description 11/21/2024 Population Health Risk Score [facility] (C3) Department [address] [facility] [address] [place] [address] Provider, Population Health Generic 11/10/2024 Telephone [facility] MEDICINE [address] [place] [address] Mychal Fields MD PRE OP 11/10/2024 Refill [facility] [address] [place] [address] Tre Izaguirre MD Essential hypertension 11/06/2024 Telephone [facility] [address] [place] [address] Mychal Fields MD ER Follow-up; Nurse Triage 11/05/2024 Orders Only GENERIC EXTERNAL DATA DEPARTMENT Provider, Generic External Data 10/30/2024 Refill [facility] [address] [place] [address] Noemy Frye RN Anxiety and depression 10/30/2024 Telephone [facility]INE [address] [place] [address] Mychal Fields MD Med Refill 10/27/2024 Orders Only [facility] External Provider, [facility] 10/11/2024 Refill [facility] [address] [place] [address] Mychal Fields MD 10/11/2024 Refill [facility] [address] [place] [address] Bette Wynn MD Low vitamin D level 10/06/2024 1:15 PM EST Office Visit [facility] [address] [place] [address] Nabeel Magana MD Pre-op evaluation (Primary Dx) 10/06/2024 Refill [facility] [address] [place] [address] Mychal Fields MD Anxiety and depression 10/06/2024 Travel 10/03/2024 Telephone [facility] [address] [place] [address] Mychal Fields MD December Recall 09/22/2024 Orders Only GENERIC EXTERNAL DATA DEPARTMENT Provider, Generic External Data 09/18/[address] [address] Mychal Fields MD PRE OP 09/16/2024 10:00 AM EST Office Visit [address] [address] Mychal Fields MD JERRI (obstructive sleep apnea) (Primary Dx); Abnormal CT of the chest; Essential hypertension; Microscopic hematuria; Fibromyalgia; Subacute cough; Restrictive lung disease; Enlarged lymph nodes; Preventative health care 09/16/[address] [address] Mychal Fields MD Appointment Request 09/16/2024 Orders Only GENERIC EXTERNAL DATA DEPARTMENT Provider, Generic External Data 09/16/[address] [address] Mychal Fields MD Appointment Request 09/16/2024 Travel 09/11/2024 Refill [facility] [address] [place], [place] [phone] Claudette Nassar MD Anxiety and depression 09/04/[address] [address] Mychal Fields MD Chart Prep from Last 3 Months Immunizations Name Administration [...] Description 12/04/2024 10:30 AM EDT Office Visit [facility] [address] [place] [address] Cinthya Dover ANP [address] [place] [address] 12/23/2024 1:00 PM EDT Office Visit [facility] [address] [place] [address] Mychal Fields MD [address] [place], [place] [phone] Health Maintenance Due Date Last Done Comments [...] 1-dose 75+ series) 2045 HIV Screening Completed 11/05/2024, 09/22/2024 Hepatitis C Screening Completed 11/05/2024, 025 HIB Vaccines Aged Out No longer eligi [...] Procedure Name Priority Date/Time Associated Diagnosis Comments HEPATITIS B SURFACE ANTIGEN, EIA Routine 11/05/2024 3:21 PM EST HIV 1/2 ANTIGEN/ANTIBODY, FOURTH GENERATION W/RFL Routine 11/05/2024 3:21 PM EST HEPATITIS C ANTIBODY Routine 11/05/2024 3:21 PM EST SYPHILIS SCREEN Routine 11/05/2024 3:21 PM EST BI MAMMOGRAM SCREENING TOMOSYNTHESIS BILATERAL Routine 10/29/2024 [...] Routine 09/16/2024 11:09 AM EST Subacute cough HPV MRNA E6/E7 REFLEX TO HPV 16, 18/45 Routine 08/23/2023 2:22 PM EST PAP SMEAR Routine 08/23/2023 2:22 PM EST Postmenopausal bleeding Cervical cancer screening HM COLONOSCOPY Routine 08/30/2022 LIPID PANEL, STANDARD Routine 06/17/2020 3:00 PM EDT from Last 3 Months or Most Recently Relevant to Health Maintenance Results * Syphilis Screen (11/05/2024 3:21 PM EST) Only the most recent of2 resultswithin the time period is included. Syphilis Screen Nonreactive Nonreactive [facility] 11/05/2024 3:21 PM EST 11/05/2024 3:21 PM EST Generic External Data Provider LAB BLOOD ORDERAB LES Final Result Performing Organization Address [facility] Co de Phone Number [facility] [address] [place] [phone] * Hepatitis C Ab (11/05/2024 3:21 PM EST) Only the most recent of2 resultswithin the time period is included. [facility] Hepatitis C Antibody Nonreactive Nonreactive [facility] Comment:Antibodies to HCV no t detected; does not exclude early acuteHCV infection. 11/05/2024 3:21 PM EST 11/05/2024 3:21 PM EST Generic External Data Provider LAB BLOOD ORDERAB LES Final Result Performing Organization Address City/[facility]/ZIP Co de Phone Number [facility] [address] [place] [phone] * Hepatitis B surface antigen, EIA (11/05/2024 3:21 PM EST) Only the most recent of2 resultswithin the time period is included. Pathologist [facility] Hepatitis B Surface Ag Negative Negative [facility] 11/05/2024 3:21 PM EST 11/05/2024 3:21 PM EST Generic External Data Provider LAB BLOOD ORDERAB LES Final Result Performing Organization Address [facility] de Phone Number [facility] [address] [place] [address] [phone] * HIV-1/2 Antigen and Antibodies, Fourth Generation, with Reflexes (11/05/2024 3:21 PM EST) Only the most recent of2 resultswithin the time period is included. HIV AB/AG Nonreactive Nonreactive [facility] Comment:HIV-1 p24 Ag and/or HIV-1/HIV-2 Ab not detected.A test result that is nonreactive does not exclude thepossibility of exposure to or infection with HIV-1 and/orHIV-2. Nonreactive results in this assay for individualswith prior exposure to HIV-1 and/or HIV-2 may be due toantigen and antibody levels that are below the limit ofdetection of this assay.The Liber[employer] HIV Ag/Ab Combo assay result andsupplemental assay results should be interpreted inconjunction with the patient's clinical presentation,history and other laboratory results. If the results areinconsistent with clinical evidence, additional testing issuggested to confirm the result. 11/05/2024 3:21 PM EST 11/05/2024 3:21 PM EST Generic External Data Provider LAB BLOOD ORDERAB LES Final Result Performing Organization Address [facility] de Phone Number [facility] [address] [place] [address] [phone] * BI Mammogram Screening Tomosynthesis Bilateral (10/29/2024 12:58 PM EST) Anatomical Region Laterality Modality Breast Bilateral Mammography 10/29/2024 12:5 8 PM EST Narrative 11/04/2024 12:41 PM EST ? [facility] ? [address] ?[place] [address] ? Mammography Report ? Signed ? Patient: Clark,Elaine ?MR#: [id number] ? : 1970 ?Acct:[id number] ? Age/Sex: 53 / F ?ADM Date: 02/19/25 ? Loc: HO.MAMMO ? Attending Dr: Mychal Long MD ? Ordering Physician: Syed Coreas MD ?Results: 1Negativ ?? e ? Date of Service: 10/29/24 ?Follow Up: 1 Year From Orig ?? inal Mammogram ? Procedure(s): MM tomosynthesis screening BI ?? Accession Number(s): [id number] ? cc: Mychal Long MD; Syed Coreas [...] DD/ 1258 ? TD/TT: 10/29/24 1315 ? Counselor Aide: ? Procedure Note Donartieter, Image - 11/04/2024 [facility] [address] [place], [place] [address] Mammography Report Signed Patient: Elaine RodasMR#: [id number] : 1970Acct:[id number] Age/Sex: 53 / FADM Date: 10/29/24 Loc: HO.MAMMO Attending Dr: Mychal Long MD Ordering Physician: Syed Coreasesults: 1Negativ e Date of Service: 10/29/24Follow Up: 1 Year From Orig inal Mammogram Procedure(s): MM tomosynthesis screening BI Accession Number(s): [id number] cc: Mychal Long MD; Syed Coreas MD [...] 11/04/24 1238 DD/ 1258 TD/TT: 10/29/24 1315 Counselor Aide: [facility] External Provider IMG BI PROCEDURES Final Result * CT Abdomen Pelvis w/o Contrast (10/27/2024 3:13 AM EST) Anatomical Region Laterality Modality Body, Pelvis, Abdomen Computed T omography 10/27/2024 3:13 AM EST Narrative 10/27/2024 3:15 AM EST ? [facility] ?[address] ?[place] [address] ? CT Scan Report ? Signed ? Patient: Elaine Rodas ?MR#: [id number] ? : 1970 ?Acct:[id number] ? Age/Sex: 53 / F ?ADM Date: 10/27/24 ? Loc: HO.ED ? Attending Dr: ? Ordering Physician: Jaime Parker MD ?? Date of Service: 10/27/24 ?? Procedure(s): CT abdomen pelvis wo IV con ?? Accession Number(s): [id number] ? cc: [facility]; Jaime Parker MD ? Report Number: ?? [id number]: Total DLP = ??740.00 mGy-cm ? CLINICAL [...] bones are intact. ? IMPRESSION: ?? 1. Gvkg-km-dqillizu edema identified within the small bowel mesentery, [...] in OV> ? 10/27/24 0314 ? DD/ ? TD/TT: 10/27/24 0313 ? Counselor Aide: ? Procedure Note Donartieter, Image - 10/27/[address] [place] [address] [address] Scan Report Signed Patient: Elaine RodasMR#: [id number] : 1970Acct:[id number] Age/Sex: 53 / FADM Date: 10/27/24 Loc: HO.ED Attending Dr: Ordering Physician: Jaime Parker MD Date of Service: 10/27/24 Procedure(s): CT abdomen pelvis wo IV con Accession Number(s): [id number] cc: [facility]; Jaime Parker MD Report Number: [id number]: Total DLP = 740.00 mGy-cm CLINICAL HISTORY: [...] appendix. The bones are intact. IMPRESSION: 1. Jzpn-rn-hhbucojf edema identified within the small bowel mesentery, [...] in OV> 10/27/[address] DD/ 2 TD/TT: 10/27/24312 Counselor Aide: us [facility] External Provider IMG CT PROCEDURES Final Result * XR Knee 4+ Views Right (09/22/2024 12:50 PM EST) Anatomical Region Laterality Modality Lower Extremities, Knee Right Radiogra phic Imaging 09/22/2024 12:5 0 PM EST Narrative 09/24/2024 9:59 AM EST ? [facility] ?[address] ?[place] [address] ?XRay Report ? Signed ? Patient: Elaine Rodas ?MR#: [id number] ? : 1970 ?Acct:[id number] ? Age/Sex: 53 / F ?ADM Date: 09/22/24 ? Loc: HO.XRAY ? Attending Dr: Syed Coreas MD ? Ordering Physician: Brigid West MD ?? Date of Service: 09/22/24 ?? Procedure(s): XR knee RT 4V ?? Accession Number(s): [id number] ? cc: Brigid West MD; Mychal Long [...] DD/ 1250 ? TD/TT: 09/22/24 1312 ? Counselor Aide: GARY ? Procedure Note Nishi, Image - 09/24/[address] [address] XRay Report Signed Patient: Elaine RodasMR#: [id number] : 1970Acct:[id number] Age/Sex: 53 / FADM Date: 09/22/24 Loc: HOSELINAAY Attending Dr: Syed Coreas MD Ordering Physician: Brigid West MD Date of Service: 09/22/24 Procedure(s): XR knee RT 4V Accession Number(s): [id number] cc: Brigid West MD; Mychal Long MD [...] 09/24/24 0956 DD/ 1250 TD/TT: 09/22/24 1312 Counselor Aide: GARY us [facility] External Provider IMG XR PROCEDURES Final Result * XR Knee 4+ Views Left (09/22/2024 12:50 PM EST) Anatomical Region Laterality Modality Lower Extremities, Knee Left Radiogra phic Imaging 09/22/2024 12:5 0 PM EST Narrative 09/24/2024 10:01 AM EST ? [facility] ?[address] ?[place] [address] ?XRay Report ? Signed ? Patient: Clark,Elaine ?MR#: [id number] ? : 1970 ?Acct:[id number] ? Age/Sex: 53 / F ?ADM Date: 09/22/24 ? Loc: HO.XRAY ? Attending Dr: Syed Coreas MD ? Ordering Physician: Brigid West MD ?? Date of Service: 09/22/24 ?? Procedure(s): XR knee LT 4V ?? Accession Number(s): [id number] ? cc: Brigid West MD; Mychal Long [...] DD/ 1250 ? TD/TT: 09/22/24 1312 ? Counselor Aide: MSM ? Procedure Note Donotuseinterpreter, Image - 09/24/[address] [address] XRay Report Signed Patient: Elaine RodasMR#: [id number] : 1970Acct:[id number] Age/Sex: 53 / FADM Date: 09/22/24 Loc: HO.XRAY Attending Dr: Syed Coreas MD Ordering Physician: Brigid West MD Date of Service: 09/22/24 Procedure(s): XR knee LT 4V Accession Number(s): [id number] cc: Brigid West MD; Mychal Long MD [...] 09/24/24 0959 DD/ 1250 TD/TT: 09/22/24 1312 Counselor Aide: GARY us [facility] External Provider IMG XR PROCEDURES Final Result * XR Chest 2 Views (09/22/2024 12:50 PM EST) Anatomical Region Laterality Modality Chest Radiographic Hilda ging 09/22/2024 12:5 0 PM EST Narrative 09/24/2024 10:02 AM EST ? [facility] ?[address] ?[place] [address] ?XRay Report ? Signed ? Patient: Clark,Elaine ?MR#: [id number] ? : 1970 ?Acct:[id number] ? Age/Sex: 53 / F ?ADM Date: 09/22/24 ? Loc: HO.XRAY ? Attending Dr: Syed Coreas MD ? Ordering Physician: Mychal Long MD ?? Date of Service: 09/22/24 ?? Procedure(s): XR chest 2V ?? Accession Number(s): [id number] ? cc: Mychal Long MD ? EXAMINATION: [...] DD/ 1250 ? TD/TT: 09/22/24 1312 ? Counselor Aide: MSM ? Procedure Note Donartieter, Image - 09/24/[address] [address] XRay Report Signed Patient: Elaine RodasMR#: [id number] : 1970Acct:[id number] Age/Sex: 53 / FADM Date: 09/22/24 Loc: CHAPARRITA Attending Dr: Syed Coreas MD Ordering Physician: Mychal Long MD Date of Service: 09/22/24 Procedure(s): XR chest 2V Accession Number(s): [id number] cc: Mychal Long MD EXAMINATION: XR CHEST [...] 09/24/24 0959 DD/ 1250 TD/TT: 09/22/24 1312 Counselor Aide: [facility] us Mychal Morris MD IMG XR PROCEDURES Fin al Result * Creatinine, Serum (09/22/2024 12:35 PM EST) Only the most recent of2 resultswithin the time period is included. Creatinine, Serum 0.89 0.5 - 1.4 mg/dL [facility] Estimated Glomerular Filt Rate >60 [facility] Comment:Chronic Kidney Disea se: Estimated GFR < 60 mL/min/1.54v2Dcupch Kidney Disease: Estimated GFR < 15 mL/min/1.73m2 09/22/2024 12:3 5 PM EST 09/22/2024 12:35 PM EST us Generic External Data Provider LAB BLOOD ORDERAB LES Final Result [facility] [address] [place] [phone] * BUN (Blood Urea Nitrogen) (09/22/2024 12:35 PM EST) Only the most recent of2 resultswithin the time period is included. Urea Nitrogen (BUN) 13 9 - 16 mg/dL [facility] 09/22/2024 12:3 5 PM EST 09/22/2024 12:35 PM EST us Generic External Data Provider LAB BLOOD ORDERAB LES Final Result Performing Organization Address [facility] de Phone Number [facility] [address] [place] [phone] * D Dimer High Sensitivity (09/16/2024 11:09 AM EST) [facility] D Dimer High Sensitivity 203 NG/ML [facility] Comment:D-DIMER HS REFERENCE RANGENote: [...] BLOOD ORDERABLES Final Result Performing Organization Address [facility] de Phone Number [facility] [address] [place] [phone] * HPV mRNA E6/E7 w/Reflex to HPV Genotypes 16, 18/45 (08/23/2023 2:22 PM EST) [facility] HPV nRNA E6/E7 Not Detected Not Detected [facility] Comment:Methodology: Transcr iption-Mediated AmplificationThis assay detects E6/E7 viral messenger RNA (mRNA) from 14high-risk HPV types (16,18,31,33,35,39,45,51,52,56,58,59,66,68).Cervical sources are required for HPV testing.If a vaginal source from a patient who has had atotal hysterectomy with removal of cervix wassubmitted, please contact the testing laboratoryfor alternative testing options.For additional information, please refer tohttp://education.[employer]/faq/VJE347h4(This link if provided for information/educational purposes only.)THIS TEST WAS PERFORMED AT:[facility] [address] [phone] PRESSLEY MD HPV mRNA E6/E7 TNP [facility] HPV 16 RNA TNP [facility] HPV 18/45 RNA TNP [facility] 08/23/2023 2:22 PM EST 08/24/2023 9:35 AM EST us Cecily Schwab [facility] CYTOLOGY ORDERABLES F inal Result [facility] [address] [place] [phone] [phone] * Pap Smear (08/23/2023 2:22 PM EST) Swab Cervix uteri structure / Unknown 08/23/2023 2:22 PM EST 08/24/2023 9:35 AM EST Narrative [facility] - 09/04/2023 1:23 PM EST ----- ------- Name: Elaine Rodas ?Age/Sex: 52/F ? : 1970 Unit#: [id number] ?? Attend Dr: ?Re08/23/23 ?Status: PRE REF ? Location: HO.LNP ?Disch: ? ----- ------- SPEC : [id number] ?RECD: 08/24/2372 ? STATUS: ??SOUT ? REQ NUM: [id number] ? CHAPIN: 08/23/23-2050 ? SUBM DR: CECILY SCHWAB CNM ? ENTERED: ??08/24/232 ?SP TYPE: Pap Smr ?OTHR DR: ? [...] 66, 68) ?? HPV testing performed by [facility], [place], [place]. ??See reference laboratory ?? portion of the EMR for entire report. ?Clinical Information LMP: Postmenopausal Previous PAP test: Unknown date/findings Other history: Abnormal bleeding ? Material Received ?? ThinPrep-Cervical ----- ------- Signed (signature on file) NATHAN Medrano (ASCP) 09/04/23 1323 ? ----- ------- ? END OF REPORT ? Cecily STANTON LAB CYTOLOGY ORDERABLES F inal Result [facility] [address] [place] [phone] * Colonoscopy (08/30/2022) Colonoscopy Normal Normal Historical Provider HEALTH MAINTENANCE [...] ?? Mina MARRERO et al. ASHUTOSH. 2013;310(19): 3274-7595 ?? (http://education.1000memories.[employer]/faq/MPB369) Chol/HDLC Ratio 3.4 <5.0 (calc) [facility] 06/17/2020 3:00 PM EDT us Mychal Morris MD LAB BLOOD ORDERABLES Final Result [facility] [address] from Last 3 Months or Most Recently Relevant to Health Maintenance Insurance [employer] C[employer] Care Teams Meat Seafood Associate Relationship Specialty Start Date End Date Mychal Fields MD [address] [place] [address] PCP - General Internal Medicine 04/30/14 Hima Fam FNP [address] [place] [address] Nurse Practitioner Family Medicine 08/01/23
--- OUTSIDE RECORDS SUMMARY | 2024-11-27 13:58 | XMS_ITS | Encounter Summary ---
Author Organization [employer] Address [address] [place] [address] [address] [place] [address] Care Team Providers Care Printed Circuit Board Pcb Designer Name Role Phone Mychal Fields MD Primary Care Provide r Hima Fam Unavailable Unavailable Reason for Visit * Reason Onset Date Comments Med Refill 10/30/2024 Encounter Details Date Type Department Care Team ([facility] st Contact Info) Description 10/30/2024 Telephone [facility] [address] [place] [address] Mychal Fields MD [address] [place] [address] Med Refill Social History Tobacco Use Types [...] 12/04/2024 10:30 AM EDT Office Visit [facility] [address] [place] [address] Cinthya Dover ANP [address] [place] [address] 12/23/2024 1:00 PM EDT Office Visit [facility] [address] [place] [address] Mychal Fields MD [address] [place] [phone] documented as of this encounter Visit Diagnoses Not on filedocumented in this encounter Additional Health Concerns Assessment Noted Time PHQ-9 Depression Total Score: 6 09/16/19 25 10:06 AM EST documented as of this encounter Care Teams Printed Circuit Board Pcb Designer Relationship Specialty Start Date End Date Mychal Fields MD [address] [place] [address] PCP - General Internal Medicine 04/30/14 Hima Fam FNP [address] [place] [address] Nurse Practitioner Family Medicine 08/01/23 documented as of this encounter
--- OUTSIDE RECORDS SUMMARY | 2024-11-27 13:58 | XMS_ITS | Encounter Summary ---
Author Organization [employer] Address [address] [place] [address] 7 [place] [address] Care Team Providers Care Senior Underwriting Assistant Name Role Phone Mychal Fields MD Primary Care Provide r Hima Fam Unavailable Unavailable Reason for Visit * Reason Onset Date Comments Nurse Triage 08/05/2024 Encounter Details Date Type Department Care Team ([facility] st Contact Info) Description 08/05/2024 Telephone [facility] [address] [place] [address] Mychal Fields MD [address] [place] [address] Nurse Triage Social History Tobacco Use Types [...] didn't answer. Left message to call [facility] [phone]. Advised will call back in about 15 [...] symptoms except for fever. Contact pt at [phone] (romanian) documented in this encounter Plan of Treatment Upcoming Encounters Date Type Department Care Team (Late st Contact Info) Description 12/04/2024 10:30 AM EDT Office Visit [facility] [address] [place] [phone] Cinthya Dover ANP [address] [place] [address] 12/23/2024 1:00 PM EDT Office Visit [facility] [address] [place] [address] Mychal Fields MD [address] [place] [address] documented as of this encounter Visit Diagnoses Not on filedocumented in this encounter Additional Health Concerns Assessment Noted Time PHQ-9 Depression Total Score: 9 01/28/20 24 2:36 PM EDT documented as of this encounter Care Teams Senior Underwriting Assistant Relationship Specialty Start Date End Date Mychal Fields MD [address] [place] [address] PCP - General Internal Medicine 04/30/14 Hima Fam FNP [address] [place] [address] Nurse Practitioner Family Medicine 08/01/23 documented as of this encounter
--- OUTSIDE RECORDS SUMMARY | 2024-11-27 13:58 | XMS_ITS | Encounter Summary ---
Author Organization [employer] Address [address] [place] [address] [address] [place] [address] Care Team Providers Care Curing Room Supervisor Name Role Phone Mychal Fields MD Primary Care Provide r Hima Fam Unavailable Unavailable Reason for Visit * Reason Onset Date Comments Med Refill 10/30/2024 Encounter Details Date Type Department Care Team ([facility] st Contact Info) Description 10/30/2024 Refill [facility] [address] [place] [address] Noemy Frye, ALAN [address] [place] [address] Anxiety and depression Social History Tobacco Use [...] 12/04/2024 10:30 AM EDT Office Visit [facility] [address] [place] [address] Cinthya Dover ANP [address] [place] [address] 12/23/2024 1:00 PM EDT Office Visit [facility] [address] [place] [address] Mychal Fields MD [address] [place] [address] documented as of this encounter Visit Diagnoses Diagnosis Anxiety and depression documented in this encounter Additional Health Concerns Assessment Noted Time PHQ-9 Depression Total Score: 6 09/16/19 25 10:06 AM EST documented as of this encounter Care Teams Curing Room Supervisor Relationship Specialty Start Date End Date Mychal Fields MD [address] [place] [address] PCP - General Internal Medicine 04/30/14 Hima Fam FNP [address] [place] [address] Nurse Practitioner Family Medicine 08/01/23 documented as of this encounter
== END 2024-11-27 12:13 | disposition home or self-care (01) ==
LOC: HO.HWS 11:35
PROVIDERS: PCP Internal Medicine; Visit Provider Obstetrics & Gynecology
DX: N76.0 Acute vaginitis (principal); B96.89 Other specified bacterial agents as the cause of diseases classified elsewhere; A60.00 Herpesviral infection of urogenital system, unspecified
CPT/HCPCS: 99213

== ENCOUNTER 2024-11-27 11:35 | Outpatient (REF) | payer MEDICAID, SELFPAY ==
[2024-11-27 16:44] LABS: Bacterial Vaginosis PCR NEGATIVE (Negative); Candida Group PCR NOT DETECTED (Not Detect); Candida glab krusei PCR NOT DETECTED (Not Detect); Trichomonas vaginalis PCR NOT DETECTED (Not Detect)
[2024-11-27 17:17] LABS: CT PCR NOT DETECTED (Not Detect.); NG PCR NOT DETECTED (Not Detect.)
== END 2024-11-27 11:36 | disposition home or self-care (01) ==
LOC: HO.LNP 11:35
PROVIDERS: PCP Internal Medicine; Visit Provider Obstetrics & Gynecology
DX: N76.0 Acute vaginitis (principal); B96.89 Other specified bacterial agents as the cause of diseases classified elsewhere; A60.00 Herpesviral infection of urogenital system, unspecified
CPT/HCPCS: 81515; 87491; 87591; 99212

== ENCOUNTER 2024-12-16 15:31 | Outpatient (REF) | payer MEDICAID, SELFPAY ==
--- NOTE | ~2024-12-16 | CT_ITS ---
CLINICAL HISTORY: R59.0 - Localized enlarged lymph nodes CT chest with IV contrast. COMPARISON: None FINDINGS: Right thyroid lobe nodule measuring 0.9 cm, no further specific follow-up recommendations for a nodule of this size. No supraclavicular or axillary lymphadenopathy. Ascending aorta and main pulmonary artery are normal in caliber. No pericardial effusion. Coronary artery calcifications present within the LAD. Normal esophagus. A few enlarged and prominent mediastinal lymph nodes. For example prevascular lymph node measuring 3.3 x 1.6 cm (series 5, image 53). No pleural effusion. No consolidation. Trachea and central airways are clear. No significant bronchial wall thickening. No bronchiectasis. Visualized portions of the upper abdomen are unremarkable. Flowing marginal osteophytes along the midthoracic spine. No acute fracture or suspicious bone lesion. IMPRESSION: 1. No evidence of pneumonia. 2. Enlarged prevascular lymph nodes measuring up to 3.3 cm, indeterminate. This document has been electronically signed by: Skip [place] MD on 12/17/2024 16:30:34
[2024-12-16] MEDS: iohexoL 350 MG/ML 75 ML INFUS..BTL 65 ML IV (16:22)
[2024-12-16 17:34] LABS: Blood Urea Nitrogen 13 mg/dL (9-16); Estimated Glomerular Filt Rate > 60
--- OUTSIDE RECORDS SUMMARY | 2024-12-16 18:27 | XMS_ITS | Data Portability ---
Author Organization MD - [facility], [facility] Address [address] [address] Care Team Providers Care Line Fixer Name Role Phone GIACOMO MARX Primary Care Provider GIACOMO MARX Referring Provider Assessment Encounter Date Assessment Date Assessment LastModified by Organization Details LastModified Time 04/25/2024 04/25/2024 53-year-old female presents following DL with biopsy. Pathology was reviewed to be benign. 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 Overall reassurance was provided. follow up as scheduled. [email or web address] Not available 04/28/2024 15:04:21 Plan of Treatment [...] observ ation record ed. [email or web address] [facility] [address] [facility], [place], [address], 02/25/2024 09:12:35 03/31/20 24 03/31/2024 US, neck, soft tissu e No observ ation [email or web address] [address] [facility], [place], [address], 04/11/2024 16:05:21 04/28/20 24 04/10/2024 clini bertha photo * No observ ation record ed. [email or web address] Not Available 17:00:02 04/29/20 24 05/08/2023 imagi ng/di agnos tic resul t No observ ation record ed. [email or web address] Not Available 21:42:28 Result Notes None recorded. Problems Name Problem SNOMED Code Status Onset Date Resolution Date Notes Provider Name and Address Organization Details Recorded Time Thyroid nodule 830355427 Active 2023 MADHU REYES MD 100 [facility], [place], [address] , [place] - [facility] 4 16:36:38 Hypertrop hy of tonsils AND adenoids 81729037 Active 2023 MADHU REYES MD 100 [facility] 100, [place], [address] , [place] - [facility] 4 16:36:47 Hypertrop hy of lingual tonsil 248921549 Active 2023 MADHU REYES MD 100 [facility],[place] [address], [place], [address] , [place] - [facility] 4 16:36:52 Non-toxic uninodula r goiter 703865924 Active 2023 Nontoxic single thyroid nodule; Note: Date Diagnosed : 01/18/2024 11:58 AM (E04.1) Not Available [facility] 4 02:45:01 Mass of neck 119045681 Active 2023 Localized swelling, mass and lump, neck; Note: Date Diagnosed : 11/08/2023 11:56 AM (R22.1) Not Available [facility] 4 02:45:02 Neck swelling 405255381 Active 2023 Localized swelling, mass and lump, neck; Note: Date Diagnosed : 11/08/2023 11:56 AM (R22.1) Not Available [facility] 4 02:45:02 Neck pain 12525659 Active 2023 Cervicalg ia; Note: Date Diagnosed : 11/08/2023 11:56 AM (M54.2) Not Available [facility] 4 02:45:02 Dysphagia 31645710 Active 2023 Dysphagia , unspecifi ed; Note: Date Diagnosed : 11/08/2023 11:56 AM (R13.10) Not Available [facility] 4 02:45:05 Obstructi ve sleep apnea of adult 87538141073 03 Active 2023 MADHU REYES MD 100 [facility] [address], [place], [address] , [place] - [facility] 4 08:48:15 Seasonal allergic rhinitis 528024408 Active 2023 MADHU REYES MD [address] [facility] [address], [place], [address] , [place] - [facility] 4 08:52:06 Allergic rhinitis 66484817 Active 2023 MADHU REYES MD 100 [facility],[place] [address], [place], [address] , [place] - [facility] 4 08:52:17 Non-aller gic rhinitis 96762930718 1 Active 2023 MADHU REYES MD 100 [facility] [address], [place], [address] , [facility] - [facility] 4 08:52:17 Problem Notes None recorded. Procedures Surgical History Date Name Laterality Status Provider Name and Address Organization Details Recorded Time 4 LARYNGOSCOPY, DIRECT OPERATIVE WITH OPERATING MICROSCOPE OR TELESCOPE WITH BIOPSY (SURG) completed Paulo Faria MD - [facility] 04/14/2024 09:38:40 4 FFL_RE completed MADHU REYES MD 100 [facility],[place] [address], [place], [address], [facility] - [facility] 03/18/2024 17:33:49 Imaging Results Imaging Date Name Status LastModified by Organiz ation Details LastModified Time 02/19/2024 US, thyroid completed [email or web address] [facility] [address] [facility] [address], [place], [address], 02/25/2024 09:12:35 03/31/2024 US, neck, soft tissue completed [facility] (Imaging) [address] [place], [address], 04/11/2024 16:05:21 04/10/2024 clinical photo* completed [email or web address] [...] % eye drops active Medicatio n ID: [id number] Br and Name: latanopro st Send Method: E-Prescri bed Subs Allowed: subs OK Specia l Instructi on: PUT 1 DROP INTO BOTH EYES AT BEDTIME M edication GenericNa me: latanopro st Not Available Not Available Not Available terconazol e 0.4 % vaginal cream active Medicatio n ID: [id number] Br and Name: terconazo le Send Method: [...] 8.6 mg tablet active Medicatio n ID: [id number] Br and Name: senna Sen d Method: [...] 500 mg tablet active Medicatio n ID: [id number] Br and Name: valacyclo vir Send Method: [...] 50 mg tablet active Medicatio n ID: [id number] Br and Name: tramadol Send Method: E-Prescri bed Subs Allowed: subs OK Specia l Instructi on: TAKE 1 TABLET BY MOUTH EVERY 6 HOURS NEEDED FOR PAIN Medi cationGen ericName: tramadol Not Available Not Available Not Available ketorolac 0.5 % eye drops active Medicatio n ID: [id number] Br and Name: ketorolac Send Method: E-Prescri [...] 20 mg tablet active Medicatio n ID: [id number] Br and Name: dicyclomi ne Send Method: [...] 10 mg tablet active Medicatio n ID: [id number] Br and Name: buspirone Send Method: E-Prescri [...] 100 mg capsule active Medicatio n ID: [id number] Br and Name: gabapenti n Send Method: [...] 1 mg tablet active Medicatio n ID: [id number] Br and Name: varenicli ne Send Method: E-Prescri bed Subs Allowed: subs OK Specia l Instructi on: TAKE 1 TABLET BY MOUTH TWICE A DAY WITH GLASS OF WATER AFTER MEALS Med icationGe nericName : varenicli ne Not Available Not Available Not Available diclofenac 1 % topical gel active Medicatio n ID: [id number] Br and Name: diclofena c sodium Se [...] capsule,de layed release active Medicatio n ID: [id number] Br and Name: Creon Sen d Method: E-Prescri bed Subs Allowed: subs OK Specia l Instructi on: TAKE 1 CAPSULE BY MOUTH 4 TIMES A DAY. ADMINISTE R WITH MEALS AND OR SNACKS Me dicationG enericNam e: Creon Not Available Not Available Not Available blood pressure test kit-large cuff active Medicatio n ID: [id number] Br and Name: blood pressure test kit-large Send Method: E-Prescri bed Subs Allowed: subs OK Specia l Instructi on: USE TO CHECK BLOOD PRESSURE ONCE DAILY IN THE MORNING M edication GenericNa me: blood pressure test kit-large Not Available Not Available Not Available Dexilant 60 mg capsule, delayed release active Medicatio n ID: [id number] Br and Name: Dexilant Send Method: E-Prescri [...] Updated DateTime 03/18/2024 160.02 cm 36.8 kg/m2 56419.21 g Kodi Soni MD - [facility] 03/18/2024 16:16:00 Date Recorded Body height Body mass index (BMI) Body weight Provider Name and Address Organization Details Last Updated DateTime 04/25/2024 160.02 cm 36.8 kg/m2 97127.21 g Janeth Castro [facility] 04/25/2024 15:19:15 Date Recorded Body height Body mass index (BMI) Body weight Provider Name and Address Organization Details Last Updated DateTime 07/30/2024 160.02 cm 36.8 kg/m2 05047.21 g Marley Santamaria [facility] 07/30/2024 08:31:21 Social History None recorded. [...] Note [id number] MADHU REYES MD [facility] [address] [address] 03/18/2024 15:41:26 03/18/2024 17:01:09 Thyroid nodule 271683448 E04.1 I recommend a US guided FNA of the thyroid nodule. She will f/u to review. Hypertroph y of tonsils AND adenoids 53918088 J35.3 hypertroph y of Waldeyer's ring. lingual tonsil biopsy is less morbid to evaluate for lymphoma. see below. Hypertroph y of lingual tonsil 974611508 J35.3 I recommend direct laryngosco py with [...] We will schedule surgery mutually convenient time. [id number] MADHU REYES MD [facility] [address] [place] [address] 04/25/2024 15:12:06 04/30/2024 07:57:22 Hypertrophy of lingual tonsil 387789066 J35.3 Hypertroph y of tonsils AND adenoids 34581718 J35.3 Neck pain 63881209 M54.2 [address]9314 MADHU REYES MD [facility] [address] [place] [address] 07/30/2024 08:28:17 07/30/2024 08:55:15 Hypertrophy of lingual tonsil 732686121 J35.3 Biopsies negative. Gave reassuranc e. Continue observatio n. Deferred laryngosoc py today. Obstructiv e sleep apnea of adult 5216289547 103 G47.33 Agree with starting CPAP which is in process. Thyroid nodule 137961293 E04.1 Recommend repeat thyroid US at [facility] after next visit in 6 months. Seasonal a llergic rhinitis 593902675 J30.2 Exam and history are consistent with allergic rhinitis. We will obtain allergy testing to clarify the extent of allergy with f/u to review. Allergic rhinitis 178409 04 J30.9 Non-allergic rhinitis 31 86338656 01 J31.0 Health Concerns Section Related Observation LastModified by Organization Detai ls LastModified Time None Recorded Concern Status LastModified by Organization Details LastModified Time None Recorded Advance Directives Directive None Recorded Payers Encounter Date Sequence Insurance Name Policy Number Policy Tompkins Covered Member ID Tompkins Member ID Guarantor Name 03/18/2024 1 [place] [facility]as [id number] Elaine Rodas 04/25/2024 1 [place] [facility] Rodas [id number] Elaine Rodas 07/30/2024 1 [place] [facility] Elaine Rodas [id number] Elaine Rodas Notes Date Note Type Note [...] by her other doctors. MADHU REYES MD [address] [place] [address], [address], [place] - [facility] 03/18/2024 17:45:03 04/25/2024 text/html 53-year-old fema nidia presents following DL with biopsy. She continues to have mild sore throat but no bleeding. Biopsy was done due to hypertrophy of Waldeyer's ring on imaging. MAHDU REYES MD [address] [place] [address],[address], [address], [place] - [facility] 04/29/2024 10:01:40 07/30/2024 text/html Hx of hypertroph [...] allergies with marginal benefit. MADHU REYES MD [address] [place] [address], [place], [address], [place] - [facility] 07/30/2024 08:52:32 OBGyn Episode No OBEpisode recorded.
[2024-12-17 08:17] LABS: Creatinine POC 0.9 mg/dL (0.5-1.4); GFR POC > 60
== END 2024-12-16 15:32 | disposition home or self-care (01) ==
LOC: HO.CT 15:31
PROVIDERS: PCP Internal Medicine; Visit Provider Nurse Practitioner Family
DX: Z01.818 Encounter for other preprocedural examination (principal); R59.0 Localized enlarged lymph nodes
CPT/HCPCS: 36415; 71260; 82565; 84520; Q9967

== ENCOUNTER → 2024-12-16 15:33 | Outpatient (BNV) | payer MEDICAID, SELFPAY | PROVIDERS: PCP Internal Medicine; Visit Provider Radiology Diagnostic Radiology | DX: R59.0 Localized enlarged lymph nodes (principal) | CPT/HCPCS: 71260 ==

== ENCOUNTER 2025-01-05 13:29 | Outpatient (AMB) | payer MEDICAID, SELFPAY ==
--- NOTE | 2025-01-04 19:45 | MHC.OFFVIS ---
Vital Signs 01/05/25 14:03 Height 5 ft 5 in Weight 219 lb 5.759 oz BMI 36.5 BP 132/70 Blood Pressure Location Lt brachial Position Sitting Pulse 83 Pulse Source Pulse Oximeter Pulse Oximetry (%) 98 Oxygen Delivery Method Room Air Intake Visit Reasons: Pulmonary Nodule Rn Cardiovascular Required: Yes Rn Cardiovascular Name: Bette Golden Jean Claude Home Health Specialist: Home Health Specialist offered & declined Accompanied by: granddaughter Allergies metronidazole Allergy (Severe, Verified 01/05/25 14:09) vomiting Penicillins Allergy (Mild, Verified 01/05/25 14:09) VAGINAL FUNGUS INFECTION lisinopril [LISINOPRIL] Allergy (Unknown, Verified 01/05/25 14:09) COUGH verapamil Allergy (Unknown, Verified 01/05/25 14:09) unknown Medication List - Last Reconciled 01/05/25 by Maliha Vazquez LPN albuterol sulfate 90 mcg/actuation (Ventolin HFA) 2 puffs PO Q4H PRN amlodipine 10 mg PO DAILY blood pressure test kit-large As directed cholecalciferol (vitamin D3) (Vitamin D3) 50 mcg PO DAILY citalopram 20 mg PO DAILY clindamycin phosphate 2% 1 appful vaginal BEDTIME 7 days clonazepam 1 mg PO TID PRN dexlansoprazole (Dexilant) 60 mg PO DAILY 90 days estradiol 0.01%(0.1mg/gram) 1 g vaginal 2XW fluticasone furoate-vilanterol 200-25 mcg/dose (Breo Ellipta) 1 inh inhalation DAILY fluticasone propionate 50 mcg/actuation 1 spray intranasal DAILY lidocaine 5% patches topical loperamide (Imodium A-D) 2 mg PO Q6H PRN loratadine 10 mg PO DAILY losartan 100 mg PO DAILY minoxidil 2.5 mg PO QAM nicotine (polacrilex) 2 mg buccal Q2H ondansetron 4 mg PO Q6-8H PRN sennosides (senna) 1-2 tabs qhs orally bedtime; 30 days tramadol 50 mg PO TID PRN 30 days valacyclovir 500 mg PO BID PRN valacyclovir 500 mg PO BID 3 days zolpidem 10 mg PO BEDTIME PRN HPI HPI Pulmonary Nodule: Details: Elaine is a pleasant 54 year old female, current smoker, with 30 pack year history, with underlying asthma, JERRI on CPAP managed through [facility], HTN and depression. At the last visit, she was switched from Arnuity to Breo with notable improvement in respiratory symptoms. Prior Chest CT performed in June 2024 revealed stable anterior mediastinal lymphadenopathy with the largest measured 3.1 cm in the largest dimension and pulmonary nodules <2mm, compared to CT chest 2019. Today she presents to review [address] [facility] Medical History Cataract, right eye Bilateral primary osteoarthritis of knee Gallstone pancreatitis Palpitations Fibromyalgia Depression Glaucoma HTN (hypertension) Surgical History H/O colonoscopy History of tubal ligation Hx of carpal tunnel repair Hx of cholecystectomy Hx of knee surgery Family History Father Kidney disease Mother CVD (cardiovascular disease) Colon cancer Social History Alcohol intake: never Patient Tobacco Use Status: Current everyday Tobacco user Cigarette Packs Per Day: 0.5 Cigarettes Per Day: 10 Years Smoked: 30 Female Reproductive History Menstrual Age of Menarche: 9 Review of Systems Const Denies chills, Denies excessive sweating, Denies fever(s), Denies headache(s) and Denies night sweats Eyes Denies dry eyes, Denies irritation and Denies itchy eyes ENT Reports Normal hearing present, Denies headache(s), Denies nasal congestion, Denies nasal discharge, Denies post nasal drip and Denies sore throat Card Denies chest pain, Denies chest pain at rest, Denies chest pain with activity, Denies claudication, Denies leg edema, Denies orthopnea and Denies paroxysmal nocturnal dyspnea Resp Denies chest congestion, Denies cough, Denies excessive phlegm production, Denies pain on inspiration, Denies pain with cough, Denies stridor and Denies wheezing Musc Denies myalgias Neuro Reports Normal hearing present and Denies headache(s) Endo Denies excessive sweating Jhonathan/Lymph Denies lymphadenopathy Aller/Immun Denies itchy eyes, Denies seasonal rhinorrhea and Denies wheezing Physical Exam Vital Signs: Last Vital Signs Pulse 83 01/05/25 14:03 BP 132/70 01/05/25 14:03 Pulse Ox 98 01/05/25 14:03 Oxygen Delivery Method Room Air 01/05/25 14:03 BMI result Body Mass Index 36.5 Const General: cooperative, healthy appearing, comfortable, no acute distress, well developed and alert Orientation/consciousness: patient oriented x3 Limitations: no limitations HEENT Head: Yes normal to inspection, Yes normocephalic and Yes atraumatic Ears: hearing grossly normal bilaterally and external ears normal Eyes General: appearance normal, both eyes and all related structures Eyelids: Yes eyelids normal Sclerae: sclerae normal EOM: EOMs intact bilaterally Neck Neck: Yes normal visual inspection and Yes no lymphadenopathy Lymphatic: no lymphadenopathy noted Chest Chest palpation & inspection: normal inspection of the chest Resp Effort & Inspection: normal respiratory effort, able to speak in complete sentences, no audible wheezes, no cough, no stridor, not tachypneic, no tripod positioning and no use of accessory muscles Auscultation: clear to auscultation bilaterally Cardio Jugular venous distension: no JVD Rate: regular rate Rhythm: regular rhythm Skin Other: warm, dry General skin exam: no rashes or lesions noted Neuro General: patient oriented x3 Cranial nerves: Yes Normal hearing present Cognition (Neuro): normal cognition Gait exam (Neuro): Normal gait present Extrem General: Yes normal to inspection, Yes capillary refill normal, Yes no clubbing, cyanosis or edema and Yes no pedal edema Psych Appearance: grossly normal and well kempt Speech and movement: Normal speech and movement present and Clear speech present Affect: normal affect Attitude: cooperative Thought process: Normal thought process present Thought content: Normal thought content present Insight: Good insight present (Psych) Judgement: Good judgement present (Psych) Results Reviewed Results Reviewed: [address] [address] [address] Scan Report Signed Patient: Elaine Rodas MR#: [id number] : 1970 Acct:[id number] Age/Sex: 54 / F ADM Date: 12/16/24 Loc: HO.CT Attending Dr: Amy Zimmerman SAMPLE WORKER Ordering Physician: Amy Zimmerman NP Date of Service: 12/16/24 Procedure(s): CT chest w IV con Accession Number(s): [id number] cc: Mychal Long MD; Jose LDevon [email or web address] CARRILLO~ Report Number: [id number]: Total DLP = 147.00 mGy-cm CLINICAL HISTORY: R59.0 - Localized enlarged lymph nodes CT chest with IV contrast. COMPARISON: None FINDINGS: Right thyroid lobe nodule measuring 0.9 cm, no further specific follow-up recommendations for a nodule of this size. No supraclavicular or axillary lymphadenopathy. Ascending aorta and main pulmonary artery are normal in caliber. No pericardial effusion. Coronary artery calcifications present within the LAD. Normal esophagus. A few enlarged and prominent mediastinal lymph nodes. For example prevascular lymph node measuring 3.3 x 1.6 cm (series 5, image 53). No pleural effusion. No consolidation. Trachea and central airways are clear. No significant bronchial wall thickening. No bronchiectasis. Visualized portions of the upper abdomen are unremarkable. Flowing marginal osteophytes along the midthoracic spine. No acute fracture or suspicious bone lesion. IMPRESSION: 1. No evidence of pneumonia. 2. Enlarged prevascular lymph nodes measuring up to 3.3 cm, indeterminate. This document has been electronically signed by: Skip [place] MD on 12/17/2024 16:30:34 Dictated By: Skip [place] MD Signed By: <Electronically signed by Skip [place] MD in OV> 12/17/24 1631 DD/ 1630 TD/TT: 12/17/24 1630 Side Trimmer: Assessment & Plan Assessment & Plan (1) Asthma: Code(s): J45.909 - Unspecified asthma, uncomplicated Category: Medical (2) Mediastinal lymphadenopathy: Code(s): R59.0 - Localized enlarged lymph nodes Category: Medical (3) Nicotine dependence: Code(s): F17.200 - Nicotine dependence, unspecified, uncomplicated Category: Medical Plan At this time, Elaine reports moderate control of respiratory symptoms using Breo and albuterol MDI, advised to continue. Will repeat PFT, prior PFT 2021. Smoking cessation reviewed and patient not ready to quit at this time. Prior chest CT from June 2024, revealed two pulmonary nodules <2mm as well as anterior mediastinal lymphadenopathy, largest measuring 3 cm. Reviewed [address] chest which revealed slight enlargement of lymphadenopathy measuring 3.3 cm. Will send to thoracic surgery for further evaluation and schedule repeat chest CT with IV contrast in 3 months. Patient does note symptoms of fatigue, joint pain, dyspnea and vision changes recently undergoing bilateral lens implant, will check an JOSE level to assess for underlying sarcoidosis as well as MAURICE. Prior EKG did not reveal any blocks suggestive of cardiac involvement, calcium/BUN/Creatinine WNL. All questions were answered and patient is in agreement of plan. Will follow up in 3 months or sooner if needed. Orders: Orders Angiotensin Converting Enzyme 01/04/25 R59.0 - Localized enlarged lymph nodes MAURICE Reflex Titer and Pattern Today M25.50 - Pain in unspecified joint PFT pulmonary function test Today J45.909 - Unspecified asthma, uncomplicated CT chest w IV con 3 Months R59.0 - Localized enlarged lymph nodes Referrals Thoracic/General Surgery Referral R59.0 - Localized enlarged lymph nodes Medications: Refilled albuterol sulfate 90 mcg/actuation (Ventolin HFA) 2 puffs PO Q4H PRN 18 ea 0RF for dyspnea Coding Level of Care Code Est Pt Level 4 (31857) Diagnoses Asthma J45.909 Mediastinal lymphadenopathy R59.0 Nicotine dependence F17.200
[2025-01-05 14:03] VITALS: BP 132/70; PULSE 83; O2SAT 98; BMI 36.5
--- OUTSIDE RECORDS SUMMARY | 2025-01-05 16:05 | XMS_ITS | Encounter Summary ---
Author Organization [employer] Address [address] [place] [address] [address] [place] [address] Care Team Providers Care Secondary Social Studies Teacher Name Role Phone Mychal Fields MD Primary Care Provide r Hima Fam Unavailable Unavailable Reason for Visit * Reason Comments Med Refill Encounter Details Date Type Department Care Team (Late st Contact Info) Description 10/05/2022 Refill [facility] [address] [place] [address] Hima Fam FNP Anxiety state Social History [...] unspecified documented in this encounter Care Teams Secondary Social Studies Teacher Relationship Specialty Start Date End Date Mychal Fields MD [address] [place] [address] PCP - General Internal Medicine 04/30/14 Hima Fam FNP [address] [place] [address] Nurse Practitioner Family Medicine 08/01/23 documented as of this encounter
--- OUTSIDE RECORDS SUMMARY | 2025-01-05 16:05 | XMS_ITS | Encounter Summary ---
Author Organization [employer] Address [address] [place] [address] 7 [place] [address] Care Team Providers Care Quarry Extraction Worker Name Role Phone Mychal Fields MD Primary Care Provide r Hima Fam Unavailable Unavailable Reason for Visit * Reason Onset Date Comments PRE OP 11/10/2024 Encounter Details Date Type Department Care Team ([facility] st Contact Info) Description 11/10/2024 Telephone [facility] MEDICINE [address] [place] [address] Mychal Fields MD [address] [place] [address] PRE OP Social History Tobacco Use Types [...] No Surgeon's name: Dino Caruso Facility name: [facility] Surgeon's office number: [phone] Surgeon's office fax number: [phone] Contact name (person you spoke with): Karon [...] documented as of this encounter Care Teams Quarry Extraction Worker Relationship Specialty Start Date End Date Mychal Fields MD [address] [place] [address] PCP - General Internal Medicine 04/30/14 Hima Fam FNP [address] [place] [address] Nurse Practitioner Family Medicine 08/01/23 documented as of this encounter
--- OUTSIDE RECORDS SUMMARY | 2025-01-05 16:05 | XMS_ITS | Encounter Summary ---
Author Organization [employer] Address [address] [place] [address] 7 [place] [address] Care Team Providers Care Quality Head Name Role Phone Mychal Fields MD Primary Care Provide r Hima Fam Unavailable Unavailable Encounter Details Date Type Department Care Team (Late st Contact Info) Description 12/04/2022 Telephone [facility] MEDICINE [address] [place], [place] [phone] Mychal Fields MD [address] [place], [place] [phone] Social History Tobacco Use Types Packs/Day Years [...] documented as of this encounter Care Teams Quality Head Relationship Specialty Start Date End Date Mychal Fields MD [address] [place], [place] [phone] PCP - General Internal Medicine 04/30/14 Hima Fam FNP [address] [place] [phone] Nurse Practitioner Family Medicine 08/01/23 documented as of this encounter
--- OUTSIDE RECORDS SUMMARY | 2025-01-05 16:05 | XMS_ITS | Encounter Summary ---
Author Organization [employer] Address [address] [place] [address] 7[address] [place] [address] Care Team Providers Care Apprise Counselor Name Role Phone Mychal Fields MD Primary Care Provide r Hima Fam Unavailable Unavailable Encounter Details Date Type Department Care Team (Late st Contact Info) Description 04/24/2023 Orders Only [facility] MEDICINE [address] [place] [address] Zena Harley MD [address] [place] [address] Acquired clavicle deformity (Primary Dx) Social History [...] EDT Narrative 05/14/2023 4:45 PM EDT ? [facility] ?[address] ?[place] [address] ?XRay Report ? Signed ? Patient: Elaine Rodas ?MR#: [id number] ? : 1970 ?Acct:[id number] ? Age/Sex: 52 / F ?ADM Date: 05/14/23 ? Loc: HO.ED ? Attending Dr: ? Ordering Physician: Vee Castano NP ?? Date of Service: 05/14/23 ?? Procedure(s): XR chest 2V ?? Accession Number(s): [id number] ? cc: Mychal Long MD; Vee Castano [...] 1642 ? DD/ 1624 ? TD/TT: ? Director Of Intelligence: SUJ ? Procedure Note Yas Almodovar - 05/14/2023 [facility] [address] [place] [address] XRay Report Signed Patient: Elaine RodasMR#: [id number] : 1970Acct:[id number] Age/Sex: 52 / FADM Date: 05/14/23 Loc: HO.ED Attending Dr: Ordering Physician: Vee Castano NP Date of Service: 05/14/23 Procedure(s): XR chest 2V Accession Number(s): [id number] cc: Mychal Long MD; Vee Castano NP [...] in OV> 05/14/23 1642 DD/ 1624 TD/TT: Director Of Intelligence: DORITA [facility] External Provider IMG XR PROCEDURES Edited Result - Final * XR Foot 3+ Views Right (05/10/2023 11:44 AM EDT) Anatomical Region Laterality Modality Lower Extremities, Foot Right Radiogra phic Imaging 05/10/2023 11:4 4 AM EDT Narrative 05/10/2023 12:08 PM EDT ?[facility] ?[address] ?[place] [address] ?XRay Report ? Signed ? Patient: Clark,Elaine ?MR#: [id number] ? : 1970 ?Acct:[id number] ? Age/Sex: 52 / F ?ADM Date: 08/31/23 ? Loc: HO.HHCX ? Attending Dr: Mychal Long MD ? Ordering Physician: Mychal Long MD ?? Date of Service: 05/10/23 ?? Procedure(s): XR foot RT min 3V ?? Accession Number(s): [id number] ? cc: Mychal Long MD ? EXAMINATION: [...] 1205 ? DD/ 1144 ? TD/TT: ? Director Of Intelligence: GR ? Procedure Note Nishi, Image - 05/10/[address] [address] XRay Report Signed Patient: Elaine RodasMR#: [id number] : 1970Acct:[id number] Age/Sex: 52 / FADM Date: 05/10/23 Loc: HO.HHCX Attending Dr: Mychal Long MD Ordering Physician: Mychal Long MD Date of Service: 05/10/23 Procedure(s): XR foot RT min 3V Accession Number(s): [id number] cc: Mychal Long MD EXAMINATION: XR FOOT, [...] spurs. No acute fracture. Dictated By: Rafat Tijeirna MD Signed By: <Electronically signed by Rafat Tijerina MD in OV> 08/31/23 1205 DD/ 1144 TD/TT: Director Of Intelligence: GR us Mychal Morris MD IMG XR PROCEDURES Fin al Result * FL Esophagus Barium Swallow w/Air (05/08/2023 10:19 AM EDT) Anatomical Region Laterality Modality Head, Neck Radiographic Hilda ging 05/08/2023 10:1 9 AM EDT Narrative 05/08/2023 4:35 PM EDT ? [facility] ?[address] ?[place] [address] ? Fluoroscopy Report ? Signed ? Patient: Elaine Rodas ?MR#: [id number] ? : 1970 ?Acct:[id number] ? Age/Sex: 52 / F ?ADM Date: 05/08/23 ? Loc: HO.XRAY ? Attending Dr: Mychal Long MD ? Ordering Physician: Mychal Long MD ?? Date of Service: 05/08/23 ?? Procedure(s): FL barium swallow with air ?? Accession Number(s): [id number] ? cc: Mychal Long MD ? EXAMINATION: [...] 1632 ? DD/ 1019 ? TD/TT: ? Director Of Intelligence: ? 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
--- OUTSIDE RECORDS SUMMARY | 2025-01-05 16:05 | XMS_ITS | Encounter Summary ---
Author Organization [employer] Address [address] [place] [address] 7 [place] [address] Care Team Providers Care Geodesist Name Role Phone Mychal Fields MD Primary Care Provide r Hima Fam Unavailable Unavailable Encounter Details Date Type Department Care Team ([facility] st Contact Info) Description 12/05/2022 Orders Only [facility] PEDS [address] [place] [address] Veda Isabel LPN Social History Tobacco Use [...] documented as of this encounter Care Teams Geodesist Relationship Specialty Start Date End Date Mychal Fields MD [address] [place] [address] PCP - General Internal Medicine 04/30/14 Hima Fam FNP [address] [place] [address] Nurse Practitioner Family Medicine 08/01/23 documented as of this encounter
--- OUTSIDE RECORDS SUMMARY | 2025-01-05 16:05 | XMS_ITS | Clinical Summary ---
Author Organization [employer] Address [address] [place] [address] [address] [place] [address] Care Team Providers Care Shaper Setter Name Role Phone Mychal Fields MD Primary Care Provide r Hima Fam Unavailable Unavailable Allergies Active Allergy Reactions Criticality Noted Date Comments Gramineae Pollens 03/20/2024 Hydrocodone 02/28/2024 Other Reaction(s): STOMACH PAIN Lisinopril Cough 10/25/2010 Other reaction(s): unspecified Molds & Smuts 03/20/2024 Penicillins Low 12/18/2012 Other Reaction(s): VAGINAL FUNGUS INFECTION Verapamil 10/25/2010 Other reaction(s): unspecified Other Reaction(s): unknown Medications * This document contains information received from the source organization and may not represent a complete record from that organization. Blood Pressure Monitor kitIndications:Es sential hypertension 1 [...] in the morning. 30 tablet 11 024 Active hydrOXYzine HCl (Atarax) 25 MG tabletIndications :Anxiety and depression Take 1 tablet (25 mg) by mouth every 6 (six) hours if needed for anxiety. 200 tablet 5 024 Active albuterol 108 (90 Base) MCG/ACT inhalerIndication s:Wheeze Inhale 2 puffs every 4 (four) hours if needed for wheezing or shortness of breath. 18 g 3 024 Active cyclobenzaprine (Flexeril) 10 MG tabletIndications :Chronic thoracic back pain, unspecified back pain laterality Take 1 tablet (10 mg) by mouth 3 times daily for 10 days. 30 tablet 024 Active estradiol (Estrace) 0.1 MG/GM vaginal creamIndications: Atrophic vaginitis Insert 1 g vaginally twice a week 42.5 g 024 Active lidocaine (Lidoderm) 5 % patchIndications: Chronic midline low back pain without sciatica APPLY 1 PATCH TOPICALLY TO SKIN IN THE MORNING. LEAVE ON FOR 12 HOURS AND OFF FOR 12 HOURS DIRECTED 30 patch 3 Active losartan (Cozaar) 100 MG tablet TAKE 1 TABLET BY MOUTH EVERY DAY 90 tablet 2 024 Active Arnuity Ellipta 100 MCG/ACT inhaler Inhale 1 puff Once per day. Active busPIRone (Buspar) 10 MG tablet Take 1 tablet by mouth if needed in the morning, at noon, and at bedtime (anxiety). 022 Active Emgality 120 MG/ML auto-injector Inject 120 mg under the skin every 30 (thirty) days. Active nicotine polacrilex (Nicorette) 2 MG gum Chew 2 mg every 2 (two) hours if needed. Active rizatriptan ERGONOMICS TECHNICIAN (Maxalt-ERGONOMICS TECHNICIAN) 5 MG disintegrating tablet PLEASE SEE ATTACHED FOR DETAILED DIRECTIONS Active cholecalciferol (D3) 50 MCG (2000 UT) tabletIndications :Low vitamin D level TAKE 1 TABLET BY MOUTH EVERY DAY 90 tablet 025 Active fluticasone (Flonase) 50 MCG/ACT nasal spray SHAKE BEFORE FIRST USE PRIME AFTER USE CLEAN TIP 1 SPRAY INTO EACH NOSTRIL TWICE A DAY 48 mL 025 Active amLODIPine (Norvasc) 10 MG tabletIndications :Essential hypertension TAKE 1 TABLET BY MOUTH EVERY DAY 90 tablet 1 025 Active varenicline (Chantix) 1 MG tabletIndications :Smoker TAKE 1 TABLET BY MOUTH TWICE A DAY WITH GLASS OF WATER AFTER MEALS 56 tablet 1 025 Active terbinafine (LamISIL AT) 1 % creamIndications: Tinea Apply topically 2 times daily. 42 g 1 025 Active clonazePAM (KlonoPIN) 1 MG tabletIndications :Anxiety and depression Take 1 tablet (1 mg) by mouth if needed in the morning, at noon, and at bedtime for anxiety. 90 tablet 025 Active zolpidem (Ambien) 10 MG tabletIndications :Anxiety and depression TAKE 1 TABLET BY MOUTH AT BEDTIME NEEDED FOR SLEEP 30 tablet 025 Active varenicline (Chantix) 1 MG tabletIndications :Smoker TAKE 1 TABLET BY MOUTH TWICE A DAY WITH GLASS OF WATER AFTER MEALS 56 tablet 1 024 2024 Discontinued clonazePAM (KlonoPIN) 1 MG tabletIndications :Anxiety and depression Take 1 tablet (1 mg) by mouth 3 times daily. 90 tablet 025 2024 Discontinued(R eorder (will not trigger notification to Pharmacy)) zolpidem (Ambien) 10 MG tabletIndications :Anxiety and depression TAKE 1 TABLET BY MOUTH EVERY DAY AT BEDTIME NEEDED FOR SLEEP 30 tablet 025 2024 Discontinued Active Problems Problem Noted Date Diagnosed Date Tinea 12/23/2024 Assessment & Plan (12/23/2024 1:36 PM EDT): Pt with evidence of tinea pedis both feet, not responding to topical creams, will refer to dermatology JERRI (obstructive sleep apnea) 09/16/2024 Assessment & Plan (09/16/2024 10:19 AM EST): Pt had an at home sleep test that showed mild EJRRI. Recommendation was to use Auto Cpap 5-15 cm. Pt tells me has an appointment in november Subacute cough 08/05/2024 Assessment & Plan (09/16/2024 3:46 PM EST): Patient here with c/o persistent cough with not improving with albuterol and associated chest and back discomfort since 06/19/24. Followed by pulmonology for abnormal CT chest. Pt was evaluated by Dr. Wynn at our 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 Assessment & Plan (12/23/2024 1:28 PM EDT): Used to follow with Bhavana Vazquez, would like to go back Referral placed Presbyesophagus 03/20/2024 Spondylosis of lumbar region without myelopathy or radiculopathy 03/20/2024 Urine incontinence 03/20/2024 Depression 03/20/2024 Cystocele with uterine prolapse 03/20/2024 Hypertrophy of lingual tonsil 03/18/2024 Hypertrophy of tonsils and adenoids 03/18/2024 Thyroid nodule 03/18/2024 Assessment & Plan (03/24/2024 6:23 PM EDT): Pt reports she has completed thyroid ultrasound at [facility], notes not available at this time Hair loss 10/11/2023 Assessment & Plan (12/23/2024 1:32 PM EDT): Patient with previous c/o hair loss Evaluated by Dermatology Started on minoxidil (Loniten) 2.5 MG tablet; Take 1 tablet (2.5 mg) by mouth in the morning by Dermatology Assessment & Plan (02/12/2024 1:20 PM EDT): [...] EDT): Pelvis exam indicative of this Plan: 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 Pt evaluated by Pulmonology last seen 06/2024 Recommended to follow up with them Assessment & Plan (09/16/2024 3:49 PM EST): [...] airways. Microscopic hematuria 10/19/2022 Assessment & Plan (12/23/2024 1:38 PM EDT): Pt with previous c/o right sided flank pain, Urine dipstick positive for blood Seen in the past by Urology Renal U/S 11/07/2023 Normal Patient was seen by Urology 11/30/[address]rogram. Pt never followed up. Pt tells me she missed the appointment this has been rescheduled today Assessment & Plan (09/16/2024 10:24 AM EST): [...] tolerate NSAIDS Patient was eventually seen at [facility] neurology 04/04/2024. They recommended [...] with no good results, cannot tolerate NSAIDS [facility] neurology is not accepting new patients at the moment. Will try to refer to a different Neurologist perhaps at [facility] Assessment & Plan (01/17/2024 1:06 [...] will also be referring to Neurology at [facility] Assessment & Plan (04/03/2023 [...] Anxiety and depression 10/09/2022 Assessment & Plan (12/23/2024 1:10 PM EDT): Patient here for a follow up She has tried many different antidepressants and mood stabilizers but she was intolerant of everything. She is doing reasonably well. Her panic attacks respond to Hydroxyzine 25 mg prn. She takes Clonazepam 1 mg TID PRN. And Ambien 10 mg at bedtime. This was prescribed previously by Hima Fam who retired Pt has a therapist at [facility] I recommended she speak with therapist about referral to agency psychiatrist, unfortunatelly they do not have any availability In the meantime I will manage medications if necessary. Plan: Continue: clonazePAM (KlonoPIN) 1 MG tablet hydrOXYzine HCl (Atarax) 25 MG tablet zolpidem (Ambien) 10 MG tablet Will refer to our director emergency services Assessment & Plan (05/15/2024 1:34 PM EDT): [...] has a therapist at [facility] I recommended she speak with therapist [...] necessary. For any issues or concerns, contact [facility]. All her questions were answered and [...] used to be under the care of product marketing specialist who had been prescribing Baclofen Assessment [...] used to be under the care of product marketing specialist who had been prescribing tramadol 100mg [...] without neural impingement. Pt was seen at [facility] 04/2023 and has a follow up appointment [...] without neural impingement. Pt was seen at [facility] recently has a follow up recommended PT [...] neural impingement. 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 Date Type Department Care Team Description 01/01/2025 Refill [facility] [address] [facility] [place] [address] Mychal Fields MD Anxiety and depression 12/23/2024 1:00 PM EDT Office Visit [facility] [place] [address] Mychal Fields MD Restrictive lung disease (Primary Dx); Anxiety and depression; Post-cholecystectom y syndrome; Hair loss; Tinea; Microscopic hematuria; Toe anomaly 12/23/2024 Travel 12/16/2024 Orders Only GENERIC EXTERNAL DATA DEPARTMENT Provider, Generic External Data 12/14/2024 Refill [facility] [place] [address] Mychal Fields MD Smoker; Low vitamin D level; Seasonal allergies 12/10/2024 Telephone [facility] [place] [address] Mychal Fields MD 12/04/2024 10:30 AM EDT Office Visit [facility] [place] [address] Cinthya Dover ANP Cataract of left eye, unspecified cataract type (Primary Dx); Pre-op evaluation 12/04/2024 Telephone [facility] [place] [address] Mychal Fields MD Med Refill; Prior Auth Prescription 12/04/2024 Travel 12/03/2024 Telephone [facility] [place] [address] Mychal Fields MD Chart Prep 12/01/2024 Refill [facility] [address] [place] [address] Mychal Fields MD Anxiety and depression 11/27/2024 Orders Only GENERIC EXTERNAL DATA DEPARTMENT Provider, Generic External Data 11/21/2024 Population Health Risk [facility] Department [address] [id number] Provider, Population Health Generic 11/10/2024 Telephone [facility] [address] [place] [address] Mychal Fields MD PRE OP 11/10/2024 Refill [facility] [address] [place] [address] Tre Izaguirre MD Essential hypertension 11/06/2024 Telephone [facility] [address] [place] [address] Mychal Fields MD ER Follow-up; Nurse Triage 11/05/2024 Orders Only GENERIC EXTERNAL DATA DEPARTMENT Provider, Generic External Data 10/30/2024 Refill [facility] [address] [place] [address] Noemy Frye RN Anxiety and depression 10/30/2024 Telephone [facility] [address] [place] [address] Mychal Fields MD Med Refill 10/27/2024 Orders Only [facility] External Provider, [facility] 10/11/2024 Refill [facility] [address] [place] [address] Mychal Fields MD 10/11/2024 Refill [facility] [address] [place] [address] Bette Wynn MD Low vitamin D level from Last [...] Sign Reading Time Taken Comments Blood Pressure 140/79 12/23/2024 1:15 PM EDT Pulse 95 12/23/2024 1:15 PM EDT Temperature 36.3 ??C (97.3 ??F) 12/23/2024 1:15 PM ED T Respiratory Rate 20 12/23/2024 1:15 PM EDT Oxygen Saturation 98% 12/23/2024 1:15 PM EDT Inhaled Oxygen Concentration - - Weight 99.8 kg (220 lb) 12/23/2024 1:15 PM EDT Height 162.6 cm (5' 4 ) 12/23/2024 1:15 PM EDT Body Mass Index 37.76 12/23/2024 1:15 PM EDT Plan of Treatment Health Maintenance Due Date Last Done Comments CT Colonography 1970 FIT DNA/Cologuard 1970 FIT 1970 FOBT 1970 Sigmoidoscopy 1970 Hepatitis A Vaccines (1 of 2 - Risk 2-dose series) 1989 Hepatitis B Vaccines (1 of 3 - 19+ 3-dose series) 1989 Pneumococcal Vaccine: 50+ Years (2 of 2 - PCV) 12/27/2012 12/28/2011 Zoster Vaccines (1 of 2) 2020 COVID-19 Vaccine (4 - 2023- season) 2024 06/20/2022, 06/20/2022, 05/17/2021 Influenza Vaccine (#1) 2024 , 09/08/2021, 06/09/2020, Additional history exists SDOH Screening 05/15/2025 05/15/2024 Lipid Panel 06/17/2025 06/17/2020 Depression Screening 09/16/2025 09/16/2024, 09/16/19 Alcohol/Substance Use Screening 12/23/2025 12/23/2024 Tobacco Screening 12/23/2025 12/23/2024 Mammogram 10/29/2026 10/29/2024, 09/10, 12/17/2018 Colonoscopy 08/30/2027 [...] Name Priority Date/Time Associated Diagnosis Comments CT CHEST W CONTRAST Routine 12/17/2024 4 :30 PM EDT POCT CREATININE GFR Routine 12/16/2024 3 :46 PM EDT CREATININE, SERUM Routine 12/16/2024 3:1 4 PM EDT UREA NITROGEN (BUN) Routine 12/16/2024 3 :14 PM EDT CHLAMYDIA/N. GONORRHOEAE RNA, TMA, UROGENITAL Routine 11/27/2024 11:35 AM EDT BACTERIAL VAGINOSIS PANEL Routine 11/27/2024 11:35 AM EDT HEPATITIS B SURFACE ANTIGEN, EIA Routine 11/05/2024 3:21 PM EST HIV 1/2 ANTIGEN/ANTIBODY, FOURTH GENERATION W/RFL Routine 11/05/2024 3:21 PM EST HEPATITIS C ANTIBODY Routine 11/05/2024 3:21 PM EST SYPHILIS SCREEN Routine 11/05/2024 3:21 PM EST BI MAMMOGRAM SCREENING TOMOSYNTHESIS BILATERAL Routine 10/29/2024 12:[address] ABDOMEN PELVIS WO CONTRAST Routine 10/27/2024 3:13 AM EST HPV MRNA E6/E7 REFLEX TO HPV 16, 18/45 Routine 08/23/2023 2:22 PM EST PAP SMEAR Routine 08/23/2023 2:22 PM EST Postmenopausal bleeding Cervical cancer screening [facility] COLONOSCOPY Routine 08/30/2022 LIPID PANEL, STANDARD Routine 06/17/2020 3:00 PM EDT from Last 3 Months or Most Recently Relevant to Health Maintenance Results * CT Chest w/ Contrast (12/17/2024 4:30 PM EDT) Anatomical Region Laterality Modality Body, Chest Computed Tomogra phy 12/17/2024 4:30 PM EDT Narrative 12/17/2024 4:31 PM EDT ? [facility] ?[address] ?[place] [address] ? CT Scan Report ? Signed ? Patient: Clark,Elaine ?MR#: [id number] ? : 1970 ?Acct:[id number] ? Age/Sex: 54 / F ?ADM Date: /08/25 ? Loc: HO.CT ? Attending Dr: Amy Zimmerman STATE ASSESSED PROPERTIES DIRECTOR ? Ordering Physician: Amy Zimmerman NP ?? Date of Service: 12/16/24 ?? Procedure(s): CT chest w IV con ?? Accession Number(s): [id number] ? cc: Mychal Long MD; Amy Zimmerman NP ? Report Number: ?? [id number]: Total DLP = ??147.00 mGy-cm ? CLINICAL HISTORY: R59.0 - Localized enlarged lymph nodes ? CT chest with IV contrast. ? COMPARISON: None ? FINDINGS: ?? Right thyroid lobe nodule measuring 0.9 cm, no further specific follow-up ?? recommendations for a nodule of this size. ?? No supraclavicular or axillary lymphadenopathy. ?? Ascending aorta and main pulmonary artery are normal in caliber. No ?? pericardial effusion. Coronary artery calcifications present within the ?? LAD. ?? Normal esophagus. A few enlarged and prominent mediastinal lymph nodes. ?? For example prevascular lymph node measuring 3.3 x 1.6 cm (series 5, image ?? 53). ? No pleural effusion. No consolidation. ?? Trachea and central airways are clear. No significant bronchial wall ?? thickening. No bronchiectasis. ? Visualized portions of the upper abdomen are unremarkable. ?? Flowing marginal osteophytes along the midthoracic spine. No acute ?? fracture or suspicious bone lesion. ? IMPRESSION: ?? 1. No evidence of pneumonia. ?? 2. Enlarged prevascular lymph nodes measuring up to 3.3 cm, indeterminate. ? This document has been electronically signed by: Skip Hamilton MD on ?? 12/17/2024 16:30:34 ? Dictated By: ?Skip Hamilton MD ? Signed By: ?<Electronically signed by Skip Hamilton MD in OV> ?12/17/24 1631 ? DD/ 1630 ? TD/TT: 12/17/24 1630 ? Resume Specialist: ? Procedure Note Yas Almodovar - 12/17/[address] [address] [address] Scan Report Signed Patient: Elaine Rodas#: [id number] : 1970Acct:[id number] Age/Sex: 54 / FADM Date: 12/16/24 Loc: HO.CT Attending Dr: Amy Zimmerman NP Ordering Physician: Amy Zimmerman NP Date of Service: 12/16/24 Procedure(s): CT chest w IV con Accession Number(s): [id number] cc: Mychal Long MD; Amy Zimmerman NP Report Number: [id number]: Total DLP = 147.00 mGy-cm CLINICAL HISTORY: R59.0 - Localized enlarged lymph nodes CT chest with IV contrast. COMPARISON: None FINDINGS: Right thyroid lobe nodule measuring 0.9 cm, no further specific follow-up recommendations for a nodule of this size. No supraclavicular or axillary lymphadenopathy. Ascending aorta and main pulmonary artery are normal in caliber. No pericardial effusion. Coronary artery calcifications present within the LAD. Normal esophagus. A few enlarged and prominent mediastinal lymph nodes. For example prevascular lymph node measuring 3.3 x 1.6 cm (series 5, image 53). No pleural effusion. No consolidation. Trachea and central airways are clear. No significant bronchial wall thickening. No bronchiectasis. Visualized portions of the upper abdomen are unremarkable. Flowing marginal osteophytes along the midthoracic spine. No acute fracture or suspicious bone lesion. IMPRESSION: 1. No evidence of pneumonia. 2. Enlarged prevascular lymph nodes measuring up to 3.3 cm, indeterminate. This document has been electronically signed by: Skip [place] MD on 12/17/2024 16:30:34 Dictated By: Skip Hamilton MD Signed By: <Electronically signed by Skip Hamilton MD in OV> 12/17/24 1631 DD/ 1630 TD/TT: 12/17/24 1630 Resume Specialist: [facility] External Provider IMG CT PROCEDURES Final Result * POCT Creatinine GFR (12/16/2024 3:46 PM EDT) POCT Creatinine 0.9 0.5 - 1.4 mg/dL [facility] GFR POC >60 [facility] Comment:Chronic Kidney Disea se: Estimated GFR < 60 mL/min/[id number] Kidney Disease: Estimated GFR < 15 mL/min/1.73m2 12/16/2024 3:46 PM EDT 12/17/2024 8:16 AM EDT Narrative [facility] - 12/17/2024 8:17 AM EDT [id number] us Generic External Data Provider LAB POINT OF CARE TEST DOCKED DEVICE ORDERABLES Final Result Performing Organization Address City/[facility]/ZIP Co de Phone Number [facility] [address] [place] [phone] * Creatinine, Serum (12/16/2024 3:14 PM EDT) Creatinine, Serum 0.82 0.5 - 1.4 mg/dL [facility] Estimated Glomerular Filt Rate >60 [facility] Comment:Chronic Kidney Disea se: Estimated GFR < 60 mL/min/[id number] Kidney Disease: Estimated GFR < 15 mL/min/1.73m2 12/16/2024 3:14 PM EDT 12/16/2024 4:14 PM EDT us Generic External Data Provider LAB BLOOD ORDERAB LES Final Result Performing Organization Address [facility]/ZIP Co de Phone Number [facility] [address] [place] [phone] * BUN (Blood Urea Nitrogen) (12/16/2024 3:14 PM EDT) Urea Nitrogen (BUN) 13 9 - 16 mg/dL [facility] 12/16/2024 3:14 PM EDT 12/16/2024 4:14 PM EDT us Generic External Data Provider LAB BLOOD ORDERAB LES Final Result Performing Organization Address City/[facility]/ZIP Co de Phone Number [facility] [address] [place] [phone] * Bacterial Vaginosis (11/27/2024 11:35 AM EDT) [facility] TRICHOMONAS VAGINALIS DETECTION BY PCR NOT DETECTED Not Detect [facility] BACTERIAL VAGINOSIS DETECTION BY PCR NEGATIVE Negative [facility] Comment:The BV organism targ ets of the Xpert Xpress MVP test can becommensal in women; Xpert Xpress MVP positive results forbacterial vaginosis should be considered in conjunction withother clinical and patient information to determine thedisease status. Organisms that are not detected by the XpertXpress MVP test have also been reported to be associatedwith BV and aerobic vaginitis.The Xpert Xpress MVP test performance has not been evaluatedin patients under the age of 14. ANALY GROUP DETECTION BY PCR NOT DETECTED Not Detect [facility] Analy glab krusei PCR NOT DETECTED Not Detect [facility] 11/27/2024 11:3 5 AM EDT 11/27/2024 2:35 PM EDT us Generic External Data Provider LAB MICROBIOLOGY - GENERAL ORDERABLES Final Result [facility] [address] [place] [phone] * Chlamydia/N. Gonorrhoeae RNA, TMA, Urogenitial (11/27/2024 11:35 AM EDT) [facility] CT PCR NOT DETECTED Not Detect. [facility] Comment:A not detected test result does not exclude the possibilityof infection because test results can be affected byimproper specimen collection, concurrent antibiotic therapy,or the number of organisms in the specimen which may bebelow the sensitivity of the test. As with many diagnostictests, results from the Xpert CT/NG assay should beinterpreted in conjunction with other laboratory andclinical data available to the clinician.Xpert CT/NG performance has not been evaluated in patientsless than 14 years of age. The assay should not be used forthe evaluationof suspected sexual abuse or for other medico-legalindications. Additional testing is recommended in anycircumstance when false positive or false negative resultscould lead to adverse medical, social or psychologicalconsequences. NG PCR NOT DETECTED Not Detect. [facility] Comment:A not detected test result does not exclude the possibilityof infection because test results can be affected byimproper specimen collection, concurrent antibiotic therapy,or the number of organisms in the specimen which may bebelow the sensitivity of the test. As with many diagnostictests, results from the Xpert CT/NG assay should beinterpreted in conjunction with other laboratory andclinical data available to the clinician.Xpert CT/NG performance has not been evaluated in patientsless than 14 years of age. The assay should not be used forthe evaluationof suspected sexual abuse or for other medico-legalindications. Additional testing is recommended in anycircumstance when false positive or false negative resultscould lead to adverse medical, social or psychologicalconsequences. 11/27/2024 11:3 5 AM EDT 11/27/2024 2:35 PM EDT Narrative [facility] - 11/27/2024 5:17 PM EDT Vaginal Generic External Data Provider LAB MICROBIOLOGY - GENERAL ORDERABLES Final Result Performing Organization Address City/[facility]/ZIP Co de Phone Number [facility] [address] [place] [phone] * Syphilis Screen (11/05/2024 3:21 PM EST) [facility] Syphilis Screen Nonreactive Nonreactive [facility] 11/05/2024 3:21 PM EST 11/05/2024 3:21 PM EST Generic External Data Provider LAB BLOOD ORDERAB LES Final Result Performing Organization Address [facility]/ZIP Co de Phone Number [facility] [address] [place] [phone] * Hepatitis C Ab (11/05/2024 3:21 PM EST) Hepatitis C Antibody Nonreactive Nonreactive [facility] Comment:Antibodies to HCV no t detected; does not exclude early acuteHCV infection. 11/05/2024 3:21 PM EST 11/05/2024 3:21 PM EST us Generic External Data Provider LAB BLOOD ORDERAB LES Final Result Performing Organization Address City/[facility]/ZIP Co de Phone Number [facility] [address] [place] [phone] * Hepatitis B surface antigen, EIA (11/05/2024 3:21 PM EST) Hepatitis B Surface Ag Negative Negative [facility] 11/05/2024 3:21 PM EST 11/05/2024 3:21 PM EST Generic External Data Provider LAB BLOOD ORDERAB LES Final Result Performing Organization Address [facility] Co de Phone Number [facility] [address] [place] [phone] * HIV-1/2 Antigen and Antibodies, Fourth Generation, with Reflexes (11/05/2024 3:21 PM EST) HIV AB/AG Nonreactive Nonreactive [facility] Comment:HIV-1 p24 Ag and/or HIV-1/HIV-2 Ab not detected.A test result that is nonreactive does not exclude thepossibility of exposure to or infection with HIV-1 and/orHIV-2. Nonreactive results in this assay for individualswith prior exposure to HIV-1 and/or HIV-2 may be due toantigen and antibody levels that are below the limit ofdetection of this assay.The [employer] HIV Ag/Ab Combo assay result andsupplemental assay results should be interpreted inconjunction with the patient's clinical presentation,history and other laboratory results. If the results areinconsistent with clinical evidence, additional testing issuggested to confirm the result. 11/05/2024 3:21 PM EST 11/05/2024 3:21 PM EST us Generic External Data Provider LAB BLOOD ORDERAB LES Final Result [facility] [address] [place] [address] [phone] * BI Mammogram Screening Tomosynthesis Bilateral (10/29/2024 12:58 PM EST) Anatomical Region Laterality Modality Breast Bilateral Mammography 10/29/2024 12:5 8 PM EST Narrative 11/04/2024 12:41 PM EST ? [facility] [place] ? [address] ?[place] [address] ? Mammography Report ? Signed ? Patient: ClarkElaine ?MR#: [id number] ? : 1970 ?Acct:[id number] ? Age/Sex: 53 / F ?ADM Date: 10/29/24 ? Loc: HO.MAMMO ? Attending Dr: Mychal Long MD ? Ordering Physician: Syed Coreas MD ?Results: 1Negativ ?? e ? Date of Service: 10/29/24 ?Follow Up: 1 Year From Orig ?? inal Mammogram ? Procedure(s): MM tomosynthesis screening BI ?? Accession Number(s): [id number] ? cc: Mychal Long MD; Syed Coreas [...] ??Shayy Connor DO ??11/04/2024 12:38 PM EST ? Dictated By: ?Shayy Connor DO ? Signed By: ?<Electronically signed by Shayy Connor, DO in OV> ? 11/04/24 1238 ? DD/ 1258 ? TD/TT: 10/29/24 1315 ? Resume Specialist: ? Procedure Note Yas Almodovar - 11/04/2024 [facility] [address] [place], [place] [address] Mammography Report Signed Patient: Elaine RodasMR#: [id number] : 1970Acct:[id number] Age/Sex: 53 / FADM Date: 10/29/24 Loc: CHASITY Attending Dr: Mychal Long MD Ordering Physician: Syed Coreasesults: 1Negativ e Date of Service: 10/29/24Follow Up: 1 Year From Orig inal Mammogram Procedure(s): MM tomosynthesis screening BI Accession Number(s): [id number] cc: Mychal Long MD; Syed Coreas MD [...] 11/04/24 1238 DD/ 1258 TD/TT: 10/29/24 1315 Resume Specialist: [facility] External Provider IMG BI PROCEDURES Final Result * CT Abdomen Pelvis w/o Contrast (10/27/2024 3:13 AM EST) Anatomical Region Laterality Modality Body, Pelvis, Abdomen Computed T omography 10/27/2024 3:13 AM EST Narrative 10/27/2024 3:15 AM EST ? [facility] ?[address] ?[place] [address] ? CT Scan Report ? Signed ? Patient: Clark,Elaine ?MR#: [id number] ? : 1970 ?Acct:[id number] ? Age/Sex: 53 / F ?ADM Date: 02/17/25 ? Loc: HO.ED ? Attending Dr: ? Ordering Physician: Jaime Parker MD ?? Date of Service: 10/27/24 ?? Procedure(s): CT abdomen pelvis wo IV con ?? Accession Number(s): [id number] ? cc: [facility]; Jaime Parker MD ? Report Number: ?? [id number]: Total DLP = ??740.00 mGy-cm ? CLINICAL [...] bones are intact. ? IMPRESSION: ?? 1. Mjdl-hz-ulfzkpfs edema identified within the small bowel mesentery, [...] 10/27/24 0314 ? DD/ 0313 ? TD/TT: 10/27/24 0313 ? Resume Specialist: ? Procedure Note Nishi, Image - 10/27/[address] [address] Scan Report Signed Patient: Sebas Rodas#: [id number] : 1970Acct:[id number] Age/Sex: 53 / FADM Date: 10/27/24 Loc: HO.ED Attending Dr: Ordering Physician: Jaime Parker MD Date of Service: 10/27/24 Procedure(s): CT abdomen pelvis wo IV con Accession Number(s): [id number] cc: [facility]; Jaime Parker MD Report Number: [id number]: Total DLP = 740.00 mGy-cm CLINICAL HISTORY: [...] appendix. The bones are intact. IMPRESSION: 1. Kngb-xt-fxcehabq edema identified within the small bowel mesentery, [...] in OV> 10/27/24313 DD/ 2 TD/TT: 10/27/24312 Resume Specialist: us [facility] External Provider IMG CT PROCEDURES Final Result * HPV mRNA E6/E7 w/Reflex to HPV Genotypes 16, 18/45 (08/23/2023 2:22 PM EST) HPV nRNA E6/E7 Not Detected Not Detected [facility] Comment:Methodology: Transcr iption-Mediated AmplificationThis assay detects E6/E7 viral messenger RNA (mRNA) from 14high-risk HPV types (16,18,31,33,35,39,45,51,52,56,58,59,66,68).Cervical sources are required for HPV testing.If a vaginal source from a patient who has had atotal hysterectomy with removal of cervix wassubmitted, please contact the testing laboratoryfor alternative testing options.For additional information, please refer tohttp://education.[employer]/faq/UPE524m4(This link if provided for information/educational purposes only.)THIS TEST WAS PERFORMED AT:[facility] [address] [address]SNUOIBERNARD PRESSLEY MD HPV mRNA E6/E7 TNP [facility] HPV 16 RNA TNP [facility] HPV 18/45 RNA TNP [facility] 08/23/2023 2:22 PM EST 08/24/2023 9:35 AM EST Cecily Schwab [facility] CYTOLOGY ORDERABLES F inal Result [facility] [address] [place] [address] [phone] * Pap Smear (08/23/2023 2:22 PM EST) Swab Cervix uteri structure / Unknown 08/23/2023 2:22 PM EST 08/24/2023 9:35 AM EST Narrative [facility] - 09/04/2023 1:23 PM EST ----- ------- Name: Elaine Rodas ?Age/Sex: 52/F ? : 1970 Unit#: [id number] ?? Attend Dr: ?Re08/23/23 ?Status: PRE REF ? Location: HO.LNP ?Disch: ? ----- ------- SPEC : [id number] ?RECD: 08/24/23 ? STATUS: ??SOUT ? REQ NUM: [id number] ? CHAPIN: 08/23/23 ? SUBM DR: CECILY SCHWAB CNJessica ? ENTERED: ??08/24/233810 ?SP TYPE: Pap Smr ?OTHR DR: ? [...] 66, 68) ?? HPV testing performed by [facility], [place], [place]. ??See reference laboratory ?? portion of the EMR for entire report. ?Clinical Information LMP: Postmenopausal Previous PAP test: Unknown date/findings Other history: Abnormal bleeding ? Material Received ?? ThinPrep-Cervical ----- ------- Signed (signature on file) NATHAN Medrano (ASCP) 09/04/23 1323 ? ----- ------- ? END OF REPORT ? Cecily STANT[facility] CYTOLOGY ORDERABLES F inal Result [facility] [address] [place] [address] [phone] * Colonoscopy (08/30/2022) Colonoscopy Normal Normal Historical [...] ?? Mina MARRERO et al. ASHUTOSH. 2013;310(19): 5969-4779 ?? (http://education.[employer].com/faq/WKB431) Chol/HDLC Ratio 3.4 <5.0 (calc) [facility] 06/17/2020 3:00 PM EDT us Mychal Morris MD LAB BLOOD ORDERABLES Final Result [facility] [address] from Last 3 Months or Most Recently Relevant to Health Maintenance Insurance [facility] Care Teams Shaper Setter Relationship Specialty Start Date End Date Mychal Fields MD [address] [place] [address] PCP - General Internal Medicine 04/30/14 Hima Fam FNP [address] [place] [address] Nurse Practitioner Family Medicine 08/01/23
--- OUTSIDE RECORDS SUMMARY | 2025-01-05 16:05 | XMS_ITS | Encounter Summary ---
Author Organization [employer] Address [address] [place] [address] 7 [place] [address] Care Team Providers Care X Ray Consultant Name Role Phone Mychal Fields MD Primary Care Provide r Hima Fam Unavailable Unavailable Reason for Visit * Reason Onset Date Comments Appointment Request 12/04/2022 Encounter Details Date Type Department Care Team ([facility] Contact Info) Description 12/04/2022 Telephone [facility] [address] [place] [address] Mychal Fields MD [address] [place] [address] Appointment Request Social History Tobacco Use Types [...] ff/u Bp ) Please contact pt at [phone] * Telephone Encounter - Wesley Collins - 12/04/2022 2:02 PM EDT Tc from pt requesting to r/s appt on 10/19/22 ( ff/u Bp ) Please contact pt at [phone] documented in this encounter Plan of Treatment Not on file documented as of this encounter Visit Diagnoses Not on filedocumented in this encounter Additional Health Concerns Assessment Noted Time PHQ-9 Depression Total Score: 7 10/09/19 4:00 PM EST documented as of this encounter Care Teams X Ray Consultant Relationship Specialty Start Date End Date Mychal Fields MD [address] [place] [address] PCP - General Internal Medicine 04/30/14 Hima Fam FNP [address] [place] [address] Nurse Practitioner Family Medicine 08/01/23 documented as of this encounter
--- OUTSIDE RECORDS SUMMARY | 2025-01-05 16:05 | XMS_ITS | Encounter Summary ---
Author Organization [employer] Address [address] [place] [address] 7[address] [place] [address] Care Team Providers Care Infrastructure Tech Name Role Phone Mychal Fields MD Primary Care Provide r Hima Fam Unavailable Unavailable Reason for Visit * Reason Comments Med Refill Encounter Details Date Type Department Care Team (Late st Contact Info) Description 01/01/2025 Refill [facility] [address] [place] [address] Mychal Fields MD [address] [place] [address] Anxiety and depression Social History Tobacco Use [...] is your housing situation today? I have ege rebeka 05/15/[address] you [...] documented as of this encounter Care Teams Infrastructure Tech Relationship Specialty Start Date End Date Mychal Fields MD [address] [place] [address] PCP - General Internal Medicine 04/30/14 Hima Fam FNP [address] [place] [address] Nurse Practitioner Family Medicine 08/01/23 documented as of this encounter
--- OUTSIDE RECORDS SUMMARY | 2025-01-05 16:05 | XMS_ITS | Encounter Summary ---
Author Organization [employer] Address [address] [place] [address] 7[address] [place] [address] Care Team Providers Care Door Captain Name Role Phone Mychal Fields MD Primary Care Provide r Hima Fam Unavailable Unavailable Reason for Visit * Reason Comments Med Refill Encounter Details Date Type Department Care Team ([facility] st Contact Info) Description 07/27/2023 Refill [facility] [address] [place] [address] Mychal Fields MD [address] [place], [place] [phone] Social History Tobacco Use Types Packs/Day Years [...] documented as of this encounter Care Teams Door Captain Relationship Specialty Start Date End Date Mychal Fields MD [address] [place] [address] PCP - General Internal Medicine 04/30/14 Hima Fam FNP [address] [place] [address] Nurse Practitioner Family Medicine 08/01/23 documented as of this encounter
--- OUTSIDE RECORDS SUMMARY | 2025-01-05 16:05 | XMS_ITS | Data Portability ---
Author Organization [place] - [facility] Address [address] [address] Care Team Providers Care Nba Player Name Role Phone GIACOMO MARX Primary Care Provider GIACOMO MARX Referring Provider [phone] Assessment Encounter Date Assessment Date Assessment LastModified by Organization Details LastModified Time 04/25/2024 04/25/2024 53-year-old female presents following DL with biopsy. Pathology was reviewed to be benign. 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 Overall reassurance was provided. follow up as scheduled. [email or web address] Not available 04/28/2024 15:04:21 Plan of Treatment [...] observ ation record ed. [email or web address] [facility] [place] [address] [facility] [address], [place], [address], 02/25/2024 09:12:35 03/31/20 24 03/31/2024 US, neck, soft tissu e No observ ation [email or web address] [address] [facility], [place], [address], 04/11/2024 16:05:21 04/28/20 24 04/10/2024 clini bertha photo * No observ ation record ed. [email or web address] Not Available 17:00:02 04/29/20 24 05/08/2023 imagi ng/di agnos tic resul t No observ ation record ed. [email or web address] Not Available 21:42:28 Result Notes None recorded. Problems Name Problem SNOMED Code Status Onset Date Resolution Date Notes Provider Name and Address Organization Details Recorded Time Thyroid nodule 657512793 Active 2023 MADHU REYES MD 100 [facility], [place], [address] , [place] - [facility] 4 16:36:38 Hypertrop hy of tonsils AND adenoids 37044408 Active 2023 MADHU REYES MD 100 [facility] 100, [place], [address] , [place] - [facility] 4 16:36:47 Hypertrop hy of lingual tonsil 129345120 Active 2023 MADHU REYES MD 100 [facility],[place] [address], [place], [address] , [place] - [facility] 4 16:36:52 Non-toxic uninodula r goiter 646702876 Active 2023 Nontoxic single thyroid nodule; Note: Date Diagnosed : 01/18/2024 11:58 AM (E04.1) Not Available [facility] 4 02:45:01 Mass of neck 782519886 Active 2023 Localized swelling, mass and lump, neck; Note: Date Diagnosed : 11/08/2023 11:56 AM (R22.1) Not Available [facility] 4 02:45:02 Neck swelling 886392906 Active 2023 Localized swelling, mass and lump, neck; Note: Date Diagnosed : 11/08/2023 11:56 AM (R22.1) Not Available [facility] 4 02:45:02 Neck pain 67710025 Active 2023 Cervicalg ia; Note: Date Diagnosed : 11/08/2023 11:56 AM (M54.2) Not Available [facility] 4 02:45:02 Dysphagia 67678507 Active 2023 Dysphagia , unspecifi ed; Note: Date Diagnosed : 11/08/2023 11:56 AM (R13.10) Not Available [facility] 4 02:45:05 Obstructi ve sleep apnea of adult 09129175603 03 Active 2023 MADHU REYES MD 100 [facility] 100, [place], [address] , [place] - [facility] 4 08:48:15 Seasonal allergic rhinitis 703520912 Active 2023 MADHU REYES MD 100 [facility] 100, [place], [address] , [place] - [facility] 4 08:52:06 Allergic rhinitis 94675161 Active 2023 MADHU REYES MD 100 [facility],[place] [address], [place], [address] , [place] - [facility] 4 08:52:17 Non-aller gic rhinitis 73325581226 1 Active 2023 MADHU REYES MD [address] [facility],[place] [address], [place], [address] , [facility] - [facility] 4 08:52:17 Problem Notes None recorded. Procedures Surgical History Date Name Laterality Status Provider Name and Address Organization Details Recorded Time 4 LARYNGOSCOPY, DIRECT OPERATIVE WITH OPERATING MICROSCOPE OR TELESCOPE WITH BIOPSY (SURG) completed Paulo Faria [place] - [facility] 04/14/2024 09:38:40 4 FFL_RE completed MADHU REYES MD 100 [facility],[place] [address], [place], [address], [facility] - [facility] 03/18/2024 17:33:49 Imaging Results Imaging Date Name Status LastModified by Organiz ation Details LastModified Time 02/19/2024 US, thyroid completed [email or web address] [facility] [place] [address] [facility] [address], [place], [address], 02/25/2024 09:12:35 03/31/2024 US, neck, soft tissue completed [facility] (Imaging) [address] [place], [address], 04/11/2024 16:05:21 04/10/2024 clinical photo* completed [email or web address] [...] % eye drops active Medicatio n ID: [id number] Br and Name: latanopro st Send Method: E-Prescri bed Subs Allowed: subs OK Specia l Instructi on: PUT 1 DROP INTO BOTH EYES AT BEDTIME M edication GenericNa me: latanopro st Not Available Not Available Not Available terconazol e 0.4 % vaginal cream active Medicatio n ID: [id number] Br and Name: terconazo le Send Method: [...] 8.6 mg tablet active Medicatio n ID: [id number] Br and Name: senna Sen d Method: [...] 500 mg tablet active Medicatio n ID: [id number] Br and Name: valacyclo vir Send Method: [...] 50 mg tablet active Medicatio n ID: [id number] Br and Name: tramadol Send Method: E-Prescri bed Subs Allowed: subs OK Specia l Instructi on: TAKE 1 TABLET BY MOUTH EVERY 6 HOURS NEEDED FOR PAIN Medi cationGen ericName: tramadol Not Available Not Available Not Available ketorolac 0.5 % eye drops active Medicatio n ID: [id number] Br and Name: ketorolac Send Method: E-Prescri [...] 20 mg tablet active Medicatio n ID: [id number] Br and Name: dicyclomi ne Send Method: [...] 10 mg tablet active Medicatio n ID: [id number] Br and Name: buspirone Send Method: E-Prescri [...] 100 mg capsule active Medicatio n ID: [id number] Br and Name: gabapenti n Send Method: [...] 1 mg tablet active Medicatio n ID: [id number] Br and Name: varenicli ne Send Method: E-Prescri bed Subs Allowed: subs OK Specia l Instructi on: TAKE 1 TABLET BY MOUTH TWICE A DAY WITH GLASS OF WATER AFTER MEALS Med icationGe nericName : varenicli ne Not Available Not Available Not Available diclofenac 1 % topical gel active Medicatio n ID: [id number] Br and Name: diclofena c sodium Se [...] capsule,de layed release active Medicatio n ID: [id number] Br and Name: Creon Sen d Method: E-Prescri bed Subs Allowed: subs OK Specia l Instructi on: TAKE 1 CAPSULE BY MOUTH 4 TIMES A DAY. ADMINISTE R WITH MEALS AND OR SNACKS Me dicationG enericNam e: Creon Not Available Not Available Not Available blood pressure test kit-large cuff active Medicatio n ID: [id number] Br and Name: blood pressure test kit-large Send Method: E-Prescri bed Subs Allowed: subs OK Specia l Instructi on: USE TO CHECK BLOOD PRESSURE ONCE DAILY IN THE MORNING M edication GenericNa me: blood pressure test kit-large Not Available Not Available Not Available Dexilant 60 mg capsule, delayed release active Medicatio n ID: [id number] Br and Name: Dexilant Send Method: E-Prescri [...] Updated DateTime 03/18/2024 160.02 cm 36.8 kg/m2 74377.21 g Kodi Soni [place] - [facility] 03/18/2024 16:16:00 Date Recorded Body height Body mass index (BMI) Body weight Provider Name and Address Organization Details Last Updated DateTime 04/25/2024 160.02 cm 36.8 kg/m2 68108.21 g Janeth Castro [facility] 04/25/2024 15:19:15 Date Recorded Body height Body mass index (BMI) Body weight Provider Name and Address Organization Details Last Updated DateTime 07/30/2024 160.02 cm 36.8 kg/m2 92563.21 g Marley Santamaria [facility] 07/30/2024 08:31:21 Social History None recorded. [...] Note [id number] MADHU REYES MD [facility] [address] [address] 03/18/2024 15:41:26 03/18/2024 17:01:09 Thyroid nodule 510066809 E04.1 I recommend a US guided FNA of the thyroid nodule. She will f/u to review. Hypertroph y of tonsils AND adenoids 12096212 J35.3 hypertroph y of Waldeyer's ring. lingual tonsil biopsy is less morbid to evaluate for lymphoma. see below. Hypertroph y of lingual tonsil 016597953 J35.3 I recommend direct laryngosco py with [...] We will schedule surgery mutually convenient time. [id number] MADHU REYES MD [facility] [address] [place] [address] 04/25/2024 15:12:06 04/30/2024 07:57:22 Hypertrophy of lingual tonsil 126763345 J35.3 Hypertroph y of tonsils AND adenoids 90903257 J35.3 Neck pain 35892728 M54.2 [id number] MADHU REYES MD [facility] 100 [facility] [address] 07/30/2024 08:28:17 07/30/2024 08:55:15 Hypertrophy of lingual tonsil 209221634 J35.3 Biopsies negative. Gave reassuranc e. Continue observatio n. Deferred laryngosoc py today. Obstructiv e sleep apnea of adult 8199742002 103 G47.33 Agree with starting CPAP which is in process. Thyroid nodule 073212351 E04.1 Recommend repeat thyroid US at [facility] after next visit in 6 months. Seasonal a llergic rhinitis 258937822 J30.2 Exam and history are consistent with allergic rhinitis. We will obtain allergy testing to clarify the extent of allergy with f/u to review. Allergic rhinitis 633765 04 J30.9 Non-allergic rhinitis 31 78535648 01 J31.0 Health Concerns Section Related Observation LastModified by Organization Detai ls LastModified Time None Recorded Concern Status LastModified by Organization Details LastModified Time None Recorded Advance Directives Directive None Recorded Payers Encounter Date Sequence Insurance Name Policy Number Policy Tompkins Covered Member ID Tompkins Member ID Guarantor Name 03/18/2024 1 [place] [facility] Elaine Rodas [id number] Elaine Rodas 04/25/2024 1 [place] [facility] Elaine Rodas [id number] Elaine Rodas 07/30/2024 1 [place] [facility] Elaine Rodas [id number] Elaine Rodas Notes Date Note Type Note [...] by her other doctors. MADHU REYES MD [address] [place] [address], [address], [place] - [facility] 03/18/2024 17:45:03 04/25/2024 text/html 53-year-old fema nidia presents following DL with biopsy. She continues to have mild sore throat but no bleeding. Biopsy was done due to hypertrophy of Waldeyer's ring on imaging. MADHU REYES MD [address] [place] [address],[address], [address], [place] - [facility] 04/29/2024 10:01:40 07/30/2024 text/html Hx of hypertroph [...] allergies with marginal benefit. MADHU REYES MD [address] [place] [address], [place], [address], [place] - [facility] 07/30/2024 08:52:32 OBGyn Episode No OBEpisode recorded.
--- OUTSIDE RECORDS SUMMARY | 2025-01-05 16:05 | XMS_ITS | Encounter Summary ---
Author Organization [employer] Address [address] [place] [address] [address] [place] [address] Care Team Providers Care Guard Sergeant Name Role Phone Mychal Fields MD Primary Care Provide r Hima Fam Unavailable Unavailable Encounter Details Date Type Department Care Team ([facility] st Contact Info) Description 06/11/2023 Orders Only [facility]EDS [address] [place] [address] Veda Isabel LPN Social History Tobacco Use [...] documented as of this encounter Care Teams Guard Sergeant Relationship Specialty Start Date End Date Mychal Fields MD [address] [place] [address] PCP - General Internal Medicine 04/30/14 Hima Fam FNP [address] [place] [address] Nurse Practitioner Family Medicine 08/01/23 documented as of this encounter
--- OUTSIDE RECORDS SUMMARY | 2025-01-05 16:05 | XMS_ITS | Encounter Summary ---
Author Organization [email or web address] Address [address] [place] [address] 7t [place] [address] Care Team Providers Care Sap Treasury Consultant Name Role Phone Mychal Fields MD Primary Care Provide r Hima Fam Unavailable Unavailable Reason for Visit * Reason Comments Med Refill Encounter Details Date Type Department Care Team ([facility] st Contact Info) Description 07/27/2023 Refill [facility] MEDICINE [address] [place] [address] Mychal Fields MD [address] [place], [place] [phone] Social History Tobacco Use Types Packs/Day Years Used Date Smoking Tobacco: Never Passive Smoke Exposure: Never Smokeless Tobacco: Never Alcohol Use Standard Drinks/Week Comments Never 0 (1 standard drink = 0.6 oz pur e alcohol) Depression Answer Date Recorded Patient Health Questionnaire-9 Score 0 05/10/2023 Housing Stability Answer Date Recorded What is your housing situation today? I have gee tsaley 06/26/[address] you li [...] documented as of this encounter Care Teams Sap Treasury Consultant Relationship Specialty Start Date End Date Mychal Fiedls MD [address] [place] [address] PCP - General Internal Medicine 04/30/14 Hima Fam FNP [address] [place] [address] Nurse Practitioner Family Medicine 08/01/23 documented as of this encounter
--- OUTSIDE RECORDS SUMMARY | 2025-01-05 16:05 | XMS_ITS | Encounter Summary ---
Author Organization [email or web address] Address [address] [place] [address] 7t [place] [address] Care Team Providers Care Department Editor Name Role Phone Mychal Fields MD Primary Care Provide r Hima Fam Unavailable Unavailable Reason for Visit * Reason Comments Med Refill Encounter Details Date Type Department Care Team (Late st Contact Info) Description 10/06/2024 Refill [facility] MED & PEDS [address] [place] [address] Mychal Fields MD [address] [place] [address] Anxiety and depression Social History Tobacco Use [...] documented as of this encounter Care Teams Department Editor Relationship Specialty Start Date End Date Mychal Fields MD [address] [place] [address] PCP - General Internal Medicine 04/30/14 Hima Fam FNP [address] [place] [address] Nurse Practitioner Family Medicine 08/01/23 documented as of this encounter
--- OUTSIDE RECORDS SUMMARY | 2025-01-05 16:05 | XMS_ITS | Encounter Summary ---
Author Organization [employer] Address [address] [place] [address] 7 [place] [address] Care Team Providers Care Product Marketer Name Role Phone Mychal Fields MD Primary Care Provide r Hima Fam Unavailable Unavailable Reason for Visit * Reason Comments Med Change Request Encounter Details Date Type Department Care Team (Late st Contact Info) Description 10/19/2022 Refill [facility] MEDICINE [address] [place], [place] [phone] Mychal Fields MD [address] [place], [place] [phone] Fibromyalgia Social History Tobacco Use Types Packs/Day [...] as of this encounter Care Teams Product Marketer Relationship Specialty Start Date End Date Mychal Fields MD [address] [place], [place] [phone] PCP - General Internal Medicine 04/30/14 Hima Fam FNP [address] [place] [address] Nurse Practitioner Family Medicine 08/01/23 documented as of this encounter
--- OUTSIDE RECORDS SUMMARY | 2025-01-05 16:06 | XMS_ITS | Encounter Summary ---
Author Organization [employer] Address [address] [place] [address] 7 [place] [address] Care Team Providers Care Rn Trauma Name Role Phone Mychal Fields MD Primary Care Provide r Hima Fam Unavailable Unavailable Reason for Visit * Reason Onset Date Comments Nurse Triage 08/05/2024 Encounter Details Date Type Department Care Team ([facility] st Contact Info) Description 08/05/2024 Telephone [facility] MEDICINE [address] [place] [address] Mychal Fields MD [address] [place] [address] Nurse Triage Social History Tobacco Use Types [...] for cough.Pt is offered to come to [facility] to be seen by provider, advised [...] Pt didn't answer. Left message to call [facility] [phone]. Advised will call back in about 15 [...] symptoms except for fever. Contact pt at [phone] (jamaican) documented in this encounter Plan of Treatment Not on file documented as of this encounter Visit Diagnoses Not on filedocumented in this encounter Additional Health Concerns Assessment Noted Time PHQ-9 Depression Total Score: 9 01/28/20 24 2:36 PM EDT documented as of this encounter Care Teams Rn Trauma Relationship Specialty Start Date End Date Mychal Fields MD [address] [place], [place] [phone] PCP - General Internal Medicine 04/30/14 Hima Fam FNP [address] [place] [address] Nurse Practitioner Family Medicine 08/01/23 documented as of this encounter
== END 2025-01-05 14:41 | disposition home or self-care (01) ==
LOC: HO.HPS 13:29
PROVIDERS: PCP Internal Medicine; Visit Provider Nurse Practitioner Family
DX: J45.909 Unspecified asthma, uncomplicated (principal); R59.0 Localized enlarged lymph nodes; F17.200 Nicotine dependence, unspecified, uncomplicated
CPT/HCPCS: 99214

== ENCOUNTER → 2025-01-05 13:29 | Outpatient (BNVA) | payer MEDICAID, SELFPAY | PROVIDERS: PCP Internal Medicine; Visit Provider Nurse Practitioner Family | DX: J45.909 Unspecified asthma, uncomplicated (principal); R59.0 Localized enlarged lymph nodes; R91.1 Solitary pulmonary nodule; F17.210 Nicotine dependence, cigarettes, uncomplicated; G47.33 Obstructive sleep apnea (adult) (pediatric); I10 Essential (primary) hypertension; F32.A Depression, unspecified; M25.50 Pain in unspecified joint; Z99.89 Dependence on other enabling machines and devices | CPT/HCPCS: 99212 ==

== ENCOUNTER 2025-02-06 13:45 | Outpatient (REF) | payer MEDICAID, SELFPAY ==
[2025-02-06 16:47] LABS: Urine Cytology See Pathology rpt
== END 2025-02-06 13:46 | disposition home or self-care (01) ==
LOC: HO.LAB 13:45
PROVIDERS: PCP Internal Medicine; Visit Provider Urology
DX: N39.0 Urinary tract infection, site not specified (principal); R31.9 Hematuria, unspecified; Z13.9 Encounter for screening, unspecified; F17.210 Nicotine dependence, cigarettes, uncomplicated
CPT/HCPCS: 81003; 88112; 99212

== ENCOUNTER 2025-02-06 13:45 | Outpatient (AMB) | payer MEDICAID, SELFPAY ==
--- OUTSIDE RECORDS SUMMARY | 2025-02-06 13:54 | XMS_ITS | Encounter Summary ---
Author Organization [employer] Address [address] [place] [address] 7t [place] [address] Care Team Providers Care Expansion Envelope Maker Hand Name Role Phone Mychal Fields MD Primary Care Provide r Hima Fam Unavailable Unavailable Encounter Details Date Type Department Care Team (Late st Contact Info) Description 12/05/2022 Orders Only [facility] MED & PEDS [address] [place], [place] [phone] Veda Isabel LPN Social History Tobacco Use [...] Care Team (Late st Contact Info) Description 04/16/2025 11:30 AM EDT Office Visit [facility] MEDICINE [address] [place], [place] [phone] Mychal Fields MD [address] [place], [place] [phone] documented as of this encounter Visit Diagnoses Not on filedocumented in this encounter Additional Health Concerns Assessment Noted Time PHQ-9 Depression Total Score: 7 10/09/19 23 4:00 PM EST documented as of this encounter Care Teams Expansion Envelope Maker Hand Relationship Specialty Start Date End Date Mychal Fields MD [address] [place] [address] PCP - General Internal Medicine 04/30/14 Hima Fam FNP [address] [place] [address] Nurse Practitioner Family Medicine 08/01/23 documented as of this encounter
--- NOTE | 2025-02-06 14:26 | A.OFFVIS_ITS ---
Intake Visit Reasons: cysto Intake Note: Patient presents today for a follow up (refused cysto) Urology Medications: none Blood Thinner: none Shutdown Coordinator Required: Yes Shutdown Coordinator Name: CATY CORDONKAMRAN Information Interpreted: non-clinical & clinical Accompanied by: Unknown Allergies metronidazole Allergy (Severe, Verified 02/06/25 14:27) vomiting Penicillins Allergy (Mild, Verified 02/06/25 14:27) VAGINAL FUNGUS INFECTION lisinopril [LISINOPRIL] Allergy (Unknown, Verified 02/06/25 14:27) COUGH verapamil Allergy (Unknown, Verified 02/06/25 14:27) unknown Medication List - Last Reconciled 02/06/25 by Rosales Carter MD albuterol sulfate 90 mcg/actuation (Ventolin HFA) 2 puffs PO Q4H PRN amlodipine 10 mg PO DAILY blood pressure test kit-large As directed cholecalciferol (vitamin D3) (Vitamin D3) 50 mcg PO DAILY clonazepam 1 mg PO TID PRN fluticasone furoate-vilanterol 200-25 mcg/dose (Breo Ellipta) 1 inh inhalation DAILY losartan 100 mg PO DAILY minoxidil 2.5 mg PO QAM sennosides (senna) 1-2 tabs qhs orally bedtime; 30 days tramadol 50 mg PO TID PRN 30 days HPI Comments Details: 02/06/25--History of Present Illness The patient is a 54-year-old female presenting with hematuria. The presence of blood in her urine was affirmed through prior laboratory tests. She occasionally observes visible hematuria. Prior imaging, CT scan abdomen/pelvis with IV contrast notes the kidneys, within normal limits. Urine cytology was performed and showed no abnormal cells. The need for cystoscopy was discussed to thoroughly examine the bladder, especially since small lesions might have been undetected on the initial imaging. At this visit, she opted against undergoing the cystoscopy today. Another notable aspect is her smoking history, which elevates her risk for urinary tract malignancies. She states that she also has scheduled thoracic surgery for a mediastinal mass, following consultation with her lung specialist. She is willing to reschedule the office cysto. I will repeat urine cytology. Results - CT Scan (October,): Kidneys appeared normal - Urine Cytology June,: No abnormal cells detected 11/30/23--Elaine is a very pleasant 53-year-old Northern Irish-speaking female patient of Dr. Long who was accompanied by her daughter at today's office visit. She has a past medical history of palpitations, fibromyalgia, depression, glaucoma, and hypertension. She presents to the office today as a new patient for microscopic hematuria. In discussion with the patient today she reports a longstanding history of smoking since the age of [age] years old in smokes appr oximately half a pack of cigarettes per day. She reports having followed up with [facility]ATOR at which time microscopic hematuria was noted and recommendations were made for urology referral for further assessment evaluation. Discussed at length potential causes of microscopic hematuria. Discussed further microscopic hematuria workup in the setting of nicotine dependence verses surveillance monitoring. In office urinalysis today with no microscopic hematuria noted. When asked she does report stress urinary incontinence. She otherwise denies nocturia, dysuria, foul smelling urine, changes to urinary stream, flank pain, fever, and or chills. Discuss trial of medications verses pelvic floor therapy. She otherwise offers no other issues or concerns at this time. [facility] Medical History Cataract, right eye Bilateral primary osteoarthritis of knee Gallstone pancreatitis Palpitations Fibromyalgia Depression Glaucoma HTN (hypertension) Surgical History H/O colonoscopy History of tubal ligation Hx of carpal tunnel repair Hx of cholecystectomy Hx of knee surgery Family History Father Kidney disease Mother CVD (cardiovascular disease) Colon cancer Social History Alcohol intake: never Patient Tobacco Use Status: Current everyday Tobacco user Cigarette Packs Per Day: 0.5 Cigarettes Per Day: 10 Years Smoked: 30 Female Reproductive History Menstrual Age of Menarche: 9 Review of Systems Const All systems reviewed & are unremarkable except as noted in HPI and below Reports no additional complaints Eyes Reports no additional complaints ENT Reports no additional complaints Card Reports no additional complaints Resp Reports no additional complaints GI Reports no additional complaints Reports as per HPI Musc Reports no additional complaints Skin/Breast Reports system reviewed and no additional complaints, except as documented Neuro Reports no additional complaints Psych Reports no additional complaints Endo Reports no additional complaints Jhonathan/Lymph Reports no additional complaints Aller/Immun Reports no additional complaints Results Reviewed Results Reviewed: Date of Service: 10/27/24 CLINICAL HISTORY: Mid abdominal pain CT abdomen and pelvis without contrast Comparison: CT/SR - CT ABDOMEN PELVIS W IV CON - 02/28/24 17:53 EDT Findings: No consolidation or effusion. The gallbladder is not visualized, presumed surgically absent. The solid organs are within normal limits. No renal stones. No bowel obstruction, pneumoperitoneum, or pneumatosis. Edema identified within the small bowel mesentery. Pelvic contents unremarkable. No bladder wall thickening. Minimal free fluid present within the pelvis. Normal appendix. The bones are intact. IMPRESSION: 1. Tanv-cg-sayfazpn edema identified within the small bowel mesentery, possibly related to a nonspecific enteritis. The small bowel loops are at the upper limits of normal for size. No bowel obstruction demonstrated. 2. Minimal free fluid present dependently within the pelvis, possibly reactive or physiologic in etiology. Urine Cytology--Collected: 06/13/24 Location: [facility] Received: 06/16/24 Diagnosis Urine: Negative for high-grade urothelial carcinoma. COMMENT: Examination of a monolayer preparation slide shows many benign superficial squamous cells,, few benign urothelial cells, and few inflammatory cells and red blood cells. Clinical History Nicotine dependance, unspecified, uncomplicated Microscopic hematuria Material Received Urine Gross Description Received is 7 cc of very cloudy yellow/lloyd fluid from which a ThinPrep slide is prepared. Assessment & Plan Assessment & Plan (1) Nicotine dependence: Code(s): F17.200 - Nicotine dependence, unspecified, uncomplicated Category: Medical (2) Hematuria: Code(s): R31.9 - Hematuria, unspecified Category: Medical Plan Reschedule office cystoscopy urine for cytology Patient Instructions: The patient had an opportunity to ask questions regarding treatment plan. The patient expressed understanding and agreement with the above treatment plan. The patient is aware they should contact our office by phone for worsening of their current condition or the appearance of new symptoms. Compliance is encouraged with any medications and followup testing that is ordered. It is a privilege to be allowed the opportunity to participate in the urologic care of your patient. If you have any questions or concerns regarding treatment for the above conditions please do not hesitate to contact me. The office telephone contact is [phone]. This note is constructed in part using voice recognition software. While every effort has been made to ensure accuracy nutrition professor errors may have been included. Yours sincerely, Rosales Carter MD Scribe Plan - Not visible on output: Patient was informed and verbally consented to the use of an ambient scribe for clinic note documentation during this visit. Coding Level of Care Code Est Pt Level 4 (08193) Complex EM visit Add On G2211 Diagnoses Nicotine dependence F17.200 Hematuria R31.9
== END 2025-02-06 14:53 | disposition home or self-care (01) ==
LOC: HO.HUSH 13:45
PROVIDERS: PCP Internal Medicine; Visit Provider Urology
DX: R31.9 Hematuria, unspecified (principal); F17.200 Nicotine dependence, unspecified, uncomplicated; Z13.9 Encounter for screening, unspecified
CPT/HCPCS: 99214

== ENCOUNTER 2025-02-23 21:35 | Emergency (ER) | payer MEDICAID, SELFPAY ==
[2025-02-23 21:43] VITALS: BP 137/63; PULSE 83; RESP 18; TEMP 36.9; O2SAT 97; BMI 38.5
[2025-02-23 22:28] VITALS: BP 126/58; PULSE 71; RESP 16; O2SAT 96
--- OUTSIDE RECORDS SUMMARY | 2025-02-23 22:35 | XMS_ITS | Encounter Summary ---
Author Organization [employer] Address [address] [place] [address] [address] [place] [address] Care Team Providers Care Elephant Keeper Name Role Phone Mychal Fields MD Primary Care Provide r Hima Fam Unavailable Unavailable Encounter Details Date Type Department Care Team (Late st Contact Info) Description 12/05/2022 Orders Only [facility] MED & PEDS [address] [place], [place] [phone] Veda Isabel LPN Social History Tobacco Use [...] Description 04/16/2025 11:30 AM EDT Office Visit [facility] MEDICINE [address] [place], [place] [phone] Mychal Fields MD [address] [place], [place] [phone] documented as of this encounter Visit Diagnoses Not on filedocumented in this encounter Additional Health Concerns Assessment Noted Time PHQ-9 Depression Total Score: 7 10/09/19 23 4:00 PM EST documented as of this encounter Care Teams Elephant Keeper Relationship Specialty Start Date End Date Mychal Fields MD [address] [place] [address] PCP - General Internal Medicine 04/30/14 Hima Fam FNP [address] [place] [address] Nurse Practitioner Family Medicine 08/01/23 [employer] 02/13/25 documented as of this encounter
--- NOTE | 2025-02-23 23:06 | ED.GENADULT ---
HPI - General Adult General Chief complaint: Extremity Problem Stated complaint: danielle leg pain Time Seen by Provider: 02/23/25 22:47 Source: patient and family Mode of arrival: ambulatory Limitations: no limitations and language barrier History of Present Illness ED Provider: HPI narrative: Patient is status post mediastinal mass biopsies by Dr. Bessy Kern at [facility], has a follow up appointment coming up with Christie tobar PA on March 28 in 3 days, presenting with multiple concerns, she has discomfort over her bilateral upper extremities worse on the right side worse when she moves at the wrist and at the shoulder at the elbow as well, she also has cramps in the back of her thighs bilaterally, no fevers or chills no pleurisy no chest pain or shortness of breath. Unable to take anti-inflammatories because of GI issues, uses oxycodone. Here with daughter, stem threshing machine operator was utilized. Related Data Home Medications ?Medication ?Instructions ?Recorded ?Confirmed amlodipine 10 mg tablet 10 mg PO DAILY 06/28/21 02/06/25 cholecalciferol (vitamin D3) 50 50 mcg PO DAILY 06/28/21 02/06/25 mcg (2,000 unit) tablet (Vitamin D3) clonazepam 1 mg tablet 1 mg PO TID PRN Anxiety 06/28/21 02/06/25 losartan 100 mg tablet 100 mg PO DAILY 06/28/21 02/06/25 blood pressure test kit-large #1 ea 11/19/23 02/06/25 minoxidil 2.5 mg tablet 2.5 mg PO QAM 04/07/24 02/06/25 Previous Rx's ?Medication ?Instructions ?Recorded sennosides 8.6 mg capsule (senna) See Rx Instructions PO BEDTIME 02/08/23 constipation 30 days #60 caps tramadol 50 mg tablet 50 mg PO TID PRN pain 30 days #90 11/14/24 tabs albuterol sulfate 90 mcg/actuation 2 puff PO Q4H PRN for dyspnea #18 01/28/25 aerosol inhaler (Ventolin HFA) ea fluticasone furoate 200 1 inh inhalation DAILY #60 ea 02/16/25 mcg-vilanterol 25 mcg/dose inhalation powder (Breo Ellipta) Allergies Allergy/AdvReac Type Severity Reaction Status Date / Time metronidazole Allergy Severe vomiting Verified 02/23/25 21:50 Penicillins Allergy Mild VAGINAL Verified 02/23/25 21:50 FUNGUS INFECTION lisinopril [LISINOPRIL] Allergy Unknown COUGH Verified 02/23/25 21:50 verapamil Allergy Unknown unknown Verified 02/23/25 21:50 amoxicillin AdvReac Unknown Verified 02/23/25 21:50 Review of Systems Constitutional: Constitutional: Reports as per HPI [facility] Past Medical History Medical History Cataract, right eye Bilateral primary osteoarthritis of knee Gallstone pancreatitis Palpitations Fibromyalgia Depression Glaucoma HTN (hypertension) Surgical History H/O colonoscopy History of tubal ligation Hx of carpal tunnel repair Hx of cholecystectomy Hx of knee surgery Family History Family History Father Kidney disease Mother CVD (cardiovascular disease) Colon cancer Social History Social History Alcohol intake: never Patient Tobacco Use Status: Current everyday Tobacco user Cigarette Packs Per Day: 0.5 Cigarettes Per Day: 10 Years Smoked: 30 Smoked in Last 30 Days: Yes Use of substances other than those prescribed or required for medical reasons: No Advance Directives: No Advance Directives Information Provided: No Patient : No Physical Exam ED Vital Signs: Vital Signs - 24 hr 02/23/25 21:43 02/23/25 22:28 Temperature 98.4 F Pulse Rate 83 71 Respiratory Rate 18 16 Blood Pressure 137/63 126/58 L Pulse Oximetry 97 96 Oxygen Delivery Method Room Air Room Air BMI result Body Mass Index 38.5 Const Other: Gen: ?Overall well-appearing patient Neck: Supple, no LAD CV: RRR, Resp: ?No wheezing rales rhonchi no stridor moving air well Abd: ?Bowel sounds are present, no tenderness no rebound no rigidity MSK: FROM, strength 5/5 all extremities, no motor or sensory deficits radial ulnar median nerve, she has positive Tinel sign over the right wrist, compartments are soft she has no swelling of the upper or lower extremities with distal pulses intact Skin: The incision sites over the epigastric area and over the right chest underneath the breast are clean dry Neuro: ?Alert and oriented x3, moving upper and lower extremities symmetrically, no obvious facial asymmetry noted Medical Decision Making Medical Decision Making MDM Narrative: Overall patient is well-appearing, no hypoxia or tachycardia or pleurisy the suspect PE, she is not having any respiratory issues to suspect underlying pneumothorax, there is no evidence for any edema in her upper or lower extremities I did not feel further imaging such as ultrasound isn't indicated, a lot of her symptoms are worse with movement and she just had procedure done that is seems this is likely from intraoperative manipulation she has some inflammation mostly of her right upper extremity but also lower extremities but there was no evidence that there is underlying infection or anything else to suspect a clot, she is anxious, I did speak to her daughter, the patient does have a follow up appointment coming up in 3 days with surgery team, I offered anti-inflammatories pain medications, she declined Differential Diagnosis Differential Diagnoses: The differential diagnosis associated with the presentation includes Postop infection, PE, DVT, ACS, pneumonia, pneumothorax, Discharge Plan Discharge Clinical Impression: Post-operative pain Patient Disposition: Home, Self-Care Additional Instructions: Follow up with the surgical PA in 3 days, you can address your concerns in the office as well, today the physical examination is reassuring, the incision sites are healing well there is no evidence for infection, a lot of the pains that your experiencing on my exam is likely due to intraoperative manipulation such as raising her arm up to access your chest for biopsy etc. there is no evidence of any swelling in your upper or lower extremities to suspect underlying blood clots, follow up with the surgeon your PCP and the other issues or concerns come back to the ER Prescriptions: No Action albuterol sulfate [Ventolin HFA] 90 mcg/actuation HFA aerosol inhaler 2 puff PO Q4H PRN (Reason: for dyspnea) Qty: 18 0RF fluticasone furoate-vilanterol [Breo Ellipta] 200-25 mcg/dose blister with device 1 inh inhalation DAILY Qty: 60 3RF clonazepam 1 mg tablet 1 mg PO TID PRN (Reason: Anxiety) cholecalciferol (vitamin D3) [Vitamin D3] 50 mcg (2,000 unit) tablet 50 mcg PO DAILY losartan 100 mg tablet 100 mg PO DAILY amlodipine 10 mg tablet 10 mg PO DAILY senna 8.6 mg capsule See Rx Instructions PO BEDTIME 30 Days Qty: 60 6RF Rx Instructions: 1-2 tabs qhs orally bedtime; (DME) blood pressure test kit-large Kit See Rx Instructions .ROUTE QAM Qty: 1 Rx Instructions: As directed minoxidil 2.5 mg tablet 2.5 mg PO QAM tramadol 50 mg tablet 50 mg PO TID PRN (Reason: pain) 30 Days Qty: 90 5RF Print Language: Armenian
[2025-02-23 23:20] VITALS: BP 120/63; PULSE 66; RESP 16; TEMP 36.7; O2SAT 94
[2025-02-23 23:32] VITALS: BP 120/63; PULSE 66; RESP 16; TEMP 36.7; O2SAT 94
== END 2025-02-23 23:32 | disposition home or self-care (01) ==
PROVIDERS: Emergency Provider Emergency Medicine; PCP Internal Medicine
DX: G89.18 Other acute postprocedural pain (principal); F17.210 Nicotine dependence, cigarettes, uncomplicated
CPT/HCPCS: 99282; 99284

== ENCOUNTER 2025-03-17 13:19 | Outpatient (REF) | payer MEDICAID, SELFPAY ==
--- NOTE | ~2025-03-17 | CT_ITS ---
EXAMINATION: CT CHEST WITH CONTRAST CLINICAL INFORMATION: Localized enlarged lymph nodes. COMPARISON: December 16, 2024. TECHNIQUE: Multidetector volumetric CT imaging of the chest was obtained after the administration of 65 mL of Omnipaque 350 intravenous contrast without immediate adverse reactions. Axial MIP volume rendering provided. Sagittal and coronal reformatted images were obtained. This CT examination was performed using dose optimization techniques as appropriate, variously including the following: *Automated exposure control *Adjustment of mA and/or kV according to patient size (this includes techniques or standardized protocols for targeted exams where dose is matched to indication/reason for exam; i.e. extremities or head) *Use of iterative reconstruction technique DLP: 344 mGy centimeter. FINDINGS: TRAILER PARK MANAGER: Patient's large body habitus. LUNGS: Linear attenuation abnormalities in the upper lung lobes, right middle lung. Confluent attenuation with air bronchograms in the lung bases. No bronchiectasis. No honeycombing. MEDIASTINUM: No lymphadenopathy. Small pericardial effusion. No pneumomediastinum. No aneurysm or dissection, thoracic aorta. Calcified plaques in the coronary arteries. PLEURA: Bilateral pleural effusions, moderate to large volume. No pneumothorax. No hemothorax. No calcified pleural plaques. AXILLA: No lymphadenopathy. UPPER ABDOMEN: There is a midline incision /scarring extending into the inferior sternum epigastric region without fluid collection. OSSEOUS STRUCTURES: Multilevel spondylosis. No acute fracture or listhesis. No lytic or blastic lesions. CT/CT chest w IV con IMPRESSION: Recent midline incision/scarring inferior to the sternum/epigastric region without fluid collection. Bilateral pleural effusions, moderate volume with mild interstitial lung edema and atelectasis in the lung bases Communicated via [employer] to nurse practitioner Amy Zimmerman on March 17, 2025 at 2:16 PM. Fleischner guidelines were followed. Electronically signed by: Ty Strong MD 03/17/2025 02:16 PM EDT
--- OUTSIDE RECORDS SUMMARY | 2025-03-17 13:59 | XMS_ITS | Data Portability ---
Author Organization [place] - [facility], Allergy Address [address] [address] Care Team Providers Care Tool Salvage Worker Name Role Phone GIACOMO MARX Primary Care Provider GIACOMO MARX Referring Provider Assessment Encounter Date Assessment Date Assessment LastModified by Organization Details LastModified Time 04/25/2024 04/25/2024 53-year-old female presents following DL with biopsy. Pathology was reviewed to be benign. 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 Overall reassurance was provided. follow up as scheduled. [email or web address] Not available 04/28/2024 15:04:21 Plan of Treatment Reminders Order Date Submit Date Provider Last Modified By Organization Details Last Modified Time Details Appointments Establish ed 15 2024 01:15P M PARKER CARRILLO PA-C Not available Not available Not available Lab [...] observ ation record ed. [email or web address] [facility] [place] [address] [facility] [address], [place], [address], 02/25/2024 09:12:35 03/31/20 24 03/31/2024 US, neck, soft tissu e No observ ation record ed[email or web address] [address] [facility], [place], [address], 04/11/2024 16:05:21 04/28/20 24 04/10/2024 clini bertha photo * No observ ation record ed. [email or web address] Not Available 17:00:02 04/29/20 24 05/08/2023 imagi ng/di agnos tic resul t No observ ation record ed. [email or web address] Not Available 21:42:28 Result Notes None recorded. Problems Name Problem SNOMED Code Status Onset Date Resolution Date Notes Provider Name and Address Organization Details Recorded Time Thyroid nodule 681311828 Active 2023 MADHU REYES MD [address] [facility] [address], [place], [address] , [place] - [facility] 16:36:38 Hypertrop hy of tonsils AND adenoids 82518379 Active 2023 MADHU REYES MD 100 [facility] [address], [place], [address] , [place] - [facility] [place] 4 16:36:47 Hypertrop hy of lingual tonsil 866197156 Active 2023 MADHU REYES MD 100 [facility],[place] [address], [place], [address] , [place] - [facility] 4 16:36:52 Non-toxic uninodula r goiter 596421829 Active 2023 Nontoxic single thyroid nodule; Note: Date Diagnosed : 01/18/2024 11:58 AM (E04.1) Not Available [facility] 4 02:45:01 Mass of neck 787437635 Active 2023 Localized swelling, mass and lump, neck; Note: Date Diagnosed : 11/08/2023 11:56 AM (R22.1) Not Available [facility] 4 02:45:02 Neck swelling 149147639 Active 2023 Localized swelling, mass and lump, neck; Note: Date Diagnosed : 11/08/2023 11:56 AM (R22.1) Not Available [facility] 4 02:45:02 Neck pain 41265041 Active 2023 Cervicalg ia; Note: Date Diagnosed : 11/08/2023 11:56 AM (M54.2) Not Available [facility] 4 02:45:02 Dysphagia 05487968 Active 2023 Dysphagia , unspecifi ed; Note: Date Diagnosed : 11/08/2023 11:56 AM (R13.10) Not Available [facility] 4 02:45:05 Obstructi ve sleep apnea of adult 59337026825 03 Active 2023 MADHU REYES MD [address] [facility] [address], [address] , [place] - [facility] 4 08:48:15 Seasonal allergic rhinitis 995844888 Active 2023 MADHU REYES MD 100 [facility],[place] [address], [place], [address] , [place] - [facility] 4 08:52:06 Allergic rhinitis 60635646 Active 2023 MADHU REYES MD [address] [facility] [address], [place], [address] , [facility] - [facility] 4 08:52:17 Non-aller gic rhinitis 14391905302 1 Active 2023 MADHU REYES MD [address] [facility] [address], [place], [address] , [facility] - [facility] 4 08:52:17 Problem Notes None recorded. Procedures Surgical History Date Name Laterality Status Provider Name and Address Organization Details Recorded Time 4 LARYNGOSCOPY, DIRECT OPERATIVE WITH OPERATING MICROSCOPE OR TELESCOPE WITH BIOPSY (SURG) completed Paulo Faria [place] - [facility] 04/14/2024 09:38:40 4 FFL_RE completed MADHU REYES MD [address] [facility] [address], [place], [address], [facility] 03/18/2024 17:33:49 Imaging Results None recorded. Procedure [...] % eye drops active Medicatio n ID: [id number] Br and Name: latanopro st Send Method: E-Prescri bed Subs Allowed: subs OK Specia l Instructi on: PUT 1 DROP INTO BOTH EYES AT BEDTIME M edication GenericNa me: latanopro st Not Available Not Available Not Available terconazol e 0.4 % vaginal cream active Medicatio n ID: [id number] Br and Name: terconazo le Send Method: E-Prescri bed Subs Allowed: subs OK Specia l Instructi on: INSERT 1 APPLICATO R INTO THE VAGINA AT BEDTIME FOR 7 DAYS. Med icationGe nericName : terconazo le Not Available Not Available Not Available azithromyc in 250 mg tablet TAKE 2 TABLETS BY MOUTH TODAY, THEN TAKE 1 TABLET DAILY FOR 4 DAYS DIRECTED active Not Available Not Available No t Available nicotine (polacrile x) 2 mg gum BITE [address] BETWEEN CHEEK & GUMS. USE EVERY 2 HOURS DIRECTED. active Not Available Not Available No t Available senna 8.6 mg tablet active Medicatio n ID: [id number] Br and Name: sakshi [place] Method: E-Prescri bed Subs Allowed: subs OK Specia l Instructi on: TAKE 1 TO 2 TABLETS BY MOUTH AT BEDTIME FOR CONSTIPAT ION Medic ationGene ricName: senna Not Available Not Available Not Available clonazepam 1 mg tablet TAKE 1 TABLET BY MOUTH THREE TIMES A DAY active Not Available Not Available No t Available metronidaz ole 500 mg tablet TAKE 1 TABLET BY MOUTH TWICE A DAY FOR 7 DAYS active Not Available Not Available No t Available valacyclov ir 500 mg tablet TAKE 1 TABLET BY MOUTH TWICE A DAY FOR 3 DAYS active Not Available Not Available No t Available minoxidil 2.5 mg tablet TAKE 1 TABLET BY MOUTH EVERY MORNING active Not Available Not Available No t Available tramadol 50 mg tablet TAKE 1 TABLET BY MOUTH THREE TIMES A DAY NEEDED FOR PAIN active Not Available Not Available No t Available ketorolac 0.5 % eye drops INSTILL 1 DROP INTO AFFECTED EYE 3 TIMES A DAY STRATING 2 DAYS PRIOR TO SURGERY CONTINUE DIRECTED active Not Available Not Available No t Available citalopram 20 mg tablet TAKE 1 TABLET BY MOUTH EVERY DAY active Not Available Not Available No t Available hydrocorti sone-aceti c acid 1 %-2 % ear drops ADMINISTE R 5 DROPS INTO THE RIGHT EAR 2 TIMES DAILY FOR 10 DAYS. active Not Available Not Available No t Available dicyclomin e 20 mg tablet active Medicatio n ID: [id number] Br and Name: dicyclomi ne Send Method: [...] 10 mg tablet active Medicatio n ID: [id number] Br and Name: buspirone Send Method: E-Prescri [...] Not Available Not Available No t Available clindamyci n 2 % vaginal cream APPLY 5 GRAMS DAILY INTRAVAGI NASIR AT BEDTIME active Not Available Not Available No t Available hydroxyzin e HCl 25 mg tablet TAKE 1 TABLET (25 MG) BY MOUTH EVERY 6 (SIX) HOURS IF NEEDED FOR ANXIETY. active Not Available Not Available No t Available gabapentin 100 mg capsule active Medicatio n ID: [id number] Br and Name: gabapenti n Send Method: [...] mg tablet TAKE 1 TABLET BY MOUTH AT BEDTIME NEEDED FOR SLEEP active Not Available Not Available No t Available rizatripta n 5 mg disintegra ting tablet PLEASE SEE ATTACHED FOR DETAILED DIRECTION S active Not Available Not Available No t Available ondansetro n 4 mg disintegra ting tablet DISSOLVE 1 TABLET BY MOUTH EVERY 6 TO 8 HOURS NEEDED FOR NAUSEA AND VOMITING active Not Available Not Available No t Available losartan 100 mg tablet TAKE 1 TABLET BY MOUTH EVERY DAY active Not Available Not Available No t Available fluticason e propionate 50 mcg/actuat ion nasal spray,susp ension SHAKE BEFORE FIRST USE PRIME AFTER USE CLEAN TIP 1 SPRAY INTO EACH NOSTRIL TWICE A DAY active Not Available Not Available No t Available Ventolin HFA 90 mcg/actuat ion aerosol inhaler INHALE 2 PUFFS EVERY 4 HOURS NEEDED FOR FOR DYSPNEA active Not Available Not Available No t Available eletriptan 20 mg tablet 1 TABLET BY MOUTH ONCE NEEDED FOR MIGRAINE HEADACHE, INSTR:MAY REPEAT DOSE ONCE IN 2 HOURS active Not Available Not Available No t Available Allergy Relief D-24hr 10 mg-240 mg tablet,ext ended release TAKE 1 TABLET BY MOUTH ONCE PER DAY. DO NOT CRUSH, CHEW, OR SPLIT. *OTC* active Not Available Not Available No t Available vareniclin e tartrate 1 mg tablet TAKE 1 TABLET BY MOUTH TWICE A DAY WITH GLASS OF WATER AFTER MEALS active Not Available Not Available No t Available diclofenac 1 % topical gel active Medicatio n ID: [id number] Br and Name: diclofena c sodium Se nd Method: E-Prescri bed Subs Allowed: subs OK Specia l Instructi on: APPLY 1 INCH TOPICALLY IF NEEDED IN THE MORNING AND AT BEDTIME (PAIN). [facility] me: diclofena c sodium Not Available Not Available Not Available Vitamin D3 50 mcg (2,000 unit) tablet TAKE 1 TABLET BY MOUTH EVERY DAY active Not Available Not Available No t Available Creon 24,000-76, 000-120,00 0 unit capsule,de layed release active Medicatio n ID: [id number] Br and Name: Creon Sen d Method: E-Prescri bed Subs Allowed: subs OK Specia l Instructi on: TAKE 1 CAPSULE BY MOUTH 4 TIMES A DAY. ADMINISTE R WITH MEALS AND OR SNACKS La dicationG enericNam e: Creon Not Available Not Available Not Available blood pressure test kit-large cuff active Medicatio n ID: [id number] Br and Name: blood pressure test kit-large Send Method: E-Prescri bed Subs Allowed: subs OK Specia l Instructi on: USE TO CHECK BLOOD PRESSURE ONCE DAILY IN THE MORNING [facility] me: blood pressure test kit-large Not Available Not Available Not Available Dexilant 60 mg capsule, delayed release active Medicatio n ID: [id number] Br and Name: Dexilant Send Method: E-Prescri bed Subs Allowed: subs OK Specia l Instructi on: TAKE 1 CAPSULE BY MOUTH EVERY DAY Medic ationGene ricName: Dexilant Not Available Not Available Not Available Arnuity Ellipta 100 mcg/actuat ion powder for inhalation INHALE 1 PUFF DAILY active Not Available Not Available No t Available Breo Ellipta 200 mcg-25 mcg/dose powder for inhalation TAKE 1 PUFF BY MOUTH EVERY DAY active Not Available Not Available No t Available baclofen 5 mg tablet TAKE 1 TABLET BY MOUTH EVERYDAY AT BEDTIME active Not Available Not Available No t Available Emgality Pen 120 mg/mL subcutaneo us pen injector INJECT 1 PEN SUBCUTANE OUSLY ONCE EVERY 28 DAYS (MAINTENA NCE DOSE) active Not Available Not Available No t Available Vitals Date Recorded Body height Body mass index (BMI) Body weight Provider Name and Address Organization Details Last Updated DateTime 03/18/2024 160.02 cm 36.8 kg/m2 94349.21 g Kodi Soni [place] - [facility] 03/18/2024 16:16:00 Date Recorded Body height Body mass index (BMI) Body weight Provider Name and Address Organization Details Last Updated DateTime 04/25/2024 160.02 cm 36.8 kg/m2 45802.21 g Janeth Castro [place] - [facility] 04/25/2024 15:19:15 Date Recorded Body height Body mass index (BMI) Body weight Provider Name and Address Organization Details Last Updated DateTime 07/30/2024 160.02 cm 36.8 kg/m2 26849.21 g Marley Rosalio [facility] 07/30/2024 08:31:21 Social History None recorded. [...] Note [id number] MADHU REYES MD [facility] [address] [address] 03/18/2024 15:41:26 03/18/2024 17:01:09 Thyroid nodule 825206576 E04.1 I recommend a US guided FNA of the thyroid nodule. She will f/u to review. Hypertroph y of tonsils AND adenoids 45480882 J35.3 hypertroph y of Waldeyer's ring. lingual tonsil biopsy is less morbid to evaluate for lymphoma. see below. Hypertroph y of lingual tonsil 958099278 J35.3 I recommend direct laryngosco py with [...] We will schedule surgery mutually convenient time. [id number] CIERRA GARCIA PA-C [facility] [address] [address] 04/25/2024 15:12:06 04/30/2024 07:57:22 Hypertrophy of lingual tonsil 435934590 J35.3 Hypertroph y of tonsils AND adenoids 69927978 J35.3 Neck pain 55483362 M54.2 [id number] MADHU REYES MD [facility] [address] [place] [address] 07/30/2024 08:28:17 07/30/2024 08:55:15 Hypertrophy of lingual tonsil 233430069 J35.3 Biopsies negative. Gave reassuranc e. Continue observatio n. Deferred laryngosoc py today. Obstructiv e sleep apnea of adult 4985542418 103 G47.33 Agree with starting CPAP which is in process. Thyroid nodule 514327545 E04.1 Recommend repeat thyroid US at [facility] after next visit in 6 months. Seasonal a llergic rhinitis 731779729 J30.2 Exam and history are consistent with allergic rhinitis. We will obtain allergy testing to clarify the extent of allergy with f/u to review. Allergic rhinitis 981922 04 J30.9 Non-allergic rhinitis 31 93969632 01 J31.0 Health Concerns Section Related Observation LastModified by Organization Detai ls LastModified Time None Recorded Concern Status LastModified by Organization Details LastModified Time None Recorded Advance Directives Directive None Recorded Payers Insurance Date Sequence Insurance Name Policy Number Policy Tompkins Covered Member ID Tompkins Member ID Guarantor Name 02/27/2025 1 [place] [facility] Elaine Rodas [id number] Elaine Rodas Notes Date Note Type Note [...] by her other doctors. MADHU REYES MD [facility] [place], [address], [place] - [facility] 03/18/2024 17:45:03 04/25/2024 text/html 53-year-old lorrie jacob presents following DL with biopsy. She continues to have mild sore throat but no bleeding. Biopsy was done due to hypertrophy of Waldeyer's ring on imaging. MADHU REYES MD 100 [facility],[place] [address], [place], [address], [place] - [facility] 04/29/2024 10:01:40 07/30/2024 text/html Hx of hypertroph [...] allergies with marginal benefit. MADHU REYES MD [address] [facility],[place] [address], [place], [address], [place] - [facility] 07/30/2024 08:52:32 OBGyn Episode No OBEpisode recorded.
--- OUTSIDE RECORDS SUMMARY | 2025-03-17 13:59 | XMS_ITS | Encounter Summary ---
Author Organization [employer] Address [address] [place] [address] [address] [place] [address] Care Team Providers Care Rubber Off Name Role Phone Mychal Fields MD Primary Care Provide r Hima Fam Unavailable Unavailable Yaneth Dotson RN Unavailable [phone] Mckenzie Silverio Unavailable Encounter Details Date Type Department Care Team (Late st Contact Info) Description 12/05/[address] [facility] [address] [place], [place] [phone] Veda Isabel LPN Social History Tobacco Use [...] Description 04/16/2025 11:30 AM EDT Office Visit [facility] [address] [place], [place] [phone] Mychal Fields MD [address] [place], [place] [phone] documented as of this encounter Visit Diagnoses Not on filedocumented in this encounter Additional Health Concerns Assessment Noted Time PHQ-9 Depression Total Score: 7 10/09/19 23 4:00 PM EST documented as of this encounter Care Teams Rubber Off Relationship Specialty Start Date End Date Mychal Fields MD [address] [place] [address] PCP - General Internal Medicine 04/30/14 Hima Fam FNP [address] [place] [address] Nurse Practitioner Family Medicine 08/01/23 Yaneth Dotson, ALAN [address] [place] [address] Registered Nurse Family Medicine 02/24/25 Mckenzie Sliverio 02/24/25 [employer] 02/13/25 documented as of this encounter
--- OUTSIDE RECORDS SUMMARY | 2025-03-17 13:59 | XMS_ITS | Encounter Summary ---
Author Organization [facility] Address [address] [place] [address] Care Team Providers Care Medical Van Driver Name Role Phone Mychal Long MD Primary Care Provi julio cesar Encounter Details Date Type Department Care Team (Late st Contact Info) Description 02/26/2025 Telephone Thoracic Surgery - [address] [address] Teodora Walker [place] Social History Tobacco Use Types Packs/Day Years Used Date Smoking Tobacco: Former Cigarettes 0.8 30.4 1 995 - 02/10/2025 Alcohol Use Standard Drinks/Week Comments Not Currently 0 (1 standard drink = 0.6 oz pur e alcohol) Interpersonal Safety Answer Date Record ed Physical Abuse 02/11/2025 Verbal Abuse 02/11/2025 Comments No Sex and Gender Information Value Date Recorded Sex Assigned at Not on file Legal Sex Female 8:17 PM EST Gender Identity Not on file Sexual Orientation Not on file documented as of this encounter Plan of Treatment Not on file documented as of this encounter Visit Diagnoses Not on filedocumented in this encounter Care Teams Medical Van Driver Relationship Specialty Start Date End Date Mychal Long MD [address] [place] [address] [place] [address] PCP - General 12/26/11 documented as of this encounter
[2025-03-17] MEDS: iohexoL 350 MG/ML 100 ML INFUS..BTL IV (14:03)
[2025-03-19 09:55] LABS: Creatinine POC 0.8 mg/dL (0.5-1.4); GFR POC > 60
[2025-03-20 12:08] LABS: Anti Nuclear Antibody Screen NEGATIVE (NEGATIVE)
== END 2025-03-17 13:20 | disposition home or self-care (01) ==
LOC: HO.CT 13:19
PROVIDERS: PCP Internal Medicine; Visit Provider Nurse Practitioner Family
DX: R59.0 Localized enlarged lymph nodes (principal); M25.50 Pain in unspecified joint
CPT/HCPCS: 36415; 71260; 82164; 82565; 86038; Q9967

== ENCOUNTER → 2025-03-17 13:21 | Outpatient (BNV) | payer MEDICAID, SELFPAY | PROVIDERS: PCP Internal Medicine; Visit Provider Radiology Diagnostic Radiology | DX: J90 Pleural effusion, not elsewhere classified (principal); J98.11 Atelectasis | CPT/HCPCS: 71260 ==

== ENCOUNTER 2025-03-17 17:58 | Emergency (ER) | payer MEDICAID, SELFPAY ==
[2025-03-17 18:10] VITALS: BP 131/70; PULSE 92; RESP 16; TEMP 36.8; O2SAT 98; BMI 37.8
--- NOTE | 2025-03-17 18:14 | ED_ITS ---
HPI - General Adult General Chief complaint: General Medical Stated complaint: ?fluid in lungs sent by umbrella supervisor Time Seen by Provider: 03/17/25 18:52 History of Present Illness ED Provider: Jm Graves MD HPI narrative: This is a 54-year-old female who recently had? VATS transthoracic lymph node biopsies it looks like they entered both pleural cavities and possibly the mediastinum through an anterior or subcostal approach. She herself is not privy to full description of the procedure. She said she had a chest CT and was sent in by her her pulmonology nurse practitioner for evaluation however only reports mild dyspnea on exertion no cough or hemoptysis or fever does not feel ill denies chest pain Related Data Home Medications ?Medication ?Instructions ?Recorded ?Confirmed amlodipine 10 mg tablet 10 mg PO DAILY 06/28/2101/10 cholecalciferol (vitamin D3) 50 50 mcg PO DAILY 02/06/25 mcg (2,000 unit) tablet (Vitamin D3) clonazepam 1 mg tablet 1 mg PO TID PRN Anxiety 06/1002/06/25 losartan 100 mg tablet 100 mg PO DAILY 06/28/21 blood pressure test kit-large #1 ea 11/19/23 02/06/25 minoxidil 2.5 mg tablet 2.5 mg PO QAM 04/07/2402/06 Previous Rx's ?Medication ?Instructions ?Recorded sennosides 8.6 mg capsule (senna) See Rx Instructions PO BEDTIME 02/08/23 constipation 30 days #60 caps tramadol 50 mg tablet 50 mg PO TID PRN pain 30 day s #90 11/14/24 tabs albuterol sulfate 90 mcg/actuation 2 puff PO Q4H PRN f or dyspnea #18 01/28/25 aerosol inhaler (Ventolin HFA) ea fluticasone furoate 200 1 inh inhalation DAILY #60 e a 02/16/25 mcg-vilanterol 25 mcg/dose inhalation powder (Breo Ellipta) furosemide 20 mg tablet 20 mg PO Q OTHER DAY 4 days #2 tabs 03/17/25 Allergies Allergy/AdvReac Type Severity Reaction Status Date / Time metronidazole Allergy Severe vomiting Verified 03/17/25 18:10 Penicillins Allergy Mild VAGINAL Verified 03/17/25 18:10 FUNGUS INFECTION lisinopril (LISINOPRIL) Allergy Unknown COUGH Verified 03/17/25 18:10 verapamil Allergy Unknown unknown Verified 03/17/25 18:10 amoxicillin AdvReac Unknown Verified 03/17/25 18:10 [facility] Past Medical History Medical History Cataract, right eye Bilateral primary osteoarthritis of knee Gallstone pancreatitis Palpitations Fibromyalgia Depression Glaucoma HTN (hypertension) Surgical History H/O colonoscopy History of tubal ligation Hx of carpal tunnel repair Hx of cholecystectomy Hx of knee surgery Family History Family History Father Kidney disease Mother CVD (cardiovascular disease) Colon cancer Social History Social History Alcohol intake: never Patient Tobacco Use Status: Current everyday Tobacco user Cigarette Packs Per Day: 0.5 Cigarettes Per Day: 10 Years Smoked: 30 Physical Exam ED Vital Signs: Vital Signs - 24 hr 03/17/25 18:10 Temperature 98.3 F Pulse Rate 92 Respiratory Rate 16 Blood Pressure 131/70 Pulse Oximetry 98 Oxygen Delivery Method Room Air BMI result Body Mass Index 37.8 EXAM: Gen: Alert, awake, well appearing, well hydrated. Head: Atraumatic Eyes: Anicteric, Normal conjunctiva. ENT: Moist mucosa, no pallor. ? Neck: Supple. Skin: ?No observable rash or bruising on exposed or examined skin Respiratory: Breathing comfortably, No distress.Clear to auscultation bilaterally, symmetric chest expansion, No wheeze, rales, ronchi. Cardiovascular: Regular rate and rhythm. No murmurs or rub. Well perfused periphery, warm extremities. No edema. ? Abdominal: No focal tenderness. Soft, no objective distension. No palpable masses or obvious organomegaly. ?No guarding, no rebound tenderness or other peritoneal findings. : No flank tenderness. Neuro: Alert. Gross movement of all extremities intact. ? Psych: Calm. Cooperative. MSK: No grossly visible deformity. Vital signs: See flowsheet Course Course Course Narrative: RME: 54-year-old female status post right lung surgery at [facility] in February presents to ED for bilateral pleural effusion diagnosed by chest CT done this morning. Patient was called by her primary care provider to come back to the ED. labs ordered. Patient is stable vital signs stable charted was made aware. Medications Administered Discontinued Medications Generic Name Dose Route Start Last Admin Trade Name Freq PRN Reason Stop Dose Admin Furosemide 20 mg 03/17/25 19:10 03/17/25 19:36 Furosemide 20 Mg/2 Ml Vial IVPUSH 03/17/25 19:11 20 mg ONCE ONE Administration Protocol Medical Decision Making Medical Decision Making MDM Narrative: Medical Decision Makin-year-old female well-appearing without hypoxia or abnormal vital signs sent in for evaluation after CT showed pleural effusions these appeared new. This is weeks after biopsy of lymph nodes they do not yet know the pathology of this. Questioned sarcoidosis per the pulmonology note and my discussion with the umbrella supervisor CERTIFIED DIABETES EDUCATOR. Preliminary Favored Differential Diagnosis: Sarcoidosis, malignant effusions, heart failure fluid overload, less likely hemorrhagic or post procedural complication, pneumothorax among additional considered etiologies Testing Interpreted Independently: ECG sinus rhythm rate 89 QTC 430, TN 132. Radiology or Lab testing Results Reviewed: CT images and report by Radiology reviewed by myself Consults: I had a discussion about the results the ED workup and evaluation and planning of care with the nurse practitioner from pulmonology Independent Historians/External Chart Reviews: Not Applicable Social Determinants of Health Impacting MDM/Planning: Not Applicable Lab Data 03/17/25 18:42 03/17/25 18:42 Labs: Lab Results 03/17/25 03/17/25 Range/Units 18:42 19:24 WBC 8.9 (4.8-10.8) X10*3/uL RBC 4.08 L (4.20-5.50) X10*6/uL Hgb 11.9 L (12.0-16.0) g/dl Hct 34.7 L (37.0-47.0) % MCV 85.0 (80.0-98.0) fL MCH 29.2 (27.0-33.0) pg MCHC 34.3 (31.0-35.0) g/dl RDW 12.9 (11.0-16.0) % Plt Count 276 (160-400) X10*3/uL MPV 9.0 L (9.4-12.3) fL Immature Gran % (Auto) 0.1 (0.0-0.4) % Neut % (Auto) 46.0 (45-73) % Lymph % (Auto) 31.5 (20-40) % [place] % (Auto) 4.0 (2-11) % Eos % (Auto) 17.8 H (0-4) % Baso % (Auto) 0.6 (0-2) % Lymph # (Auto) 2.8 (1.2-4.9) X10*3/uL [place] # (Auto) 0.4 (0.1-1.2) X10*3/uL Eos # (Auto) 1.6 H (0.0-0.4) X10*3/uL Baso # (Auto) 0.1 (0.0-0.2) X10*3/uL Abs Immat Gran (auto) 0.01 (0.00-0.03) X10*3/uL Absolute Neuts (auto) 4.1 (2.0-8.3) x10*3/uL Absolute Nucleated RBC 0.000 (0.0-0.012) X10*3/uL Nucleated RBC % (auto) 0.0 (0.0-0.2) /100WBC Sodium 141 (135-145) mmol/L Potassium 3.7 (3.3-5.1) mmol/L Chloride 109 H (96-108) mmol/L Carbon Dioxide 23 (22-29) mmol/L Anion Gap 13 (12-20) BUN 9 (9-16) mg/dL Creatinine 1.03 (0.5-1.4) mg/dL Estim Creat Clear Calc 69.1 Estimated GFR 56 Random Glucose 137 H (60-115) mg/dL Calcium 9.1 (8.4-10.2) mg/dL Total Bilirubin 0.2 (0.0-1.0) mg/dL AST 18 (5-31) U/L ALT 12 (0-31) U/L Alkaline Phosphatase 106 (39-117) U/L Troponin I High Sens 37.1 H D < 2.7 D (<3.5-17.0) ng/L B-Natriuretic Peptide 11 (<100) pg/mL Total Protein 7.2 (6.5-8.0) g/dL Albumin 3.9 (3.5-5.0) g/dL Discharge Plan Discharge Clinical Impression: Pleural effusion Patient Disposition: Home, Self-Care Instructions: Pleural Effusion (DC) Additional Instructions: _ DISCHARGE DIAGNOSES: Shortness of breath. Pleural effusions or fluid surrounding the lungs on both side HISTORY OF PRESENTATION: ?CT scan done today showing pleural effusions EMERGENCY DEPARTMENT COURSE,TESTS, TREATMENTS: While in the ED today we did lab work and did not echocardiogram which showed no significant abnormalities. Your oxygen level was safe. We discussed the case with your pulmonology team DISCHARGE MEDICATIONS: ?[We have made no changes to your regular medication regimen] we have however added a diuretic to remove some fluid from your body this should alleviate some of the fluid around the chest but we will make you urinate more frequently. You may want to take this in the morning. Call your pulmonology team tomorrow to discuss continuing this medication I am only ordering this were 4 additional days FOLLOW-UP: ?Call your primary or general physician soon as possible to discuss your symptoms, your ED visit and to discuss follow up plans Call your pulmonology team tomorrow to discuss follow up INSTRUCTIONS ?& RETURN PRECAUTIONS: If any symptoms change first call your primary physician, if it is after-hours your primary doctors office should have a provider environmental services director you can speak with. If the symptoms are severe or very concerning to you then call 911 or return to the ED. Jm Graves MD Emergency Physician [facility] Prescriptions: New furosemide 20 mg tablet 20 mg PO Q OTHER DAY 4 Days Qty: 2 0RF No Action albuterol sulfate [Ventolin HFA] 90 mcg/actuation HFA aerosol inhaler 2 puff PO Q4H PRN (Reason: for dyspnea) Qty: 18 0RF fluticasone furoate-vilanterol [Breo Ellipta] 200-25 mcg/dose blister with device 1 inh inhalation DAILY Qty: 60 3RF clonazepam 1 mg tablet 1 mg PO TID PRN (Reason: Anxiety) cholecalciferol (vitamin D3) [Vitamin D3] 50 mcg (2,000 unit) tablet 50 mcg PO DAILY losartan 100 mg tablet 100 mg PO DAILY amlodipine 10 mg tablet 10 mg PO DAILY senna 8.6 mg capsule See Rx Instructions PO BEDTIME 30 Days Qty: 60 6RF Rx Instructions: 1-2 tabs qhs orally bedtime; (DME) blood pressure test kit-large Kit See Rx Instructions .ROUTE QAM Qty: 1 Rx Instructions: As directed minoxidil 2.5 mg tablet 2.5 mg PO QAM tramadol 50 mg tablet 50 mg PO TID PRN (Reason: pain) 30 Days Qty: 90 5RF Referrals: Mychal Long MD [Primary Care Provider, Medical] Referral Note: And call your pulmonology team tomorrow Interventions: ED Discharge Assessment Last Done: 03/17/25 20:09 Discharge Date/Time: 03/17/25 20:10 Print Language: Bulgarian
--- NOTE | 2025-03-17 18:15 | ECG_ITS ---
Test Reason : PLEURAL EFFUSION Blood Pressure : */* mmHG Vent. Rate : 89 BPM Atrial Rate : 89 BPM P-R Int : 132 ms QRS Dur : 74 ms QT Int : 354 ms P-R-T Axes : 44 6 -7 degrees QTcB Int : 430 ms Normal sinus rhythm Septal infarct (cited on or before 05-Aug-2024) Abnormal ECG When compared with ECG of 05-Aug-2024 18:08, No significant change was found Referred By: Semaj Alexander Electronically Signed By: Roque Gongora
[2025-03-17 18:46] LABS: MANUAL DIFF FLAG NO
[2025-03-17 18:47] LABS: Hematocrit 34.7 % (37.0-47.0); Hemoglobin 11.9 g/dl (12.0-16.0); Imm Gran Abs Auto 0.01 X10*3/uL (0.00-0.03); Imm Gran Pct Auto 0.1 % (0.0-0.4); Lymphocytes Absolute Auto 2.8 X10*3/uL (1.2-4.9); Mean Corpuscular HGB Conc 34.3 g/dl (31.0-35.0); Mean Corpuscular Hemoglobin 29.2 pg (27.0-33.0); Mean Corpuscular Volume 85.0 fL (80.0-98.0); NRBC Abs Auto 0.000 X10*3/uL (0.0-0.012); NRBC Pct Auto 0.0 /100WBC (0.0-0.2); Platelet Count 276 X10*3/uL (160-400); Red Blood Count 4.08 X10*6/uL (4.20-5.50); White Blood Count 8.9 X10*3/uL (4.8-10.8)
[2025-03-17 19:02] LABS: Alanine Aminotransferase 12 U/L (0-31); Albumin Level 3.9 g/dL (3.5-5.0); Alkaline Phosphatase 106 U/L (39-117); Anion Gap 13 (12-20); Aspartate Amino Transferase 18 U/L (5-31); Blood Urea Nitrogen 9 mg/dL (9-16); Calcium 9.1 mg/dL (8.4-10.2); Carbon Dioxide 23 mmol/L (22-29); Chloride 109 mmol/L (96-108); Creatinine Clr Calc Pharmacy 69.1; Estimated Glomerular Filt Rate 56; Potassium 3.7 mmol/L (3.3-5.1); Sodium 141 mmol/L (135-145); Total Protein 7.2 g/dL (6.5-8.0)
[2025-03-17 19:08] LABS: B Type Natriuretic Peptide 11 pg/mL (<100)
[2025-03-17 19:09] LABS: Troponin-I High Sensitivity 37.1 ng/L (<3.5-17.0)
[2025-03-17 19:36] VITALS: BP 125/68
[2025-03-17] MEDS: Furosemide 20 MG/2 ML VIAL IVPUSH (19:36)
[2025-03-17 19:53] LABS: Troponin-I High Sensitivity < 2.7 ng/L (<3.5-17.0)
[2025-03-17 20:09] VITALS: BP 125/68; PULSE 82; RESP 18; TEMP 36.8; O2SAT 99
== END 2025-03-17 20:10 | disposition home or self-care (01) ==
PROVIDERS: Physician Assistant; Emergency Provider Emergency Medicine; PCP Internal Medicine
DX: J90 Pleural effusion, not elsewhere classified (principal); R06.00 Dyspnea, unspecified; F17.210 Nicotine dependence, cigarettes, uncomplicated; I10 Essential (primary) hypertension; J45.909 Unspecified asthma, uncomplicated
CPT/HCPCS: 36415; 80053; 83880; 84484; 85025; 93005; 96374; 99284; 99285; J1938

== ENCOUNTER → 2025-03-17 18:15 | Outpatient (BNV) | payer MEDICAID, SELFPAY | PROVIDERS: Emergency Provider Emergency Medicine; PCP Internal Medicine; Visit Provider Internal Medicine Cardiovascular Disease | DX: I25.2 Old myocardial infarction (principal) | CPT/HCPCS: 93010 ==

== ENCOUNTER 2025-03-23 14:01 | Outpatient (AMB) | payer MEDICAID, SELFPAY ==
[2025-03-23 14:08] VITALS: BP 124/70; PULSE 96; RESP 18; O2SAT 97; BMI 37.7
--- NOTE | 2025-03-23 14:08 | A.OFFVIS_ITS ---
Vital Signs 03/23/25 14:08 Height 5 ft 3 in Weight 212 lb 11.937 oz BMI 37.7 BP 124/70 Blood Pressure Location Lt brachial Position Sitting Respiration 18 Pulse 96 Pulse Source Pulse Oximeter Pulse Oximetry (%) 97 Oxygen Delivery Method Room Air Intake Visit Reasons: Pulmonary Nodule/ ER FU Joint Terminal Attack Controller Required: No Allergies metronidazole Allergy (Severe, Verified 03/23/25 14:08) vomiting Penicillins Allergy (Mild, Verified 03/23/25 14:08) VAGINAL FUNGUS INFECTION lisinopril (LISINOPRIL) Allergy (Unknown, Verified 03/23/25 14:08) COUGH verapamil Allergy (Unknown, Verified 03/23/25 14:08) unknown amoxicillin Adverse Reaction (Verified 03/23/25 14:08) Unknown HPI HPI Pulmonary Nodule/ ER FU: Details: Elaine is a pleasant 54 year old female, current smoker, with 30 pack year history, with underlying asthma, JERRI on CPAP managed through [facility], HTN and depression. At baseline patient reports moderate control of respiratory symptoms on Breo. improvement in respiratory symptoms. Chest CT performed in June 2024 revealed stable anterior mediastinal lymphadenopathy/mass measuring 3.1 cm in the largest dimension and pulmonary nodules <2mm, compared to CT chest 12/2024 revealed a few enlarged and prominent mediastinal lymph nodes, prevascular lymph node measuring 3.3 x 1.6 cm. After discussion of CT results patient was referred to Dr. Kern, thoracic surgery for further evaluation. 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 Unfortunately, she proceeded with previously ordered chest CT performed on 03/17/25 which noted moderate bilateral effusions and patient reported overall feeling unwell with associated dry cough, no change in dyspnea. BNP 11, prior echo 2020 unremarkable. She was directed to the ED, however discharged without changes to medication regimen. She was also instructed to call Dr. Kern to inform him of findings and has an appt tomorrow with his office. Of note, patient had stopped smoking 20 days prior to surgery however has restarted now smoking about 6 cigarettes per day interested in NRT. [facility] Medical History Cataract, right eye Bilateral primary osteoarthritis of knee Gallstone pancreatitis Palpitations Fibromyalgia Depression Glaucoma HTN (hypertension) Surgical History H/O colonoscopy History of tubal ligation Hx of carpal tunnel repair Hx of cholecystectomy Hx of knee surgery Family History Father Kidney disease Mother CVD (cardiovascular disease) Colon cancer Social History Alcohol intake: never Patient Tobacco Use Status: Current everyday Tobacco user Cigarette Packs Per Day: 0.5 Cigarettes Per Day: 10 Years Smoked: 30 Female Reproductive History Menstrual Age of Menarche: 9 Review of Systems Const Denies chills, Denies excessive sweating, Denies fever(s), Denies headache(s) and Denies night sweats Eyes Denies dry eyes, Denies irritation and Denies itchy eyes ENT Reports Normal hearing present and Denies headache(s) Card Denies chest pain, Denies chest pain at rest, Denies chest pain with activity, Denies claudication, Denies leg edema, Denies orthopnea and Denies paroxysmal nocturnal dyspnea Resp Denies chest congestion, Denies excessive phlegm production, Denies pain on inspiration, Denies pain with cough, Denies stridor and Denies wheezing Musc Denies myalgias Neuro Reports Normal hearing present and Denies headache(s) Endo Denies excessive sweating Jhonathan/Lymph Denies lymphadenopathy Aller/Immun Denies itchy eyes, Denies seasonal rhinorrhea and Denies wheezing Physical Exam Vital Signs: Last Vital Signs Pulse 96 03/23/25 14:08 Resp 18 03/23/25 14:08 BP 124/70 03/23/25 14:08 Pulse Ox 97 03/23/25 14:08 Oxygen Delivery Method Room Air 03/23/25 14:08 BMI result Body Mass Index 37.7 Const General: cooperative, healthy appearing, comfortable, no acute distress, well developed and alert Orientation/consciousness: patient oriented x3 Limitations: no limitations HEENT Head: Yes normal to inspection, Yes normocephalic and Yes atraumatic Ears: hearing grossly normal bilaterally and external ears normal Eyes General: appearance normal, both eyes and all related structures Eyelids: Yes eyelids normal Sclerae: sclerae normal EOM: EOMs intact bilaterally Neck Neck: Yes normal visual inspection and Yes no lymphadenopathy Lymphatic: no lymphadenopathy noted Chest Chest palpation & inspection: normal inspection of the chest Resp Other: faint inspiratory crackles of RLL Effort & Inspection: normal respiratory effort, able to speak in complete sentences, no audible wheezes, no cough, no stridor, not tachypneic, no tripod positioning and no use of accessory muscles Cardio Jugular venous distension: no JVD Rate: regular rate Rhythm: regular rhythm Skin Other: warm, dry General skin exam: no rashes or lesions noted Neuro General: patient oriented x3 Cranial nerves: Yes Normal hearing present Cognition (Neuro): normal cognition Gait exam (Neuro): Normal gait present Extrem General: Yes normal to inspection, Yes capillary refill normal, Yes no clubbing, cyanosis or edema and Yes no pedal edema Psych Appearance: grossly normal and well kempt Speech and movement: Normal speech and movement present and Clear speech present Affect: normal affect Attitude: cooperative Thought process: Normal thought process present Thought content: Normal thought content present Insight: Good insight present (Psych) Judgement: Good judgement present (Psych) Results Reviewed Results Reviewed: [place] [id number] CT Scan Report Signed Patient: Elaine Rodas MR#: [id number] : 1970 Acct:[id number] Age/Sex: 54 / F ADM Date: 03/17/25 Loc: HO.CT Attending Dr: Amy Zimmerman NP Ordering Physician: Amy Zimmerman NP Date of Service: 03/17/25 Procedure(s): CT chest w IV con Accession Number(s): [id number] cc: Mychal Long MD; Amy Zimmerman NP~ Report Number: [id number]: Total DLP = 344.00 mGy-cm EXAMINATION: CT CHEST WITH CONTRAST CLINICAL INFORMATION: Localized enlarged lymph nodes. COMPARISON: December 16, 2024. TECHNIQUE: Multidetector volumetric CT imaging of the chest was obtained after the administration of 65 mL of Omnipaque 350 intravenous contrast without immediate adverse reactions. Axial MIP volume rendering provided. Sagittal and coronal reformatted images were obtained. This CT examination was performed using dose optimization techniques as appropriate, variously including the following: *Automated exposure control *Adjustment of mA and/or kV according to patient size (this includes techniques or standardized protocols for targeted exams where dose is matched to indication/reason for exam; i.e. extremities or head) *Use of iterative reconstruction technique DLP: 344 mGy centimeter. FINDINGS: CUTLERY GRINDER: Patient's large body habitus. LUNGS: Linear attenuation abnormalities in the upper lung lobes, right middle lung. Confluent attenuation with air bronchograms in the lung bases. No bronchiectasis. No honeycombing. MEDIASTINUM: No lymphadenopathy. Small pericardial effusion. No pneumomediastinum. No aneurysm or dissection, thoracic aorta. Calcified plaques in the coronary arteries. PLEURA: Bilateral pleural effusions, moderate to large volume. No pneumothorax. No hemothorax. No calcified pleural plaques. AXILLA: No lymphadenopathy. UPPER ABDOMEN: There is a midline incision /scarring extending into the inferior sternum epigastric region without fluid collection. OSSEOUS STRUCTURES: Multilevel spondylosis. No acute fracture or listhesis. No lytic or blastic lesions. CT/CT chest w IV con IMPRESSION: Recent midline incision/scarring inferior to the sternum/epigastric region without fluid collection. Bilateral pleural effusions, moderate volume with mild interstitial lung edema and atelectasis in the lung bases Communicated via [employer] to nurse practitioner Amy Zimmerman on March 17, 2025 at 2:16 PM. Fleischner guidelines were followed. 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 Kern on 02/11, findings reportedly negative, will obtain report. Subsequently underwent chest CT which revealed moderate bilateral pleural effusions and sent to ED for further evaluation. Upon exam patient not in respiratory distress and no significant findings. She will be following up with Dr. Kern's office tomorrow. Discussed need for pleural fluid evaluation via thoracentesis to determine underlying etiology, will obtain records from Dr. Kern's office to determine plan through their office. Will send for CXR today to assess status of effusions and send for updated echo. Patient interested in NRT will send nicotine patches and patient aware not to smoke while using. All questions were answered and patient is in agreement of plan. Will follow up in 4 weeks or sooner if needed. Orders: Orders XR chest 2V 03/23/25 J90 - Pleural effusion, not elsewhere classified Medications: New nicotine 1 patch transdermal Q24H 28 ea 0RF Coding Level of Care Code Est Pt Level 4 (02975) Complex EM visit Add On G2211 Diagnoses Pleural effusion J90 Asthma J45.909 Mediastinal lymphadenopathy R59.0 Nicotine dependence F17.200
--- OUTSIDE RECORDS SUMMARY | 2025-03-23 15:24 | XMS_ITS | Encounter Summary ---
Author Organization [facility] Address [address] [place] [address] Care Team Providers Care Remote Encoding Operations Supervisor Name Role Phone Mychal Long MD Primary Care [facility] Encounter Details Date Type Department Care Team (Late Contact Info) Description 02/26/2025 Telephone Thoracic Surgery - [facility] [address] [phone] Teodora Walker MA Social History Tobacco Use [...] Care Team (Late st Contact Info) Description 03/24/2025 2:30 PM EDT Office Visit Thoracic Surgery - [place] [address] [phone] Linda Ureña NP [address] [id number] documented as of this encounter Visit Diagnoses Not on filedocumented in this encounter Care Teams Remote Encoding Operations Supervisor Relationship Specialty Start Date End Date Mychal Long MD [address] [place] [address] [place] [facility] [place] [phone] PCP - General 12/26/11 documented as of this encounter
--- OUTSIDE RECORDS SUMMARY | 2025-03-23 15:24 | XMS_ITS | Encounter Summary ---
Author Organization [employer] Address [address] [place] [address] [address] [place] [address] Care Team Providers Care Svp [employer] Name Role Phone Mychal Fields MD Primary Care Provide r Hima Fam Unavailable Unavailable Yaneth Dotson RN Unavailable [phone] Mckenzie Silverio Unavailable Reason for Visit * Reason Comments Care Coordination Appt reminder Encounter Details Date Type Department Care Team (Latest Contact Info) Description 03/20/2025 Patient Outreach [facility] MEDICINE [address] [place], [place] [phone] Mychal Fields MD [address] [place], [place] [phone] Care Coordination (Appt reminder) Social History Tobacco Use Types Packs/Day Years Used Date Smoking Tobacco: Every Day Cigarettes Passive Smoke Exposure: Current Smokeless Tobacco: Never Alcohol Use Standard Drinks/Week Comments Never 0 (1 standard drink = 0.6 oz pur e alcohol) Depression Answer Date Recorded Patient Health Questionnaire-9 Score 4 03/04/2025 Patient Health Questionnaire-9 Score 4 03/04/2025 Last PHQ-9: Questionnaire Data Not on file 0 03/04/2025 Housing Stability Answer Date Recorded What is your housing situation today? I have gee staley 05/15/[address] you li ve. Do you have problems with any of the following? None of the above 05/15/2024 Food Insecurity Answer Date Recorded Within the past 12 months, y ou worried that your food would run out before you got money to buy more: Sometimes True 2024 Within the past 12 months,th e food you bought just didn't last and you didn't have enough money to get more: Sometimes True 03/04/2025 Transportation Answer Date Recorded In the past 12 months, has l ack of transportation kept you from medical appts, meetings, work or from getting things needed for daily living? Yes, it has kept me from medical appointments or getting medications. 03/04/2025 Utilities Answer Date Recorded In the past 12 months, has t he electric, gas, oil or water [employer] threatened to shut off services in your home? No 05/15/2024 Depression Answer Date Recorded Patient Health Questionnaire-2 Score 1 03/04/2025 Internet Access Answer Date Recorded Internet Access [...] AM EDT documented as of this encounter Progress Notes * Mckenzie Silverio - 03/20/2025 9:35 AM EDT CHW Mckenzie Silverio placed call to patient to remind of appt on 03/23/25 215pm [place] [facility] [place] patient did not answer at this time. LVM with details of appt also that PT1 will be picking her up [id number]. CHW will follow up with patient within 10 days. documented in this encounter Plan of Treatment Upcoming Encounters Date Type Department Care Team (Late st Contact Info) Description 04/16/2025 11:30 AM EDT Office Visit [facility] MEDICINE [address] [place] [address] Mychal Fields MD [address] [place] [address] documented as of this encounter Visit Diagnoses Not on filedocumented in this encounter Additional Health Concerns Assessment Noted Time PHQ-9 Depression Total Score: 4 03/04/20 1:21 PM EDT documented as of this encounter Care Teams Svp Digital Sales Relationship Specialty Start Date End Date Mychal Fields MD [address] [place] [address] PCP - General Internal Medicine 04/30/14 Hima Fam FNP [address] [place] [address] Nurse Practitioner Family Medicine 08/01/23 Yaneth Dotson, ALAN [address] [place] [id number] Registered Nurse Family Medicine 02/24/25 Mckenzie Silverio 02/24/25 [employer] 02/13/25 documented as of this encounter
--- OUTSIDE RECORDS SUMMARY | 2025-03-23 15:25 | XMS_ITS | Data Portability ---
Author Organization [place] [facility] Address [address] [address] Care Team Providers Care Vp [employer] Name Role Phone GIACOMO MARX Primary Care Provider GIACOMO MARX Referring Provider Assessment Encounter Date Assessment Date Assessment LastModified by Organization Details LastModified Time 04/25/2024 04/25/2024 53-year-old female presents following DL with biopsy. Pathology was reviewed to be benign. 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 Overall reassurance was provided. follow up as scheduled. [email or web address] Not available 04/28/2024 15:04:21 Plan of Treatment [...] observ ation record ed. [email or web address] [facility] [place] [address] [facility] [address], [place], [address], 02/25/2024 09:12:35 03/31/20 24 03/31/2024 US, neck, soft tissu e No observ ation record ed. [email or web address] [address] [facility], [place], [address], 04/11/2024 16:05:21 04/28/20 24 04/10/2024 clini bertha photo * No observ ation record ed. [email or web address] Not Available 17:00:02 04/29/20 24 05/08/2023 imagi ng/di agnos tic resul t No observ ation record ed. [email or web address] Not Available 21:42:28 Result Notes None recorded. Problems Name Problem SNOMED Code Status Onset Date Resolution Date Notes Provider Name and Address Organization Details Recorded Time Thyroid nodule 816168290 Active 2023 MADHU REYES MD 100 [facility], [place], [address] , [place] - [facility] 16:36:38 Hypertrop hy of tonsils AND adenoids 16245619 Active 2023 MADHU REYES MD 100 [facility] [address], [place], [address] , [place] - [facility] 4 16:36:47 Hypertrop hy of lingual tonsil 831301288 Active 2023 MADHU REYES MD 100 [facility],[place] [address], [place], [address] , [place] - [facility] 4 16:36:52 Non-toxic uninodula r goiter 524214758 Active 2023 Nontoxic single thyroid nodule; Note: Date Diagnosed : 01/18/2024 11:58 AM (E04.1) Not Available [facility] 4 02:45:01 Mass of neck 342955358 Active 2023 Localized swelling, mass and lump, neck; Note: Date Diagnosed : 11/08/2023 11:56 AM (R22.1) Not Available [facility] 4 02:45:02 Neck swelling 124293286 Active 2023 Localized swelling, mass and lump, neck; Note: Date Diagnosed : 11/08/2023 11:56 AM (R22.1) Not Available [facility] 4 02:45:02 Neck pain 52947798 Active 2023 Cervicalg ia; Note: Date Diagnosed : 11/08/2023 11:56 AM (M54.2) Not Available [facility] 4 02:45:02 Dysphagia 11622696 Active 2023 Dysphagia , unspecifi ed; Note: Date Diagnosed : 11/08/2023 11:56 AM (R13.10) Not Available [facility] 4 02:45:05 Obstructi ve sleep apnea of adult 56566985130 03 Active 2023 MADHU REYES MD 100 [facility] [address] [place], [address] , [place] - [facility] 4 08:48:15 Seasonal allergic rhinitis 953645028 Active 2023 MADHU REYES MD 100 [facility],[place] [address], [place], [address] , [place] - [facility] 4 08:52:06 Allergic rhinitis 95921031 Active 2023 MADHU REYES MD 100 [facility] [address], [place], [address] , [facility] - [facility] 4 08:52:17 Non-aller gic rhinitis 30233470110 1 Active 2023 MADHU REYES MD [address] [facility] [address], [place], [address] , [facility] - [facility] 4 08:52:17 Problem Notes None recorded. Procedures Surgical History Date Name Laterality Status Provider Name and Address Organization Details Recorded Time 4 LARYNGOSCOPY, DIRECT OPERATIVE WITH OPERATING MICROSCOPE OR TELESCOPE WITH BIOPSY (SURG) completed Paulo Faria [place] - [facility] 04/14/2024 09:38:40 4 FFL_RE completed MADHU REYES MD 100 [facility] [address], [place], [address], [facility] 03/18/2024 17:33:49 Imaging Results None recorded. [...] % eye drops active Medicatio n ID: [id number] Br and Name: latanopro st Send Method: E-Prescri bed Subs Allowed: subs OK Specia l Instructi on: PUT 1 DROP INTO BOTH EYES AT BEDTIME M edication GenericNa me: latanopro st Not Available Not Available Not Available terconazol e 0.4 % vaginal cream active Medicatio n ID: [id number] Br and Name: terconazo le Send Method: [...] 8.6 mg tablet active Medicatio n ID: [id number] Br and Name: sakshi [place] Method: E-Prescri [...] 20 mg tablet active Medicatio n ID: [id number] Br and Name: dicyclomi ne Send Method: [...] 10 mg tablet active Medicatio n ID: [id number] Br and Name: buspirone Send Method: E-Prescri [...] 100 mg capsule active Medicatio n ID: [id number] Br and Name: gabapenti n Send Method: [...] % topical gel active Medicatio n ID: [id number] Br and Name: diclofena c sodium Se nd Method: E-Prescri bed Subs Allowed: subs OK Specia l Instructi on: APPLY 1 INCH TOPICALLY IF NEEDED IN THE MORNING AND AT BEDTIME (PAIN). [facility] Generic me: diclofena c sodium Not Available Not Available Not Available Vitamin D3 50 mcg (2,000 unit) tablet TAKE 1 TABLET BY MOUTH EVERY DAY active Not Available Not Available No t Available Creon 24,000-76, 000-120,00 0 unit capsule,de layed release active Medicatio n ID: [id number] Br and Name: Creon Sen d Method: E-Prescri bed Subs Allowed: subs OK Specia l Instructi on: TAKE 1 CAPSULE BY MOUTH 4 TIMES A DAY. ADMINISTE R WITH MEALS AND OR SNACKS Va dicationG enericNam e: Creon Not Available Not Available Not Available blood pressure test kit-large cuff active Medicatio n ID: [id number] Br and Name: blood pressure test kit-large Send Method: E-Prescri bed Subs Allowed: subs OK Specia l Instructi on: USE TO CHECK BLOOD PRESSURE ONCE DAILY IN THE MORNING [facility] me: blood pressure test kit-large Not Available Not Available Not Available Dexilant 60 mg capsule, delayed release active Medicatio n ID: [id number] Br and Name: Dexilant Send Method: E-Prescri [...] Updated DateTime 03/18/2024 160.02 cm 36.8 kg/m2 99449.21 g Kodi Soni [place] [facility] 03/18/2024 16:16:00 Date Recorded Body height Body mass index (BMI) Body weight Provider Name and Address Organization Details Last Updated DateTime 04/25/2024 160.02 cm 36.8 kg/m2 75881.21 g Janeth Castro [place] [facility] 04/25/2024 15:19:15 Date Recorded Body height Body mass index (BMI) Body weight Provider Name and Address Organization Details Last Updated DateTime 07/30/2024 160.02 cm 36.8 kg/m2 92206.21 g Marley Rosalio [facility] 07/30/2024 08:31:21 Social History None recorded. Functional [...] Note [id number] MADHU REYES MD [facility] [address] [address] 03/18/2024 15:41:26 03/18/2024 17:01:09 Thyroid nodule 797236507 E04.1 I recommend a US guided FNA of the thyroid nodule. She will f/u to review. Hypertroph y of tonsils AND adenoids 70480798 J35.3 hypertroph y of Waldeyer's ring. lingual tonsil biopsy is less morbid to evaluate for lymphoma. see below. Hypertroph y of lingual tonsil 754104834 J35.3 I recommend direct laryngosco py with [...] We will schedule surgery mutually convenient time. [id number] CIERRA GARCIA PA-C [facility] [address] [address] 04/25/2024 15:12:06 04/30/2024 07:57:22 Hypertrophy of lingual tonsil 580135204 J35.3 Hypertroph y of tonsils AND adenoids 20609025 J35.3 Neck pain 52904213 M54.2 [id number] MADHU REYES MD [facility] [address] [place] [address] 07/30/2024 08:28:17 07/30/2024 08:55:15 Hypertrophy of lingual tonsil 537004294 J35.3 Biopsies negative. Gave reassuranc e. Continue observatio n. Deferred laryngosoc py today. Obstructiv e sleep apnea of adult 3259063787 103 G47.33 Agree with starting CPAP which is in process. Thyroid nodule 302923989 E04.1 Recommend repeat thyroid US at [facility] after next visit in 6 months. Seasonal a llergic rhinitis 169077333 J30.2 Exam and history are consistent with allergic rhinitis. We will obtain allergy testing to clarify the extent of allergy with f/u to review. Allergic rhinitis 903665 04 J30.9 Non-allergic rhinitis 31 34735671 01 J31.0 Health Concerns Section Related Observation LastModified by Organization Detai ls LastModified Time None Recorded Concern Status LastModified by Organization Details LastModified Time None Recorded Advance Directives Directive None Recorded Payers Insurance Date Sequence Insurance Name Policy Number Policy Tompkins Covered Member ID Tompkins Member ID Guarantor Name 02/27/2025 1 [place] [facility] Elaine Rodas [id number] Elaine Rodas Notes Date Note Type Note [...] her other doctors. [facility] MD [facility], [address], [place] - [facility] 03/18/2024 17:45:03 04/25/2024 text/html 53-year-old lorrie jacob presents following DL with biopsy. She continues to have mild sore throat but no bleeding. Biopsy was done due to hypertrophy of Waldeyer's ring on imaging. MADHU REYES MD 100 [facility],[place] [address], [place], [address], [place] - [facility] 04/29/2024 10:01:40 07/30/2024 text/html Hx of hypertroph [...] with marginal benefit. MADHU REYES MD [address] [facility],[place] [address], [place], [address], [place] [facility] 07/30/2024 08:52:32 OBGyn Episode No OBEpisode recorded.
== END 2025-03-23 14:42 | disposition home or self-care (01) ==
LOC: HO.HPS 14:01
PROVIDERS: PCP Internal Medicine; Visit Provider Nurse Practitioner Family
DX: J90 Pleural effusion, not elsewhere classified (principal); J45.909 Unspecified asthma, uncomplicated; R59.0 Localized enlarged lymph nodes; F17.200 Nicotine dependence, unspecified, uncomplicated
CPT/HCPCS: 99214

== ENCOUNTER 2025-03-23 14:43 | Outpatient (REF) | payer MEDICAID, SELFPAY ==
--- NOTE | ~2025-03-23 | XR_ITS ---
EXAMINATION: XR CHEST CLINICAL INFORMATION: J90 - Pleural effusion, not elsewhere classified COMPARISON: Chest radiograph 09/22/2024. CT chest 02/15/2025. TECHNIQUE: 2 views of the chest were obtained. FINDINGS: The cardiac, hilar, and mediastinal contours are normal. Lungs otherwise small layering bilateral pleural effusions with associated bibasilar discoid and passive atelectasis. Discoid type atelectasis also noted in the left lower lung. Lungs are otherwise clear. There is no pneumothorax. There is no focal osseous or soft tissue abnormality. XR/XR chest 2V IMPRESSION: 1. Small layering pleural effusions with associated bibasilar passive and discoid atelectasis. Electronically signed by: Elias Courtney MD 03/23/2025 03:12 PM EDT
== END 2025-03-23 14:44 | disposition home or self-care (01) ==
LOC: HO.XRAY 14:43
PROVIDERS: PCP Internal Medicine; Visit Provider Nurse Practitioner Family
DX: J90 Pleural effusion, not elsewhere classified (principal); J45.909 Unspecified asthma, uncomplicated; R59.0 Localized enlarged lymph nodes; F17.200 Nicotine dependence, unspecified, uncomplicated; Z71.6 Tobacco abuse counseling
CPT/HCPCS: 71046; 99212

== ENCOUNTER → 2025-03-23 14:47 | Outpatient (BNV) | payer MEDICAID, SELFPAY | PROVIDERS: PCP Internal Medicine; Visit Provider Radiology Diagnostic Radiology | DX: J90 Pleural effusion, not elsewhere classified (principal); J98.11 Atelectasis | CPT/HCPCS: 71046 ==

== ENCOUNTER 2025-04-06 14:06 | Outpatient (AMB) | payer MEDICAID, SELFPAY ==
--- NOTE | 2025-04-06 14:36 | MHC.OFFVIS ---
Intake Visit Reasons: Cysto Intake Note: Patient presents today for a cystoscopy Urology Medications: none Blood Thinner: none Wheel And Pinion Inspector Required: Yes Wheel And Pinion Inspector Name: JAXWENDYGORGE GAUTAM Information Interpreted: non-clinical & clinical Accompanied by: Unknown Allergies metronidazole Allergy (Severe, Verified 04/06/25 14:36) vomiting Penicillins Allergy (Mild, Verified 04/06/25 14:36) VAGINAL FUNGUS INFECTION lisinopril (LISINOPRIL) Allergy (Unknown, Verified 04/06/25 14:36) COUGH verapamil Allergy (Unknown, Verified 04/06/25 14:36) unknown amoxicillin Adverse Reaction (Verified 04/06/25 14:36) Unknown Medication List - Last Reconciled 04/06/25 by Rosales Carter MD albuterol sulfate 90 mcg/actuation (Ventolin HFA) 2 puffs PO Q4H PRN amlodipine 10 mg PO DAILY blood pressure test kit-large As directed cholecalciferol (vitamin D3) (Vitamin D3) 50 mcg PO DAILY clonazepam 1 mg PO TID PRN fluticasone furoate-vilanterol 200-25 mcg/dose (Breo Ellipta) 1 inh inhalation DAILY furosemide 20 mg PO Q OTHER DAY 4 days losartan 100 mg PO DAILY minoxidil 2.5 mg PO QAM nicotine 1 patch transdermal Q24H sennosides (senna) 1-2 tabs qhs orally bedtime; 30 days solifenacin (Vesicare) 10 mg PO DAILY tramadol 50 mg PO TID PRN 30 days HPI Comments Details: 04/06/25--Here for office cystoscopy History of Present Illness - The patient is a 54-year-old female presenting with urinary symptoms. - She reports intermittent bladder pressure and urgency, which have been occurring recently. - She experiences urinary incontinence occasionally, with recent episodes of discolored urine. - A CT scan in October 2024 showed kidneys within normal limits, and urine cytology from February 06, 2025, was negative for malignant cells. - The patient has a history of nicotine use, having restarted smoking on February 11 but reports cessation as of today. Results - Cystoscopy today: No suspicious bladder lesions observed - CT scan (October 27, 2024): Kidneys within normal limits - Urine cytology (February 06, 2025): Negative for malignant cells Plan - Initiate Vesicare 10 mg daily to manage bladder spasms and associated discomfort during urination. - Follow-up with the nurse practitioner in three months to assess the effectiveness of the treatment. - Discussed potential side effects of the medication, including dry mouth. 02/06/25--The patient is a 54-year-old female presenting with hematuria. The presence of blood in her urine was affirmed through prior laboratory tests. She occasionally observes visible hematuria. Prior imaging, CT scan abdomen/pelvis with IV contrast notes the kidneys, within normal limits. Urine cytology was performed and showed no abnormal cells. The need for cystoscopy was discussed to thoroughly examine the bladder, especially since small lesions might have been undetected on the initial imaging. At this visit, she opted against undergoing the cystoscopy today. Another notable aspect is her smoking history, which elevates her risk for urinary tract malignancies. She states that she also has scheduled thoracic surgery for a mediastinal mass, following consultation with her lung specialist. She is willing to reschedule the office cysto. I will repeat urine cytology. Results - CT Scan (October 27, 2024): Kidneys appeared normal - Urine Cytology June,: No abnormal cells detected PFSH Medical History Cataract, right eye Bilateral primary osteoarthritis of knee Gallstone pancreatitis Palpitations Fibromyalgia Depression Glaucoma HTN (hypertension) Surgical History H/O colonoscopy History of tubal ligation Hx of carpal tunnel repair Hx of cholecystectomy Hx of knee surgery Family History Father Kidney disease Mother CVD (cardiovascular disease) Colon cancer Social History Alcohol intake: never Patient Tobacco Use Status: Current everyday Tobacco user Cigarette Packs Per Day: 0.5 Cigarettes Per Day: 10 Years Smoked: 30 Female Reproductive History Menstrual Age of Menarche: 9 Review of Systems Const All systems reviewed & are unremarkable except as noted in HPI and below Reports no additional complaints Eyes Reports no additional complaints ENT Reports no additional complaints Card Reports no additional complaints Resp Reports no additional complaints GI Reports no additional complaints Reports as per HPI Musc Reports no additional complaints Skin/Breast Reports system reviewed and no additional complaints, except as documented Neuro Reports no additional complaints Psych Reports no additional complaints Endo Reports no additional complaints Jhonathan/Lymph Reports no additional complaints Aller/Immun Reports no additional complaints Office Procedures Cystoscopy Consent Discussed risk and benefit or proposed procedure with the patient. Information consent for procedure given to the patient. Discussed technical aspects, risks, benefits and alternatives in full. Addressed all of the patient's questions and concerns regarding the procedure. The patient demonstrated knowledge and understanding. They wish to proceed with this procedure. Preparation The patient was prepped in the usual manner. A human resource consultant was present and in the room. Genitalia was prepped with betadine solution in a sterile manner. Lidocaine Jelly 2% was placed into the urethra and 16Fr flexible Olympus cystoscope was inserted into the meatus after adequate lubrication. Procedure Time out per protocol performed. Speculum used as indicated for adequate visualization of urethra, the flexible cystoscope is passed transurethrally: The bladder was inspected in its entirety with utilization retroflexion displaying: Tumor(s): no suspicious bladder lesions visualized Trabeculation: NA Mucosal Erthema: NA Urethra: normal Cystoscopy findings: no suspicious bladder lesions visualized [id number] DISPOSABLE SCOPE URO-G FLEXIBLE SCOPE Procedure code (CPT) selection complete Office Meds lidocaine HCl 2 % mucosal jelly in applicator Performing Provider: Rosales Carter MD Performing [facility] [place] [facility] Administered by: Danielle Leonard RN on 04/06/25 15:01 Dose Route Admin Location Dispensed Lot Number Expiration Date ND [employer] 10 mL intra-urethral 20 mL ciprofloxacin HCl 500 mg tablet Performing Provider: Rosales Carter MD Performing Location: [facility] [place] [facility] Administered by: Danielle Leonard RN on 04/06/25 15:01 Dose Route Admin Location Dispensed Lot Number Expiration Date NDC [employer] Developer 500 mg PO 1 tab phenazopyridine 200 mg tablet Performing Provider: Rosales Carter MD Performing Location: [facility] [place] [facility] Administered by: Danielle Leonard RN on 04/06/25 15:01 Dose Route Admin Location Dispensed Lot Number Expiration Date NDC [employer] 200 mg PO 1 tab Results Reviewed Results Reviewed: Collected: 02/06/25 Location: .[facility] Received: 02/09/25 Diagnosis Urine, cytology: Negative for high-grade urothelial carcinoma. COMMENT: Review of the cytology preparation demonstrates a paucicellular specimen composed of few squames and urothelial cells. Crystals and bacterial colonies are noted. There is no significant atypia seen. Clinical History Urinary tract infection Material Received Urine Gross Description Received is 24 cc of cloudy orange fluid from which a ThinPrep slide is prepared. Date of Service: 10/27/24 CLINICAL HISTORY: Mid abdominal pain CT abdomen and pelvis without contrast Comparison: CT/SR - CT ABDOMEN PELVIS W IV CON - 02/28/24 17:53 EDT Findings: No consolidation or effusion. The gallbladder is not visualized, presumed surgically absent. The solid organs are within normal limits. No renal stones. No bowel obstruction, pneumoperitoneum, or pneumatosis. Edema identified within the small bowel mesentery. Pelvic contents unremarkable. No bladder wall thickening. Minimal free fluid present within the pelvis. Normal appendix. The bones are intact. IMPRESSION: 1. [id number]-[id number] edema identified within the small bowel mesentery, possibly related to a nonspecific enteritis. The small bowel loops are at the upper limits of normal for size. No bowel obstruction demonstrated. 2. Minimal free fluid present dependently within the pelvis, possibly reactive or physiologic in etiology. Urine Cytology--Collected: 06/13/24 Location: [facility] Received: 06/16/24 Diagnosis Urine: Negative for high-grade urothelial carcinoma. COMMENT: Examination of a monolayer preparation slide shows many benign superficial squamous cells,, few benign urothelial cells, and few inflammatory cells and red blood cells. Clinical History Nicotine dependance, unspecified, uncomplicated Microscopic hematuria Material Received Urine Gross Description Received is 7 cc of very cloudy yellow/lloyd fluid from which a ThinPrep slide is prepared. Assessment & Plan Assessment & Plan (1) OAB (overactive bladder): Code(s): N32.81 - Overactive bladder Category: Medical (2) Nicotine dependence: Code(s): F17.200 - Nicotine dependence, unspecified, uncomplicated Category: Medical (3) Hematuria: Code(s): R31.9 - Hematuria, unspecified Category: Medical Plan Plan - Initiate Vesicare 10 mg daily to manage bladder spasms and associated discomfort during urination. - Follow-up with the nurse practitioner in three months to assess the effectiveness of the treatment. Orders: Orders AMB Cystoscopy Today R31.29 - Other microscopic hematuria Medications: New solifenacin (Vesicare) 10 mg PO DAILY 30 tabs 5RF Patient Instructions: The patient had an opportunity to ask questions regarding treatment plan. The patient expressed understanding and agreement with the above treatment plan. The patient is aware they should contact our office by phone for worsening of their current condition or the appearance of new symptoms. Compliance is encouraged with any medications and followup testing that is ordered. It is a privilege to be allowed the opportunity to participate in the urologic care of your patient. If you have any questions or concerns regarding treatment for the above conditions please do not hesitate to contact me. The office telephone contact is [phone]. This note is constructed in part using voice recognition software. While every effort has been made to ensure accuracy trucking contractor errors may have been included. Yours sincerely, Rosales Carter MD Scribe Plan - Not visible on output: Patient was informed and verbally consented to the use of an ambient scribe for clinic note documentation during this visit. Coding Level of Care Code Est Pt Level 4 (39493) Diagnoses OAB (overactive bladder) N32.81 Nicotine dependence F17.200 Hematuria R31.9 CPT Codes Cystoscopy - CPT: 17635-[id number] ([id number])
--- OUTSIDE RECORDS SUMMARY | 2025-04-06 14:51 | XMS_ITS | Clinical Summary ---
Author Organization [facility] 299 [facility] Address [address] [place] [address] Phone Care Team Providers Care Electronic Typesetting Machine Operator Name Role Phone Mychal Long MD Primary Care Provi julio cesar Allergies Active Allergy Reactions Criticality Noted Date Comments Lisinopril Cough High 10/25/2010 Other reaction(s): unspecified Penicillins Other 04/10/2024 YEAST INFECTION Verapamil Unknown 10/25/2010 Other reaction(s): unspecified Other Reaction(s): unknown Medications amLODIPine (NORVASC) 10 mg tablet Take 1 tablet (10 mg total) by mouth 1 (one) time each day. 11/11/2024 Active traMADoL (ULTRAM) 50 mg tablet Take 1 tablet (50 mg total) by mouth 3 (three) times a day if needed. 01/16/2025 Active minoxidiL (LONITEN) 2.5 mg tablet Take 1 tablet (2.5 mg total) by mouth daily. 12/21/2023 Active lidocaine (LIDODERM) 5 % patch 1 patch 1 (one) time each day. 06/09/2024 Active hydrOXYzine HCL (ATARAX) 25 mg tablet 1 tablet (25 mg total) 1 (one) time. Active fluticasone propionate (FLONASE) 50 mcg/actuation nasal spray SHAKE BEFORE FIRST USE PRIME AFTER USE CLEAN TIP 1 SPRAY INTO EACH NOSTRIL TWICE A DAY 01/16/2025 Active clonazePAM (KlonoPIN) 1 mg tablet Take 1 tablet (1 mg total) by mouth 1 (one) time each day. Active cholecalciferol (VITAMIN D-3) 50 mcg (2,000 unit) tablet Take 1 tablet (2,000 Units total) by mouth 1 (one) time each day. 04/04/2024 Active Ventolin HFA 90 mcg/actuation inhaler INHALE 2 PUFFS EVERY 4 HOURS NEEDED FOR FOR DYSPNEA Active losartan (COZAAR) 100 mg tablet Take 1 tablet (100 mg total) by mouth 1 (one) time each day. Active fluticasone furoate-vilante roL (Breo Ellipta) 100-25 mcg/dose inhaler Inhale by mouth 1 (one) time each day. Active zolpidem (AMBIEN) 5 mg tablet Take 1 tablet (5 mg total) by mouth at bedtime as needed for sleep. 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 Rodas is a 54-year-old female who had a robotic thymectomy via subxiphoid approach on February 11, 2025. Postoperative pathology shows no evidence of malignancy and instead shows 2 benign thymic cysts. The patient appears to be healing well from surgery. She has no signs or symptoms of active infection or significant postoperative complication. She does have some vague general discomfort and tingling of her bilateral lower extremities. I have ordered a venous duplex to rule out DVT, although I have a low suspicion of this. Her complaints of right hand numbness and pain is likely secondary to access for the arterial line. She has no concerning visible exam findings in this area. Pathology was discussed with the patient and her family at length. She does not require any ongoing imaging surveillance for biopsy-proven benign thymic cyst. The patient does have a significant smoking history with just quitting recently before her surgery. Her smoking history was confirmed and she is a candidate for ongoing lung cancer screening. I will refer the patient to her lung cancer screening program here at [facility] with her LDCT due December 2025. Patient may follow-up with us here in thoracic surgery on an as-needed basis going forward. Resolved Problems Problem Noted Date Diagnosed Date Resolved Date Mediastinal mass 01/26/2025 02/26/2025 Mediastinal lymphadenopathy 01/26/2025 02/26/2025 Encounters Date Type Department Care Team Description 03/25/2025 Telephone Pulmonology - [place] [address] [phone] Kylie Simons MA 03/24/2025 5:49 PM EDT - 03/24/2025 11:59 PM EDT Hospital Encounter [facility] Xray [address] [place] [address] Bilateral pleural effusion Discharge Disposition: Home or Self Care 03/24/2025 4:00 PM EDT Office Visit Pulmonology - [place] 299 [facility] [address] [place] [phone] Rosy Rhodes MD Bilateral pleural effusion (Primary Dx); Thymic cyst (CMS/HCC V24) 03/02/2025 2:45 PM EDT - 03/02/2025 11:59 PM EDT Hospital Encounter [facility] Ultrasound [address] [place] [address] Pain in both lower extremities Discharge Disposition: Home or Self Care 02/26/2025 10:15 AM EDT Office Visit Thoracic Surgery - [place] [address] [phone] Silvia Romeo PA Thymic cyst (CMS/HCC V24) (Primary Dx); Pain in both lower extremities; Tobacco abuse 02/26/2025 10:08 AM EDT - 02/26/2025 11:59 PM EDT Hospital Encounter [facility] Xray [address] [place] [address] Mediastinal mass Discharge Disposition: Home or Self Care 02/26/2025 Telephone Thoracic Surgery - [place] [address] [phone] Teodora Walker MA 02/13/2025 Telephone Thoracic Surgery - [place] [address] [address] Marlena Morris RN 02/11/2025 8:30 AM EDT - 02/11/2025 12:30 PM EDT Surgery [facility] Main OR [address] [place] [address] Bessy Kern MD DaVinci thymectomy 02/11/2025 8:29 AM EDT Anesthesia Event [facility] Main OR [address] [place] [address] Amrita Soto MD Elliott, Barbara J, BOTTLING ROOM WORKER 02/11/2025 7:18 AM EDT - 02/12/2025 12:23 PM EDT Hospital Encounter [facility] Intermediate Care Unit B [address] [place] [address] Bessy Kern MD Bell, Alistair A, MD Mediastinal mass; Mediastinal lymphadenopathy Discharge Disposition: Home-Health Care Sv 02/03/2025 Telephone Thoracic Surgery - [address] [phone] Marlena Morris RN 01/27/2025 Telephone Thoracic Surgery [address] [phone] Angelika Chang MA Procedure (Preop, Surgery, PostOp) 01/26/2025 1:45 PM EDT Consult Thoracic Surgery - [address] [phone] Bessy Kern MD Mediastinal mass (Primary Dx); Mediastinal lymphadenopathy from Last 3 Months Surgical History Surgery Date Site/Laterality Comments TUBAL LIGATION PROCEDURE: HISTORICAL TUBAL LIGATION CHOLECYSTECTOMY PROCEDURE: HISTORICAL CHOLECYSTECTOMY KNEE SURGERY Right PROCEDURE: HISTORICAL KNEE SURGERY CARPAL TUNNEL RELEASE Bilateral PROCEDURE: HISTORICAL CARPAL TUNNEL REL UPPER GASTROINTESTINAL ENDOSCOPY COLONOSCOPY THYMECTOMY 02/11/2025 N/A Medical History Medical History Date Comments Gallstone pancreatitis DX:Gallst one pancreatitis Palpitation DX:Palpitation Fibromyalgia DX:Fibromyalgia Depression DX:Depression Glaucoma DX:Glaucoma Essential (primary) hypertension DX:Essential (primary) hypertension Asthma Anxiety Arthritis Joint pain 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 Family History Medical History Relation Name Comments Colon cancer Father Other: kidney disease Mother Relation Name Status Comments Father Mother Social History Tobacco Use Types Packs/Day Years [...] on file Sexual Orientation Not on file Obstetrics History Last Filed Vital Signs Vital Sign Reading Time Taken Comments Blood Pressure 112/61 02/26/2025 10:06 AM EDT Pulse 88 03/24/2025 5:51 PM EDT Temperature 36.7 C (98.1 F) 03/24/2025 5:51 PM EDT Respiratory Rate 14 02/26/2025 10:06 AM EDT Oxygen Saturation 98% 03/24/2025 5:51 PM EDT Inhaled Oxygen Concentration - - Weight 99.3 kg (219 lb) 02/26/2025 10:06 AM EDT Height 160 cm (5' 2.99 ) 02/26/2025 10:06 AM EDT Body Mass Index 38.81 02/26/2025 10:06 AM EDT Plan of Treatment Upcoming Encounters Date Type Department Care Team (Late st Contact Info) Description 05/01/2025 3:00 PM EDT Office Visit Pulmonology - [address] [phone] Rosy Rhodes MD [address] [place] [phone] Health Maintenance Due Date Last Done Comments Breast Cancer Screening 1970 Hepatitis B Vaccines (1 of 3 - 19+ 3-dose series) 1989 Pneumococcal Vaccine: 50+ Years (2 of 2 - PCV) 2020 12/28/2011 Zoster Vaccines (1 of 2) 2020 COVID-19 Vaccine (3 - 2023- season) 2024 06/20/2022, 05/17/2021 Colorectal Cancer Screening: Colonoscopy 06/18/2024 Hepatitis C Screening 06/18/2024 Lung Cancer Screening (Low Dose CT) 06/18/2024 Social Influencers of Health Screening 06/18/2024 Depression Screening 09/10/2024 Influenza Vaccine (#1) 2025 2, 09/08/2021, 06/09/2020, Additional history exists Cholesterol Screening (Lipid Panel) 06/17/2025 06/17/2020 Hypertension/CHF/CAD Annual BMP Blood Test 03/17/2026 03/17/2025, 02/12/2025, 02/03/2025 Cervical Cancer Screening: Pap Smear 08/23/2026 08/23/2023 DTaP,Tdap,and Td Vaccines (5 - Td or Tdap) 08/01/2032 08/01/2022, 11/16/2016, 11/27/2000, Additional history exists HIV Screening Completed 11/05/2024 HIB Vaccines Aged Out No longer eligi ble based on patient's age to complete this topic HPV Vaccines Aged Out No longer eligi ble based on patient's age to complete this topic Hepatitis A Vaccines Aged Out No long er eligible based on patient's age to complete this topic IPV Vaccines Aged Out No longer eligi ble based on patient's age to complete this topic MMR Vaccines Aged Out No longer eligi ble based on patient's age to complete this topic Meningococcal ACWY Vaccine Aged Out N o longer eligible based on patient's age to complete this topic Meningococcal B Vaccine Aged Out No l onger eligible based on patient's age to complete this topic RSV Immunization Patients Under 20 months Aged Out No longer eligible based on patient's age to complete this topic Varicella Vaccines Aged Out No longer eligible based on patient's age to complete this topic Procedures Procedure Name Priority Date/Time Associated Diagnosis Comments IL THORACENTESIS PLEURAL SPACE NEEDLE/CATH ASPIRATION W IMAGING GUIDANCE Routine 03/24/2025 6:21 PM EDT Bilateral pleural effusion XR CHEST 2 VIEWS Routine 03/24/2025 5:53 PM EDT Bilateral pleural effusion NON-GYNECOLOGIC CYTOLOGY Routine 03/24/2025 5:33 PM EDT Bilateral pleural effusion TRIGLYCERIDES, BODY FLUIDS Routine 03/24/2025 5:33 PM EDT Bilateral pleural effusion PATHOLOGIST REVIEW BODY FLUID Routine 03/24/2025 5:33 PM EDT Bilateral pleural effusion DIFFERENTIAL BODY FLUID Routine 03/24/2025 5:33 PM EDT Bilateral pleural effusion CELL COUNT WITH REFLEX DIFFERENTIAL, BODY FLUID Routine 03/24/2025 5:33 PM EDT Bilateral pleural effusion GLUCOSE, BODY FLUID Routine 03/24/2025 5 :33 PM EDT Bilateral pleural effusion PROTEIN, BODY FLUID Routine 03/24/2025 5 :33 PM EDT Bilateral pleural effusion LACTATE DEHYDROGENASE, BODY FLUID Routine 03/24/2025 5:33 PM EDT Bilateral pleural effusion CULTURE BODY FLUID WITH GRAM STAIN Routine 03/24/2025 5:33 PM EDT Bilateral pleural effusion EXTERNAL CT REPORT 03/17/2025 VAS US DUPLEX LOWER EXT VENOUS BILAT Routine 03/02/2025 3:07 PM EDT Pain in both lower extremities XR CHEST 2 VIEWS Routine 02/26/2025 10:1 8 AM EDT Mediastinal mass MAGNESIUM Routine 02/12/2025 6:18 AM EDT PHOSPHORUS Routine 02/12/2025 6:18 AM EDT COMPLETE BLOOD COUNT Timed 02/12/2025 6:18 AM EDT BASIC METABOLIC PANEL Routine 02/12/2025 6:18 AM EDT XR CHEST 1 VIEW Routine 02/12/2025 5:45 AM EDT PEP THERAPY Routine 02/11/2025 6:31 PM EDT PEP THERAPY Routine 02/11/2025 6:31 PM EDT PEP THERAPY Routine 02/11/2025 6:31 PM EDT PEP THERAPY Routine 02/11/2025 5:47 PM EDT XR CHEST 1 VIEW STAT 02/11/2025 1:17 PM EDT OXYGEN THERAPY, ADULT Routine 02/11/2025 12:37 PM EDT TISSUE EXAM Routine 02/11/2025 9:42 AM EDT Mediastinal mass Mediastinal lymphadenopathy TH AN ARTERIAL LINE (CHARGE) Routine 02/11/2025 9:34 AM EDT ANESTHESIA PERIPHERAL IV PLACEMENT Routine 02/11/2025 9:33 AM EDT TH AN ENDOTRACHEAL(NO CHARGE) Routine 02/11/2025 9:32 AM EDT PREPARE RBC Routine 02/11/2025 8:51 AM EDT THYMECTOMY ROBOT 02/11/2025 8:29 AM EDT Mediastinal mass Mediastinal lymphadenopathy PROCEDURAL ECG Routine 02/03/2025 2:13 PM EDT Mediastinal mass Mediastinal lymphadenopathy CBC WITH AUTO DIFFERENTIAL Routine 02/03/2025 2:03 PM EDT Mediastinal mass Mediastinal lymphadenopathy BASIC METABOLIC PANEL Routine 02/03/2025 2:03 PM EDT Mediastinal mass Mediastinal lymphadenopathy CBC AND DIFFERENTIAL Routine 02/03/2025 2:03 PM EDT Mediastinal mass Mediastinal lymphadenopathy PROTHROMBIN TIME WITH INR Routine 02/03/2025 2:03 PM EDT Mediastinal mass Mediastinal lymphadenopathy ACTIVATED PARTIAL THROMBOPLASTIN TIME Routine 02/03/2025 2:03 PM EDT Mediastinal mass Mediastinal lymphadenopathy TYPE AND SCREEN Routine 02/03/2025 2:03 PM EDT Mediastinal mass Mediastinal lymphadenopathy from Last 3 Months Results * IL THORACENTESIS PLEURAL SPACE NEEDLE/CATH ASPIRATION W IMAGING GUIDANCE (03/24/2025 6:21 PM EDT) Rosy Nuno MD - 03/24/2025 6:21 PM EDT Rosy Rhodes MD 03/24/2025 6:22 PM Thoracentesis Date/Time: 03/24/2025 6:21 PM Performed by: Rosy Rhodes MD Authorized by: Rosy Rhodes MD Consent: Consent obtained: Verbal Consent given by: Patient Risks, benefits, and alternatives were discussed: yes Risks discussed: Bleeding, infection and pneumothorax Alternatives discussed: No treatment [place] protocol: Procedure explained and questions answered to patient or proxy's satisfaction: yes Relevant documents present and verified: yes Test results available: yes Imaging studies available: yes Required blood products, implants, devices, and special equipment available: yes Site/side marked: yes Immediately prior to procedure, a time out was called: yes Patient identity confirmed: Verbally with patient Sedation: Sedation type: None Anesthesia: Anesthesia method: Local infiltration Local anesthetic: Lidocaine 1% WITH epi Procedure details: Preparation: Patient was prepped and draped in usual sterile fashion Location: R midscapular line Intercostal space: 8th Puncture method: [id number] catheter Ultrasound guidance: yes Indwelling catheter placed: no Needle gauge: 22 Catheter size: 8 Fr Number of attempts: 1 Fluid characteristics: serous. Post-procedure details: Chest x-ray performed: yes Procedure completion: Tolerated well, no immediate complications Comments: 600 mL drained serous fluid, stopped for no further drainage. Patient had no pain with drainage. us Rosy Rhodes MD IN CLINIC/BEDSIDE ORDERABL ES Final Result * XR Chest 2 Views (03/24/2025 5:53 PM EDT) Only the most recent of2 resultswithin the time period is included. Anatomical Region Laterality Modality Body Radiographic Hilda ging 03/25/2025 7:32 AM EDT Impressions 03/25/2025 7:34 AM EDT No acute pulmonary disease. Bibasilar discoid atelectasis and the small right pleural effusion have resolved since the prior study performed 02/26/2025. Code 52737 -------- FINAL REPORT -------- Dictated By: Adán Cerna Dictated Date: 03/25/2025 07:32 ET Assigned Physician: Adán Cerna Reviewed and Electronically Signed By: Adán Cerna Signed Date: 03/25/2025 07:34 ET Workstation ID: [id number] Transcribed By: Self Edit Transcribed Date: 03/25/2025 07:32 ET Narrative 03/25/2025 7:34 AM EDT HISTORY: The patient is a 54-year-old female who underwent thymectomy on 02/11/2025, presenting for follow-up. FINDINGS: PA and lateral radiographs of the chest demonstrate degenerative changes of the thoracic spine as also seen on the prior study performed 02/26/2025. The cardiac and mediastinal contours are within normal limits. Bibasilar discoid atelectasis has resolved since the prior study. The small right pleural effusion seen on the prior study is no longer demonstrated. The lungs are now clear and the costophrenic angles are sharp. Procedure Note Adán Cerna MD - 03/25/2025 HISTORY: The patient is a 54-year-old female who underwent thymectomy on02/11/2025, presenting for follow-up. FINDINGS: PA and lateral radiographs of the chest demonstrate degenerativechanges of the thoracic spine as also seen on the prior study performed02/26/2025. The cardiac and mediastinal contours are within normal limits.Bibasilar discoid atelectasis has resolved since the prior study. Thesmall right pleural effusion seen on the prior study is no longerdemonstrated. The lungs are now clear and the costophrenic angles aresharp. IMPRESSION: No acute pulmonary disease. Bibasilar discoid atelectasis and the smallright pleural effusion have resolved since the prior study performed02/26/2025. Code 34280 -------- FINAL REPORT -------- Dictated By: Adán Cerna Dictated Date: 03/25/2025 07:32 ET Assigned Physician: Adán Cerna Reviewed and Electronically Signed By: Adán Cerna Signed Date: 03/25/2025 07:34 ET Workstation ID: [id number] Transcribed By: Self Edit Transcribed Date: 03/25/2025 07:32 ET us Rosy Rhodes MD IMG XR PROCEDURES Final Re sult * Cell count with reflex differential, body fluid (03/24/2025 5:33 PM EDT) Body Fluid Total Nucleated Cells 5,692 /mm3 LAB HEMETOLOGY METHOD 03/24/2025 8:21 PM EDT [facility] Body Fluid RBC 3,000 /mm3 LAB HEMETOLOGY METHOD 03/24/2025 8:21 PM EDT [facility] Body Fluid Color Yellow 03/24/2025 8:21 PM EDT [facility] Body Fluid Clarity Cloudy 03/24/2025 8:21 PM EDT [facility] Body Fluid Source Pleural 03/24/2025 8:21 PM EDT [facility] Pleural Fluid Structure of right pleural cavity / Unknown Non-blood Collection / Unknown 03/24/2025 5:33 PM EDT 03/24/2025 5:45 PM EDT Narrative [facility] - 03/24/2025 8:21 PM EDT No reference ranges have been established for body fluids. Clinical correlation recommended. Rosy Rhodes MD LAB BODY FLUIDS AND STOOLS ORDERABLES Edited Result - Final [facility] [address] [place] [address], [place] [phone] * Culture body fluid with gram stain (03/24/2025 5:33 PM EDT) Fluid Culture No growth at 2 days LAB MICROBIOLOGY METHOD 03/30/2025 11:53 AM EDT [facility] Gram Stain Result No polymorphonuclear leukocytes, No epithelial cells, and No organisms noted 03/30/2025 11:53 AM EDT [facility] Pleural Fluid Structure of right pleural cavity / Unknown Non-blood Collection / Unknown 03/24/2025 5:33 PM EDT 03/24/2025 5:45 PM EDT Rosy Rhodes MD LAB MICROBIOLOGY - GENERAL ORDERABLES Final Result Performing Organization Address [facility]/ZIP Co de Phone Number [facility] [address] [place] [address], [place] [phone] * Differential body fluid (03/24/2025 5:33 PM EDT) Fluid Neutrophils % 5 % 03/24/2025 8:10 PM EDT [facility] Fluid Lymphocytes % 49 % 03/24/2025 8:10 PM EDT [facility] Fluid Monocytes/Macrop hages 11 % 03/24/2025 8:10 PM EDT [facility] Fluid Eosinophils % 35 % 03/24/2025 8:10 PM EDT [facility] Fluid Basophils % 0 % 03/24/2025 8:10 PM EDT [facility] Fluid Other Cells % 0 % 03/24/2025 8:10 PM EDT [facility] Pleural Fluid Structure of right pleural cavity / Unknown Non-blood Collection / Unknown 03/24/2025 5:33 PM EDT 03/24/2025 5:45 PM EDT Narrative [facility] - 03/24/2025 8:10 PM EDT No reference ranges have been established for body fluids. Clinical correlation recommended. Rosy Rhodes MD LAB BODY FLUIDS AND STOOLS ORDERABLES Final Result [facility] [address] [place] [address], [place] [phone] * Pathology review, body fluid (03/24/2025 5:33 PM EDT) Pathologist review Body Fluid Cytocentrifuge prep: -Negative for malignancy [facility] Fl[facility] Structure of right pleural cavity / Unknown Non-blood Collection / Unknown 03/24/2025 5:33 PM EDT 03/24/2025 5:45 PM EDT us Rosy Rhodes MD LAB BODY FLUIDS AND STOOLS ORDERABLES Final Result Performing Organization Address [facility] de Phone Number [facility] [address] [place] [address], [place] [phone] * Triglycerides, body fluid (03/24/2025 5:33 PM EDT) Triglycerides , Fluid 36 See Comment mg/dL LAB CHEMISTRY METHOD 03/25/2025 12:15 PM EDT [facility] Pleural Fluid Structure of right pleural cavity / Unknown Non-blood Collection / Unknown 03/24/2025 5:33 PM EDT 03/24/2025 5:45 PM EDT [facility] - 03/25/2025 12:15 PM EDT No reference ranges have been established for body fluids. Clinical correlation recommended. us Rosy Rhodes MD LAB BODY FLUIDS AND STOOLS ORDERABLES Final Result Performing Organization Address [facility] de Phone Number [facility] [address] [place] [address], [place] [phone] * Protein, body fluid (03/24/2025 5:33 PM EDT) Protein, Fluid 5.4 See Comment g/dL LAB CHEMISTRY METHOD 03/24/2025 6:52 PM EDT [facility] Pleural Fluid Structure of right pleural cavity / Unknown Non-blood Collection / Unknown 03/24/2025 5:33 PM EDT 03/24/2025 5:45 PM EDT [facility] - 03/24/2025 6:52 PM EDT No reference ranges have been established for body fluids. Clinical correlation recommended. us Rosy Rhodes MD LAB BODY FLUIDS AND STOOLS ORDERABLES Final Result Performing Organization Address [facility] Co de Phone Number [facility] [address] [place] [address], [place] [phone] * Lactate dehydrogenase, body fluid (03/24/2025 5:33 PM EDT) LD, Fluid 799 See Comment unit/L LAB CHEMISTRY METHOD 03/24/2025 6:52 PM EDT [facility] Pleural Fluid Structure of right pleural cavity / Unknown Non-blood Collection / Unknown 03/24/2025 5:33 PM EDT 03/24/2025 5:45 PM EDT Narrative [facility] - 03/24/2025 6:52 PM EDT No reference ranges have been established for body fluids. Clinical correlation recommended. us Rosy Rhodes MD LAB BODY FLUIDS AND STOOLS ORDERABLES Final Result Performing Organization Address [facility] Co de Phone Number [facility] [address] [place] [address], [place] [phone] * Glucose, body fluid (03/24/2025 5:33 PM EDT) Glucose, Fluid 125 See Comment mg/dL LAB CHEMISTRY METHOD 03/24/2025 7:28 PM EDT [facility] Pleural Fluid Structure of right pleural cavity / Unknown Non-blood Collection / Unknown 03/24/2025 5:33 PM EDT 03/24/2025 5:45 PM EDT [facility] - 03/24/2025 7:28 PM EDT No reference ranges have been established for body fluids. Clinical correlation recommended. us Rosy Rhodes MD LAB BODY FLUIDS AND STOOLS ORDERABLES Final Result Performing Organization Address City/[facility]/ZIP Co de Phone Number [facility] [address] [place] [address], * Non-gynecologic cytology (03/24/2025 5:33 PM EDT) Final Diagnosis A. Pleural Fluid, Right, Thoracentesis, (ThinPrep, cell block): Negative for malignancy 03/26/2025 8:41 AM EDT [facility] Specimen A Adequacy Satisfactory for evaluation 03/26/2025 8:41 AM EDT [facility] Gross Description A. Pleural Cavity, Right, Pleural fluid: Received 600 ml of jimenez fluid; 1 ThinPrep, 1 Cell block Cell block in formalin @10:30, total formalin fixation time 10.5 hours. 03/26/2025 8:41 AM EDT [facility] Disclaimer Unless otherwise specified, all tissue is 10% NB formalin fixed and paraffin embedded. Technical cytopathology services provided by [facility], at [address] [place] [id number] (CLIA # [id number]/Jose Paula MD, [employer].) 03/26/2025 8:41 AM EDT [facility] Pleural Fluid Structure of right pleural cavity / Unknown Non-blood Collection / Unknown 03/24/2025 5:33 PM EDT 03/25/2025 9:54 AM EDT us Rosy Rhodes MD LAB CYTOLOGY ORDERABLES Fi nal Result Performing Organization Address City/[facility]/ZIP Co de Phone Number [facility] [address] [place] [address], * External CT Report (03/17/2025) Anatomical Region Laterality Modality Computed Tomogra phy us Provider [facility] IMG CT PROCEDURES Final Result * Vascular US duplex lower extremity venous bilateral (03/02/2025 3:07 PM EDT) Anatomical Region Laterality Modality Vascular, Abdomen Ultrasound 03/02/2025 3:17 PM EDT Impressions 03/02/2025 3:18 PM EDT NO RIGHT OR LEFT LOWER EXTREMITY DEEP VENOUS THROMBOSIS. -------- FINAL REPORT -------- Dictated By: Garrett Maria Dictated Date: 03/02/2025 15:17 ET Assigned Physician: Garrett Maria Reviewed and Electronically Signed By: Garrett Maria Signed Date: 03/02/2025 15:18 ET Workstation ID: [id number] Transcribed By: Self Edit Transcribed Date: 03/02/2025 15:17 ET Narrative 03/02/2025 3:18 PM EDT PROCEDURE: VAS US DUPLEX LOWER EXT VENOUS BILAT INDICATION: edema pain in extremities TECHNIQUE: 2-D and color Doppler imaging of the lower extremity venous vasculature with compression and augmentation maneuvers. COMPARISON: No priors available. FINDINGS: RIGHT: There is normal flow, compression, and augmentation from the common femoral through the popliteal vein. Visualized calf veins unremarkable. LEFT: There is normal flow, compression, and augmentation from the common femoral through the popliteal vein. Visualized calf veins unremarkable. Procedure Note Garrett Maria MD - 03/02/2025 PROCEDURE: VAS US DUPLEX LOWER EXT VENOUS BILAT INDICATION: edema pain in extremities TECHNIQUE: 2-D and color Doppler imaging of the lower extremity venousvasculature with compression and augmentation maneuvers. COMPARISON: No priors available. FINDINGS: RIGHT: There is normal flow, compression, and augmentation from the commonfemoral through the popliteal vein. Visualized calf veins unremarkable. LEFT: There is normal flow, compression, and augmentation from the commonfemoral through the popliteal vein. Visualized calf veins unremarkable. IMPRESSION: NO RIGHT OR LEFT LOWER EXTREMITY DEEP VENOUS THROMBOSIS. -------- FINAL REPORT -------- Dictated By: Garrett Maria Dictated Date: 03/02/2025 15:17 ET Assigned Physician: Garrett Maria Reviewed and Electronically Signed By: Garrett Maria Signed Date: 03/02/2025 15:18 ET Workstation ID: [id number] Transcribed By: Self Edit Transcribed Date: 03/02/2025 15:17 ET Silvia RED CV VASCULAR PROCEDURES Final Result * (ABNORMAL) CBC - Every 3 Days (02/12/2025 6:18 AM EDT) WBC 16.2(H) 4.8 - 10.8 K/mcL LAB HEMETOLOGY METHOD 02/12/2025 7:11 AM EDT [facility] RBC 3.80 3.80 - 4.80 M/mcL [facility] Hemoglobin 11.4(L) 11.5 - 16.0 g/dL LAB HEMETOLOGY METHOD 02/12/2025 7:11 AM [facility] Hematocrit 34.5(L) 35.0 - 47.0 % LAB HEMETOLOGY METHOD 02/12/2025 7:11 AM [facility] MCV 90.3 79.0 - 98.0 FL LAB HEMETOLOGY METHOD 02/12/2025 7:11 AM [facility] MCH 29.8 27.0 - 32.0 pcg LAB HEMETOLOGY METHOD 02/12/2025 7:11 AM [facility] MCHC 33.0 32.0 - 37.0 g/dL LAB HEMETOLOGY METHOD [facility] RDW 13.1 11.0 - 15.0 % LAB HEMETOLOGY METHOD 02/12/2025 7:11 AM [facility] Platelets 292 130 - 400 K/mcL LAB HEMETOLOGY METHOD 02/12/2025 7:11 AM [facility] MPV 9.9 7.0 - 11.0 FL LAB HEMETOLOGY METHOD 02/12/2025 7:11 AM EDT [facility] NRBC 0.0 <1.0 % LAB HEMETOLOGY METHOD 02/12/2025 7:11 AM EDT [facility] NRBC Absolute 0.00 <0.10 K/mcL LAB HEMETOLOGY METHOD 02/12/2025 7:11 AM EDT [facility] Blood Venous blood specimen / Unknown Venipuncture / Unknown 02/12/2025 6:18 AM EDT 02/12/2025 6:42 AM EDT Silvia RED LAB BLOOD ORDERABLES Final Re sult Performing Organization Address City/[facility]/ZIP Co de Phone Number [facility] [address] [place] [address], [place] [phone] * Phosphorus (02/12/2025 6:18 AM EDT) Phosphorus 3.2 2.5 - 4.5 mg/dL LAB CHEMISTRY METHOD 02/12/2025 7:23 AM EDT [facility] Blood Venous blood specimen / Unknown Venipuncture / Unknown 02/12/2025 6:18 AM EDT 02/12/2025 6:42 AM EDT Silvia RED LAB BLOOD ORDERABLES Final Re sult [facility] [address] [place] [address], [place] [phone] * Magnesium (02/12/2025 6:18 AM EDT) Magnesium 1.9 1.9 - 2.6 mg/dL LAB CHEMISTRY METHOD 02/12/2025 7:23 AM EDT [facility] Blood Venous blood specimen / Unknown Venipuncture / Unknown 02/12/2025 6:18 AM EDT 02/12/2025 6:42 AM EDT us Silvia RED LAB BLOOD ORDERABLES Final Re sult [facility] [address] [place] [address], [place] [phone] * (ABNORMAL) Basic metabolic panel (02/12/2025 6:18 AM EDT) Only the most recent of2 resultswithin the time period is included. Sodium 138 133 - 145 mmol/L LAB CHEMISTRY METHOD 02/12/2025 7:23 AM [facility] Potassium 4.3 3.5 - 5.5 mmol/L LAB CHEMISTRY METHOD 02/12/2025 7:23 AM [facility] Chloride 107 96 - 110 mmol/L LAB CHEMISTRY METHOD 02/12/2025 7:23 AM [facility] CO2 27 21 - 32 mmol/L LAB CHEMISTRY METHOD 02/12/2025 7:23 AM [facility] Anion Gap 4 3 - 11 LAB CHEMISTRY METHOD 02/12/2025 7:23 AM [facility] Glucose 148(H) 70 - 100 mg/dL LAB CHEMISTRY METHOD 02/12/2025 7:23 AM [facility] BUN 15 5 - 25 mg/dL LAB CHEMISTRY METHOD 02/12/2025 7:23 AM [facility] Creatinine 0.98 0.50 - 1.10 mg/dL LAB CHEMISTRY METHOD 02/12/2025 7:23 AM [facility] eGFR 69 >=60 mL/min/1. 73m2 LAB CHEMISTRY METHOD 02/12/2025 7:23 AM [facility] Comment:Calculation based on the Chronic Kidney Disease Epidemiology Collaboration (CKD-EPI) equation refit without adjustment for race. BUN/Creatinine Ratio 15.3 LAB CHEMISTRY METHOD 02/12/2025 7:23 AM EDT [facility] Calcium 8.9 8.5 - 10.5 mg/dL LAB CHEMISTRY METHOD 02/12/2025 7:23 AM EDT [facility] Blood Venous blood specimen / Unknown Venipuncture / Unknown 02/12/2025 6:18 AM EDT 02/12/2025 6:42 AM EDT us Silvia RED LAB BLOOD ORDERABLES Final Re sult [facility] [address] [place] [address], [place] [phone] * XR Chest 1 View (02/12/2025 5:45 AM EDT) Only the most recent of2 resultswithin the time period is included. Anatomical Region Laterality Modality Body Radiographic Hilda ging 02/12/2025 8:28 AM EDT Impressions 02/12/2025 8:29 AM EDT Increased patchy opacity at the bases suggestive of atelectasis. -------- FINAL REPORT -------- Dictated By: Soren Zee Dictated Date: 02/12/2025 08:28 ET Assigned Physician: Soren Zee Reviewed and Electronically Signed By: Soren Zee Signed Date: 02/12/2025 08:29 ET Workstation ID: [id number] Transcribed By: Self Edit Transcribed Date: 02/12/2025 08:28 ET Narrative 02/12/2025 8:29 AM EDT PROCEDURE: AP chest radiograph. HISTORY: POD#1 s/p thymectomy. COMPARISON: 02/11/2025. FINDINGS: Unchanged mediastinal drain. Patchy right greater than left basilar opacities, more confluent than on the previous study, nonspecific but probably atelectasis. No pneumothorax. Degenerative changes of the spine. Procedure Note Soren Zee MD - 02/12/2025 PROCEDURE: AP chest radiograph. HISTORY: POD#1 s/p thymectomy. COMPARISON: 02/11/2025. FINDINGS: Unchanged mediastinal drain. Patchy right greater than left basilaropacities, more confluent than on the previous study, nonspecific butprobably atelectasis. No pneumothorax. Degenerative changes of thespine. IMPRESSION: Increased patchy opacity at the bases suggestive of atelectasis. -------- FINAL REPORT -------- Dictated By: Soren Zee Dictated Date: 02/12/2025 08:28 ET Assigned Physician: Soren Zee Reviewed and Electronically Signed By: Soren Zee Signed Date: 02/12/2025 08:29 ET Workstation ID: [id number] Transcribed By: Self Edit Transcribed Date: 02/12/2025 08:28 ET Silvia RED IMG XR PROCEDURES Final Resul t * Tissue exam (02/11/2025 9:42 AM EDT) Final Diagnosis A. Sternum, Xiphoid: -BENIGN CARTILAGE, CONSISTENT WITH STERNUM/XIPHOID B. Thymus-thymectom y: -SIMPLE (BENIGN) THYMIC CYSTS (2) 02/13/2025 12:57 PM EDT [facility] Gross Description A. Sternum, Xiphoid: Labeled sternum, xiphoid . Received in formalin is a 2.2 x 1.6 x 0.6 cm irregular cauterized pink-white cartilaginous fragment. The cut surfaces are lloyd-white and rubbery. The specimen is quadrisected and entirely submitted in one cassette, four pieces. B. Thymus, Short stitch vieyra right superior horn, long stitch vieyra anterior surface - Question Lymphoma: Labeled thymus . Received fresh and transferred to formalin is a 49 g, 8.5 superior to inferior x 7.8 right to left x 1.8 anterior to posterior cm oriented thymus with a short suture designating right superior horn, and a long suture marking anterior. The anterior aspect is partially surfaced by smooth membranous tissue. The cut surfaces display two intact smooth-walled cysts containing a nguyen-white cloudy, watery fluid. The larger cyst is on the left side and measures 3.6 x 2.1 x 1.3 cm. The larger cyst abuts the anterior and posterior aspect and is located 0.4 cm from the left lateral margin. The smaller cyst is on the right side and measures 1.8 x 1.1 x 0.8 cm. The smaller cyst abuts the posterior aspect and is 1 cm from the anterior aspect and 1.9 cm from the right lateral margin. The cysts are located 2.6 cm apart. The uninvolved cut surfaces are yellow-lloyd and fatty with no additional mass lesions appreciated. Gross photographs are taken. Inking code: Blue-inferior Green-anterior Yellow-right Black-posterior Red-superior [place]-left Community Services Officer sections are submitted as follows: 1-4, complete cross-section from right to left to include both cysts (smaller cyst in cassette two, larger cyst in cassette four), one piece each 5-9, remainder of larger cyst (cassettes five and seven two pieces each; cassette six, eight, and nine, one piece each) 10 and 11, remainder of smaller cyst, two pieces each 12-15, uninvolved, one piece each [place] 02/13/2025 12:57 PM EDT [facility] Disclaimer Unless otherwise specified, all tissue is 10% NB formalin fixed and paraffin embedded. 02/13/2025 12:57 PM EDT [facility] Bone Bone structure of sternum / Unknown 02/11/2025 9:42 AM EDT 02/11/2025 1:05 PM EDT Tissue specimen (specimen) Thymus gland structure / Unknown 02/11/2025 11:59 AM EDT 02/11/2025 12:20 PM EDT us Bessy Kern MD LAB PATHOLOGY ORDERABLES Final R esult [facility]) [facility] [address] [place] [address], * TH AN ARTERIAL LINE (CHARGE) (02/11/2025 9:34 AM EDT) Narrative Chuy Dickson CRNA - 02/11/2025 9:34 AM EDT Chuy Dickson CRNA 02/11/2025 9:35 AM Arterial Line Performed by: Chuy Dickson CRNA Authorized by: Peter Garces DO Consent: Verbal consent obtained. Written consent obtained. Risks and benefits: risks, benefits and alternatives were discussed Consent given by: patient Patient understanding: patient states understanding of the procedure being performed Patient consent: the patient's understanding of the procedure matches consent given Procedure consent: procedure consent matches procedure scheduled Relevant documents: relevant documents present and verified Test results: test results available and properly labeled Site marked: the operative site was marked Imaging studies: imaging studies available Required items: required blood products, implants, devices, and special equipment available Patient identity confirmed: verbally with patient, arm band, provided demographic data and hospital-assigned identification number Time out: Immediately prior to procedure a time out was called to verify the correct patient, procedure, equipment, client support manager and site/side marked as required. Preparation: Patient was prepped and draped in the usual sterile fashion. Indications: hemodynamic monitoring Location: left radial Sedation: Patient sedated: yes Sedatives: see MAR for details Analgesia: see MAR for details Vitals: Vital signs were monitored during sedation. Brett's test normal: yes Needle gauge: 20 Seldinger technique: Seldinger technique used Number of attempts: 4 Post-procedure: dressing applied Post-procedure CMS: normal Staffing Anesthesiologist: Peter Garces DO Peter Garces DO ANESTHESIA ORDERABLES Final Result * Peripheral IV (02/11/2025 9:33 AM EDT) Chuy Lopez CRNA - 02/11/2025 9:33 AM EDT Chuy Dickson CRNA 02/11/2025 9:34 AM Peripheral IV Inserted by: Chuy Dickson CRNA Placement Laterality: right Location: antecubital Site prep: alcohol Technique: anatomical landmarks Attempts: 3 Peter Garces DO ANESTHESIA ORDERABLES Final Result * TH AN ENDOTRACHEAL(NO CHARGE) (02/11/2025 9:32 AM EDT) Chuy Lopez CRNA - 02/11/2025 9:32 AM EDT Chuy Dickson CRNA 02/11/2025 9:33 AM General Information and Staff Patient location during procedure: OR Resident/BOTTLING ROOM WORKER: Chuy Dickson CRNA Performed: resident/BOTTLING ROOM WORKER/CAA Performed by: Chuy Dickson CRNA Authorized by: Peter Garces DO Intubation Additional Comments GRETTA placed UDV, position confirmed with F/O bronch, cuffs up, taped Airway not difficult Urgency: elective Final Airway Details Successful airway: ETT - double lumen left Cuffed: yes Successful intubation technique: direct laryngoscopy Facilitating devices/methods: intubating stylet Endotracheal tube insertion site: oral Blade: Jose Alberto Blade size: #3 ETT DL size (fr): 37 Cormack-Lehane Classification: grade I - full view of glottis Placement verified by: chest auscultation and capnometry Number of attempts at approach: 1Final airway type: endotracheal airway Indications and Patient Condition Indications for airway management: anesthesia Spontaneous Ventilation: absent Sedation level: Yes Preoxygenated: yes Soft Tissue Damage: No Dentition Unchanged: Yes Patient position: sniffing MILS maintained throughout Mask difficulty assessment: 2 - vent by mask + OA or adjuvant +/- NMBA us Peter Garces DO ANESTHESIA ORDERABLES Final Result * Prepare RBC: 2 Units (02/11/2025 8:51 AM EDT) Product Code [id number] 02/12/2025 6:52 AM EDT [facility] Unit Number [id number] 02/13/20 6:52 AM EDT [facility] Crossmatch Compatible 02/11/2025 9:07 AM EDT [facility] Dispense Status Released From Crossmatch 02/12/2025 6:52 AM [facility] Unit ABO Rh OPOS 02/12/2025 6:52 AM [facility] Unit Expiration Date Time [id number] 02/12/2025 6:52 AM [facility] Unit Blood Type 5100 02/12/2025 6:52 AM EDT [facility] Product Code [id number] 02/12/2025 6:52 AM EDT [facility] Unit Number [id number] 02/13/20 6:52 AM EDT [facility] Crossmatch Compatible 02/11/2025 9:09 AM EDT [facility] Dispense Status Released From Crossmatch 02/12/2025 6:52 AM EDT [facility] Unit ABO Rh OPOS 02/12/2025 6:52 AM EDT [facility] Unit Expiration Date Time [id number] 02/12/2025 6:52 AM EDT [facility] Unit Blood Type 5100 02/12/2025 6:52 AM EDT [facility] Blood Venous blood specimen / Unknown 02/11/2025 8:51 AM EDT 02/03/2025 2:31 PM EDT Silvia RED BLOOD BANK PRODUCT ORDERABLES Final Result [facility] [address] [place] [address], * ECG 12 lead - Procedural (No Charge) (02/03/2025 2:13 PM EDT) Ventricular Rate ECG 82 BPM GEMUSE Atrial Rate 82 BPM GEMUSE P-R Interval 132 ms GEMUSE QRS Duration 72 ms GEMUSE Q-T Interval 366 ms GEMUSE QTc 427 ms GEMUSE P Wave [place] 49 degrees GEMUSE R [place] 10 degrees GEMUSE T [place] -2 degrees GEMUSE ECG Interpretation Normal sinus rhythm Septal infarct , age undetermined Abnormal ECG No previous ECGs available Confirmed by Chai BAEZ JAMES ([id number]) on 02/03/2025 4:06:07 PM GEMUSE 02/03/2025 2:13 PM EDT 02/03/2025 4:06 PM EDT us Bessy Kern MD ECG ORDERABLES Final Result GEMUSE * CBC auto differential (02/03/2025 2:03 PM EDT) WBC 7.6 4.8 - 10.8 K/mcL LAB HEMETOLOGY METHOD 02/03/2025 2:42 PM EDT [facility] RBC 4.00 3.80 - 4.80 M/mcL LAB HEMETOLOGY METHOD 02/03/2025 2:42 PM EDT [facility] Hemoglobin 11.9 11.5 - 16.0 g/dL LAB HEMETOLOGY METHOD 02/03/2025 2:42 PM EDT [facility] Hematocrit 35.9 35.0 - 47.0 % LAB HEMETOLOGY METHOD 02/03/2025 2:42 PM EDT [facility] MCV 89.8 79.0 - 98.0 FL LAB HEMETOLOGY METHOD 02/03/2025 2:42 PM EDT [facility] MCH 29.8 27.0 - 32.0 pcg LAB HEMETOLOGY METHOD 02/03/2025 2:42 PM EDT [facility] MCHC 33.1 32.0 - 37.0 g/dL LAB HEMETOLOGY METHOD 02/03/2025 2:42 PM EDT [facility] RDW 12.6 11.0 - 15.0 % LAB HEMETOLOGY METHOD 02/03/2025 2:42 PM EDT [facility] Platelets 242 130 - 400 K/mcL LAB HEMETOLOGY METHOD 02/03/2025 2:42 PM EDT [facility] MPV 9.8 7.0 - 11.0 FL LAB HEMETOLOGY [facility] NRBC 0.0 <1.0 % [facility] HEMETOLOGY METHOD [facility] NRBC Absolute 0.00 <0.10 K/mcL LAB HEMETOLOGY METHOD 02/03/2025 2:42 PM [facility] Neutrophils Relative 54.4 % LAB HEMETOLOGY [facility] Lymphocytes Relative 37.8 % LAB HEMETOLOGY METHOD 02/03/2025 2:42 PM [facility] Monocytes Relative 5.3 % LAB HEMETOLOGY METHOD 02/03/2025 2:42 PM [facility] Eosinophils Relative 1.7 % LAB HEMETOLOGY METHOD 02/03/2025 2:42 PM [facility] Basophils Relative 0.5 % LAB HEMETOLOGY METHOD 02/03/2025 2:42 PM [facility] Immature Granulocytes Relative 0.3 % LAB HEMETOLOGY METHOD 02/03/2025 2:42 PM [facility] Neutrophils Absolute 4.12 1.50 - 7.00 K/mcL LAB HEMETOLOGY METHOD 02/03/2025 2:42 PM [facility] Lymphocytes Absolute 2.86 1.00 - 5.00 K/mcL LAB HEMETOLOGY METHOD 02/03/2025 2:42 PM EDT [facility] Monocytes Absolute 0.40 0.20 - 1.00 K/mcL LAB HEMETOLOGY METHOD 02/03/2025 2:42 PM [facility] Eosinophils Absolute 0.13 0.00 - 0.50 K/mcL LAB HEMETOLOGY METHOD 02/03/2025 2:42 PM [facility] Basophils Absolute 0.04 0.00 - 0.20 K/mcL LAB HEMETOLOGY METHOD 02/03/2025 2:42 PM EDT [facility] Immature Granulocytes Absolute 0.02 0.00 - 0.03 K/mcL LAB HEMETOLOGY METHOD 02/03/2025 2:42 PM EDT [facility] Blood Venous blood specimen / Unknown Venipuncture / Unknown 02/03/2025 2:03 PM EDT 02/03/2025 2:32 PM EDT us Bessy Kern MD LAB BLOOD ORDERABLES Final Resul t Performing Organization Address [facility]/ZIP Co de Phone Number [facility] [address] [place] [address], [place] [phone] * Activated partial thromboplastin time (02/03/2025 2:03 PM EDT) aPTT 33.5 24.1 - 39.3 sec LAB COAGULATION METHOD 02/03/2025 3:14 PM EDT [facility] Blood Venous blood specimen / Unknown Venipuncture / Unknown 02/03/2025 2:03 PM EDT 02/03/2025 2:32 PM EDT us Bessy Kern MD LAB BLOOD ORDERABLES Final Resul t Performing Organization Address [facility]/ZIP Co de Phone Number [facility] [address] [place] [address], [place] [phone] * Prothrombin time with INR (02/03/2025 2:03 PM EDT) Protime 11.4 10.6 - 13.9 sec LAB COAGULATION METHOD 02/03/2025 3:14 PM EDT [facility] INR 0.9 LAB COAGULATION METHOD 02/03/2025 3:14 PM EDT [facility] Blood Venous blood specimen / Unknown Venipuncture / Unknown 02/03/2025 2:03 PM EDT 02/03/2025 2:32 PM EDT Bessy Kern MD LAB BLOOD ORDERABLES Final Resul t Performing Organization Address [facility]/ZIP Co de Phone Number [facility] [address] [place] [address], [place] [phone] * Type and screen (02/03/2025 2:03 PM EDT) ABO Group O 02/06/2025 9:01 AM EDT [facility] Rh Type Positive 02/06/2025 9:01 AM EDT [facility] Antibody Screen Negative 02/06/2025 9:01 AM EDT [facility] Blood Venous blood specimen / Unknown Venipuncture / Unknown 02/03/2025 2:03 PM EDT 02/03/2025 2:31 PM EDT Bessy Kern MD LAB BLOOD BANK TEST ORDERABLES F inal Result Performing Organization Address [facility]/ZIP Co de Phone Number [facility] [address] [place] [address], [place] [phone] from Last 3 Months Insurance MEDICAID - [place] Advance Directives * Full Code - Default (Latest Code Status on File) Date Activated Date Inactivated Comments 02/11/2025 12:49 PM 02/12/2025 2:23 PM This is order is used when code status has not been discussed with the patient, or code status is otherwise unknown/unconfirmed To update the patient's code status, place a code status order. Do not modify or discontinue any currently active code status orders. * Full Code - Default Date Activated Date Inactivated Comments 02/11/2025 8:25 AM 02/11/2025 12:49 PM This is order is used when code status has not been discussed with the patient, or code status is otherwise unknown/unconfirmed To update the patient's code status, place a code status order. Do not modify or discontinue any currently active code status orders. Care Teams Electronic Typesetting Machine Operator Relationship Specialty Start Date End Date Mychal Long MD [address] [place] [address] [place] [address] PCP - General 12/26/11
--- OUTSIDE RECORDS SUMMARY | 2025-04-06 14:51 | XMS_ITS | Data Portability ---
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 Pathology was reviewed to be benign. 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 Overall reassurance was provided. follow up as scheduled. [email or web address] Not available 04/28/2024 15:04:21 Plan of Treatment [...] observ ation record ed. [email or web address] [facility] [address], [address], 02/25/2024 09:12:35 03/31/20 24 03/31/2024 US, neck, soft tissu e No observ ation record [facility]. [email or web address] [address] [place], [address], 04/11/2024 16:05:21 04/28/20 24 04/10/2024 clini bertha photo * No observ ation record ed. [email or web address] Not Available 17:00:02 04/29/20 24 05/08/2023 imagi ng/di agnos tic resul t No observ ation record ed. [email or web address] Not Available 21:42:28 Result Notes None recorded. Problems Name Problem SNOMED Code Status Onset Date Resolution Date Notes Provider Name and Address Organization Details Recorded Time Mass of neck 137267447 Active 2023 Localized swelling, mass and lump, neck; Note: Date Diagnosed : 11/08/2023 11:56 AM (R22.1) Not Available [facility] 02:45:02 Neck swelling 616690537 Active 2023 Localized swelling, mass and lump, neck; Note: Date Diagnosed : 11/08/2023 11:56 AM (R22.1) Not Available [facility] 4 02:45:02 Neck pain 27057172 Active 2023 Cervicalg ia; Note: Date Diagnosed : 11/08/2023 11:56 AM (M54.2) Not Available [facility] 4 02:45:02 Dysphagia 19038742 Active 2023 Dysphagia , unspecifi ed; Note: Date Diagnosed : 11/08/2023 11:56 AM (R13.10) Not Available [facility] 4 02:45:05 Non-toxic uninodula r goiter 214029566 Active 2023 Nontoxic single thyroid nodule; Note: Date Diagnosed : 01/18/2024 11:58 AM (E04.1) Not Available [facility] 4 02:45:01 Thyroid nodule 673827040 Active 2023 MADHU REYES MD [address] [place] [address], [place], [address] , [place] - [facility] 4 16:36:38 Hypertrop hy of tonsils AND adenoids 43242781 Active 2023 MADHU REYES MD 100 [facility],[place] [address], [place], [address] , [place] - [facility] [place] [place] 4 16:36:47 Hypertrop hy of lingual tonsil 460629498 Active 2023 MADHU REYES MD [address] [facility] [place] [address], [place], [address] , [place] - [facility] [place] [place] 4 16:36:52 Obstructi ve sleep apnea of adult 67131948636 03 Active 2023 MADHU REYES MD [address] [facility] [place],[facility] 100, [place], [address] , [place] - [facility] [place] 4 08:48:15 Seasonal allergic rhinitis 612664194 Active 2023 MADHU REYES MD [address] [facility] [place] [address], [place], [address] , [place] - [facility] [place] [place] 4 08:52:06 Allergic rhinitis 18474932 Active 2023 MADHU REYES MD 100 [facility] 100, [place], [address] , [facility] - [facility] 4 08:52:17 Non-aller gic rhinitis 44508103891 1 Active 2023 MADHU REYES MD 100 [facility] 100, [place], [address] , [facility] - [facility] 4 08:52:17 Problem Notes None recorded. Procedures Surgical History Date Name Laterality Status Provider Name and Address Organization Details Recorded Time 4 LARYNGOSCOPY, DIRECT OPERATIVE WITH OPERATING MICROSCOPE OR TELESCOPE WITH BIOPSY (SURG) completed Paulo Faria [place] - [facility] 04/14/2024 09:38:40 4 FFL_RE completed MADHU REYES MD 100 [facility] 100, [place], [address], [facility] [...] % eye drops active Medicatio n ID: [id number] Br and Name: latanopro st Send Method: E-Prescri bed Subs Allowed: subs OK Specia l Instructi on: PUT 1 DROP INTO BOTH EYES AT BEDTIME M edication GenericNa me: latanopro st Not Available Not Available Not Available terconazol e 0.4 % vaginal cream active Medicatio n ID: [id number] Br and Name: terconazo le Send Method: [...] 8.6 mg tablet active Medicatio n ID: [id number] Br and Name: sakshi [place] Method: E-Prescri [...] 20 mg tablet active Medicatio n ID: [id number] Br and Name: dicyclomi ne Send Method: [...] 10 mg tablet active Medicatio n ID: [id number] Br and Name: buspirone Send Method: E-Prescri [...] 100 mg capsule active Medicatio n ID: [id number] Br and Name: gabapenti n Send Method: [...] % topical gel active Medicatio n ID: [id number] Br and Name: diclofena c sodium Se nd Method: E-Prescri bed Subs Allowed: subs OK Specia l Instructi on: APPLY 1 INCH TOPICALLY IF NEEDED IN THE MORNING AND AT BEDTIME (PAIN). [facility] Generic me: diclofena c sodium Not Available Not Available Not Available Vitamin D3 50 mcg (2,000 unit) tablet TAKE 1 TABLET BY MOUTH EVERY DAY active Not Available Not Available No t Available Creon 24,000-76, 000-120,00 0 unit capsule,de layed release active Medicatio n ID: [id number] Br and Name: Creon Sen d Method: E-Prescri bed Subs Allowed: subs OK Specia l Instructi on: TAKE 1 CAPSULE BY MOUTH 4 TIMES A DAY. ADMINISTE R WITH MEALS AND OR SNACKS Ct dicationG enericNam e: Creon Not Available Not Available Not Available blood pressure test kit-large cuff active Medicatio n ID: [id number] Br and Name: blood pressure test kit-large Send Method: E-Prescri bed Subs Allowed: subs OK Specia l Instructi on: USE TO CHECK BLOOD PRESSURE ONCE DAILY IN THE MORNING [facility] me: blood pressure test kit-large Not Available Not Available Not Available Dexilant 60 mg capsule, delayed release active Medicatio n ID: [id number] Br and Name: Dexilant Send Method: E-Prescri [...] Updated DateTime 03/18/2024 160.02 cm 36.8 kg/m2 68380.21 g Kodi Soni [place] - [facility] 03/18/2024 16:16:00 Date Recorded Body height Body mass index (BMI) Body weight Provider Name and Address Organization Details Last Updated DateTime 04/25/2024 160.02 cm 36.8 kg/m2 25545.21 g Janeth Castro [place] - [facility] 04/25/2024 15:19:15 Date Recorded Body height Body mass index (BMI) Body weight Provider Name and Address Organization Details Last Updated DateTime 07/30/2024 160.02 cm 36.8 kg/m2 53361.21 g Marley Rosalio [facility] 07/30/2024 08:31:21 Social History None recorded. [...] Note [id number] MADHU REYES MD [facility] [address] [address] 03/18/2024 15:41:26 03/18/2024 17:01:09 Thyroid nodule 546062606 E04.1 I recommend a US guided FNA of the thyroid nodule. She will f/u to review. Hypertroph y of tonsils AND adenoids 98806351 J35.3 hypertroph y of Waldeyer's ring. lingual tonsil biopsy is less morbid to evaluate for lymphoma. see below. Hypertroph y of lingual tonsil 053184591 J35.3 I recommend direct laryngosco py with [...] We will schedule surgery mutually convenient time. [id number] CIERRA GARCIA PA-C [facility] [place] [address] [place] [address] 04/25/2024 15:12:06 04/30/2024 07:57:22 Hypertrophy of lingual tonsil 423953658 J35.3 Hypertroph y of tonsils AND adenoids 04757937 J35.3 Neck pain 95019655 M54.2 [id number] MADHU REYES MD [facility] [address] [place] [address] 07/30/2024 08:28:17 07/30/2024 08:55:15 Hypertrophy of lingual tonsil 128884065 J35.3 Biopsies negative. Gave reassuranc e. Continue observatio n. Deferred laryngosoc py today. Obstructiv e sleep apnea of adult 3573604306 103 G47.33 Agree with starting CPAP which is in process. Thyroid nodule 561986304 E04.1 Recommend repeat thyroid US at [facility] after next visit in 6 months. Seasonal a llergic rhinitis 592431940 J30.2 Exam and history are consistent with allergic rhinitis. We will obtain allergy testing to clarify the extent of allergy with f/u to review. Allergic rhinitis 445571 04 J30.9 Non-allergic rhinitis 31 90062165 01 J31.0 Health Concerns Section Related Observation LastModified by Organization Detai ls LastModified Time None Recorded Concern Status LastModified by Organization Details LastModified Time None Recorded Advance Directives Directive None Recorded Payers Insurance Date Sequence Insurance Name Policy Number Policy Tompkins Covered Member ID Tompkins Member ID Guarantor Name 02/27/2025 1 [place] [facility] Elaine Rodas [id number] Elaine Rodas OBGyn Episode No OBEpisode recorded.
== END 2025-04-06 15:45 | disposition home or self-care (01) ==
LOC: HO.HUSH 14:06
PROVIDERS: PCP Internal Medicine; Visit Provider Urology
DX: N32.81 Overactive bladder (principal); F17.200 Nicotine dependence, unspecified, uncomplicated; R31.9 Hematuria, unspecified; R31.29 Other microscopic hematuria; Z13.9 Encounter for screening, unspecified
CPT/HCPCS: 52000; 99214

== ENCOUNTER → 2025-04-06 14:06 | Outpatient (BNVA) | payer MEDICAID, SELFPAY | PROVIDERS: PCP Internal Medicine; Visit Provider Urology | DX: N32.81 Overactive bladder (principal); F17.200 Nicotine dependence, unspecified, uncomplicated; R31.9 Hematuria, unspecified; R31.29 Other microscopic hematuria | CPT/HCPCS: 52000; 81003; 99212 ==

== ENCOUNTER 2025-04-10 14:17 | Outpatient (AMB) | payer MEDICAID, SELFPAY ==
--- NOTE | 2025-04-10 14:20 | MHC.OFFVIS ---
Vital Signs 04/10/25 14:34 Height 5 ft 3 in BP 139/80 Blood Pressure Location Lt brachial Position Sitting Pulse 97 Intake Visit Reasons: Post Cholecystectomy syndrome r/s 02/19/25 Intake Note: Elaine returns to in office follow up of post cholecystectomy syndrome. CC: Patient reports that she underwent surgery to remove lung and thorax nodules last month. Patient c/o nausea every day, and constipation x2 days. 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 Accompanied by: Self / Same As Patient Allergies metronidazole Allergy (Severe, Verified 04/20/25 13:10) vomiting Penicillins Allergy (Mild, Verified 04/20/25 13:10) VAGINAL FUNGUS INFECTION lisinopril (LISINOPRIL) Allergy (Unknown, Verified 04/20/25 13:10) COUGH verapamil Allergy (Unknown, Verified 04/20/25 13:10) unknown amoxicillin Adverse Reaction (Verified 04/20/25 13:10) Unknown HPI HPI Post Cholecystectomy syndrome r/s 02/19/25: Details: Assessment & Plan (1) Right sided abdominal pain: Code(s): R10.9 - Unspecified abdominal pain Plan: [place] # [place] [employer] Her pain is in the right mid quad, NOT THE LUQ, so I misunderstood this at the last visit. IT is still there, but not all of the time. It usually occurs in the afternoons and is not associated with eating or moving her bowels. I will give a trial of bentyl to see if it is colon spasm, if this does not work likely back/ms pain. We review the barium swallow, and it shows presbyesophagus. She had some delay in the swallowing phase that cleared with subsequent swallows. Safe swallowing reviewed. She also will be seeing ENT for a laryngoscopy in the near future, likely a good idea. The studies for the RUQ pain are all unremarkable in terms of the labs and US. She was worried that it was her liver or pancreas but these all look good in terms of labs adn imaging. senna and uses it intermittently with good results. She also continues on her Dexlant and creon. ROV 6 weeks. (2) Irritable bowel syndrome with both constipation and diarrhea: Comment: Constipation seems to be the dominant process Code(s): K58.2 - Mixed irritable bowel syndrome (3) Post-cholecystectomy syndrome: Code(s): K91.5 - Postcholecystectomy syndrome (4) Presbyesophagus: Code(s): K22.89 - Other specified disease of esophagus Medications: New dicyclomine 20 mg PO QID 120 tabs 1RF 30 days dicyclomine pt had surgery to correct glaucoma 20 mg PO QID 120 tabs 1RF 30 days TODAY'S VISIT [place] #Jenise live Patient has been lost to follow-up since 05/2023 In the past she was on Dexilant Creon senna and dicyclomine. She has been struggling with her pulmonary status, as she seems to have unexplained pleural effusions and underwent a biopsy for this. She has been out of her Dexilant for about a year! With her hx of erosvie gastritis, this is not good. She is having a lot of nausea, and her CIC has returned. SHe also has been out of her senna. ROV 6 weeks. [facility] Medical History Cataract, right eye Bilateral primary osteoarthritis of knee Gallstone pancreatitis Palpitations Fibromyalgia Depression Glaucoma HTN (hypertension) Surgical History H/O colonoscopy History of tubal ligation Hx of carpal tunnel repair Hx of cholecystectomy Hx of knee surgery Family History Father Kidney disease Mother CVD (cardiovascular disease) Colon cancer Social History Alcohol intake: never Patient Tobacco Use Status: Current everyday Tobacco user Cigarette Packs Per Day: 0.5 Cigarettes Per Day: 10 Years Smoked: 30 Female Reproductive History Menstrual Age of Menarche: 9 Review of Systems Const Denies fatigue, Denies fever(s), Denies night sweats, Denies poor appetite and Denies weight loss ENT Reports Normal hearing present, Denies dental pain, Denies dysphagia, Denies hearing loss, Denies mouth pain, Denies odynophagia, Denies throat swelling, Denies tongue swelling and Reports other (Dentition adequate) Card Reports no additional complaints Resp Reports no additional complaints GI Details: Denies abdominal pain, Denies melena, Reports bloating, Denies hematochezia, Reports constipation, Denies GI cramping, Denies dysphagia, Denies excessive flatus, Denies early satiety, Reports dyspepsia, Reports heartburn, Denies diarrhea, Reports loose stools, Denies nausea, Denies odynophagia, Denies vomiting and Denies hematemesis Skin/Breast Denies pruritus, Denies lesions, Denies rash and Denies jaundice Neuro Reports Normal hearing present and Denies Abnormal speech present Endo Denies fatigue Aller/Immun Denies throat swelling and Denies tongue swelling Physical Exam Vital Signs: Last Vital Signs Pulse 97 04/10/25 14:34 BP 139/80 04/10/25 14:34 Const General: cooperative, no acute distress, well developed and well groomed Nutritional Appearance: well nourished and obese Orientation/consciousness: oriented to person, oriented to place and oriented to time Limitations: language barrier and ambulation with cane HEENT Head: Yes normocephalic and Yes atraumatic Eyes General: appearance normal, both eyes and all related structures Pupils: Equal, round and reactive pupils present Neck Neck: Yes normal visual inspection and Yes no lymphadenopathy Thyroid: Thyroid normal Resp Effort & Inspection: normal respiratory effort and able to speak in complete sentences Auscultation: clear to auscultation bilaterally Cardio Rate: regular rate Rhythm: regular rhythm Heart sounds: Normal, physiologic split S2 sound present Peripheral pulses: radial pulses present and posterior tibial pulses present GI Inspection: No distended, Yes Abdominal panniculus present and Yes obesity Palpation (GI): Soft to palpation, nontender, no guarding, not rigid and No hepatosplenomegaly present Percussion: Yes normal to percussion Auscultation: normal bowel sounds Rectal Exam - Female: deferred Skin General skin exam: no rashes or lesions noted, turgor normal, skin not dry, no jaundice, No spider nevi and no striae Rashes: no rashes Nails: normal Neuro General: oriented to person, oriented to place and oriented to time Cranial nerves: Yes Equal, round and reactive pupils present and Yes Normal hearing present Speech: No Abnormal speech present Extrem General: Yes normal to inspection, No clubbing, No cyanosis and No edema Psych Appearance: grossly normal and well kempt Mental Status: mental status grossly normal Speech and movement: Normal speech and movement present Affect: normal affect Attitude: cooperative Thought process: Normal thought process present and not confabulating Thought content: Normal thought content present Insight: Limited insight present (Psych) Judgement: Limited judgement present (Psych) Assessment & Plan Assessment & Plan (1) Post-cholecystectomy syndrome: Code(s): K91.5 - Postcholecystectomy syndrome Category: Medical (2) Erosive gastritis: Code(s): K29.60 - Other gastritis without bleeding Category: Medical (3) Nausea: Code(s): R11.0 - Nausea Category: Medical Plan [place] #Jenise live Patient has been lost to follow-up since 05/2023 In the past she was on Dexilant Creon senna and dicyclomine. She has been struggling with her pulmonary status, as she seems to have unexplained pleural effusions and underwent a biopsy for this. She has been out of her Dexilant for about a year! With her hx of erosvie gastritis, this is not good. She is having a lot of nausea, and her CIC has returned. SHe also has been out of her senna. ROV 6 weeks. Medications: New hydrocortisone 2.5% (Proctosol HC) BE SURE TO INCLUDE RECTAL APPICATOR!! 1 appl NH BID 30 grams 6RF hemorrhoids K64.9 - Unspecified hemorrhoids dexlansoprazole (Dexilant) 60 mg PO DAILY 30 caps 6RF 30 days K29.60 - Other gastritis without bleeding Changed From sennosides 1-2 tabs qhs orally bedtime; 30 days 60 caps 6RF constipation To sennosides (senna) 1-2 tabs qhs orally bedtime; 60 caps 6RF constipation 30 days Coding Level of Care Code Est Pt Level 3 (28954) Diagnoses Post-cholecystectomy syndrome K91.5 Erosive gastritis K29.60 Nausea R11.0
--- OUTSIDE RECORDS SUMMARY | 2025-04-10 14:21 | XMS_ITS | Clinical Summary ---
Author Organization [facility] 299 [facility] Address [address] [place] [address] Phone Care Team Providers Care Pipe Coverer Name Role Phone Mychal Long MD Primary [...] her lung cancer screening program here at [facility] with her LDCT due December 2025. Patient may follow-up with us here in thoracic surgery on an as-needed basis going forward. Resolved Problems Problem Noted Date Diagnosed Date Resolved Date Mediastinal mass 01/26/2025 02/26/2025 Mediastinal lymphadenopathy 01/26/2025 02/26/2025 Encounters Date Type Department Care Team Description 03/25/2025 Telephone Pulmonology - [place] [address] [phone] Kylie Simons [place] 03/24/2025 5:49 PM EDT - 03/24/2025 11:59 PM EDT Hospital Encounter [facility] Xray [address] [place] [address] Bilateral pleural effusion Discharge Disposition: Home or Self Care 03/24/2025 4:00 PM EDT Office Visit Pulmonology - [place] [address] [facility] [address] [place] [phone] Rosy Rhodes MD Bilateral pleural effusion (Primary Dx); Thymic cyst (CMS/HCC V24) 03/02/2025 2:45 PM EDT - 03/02/2025 11:59 PM EDT Hospital Encounter [facility] Ultrasound [address] [place] [address] Pain in both lower extremities Discharge Disposition: Home or Self Care 02/26/2025 10:15 AM EDT Office Visit Thoracic Surgery - [place] [address] [address] Silvia Romeo PA Thymic cyst (CMS/HCC V24) (Primary Dx); Pain in both lower extremities; Tobacco abuse 02/26/2025 10:08 AM EDT - 02/26/2025 11:59 PM EDT Hospital Encounter [facility] Xray [address] [place] [address] Mediastinal mass Discharge Disposition: Home or Self Care 02/26/2025 Telephone Thoracic Surgery - [place] [address] [address] Teodora Walker MA 02/13/2025 Telephone Thoracic Surgery - [place] [address] [address] Marlena Morris RN 02/11/2025 8:30 AM EDT - 02/11/2025 12:30 PM EDT Surgery [facility] Main OR [address] [place] [address] Bessy Kern MD DaVinci thymectomy 02/11/2025 8:29 AM EDT Anesthesia Event [facility] Main OR [address] [place] [address] Amrita Soto MD Elliott, Barbara J, ROLLING MACHINE OPERATOR AUTOMATIC 02/11/2025 7:18 AM EDT - 02/12/2025 12:23 PM EDT Hospital Encounter [facility] Intermediate Care Unit B [address] [place] [address] Bessy Kern MD Bell, Alistair A, MD Mediastinal mass; Mediastinal lymphadenopathy Discharge Disposition: Home-Health Care Sv 02/03/2025 Telephone Thoracic Surgery - [address] [phone] Marlena Morris RN 01/27/2025 Telephone Thoracic Surgery [address] [phone] Angelika Chang MA Procedure (Preop, Surgery, PostOp) 01/26/2025 1:45 PM EDT Consult Thoracic Surgery - [address] [phone] Bessy Kern MD Mediastinal mass (Primary Dx); [...] 3:00 PM EDT Office Visit Pulmonology - [address] [address] Rosy Rhodes MD [address] [place] [phone] Health Maintenance Due Date Last Done Comments [...] Procedure Name Priority Date/Time Associated Diagnosis Comments MN THORACENTESIS PLEURAL SPACE NEEDLE/CATH ASPIRATION W IMAGING [...] lymphadenopathy from Last 3 Months Results * MN THORACENTESIS PLEURAL SPACE NEEDLE/CATH ASPIRATION W IMAGING [...] infection and pneumothorax Alternatives discussed: No treatment [place] protocol: Procedure explained and questions answered to [...] midscapular line Intercostal space: 8th Puncture method: [id number] catheter Ultrasound guidance: yes Indwelling catheter placed: [...] since the prior study performed 02/26/2025. Code 08410 -------- FINAL REPORT -------- Dictated By: Adán Cerna Dictated Date: 03/25/2025 07:32 ET Assigned Physician: Adán Cerna Reviewed and Electronically Signed By: Adán Cerna Signed Date: 03/25/2025 07:34 ET Workstation ID: [id number] Transcribed By: Self Edit Transcribed Date: 03/25/2025 [...] resolved since the prior study performed02/26/2025. Code 19591 -------- FINAL REPORT -------- Dictated By: Adán Cerna Dictated Date: 03/25/2025 07:32 ET Assigned Physician: Adán Cerna Reviewed and Electronically Signed By: Adán Cerna Signed Date: 03/25/2025 07:34 ET Workstation ID: [id number] Transcribed By: Self Edit Transcribed Date: 03/25/2025 [...] - Final [facility] [address] [place] [address], [place] [phone] * Culture body fluid with gram stain [...] GENERAL ORDERABLES Final Result Performing Organization Address [facility]/ZIP Co de Phone Number [facility] [address] [place] [address], [place] [phone] * Differential body fluid (03/24/2025 5:33 PM [...] Final Result [facility] [address] [place] [address], [place] [phone] * Pathology review, body fluid (03/24/2025 5:33 PM EDT) Pathologist review Body Fluid Cytocentrifuge prep: -Negative for malignancy JS [facility] Pleural Fluid Structure of right pleural cavity / Unknown Non-blood Collection / Unknown 03/24/2025 5:33 PM EDT 03/24/2025 5:45 PM EDT us Rosy Rhodes MD LAB BODY FLUIDS AND STOOLS ORDERABLES Final Result Performing Organization Address [facility] de Phone Number [facility] [address] [place] [address], [place] [phone] * Triglycerides, body fluid (03/24/2025 5:33 PM EDT) Triglycerides , Fluid 36 See Comment mg/dL LAB CHEMISTRY METHOD 03/25/2025 12:15 PM EDT [facility] Pleural Fluid Structure of right pleural cavity / Unknown Non-blood Collection / Unknown 03/24/2025 5:33 PM EDT 03/24/2025 5:45 PM EDT [facility] - 03/25/2025 12:15 PM EDT No reference ranges have been established for body fluids. Clinical correlation recommended. us Rosy Rhodes MD LAB BODY FLUIDS AND STOOLS ORDERABLES Final Result Performing Organization Address [facility] de Phone Number [facility] [address] [place] [address], [place] [phone] * Protein, body fluid (03/24/2025 5:33 PM EDT) Protein, Fluid 5.4 See Comment g/dL LAB CHEMISTRY METHOD 03/24/2025 6:52 PM EDT [facility] Pleural Fluid Structure of right pleural cavity / Unknown Non-blood Collection / Unknown 03/24/2025 5:33 PM EDT 03/24/2025 5:45 PM EDT [facility] - 03/24/2025 6:52 PM EDT No reference ranges have been established for body fluids. Clinical correlation recommended. us Rosy Rhodes MD LAB BODY FLUIDS AND STOOLS ORDERABLES Final Result Performing Organization Address [facility] Co de Phone Number [facility] [address] [place] [address], [place] [phone] * Lactate dehydrogenase, body fluid (03/24/2025 5:33 [...] STOOLS ORDERABLES Final Result Performing Organization Address [facility] Co de Phone Number [facility] [address] [place] [address], [place] [phone] * Glucose, body fluid (03/24/2025 5:33 PM EDT) Glucose, Fluid 125 See Comment mg/dL LAB CHEMISTRY METHOD 03/24/2025 7:28 PM EDT [facility] Pleural Fluid Structure of right pleural cavity / Unknown Non-blood Collection / Unknown 03/24/2025 5:33 PM EDT 03/24/2025 5:45 PM EDT [facility] - 03/24/2025 7:28 PM EDT No reference ranges have been established for body fluids. Clinical correlation recommended. us Rosy Rhodes MD LAB BODY FLUIDS AND STOOLS ORDERABLES Final Result Performing Organization Address City/[facility]/ZIP Co de Phone Number [facility] [address] [place] [address], * Non-gynecologic cytology (03/24/2025 5:33 PM EDT) [...] paraffin embedded. Technical cytopathology services provided by [facility], at [address] [place] [id number] (CLIA # [id number]/Jose Paula MD, Electric Meter Installer.) 03/26/2025 8:41 AM EDT [facility] Pleural Fluid Structure of right pleural cavity / Unknown Non-blood Collection / Unknown 03/24/2025 5:33 PM EDT 03/25/2025 9:54 AM EDT us Rosy Rhodes MD LAB CYTOLOGY ORDERABLES Fi nal Result Performing Organization Address City/[facility]/ZIP Co de Phone Number [facility] [address] [place] [address], * External CT Report (03/17/2025) Anatomical Region [...] Signed Date: 03/02/2025 15:18 ET Workstation ID: [id number] Transcribed By: Self Edit Transcribed Date: 03/02/2025 [...] Signed Date: 03/02/2025 15:18 ET Workstation ID: [id number] Transcribed By: Self Edit Transcribed Date: 03/02/2025 15:17 ET Silvia RED CV VASCULAR PROCEDURES Final Result * (ABNORMAL) CBC - Every 3 Days (02/12/2025 6:18 AM EDT) WBC 16.2(H) 4.8 - 10.8 K/mcL LAB HEMETOLOGY METHOD 02/12/2025 7:11 AM EDT [facility] RBC 3.80 3.80 - 4.80 M/mcL LAB HEMETOLOGY METHOD 02/12[facility]2025 [facility] Hemoglobin 11.4(L) 11.5 - 16.0 g/dL LAB HEMETOLOGY METHOD 02/12/2025 7:[address] [facility] Hematocrit 34.5(L) 35.0 - 47.0 % LAB HEMETOLOGY METHOD 02/12/2025 7:[address] [facility] MCV 90.3 79.0 - 98.0 FL LAB HEMETOLOGY METHOD 02/12/2025 7:[address] [facility] MCH 29.8 27.0 - 32.0 pcg LAB HEMETOLOGY METHOD 02/12/2025 7:[address] [facility] MCHC 33.0 32.0 - 37.0 g/dL LAB HEMETOLOGY METHOD 02/12/2025 7[facility] RDW 13.1 11.0 - 15.0 % LAB HEMETOLOGY METHOD 02/12/2025 7:[address] [facility] Platelets 292 130 - 400 K/mcL LAB HEMETOLOGY METHOD 02/12/2025 7:[address] [facility] MPV 9.9 7.0 - 11.0 [...] ORDERABLES Final Re sult Performing Organization Address City/[facility]/ZIP Co de Phone Number [facility] [address] [place] [address], [place] [phone] * Phosphorus (02/12/2025 6:18 AM EDT) Phosphorus 3.2 2.5 - 4.5 mg/dL LAB CHEMISTRY METHOD 02/12/2025 7:23 AM EDT [facility] Blood Venous blood specimen / Unknown Venipuncture / Unknown 02/12/2025 6:18 AM EDT 02/12/2025 6:42 AM EDT Silvia RED LAB BLOOD ORDERABLES Final Re sult [facility] [address] [place] [address], [place] [phone] * Magnesium (02/12/2025 6:18 AM EDT) Magnesium 1.9 1.9 - 2.6 mg/dL LAB CHEMISTRY METHOD 02/12/2025 7:23 AM EDT [facility] Blood Venous blood specimen / Unknown Venipuncture / Unknown 02/12/2025 6:18 AM EDT 02/12/2025 6:42 AM EDT us Silvia RED LAB BLOOD ORDERABLES Final Re sult [facility] [address] [place] [address], [place] [phone] * (ABNORMAL) Basic metabolic panel (02/12/2025 6:18 AM EDT) Only the most recent of2 resultswithin the time period is included. Sodium 138 133 - 145 mmol/L LAB CHEMISTRY METHOD 02/12/2025 7:[address] [facility] Potassium 4.3 3.5 - 5.5 mmol/L LAB CHEMISTRY METHOD 02/12/2025 7:[address] [facility] Chloride 107 96 - 110 mmol/L LAB CHEMISTRY METHOD 02/12/2025 7:[address] [facility] CO2 27 21 - 32 mmol/L LAB CHEMISTRY METHOD 02/12/2025 7:[address] [facility] Anion Gap 4 3 - 11 LAB CHEMISTRY METHOD 02/12/2025 7:[address] [facility] Glucose 148(H) 70 - 100 mg/dL LAB CHEMISTRY METHOD 02/12/2025 7:[address] [facility] BUN 15 5 - 25 mg/dL LAB CHEMISTRY METHOD 02/12/2025 7:[address] [facility] Creatinine 0.98 0.50 - 1.10 mg/dL LAB CHEMISTRY METHOD 02/12/2025 7:[address] [facility] eGFR 69 >=60 mL/min/1. 73m2 LAB CHEMISTRY METHOD 02/12/2025 7:[address] [facility] Comment:Calculation based on the Chronic [...] sult [facility] [address] [place] [address], [place] [phone] * XR Chest 1 View (02/12/2025 5:45 [...] Signed Date: 02/12/2025 08:29 ET Workstation ID: [id number] Transcribed By: Self Edit Transcribed Date: 02/12/2025 [...] Signed Date: 02/12/2025 08:29 ET Workstation ID: [id number] Transcribed By: Self Edit Transcribed Date: 02/12/2025 [...] Inking code: Blue-inferior Green-anterior Yellow-right Black-posterior Red-superior [place]-left Funeral Home Assistant sections are submitted as follows: 1-4, complete [...] MD LAB PATHOLOGY ORDERABLES Final R esult [facility] [address] [place] [address], * TH AN ARTERIAL LINE (CHARGE) (02/11/2025 [...] and Staff Patient location during procedure: OR Resident/ROLLING MACHINE OPERATOR AUTOMATIC: Chuy Dickson CRNA Performed: resident/ROLLING MACHINE OPERATOR AUTOMATIC/CAA Performed by: Chuy Dickson CRNA Authorized by: [...] Units (02/11/2025 8:51 AM EDT) Product Code [id number] 02/12/2025 6:52 AM EDT [facility] Unit Number [id number] 02/13/20 6:52 AM EDT [facility] Crossmatch Compatible 02/11/2025 9:07 AM EDT [facility] Dispense Status Released From Crossmatch 02/12/2025 6:[address] [facility] Unit ABO Rh OPOS 02/12/2025 6:[address] [facility] Unit Expiration Date Time [id number] 02/12/2025 6:[address] [facility] Unit Blood Type 5100 02/12/2025 6:52 AM EDT [facility] Product Code [id number] 02/12/2025 6:52 AM EDT [facility] Unit Number [id number] 02/13/20 6:52 AM EDT [facility] Crossmatch Compatible 02/11/2025 9:09 AM EDT [facility] Dispense Status Released From Crossmatch 02/12/2025 6:52 AM EDT [facility] Unit ABO Rh OPOS 02/12/2025 6:52 AM EDT [facility] Unit Expiration Date Time [id number] 02/12/2025 6:52 AM EDT [facility] Unit Blood Type 5100 02/12/2025 6:52 AM EDT [facility] Blood Venous blood specimen / Unknown 02/11/2025 8:51 AM EDT 02/03/2025 2:31 PM EDT Silvia RED BLOOD BANK PRODUCT ORDERABLES Final Result [facility] [address] [place] [address], * ECG 12 lead - Procedural (No Charge) (02/03/2025 2:13 PM EDT) Ventricular Rate ECG 82 BPM GEMUSE Atrial Rate 82 BPM GEMUSE P-R Interval 132 ms GEMUSE QRS Duration 72 ms GEMUSE Q-T Interval 366 ms GEMUSE QTc 427 ms GEMUSE P Wave [place] 49 degrees GEMUSE R [place] 10 degrees GEMUSE T [place] -2 degrees GEMUSE ECG Interpretation Normal sinus [...] [place] LAB HEMETOLOGY METHOD [facility]/03[facility]2025 [facility] NRBC 0.0 <1.0 % LAB HEMETOLOGY METHOD 02/03/2025 2:[facility] NRBC Absolute 0.00 <0.10 K/mcL LAB HEMETOLOGY METHOD 02/03/2025 2:[address] [facility] Neutrophils Relative 54.4 % LAB HEMETOLOGY METHOD 02/03/2025 2:[facility] Lymphocytes Relative 37.8 % LAB HEMETOLOGY METHOD 02/03/2025 2:[address] [facility] Monocytes Relative 5.3 % LAB HEMETOLOGY METHOD 02/03/2025 2:[address] [facility] Eosinophils Relative 1.7 % LAB HEMETOLOGY METHOD 02/03/2025 2:[address] [facility] Basophils Relative 0.5 % LAB HEMETOLOGY METHOD 02/03/2025 2:[address] [facility] Immature Granulocytes Relative 0.3 % LAB HEMETOLOGY METHOD 02/03/2025 2:[address] [facility] Neutrophils Absolute 4.12 1.50 - 7.00 K/mcL LAB HEMETOLOGY METHOD 02/03/2025 2:[address] [facility] Lymphocytes Absolute 2.86 1.00 - 5.00 K/mcL LAB HEMETOLOGY METHOD 02/03/2025 2:42 PM EDT [facility] Monocytes Absolute 0.40 0.20 - 1.00 K/mcL LAB HEMETOLOGY METHOD 02/03/2025 2:[address] [facility] Eosinophils Absolute 0.13 0.00 - 0.50 K/mcL LAB HEMETOLOGY METHOD 02/03/2025 2:[address] [facility] Basophils Absolute 0.04 0.00 - [...] ORDERABLES Final Resul t Performing Organization Address [facility]/ZIP Co de Phone Number [facility] [address] [place] [address], [place] [phone] * Activated partial thromboplastin time (02/03/2025 2:03 PM EDT) aPTT 33.5 24.1 - 39.3 sec LAB COAGULATION METHOD 02/03/2025 3:14 PM EDT [facility] Blood Venous blood specimen / Unknown Venipuncture / Unknown 02/03/2025 2:03 PM EDT 02/03/2025 2:32 PM EDT us Bessy Kern MD LAB BLOOD ORDERABLES Final Resul t Performing Organization Address [facility]/ZIP Co de Phone Number [facility] [address] [place] [address], [place] [phone] * Prothrombin time with INR (02/03/2025 2:03 [...] ORDERABLES Final Resul t Performing Organization Address [facility]/ZIP Co de Phone Number [facility] [address] [place] [address], [place] [phone] * Type and screen (02/03/2025 2:03 PM [...] ORDERABLES F inal Result Performing Organization Address [facility]/ZIP Co de Phone Number [facility] [address] [place] [address], [place] [phone] from Last 3 Months Insurance MEDICAID - [...] currently active code status orders. Care Teams Pipe Coverer Relationship Specialty Start Date End Date Mychal Long MD [address] [place] [address] [place] [address] PCP - General 12/26/11
[2025-04-10 14:34] VITALS: BP 139/80; PULSE 97
== END 2025-04-10 15:37 | disposition home or self-care (01) ==
LOC: HO.HGI 14:18
PROVIDERS: PCP Internal Medicine; Visit Provider Nurse Practitioner
DX: K91.5 Postcholecystectomy syndrome (principal); K29.60 Other gastritis without bleeding; R11.0 Nausea
CPT/HCPCS: 99213

== ENCOUNTER → 2025-04-10 14:17 | Outpatient (BNVA) | payer MEDICAID, SELFPAY | PROVIDERS: PCP Internal Medicine; Visit Provider Nurse Practitioner | DX: R11.0 Nausea (principal); Z98.890 Other specified postprocedural states; K91.5 Postcholecystectomy syndrome; K29.60 Other gastritis without bleeding | CPT/HCPCS: 99212 ==

== ENCOUNTER 2025-04-20 12:29 | Outpatient (AMB) | payer MEDICAID, SELFPAY ==
--- OUTSIDE RECORDS SUMMARY | 2025-04-20 12:36 | XMS_ITS | Encounter Summary ---
Author Organization [employer] Address [address] [place] [address] [address] [place] [address] Care Team Providers Care Stick Puller Name Role Phone Mychal Fields MD Primary Care Provide r Hima Fam Unavailable Unavailable Yaneth Dotson RN Unavailable Mckenzie Silverio Unavailable Encounter Details Date Type Department Care Team (Late st Contact Info) Description 12/05/2022 Orders Only [facility] [address], [place] [phone] Veda Isabel LPN Social History Tobacco Use [...] documented as of this encounter Care Teams Stick Puller Relationship Specialty Start Date End Date Mychal Fields MD [address] [place], [place] [phone] PCP - General Internal Medicine 04/30/14 Hima Fam FNP [address] [place] [address] Nurse Practitioner Family Medicine 08/01/23 Yaneth Dotson RN [address] [place] [address] Registered Nurse Family Medicine 02/24/25 Mckenzie Silverio 02/24/25 [employer] 02/13/25 03/29/25 documented as of this encounter
--- OUTSIDE RECORDS SUMMARY | 2025-04-20 12:36 | XMS_ITS | Clinical Summary ---
Author Organization [facility] 299 [facility] Address [address] [place] [address] Phone Care Team Providers Care Prime Broker Name Role Phone Mychal Long MD Primary [...] her lung cancer screening program here at [facility] with her LDCT due December 2025. Patient may follow-up with us here in thoracic surgery on an as-needed basis going forward. Resolved Problems Problem Noted Date Diagnosed Date Resolved Date Mediastinal mass 01/26/2025 02/26/2025 Mediastinal lymphadenopathy 01/26/2025 02/26/2025 Encounters Date Type Department Care Team Description 03/25/2025 Telephone Pulmonology - [place] [address] [phone] Kylie Simons MA 03/24/2025 5:49 PM EDT - 03/24/2025 11:59 PM EDT Hospital Encounter [facility] Xray [address] [place] [address] Bilateral pleural effusion Discharge Disposition: Home or Self Care 03/24/2025 4:00 PM EDT Office Visit Pulmonology - [place] 299 [facility] [address] [place] [phone] Rosy Rhodes MD Bilateral pleural effusion (Primary Dx); Thymic cyst (CMS/HCC V24) 03/02/2025 2:45 PM EDT - 03/02/2025 11:59 PM EDT Hospital Encounter [facility] Ultrasound [address] [place] [address] Pain in both lower extremities Discharge Disposition: Home or Self Care 02/26/2025 10:15 AM EDT Office Visit Thoracic Surgery - [place] [address] [address] Silvia Romeo PA Thymic cyst (CMS/HCC V24) (Primary Dx); Pain in both lower extremities; Tobacco abuse 02/26/2025 10:08 AM EDT - 02/26/2025 11:59 PM EDT Hospital Encounter [facility] Xray [address] [place] [address] Mediastinal mass Discharge Disposition: Home or Self Care 02/26/2025 Telephone Thoracic Surgery - [place] [address] [phone] Teodora Walker MA 02/13/2025 Telephone Thoracic Surgery - [place] [address] [phone] Marlena Morris RN 02/11/2025 8:30 AM EDT - 02/11/2025 12:30 PM EDT Surgery [facility] Main OR [address] [place] [address] Bessy Kern MD DaVinci thymectomy 02/11/2025 8:29 AM EDT Anesthesia Event [facility] Main OR [address] [place] [address] Amrita Soto MD Elliott, Barbara J, [employer] 02/11/2025 7:18 AM EDT - 02/12/2025 12:23 PM EDT Hospital Encounter [facility] Intermediate Care Unit B [address] [place] [address] Bessy Kern MD Bell, Alistair A, MD Mediastinal mass; Mediastinal lymphadenopathy Discharge Disposition: Home-Health Care Sv 02/03/2025 Telephone Thoracic Surgery - [address] [phone] Marlena Morris RN 01/27/2025 Telephone Thoracic Surgery [address] [phone] Angelika Chang MA Procedure (Preop, Surgery, PostOp) 01/26/2025 1:45 PM EDT Consult Thoracic Surgery - [address] [phone] Bessy Kern MD Mediastinal mass (Primary Dx); [...] 3:00 PM EDT Office Visit Pulmonology - [address] [phone] Rosy Rhodes MD [address] [place] [phone] Health Maintenance Due Date Last Done Comments [...] Procedure Name Priority Date/Time Associated Diagnosis Comments AR THORACENTESIS PLEURAL SPACE NEEDLE/CATH ASPIRATION W IMAGING [...] lymphadenopathy from Last 3 Months Results * AR THORACENTESIS PLEURAL SPACE NEEDLE/CATH ASPIRATION W IMAGING [...] infection and pneumothorax Alternatives discussed: No treatment [place] protocol: Procedure explained and questions answered to [...] midscapular line Intercostal space: 8th Puncture method: Rzhh-ggn-lflyhf catheter Ultrasound guidance: yes Indwelling catheter placed: [...] since the prior study performed 02/26/2025. Code 71731 -------- FINAL REPORT -------- Dictated By: Adán Cerna Dictated Date: 03/25/2025 07:32 ET Assigned Physician: Adán Cerna Reviewed and Electronically Signed By: Adán Cerna Signed Date: 03/25/2025 07:34 ET Workstation ID: [id number] Transcribed By: Self Edit Transcribed Date: 03/25/2025 [...] resolved since the prior study performed02/26/2025. Code 89338 -------- FINAL REPORT -------- Dictated By: Adán Cerna Dictated Date: 03/25/2025 07:32 ET Assigned Physician: Adán Cerna Reviewed and Electronically Signed By: Adán Cerna Signed Date: 03/25/2025 07:34 ET Workstation ID: [id number] Transcribed By: Self Edit Transcribed Date: 03/25/2025 07:32 ET us Rosy Rhodes MD IMG XR PROCEDURES Final Re sult * Cell count with reflex differential, body fluid (03/24/2025 5:33 PM EDT) Body Fluid Total Nucleated Cells 5,692 /mm3 LAB HEMETOLOGY METHOD 03/24/2025 8:21 PM EDT [facility] Body Fluid RBC 3,000 /mm3 LAB HEMETOLOGY METHOD 03/24/2025 8:21 PM EDT [facility] Body Fluid Color Yellow 03/24/2025 8:21 PM EDT [facility] Body Fluid Clarity Cloudy 03/24/2025 8:21 PM EDT [facility] Body Fluid Source Pleural 03/24/2025 8:21 PM EDT [facility] Pleural Fluid Structure of right pleural cavity / Unknown Non-blood Collection / Unknown 03/24/2025 5:33 PM EDT 03/24/2025 5:45 PM EDT Narrative [facility] - 03/24/2025 8:21 PM EDT No reference ranges have been established for body fluids. Clinical correlation recommended. Rosy Rhodes MD LAB BODY FLUIDS AND STOOLS ORDERABLES Edited Result - Final [facility] [address] [place] [address], [place] [phone] * Culture body fluid with gram stain (03/24/2025 5:33 PM EDT) Fluid Culture No growth at 2 days LAB MICROBIOLOGY METHOD 03/30/2025 11:53 AM EDT [facility] Gram Stain Result No polymorphonuclear leukocytes, No epithelial cells, and No organisms noted 03/30/2025 11:53 AM EDT [facility] Pleural Fluid Structure of right pleural cavity / Unknown Non-blood Collection / Unknown 03/24/2025 5:33 PM EDT 03/24/2025 5:45 PM EDT Rosy Rhodes MD LAB MICROBIOLOGY - GENERAL ORDERABLES Final Result Performing Organization Address [facility]/ZIP Co de Phone Number [facility] [address] [place] [address], [place] [phone] * Differential body fluid (03/24/2025 5:33 PM EDT) Fluid Neutrophils % 5 % 03/24/2025 8:10 PM EDT [facility] Fluid Lymphocytes % 49 % 03/24/2025 8:10 PM EDT [facility] Fluid Monocytes/Macrop hages 11 % 03/24/2025 8:10 PM EDT [facility] Fluid Eosinophils % 35 % 03/24/2025 8:10 PM EDT [facility] Fluid Basophils % 0 % 03/24/2025 8:10 PM EDT [facility] Fluid Other Cells % 0 % 03/24/2025 8:10 PM EDT [facility] Pleural Fluid Structure of right pleural cavity / Unknown Non-blood Collection / Unknown 03/24/2025 5:33 PM EDT 03/24/2025 5:45 PM EDT Narrative [facility] - 03/24/2025 8:10 PM EDT No reference ranges have been established for body fluids. Clinical correlation recommended. Rosy Rhodes MD LAB BODY FLUIDS AND STOOLS ORDERABLES Final Result [facility] [address] [place] [address], [place] [phone] * Pathology review, body fluid (03/24/2025 5:33 PM EDT) Pathologist review Body Fluid Cytocentrifuge prep: -Negative for malignancy JS 03/25/2025 8:49 [facility] Pleural Fluid Structure of right pleural cavity / Unknown Non-blood Collection / Unknown 03/24/2025 5:33 PM EDT 03/24/2025 5:45 PM EDT us Rosy Rhodes MD LAB BODY FLUIDS AND STOOLS ORDERABLES Final Result Performing Organization Address [facility] de Phone Number [facility] [address] [place] [address], [place] [phone] * Triglycerides, body fluid (03/24/2025 5:33 PM EDT) Triglycerides , Fluid 36 See Comment mg/dL LAB CHEMISTRY METHOD 03/25/2025 12:15 PM EDT [facility] Pleural Fluid Structure of right pleural cavity / Unknown Non-blood Collection / Unknown 03/24/2025 5:33 PM EDT 03/24/2025 5:45 PM EDT [facility] - 03/25/2025 12:15 PM EDT No reference ranges have been established for body fluids. Clinical correlation recommended. us Rosy Rhodes MD LAB BODY FLUIDS AND STOOLS ORDERABLES Final Result Performing Organization Address [facility] de Phone Number [facility] [address] [place] [address], [place] [phone] * Protein, body fluid (03/24/2025 5:33 PM EDT) Protein, Fluid 5.4 See Comment g/dL LAB CHEMISTRY METHOD 03/24/2025 6:52 PM EDT [facility] Pleural Fluid Structure of right pleural cavity / Unknown Non-blood Collection / Unknown 03/24/2025 5:33 PM EDT 03/24/2025 5:45 PM EDT [facility] - 03/24/2025 6:52 PM EDT No reference ranges have been established for body fluids. Clinical correlation recommended. us Rosy Rhodes MD LAB BODY FLUIDS AND STOOLS ORDERABLES Final Result Performing Organization Address [facility] Co de Phone Number [facility] [address] [place] [address], [place] [phone] * Lactate dehydrogenase, body fluid (03/24/2025 5:33 PM EDT) LD, Fluid 799 See Comment unit/L LAB CHEMISTRY METHOD 03/24/2025 6:52 PM EDT [facility] Pleural Fluid Structure of right pleural cavity / Unknown Non-blood Collection / Unknown 03/24/2025 5:33 PM EDT 03/24/2025 5:45 PM EDT Narrative [facility] - 03/24/2025 6:52 PM EDT No reference ranges have been established for body fluids. Clinical correlation recommended. us Rosy Rhodes MD LAB BODY FLUIDS AND STOOLS ORDERABLES Final Result Performing Organization Address [facility] Co de Phone Number [facility] [address] [place] [address], [place] [phone] * Glucose, body fluid (03/24/2025 5:33 PM EDT) Glucose, Fluid 125 See Comment mg/dL LAB CHEMISTRY METHOD 03/24/2025 7:28 PM EDT [facility] Pleural Fluid Structure of right pleural cavity / Unknown Non-blood Collection / Unknown 03/24/2025 5:33 PM EDT 03/24/2025 5:45 PM EDT [facility] - 03/24/2025 7:28 PM EDT No reference ranges have been established for body fluids. Clinical correlation recommended. us Rosy Rhodes MD LAB BODY FLUIDS AND STOOLS ORDERABLES Final Result Performing Organization Address City/[facility]/ZIP Co de Phone Number [facility] [address] [place] [address], * Non-gynecologic cytology (03/24/2025 5:33 PM EDT) Final Diagnosis A. Pleural Fluid, Right, Thoracentesis, (ThinPrep, cell block): Negative for malignancy 03/26/2025 8:41 AM EDT [facility] Specimen A Adequacy Satisfactory for evaluation 03/26/2025 8:41 AM EDT [facility] Gross Description A. Pleural Cavity, Right, Pleural fluid: Received 600 ml of jimenez fluid; 1 ThinPrep, 1 Cell block Cell block in formalin @10:30, total formalin fixation time 10.5 hours. 03/26/2025 8:41 AM EDT [facility] Disclaimer Unless otherwise specified, all tissue is 10% NB formalin fixed and paraffin embedded. Technical cytopathology services provided by [facility], at [address] [place] [id number] (CLIA # [id number]/Jose Paula MD, Telephone Sales Representative.) 03/26/2025 8:41 AM EDT [facility] Pleural Fluid Structure of right pleural cavity / Unknown Non-blood Collection / Unknown 03/24/2025 5:33 PM EDT 03/25/2025 9:54 AM EDT us Rosy Rhodes MD LAB CYTOLOGY ORDERABLES Fi nal Result Performing Organization Address City/[facility]/ZIP Co de Phone Number [facility] [address] [place] [address], * External CT Report (03/17/2025) Anatomical Region [...] Signed Date: 03/02/2025 15:18 ET Workstation ID: [id number] Transcribed By: Self Edit Transcribed Date: 03/02/2025 [...] Signed Date: 03/02/2025 15:18 ET Workstation ID: [id number] Transcribed By: Self Edit Transcribed Date: 03/02/2025 15:17 ET Silvia RED CV VASCULAR PROCEDURES Final Result * (ABNORMAL) CBC - Every 3 Days (02/12/2025 6:18 AM EDT) WBC 16.2(H) 4.8 - 10.8 K/mcL LAB HEMETOLOGY METHOD 02/12/2025 7:11 AM EDT [facility] RBC 3.80 3.80 - 4.80 M/mcL LAB HEMETOLOGY METHOD 02/12/2025 7:11 AM [facility] Hemoglobin 11.4(L) 11.5 - 16.0 g/dL LAB HEMETOLOGY METHOD 02/12/2025 7:11 AM [facility] Hematocrit 34.5(L) 35.0 - 47.0 % LAB HEMETOLOGY METHOD 02/12/2025 7:11 AM [facility] MCV 90.3 79.0 - 98.0 FL LAB HEMETOLOGY METHOD 02/12/2025 7:11 AM [facility] MCH 29.8 27.0 - 32.0 pcg LAB HEMETOLOGY METHOD 02/12/2025 7:11 AM [facility] MCHC 33.0 32.0 - 37.0 g/dL LAB HEMETOLOGY METHOD 02/12/2025 7:11 AM [facility] RDW 13.1 11.0 - 15.0 % LAB HEMETOLOGY METHOD 02/12/2025 7:11 AM [facility] Platelets 292 130 - 400 K/mcL LAB HEMETOLOGY METHOD 02/12/2025 7:11 AM [facility] MPV 9.9 7.0 - 11.0 FL LAB HEMETOLOGY METHOD 02/12/2025 7:11 AM EDT [facility] NRBC 0.0 <1.0 % LAB HEMETOLOGY METHOD 02/12/2025 7:11 AM EDT [facility] NRBC Absolute 0.00 <0.10 K/mcL LAB HEMETOLOGY METHOD 02/12/2025 7:11 AM EDT [facility] Blood Venous blood specimen / Unknown Venipuncture / Unknown 02/12/2025 6:18 AM EDT 02/12/2025 6:42 AM EDT Silvia RED LAB BLOOD ORDERABLES Final Re sult Performing Organization Address City/[facility]/ZIP Co de Phone Number [facility] [address] [place] [address], [place] [phone] * Phosphorus (02/12/2025 6:18 AM EDT) Phosphorus 3.2 2.5 - 4.5 mg/dL LAB CHEMISTRY METHOD 02/12/2025 7:23 AM EDT [facility] Blood Venous blood specimen / Unknown Venipuncture / Unknown 02/12/2025 6:18 AM EDT 02/12/2025 6:42 AM EDT Silvia RED LAB BLOOD ORDERABLES Final Re sult [facility] [address] [place] [address], [place] [phone] * Magnesium (02/12/2025 6:18 AM EDT) Magnesium 1.9 1.9 - 2.6 mg/dL LAB CHEMISTRY METHOD 02/12/2025 7:23 AM EDT [facility] Blood Venous blood specimen / Unknown Venipuncture / Unknown 02/12/2025 6:18 AM EDT 02/12/2025 6:42 AM EDT us Silvia RED LAB BLOOD ORDERABLES Final Re sult [facility] [address] [place] [address], [place] [phone] * (ABNORMAL) Basic metabolic panel (02/12/2025 6:18 AM EDT) Only the most recent of2 resultswithin the time period is included. Sodium 138 133 - 145 mmol/L LAB CHEMISTRY METHOD 02/12/2025 7:23 AM [facility] Potassium 4.3 3.5 - 5.5 mmol/L LAB CHEMISTRY METHOD 02/12/2025 7:23 AM [facility] Chloride 107 96 - 110 mmol/L LAB CHEMISTRY METHOD 02/12/2025 7:23 AM [facility] CO2 27 21 - 32 mmol/L LAB CHEMISTRY METHOD 02/12/2025 7:23 AM [facility] Anion Gap 4 3 - 11 LAB CHEMISTRY METHOD 02/12/2025 7:23 AM [facility] Glucose 148(H) 70 - 100 mg/dL LAB CHEMISTRY METHOD 02/12/2025 7:23 AM [facility] BUN 15 5 - 25 mg/dL LAB CHEMISTRY METHOD 02/12/2025 7:23 AM [facility] Creatinine 0.98 0.50 - 1.10 mg/dL LAB CHEMISTRY METHOD 02/12/2025 7:23 AM [facility] eGFR 69 >=60 mL/min/1. 73m2 LAB CHEMISTRY METHOD 02/12/2025 7:23 AM [facility] Comment:Calculation based on the Chronic Kidney Disease Epidemiology Collaboration (CKD-EPI) equation refit without adjustment for race. BUN/Creatinine Ratio 15.3 LAB CHEMISTRY METHOD 02/12/2025 7:23 AM EDT [facility] Calcium 8.9 8.5 - 10.5 mg/dL LAB CHEMISTRY METHOD 02/12/2025 7:23 AM EDT [facility] Blood Venous blood specimen / Unknown Venipuncture / Unknown 02/12/2025 6:18 AM EDT 02/12/2025 6:42 AM EDT us Silvia RED LAB BLOOD ORDERABLES Final Re sult [facility] [address] [place] [address], [place] [phone] * XR Chest 1 View (02/12/2025 5:45 [...] Signed Date: 02/12/2025 08:29 ET Workstation ID: [id number] Transcribed By: Self Edit Transcribed Date: 02/12/2025 [...] Signed Date: 02/12/2025 08:29 ET Workstation ID: [id number] Transcribed By: Self Edit Transcribed Date: 02/12/2025 08:28 ET Silvia RED IMG XR PROCEDURES Final Resul t * Tissue exam (02/11/2025 9:42 AM EDT) Final Diagnosis A. Sternum, Xiphoid: -BENIGN CARTILAGE, CONSISTENT WITH STERNUM/XIPHOID B. Thymus-thymectom y: -SIMPLE (BENIGN) THYMIC CYSTS (2) 02/13/2025 12:57 PM EDT [facility] Gross Description A. Sternum, [...] Inking code: Blue-inferior Green-anterior Yellow-right Black-posterior Red-superior [place]-left Plate Glass Installer sections are submitted as follows: 1-4, complete [...] piece each [place] 02/13/2025 12:57 PM EDT [facility] Disclaimer Unless otherwise specified, all tissue is 10% NB formalin fixed and paraffin embedded. 02/13/2025 12:57 PM EDT [facility] Bone Bone structure of sternum / Unknown 02/11/2025 9:42 AM EDT 02/11/2025 1:05 PM EDT Tissue specimen (specimen) Thymus gland structure / Unknown 02/11/2025 11:59 AM EDT 02/11/2025 12:20 PM EDT us Bessy Kern MD LAB PATHOLOGY ORDERABLES Final R esult [facility]) [facility] [address] [place] [address], * TH AN ARTERIAL LINE (CHARGE) (02/11/2025 [...] to verify the correct patient, procedure, equipment, sales support associate and site/side marked as required. Preparation: Patient [...] and Staff Patient location during procedure: [place] Resident/[employer]: Chuy Dickson CRNA Performed: resident/[employer]/CAA Performed by: Chuy Dickson CRNA Authorized by: [...] Units (02/11/2025 8:51 AM EDT) Product Code [id number] 02/12/2025 6:52 AM EDT [facility] Unit Number [id number] 02/13/20 6:52 AM EDT [facility] Crossmatch Compatible 02/11/2025 9:07 AM EDT [facility] Dispense Status Released From Crossmatch 02/12/2025 6:52 AM [facility] Unit ABO Rh OPOS 02/12/2025 6:52 AM [facility] Unit Expiration Date Time [id number] 02/12/2025 6:52 AM [facility] Unit Blood Type 5100 02/12/2025 6:52 AM EDT [facility] Product Code [id number] 02/12/2025 6:52 AM EDT [facility] Unit Number [id number] 02/13/20 6:52 AM EDT [facility] Crossmatch Compatible 02/11/2025 9:09 AM EDT [facility] Dispense Status Released From Crossmatch 02/12/2025 6:52 AM EDT [facility] Unit ABO Rh OPOS 02/12/2025 6:52 AM EDT [facility] Unit Expiration Date Time [id number] 02/12/2025 6:52 AM EDT [facility] Unit Blood Type 5100 02/12/2025 6:52 AM EDT [facility] Blood Venous blood specimen / Unknown 02/11/2025 8:51 AM EDT 02/03/2025 2:31 PM EDT Silvia RED BLOOD BANK PRODUCT ORDERABLES Final Result [facility] [address] [place] [address], * ECG 12 lead - Procedural (No Charge) (02/03/2025 2:13 PM EDT) Ventricular Rate ECG 82 BPM GEMUSE Atrial Rate 82 BPM GEMUSE P-R Interval 132 ms GEMUSE QRS Duration 72 ms GEMUSE Q-T Interval 366 ms GEMUSE QTc 427 ms GEMUSE P Wave [place] 49 degrees GEMUSE R [place] 10 degrees GEMUSE T [place] -2 degrees GEMUSE ECG Interpretation Normal sinus [...] LAB HEMETOLOGY METHOD 02/03/2025 2:42 PM EDT [facility] RBC 4.00 3.80 - 4.80 M/mcL LAB HEMETOLOGY METHOD 02/03/2025 2:42 PM EDT [facility] Hemoglobin 11.9 11.5 - 16.0 g/dL LAB HEMETOLOGY METHOD 02/03/2025 2:42 PM EDT [facility] Hematocrit 35.9 35.0 - 47.0 % LAB HEMETOLOGY METHOD 02/03/2025 2:42 PM EDT [facility] MCV 89.8 79.0 - 98.0 FL LAB HEMETOLOGY METHOD 02/03/2025 2:42 PM EDT [facility] MCH 29.8 27.0 - 32.0 pcg LAB HEMETOLOGY METHOD 02/03/2025 2:42 PM EDT [facility] MCHC 33.1 32.0 - 37.0 g/dL LAB HEMETOLOGY METHOD 02/03/2025 2:42 PM EDT [facility] RDW 12.6 11.0 - 15.0 % LAB HEMETOLOGY METHOD 02/03/2025 2:42 PM EDT [facility] Platelets 242 130 - 400 K/mcL LAB HEMETOLOGY METHOD 02/03/2025 2:42 PM EDT [facility] MPV 9.8 7.0 - 11.0 FL LAB HEMETOLOGY METHOD 02/03/2025 2:[facility] NRBC 0.0 <1.0 % LAB HEMETOLOGY METHOD 02/03/2025 2:42 PM [facility] NRBC Absolute 0.00 <0.10 K/mcL LAB HEMETOLOGY METHOD 02/03/2025 2:42 PM [facility] Neutrophils Relative 54.4 % LAB HEMETOLOGY METHOD 02/03/2025 2:42 PM [facility] Lymphocytes Relative 37.8 % LAB HEMETOLOGY METHOD 02/03/2025 2:42 PM [facility] Monocytes Relative 5.3 % LAB HEMETOLOGY METHOD 02/03/2025 2:42 PM [facility] Eosinophils Relative 1.7 % LAB HEMETOLOGY METHOD 02/03/2025 2:42 PM [facility] Basophils Relative 0.5 % LAB HEMETOLOGY METHOD 02/03/2025 2:42 PM [facility] Immature Granulocytes Relative 0.3 % LAB HEMETOLOGY METHOD 02/03/2025 2:42 PM [facility] Neutrophils Absolute 4.12 1.50 - 7.00 K/mcL LAB HEMETOLOGY METHOD 02/03/2025 2:42 PM [facility] Lymphocytes Absolute 2.86 1.00 - 5.00 K/mcL LAB HEMETOLOGY METHOD 02/03/2025 2:42 PM EDT [facility] Monocytes Absolute 0.40 0.20 - 1.00 K/mcL LAB HEMETOLOGY METHOD 02/03/2025 2:42 PM [facility] Eosinophils Absolute 0.13 0.00 - 0.50 K/mcL LAB HEMETOLOGY METHOD 02/03/2025 2:42 PM [facility] Basophils Absolute 0.04 0.00 - 0.20 K/mcL LAB HEMETOLOGY METHOD 02/03/2025 2:42 PM EDT [facility] Immature Granulocytes Absolute 0.02 0.00 - 0.03 K/mcL LAB HEMETOLOGY METHOD 02/03/2025 2:42 PM EDT [facility] Blood Venous blood specimen / Unknown Venipuncture / Unknown 02/03/2025 2:03 PM EDT 02/03/2025 2:32 PM EDT us Bessy Kern MD LAB BLOOD ORDERABLES Final Resul t Performing Organization Address [facility]/ZIP Co de Phone Number [facility] [address] [place] [address], [place] [phone] * Activated partial thromboplastin time (02/03/2025 2:03 PM EDT) aPTT 33.5 24.1 - 39.3 sec LAB COAGULATION METHOD 02/03/2025 3:14 PM EDT [facility] Blood Venous blood specimen / Unknown Venipuncture / Unknown 02/03/2025 2:03 PM EDT 02/03/2025 2:32 PM EDT us Bessy Kern MD LAB BLOOD ORDERABLES Final Resul t Performing Organization Address [facility]/ZIP Co de Phone Number [facility] [address] [place] [address], [place] [phone] * Prothrombin time with INR (02/03/2025 2:03 PM EDT) Protime 11.4 10.6 - 13.9 sec LAB COAGULATION METHOD 02/03/2025 3:14 PM EDT [facility] INR 0.9 LAB COAGULATION METHOD 02/03/2025 3:14 PM EDT [facility] Blood Venous blood specimen / Unknown Venipuncture / Unknown 02/03/2025 2:03 PM EDT 02/03/2025 2:32 PM EDT Bessy Kern MD LAB BLOOD ORDERABLES Final Resul t Performing Organization Address [facility]/ZIP Co de Phone Number [facility] [address] [place] [address], [place] [phone] * Type and screen (02/03/2025 2:03 PM EDT) ABO Group O 02/06/2025 9:01 AM EDT [facility] Rh Type Positive 02/06/2025 9:01 AM EDT [facility] Antibody Screen Negative 02/06/2025 9:01 AM EDT [facility] Blood Venous blood specimen / Unknown Venipuncture / Unknown 02/03/2025 2:03 PM EDT 02/03/2025 2:31 PM EDT Bessy Kern MD LAB BLOOD BANK TEST ORDERABLES F inal Result Performing Organization Address [facility]/ZIP Co de Phone Number [facility] [address] [place] [address], [place] [phone] from Last 3 Months Insurance MEDICAID - [...] currently active code status orders. Care Teams Prime Broker Relationship Specialty Start Date End Date Mychal Long MD [address] [place] [address] [place] [address] PCP - General 12/26/11
--- NOTE | 2025-04-20 12:48 | MHC.OFFVIS ---
Vital Signs 04/20/25 13:07 Height 5 ft 3 in Weight 207 lb 3.752 oz BMI 36.7 BP 128/72 Blood Pressure Location Rt brachial Position Sitting Pulse 94 Pulse Source Pulse Oximeter Pulse Oximetry (%) 95 Oxygen Delivery Method Room Air Intake Visit Reasons: Pulmonary Nodule Allergies metronidazole Allergy (Severe, Verified 04/20/25 13:10) vomiting Penicillins Allergy (Mild, Verified 04/20/25 13:10) VAGINAL FUNGUS INFECTION lisinopril (LISINOPRIL) Allergy (Unknown, Verified 04/20/25 13:10) COUGH verapamil Allergy (Unknown, Verified 04/20/25 13:10) unknown amoxicillin Adverse Reaction (Verified 04/20/25 13:10) Unknown HPI HPI Pulmonary Nodule: Details: Elaine is a pleasant 54 year old female, current 30 pack year smoker, with underlying asthma, JERRI on CPAP managed through [facility], HTN and depression. Chest CT performed in June 2024 revealed stable anterior mediastinal lymphadenopathy/mass measuring 3.1 cm in the largest dimension and pulmonary nodules <2mm, compared to CT chest 12/2024 revealed a few enlarged and prominent mediastinal lymph nodes, prevascular lymph node measuring 3.3 x 1.6 cm and referred to Dr. Kern for further evaluation. She ultimately underwent thymectomy on 02/11/25, pathology reportedly benign. Unfortunately, she proceeded with previously ordered chest CT performed on 03/17/25 which noted moderate bilateral effusions and patient reported overall feeling unwell with associated dry cough, no change in dyspnea. BNP 11, prior echo 2020 unremarkable. Since the last visit, she underwent thoracentesis on 03/27 reportedly 400 cc of bright yellow pleural fluid with IP from [facility] and since has had more notable dyspnea and intermittent chest discomfort. Denies cough, hemoptysis, wheezing or BLE edema but does note posterior left leg pain which developed after thymectomy. She reportedly underwent US to rule out DVT and was negative. Awaiting final pathology from thoracentesis however notes she will undergo left sided thoracentesis on 05/01. [facility] Medical History Cataract, right eye Bilateral primary osteoarthritis of knee Gallstone pancreatitis Palpitations Fibromyalgia Depression Glaucoma HTN (hypertension) Surgical History H/O colonoscopy History of tubal ligation Hx of carpal tunnel repair Hx of cholecystectomy Hx of knee surgery Family History Father Kidney disease Mother CVD (cardiovascular disease) Colon cancer Social History Alcohol intake: never Patient Tobacco Use Status: Current everyday Tobacco user Cigarette Packs Per Day: 0.5 Cigarettes Per Day: 10 Years Smoked: 30 Female Reproductive History Menstrual Age of Menarche: 9 Review of Systems Const Denies chills, Denies excessive sweating, Denies fever(s), Denies headache(s) and Denies night sweats Eyes Denies dry eyes, Denies irritation and Denies itchy eyes ENT Reports Normal hearing present and Denies headache(s) Card Denies claudication, Denies leg edema, Reports dyspnea on exertion, Denies orthopnea and Denies paroxysmal nocturnal dyspnea Resp Denies chest congestion, Denies cough, Denies hemoptysis, Denies excessive phlegm production, Denies pain on inspiration, Denies pain with cough, Reports dyspnea on exertion, Denies stridor and Denies wheezing Musc Denies myalgias Neuro Reports Normal hearing present and Denies headache(s) Endo Denies excessive sweating Jhonathan/Lymph Denies lymphadenopathy Aller/Immun Denies itchy eyes, Denies seasonal rhinorrhea and Denies wheezing Physical Exam Vital Signs: Last Vital Signs Pulse 94 04/20/25 13:07 BP 128/72 04/20/25 13:07 Pulse Ox 95 04/20/25 13:07 Oxygen Delivery Method Room Air 04/20/25 13:07 BMI result Body Mass Index 36.7 Const General: cooperative, healthy appearing, comfortable, no acute distress, well developed and alert Orientation/consciousness: patient oriented x3 Limitations: no limitations HEENT Head: Yes normal to inspection, Yes normocephalic and Yes atraumatic Ears: hearing grossly normal bilaterally and external ears normal Eyes General: appearance normal, both eyes and all related structures Eyelids: Yes eyelids normal Sclerae: sclerae normal EOM: EOMs intact bilaterally Neck Neck: Yes normal visual inspection and Yes no lymphadenopathy Lymphatic: no lymphadenopathy noted Chest Chest palpation & inspection: normal inspection of the chest Resp Effort & Inspection: normal respiratory effort, able to speak in complete sentences, no audible wheezes, no cough, no stridor, not tachypneic, no tripod positioning and no use of accessory muscles Auscultation: diminished lung sounds Cardio Jugular venous distension: no JVD Rate: regular rate Rhythm: regular rhythm Skin Other: warm, dry General skin exam: no rashes or lesions noted Neuro General: patient oriented x3 Cranial nerves: Yes Normal hearing present Cognition (Neuro): normal cognition Gait exam (Neuro): Normal gait present Extrem General: Yes normal to inspection, Yes capillary refill normal, Yes no clubbing, cyanosis or edema and Yes no pedal edema Psych Appearance: grossly normal and well kempt Speech and movement: Normal speech and movement present and Clear speech present Affect: normal affect Attitude: cooperative Thought process: Normal thought process present Thought content: Normal thought content present Insight: Good insight present (Psych) Judgement: Good judgement present (Psych) Assessment & Plan Assessment & Plan (1) Pleural effusion: Code(s): J90 - Pleural effusion, not elsewhere classified Category: Medical (2) Asthma: Code(s): J45.909 - Unspecified asthma, uncomplicated Category: Medical (3) Mediastinal lymphadenopathy: Code(s): R59.0 - Localized enlarged lymph nodes Category: Medical (4) Nicotine dependence: Code(s): F17.200 - Nicotine dependence, unspecified, uncomplicated Category: Medical (5) Dyspnea: Code(s): R06.00 - Dyspnea, unspecified Category: Medical Plan Will send for CTA to rule out PE given worsening dyspnea since thoracentesis and intermittent chest discomfort. VSS and patient not in respiratory distress at this time. Signs and symptoms discussed which would warrant emergent evaluation. If negative, will switch Breo to Trelegy. Will obtain pathology from [facility] for right sided thoracentesis. Smoking cessation reviewed and patient developed palpitations while using nicotine patch, will trial lozenges PRN. All questions were answered and patient is in agreement of plan. Will follow up in 6-8 weeks or sooner if needed. Orders: Orders CT angio chest PE protocol Today R06.00 - Dyspnea, unspecified, R07.89 - Other chest pain Medications: New nicotine (polacrilex) 2 mg buccal Q8H PRN 108 ea 0RF nicotine cravings Coding Level of Care Code Est Pt Level 4 (34180) Complex EM visit Add On G2211 Diagnoses Pleural effusion J90 Asthma J45.909 Mediastinal lymphadenopathy R59.0 Nicotine dependence F17.200 Dyspnea R06.00
[2025-04-20 13:07] VITALS: BP 128/72; PULSE 94; O2SAT 95; BMI 36.7
== END 2025-04-20 13:41 | disposition home or self-care (01) ==
LOC: HO.HPS 12:31
PROVIDERS: PCP Internal Medicine; Visit Provider Nurse Practitioner Family
DX: J90 Pleural effusion, not elsewhere classified (principal); J45.909 Unspecified asthma, uncomplicated; R59.0 Localized enlarged lymph nodes; F17.200 Nicotine dependence, unspecified, uncomplicated; R06.00 Dyspnea, unspecified
CPT/HCPCS: 99214

== ENCOUNTER → 2025-04-20 12:29 | Outpatient (BNVA) | payer MEDICAID, SELFPAY | PROVIDERS: PCP Internal Medicine; Visit Provider Nurse Practitioner Family | DX: R59.0 Localized enlarged lymph nodes (principal); J90 Pleural effusion, not elsewhere classified; J45.909 Unspecified asthma, uncomplicated; F17.200 Nicotine dependence, unspecified, uncomplicated; R06.00 Dyspnea, unspecified | CPT/HCPCS: 99212 ==

== ENCOUNTER → 2025-04-22 13:31 | Outpatient (REF) | payer MEDICAID, SELFPAY ==
--- NOTE | 2025-04-22 13:33 | CA_ITS ---
Transthoracic Echocardiogram Patient (Last, First, Middle): Elaine Rodas, Gender: Female Date of : 1970 Age: 54 Procedure Date: 04/22/2025 Procedure Type: Transthoracic Echocardiogram Location: OP Height: 160.02 cm Weight: 93.9 kg BSA: 1.96 m2 Heart Rate: 94 bpm BP: 131 / 61 mmHg Electric Switch Repairer: CRISTINE/SANJANA Referring MD: Amy Zimmerman NP College Coach: Aayush Roy MD Symptoms: R06.00 - Dyspnea, unspecified Study Quality: Adequate ECG Rhythm: Sinus Conclusions: - Essentially normal study Findings Left Ventricle Normal left ventricular size, thickness, and systolic function. The visually estimated ejection fraction is between 60-65%. Spectral Doppler is indicative of a normal filling pattern. Atria Both atria are normal in size. Interatrial shunt cannot be excluded. Aortic Valve Normal aortic valve structure and function. There is no aortic valve stenosis. There is no aortic valve regurgitation. Mitral Valve Normal mitral valve structure and function. There is trace mitral valve regurgitation. There is no mitral valve stenosis. Pulmonic Valve The pulmonic valve is likely normal. Tricuspid Valve Normal tricuspid valve structure. There is trace tricuspid valve regurgitation. The right ventricular systolic pressure is normal. Normal right atrial pressure. There is no evidence of pulmonary hypertension. Great Vessels All visible segments of the aorta are normal in size. The pulmonary artery was not well visualized. Venous The inferior vena cava is normal in size and collapses greater than 50% with inspiration. Pericardium/Pleural There is no evidence of pericardial effusion. Prior Study Comparison No significant change compared to prior study dated: 07/29/2021. Measurements 2D Linear Measurements IVSd: 0.80 0.6-0.9/0.6-1.0 cm LVIDd: 3.32 3.9-5.3/4.2-5.9 cm LVIDd Index: 1.69 2.4-3.2/2.2-3.1 cm/m2 LVIDs: 2.39 2.0-3.6 cm LVPWd: 0.85 0.7-1.1 cm LA Diam: 2.70 2.7-3.8/3.0-4.0 cm LAIDs Index: 1.38 1.5-2.3 cm/m2 LV Mass: 177.72 67-162/88-224 g LV Mass Index: 90.67 43-95/49-115 g/m2 LVOT Diam: 2.10 3.0+(-)1.3 cm 2D Systolic Function EF 4C: 65.20 >55% EF 2C: 66.80 >55% EF BiP: 65.90 >55% Mitral Valve MV Pk E: 0.88 MV PK A: 0.92 MV Decel Time: 241.00 E/A: 1.00 E'Lateral: 11.30 E'Medial: 7.40 E/E' Med: 11.80 E/E' Lat: 7.70 PHT: 71.00 MVA PHT: 3.10 Decel Navajo: 3.63 Aortic Valve AoV Pk John: 1.64 AoV Mn John: 1.13 AoV VTI: 0.28 AoV Pk Grad: 11.00 Aov Mn Grad: 6.00 WILLY Cont.VTI: 2.55 LVOT LVOT Pk John: 1.22 LVOT Mn John: 0.82 LVOT VTI: 0.21 LVOT Pk Grad: 6.00 LVOT Mn Grad: 3.00 LVOT Diam: 2.10 LVOT Area: 3.46 Diastolic Function MV Pk E: 0.88 MV Pk A: 0.92 E/A: 1.00 E'Medial: 7.40 E/E' Med: 11.80 E' Laterial: 11.30 E/E' Lat: 7.70 Right Ventricle TAPSE (mm): 30.00 TVS' John: 13.70 Tricuspid Valve RA Press: 3.00 Great Vessels Aorta Sinus of Valsalva: 2.80 2.0-3.5 cm Ao Asc: 2.90 2.1-3.4 cm Ao Arch: 3.00 Pulmonary Valve PV Pk John: 1.19 Peak PV Grad: 6.00 Updated in Other Vendor System with Status of Final Aayush Roy MD electronically signed on 04/23/2025 1:50:57 PM with status of Final
--- OUTSIDE RECORDS SUMMARY | 2025-04-22 13:56 | XMS_ITS | Encounter Summary ---
Author Organization [employer] Address [address] [place] [address] [address] [place] [address] Care Team Providers Care Electrical Software Engineer Name Role Phone Mychal Fields MD Primary Care Provide r Hima Fam Unavailable Unavailable Yaneth Dotson RN Unavailable [phone] Mckenzie Silverio Unavailable Encounter Details Date Type Department Care Team (Late st Contact Info) Description 12/05/[address] [facility] [address], [place] [phone] Veda Isabel LPN Social History Tobacco Use [...] documented as of this encounter Care Teams Electrical Software Engineer Relationship Specialty Start Date End Date Mychal Fields MD [address] [place], [place] [phone] PCP - General Internal Medicine 04/30/14 Hima Fam FNP [address] [place] [address] Nurse Practitioner Family Medicine 08/01/23 Yaneth Dotson RN [address] [place] [address] Registered Nurse Family Medicine 02/24/25 Mckenzie Silverio 02/24/25 [employer] 02/13/25 03/29/25 documented as of this encounter
--- OUTSIDE RECORDS SUMMARY | 2025-04-22 13:56 | XMS_ITS | Clinical Summary ---
Author Organization [facility] 299 [facility] Address [address] [place] [address] Phone Care Team Providers Care Manager Resort Name Role Phone Mychal Long MD Primary [...] her lung cancer screening program here at [facility] with her LDCT due December 2025. Patient may follow-up with us here in thoracic surgery on an as-needed basis going forward. Resolved Problems Problem Noted Date Diagnosed Date Resolved Date Mediastinal mass 01/26/2025 02/26/2025 Mediastinal lymphadenopathy 01/26/2025 02/26/2025 Encounters Date Type Department Care Team Description 03/25/2025 Telephone Pulmonology - [place] [address] [address] Kylie Simons [place] 03/24/2025 5:49 PM EDT - 03/24/2025 11:59 PM EDT Hospital Encounter [facility] Xray [address] [place] [address] Bilateral pleural effusion Discharge Disposition: Home or Self Care 03/24/2025 4:00 PM EDT Office Visit Pulmonology - [place] 299 [facility] [address] [place] [phone] Rosy Rhodes MD Bilateral pleural effusion (Primary Dx); Thymic cyst (CMS/HCC V24) 03/02/2025 2:45 PM EDT - 03/02/2025 11:59 PM EDT Hospital Encounter [facility] Ultrasound [address] [place] [address] Pain in both lower extremities Discharge Disposition: Home or Self Care 02/26/2025 10:15 AM EDT Office Visit Thoracic Surgery - [place] [address] [address] Silvia Romeo PA Thymic cyst (CMS/HCC V24) (Primary Dx); Pain in both lower extremities; Tobacco abuse 02/26/2025 10:08 AM EDT - 02/26/2025 11:59 PM EDT Hospital Encounter [facility] Xray [address] [place] [address] Mediastinal mass Discharge Disposition: Home or Self Care 02/26/2025 Telephone Thoracic Surgery - [place] [address] [address] Teodora Walker MA 02/13/2025 Telephone Thoracic Surgery - [place] [address] [address] Marlena Morris RN 02/11/2025 8:30 AM EDT - 02/11/2025 12:30 PM EDT Surgery [facility] Main OR [address] [place] [address] Bessy Kern MD DaVinci thymectomy 02/11/2025 8:29 AM EDT Anesthesia Event [facility] Main OR [address] [place] [address] Amrita Soto MD Elliott, Barbara J, PRODUCT DEVELOPMENT ACTUARY 02/11/2025 7:18 AM EDT - 02/12/2025 12:23 PM EDT Hospital Encounter [facility] Intermediate Care Unit B [address] [place] [address] Bessy Kern MD Bell, Alistair A, MD Mediastinal mass; Mediastinal lymphadenopathy Discharge Disposition: Home-Health Care Sv 02/03/2025 Telephone Thoracic Surgery - [address] [phone] Marlena Morris RN 01/27/2025 Telephone Thoracic Surgery [address] [phone] Angelika Chang MA Procedure (Preop, Surgery, PostOp) 01/26/2025 1:45 PM EDT Consult Thoracic Surgery - [address] [phone] Bessy Kern MD Mediastinal mass (Primary Dx); [...] 3:00 PM EDT Office Visit Pulmonology - [address] [address] Rosy Rhodes MD [address] [place] [address] Health Maintenance Due Date Last Done Comments [...] Procedure Name Priority Date/Time Associated Diagnosis Comments UT THORACENTESIS PLEURAL SPACE NEEDLE/CATH ASPIRATION W IMAGING [...] lymphadenopathy from Last 3 Months Results * UT THORACENTESIS PLEURAL SPACE NEEDLE/CATH ASPIRATION W IMAGING [...] infection and pneumothorax Alternatives discussed: No treatment [place] protocol: Procedure explained and questions answered to [...] midscapular line Intercostal space: 8th Puncture method: Jhzo-svj-gekdbn catheter Ultrasound guidance: yes Indwelling catheter placed: [...] since the prior study performed 02/26/2025. Code 07597 -------- FINAL REPORT -------- Dictated By: Adán Cerna Dictated Date: 03/25/2025 07:32 ET Assigned Physician: Adán Cerna Reviewed and Electronically Signed By: Adán Cerna Signed Date: 03/25/2025 07:34 ET Workstation ID: [id number] Transcribed By: Self Edit Transcribed Date: 03/25/2025 [...] resolved since the prior study performed02/26/2025. Code 31426 -------- FINAL REPORT -------- Dictated By: Adán Cerna Dictated Date: 03/25/2025 07:32 ET Assigned Physician: Adán Cerna Reviewed and Electronically Signed By: Adán Cerna Signed Date: 03/25/2025 07:34 ET Workstation ID: [id number] Transcribed By: Self Edit Transcribed Date: 03/25/2025 07:32 ET us Rosy Rhodes MD IMG XR PROCEDURES Final Re sult * Cell count with reflex differential, body fluid (03/24/2025 5:33 PM EDT) Body Fluid Total Nucleated Cells 5,692 /mm3 LAB HEMETOLOGY METHOD 03/24/2025 8:21 PM EDT [facility] Body Fluid RBC 3,000 /mm3 LAB HEMETOLOGY METHOD 03/24/2025 8:21 PM EDT [facility] Body Fluid Color Yellow 03/24/2025 8:21 PM EDT [facility] Body Fluid Clarity Cloudy 03/24/2025 8:21 PM EDT [facility] Body Fluid Source Pleural 03/24/2025 8:21 PM EDT [facility] Pleural Fluid Structure of right pleural cavity / Unknown Non-blood Collection / Unknown 03/24/2025 5:33 PM EDT 03/24/2025 5:45 PM EDT Narrative [facility] - 03/24/2025 8:21 PM EDT No reference ranges have been established for body fluids. Clinical correlation recommended. Rosy Rhodes MD LAB BODY FLUIDS AND STOOLS ORDERABLES Edited Result - Final [facility] [address] [place] [address], [place] [phone] * Culture body fluid with gram stain (03/24/2025 5:33 PM EDT) Fluid Culture No growth at 2 days LAB MICROBIOLOGY METHOD 03/30/2025 11:53 AM EDT [facility] Gram Stain Result No polymorphonuclear leukocytes, No epithelial cells, and No organisms noted 03/30/2025 11:53 AM EDT [facility] Pleural Fluid Structure of right pleural cavity / Unknown Non-blood Collection / Unknown 03/24/2025 5:33 PM EDT 03/24/2025 5:45 PM EDT Rosy Rhodes MD LAB MICROBIOLOGY - GENERAL ORDERABLES Final Result Performing Organization Address [facility]/ZIP Co de Phone Number [facility] [address] [place] [address], [place] [phone] * Differential body fluid (03/24/2025 5:33 PM EDT) Fluid Neutrophils % 5 % 03/24/2025 8:10 PM EDT [facility] Fluid Lymphocytes % 49 % 03/24/2025 8:10 PM EDT [facility] Fluid Monocytes/Macrop hages 11 % 03/24/2025 8:10 PM EDT [facility] Fluid Eosinophils % 35 % 03/24/2025 8:10 PM EDT [facility] Fluid Basophils % 0 % 03/24/2025 8:10 PM EDT [facility] Fluid Other Cells % 0 % 03/24/2025 8:10 PM EDT [facility] Pleural Fluid Structure of right pleural cavity / Unknown Non-blood Collection / Unknown 03/24/2025 5:33 PM EDT 03/24/2025 5:45 PM EDT Narrative [facility] - 03/24/2025 8:10 PM EDT No reference ranges have been established for body fluids. Clinical correlation recommended. Rosy Rhodes MD LAB BODY FLUIDS AND STOOLS ORDERABLES Final Result [facility] [address] [place] [address], [place] [phone] * Pathology review, body fluid (03/24/2025 5:33 PM EDT) Pathologist review Body Fluid Cytocentrifuge prep: -Negative for malignancy JS [facility] Fl[facility] Structure of right pleural cavity / Unknown Non-blood Collection / Unknown 03/24/2025 5:33 PM EDT 03/24/2025 5:45 PM EDT us Rosy Rhodes MD LAB BODY FLUIDS AND STOOLS ORDERABLES Final Result Performing Organization Address [facility] de Phone Number [facility] [address] [place] [address], [place] [phone] * Triglycerides, body fluid (03/24/2025 5:33 PM EDT) Triglycerides , Fluid 36 See Comment mg/dL LAB CHEMISTRY METHOD 03/25/2025 12:15 PM EDT [facility] Pleural Fluid Structure of right pleural cavity / Unknown Non-blood Collection / Unknown 03/24/2025 5:33 PM EDT 03/24/2025 5:45 PM EDT [facility] - 03/25/2025 12:15 PM EDT No reference ranges have been established for body fluids. Clinical correlation recommended. us Rosy Rhodes MD LAB BODY FLUIDS AND STOOLS ORDERABLES Final Result Performing Organization Address [facility] de Phone Number [facility] [address] [place] [address], [place] [phone] * Protein, body fluid (03/24/2025 5:33 PM EDT) Protein, Fluid 5.4 See Comment g/dL LAB CHEMISTRY METHOD 03/24/2025 6:52 PM EDT [facility] Pleural Fluid Structure of right pleural cavity / Unknown Non-blood Collection / Unknown 03/24/2025 5:33 PM EDT 03/24/2025 5:45 PM EDT [facility] - 03/24/2025 6:52 PM EDT No reference ranges have been established for body fluids. Clinical correlation recommended. us Rosy Rhodes MD LAB BODY FLUIDS AND STOOLS ORDERABLES Final Result Performing Organization Address [facility] Co de Phone Number [facility] [address] [place] [address], [place] [phone] * Lactate dehydrogenase, body fluid (03/24/2025 5:33 PM EDT) LD, Fluid 799 See Comment unit/L LAB CHEMISTRY METHOD 03/24/2025 6:52 PM EDT [facility] Pleural Fluid Structure of right pleural cavity / Unknown Non-blood Collection / Unknown 03/24/2025 5:33 PM EDT 03/24/2025 5:45 PM EDT Narrative [facility] - 03/24/2025 6:52 PM EDT No reference ranges have been established for body fluids. Clinical correlation recommended. us Rosy Rhodes MD LAB BODY FLUIDS AND STOOLS ORDERABLES Final Result Performing Organization Address [facility] Co de Phone Number [facility] [address] [place] [address], [place] [phone] * Glucose, body fluid (03/24/2025 5:33 PM EDT) Glucose, Fluid 125 See Comment mg/dL LAB CHEMISTRY METHOD 03/24/2025 7:28 PM EDT [facility] Pleural Fluid Structure of right pleural cavity / Unknown Non-blood Collection / Unknown 03/24/2025 5:33 PM EDT 03/24/2025 5:45 PM EDT [facility] - 03/24/2025 7:28 PM EDT No reference ranges have been established for body fluids. Clinical correlation recommended. us Rosy Rhodes MD LAB BODY FLUIDS AND STOOLS ORDERABLES Final Result Performing Organization Address City/[facility]/ZIP Co de Phone Number [facility] [address] [place] [address], * Non-gynecologic cytology (03/24/2025 5:33 PM EDT) Final Diagnosis A. Pleural Fluid, Right, Thoracentesis, (ThinPrep, cell block): Negative for malignancy 03/26/2025 8:41 AM EDT [facility] Specimen A Adequacy Satisfactory for evaluation 03/26/2025 8:41 AM EDT [facility] Gross Description A. Pleural Cavity, Right, Pleural fluid: Received 600 ml of jimenez fluid; 1 ThinPrep, 1 Cell block Cell block in formalin @10:30, total formalin fixation time 10.5 hours. 03/26/2025 8:41 AM EDT [facility] Disclaimer Unless otherwise specified, all tissue is 10% NB formalin fixed and paraffin embedded. Technical cytopathology services provided by [facility], at [address] [place] [id number] (CLIA # [id number]/Jose Paula MD, Government Program Manager.) 03/26/2025 8:41 AM EDT [facility] Pleural Fluid Structure of right pleural cavity / Unknown Non-blood Collection / Unknown 03/24/2025 5:33 PM EDT 03/25/2025 9:54 AM EDT us Rosy Rhodes MD LAB CYTOLOGY ORDERABLES Fi nal Result Performing Organization Address City/[facility]/ZIP Co de Phone Number [facility] [address] [place] [address], * External CT Report (03/17/2025) Anatomical Region [...] Signed Date: 03/02/2025 15:18 ET Workstation ID: [id number] Transcribed By: Self Edit Transcribed Date: 03/02/2025 [...] Signed Date: 03/02/2025 15:18 ET Workstation ID: [id number] Transcribed By: Self Edit Transcribed Date: 03/02/2025 15:17 ET Silvia RED CV VASCULAR PROCEDURES Final Result * (ABNORMAL) CBC - Every 3 Days (02/12/2025 6:18 AM EDT) WBC 16.2(H) 4.8 - 10.8 K/mcL LAB HEMETOLOGY METHOD 02/12/2025 7:11 AM EDT [facility] RBC 3.80 3.80 - 4.80 M/mcL LAB HEMETOLOGY METHOD [facility]25 7[facility] Hemoglobin 11.4(L) 11.5 - 16.0 g/dL LAB HEMETOLOGY METHOD 02/12/2025 7:11 AM [facility] Hematocrit 34.5(L) 35.0 - 47.0 % LAB HEMETOLOGY METHOD 02/12/2025 7:11 AM [facility] MCV 90.3 79.0 - 98.0 FL LAB HEMETOLOGY METHOD 02/12/2025 7:11 AM [facility] MCH 29.8 27.0 - 32.0 pcg LAB HEMETOLOGY METHOD 02/12/2025 7:11 AM [facility] MCHC 33.0 32.0 - 37.0 g/dL LAB HEMETOLOGY METHOD 02/12/2025 7:11 [facility] RDW 13.1 11.0 - 15.0 % LAB HEMETOLOGY METHOD 02/12/2025 7:11 AM [facility] Platelets 292 130 - 400 K/mcL LAB HEMETOLOGY METHOD 02/12/2025 7:11 AM [facility] MPV 9.9 7.0 - 11.0 FL LAB HEMETOLOGY METHOD 02/12/2025 7:11 AM EDT [facility] NRBC 0.0 <1.0 % LAB HEMETOLOGY METHOD 02/12/2025 7:11 AM EDT [facility] NRBC Absolute 0.00 <0.10 K/mcL LAB HEMETOLOGY METHOD 02/12/2025 7:11 AM EDT [facility] Blood Venous blood specimen / Unknown Venipuncture / Unknown 02/12/2025 6:18 AM EDT 02/12/2025 6:42 AM EDT Silvia RED LAB BLOOD ORDERABLES Final Re sult Performing Organization Address City/[facility]/ZIP Co de Phone Number [facility] [address] [place] [address], [place] [phone] * Phosphorus (02/12/2025 6:18 AM EDT) Phosphorus 3.2 2.5 - 4.5 mg/dL LAB CHEMISTRY METHOD 02/12/2025 7:23 AM EDT [facility] Blood Venous blood specimen / Unknown Venipuncture / Unknown 02/12/2025 6:18 AM EDT 02/12/2025 6:42 AM EDT Silvia RED LAB BLOOD ORDERABLES Final Re sult [facility] [address] [place] [address], [place] [phone] * Magnesium (02/12/2025 6:18 AM EDT) Magnesium 1.9 1.9 - 2.6 mg/dL LAB CHEMISTRY METHOD 02/12/2025 7:23 AM EDT [facility] Blood Venous blood specimen / Unknown Venipuncture / Unknown 02/12/2025 6:18 AM EDT 02/12/2025 6:42 AM EDT us Silvia RED LAB BLOOD ORDERABLES Final Re sult [facility] [address] [place] [address], [place] [phone] * (ABNORMAL) Basic metabolic panel (02/12/2025 6:18 AM EDT) Only the most recent of2 resultswithin the time period is included. Sodium 138 133 - 145 mmol/L LAB CHEMISTRY METHOD 02/12/2025 7:23 AM [facility] Potassium 4.3 3.5 - 5.5 mmol/L LAB CHEMISTRY METHOD 02/12/2025 7:23 AM [facility] Chloride 107 96 - 110 mmol/L LAB CHEMISTRY METHOD 02/12/2025 7:23 AM [facility] CO2 27 21 - 32 mmol/L LAB CHEMISTRY METHOD 02/12/2025 7:23 AM [facility] Anion Gap 4 3 - 11 LAB CHEMISTRY METHOD 02/12/2025 7:23 AM [facility] Glucose 148(H) 70 - 100 mg/dL LAB CHEMISTRY METHOD 02/12/2025 7:23 AM [facility] BUN 15 5 - 25 mg/dL LAB CHEMISTRY METHOD 02/12/2025 7:23 AM [facility] Creatinine 0.98 0.50 - 1.10 mg/dL LAB CHEMISTRY METHOD 02/12/2025 7:23 AM [facility] eGFR 69 >=60 mL/min/1. 73m2 LAB CHEMISTRY METHOD 02/12/2025 7:23 AM [facility] Comment:Calculation based on the Chronic Kidney Disease Epidemiology Collaboration (CKD-EPI) equation refit without adjustment for race. BUN/Creatinine Ratio 15.3 LAB CHEMISTRY METHOD 02/12/2025 7:23 AM EDT [facility] Calcium 8.9 8.5 - 10.5 mg/dL LAB CHEMISTRY METHOD 02/12/2025 7:23 AM EDT [facility] Blood Venous blood specimen / Unknown Venipuncture / Unknown 02/12/2025 6:18 AM EDT 02/12/2025 6:42 AM EDT us Silvia RED LAB BLOOD ORDERABLES Final Re sult [facility] [address] [place] [address], [place] [phone] * XR Chest 1 View (02/12/2025 5:45 [...] Signed Date: 02/12/2025 08:29 ET Workstation ID: [id number] Transcribed By: Self Edit Transcribed Date: 02/12/2025 [...] Signed Date: 02/12/2025 08:29 ET Workstation ID: [id number] Transcribed By: Self Edit Transcribed Date: 02/12/2025 08:28 ET Silvia RED IMG XR PROCEDURES Final Resul t * Tissue exam (02/11/2025 9:42 AM EDT) Final Diagnosis A. Sternum, Xiphoid: -BENIGN CARTILAGE, CONSISTENT WITH STERNUM/XIPHOID B. Thymus-thymectom y: -SIMPLE (BENIGN) THYMIC CYSTS (2) 02/13/2025 12:57 PM EDT [facility] Gross Description A. Sternum, Xiphoid: Labeled [...] Inking code: Blue-inferior Green-anterior Yellow-right Black-posterior Red-superior [place]-left Piercer sections are submitted as follows: 1-4, complete [...] piece each [place] 02/13/2025 12:57 PM EDT [facility] Disclaimer Unless otherwise specified, all tissue is 10% NB formalin fixed and paraffin embedded. 02/13/2025 12:57 PM EDT [facility] Bone Bone structure of sternum / Unknown 02/11/2025 9:42 AM EDT 02/11/2025 1:05 PM EDT Tissue specimen (specimen) Thymus gland structure / Unknown 02/11/2025 11:59 AM EDT 02/11/2025 12:20 PM EDT us Bessy Kern MD LAB PATHOLOGY ORDERABLES Final R esult [facility] [address] [place] [address], * TH AN ARTERIAL LINE (CHARGE) (02/11/2025 [...] to verify the correct patient, procedure, equipment, nursing support worker and site/side marked as required. Preparation: Patient [...] and Staff Patient location during procedure: OR Resident/PRODUCT DEVELOPMENT ACTUARY: Chuy Dickson CRNA Performed: resident/PRODUCT DEVELOPMENT ACTUARY/CAA Performed by: Chuy Dickson CRNA Authorized by: [...] Units (02/11/2025 8:51 AM EDT) Product Code [id number] 02/12/2025 6:52 AM EDT [facility] Unit Number [id number] 02/13/20 6:52 AM EDT [facility] Crossmatch Compatible 02/11/2025 9:07 AM EDT [facility] Dispense Status Released From Crossmatch 02/12/2025 6:52 AM [facility] Unit ABO Rh OPOS 02/12/2025 6:52 AM [facility] Unit Expiration Date Time [id number] 02/12/2025 6:52 AM [facility] Unit Blood Type 5100 02/12/2025 6:52 AM EDT [facility] Product Code [id number] 02/12/2025 6:52 AM EDT [facility] Unit Number [id number] 02/13/20 6:52 AM EDT [facility] Crossmatch Compatible 02/11/2025 9:09 AM EDT [facility] Dispense Status Released From Crossmatch 02/12/2025 6:52 AM EDT [facility] Unit ABO Rh OPOS 02/12/2025 6:52 AM EDT [facility] Unit Expiration Date Time [id number] 02/12/2025 6:52 AM EDT [facility] Unit Blood Type 5100 02/12/2025 6:52 AM EDT [facility] Blood Venous blood specimen / Unknown 02/11/2025 8:51 AM EDT 02/03/2025 2:31 PM EDT Silvia RED BLOOD BANK PRODUCT ORDERABLES Final Result [facility] [address] [place] [address], * ECG 12 lead - Procedural (No Charge) (02/03/2025 2:13 PM EDT) Ventricular Rate ECG 82 BPM GEMUSE Atrial Rate 82 BPM GEMUSE P-R Interval 132 ms GEMUSE QRS Duration 72 ms GEMUSE Q-T Interval 366 ms GEMUSE QTc 427 ms GEMUSE P Wave [place] 49 degrees GEMUSE R [place] 10 degrees GEMUSE T [place] -2 degrees GEMUSE ECG Interpretation Normal sinus [...] LAB HEMETOLOGY METHOD 02/03/2025 2:42 PM EDT [facility] RBC 4.00 3.80 - 4.80 M/mcL LAB HEMETOLOGY METHOD 02/03/2025 2:42 PM EDT [facility] Hemoglobin 11.9 11.5 - 16.0 g/dL LAB HEMETOLOGY METHOD 02/03/2025 2:42 PM EDT [facility] Hematocrit 35.9 35.0 - 47.0 % LAB HEMETOLOGY METHOD 02/03/2025 2:42 PM EDT [facility] MCV 89.8 79.0 - 98.0 FL LAB HEMETOLOGY METHOD 02/03/2025 2:42 PM EDT [facility] MCH 29.8 27.0 - 32.0 pcg LAB HEMETOLOGY METHOD 02/03/2025 2:42 PM EDT [facility] MCHC 33.1 32.0 - 37.0 g/dL LAB HEMETOLOGY METHOD 02/03/2025 2:42 PM EDT [facility] RDW 12.6 11.0 - 15.0 % LAB HEMETOLOGY METHOD 02/03/2025 2:42 PM EDT [facility] Platelets 242 130 - 400 K/mcL LAB HEMETOLOGY METHOD 02/03/2025 2:42 PM EDT [facility] MPV 9.8 7.0 - 11.0 FL LAB HEMETOLOGY METHOD [facility] NRBC 0.0 <1.0 % LAB HEMETOLOGY METHOD 02/03/[facility]25 2:[facility] NRBC Absolute 0.00 <0.10 K/mcL LAB HEMETOLOGY METHOD 02/03/2025 2:42 PM [facility] Neutrophils Relative 54.4 % LAB HEMETOLOGY METHOD 02/03/2025 2:[facility] Lymphocytes Relative 37.8 % LAB HEMETOLOGY METHOD 02/03/2025 2:42 PM [facility] Monocytes Relative 5.3 % LAB HEMETOLOGY METHOD 02/03/2025 2:42 PM [facility] Eosinophils Relative 1.7 % LAB HEMETOLOGY METHOD 02/03/2025 2:42 PM [facility] Basophils Relative 0.5 % LAB HEMETOLOGY METHOD 02/03/2025 2:42 PM [facility] Immature Granulocytes Relative 0.3 % LAB HEMETOLOGY METHOD 02/03/2025 2:42 PM [facility] Neutrophils Absolute 4.12 1.50 - 7.00 K/mcL LAB HEMETOLOGY METHOD 02/03/2025 2:42 PM [facility] Lymphocytes Absolute 2.86 1.00 - 5.00 K/mcL LAB HEMETOLOGY METHOD 02/03/2025 2:42 PM EDT [facility] Monocytes Absolute 0.40 0.20 - 1.00 K/mcL LAB HEMETOLOGY METHOD 02/03/2025 2:42 PM [facility] Eosinophils Absolute 0.13 0.00 - 0.50 K/mcL LAB HEMETOLOGY METHOD 02/03/2025 2:42 PM [facility] Basophils Absolute 0.04 0.00 - 0.20 K/mcL LAB HEMETOLOGY METHOD 02/03/2025 2:42 PM EDT [facility] Immature Granulocytes Absolute 0.02 0.00 - 0.03 K/mcL LAB HEMETOLOGY METHOD 02/03/2025 2:42 PM EDT [facility] Blood Venous blood specimen / Unknown Venipuncture / Unknown 02/03/2025 2:03 PM EDT 02/03/2025 2:32 PM EDT us Bessy Kern MD LAB BLOOD ORDERABLES Final Resul t Performing Organization Address [facility]/ZIP Co de Phone Number [facility] [address] [place] [address], [place] [phone] * Activated partial thromboplastin time (02/03/2025 2:03 PM EDT) aPTT 33.5 24.1 - 39.3 sec LAB COAGULATION METHOD 02/03/2025 3:14 PM EDT [facility] Blood Venous blood specimen / Unknown Venipuncture / Unknown 02/03/2025 2:03 PM EDT 02/03/2025 2:32 PM EDT us Bessy Kern MD LAB BLOOD ORDERABLES Final Resul t Performing Organization Address [facility]/ZIP Co de Phone Number [facility] [address] [place] [address], [place] [phone] * Prothrombin time with INR (02/03/2025 2:03 PM EDT) Protime 11.4 10.6 - 13.9 sec LAB COAGULATION METHOD 02/03/2025 3:14 PM EDT [facility] INR 0.9 LAB COAGULATION METHOD 02/03/2025 3:14 PM EDT [facility] Blood Venous blood specimen / Unknown Venipuncture / Unknown 02/03/2025 2:03 PM EDT 02/03/2025 2:32 PM EDT Bessy Kern MD LAB BLOOD ORDERABLES Final Resul t Performing Organization Address [facility]/ZIP Co de Phone Number [facility] [address] [place] [address], [place] [phone] * Type and screen (02/03/2025 2:03 PM EDT) ABO Group O 02/06/2025 9:01 AM EDT [facility] Rh Type Positive 02/06/2025 9:01 AM EDT [facility] Antibody Screen Negative 02/06/2025 9:01 AM EDT [facility] Blood Venous blood specimen / Unknown Venipuncture / Unknown 02/03/2025 2:03 PM EDT 02/03/2025 2:31 PM EDT Bessy Kern MD LAB BLOOD BANK TEST ORDERABLES F inal Result Performing Organization Address [facility]/ZIP Co de Phone Number [facility] [address] [place] [address], [place] [phone] from Last 3 Months Insurance MEDICAID - [...] currently active code status orders. Care Teams Manager Resort Relationship Specialty Start Date End Date Mychal Long MD [address] [place] [address] [place] [address] PCP - General 12/26/11
== END ==
LOC: HO.CARD 13:31
PROVIDERS: PCP Internal Medicine; Visit Provider Nurse Practitioner Family
DX: R06.00 Dyspnea, unspecified (principal)
CPT/HCPCS: 93306

== ENCOUNTER → 2025-04-22 13:33 | Outpatient (BNV) | payer MEDICAID, SELFPAY | PROVIDERS: PCP Internal Medicine; Visit Provider Internal Medicine Cardiovascular Disease | DX: R06.00 Dyspnea, unspecified (principal) | CPT/HCPCS: 93306 ==

== ENCOUNTER 2025-05-07 15:58 | Outpatient (REF) | payer MEDICAID, SELFPAY ==
--- OUTSIDE RECORDS SUMMARY | 2025-05-01 15:00 | XMS_ITS | Encounter Summary ---
Author Organization [employer] Address [address] [place] [address] Care Team Providers Care Physical Education Teacher Name Role Phone Mychal Long MD Primary Care [facility] Reason for Visit * Reason Comments pleural effusion Encounter Details Date Type Department Care Team ([facility] st Contact Info) Description 05/01/2025 3:00 PM EDT Office Visit Pulmonology - [address] [phone] Rosy Rhodes MD [address] [place] [address] Bilateral pleural effusion (Primary Dx) Social History Tobacco Use Types [...] on file documented as of this encounter Last Filed Vital Signs Vital Sign Reading Time Taken Comments Blood Pressure 129/66 05/01/2025 2:52 PM EDT Pulse 88 05/01/2025 2:52 PM EDT Temperature 36.6 C (97.9 F) 05/01/2025 2:52 PM EDT Respiratory Rate - - Oxygen Saturation 97% 05/01/2025 2:52 PM EDT Inhaled Oxygen Concentration - - Weight 94 kg (207 lb 4.8 oz) 05/01/2025 2:52 PM EDT Height 160 cm (5' 3 ) 05/01/2025 2:52 PM EDT Body Mass Index 36.72 05/01/2025 2:52 PM EDT documented in this encounter Progress Notes * Rosy Rhodes MD - 05/01/2025 3:00 PM EDT Images from the original note were not included. [facility] Interventional Pulmonology 05/01/2025 Elaine Rodas : 1970 PCP: Mychal Long MD Chief Complaint:: b/l pleural effusion History of Present Illness: Elaine Rodas is a 54 y.o. female former smoking (quit 2024) past medicalhistory COPD, HTN who presents with b/l pleural effusion. No pleural effusions in preop CT chest December 16, 2024 which showed thymic mass. No other lung abnormalities. On February 11, 2025 underwent da Mery thymectomy subxiphoid, bronchoscopy. Pathology shows simple benign thymic cyst. Post surgery there were x-rays showing small bilateral pleural effusions. CT chest done at [facility] March 17, 2025 ordered by her barrel ribs solderer at [facility] in the setting of shortness of breath showed bilateral dependent pleural effusions. Her barrel ribs solderer reportedly advised to going to ER. Patient reports she went to the ER had some testing done and was discharged home. This included heart testing of which we do not have the result but which did not show significant abnormalities. Patient followed with pulmonology at [facility] reportedly due to right sided pleuritic type chest pain that she has had chronically which worsened after a fall 1 year ago. However she had no known history of pleural effusion or other pleural abnormalities. No known hx CHF she reports having Echo done at [facility]. Reports SOB lying flat since surgery, no LE edema. S/p thora R side March 2025 (when she was first seen in IP clinic) with 600 mL serous fluid eosinophilic uncomplicated exudate, negative cytology and culture. Good reexpansion post thora. L side effusion too small for safe drainage. Presents to follow up April 2025. Report improved SOB and minimal chest pain post thora which resolved after 3 hrs. Reports ongoing dry cough, no fevers, chills 1 day. No ongoing chest pain. Allergies: Allergies Allergen Reactions Lisinopril Cough Other reaction(s): unspecified Penicillins Other YEAST INFECTION Verapamil Unknown Other reaction(s): unspecified Other Reaction(s): unknown Medications: Current Outpatient Medications Medication Instructions amLODIPine (NORVASC) 10 mg tablet 1 tablet, Daily cholecalciferol (VITAMIN D-3) 50 mcg (2,000 unit) tablet 1 tablet, Daily clonazePAM (KLONOPIN) 1 mg, Daily fluticasone furoate-vilanteroL (Breo Ellipta) 100-25 mcg/dose inhaler Daily fluticasone propionate (FLONASE) 50 mcg/actuation nasal spray SHAKE BEFORE FIRST USE PRIME AFTER USE CLEAN TIP 1 SPRAY INTO EACH NOSTRIL TWICE A DAY hydrOXYzine HCL (ATARAX) 25 mg, Once lidocaine (LIDODERM) 5 % patch 1 patch, Daily losartan (COZAAR) 100 mg, Daily minoxidiL (LONITEN) 2.5 mg, Daily traMADoL (ULTRAM) 50 mg, 3 times daily PRN Ventolin HFA 90 mcg/actuation inhaler INHALE 2 PUFFS EVERY 4 HOURS NEEDED FOR FOR DYSPNEA zolpidem (AMBIEN) 5 mg, Nightly PRN Past Medical History: Diagnosis Date Anxiety Arthritis Asthma Depression DX:Depression Essential (primary) hypertension DX:Essential (primary) hypertension Fibromyalgia DX:Fibromyalgia Gallstone pancreatitis DX:Gallstone pancreatitis Glaucoma DX:Glaucoma Joint pain Palpitation DX:Palpitation Thymic cyst ([facility] V24) 02/26/2025 Past Surgical History: Procedure Laterality Date CARPAL TUNNEL RELEASE Bilateral PROCEDURE: HISTORICAL CARPAL TUNNEL REL CHOLECYSTECTOMY PROCEDURE: HISTORICAL CHOLECYSTECTOMY COLONOSCOPY KNEE SURGERY Right PROCEDURE: HISTORICAL KNEE SURGERY THYMECTOMY N/A 02/11/2025 TUBAL LIGATION PROCEDURE: HISTORICAL TUBAL LIGATION UPPER GASTROINTESTINAL ENDOSCOPY Family History Problem Relation Name Age of Onset Other (Other: kidney disease) Mother Colon cancer Father Social History Socioeconomic History Marital status: Single Spouse name: Not on file Number of children: Not on file Years of education: Not on file Highest education level: Not on file Occupational History Not on file Tobacco Use Smoking status: Former Current packs/day: 0.00 Average packs/day: 0.8 packs/day for 30.4 years (22.8 ttl pk-yrs) Types: Cigarettes Start date: 1994 Quit date: 02/10/2025 Years since quittin.2 Smokeless tobacco: Not on file Substance and Sexual Activity Alcohol use: Not Currently Drug use: Never Sexual activity: Not on file Other Topics Concern Not on file Social History Narrative Not on file Review of Systems Constitutional: Negative. HENT: Negative. Eyes: Negative. Respiratory: See HPI Cardiovascular: Negative. Gastrointestinal: Negative. Endocrine: Negative. Genitourinary: Negative. Musculoskeletal: Negative. Skin: Negative. Breast: negative. Allergic/Immunologic: Negative. Neurological: Negative. Hematological: Negative. Psychiatric/Behavioral: Negative. Vitals: 05/01/25 1452 BP: 129/66 Pulse: 88 Temp: 36.6 ??C (97.9 ??F) SpO2: 97% Body mass index is 36.72 kg/m??. General: No acute distress HEENT: Mucous membranes moist Neck: no JVD, supple neck Chest: diminished to auscultation R>L base, no wheezing or rales, no accessory muscle use CVS: S1-S2, regular rhythm, no murmurs Abdomen: Nondistended Extremities: No edema, warm Skin: No rashes or lesions Neuro: Alert and oriented x 3 Lab Results Component Value Date BUN 15 02/12/2025 CALCIUM 8.9 02/12/2025 CL 107 02/12/2025 CO2 27 02/12/2025 CREATININE 0.98 02/12/2025 HCT 34.5 (L) 02/12/2025 HGB 11.4 (L) 02/12/2025 MG 1.9 02/12/2025 PHOS 3.2 02/12/2025 PLT 292 02/12/2025 K 4.3 02/12/2025 NA 138 02/12/2025 WBC 16.2 (H) 02/12/2025 Pulmonary Function Results: Imaging: I personally reviewed imaging and the data revealed: CT chest March 17 2025: February 2025: Visit Diagnoses: 1. Bilateral pleural effusion Impression: Bilateral pleural effusions, simple independent appearing on CT chest and x-ray post thymectomy which showed benign thymic cyst. On ultrasound exam, simple anechoic effusions bilaterally right greater than left. Likely etiology is benign postsurgical effusion. Differential includes chylous effusion. I recommended thoracentesis, diagnostic and therapeutic. S/p Right thoracentesis 03/2025 with improvement in her SOB, full drainage. Post procedure CXR with reexpansion on R side. PFAs eosinophilic exudate uncomplicated, cyto and culture negative. Not chylous. L side with small effusion, too small for safe drainage 03/2025. PFAs, imaging, and history indicate this is postsurgical effusion. Today on US exam has R>L effusions posteriorly. Recommendations: -Thoracentesis with 450 mL drained R side (second thora) and 350 mL drained left side (first thora) -F/u PFAs -CXR -Not a candidate for pleurx given location of effusion, decreasing in size -F/u in 1 month Today I have spent 45 minutes on this encounter with the following activities; time is independent from any pleural procedures performed on the same day billed separately: Pre-visit review of chart Pre-visit review of imaging Reviewing patient provided information Personal face to face with patient (including discussion counseling) History and physical examination Medication reconciliation Discussion of laboratory results and pathology Discussion with consulting/referring physician(s) Coordination of care including with office staff and nurse navigation Documentation. Rosy Rhodes [place] [address] Office [phone], [place] [address] Office [phone] * Rosy Rhodes MD - 05/01/2025 3:00 PM EDTAssociated Order(s): Thoracentesis Pre-Procedure Diagnose(s): Bilateral pleural effusion Post-Procedure Diagnose(s): Bilateral pleural effusion Images from the original note were not included. Thoracentesis Date/Time: 05/01/2025 4:28 PM Performed by: Rosy Rhodes MD Authorized by: Rosy Rhodes MD Consent: Consent obtained: Verbal Consent given by: Patient Risks discussed: Bleeding, infection, pain and pneumothorax Alternatives discussed: No treatment [facility] protocol: Procedure explained and questions answered to patient or proxy's satisfaction: yes Relevant documents present and verified: yes Test results available: yes Imaging studies available: yes Required blood products, implants, devices, and special equipment available: yes Immediately prior to procedure, a time out was called: yes Patient identity confirmed: Verbally with patient Sedation: Sedation type: None Anesthesia: Anesthesia method: Local infiltration Local anesthetic: Lidocaine 1% WITH epi Procedure details: Preparation: Patient was prepped and draped in usual sterile fashion Patient position: Sitting Location: R midscapular line Intercostal space: 7th Puncture method: Jbdy-sna-pcneld catheter Ultrasound guidance: yes Indwelling catheter placed: no Needle gauge: 20 Catheter size: 8 Fr Number of attempts: 1 Drainage characteristics: Cloudy (serous) Post-procedure details: Post-procedure chest x-ray: pending. Procedure completion: Tolerated well, no immediate complications Comments: 450 mL removed, stopped for not further fluid. * Rosy Rhodes MD - 05/01/2025 3:00 PM EDTAssociated Order(s): Thoracentesis Pre-Procedure Diagnose(s): Bilateral pleural effusion Post-Procedure Diagnose(s): Bilateral pleural effusion Thoracentesis Date/Time: 05/01/2025 4:29 PM Performed by: Rosy Rhodes MD Authorized by: Rosy Rhodes MD Consent: Consent obtained: Verbal Consent given by: Patient Risks discussed: Bleeding, pneumothorax, pain and infection Alternatives discussed: No treatment [facility] protocol: Procedure explained and questions answered to [...] prepped and draped in usual sterile fashion Patient position: Sitting Location: L midscapular line Intercostal space: 7th Puncture method: Rgfa-dwo-wfwmld catheter Ultrasound guidance: yes Indwelling catheter placed: no Needle gauge: 20 Catheter size: 8 Fr Number of attempts: 1 Fluid characteristics: serous. Post-procedure details: Post-procedure chest x-ray: pending. Procedure completion: Tolerated well, no immediate complications Comments: 350 mL removed, stopped for no further fluid documented in this encounter Plan of Treatment Upcoming Encounters Date Type Department Care Team (Late st Contact Info) Description 05/29/2025 3:00 PM EDT Office Visit Pulmonology - [place] [address] [place] [address] Rosy Rhodes MD [address] [place] [phone] documented as of this encounter Procedures Procedure Name Priority Date/Time Associated Diagnosis Comments NON-GYNECOLOGIC CYTOLOGY Routine 05/05/2025 8:05 AM EDT Bilateral pleural effusion NON-GYNECOLOGIC CYTOLOGY Routine 05/05/2025 8:00 AM EDT Bilateral pleural effusion KS THORACENTESIS PLEURAL SPACE NEEDLE/CATH ASPIRATION W IMAGING GUIDANCE Routine 05/01/2025 4:29 PM EDT Bilateral pleural effusion KS THORACENTESIS PLEURAL SPACE NEEDLE/CATH ASPIRATION W IMAGING GUIDANCE Routine 05/01/2025 4:28 PM EDT Bilateral pleural effusion CELL COUNT WITH REFLEX DIFFERENTIAL, BODY FLUID Routine 05/01/2025 3:00 PM EDT Bilateral pleural effusion CELL COUNT WITH REFLEX DIFFERENTIAL, BODY FLUID Routine 05/01/2025 3:00 PM EDT Bilateral pleural effusion CULTURE BODY FLUID WITH GRAM STAIN Routine 05/01/2025 3:00 PM EDT Bilateral pleural effusion CULTURE BODY FLUID WITH GRAM STAIN Routine 05/01/2025 3:00 PM EDT Bilateral pleural effusion DIFFERENTIAL BODY FLUID Routine 05/01/2025 3:00 PM EDT Bilateral pleural effusion DIFFERENTIAL BODY FLUID Routine 05/01/2025 3:00 PM EDT Bilateral pleural effusion PROTEIN, BODY FLUID Routine 05/01/2025 3 :00 PM EDT Bilateral pleural effusion PROTEIN, BODY FLUID Routine 05/01/2025 3 :00 PM EDT Bilateral pleural effusion LACTATE DEHYDROGENASE, BODY FLUID Routine 05/01/2025 3:00 PM EDT Bilateral pleural effusion LACTATE DEHYDROGENASE, BODY FLUID Routine 05/01/2025 3:00 PM EDT Bilateral pleural effusion GLUCOSE, BODY FLUID Routine 05/01/2025 3 :00 PM EDT Bilateral pleural effusion GLUCOSE, BODY FLUID Routine 05/01/2025 3 :00 PM EDT Bilateral pleural effusion documented in this encounter Results * Non-gynecologic cytology (05/05/2025 8:05 AM EDT) Final Diagnosis Pleural Fluid, Left, Thoracentesis, (ThinPrep, cell block): No malignant cells identified Eosinophils, lymphocytes and histiocytes present 05/05/2025 8:05 AM EDT [facility] Specimen A Adequacy Satisfactory for evaluation 05/05/2025 8:05 AM T [facility] Gross Description A. Pleural Cavity, Left, Pleural Cavity Left: Received 400ml of dark cloudy fluid 1 thin prep, 1 cell block Formalin fixation 7.5 put in formalin at 1330 05/05/2025 8:05 AM EDT [facility] Disclaimer Unless otherwise specified, all tissue is 10% NB formalin fixed and paraffin embedded. Technical cytopathology services provided by [facility], at [address] [place] [address], [place] [address] (CLIA # [id number]/Jose Paula MD, Acid Conditioning Worker.) 05/05/2025 8:05 AM EDT [facility] Pleural Fluid Structure of left pleural cavity / Unknown 05/04/2025 1:00 PM EDT Rosy Rhodes MD LAB CYTOLOGY ORDERABLES Fi nal Result Performing Organization Address [facility]/ZIP Co de Phone Number [facility] [address] [place] [address], [place] [phone] * Non-gynecologic cytology (05/05/2025 8:00 AM EDT) Final Diagnosis Pleural Fluid, Right, Thoracentesis, (ThinPrep, cell block): No malignant cells identified Eosinophils, lymphocytes and histiocytes present 05/05/2025 8:00 AM EDT [facility] Specimen A Adequacy Satisfactory for evaluation 05/05/2025 8:00 AM EDT [facility] Gross Description A. Pleural Cavity, Right, Pleural Cavity Right: Received 600ml of cloudy orange fluid 1 thin prep, 1 block Formalin fixation 8 put in formalin at 1300 05/05/2025 8:00 AM EDT [facility] Disclaimer Unless otherwise specified, all tissue is 10% NB formalin fixed and paraffin embedded. Technical cytopathology services provided by [facility], at [address] [place] [id number] (CLIA # [id number]/Jose Paula MD, Acid Conditioning Worker.) 05/05/2025 8:00 AM EDT [facility] Pleural Fluid Structure of right pleural cavity / Unknown 05/04/2025 12:10 PM EDT Rosy Rhodes MD LAB CYTOLOGY ORDERABLES Fi nal Result Performing Organization Address [facility]/ZIP Co de Phone Number [facility] [address] [place] [address], [place] [phone] * XR Chest 2 Views (05/01/2025 4:36 PM EDT) Anatomical Region Laterality Modality Body Radiographic Hilda ging 05/01/2025 4:41 PM EDT Impressions 05/01/2025 4:41 PM EDT FINDINGS/IMPRESSION: No pneumothorax status post bilateral thoracenteses with small residual effusions remaining. -------- FINAL REPORT -------- Dictated By: Garrett Maria Dictated Date: 05/01/2025 16:41 ET Assigned Physician: Garrett Maria Reviewed and Electronically Signed By: Garrett Maria Signed Date: 05/01/2025 16:41 ET Workstation ID: [id number] Transcribed By: Self Edit Transcribed Date: 05/01/2025 16:41 ET Narrative 05/01/2025 4:41 PM EDT XR CHEST 2 VIEWS INDICATION: post bilateral thoracentesis TECHNIQUE: XR CHEST 2 VIEWS COMPARISON: No priors available. Procedure Note Garrett Maria MD - 05/01/2025 XR CHEST 2 VIEWS INDICATION: post bilateral thoracentesis TECHNIQUE: XR CHEST 2 VIEWS COMPARISON: No priors available. IMPRESSION: FINDINGS/IMPRESSION: No pneumothorax status post bilateral thoracenteseswith small residual effusions remaining. -------- FINAL REPORT -------- Dictated By: Garrett Maria Dictated Date: 05/01/2025 16:41 ET Assigned Physician: Garrett Maria Reviewed and Electronically Signed By: Garrett Maria Signed Date: 05/01/2025 16:41 ET Workstation ID: [id number] Transcribed By: Self Edit Transcribed Date: 05/01/2025 16:41 ET us Rosy Rhodes MD IMG XR PROCEDURES Final Re sult * KS THORACENTESIS PLEURAL SPACE NEEDLE/CATH ASPIRATION W IMAGING GUIDANCE (05/01/2025 4:29 PM EDT) Rosy Nuno MD - 05/01/2025 4:29 PM EDT Rosy Rhodes MD 05/01/2025 4:49 PM Thoracentesis Date/Time: 05/01/2025 4:29 PM Performed by: Rosy Rhodes MD Authorized by: Rosy Rhodes MD Consent: Consent obtained: Verbal Consent given by: Patient Risks discussed: Bleeding, pneumothorax, pain and infection Alternatives discussed: No treatment [facility] protocol: Procedure explained and questions answered to [...] prepped and draped in usual sterile fashion Patient position: Sitting Location: L midscapular line Intercostal space: 7th Puncture method: Gwbm-eou-ulyhks catheter Ultrasound guidance: yes Indwelling catheter placed: no Needle gauge: 20 Catheter size: 8 Fr Number of attempts: 1 Fluid characteristics: serous. Post-procedure details: Post-procedure chest x-ray: pending. Procedure completion: Tolerated well, no immediate complications Comments: 350 mL removed, stopped for no further fluid us Rosy Rhodes MD IN CLINIC/BEDSIDE ORDERABL ES Final Result * KS THORACENTESIS PLEURAL SPACE NEEDLE/CATH ASPIRATION W IMAGING GUIDANCE (05/01/2025 4:28 PM EDT) Rosy Nuno MD - 05/01/2025 4:28 PM EDT Rosy Rhodes MD 05/01/2025 4:49 PM Thoracentesis Date/Time: 05/01/2025 4:28 PM Performed by: Rosy Rhodes MD Authorized by: Rosy Rhodes MD Consent: Consent obtained: Verbal Consent given by: Patient Risks discussed: Bleeding, infection, pain and pneumothorax Alternatives discussed: No treatment [facility] protocol: Procedure explained and questions answered to patient or proxy's satisfaction: yes Relevant documents present and verified: yes Test results available: yes Imaging studies available: yes Required blood products, implants, devices, and special equipment available: yes Immediately prior to procedure, a time out was called: yes Patient identity confirmed: Verbally with patient Sedation: Sedation type: None Anesthesia: Anesthesia method: Local infiltration Local anesthetic: Lidocaine 1% WITH epi Procedure details: Preparation: Patient was prepped and draped in usual sterile fashion Patient position: Sitting Location: R midscapular line Intercostal space: 7th Puncture method: Oumg-ivs-evsijj catheter Ultrasound guidance: yes Indwelling catheter placed: no Needle gauge: 20 Catheter size: 8 Fr Number of attempts: 1 Drainage characteristics: Cloudy (serous) Post-procedure details: Post-procedure chest x-ray: pending. Procedure completion: Tolerated well, no immediate complications Comments: 450 mL removed, stopped for not further fluid. Rosy Rhodes MD IN CLINIC/BEDSIDE ORDERABL ES Final Result * Differential body fluid (05/01/2025 3:00 PM EDT) Fluid Neutrophils % 7 % 05/01/2025 6:44 PM EDT [facility] Fluid Lymphocytes % 42 % 05/01/2025 6:44 PM EDT [facility] Fluid Monocytes/Macrop hages 23 % 05/01/2025 6:44 PM EDT [facility] Fluid Eosinophils % 28 % 05/01/2025 6:44 PM EDT [facility] Fluid Basophils % 0 % 05/01/2025 6:44 PM EDT [facility] Fluid Other Cells % 0 % 05/01/2025 6:44 PM EDT [facility] Pleural Fluid Structure of left pleural cavity / Unknown 05/01/2025 3:00 PM EDT 05/01/2025 4:48 PM EDT Narrative [facility] - 05/01/2025 6:44 PM EDT No reference ranges have been established for body fluids. Clinical correlation recommended. Rosy Rhodes MD LAB BODY FLUIDS AND STOOLS ORDERABLES Final Result [facility] [address] [place] [address], [place] [phone] * Differential body fluid (05/01/2025 3:00 PM EDT) Fluid Neutrophils % 3 % 05/01/2025 6:36 PM EDT [facility] Fluid Lymphocytes % 45 % 05/01/2025 6:36 PM EDT [facility] Fluid Monocytes/Macrop hages 24 % 05/01/2025 6:36 PM EDT [facility] Fluid Eosinophils % 27 % 05/01/2025 6:36 PM EDT [facility] Fluid Basophils % 1 % 05/01/2025 6:36 PM EDT [facility] Fluid Other Cells % 0 % 05/01/2025 6:36 PM EDT [facility] Pleural Fluid Structure of right pleural cavity / Unknown 05/01/2025 3:00 PM EDT 05/01/2025 4:35 PM EDT Narrative [facility] - 05/01/2025 6:36 PM EDT No reference ranges have been established for body fluids. Clinical correlation recommended. Rosy Rhodes MD LAB BODY FLUIDS AND STOOLS ORDERABLES Final Result [facility] [address] [place] [address], * Culture body fluid with gram stain (05/01/2025 3:00 PM EDT) Fluid Culture No growth at 3 days LAB MICROBIOLOGY METHOD 05/04/2025 11:15 AM EDT [facility] Gram Stain Result No polymorphonuclear leukocytes, No epithelial cells, and No organisms noted 05/04/2025 11:15 AM EDT [facility] Pleural Fluid Structure of left pleural cavity / Unknown Non-blood Collection / Unknown 05/01/2025 3:00 PM EDT 05/01/2025 4:48 PM EDT Rosy Rhodes MD LAB MICROBIOLOGY - GENERAL ORDERABLES Final Result Performing Organization Address [facility] Co de Phone Number [facility] [address] [place] [address], [place] [phone] * Cell count with reflex differential, body fluid (05/01/2025 3:00 PM EDT) Body Fluid Total Nucleated Cells 3,133 /mm3 LAB HEMETOLOGY METHOD 05/01/2025 6:48 PM EDT [facility] Body Fluid RBC 4,000 /mm3 LAB HEMETOLOGY METHOD 05/01/2025 6:48 PM EDT [facility] Body Fluid Color Yellow 05/01/2025 6:48 PM EDT [facility] Body Fluid Clarity Cloudy 05/01/2025 6:48 PM EDT [facility] Body Fluid Source Pleural 05/01/2025 6:48 PM EDT [facility] Comment:Left Pleural Fluid Structure of left pleural cavity / Unknown 05/01/2025 3:00 PM EDT 05/01/2025 4:48 PM EDT Narrative [facility] - 05/01/2025 6:48 PM EDT No reference ranges have been established for body fluids. Clinical correlation recommended. us Rosy Rhodes MD LAB BODY FLUIDS AND STOOLS ORDERABLES Final Result Performing Organization Address City/[facility]/ZIP Co de Phone Number [facility] [address] [place] [address], [place] [phone] * Lactate dehydrogenase, body fluid (05/01/2025 3:00 PM EDT) LD, Fluid 587 See Comment unit/L LAB CHEMISTRY METHOD 05/01/2025 5:33 PM EDT [facility] Pleural Fluid Structure of left pleural cavity / Unknown Non-blood Collection / Unknown 05/01/2025 3:00 PM EDT 05/01/2025 4:48 PM EDT [facility] - 05/01/2025 5:33 PM EDT No reference ranges have been established for body fluids. Clinical correlation recommended. us Rosy Rhodes MD LAB BODY FLUIDS AND STOOLS ORDERABLES Final Result Performing Organization Address [facility] Co de Phone Number [facility] [address] [place] [address], [place] [phone] * Glucose, body fluid (05/01/2025 3:00 PM EDT) Glucose, Fluid 103 See Comment mg/dL LAB CHEMISTRY METHOD 05/01/2025 5:33 PM EDT [facility] Pleural Fluid Structure of left pleural cavity / Unknown Non-blood Collection / Unknown 05/01/2025 3:00 PM EDT 05/01/2025 4:48 PM EDT [facility] - 05/01/2025 5:33 PM EDT No reference ranges have been established for body fluids. Clinical correlation recommended. us Rosy Rhodes MD LAB BODY FLUIDS AND STOOLS ORDERABLES Final Result Performing Organization Address [facility] de Phone Number [facility] [address] [place] [address], [place] [phone] * Protein, body fluid (05/01/2025 3:00 PM EDT) Protein, Fluid 5.2 See Comment g/dL LAB CHEMISTRY METHOD 05/01/2025 5:33 PM EDT [facility] Pleural Fluid Structure of left pleural cavity / Unknown Non-blood Collection / Unknown 05/01/2025 3:00 PM EDT 05/01/2025 4:48 PM EDT Narrative [facility] - 05/01/2025 5:33 PM EDT No reference ranges have been established for body fluids. Clinical correlation recommended. us Rosy Rhodes MD LAB BODY FLUIDS AND STOOLS ORDERABLES Final Result Performing Organization Address [facility] Co de Phone Number [facility] [address] [place] [address], [place] [phone] * Culture body fluid with gram stain (05/01/2025 3:00 PM EDT) Fluid Culture No growth at 3 days LAB MICROBIOLOGY METHOD 05/04/2025 11:15 AM EDT [facility] Gram Stain Result Rare Polymorphonuclear leukocytes 05/04/2025 11:15 AM EDT [facility] Gram Stain Result No epithelial cells seen 05/04/2025 11:15 AM EDT [facility] Gram Stain Result No organisms seen 05/04/2025 11:15 AM EDT [facility] Pleural Fluid Structure of right pleural cavity / Unknown 05/01/2025 3:00 PM EDT 05/01/2025 4:49 PM EDT us Rosy Rhodes MD LAB MICROBIOLOGY - GENERAL ORDERABLES Final Result Performing Organization Address [facility] de Phone Number [facility] [address] [place] [address], [place] [phone] * Cell count with reflex differential, body fluid (05/01/2025 3:00 PM EDT) Body Fluid Total Nucleated Cells 3,410 /mm3 LAB HEMETOLOGY METHOD 05/01/2025 6:47 PM EDT [facility] Body Fluid RBC 12,000 /mm3 LAB HEMETOLOGY METHOD 05/01/2025 6:47 PM EDT [facility] Body Fluid Color Cassie 05/01/2025 6:47 PM EDT [facility] Body Fluid Clarity Cloudy 05/01/2025 6:47 PM EDT [facility] Body Fluid Source Pleural 05/01/2025 6:47 PM EDT [facility] Comment: Right Pleural Fluid Structure of right pleural cavity / Unknown 05/01/2025 3:00 PM EDT 05/01/2025 4:35 PM EDT [facility] - 05/01/2025 6:47 PM EDT No reference ranges have been established for body fluids. Clinical correlation recommended. us Rosy Rhodes MD LAB BODY FLUIDS AND STOOLS ORDERABLES Final Result Performing Organization Address [facility]/ZIP Co de Phone Number [facility] [address] [place] [address], [place] [phone] * Protein, body fluid (05/01/2025 3:00 PM EDT) Protein, Fluid 5.1 See Comment g/dL LAB CHEMISTRY METHOD 05/01/2025 5:33 PM EDT [facility] Pleural Fluid Structure of right pleural cavity / Unknown 05/01/2025 3:00 PM EDT 05/01/2025 4:35 PM EDT [facility] - 05/01/2025 5:33 PM EDT No reference ranges have been established for body fluids. Clinical correlation recommended. us Rosy Rhodes MD LAB BODY FLUIDS AND STOOLS ORDERABLES Final Result [facility] [address] [place] [address], [place] [phone] * Glucose, body fluid (05/01/2025 3:00 PM EDT) Glucose, Fluid 99 See Comment mg/dL LAB CHEMISTRY METHOD 05/01/2025 5:33 PM EDT [facility] Pleural Fluid Structure of right pleural cavity / Unknown 05/01/2025 3:00 PM EDT 05/01/2025 4:35 PM EDT [facility] - 05/01/2025 5:33 PM EDT No reference ranges have been established for body fluids. Clinical correlation recommended. Rosy Rhodes MD LAB BODY FLUIDS AND STOOLS ORDERABLES Final Result Performing Organization Address [facility] Co de Phone Number [facility] [address] [place] [address], [place] [phone] * Lactate dehydrogenase, body fluid (05/01/2025 3:00 PM EDT) LD, Fluid 545 See Comment unit/L LAB CHEMISTRY METHOD 05/01/2025 5:33 PM EDT [facility] Pleural Fluid Structure of right pleural cavity / Unknown 05/01/2025 3:00 PM EDT 05/01/2025 4:35 PM EDT [facility] - 05/01/2025 5:33 PM EDT No reference ranges have been established for body fluids. Clinical correlation recommended. Rosy Rhodes MD LAB BODY FLUIDS AND STOOLS ORDERABLES Final Result Performing Organization Address [facility]/ZIP Co de Phone Number [facility] [address] [place] [address], [place] [phone] documented in this encounter Visit Diagnoses Diagnosis Bilateral pleural effusion- Primary Unspecified pleural effusion Bilateral pleural effusion Unspecified pleural effusion documented in this encounter Care Teams Physical Education Teacher Relationship Specialty Start Date End Date Mychal Long MD [address] [place] [address] [place] [address] PCP - General 12/26/11 documented as of this encounter
--- OUTSIDE RECORDS SUMMARY | 2025-05-01 16:31 | XMS_ITS | Encounter Summary ---
Author Organization [employer] Address [address] [place] [address] Care Team Providers Care Nitrator Operator Name Role Phone Mychal Long MD Primary Care Provi [facility] Encounter Details Date Type Department Care Team (Latest Contact Info) Description 05/01/2025 4:31 PM EDT - 05/01/2025 11:59 PM EDT Hospital Encounter [facility] Xray [address] [place] [address] Bilateral pleural effusion Discharge Disposition: Home or Self Care Social History Tobacco Use Types Packs/Day Years [...] on file documented as of this encounter Medications at Time of Discharge amLODIPine (NORVASC) 10 mg tablet Take 1 tablet (10 mg total) by mouth 1 (one) time each day. 11/11/2024 cholecalciferol (VITAMIN D-3) 50 mcg (2,000 unit) tablet Take 1 tablet (2,000 Units total) by mouth 1 (one) time each day. 04/04/2024 clonazePAM (KlonoPIN) 1 mg tablet Take 1 tablet (1 mg total) by mouth 1 (one) time each day. fluticasone furoate-vilantero L (Breo Ellipta) 100-25 mcg/dose inhaler Inhale by mouth 1 (one) time each day. fluticasone propionate (FLONASE) 50 mcg/actuation nasal spray SHAKE BEFORE FIRST USE PRIME AFTER USE CLEAN TIP 1 SPRAY INTO EACH NOSTRIL TWICE A DAY 01/16/2025 hydrOXYzine HCL (ATARAX) 25 mg tablet 1 tablet (25 mg total) 1 (one) time. lidocaine (LIDODERM) 5 % patch 1 patch 1 (one) time each day. 06/09/2024 losartan (COZAAR) 100 mg tablet Take 1 tablet (100 mg total) by mouth 1 (one) time each day. minoxidiL (LONITEN) 2.5 mg tablet Take 1 tablet (2.5 mg total) by mouth daily. 12/21/2023 traMADoL (ULTRAM) 50 mg tablet Take 1 tablet (50 mg total) by mouth 3 (three) times a day if needed. 01/16/2025 Ventolin HFA 90 mcg/actuation inhaler INHALE 2 PUFFS EVERY 4 HOURS NEEDED FOR FOR DYSPNEA zolpidem (AMBIEN) 5 mg tablet Take 1 tablet (5 mg total) by mouth at bedtime as needed for sleep. documented as of this encounter Discharge Disposition Disposition Code Departure Means Destination Home or Self Care documented in this encounter Plan of Treatment Upcoming Encounters Date Type Department Care Team (Late st Contact Info) Description 05/29/2025 3:00 PM EDT Office Visit Pulmonology - [address] [address] Rosy Rhodes MD [address] [place] [phone] documented as of this encounter Procedures Procedure Name Priority Date/Time Associated Diagnosis Comments XR CHEST 2 VIEWS STAT 05/01/2025 4:36 PM EDT Bilateral pleural effusion documented in this encounter Results * XR Chest 2 Views (05/01/2025 4:36 [...] Signed Date: 05/01/2025 16:41 ET Workstation ID: [id number] Transcribed By: Self Edit Transcribed Date: 05/01/2025 [...] Signed Date: 05/01/2025 16:41 ET Workstation ID: [id number] Transcribed By: Self Edit Transcribed Date: 05/01/2025 16:41 ET us Rosy Rhodes MD IMG XR PROCEDURES Final Re sult documented in this encounter Visit Diagnoses Diagnosis Bilateral pleural effusion Unspecified pleural effusion documented in this encounter Care Teams Nitrator Operator Relationship Specialty Start Date End Date Mychal Long MD [address] [place] [address] [place] [address] PCP - General 12/26/11 documented as of this encounter
--- NOTE | 2025-05-07 16:09 | PFT_ITS ---
Flows: FEV1: 69 % of predicted at 1.78 L FVC: 64 % of predicted at 2.05 L FEV1/FVC: 87 % Bronchodilator response: Absent Volumes: Total lung capacity: 61 % of predicted at 3.03 L Residual volume: 64 % of predicted at 0.98 L Slow vital capacity: 59 % of predicted at 2.05 L Expiratory reserve volume: 56 % of predicted at 0.50 L Diffusion capacity: Moderately decreased, corrects to normal after adjustment for alveolar ventilation. Impression: Moderate restrictive ventilatory defect with no bronchodilator response. Decreased expiratory reserve volume suggests extrathoracic restriction likely secondary to abdominal obesity. Combination of restrictive ventilatory defect with decreased diffusion capacity suggests underlying pulmonary parenchymal disease. Clinical correlation is advised. MTDD
--- OUTSIDE RECORDS SUMMARY | 2025-05-07 16:17 | XMS_ITS | Encounter Summary ---
Author Organization [employer] Address [address] [place] [address] [address] [place] [address] Care Team Providers Care Commercial Lending Assistant Name Role Phone Mychal Fields MD Primary Care Provide r Hima Fam Unavailable Unavailable Yaneth Dotson RN Unavailable [phone] Mckenzie Silverio Unavailable Encounter Details Date Type Department Care Team (Late st Contact Info) Description 06/11/2023 Orders Only [facility] MED & PEDS [address] [place], [place] [phone] Veda Isabel LPN Social History Tobacco Use [...] Care Team (Late st Contact Info) Description 07/24/2025 2:00 PM EST Office Visit [facility] MEDICINE [address] [place] [address] Manjeet Deluca MD [address] [place] [address] documented as of this encounter Visit Diagnoses Not on filedocumented in this encounter Additional Health Concerns Assessment Noted Time PHQ-9 Depression Total Score: 0 05/10/20 23 10:38 AM EDT documented as of this encounter Care Teams Commercial Lending Assistant Relationship Specialty Start Date End Date Mychal Fields MD [address] [place] [address] PCP - General Internal Medicine 04/30/14 Hima Fam FNP [address] [place] [address] Nurse Practitioner Family Medicine 08/01/23 Yaneth Dotson, ALAN [address] [place] [address] Registered Nurse Family Medicine 02/24/25 Mckenzie Silverio 02/24/25 [employer] [facility] 02/13/25 03/29/25 documented as of this encounter
--- OUTSIDE RECORDS SUMMARY | 2025-05-07 16:17 | XMS_ITS | Encounter Summary ---
Author Organization [employer] Address [address] [place] [address] [address] [place] [address] Care Team Providers Care Geological Engineer Name Role Phone Mychal Fields MD Primary Care Provide r Hima Fam Unavailable Unavailable Yaneth Dotson RN Unavailable [phone] Mckenzie Silverio Unavailable Reason for Visit * Reason Comments Care Coordination Appt reminder Encounter Details Date Type Department Care Team (Latest Contact Info) Description 05/06/2025 Patient Outreach [facility]INE [address] [place], [place] [phone] Mychal Fields MD [address] [place], [place] [phone] Care Coordination (Appt reminder) Social History Tobacco Use Types Packs/Day Years Used Date Smoking Tobacco: Every Day Cigarettes Passive Smoke Exposure: Current Smokeless Tobacco: Never Alcohol Use Standard Drinks/Week Comments Never 0 (1 standard drink = 0.6 oz pur e alcohol) Depression Answer Date Recorded Patient Health Questionnaire-9 Score 15 04/16/2025 Patient Health Questionnaire-9 Score 15 04/16/2025 Last PHQ-9: Questionnaire Data Not on file 0 04/16/2025 Housing Stability Answer Date Recorded What is [...] Answer Date Recorded Patient Health Questionnaire-2 Score 3 04/16/2025 Internet Access Answer Date Recorded Internet Access [...] encounter Progress Notes * Mckenzie Silverio - 05/06/2025 9:45 AM EDT CHW Mckenzie Silverio placed call to patient to remind of appt on 05/07/25 at [facility] [place] 4pm, PFT. No answer at this, LVM with details of appt and pt1. documented in this encounter Plan of Treatment Upcoming Encounters Date Type Department Care Team (Late st Contact Info) Description 07/24/2025 2:00 PM EST Office Visit [facility] [address] [place] [address] Manjeet Deluca MD [address] [place] [address] documented as of this encounter Visit Diagnoses Not on filedocumented in this encounter Additional Health Concerns Assessment Noted Time PHQ-9 Depression Total Score: 15 025 12:51 PM EDT documented as of this encounter Care Teams Geological Engineer Relationship Specialty Start Date End Date Mychal Fields MD [address] [place] [address] PCP - General Internal Medicine 04/30/14 Hima Fam FNP [address] [place] [address] Nurse Practitioner Family Medicine 08/01/23 Yaneth Dotson, ALAN [address] [place] [address] Registered Nurse Family Medicine 02/24/25 Mckenzie Silverio 02/24/25 documented as of this encounter
--- OUTSIDE RECORDS SUMMARY | 2025-05-07 16:17 | XMS_ITS | Encounter Summary ---
Author Organization [employer] Address [address] [place] [address] 7[address] [place] [address] Care Team Providers Care Pie Filler Name Role Phone Mychal Fields MD Primary Care Provide r Hima Fam Unavailable Unavailable Yaneth Dotson RN Unavailable [phone] Mckenzie Silverio Unavailable Reason for Visit * Reason Comments Med Refill Encounter Details Date Type Department Care Team (Late st Contact Info) Description 07/27/2023 Refill [facility] [address] [place], [place] [phone] Mychal Fields MD [address] [place], [place] [phone] Social History Tobacco Use Types Packs/Day Years Used Date Smoking Tobacco: Never Passive Smoke Exposure: Never Smokeless Tobacco: Never Alcohol Use Standard Drinks/Week Comments Never 0 (1 standard drink = 0.6 oz pur e alcohol) Depression Answer Date Recorded Patient Health Questionnaire-9 Score 0 05/10/2023 Housing Stability Answer Date Recorded What is your housing situation today? I have gee sing 06/26/[address] you li [...] Description 07/24/2025 2:00 PM EST Office Visit [facility] [address] [place] [address] Manjeet Deluca MD [address] [place], [place] documented as of this encounter Visit Diagnoses Not on filedocumented in this encounter Additional Health Concerns Assessment Noted Time PHQ-9 Depression Total Score: 0 05/10/20 23 10:38 AM EDT documented as of this encounter Care Teams Pie Filler Relationship Specialty Start Date End Date Mychal Fields MD [address] [place] [address] PCP - General Internal Medicine 04/30/14 Hima Fam FNP [address] [place], [place] Nurse Practitioner Family Medicine 08/01/23 Yaneth Dotson, ALAN [address] [place] [address] Registered Nurse Family Medicine 02/24/25 Mckenzie Silverio 02/24/25 [employer] [facility] 02/13/25 03/29/25 documented as of this encounter
--- OUTSIDE RECORDS SUMMARY | 2025-05-07 16:17 | XMS_ITS | Encounter Summary ---
Author Organization [employer] Address [address] [place] [address] [address] [place] [address] Care Team Providers Care Headend Technician Name Role Phone Mychal Fields MD Primary Care Provide r Hima Fam Unavailable Unavailable Yaneth Dotson RN Unavailable [phone] Mckenzie Silverio Unavailable Reason for Visit * Reason Onset Date Comments Med Refill 04/30/2025 Encounter Details Date Type Department Care Team ([facility] st Contact Info) Description 04/30/2025 Telephone [facility] [address] [place], [place] [phone] Mychal Fields MD [address] [place], [place] [phone] Med Refill Social History Tobacco Use Types [...] encounter Miscellaneous Notes * Telephone Encounter - Jermaine Blake - 04/30/2025 1:09 PM EDT TC from pt requesting medication refill. Medications needing refill : clonazePAM (KlonoPIN) 1 MG tablet To be sent to: [facility]/pharmacy #[id number] documented in this encounter Plan of Treatment Upcoming Encounters Date Type Department Care Team (Late st Contact Info) Description 07/24/2025 2:00 PM EST Office Visit [facility] [address] [place], [place] [phone] Manjeet Deluca MD [address] [place], [place] [phone] documented as of this encounter Visit Diagnoses Not on filedocumented in this encounter Additional Health Concerns Assessment Noted Time PHQ-9 Depression Total Score: 15 025 12:51 PM EDT documented as of this encounter Care Teams Headend Technician Relationship Specialty Start Date End Date Mychal Fields MD [address] [place] [address] PCP - General Internal Medicine 04/30/14 Hima Fam FNP [address] [place] [address] Nurse Practitioner Family Medicine 08/01/23 Yaneth Dotson, ALAN [address] [place] [address] Registered Nurse Family Medicine 02/24/25 Mckenzie Silverio 02/24/25 documented as of this encounter
--- OUTSIDE RECORDS SUMMARY | 2025-05-07 16:17 | XMS_ITS | Encounter Summary ---
Author Organization [employer] Address [address] [place] [address] 7t [place] [address] Care Team Providers Care Billet Heater Name Role Phone Mychal Fields MD Primary Care Provide r Hima Fam Unavailable Unavailable Yaneth Dotson RN Unavailable [phone] Mckenzie Silverio Unavailable Reason for Visit * Reason Comments Med Refill Encounter Details Date Type Department Care Team (Late st Contact Info) Description 07/27/2023 Refill [facility] MEDICINE [address] [place], [place] [phone] Mychal Fields MD [address] [place], [place] [phone] Social History Tobacco Use Types Packs/Day Years [...] Description 07/24/2025 2:00 PM EST Office Visit [facility] MED[facility] [address] [place] [address] Manjeet Deluca MD [address] [place], [place] documented as of this encounter Visit Diagnoses Not on filedocumented in this encounter Additional Health Concerns Assessment Noted Time PHQ-9 Depression Total Score: 0 05/10/20 23 10:38 AM EDT documented as of this encounter Care Teams Billet Heater Relationship Specialty Start Date End Date Mychal Fields MD [address] [place] [address] PCP - General Internal Medicine 04/30/14 Hima Fam FNP [address] [place], [place] Nurse Practitioner Family Medicine 08/01/23 Yaneth Dotson, ALAN [address] [place] [address] Registered Nurse Family Medicine 02/24/25 Mckenzie Silverio 02/24/25 [employer] [facility] 02/13/25 03/29/25 documented as of this encounter
--- OUTSIDE RECORDS SUMMARY | 2025-05-07 16:17 | XMS_ITS | Encounter Summary ---
Author Organization [employer] Address [address] [place] [address] [address]t [place] [address] Care Team Providers Care Tire Fabric Inspector Name Role Phone Mychal Fields MD Primary Care Provide r Hima Fam Unavailable Unavailable Yaneth Dotson RN Unavailable [phone] Mckenzie Silverio Unavailable Encounter Details Date Type Department Care Team (Late st Contact Info) Description 12/05/2022 Orders Only [facility] MED & PEDS [address] [place], [place] [phone] Veda Isabel LPN Social History Tobacco Use [...] Description 07/24/2025 2:00 PM EST Office Visit [facility] MEDICINE [address] [place], [place] [phone] Manjeet Deluca MD [address] [place], [place] [phone] documented as of this encounter Visit Diagnoses Not on filedocumented in this encounter Additional Health Concerns Assessment Noted Time PHQ-9 Depression Total Score: 7 10/09/19 23 4:00 PM EST documented as of this encounter Care Teams Tire Fabric Inspector Relationship Specialty Start Date End Date Mychal Fields MD [address] [place] [address] PCP - General Internal Medicine 04/30/14 Hima Fam FNP [address] [place] [address] Nurse Practitioner Family Medicine 08/01/23 Yaneth Dotson, ALAN [address] [place] [address] Registered Nurse Family Medicine 02/24/25 Mckenzie Silverio 02/24/25 [employer] [facility] 02/13/25 03/29/25 documented as of this encounter
--- OUTSIDE RECORDS SUMMARY | 2025-05-07 16:17 | XMS_ITS | Encounter Summary ---
Author Organization [email or web address] Address [address] [place] [address] [address] [place] [address] Care Team Providers Care Architecture Drafter Name Role Phone Mychal Fields MD Primary Care Provide r Hima Fam Unavailable Unavailable Yaneth Dotson RN Unavailable [phone] Mckenzie Silverio Unavailable Reason for Visit * Reason Comments Med Change Request Encounter Details Date Type Department Care Team (Late Contact Info) Description 10/19/2022 Refill [facility] MEDICINE [address] [place] [phone] Mychal Fields MD [address] [place] [address] [phone] Fibromyalgia Social History Tobacco Use Types Packs/Day [...] Department Care Team (Late Contact Info) Description 07/24/2025 2:00 PM EST Office Visit [facility] MEDICINE [address] [place] [address] [phone] Manjeet Deluca MD [address] [place], [place] [phone] documented as of this encounter Visit Diagnoses Diagnosis Fibromyalgia Unspecified myalgia and myositis documented in this encounter Additional Health Concerns Assessment Noted Time PHQ-9 Depression Total Score: 7 10/09/19 23 4:00 PM EST documented as of this encounter Care Teams Architecture Drafter Relationship Specialty Start Date End Date Mychal Fields MD [address] [place] [address] PCP - General Internal Medicine 04/30/14 Hima Fam FNP [address] [place] [address] Nurse Practitioner Family Medicine 08/01/23 Yaneth Dotson, ALAN [address] [place] [address] Registered Nurse Family Medicine 02/24/25 Mckenzie Silverio 02/24/25 [employer] [facility] 02/13/25 03/29/25 documented as of this encounter
--- OUTSIDE RECORDS SUMMARY | 2025-05-07 16:17 | XMS_ITS | Encounter Summary ---
Author Organization [employer] Address [address] [place] [address] 7t [place] [address] Care Team Providers Care Band Bias Machine Operator Name Role Phone Mychal Fields MD Primary Care Provide r Hima Fam Unavailable Unavailable Yaneth Dotson RN Unavailable [phone] Mckenzie Silverio Unavailable Reason for Visit * Reason Comments Care Coordination SDOH f/u Encounter Details Date Type Department Care Team (Latest Contact Info) Description 05/05/2025 Patient Outreach [facility] [address] [place], [place] [phone] Mychal Fields MD [address] [place] [address] Care Coordination (SDOH f/u) Social History Tobacco Use Types Packs/Day Years [...] Description 07/24/2025 2:00 PM EST Office Visit [facility] [address] [place] [address] Manjeet Deluca MD [address] [place] [address] documented as of this encounter Visit Diagnoses Not on filedocumented in this encounter Additional Health Concerns Assessment Noted Time PHQ-9 Depression Total Score: 15 025 12:51 PM EDT documented as of this encounter Care Teams Band Bias Machine Operator Relationship Specialty Start Date End Date Mychal Fields MD [address] [place] [address] PCP - General Internal Medicine 04/30/14 Hima Fam FNP [address] [place] [address] Nurse Practitioner Family Medicine 08/01/23 Yaneth Dotson RN [address] [place] [address] [place] [address] Registered Nurse Family Medicine 02/24/25 Mckenzie Silverio 02/24/25 documented as of this encounter
--- OUTSIDE RECORDS SUMMARY | 2025-05-07 16:17 | XMS_ITS | Encounter Summary ---
Author Organization [employer] Address [address] [place] [address] 7t [place] [address] Care Team Providers Care Crusher Operator Name Role Phone Mychal Fields MD Primary Care Provide r Hima Fam Unavailable Unavailable Yaneth Dotson RN Unavailable [phone] Mckenzie Silverio Unavailable Encounter Details Date Type Department Care Team (Late st Contact Info) Description 04/24/2023 Orders Only [facility] [address] [place] [address] [phone] Zena Harley MD [address] [place] [address] [phone] Acquired clavicle deformity (Primary Dx) Social History [...] Description 07/24/2025 2:00 PM EST Office Visit [facility] [address] [place] [address] [phone] Manjeet Deluca MD [address] [place] [address] [phone] Scheduled Orders Name Type Priority Associated Diagnoses [...] PM EDT Narrative 05/14/2023 4:45 PM EDT [address] [address] XRay Report Signed Patient: Elaine Rodas MR#: [id number] : 1970 Acct:[id number] Age/Sex: 52 / F ADM Date: 05/14/23 Loc: .ED Attending Dr: Ordering Physician: Vee Castano NP Date of Service: 05/14/23 Procedure(s): XR chest 2V Accession Number(s): [id number] cc: Mychal Long MD; Vee Castano NP [...] in OV> 05/14/23 1642 DD/ 1624 TD/TT: Quality Assurance Manager: DORITA Procedure Note Donotuseinterpreter, Image - 05/14/2023 [facility] [address] [place] [address] XRay Report Signed Patient: Elaine RodasMR#: [id number] : 1970Acct:[id number] Age/Sex: 52 / FADM Date: 05/14/23 Loc: HO.ED Attending Dr: Ordering Physician: Vee Castano NP Date of Service: 05/14/23 Procedure(s): XR chest 2V Accession Number(s): [id number] cc: Mychal Long MD; Vee Castano AIRLINE STATION AGENT EXAMINATION: XR CHEST CLINICAL INFORMATION: Chest pain [...] in OV> 05/14/23 1642 DD/ 1624 TD/TT: Quality Assurance Manager: DORITA us [facility] External Provider IMG XR PROCEDURES Edited Result - Final * XR Foot 3+ Views Right (05/10/2023 11:44 AM EDT) Anatomical Region Laterality Modality Lower Extremities, Foot Right Radiogra phic Imaging 05/10/2023 11:4 4 AM EDT Narrative 05/10/2023 12:08 PM EDT [facility] [address] [place] [address] XRay Report Signed Patient: Elaine Rodas MR#: [id number] : 1970 Acct:[id number] Age/Sex: 52 / F ADM Date: 05/10/23 Loc: HO.HHCX Attending Dr: Mychal Long MD Ordering Physician: Mychal Long MD Date of Service: 05/10/23 Procedure(s): XR foot RT min 3V Accession Number(s): [id number] cc: Mychal Long MD EXAMINATION: XR FOOT, [...] in OV> 05/10/23 1205 DD/ 1144 TD/TT: Quality Assurance Manager: YULISSA Procedure Note Donotuseinterpreter, Image - 05/10/[address] [address] XRay Report Signed Patient: Elaine RodasMR#: [id number] : 1970Acct:[id number] Age/Sex: 52 / FADM Date: 05/10/23 [facility]: Mychal Long MD Ordering Physician: Mychal Long MD Date of Service: 05/10/23 Procedure(s): XR foot RT min 3V Accession Number(s): [id number] cc: Mychal Long MD EXAMINATION: XR FOOT, [...] in OV> 05/10/23 1205 DD/ 1144 TD/TT: Quality Assurance Manager: YULISSA us Mychal Morris MD IMG XR PROCEDURES Fin al Result * FL Esophagus Barium Swallow w/Air (05/08/2023 10:19 AM EDT) Anatomical Region Laterality Modality Head, Neck Radiographic Hilda ging 05/08/2023 10:1 9 AM EDT Narrative 05/08/2023 4:35 PM EDT [address] [address] Fluoroscopy Report Signed Patient: Elaine Rodas MR#: [id number] : 1970 Acct:[id number] Age/Sex: 52 / F ADM Date: 05/08/23 Loc: [facility] Attending Dr: Mychal Long MD Ordering Physician: Mychal Long MD Date of Service: 05/08/23 Procedure(s): FL barium swallow with air Accession Number(s): [id number] cc: Mychal Long MD EXAMINATION: XR FLUOROSCOPY [...] in OV> 05/08/23 1632 DD/ 1019 TD/TT: Quality Assurance Manager: Procedure Note Donotuseinterpreter, Image - 05/08/2023 [place] [address] Fluoroscopy Report Signed Patient: Elaine RodasMR#: [id number] : 1970Acct:[id number] Age/Sex: 52 / FADM Date: 05/08/23 Loc: HO.XRAY Attending Dr: Mychal Long MD Ordering Physician: Mychal Long MD Date of Service: 05/08/23 Procedure(s): FL barium swallow with air Accession Number(s): [id number] cc: Mychal Long MD EXAMINATION: XR FLUOROSCOPY [...] in OV> 05/08/23 1632 DD/ 1019 TD/TT: Quality Assurance Manager: us Mychal Morris MD IMG FLUOROSCOPY PROCE DURES Final Result documented in this encounter Visit Diagnoses Diagnosis 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
--- OUTSIDE RECORDS SUMMARY | 2025-05-07 16:17 | XMS_ITS | Encounter Summary ---
Author Organization [employer] Address [address] [place] [address] 7t [place] [address] Care Team Providers Care Ict Sales Assistant Name Role Phone Mychal Fields MD Primary Care Provide r Hima Fam Unavailable Unavailable Yaneth Dotson RN Unavailable [phone] Mckenzie Silverio Unavailable Reason for Visit * Reason Comments Med Refill Encounter Details Date Type Department Care Team (Late st Contact Info) Description 10/05/2022 Refill [facility] [address] [place] [address] Hima Fam FNP Anxiety state Social History [...] Visit [facility] [address] [place] [address] Manjeet Deluca MD [address] [place] [address] documented as of this encounter Visit Diagnoses Diagnosis Anxiety state Anxiety state, unspecified documented in this encounter Care Teams Ict Sales Assistant Relationship Specialty Start Date End Date Mychal Fields MD [address] [place] [address] PCP - General Internal Medicine 04/30/14 Hima Fam FNP [address] [place] [address] Nurse Practitioner Family Medicine 08/01/23 Yaneth Dotson RN [address] [place] [address] Registered Nurse Family Medicine 02/24/25 Mckenzie Silverio 02/24/25 [employer] 02/13/25 03/29/25 documented as of this encounter
--- OUTSIDE RECORDS SUMMARY | 2025-05-07 16:17 | XMS_ITS | Encounter Summary ---
Author Organization [employer] Address [address] [place] [address] 7t [place] [address] Care Team Providers Care Hangar Attendant Name Role Phone Mychal Fields MD Primary Care Provide r Hima Fam Unavailable Unavailable Yaneth Dotson RN Unavailable [phone] Mckenzie Silverio Unavailable Reason for Visit * Reason Onset Date Comments PRE OP 11/10/2024 Encounter Details Date Type Department Care Team ([facility] st Contact Info) Description 11/10/2024 Telephone [facility] [address] [place], [place] [phone] Mychal Fields MD [address] [place], [place] [phone] PRE OP Social History Tobacco Use Types [...] No Surgeon's name: Dino Caruso Facility name: [facility] Surgeon's office number: [phone] Surgeon's office fax number: [phone] Contact name (person you spoke with): Karon [...] Description 07/24/2025 2:00 PM EST Office Visit [facility] [address] [place] [address] Manjeet Deluca MD [address] [place] [address] documented as of this encounter Visit Diagnoses Not on filedocumented in this encounter Additional Health Concerns Assessment Noted Time PHQ-9 Depression Total Score: 6 09/16/19 10:06 AM EST documented as of this encounter Care Teams Hangar Attendant Relationship Specialty Start Date End Date Mychal Fields MD [address] [place] [address] PCP - General Internal Medicine 04/30/14 Hima Fam FNP [address] [place] [address] Nurse Practitioner Family Medicine 08/01/23 Yaneth Dotson, ALAN [address] [place] [address] Registered Nurse Family Medicine 02/24/25 Mckenzie Silverio 02/24/25 [employer] 02/13/25 03/29/25 documented as of this encounter
--- OUTSIDE RECORDS SUMMARY | 2025-05-07 16:17 | XMS_ITS | Encounter Summary ---
Author Organization [employer] Address [address] [place] [address] 7t [place] [address] Care Team Providers Care Rubber Ball Finisher Name Role Phone Mychal Fields MD Primary Care Provide r Hima Fam Unavailable Unavailable Yaneth Dotson RN Unavailable [phone] Mckenzie Silverio Unavailable Reason for Visit * Reason Comments Care Management C3CM- f/u call # lvm Encounter Details Date Type Department Care Team ([facility] st Contact Info) Description 05/05/2025 Patient Outreach [facility] [address] [place], [place] [phone] Mychal Fields MD [address] [place], [place] [phone] Care Management (C3CM- f/u call # [id number]) Social History Tobacco Use Types Packs/Day Years [...] as of this encounter Progress Notes * Yaneth Dotson RN - 05/05/2025 9:10 AM EDT HUGO Dotson RN placed outbound call to patient for follow up call. No answer at this time. LVM introducing herself from [facility] CM Department. Requested call back. CM reinforced direct contact information for any additional questions or concerns. Education provided on [facility]In Urgent Care located in Lobby of [facility]. Patient provided with after-hours line for [facility], , which offer night time triage service and option to transfer to coroner technician provider if needed. CM reminded patient of her scheduled PFT at [facility] on 05/07/25 at 4:00pm. Advised that she please f/u with any questions or concerns. CM will attempt another follow up call within 10 days. documented in this encounter Plan of Treatment Upcoming Encounters Date Type Department Care Team (Late st Contact Info) Description 07/24/2025 2:00 PM EST Office Visit [facility] [address] [place] [address] Manjeet Deluca MD [address] [place] [address] documented as of this encounter Visit Diagnoses Not on filedocumented in this encounter Additional Health Concerns Assessment Noted Time PHQ-9 Depression Total Score: 15 025 12:51 PM EDT documented as of this encounter Care Teams Rubber Ball Finisher Relationship Specialty Start Date End Date Mychal Fields MD [address] [place] [address] PCP - General Internal Medicine 04/30/14 Hima Fam FNP [address] [place] [address] Nurse Practitioner Family Medicine 08/01/23 Yaneth Dotson, ALAN [address] [place] [address] Registered Nurse Family Medicine 02/24/25 Mckenzie Silverio 02/24/25 documented as of this encounter
--- OUTSIDE RECORDS SUMMARY | 2025-05-07 16:17 | XMS_ITS | Encounter Summary ---
Author Organization [employer] Address [address] [place] [address] 7 [place] [address] Care Team Providers Care Dish Machine Operator Name Role Phone Mychal Fields MD Primary Care Provide r Hima Fam Unavailable Unavailable Yaneth Dotson RN Unavailable [phone] Mckenzie Silverio Unavailable Reason for Visit * Reason Onset Date Comments Appointment Request 12/04/2022 Encounter Details Date Type Department Care Team ([facility] st Contact Info) Description 12/04/2022 Telephone [facility]INE [address] [place], [place] [phone] Mychal Fields MD [address] [place], [place] [phone] Appointment Request Social History Tobacco Use Types [...] ff/u Bp ) Please contact pt at [phone] * Telephone Encounter - Wesley Collins - 12/04/2022 2:02 PM EDT Tc from pt requesting to r/s appt on 10/19/22 ( ff/u Bp ) Please contact pt at [phone] documented in this encounter Plan of Treatment Upcoming Encounters Date Type Department Care Team (Late st Contact Info) Description 07/24/2025 2:00 PM EST Office Visit [facility] [address] [place] [address] Manjeet Deluca MD [address] [place] [address] documented as of this encounter Visit Diagnoses Not on filedocumented in this encounter Additional Health Concerns Assessment Noted Time PHQ-9 Depression Total Score: 7 10/09/19 4:00 PM EST documented as of this encounter Care Teams Dish Machine Operator Relationship Specialty Start Date End Date Mychal Fields MD [address] [place] [address] PCP - General Internal Medicine 04/30/14 Hima Fam FNP [address] [place] [address] Nurse Practitioner Family Medicine 08/01/23 Yaneth Dotson, ALAN [address] [place] [address] Registered Nurse Family Medicine 02/24/25 Mckenzie Silverio 02/24/25 [employer] 02/13/25 03/29/25 documented as of this encounter
--- OUTSIDE RECORDS SUMMARY | 2025-05-07 16:17 | XMS_ITS | Encounter Summary ---
Author Organization [employer] Address [address] [facility] 7t [place] [address] Care Team Providers Care Potato Chip Frier Name Role Phone Mychal Fields MD Primary Care Provide r Hima Fam Unavailable Unavailable Yaneth Dotson RN Unavailable [phone] Mckenzie Silverio Unavailable Reason for Visit * Reason Comments Med Refill Encounter Details Date Type Department Care Team (Late st Contact Info) Description 10/06/2024 Refill [facility] [address] [place], [place] [phone] Mychal Fields MD [address] [place] [address] Anxiety and depression Social History Tobacco Use [...] Description 07/24/2025 2:00 PM EST Office Visit [facility] [address] [place] [address] Manjeet Deluca MD [address] [place] [address] documented as of this encounter Visit Diagnoses Diagnosis Anxiety and depression documented in this encounter Additional Health Concerns Assessment Noted Time PHQ-9 Depression Total Score: 6 09/16/19 25 10:06 AM EST documented as of this encounter Care Teams Potato Chip Frier Relationship Specialty Start Date End Date Mychal Fields MD [address] [place] [address] PCP - General Internal Medicine 04/30/14 Hima Fam FNP [address] [place] [address] Nurse Practitioner Family Medicine 08/01/23 Yaneth Dotson, ALAN [address] [place] [address] Registered Nurse Family Medicine 02/24/25 Mckenzie Silverio 02/24/25 [employer] 02/13/25 03/29/25 documented as of this encounter
--- OUTSIDE RECORDS SUMMARY | 2025-05-07 16:17 | XMS_ITS | Encounter Summary ---
Author Organization [employer] Address [address] [place] [address] 7t [place] [address] Care Team Providers Care Tire Service Technician Name Role Phone Mychal Fields MD Primary Care Provide r Hima Fam Unavailable Unavailable Yaneth Dotson RN Unavailable [phone] Mckenzie Silverio Unavailable Encounter Details Date Type Department Care Team (Late st Contact Info) Description 12/04/2022 Telephone [facility]INE [address] [place] [phone] Mychal Fields MD [address] [place] [address] [phone] Social History Tobacco Use Types Packs/Day Years [...] Description 07/24/2025 2:00 PM EST Office Visit [facility] [address] [place] [address] [phone] Manjeet Deluca MD [address] [place], [place] [phone] documented as of this encounter Visit Diagnoses Not on filedocumented in this encounter Additional Health Concerns Assessment Noted Time PHQ-9 Depression Total Score: 7 10/09/19 23 4:00 PM EST documented as of this encounter Care Teams Tire Service Technician Relationship Specialty Start Date End Date Mychal Fields MD [address] [place] [address] PCP - General Internal Medicine 04/30/14 Hima Fam FNP [address] [place] [address] Nurse Practitioner Family Medicine 08/01/23 Yaneth Dotson RN [address] [place] [address] Registered Nurse Family Medicine 02/24/25 Mckenzie Silverio 02/24/25 [employer] 02/13/25 03/29/25 documented as of this encounter
--- OUTSIDE RECORDS SUMMARY | 2025-05-07 16:18 | XMS_ITS | Clinical Summary ---
Author Organization [employer] Address [address] [place] [address] [address] [place] [address] Care Team Providers Care Animal Control Supervisor Name Role Phone Mychal Fields MD Primary Care Provide r Hima Fam Unavailable Unavailable Yaneth Dotson RN Unavailable [phone] Mckenzie Silverio Unavailable Allergies Active Allergy Reactions Criticality Noted [...] AN EMPTY STOMACH 180 tablet 023 Active Additional Information Patient not taking.Reported on 03/04/2025 Diclofenac Sodium 1 % gelIndications:Ac quired clavicle deformity Apply topically to affected area four times daily as needed 150 g 023 Active valACYclovir (Valtrex) 500 MG tablet 1 tablet twice a day x 3 days prn outbreak 30 tablet 2 023 Active gabapentin (Neurontin) 100 MG capsuleIndication s:Fibromyalgia TAKE 1 CAPSULE BY MOUTH EVERY 8 HOURS 90 capsule 024 Active Additional Information Patient not taking.Reported on 03/04/2025 hydrOXYzine HCl (Atarax) 25 MG tabletIndications :Anxiety [...] twice a week 42.5 g 024 Active Additional Information Patient not taking.Reported on 03/04/2025 Arnuity Ellipta 100 MCG/ACT inhaler Inhale 1 puff Once per day. 024 Active busPIRone (Buspar) 10 MG tablet Take 1 tablet by mouth if needed in the morning, at noon, and at bedtime (anxiety). 022 Active Emgality 120 MG/ML auto-injector Inject 120 mg under the skin every 30 (thirty) days. 024 Active nicotine polacrilex (Nicorette) 2 MG gum Chew 2 mg every 2 (two) hours if needed. 024 Active rizatriptan IT GENERALIST (Maxalt-IT GENERALIST) 5 MG disintegrating tablet 024 Active terbinafine (LamISIL AT) 1 % creamIndications: Tinea Apply topically 2 times daily. 42 g 1 025 Active Additional Information Patient not taking.Reported on 03/04/2025 varenicline (Chantix) 1 MG tabletIndications :Smoker TAKE 1 TABLET BY MOUTH TWICE A DAY WITH GLASS OF WATER AFTER MEALS 56 tablet 1 025 Active Additional Information Patient not taking.Reported on 03/04/2025 minoxidil (Loniten) 2.5 MG tabletIndications :Androgenic alopecia TAKE 1 TABLET BY MOUTH EVERY MORNING 90 tablet 3 025 Active losartan (Cozaar) 100 MG tablet TAKE 1 TABLET BY MOUTH EVERY DAY 90 tablet 2 025 Active zolpidem (Ambien) 10 MG tabletIndications :Anxiety and depression TAKE 1 TABLET BY MOUTH EVERY DAY AT BEDTIME NEEDED FOR SLEEP 30 tablet 025 Active lidocaine (Lidoderm) 5 % patchIndications: Chronic midline low back pain without sciatica APPLY 1 PATCH TOPICALLY TO SKIN, LEAVE ON FOR 12 HOURS AND OFF FOR 12 HOURS DIRECTED 30 patch 3 025 Active fluticasone (Flonase) 50 MCG/ACT nasal spray SHAKE BEFORE FIRST USE PRIME AFTER USE CLEAN TIP 1 SPRAY INTO EACH NOSTRIL TWICE A DAY 48 mL 025 Active cholecalciferol (Vitamin D-3) 25 MCG (1000 UT) capsuleIndication s:Low vitamin D level Take 1 capsule (25 mcg) by mouth Once per day. 30 capsule 3 025 Active amLODIPine (Norvasc) 10 MG tabletIndications :Essential hypertension TAKE 1 TABLET BY MOUTH EVERY DAY 90 tablet 025 Active clonazePAM (KlonoPIN) 1 MG tabletIndications :Anxiety and depression Take 1 tablet (1 mg) by mouth 3 times daily. 90 tablet 025 Active lidocaine (Lidoderm) 5 % patchIndications: Chronic midline low back pain without sciatica APPLY 1 PATCH TOPICALLY TO SKIN IN THE MORNING. LEAVE ON FOR 12 HOURS AND OFF FOR 12 HOURS DIRECTED 30 patch 3 024 2024 Discontinued amLODIPine (Norvasc) 10 MG tabletIndications :Essential hypertension TAKE 1 TABLET BY MOUTH EVERY DAY 90 tablet 1 025 2024 Discontinued(R eorder (will not trigger notification to Pharmacy)) D3 50 MCG (2000 UT) tabletIndications :Low vitamin D level TAKE 1 TABLET BY MOUTH EVERY DAY 90 tablet 025 2024 Discontinued(D ose adjustment) fluticasone (Flonase) 50 MCG/ACT nasal spray SHAKE BEFORE FIRST USE PRIME AFTER USE CLEAN TIP 1 SPRAY INTO EACH NOSTRIL TWICE A DAY 48 mL 025 2024 Discontinued zolpidem (Ambien) 10 MG tabletIndications :Anxiety and depression Take 1 tablet (10 mg) by mouth if needed at bedtime for sleep. 30 tablet 025 2024 Discontinued clonazePAM (KlonoPIN) 1 MG tabletIndications :Anxiety and depression TAKE 1 TABLET BY MOUTH THREE TIMES A DAY 90 tablet 025 2024 Discontinued(R eorder (will [...] was evaluated by Dr. Wynn at our [facility] who recommended to check D dimer [...] We are trying to get her to [facility] before the lab and xray close but if she is unable, advise ER joe. - Seek medical attention for worsening symptoms. Tobacco use disorder 03/24/2024 Assessment & Plan (03/24/2024 6:26 PM EDT): Encouarged smoking cessation, pt plans to start chantix Chronic thoracic back pain 03/24/2024 Assessment & Plan (03/24/2024 6:27 PM EDT): Prn muscle relaxor rx Abnormal CT of the chest 03/24/2024 Assessment [...] Depression 03/20/2024 Cystocele with uterine prolapse 03/20/2024 Thyroid nodule 03/18/2024 Assessment & Plan (03/24/2024 6:23 PM EDT): Pt reports she has completed thyroid ultrasound at [facility], notes not available at this time [...] EDT): Pelvis exam indicative of this Plan: NURSE DISCHARGE referral Right foot pain 05/10/2023 Assessment & [...] Restrictive lung disease 10/19/2022 Assessment & Plan (04/16/2025 11:54 AM EDT): Here for a f/u Smoker, c/o intermittent wheezing, exam today normal PFTs 12/13/2021 showed: Mild restrictive ventilatory defect with no bronchodilator response except in small to medium airways. Pt evaluated by Pulmonology last seen 03/23/[address] performed in June 2024 revealed stable anterior mediastinal lymphadenopathy/mass measuring 3.1 cm in the largest dimension and pulmonary nodules <2mm, compared to CT chest 2019. 12/2024 revealed a few enlarged and prominent mediastinal lymph nodes, prevascular lymph node measuring 3.3 x 1.[address] discussion of CT results patient was referred to Dr. Kern, thoracic surgery for further evaluation. 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 Assessment & Plan (12/23/2024 1:34 PM EDT): [...] airways. Microscopic hematuria 10/19/2022 Assessment & Plan (04/16/2025 11:50 AM EDT): Pt with previous c/o right sided flank pain, Urine dipstick positive for blood Seen in the past by Urology Renal U/S 11/07/2023 Normal Patient was seen by Urology 11/30/[address] Urogram. Seen again 03/2025 underwent cystoscopy that was normal Assessment & Plan (12/23/2024 1:38 PM EDT): [...] tolerate NSAIDS Patient was eventually seen at [facility] neurology 04/04/2024. They recommended repeat [...] with no good results, cannot tolerate NSAIDS [facility] neurolog[facility] is not accepting new [...] will also be referring to Neurology at [facility] Assessment & Plan (04/03/2023 1:22 [...] who retired Pt has a therapist at [facility] I recommended she speak with therapist about referral to agency psychiatrist, unfortunatelly they do not have any availability In the meantime I will manage medications if necessary. Plan: Continue: clonazePAM (KlonoPIN) 1 MG tablet hydrOXYzine HCl (Atarax) 25 MG tablet zolpidem (Ambien) 10 MG tablet Will refer to our cable machine operator Assessment & Plan (05/15/2024 1:34 PM EDT): Patient has tried many different antidepressants and mood stabilizers but she was intolerant of everything. She is doing reasonably well. Her panic attacks respond to Hydroxyzine 25 mg prn. She takes Clonazepam 1 mg TID prn. And Ambien 10 mg at bedtime. This was prescribed by Hima Fam who recently retired Pt has a therapist at [facility] I recommended she speak with [...] For any issues or concerns, contact [facility]. All her questions were answered and [...] plan. Essential hypertension 06/22/2015 Assessment & Plan (04/16/2025 11:57 AM EDT): Patient here for a follow up She is on: Losartan 100 mg po daily, Norvasc 10 mg po daily Patient to continue taking medications as prescribed. Most recent Lab Results Component Value Date NA 141 03/17/2025 NA 139 08/05/2024 K 3.7 03/17/2025 K 3.9 08/05/2024 CL 109 (H) 03/17/2025 CL 105 08/05/2024 BUN 9 03/17/2025 BUN 13 12/16/2024 CREATININE 1.03 03/17/2025 CREATININE 0.8 03/17/2025 Within normal limits Assessment & Plan (09/16/2024 10:17 AM EST): [...] used to be under the care of crisis intervention specialist who had been prescribing Baclofen Assessment [...] used to be under the care of crisis intervention specialist who had been prescribing tramadol 100mg [...] without neural impingement. Pt was seen at [facility] 04/2023 and has a follow up [...] without neural impingement. Pt was seen at [facility] recently has a follow up recommended [...] neural impingement. Pt will be referred to [facility] Smoker 02/21/2012 Assessment & Plan (04/03/2023 [...] Diagnosed Date Resolved Date Wheeze 03/24/2024 09/16/2024 Chronic otitis externa of right ear 03/24/2024 04/16/2025 Assessment & Plan (03/24/2024 6:24 PM EDT): Mild erythema with sig pruitits, rx as written belwo Abnormal imaging of thyroid 03/23/2024 09/16/2024 Chest pain 03/20/2024 09/16/2024 Contusion of rib on right side 03/20/2024 09/16/2024 LUQ abdominal pain 03/20/2024 Nausea 03/20/2024 09/16/2024 Palpitations 03/20/2024 09/16/2024 Preop examination 03/20/2024 09/16/2024 Right sided abdominal pain 03/20/2024 0 09/16/2024 Stress incontinence 03/20/2024 09/16/19 Chronic headaches 03/20/2024 09/16/2024 Erosive gastritis 03/20/2024 09/16/2024 Restrictive airway disease 03/20/2024 0 09/16/2024 Hypertrophy of lingual tonsil 03/18/2024 04/16/2025 Hypertrophy of tonsils and adenoids 03/18/2024 04/16/2025 Persistent cough 07/12/2023 09/16/2024 Assessment & Plan [...] organization. Date Type Department Care Team Description 05/06/2025 Patient Outreach [facility] [address] [place] [phone] Mychal Fields MD Care Coordination (Appt reminder) 05/05/2025 Patient Outreach [facility] [address] [place] [phone] Mychal Fields MD Care Coordination ([facility] f/u) 05/05/2025 Patient Outreach [facility] [address] [place] [phone] Mychal Fields MD Care Management (C3CM- f/u call # lvm) 04/30/2025 Refill [facility] [address] [place] [address] Noemy Frye RN Anxiety and depression 04/30/2025 Refill [facility] [address] [place] [phone] Mychal Fields MD Essential hypertension 04/30/2025 Telephone [facility] [address] [place] [phone] Mychal Fields MD Med Refill 04/21/2025 Patient Outreach [facility] [address] [place] [address] [phone] Mychal Fields MD Care Coordination (SDOH f/u) 04/21/2025 Patient Outreach [facility] [address] [place] [phone] Mychal Fields MD Care Management (C3CM- f/u call lvm) 04/16/2025 11:30 AM EDT Office Visit [facility] [address] [place] [phone] Mychal Fields MD Microscopic hematuria (Primary Dx); Restrictive lung disease; Essential hypertension; Low vitamin D level 04/16/2025 Travel 04/16/2025 Telephone [facility] [address] [place] [phone] Mychal Fields MD Error (VOID this visit) 04/16/2025 Refill [facility] [address] [place] [phone] Claudette Nassar MD 04/09/2025 Patient Outreach [facility] [address] [place] [phone] Mychal Fields MD Care Management (C3CM- f/u call lvm) 04/09/2025 Patient Outreach [facility] [address] [place] [phone] Mychal Fields MD Care Coordination (Appt reminder) 04/09/2025 Refill [facility] [address] [place] [phone] Mychal Fields MD Chronic midline low back pain without sciatica 04/08/2025 Refill [facility] [address] [facility] [address] [place] [address] Mychal Fields MD Anxiety and depression 04/08/2025 Patient Outreach [facility] [address] [place] [address] Mychal Fields MD Pre-visit Planning (Pre-visit planning - LVM ) 04/05/2025 Refill [facility] [address] [facility] [place] [address] Mychal Fields MD 04/03/2025 Patient Outreach [facility] [address] [place] [address] Mychal Fields MD Care Coordination (Appt reminder) 04/02/2025 Telephone [facility] [address] [place] [address] Mychal Fields MD Care Management (C3CM) 04/01/2025 Patient Outreach [facility] [address] [place] [address] Mychal Fields MD 04/01/2025 Telephone [facility] [address] [place] [address] Mychal Fields MD Care Management (C3CM- f/u call) 04/01/2025 Patient Outreach [facility] [address] [place] [phone] Mychal Fields MD Care Coordination (PT1) 03/31/2025 Patient Outreach [facility] [address] [place] [address] Mychal Fields MD Care Management (C3CM- f/u call #2. lvm) 03/31/2025 Patient Outreach [facility] [address] [place] [address] Mychal Fields MD Care Coordination (PT1) 03/31/2025 Patient Outreach [facility] [address] [place] [phone] Mychal Fields MD Care Coordination (pt1) 03/25/2025 Refill [facility] [address] [place] [address] Mychal Fields MD Anxiety and depression 03/24/2025 Patient Outreach [address] [address] Mychal Fields MD Care Management (C3- 1st f/u call lvm) 03/24/2025 Patient Outreach [address] [address] Mychal Fields MD Care Coordination (SDOH) 03/23/2025 Patient Outreach [address] [phone] Mychal Fields MD 03/20/2025 Patient Outreach [address] [address] Mychal Fields MD Care Coordination (Appt reminder) 03/17/2025 Orders Only [facility] External Provider, [facility] 03/16/2025 Patient Outreach [address] [address] Mychal Fields MD Care Coordination (Appt reminder) 03/05/2025 Patient Outreach [address] [address] Mychal Fields MD Care Coordination (PT1) 03/04/2025 Plan of Care Documentation [address] [address] 03/04/2025 Patient Outreach [address] [address] Mychal Fields MD Care Management (C3- initial assessment/ enrollment) 03/04/2025 Patient Outreach [address] [address] Mychal Fields MD Care Coordination (SDOH/PT1) 03/03/2025 Patient Outreach [address] [address] Mychal Fields MD Care Coordination (CM/CHW outreach) 03/02/2025 Patient Outreach [facility] [address] [place] [address] Mychal Fields MD 03/02/2025 Refill [facility] [address] [place] [address] Mychal Fields MD Anxiety and depression 03/02/2025 Telephone [facility] [address] [place] [address] Mychal Fields MD Medication Question 03/02/2025 Patient Outreach [facility] [address] [place] [address] Mychal Fields MD 02/27/2025 Patient Outreach [facility] [address] [place] [phone] Mychal Fields MD Care Coordination (CM/CHW outreach) 02/25/2025 Refill [facility] [address] [place] [address] Manjeet Deluca MD 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 Patient Outreach [facility] [address] [place] [phone] Mychal Fields MD Care Coordination (CM/CHW outreach) 02/24/2025 Patient Outreach [facility] [address] [place] [phone] Mychal Fields MD Care Coordination (CHW Chart Review) 02/24/2025 Patient Outreach [facility] [address] [place] [phone] Mychal Fields MD Care Management (C3CM- chart review) 02/24/2025 Patient Outreach [facility] [address] [place] [phone] Mychal Fields MD 02/23/2025 Refill [facility] [address] [place] [phone] Mychal Fields MD Anxiety and depression 02/13/2025 Patient Outreach [facility] [address] [place] [address] Mychal Fields MD Transition Of Care (Tcm) (HDF- Unscheduled due to surgery) 02/13/2025 Refill [facility] [address] [place] [address] Cinthya Dover, ANP Smoker 02/06/2025 Orders Only [facility] [address] [place] [address] Mychal Fields MD from Last 3 Months Immunizations Immunization Administration Dates Next Due Influenza injectable quadriv alent preservative free 05/24/2022,09/08/2021,06/09/2020,10/09 Influenza, IIV3, injectable 06/16/2014, 3 Influenza, Split (incl. jason fied surface antigen) 11/16/2016,09/26/2012 Pfizer Covid-19 Vaccine 12+ 06/20/2022, 1 Pfizer Covid-19 Vaccine 12+ matteo-sucrose (Chapman Cap) [...] Sign Reading Time Taken Comments Blood Pressure 132/64 04/16/2025 11:41 AM EDT Pulse 100 04/16/2025 11:41 AM EDT Temperature 36.4 C (97.5 F) 04/16/2025 11:41 AM EDT Respiratory Rate 20 04/16/2025 11:41 AM EDT Oxygen Saturation 98% 12/23/2024 1:15 PM EDT Inhaled Oxygen Concentration - - Weight 96.2 kg (212 lb) 04/16/2025 11:41 AM EDT Height 162.6 cm (5' 4 ) 04/16/2025 11:41 AM EDT Body Mass Index 36.39 04/16/2025 11:41 AM EDT Plan of Treatment Upcoming Encounters Date Type Department Care Team (Late st Contact Info) Description 07/24/2025 2:00 PM EST Office Visit [facility] [address] [place] [address] Manjeet Deluca MD [address] [place] [address] Health Maintenance Due Date Last Done Comments CT Colonography 1970 FIT DNA/Cologuard 1970 FIT 1970 FOBT 1970 Sigmoidoscopy 1970 Hepatitis A Vaccines (1 of 2 - Risk 2-dose series) 1989 Hepatitis B Vaccines (1 of 3 - 19+ 3-dose series) 1989 Pneumococcal Vaccine: 50+ Years (2 of 2 - PCV) 12/27/2012 12/28/2011 Zoster Vaccines (1 of 2) 2020 COVID-19 Vaccine ( season) 2024 06/20/2022, 06/20/2022, 05/17/2021 Influenza Vaccine (#1) 2025 , 09/08/2021, 06/09/2020, Additional history exists Lipid Panel 06/17/2025 06/17/2020 Depression Monitoring 10/17/2025 04/16/2025, 025 Alcohol/Substance Use Screening 12/23/2025 12/23/2024 Disability Screening 12/23/2025 12/23/2024 SDOH Screening 03/04/2026 03/04/2025 Tobacco Screening 04/16/2026 04/16/2025 Mammogram 10/29/2026 10/29/2024, 09/10, 12/17/2018 Colonoscopy 08/30/2027 [...] Diagnosis Comments XR CHEST 2 VIEWS Routine 03/23/2025 2:47 PM EDT HIGH SENSITIVITY TROPONIN I Routine 03/17/2025 7:24 PM EDT HIGH SENSITIVITY TROPONIN I Routine 03/17/2025 6:42 PM EDT B TYPE NATRIURETIC PEPTIDE (BNP) Routine 03/17/2025 6:42 PM EDT COMPREHENSIVE METABOLIC PANEL Routine 03/17/2025 6:42 PM EDT CBC WITH AUTO DIFFERENTIAL Routine 03/17/2025 6:42 PM EDT [id number] NG ENZYME Routine 03/17/2025 2:07 PM EDT MAURICE SCREEN, IFA, W/REFL TITER AND PATTERN Routine 03/17/2025 2:[address] CHEST W CONTRAST Routine 03/17/2025 1 :46 PM EDT POCT CREATININE GFR Routine 03/17/2025 1 :31 PM EDT CYTOPATH-CELL ENHANCED Routine 4:45 PM EDT HEPATITIS C ANTIBODY Routine 11/05/2024 3:21 PM EST HIV 1/2 ANTIGEN/ANTIBODY, FOURTH GENERATION W/RFL Routine 11/05/2024 3:21 PM EST BI MAMMOGRAM SCREENING TOMOSYNTHESIS BILATERAL Routine 10/29/2024 12:58 PM EST HPV MRNA E6/E7 REFLEX TO HPV 16, 18/45 Routine 08/23/2023 2:22 PM EST PAP SMEAR Routine 08/23/2023 2:22 PM EST Postmenopausal bleeding Cervical cancer screening HM COLONOSCOPY Routine 08/30/2022 LIPID PANEL, STANDARD Routine 06/17/2020 3:00 PM EDT from Last 3 Months or Most Recently Relevant to Health Maintenance Results * XR Chest 2 Views (03/23/2025 2:47 PM EDT) Anatomical Region Laterality Modality Chest Radiographic Hilda ging 03/23/2025 2:47 PM EDT Narrative 03/23/2025 3:15 PM EDT [place] [address] XRay Report Signed Patient: Elaine Rodas MR#: [id number] : 1970 Acct:[id number] Age/Sex: 54 / F ADM Date: 03/23/25 Loc: HO.TAD Attending Dr: Amy Zimmerman NP Ordering Physician: Amy Zimmerman NP Date of Service: 03/23/25 Procedure(s): XR chest 2V Accession Number(s): [id number] cc: Mychal Long MD; Amy Zimmerman NP EXAMINATION: XR CHEST CLINICAL INFORMATION: J90 - Pleural effusion, not elsewhere classified COMPARISON: Chest radiograph 09/22/2024. CT chest 02/15/2025. TECHNIQUE: 2 views of the chest were obtained. FINDINGS: The cardiac, hilar, and mediastinal contours are normal. Lungs otherwise small layering bilateral pleural effusions with associated bibasilar discoid and passive atelectasis. Discoid type atelectasis also noted in the left lower lung. Lungs are otherwise clear. There is no pneumothorax. There is no focal osseous or soft tissue abnormality. XR/XR chest 2V IMPRESSION: 1. Small layering pleural effusions with associated bibasilar passive and discoid atelectasis. Electronically signed by: Elias Courtney MD 03/23/2025 03:12 PM EDT RP Dictated By: Elias Courtney MD Signed By: <Electronically signed by Elias Courtney MD in OV> 03/23/25 1512 DD/ 1447 TD/TT: 03/23/25 1501 Iron Molder Helper: Procedure Note Donotuseinterpreter, Image - 03/23/2025 [place] [address] XRay Report Signed Patient: Elaine RodasMR#: [id number] : 1970Acct:[id number] Age/Sex: 54 / FADM Date: 03/23/25 Loc: [facility] Attending Dr: Amy Zimmerman NP Ordering Physician: Amy Zimmerman NP Date of Service: 03/23/25 Procedure(s): XR chest 2V Accession Number(s): [id number] cc: Mychal Long MD; Amy Zimmerman NP EXAMINATION: XR CHEST CLINICAL INFORMATION: J90 - Pleural effusion, not elsewhere classified COMPARISON: Chest radiograph 09/22/2024. CT chest 02/15/2025. TECHNIQUE: 2 views of the chest were obtained. FINDINGS: The cardiac, hilar, and mediastinal contours are normal. Lungs otherwise small layering bilateral pleural effusions with associated bibasilar discoid and passive atelectasis. Discoid type atelectasis also noted in the left lower lung. Lungs are otherwise clear. There is no pneumothorax. There is no focal osseous or soft tissue abnormality. XR/XR chest 2V IMPRESSION: 1. Small layering pleural effusions with associated bibasilar passive and discoid atelectasis. Electronically signed by: Elias Courtney MD 03/23/2025 03:12 PM EDT Dictated By: Elias Courtney MD Signed By: <Electronically signed by Elias Courtney MD in OV> 03/23/25 1512 DD/ 1447 TD/TT: 03/23/25 1501 Iron Molder Helper: [facility] External Provider IMG XR PROCEDURES Final Result * High Sensitivity Troponin I (03/17/2025 7:24 PM EDT) Only the most recent of2 resultswithin the time period is included. [facility] TROPONIN I HIGH SENSITIVITY <2.7 <3.5 - 17.0 ng/L [facility] Comment:The [place] high sens itivity Troponin-I results should beused in conjunction with other diagnostic information suchas ECG, clinical observations and information, and patientsymptoms to aid in the diagnosis of DE. 03/17/2025 7:24 PM EDT 03/17/2025 7:27 PM EDT Generic External Data Provider LAB BLOOD ORDERAB LES Final Result [facility] [address] [place] [phone] * (ABNORMAL) CBC auto differential (03/17/2025 6:42 PM EDT) [facility] White Blood Count 8.9 4.8 - 10.8 X10*3/uL [facility] Red Blood Count 4.08(L) 4.20 - 5.50 X10*6/uL [facility] Hemoglobin 11.9(L) 12.0 - 16.0 g/dl [facility] Hematocrit 34.7(L) 37.0 - 47.0 % [facility] Mean Corpuscular Volume 85.0 80.0 - 98.0 fL [facility] Mean Corpuscular Hemoglobin 29.2 27.0 - 33.0 pg [facility] Mean Corpuscular HGB Conc 34.3 31.0 - 35.0 g/dl [facility] Red Cell Distribution Width 12.9 11.0 - 16.0 % [facility] Platelet Count 276 160 - 400 X10*3/uL [facility] Mean Platelet Volume 9.0(L) 9.4 - 12.3 fL [facility] Neutrophils Percent Auto 46.0 45 - 73 % [facility] Imm Gran Pct Auto 0.1 0.0 - 0.4 % [facility] Lymphocytes Percent Auto 31.5 20 - 40 % [facility] Monocytes Percent Auto 4.0 2 - 11 % [facility] Eosinophils Percent Auto 17.8(H) 0 - 4 % [facility] Basophils Percent Auto 0.6 0 - 2 % [facility] NRBC Pct Auto 0.0 0.0 - 0.2 /100WBC [facility] Neutrophils Absolute Auto 4.1 2.0 - 8.3 x10*3/uL [facility] Imm Gran Abs Auto 0.01 0.00 - 0.03 X10*3/uL [facility] Lymphocytes Absolute Auto 2.8 1.2 - 4.9 X10*3/uL [facility] Monocytes Absolute Auto 0.4 0.1 - 1.2 X10*3/uL [facility] Eosinophils Absolute Auto 1.6(H) 0.0 - 0.4 X10*3/uL [facility] Basophils Absolute Auto 0.1 0.0 - 0.2 X10*3/uL [facility] NRBC Abs Auto 0.000 0.0 - 0.012 X10*3/uL [facility] 03/17/2025 6:42 PM EDT 03/17/2025 6:45 PM EDT us Generic External Data Provider LAB BLOOD ORDERAB LES Final Result [facility] [address] [place] [address] [phone] * B Type Natriuretic Peptide (BNP) (03/17/2025 6:42 PM EDT) B Type Natriuretic Peptide 11 <100 pg/mL [facility] 03/17/2025 6:42 PM EDT 03/17/2025 6:45 PM EDT us Generic External Data Provider LAB BLOOD ORDERAB LES Final Result [facility] [address] [place] [address] [phone] * (ABNORMAL) Comprehensive Metabolic Panel (03/17/2025 6:42 PM EDT) Pathologist [facility] Sodium 141 135 - 145 mmol/L [facility] Potassium 3.7 3.3 - 5.1 mmol/L [facility] Chloride 109(H) 96 - 108 mmol/L [facility] Carbon Dioxide 23 22 - 29 mmol/L [facility] Anion Gap 13 12 - 20 [facility] Urea Nitrogen (BUN) 9 9 - 16 mg/dL [facility] Creatinine, Serum 1.03 0.5 - 1.4 mg/dL [facility] Creatinine Clr Calc Pharmacy 69.1 [facility] Comment:Provided height and weight: 160.02 cm,96.7 kg.eGFR (calculated from the MDRD study equation) and eCrCl(calculated from the Cockcroft-Gault equation) are based ondifferent parameters and may not yield comparable results.If eCrCl result is absurd, please check patient'sheight/weight. Estimated Glomerular Filt Rate 56 [facility] Comment:Chronic Kidney Disea se: Estimated GFR < 60 mL/min/1.81m9Dbqbjs Kidney Disease: Estimated GFR < 15 mL/min/1.73m2 Glucose 137(H) 60 - 115 mg/dL [facility] Calcium 9.1 8.4 - 10.2 mg/dL [facility] Bilirubin, Total 0.2 0.0 - 1.0 mg/dL [facility] Aspartate Amino Transferase 18 5 - 31 U/L [facility] Alanine Aminotransferase 12 0 - 31 U/L [facility] Total Protein 7.2 6.5 - 8.0 g/dL [facility] Albumin Level 3.9 3.5 - 5.0 g/dL [facility] Alkaline Phosphatase 106 39 - 117 U/L [facility] 03/17/2025 6:42 PM EDT 03/17/2025 6:45 PM EDT Generic External Data Provider LAB BLOOD ORDERAB LES Final Result Performing Organization Address [facility] Co de Phone Number [facility] [address] [place] [phone] * Angiotensin -1- Converting Enzyme (03/17/2025 2:07 PM EDT) Pathologist [facility] Angiotensin Converting Enzyme 37.3 9 - 67 U/L [facility] Comment:THIS TEST WAS PERFOR MED AT:[employer] [place] [address]SDSBGGRANSON CALVILLO MD,PHD 03/17/2025 2:07 PM EDT 03/17/2025 2:07 PM EDT Generic External Data Provider LAB BLOOD ORDERAB LES Final Result Performing Organization Address [facility] Co de Phone Number [facility] [address] [place] [phone] * MAURICE Screen,IFA, with Reflex to Titer and Pattern (03/17/2025 2:07 PM EDT) Anti Nuclear Antibody Screen NEGATIVE NEGATIVE [facility] Comment:MAURICE IFA is a first l ine screen for detecting thepresence of up to approximately 150 autoantibodies invarious autoimmune diseases. A negative MAURICE IFA resultsuggests an MAURICE-associated autoimmune disease is notpresent at this time, but is not definitive. If thereis high clinical suspicion for Sjogren's syndrome,testing for anti-SS-A/Ro antibody should be considered.Anti-Cayla-1 antibody should be considered for clinicallysuspected inflammatory myopathies.AC-0: NegativeInternational Consensus on MAURICE Patterns(https://doi.org/10.1515/efxj-8208-7998)For additional information, please refer tohttp://education.nlyte Software/faq/GXK396(This link is being provided for informational/educational purposes only.)THIS TEST WAS PERFORMED AT:[facility] [place] [phone] PRESSLEY MD MAURICE Titer TNP [facility] MAURICE Pattern TNP [facility] MAURICE TITER 2 (REF LAB) [facility] MA[facility]ICE Pattern 2 TNP [facility] MAURICE TITER 3 [facility]ICE PATTERN 3 [facility] 03/17/2025 2:07 PM EDT 03/17/2025 2:07 PM EDT us Generic External Data Provider LAB BLOOD ORDERAB LES Final Result [facility] [address] [place] [phone] * CT Chest w/ Contrast (03/17/2025 1:46 PM EDT) Anatomical Region Laterality Modality Body, Chest Computed Tomogra phy 03/17/2025 1:46 PM EDT Narrative 03/17/2025 2:19 PM EDT [address] [address] [address] Scan Report Signed Patient: Elaine Rodas MR#: [id number] : 1970 Acct:[id number] Age/Sex: 54 / F ADM Date: 03/17/25 Loc: HO.CT Attending Dr: Amy Zimmerman DIRECTOR CLIENT Ordering Physician: Amy Zimmerman NP Date of Service: 03/17/25 Procedure(s): CT chest w IV con Accession Number(s): [id number] cc: Mychal Long MD; Amy Zimmerman DIRECTOR CLIENT Report Number: [id number]: Total DLP = 344.00 mGy-cm EXAMINATION: CT CHEST WITH CONTRAST CLINICAL INFORMATION: Localized enlarged lymph nodes. COMPARISON: December 16, 2024. TECHNIQUE: Multidetector volumetric CT imaging of the chest was obtained after the administration of 65 mL of Omnipaque 350 intravenous contrast without immediate adverse reactions. Axial MIP volume rendering provided. Sagittal and coronal reformatted images were obtained. This CT examination was performed using dose optimization techniques as appropriate, variously including the following: *Automated exposure control *Adjustment of mA and/or kV according to patient size (this includes techniques or standardized protocols for targeted exams where dose is matched to indication/reason for exam; i.e. extremities or head) *Use of iterative reconstruction technique DLP: 344 mGy centimeter. FINDINGS: CARVER HAND: Patient's large body habitus. LUNGS: Linear attenuation abnormalities in the upper lung lobes, right middle lung. Confluent attenuation with air bronchograms in the lung bases. No bronchiectasis. No honeycombing. MEDIASTINUM: No lymphadenopathy. Small pericardial effusion. No pneumomediastinum. No aneurysm or dissection, thoracic aorta. Calcified plaques in the coronary arteries. PLEURA: Bilateral pleural effusions, moderate to large volume. No pneumothorax. No hemothorax. No calcified pleural plaques. AXILLA: No lymphadenopathy. UPPER ABDOMEN: There is a midline incision /scarring extending into the inferior sternum epigastric region without fluid collection. OSSEOUS STRUCTURES: Multilevel spondylosis. No acute fracture or listhesis. No lytic or blastic lesions. CT/CT chest w IV con IMPRESSION: Recent midline incision/scarring inferior to the sternum/epigastric region without fluid collection. Bilateral pleural effusions, moderate volume with mild interstitial lung edema and atelectasis in the lung bases Communicated via [employer] connect to nurse practitioner Amy Zimmerman on March 17, 2025 at 2:16 PM. Fleischner guidelines were followed. Electronically signed by: Ty Strong MD 03/17/2025 02:16 PM EDT RP Dictated By: Ty Olson MD Signed By: <Electronically signed by Ty Contreras MD in OV> 03/17/25 1416 DD/ 1346 TD/TT: 03/17/25 1403 Iron Molder Helper: Procedure Note Donotuseinterpreter, Image - 03/17/[address] [address] [address] Scan Report Signed Patient: Elaine Rodas#: [id number] : 1970Acct:[id number] Age/Sex: 54 / FADM Date: 03/17/25 Loc: HO.CT Attending Dr: Amy Zimmerman NP Ordering Physician: Amy Zimmerman NP Date of Service: 03/17/25 Procedure(s): CT chest w IV con Accession Number(s): [id number] cc: Mychal Long MD; Amy Zimmerman NP Report Number: [id number]: Total DLP = 344.00 mGy-cm EXAMINATION: CT CHEST WITH CONTRAST CLINICAL INFORMATION: Localized enlarged lymph nodes. COMPARISON: December 16, 2024. TECHNIQUE: Multidetector volumetric CT imaging of the chest was obtained after the administration of 65 mL of Omnipaque 350 intravenous contrast without immediate adverse reactions. Axial MIP volume rendering provided. Sagittal and coronal reformatted images were obtained. This CT examination was performed using dose optimization techniques as appropriate, variously including the following: *Automated exposure control *Adjustment of mA and/or kV according to patient size (this includes techniques or standardized protocols for targeted exams where dose is matched to indication/reason for exam; i.e. extremities or head) *Use of iterative reconstruction technique DLP: 344 mGy centimeter. FINDINGS: CARVER HAND: Patient's large body habitus. LUNGS: Linear attenuation abnormalities in the upper lung lobes, right middle lung. Confluent attenuation with air bronchograms in the lung bases. No bronchiectasis. No honeycombing. MEDIASTINUM: No lymphadenopathy. Small pericardial effusion. No pneumomediastinum. No aneurysm or dissection, thoracic aorta. Calcified plaques in the coronary arteries. PLEURA: Bilateral pleural effusions, moderate to large volume. No pneumothorax. No hemothorax. No calcified pleural plaques. AXILLA: No lymphadenopathy. UPPER ABDOMEN: There is a midline incision /scarring extending into the inferior sternum epigastric region without fluid collection. OSSEOUS STRUCTURES: Multilevel spondylosis. No acute fracture or listhesis. No lytic or blastic lesions. CT/CT chest w IV con IMPRESSION: Recent midline incision/scarring inferior to the sternum/epigastric region without fluid collection. Bilateral pleural effusions, moderate volume with mild interstitial lung edema and atelectasis in the lung bases Communicated via [employer] connect to nurse practitioner Amy Zimmerman on March 17, 2025 at 2:16 PM. Fleischner guidelines were followed. Electronically signed by: Ty Strong MD 03/17/2025 02:16 PM EDT Dictated By: Ty Olson MD Signed By: <Electronically signed by Ty Contreras MDin OV> 03/17/25 1416 DD/ 1346 TD/TT: 03/17/25 1403 Iron Molder Helper: [facility] External Provider IMG CT PROCEDURES Final Result * POCT Creatinine GFR (03/17/2025 1:31 PM EDT) POCT Creatinine 0.8 0.5 - 1.4 mg/dL [facility] GFR POC >60 [facility] Comment:Chronic Kidney Disea se: Estimated GFR < 60 mL/min/1.46s8Zsjqvw Kidney Disease: Estimated GFR < 15 mL/min/1.73m2 03/17/2025 1:31 PM EDT 03/19/2025 9:52 AM EDT Narrative [facility] - 03/19/2025 9:55 AM EDT [id number] Mychal Morris MD LAB POINT OF CARE TEST DOCKED DEVICE ORDERABLES Final Result [facility] [address] [place] [address] [phone] * Cytopath-cell enhanced (02/06/2025 4:45 PM EDT) 02/06/2025 4:45 PM EDT 02/09/2025 9:35 AM EDT Narrative [facility] - 02/10/2025 10:50 AM EDT ----- ------- Name: Elaine Rodas Age/Sex: 54/F : 1970 Unit#: [id number] Attend Dr: Rosales Carter MD Re02/06/25 Status: DEP REF Location: .LAB Disch: ----- ------- SPEC : [id number] RECD: 02/09/25 STATUS: RICHARD BLANKLiset NUM: [id number] CHAPIN: 02/06/25-1644 [facility] DR: Mychal Long MD ENTERED: 02/09/25-1118 SP TYPE: Cytology [facility] DR: Rosales Carter MD ORDERED: Cyto-enhanced Diagnosis Urine, cytology: Negative for high-grade urothelial carcinoma. COMMENT: Review of the cytology preparation demonstrates a paucicellular specimen composed of few squames and urothelial cells. Crystals and bacterial colonies are noted. There is no significant atypia seen. Clinical History Urinary tract infection Material Received Urine Gross Description Received is 24 cc of cloudy orange fluid from which a ThinPrep slide is prepared. IHC S/NG Disclaimer NOTE: Unless otherwise stated, all tissue is formalin-fixed and paraffin-embedded. Some or all of the immunohistochemical tests reported herein may have been developed and their performance characteristics determined by [facility]. They have not been cleared or approved by the U.S. Food and Drug Administration (FDA). However, the FDA has determined that such clearance or approval is not necessary. This laboratory is certified under the Clinical Laboratory Improvement Amendments of 1988 (CLIA) as qualified to perform high complexity clinical laboratory testing. Copies To: Rosales Carter MD [facility] [address] [place] [address] Dr. [address] [place], [place] [id number] [email or web address] Mychal Long MD [address] [address] CONTINUED ON NEXT PAGE ----- ------- Name: Elaine Rodas Age/Sex: 54/F : 1970 Unit#: [id number] Attend Dr: Rosales Carter MD Re02/06/25 Status: DEP [facility] Disch: ----- ------- SPEC : [id number] RECD: 02/09/25 STATUS: RICHARD SCHAEFER NUM: [id number] CHAPIN: 02/06/25 [facility] [address]: Mychal Long MD ENTERED: 02/09/25 SP TYPE: Cytology OTHR DR: Rosales Carter MD ORDERED: Cyto-enhanced ----- ------- Signed (signature on file) Samreen Vazquez MD 02/10/25 1050 ----- ------- END OF REPORT us Mychal Morris MD LAB CYTOLOGY ORDERABL ES Final Result Performing Organization Address [facility]/ZIP Co de Phone Number [facility] [address] [place] [phone] * Hepatitis C Ab (11/05/2024 3:21 PM EST) Hepatitis C Antibody Nonreactive Nonreactive [facility] Comment:Antibodies to HCV no t detected; does not exclude early acuteHCV infection. 11/05/2024 3:21 PM EST 11/05/2024 3:21 PM EST Generic External Data Provider LAB BLOOD ORDERAB LES Final Result Performing Organization Address [facility]/ZIP Co de Phone Number [facility] [address] [place] [phone] * HIV-1/2 Antigen and Antibodies, Fourth Generation, with Reflexes (11/05/2024 3:21 PM EST) HIV AB/AG Nonreactive Nonreactive [facility] Comment:HIV-1 p24 Ag and/or HIV-1/HIV-2 Ab not detected.A test result that is nonreactive does not exclude thepossibility of exposure to or infection with HIV-1 and/orHIV-2. Nonreactive results in this assay for individualswith prior exposure to HIV-1 and/or HIV-2 may be due toantigen and antibody levels that are below the limit ofdetection of this assay.The [employer] HIV Ag/Ab Combo assay result andsupplemental assay results should be interpreted inconjunction with the patient's clinical presentation,history and other laboratory results. If the results areinconsistent with clinical evidence, additional testing issuggested to confirm the result. 11/05/2024 3:21 PM EST 11/05/2024 3:21 PM EST us Generic External Data Provider LAB BLOOD ORDERAB LES Final Result Performing Organization Address [facility]/ZIP Co de Phone Number [facility] [address] [place] [address] [phone] * BI Mammogram Screening Tomosynthesis Bilateral (10/29/2024 12:58 PM EST) Anatomical Region Laterality Modality Breast Bilateral Mammography 10/29/2024 12:5 8 PM EST Narrative 11/04/2024 12:41 PM EST [facility] [address] [place] [address] Mammography Report Signed Patient: Elaine Rodas MR#: [id number] : 1970 Acct:[id number] Age/Sex: 53 / F ADM Date: 10/29/24 Loc: HCASITY Attending Dr: Mychal Long MD Ordering Physician: Syed Coreas MD Results: 1Negativ e Date of Service: 10/29/24 Follow Up: 1 Year From Orig inal Mammogram Procedure(s): MM tomosynthesis screening BI Accession Number(s): [id number] cc: Mychal Long MD; Syed Coreas MD [...] by: Shayy Connor DO 11/04/2024 12:38 PM [facility] Dictated By: Shayy Connor DO Signed By: <Electronically signed by Shayy Connor DO in OV> 11/04/24 1238 DD/ 1258 TD/TT: 10/29/24 1315 Iron Molder Helper: Procedure Note Donotuseinterpreter, Image - 11/04/2024 [facility] [address] [place] [address] Mammography Report Signed Patient: Elaine RodasMR#: [id number] : 1970Acct:[id number] Age/Sex: 53 / FADM Date: 10/29/24 Loc: SHAVON[facility] Attending Dr: Mychal Long MD Ordering Physician: Syed Coresa MDResults: 1Negativ e Date of Service: 10/29/24Follow Up: 1 Year From Orig inal Mammogram Procedure(s): MM tomosynthesis screening BI Accession Number(s): [id number] cc: Mychal Long MD; Syed Coreas MD [...] 11/04/24 1238 DD/ 1258 TD/TT: 10/29/24 1315 Iron Molder Helper: us [facility] External Provider IMG BI PROCEDURES Final Result * HPV mRNA E6/E7 w/Reflex to HPV Genotypes 16, 18/45 (08/23/2023 2:22 PM EST) HPV nRNA E6/E7 Not Detected Not Detected [facility] Comment:Methodology: Transcr iption-Mediated AmplificationThis assay detects E6/E7 viral messenger RNA (mRNA) from 14high-risk HPV types (16,18,31,33,35,39,45,51,52,56,58,59,66,68).Cervical sources are required for HPV testing.If a vaginal source from a patient who has had atotal hysterectomy with removal of cervix wassubmitted, please contact the testing laboratoryfor alternative testing options.For additional information, please refer tohttp://education.riskmethods/faq/TCC811m9(This link if provided for information/educational purposes only.)THIS TEST WAS PERFORMED AT:[facility] [place] [phone] PRESSLEY MD HPV mRNA E6/E7 TNP [facility] HPV 16 RNA TNP [facility] HPV 18/45 RNA TNP [facility] 08/23/2023 2:22 PM EST 08/24/2023 9:35 AM EST us Cecily Schwab [facility] CYTOLOGY ORDERABLES F inal Result [facility] [address] [place] [address] [phone] * Pap Smear (08/23/2023 2:22 PM EST) Swab Cervix uteri structure / Unknown 08/23/2023 2:22 PM EST 08/24/2023 9:35 AM EST Narrative [facility] - 09/04/2023 1:23 PM EST ----- ------- Name: Elaine Rodas Age/Sex: 52/F : 1970 Unit#: [id number] Attend Dr: Re08/23/23 Status: PRE REF Location: [facility] Disch: ----- ------- SPEC : [id number] RECD: 08/24/23 STATUS: RICHARD SCHAEFER NUM: [id number] CHAPIN: 08/23/[address] [facility] [address]: CECILY SCHWAB CNM ENTERED: 08/24/23 SP TYPE: Pap Smr OTHR DR: ORDERED: Pap Smear Interpretation Satisfactory for evaluation. No endocervical cells seen. Cytolysis noted. Negative for intraepithelial lesion or malignancy. HPV mRNA E6/E7: NOT DETECTED This assay detects E6/E7 viral messenger RNA (mRNA) from 14 high-risk HPV types (16, 18, 31, 33, 35, 39, 45, 51, 52, 56, 58, 59, 66, 68) HPV testing performed by [facility], [place], [place]. See reference laboratory portion of the EMR for entire report. Clinical Information LMP: Postmenopausal Previous PAP test: Unknown date/findings Other history: Abnormal bleeding Material Received ThinPrep-Cervical ----- ------- Signed (signature on file) NATHAN Medrano (ASCP) 09/04/23 1323 ----- ------- END OF REPORT Cecily Rizzardini CNM LAB CYTOLOGY ORDERABLES F inal Result [facility] [address] [place] [phone] * Hm Colonoscopy (08/30/2022) Colonoscopy Normal Normal Historical Provider HEALTH MAINTENANCE Final Result * (ABNORMAL) LIPID PANEL, STANDARD (06/17/2020 3:00 PM EDT) HDL Cholesterol 53 > OR = 50 mg/dL [facility] Triglycerides 87 <150 mg/dL [facility] Non-HDL Cholesterol 128 <130 mg/dL (calc) [facility] Comment: For patients with diabetes plus 1 major ASCVD risk factor, treating to a non-HDL-C goal of <100 mg/dL (LDL-C of <70 mg/dL) is considered a therapeutic option. Cholesterol, Total 181 <200 mg/dL [facility] LDL Cholesterol 110(H) mg/dL (calc) [facility] Comment: Reference range: <100 Desirable range <100 mg/dL for primary prevention; <70 mg/dL for patients with CHD or diabetic patients with > or = 2 CHD risk factors. LDL-C is now calculated using the Mina-Ruiz calculation, which is a validated novel method providing better accuracy than the Friedewald equation in the estimation of LDL-C. Mina SS et al. ASHUTOSH. 2013;310(19): 1943-3950 (http://education.[employer].com/faq/HQV186) Chol/HDLC Ratio 3.4 <5.0 (calc) [facility] 06/17/2020 3:00 PM EDT Mychal Morris MD LAB BLOOD ORDERABLES Final Result [facility] [address] from Last 3 Months or Most Recently Relevant to Health Maintenance Insurance [facility] C3 Care Teams Animal Control Supervisor Relationship Specialty Start Date End Date Mychal Fields MD [address] [place] [address] PCP - General Internal Medicine 04/30/14 Hima Fam FNP [address] [place], [place] Nurse Practitioner Family Medicine 08/01/23 Yaneth Dotson, ALAN [address] [place] [address] Registered Nurse Family Medicine 02/24/25 Mckenzie Silverio 02/24/25
--- OUTSIDE RECORDS SUMMARY | 2025-05-07 16:18 | XMS_ITS ---
Author Organization [employer] Address [address] [place] [address] [address] [place] [address] Care Team Providers Care Merchandise Flow Manager Name Role Phone Mychal Fields MD Primary Care Provide r Hima Fam PAYROLL PROCESSOR Unavailable Unavailable Ynaeth Dotson RN Unavailable [phone] Mckenzie Silverio Unavailable [facility] Status:Enrolled (Active) Start date:02/24/2025 Enrollment date:03/04/2025 Enrollment reason:ADT Feed Overview ED- Pt went to [facility] ED on 02/23/25. Please outreach for enrollment. Case Team Name Relationship Phone Mckenzie Silverio(Responsible Staff) [phone] Continued Care and Services Coordination
--- OUTSIDE RECORDS SUMMARY | 2025-05-07 16:18 | XMS_ITS | Clinical Summary ---
Author Organization [facility] [address] [facility] Address [address] [place] [address] Phone Care Team Providers Care Fund Manager Name Role Phone Mychal Long MD Primary [...] her lung cancer screening program here at [facility] with her LDCT due December 2025. Patient may follow-up with us here in thoracic surgery on an as-needed basis going forward. Resolved Problems Problem Noted Date Diagnosed Date Resolved Date Mediastinal mass 01/26/2025 02/26/2025 Mediastinal lymphadenopathy 01/26/2025 02/26/2025 Encounters Date Type Department Care Team Description 05/01/2025 4:31 PM EDT - 05/01/2025 11:59 PM EDT Hospital Encounter [facility] Xray [address] [place] [phone] Bilateral pleural effusion Discharge Disposition: Home or Self Care 05/01/2025 3:00 PM EDT Office Visit Pulmonology - [place] [address] [facility] [address] [place] [phone] Rosy Rhodes MD Bilateral pleural effusion (Primary Dx) 03/25/2025 Telephone Pulmonology - [place] 299 [facility] [address] [place] [phone] Kylie Simons MA 03/24/2025 5:49 PM EDT - 03/24/2025 11:59 PM EDT Hospital Encounter [facility] Xray [address] [place] [address] Bilateral pleural effusion Discharge Disposition: Home or Self Care 03/24/2025 4:00 PM EDT Office Visit Pulmonology - [place] 299 [facility] [address] [place] [phone] Rosy Rhodes MD Bilateral pleural effusion (Primary Dx); Thymic cyst (CMS/HCC V24) 03/02/2025 2:45 PM EDT - 03/02/2025 11:59 PM EDT Hospital Encounter [facility] Ultrasound [address] [place] [address] Pain in both lower extremities Discharge Disposition: Home or Self Care 02/26/2025 10:15 AM EDT Office Visit Thoracic Surgery - [place] [address] [facility] [address] [place] [phone] Silvia Romeo PA Thymic cyst (CMS/HCC V24) (Primary Dx); Pain in both lower extremities; Tobacco abuse 02/26/2025 10:08 AM EDT - 02/26/2025 11:59 PM EDT Hospital Encounter [facility] Xray [address] [place] [address] Mediastinal mass Discharge Disposition: Home or Self Care 02/26/2025 Telephone Thoracic Surgery - [place] [address] [facility] [address] [place] [phone] Teodora Walker MA 02/13/2025 Telephone Thoracic Surgery - [place] [address] [phone] Marlena Morris RN 02/11/2025 8:30 AM EDT - 02/11/2025 12:30 PM EDT Surgery [facility] Main OR [address] [place] [phone] Bessy Kern MD DaVinci thymectomy 02/11/2025 8:29 AM EDT Anesthesia Event [facility] Main OR [address] [place] [phone] Amrita Soto MD Elliott, Barbara J, CRNA 02/11/2025 7:18 AM EDT - 02/12/2025 12:23 PM EDT Hospital Encounter [facility] Intermediate Care Unit B [address] [place] [phone] Bessy Kern MD Bell, Alistair A, MD Mediastinal mass; Mediastinal lymphadenopathy Discharge Disposition: Home-Health Care c from Last 3 Months Surgical History Surgery [...] F) 05/01/2025 2:52 PM EDT Respiratory Rate 14 02/26/2025 10:06 AM EDT Oxygen Saturation 97% 05/01/2025 2:52 PM EDT Inhaled Oxygen Concentration - - Weight 94 kg (207 lb 4.8 oz) 05/01/2025 2:52 PM EDT Height 160 cm (5' 3 ) 05/01/2025 2:52 PM EDT Body Mass Index 36.72 05/01/2025 2:52 PM EDT Plan of Treatment Upcoming Encounters Date Type Department Care Team (Late st Contact Info) Description 05/29/2025 3:00 PM EDT Office Visit Pulmonology - [place] [address] [phone] Rosy Rhodes MD [address] [place] [phone] Health Maintenance Due Date Last Done Comments Breast Cancer Screening 1970 Hepatitis B Vaccines (1 of 3 - 19+ 3-dose series) 1989 Pneumococcal Vaccine: 50+ Years (2 of 2 - PCV) 2020 12/28/2011 Zoster Vaccines (1 of 2) 2020 COVID-19 Vaccine ( - 2023- season) 2024 06/20/2022, 05/17/2021 Colorectal [...] 05/05/2025 8:00 AM EDT Bilateral pleural effusion XR CHEST 2 VIEWS STAT 05/01/2025 4:36 PM EDT Bilateral pleural effusion UT THORACENTESIS PLEURAL SPACE NEEDLE/CATH ASPIRATION W IMAGING GUIDANCE Routine 05/01/2025 4:29 PM EDT Bilateral pleural effusion UT THORACENTESIS PLEURAL SPACE NEEDLE/CATH ASPIRATION W IMAGING GUIDANCE Routine 05/01/2025 4:28 PM EDT Bilateral pleural effusion DIFFERENTIAL BODY [...] 3 :00 PM EDT Bilateral pleural effusion CELL COUNT [...] 05/01/2025 3:00 PM EDT Bilateral pleural effusion UT THORACENTESIS PLEURAL SPACE NEEDLE/CATH ASPIRATION W [...] 8:29 AM EDT Mediastinal mass Mediastinal lymphadenopathy from Last 3 Months Results * Non-gynecologic cytology (05/05/2025 8:05 AM EDT) Only the most recent of3 resultswithin the time period is included. Final Diagnosis Pleural Fluid, Left, Thoracentesis, (ThinPrep, cell block): No malignant cells identified Eosinophils, lymphocytes and histiocytes present 05/05/2025 8:05 AM EDT [facility] Specimen A Adequacy Satisfactory for evaluation 05/05/2025 8:05 AM EDT [facility] Gross Description A. Pleural Cavity, Left, Pleural Cavity Left: Received 400ml of dark cloudy fluid 1 thin prep, 1 cell block Formalin fixation 7.5 put in formalin at 1330 05/05/2025 8:05 AM EDT [facility] Disclaimer Unless otherwise specified, all tissue is 10% NB formalin fixed and paraffin embedded. Technical cytopathology services provided by [facility], at [address] [place] [id number] (CLIA # [id number]/Jose Paula MD, Tunnel Elastic Operator [employer].) 05/05/2025 8:05 AM EDT [facility] Pleural Fluid Structure of left pleural cavity / Unknown 05/04/2025 1:00 PM EDT us Rosy Rhodes MD LAB CYTOLOGY ORDERABLES Fi nal Result [facility] [address] [place] [address], [place] [phone] * XR Chest 2 Views (05/01/2025 4:36 PM EDT) Only the most recent of3 resultswithin the time period is included. Anatomical [...] Signed Date: 05/01/2025 16:41 ET Workstation ID: [id number] Transcribed By: Self Edit Transcribed Date: 05/01/2025 [...] Signed Date: 05/01/2025 16:41 ET Workstation ID: [id number] Transcribed By: Self Edit Transcribed Date: 05/01/2025 16:41 ET us Rosy Rhodes MD IMG XR PROCEDURES Final Re sult * UT THORACENTESIS PLEURAL SPACE NEEDLE/CATH ASPIRATION W IMAGING GUIDANCE (05/01/2025 4:29 PM EDT) Narrative Rosy Rhodes MD - 05/01/2025 4:29 PM EDT Rosy Rhodes MD 05/01/2025 4:49 PM Thoracentesis Date/Time: 05/01/2025 4:29 PM Performed by: Rosy Rhodes MD Authorized by: Rosy Rhodes MD Consent: Consent obtained: Verbal Consent given by: Patient Risks discussed: Bleeding, pneumothorax, pain and infection Alternatives discussed: No treatment [place] protocol: Procedure explained and questions answered [...] midscapular line Intercostal space: 7th Puncture method: Epej-pro-cdnbwu catheter Ultrasound guidance: yes Indwelling catheter placed: no Needle gauge: 20 Catheter size: 8 Fr Number of attempts: 1 Fluid characteristics: serous. Post-procedure details: Post-procedure chest x-ray: pending. Procedure completion: Tolerated well, no immediate complications Comments: 350 mL removed, stopped for no further fluid us Rosy Rhodes MD IN CLINIC/BEDSIDE ORDERABL ES Final Result * UT THORACENTESIS PLEURAL SPACE NEEDLE/CATH ASPIRATION W IMAGING GUIDANCE (05/01/2025 4:28 PM EDT) Narrative Rosy Rhodes MD - 05/01/2025 4:28 PM EDT Rosy Rhodes MD 05/01/2025 4:49 PM Thoracentesis Date/Time: 05/01/2025 4:28 PM Performed by: Rosy Rhodes MD Authorized by: Rosy Rhodes MD Consent: Consent obtained: Verbal Consent given by: Patient Risks discussed: Bleeding, infection, pain and pneumothorax Alternatives discussed: No treatment [place] protocol: Procedure explained and questions answered [...] midscapular line Intercostal space: 7th Puncture method: Ifkq-cuc-wjdwat catheter Ultrasound guidance: yes Indwelling catheter placed: no Needle gauge: 20 Catheter size: 8 Fr Number of attempts: 1 Drainage characteristics: Cloudy (serous) Post-procedure details: Post-procedure chest x-ray: pending. Procedure completion: Tolerated well, no immediate complications Comments: 450 mL removed, stopped for not further fluid. us Rosy Rhodes MD IN CLINIC/BEDSIDE ORDERABL ES Final Result * Cell count with reflex differential, body fluid (05/01/2025 3:00 PM EDT) Only the most recent of3 resultswithin the time period is included. Body Fluid Total Nucleated Cells 3,133 /mm3 LAB HEMETOLOGY METHOD 05/01/2025 6:48 PM EDT [facility] Body Fluid RBC 4,000 /mm3 LAB HEMETOLOGY METHOD 05/01/2025 6:48 PM EDT [facility] Body Fluid Color Yellow 05/01/2025 6:48 PM EDT [facility] Body Fluid Clarity Cloudy 05/01/2025 6:48 PM EDT [facility] Body Fluid Source Pleural 05/01/2025 6:48 PM EDT [facility] Comment:Left Pleural Fluid Structure of left pleural cavity / Unknown 05/01/2025 3:00 PM EDT 05/01/2025 4:48 PM EDT Narrative [facility] - 05/01/2025 6:48 PM EDT No reference ranges have been established for body fluids. Clinical correlation recommended. Rosy Rhodes MD LAB BODY FLUIDS AND STOOLS ORDERABLES Final Result Performing Organization Address [facility] de Phone Number [facility] [address] [place] [address], [place] [phone] * Culture body fluid with gram stain (05/01/2025 3:00 PM EDT) Only the most recent of3 resultswithin the time period is included. Fluid Culture No growth at 3 days LAB MICROBIOLOGY METHOD 05/04/2025 11:15 AM EDT [facility] Gram Stain Result No polymorphonuclear leukocytes, No epithelial cells, and No organisms noted 05/04/2025 11:15 AM EDT [facility] Pleural Fluid Structure of left pleural cavity / Unknown Non-blood Collection / Unknown 05/01/2025 3:00 PM EDT 05/01/2025 4:48 PM EDT Rosy Rhodes MD LAB MICROBIOLOGY - GENERAL ORDERABLES Final Result Performing Organization Address [facility] de Phone Number [facility] [address] [place] [address], [place] [phone] * Differential body fluid (05/01/2025 3:00 PM EDT) Only the most recent of3 resultswithin the time period is included. Fluid Neutrophils % 7 % 05/01/2025 6:44 PM EDT [facility] Fluid Lymphocytes % 42 % 05/01/2025 6:44 PM EDT [facility] Fluid Monocytes/Macrop hages 23 % 05/01/2025 6:44 PM EDT [facility] Fluid Eosinophils % 28 % 05/01/2025 6:44 PM EDT [facility] Fluid Basophils % 0 % 05/01/2025 6:44 PM EDT [facility] Fluid Other Cells % 0 % 05/01/2025 6:44 PM EDT [facility] Pleural Fluid Structure of left pleural cavity / Unknown 05/01/2025 3:00 PM EDT 05/01/2025 4:48 PM EDT Narrative [facility] - 05/01/2025 6:44 PM EDT No reference ranges have been established for body fluids. Clinical correlation recommended. Rosy Rhodes MD LAB BODY FLUIDS AND STOOLS ORDERABLES Final Result Performing Organization Address [facility] Co de Phone Number [facility] [address] [place] [address], [place] [phone] * Protein, body fluid (05/01/2025 3:00 PM EDT) Only the most recent of3 resultswithin the time period is included. Protein, Fluid 5.2 See Comment g/dL LAB CHEMISTRY METHOD 05/01/2025 5:33 PM EDT [facility] Pleural Fluid Structure of left pleural cavity / Unknown Non-blood Collection / Unknown 05/01/2025 3:00 PM EDT 05/01/2025 4:48 PM EDT Narrative [facility] - 05/01/2025 5:33 PM EDT No reference ranges have been established for body fluids. Clinical correlation recommended. us Rosy Rhodes MD LAB BODY FLUIDS AND STOOLS ORDERABLES Final Result Performing Organization Address City/[facility]/ZIP Co de Phone Number [facility] [address] [place] [address], [place] [phone] * Lactate dehydrogenase, body fluid (05/01/2025 3:00 PM EDT) Only the most recent of3 resultswithin the time period is included. LD, Fluid 587 See Comment unit/L LAB CHEMISTRY METHOD 05/01/2025 5:33 PM EDT [facility] Pleural Fluid Structure of left pleural cavity / Unknown Non-blood Collection / Unknown 05/01/2025 3:00 PM EDT 05/01/2025 4:48 PM EDT Narrative [facility] - 05/01/2025 5:33 PM EDT No reference ranges have been established for body fluids. Clinical correlation recommended. Rosy Rhodes MD LAB BODY FLUIDS AND STOOLS ORDERABLES Final Result Performing Organization Address [facility]/ZIP Co de Phone Number [facility] [address] [place] [address], [place] [phone] * Glucose, body fluid (05/01/2025 3:00 PM EDT) Only the most recent of3 resultswithin the time period is included. Pathologist [facility] Glucose, Fluid 103 See Comment mg/dL LAB CHEMISTRY METHOD 05/01/2025 5:33 PM EDT [facility] Pleural Fluid Structure of left pleural cavity / Unknown Non-blood Collection / Unknown 05/01/2025 3:00 PM EDT 05/01/2025 4:48 PM EDT Narrative [facility] - 05/01/2025 5:33 PM EDT No reference ranges have been established for body fluids. Clinical correlation recommended. Rosy Rhodes MD LAB BODY FLUIDS AND STOOLS ORDERABLES Final Result Performing Organization Address City/[facility]/ZIP Co de Phone Number [facility] [address] [place] [address], [place] [phone] * UT THORACENTESIS PLEURAL SPACE NEEDLE/CATH ASPIRATION [...] infection and pneumothorax Alternatives discussed: No treatment [place] protocol: Procedure explained and questions answered [...] midscapular line Intercostal space: 8th Puncture method: Nmmv-mwp-lwztlk catheter Ultrasound guidance: yes Indwelling catheter placed: no Needle gauge: 22 Catheter size: 8 Fr Number of attempts: 1 Fluid characteristics: serous. Post-procedure details: Chest x-ray performed: yes Procedure completion: Tolerated well, no immediate complications Comments: 600 mL drained serous fluid, stopped for no further drainage. Patient had no pain with drainage. Rosy Rhodes MD IN CLINIC/BEDSIDE ORDERABL ES Final Result * Pathology review, body fluid (03/24/2025 5:33 PM EDT) Pathologist review Body Fluid Cytocentrifuge prep: -Negative for malignancy 03/25/2025 8:49 AM EDT [facility] Pleural Fluid Structure of right pleural cavity / Unknown Non-blood Collection / Unknown 03/24/2025 5:33 PM EDT 03/24/2025 5:45 PM EDT Rosy Rhodes MD LAB BODY FLUIDS AND STOOLS ORDERABLES Final Result Performing Organization Address [facility]/ZIP Co de Phone Number [facility] [address] [place] [address], [place] [phone] * Triglycerides, body fluid (03/24/2025 5:33 PM EDT) Triglycerides , Fluid 36 See Comment mg/dL LAB CHEMISTRY METHOD 03/25/2025 12:15 PM EDT [facility] Pleural Fluid Structure of right pleural cavity / Unknown Non-blood Collection / Unknown 03/24/2025 5:33 PM EDT 03/24/2025 5:45 PM EDT Narrative [facility] - 03/25/2025 12:15 PM EDT No reference ranges have been established for body fluids. Clinical correlation recommended. Rosy Rhodes MD LAB BODY FLUIDS AND STOOLS ORDERABLES Final Result Performing Organization Address [facility] Co de Phone Number [facility] [address] [place] [address], [place] [phone] * External CT Report (03/17/2025) Anatomical Region [...] Signed Date: 03/02/2025 15:18 ET Workstation ID: [id number] Transcribed By: Self Edit Transcribed Date: 03/02/2025 [...] Signed Date: 03/02/2025 15:18 ET Workstation ID: [id number] Transcribed By: Self Edit Transcribed Date: 03/02/2025 15:17 ET us Silvia RED CV VASCULAR PROCEDURES Final Result * (ABNORMAL) CBC - Every 3 Days (02/12/2025 6:18 AM EDT) WBC 16.2(H) 4.8 - 10.8 K/[facility] HEMETOLOGY METHOD 02/12/2025 7:11 AM EDT [facility] RBC 3.80 3.80 - 4.80 M/[facility] HEMETOLOGY METHOD 02/12/2025 7:11 AM [facility] Hemoglobin 11.4(L) 11.5 - 16.0 g/dL LAB HEMETOLOGY METHOD 02/12/2025 7:11 AM [facility] Hematocrit 34.5(L) 35.0 - 47.0 % LAB HEMETOLOGY METHOD 02/12/2025 7:11 AM [facility] MCV 90.3 79.0 - 98.0 FL LAB HEMETOLOGY METHOD 02/12/2025 7:11 AM [facility] MCH 29.8 27.0 - 32.0 pcg LAB HEMETOLOGY METHOD 02/12/2025 7:11 AM [facility] MCHC 33.0 32.0 - 37.0 g/dL LAB HEMETOLOGY METHOD 02/12/2025 7:11 AM [facility] RDW 13.1 11.0 - 15.0 % LAB HEMETOLOGY METHOD 02/12/2025 7:11 AM [facility] Platelets 292 130 - 400 K/mcL LAB HEMETOLOGY METHOD 02/12/2025 7:11 AM [facility] MPV 9.9 7.0 - 11.0 FL LAB HEMETOLOGY METHOD 02/12/2025 7:11 AM [facility] NRBC 0.0 <1.0 % LAB HEMETOLOGY METHOD 02/12/2025 7:11 AM [facility] NRBC Absolute 0.00 <0.10 K/mcL LAB HEMETOLOGY METHOD 02/12/2025 7:11 AM [facility] Blood Venous blood specimen / Unknown Venipuncture / Unknown 02/12/2025 6:18 AM EDT 02/12/2025 6:42 AM EDT Silvia RED LAB BLOOD ORDERABLES Final Re sult Performing Organization Address [facility]/ZIP Co de Phone Number [facility] [address] [place] [address], [place] [phone] * Phosphorus (02/12/2025 6:18 AM EDT) Phosphorus 3.2 2.5 - 4.5 mg/dL LAB CHEMISTRY METHOD 02/12/2025 7:23 AM EDT [facility] Blood Venous blood specimen / Unknown Venipuncture / Unknown 02/12/2025 6:18 AM EDT 02/12/2025 6:42 AM EDT Silvia RED LAB BLOOD ORDERABLES Final Re sult Performing Organization Address [facility] Co de Phone Number [facility] [address] [place] [address], * Magnesium (02/12/2025 6:18 AM EDT) [facility] Magnesium 1.9 1.9 - 2.6 mg/dL LAB CHEMISTRY METHOD 02/12/2025 7:23 AM EDT [facility] Blood Venous blood specimen / Unknown Venipuncture / Unknown 02/12/2025 6:18 AM EDT 02/12/2025 6:42 AM EDT Silvia RED LAB BLOOD ORDERABLES Final Re sult Performing Organization Address City/[facility]/ZIP Co de Phone Number [facility] [address] [place] [address], [place] [phone] * (ABNORMAL) Basic metabolic panel (02/12/2025 6:18 AM EDT) Sodium 138 133 - 145 mmol/L LAB CHEMISTRY METHOD 02/12/2025 7:23 AM EDT [facility] Potassium 4.3 3.5 - 5.5 mmol/L LAB CHEMISTRY METHOD 02/12/2025 7:23 AM [facility] Chloride 107 96 - 110 mmol/L LAB CHEMISTRY METHOD 02/12/2025 7:23 AM [facility] CO2 27 21 - 32 mmol/L LAB CHEMISTRY METHOD 02/12/2025 7:23 AM [facility] Anion Gap 4 3 - 11 LAB CHEMISTRY METHOD 02/12/2025 7:23 AM [facility] Glucose 148(H) 70 - 100 mg/dL LAB CHEMISTRY METHOD 02/12/2025 7:23 AM [facility] BUN 15 5 - 25 mg/dL LAB CHEMISTRY METHOD 02/12/2025 7:23 AM [facility] Creatinine 0.98 0.50 - 1.10 mg/dL LAB CHEMISTRY METHOD 02/12/2025 7:23 AM [facility] eGFR 69 >=60 mL/min/1. 73m2 LAB CHEMISTRY METHOD 02/12/2025 7:23 AM [facility] Comment:Calculation based on the Chronic Kidney Disease Epidemiology Collaboration (CKD-EPI) equation refit without adjustment for race. BUN/Creatinine Ratio 15.3 LAB CHEMISTRY METHOD 02/12/2025 7:23 AM [facility] Calcium 8.9 8.5 - 10.5 mg/dL LAB CHEMISTRY METHOD 02/12/2025 7:23 AM [facility] Blood Venous blood specimen / Unknown Venipuncture / Unknown 02/12/2025 6:18 AM EDT 02/12/2025 6:42 AM EDT us Silvia RED LAB BLOOD ORDERABLES Final Re sult [facility] [address] [place] [address], [place] [phone] * XR Chest 1 View (02/12/2025 5:45 [...] Signed Date: 02/12/2025 08:29 ET Workstation ID: [id number] Transcribed By: Self Edit Transcribed Date: 02/12/2025 [...] Signed Date: 02/12/2025 08:29 ET Workstation ID: [id number] Transcribed By: Self Edit Transcribed Date: 02/12/2025 08:28 ET us Silvia RED IMG XR PROCEDURES Final Resul t * Tissue exam (02/11/2025 9:42 AM EDT) Final Diagnosis A. Sternum, Xiphoid: -BENIGN CARTILAGE, CONSISTENT WITH STERNUM/XIPHOID B. Thymus-thymectom y: -SIMPLE (BENIGN) THYMIC CYSTS (2) 02/13/2025 12:57 PM EDT [facility] Gross Description A. Sternum, Xiphoid: [...] Inking code: Blue-inferior Green-anterior Yellow-right Black-posterior Red-superior Gregory-left Cafe Worker sections are submitted as follows: 1-4, complete [...] piece each [place] 02/13/2025 12:57 PM EDT [facility] Disclaimer Unless otherwise specified, all tissue is 10% NB formalin fixed and paraffin embedded. 02/13/2025 12:57 PM EDT [facility] Bone Bone structure of sternum / Unknown 02/11/2025 9:42 AM EDT 02/11/2025 1:05 PM EDT Tissue specimen (specimen) Thymus gland structure / Unknown 02/11/2025 11:59 AM EDT 02/11/2025 12:20 PM EDT us Bessy Kern MD LAB PATHOLOGY ORDERABLES Final R esult [facility] [address] [place] [address], * TH AN ARTERIAL LINE (CHARGE) (02/11/2025 [...] to verify the correct patient, procedure, equipment, ground support equipment assembler and site/side marked as required. Preparation: Patient [...] prep: alcohol Technique: anatomical landmarks Attempts: 3 us Peter Garces DO ANESTHESIA ORDERABLES Final Result * TH AN ENDOTRACHEAL(NO CHARGE) (02/11/2025 9:32 AM EDT) Chuy Lopez CRNA - 02/11/2025 9:32 AM EDT Chuy Dickson CRNA 02/11/2025 9:33 AM General Information and Staff Patient location during procedure: OR Resident/WELLNESS SPECIALIST: Chuy Dickson CRNA Performed: resident/WELLNESS SPECIALIST/CAA Performed by: Chyu Dickson CRNA Authorized by: Peter Garces DO [...] mask + OA or adjuvant +/- NMBA Peter Garces DO ANESTHESIA ORDERABLES Final Result * Prepare RBC: 2 Units (02/11/2025 8:51 AM EDT) Product Code [id number] 02/12/2025 6:52 AM EDT [facility] Unit Number [id number] [facility]20 [facility]/11/[facility] 9:[facility] Disp[facility] Status Released From Crossmatch 02/12/2025 6:52 AM [facility] Unit ABO Rh OPOS 02/12/2025 6:52 [facility] Unit Expiration Date Time [id number] 02/12/2025 6:52 AM [facility] Unit Blood Type 5100 02/12/2025 6:52 AM [facility] Product Code [id number] 02/12/2025 6:52 [facility] Number [id number] 02/13/20 6:52 [facility] 02/11/2025 9:09 AM [facility] Disp[facility] Status Released From Crossmatch 02/12/2025 6:52 [facility] ABO Rh OPOS 02/12/2025 6:52 AM EDT [facility] Unit Expiration Date Time [id number] 02/12/2025 6:52 AM EDT [facility] Unit Blood Type 5100 02/12/2025 6:52 AM EDT [facility] Blood Venous blood specimen / Unknown 02/11/2025 8:51 AM EDT 02/03/2025 2:31 PM EDT Silvia RED BLOOD BANK PRODUCT ORDERABLES Final Result [facility] [address] [place] [address], from Last 3 Months Insurance MEDICAID - [...] currently active code status orders. Care Teams Fund Manager Relationship Specialty Start Date End Date Mychal Long MD [address] [place] [address] [place] [phone] PCP - General 12/26/11
--- OUTSIDE RECORDS SUMMARY | 2025-05-07 16:18 | XMS_ITS | Encounter Summary ---
Author Organization [employer] Address [address] [place] [address] 7t [place] [address] Care Team Providers Care Biometrics Head Name Role Phone Mychal Fields MD Primary Care Provide r Hima Fam Unavailable Unavailable Yaneth Dotson RN Unavailable [phone] Mckenzie Silverio Unavailable Reason for Visit * Reason Onset Date Comments Nurse Triage 08/05/2024 Encounter Details Date Type Department Care Team ([facility] st Contact Info) Description 08/05/2024 Telephone [facility]INE [address] [place], [place] [phone] Mychal Fields MD [address] [place], [place] [phone] Nurse Triage Social History Tobacco Use Types [...] the past 12 months, has t he [employer], gas, oil or water company threatened to [...] AM EDT documented as of this encounter Functional Status * Over the past 2 weeks, how often have you been bothered by any of the following problems? Question Answer Date of Assessment Author Patient Health Questionnaire -2 Score 3 04/16/2025 12:51 PM EDT Jemima Irizarry MA * Little interest or pleasure in doing things Answer Date of Assessment Author More than half the days 04/16/2025 12:51 PM EDT Jemima Irizarry MA * Feeling down, depressed, or hopeless Answer Date of Assessment Author Several days 04/16/2025 12:51 PM EDT Jemima Irizarry MA * Trouble falling or staying asleep, or sleeping too much Answer Date of Assessment Author More than half the days 04/16/2025 12:51 PM EDT Jemima Irizarry MA * Feeling tired or having little energy Answer Date of Assessment Author Nearly every day 04/16/2025 12:51 PM EDT Jemima Irizarry MA * Poor appetite or overeating Answer Date of Assessment Author More than half the days 04/16/2025 12:51 PM Jemima Howell MA * Feeling bad about yourself - or that you are a failure or have let yourself or your family down Answer Date of Assessment Author Not at all 04/16/2025 12:51 PM Jemima Howell MA * Trouble concentrating on things, such as reading the newspaper or watching television Answer Date of Assessment Author Nearly every day 04/16/2025 12:51 PM Jemima Howell MA * Moving or speaking so slowly that other people could have noticed? Or the opposite - being so fidgety or restless that you have been moving around a lot more than usual. Answer Date of Assessment Author More than half the days 04/16/2025 12:51 PM Jemima Howell MA * Thoughts that you would be better off or hurting yourself in some way Answer Date of Assessment Author Not at all 04/16/2025 12:51 PM Jemima Howell MA * Patient Health Questionnaire-9 Score Answer Date of Assessment Author 15 04/16/2025 12:51 PM Jemima Howell MA * How difficult have these problems made it for you to do your work, take care of things at home, or get along with other people? Answer Date of Assessment Author Very difficult 04/16/2025 12:51 PM Jemima Howell MA * Over the last 2 weeks, how often have you been bothered by any of the following problems? Question Answer Date of Assessment Author Feeling nervous, anxious, or on edge 1 04/16/2025 12:52 PM Jemima Howell MA Not being able to stop or co ntrol worrying 2 04/16/2025 12:52 PM Jemima Howell MA Worrying too much about diff erent things 2 04/16/2025 12:52 PM Jemima Howell MA Trouble relaxing 1 04/16/2025 12:52 PM Jemima Howell MA Being so restless that it is hard to sit still 0 04/16/2025 12:52 PM EDT Jemima Irizarry MA Becoming easily annoyed or irritable 0 04/16/2025 12:52 PM EDT Jemima Irizarry MA Feeling afraid as if somethi ng awful might happen 0 04/16/2025 12:52 PM EDT Jemima Irizarry MA ELDER-7 Total Score 6 04/16/2025 12:52 PM EDT Jemima Irizarry MA documented as of this encounter Miscellaneous Notes [...] for cough.Pt is offered to come to [facility] to be seen by provider, advised this [...] Pt didn't answer. Left message to call [facility] [phone]. Advised will call back in about 15 min. * Telephone Encounter - Adela Jason - 08/05/2024 12:04 PM EST Symptom: Cough Outcome: Schedule an urgent appointment (within 1 hour) or talk to a nurse or provider soon Reason: Wheezing (high-pitched whistling sound) The caller accepted this outcome. Pt was triaged and seen on 07/23 and stated still experiencing same symptoms except for fever. Contact pt at [phone] (malay) documented in this encounter Plan of Treatment Upcoming Encounters Date Type Department Care Team ([facility] st Contact Info) Description 07/24/2025 2:00 PM EST Office Visit [facility] [address] [place] [address] Manjeet Deluca MD [address] [place] [address] documented as of this encounter Visit Diagnoses Not on filedocumented in this encounter Additional Health Concerns Assessment Noted Time PHQ-9 Depression Total Score: 9 01/28/20 24 2:36 PM EDT documented as of this encounter Care Teams Biometrics Head Relationship Specialty Start Date End Date Mychal Fields MD [address] [place] [address] PCP - General Internal Medicine 04/30/14 Hima Fam FNP [address] [place] [address] Nurse Practitioner Family Medicine 08/01/23 Yaneth Dotson RN [address] [place] [address] Registered Nurse Family Medicine 02/24/25 Mckenzie Silverio 02/24/25 [employer] 02/13/25 03/29/25 documented as of this encounter
--- OUTSIDE RECORDS SUMMARY | 2025-05-07 16:18 | XMS_ITS ---
Author Organization [employer] Address [address] [place] [address] 7t [place] [address] Care Team Providers Care Manager Project Name Role Phone Mychal Fields MD Primary Care Provide r Hima Fam Unavailable Unavailable Yaneth Dotson RN Unavailable [phone] Mckenzie Silverio Unavailable CM Complex Status:Enrolled (Active) Start date:02/24/2025 Enrollment date:03/04/2025 Enrollment reason:ADT Feed Overview ED- Pt went to [facility] on 02/23/25. Case Team Name Relationship Phone Yaneth Dotson RN(Responsible Staff) Registered Nurse [phone] Continued Care and Services Coordination
[2025-05-07 16:46] VITALS: PULSE 95; O2SAT 98
== END 2025-05-07 15:59 | disposition home or self-care (01) ==
LOC: HO.RESP 15:58
PROVIDERS: PCP Internal Medicine; Visit Provider Nurse Practitioner Family
DX: J45.909 Unspecified asthma, uncomplicated (principal)
CPT/HCPCS: 94010; 94640; 94727; 94729

== ENCOUNTER → 2025-05-07 16:09 | Outpatient (BNV) | payer MEDICAID, SELFPAY | PROVIDERS: PCP Internal Medicine; Visit Provider Internal Medicine Pulmonary Disease | DX: J98.4 Other disorders of lung (principal) | CPT/HCPCS: 94060; 94727; 94729 ==

== ENCOUNTER 2025-05-12 10:31 | Outpatient (REF) | payer MEDICAID, SELFPAY ==
--- NOTE | ~2025-05-12 | CT_ITS ---
EXAMINATION: CT ANGIOGRAM CHEST CLINICAL INFORMATION: R06.00 - Dyspnea, unspecified COMPARISON: March 17, 2025 February 28, 2024 and June 12, 2024 TECHNIQUE: Multiple axial images were obtained through the chest after the administration of 65 mL of Omnipaque 350 intravenous contrast. Extensive vascular post-processing including two-dimensional and three-dimensional reformatted images were created and reviewed on an independent workstation. This CT examination was performed using dose optimization techniques as appropriate, variously including the following: *Automated exposure control *Adjustment of mA and/or kV according to patient size (this includes techniques or standardized protocols for targeted exams where dose is matched to indication/reason for exam; i.e. extremities or head) *Use of iterative reconstruction technique DLP: 150 mGY*cm FINDINGS: QUALITY OF STUDY/CONTRAST BOLUS: Adequate PULMONARY ARTERIES: No filling defects are identified. THORACIC AORTA: Unremarkable LUNGS AND PLEURA: Small moderate layering pleural effusions are decreased when compared to the prior. Linear atelectasis is present in the lingula, right middle lobe, and posterior left lower lobe on the prior examination has improved. Mild compressive atelectasis is again noted along the interface with pleural effusions in the lower lobes. MEDIASTINUM: There is mildly increased density in the anterior mediastinum that was present on the most recent prior. On the prior studies from 2023, there were masses or enlarged lymph nodes in this region. CORONARY ARTERY CALCIFICATION: Present CHEST WALL/AXILLA: No axillary or internal mammary lymphadenopathy. UPPER ABDOMEN: Unremarkable BONES: Mild degenerative changes are present in the thoracic spine. CT/CT angio chest PE protocol IMPRESSION: No evidence of pulmonary embolus. Small to moderate bilateral pleural effusions have decreased in size since the prior examination. There is also improving subsegmental atelectasis since the prior. There is nonspecific hazy increased density in the anterior superior mediastinum that was also present on the most recent prior. On the prior examinations from 2023, there was adenopathy or nodular masses in this region. Thymic abnormality related to myasthenia gravis should be considered. Correlate clinically. Fleischner guidelines were followed. Electronically signed by: Jose Mcnamara MD 05/12/2025 11:19 AM EDT
--- OUTSIDE RECORDS SUMMARY | 2025-05-12 12:03 | XMS_ITS | Encounter Summary ---
Author Organization [employer] Address [address] [place] [address] 7t [place] [address] Care Team Providers Care Water Resource Specialist Name Role Phone Mychal Fields MD Primary Care Provide r Hima Fam Unavailable Unavailable Yaneth Dotson RN Unavailable [phone] Mckenzie Silverio Unavailable Reason for Visit * Reason Comments Care Coordination SDOH f/u Encounter Details Date Type Department Care Team (Latest Contact Info) Description 05/05/2025 Patient Outreach [facility]INE [address] [place], [place] [phone] Mychal Fields MD [address] [place] [address] Care Coordination (SDOH f/u) Social History Tobacco [...] encounter Progress Notes * Mckenzie Silverio - 05/05/2025 3:06 PM EDT Error documented in this encounter Plan of Treatment Upcoming Encounters Date Type Department Care Team (Late st Contact Info) Description 07/24/2025 2:00 PM EST Office Visit [facility]INE [address] [place] [address] Manjeet Deluca MD [address] [place] [address] documented as of this encounter Visit Diagnoses Not on filedocumented in this encounter Additional Health Concerns Assessment Noted Time PHQ-9 Depression Total Score: 15 025 12:51 PM EDT documented as of this encounter Care Teams Water Resource Specialist Relationship Specialty Start Date End Date Mychal Fields MD [address] [place] [address] PCP - General Internal Medicine 04/30/14 Hima Fam FNP [address] [place] [address] Nurse Practitioner Family Medicine 08/01/23 Yaneth Dotson RN [address] [place] [address] Registered Nurse Family Medicine 02/24/25 Mckenzie Silverio 02/24/25 documented as of this encounter
--- OUTSIDE RECORDS SUMMARY | 2025-05-12 12:03 | XMS_ITS | Encounter Summary ---
Author Organization [employer] Address [address] [place] [address] 7t [place] [address] Care Team Providers Care Mail Officer Name Role Phone Mychal Fields MD Primary Care Provide r Hima Fam Unavailable Unavailable Yaneth Dotson RN Unavailable [phone] Mckenzie Silverio Unavailable Reason for Visit * Reason Comments Med Change Request Encounter Details Date Type Department Care Team (Late Contact Info) Description 10/19/2022 Refill [facility] [address] [place] [address] [phone] Mychal Fields MD [address] [place] [address] [phone] Fibromyalgia Social History Tobacco Use Types Packs/Day [...] Description 07/24/2025 2:00 PM EST Office Visit [facility] [address] [place] [address] [phone] Manjeet Deluca MD [address] [place], [place] [phone] documented as of this encounter Visit Diagnoses Diagnosis Fibromyalgia Unspecified myalgia and myositis documented in this encounter Additional Health Concerns Assessment Noted Time PHQ-9 Depression Total Score: 7 10/09/19 23 4:00 PM EST documented as of this encounter Care Teams Mail Officer Relationship Specialty Start Date End Date Mychal Fields MD [address] [place] [address] PCP - General Internal Medicine 04/30/14 Hima Fam FNP [address] [place] [address] Nurse Practitioner Family Medicine 08/01/23 Yaneth Dotson, ALAN [address] [place] [address] Registered Nurse Family Medicine 02/24/25 Mckenzie Silverio 02/24/25 [employer] 02/13/25 03/29/25 documented as of this encounter
--- OUTSIDE RECORDS SUMMARY | 2025-05-12 12:03 | XMS_ITS | Encounter Summary ---
Author Organization [employer] Address [address] [place] [address] 7 [place] [address] Care Team Providers Care Linoleum Floor Layer Name Role Phone Mychal Fields MD Primary Care Provide r Hima Fam Unavailable Unavailable Yaneth Dotson RN Unavailable [phone] Mckenzie Silverio Unavailable Encounter Details Date Type Department Care Team (Late st Contact Info) Description 12/04/2022 Telephone [facility] MEDICINE [address] [place] [phone] Mychal Fields MD [address] [place] [address] [phone] Social History Tobacco Use Types Packs/Day Years [...] Description 07/24/2025 2:00 PM EST Office Visit [facility] MED[facility]INE [address] [place] [address] [phone] Manjeet Deluca MD [address] [place], [place] [phone] documented as of this encounter Visit Diagnoses Not on filedocumented in this encounter Additional Health Concerns Assessment Noted Time PHQ-9 Depression Total Score: 7 10/09/19 23 4:00 PM EST documented as of this encounter Care Teams Linoleum Floor Layer Relationship Specialty Start Date End Date Mychal Fields MD [address] [place] [address] PCP - General Internal Medicine 04/30/14 Hima Fam FNP [address] [place] [address] Nurse Practitioner Family Medicine 08/01/23 Yaneth Dotson RN [address] [place] [address] Registered Nurse Family Medicine 02/24/25 Mckenzie Silverio 02/24/25 [employer] 02/13/25 03/29/25 documented as of this encounter
--- OUTSIDE RECORDS SUMMARY | 2025-05-12 12:03 | XMS_ITS | Encounter Summary ---
Author Organization [employer] Address [address] [place] [address] 7t [place] [address] Care Team Providers Care E Commerce Retailer Name Role Phone Mychal Fields MD Primary Care Provide r Hima Fam Unavailable Unavailable Yaneth Dotson RN Unavailable [phone] Mckenzie Silverio Unavailable Reason for Visit * Reason Comments Med Refill Encounter Details Date Type Department Care Team (Late st Contact Info) Description 10/05/2022 Refill [facility] [address] [place] [address] Hima Fam FNP Anxiety state Social History [...] [facility] [address] [place] [address] Manjeet Deluca MD [address] [place] [address] documented as of this encounter Visit Diagnoses Diagnosis Anxiety state Anxiety state, unspecified documented in this encounter Care Teams E Commerce Retailer Relationship Specialty Start Date End Date Mychal Fields MD [address] [place] [address] PCP - General Internal Medicine 04/30/14 Hima Fam FNP [address] [place] [address] Nurse Practitioner Family Medicine 08/01/23 Yaneth Dotson RN [address] [place] [address] Registered Nurse Family Medicine 02/24/25 Mckenzie Silverio 02/24/25 [employer] 02/13/25 03/29/25 documented as of this encounter
--- OUTSIDE RECORDS SUMMARY | 2025-05-12 12:03 | XMS_ITS | Encounter Summary ---
Author Organization [employer] Address [address] [facility] 7t [place] [address] Care Team Providers Care Corporate Director Of Pharmacy Name Role Phone Mychal Fields MD Primary Care Provide r Hima Fam Unavailable Unavailable Yaneth Dotson RN Unavailable [phone] Mckenzie Silverio Unavailable Encounter Details Date Type Department Care Team (Late st Contact Info) Description 05/12/2025 Orders Only [facility] External Provider, [facility] Social History Tobacco Use Types Packs/Day [...] Description 07/24/2025 2:00 PM EST Office Visit [facility]ICINE [address] [place] [address] Manjeet Deluca MD [address] [place] [address] documented as of this encounter Procedures Procedure Name Priority Date/Time Associated Diagnosis Comments CTA CHEST PE PROTOCAL Routine 05/12/2025 10:36 AM EDT documented in this encounter Results * CTA Chest PE Protocal (05/12/2025 10:36 AM EDT) Anatomical Region Laterality Modality Body, Chest Computed Tomogra phy 05/12/2025 10:3 6 AM EDT Narrative 05/12/2025 11:22 AM EDT [address] [address] [address] Scan Report Signed Patient: Elaine Rodas MR#: [id number] : 1970 Acct:[id number] Age/Sex: 54 / F ADM Date: 05/12/25 Loc: HO.CT Attending Dr: Amy Zimmerman NP Ordering Physician: Amy Zimmerman NP Date of Service: 05/12/25 Procedure(s): CT angio chest PE protocol Accession Number(s): [id number] cc: Mychal Long MD; Amy Zimmerman NP Report Number: [id number]: Total DLP = 150.00 mGy-cm Reason for Exam: R06.00 - Dyspnea, unspecified EXAMINATION: CT ANGIOGRAM CHEST CLINICAL INFORMATION: R06.00 - Dyspnea, unspecified COMPARISON: March 17, 2025 February 28, 2024 and June 12, 2024 TECHNIQUE: Multiple axial images were obtained through the chest after the administration of 65 mL of Omnipaque 350 intravenous contrast. Extensive vascular post-processing including two-dimensional and three-dimensional reformatted images were created and reviewed on an independent workstation. This CT examination was performed using dose optimization techniques as appropriate, variously including the following: *Automated exposure control *Adjustment of mA and/or kV according to patient size (this includes techniques or standardized protocols for targeted exams where dose is matched to indication/reason for exam; i.e. extremities or head) *Use of iterative reconstruction technique DLP: 150 mGY*cm FINDINGS: QUALITY OF STUDY/CONTRAST BOLUS: Adequate PULMONARY ARTERIES: No filling defects are identified. THORACIC AORTA: Unremarkable LUNGS AND PLEURA: Small moderate layering pleural effusions are decreased when compared to the prior. Linear atelectasis is present in the lingula, right middle lobe, and posterior left lower lobe on the prior examination has improved. Mild compressive atelectasis is again noted along the interface with pleural effusions in the lower lobes. MEDIASTINUM: There is mildly increased density in the anterior mediastinum that was present on the most recent prior. On the prior studies from 2023, there were masses or enlarged lymph nodes in this region. CORONARY ARTERY CALCIFICATION: Present CHEST WALL/AXILLA: No axillary or internal mammary lymphadenopathy. UPPER ABDOMEN: Unremarkable BONES: Mild degenerative changes are present in the thoracic spine. CT/CT angio chest PE protocol IMPRESSION: No evidence of pulmonary embolus. Small to moderate bilateral pleural effusions have decreased in size since the prior examination. There is also improving subsegmental atelectasis since the prior. There is nonspecific hazy increased density in the anterior superior mediastinum that was also present on the most recent prior. On the prior examinations from 2023, there was adenopathy or nodular masses in this region. Thymic abnormality related to myasthenia gravis should be considered. Correlate clinically. Fleischner guidelines were followed. Electronically signed by: Jose Mcnamara MD 05/12/2025 11:19 AM EDT RP Dictated By: Jose Mcnamara MD Signed By: <Electronically signed by Jose Mcnamara MD in OV> 05/12/25 1119 DD/ 1036 TD/TT: 05/12/25 1100 Tour Escort: Procedure Note Donotuseinterpreter, Image - 05/12/[address] [place] [address] [address] Scan Report Signed Patient: Elaine RodasMR#: [id number] : 1970Acct:[id number] Age/Sex: 54 / FADM Date: 05/12/25 Loc: HO.CT Attending Dr: Amy Zimmerman NP Ordering Physician: Amy Zimmerman NP Date of Service: 05/12/25 Procedure(s): CT angio chest PE protocol Accession Number(s): [id number] cc: Mychal Long MD; Amy Zimmerman NP Report Number: [id number]: Total DLP = 150.00 mGy-cm Reason for Exam: R06.00 - Dyspnea, unspecified EXAMINATION: CT ANGIOGRAM CHEST CLINICAL INFORMATION: R06.00 - Dyspnea, unspecified COMPARISON: March 17, 2025 February 28, 2024 and June 12, 2024 TECHNIQUE: Multiple axial images were obtained through the chest after the administration of 65 mL of Omnipaque 350 intravenous contrast. Extensive vascular post-processing including two-dimensional and three-dimensional reformatted images were created and reviewed on an independent workstation. This CT examination was performed using dose optimization techniques as appropriate, variously including the following: *Automated exposure control *Adjustment of mA and/or kV according to patient size (this includes techniques or standardized protocols for targeted exams where dose is matched to indication/reason for exam; i.e. extremities or head) *Use of iterative reconstruction technique DLP: 150 mGY*cm FINDINGS: QUALITY OF STUDY/CONTRAST BOLUS: Adequate PULMONARY ARTERIES: No filling defects are identified. THORACIC AORTA: Unremarkable LUNGS AND PLEURA: Small moderate layering pleural effusions are decreased when compared to the prior. Linear atelectasis is present in the lingula, right middle lobe, and posterior left lower lobe on the prior examination has improved. Mild compressive atelectasis is again noted along the interface with pleural effusions in the lower lobes. MEDIASTINUM: There is mildly increased density in the anterior mediastinum that was present on the most recent prior. On the prior studies from 2023, there were masses or enlarged lymph nodes in this region. CORONARY ARTERY CALCIFICATION: Present CHEST WALL/AXILLA: No axillary or internal mammary lymphadenopathy. UPPER ABDOMEN: Unremarkable BONES: Mild degenerative changes are present in the thoracic spine. CT/CT angio chest PE protocol IMPRESSION: No evidence of pulmonary embolus. Small to moderate bilateral pleural effusions have decreased in size since the prior examination. There is also improving subsegmental atelectasis since the prior. There is nonspecific hazy increased density in the anterior superior mediastinum that was also present on the most recent prior. On the prior examinations from 2023, there was adenopathy or nodular masses in this region. Thymic abnormality related to myasthenia gravis should be considered. Correlate clinically. Fleischner guidelines were followed. Electronically signed by: Jose Mcnamara MD 05/12/2025 11:19 AM EDT Dictated By: Jose Mcnamara MD Signed By: <Electronically signed by Jose Mcnamara MD in OV> 05/12/25 1119 DD/ 1036 TD/TT: 05/12/25 1100 Tour Escort: [facility] External Provider IMG CT PROCEDURES Final Result documented in this encounter Visit Diagnoses Not on filedocumented in this encounter Additional Health Concerns Assessment Noted Time PHQ-9 Depression Total Score: 15 025 12:51 PM EDT documented as of this encounter Care Teams Corporate Director Of Pharmacy Relationship Specialty Start Date End Date Mychal Fields MD [address] [place] [address] PCP - General Internal Medicine 04/30/14 Hima Fam FNP [address] [place] [address] Nurse Practitioner Family Medicine 08/01/23 Yaneth Dotson RN [address] [place] [address] Registered Nurse Family Medicine 02/24/25 Mckenzie Silverio 02/24/25 documented as of this encounter
--- OUTSIDE RECORDS SUMMARY | 2025-05-12 12:03 | XMS_ITS | Encounter Summary ---
Author Organization [employer] Address [address] [place] [address] 7 [place] [address] Care Team Providers Care Electric Stove Mechanic Name Role Phone Mychal Fields MD Primary Care Provide r Hima Fam Unavailable Unavailable Yaneth Dotson RN Unavailable [phone] Mckenzie Silverio Unavailable Reason for Visit * Reason Onset Date Comments Appointment Request 12/04/2022 Encounter Details Date Type Department Care Team ([facility] st Contact Info) Description 12/04/2022 Telephone [facility] [address] [place], [place] [phone] Mychal Fields MD [address] [place], [place] [phone] Appointment Request Social History Tobacco Use Types [...] ff/u Bp ) Please contact pt at [phone] * Telephone Encounter - Wesley Collins - 12/04/2022 2:02 PM EDT Tc from pt requesting to r/s appt on 10/19/22 ( ff/u Bp ) Please contact pt at [phone] documented in this encounter Plan of Treatment Upcoming Encounters Date Type Department Care Team (Late st Contact Info) Description 07/24/2025 2:00 PM EST Office Visit [facility] [address] [place] [address] Majneet Deluca MD [address] [place] [address] documented as of this encounter Visit Diagnoses Not on filedocumented in this encounter Additional Health Concerns Assessment Noted Time PHQ-9 Depression Total Score: 7 10/09/19 4:00 PM EST documented as of this encounter Care Teams Electric Stove Mechanic Relationship Specialty Start Date End Date Mychal Fields MD [address] [place] [address] PCP - General Internal Medicine 04/30/14 Hima Fam FNP [address] [place] [address] Nurse Practitioner Family Medicine 08/01/23 Yaneth Dotson, ALAN [address] [place] [address] Registered Nurse Family Medicine 02/24/25 Mckenzie Silverio 02/24/25 [employer] 02/13/25 03/29/25 documented as of this encounter
--- OUTSIDE RECORDS SUMMARY | 2025-05-12 12:03 | XMS_ITS | Encounter Summary ---
Author Organization [employer] Address [address] [place] [address] 7t [place] [address] Care Team Providers Care Brick And Tile Making Machine Operator Name Role Phone Mychal Fields MD Primary Care Provide r Hima Fam Unavailable Unavailable Yaneth Dotson RN Unavailable [phone] Mckenzie Silverio Unavailable Reason for Visit * Reason Comments Med Refill Encounter Details Date Type Department Care Team (Late st Contact Info) Description 07/27/2023 Refill [facility]INE [address] [place], [place] [phone] Mychal Fields MD [address] [place], [place] [phone] Social History Tobacco Use Types Packs/Day Years [...] Description 07/24/2025 2:00 PM EST Office Visit [facility]INE [address] [place] [address] Manjeet Deluca MD [address] [place], [place] documented as of this encounter Visit Diagnoses Not on filedocumented in this encounter Additional Health Concerns Assessment Noted Time PHQ-9 Depression Total Score: 0 05/10/20 23 10:38 AM EDT documented as of this encounter Care Teams Brick And Tile Making Machine Operator Relationship Specialty Start Date End Date Mychal Fields MD [address] [place] [address] PCP - General Internal Medicine 04/30/14 Hima Fam FNP [address] [place], [place] Nurse Practitioner Family Medicine 08/01/23 Yaneth Dotson, ALAN [address] [place] [address] Registered Nurse Family Medicine 02/24/25 Mckenzie Silverio 02/24/25 [employer] 02/13/25 03/29/25 documented as of this encounter
--- OUTSIDE RECORDS SUMMARY | 2025-05-12 12:03 | XMS_ITS | Encounter Summary ---
Author Organization [employer] Address [address] [place] [address] 7t [place] [address] Care Team Providers Care Marketing Team Lead Name Role Phone Mychal Fields MD Primary Care Provide r Hima Fam Unavailable Unavailable Yaneth Dotson RN Unavailable [phone] Mckenzie Silverio Unavailable Encounter Details Date Type Department Care Team (Late st Contact Info) Description 06/11/2023 Orders Only [facility] CHC MED & PEDS [address] [place], [place] [phone] Veda Isabel LPN Social History Tobacco Use [...] Description 07/24/2025 2:00 PM EST Office Visit [facility] MEDICINE [address] [place] [address] Manjeet Deluca MD [address] [place] [address] documented as of this encounter Visit Diagnoses Not on filedocumented in this encounter Additional Health Concerns Assessment Noted Time PHQ-9 Depression Total Score: 0 05/10/20 23 10:38 AM EDT documented as of this encounter Care Teams Marketing Team Lead Relationship Specialty Start Date End Date Mychal Fields MD [address] [place] [address] PCP - General Internal Medicine 04/30/14 Hima Fam FNP [address] [place] [address] Nurse Practitioner Family Medicine 08/01/23 Yaneth Dotson, ALAN [address] [place] [address] Registered Nurse Family Medicine 02/24/25 Mckenzie Silverio 02/24/25 [facility] 02/13/25 03/29/25 documented as of this encounter
--- OUTSIDE RECORDS SUMMARY | 2025-05-12 12:03 | XMS_ITS | Encounter Summary ---
Author Organization [employer] Address [address] [place] [address] 7t [place] [address] Care Team Providers Care Snowboard Designer Name Role Phone Mychal Fields MD Primary Care Provide r Hima Fam Unavailable Unavailable Yaneth Dotson RN Unavailable [phone] Mckenzie Silverio Unavailable Reason for Visit * Reason Comments Med Refill Encounter Details Date Type Department Care Team (Late st Contact Info) Description 07/27/2023 Refill [facility] MEDICINE [address] [place], [place] [phone] Mychal Fields MD [address] [place], [place] [phone] Social History Tobacco Use Types Packs/Day Years [...] Description 07/24/2025 2:00 PM EST Office Visit [facility] MEDICINE [address] [place] [address] Manjeet Deluca MD [address] [place], [place] documented as of this encounter Visit Diagnoses Not on filedocumented in this encounter Additional Health Concerns Assessment Noted Time PHQ-9 Depression Total Score: 0 05/10/20 23 10:38 AM EDT documented as of this encounter Care Teams Snowboard Designer Relationship Specialty Start Date End Date Mychal Fields MD [address] [place] [address] PCP - General Internal Medicine 04/30/14 Hima Fam FNP [address] [place], [place] Nurse Practitioner Family Medicine 08/01/23 Yaneth Dotson, ALAN [address] [place] [address] Registered Nurse Family Medicine 02/24/25 Mckenzie Silverio 02/24/25 [facility] 02/13/25 03/29/25 documented as of this encounter
--- OUTSIDE RECORDS SUMMARY | 2025-05-12 12:03 | XMS_ITS ---
Author Organization [employer] Address [address] [place] [address] 7t [place] [address] Care Team Providers Care Justowriter Operator Name Role Phone Mychal Fields MD Primary Care Provide r Hima Fam Unavailable Unavailable Yaneth Dotson RN Unavailable [phone] Mckenzie Silverio Unavailable CM Complex Status:Enrolled (Active) Start date:02/24/2025 Enrollment date:03/04/2025 Enrollment reason:ADT Feed Overview ED- Pt went to [facility] on [place]/23/[place]. Case Team Name Relationship Phone Yaneth Dotson RN(Responsible Staff) Registered Nurse [phone] Continued Care and Services Coordination
--- OUTSIDE RECORDS SUMMARY | 2025-05-12 12:03 | XMS_ITS | Encounter Summary ---
Author Organization [employer] Address [address] [place] [address] 7t [place] [address] Care Team Providers Care Building Cleaning Supervisor Name Role Phone Mychal Fields MD Primary Care Provide r Hima Fam Unavailable Unavailable Yaneth Dotson RN Unavailable [phone] Mckenzie Silverio Unavailable Encounter Details Date Type Department Care Team (Late st Contact Info) Description 12/05/2022 Orders Only [facility] CHC MED & PEDS [address] [place], [place] [phone] Veda Isabel LPN Social History Tobacco Use [...] Description 07/24/2025 2:00 PM EST Office Visit [facility] MEDICINE [address] [place], [place] [phone] Manjeet Deluca MD [address] [place], [place] [phone] documented as of this encounter Visit Diagnoses Not on filedocumented in this encounter Additional Health Concerns Assessment Noted Time PHQ-9 Depression Total Score: 7 10/09/19 23 4:00 PM EST documented as of this encounter Care Teams Building Cleaning Supervisor Relationship Specialty Start Date End Date Mychal Fields MD [address] [place] [address] PCP - General Internal Medicine 04/30/14 Hima Fam FNP [address] [place] [address] Nurse Practitioner Family Medicine 08/01/23 Yaneth Dotson, ALAN [address] [place] [address] Registered Nurse Family Medicine 02/24/25 Mckenzie Silverio 02/24/25 [facility] 02/13/25 03/29/25 documented as of this encounter
--- OUTSIDE RECORDS SUMMARY | 2025-05-12 12:03 | XMS_ITS | Encounter Summary ---
Author Organization [employer] Address [address] [place] [address] 7t [place] [address] Care Team Providers Care Heavy Duty Mechanic Name Role Phone Mychal Fields MD Primary Care Provide r Hima Fam Unavailable Unavailable Yaneth Dotson RN Unavailable Mckenzie Silverio Unavailable Reason for Visit * Reason Onset Date Comments Med Refill 04/30/2025 Encounter Details Date Type Department Care Team ([facility] st Contact Info) Description 04/30/2025 Telephone [facility] MEDICINE [address] [place], [place] [phone] Mychal Fields MD [address] [place], [place] [phone] Med Refill Social History Tobacco Use Types [...] 1 MG tablet To be sent to: [facility]/pharmacy #[id number] documented in this encounter Plan of Treatment Upcoming Encounters Date Type Department Care Team (Late st Contact Info) Description 07/24/2025 2:00 PM EST Office Visit [facility] MEDICINE [address] [place], [place] [phone] Manjeet Deluca MD [address] [place], [place] [phone] documented as of this encounter Visit Diagnoses Not on filedocumented in this encounter Additional Health Concerns Assessment Noted Time PHQ-9 Depression Total Score: 15 025 12:51 PM EDT documented as of this encounter Care Teams Heavy Duty Mechanic Relationship Specialty Start Date End Date Mychal Fields MD [address] [place] [address] PCP - General Internal Medicine 04/30/14 Hima Fam FNP [address] [place] [address] Nurse Practitioner Family Medicine 08/01/23 Yaneth Dotson, ALAN [address] [place] [address] Registered Nurse Family Medicine 02/24/25 Mckenzie Silverio 02/24/25 documented as of this encounter
--- OUTSIDE RECORDS SUMMARY | 2025-05-12 12:03 | XMS_ITS ---
Author Organization [employer] Address [address] [place] [address] [address] [place] [address] Care Team Providers Care Stem Threshing Machine Operator Name Role Phone Mychal Fields MD Primary Care Provide r Hima Fam CONTINUING EDUCATION DEAN Unavailable Unavailable Yaneth Dotson RN Unavailable [phone] Mckenzie Silverio Unavailable CH[facility] Complex Status:Enrolled (Active) Start date:02/24/2025 Enrollment date:03/04/2025 Enrollment reason:ADT Feed Overview ED- Pt went to [facility] ED on 02/23/25. Please outreach for enrollment. Case Team Name Relationship Phone Mckenzie Silverio(Responsible Staff) [phone] Continued Care and Services Coordination
--- OUTSIDE RECORDS SUMMARY | 2025-05-12 12:03 | XMS_ITS | Encounter Summary ---
Author Organization [employer] Address [address] [place] [address] 7t [place] [address] Care Team Providers Care Ornament Stitcher Name Role Phone Mychal Fields MD Primary Care Provide r Hima Fam Unavailable Unavailable Yaneth Dotson RN Unavailable [phone] Mckenzie Silverio Unavailable Reason for Visit * Reason Comments Med Refill Encounter Details Date Type Department Care Team (Late st Contact Info) Description 10/06/2024 Refill [facility] CHC MED & PEDS [address] [place], [place] [phone] Mychal Fields MD [address] [place] [address] Anxiety and depression Social History Tobacco Use [...] 2:00 PM EST Office Visit [facility] MEDICINE [address] [place] [address] Manjeet Deluca MD [address] [place] [address] documented as of this encounter Visit Diagnoses Diagnosis Anxiety and depression documented in this encounter Additional Health Concerns Assessment Noted Time PHQ-9 Depression Total Score: 6 09/16/19 25 10:06 AM EST documented as of this encounter Care Teams Ornament Stitcher Relationship Specialty Start Date End Date Mychal Fields MD [address] [place] [address] PCP - General Internal Medicine 04/30/14 Hima Fam FNP [address] [place] [address] Nurse Practitioner Family Medicine 08/01/23 Yaneth Dotson, ALAN [address] [place] [address] Registered Nurse Family Medicine 02/24/25 Mckenzie Silverio 02/24/25 [employer] [facility] 02/13/25 03/29/25 documented as of this encounter
--- OUTSIDE RECORDS SUMMARY | 2025-05-12 12:03 | XMS_ITS | Clinical Summary ---
Author Organization [employer] Address [address] [place] [address] 7[address] [place] [address] Care Team Providers Care Engineering Technical Writer Name Role Phone Mychal Fields MD Primary Care Provide r Hima Fam Unavailable Unavailable Yaneth Dotson RN Unavailable [phone] Mckenzie Silverio Unavailable Allergies Active Allergy Reactions [...] (two) hours if needed. 024 Active rizatriptan DIRECTOR OF MATERNITY SERVICES (Maxalt-DIRECTOR OF MATERNITY SERVICES) 5 MG disintegrating tablet 024 Active terbinafine [...] 3 times daily. 90 tablet 025 Active amLODIPine (Norvasc) 10 MG [...] A DAY 48 mL 025 2024 Discontinued clonazePAM (KlonoPIN) 1 MG [...] was evaluated by Dr. Wynn at our [facility] who recommended to check D dimer given [...] We are trying to get her to [facility] before the lab and xray close [...] reports she has completed thyroid ultrasound at [facility], notes not available at this time Hair [...] EDT): Pelvis exam indicative of this Plan: SPRAY [facility]ENDER referral Right foot pain 05/10/2023 Assessment & [...] pulmonary nodules <2mm, compared to CT chest 12/2024 revealed a few enlarged and prominent [...] tolerate NSAIDS Patient was eventually seen at [facility] neurology 04/04/2024. They recommended repeat brain MRI [...] with no good results, cannot tolerate NSAIDS [facility] neurology is not accepting new patients at the moment. Will try to refer to a different Neurologist perhaps at [facility] Assessment & Plan (01/17/2024 1:06 [...] will also be referring to Neurology at [facility] Assessment & Plan (04/03/2023 1:22 PM EDT): [...] who retired Pt has a therapist at [facility] I recommended she speak with therapist about referral to agency psychiatrist, unfortunatelly they do not have any availability In the meantime I will manage medications if necessary. Plan: Continue: clonazePAM (KlonoPIN) 1 MG tablet hydrOXYzine HCl (Atarax) 25 MG tablet zolpidem (Ambien) 10 MG tablet Will refer to our operations coordinator Assessment & Plan (05/15/2024 1:34 PM EDT): Patient has tried many different antidepressants and mood stabilizers but she was intolerant of everything. She is doing reasonably well. Her panic attacks respond to Hydroxyzine 25 mg prn. She takes Clonazepam 1 mg TID prn. And Ambien 10 mg at bedtime. This was prescribed by Hima Fam who recently retired Pt has a therapist at [facility] I recommended she speak with therapist about [...] necessary. For any issues or concerns, contact [facility]. All her questions were answered [...] to be under the care of clinical pharmacy specialist who had been prescribing Baclofen Assessment [...] to be under the care of clinical pharmacy specialist who had been prescribing tramadol 100mg [...] without neural impingement. Pt was seen at [facility] 04/2023 and has a follow up [...] without neural impingement. Pt was seen at [facility] recently has a follow up recommended [...] neural impingement. [facility] Smoker 02/21/2012 Assessment & Plan (04/03/2023 1:41 [...] organization. Date Type Department Care Team Description 05/12/2025 Orders Only [facility] External Provider, [facility] 05/06/2025 Patient Outreach [address] [address] Mychal Fields MD Care Coordination (Appt reminder) 05/05/2025 Patient Outreach [address] [address] Mychal Fields MD Care Coordination (SDOH f/u) 05/05/2025 Patient Outreach [address] [address] Mychal Fields MD Care Management (C3CM- f/u call # lvm) 04/30/2025 Refill [facility] [address], [place] [phone] Noemy Frye, ALAN Anxiety and depression 04/30/2025 Refill [facility] [address] [place] [address] Mychal Fields MD Essential hypertension 04/30/[address] [address] Mychal Fields MD Med Refill 04/21/2025 Patient Outreach [facility] [place] [place] [address] Mychal Fields MD Care Coordination ([facility] f/u) 04/21/2025 Patient Outreach [facility] [address] [facility] [place] [address] Mychal Fields MD Care Management (C3CM- f/u call lvm) 04/16/2025 11:30 AM EDT Office Visit [facility] [address] [place] [address] Mychal Fields MD Microscopic hematuria (Primary Dx); Restrictive lung disease; Essential hypertension; Low vitamin D level 04/16/2025 Travel 04/16/2025 Telephone [facility] [address] [facility] [place] [address] Mychal Fields MD Error (VOID this visit) 04/16/2025 Refill [facility] [address] [facility] [place] [address] Claudette Nassar MD 04/09/2025 Patient Outreach [facility] [address] [facility] [place] [address] Mychal Fields MD Care Management (C3- f/u call lvm) 04/09/2025 Patient Outreach [facility] [address] [facility] [place] [address] Mychal Fields MD Care Coordination (Appt reminder) 04/09/2025 Refill [facility] [address] [facility] [address] Mychal Fields MD Chronic midline low back pain without sciatica 04/08/2025 Refill [facility] [address] [place] [address] Mychal Fields MD Anxiety and depression 04/08/2025 Patient Outreach [facility] [address] [facility] [place] [address] Mychal Fields MD Pre-visit Planning (Pre-visit planning - LVM ) 04/05/2025 Refill [facility] [address] [place] [address] Mychal Fields MD 04/03/2025 Patient Outreach [facility] [address] [place] [address] Mychal Fields MD Care Coordination (Appt reminder) 04/02/2025 Telephone [facility] [address] [place] [address] Mychal Fields MD Care Management (C3CM) 04/01/2025 Patient Outreach [address] [address] Mychal Fields MD 04/01/[address] [address] Mychal Fields MD Care Management (CM- f/u call) 04/01/2025 Patient Outreach [facility] [address] [place] [address] Mychal Fields MD Care Coordination (PT1) 03/31/2025 Patient Outreach [facility] [address] [place] [address] Mychal Fields MD Care Management ([facility]- f/u call #2. lvm) 03/31/2025 Patient Outreach [facility] [address] [place] [phone] Mychal Fields MD Care Coordination (PT1) 03/31/2025 Patient Outreach [facility] [address] [place] [address] Mychal Fields MD Care Coordination (pt1) 03/25/2025 Refill [facility] [address] [place] [address] Mychal Fields MD Anxiety and depression 03/24/2025 Patient Outreach [facility] [address] [place] [address] Mychal Fields MD Care Management (C3- 1st f/u call lvm) 03/24/2025 Patient Outreach [address] [address] Mychal Fields MD Care Coordination (SDOH) 03/23/2025 Patient Outreach [address] [address] Mychal Fields MD 03/20/2025 Patient Outreach [address] [address] Mychal Fields MD Care Coordination (Appt reminder) 03/17/2025 Orders Only [facility] External Provider, [facility] 03/16/2025 Patient Outreach [address] [address] yMchal Fields MD Care Coordination (Appt reminder) 03/05/2025 Patient Outreach [address] [address] Mychal Fields MD Care Coordination (PT1) 03/04/2025 Plan of Care Documentation [address] [address] 03/04/2025 Patient Outreach [address] [address] Mychal Fields MD Care Management (C3- initial assessment/ enrollment) 03/04/2025 Patient Outreach [address] [address] Mychal Fields MD Care Coordination (SDOH/PT1) 03/03/2025 Patient Outreach [address] [address] Mychal Fields MD Care Coordination (CM/CHW outreach) 03/02/2025 Patient Outreach [address] [address] Mychal Fields MD 03/02/[address] [address] Mychal Fields MD Anxiety and depression 03/02/2025 Telephone [facility] [address] [place] [address] Mychal Fields MD Medication Question 03/02/2025 Patient Outreach [facility] [address] [place] [address] Mychal Fields MD 02/27/2025 Patient Outreach [facility] [address] [place] [address] Mychal Fields MD Care Coordination (CM/CHW outreach) 02/25/2025 Refill [facility] [address] [place] [address] Manjeet Deluca MD 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 Patient Outreach [facility] [address] [place] [address] Mychal Fields MD Care Coordination (CM/CHW outreach) 02/24/2025 Patient Outreach [facility] [address] [place] [address] Mychal Fields MD Care Coordination (CHW Chart Review) 02/24/2025 Patient Outreach [facility] [address] [place] [address] Mychal Fields MD Care Management (C3CM- chart review) 02/24/2025 Patient Outreach [facility] [address] [place] [address] Mychal Fields MD 02/23/2025 Refill [facility] [address], [place] [phone] Mychal Fields MD Anxiety and depression 02/13/2025 Patient Outreach [facility] [address] [place] [address] Mychal Fields MD Transition Of Care (Tcm) (HDF- Unscheduled due to surgery) 02/13/2025 Refill [facility] [address] [place] [address] Cinthya Dover, ANP Smoker from Last 3 Months Immunizations Immunization Administration [...] EST Office Visit [facility] [address] [place] [address] Manjeet Deluca MD [address] [place] [address] Health Maintenance Due Date Last Done Comments CT Colonography 1970 FIT DNA/Cologuard 1970 FIT 1970 FOBT 1970 Sigmoidoscopy 1970 Hepatitis A Vaccines (1 of 2 - Risk 2-dose series) 1989 Hepatitis B Vaccines (1 of 3 - 19+ 3-dose series) 1989 Pneumococcal Vaccine: 50+ Years (2 of 2 - PCV) 12/27/2012 12/28/2011 Zoster Vaccines (1 of 2) 2020 COVID-19 Vaccine (4 - season) 2025 06/20/2022, 06/20/2022, 05/17/2021 Influenza Vaccine (#1) 2025 [...] PE PROTOCAL Routine 05/12/2025 10:36 AM EDT XR CHEST 2 VIEWS Routine 03/23/2025 2:47 PM EDT HIGH SENSITIVITY TROPONIN I Routine 03/17/2025 7:24 PM EDT HIGH SENSITIVITY TROPONIN I Routine 03/17/2025 6:42 PM EDT B TYPE NATRIURETIC PEPTIDE (BNP) Routine 03/17/2025 6:42 PM EDT COMPREHENSIVE METABOLIC PANEL Routine 03/17/2025 6:42 PM EDT CBC WITH AUTO DIFFERENTIAL Routine 03/17/2025 6:42 PM EDT RCYJRIVSIDR-3-FDPHTSIL NG ENZYME Routine 03/17/2025 2:07 PM EDT MAURICE SCREEN, IFA, W/REFL TITER AND PATTERN Routine 03/17/2025 2:[address] CHEST W CONTRAST Routine 03/17/2025 1 :46 PM EDT POCT CREATININE GFR Routine 03/17/2025 1 :31 PM EDT HEPATITIS C ANTIBODY Routine 11/05/2024 [...] Recently Relevant to Health Maintenance Results * CTA Chest PE Protocal (05/12/2025 10:36 AM EDT) Anatomical Region Laterality Modality Body, Chest Computed Tomogra phy 05/12/2025 10:3 6 AM EDT Narrative 05/12/2025 11:22 AM EDT [address] [address] [address] Scan Report Signed Patient: Elaine Rodas MR#: [id number] : 1970 Acct:[id number] Age/Sex: 54 / F ADM Date: 05/12/25 Loc: HO.CT Attending Dr: Amy Zimmerman NP Ordering Physician: Amy Zimmerman NP Date of Service: 05/12/25 Procedure(s): CT angio chest PE protocol Accession Number(s): [id number] cc: Mychal Long MD; Amy Zimmerman NP Report Number: [id number]: Total DLP = 150.00 mGy-cm Reason for [...] 05/12/25 1119 DD/ 1036 TD/TT: 05/12/25 1100 Energy And Conservation Technician: Procedure Note Donotuseinterpreter, Image - 05/12/[address] [address] [address] Scan Report Signed Patient: Elaine RodasMR#: [id number] : 1970Acct:[id number] Age/Sex: 54 / FADM Date: 05/12/25 Loc: HO.CT Attending Dr: Amy Zimmerman NP Ordering Physician: Amy Zimmerman NP Date of Service: 05/12/25 Procedure(s): CT angio chest PE protocol Accession Number(s): [id number] cc: Mychal Long MD; Amy Zimmerman NP Report Number: [id number]: Total DLP = 150.00 mGy-cm Reason for [...] 05/12/25 1119 DD/ 1036 TD/TT: 05/12/25 1100 Energy And Conservation Technician: [facility] External Provider IMG CT PROCEDURES Final Result * XR Chest 2 Views (03/23/2025 2:47 PM EDT) Anatomical Region Laterality Modality Chest Radiographic Hilda ging 03/23/2025 2:47 PM EDT Narrative 03/23/2025 3:15 PM EDT [place] [address] XRay Report Signed Patient: Elaine Rodas MR#: [id number] : 1970 Acct:[id number] Age/Sex: 54 / F ADM Date: 03/23/25 Loc: HO.REYAY Attending Dr: Amy Zimmerman NP Ordering Physician: Amy Zimmerman NP Date of Service: 03/23/25 Procedure(s): XR chest 2V Accession Number(s): [id number] cc: Mychal Long MD; Amy Zimmerman NP [...] 03/23/25 1512 DD/ 1447 TD/TT: 03/23/25 1501 Energy And Conservation Technician: Procedure Note Donotuseinterpreter, Image - 03/23/[address] [address] XRay Report Signed Patient: Elaine RodasMR#: [id number] : 1970Acct:[id number] Age/Sex: 54 / FADM Date: 03/23/25 Loc: HO.XRAY Attending Dr: Amy Zimmerman NP Ordering Physician: Amy Zimmerman NP Date of Service: 03/23/25 Procedure(s): XR chest 2V Accession Number(s): [id number] cc: Mychal Long MD; Amy Zimmerman NP [...] 03/23/25 1512 DD/ 1447 TD/TT: 03/23/25 1501 Energy And Conservation Technician: [facility] External Provider IMG XR PROCEDURES Final Result * High Sensitivity Troponin I (03/17/2025 7:24 PM EDT) Only the most recent of2 resultswithin the time period is included. [facility] TROPONIN I HIGH SENSITIVITY <2.7 <3.5 - 17.0 ng/L [facility] Comment:The [place] high sens itivity Troponin-I results should beused in conjunction with other diagnostic information suchas ECG, clinical observations and information, and patientsymptoms to aid in the diagnosis of AL. 03/17/2025 7:24 PM EDT 03/17/2025 7:27 PM EDT Generic External Data Provider LAB BLOOD ORDERAB LES Final Result Performing Organization Address City/State/[facility] Co de Phone Number [facility] [address] [place] [phone] * (ABNORMAL) CBC auto differential (03/17/2025 6:42 PM EDT) [facility] White Blood Count 8.9 4.8 - 10.8 X10*3/uL [facility] Red Blood Count 4.08(L) 4.20 - 5.50 X10*6/uL [facility] Hemoglobin 11.9(L) 12.0 - 16.0 g/dl [facility] Hematocrit 34.7(L) 37.0 - 47.0 % [facility] Mean Corpuscular Volume 85.0 80.0 - 98.0 fL [facility] Mean Corpuscular Hemoglobin 29.2 27.0 - 33.0 pg [facility] Mean Corpuscular HGB Conc 34.3 31.0 - 35.0 g/dl [facility] Red Cell Distribution Width 12.9 11.0 - 16.0 % [facility] Platelet Count 276 160 - 400 X10*3/uL [facility] Mean Platelet Volume 9.0(L) 9.4 - 12.3 fL [facility] Neutrophils Percent Auto 46.0 45 - 73 % [facility] Imm Gran Pct Auto 0.1 0.0 - 0.4 % [facility] Lymphocytes Percent Auto 31.5 20 - 40 % [facility] Monocytes Percent Auto 4.0 2 - 11 % [facility] Eosinophils Percent Auto 17.8(H) 0 - 4 % [facility] Basophils Percent Auto 0.6 0 - 2 % [facility] NRBC Pct Auto 0.0 0.0 - 0.2 /100WBC [facility] Neutrophils Absolute Auto 4.1 2.0 - 8.3 x10*3/uL [facility] Imm Gran Abs Auto 0.01 0.00 - 0.03 X10*3/uL [facility] Lymphocytes Absolute Auto 2.8 1.2 - 4.9 X10*3/uL [facility] Monocytes Absolute Auto 0.4 0.1 - 1.2 X10*3/uL [facility] Eosinophils Absolute Auto 1.6(H) 0.0 - 0.4 X10*3/uL [facility] Basophils Absolute Auto 0.1 0.0 - 0.2 X10*3/uL [facility] NRBC Abs Auto 0.000 0.0 - 0.012 X10*3/uL [facility] 03/17/2025 6:42 PM EDT 03/17/2025 6:45 PM EDT us Generic External Data Provider LAB BLOOD ORDERAB LES Final Result [facility] [address] [place] [address] [phone] * B Type Natriuretic Peptide (BNP) (03/17/2025 6:42 PM EDT) B Type Natriuretic Peptide 11 <100 pg/mL [facility] 03/17/2025 6:42 PM EDT 03/17/2025 6:45 PM EDT us Generic External Data Provider LAB BLOOD ORDERAB LES Final Result [facility] [address] [place] [address] [phone] * (ABNORMAL) Comprehensive Metabolic Panel (03/17/2025 6:42 PM EDT) Sodium 141 135 - 145 mmol/L [facility] Potassium 3.7 3.3 - 5.1 mmol/L [facility] Chloride 109(H) 96 - 108 mmol/L [facility] Carbon Dioxide 23 22 - 29 mmol/L [facility] Anion Gap 13 12 - 20 [facility] Urea Nitrogen (BUN) 9 9 - 16 mg/dL [facility] Creatinine, Serum 1.03 0.5 - 1.4 mg/dL [facility] Creatinine Clr Calc Pharmacy 69.1 [facility] Comment:Provided height and weight: 160.02 cm,96.7 kg.eGFR (calculated from the MDRD study equation) and eCrCl(calculated from the Cockcroft-Gault equation) are based ondifferent parameters and may not yield comparable results.If eCrCl result is absurd, please check patient'sheight/weight. Estimated Glomerular Filt Rate 56 [facility] Comment:Chronic Kidney Disea se: Estimated GFR < 60 mL/min/1.16r5Umrecf Kidney Disease: Estimated GFR < 15 mL/min/1.73m2 Glucose 137(H) 60 - 115 mg/dL [facility] Calcium 9.1 8.4 - 10.2 mg/dL [facility] Bilirubin, Total 0.2 0.0 - 1.0 mg/dL [facility] Aspartate Amino Transferase 18 5 - 31 U/L [facility] Alanine Aminotransferase 12 0 - 31 U/L [facility] Total Protein 7.2 6.5 - 8.0 g/dL [facility] Albumin Level 3.9 3.5 - 5.0 g/dL [facility] Alkaline Phosphatase 106 39 - 117 U/L [facility] 03/17/2025 6:42 PM EDT 03/17/2025 6:45 PM EDT Generic External Data Provider LAB BLOOD ORDERAB LES Final Result Performing Organization Address [facility] Co de Phone Number [facility] [address] [place] [phone] * Angiotensin -1- Converting Enzyme (03/17/2025 2:07 PM EDT) Angiotensin Converting Enzyme 37.3 9 - 67 U/L [facility] Comment:THIS TEST WAS PERFOR MED AT:[employer] [id number] [place] [address]KQHELTOANSON CALVILLO MD,PHD 03/17/2025 2:07 PM EDT 03/17/2025 2:07 PM EDT Generic External Data Provider LAB BLOOD ORDERAB LES Final Result Performing Organization Address [facility] Co de Phone Number [facility] [address] [place] [phone] * MAURICE Screen,IFA, with Reflex to Titer and Pattern (03/17/2025 2:07 PM EDT) Anti Nuclear Antibody Screen NEGATIVE NEGATIVE [facility] Comment:MAURICE IFA is a first [...] clinicallysuspected inflammatory myopathies.AC-0: NegativeInternational Consensus on MAURICE Patterns(https://doi.org/10.1515/bffb-1968-6725)For additional information, please refer tohttp://education.[place] Self Representation Document Preparation/faq/TSU322(This link is being provided for informational/educational purposes only.)THIS TEST WAS PERFORMED AT:[employer] [address] [address]ENUCSBERNARD PRESSLEY MD MAURICE Titer TNP [facility] MAURICE Pattern TNP [facility] MAURICE TITER 2 (REF LAB) [facility] Pattern 2 [facility] MA[facility]ICE TITER 3 [facility] MAURICE PATTERN 3 [facility] 03/17/2025 2:07 PM EDT 03/17/2025 2:07 PM EDT us Generic External Data Provider LAB BLOOD ORDERAB LES Final Result [facility] [address] [place] [phone] * CT Chest w/ Contrast (03/17/2025 1:46 PM EDT) Anatomical Region Laterality Modality Body, Chest Computed Tomogra phy 03/17/2025 1:46 PM EDT Narrative 03/17/2025 2:19 PM EDT [address] [address] [address] Scan Report Signed Patient: Elaine Rodas MR#: [id number] : 1970 Acct:[id number] Age/Sex: 54 / F ADM Date: 03/17/25 Loc: HO.CT Attending Dr: Amy Zimmerman NP Ordering Physician: Amy Zimmerman NP Date of Service: 03/17/25 Procedure(s): CT chest w IV con Accession Number(s): [id number] cc: FangMychal Hinds MD; Amy Zimmerman PUBLIC RELATIONS DIRECTOR Report Number: [id number]: Total DLP = 344.00 mGy-cm EXAMINATION: CT [...] reconstruction technique DLP: 344 mGy centimeter. FINDINGS: FLANGING MACHINE OPERATOR: Patient's large body habitus. LUNGS: Linear attenuation [...] atelectasis in the lung bases Communicated via [employer] connect to nurse practitioner Amy Zimmerman on March 17, 2025 at 2:16 PM. Fleischner guidelines were followed. Electronically signed by: Ty Strong MD 03/17/2025 02:16 PM EDT Dictated By: Ty Olson MD Signed By: <Electronically signed by Ty Contreras MD in OV> 03/17/25 1416 DD/ 1346 TD/TT: 03/17/25 1403 Energy And Conservation Technician: Procedure Note Donotuseinterpreter, Image - 03/17/[address] [address] [address] Scan Report Signed Patient: Elaine RodasMR#: [id number] : 1970Acct:[id number] Age/Sex: 54 / FADM Date: 03/17/25 Loc: HO.CT Attending Dr: Amy Zimmerman NP Ordering Physician: Amy Zimmerman NP Date of Service: 03/17/25 Procedure(s): CT chest w IV con Accession Number(s): [id number] cc: Mychal Long MD; Amy Zimmerman NP Report Number: [id number]: Total DLP = 344.00 mGy-cm EXAMINATION: CT [...] reconstruction technique DLP: 344 mGy centimeter. FINDINGS: FLANGING MACHINE OPERATOR: Patient's large body habitus. LUNGS: Linear attenuation [...] atelectasis in the lung bases Communicated via [employer] connect to nurse practitioner Amy Zimmerman on March 17, 2025 at 2:16 PM. Fleischner guidelines were followed. Electronically signed by: Ty Strong MD 03/17/2025 02:16 PM EDT RP Dictated By: Ty Olson MD Signed By: <Electronically signed by Ty Contreras MDin OV> 03/17/25 1416 DD/ 1346 TD/TT: 03/17/25 1403 Energy And Conservation Technician: [facility] External Provider IMG CT PROCEDURES Final Result * POCT Creatinine GFR (03/17/2025 1:31 PM EDT) POCT Creatinine 0.8 0.5 - 1.4 mg/dL [facility] GFR POC >60 [facility] Comment:Chronic Kidney Disea se: Estimated GFR < 60 mL/min/1.00c0Jdqroo Kidney Disease: Estimated GFR < 15 mL/min/1.73m2 03/17/2025 1:31 PM EDT 03/19/2025 9:52 AM EDT Narrative [facility] - 03/19/2025 9:55 AM EDT [id number] Mychal Morris MD LAB POINT OF CARE TEST DOCKED DEVICE ORDERABLES Final Result [facility] [address] [place] [phone] [phone] * Hepatitis C Ab (11/05/2024 3:21 PM EST) Hepatitis C Antibody Nonreactive Nonreactive [facility] Comment:Antibodies to HCV no t detected; does not exclude early acuteHCV infection. 11/05/2024 3:21 PM EST 11/05/2024 3:21 PM EST us Generic External Data Provider LAB BLOOD ORDERAB LES Final Result Performing Organization Address City/[facility]/ZIP Co de Phone Number [facility] [address] [place] [phone] * HIV-1/2 Antigen and Antibodies, Fourth Generation, with Reflexes (11/05/2024 3:21 PM EST) HIV AB/AG Nonreactive Nonreactive [facility] Comment:HIV-1 p24 Ag and/or HIV-1/HIV-2 Ab not detected.A test result that is nonreactive does not exclude thepossibility of exposure to or infection with HIV-1 and/orHIV-2. Nonreactive results in this assay for individualswith prior exposure to HIV-1 and/or HIV-2 may be due toantigen and antibody levels that are below the limit ofdetection of this assay.The [employer] HIV Ag/Ab Combo assay result andsupplemental assay results should be interpreted inconjunction with the patient's clinical presentation,history and other laboratory results. If the results areinconsistent with clinical evidence, additional testing issuggested to confirm the result. 11/05/2024 3:21 PM EST 11/05/2024 3:21 PM EST us Generic External Data Provider LAB BLOOD ORDERAB LES Final Result Performing Organization Address [facility] Co de Phone Number [facility] [address] [place] [phone] * BI Mammogram Screening Tomosynthesis Bilateral (10/29/2024 12:58 PM EST) Anatomical Region Laterality Modality Breast Bilateral Mammography 10/29/2024 12:5 8 PM EST Narrative 11/04/2024 12:41 PM EST [address] [place], [place] [address] Mammography Report Signed Patient: Elaine Rodas MR#: [id number] : 1970 Acct:[id number] Age/Sex: 53 / F ADM Date: 10/29/24 Loc: HO.MAMMO Attending Dr: Mychal Long MD Ordering Physician: Syed Coreas MD Results: 1Negativ e Date of Service: 10/29/24 Follow Up: 1 Year From Orig inal Mammogram Procedure(s): MM tomosynthesis screening BI Accession Number(s): [id number] cc: Mychal Long MD; Syed Coreas MD [...] 11/04/24 1238 DD/ 1258 TD/TT: 10/29/24 1315 Energy And Conservation Technician: Procedure Note Donotuseinterpreter, Image - 11/04/[address] [place], [place] [address] Mammography Report Signed Patient: Elaine RodasMR#: [id number] : 1970Acct:[id number] Age/Sex: 53 / FADM Date: 10/29/24 Loc: HO.MAMMO Attending Dr: Mychal Long MD Ordering Physician: Syed Coreas MDResults: 1Negativ e Date of Service: 10/29/24Follow Up: 1 Year From Orig inal Mammogram Procedure(s): MM tomosynthesis screening BI Accession Number(s): [id number] cc: Mychal Long MD; Syed Coreas MD [...] 11/04/24 1238 DD/ 1258 TD/TT: 10/29/24 1315 Energy And Conservation Technician: [facility] External Provider IMG BI PROCEDURES Final Result * HPV mRNA E6/E7 w/Reflex to HPV Genotypes 16, 18/45 (08/23/2023 2:22 PM EST) HPV nRNA E6/E7 Not Detected Not Detected [facility] Comment:Methodology: Transcr iption-Mediated AmplificationThis assay detects E6/E7 viral messenger RNA (mRNA) from 14high-risk HPV types (16,18,31,33,35,39,45,51,52,56,58,59,66,68).Cervical sources are required for HPV testing.If a vaginal source from a patient who has had atotal hysterectomy with removal of cervix wassubmitted, please contact the testing laboratoryfor alternative testing options.For additional information, please refer tohttp://education.Mapbox/faq/KYR278j3(This link if provided for information/educational purposes only.)THIS TEST WAS PERFORMED AT:[facility] [place] [phone] PRESSLEY MD HPV mRNA E6/E7 TNP [facility] HPV 16 RNA TNP [facility] HPV 18/45 RNA [facility] 08/23/2023 2:22 PM EST 08/24/2023 9:35 AM EST Cecily Schwab [facility] CYTOLOGY ORDERABLES F inal Result [facility] [address] [place] [phone] * Pap Smear (08/23/2023 2:22 PM EST) Swab Cervix uteri structure / Unknown 08/23/2023 2:22 PM EST 08/24/2023 9:35 AM EST Narrative [facility] - 09/04/2023 1:23 PM EST ----- ------- Name: Elaine Rodas Age/Sex: 52/F : 1970 Unit#: [id number] Attend Dr: Re08/23/23 Status: PRE REF Location: [facility] Disch: ----- ------- SPEC : [id number] RECD: 08/24/23 STATUS: RICHARD SCHAEFER NUM: [id number] [place]: 08/23/23-[address] [facility] [address]: CECILY SCHWAB [facility] ENTERED: 08/24/23-1156 SP TYPE: Pap Smr [facility] DR: ORDERED: Pap Smear Interpretation Satisfactory for evaluation. No endocervical cells seen. Cytolysis noted. Negative for intraepithelial lesion or malignancy. HPV mRNA E6/E7: NOT DETECTED This assay detects E6/E7 viral messenger RNA (mRNA) from 14 high-risk HPV types (16, 18, 31, 33, 35, 39, 45, 51, 52, 56, 58, 59, 66, 68) HPV testing performed by [facility], [place], [place]. See reference laboratory portion of the EMR for entire report. Clinical Information LMP: Postmenopausal Previous PAP test: Unknown date/findings Other history: Abnormal bleeding Material Received ThinPrep-Cervical ----- ------- Signed (signature on file) NATHAN Medrano (ASCP) 09/04/23 1323 ----- ------- END OF REPORT Cecily STANTON LAB CYTOLOGY ORDERABLES F inal Result [facility] [address] [place], [place] [phone] * Colonoscopy (08/30/2022) Pathologist [facility] Colonoscopy Normal Normal Historical Provider MD HEALTH [...] factors. LDL-C is now calculated using the Jessee calculation, which is a validated novel method providing better accuracy than the Friedewald equation in the estimation of LDL-C. Mina MARERRO et al. ASHUTOSH. 2013;310(19): 8305-6753 (http://education.[employer]Guvera/faq/RAI211) Chol/HDLC Ratio 3.4 <5.0 (calc) [facility] 06/17/2020 3:00 PM EDT Mychal Morris MD LAB BLOOD ORDERABLES Final Result [facility] [address] from Last 3 Months or Most Recently Relevant to Health Maintenance [facility] Care Teams Engineering Technical Writer Relationship Specialty Start Date End Date Mychal Fields MD [address] [place] [address] PCP - General Internal Medicine 04/30/14 Hima Fam FNP [address] [place], [place] Nurse Practitioner Family Medicine 08/01/23 Yaneth Dotson, ALAN [address] [place] [address] Registered Nurse Family Medicine 02/24/25 Mckenzie Silverio 02/24/25
--- OUTSIDE RECORDS SUMMARY | 2025-05-12 12:03 | XMS_ITS | Encounter Summary ---
Author Organization [employer] Address [address] [place] [address] [address] [place] [address] Care Team Providers Care Wastewater Treatment Plant Supervisor Name Role Phone Mychal Fields MD Primary Care Provide r Hima Fam Unavailable Unavailable Yaneth Dotson RN Unavailable [phone] Mckenzie Silverio Unavailable Encounter Details Date Type Department Care Team (Late st Contact Info) Description 04/24/2023 Orders Only [facility] [address] [place] [phone] Zena Harley MD [address] [place] [address] [phone] Acquired clavicle deformity (Primary Dx) Social History [...] Description 07/24/2025 2:00 PM EST Office Visit [facility] [address] [place] [address] [phone] Manjeet Deluca MD [address] [place] [address] [phone] Scheduled Orders Name Type Priority Associated Diagnoses [...] PM EDT Narrative 05/14/2023 4:45 PM EDT [address] [address] XRay Report Signed Patient: Elaine Rodas MR#: [id number] : 1970 Acct:[id number] Age/Sex: 52 / F ADM Date: 05/14/23 Loc: .ED Attending Dr: Ordering Physician: Vee Castano NP Date of Service: 05/14/23 Procedure(s): XR chest 2V Accession Number(s): [id number] cc: Mychal Long MD; Vee Castano NP [...] acute disease in the chest. Dictated By: Ldyia Oneal MD Signed By: <Electronically signed by Lydia Oneal MD in OV> 05/14/23 1642 DD/ 1624 TD/TT: Geotechnicial Properties Technician: DORITA Procedure Note Donotuseinterpreter, Image - 05/14/2023 [facility] [address] [place] [address] XRay Report Signed Patient: Elaine RodasMR#: [id number] : 1970Acct:[id number] Age/Sex: 52 / FADM Date: 05/14/23 Loc: HO.ED Attending Dr: Ordering Physician: Vee Castano NP Date of Service: 05/14/23 Procedure(s): XR chest 2V Accession Number(s): [id number] cc: Mychal Long MD; Vee Castano CLASSIFICATION CASE MANAGER EXAMINATION: XR CHEST CLINICAL INFORMATION: Chest pain [...] in OV> 05/14/23 1642 DD/ 1624 TD/TT: Geotechnicial Properties Technician: DORITA us [facility] External Provider IMG XR PROCEDURES Edited Result - Final * XR Foot 3+ Views Right (05/10/2023 11:44 AM EDT) Anatomical Region Laterality Modality Lower Extremities, Foot Right Radiogra phic Imaging 05/10/2023 11:4 4 AM EDT Narrative 05/10/2023 12:08 PM EDT [facility] [address] [place] [address] XRay Report Signed Patient: Elaine Rodas MR#: [id number] : 1970 Acct:[id number] Age/Sex: 52 / F ADM Date: 05/10/23 Loc: HO.HHCX Attending Dr: Mychal Long MD Ordering Physician: Mychal Long MD Date of Service: 05/10/23 Procedure(s): XR foot RT min 3V Accession Number(s): [id number] cc: Mychal Long MD EXAMINATION: XR FOOT, [...] in OV> 05/10/23 1205 DD/ 1144 TD/TT: Geotechnicial Properties Technician: YULISSA Procedure Note Donotuseinterpreter, Image - 05/10/[address] [address] XRay Report Signed Patient: Elaine RodasMR#: [id number] : 1970Acct:[id number] Age/Sex: 52 / FADM Date: 05/10/23 [facility]: Mychal Long MD Ordering Physician: Mychal Long MD Date of Service: 05/10/23 Procedure(s): XR foot RT min 3V Accession Number(s): [id number] cc: Mychal Long MD EXAMINATION: XR FOOT, [...] in OV> 05/10/23 1205 DD/ 1144 TD/TT: Geotechnicial Properties Technician: YULISSA us Mychal Morris MD IMG XR PROCEDURES Fin al Result * FL Esophagus Barium Swallow w/Air (05/08/2023 10:19 AM EDT) Anatomical Region Laterality Modality Head, Neck Radiographic Hilda ging 05/08/2023 10:1 9 AM EDT Narrative 05/08/2023 4:35 PM EDT [address] [address] Fluoroscopy Report Signed Patient: Elaine Rodas MR#: [id number] : 1970 Acct:[id number] Age/Sex: 52 / F ADM Date: 05/08/23 Loc: HOKRISH Attending Dr: Mychal Long MD Ordering Physician: Mychal Long MD Date of Service: 05/08/23 Procedure(s): FL barium swallow with air Accession Number(s): [id number] cc: Mychal Long MD EXAMINATION: XR FLUOROSCOPY [...] in OV> 05/08/23 1632 DD/ 1019 TD/TT: Geotechnicial Properties Technician: Procedure Note Donotuseinterpreter, Image - 05/08/2023 [place] [address] Fluoroscopy Report Signed Patient: Elaine RodasMR#: [id number] : 1970Acct:[id number] Age/Sex: 52 / FADM Date: 05/08/23 Loc: HO.XRAY Attending Dr: Mychal Long MD Ordering Physician: Mychal Long MD Date of Service: 05/08/23 Procedure(s): FL barium swallow with air Accession Number(s): [id number] cc: Mychal Long MD EXAMINATION: XR FLUOROSCOPY [...] in OV> 05/08/23 1632 DD/ 1019 TD/TT: Geotechnicial Properties Technician: us Mychal Morris MD IMG FLUOROSCOPY PROCE DURES Final Result documented in this encounter Visit Diagnoses Diagnosis 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 documented in this encounter Additional Health Concerns Assessment Noted Time PHQ-9 Depression Total Score: 8 02/09/20 23 11:04 AM EDT documented as of this encounter Care Teams Wastewater Treatment Plant Supervisor Relationship Specialty Start Date End Date Mychal Fields MD [address] [place] [address] PCP - General Internal Medicine 04/30/14 Hima Fam FNP [address] [place] [address] Nurse Practitioner Family Medicine 08/01/23 Yaneth Dotson RN [address] [place] [phone] Registered Nurse Family Medicine 02/24/25 Mckenzie Silverio 02/24/25 [employer] 02/13/25 03/29/25 documented as of this encounter
--- OUTSIDE RECORDS SUMMARY | 2025-05-12 12:03 | XMS_ITS | Encounter Summary ---
Author Organization [employer] Address [address] [place] [address] 7t [place] [address] Care Team Providers Care Equipment Service Associate Name Role Phone Mychal Fields MD Primary Care Provide r Hima Fam Unavailable Unavailable Yaneth Dotson RN Unavailable [phone] Mckenzie Silverio Unavailable Reason for Visit * Reason Onset Date Comments PRE OP 11/10/2024 Encounter Details Date Type Department Care Team ([facility] st Contact Info) Description 11/10/2024 Telephone [facility] [address] [place], [place] [phone] Mychal Fields MD [address] [place], [place] [phone] PRE OP Social History Tobacco Use Types [...] No Surgeon's name: Dino Caruso Facility name: [facility] Surgeon's office number: [phone] Surgeon's office fax number: [phone] Contact name (person you spoke with): Karon [...] Description 07/24/2025 2:00 PM EST Office Visit [facility] [address] [place] [phone] Manjeet Deluca MD [address] [place] [phone] documented as of this encounter Visit Diagnoses Not on filedocumented in this encounter Additional Health Concerns Assessment Noted Time PHQ-9 Depression Total Score: 6 09/16/19 10:06 AM EST documented as of this encounter Care Teams Equipment Service Associate Relationship Specialty Start Date End Date Mychal Fields MD [address] [place] [address] PCP - General Internal Medicine 04/30/14 Hima Fam FNP [address] [place] [phone] Nurse Practitioner Family Medicine 08/01/23 Yaneth Dotson, ALAN [address] [place] [phone] Registered Nurse Family Medicine 02/24/25 Mckenzie Silverio 02/24/25 [employer] 02/13/25 03/29/25 documented as of this encounter
--- OUTSIDE RECORDS SUMMARY | 2025-05-12 12:04 | XMS_ITS | Clinical Summary ---
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 with her LDCT due December 2025. Patient may follow-up with us here in thoracic surgery on an as-needed basis going forward. Resolved Problems Problem Noted Date Diagnosed Date Resolved Date Mediastinal mass 01/26/2025 02/26/2025 Mediastinal lymphadenopathy 01/26/2025 02/26/2025 Encounters Date Type Department Care Team Description 05/01/2025 4:31 PM EDT - 05/01/2025 11:59 PM EDT Hospital Encounter [facility] Xray [address] [place] [phone] Bilateral pleural effusion Discharge Disposition: Home or Self Care 05/01/2025 3:00 PM EDT Office Visit Pulmonology - [facility] [address] [facility] [address] [place] [phone] Rosy Rhodes MD Bilateral pleural effusion (Primary Dx) 03/25/2025 Telephone Pulmonology - [facility] [address] [facility] [address] [place] [phone] Kylie Simons MA 03/24/2025 5:49 PM EDT - 03/24/2025 11:59 PM EDT Hospital Encounter [facility] Xray [address] [place] [address] Bilateral pleural effusion Discharge Disposition: Home or Self Care 03/24/2025 4:00 PM EDT Office Visit Pulmonology - [facility] [address] [facility] [address] [place] [phone] Rosy Rhodes MD Bilateral pleural effusion (Primary Dx); Thymic cyst (CMS/HCC V24) 03/02/2025 2:45 PM EDT - 03/02/2025 11:59 PM EDT Hospital Encounter [facility] Ultrasound [address] [place] [address] Pain in both lower extremities Discharge Disposition: Home or Self Care 02/26/2025 10:15 AM EDT Office Visit Thoracic Surgery - [facility] [address] [facility] [address] [place] [phone] Silvia Romeo PA Thymic cyst (CMS/HCC V24) (Primary Dx); Pain in both lower extremities; Tobacco abuse 02/26/2025 10:08 AM EDT - 02/26/2025 11:59 PM EDT Hospital Encounter [facility] Xray [address] [place] [address] Mediastinal mass Discharge Disposition: Home or Self Care 02/26/2025 Telephone Thoracic Surgery - [facility] [address] [facility] [address] [place] [phone] Teodora Walker MA 02/13/2025 Telephone Thoracic Surgery - [facility] [address] [phone] Marlena Morris RN 02/11/2025 8:30 AM EDT - 02/11/2025 12:30 PM EDT Surgery [facility] Main OR [address] [place] [phone] Bessy Kern MD DaVinci thymectomy 02/11/2025 8:29 AM EDT Anesthesia Event [facility] Main OR [address] [place] [phone] Amrita Soto MD Elliott, Barbara J, CRNA 02/11/2025 7:18 AM EDT - 02/12/2025 12:23 PM EDT Hospital Encounter [facility] Intermediate Care Unit B [address] [place] [phone] Bessy Kern MD Bell, Alistair A, MD [...] 3:00 PM EDT Office Visit Pulmonology - [facility] [address] [facility] [address] [place] [phone] Rosy Rhodes MD [address] [place] [phone] Health Maintenance Due Date Last Done Comments Breast Cancer Screening 1970 Hepatitis B Vaccines (1 of 3 - 19+ 3-dose series) 1989 Pneumococcal Vaccine: 50+ Years (2 of 2 - PCV) 2020 12/28/2011 Zoster Vaccines (1 of 2) 2020 Colorectal Cancer Screening: Colonoscopy 06/18/2024 Hepatitis C Screening 06/18/2024 Lung Cancer Screening (Low Dose CT) 06/18/2024 Social Influencers of Health Screening 06/18/2024 Depression Screening 09/10/2024 COVID-19 Vaccine ( season) 2025 06/20/2022, 05/17/2021 Influenza Vaccine (#1) 2025 2, 09/08/2021, 06/09/2020, [...] 05/01/2025 4:36 PM EDT Bilateral pleural effusion ME THORACENTESIS PLEURAL SPACE NEEDLE/CATH ASPIRATION W IMAGING GUIDANCE Routine 05/01/2025 4:29 PM EDT Bilateral pleural effusion ME THORACENTESIS PLEURAL SPACE NEEDLE/CATH ASPIRATION W IMAGING [...] 05/01/2025 3:00 PM EDT Bilateral pleural effusion ME THORACENTESIS PLEURAL SPACE NEEDLE/CATH ASPIRATION W IMAGING [...] and histiocytes present 05/05/2025 8:05 AM EDT [facility] Specimen A Adequacy Satisfactory for evaluation 05/05/2025 8:05 AM EDT [facility] Gross Description A. Pleural Cavity, Left, Pleural Cavity Left: Received 400ml of dark cloudy fluid 1 thin prep, 1 cell block Formalin fixation 7.5 put in formalin at 1330 05/05/2025 8:05 AM EDT [facility] Disclaimer Unless otherwise specified, all tissue is 10% NB formalin fixed and paraffin embedded. Technical cytopathology services provided by [facility], at [address] [place] [id number] (CLIA # [id number]/Jose Paula MD, Drink Waiter.) 05/05/2025 8:05 AM EDT [facility] Pleural Fluid Structure of left pleural cavity / Unknown 05/04/2025 1:00 PM EDT us Rosy Rhodes MD LAB CYTOLOGY ORDERABLES Fi nal Result [facility] [address] [place] [address], [place] [phone] * XR Chest 2 Views (05/01/2025 4:36 [...] Signed Date: 05/01/2025 16:41 ET Workstation ID: [id number] Transcribed By: Self Edit Transcribed Date: 05/01/2025 [...] Signed Date: 05/01/2025 16:41 ET Workstation ID: [id number] Transcribed By: Self Edit Transcribed Date: 05/01/2025 16:41 ET us Rosy Rhodes MD IMG XR PROCEDURES Final Re sult * ME THORACENTESIS PLEURAL SPACE NEEDLE/CATH ASPIRATION W IMAGING GUIDANCE (05/01/2025 4:29 PM EDT) Narrative Rosy Rhodes MD - 05/01/2025 4:29 PM EDT Rosy Rhodes MD 05/01/2025 4:49 PM Thoracentesis Date/Time: 05/01/2025 4:29 PM Performed by: Rosy Rhodes MD Authorized by: Rosy Rhodes MD Consent: Consent obtained: Verbal Consent given by: Patient Risks discussed: Bleeding, pneumothorax, pain and infection Alternatives discussed: No treatment [place] protocol: Procedure explained and questions answered to [...] midscapular line Intercostal space: 7th Puncture method: Cjhi-dzq-skjsyb catheter Ultrasound guidance: yes Indwelling catheter placed: no Needle gauge: 20 Catheter size: 8 Fr Number of attempts: 1 Fluid characteristics: serous. Post-procedure details: Post-procedure chest x-ray: pending. Procedure completion: Tolerated well, no immediate complications Comments: 350 mL removed, stopped for no further fluid us Rosy Rhodes MD IN CLINIC/BEDSIDE ORDERABL ES Final Result * ME THORACENTESIS PLEURAL SPACE NEEDLE/CATH ASPIRATION W IMAGING GUIDANCE (05/01/2025 4:28 PM EDT) Narrative Rosy Rhodes MD - 05/01/2025 4:28 PM EDT Rosy Rhodes MD 05/01/2025 4:49 PM Thoracentesis Date/Time: 05/01/2025 4:28 PM Performed by: Rosy Rhodes MD Authorized by: Rosy Rhodes MD Consent: Consent obtained: Verbal Consent given by: Patient Risks discussed: Bleeding, infection, pain and pneumothorax Alternatives discussed: No treatment [place] protocol: Procedure explained and questions answered to [...] midscapular line Intercostal space: 7th Puncture method: Svar-dgu-wuxbhz catheter Ultrasound guidance: yes Indwelling catheter placed: [...] LAB HEMETOLOGY METHOD 05/01/2025 6:48 PM EDT [facility] Body Fluid RBC 4,000 /mm3 LAB HEMETOLOGY METHOD 05/01/2025 6:48 PM EDT [facility] Body Fluid Color Yellow 05/01/2025 6:48 PM EDT [facility] Body Fluid Clarity Cloudy 05/01/2025 6:48 PM EDT [facility] Body Fluid Source Pleural 05/01/2025 6:48 PM EDT [facility] Comment:Left Pleural Fluid Structure of left pleural cavity / Unknown 05/01/2025 3:00 PM EDT 05/01/2025 4:48 PM EDT Narrative [facility] - 05/01/2025 6:48 PM EDT No reference ranges have been established for body fluids. Clinical correlation recommended. Rosy Rhodes MD LAB BODY FLUIDS AND STOOLS ORDERABLES Final Result Performing Organization Address [facility] de Phone Number [facility] [address] [place] [address], [place] [phone] * Culture body fluid with gram stain (05/01/2025 3:00 PM EDT) Only the most recent of3 resultswithin the time period is included. Fluid Culture No growth at 3 days LAB MICROBIOLOGY METHOD 05/04/2025 11:15 AM EDT [facility] Gram Stain Result No polymorphonuclear leukocytes, No epithelial cells, and No organisms noted 05/04/2025 11:15 AM EDT [facility] Pleural Fluid Structure of left pleural cavity / Unknown Non-blood Collection / Unknown 05/01/2025 3:00 PM EDT 05/01/2025 4:48 PM EDT Rosy Rhodes MD LAB MICROBIOLOGY - GENERAL ORDERABLES Final Result Performing Organization Address [facility] de Phone Number [facility] [address] [place] [address], [place] [phone] * Differential body fluid (05/01/2025 3:00 PM EDT) Only the most recent of3 resultswithin the time period is included. Fluid Neutrophils % 7 % 05/01/2025 6:44 PM EDT [facility] Fluid Lymphocytes % 42 % 05/01/2025 6:44 PM EDT [facility] Fluid Monocytes/Macrop hages 23 % 05/01/2025 6:44 PM EDT [facility] Fluid Eosinophils % 28 % 05/01/2025 6:44 PM EDT [facility] Fluid Basophils % 0 % 05/01/2025 6:44 PM EDT [facility] Fluid Other Cells % 0 % 05/01/2025 6:44 PM EDT [facility] Pleural Fluid Structure of left pleural cavity / Unknown 05/01/2025 3:00 PM EDT 05/01/2025 4:48 PM EDT Narrative [facility] - 05/01/2025 6:44 PM EDT No reference ranges have been established for body fluids. Clinical correlation recommended. Rosy Rhodes MD LAB BODY FLUIDS AND STOOLS ORDERABLES Final Result Performing Organization Address [facility] Co de Phone Number [facility] [address] [place] [address], [place] [phone] * Protein, body fluid (05/01/2025 3:00 PM EDT) Only the most recent of3 resultswithin the time period is included. Protein, Fluid 5.2 See Comment g/dL LAB CHEMISTRY METHOD 05/01/2025 5:33 PM EDT [facility] Pleural Fluid Structure of left pleural cavity / Unknown Non-blood Collection / Unknown 05/01/2025 3:00 PM EDT 05/01/2025 4:48 PM EDT Narrative [facility] - 05/01/2025 5:33 PM EDT No reference ranges have been established for body fluids. Clinical correlation recommended. us Rosy Rhodes MD LAB BODY FLUIDS AND STOOLS ORDERABLES Final Result Performing Organization Address City/[facility]/ZIP Co de Phone Number [facility] [address] [place] [address], [place] [phone] * Lactate dehydrogenase, body fluid (05/01/2025 3:00 PM EDT) Only the most recent of3 resultswithin the time period is included. LD, Fluid 587 See Comment unit/L LAB CHEMISTRY METHOD 05/01/2025 5:33 PM EDT [facility] Pleural Fluid Structure of left pleural cavity / Unknown Non-blood Collection / Unknown 05/01/2025 3:00 PM EDT 05/01/2025 4:48 PM EDT Narrative [facility] - 05/01/2025 5:33 PM EDT No reference ranges have been established for body fluids. Clinical correlation recommended. Rosy Rhodes MD LAB BODY FLUIDS AND STOOLS ORDERABLES Final Result Performing Organization Address [facility]/ZIP Co de Phone Number [facility] [address] [place] [address], [place] [phone] * Glucose, body fluid (05/01/2025 3:00 PM EDT) Only the most recent of3 resultswithin the time period is included. Pathologist [facility] Glucose, Fluid 103 See Comment mg/dL LAB CHEMISTRY METHOD 05/01/2025 5:33 PM EDT [facility] Pleural Fluid Structure of left pleural cavity / Unknown Non-blood Collection / Unknown 05/01/2025 3:00 PM EDT 05/01/2025 4:48 PM EDT Narrative [facility] - 05/01/2025 5:33 PM EDT No reference ranges have been established for body fluids. Clinical correlation recommended. Rosy Rhodes MD LAB BODY FLUIDS AND STOOLS ORDERABLES Final Result Performing Organization Address City/[facility]/ZIP Co de Phone Number [facility] [address] [place] [address], [place] [phone] * ME THORACENTESIS PLEURAL SPACE NEEDLE/CATH ASPIRATION W IMAGING [...] infection and pneumothorax Alternatives discussed: No treatment [place] protocol: Procedure explained and questions answered to [...] midscapular line Intercostal space: 8th Puncture method: Aplr-sxw-alheqr catheter Ultrasound guidance: yes Indwelling catheter placed: [...] -Negative for malignancy 03/25/2025 8:49 AM EDT [facility] Pleural Fluid Structure of right pleural cavity / Unknown Non-blood Collection / Unknown 03/24/2025 5:33 PM EDT 03/24/2025 5:45 PM EDT Rosy Rhodes MD LAB BODY FLUIDS AND STOOLS ORDERABLES Final Result Performing Organization Address [facility]/ZIP Co de Phone Number [facility] [address] [place] [address], [place] [phone] * Triglycerides, body fluid (03/24/2025 5:33 PM EDT) Triglycerides , Fluid 36 See Comment mg/dL LAB CHEMISTRY METHOD 03/25/2025 12:15 PM EDT [facility] Pleural Fluid Structure of right pleural cavity / Unknown Non-blood Collection / Unknown 03/24/2025 5:33 PM EDT 03/24/2025 5:45 PM EDT Narrative [facility] - 03/25/2025 12:15 PM EDT No reference ranges have been established for body fluids. Clinical correlation recommended. Rosy Rhodes MD LAB BODY FLUIDS AND STOOLS ORDERABLES Final Result Performing Organization Address [facility] Co de Phone Number [facility] [address] [place] [address], [place] [phone] * External CT Report (03/17/2025) Anatomical Region [...] Signed Date: 03/02/2025 15:18 ET Workstation ID: [id number] Transcribed By: Self Edit Transcribed Date: 03/02/2025 [...] Signed Date: 03/02/2025 15:18 ET Workstation ID: [id number] Transcribed By: Self Edit Transcribed Date: 03/02/2025 15:17 ET us Silvia RED CV VASCULAR PROCEDURES Final Result * (ABNORMAL) CBC - Every 3 Days (02/12/2025 6:18 AM EDT) WBC 16.2(H) 4.8 - 10.8 K/[facility] LAB HEMETOLOGY METHOD 02/12/2025 7:11 AM EDT [facility] RBC 3.80 3.80 - 4.80 M/[facility] LAB HEMETOLOGY METHOD 02/12/2025 7:11 AM [facility] Hemoglobin 11.4(L) 11.5 - 16.0 g/dL LAB HEMETOLOGY METHOD 02/12/2025 7:11 AM [facility] Hematocrit 34.5(L) 35.0 - 47.0 % LAB HEMETOLOGY METHOD 02/12/2025 7:11 AM [facility] MCV 90.3 79.0 - 98.0 FL LAB HEMETOLOGY METHOD 02/12/2025 7:11 AM [facility] MCH 29.8 27.0 - 32.0 pcg LAB HEMETOLOGY METHOD 02/12/2025 7:11 AM [facility] MCHC 33.0 32.0 - 37.0 g/dL LAB HEMETOLOGY METHOD 02/12/2025 7:11 AM [facility] RDW 13.1 11.0 - 15.0 % LAB HEMETOLOGY METHOD 02/12/2025 7:11 AM [facility] Platelets 292 130 - 400 K/mcL LAB HEMETOLOGY METHOD 02/12/2025 7:11 AM [facility] MPV 9.9 7.0 - 11.0 FL LAB HEMETOLOGY METHOD 02/12/2025 7:11 AM [facility] NRBC 0.0 <1.0 % LAB HEMETOLOGY METHOD 02/12/2025 7:11 AM [facility] NRBC Absolute 0.00 <0.10 K/mcL LAB HEMETOLOGY METHOD 02/12/2025 7:11 AM [facility] Blood Venous blood specimen / Unknown Venipuncture / Unknown 02/12/2025 6:18 AM EDT 02/12/2025 6:42 AM EDT Silvia RDE LAB BLOOD ORDERABLES Final Re sult Performing Organization Address [facility]/ZIP Co de Phone Number [facility] [address] [place] [address], [place] [phone] * Phosphorus (02/12/2025 6:18 AM EDT) Phosphorus 3.2 2.5 - 4.5 mg/dL LAB CHEMISTRY METHOD 02/12/2025 7:23 AM EDT [facility] Blood Venous blood specimen / Unknown Venipuncture / Unknown 02/12/2025 6:18 AM EDT 02/12/2025 6:42 AM EDT Silvia RED LAB BLOOD ORDERABLES Final Re sult Performing Organization Address [facility] Co de Phone Number [facility] [address] [place] [address], * Magnesium (02/12/2025 6:18 AM EDT) [facility] Magnesium 1.9 1.9 - 2.6 mg/dL LAB CHEMISTRY METHOD 02/12/2025 7:23 AM EDT [facility] Blood Venous blood specimen / Unknown Venipuncture / Unknown 02/12/2025 6:18 AM EDT 02/12/2025 6:42 AM EDT Silvia RED LAB BLOOD ORDERABLES Final Re sult Performing Organization Address City/[facility]/ZIP Co de Phone Number [facility] [address] [place] [address], [place] [phone] * (ABNORMAL) Basic metabolic panel (02/12/2025 6:18 AM EDT) Sodium 138 133 - 145 mmol/L LAB CHEMISTRY METHOD 02/12/2025 7:23 AM EDT [facility] Potassium 4.3 3.5 - 5.5 mmol/L LAB CHEMISTRY METHOD 02/12/2025 7:23 AM [facility] Chloride 107 96 - 110 mmol/L LAB CHEMISTRY METHOD 02/12/2025 7:23 AM [facility] CO2 27 21 - 32 mmol/L LAB CHEMISTRY METHOD 02/12/2025 7:23 AM [facility] Anion Gap 4 3 - 11 LAB CHEMISTRY METHOD 02/12/2025 7:23 AM [facility] Glucose 148(H) 70 - 100 mg/dL LAB CHEMISTRY METHOD 02/12/2025 7:23 AM [facility] BUN 15 5 - 25 mg/dL LAB CHEMISTRY METHOD 02/12/2025 7:23 AM [facility] Creatinine 0.98 0.50 - 1.10 mg/dL LAB CHEMISTRY METHOD 02/12/2025 7:23 AM [facility] eGFR 69 >=60 mL/min/1. 73m2 LAB CHEMISTRY METHOD 02/12/2025 7:23 AM [facility] Comment:Calculation based on the Chronic Kidney Disease Epidemiology Collaboration (CKD-EPI) equation refit without adjustment for race. BUN/Creatinine Ratio 15.3 LAB CHEMISTRY METHOD 02/12/2025 7:23 AM [facility] Calcium 8.9 8.5 - 10.5 mg/dL LAB CHEMISTRY METHOD 02/12/2025 7:23 AM [facility] Blood Venous blood specimen / Unknown Venipuncture / Unknown 02/12/2025 6:18 AM EDT 02/12/2025 6:42 AM EDT us Silvia RED LAB BLOOD ORDERABLES Final Re sult [facility] [address] [place] [address], [place] [phone] * XR Chest 1 View (02/12/2025 5:45 [...] Signed Date: 02/12/2025 08:29 ET Workstation ID: [id number] Transcribed By: Self Edit Transcribed Date: 02/12/2025 [...] Signed Date: 02/12/2025 08:29 ET Workstation ID: [id number] Transcribed By: Self Edit Transcribed Date: 02/12/2025 08:28 ET us Silvia RED IMG XR PROCEDURES Final Resul t * Tissue exam (02/11/2025 9:42 AM EDT) Final Diagnosis A. Sternum, Xiphoid: -BENIGN CARTILAGE, CONSISTENT WITH STERNUM/XIPHOID B. Thymus-thymectom y: -SIMPLE (BENIGN) THYMIC CYSTS (2) 02/13/2025 12:57 PM EDT [facility]) [facility] Gross Description A. Sternum, Xiphoid: Labeled [...] Inking code: Blue-inferior Green-anterior Yellow-right Black-posterior Red-superior [place]-left Synthetic Plasterer sections are submitted as follows: 1-4, complete [...] piece each [place] 02/13/2025 12:57 PM EDT [facility] Disclaimer Unless otherwise specified, all tissue is 10% NB formalin fixed and paraffin embedded. 02/13/2025 12:57 PM EDT [facility] Bone Bone structure of sternum / Unknown 02/11/2025 9:42 AM EDT 02/11/2025 1:05 PM EDT Tissue specimen (specimen) Thymus gland structure / Unknown 02/11/2025 11:59 AM EDT 02/11/2025 12:20 PM EDT us Bessy Kern MD LAB PATHOLOGY ORDERABLES Final R esult [facility] [address] [place] [address], * TH AN ARTERIAL LINE (CHARGE) (02/11/2025 [...] to verify the correct patient, procedure, equipment, human resources support specialist and site/side marked as required. Preparation: Patient [...] and Staff Patient location during procedure: OR Resident/FINISHING FRAME RUNNER: Chuy Dickson CRNA Performed: resident/FINISHING FRAME RUNNER/CAA Performed by: Chuy Dickson CRNA Authorized by: [...] Units (02/11/2025 8:51 AM EDT) Product Code [id number] 02/12/2025 6:52 AM EDT [facility] Unit Number [id number] [facility] 02/11/2025 9:07 [facility] Dispense Status Released From Crossmatch 02/12/2025 6:52 AM [facility] Unit ABO Rh OPOS 02/12/2025 6:52 [facility] Unit Expiration Date Time [id number] 02/12/2025 6:52 AM [facility] Unit Blood Type 5100 02/12/2025 6:52 AM [facility] Product Code [id number] 02/12/2025 6:52 [facility] Unit Number [id number] 02/13/20 6:52 [facility] Crossmatch Compatible 02/11/2025 9:09 AM [facility] Dispense Status Released From Crossmatch 02/12/2025 6:52 [facility] Unit ABO Rh OPOS 02/12/2025 6:52 AM EDT [facility] Unit Expiration Date Time [id number] 02/12/2025 6:52 AM EDT [facility]) [facility] Unit Blood Type 5100 02/12/2025 6:52 AM EDT [facility] Blood Venous blood specimen / Unknown 02/11/2025 8:51 AM EDT 02/03/2025 2:31 PM EDT Silvia RED BLOOD BANK PRODUCT ORDERABLES Final Result [facility]) [facility] [address] [place] [address], from Last 3 Months Insurance MEDICAID - [...] currently active code status orders. Care Teams Aeronautical Engineering Teacher Relationship Specialty Start Date End Date Mychal Long MD [address] [place] [address] [place] [phone] PCP - General 12/26/11
[2025-05-12 14:22] LABS: Creatinine POC 1.1 mg/dL (0.5-1.4); GFR POC 55
== END 2025-05-12 10:32 | disposition home or self-care (01) ==
LOC: HO.CT 10:31
PROVIDERS: PCP Internal Medicine; Visit Provider Nurse Practitioner Family
DX: R06.00 Dyspnea, unspecified (principal); R07.89 Other chest pain
CPT/HCPCS: 71275; 82565

== ENCOUNTER → 2025-05-12 10:33 | Outpatient (BNV) | payer MEDICAID, SELFPAY | PROVIDERS: PCP Internal Medicine; Visit Provider Radiology Diagnostic Radiology | DX: J90 Pleural effusion, not elsewhere classified (principal) | CPT/HCPCS: 71275 ==

== ENCOUNTER 2025-05-14 10:33 | Outpatient (AMB) | payer MEDICAID, SELFPAY ==
--- NOTE | 2025-05-14 10:54 | A.OFFVIS_ITS ---
Vital Signs 05/14/25 11:03 Height 5 ft 3 in Weight 207 lb 10.807 oz BMI 36.8 BP 145/82 H Blood Pressure Location Lt brachial Position Sitting Pulse 88 Pulse Source Pulse Oximeter Pulse Oximetry (%) 98 Oxygen Delivery Method Room Air Intake Visit Reasons: follow up Intake Note: Patient presents for bilateral Osteoarthritis on both knees follow up. Accessories Repairer Required: Yes Accessories Repairer Language: Acid Tester Services: Accessories Repairer Offered & Declined Information Interpreted: non-clinical & clinical Allergies metronidazole Allergy (Severe, Verified 05/14/25 11:02) vomiting Penicillins Allergy (Mild, Verified 05/14/25 11:02) VAGINAL FUNGUS INFECTION lisinopril (LISINOPRIL) Allergy (Unknown, Verified 05/14/25 11:02) COUGH verapamil Allergy (Unknown, Verified 05/14/25 11:02) unknown amoxicillin Adverse Reaction (Verified 05/14/25 11:02) Unknown Medication List - Last Reconciled 05/14/25 by Brigid Wets MD albuterol sulfate 90 mcg/actuation (Ventolin HFA) 2 puffs PO Q4H PRN amlodipine 10 mg PO DAILY blood pressure test kit-large As directed cholecalciferol (vitamin D3) (Vitamin D3) 50 mcg PO DAILY clonazepam 1 mg PO TID PRN dexlansoprazole (Dexilant) 60 mg PO DAILY 30 days fluticasone furoate-vilanterol 200-25 mcg/dose (Breo Ellipta) 1 inh inhalation DAILY hydrocortisone 2.5% (Proctosol HC) 1 appl WI BID lidocaine 5% patches topical losartan 100 mg PO DAILY minoxidil 2.5 mg PO QAM nicotine (polacrilex) 2 mg buccal Q8H PRN sennosides (senna) 1-2 tabs qhs orally bedtime; 30 days solifenacin (Vesicare) 10 mg PO DAILY tramadol 50 mg PO TID PRN 30 days zolpidem 10 mg PO BEDTIME PRN HPI Comments Details: Patient is a 54 y.o. female depression, hypertension who is here today for follow up of polyarticular osteoarthritis and fibromyalgia Interval History: Patient last seen 11/14/24. - On Tramadol 50mg tid prn - Completed Euflexxa series Today - On Tramadol 50mg tid prn - Euflexxa was beneficial, still having efficacy - Has pulmonary nodules and had CT surgery to remove same, patient unaware of pathology results Rheumatologic History: Patient established care with Rheumatology 01/30/2022 Fibromyalgia and polyarticular osteoarthritis She has tried and failed Lyrica, gabapentin cymbalta, amitriptyline, and her insurance did not approve Savella. She estimates that she gets 6 hours of sleep at night and is taking ambien. Unable to get tramadol due to insurance issues and baclofen did not help Current Rheumatology Medication(s): Tramadol 50mg tid prn PFSH Medical History Cataract, right eye Bilateral primary osteoarthritis of knee Gallstone pancreatitis Palpitations Fibromyalgia Depression Glaucoma HTN (hypertension) Surgical History H/O colonoscopy History of tubal ligation Hx of carpal tunnel repair Hx of cholecystectomy Hx of knee surgery Family History Father Kidney disease Mother CVD (cardiovascular disease) Colon cancer Social History Alcohol intake: never Patient Tobacco Use Status: Current everyday Tobacco user Cigarette Packs Per Day: 0.5 Cigarettes Per Day: 10 Years Smoked: 30 Female Reproductive History Menstrual Age of Menarche: 9 Review of Systems Const Details: Review of Systems Constitutional: Denies fever, chills, weight loss ENT: Denies vision changes, eye pain or eye redness, dental caries, dry mouth GI: Denies nausea, vomiting, diarrhea, abdominal pain, change in BM Pulm: Denies hemoptysis, wheezing. +SOB and PRASAD Cards: Denies chest pain, palpitations Skin: Denies Raynaud's, rash, nail changes, photosensitivity, PROCESS ENVIRONMENTAL TECHNICIAN: Denies headaches, weakness, paresthesias, recurrent falls MSK: as per HPI All other systems reviewed and are unremarkable except noted above Physical Exam Exam Exam: Vital signs reviewed Physical Examination CONSTITUITIONAL Patient alert and cooperative. Well appearing and in no apparent painful distress MSK Hands * Right Hand: Able to make a fist. No swelling or tenderness to palpation of the MCPs, PIPs or DIPs. * Left Hand: Able to make a fist. No swelling or tenderness to palpation of the MCPs, PIPs or DIPs. * Herbedens nodes noted Wrists * Right Wrist: Full ROM to flexion and extension. No swelling or TTP * Left Wrist: Full ROM to flexion and extension. No swelling or TTP Elbows * Right Elbow: Full ROM. No swelling or TTP. No TTP of the medial epicondyle. No TTP of the lateral epicondyle * Left Elbow: Full ROM. No swelling or TTP. No TTP of the medial epicondyle. No TTP of the lateral epicondyle Shoulders * Right shoulder: No swelling noted. No TTP of the AC joint. No TTP of the subacromial bursa. No TTP of the posterior shoulder * Left shoulder: No swelling noted. No TTP of the AC joint. No TTP of the subacromial bursa. No TTP of the posterior shoulder Hip bursa: Tenderness to palpation bilaterally Knees * Right knee: Full ROM. No swelling noted. No TTP of the knee joint line. No TTP of pes anserine bursa * Left knee: Full ROM. No swelling noted. No TTP of the knee joint line. No TTP of pes anserine bursa. Ankles * Right ankle: Good ankle dorsiflexion and plantar flexion. No swelling. No TTP of the ankle joint * Left ankle: Good ankle dorsiflexion and plantar flexion. No swelling. No TTP of the ankle joint Feet * Right foot: Negative squeeze test * Left foot: Negative squeeze test Tender points? * Tenderness to palpation of the bilateral trapezius, supraspinatus, anterior costochondral junctions, bilateral suboccipital muscle insertions SKIN No rashes Vital Signs: Last Vital Signs Pulse 88 05/14/25 11:03 BP 145/82 H 05/14/25 11:03 Pulse Ox 98 05/14/25 11:03 Oxygen Delivery Method Room Air 05/14/25 11:03 BMI result Body Mass Index 36.8 Results Reviewed Results Reviewed: XR Bilateral Knees 09/2024 FINDINGS (Right): There is mild loss of medial and patellofemoral compartment joint space. There is no visible acute fracture or dislocation. There is anterior superior patellar enthesophyte. No joint effusion seen FINDINGS (Left): On AP bilateral knee standing there is loss of medial and lateral compartment joint spaces in both knees. There is loss of lateral femoral compartment joint space with anterior superior an lateral patellar enthesophytes. No visible acute fracture, dislocation or subluxation seen. No loose bodies or soft tissue swelling. Assessment & Plan Assessment & Plan (1) Fibromyalgia: Code(s): M79.7 - Fibromyalgia Category: Medical Plan: #Fibromyalgia Patient is a 54 y.o. female with fibromyalgia but continues to have widespread pain. Has tried Lyrica, gabapentin, Cymbalta, amitriptyline and her insurance did not approve Savella. Now has also failed baclofen. Discussed at length with patient about fibromyalgia and the chronicity of the disease. Will increase Tramadol to see if that provides additional benefit for patient Plan - Tramadol 100mg tid prn - Daily stretches (2) Bilateral primary osteoarthritis of knee: Code(s): M17.0 - Bilateral primary osteoarthritis of knee Category: Medical Plan: #Bilateral Knee OA Patient is a 54-year-old female with bilateral knee OA. Previously failed topical diclofenac and physical therapy. s/p Euflexxa with benefit Plan - RTC prn for repeat gel injections Plan I spent 20 minutes reviewing the record and labs, seeing the patient, discussing the treatment plan and documenting in the medical record ? Medications: Changed From tramadol 50 mg PO TID 30 days PRN 90 tabs 5RF pain M17.0 - Bilateral primary osteoarthritis of knee, M79.7 - Fibromyalgia To tramadol 100 mg (2 x 50 mg) PO TID 180 tabs 5RF 30 days M17.0 - Bilateral primary osteoarthritis of knee, M79.7 - Fibromyalgia Coding Level of Care Code Est Pt Level 3 (70454) Diagnoses Fibromyalgia M79.7 Bilateral primary osteoarthritis of knee M17.0
[2025-05-14 11:03] VITALS: BP 145/82; PULSE 88; O2SAT 98; BMI 36.8
--- OUTSIDE RECORDS SUMMARY | 2025-05-14 11:57 | XMS_ITS | Encounter Summary ---
Author Organization [employer] Address [address] [place] [address] 7 [place] [address] Care Team Providers Care Police Matron Name Role Phone Mychal Fields MD Primary Care Provide r Hima Fam Unavailable Unavailable Yaneth Dotson RN Unavailable [phone] Mckenzie Silverio Unavailable Reason for Visit * Reason Onset Date Comments Appointment Request 12/04/2022 Encounter Details Date Type Department Care Team ([facility] st Contact Info) Description 12/04/2022 Telephone [facility] [address] [place], [place] [phone] Mychal Fields MD [address] [place], [place] [phone] Appointment Request Social History Tobacco Use Types [...] ff/u Bp ) Please contact pt at [phone] * Telephone Encounter - Wesley Collins - 12/04/2022 2:02 PM EDT Tc from pt requesting to r/s appt on 10/19/22 ( ff/u Bp ) Please contact pt at [phone] documented in this encounter Plan of Treatment Upcoming Encounters Date Type Department Care Team (Late st Contact Info) Description 07/24/2025 2:00 PM EST Office Visit [facility] [address] [place] [address] Manjeet Deluca MD [address] [place] [address] documented as of this encounter Visit Diagnoses Not on filedocumented in this encounter Additional Health Concerns Assessment Noted Time PHQ-9 Depression Total Score: 7 10/09/19 4:00 PM EST documented as of this encounter Care Teams Police Matron Relationship Specialty Start Date End Date Mychal Fields MD [address] [place] [address] PCP - General Internal Medicine 04/30/14 Hima Fam FNP [address] [place] [address] Nurse Practitioner Family Medicine 08/01/23 Yaneth Dotson, ALAN [address] [place] [address] Registered Nurse Family Medicine 02/24/25 Mckenzie Silverio 02/24/25 [employer] 02/13/25 03/29/25 documented as of this encounter
--- OUTSIDE RECORDS SUMMARY | 2025-05-14 11:57 | XMS_ITS | Encounter Summary ---
Author Organization [employer] Address [address] [place] [address] [address] [place] [address] Care Team Providers Care Qa Software Test Engineer Name Role Phone Mychal Fields MD Primary Care Provide r Hima Fam Unavailable Unavailable Yaneth Dotson RN Unavailable [phone] Mckenzie Silverio Unavailable Reason for Visit * Reason Comments Med Refill Encounter Details Date Type Department Care Team (Late st Contact Info) Description 05/12/[address] [facility] [address] [place], [place] [phone] Mychal Fields MD [address] [place], [place] [phone] Anxiety and depression Social History Tobacco Use [...] the past 12 months, has t he [employer], gas, oil or water company threatened to [...] Description 07/24/2025 2:00 PM EST Office Visit [facility] [address] [place] [address] Manjeet Deluca MD [address] [place] [address] documented as of this encounter Visit Diagnoses Diagnosis Anxiety and depression documented in this encounter Additional Health Concerns Assessment Noted Time PHQ-9 Depression Total Score: 15 025 12:51 PM EDT documented as of this encounter Care Teams Qa Software Test Engineer Relationship Specialty Start Date End Date Mychal Fields MD [address] [place] [address] PCP - General Internal Medicine 04/30/14 Hima Fam FNP [address] [place] [address] Nurse Practitioner Family Medicine 08/01/23 Yaneth Dotson RN [address] [place] [address] Registered Nurse Family Medicine 02/24/25 Mckenzie Silverio 02/24/25 documented as of this encounter
--- OUTSIDE RECORDS SUMMARY | 2025-05-14 11:57 | XMS_ITS | Encounter Summary ---
Author Organization [employer] Address [address] [place] [address] 7t [place] [address] Care Team Providers Care Field Artillery Cannoneer Name Role Phone Mychal Fields MD Primary Care Provide r Hima Fam Unavailable Unavailable Yaneth Dotson RN Unavailable [phone] Mckenzie Silverio Unavailable Encounter Details Date Type Department Care Team (Late st Contact Info) Description 12/05/2022 Orders Only [facility] & PEDS [address] [place], [place] [phone] Veda Isabel LPN Social History Tobacco Use [...] Office Visit [facility] [address] [place], [place] [phone] Manjeet Deluca MD [address] [place], [place] [phone] documented as of this encounter Visit Diagnoses Not on filedocumented in this encounter Additional Health Concerns Assessment Noted Time PHQ-9 Depression Total Score: 7 10/09/19 23 4:00 PM EST documented as of this encounter Care Teams Field Artillery Cannoneer Relationship Specialty Start Date End Date Mychal Fields MD [address] [place] [address] PCP - General Internal Medicine 04/30/14 Hima Fam FNP [address] [place] [address] Nurse Practitioner Family Medicine 08/01/23 Yaneth Dotson, ALAN [address] [place] [address] Registered Nurse Family Medicine 02/24/25 Mckenzie Silverio 02/24/25 [employer] 02/13/25 03/29/25 documented as of this encounter
--- OUTSIDE RECORDS SUMMARY | 2025-05-14 11:58 | XMS_ITS ---
Author Organization [employer] Address [address] [place] [address] 7t [place] [address] Care Team Providers Care Lunchroom Operator Name Role Phone Mychal Fields MD Primary Care Provide r Hima Fam Unavailable Unavailable Yaneth Dotson RN Unavailable [phone] Mckenzie Silverio Unavailable CM Complex Status:Enrolled (Active) Start date:02/24/2025 Enrollment date:03/04/2025 Enrollment reason:ADT Feed Overview ED- Pt went to [facility] ED on 02/23/25. Case Team Name Relationship Phone Yaneth Dotson RN(Responsible Staff) Registered Nurse [phone] Continued Care and Services Coordination
--- OUTSIDE RECORDS SUMMARY | 2025-05-14 11:58 | XMS_ITS | Encounter Summary ---
Author Organization [employer] Address [address] [place] [address] 7t [place] [address] Care Team Providers Care Inventory Manager Name Role Phone Mychal Fields MD Primary Care Provide r Hima Fam Unavailable Unavailable Yaneth Dotson RN Unavailable [phone] Mckenzie Silverio Unavailable Reason for Visit * Reason Comments Med Refill Encounter Details Date Type Department Care Team (Late st Contact Info) Description 07/27/2023 Refill [facility] [address] [place], [place] [phone] Mychal Fields MD [address] [place], [place] [phone] Social History Tobacco Use Types Packs/Day Years [...] Description 07/24/2025 2:00 PM EST Office Visit [facility] [address] [place] [address] Manjeet Deluca MD [address] [place], [place] documented as of this encounter Visit Diagnoses Not on filedocumented in this encounter Additional Health Concerns Assessment Noted Time PHQ-9 Depression Total Score: 0 05/10/20 23 10:38 AM EDT documented as of this encounter Care Teams Inventory Manager Relationship Specialty Start Date End Date Mychal Fields MD [address] [place] [address] PCP - General Internal Medicine 04/30/14 Hima Fam FNP [address] [place], [place] Nurse Practitioner Family Medicine 08/01/23 Yaneth Dotson, ALAN [address] [place] [address] Registered Nurse Family Medicine 02/24/25 Mckenzie Silverio 02/24/25 [employer] 02/13/25 03/29/25 documented as of this encounter
--- OUTSIDE RECORDS SUMMARY | 2025-05-14 11:58 | XMS_ITS | Encounter Summary ---
Author Organization [employer] Address [address] [facility] 7t [place] [address] Care Team Providers Care Auricular Detoxification Specialist Name Role Phone Mychal Fields MD Primary Care Provide r Hima Fam Unavailable Unavailable Yaneth Dotson RN Unavailable [phone] Mckenzie Silverio Unavailable Encounter Details Date Type Department Care Team (Late st Contact Info) Description 05/12/2025 Orders Only [facility] External Provider, [facility] Social History Tobacco Use Types Packs/Day [...] Description 07/24/2025 2:00 PM EST Office Visit [facility] [address] [place] [address] Manjeet Deluca MD [address] [place] [address] documented as of this encounter Procedures Procedure Name Priority Date/Time Associated Diagnosis Comments POCT CREATININE GFR Routine 05/12/2025 1 0:39 AM EDT CTA CHEST PE PROTOCAL Routine 05/12/2025 10:36 AM EDT documented in this encounter Results * POCT Creatinine GFR (05/12/2025 10:39 AM EDT) POCT Creatinine 1.1 0.5 - 1.4 mg/dL [facility] GFR POC 55 [facility] Comment:Chronic Kidney Disea se: Estimated GFR < 60 mL/min/1.89w8Rfrrtp Kidney Disease: Estimated GFR < 15 mL/min/1.73m2 05/12/2025 10:3 9 AM EDT 05/12/2025 2:20 PM EDT Narrative [facility] - 05/12/2025 2:22 PM EDT [id number] us Generic External Data Provider LAB POINT OF CARE TEST DOCKED DEVICE ORDERABLES Final Result [facility] [address] [place] [phone] * CTA Chest PE Protocal (05/12/2025 10:36 AM EDT) Anatomical Region Laterality Modality Body, Chest Computed Tomogra phy 05/12/2025 10:3 6 AM EDT Narrative 05/12/2025 11:22 AM EDT [address] [address] [address] Scan Report Signed Patient: Elaine Rodas MR#: [id number] : 1970 Acct:[id number] Age/Sex: 54 / F ADM Date: 05/12/25 Loc: HO.CT Attending Dr: Amy Zimmerman NP Ordering Physician: Amy Zimmerman NP Date of Service: 05/12/25 Procedure(s): CT angio chest PE protocol Accession Number(s): [id number] cc: Mychal Long MD; Amy Zimmerman NP Report Number: [id number]: Total DLP = 150.00 mGy-cm Reason for [...] 05/12/25 1119 DD/ 1036 TD/TT: 05/12/25 1100 Pododermatologist: Procedure Note Donotuseinterpreter, Image - 05/12/[address] [address] [address] Scan Report Signed Patient: Elaine RodasMR#: [id number] : 1970Acct:[id number] Age/Sex: 54 / FADM Date: 05/12/25 Loc: HO.CT Attending Dr: Amy Zimmerman NP Ordering Physician: Amy Zimmerman NP Date of Service: 05/12/25 Procedure(s): CT angio chest PE protocol Accession Number(s): [id number] cc: Mychal Long MD; Amy Zimmerman NP Report Number: [id number]: Total DLP = 150.00 mGy-cm Reason for [...] 05/12/25 1119 DD/ 1036 TD/TT: 05/12/25 1100 Pododermatologist: [facility] External Provider IMG CT PROCEDURES Final Result documented in this encounter Visit Diagnoses Not on filedocumented in this encounter Additional Health Concerns Assessment Noted Time PHQ-9 Depression Total Score: 15 025 12:51 PM EDT documented as of this encounter Care Teams Auricular Detoxification Specialist Relationship Specialty Start Date End Date Mychal Fields MD [address] [place] [address] PCP - General Internal Medicine 04/30/14 Hima Fam FNP [address] [place] [address] Nurse Practitioner Family Medicine 08/01/23 Yaneth Dotson, ALAN [address] [place] [address] Registered Nurse Family Medicine 02/24/25 Mckenzie Silverio 02/24/25 documented as of this encounter
--- OUTSIDE RECORDS SUMMARY | 2025-05-14 11:58 | XMS_ITS ---
Author Organization [employer] Address [address] [place] [address] 7 [place] [address] Care Team Providers Care Soil Technologist Name Role Phone Mychal Fields MD Primary Care Provide r Hima Fam LOG SAWYER Unavailable Unavailable Yaneth Dotson RN Unavailable [phone] Mckenzie Silverio Unavailable CHW Complex Status:Enrolled (Active) Start date:02/24/2025 Enrollment date:03/04/2025 Enrollment reason:ADT Feed Overview ED- Pt went to [facility] ED on 02/23/25. Please outreach for enrollment. Case Team Name Relationship Phone Mckenzie Silverio(Responsible Staff) [phone] Continued Care and Services Coordination
--- OUTSIDE RECORDS SUMMARY | 2025-05-14 11:58 | XMS_ITS | Encounter Summary ---
Author Organization [employer] Address [address] [place] [address] 7t [place] [address] Care Team Providers Care Composition Instructor Name Role Phone Mychal Fields MD Primary Care Provide r Hima Fam Unavailable Unavailable Yaneth Dotson RN Unavailable [phone] Mckenzie Silverio Unavailable Encounter Details Date Type Department Care Team (Late st Contact Info) Description 06/11/[address] [facility] [address] [place], [place] [phone] Veda Isabel LPN Social History Tobacco Use [...] 07/24/2025 2:00 PM EST Office Visit [facility] [address] [place] [address] Manjeet Deluca MD [address] [place] [address] documented as of this encounter Visit Diagnoses Not on filedocumented in this encounter Additional Health Concerns Assessment Noted Time PHQ-9 Depression Total Score: 0 05/10/20 23 10:38 AM EDT documented as of this encounter Care Teams Composition Instructor Relationship Specialty Start Date End Date Mychal Fields MD [address] [place] [address] PCP - General Internal Medicine 04/30/14 Hima Fam FNP [address] [place] [address] Nurse Practitioner Family Medicine 08/01/23 Yaneth Dotson, ALAN [address] [place] [address] Registered Nurse Family Medicine 02/24/25 Mckenzie Silverio 02/24/25 [employer] 02/13/25 03/29/25 documented as of this encounter
--- OUTSIDE RECORDS SUMMARY | 2025-05-14 11:58 | XMS_ITS | Clinical Summary ---
Author Organization [facility] [address] [facility] Address [address] [place] [address] Phone Care Team Providers Care Track Welder Name Role Phone Mychal Long MD Primary [...] cancer screening program here at [facility] with her LDCT due December 2025. Patient may follow-up with us here in thoracic surgery on an as-needed basis going forward. Resolved Problems Problem Noted Date Diagnosed Date Resolved Date Mediastinal mass 01/26/2025 02/26/2025 Mediastinal lymphadenopathy 01/26/2025 02/26/2025 Encounters Date Type Department Care Team Description 05/01/2025 4:31 PM EDT - 05/01/2025 11:59 PM EDT Hospital Encounter [facility] Xray [address] [place] [address] Bilateral pleural effusion Discharge Disposition: Home or Self Care 05/01/2025 3:00 PM EDT Office Visit Pulmonology - [place] [address] [facility] [address] [place] [phone] Rosy Rhodes MD Bilateral pleural effusion (Primary Dx) 03/25/2025 Telephone Pulmonology - [place] [address] [facility] [address] [place] [phone] Kylie Simons MA 03/24/2025 5:49 PM EDT - 03/24/2025 11:59 PM EDT Hospital Encounter [facility] Xray [address] [place] [address] Bilateral pleural effusion Discharge Disposition: Home or Self Care 03/24/2025 4:00 PM EDT Office Visit Pulmonology - [place] [address] [facility] [address] [place] [phone] Rosy Rhodes MD Bilateral pleural effusion (Primary Dx); Thymic cyst (CMS/HCC V24) 03/02/2025 2:45 PM EDT - 03/02/2025 11:59 PM EDT Hospital Encounter [facility] Ultrasound [address] [place] [address] Pain in both lower extremities Discharge Disposition: Home or Self Care 02/26/2025 10:15 AM EDT Office Visit Thoracic Surgery - [place] [address] [facility] [address] [place] [phone] Silvia Romeo PA Thymic cyst (CMS/HCC V24) (Primary Dx); Pain in both lower extremities; Tobacco abuse 02/26/2025 10:08 AM EDT - 02/26/2025 11:59 PM EDT Hospital Encounter [facility] Xray [address] [place] [address] Mediastinal mass Discharge Disposition: Home or Self Care 02/26/2025 Telephone Thoracic Surgery - [place] [address] [facility] [address] [place] [phone] Teodora Walker MA 02/13/2025 Telephone Thoracic Surgery - [place] [address] [phone] Marlena Morris RN 02/11/2025 8:30 AM EDT - 02/11/2025 12:30 PM EDT Surgery [facility] Main OR [address] [place] [address] Bessy Kern MD DaVinci thymectomy 02/11/2025 8:29 AM EDT Anesthesia Event [facility] Main OR [address] [place] [phone] Amrita Soto MD Elliott, Barbara J, CRNA 02/11/2025 7:18 AM EDT - 02/12/2025 12:23 PM EDT Hospital Encounter [facility] Intermediate Care Unit B [address] [place] [phone] Bessy Kern MD Bell, Alistair A, MD [...] 3:00 PM EDT Office Visit Pulmonology - [place] [address] [facility] [address] [place] [phone] Rosy Rhodes MD [address] [place] [phone] Health Maintenance Due Date Last Done Comments [...] 05/01/2025 4:36 PM EDT Bilateral pleural effusion DE THORACENTESIS PLEURAL SPACE NEEDLE/CATH ASPIRATION W IMAGING GUIDANCE Routine 05/01/2025 4:29 PM EDT Bilateral pleural effusion DE THORACENTESIS PLEURAL SPACE NEEDLE/CATH ASPIRATION W IMAGING [...] 05/01/2025 3:00 PM EDT Bilateral pleural effusion DE THORACENTESIS PLEURAL SPACE NEEDLE/CATH ASPIRATION W IMAGING [...] and histiocytes present 05/05/2025 8:05 AM EDT [facility] Specimen A Adequacy Satisfactory for evaluation 05/05/2025 8:05 AM EDT [facility] Gross Description A. Pleural Cavity, Left, Pleural Cavity Left: Received 400ml of dark cloudy fluid 1 thin prep, 1 cell block Formalin fixation 7.5 put in formalin at 1330 05/05/2025 8:05 AM EDT [facility] Disclaimer Unless otherwise specified, all tissue is 10% NB formalin fixed and paraffin embedded. Technical cytopathology services provided by [facility], at [address] [place] [phone] (CLIA # [id number]/Jose Paula MD, Hansard Reporter.) 05/05/2025 8:05 AM EDT [facility] Pleural Fluid Structure of left pleural cavity / Unknown 05/04/2025 1:00 PM EDT us Rosy Rhodes MD LAB CYTOLOGY ORDERABLES Fi nal Result [facility] [address] [place] [address], [place] [phone] * XR Chest 2 Views (05/01/2025 4:36 [...] Signed Date: 05/01/2025 16:41 ET Workstation ID: [id number] Transcribed By: Self Edit Transcribed Date: 05/01/2025 [...] Signed Date: 05/01/2025 16:41 ET Workstation ID: [id number] Transcribed By: Self Edit Transcribed Date: 05/01/2025 16:41 ET us Rosy Rhodes MD IMG XR PROCEDURES Final Re sult * DE THORACENTESIS PLEURAL SPACE NEEDLE/CATH ASPIRATION W IMAGING GUIDANCE (05/01/2025 4:29 PM EDT) Narrative Rosy Rhodes MD - 05/01/2025 4:29 PM EDT Rosy Rhodes MD 05/01/2025 4:49 PM Thoracentesis Date/Time: 05/01/2025 4:29 PM Performed by: Rosy Rhodes MD Authorized by: Rosy Rhodes MD Consent: Consent obtained: Verbal Consent given by: Patient Risks discussed: Bleeding, pneumothorax, pain and infection Alternatives discussed: No treatment [place] protocol: Procedure explained and questions answered to [...] midscapular line Intercostal space: 7th Puncture method: Kjtg-cpm-vqvawp catheter Ultrasound guidance: yes Indwelling catheter placed: no Needle gauge: 20 Catheter size: 8 Fr Number of attempts: 1 Fluid characteristics: serous. Post-procedure details: Post-procedure chest x-ray: pending. Procedure completion: Tolerated well, no immediate complications Comments: 350 mL removed, stopped for no further fluid us Rosy Rhodes MD IN CLINIC/BEDSIDE ORDERABL ES Final Result * DE THORACENTESIS PLEURAL SPACE NEEDLE/CATH ASPIRATION W IMAGING GUIDANCE (05/01/2025 4:28 PM EDT) Narrative Rosy Rhodes MD - 05/01/2025 4:28 PM EDT Rosy Rhodes MD 05/01/2025 4:49 PM Thoracentesis Date/Time: 05/01/2025 4:28 PM Performed by: Rosy Rhodes MD Authorized by: Rosy Rhodes MD Consent: Consent obtained: Verbal Consent given by: Patient Risks discussed: Bleeding, infection, pain and pneumothorax Alternatives discussed: No treatment [place] protocol: Procedure explained and questions answered to [...] midscapular line Intercostal space: 7th Puncture method: Husw-fjo-wdpvsq catheter Ultrasound guidance: yes Indwelling catheter placed: [...] LAB HEMETOLOGY METHOD 05/01/2025 6:48 PM EDT [facility] Body Fluid RBC 4,000 /mm3 LAB HEMETOLOGY METHOD 05/01/2025 6:48 PM EDT [facility] Body Fluid Color Yellow 05/01/2025 6:48 PM EDT [facility] Body Fluid Clarity Cloudy 05/01/2025 6:48 PM EDT [facility] Body Fluid Source Pleural 05/01/2025 6:48 PM EDT [facility] Comment:Left Pleural Fluid Structure of left pleural cavity / Unknown 05/01/2025 3:00 PM EDT 05/01/2025 4:48 PM EDT Narrative [facility] - 05/01/2025 6:48 PM EDT No reference ranges have been established for body fluids. Clinical correlation recommended. Rosy Rhodes MD LAB BODY FLUIDS AND STOOLS ORDERABLES Final Result Performing Organization Address [facility] de Phone Number [facility] [address] [place] [address], [place] [phone] * Culture body fluid with gram stain (05/01/2025 3:00 PM EDT) Only the most recent of3 resultswithin the time period is included. Fluid Culture No growth at 3 days LAB MICROBIOLOGY METHOD 05/04/2025 11:15 AM EDT [facility] Gram Stain Result No polymorphonuclear leukocytes, No epithelial cells, and No organisms noted 05/04/2025 11:15 AM EDT [facility] Pleural Fluid Structure of left pleural cavity / Unknown Non-blood Collection / Unknown 05/01/2025 3:00 PM EDT 05/01/2025 4:48 PM EDT Rosy Rhodes MD LAB MICROBIOLOGY - GENERAL ORDERABLES Final Result Performing Organization Address [facility] de Phone Number [facility] [address] [place] [address], [place] [phone] * Differential body fluid (05/01/2025 3:00 PM EDT) Only the most recent of3 resultswithin the time period is included. Fluid Neutrophils % 7 % 05/01/2025 6:44 PM EDT [facility] Fluid Lymphocytes % 42 % 05/01/2025 6:44 PM EDT [facility] Fluid Monocytes/Macrop hages 23 % 05/01/2025 6:44 PM EDT [facility] Fluid Eosinophils % 28 % 05/01/2025 6:44 PM EDT [facility] Fluid Basophils % 0 % 05/01/2025 6:44 PM EDT [facility] Fluid Other Cells % 0 % 05/01/2025 6:44 PM EDT [facility] Pleural Fluid Structure of left pleural cavity / Unknown 05/01/2025 3:00 PM EDT 05/01/2025 4:48 PM EDT Narrative [facility] - 05/01/2025 6:44 PM EDT No reference ranges have been established for body fluids. Clinical correlation recommended. Rosy Rhodes MD LAB BODY FLUIDS AND STOOLS ORDERABLES Final Result Performing Organization Address [facility] Co de Phone Number [facility] [address] [place] [address], [place] [phone] * Protein, body fluid (05/01/2025 3:00 PM EDT) Only the most recent of3 resultswithin the time period is included. Protein, Fluid 5.2 See Comment g/dL LAB CHEMISTRY METHOD 05/01/2025 5:33 PM EDT [facility] Pleural Fluid Structure of left pleural cavity / Unknown Non-blood Collection / Unknown 05/01/2025 3:00 PM EDT 05/01/2025 4:48 PM EDT Narrative [facility] - 05/01/2025 5:33 PM EDT No reference ranges have been established for body fluids. Clinical correlation recommended. us Rosy Rohdes MD LAB BODY FLUIDS AND STOOLS ORDERABLES Final Result Performing Organization Address City/[facility]/ZIP Co de Phone Number [facility] [address] [place] [address], [place] [phone] * Lactate dehydrogenase, body fluid (05/01/2025 3:00 PM EDT) Only the most recent of3 resultswithin the time period is included. LD, Fluid 587 See Comment unit/L LAB CHEMISTRY METHOD 05/01/2025 5:33 PM EDT [facility] Pleural Fluid Structure of left pleural cavity / Unknown Non-blood Collection / Unknown 05/01/2025 3:00 PM EDT 05/01/2025 4:48 PM EDT Narrative [facility] - 05/01/2025 5:33 PM EDT No reference ranges have been established for body fluids. Clinical correlation recommended. Rosy Rhodes MD LAB BODY FLUIDS AND STOOLS ORDERABLES Final Result Performing Organization Address [facility]/ZIP Co de Phone Number [facility] [address] [place] [address], [place] [phone] * Glucose, body fluid (05/01/2025 3:00 PM EDT) Only the most recent of3 resultswithin the time period is included. Pathologist [facility] Glucose, Fluid 103 See Comment mg/dL LAB CHEMISTRY METHOD 05/01/2025 5:33 PM EDT [facility] Pleural Fluid Structure of left pleural cavity / Unknown Non-blood Collection / Unknown 05/01/2025 3:00 PM EDT 05/01/2025 4:48 PM EDT Narrative [facility] - 05/01/2025 5:33 PM EDT No reference ranges have been established for body fluids. Clinical correlation recommended. Rosy Rhodes MD LAB BODY FLUIDS AND STOOLS ORDERABLES Final Result Performing Organization Address City/[facility]/ZIP Co de Phone Number [facility] [address] [place] [address], [place] [phone] * DE THORACENTESIS PLEURAL SPACE NEEDLE/CATH ASPIRATION W IMAGING [...] infection and pneumothorax Alternatives discussed: No treatment [place] protocol: Procedure explained and questions answered to [...] midscapular line Intercostal space: 8th Puncture method: Qfbl-drk-vpyrvn catheter Ultrasound guidance: yes Indwelling catheter placed: [...] -Negative for malignancy 03/25/2025 8:49 AM EDT [facility] Pleural Fluid Structure of right pleural cavity / Unknown Non-blood Collection / Unknown 03/24/2025 5:33 PM EDT 03/24/2025 5:45 PM EDT Rosy Rhodes MD LAB BODY FLUIDS AND STOOLS ORDERABLES Final Result Performing Organization Address [facility]/ZIP Co de Phone Number [facility] [address] [place] [address], [place] [phone] * Triglycerides, body fluid (03/24/2025 5:33 PM EDT) Triglycerides , Fluid 36 See Comment mg/dL LAB CHEMISTRY METHOD 03/25/2025 12:15 PM EDT [facility] Pleural Fluid Structure of right pleural cavity / Unknown Non-blood Collection / Unknown 03/24/2025 5:33 PM EDT 03/24/2025 5:45 PM EDT Narrative [facility] - 03/25/2025 12:15 PM EDT No reference ranges have been established for body fluids. Clinical correlation recommended. Rosy Rhodes MD LAB BODY FLUIDS AND STOOLS ORDERABLES Final Result Performing Organization Address [facility] Co de Phone Number [facility] [address] [place] [address], [place] [phone] * External CT Report (03/17/2025) Anatomical Region [...] Signed Date: 03/02/2025 15:18 ET Workstation ID: [id number] Transcribed By: Self Edit Transcribed Date: 03/02/2025 [...] Signed Date: 03/02/2025 15:18 ET Workstation ID: [id number] Transcribed By: Self Edit Transcribed Date: 03/02/2025 15:17 ET us Silvia RED CV VASCULAR PROCEDURES Final Result * (ABNORMAL) CBC - Every 3 Days (02/12/2025 6:18 AM EDT) WBC 16.2(H) 4.8 - 10.8 K/[facility] LAB HEMETOLOGY METHOD 02/12/2025 7:11 AM EDT [facility] RBC 3.80 3.80 - 4.80 M/[facility] LAB HEMETOLOGY METHOD 02/12/2025 7:[address] [facility] Hemoglobin 11.4(L) 11.5 - 16.0 g/dL LAB HEMETOLOGY METHOD 02/12/2025 7:[address] [facility] Hematocrit 34.5(L) 35.0 - 47.0 % LAB HEMETOLOGY METHOD 02/12/2025 7:[address] [facility] MCV 90.3 79.0 - 98.0 FL LAB HEMETOLOGY METHOD 02/12/2025 7:[address] [facility] MCH 29.8 27.0 - 32.0 pcg LAB HEMETOLOGY METHOD 02/12/2025 7:[address] [facility] MCHC 33.0 32.0 - 37.0 g/dL LAB HEMETOLOGY METHOD 02/12/2025 7:[address] [facility] RDW 13.1 11.0 - 15.0 % LAB HEMETOLOGY METHOD 02/12/2025 7:[address] [facility] Platelets 292 130 - 400 K/mcL LAB HEMETOLOGY METHOD 02/12/2025 7:[address] [facility] MPV 9.9 7.0 - 11.0 FL LAB HEMETOLOGY METHOD 02/12/2025 7:[address] [facility] NRBC 0.0 <1.0 % LAB HEMETOLOGY METHOD 02/12/2025 7:[address] [facility] NRBC Absolute 0.00 <0.10 K/mcL LAB HEMETOLOGY METHOD 02/12/2025 7:[address] [facility] Blood Venous blood specimen / Unknown Venipuncture / Unknown 02/12/2025 6:18 AM EDT 02/12/2025 6:42 AM EDT Silvia RED LAB BLOOD ORDERABLES Final Re sult Performing Organization Address [facility]/ZIP Co de Phone Number [facility] [address] [place] [address], [place] [phone] * Phosphorus (02/12/2025 6:18 AM EDT) Phosphorus 3.2 2.5 - 4.5 mg/dL LAB CHEMISTRY METHOD 02/12/2025 7:23 AM EDT [facility] Blood Venous blood specimen / Unknown Venipuncture / Unknown 02/12/2025 6:18 AM EDT 02/12/2025 6:42 AM EDT Silvia RED LAB BLOOD ORDERABLES Final Re sult Performing Organization Address [facility] Co de Phone Number [facility] [address] [place] [address], * Magnesium (02/12/2025 6:18 AM EDT) [facility] Magnesium 1.9 1.9 - 2.6 mg/dL LAB CHEMISTRY METHOD 02/12/2025 7:23 AM EDT [facility] Blood Venous blood specimen / Unknown Venipuncture / Unknown 02/12/2025 6:18 AM EDT 02/12/2025 6:42 AM EDT Silvia RED LAB BLOOD ORDERABLES Final Re sult Performing Organization Address City/[facility]/ZIP Co de Phone Number [facility] [address] [place] [address], [place] [phone] * (ABNORMAL) Basic metabolic panel (02/12/2025 6:18 AM EDT) Sodium 138 133 - 145 mmol/L LAB CHEMISTRY METHOD 02/12/2025 7:23 AM EDT [facility] Potassium 4.3 3.5 - 5.5 mmol/L LAB CHEMISTRY METHOD 02/12/2025 7:[address] [facility] Chloride 107 96 - 110 mmol/L LAB CHEMISTRY METHOD 02/12/2025 7:[address] [facility] CO2 27 21 - 32 mmol/L LAB CHEMISTRY METHOD 02/12/2025 7:[address] [facility] Anion Gap 4 3 - 11 LAB CHEMISTRY METHOD 02/12/2025 7:[address] [facility] Glucose 148(H) 70 - 100 mg/dL LAB CHEMISTRY METHOD 02/12/2025 7:[address] [facility] BUN 15 5 - 25 mg/dL LAB CHEMISTRY METHOD 02/12/2025 7:[address] [facility] Creatinine 0.98 0.50 - 1.10 mg/dL LAB CHEMISTRY METHOD 02/12/2025 7:[address] [facility] eGFR 69 >=60 mL/min/1. 73m2 LAB CHEMISTRY METHOD 02/12/2025 7:[address] [facility] Comment:Calculation based on the Chronic Kidney Disease Epidemiology Collaboration (CKD-EPI) equation refit without adjustment for race. BUN/Creatinine Ratio 15.3 LAB CHEMISTRY METHOD 02/12/2025 7:[address] [facility] Calcium 8.9 8.5 - 10.5 mg/dL LAB CHEMISTRY METHOD 02/12/2025 7:[address] [facility] Blood Venous blood specimen / Unknown Venipuncture / Unknown 02/12/2025 6:18 AM EDT 02/12/2025 6:42 AM EDT us Silvia RED LAB BLOOD ORDERABLES Final Re sult [facility] [address] [place] [address], [place] [phone] * XR Chest 1 View (02/12/2025 5:45 [...] Signed Date: 02/12/2025 08:29 ET Workstation ID: [id number] Transcribed By: Self Edit Transcribed Date: 02/12/2025 [...] Signed Date: 02/12/2025 08:29 ET Workstation ID: [id number] Transcribed By: Self Edit Transcribed Date: 02/12/2025 08:28 ET us Silvia RED IMG XR PROCEDURES Final Resul t * Tissue exam (02/11/2025 9:42 AM EDT) Final Diagnosis A. Sternum, Xiphoid: -BENIGN CARTILAGE, CONSISTENT WITH STERNUM/XIPHOID B. Thymus-thymectom y: -SIMPLE (BENIGN) THYMIC CYSTS (2) 02/13/2025 12:57 PM EDT [facility] Gross Description A. Sternum, [...] Inking code: Blue-inferior Green-anterior Yellow-right Black-posterior Red-superior [place]-left High Pressure Boiler Operator sections are submitted as follows: 1-4, complete [...] piece each [place] 02/13/2025 12:57 PM EDT [facility] Disclaimer Unless otherwise specified, all tissue is 10% NB formalin fixed and paraffin embedded. 02/13/2025 12:57 PM EDT [facility] Bone Bone structure of sternum / Unknown 02/11/2025 9:42 AM EDT 02/11/2025 1:05 PM EDT Tissue specimen (specimen) Thymus gland structure / Unknown 02/11/2025 11:59 AM EDT 02/11/2025 12:20 PM EDT us Bessy Kern MD LAB PATHOLOGY ORDERABLES Final R esult [facility] [address] [place] [address], * TH AN ARTERIAL LINE (CHARGE) (02/11/2025 [...] to verify the correct patient, procedure, equipment, production support analyst and site/side marked as required. Preparation: Patient [...] and Staff Patient location during procedure: OR Resident/SALES REVIEW CLERK: Chuy Dickson CRNA Performed: resident/SALES REVIEW CLERK/CAA Performed by: Chuy Dickson CRNA Authorized by: [...] Units (02/11/2025 8:51 AM EDT) Product Code [id number] 02/12/2025 6:52 AM EDT [facility] Unit Number [id number] [facility] Dispense Status Released From Crossmatch 02/12/2025 6:[address] [facility] Unit ABO Rh OPOS 02/12/2025 6:52 [facility] Unit Expiration Date Time [id number] 02/12/2025 6:[address] [facility] Unit Blood Type 5100 02/12/2025 6:[address] [facility] Product Code [id number] 02/12/2025 6:52 [facility] Unit Number [id number] 02/13/20 6:[facility] Cross[facility] Compatible 02/11/2025 9:09 [facility] Dispense Status Released From Crossmatch 02/12/2025 6:52 [facility] ABO Rh OPOS 02/12/2025 6:52 AM EDT [facility] Unit Expiration Date Time [id number] 02/12/2025 6:52 AM EDT [facility] Unit Blood Type 5100 02/12/2025 6:52 AM EDT [facility] Blood Venous blood specimen / Unknown 02/11/2025 8:51 AM EDT 02/03/2025 2:31 PM EDT Silvia RED BLOOD BANK PRODUCT ORDERABLES Final Result [facility] [address] [place] [address], from Last 3 Months Insurance MEDICAID - [...] currently active code status orders. Care Teams Track Welder Relationship Specialty Start Date End Date Mychal Long MD [address] [place] [address] [place] [phone] PCP - General 12/26/11
--- OUTSIDE RECORDS SUMMARY | 2025-05-14 11:58 | XMS_ITS | Encounter Summary ---
Author Organization [employer] Address [address] [place] [address] [address] [place] [address] Care Team Providers Care Track Laborer Name Role Phone Mychal Fields MD Primary Care Provide r Hima Fam Unavailable Unavailable Yaneth Dotson RN Unavailable [phone] Mckenzie Silverio Unavailable Reason for Visit * Reason Onset Date Comments PRE OP 11/10/2024 Encounter Details Date Type Department Care Team ([facility] st Contact Info) Description 11/10/2024 Telephone [facility] [address] [place], [place] [phone] Mychal Fields MD [address] [place], [place] [phone] PRE OP Social History Tobacco Use Types [...] No Surgeon's name: Dino Caruso Facility name: [facility] Surgeon's office number: [phone] Surgeon's office fax number: [phone] Contact name (person you spoke with): Karon [...] 2:00 PM EST Office Visit [facility] [address] [place] [phone] Manjeet Deluca MD [address] [place] [phone] documented as of this encounter Visit Diagnoses Not on filedocumented in this encounter Additional Health Concerns Assessment Noted Time PHQ-9 Depression Total Score: 6 09/16/19 10:06 AM EST documented as of this encounter Care Teams Track Laborer Relationship Specialty Start Date End Date Mychal Fields MD [address] [place] [address] PCP - General Internal Medicine 04/30/14 Hima Fam FNP [address] [place] [phone] Nurse Practitioner Family Medicine 08/01/23 Yaneth Dotson, ALAN [address] [place] [phone] Registered Nurse Family Medicine 02/24/25 Mckenzie Silverio 02/24/25 [employer] 02/13/25 03/29/25 documented as of this encounter
--- OUTSIDE RECORDS SUMMARY | 2025-05-14 11:58 | XMS_ITS | Encounter Summary ---
Author Organization [employer] Address [address] [place] [address] 7t [place] [address] Care Team Providers Care Ready Mix Truck Driver Name Role Phone Mychal Fields MD Primary Care Provide r Hima Fam Unavailable Unavailable Yaneth Dotson RN Unavailable [phone] Mckenzie Silverio Unavailable Reason for Visit * Reason Comments Med Change Request Encounter Details Date Type Department Care Team (Late Contact Info) Description 10/19/2022 Refill [facility] [address] [place] [address] [phone] Mychal Fields MD [address] [place] [address] [phone] Fibromyalgia Social History Tobacco Use Types Packs/Day [...] Visit [facility] [address] [place] [address] [phone] Manjeet Deluca MD [address] [place], [place] [phone] documented as of this encounter Visit Diagnoses Diagnosis Fibromyalgia Unspecified myalgia and myositis documented in this encounter Additional Health Concerns Assessment Noted Time PHQ-9 Depression Total Score: 7 10/09/19 23 4:00 PM EST documented as of this encounter Care Teams Ready Mix Truck Driver Relationship Specialty Start Date End Date Mychal Fields MD [address] [place] [address] PCP - General Internal Medicine 04/30/14 Hima Fam FNP [address] [place] [address] Nurse Practitioner Family Medicine 08/01/23 Yaneth Dotson, ALAN [address] [place] [address] Registered Nurse Family Medicine 02/24/25 Mckenzie Silverio 02/24/25 [facility] 02/13/25 03/29/25 documented as of this encounter
--- OUTSIDE RECORDS SUMMARY | 2025-05-14 11:58 | XMS_ITS | Encounter Summary ---
Author Organization [employer] Address [address] [place] [address] 7t [place] [address] Care Team Providers Care Still Operator Name Role Phone Mychal Fields MD Primary Care Provide r Hima Fam Unavailable Unavailable Yaneth Dotson RN Unavailable [phone] Mckenzie Sliverio Unavailable Reason for Visit * Reason Comments Med Refill Encounter Details Date Type Department Care Team (Late st Contact Info) Description 07/27/2023 Refill [facility] [address] [place], [place] [phone] Mychal Fields MD [address] [place], [place] [phone] Social History Tobacco Use Types Packs/Day Years [...] EST Office Visit [facility] [address] [place] [address] Manjeet Deluca MD [address] [place], [place] documented as of this encounter Visit Diagnoses Not on filedocumented in this encounter Additional Health Concerns Assessment Noted Time PHQ-9 Depression Total Score: 0 05/10/20 23 10:38 AM EDT documented as of this encounter Care Teams Still Operator Relationship Specialty Start Date End Date Mychal Fields MD [address] [place] [address] PCP - General Internal Medicine 04/30/14 Hima Fam FNP [address] [place], [place] Nurse Practitioner Family Medicine 08/01/23 Yaneth Dotson, ALAN [address] [place] [address] Registered Nurse Family Medicine 02/24/25 Mckenzie Silverio 02/24/25 [employer] [facility] 02/13/25 03/29/25 documented as of this encounter
--- OUTSIDE RECORDS SUMMARY | 2025-05-14 11:58 | XMS_ITS | Encounter Summary ---
Author Organization [employer] Address [address] [place] [address] 7t [place] [address] Care Team Providers Care Lathe Set Up Person Name Role Phone Mychal Fields MD Primary Care Provide r Hima Fam Unavailable Unavailable Yaneth Dotson RN Unavailable [phone] Mckenzie Silverio Unavailable Reason for Visit * Reason Onset Date Comments Med Refill 04/30/2025 Encounter Details Date Type Department Care Team ([facility] st Contact Info) Description 04/30/[address] [facility] [address] [place], [place] [phone] Mychal Fields MD [address] [place], [place] [phone] Med Refill Social History Tobacco Use Types [...] 1 MG tablet To be sent to: [facility]/pharmacy #[id number] documented in this encounter Plan of Treatment Upcoming Encounters Date Type Department Care Team (Late st Contact Info) Description 07/24/2025 2:00 PM EST Office Visit [facility] [address] [place], [place] [phone] Manjeet Deluca MD [address] [place], [place] [phone] documented as of this encounter Visit Diagnoses Not on filedocumented in this encounter Additional Health Concerns Assessment Noted Time PHQ-9 Depression Total Score: 15 025 12:51 PM EDT documented as of this encounter Care Teams Lathe Set Up Person Relationship Specialty Start Date End Date Mychal Fields MD [address] [place] [address] PCP - General Internal Medicine 04/30/14 Hima Fam FNP [address] [place] [address] Nurse Practitioner Family Medicine 08/01/23 Yaneth Dotson, ALAN [address] [place] [address] Registered Nurse Family Medicine 02/24/25 Mckenzie Silverio 02/24/25 documented as of this encounter
--- OUTSIDE RECORDS SUMMARY | 2025-05-14 11:58 | XMS_ITS | Encounter Summary ---
Author Organization [employer] Address [address] [place] [address] 7t [place] [address] Care Team Providers Care Cyber Security Systems Engineer Name Role Phone Mychal Fields MD Primary Care Provide r Hima Fam Unavailable Unavailable Yaneth Dotson RN Unavailable [phone] Mckenzie Silverio Unavailable Encounter Details Date Type Department Care Team (Late st Contact Info) Description 04/24/[address] [facility] [address] [place] [address] [phone] Zena Harley MD [address] [place] [address] [phone] Acquired clavicle deformity (Primary Dx) Social History [...] 07/24/2025 2:00 PM EST Office Visit [facility] [address] [place] [address] [phone] Manjeet Deluca MD [address] [place] [address] [phone] Scheduled Orders Name Type Priority Associated Diagnoses [...] PM EDT Narrative 05/14/2023 4:45 PM EDT [address] [address] XRay Report Signed Patient: Elaine Rodas MR#: [id number] : 1970 Acct:[id number] Age/Sex: 52 / F ADM Date: 05/14/23 Loc: .ED Attending Dr: Ordering Physician: Vee Castano NP Date of Service: 05/14/23 Procedure(s): XR chest 2V Accession Number(s): [id number] cc: Mychal Long MD; Vee Castano NP [...] in OV> 05/14/23 1642 DD/ 1624 TD/TT: Fire Extinguisher Technician: DORITA Procedure Note Donotuseinterpreter, Image - 05/14/2023 [facility] [address] [place] [address] XRay Report Signed Patient: Elaine RodasMR#: [id number] : 1970Acct:[id number] Age/Sex: 52 / FADM Date: 05/14/23 Loc: HO.ED Attending Dr: Ordering Physician: Vee Castano NP Date of Service: 05/14/23 Procedure(s): XR chest 2V Accession Number(s): [id number] cc: Mychal Long MD; Vee Castano REFERRAL AND INFORMATION AIDE EXAMINATION: XR CHEST CLINICAL INFORMATION: Chest pain [...] in OV> 05/14/23 1642 DD/ 1624 TD/TT: Fire Extinguisher Technician: DORITA us [facility] External Provider IMG XR PROCEDURES Edited Result - Final * XR Foot 3+ Views Right (05/10/2023 11:44 AM EDT) Anatomical Region Laterality Modality Lower Extremities, Foot Right Radiogra phic Imaging 05/10/2023 11:4 4 AM EDT Narrative 05/10/2023 12:08 PM EDT [facility] [address] [place] [address] XRay Report Signed Patient: Elaine Rodas MR#: [id number] : 1970 Acct:[id number] Age/Sex: 52 / F ADM Date: 05/10/23 Loc: HO.HHCX Attending Dr: Mychal Long MD Ordering Physician: Mychal Long MD Date of Service: 05/10/23 Procedure(s): XR foot RT min 3V Accession Number(s): [id number] cc: Mychal Long MD EXAMINATION: XR FOOT, [...] in OV> 05/10/23 1205 DD/ 1144 TD/TT: Fire Extinguisher Technician: YULISSA Procedure Note Donotuseinterpreter, Image - 05/10/[address] [address] XRay Report Signed Patient: Elaine RodasMR#: [id number] : 1970Acct:[id number] Age/Sex: 52 / FADM Date: 05/10/23 [facility]: Mychal Long MD Ordering Physician: Mychal Long MD Date of Service: 05/10/23 Procedure(s): XR foot RT min 3V Accession Number(s): [id number] cc: Mychal Long MD EXAMINATION: XR FOOT, [...] in OV> 05/10/23 1205 DD/ 1144 TD/TT: Fire Extinguisher Technician: YULISSA us Mychal Morris MD IMG XR PROCEDURES Fin al Result * FL Esophagus Barium Swallow w/Air (05/08/2023 10:19 AM EDT) Anatomical Region Laterality Modality Head, Neck Radiographic Hilda ging 05/08/2023 10:1 9 AM EDT Narrative 05/08/2023 4:35 PM EDT [address] [address] Fluoroscopy Report Signed Patient: Elaine Rodas MR#: [id number] : 1970 Acct:[id number] Age/Sex: 52 / F ADM Date: 05/08/23 Loc: [facility] Attending Dr: Mychal Long MD Ordering Physician: Mychal Long MD Date of Service: 05/08/23 Procedure(s): FL barium swallow with air Accession Number(s): [id number] cc: Mychal Long MD EXAMINATION: XR FLUOROSCOPY [...] in OV> 05/08/23 1632 DD/ 1019 TD/TT: Fire Extinguisher Technician: Procedure Note Donotuseinterpreter, Image - 05/08/2023 [place] [address] Fluoroscopy Report Signed Patient: Elaine RodasMR#: [id number] : 1970Acct:[id number] Age/Sex: 52 / FADM Date: 05/08/23 Loc: HO.XRAY Attending Dr: Mychal Long MD Ordering Physician: Mychal Long MD Date of Service: 05/08/23 Procedure(s): FL barium swallow with air Accession Number(s): [id number] cc: Mychal Long MD EXAMINATION: XR FLUOROSCOPY [...] in OV> 05/08/23 1632 DD/ 1019 TD/TT: Fire Extinguisher Technician: us Mychal Morris MD IMG FLUOROSCOPY PROCE DURES Final Result documented in this encounter Visit Diagnoses Diagnosis 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
--- OUTSIDE RECORDS SUMMARY | 2025-05-14 11:58 | XMS_ITS | Encounter Summary ---
Author Organization [employer] Address [address] [place] [address] 7t [place] [address] Care Team Providers Care Ceo Ziff Davis Name Role Phone Mychal Fields MD Primary Care Provide r Hima Fam Unavailable Unavailable Yaneth Dotson RN Unavailable [phone] Mckenzie Silverio Unavailable Reason for Visit * Reason Comments Med Refill Encounter Details Date Type Department Care Team (Late st Contact Info) Description 10/05/2022 Refill [facility] [address] [place] [address] Hima Fam FNP Anxiety state Social History [...] Description 07/24/2025 2:00 PM EST Office Visit [facility] [address] [place] [address] Manjeet Deluca MD [address] [place] [address] documented as of this encounter Visit Diagnoses Diagnosis Anxiety state Anxiety state, unspecified documented in this encounter Care Teams Ceo Ziff Davis Relationship Specialty Start Date End Date Mychal Fields MD [address] [place] [address] PCP - General Internal Medicine 04/30/14 Hima Fam FNP [address] [place] [address] Nurse Practitioner Family Medicine 08/01/23 Yaneth Dotson RN [address] [place] [address] Registered Nurse Family Medicine 02/24/25 Mckenzie Silverio 02/24/25 [facility] 02/13/25 03/29/25 documented as of this encounter
--- OUTSIDE RECORDS SUMMARY | 2025-05-14 11:58 | XMS_ITS | Encounter Summary ---
Author Organization [employer] Address [address] [facility] 7t [place] [address] Care Team Providers Care Industrial Servicer Name Role Phone Mychal Fields MD Primary Care Provide r Hima Fam Unavailable Unavailable Yaneth Dotson RN Unavailable [phone] Mckenzie Silverio Unavailable Reason for Visit * Reason Comments Med Refill Encounter Details Date Type Department Care Team (Late st Contact Info) Description 10/06/2024 Refill [facility] [address] [place], [place] [phone] Mychal Fields MD [address] [place] [address] Anxiety and depression Social History Tobacco Use [...] Description 07/24/2025 2:00 PM EST Office Visit [facility] [address] [place] [address] Manjeet Deluca MD [address] [place] [address] documented as of this encounter Visit Diagnoses Diagnosis Anxiety and depression documented in this encounter Additional Health Concerns Assessment Noted Time PHQ-9 Depression Total Score: 6 09/16/19 25 10:06 AM EST documented as of this encounter Care Teams Industrial Servicer Relationship Specialty Start Date End Date Mychal Fields MD [address] [place] [address] PCP - General Internal Medicine 04/30/14 Hima Fam FNP [address] [place] [address] Nurse Practitioner Family Medicine 08/01/23 Yaneth Dotson, ALAN [address] [place] [address] Registered Nurse Family Medicine 02/24/25 Mckenzie Silverio 02/24/25 [employer] [facility] 02/13/25 03/29/25 documented as of this encounter
--- OUTSIDE RECORDS SUMMARY | 2025-05-14 11:58 | XMS_ITS | Clinical Summary ---
Author Organization [employer] Address [address] [place] [address] 7[address] [place] [address] Care Team Providers Care Independent Jeweler Name Role Phone Mychal Fields MD Primary Care Provide r Hima Fam Unavailable Unavailable Yaneth Dotson RN Unavailable [phone] Mckenzie Silverio Unavailable Allergies Active Allergy Reactions [...] (two) hours if needed. 024 Active rizatriptan FILTERATION OPERATOR (Maxalt-FILTERATION OPERATOR) 5 MG disintegrating tablet 024 Active terbinafine [...] EVERY DAY 90 tablet 2 025 Active lidocaine (Lidoderm) 5 % patchIndications: [...] NEEDED FOR SLEEP 30 tablet 025 Active amLODIPine (Norvasc) 10 [...] We are trying to get her to [facility] before the lab and xray close but [...] reports she has completed thyroid ultrasound at [facility], notes not available at this time [...] EDT): Pelvis exam indicative of this Plan: MAIL OFFICER referral Right foot pain 05/10/2023 Assessment & [...] CT results patient was referred to Dr. Rousou, thoracic surgery for further evaluation. She ultimately [...] with no good results, cannot tolerate NSAIDS [facility] neurology is not accepting new patients at the moment. Will try to refer to a different Neurologist perhaps at [facility] Assessment & Plan (01/17/2024 1:06 PM [...] will also be referring to Neurology at [facility] Assessment & Plan [...] who retired Pt has a therapist at [facility] I recommended she speak with therapist about referral to agency psychiatrist, unfortunatelly they do not have any availability In the meantime I will manage medications if necessary. Plan: Continue: clonazePAM (KlonoPIN) 1 MG tablet hydrOXYzine HCl (Atarax) 25 MG tablet zolpidem (Ambien) 10 MG tablet Will refer to our director safety Assessment & Plan (05/15/2024 1:34 PM EDT): Patient has tried many different antidepressants and mood stabilizers but she was intolerant of everything. She is doing reasonably well. Her panic attacks respond to Hydroxyzine 25 mg prn. She takes Clonazepam 1 mg TID prn. And Ambien 10 mg at bedtime. This was prescribed by Hima Fam who recently retired Pt has a therapist at [facility] I recommended she speak with therapist about [...] used to be under the care of training and documentation specialist who had been prescribing Baclofen Assessment [...] used to be under the care of training and documentation specialist who had been prescribing tramadol 100mg [...] without neural impingement. Pt was seen at [facility] 04/2023 and has a [...] without neural impingement. Pt was seen at [facility] recently has a follow [...] neural impingement. [facility] 02/21/2012 Assessment & Plan (04/03/2023 [...] Date Type Department Care Team Description 05/12/2025 Refill [facility] [address] [place] [phone] Mychal Fields MD Anxiety and depression 05/12/2025 Orders Only [facility] External Provider, [facility] 05/06/2025 Patient Outreach [facility] [address] [place] [phone] Mychal Fields MD Care Coordination (Appt reminder) 05/05/2025 Patient Outreach [facility] [address] [place] [phone] Mychal Fields MD Care Coordination ([facility] f/u) 05/05/2025 Patient Outreach [facility] [address] [place] [phone] Mychal Fields MD Care Management (C3CM- f/u call # lvm) 04/30/2025 Refill [facility] [address] [place] [address] Noemy Frye RN Anxiety and depression 04/30/2025 Refill [facility] [address] [place] [phone] Mychal Fields MD Essential hypertension 04/30/2025 Telephone [facility] [address] [place] [phone] Mychal Fields MD Med Refill 04/21/2025 Patient Outreach [facility] [address] [place] [phone] Mychal Fields MD Care Coordination (SDOH f/u) 04/21/2025 Patient Outreach [facility] [address] [place] [phone] Mychal Fields MD Care Management (C3CM- f/u call lvm) 04/16/2025 11:30 AM EDT Office Visit [facility] [address] [place] [phone] Mychal Fields MD Microscopic hematuria (Primary Dx); Restrictive lung disease; Essential hypertension; Low vitamin D level 04/16/2025 Travel 04/16/2025 Telephone [facility] [address] [place] [address] [phone] Mychal Fields MD Error (VOID this visit) 04/16/2025 Refill [facility] [address] [place] [phone] Claudette Nassar MD 04/09/2025 Patient Outreach [facility] [address] [place] [phone] Mychal Fields MD Care Management (C3CM- f/u call lvm) 04/09/2025 Patient Outreach [facility] [address] [place] [phone] Mychal Fields MD Care Coordination (Appt reminder) 04/09/2025 Refill [facility] [address] [place] [phone] Mychal Fields MD Chronic midline low back pain without sciatica 04/08/2025 Refill [facility] [address] [facility] [place] [address] Mychal Fields MD Anxiety and depression 04/08/2025 Patient Outreach [facility] [address] [facility] [place] [address] Mychal Fields MD Pre-visit Planning (Pre-visit planning - LVM ) 04/05/2025 Refill [facility] [address] [facility] [facility] [place] [address] Mychal Fields MD 04/03/2025 Patient Outreach [facility] [address] [place] [address] Mychal Fields MD Care Coordination (Appt reminder) 04/02/2025 Telephone [facility] [address] [place] [address] Mychal Fields MD Care Management (C3CM) 04/01/2025 Patient Outreach [facility] [address] [place] [address] Mychal Fields MD 04/01/2025 Telephone [facility] [address] [place] [address] Mychal Fields MD Care Management (C3CM- f/u call) 04/01/2025 Patient Outreach [facility] [address] [place] [phone] Mychal Fields MD Care Coordination (PT1) 03/31/2025 Patient Outreach [facility] [address] [place] [address] Mychal Fields MD Care Management (C3CM- f/u call #2. lvm) 03/31/2025 Patient Outreach [facility] [address] [place] [address] Mychal Fields MD Care Coordination (PT1) 03/31/2025 Patient Outreach [facility] [address] [place] [address] Mychal Fields MD Care Coordination (pt1) 03/25/2025 Refill [facility] [address] [place] [address] Mychal Fields MD Anxiety and depression 03/24/2025 Patient Outreach [address] [address] Mychal Fields MD Care Management (C3- 1st f/u call lvm) 03/24/2025 Patient Outreach [address] [address] Mychal Fields MD Care Coordination (SDOH) 03/23/2025 Patient Outreach [address] [address] Mychal Fields MD 03/20/2025 Patient Outreach [address] [address] Mychal Fields MD Care Coordination (Appt reminder) 03/17/2025 Orders Only [facility] External Provider, [facility] 03/16/2025 Patient Outreach [address] [address] Mychal Fields MD Care Coordination (Appt reminder) 03/05/2025 Patient Outreach [address] [address] Mychal Fields MD Care Coordination (PT1) 03/04/2025 Plan of Care Documentation [address] [address] 03/04/2025 Patient Outreach [address] [address] Mychal Fields MD Care Management (C3- initial assessment/ enrollment) 03/04/2025 Patient Outreach [address] [address] Mychal Fields MD Care Coordination (SDOH/PT1) 03/03/2025 Patient Outreach [address] [address] Mychal Fields MD Care Coordination (CM/CHW outreach) 03/02/2025 Patient Outreach [facility] [address] [place] [address] Mychal Fields MD 03/02/2025 Refill [facility] [address] [place] [address] Mychal Fields MD Anxiety and depression 03/02/2025 Telephone [facility] [address] [place] [address] Mychal Fields MD Medication Question 03/02/2025 Patient Outreach [facility] [address] [place] [address] Mychal Fields MD 02/27/2025 Patient Outreach [facility] [address] [place] [phone] Mychal Fields MD Care Coordination (CM/CHW outreach) 02/25/2025 Refill [facility] [address] [place] [address] Manjeet Deluca MD 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 Patient Outreach [facility] [address] [place] [address] Mychal Fields MD Care Coordination (CM/CHW outreach) 02/24/2025 Patient Outreach [facility] [address] [place] [address] Mychal Fields MD Care Coordination (CHW Chart Review) 02/24/2025 Patient Outreach [facility] [address] [place] [phone] Mychal Fields MD Care Management (C3CM- chart review) 02/24/2025 Patient Outreach [facility] [address] [place] [phone] Mychal Fields MD 02/23/2025 Refill [facility] [address] [place] [address] Mychal Fields MD Anxiety and depression 02/13/2025 Patient Outreach [facility] [address] [place] [address] Mychal Fields MD Transition Of Care (Tcm) (HDF- Unscheduled due to surgery) 02/13/2025 Refill [facility] [address] [place] [address] Cinthya Dover ANP Smoker from Last 3 Months Immunizations [...] Description 07/24/2025 2:00 PM EST Office Visit [facility] [address] [place] [address] Manjeet Deluca MD [address] [place] [address] Health Maintenance Due Date Last Done Comments [...] EDT XR CHEST 2 VIEWS Routine 03/23/2025 2:4 7 PM EDT HIGH SENSITIVITY TROPONIN I Routine 03/17/2025 7:24 PM EDT HIGH SENSITIVITY TROPONIN I Routine 03/17/2025 6:42 PM EDT B TYPE NATRIURETIC PEPTIDE (BNP) Routine 03/17/2025 6:42 PM EDT COMPREHENSIVE METABOLIC PANEL Routine 03/17/2025 6:42 PM EDT CBC WITH AUTO DIFFERENTIAL Routine 03/17/2025 6:42 PM EDT [id number] NG ENZYME Routine 03/17/2025 2:07 PM EDT [...] Recently Relevant to Health Maintenance Results * POCT Creatinine GFR (05/12/2025 10:39 AM EDT) Only the most recent of2 resultswithin the time period is included. POCT Creatinine 1.1 0.5 - 1.4 mg/dL [facility] GFR POC 55 [facility] Comment:Chronic Kidney Disea se: Estimated GFR < 60 mL/min/1.31k5Kdvaxx Kidney Disease: Estimated GFR < 15 mL/min/1.73m2 05/12/2025 10:3 9 AM EDT 05/12/2025 2:20 PM EDT Narrative [facility] - 05/12/2025 2:22 PM EDT [phone] us Generic External Data Provider LAB POINT OF CARE TEST DOCKED DEVICE ORDERABLES Final Result [facility] [address] [place] [address] [phone] * CTA Chest PE Protocal (05/12/2025 10:36 AM EDT) Anatomical Region Laterality Modality Body, Chest Computed Tomogra phy 05/12/2025 10:3 6 AM EDT Narrative 05/12/2025 11:22 AM EDT [address] [address] [address] Scan Report Signed Patient: Elaine Rodas MR#: [id number] : 1970 Acct:[id number] Age/Sex: 54 / F ADM Date: 05/12/25 Loc: HO.CT Attending Dr: Amy Zimmerman NP Ordering Physician: Amy Zimmerman NP Date of Service: 05/12/25 Procedure(s): CT angio chest PE protocol Accession Number(s): [id number] cc: Mychal Long MD; Amy Zimmerman NP Report Number: [id number]: Total DLP = 150.00 mGy-cm Reason for [...] 05/12/25 1119 DD/ 1036 TD/TT: 05/12/25 1100 Adjunct Writing Instructor: Procedure Note Donotuseinterpreter, Image - 05/12/[address] [place] [address] [address] Scan Report Signed Patient: Elaine Rodas#: [id number] : 1970Acct:[id number] Age/Sex: 54 / FADM Date: 05/12/25 Loc: HO.CT Attending Dr: Amy Zimmerman NP Ordering Physician: Amy Zimmerman NP Date of Service: 05/12/25 Procedure(s): CT angio chest PE protocol Accession Number(s): [id number] cc: Mychal Long MD; Amy Zimmerman NP Report Number: [id number]: Total DLP = 150.00 mGy-cm Reason for [...] 05/12/25 1119 DD/ 1036 TD/TT: 05/12/25 1100 Adjunct Writing Instructor: us [facility] External Provider IMG CT PROCEDURES Final Result * XR Chest 2 Views (03/23/2025 2:47 PM EDT) Anatomical Region Laterality Modality Chest Radiographic Hilda ging 03/23/2025 2:47 PM EDT Narrative 03/23/2025 3:15 PM EDT [address] [address] XRay Report Signed Patient: Elaine Rodas MR#: [id number] : 1970 Acct:[id number] Age/Sex: 54 / F ADM Date: 03/23/25 Loc: HO.XRAY Attending Dr: Amy Zimmerman NP Ordering Physician: Amy Zimmerman NP Date of Service: 03/23/25 Procedure(s): XR chest 2V Accession Number(s): [id number] cc: Mychal Long MD; Amy Zimmerman NP [...] 03/23/25 1512 DD/ 1447 TD/TT: 03/23/25 1501 Adjunct Writing Instructor: Procedure Note Donotjacobointerpreter, Image - 03/23/[address] [address] XRay Report Signed Patient: Elaine RodasMR#: [id number] : 1970Acct:[id number] Age/Sex: 54 / FADM Date: 03/23/25 Loc: HO.XRAY Attending Dr: Amy Zimmerman NP Ordering Physician: Amy Zimmerman NP Date of Service: 03/23/25 Procedure(s): XR chest 2V Accession Number(s): [id number] cc: Mychal Long MD; Amy Zimmerman NP [...] 03/23/25 1512 DD/ 1447 TD/TT: 03/23/25 1501 Adjunct Writing Instructor: [facility] External Provider IMG XR PROCEDURES Final Result * High Sensitivity Troponin I (03/17/2025 7:24 PM EDT) Only the most recent of2 resultswithin the time period is included. Pathologist [facility] TROPONIN I HIGH SENSITIVITY <2.7 <3.5 - 17.0 ng/L [facility] Comment:The [place] high sens itivity Troponin-I results should beused in conjunction with other diagnostic information suchas ECG, clinical observations and information, and patientsymptoms to aid in the diagnosis of MT. 03/17/2025 7:24 PM EDT 03/17/2025 7:27 PM EDT us Generic External Data Provider LAB BLOOD ORDERAB LES Final Result [facility] [address] [place] [phone] * (ABNORMAL) CBC auto differential (03/17/2025 6:42 PM EDT) [facility] White Blood Count 8.9 4.8 - 10.8 X10*3/uL [facility] Red Blood Count 4.08(L) 4.20 - 5.50 X10*6/uL [facility] Hemoglobin 11.9(L) 12.0 - 16.0 g/dl [facility] Hematocrit 34.7(L) 37.0 - 47.0 % [facility] Mean Corpuscular Volume 85.0 80.0 - 98.0 fL [facility] Mean Corpuscular Hemoglobin 29.2 27.0 - 33.0 pg [facility] Mean Corpuscular HGB Conc 34.3 31.0 - 35.0 g/dl [facility] Red Cell Distribution Width 12.9 11.0 - 16.0 % [facility] Platelet Count 276 160 - 400 X10*3/uL [facility] Mean Platelet Volume 9.0(L) 9.4 - 12.3 fL [facility] Neutrophils Percent Auto 46.0 45 - 73 % [facility] Imm Gran Pct Auto 0.1 0.0 - 0.4 % [facility] Lymphocytes Percent Auto 31.5 20 - 40 % [facility] Monocytes Percent Auto 4.0 2 - 11 % [facility] Eosinophils Percent Auto 17.8(H) 0 - 4 % [facility] Basophils Percent Auto 0.6 0 - 2 % [facility] NRBC Pct Auto 0.0 0.0 - 0.2 /100WBC [facility] Neutrophils Absolute Auto 4.1 2.0 - 8.3 x10*3/uL [facility] Imm Gran Abs Auto 0.01 0.00 - 0.03 X10*3/uL [facility] Lymphocytes Absolute Auto 2.8 1.2 - 4.9 X10*3/uL [facility] Monocytes Absolute Auto 0.4 0.1 - 1.2 X10*3/uL [facility] Eosinophils Absolute Auto 1.6(H) 0.0 - 0.4 X10*3/uL [facility] Basophils Absolute Auto 0.1 0.0 - 0.2 X10*3/uL [facility] NRBC Abs Auto 0.000 0.0 - 0.012 X10*3/uL [facility] 03/17/2025 6:42 PM EDT 03/17/2025 6:45 PM EDT us Generic External Data Provider LAB BLOOD ORDERAB LES Final Result Performing Organization Address [facility] [email or web address]] Co de Phone Number [facility] [address] [place] [phone] * B Type Natriuretic Peptide (BNP) (03/17/2025 6:42 PM EDT) B Type Natriuretic Peptide 11 <100 pg/mL [facility] 03/17/2025 6:42 PM EDT 03/17/2025 6:45 PM EDT Generic External Data Provider LAB BLOOD ORDERAB LES Final Result Performing Organization Address [facility]/ZIP Co de Phone Number [facility] [address] [place] [address] [phone] * (ABNORMAL) Comprehensive Metabolic Panel (03/17/2025 6:42 PM EDT) Sodium 141 135 - 145 mmol/L [facility] Potassium 3.7 3.3 - 5.1 mmol/L [facility] Chloride 109(H) 96 - 108 mmol/L [facility] Carbon Dioxide 23 22 - 29 mmol/L [facility] Anion Gap 13 12 - 20 [facility] Urea Nitrogen (BUN) 9 9 - 16 mg/dL [facility] Creatinine, Serum 1.03 0.5 - 1.4 mg/dL [facility] Creatinine Clr Calc Pharmacy 69.1 [facility] Comment:Provided height and weight: 160.02 cm,96.7 kg.eGFR (calculated from the MDRD study equation) and eCrCl(calculated from the Cockcroft-Gault equation) are based ondifferent parameters and may not yield comparable results.If eCrCl result is absurd, please check patient'sheight/weight. Estimated Glomerular Filt Rate 56 [facility] Comment:Chronic Kidney Disea se: Estimated GFR < 60 mL/min/1.31x9Liwqvf Kidney Disease: Estimated GFR < 15 mL/min/1.73m2 Glucose 137(H) 60 - 115 mg/dL [facility] Calcium 9.1 8.4 - 10.2 mg/dL [facility] Bilirubin, Total 0.2 0.0 - 1.0 mg/dL [facility] Aspartate Amino Transferase 18 5 - 31 U/L [facility] Alanine Aminotransferase 12 0 - 31 U/L [facility] Total Protein 7.2 6.5 - 8.0 g/dL [facility] Albumin Level 3.9 3.5 - 5.0 g/dL [facility] Alkaline Phosphatase 106 39 - 117 U/L [facility] 03/17/2025 6:42 PM EDT 03/17/2025 6:45 PM EDT us Generic External Data Provider LAB BLOOD ORDERAB LES Final Result Performing Organization Address City/[facility]/ZIP Co de Phone Number [facility] [address] [place] [address] [phone] * Angiotensin -1- Converting Enzyme (03/17/2025 2:07 PM EDT) Angiotensin Converting Enzyme 37.3 9 - 67 U/L [facility] Comment:THIS TEST WAS PERFOR MED AT:[facility] [place] [address]IMFAATPANSON CALVILLO MD,PHD 03/17/2025 2:07 PM EDT 03/17/2025 2:07 PM EDT us Generic External Data Provider LAB BLOOD ORDERAB LES Final Result Performing Organization Address [facility] [[email or web address]] Co de Phone Number [facility] [address] [place] [address] [phone] * MAURICE Screen,IFA, with Reflex to Titer and Pattern (03/17/2025 2:07 PM EDT) Pathologist [facility] Anti Nuclear Antibody Screen NEGATIVE NEGATIVE [facility] Comment:MAURICE IFA is a first [...] clinicallysuspected inflammatory myopathies.AC-0: NegativeInternational Consensus on MAURICE Patterns(https://doi.org/10.1515/jzcu-4134-7841)For additional information, please refer tohttp://education.Fengguo/faq/RGR160(This link is being provided for informational/educational purposes only.)THIS TEST WAS PERFORMED AT:[facility] [place] [id number] PRESSLEY MD MAURICE Titer TNP [facility] MAURICE Pattern TNP [facility] MAURICE TITER 2 (REF LAB) TNP [facility] MAURICE Pattern 2 TNP [facility] MAURICE TITER 3 TNP [facility] MAURICE PATTERN 3 [facility] 03/17/2025 2:07 PM EDT 03/17/2025 2:07 PM EDT us Generic External Data Provider LAB BLOOD ORDERAB LES Final Result [facility] [address] [place] [phone] * CT Chest w/ Contrast (03/17/2025 1:46 PM EDT) Anatomical Region Laterality Modality Body, Chest Computed Tomogra phy 03/17/2025 1:46 PM EDT Narrative 03/17/2025 2:19 PM EDT [address] [address] [address] Scan Report Signed Patient: Elaine Rodas MR#: [id number] : 1970 Acct:[id number] Age/Sex: 54 / F ADM Date: 03/17/25 Loc: HO.CT Attending Dr: Amy Zimmerman NP Ordering Physician: Amy Zimmerman NP Date of Service: 03/17/25 Procedure(s): CT chest w IV con Accession Number(s): [id number] cc: Mychal Long MD; Amy Zimmerman NP Report Number: [id number]: Total DLP = 344.00 mGy-cm EXAMINATION: CT [...] reconstruction technique DLP: 344 mGy centimeter. FINDINGS: KITCHEN STEWARDESS: Patient's large body habitus. LUNGS: Linear attenuation [...] atelectasis in the lung bases Communicated via [employer] connect to nurse practitioner Amy Zimmerman on March 17, 2025 at 2:16 PM. Fleischner guidelines were followed. Electronically signed by: Ty Strong MD 03/17/2025 02:16 PM EDT Dictated By: Ty Olson MD Signed By: <Electronically signed by Ty Contreras MD in OV> 03/17/25 1416 DD/ 1346 TD/TT: 03/17/25 1403 Adjunct Writing Instructor: Procedure Note Donotuseinterpreter, Image - 03/17/[address] [address] [address] Scan Report Signed Patient: Elaine RodasMR#: [id number] : 1970Acct:[id number] Age/Sex: 54 / FADM Date: 03/17/25 Loc: HO.CT Attending Dr: Amy Zimmerman NP Ordering Physician: Aym Zimmerman NP Date of Service: 03/17/25 Procedure(s): CT chest w IV con Accession Number(s): [id number] cc: Mychal Long MD; Amy Zimmerman NP Report Number: [id number]: Total DLP = 344.00 mGy-cm EXAMINATION: CT [...] reconstruction technique DLP: 344 mGy centimeter. FINDINGS: KITCHEN STEWARDESS: Patient's large body habitus. LUNGS: Linear attenuation [...] atelectasis in the lung bases Communicated via [employer] connect to nurse practitioner Amy Zimmerman on March 17, 2025 at 2:16 PM. Fleischner guidelines were followed. Electronically signed by: Ty Strong MD 03/17/2025 02:16 PM EDT RP Dictated By: Ty Olson MD Signed By: <Electronically signed by Ty Contreras MDin OV> 03/17/25 1416 DD/ 1346 TD/TT: 03/17/25 1403 Adjunct Writing Instructor: [facility] External Provider IMG CT PROCEDURES Final Result * Hepatitis C Ab (11/05/2024 3:21 PM EST) Hepatitis C Antibody Nonreactive Nonreactive [facility] Comment:Antibodies to HCV no t detected; does not exclude early acuteHCV infection. 11/05/2024 3:21 PM EST 11/05/2024 3:21 PM EST Generic External Data Provider LAB BLOOD ORDERAB LES Final Result [facility] [address] [place] [phone] * HIV-1/2 Antigen and Antibodies, Fourth Generation, with Reflexes (11/05/2024 3:21 PM EST) HIV AB/AG Nonreactive Nonreactive [facility] Comment:HIV-1 p24 Ag and/or HIV-1/HIV-2 Ab not detected.A test result that is nonreactive does not exclude thepossibility of exposure to or infection with HIV-1 and/orHIV-2. Nonreactive results in this assay for individualswith prior exposure to HIV-1 and/or HIV-2 may be due toantigen and antibody levels that are below the limit ofdetection of this assay.The [employer] HIV Ag/Ab Combo assay result andsupplemental assay results should be interpreted inconjunction with the patient's clinical presentation,history and other laboratory results. If the results areinconsistent with clinical evidence, additional testing issuggested to confirm the result. 11/05/2024 3:21 PM EST 11/05/2024 3:21 PM EST us Generic External Data Provider LAB BLOOD ORDERAB LES Final Result [facility] [address] [place] [address] [phone] * BI Mammogram Screening Tomosynthesis Bilateral (10/29/2024 12:58 PM EST) Anatomical Region Laterality Modality Breast Bilateral Mammography 10/29/2024 12:5 8 PM EST Narrative 11/04/2024 12:41 PM EST [address] [place] [address] Mammography Report Signed Patient: Elaine Rodas MR#: [id number] : 1970 Acct:[id number] Age/Sex: 53 / F ADM Date: 10/29/24 Loc: [facility]AS[facility] Attending Dr: Mychal Long MD Ordering Physician: Syed Coreas MD Results: 1Negativ e Date of Service: 10/29/24 Follow Up: 1 Year From [facility] Mammogram Procedure(s): MM tomosynthesis screening BI Accession Number(s): [id number] cc: Mychal Long MD; Syed Coreas MD [...] 11/04/24 1238 DD/ 1258 TD/TT: 10/29/24 1315 Adjunct Writing Instructor: Procedure Note Donotuseinterpreter, Image - 11/04/2024 Nanci [facility] [address] [place], [place] [address] Mammography Report Signed Patient: Elaine RodasMR#: [id number] : 1970Acct:[id number] Age/Sex: 53 / FADM Date: 10/29/24 Loc: HOOliverMAMMO Attending Dr: Mychal oLng MD Ordering Physician: Syed Coreas MDResults: 1Negativ e Date of Service: 10/29/24Follow Up: 1 Year From Orig inal Mammogram Procedure(s): MM tomosynthesis screening BI Accession Number(s): [id number] cc: Mychal Long MD; Syed Coreas MD [...] 11/04/24 1238 DD/ 1258 TD/TT: 10/29/24 1315 Adjunct Writing Instructor: [facility] External Provider IMG BI PROCEDURES Final Result * HPV mRNA E6/E7 w/Reflex to HPV Genotypes 16, 18/45 (08/23/2023 2:22 PM EST) HPV nRNA E6/E7 Not Detected Not Detected [facility] Comment:Methodology: Transcr iption-Mediated AmplificationThis assay detects E6/E7 viral messenger RNA (mRNA) from 14high-risk HPV types (16,18,31,33,35,39,45,51,52,56,58,59,66,68).Cervical sources are required for HPV testing.If a vaginal source from a patient who has had atotal hysterectomy with removal of cervix wassubmitted, please contact the testing laboratoryfor alternative testing options.For additional information, please refer tohttp://education.[employer]/faq/VDQ173n3(This link if provided for information/educational purposes only.)THIS TEST WAS PERFORMED AT:[facility] [place] [phone] PRESSLEY MD HPV mRNA E6/E7 [facility] HPV 16 RNA [facility] HPV 18/45 RNA [facility] 08/23/2023 2:22 PM EST 08/24/2023 9:35 AM EST Cecily STANTON LAB CYTOLOGY ORDERABLES F inal Result [facility] [address] [place] [phone] * Pap Smear (08/23/2023 2:22 PM EST) Swab Cervix uteri structure / Unknown 08/23/2023 2:22 PM EST 08/24/2023 9:35 AM EST [facility] - 09/04/2023 1:23 PM EST ----- ------- Name: Elaine Rodas Age/Sex: 52/F : 1970 Unit#: [id number] Attend Dr: Re08/23/23 Status: PRE REF Location: [facility] Disch: ----- ------- SPEC : [id number] RECD: 08/24/23 STATUS: RICHARD BLANKLiset NUM: [id number] [place]: 08/23/23-1422 [facility] DR: CECILY SCHWAB [facility] ENTERED: 08/24/23-1157 SP TYPE: Pap [facility] DR: ORDERED: Pap Smear Interpretation Satisfactory for evaluation. No endocervical cells seen. Cytolysis noted. Negative for intraepithelial lesion or malignancy. HPV mRNA E6/E7: NOT DETECTED This assay detects E6/E7 viral messenger RNA (mRNA) from 14 high-risk HPV types (16, 18, 31, 33, 35, 39, 45, 51, 52, 56, 58, 59, 66, 68) HPV testing performed by [facility], [place], [place]. See reference laboratory portion of the EMR for entire report. Clinical Information LMP: Postmenopausal Previous PAP test: Unknown date/findings Other history: Abnormal bleeding Material Received ThinPrep-Cervical ----- ------- Signed (signature on file) NATHAN Medrano (ASCP) 09/04/23 1323 ----- ------- END OF REPORT Cecily STANTON LAB CYTOLOGY ORDERABLES F inal Result [facility] [address] [place] [phone] * Colonoscopy (08/30/2022) [facility] Colonoscopy Normal Normal Historical Provider MD HEALTH MAINTENANCE Final Result * (ABNORMAL) LIPID PANEL, STANDARD (06/17/2020 3:00 PM EDT) [facility] HDL Cholesterol 53 > OR = [...] equation in the estimation of LDL-C. Mina MARRERO et al. ASHUTOSH. 2013;310(19): 1709-6279 (http://education.[employer].Tablo/faq/EHF007) Chol/HDLC Ratio 3.4 <5.0 (calc) [facility] 06/17/2020 3:00 PM EDT us Mychal Morris MD LAB BLOOD ORDERABLES Final Result [facility] [address] from Last 3 Months or Most Recently Relevant to Health Maintenance [facility] Care Teams Independent Jeweler Relationship Specialty Start Date End Date Mychal Fields MD [address] [place] [address] PCP - General Internal Medicine 04/30/14 Hima Fam FNP [address] [place] [address] Nurse Practitioner Family Medicine 08/01/23 Yaneth Dotson, ALAN [address] [place] [phone] Registered Nurse Family Medicine 02/24/25 Mckenzie Silverio 02/24/25
--- OUTSIDE RECORDS SUMMARY | 2025-05-14 11:58 | XMS_ITS | Encounter Summary ---
Author Organization [employer] Address [address] [place] [address] 7 [place] [address] Care Team Providers Care Commissions Manager Name Role Phone Mychal Fields MD Primary Care Provide r Hima Fam Unavailable Unavailable Yaneth Dotson RN Unavailable [phone] Mckenzie Silverio Unavailable Encounter Details Date Type Department Care Team (Late st Contact Info) Description 12/04/2022 Telephone [facility] MEDICINE [address] [place] [address] [phone] Mychal Fields MD [address] [place] [address] [phone] Social History Tobacco Use Types Packs/Day Years [...] Description 07/24/2025 2:00 PM EST Office Visit [facility] MEDICINE [address] [place] [address] [phone] Manjeet Deluca MD [address] [place], [place] [phone] documented as of this encounter Visit Diagnoses Not on filedocumented in this encounter Additional Health Concerns Assessment Noted Time PHQ-9 Depression Total Score: 7 10/09/19 23 4:00 PM EST documented as of this encounter Care Teams Commissions Manager Relationship Specialty Start Date End Date Mychal Fields MD [address] [place] [address] PCP - General Internal Medicine 04/30/14 Hima Fam FNP [address] [place] [address] Nurse Practitioner Family Medicine 08/01/23 Yaneth Dotson RN [address] [place] [phone] Registered Nurse Family Medicine 02/24/25 Mckenzie Silverio 02/24/25 [employer] 02/13/25 03/29/25 documented as of this encounter
== END 2025-05-14 11:26 | disposition home or self-care (01) ==
LOC: HO.RHES 10:33
PROVIDERS: PCP Internal Medicine; Visit Provider Student in an Organized Health Care Education/Training Program
DX: M79.7 Fibromyalgia (principal); M17.0 Bilateral primary osteoarthritis of knee
CPT/HCPCS: 99213

== ENCOUNTER → 2025-05-14 10:33 | Outpatient (BNVA) | payer MEDICAID, SELFPAY | PROVIDERS: PCP Internal Medicine; Visit Provider Student in an Organized Health Care Education/Training Program | DX: M79.7 Fibromyalgia (principal); M17.0 Bilateral primary osteoarthritis of knee | CPT/HCPCS: 99212 ==

== ENCOUNTER 2025-05-22 12:45 | Outpatient (REF) | payer MEDICAID, SELFPAY ==
--- OUTSIDE RECORDS SUMMARY | 2025-05-22 15:05 | XMS_ITS | Clinical Summary ---
Author Organization [facility] 299 [facility] Address [address] [place] [address] Phone Care Team Providers Care Oriental Rug Repairer Name Role Phone Mychal Long MD Primary [...] lung cancer screening program here at [facility] with her LDCT due December 2025. Patient may follow-up with us here in thoracic surgery on an as-needed basis going forward. Resolved Problems Problem Noted Date Diagnosed Date Resolved Date Mediastinal mass 01/26/2025 02/26/2025 Mediastinal lymphadenopathy 01/26/2025 02/26/2025 Encounters Date Type Department Care Team Description 05/01/2025 4:31 PM EDT - 05/01/2025 11:59 PM EDT Hospital Encounter [facility] Xray [address] [place] [address] Bilateral pleural effusion Discharge Disposition: Home or Self Care 05/01/2025 3:00 PM EDT Office Visit Pulmonology - [place] [address] [facility] [address] [place] [phone] Rosy Rhodes MD Bilateral pleural effusion (Primary Dx) 03/25/2025 Telephone Pulmonology - [place] 299 [facility] [address] [place] [phone] Kylie Simons [place] 03/24/2025 5:49 PM EDT - 03/24/2025 11:59 PM EDT Hospital Encounter [facility] Xray [address] [place] [address] Bilateral pleural effusion Discharge Disposition: Home or Self Care 03/24/2025 4:00 PM EDT Office Visit Pulmonology - [place] 299 [facility] [address] [place] [phone] Rosy Rhodes MD Bilateral pleural effusion (Primary Dx); Thymic cyst (CMS/HCC V24) 03/02/2025 2:45 PM EDT - 03/02/2025 11:59 PM EDT Hospital Encounter [facility] Ultrasound [address] [place] [address] Pain in both lower extremities Discharge Disposition: Home or Self Care 02/26/2025 10:15 AM EDT Office Visit Thoracic Surgery - [place] 299 [facility] [address] [place] [phone] Silvia Romeo PA Thymic cyst (CMS/HCC V24) (Primary Dx); Pain in both lower extremities; Tobacco abuse 02/26/2025 10:08 AM EDT - 02/26/2025 11:59 PM EDT Hospital Encounter [facility] Xray [address] [place] [address] Mediastinal mass Discharge Disposition: Home or Self Care 02/26/2025 Telephone Thoracic Surgery - [address] [place] [address] Teodora Walker MA from Last 3 Months Surgical History Surgery [...] Asthma Anxiety Arthritis Joint pain Thymic cyst ([facility] V24) 02/26/2025 Family History Medical History Relation [...] 3:00 PM EDT Office Visit Pulmonology - [address] [place] [address] Rosy Rhodes MD [address] [place] [address] Health Maintenance Due Date Last Done Comments [...] Screening 06/18/2024 Depression Screening 09/10/2024 COVID-19 Vaccine (3 - season) 2025 06/20/2022, 05/17/2021 Influenza Vaccine (#1) 2025 , 09/08/2021, 06/09/2020, Additional history exists Cholesterol Screening [...] 02/26/2025 10:1 8 AM EDT Mediastinal mass BASIC METABOLIC PANEL Routine 02/12/2025 6:18 AM EDT from Last 3 Months or Most Recently Relevant to Health Maintenance Results * Non-gynecologic cytology (05/05/2025 8:05 AM EDT) Only the most recent of3 resultswithin the time period is included. Final Diagnosis Pleural Fluid, Left, Thoracentesis, (ThinPrep, cell block): No malignant cells identified Eosinophils, lymphocytes and histiocytes present 05/05/2025 8:05 AM EDT [facility] Specimen A Adequacy Satisfactory for evaluation 05/05/2025 8:05 AM EDT [facility] Gross Description A. Pleural Cavity, Left, Pleural Cavity Left: Received 400ml of dark cloudy fluid 1 thin prep, 1 cell block Formalin fixation 7.5 put in formalin at 1330 05/05/2025 8:05 AM T [facility] Disclaimer Unless otherwise specified, all tissue is 10% NB formalin fixed and paraffin embedded. Technical cytopathology services provided by [facility], at [address] [place] [id number] (CLIA # [id number]/Jose Paula MD, Telemarketer Supervisor.) 05/05/2025 8:05 AM EDT [facility] Pleural Fluid Structure of left pleural cavity / Unknown 05/04/2025 1:00 PM EDT us Rosy Rhodes MD LAB CYTOLOGY ORDERABLES Fi nal Result [facility] [address] [place] [address], [place] [phone] * XR Chest 2 Views (05/01/2025 4:36 [...] Signed Date: 05/01/2025 16:41 ET Workstation ID: [id number] Transcribed By: Self Edit Transcribed Date: 05/01/2025 [...] Signed Date: 05/01/2025 16:41 ET Workstation ID: [id number] Transcribed By: Self Edit Transcribed Date: 05/01/2025 [...] pain and infection Alternatives discussed: No treatment Tower protocol: Procedure explained and questions answered to [...] midscapular line Intercostal space: 7th Puncture method: Yqxv-gjb-qxumpu catheter Ultrasound guidance: yes Indwelling catheter placed: [...] pain and pneumothorax Alternatives discussed: No treatment Tower protocol: Procedure explained and questions answered to [...] midscapular line Intercostal space: 7th Puncture method: [id number]-fbl-nbcqhv catheter Ultrasound guidance: yes Indwelling catheter placed: [...] LAB HEMETOLOGY METHOD 05/01/2025 6:48 PM EDT [facility] Body Fluid RBC 4,000 /mm3 LAB HEMETOLOGY METHOD 05/01/2025 6:48 PM EDT [facility] Body Fluid Color Yellow 05/01/2025 6:48 PM EDT [facility] Body Fluid Clarity Cloudy 05/01/2025 6:48 PM EDT [facility] Body Fluid Source Pleural 05/01/2025 6:48 PM EDT [facility] Comment:Left Pleural Fluid Structure of left pleural cavity / Unknown 05/01/2025 3:00 PM EDT 05/01/2025 4:48 PM EDT Narrative [facility] - 05/01/2025 6:48 PM EDT No reference ranges have been established for body fluids. Clinical correlation recommended. us Rosy Rhodes MD LAB BODY FLUIDS AND STOOLS ORDERABLES Final Result Performing Organization Address [facility]/ZIP Co de Phone Number [facility] [address] [place] [address], * Culture body fluid with gram stain (05/01/2025 3:00 PM EDT) Only the most recent of3 resultswithin the time period is included. Fluid Culture No growth at 3 days LAB MICROBIOLOGY METHOD 05/04/2025 11:15 AM EDT [facility] Gram Stain Result No polymorphonuclear leukocytes, No epithelial cells, and No organisms noted 05/04/2025 11:15 AM EDT [facility] Pleural Fluid Structure of left pleural cavity / Unknown Non-blood Collection / Unknown 05/01/2025 3:00 PM EDT 05/01/2025 4:48 PM EDT Rosy Rhodes MD LAB MICROBIOLOGY - GENERAL ORDERABLES Final Result Performing Organization Address [facility] Co de Phone Number [facility] [address] [place] [address], * Differential body fluid (05/01/2025 3:00 PM EDT) Only the most recent of3 resultswithin the time period is included. Fluid Neutrophils % 7 % 05/01/2025 6:44 PM EDT [facility] Fluid Lymphocytes % 42 % 05/01/2025 6:44 PM EDT [facility] Fluid Monocytes/Macrop hages 23 % 05/01/2025 6:44 PM EDT [facility] Fluid Eosinophils % 28 % 05/01/2025 6:44 PM EDT [facility] Fluid Basophils % 0 % 05/01/2025 6:44 PM EDT [facility] Fluid Other Cells % 0 % 05/01/2025 6:44 PM EDT [facility] Pleural Fluid Structure of left pleural cavity / Unknown 05/01/2025 3:00 PM EDT 05/01/2025 4:48 PM EDT Narrative [facility] - 05/01/2025 6:44 PM EDT No reference ranges have been established for body fluids. Clinical correlation recommended. Rosy Rhodes MD LAB BODY FLUIDS AND STOOLS ORDERABLES Final Result Performing Organization Address [facility]/ZIP Co de Phone Number [facility] [address] [place] [address], [place] [phone] * Protein, body fluid (05/01/2025 3:00 PM EDT) Only the most recent of3 resultswithin the time period is included. Protein, Fluid 5.2 See Comment g/dL LAB CHEMISTRY METHOD 05/01/2025 5:33 PM EDT [facility] Pleural Fluid Structure of left pleural cavity / Unknown Non-blood Collection / Unknown 05/01/2025 3:00 PM EDT 05/01/2025 4:48 PM EDT Narrative [facility] - 05/01/2025 5:33 PM EDT No reference ranges have been established for body fluids. Clinical correlation recommended. us Rosy Rhodes MD LAB BODY FLUIDS AND STOOLS ORDERABLES Final Result Performing Organization Address [facility]/ZIP Co de Phone Number [facility] [address] [place] [address], [place] [phone] * Lactate dehydrogenase, body fluid (05/01/2025 3:00 PM EDT) Only the most recent of3 resultswithin the time period is included. LD, Fluid 587 See Comment unit/L LAB CHEMISTRY METHOD 05/01/2025 5:33 PM EDT [facility] Pleural Fluid Structure of left pleural cavity / Unknown Non-blood Collection / Unknown 05/01/2025 3:00 PM EDT 05/01/2025 4:48 PM EDT Narrative [facility] - 05/01/2025 5:33 PM EDT No reference ranges have been established for body fluids. Clinical correlation recommended. Rosy Rhodes MD LAB BODY FLUIDS AND STOOLS ORDERABLES Final Result Performing Organization Address [facility] Co de Phone Number [facility] [address] [place] [address], [place] [phone] * Glucose, body fluid (05/01/2025 3:00 PM EDT) Only the most recent of3 resultswithin the time period is included. Glucose, Fluid 103 See Comment mg/dL LAB CHEMISTRY METHOD 05/01/2025 5:33 PM EDT [facility] Pleural Fluid Structure of left pleural cavity / Unknown Non-blood Collection / Unknown 05/01/2025 3:00 PM EDT 05/01/2025 4:48 PM EDT Narrative [facility] - 05/01/2025 5:33 PM EDT No reference ranges have been established for body fluids. Clinical correlation recommended. Rosy Rhodes MD LAB BODY FLUIDS AND STOOLS ORDERABLES Final Result Performing Organization Address [facility]/ZIP Co de Phone Number [facility] [address] [place] [address], [place] [phone] * UT THORACENTESIS PLEURAL SPACE NEEDLE/CATH ASPIRATION [...] infection and pneumothorax Alternatives discussed: No treatment Tower protocol: Procedure explained and questions answered to [...] midscapular line Intercostal space: 8th Puncture method: Kkmr-thr-naxcys catheter Ultrasound guidance: yes Indwelling catheter placed: [...] body fluid (03/24/2025 5:33 PM EDT) Pathologist [facility] Pathologist review Body Fluid Cytocentrifuge prep: -Negative for malignancy JS 03/25/2025 8:49 AM EDT [facility] Pleural Fluid Structure of right pleural cavity / Unknown Non-blood Collection / Unknown 03/24/2025 5:33 PM EDT 03/24/2025 5:45 PM EDT us Rosy Rhodes MD LAB BODY FLUIDS AND STOOLS ORDERABLES Final Result [facility] [address] [place] [address], [place] [phone] * Triglycerides, body fluid (03/24/2025 5:33 PM EDT) Triglycerides , Fluid 36 See Comment mg/dL LAB CHEMISTRY METHOD 03/25/2025 12:15 PM EDT [facility] Pleural Fluid Structure of right pleural cavity / Unknown Non-blood Collection / Unknown 03/24/2025 5:33 PM EDT 03/24/2025 5:45 PM EDT Narrative [facility] - 03/25/2025 12:15 PM EDT No reference ranges have been established for body fluids. Clinical correlation recommended. Rosy Rhodes MD LAB BODY FLUIDS AND STOOLS ORDERABLES Final Result [facility] [address] [place] [address], [place] [phone] * External CT Report (03/17/2025) Anatomical Region [...] Signed Date: 03/02/2025 15:18 ET Workstation ID: [id number] Transcribed By: Self Edit Transcribed Date: 03/02/2025 [...] Signed Date: 03/02/2025 15:18 ET Workstation ID: [id number] Transcribed By: Self Edit Transcribed Date: 03/02/2025 15:17 ET Silvia RED CV VASCULAR PROCEDURES Final Result * (ABNORMAL) Basic metabolic panel (02/12/2025 6:18 AM EDT) Sodium 138 133 - 145 mmol/L LAB CHEMISTRY METHOD 02/12/2025 7:23 AM [facility] Potassium 4.3 3.5 - 5.5 mmol/L LAB CHEMISTRY METHOD 02/12/2025 7:23 AM [facility] Chloride 107 96 - 110 mmol/L LAB CHEMISTRY METHOD 02/12/2025 7:23 AM [facility] CO2 27 21 - 32 mmol/L LAB CHEMISTRY METHOD 02/12/2025 7:23 AM [facility] Anion Gap 4 3 - 11 LAB CHEMISTRY METHOD 02/12/2025 7:23 AM [facility] Glucose 148(H) 70 - 100 mg/dL LAB CHEMISTRY METHOD 02/12/2025 7:23 AM EDT [facility] BUN 15 5 - 25 mg/dL LAB CHEMISTRY METHOD 02/12/2025 7:23 AM EDT [facility] Creatinine 0.98 0.50 - 1.10 mg/dL LAB CHEMISTRY METHOD 02/12/2025 7:23 AM EDT [facility] eGFR 69 >=60 mL/min/1. 73m2 LAB CHEMISTRY METHOD 02/12/2025 7:23 AM EDT [facility] Comment:Calculation based on the Chronic Kidney Disease Epidemiology Collaboration (CKD-EPI) equation refit without adjustment for race. BUN/Creatinine Ratio 15.3 LAB CHEMISTRY METHOD 02/12/2025 7:23 AM EDT [facility] Calcium 8.9 8.5 - 10.5 mg/dL LAB CHEMISTRY METHOD 02/12/2025 7:23 AM EDT [facility] Blood Venous blood specimen / Unknown Venipuncture / Unknown 02/12/2025 6:18 AM EDT 02/12/2025 6:42 AM EDT Silvia RED LAB BLOOD ORDERABLES Final Re sult [facility] [address] [place] [address], from Last 3 Months or Most Recently Relevant to Health Maintenance Insurance MEDICAID - [place] Advance Directives * [...] currently active code status orders. Care Teams Oriental Rug Repairer Relationship Specialty Start Date End Date Mychal Long MD [address] [place] [address] [place] [address] PCP - General 12/26/11
[2025-05-22 15:28] LABS: Anion Gap 11 (12-20); Blood Urea Nitrogen 8 mg/dL (9-16); Calcium 9.0 mg/dL (8.4-10.2); Carbon Dioxide 29 mmol/L (22-29); Chloride 105 mmol/L (96-108); Estimated Glomerular Filt Rate > 60; Potassium 3.8 mmol/L (3.3-5.1); Sodium 141 mmol/L (135-145)
== END 2025-05-22 12:46 | disposition home or self-care (01) ==
LOC: HO.LAB 12:45
PROVIDERS: PCP Internal Medicine; Visit Provider Internal Medicine
DX: K29.60 Other gastritis without bleeding (principal); I10 Essential (primary) hypertension; K91.5 Postcholecystectomy syndrome; R10.9 Unspecified abdominal pain; R11.2 Nausea with vomiting, unspecified
CPT/HCPCS: 36415; 80048; 99212

== ENCOUNTER 2025-05-22 12:49 | Outpatient (AMB) | payer MEDICAID, SELFPAY ==
[2025-05-22 12:58] VITALS: BP 132/77; PULSE 92; BMI 36.8
--- NOTE | 2025-05-22 12:58 | A.OFFVIS_ITS ---
Vital Signs 05/22/25 12:58 Height 5 ft 3 in Weight 207 lb 10.807 oz BMI 36.8 BP 132/77 Blood Pressure Location Lt brachial Position Sitting Pulse 92 Intake Visit Reasons: erosive tastritis, CIC Intake Note: Elaine presents in office follow up of CIC. CC: Patient reports that she is doing better but sometimes has trouble having a BM. Customer Orders Clerk Required: Yes Accompanied by: Grand Child Allergies metronidazole Allergy (Severe, Verified 05/22/25 13:04) vomiting Penicillins Allergy (Mild, Verified 05/22/25 13:04) VAGINAL FUNGUS INFECTION lisinopril (LISINOPRIL) Allergy (Unknown, Verified 05/22/25 13:04) COUGH verapamil Allergy (Unknown, Verified 05/22/25 13:04) unknown amoxicillin Adverse Reaction (Verified 05/22/25 13:04) Unknown HPI HPI erosive tastritis, CIC: Details: Assessment & Plan (1) Post-cholecystectomy syndrome: Code(s): K91.5 - Postcholecystectomy syndrome Category: Medical (2) Erosive gastritis: Code(s): K29.60 - Other gastritis without bleeding Category: Medical (3) Nausea: Code(s): R11.0 - Nausea Category: Medical Plan Ghanaian #Jenise live Patient has been lost to follow-up since 05/2023 In the past she was on Dexilant Creon senna and dicyclomine. She has been struggling with her pulmonary status, as she seems to have unexplained pleural effusions and underwent a biopsy for this. She has been out of her Dexilant for about a year! With her hx of erosvie gastritis, this is not good. She is having a lot of nausea, and her CIC has returned. SHe also has been out of her senna. ROV 6 weeks. Medications: New hydrocortisone 2.5% (Proctosol HC) BE SURE TO INCLUDE RECTAL APPICATOR!! 1 appl KS BID 30 grams 6RF hemorrhoids K64.9 - Unspecified hemorrhoids dexlansoprazole (Dexilant) 60 mg PO DAILY 30 caps 6RF 30 days K29.60 - Other gastritis without bleeding Changed From sennosides 1-2 tabs qhs orally bedtime; 30 days 60 caps 6RF constipation To sennosides (senna) 1-2 tabs qhs orally bedtime; 60 caps 6RF constipation 30 days TODAY'S VISIT Ghanaian #[employer]ron Live In the past she was on Dexilant Creon senna and dicyclomine. AT THE LAST APPOINTMENT WE RESTARTED THE DEXILANT AND THE SENNA and we have held on the Creon for now. [facility] Medical History (Updated 05/22/25 @ 13:46 by JEB Olsen) Cataract, right eye Bilateral primary osteoarthritis of knee Gallstone pancreatitis Palpitations Fibromyalgia Depression Glaucoma HTN (hypertension) Surgical History (Updated 05/22/25 @ 13:31 by JEB Olsen) S/P thoracotomy H/O colonoscopy History of tubal ligation Hx of carpal tunnel repair Hx of cholecystectomy Hx of knee surgery Family History Father Kidney disease Mother CVD (cardiovascular disease) Colon cancer Social History Alcohol intake: never Patient Tobacco Use Status: Current everyday Tobacco user Cigarette Packs Per Day: 0.5 Cigarettes Per Day: 10 Years Smoked: 30 Female Reproductive History Menstrual Age of Menarche: 9 Review of Systems Const Denies fatigue, Denies fever(s), Denies night sweats, Reports poor appetite and Denies weight loss ENT Reports Normal hearing present, Denies dental pain, Denies dysphagia, Denies hearing loss, Denies mouth pain, Denies odynophagia, Denies throat swelling, Denies tongue swelling and Reports other (Dentition adequate) Card Reports no additional complaints Resp Reports no additional complaints GI Details: Reports abdominal pain, Denies melena, Denies bloating, Denies hematochezia, Reports constipation, Denies GI cramping, Denies dysphagia, Denies excessive flatus, Denies early satiety, Reports heartburn, Denies diarrhea, Reports nausea, Denies odynophagia, Reports vomiting and Denies hematemesis Skin/Breast Denies pruritus, Denies lesions, Denies rash and Denies jaundice Neuro Reports Normal hearing present and Denies Abnormal speech present Endo Denies fatigue Aller/Immun Denies throat swelling and Denies tongue swelling Physical Exam Vital Signs: Last Vital Signs Pulse 92 05/22/25 12:58 BP 132/77 05/22/25 12:58 BMI result Body Mass Index 36.8 Const General: cooperative, no acute distress, well developed and well groomed Nutritional Appearance: well nourished and obese Orientation/consciousness: oriented to person, oriented to place and oriented to time Limitations: language barrier HEENT Head: Yes normocephalic and Yes atraumatic Eyes General: appearance normal, both eyes and all related structures Pupils: Equal, round and reactive pupils present Neck Neck: Yes normal visual inspection and Yes no lymphadenopathy Thyroid: Thyroid normal Resp Effort & Inspection: normal respiratory effort and able to speak in complete sentences Auscultation: clear to auscultation bilaterally Cardio Rate: regular rate Rhythm: regular rhythm Heart sounds: Normal, physiologic split S2 sound present Peripheral pulses: radial pulses present and posterior tibial pulses present GI Inspection: No distended, Yes Abdominal panniculus present and Yes obesity Palpation (GI): Soft to palpation, nontender, no guarding, not rigid and No hepatosplenomegaly present Percussion: Yes normal to percussion Auscultation: normal bowel sounds Rectal Exam - Female: deferred Skin General skin exam: no rashes or lesions noted, turgor normal, skin not dry, no jaundice, No spider nevi and no striae Rashes: no rashes Nails: normal Neuro General: oriented to person, oriented to place and oriented to time Cranial nerves: Yes Equal, round and reactive pupils present and Yes Normal hearing present Speech: No Abnormal speech present Extrem General: Yes normal to inspection, No clubbing, No cyanosis and No edema Psych Appearance: grossly normal and well kempt Mental Status: mental status grossly normal Speech and movement: Normal speech and movement present Affect: normal affect Attitude: cooperative Thought process: Normal thought process present and not confabulating Thought content: Normal thought content present Insight: Fair insight present (Psych) and Limited insight present (Psych) Judgement: Fair judgement present (Psych) and Limited judgement present (Psych) Assessment & Plan Assessment & Plan (1) Erosive gastritis: Code(s): K29.60 - Other gastritis without bleeding Category: Medical (2) Nausea: Code(s): R11.0 - Nausea Category: Medical (3) Right sided abdominal pain: Code(s): R10.9 - Unspecified abdominal pain Category: Medical (4) Nausea and vomiting: Code(s): R11.2 - Nausea with vomiting, unspecified Category: Medical Plan Ghanaian Alex Live In the past she was on Dexilant Creon senna and dicyclomine. AT THE LAST APPOINTMENT WE RESTARTED THE DEXILANT AND THE SENNA and we have held on the Creon for now - The patient is a 54-year-old female presenting with nausea and constipation. - Reports persistent nausea since lung surgery, (thoracotomy at [facility]) worsens in the morning, exacerbated by smells and food intake. - Last bowel movement frequency affected due to HER PHARMACY NEVER DISTRIBUTING THE Senna. - Prior erosive esophagitis and gastritis; prior to coming to see me she had been out of her Dexilant for about a year. She only just received the Dexilant last week so she has not had a good trial of being back on it to see how this impacts her nausea - I did a thorough medication review to see if there are any medications that could be causing her continued nausea. I explained that sometimes nausea can be metabolic or even neurologic so I am trying to look at the big picture and make sure we do not miss anything. For now I am going to order a gastric emptying study and since she is due for colonoscopy we will get this along with an EGD. Since her nausea is worse 1st thing in the morning we will give her a trial of famotidine in the evening temporarily to see if we can promote healing. We will also give her ondansetron/Zofran for her nausea and vomiting. She tells me she is no longer taking VESIcare because it caused her too much dry mouth. Return office visit in 3 weeks Orders: Orders NM gastric emptying study Today R10.9 - Unspecified abdominal pain, R11.0 - Nausea Referrals GI Procedure Notification K29.60 - Other gastritis without bleeding, R10.9 - Unspecified abdominal pain, R11.0 - Nausea Medications: New famotidine (Pepcid) 40 mg PO BEDTIME 30 tabs 6RF ondansetron 4 mg PO BID-TID PRN 90 tabs 3RF nausea and vomiting R11.2 - Nausea with vomiting, unspecified Refilled sennosides (senna) 1-2 tabs qhs orally bedtime; 60 caps 6RF constipation 30 days On Hold solifenacin (Vesicare) Hold Comment: pt not taking r/t dry mouth 10 mg PO DAILY 30 tabs 5RF Coding Level of Care Code Est Pt Level 4 (44489) Diagnoses Erosive gastritis K29.60 Nausea R11.0 Right sided abdominal pain R10.9 Nausea and vomiting R11.2 Time Spent (min) 34
== END 2025-05-22 13:50 | disposition home or self-care (01) ==
LOC: HO.HGI 12:50
PROVIDERS: PCP Internal Medicine; Visit Provider Nurse Practitioner
DX: K29.60 Other gastritis without bleeding (principal); R11.0 Nausea; R10.9 Unspecified abdominal pain; R11.2 Nausea with vomiting, unspecified
CPT/HCPCS: 99214

== ENCOUNTER 2025-06-08 12:50 | Outpatient (AMB) | payer MEDICAID, SELFPAY ==
[2025-06-08 13:08] VITALS: BP 120/70; PULSE 81; O2SAT 99; BMI 36.1
--- NOTE | 2025-06-08 13:08 | MHC.OFFVIS ---
Vital Signs 06/08/25 13:08 Height 5 ft 3 in Weight 203 lb 14.841 oz BMI 36.1 BP 120/70 Blood Pressure Location Rt brachial Position Sitting Pulse 81 Pulse Source Pulse Oximeter Pulse Oximetry (%) 99 Oxygen Delivery Method Room Air Intake Visit Reasons: asthma Basket Turner Required: Yes Basket Turner Language: Emergency Care Attendant Services: Basket Turner Present Basket Turner Name: Bette Valdivia LM Allergies metronidazole Allergy (Severe, Verified 06/08/25 13:12) vomiting Penicillins Allergy (Mild, Verified 06/08/25 13:12) VAGINAL FUNGUS INFECTION lisinopril (LISINOPRIL) Allergy (Unknown, Verified 06/08/25 13:12) COUGH verapamil Allergy (Unknown, Verified 06/08/25 13:12) unknown amoxicillin Adverse Reaction (Verified 06/08/25 13:12) Unknown HPI HPI asthma: Details: Elaine is a pleasant 54 year old female, former 30 pack year smoker, recently quit with underlying asthma, JERRI on CPAP managed through [facility], HTN and depression. Chest CT performed in June 2024 revealed stable anterior mediastinal lymphadenopathy/mass measuring 3.1 cm in the largest dimension and pulmonary nodules <2mm, compared to CT chest 12/2024 revealed a few enlarged and prominent mediastinal lymph nodes, prevascular lymph node measuring 3.3 x 1.6 cm and referred to Dr. Kern for further evaluation. She ultimately underwent thymectomy on 02/11/25, pathology reportedly benign. Unfortunately, she proceeded with previously ordered chest CT performed on 03/17/25 which noted moderate bilateral effusions and patient reported overall feeling unwell with associated dry cough, no change in dyspnea. BNP 11, prior echo 2020 unremarkable. She underwent thoracentesis on 03/27 with IP from [facility], drained 600 mls exudative fluid predominantly eosinophilic. She reported increased dyspnea and intermittent chest discomfort as well as posterior left leg pain which developed after thymectomy. She reportedly underwent US to rule out DVT and was negative. During this time sent for CTA to r/o PE which was negative as well as updated PFTs, presents to review results. Since the last visit, underwent repeat thoracentesis in April, no records available.. She also notes being recently treated for pneumonia although unclear if this was based on symptoms or imaging. However does note sick contact while awaiting ED evaluation at [facility] two weeks ago. She continues with productive harsh cough green sputum, wheezing and inspiratory chest pain. She does note lateral chest pain is improving with doxycycline. She has a few more days left of medication. She denies fevers. She states she is due for another thoracentesis 07/10 with [facility]. [facility] Medical History (Updated 06/08/25 @ 14:24 by Amy Zimmerman NP) Cataract, right eye Bilateral primary osteoarthritis of knee Gallstone pancreatitis Palpitations Fibromyalgia Depression Glaucoma HTN (hypertension) Surgical History (Updated 05/22/25 @ 13:31 by JEB Olsen) S/P thoracotomy H/O colonoscopy History of tubal ligation Hx of carpal tunnel repair Hx of cholecystectomy Hx of knee surgery Family History Father Kidney disease Mother CVD (cardiovascular disease) Colon cancer Social History Alcohol intake: never Patient Tobacco Use Status: Current everyday Tobacco user Cigarette Packs Per Day: 0.5 Cigarettes Per Day: 10 Years Smoked: 30 Female Reproductive History Menstrual Age of Menarche: 9 Review of Systems Const Denies chills, Denies excessive sweating, Denies fever(s), Denies headache(s) and Denies night sweats Eyes Denies dry eyes, Denies irritation and Denies itchy eyes ENT Reports Normal hearing present and Denies headache(s) Card Denies claudication, Denies leg edema, Reports dyspnea, Reports dyspnea on exertion, Denies orthopnea and Denies paroxysmal nocturnal dyspnea Resp Reports change in phlegm color, Reports cough, Denies hemoptysis, Denies excessive phlegm production, Reports pain with cough, Reports dyspnea, Reports dyspnea on exertion, Denies stridor and Reports wheezing Musc Denies myalgias Neuro Reports Normal hearing present and Denies headache(s) Endo Denies excessive sweating Jhonathan/Lymph Denies lymphadenopathy Aller/Immun Denies itchy eyes, Denies seasonal rhinorrhea and Reports wheezing Physical Exam Vital Signs: Last Vital Signs Pulse 81 06/08/25 13:08 BP 120/70 06/08/25 13:08 Pulse Ox 99 06/08/25 13:08 Oxygen Delivery Method Room Air 06/08/25 13:08 BMI result Body Mass Index 36.1 Const General: cooperative, healthy appearing, comfortable, no acute distress, well developed and alert Orientation/consciousness: patient oriented x3 Limitations: no limitations HEENT Head: Yes normal to inspection, Yes normocephalic and Yes atraumatic Ears: hearing grossly normal bilaterally and external ears normal Eyes General: appearance normal, both eyes and all related structures Eyelids: Yes eyelids normal Sclerae: sclerae normal EOM: EOMs intact bilaterally Neck Neck: Yes normal visual inspection and Yes no lymphadenopathy Lymphatic: no lymphadenopathy noted Chest Chest palpation & inspection: normal inspection of the chest Resp Effort & Inspection: normal respiratory effort, able to speak in complete sentences, no audible wheezes, Actively coughing, no stridor, not tachypneic, no tripod positioning and no use of accessory muscles Auscultation: rhonchi and wheezes Cardio Jugular venous distension: no JVD Rate: regular rate Rhythm: regular rhythm Skin Other: warm, dry General skin exam: no rashes or lesions noted Neuro General: patient oriented x3 Cranial nerves: Yes Normal hearing present Cognition (Neuro): normal cognition Gait exam (Neuro): Normal gait present Extrem General: Yes normal to inspection, Yes capillary refill normal, Yes no clubbing, cyanosis or edema and Yes no pedal edema Psych Appearance: grossly normal and well kempt Speech and movement: Normal speech and movement present and Clear speech present Affect: normal affect Attitude: cooperative Thought process: Normal thought process present Thought content: Normal thought content present Insight: Good insight present (Psych) Judgement: Good judgement present (Psych) Assessment & Plan Assessment & Plan (1) Pleural effusion: Code(s): J90 - Pleural effusion, not elsewhere classified Category: Medical (2) Asthma: Code(s): J45.909 - Unspecified asthma, uncomplicated Category: Medical (3) Mediastinal lymphadenopathy: Code(s): R59.0 - Localized enlarged lymph nodes Category: Medical (4) Nicotine dependence: Code(s): F17.200 - Nicotine dependence, unspecified, uncomplicated Category: Medical (5) Dyspnea: Code(s): R06.00 - Dyspnea, unspecified Category: Medical (6) Eosinophilia: Code(s): D72.10 - Eosinophilia, unspecified Category: Medical Plan Elaine initially presented with mediastinal lymphadenopathy which was progressing. Underwent thymectomy, negative for malignancy and since has had worsening dyspnea and chest pain with new onset bilateral pleural effusions, eosinophilic predominant. She also underwent labs which revealed significant eosinophils possibly related to hypereosinophilic conditions. Will send to hematology for further evaluation. Will also send for further work up with [facility] for vasculitis, HSP panel for potential exposures and Tspot. She does note her current living conditions are quite humid questioning mold exposure. She denies any traveling which would raise the concern of parasitic infection, may need to consider. Given significant eosinophilia, will treat with prednisone. Patient noted that she could not tolerate higher doses in the past so will start with a lower taper. All questions were answered and patient is in agreement of plan. Will follow up in 4-6 weeks or sooner if needed. Orders: Orders [facility] Vasculitides Today R05.9 - Cough, unspecified Hypersensitive Pneumonitis Prf Today R05.9 - Cough, unspecified T Spot TB Today R05.9 - Cough, unspecified Referrals Hematology & Oncology Referral D72.10 - Eosinophilia, unspecified Medications: New prednisone see taper instructions 20 mg x 5 days, 15 mg x 5 days, 10 mg x 5 days, 5 mg x 5 days 10 mg PO DIRECTED 28 tabs 0RF Coding Level of Care Code Est Pt Level 4 (31161) Complex EM visit Add On G2211 Diagnoses Pleural effusion J90 Asthma J45.909 Mediastinal lymphadenopathy R59.0 Nicotine dependence F17.200 Dyspnea R06.00 Eosinophilia D72.10
--- OUTSIDE RECORDS SUMMARY | 2025-06-08 13:57 | XMS_ITS | Encounter Summary ---
Author Organization [employer] Address [address] [place] [address] 7t [place] [address] Care Team Providers Care Sr Community Manager Name Role Phone Mychal Fields MD Primary Care Provide r Hima Fam Unavailable Unavailable Yaneth Dotson RN Unavailable [phone] Mckenzie Silverio Unavailable Encounter Details Date Type Department Care Team (Late st Contact Info) Description 12/05/2022 Orders Only [facility] CHC MED & PEDS [address] [place] [address] Veda Isabel LPN Social History Tobacco Use [...] 2:00 PM EST Office Visit [facility] MEDICINE [address] [place] [address] [phone] Manjeet Deluca MD [address] [place] [address] [phone] 08/18/2025 2:15 PM EST Office Visit [facility] MEDICINE [address] [place] [address] Mychal Fields MD [address] [place] [address] documented as of this encounter Visit Diagnoses Not on filedocumented in this encounter Additional Health Concerns Assessment Noted Time PHQ-9 Depression Total Score: 7 10/09/19 23 4:00 PM EST documented as of this encounter Care Teams Sr Community Manager Relationship Specialty Start Date End Date Mychal Fields MD [address] [place] [address] PCP - General Internal Medicine 04/30/14 Hima Fam FNP [address] [place] [address] Nurse Practitioner Family Medicine 08/01/23 Yaneth Dotson, ALAN [address] [place] [address] Registered Nurse Family Medicine 02/24/25 Mckenzie Silverio 02/24/25 [employer] 02/13/25 03/29/25 documented as of this encounter
--- OUTSIDE RECORDS SUMMARY | 2025-06-08 13:57 | XMS_ITS | Encounter Summary ---
Author Organization [employer] Address [address] [place] [address] 7t [place] [address] Care Team Providers Care Cfo Name Role Phone Mychal Fields MD Primary Care Provide r Hima Fam Unavailable Unavailable Yaneth Dotson RN Unavailable [phone] Mckenzie Silverio Unavailable Encounter Details Date Type Department Care Team (Late st Contact Info) Description 06/05/2025 Telephone [facility] MEDICINE [address] [place], [place] [phone] Mychal Fields MD [address] [place], [place] [phone] Social History Tobacco Use Types Packs/Day Years [...] encounter Miscellaneous Notes * Telephone Encounter - Tari Vitale RN - 06/05/2025 2:14 PM EDT Call returned to Elaine Rodas to triage below at [phone]. Reports seen at [facility] ER for elevatedD-Dimer. Pt diagnosis with ground glass opacities. Given prescription for doxycycline. Pt states having pain with cough and SOB. Pt has not called pulmonology to notify that is still having symptoms.Pt has upcoming appointment with Pulmo on 06/08. Pt already had follow up with Thoracic surgeon. Pt is using pumps as ordered. Pt advised to finish antibiotics as ordered but to seek ER if symptoms donot improve tonight. Pt agrees to seek [facility] ER for care.. To call pulmo and update on symptoms. Reviewed home care advise, ER precautions and reasons to call back. Protocol Used: Pneumonia Follow-up Call (Adult) Protocol-Based Disposition: Discuss with PCP and Callback by Nurse within 1 Hour Override (Final) Disposition: Go to ED/[facility]CC Now (or to Office Now per Policy) Override Reason: Nurse judgment Positive Triage Question: * Taking antibiotic > 24 hours for pneumonia and breathing is worse * All higher-acuity triage questions were negative Care Advice Discussed: * Reassurance and Education - Pneumonia * Continue Antibiotic * Drink Plenty of Liquids * Avoid Tobacco Smoke * Humidifier * Reasons To Call Back - Breathing becomes more difficult, or gets worse - You become worse * Telephone Encounter - Tari Vitale RN - 06/05/2025 2:12 PM EDT ----- Message from Lizzy Dotson sent at 06/05/2025 2:08 PM EDT ----- Ma called to book recall appointment for August . Pt stated she went to the er [facility] and stillnot feeling good. Ma explain to pt that message will be forward to nurse a nurse will call ptPt agreed with plan documented in this encounter Plan of Treatment Upcoming Encounters Date Type Department Care Team (Late st Contact Info) Description 07/24/2025 2:00 PM EST Office Visit [facility] MEDICINE [address] [place] [address] Manjeet Deluca MD [address] [place] [address] 08/18/2025 2:15 PM EST Office Visit [facility] MEDICINE [address] [place] [address] Mychal Fields MD [address] [place] [address] documented as of this encounter Visit Diagnoses Not on filedocumented in this encounter Additional Health Concerns Assessment Noted Time PHQ-9 Depression Total Score: 15 025 12:51 PM EDT documented as of this encounter Care Teams Cfo Relationship Specialty Start Date End Date Mychal Fields MD [address] [place] [address] PCP - General Internal Medicine 04/30/14 Hima Fam FNP [address] [place] [address] Nurse Practitioner Family Medicine 08/01/23 Yaneth Dotson, ALAN [address] [place] [address] Registered Nurse Family Medicine 02/24/25 Mckenzie Silverio 02/24/25 documented as of this encounter
--- OUTSIDE RECORDS SUMMARY | 2025-06-08 13:57 | XMS_ITS ---
Author Organization [employer] Address [address] [place] [address] 7t [place] [address] Care Team Providers Care Physical Laboratory Assistant Name Role Phone Mychal Fields MD Primary Care Provide r Hima Fam Unavailable Unavailable Yaneth Dotson RN Unavailable [phone] Mckenzie Silverio Unavailable CM Complex Status:Enrolled (Active) Start date:02/24/2025 Enrollment date:03/04/2025 Enrollment reason:ADT Feed Overview ED- Pt went to [facility] ED on 02/23/25. Case Team Name Relationship Phone Yaneth Dotson RN(Responsible Staff) Registered Nurse [phone] Continued Care and Services Coordination
--- OUTSIDE RECORDS SUMMARY | 2025-06-08 13:57 | XMS_ITS | Encounter Summary ---
Author Organization [employer] Address [address] [place] [address] 7t [place] [address] Care Team Providers Care Business Process Architect Name Role Phone Mychal Fields MD Primary Care Provide r Hima Fam Unavailable Unavailable Yaneth Dotson RN Unavailable [phone] Mckenzie Silverio Unavailable Reason for Visit * Reason Comments Med Refill Encounter Details Date Type Department Care Team (Late st Contact Info) Description 07/27/2023 Refill [facility] MEDICINE [address] [place], [place] [phone] Mychal Fields MD [address] [place], [place] [phone] Social History Tobacco Use Types Packs/Day Years Used Date Smoking Tobacco: Never Passive Smoke Exposure: Never Smokeless Tobacco: Never Alcohol Use Standard Drinks/Week Comments Never 0 (1 standard drink = 0.6 oz pur e alcohol) Depression Answer Date Recorded Patient Health Questionnaire-9 Score 0 05/10/2023 Housing Stability Answer Date Recorded What is your housing situation today? I have gee rebeka 06/26/[address] you li [...] 2:00 PM EST Office Visit [facility] MEDICINE [address] [place] [address] Manjeet Deluca MD [address] [place] [address] 08/18/2025 2:15 PM EST Office Visit [facility] MEDICINE [address] [place] [address] Mychal Fields MD [address] [place] [address] documented as of this encounter Visit Diagnoses Not on filedocumented in this encounter Additional Health Concerns Assessment Noted Time PHQ-9 Depression Total Score: 0 05/10/20 23 10:38 AM EDT documented as of this encounter Care Teams Business Process Architect Relationship Specialty Start Date End Date Mychal Fields MD [address] [place] [address] PCP - General Internal Medicine 04/30/14 Hima Fam FNP [address] [place] [address] Nurse Practitioner Family Medicine 08/01/23 Yaneth Dotson, ALAN [address] [facility] [place] [address] Registered Nurse Family Medicine 02/24/25 Mckenzie Silverio 02/24/25 [employer] 02/13/25 03/29/25 documented as of this encounter
--- OUTSIDE RECORDS SUMMARY | 2025-06-08 13:57 | XMS_ITS | Encounter Summary ---
Author Organization [employer] Address [address] [place] [address] 7t [place] [address] Care Team Providers Care Nursing Unit Clerk Name Role Phone Mychal Fields MD Primary Care Provide r Hima Fam Unavailable Unavailable Yaneth Dotson RN Unavailable [phone] Mckenzie Silverio Unavailable Reason for Visit * Reason Comments Med Change Request Encounter Details Date Type Department Care Team (Late Contact Info) Description 10/19/2022 Refill [facility] MEDICINE [address] [place] [address] [phone] Mychal Fields MD [address] [place] [address] [phone] Fibromyalgia Social History Tobacco Use Types Packs/Day [...] Description 07/24/2025 2:00 PM EST Office Visit [facility] MEDICINE [address] [place] [address] [phone] Manjeet Deluca MD [address] [place], [place] [phone] 08/18/2025 2:15 PM EST Office Visit [facility] MEDICINE [address] [place] [address] Mychal Fields MD [address] [place] [address] documented as of this encounter Visit Diagnoses Diagnosis Fibromyalgia Unspecified myalgia and myositis documented in this encounter Additional Health Concerns Assessment Noted Time PHQ-9 Depression Total Score: 7 10/09/19 23 4:00 PM EST documented as of this encounter Care Teams Nursing Unit Clerk Relationship Specialty Start Date End Date Mychal Fields MD [address] [place] [address] PCP - General Internal Medicine 04/30/14 Hima Fam FNP [address] [place] [address] Nurse Practitioner Family Medicine 08/01/23 Yaneth Dotson, ALAN [address] [place] [address] Registered Nurse Family Medicine 02/24/25 Mckenzie Silverio 02/24/25 [employer] 02/13/25 03/29/25 documented as of this encounter
--- OUTSIDE RECORDS SUMMARY | 2025-06-08 13:57 | XMS_ITS | Encounter Summary ---
Author Organization [employer] Address [address] [place] [address] 7t [place] [address] Care Team Providers Care Project Production Engineer Name Role Phone Mychal Fields MD Primary Care Provide r Hima Fam Unavailable Unavailable Yaneth Dotson RN Unavailable [phone] Mckenzie Silverio Unavailable Reason for Visit * Reason Onset Date Comments Med Refill 04/30/2025 Encounter Details Date Type Department Care Team ([facility] st Contact Info) Description 04/30/2025 Telephone [facility] MEDICINE [address] [place], [place] [phone] Mychal Fields MD [address] [place], [place] [phone] Med Refill Social History Tobacco Use Types [...] 1 MG tablet To be sent to: [facility]/pharmacy #[id number] documented in this encounter Plan of Treatment Upcoming Encounters Date Type Department Care Team (Late st Contact Info) Description 07/24/2025 2:00 PM EST Office Visit [facility] MEDICINE [address] [place] [address] Manjeet Deluca MD [address] [place] [address] 08/18/2025 2:15 PM EST Office Visit [facility] MEDICINE [address] [place] [address] Mychal Fields MD [address] [place] [address] documented as of this encounter Visit Diagnoses Not on filedocumented in this encounter Additional Health Concerns Assessment Noted Time PHQ-9 Depression Total Score: 15 025 12:51 PM EDT documented as of this encounter Care Teams Project Production Engineer Relationship Specialty Start Date End Date Mychal Fields MD [address] [place] [address] PCP - General Internal Medicine 04/30/14 Hima Fam FNP [address] [place] [address] Nurse Practitioner Family Medicine 08/01/23 Yaneth Dotson, ALAN [address] [place] [address] Registered Nurse Family Medicine 02/24/25 Mckenzie Silverio 02/24/25 documented as of this encounter
--- OUTSIDE RECORDS SUMMARY | 2025-06-08 13:57 | XMS_ITS | Encounter Summary ---
Author Organization [employer] Address [address] [place] [address] 7 [place] [address] Care Team Providers Care Information Assurance Officer Name Role Phone Mychal Fields MD Primary Care Provide r Hima Fam Unavailable Unavailable Yaneth Dotson RN Unavailable [phone] Mckenzie Silverio Unavailable Encounter Details Date Type Department Care Team (Late st Contact Info) Description 12/04/2022 Telephone [facility] MEDICINE [address] [place] [address] [phone] Mychal Fields MD [address] [place] [address] [phone] Social History Tobacco Use Types Packs/Day Years [...] PM EST Office Visit [facility] MEDICINE [address] [place] [address] [phone] Manjeet Deluca MD [address] [place], [place] [phone] 08/18/2025 2:15 PM EST Office Visit [facility] MEDICINE [address] [place], [place] [phone] Mychal Fields MD [address] [place] [address] documented as of this encounter Visit Diagnoses Not on filedocumented in this encounter Additional Health Concerns Assessment Noted Time PHQ-9 Depression Total Score: 7 10/09/19 23 4:00 PM EST documented as of this encounter Care Teams Information Assurance Officer Relationship Specialty Start Date End Date Mychal Fields MD [address] [place] [address] PCP - General Internal Medicine 04/30/14 Hima Fam FNP [address] [place] [address] Nurse Practitioner Family Medicine 08/01/23 Yaneth Dotson, ALAN [address] [place] [address] Registered Nurse Family Medicine 02/24/25 Mckenzie Silverio 02/24/25 [employer] 02/13/25 03/29/25 documented as of this encounter
--- OUTSIDE RECORDS SUMMARY | 2025-06-08 13:57 | XMS_ITS | Encounter Summary ---
Author Organization [employer] Address [address] [place] [address] 7 [place] [address] Care Team Providers Care School Cafeteria Head Cook Name Role Phone Mychal Fields MD Primary Care Provide r Hima Fam Unavailable Unavailable Yaneth Dotson RN Unavailable [phone] Mckenzie Silverio Unavailable Reason for Visit * Reason Onset Date Comments Appointment Request 12/04/2022 Encounter Details Date Type Department Care Team ([facility] st Contact Info) Description 12/04/2022 Telephone [facility] MEDICINE [address] [place], [place] [phone] Mychal Fields MD [address] [place], [place] [phone] Appointment Request Social History Tobacco Use Types [...] ff/u Bp ) Please contact pt at [phone] * Telephone Encounter - Wesley Collins - 12/04/2022 2:02 PM EDT Tc from pt requesting to r/s appt on 10/19/22 ( ff/u Bp ) Please contact pt at [phone] documented in this encounter Plan of Treatment Upcoming Encounters Date Type Department Care Team (Late st Contact Info) Description 07/24/2025 2:00 PM EST Office Visit [facility] MEDICINE [address] [place] [address] Manjeet Deluca MD [address] [place] [address] 08/18/2025 2:15 PM EST Office Visit [facility] MEDICINE [address] [place] [address] Mychal Fields MD [address] [place] [address] documented as of this encounter Visit Diagnoses Not on filedocumented in this encounter Additional Health Concerns Assessment Noted Time PHQ-9 Depression Total Score: 7 10/09/19 23 4:00 PM EST documented as of this encounter Care Teams School Cafeteria Head Cook Relationship Specialty Start Date End Date Mychal Fields MD [address] [place] [address] PCP - General Internal Medicine 04/30/14 Hima Fam FNP [address] [place] [address] Nurse Practitioner Family Medicine 08/01/23 Yaneth Dotson, ALAN [address] [place] [address] Registered Nurse Family Medicine 02/24/25 Mckenzie Silverio 02/24/25 [employer] 02/13/25 03/29/25 documented as of this encounter
--- OUTSIDE RECORDS SUMMARY | 2025-06-08 13:57 | XMS_ITS | Encounter Summary ---
Author Organization [employer] Address [address] [place] [address] 7t [place] [address] Care Team Providers Care Supervisor Power Reactor Name Role Phone Mychal Fields MD Primary Care Provide r Hima Fam Unavailable Unavailable Yaneth Dotson RN Unavailable [phone] Mckenzie Silverio Unavailable Reason for Visit * Reason Onset Date Comments august recall 06/05/2025 Encounter Details Date Type Department Care Team ([facility] st Contact Info) Description 06/05/2025 Telephone [facility] MEDICINE [address] [place], [place] [phone] Mychal Fields MD [address] [place], [place] [phone] august recall Social History Tobacco Use Types Packs/Day Years [...] encounter Miscellaneous Notes * Telephone Encounter - Lizzy Dotson MA - 06/05/2025 2:06 PM EDT ..Telephone call to patient to schedule the following recall: Visit type: Office visit Appointment notes: HTN Patient agree to appointment on 08/18 at 2;15 PM with Annalisa. documented in this encounter Plan of Treatment Upcoming Encounters Date Type Department Care Team (Late st Contact Info) Description 07/24/2025 2:00 PM EST Office Visit [facility] MEDICINE [address] [place] [address] Manjeet Deluca MD [address] [place] [address] 08/18/2025 2:15 PM EST Office Visit [facility] MEDICINE [address] [place] [address] [phone] Mychal Fields MD [address] [place] [address] documented as of this encounter Visit Diagnoses Not on filedocumented in this encounter Additional Health Concerns Assessment Noted Time PHQ-9 Depression Total Score: 15 025 12:51 PM EDT documented as of this encounter Care Teams Supervisor Power Reactor Relationship Specialty Start Date End Date Mychal Fields MD [address] [place] [address] PCP - General Internal Medicine 04/30/14 Hima Fam FNP [address] [place] [address] Nurse Practitioner Family Medicine 08/01/23 Yaneth Dotson RN [address] [place] [address] Registered Nurse Family Medicine 02/24/25 Mckenzie Silverio 02/24/25 documented as of this encounter
--- OUTSIDE RECORDS SUMMARY | 2025-06-08 13:57 | XMS_ITS ---
Author Organization [employer] Address [address] [place] [address] 7 [place] [address] Care Team Providers Care Night Nurse Name Role Phone Mychal Fields MD Primary Care Provide r Hima Fam KNITTER HELPER Unavailable Unavailable Yaneth Dotson RN Unavailable [phone] Mckenzie Silverio Unavailable [facility] Complex Status:Enrolled (Active) Start date:02/24/2025 Enrollment date:03/04/2025 Enrollment reason:ADT Feed Overview ED- Pt went [place] [facility] [place]. Please outreach for enrollment. Case Team Name Relationship Phone Mckenzie Silverio(Responsible Staff) [phone] Continued Care and Services Coordination
--- OUTSIDE RECORDS SUMMARY | 2025-06-08 13:57 | XMS_ITS | Clinical Summary ---
Author Organization [employer] Address [address] [place] [address] 7t [place] [address] Care Team Providers Care Timber Management Technician Name Role Phone Mychal Fields MD Primary Care Provide r Hima Fam Unavailable Unavailable Yaneth Dotson RN Unavailable [phone] Mckenzie Silverio Unavailable Allergies Active Allergy Reactions [...] (two) hours if needed. 024 Active rizatriptan ABLE BODIED WATCHMAN (Maxalt-ABLE BODIED WATCHMAN) 5 MG disintegrating tablet 024 Active terbinafine (LamISIL AT) 1 % creamIndications: Tinea Apply topically 2 times daily. 42 g 1 025 Active Additional Information Patient not taking.Reported on 03/04/2025 varenicline (Chantix) 1 MG tabletIndications :Smoker TAKE 1 TABLET BY MOUTH TWICE A DAY WITH GLASS OF WATER AFTER MEALS 56 tablet 1 06/06/2 025 Active Additional Information Patient not taking.Reported [...] NEEDED FOR SLEEP 30 tablet 025 Active zolpidem (Ambien) 10 MG [...] was evaluated by Dr. Wynn at our [facility] who recommended to check D dimer [...] We are trying to get her to [facility] before the lab and xray close [...] reports she has completed thyroid ultrasound at [facility], notes not available at this time [...] EDT): Pelvis exam indicative of this Plan: REMEDIATION CONSULTANT referral Right foot pain 05/10/2023 Assessment & [...] tolerate NSAIDS Patient was eventually seen at [facility] neurology 04/04/2024. They recommended repeat brain MRI [...] with no good results, cannot tolerate NSAIDS [facility] is not accepting new patients at the moment. Will try to refer to a different Neurologist perhaps at [facility] Assessment & Plan (01/17/2024 1:06 PM [...] will also be referring to Neurology at [facility] Assessment & Plan (04/03/2023 1:22 PM EDT): [...] who retired Pt has a therapist at [facility] I recommended she speak with therapist about referral to agency psychiatrist, unfortunatelly they do not have any availability In the meantime I will manage medications if necessary. Plan: Continue: clonazePAM (KlonoPIN) 1 MG tablet hydrOXYzine HCl (Atarax) 25 MG tablet zolpidem (Ambien) 10 MG tablet Will refer to our sr. vendor management associate Assessment & Plan (05/15/2024 1:34 PM EDT): Patient has tried many different antidepressants and mood stabilizers but she was intolerant of everything. She is doing reasonably well. Her panic attacks respond to Hydroxyzine 25 mg prn. She takes Clonazepam 1 mg TID prn. And Ambien 10 mg at bedtime. This was prescribed by Hima Fam who recently retired Pt has a therapist at [facility] I recommended she speak with therapist about [...] necessary. For any issues or concerns, contact [facility]. All her questions were answered [...] is being followed by a psychotherapist and Hmia Fam. Hima mentioned pt has had problems [...] used to be under the care of workers compensation claims specialist who had been prescribing Baclofen Assessment [...] used to be under the care of workers compensation claims specialist who had been prescribing tramadol 100mg [...] without neural impingement. Pt was seen at [facility] 04/2023 and has a follow up [...] without neural impingement. Pt was seen at [facility] recently has a follow up recommended [...] neural impingement. Pt will be referred to [facility] Smoker 02/21/2012 Assessment & Plan (04/03/2023 [...] organization. Date Type Department Care Team Description 06/05/2025 Telephone [facility] Jose Daniel [facility] [place] [address] Mychal Fields MD 06/05/2025 Telephone [facility] [place] [address] Mychal Fields MD august06/01/2025 Patient Outreach [facility] [place] [place] [address] Mychal Fields MD 05/28/2025 Patient Outreach [address] [address] Mychal Fields MD Care Management (C3CM- f/u call) 05/27/2025 Patient Outreach [facility] [place] [address] Mychal Fields MD Care Coordination ([facility] f/u ) 05/27/2025 Patient Outreach [facility] [place] [place] [address] Mychal Fields MD Care Management (C3CM- f/u call #4 lvm) 05/18/2025 Patient Outreach [facility] [place] [place] [address] Mychal Fields MD Care Management (C3CM- f/u call #4 lvm) 05/12/2025 Refill [facility] [place] [address] Mychal Fields MD Anxiety and depression 05/12/2025 Orders Only [facility] External Provider, [facility] 05/06/2025 Patient Outreach [facility] [place] [address] Mychal Fields MD Care Coordination (Appt reminder) 05/05/2025 Patient Outreach [facility] [address] [place] [address] Mychal Fields MD Care Coordination (SDOH f/u) 05/05/2025 Patient Outreach [address] [address] Mychal Fields MD Care Management (C3CM- f/u call # lvm) 04/30/2025 Refill [facility] [address] [place] [address] Noemy Frye RN Anxiety and depression 04/30/2025 Refill [facility] [address] [place] [address] Mychal Fields MD Essential hypertension 04/30/[address] [address] Mychal Fields MD Med Refill 04/21/2025 Patient Outreach [address] [address] Mychal Fields MD Care Coordination (SDOH f/u) 04/21/2025 Patient Outreach [address] [address] Mychal Fields MD Care Management (C3CM- f/u call lvm) 04/16/2025 11:30 AM EDT Office Visit [address] [address] Mychal Fields MD Microscopic hematuria (Primary Dx); Restrictive lung disease; Essential hypertension; Low vitamin D level 04/16/2025 Travel 04/16/[address] [address] Mychal Fields MD Error (VOID this visit) 04/16/2025 Refill [facility] [address] [place] [address] Claudette Nassar MD 04/09/2025 Patient Outreach [facility] [address] [place] [address] Mychal Fields MD Care Management (C3CM- f/u call lvm) 04/09/2025 Patient Outreach [facility] [address] [facility] [place] [address] Mychal Fields MD Care Coordination (Appt reminder) 04/09/2025 Refill [facility] [address] [facility] [place] [address] Mychal Fields MD Chronic midline low back pain without sciatica 04/08/2025 Refill [facility] [address] [facility] [place] [address] Mychal Fields MD Anxiety and depression 04/08/2025 Patient Outreach [facility] [address] [facility] [place] [address] Mychal Fields MD Pre-visit Planning (Pre-visit planning - LVM ) 04/05/2025 Refill [facility] [address] [facility] [place] [address] Mychal Fields MD 04/03/2025 Patient Outreach [facility] [address] [facility] [place] [address] Mychal Fields MD Care Coordination (Appt reminder) 04/02/2025 Telephone [facility] [address] [facility] [place] [address] Mychal Fields MD Care Management (C3CM) 04/01/2025 Patient Outreach [facility] [address] [facility] [place] [address] Mychal Fields MD 04/01/2025 Telephone [facility] [address] [place] [address] Mychal Fields MD Care Management (C3CM- f/u call) 04/01/2025 Patient Outreach [facility] [address] [facility] [place] [address] Mychal Fields MD Care Coordination (PT1) 03/31/2025 Patient Outreach [facility] [address] [place] [address] Mychal Fields MD Care Management (C3CM- f/u call #2. lvm) 03/31/2025 Patient Outreach [address] [address] Mychal Fields MD Care Coordination (PT1) 03/31/2025 Patient Outreach [address] [address] Mychal Fields MD Care Coordination (pt1) 03/25/2025 Refill [facility] [address] [place] [address] Mychal Fields MD Anxiety and depression 03/24/2025 Patient Outreach [address] [address] Mychal Fields MD Care Management (C3- 1st f/u call lvm) 03/24/2025 Patient Outreach [address] [address] Mychal Fields MD Care Coordination (SDOH) 03/23/2025 Patient Outreach [address] [address] Mychal Fields MD 03/20/2025 Patient Outreach [address] [address] Mychal Fields MD Care Coordination (Appt reminder) 03/17/2025 Orders Only [facility] External Provider, [facility] 03/16/2025 Patient Outreach [address] [address] Mychal Fields MD Care Coordination (Appt reminder) from Last 3 Months Immunizations Immunization Administration [...] EST Office Visit [facility] [address] [place] [address] Manjeet Deluca MD [address] [place] [address] 08/18/2025 2:15 PM EST Office Visit [facility] [address] [place] [address] Mychal Fields MD [address] [place] [address] Health Maintenance Due Date Last Done Comments [...] Procedure Name Priority Date/Time Associated Diagnosis Comments BASIC METABOLIC PANEL Routine 05/22/2025 2:00 PM EDT Essential hypertension POCT CREATININE GFR Routine 05/12/2025 1 0:39 [...] AUTO DIFFERENTIAL Routine 03/17/2025 6:42 PM EDT [id number] ING ENZYME Routine 03/17/2025 2:07 PM EDT MAURICE [...] Recently Relevant to Health Maintenance Results * (ABNORMAL) Basic Metabolic Panel (05/22/2025 2:00 PM EDT) Sodium 141 135 - 145 mmol/L [facility] Potassium 3.8 3.3 - 5.1 mmol/L [facility] Chloride 105 96 - 108 mmol/L [facility] Carbon Dioxide 29 22 - 29 mmol/L [facility] Anion Gap 11(L) 12 - 20 [facility] Urea Nitrogen (BUN) 8(L) 9 - 16 mg/dL [facility] Creatinine, Serum 0.85 0.5 - 1.4 mg/dL [facility] Estimated Glomerular Filt Rate >60 [facility] Comment:Chronic Kidney Disea se: Estimated GFR < 60 mL/min/1.87u8Kbacej Kidney Disease: Estimated GFR < 15 mL/min/1.73m2 Glucose 110 60 - 115 mg/dL [facility] Calcium 9.0 8.4 - 10.2 mg/dL [facility] Blood Venous blood specimen / Unknown 05/22/2025 2:00 PM EDT 05/22/2025 2:00 PM EDT us Mychal Morris MD LAB BLOOD ORDERABLES Final Result [facility] [address] [place] [address] [phone] * POCT Creatinine GFR (05/12/2025 10:39 AM EDT) Only the most recent of2 resultswithin the time period is included. POCT Creatinine 1.1 0.5 - 1.4 mg/dL [facility] GFR POC 55 [facility] Comment:Chronic Kidney Disea se: Estimated GFR < 60 mL/min/1.08t0Dttxrl Kidney Disease: Estimated GFR < 15 mL/min/1.73m2 05/12/2025 10:3 9 AM EDT 05/12/2025 2:20 PM EDT Narrative [facility] - 05/12/2025 2:22 PM EDT [phone].[email or web address] us Generic External Data Provider LAB POINT OF CARE TEST DOCKED DEVICE ORDERABLES Final Result [facility] [address] [place] [phone] * CTA Chest PE Protocal (05/12/2025 10:36 AM EDT) Anatomical Region Laterality Modality Body, Chest Computed Tomogra phy 05/12/2025 10:3 6 AM EDT Narrative 05/12/2025 11:22 AM EDT [address] [address] [address] Scan Report Signed Patient: Elaine Rodas MR#: [id number] : 1970 Acct:[id number] Age/Sex: 54 / F ADM Date: 05/12/25 Loc: HO.CT Attending Dr: Amy Zimmerman NP Ordering Physician: Amy Zimmerman NP Date of Service: 05/12/25 Procedure(s): CT angio chest PE protocol Accession Number(s): [id number] cc: Mychal Long MD; Amy Zimmerman NP Report Number: [id number]: Total DLP = 150.00 mGy-cm Reason for [...] 05/12/25 1119 DD/ 1036 TD/TT: 05/12/25 1100 Core Winder: Procedure Note Donotjacobointerpreter, Image - 05/12/[address] [address] [address] Scan Report Signed Patient: Sebas Rodas#: [id number] : 1970Acct:[id number] Age/Sex: 54 / FADM Date: 05/12/25 Loc: HO.CT Attending Dr: Amy Zimmerman NP Ordering Physician: Amy Zimmerman NP Date of Service: 05/12/25 Procedure(s): CT angio chest PE protocol Accession Number(s): [id number] cc: Mychal Long MD; Amy Zimmerman NP Report Number: [id number]: Total DLP = 150.00 mGy-cm Reason for [...] 05/12/25 1119 DD/ 1036 TD/TT: 05/12/25 1100 Core Winder: [facility] External Provider IMG CT PROCEDURES Final Result * XR Chest 2 Views (03/23/2025 2:47 PM EDT) Anatomical Region Laterality Modality Chest Radiographic Hilda ging 03/23/2025 2:47 PM EDT Narrative 03/23/2025 3:15 PM EDT [address] [address] XRay Report Signed Patient: Elaine Rodas MR#: [id number] : 1970 Acct:[id number] Age/Sex: 54 / F ADM Date: 03/23/25 Loc: CHAPARRITA Attending Dr: Amy Zimmerman PELOTA MAKER Ordering Physician: Amy Zimmerman NP Date of Service: 03/23/25 Procedure(s): XR chest 2V Accession Number(s): [id number] cc: Mychal Long MD; Amy Zimmerman PELOTA MAKER EXAMINATION: XR CHEST CLINICAL INFORMATION: J90 - [...] 03/23/25 1512 DD/ 1447 TD/TT: 03/23/25 1501 Core Winder: Procedure Note Donotuseinterpreter, Image - 03/23/2025 [place] [address] XRay Report Signed Patient: Elaine RodasMR#: [id number] : 1970Acct:[id number] Age/Sex: 54 / FADM Date: 03/23/25 Loc: HO.TAD Attending Dr: Amy Zimmerman NP Ordering Physician: Amy Zimmerman NP Date of Service: 03/23/25 Procedure(s): XR chest 2V Accession Number(s): [id number] cc: Mychal Long MD; Amy Zimmerman NP [...] 03/23/25 1512 DD/ 1447 TD/TT: 03/23/25 1501 Core Winder: [facility] External Provider IMG XR PROCEDURES Final Result * High Sensitivity Troponin I (03/17/2025 7:24 PM EDT) Only the most recent of2 resultswithin the time period is included. [facility] TROPONIN I HIGH SENSITIVITY <2.7 <3.5 - 17.0 ng/L [facility] Comment:The [place] high sens itivity Troponin-I results should beused in conjunction with other diagnostic information suchas ECG, clinical observations and information, and patientsymptoms to aid in the diagnosis of [place]. 03/17/2025 7:24 PM EDT 03/17/2025 7:27 PM EDT Generic External Data Provider LAB BLOOD ORDERAB LES Final Result [facility] [address] [place] [phone] * (ABNORMAL) CBC auto differential (03/17/2025 6:42 PM EDT) White Blood Count 8.9 4.8 - 10.8 X10*3/uL [facility] Red Blood Count 4.08(L) 4.20 - 5.50 X10*6/uL [facility] Hemoglobin 11.9(L) 12.0 - 16.0 g/dl [facility] Hematocrit 34.7(L) 37.0 - 47.0 % [facility] Mean Corpuscular Volume 85.0 80.0 - 98.0 fL [facility] Mean Corpuscular Hemoglobin 29.2 27.0 - 33.0 pg [facility] Mean Corpuscular HGB Conc 34.3 31.0 - 35.0 g/dl [facility] Red Cell Distribution Width 12.9 11.0 - 16.0 % [facility] Platelet Count 276 160 - 400 X10*3/uL [facility] Mean Platelet Volume 9.0(L) 9.4 - 12.3 fL [facility] Neutrophils Percent Auto 46.0 45 - 73 % [facility] Imm Gran Pct Auto 0.1 0.0 - 0.4 % [facility] Lymphocytes Percent Auto 31.5 20 - 40 % [facility] Monocytes Percent Auto 4.0 2 - 11 % [facility] Eosinophils Percent Auto 17.8(H) 0 - 4 % [facility] Basophils Percent Auto 0.6 0 - 2 % [facility] NRBC Pct Auto 0.0 0.0 - 0.2 /100WBC [facility] Neutrophils Absolute Auto 4.1 2.0 - 8.3 x10*3/uL [facility] Imm Gran Abs Auto 0.01 0.00 - 0.03 X10*3/uL [facility] Lymphocytes Absolute Auto 2.8 1.2 - 4.9 X10*3/uL [facility] Monocytes Absolute Auto 0.4 0.1 - 1.2 X10*3/uL [facility] Eosinophils Absolute Auto 1.6(H) 0.0 - 0.4 X10*3/uL [facility] Basophils Absolute Auto 0.1 0.0 - 0.2 X10*3/uL [facility] NRBC Abs Auto 0.000 0.0 - 0.012 X10*3/uL [facility] 03/17/2025 6:42 PM EDT 03/17/2025 6:45 PM EDT Generic External Data Provider LAB BLOOD ORDERAB LES Final Result Performing Organization Address [facility]/ZIP Co de Phone Number [facility] [address] [place] [phone] * B Type Natriuretic Peptide (BNP) (03/17/2025 6:42 PM EDT) [facility] B Type Natriuretic Peptide 11 <100 pg/mL [facility] 03/17/2025 6:42 PM EDT 03/17/2025 6:45 PM EDT Generic External Data Provider LAB BLOOD ORDERAB LES Final Result Performing Organization Address [facility] de Phone Number [facility] [address] [place] [phone] * (ABNORMAL) Comprehensive Metabolic Panel (03/17/2025 6:42 PM EDT) [facility] Sodium 141 135 - 145 mmol/L [facility] Potassium 3.7 3.3 - 5.1 mmol/L [facility] Chloride 109(H) 96 - 108 mmol/L [facility] Carbon Dioxide 23 22 - 29 mmol/L [facility] Anion Gap 13 12 - 20 [facility] Urea Nitrogen (BUN) 9 9 - 16 mg/dL [facility] Creatinine, Serum 1.03 0.5 - 1.4 mg/dL [facility] Creatinine Clr Calc Pharmacy 69.1 [facility] Comment:Provided height and weight: 160.02 cm,96.7 kg.eGFR (calculated from the MDRD study equation) and eCrCl(calculated from the Cockcroft-Gault equation) are based ondifferent parameters and may not yield comparable results.If eCrCl result is absurd, please check patient'sheight/weight. Estimated Glomerular Filt Rate 56 [facility] Comment:Chronic Kidney Disea se: Estimated GFR < 60 mL/min/1.80e5Ruzlvh Kidney Disease: Estimated GFR < 15 mL/min/1.73m2 Glucose 137(H) 60 - 115 mg/dL [facility] Calcium 9.1 8.4 - 10.2 mg/dL [facility] Bilirubin, Total 0.2 0.0 - 1.0 mg/dL [facility] Aspartate Amino Transferase 18 5 - 31 U/L [facility] Alanine Aminotransferase 12 0 - 31 U/L [facility] Total Protein 7.2 6.5 - 8.0 g/dL [facility] Albumin Level 3.9 3.5 - 5.0 g/dL [facility] Alkaline Phosphatase 106 39 - 117 U/L [facility] 03/17/2025 6:42 PM EDT 03/17/2025 6:45 PM EDT us Generic External Data Provider LAB BLOOD ORDERAB LES Final Result Performing Organization Address [facility] Co de Phone Number [facility] [address] [place] [phone] * Angiotensin -1- Converting Enzyme (03/17/2025 2:07 PM EDT) Angiotensin Converting Enzyme 37.3 9 - 67 U/L [facility] Comment:THIS TEST WAS PERFOR MED AT:[id number] [place] [address]VBFMFMPANSON CALVILLO MD,PHD 03/17/2025 2:07 PM EDT 03/17/2025 2:07 PM EDT us Generic External Data Provider LAB BLOOD ORDERAB LES Final Result [facility] [address] [place] [phone] * MAURICE Screen,IFA, with Reflex to Titer and Pattern (03/17/2025 2:07 PM EDT) Anti Nuclear Antibody Screen NEGATIVE NEGATIVE [facility] Comment:MAURICE IFA is a first [...] clinicallysuspected inflammatory myopathies.AC-0: NegativeInternational Consensus on MAURICE Patterns(https://doi.org/10.1515/wduu-4124-6549)For additional information, please refer tohttp://education.Azendoo/faq/NXG188(This link is being provided for informational/educational purposes only.)THIS TEST WAS PERFORMED AT:[employer] [place] [id number] PRESSLEY MD MAURICE Titer [facility] MAURICE Pattern [facility] MAURICE TITER 2 (REF LAB) [facility] MAURICE Pattern 2 [facility] MAURICE TITER 3 [facility] MAURICE PATTERN 3 [facility] 03/17/2025 2:07 PM EDT 03/17/2025 2:07 PM EDT us Generic External Data Provider LAB BLOOD ORDERAB LES Final Result [facility] [address] [place] [phone] * CT Chest w/ Contrast (03/17/2025 1:46 PM EDT) Anatomical Region Laterality Modality Body, Chest Computed Tomogra phy 03/17/2025 1:46 PM EDT Narrative 03/17/2025 2:19 PM EDT [place] [address] CT Scan Report Signed Patient: Elaine Rodas MR#: [id number] : 1970 Acct:[id number] Age/Sex: 54 / F ADM Date: 03/17/25 Loc: HO.CT Attending Dr: Amy Zimmerman NP Ordering Physician: Amy Zimmerman NP Date of Service: 03/17/25 Procedure(s): CT chest w IV con Accession Number(s): [id number] cc: Mychal Long MD; Amy Zimmerman NP Report Number: [id number]: Total DLP = 344.00 mGy-cm EXAMINATION: CT [...] reconstruction technique DLP: 344 mGy centimeter. FINDINGS: THERMODYNAMIC PHYSICIST: Patient's large body habitus. LUNGS: Linear attenuation [...] atelectasis in the lung bases Communicated via tiger connect to nurse practitioner Amy Zimmerman on March 17, 2025 at 2:16 PM. Fleischner guidelines were followed. Electronically signed by: Ty Strong MD 03/17/2025 02:16 PM EDT RP Dictated By: Ty Olson MD Signed By: <Electronically signed by Ty Contreras MD in OV> 03/17/25 1416 DD/ 1346 TD/TT: 03/17/25 1403 Core Winder: Procedure Note Donotuseinterpreter, Image - 03/17/[address] [place] [address] [address] Scan Report Signed Patient: Sebas Rodas#: [id number] : 1970Acct:[id number] Age/Sex: 54 / FADM Date: 03/17/25 Loc: HO.CT Attending Dr: Amy Zimmerman NP Ordering Physician: Amy Zimmerman NP Date of Service: 03/17/25 Procedure(s): CT chest w IV con Accession Number(s): [id number] cc: Mychal Long MD; Amy Zimmerman NP Report Number: [id number]: Total DLP = 344.00 mGy-cm EXAMINATION: CT [...] reconstruction technique DLP: 344 mGy centimeter. FINDINGS: THERMODYNAMIC PHYSICIST: Patient's large body habitus. LUNGS: Linear attenuation [...] atelectasis in the lung bases Communicated via MapMyID to nurse practitioner Amy Zimmerman on March 17, 2025 at 2:16 PM. Fleischner guidelines were followed. Electronically signed by: Ty Strong MD 03/17/2025 02:16 PM EDT Dictated By: Ty Olson MD Signed By: <Electronically signed by Ty Contreras MDin OV> 03/17/25 1416 DD/ 1346 TD/TT: 03/17/25 1403 Core Winder: [facility] External Provider IMG CT PROCEDURES Final Result * Hepatitis C Ab (11/05/2024 3:21 PM EST) Hepatitis C Antibody Nonreactive Nonreactive [facility] Comment:Antibodies to HCV no t detected; does not exclude early acuteHCV infection. 11/05/2024 3:21 PM EST 11/05/2024 3:21 PM EST Generic External Data Provider LAB BLOOD ORDERAB LES Final Result Performing Organization Address [facility]/ZIP Co de Phone Number [facility] [facility] [address] [place] [address] [phone] * HIV-1/2 Antigen and Antibodies, Fourth Generation, with Reflexes (11/05/2024 3:21 PM EST) HIV AB/AG Nonreactive Nonreactive [facility] Comment:HIV-1 p24 Ag and/or HIV-1/HIV-2 Ab not detected.A test result that is nonreactive does not exclude thepossibility of exposure to or infection with HIV-1 and/orHIV-2. Nonreactive results in this assay for individualswith prior exposure to HIV-1 and/or HIV-2 may be due toantigen and antibody levels that are below the limit ofdetection of this assay.The [employer] HIV Ag/Ab Combo assay result andsupplemental assay results should be interpreted inconjunction with the patient's clinical presentation,history and other laboratory results. If the results areinconsistent with clinical evidence, additional testing issuggested to confirm the result. 11/05/2024 3:21 PM EST 11/05/2024 3:21 PM EST Generic External Data Provider LAB BLOOD ORDERAB LES Final Result Performing Organization Address [facility]/ZIP Co de Phone Number [facility] [address] [place] [phone] * BI Mammogram Screening Tomosynthesis Bilateral (10/29/2024 12:58 PM EST) Anatomical Region Laterality Modality Breast Bilateral Mammography 10/29/2024 12:5 8 PM EST Narrative 11/04/2024 12:41 PM EST [facility] [address] [place] [address] Mammography Report Signed Patient: Elaine Rodas MR#: [id number] : 1970 Acct:[id number] Age/Sex: 53 / F ADM Date: 10/29/24 Loc: HO.MAMMO Attending Dr: Mychal Long MD Ordering Physician: Syed Coreas MD Results: 1Negativ e Date of Service: 10/29/24 Follow Up: 1 Year From Orig inal Mammogram Procedure(s): MM tomosynthesis screening BI Accession Number(s): [id number] cc: Mychal Long MD; Syed Coreas MD [...] 11/04/24 1238 DD/ 1258 TD/TT: 10/29/24 1315 Core Winder: Procedure Note Donotuseinterpreter, Image - 11/04/2024 [facility] [address] [place] [address] Mammography Report Signed Patient: Elaine RodasMR#: [id number] : 1970Acct:[id number] Age/Sex: 53 / FADM Date: 10/29/24 Loc: CHASITY Attending Dr: Mychal Long MD Ordering Physician: Syed Coreas MDResults: 1Negativ e Date of Service: 10/29/24Follow Up: 1 Year From Orig inal Mammogram Procedure(s): MM tomosynthesis screening BI Accession Number(s): [id number] cc: Mychal Long MD; Syed Coreas MD [...] 11/04/24 1238 DD/ 1258 TD/TT: 10/29/24 1315 Core Winder: us [facility] External Provider IMG BI PROCEDURES Final Result * HPV mRNA E6/E7 w/Reflex to HPV Genotypes 16, 18/45 (08/23/2023 2:22 PM EST) HPV nRNA E6/E7 Not Detected Not Detected [facility] Comment:Methodology: Transcr iption-Mediated AmplificationThis assay detects E6/E7 viral messenger RNA (mRNA) from 14high-risk HPV types (16,18,31,33,35,39,45,51,52,56,58,59,66,68).Cervical sources are required for HPV testing.If a vaginal source from a patient who has had atotal hysterectomy with removal of cervix wassubmitted, please contact the testing laboratoryfor alternative testing options.For additional information, please refer tohttp://education.[employer]/faq/WMX436d0(This link if provided for information/educational purposes only.)THIS TEST WAS PERFORMED AT:[facility] [facility] [place] [phone] PRESSLEY MD HPV mRNA E6/E7 TNP [facility] HPV 16 RNA TNP [facility] HPV 18/45 RNA [facility] 08/23/2023 2:22 PM EST 08/24/2023 9:35 AM EST us Cecily Schwab [facility] CYTOLOGY ORDERABLES F inal Result [facility] [address] [place] [address] [phone] * Pap Smear (08/23/2023 2:22 PM EST) Swab Cervix uteri structure / Unknown 08/23/2023 2:22 PM EST 08/24/2023 9:35 AM EST Narrative [facility] - 09/04/2023 1:23 PM EST ----- ------- Name: Elaine Rodas Age/Sex: 52/F : 1970 Unit#: [id number] Attend Dr: Re08/23/23 Status: PRE [facility] Disch: ----- ------- SPEC : [id number] RECD: 08/24/23 STATUS: RICHARD SCHAEFER NUM: [id number] CHAPIN: 08/23/23 [facility] DR: CECILY SCHWAB [facility] ENTERED: 08/24/23 SP TYPE: Pap Smr OTHR DR: ORDERED: Pap Smear Interpretation Satisfactory for evaluation. No endocervical cells seen. Cytolysis noted. Negative for intraepithelial lesion or malignancy. HPV mRNA E6/E7: NOT DETECTED This assay detects E6/E7 viral messenger RNA (mRNA) from 14 high-risk HPV types (16, 18, 31, 33, 35, 39, 45, 51, 52, 56, 58, 59, 66, 68) HPV testing performed by [facility] [place], [place]. See reference laboratory portion of the EMR for entire report. Clinical Information LMP: Postmenopausal Previous PAP test: Unknown date/findings Other history: Abnormal bleeding Material Received ThinPrep-Cervical ----- ------- Signed (signature on file) NATHAN Medrano (ASC) 09/04/23 1323 ----- ------- END OF REPORT Cecily Tonie CN LAB CYTOLOGY ORDERABLES F inal Result [facility] [address] [place] [address] [phone] * Hm Colonoscopy (08/30/2022) Colonoscopy Normal [...] factors. LDL-C is now calculated using the Mina-Joseph calculation, which is a validated novel method providing better accuracy than the Friedewald equation in the estimation of LDL-C. Mina SS et al. ASHUTOSH. 2013;310(19): 9568-7060 (http://education.[employer].com/faq/XII640) Chol/HDLC Ratio 3.4 <5.0 (calc) [facility] 06/17/2020 3:00 PM EDT Mychal Morris MD LAB BLOOD ORDERABLES Final Result [facility] [address] from Last 3 Months or Most Recently Relevant to Health Maintenance Insurance [facility] C3 Care Teams Timber Management Technician Relationship Specialty Start Date End Date Mychal Fields MD [address] [place], [place] PCP - General Internal Medicine 04/30/14 Hima Fam FNP [address] [place], [place] Nurse Practitioner Family Medicine 08/01/23 Yaneth Dotson, ALAN [address] [place] [address] Registered Nurse Family Medicine 02/24/25 Mckenzie Silverio 02/24/25
--- OUTSIDE RECORDS SUMMARY | 2025-06-08 13:57 | XMS_ITS ---
Author Name [facility] Organization Unknown History of Medication Use Medication Directions Dispensed Refills Start Date End Date Stat us famotidine (PEPCID) 40 mg tablet Take 1 tablet (40 mg total) by mouth at bedtime. 05/22/2025 active fluticasone propionate (FLONASE) 50 mcg/actuation nasal spray SHAKE BEFORE FIRST USE PRIME AFTER USE CLEAN TIP 1 SPRAY INTO EACH NOSTRIL TWICE A DAY 01/16/2025 active traMADoL (ULTRAM) 50 mg tablet Take 1 tablet (50 mg total) by mouth 3 (three) times a day if needed. 01/16/2025 active amLODIPine (NORVASC) 10 mg tablet Take 1 tablet (10 mg total) by mouth 1 (one) time each day. 11/11/2024 active lidocaine (LIDODERM) 5 % patch 1 patch 1 (one) time each day. 06/09/2024 active cholecalciferol (VITAMIN D-3) 50 mcg (2,000 unit) tablet Take 1 tablet (2,000 Units total) by mouth 1 (one) time each day. 04/04/2024 active minoxidiL (LONITEN) 2.5 mg tablet Take 1 tablet (2.5 mg total) by mouth daily. 12/21/2023 active clonazePAM (KlonoPIN) 1 mg tablet Take 1 tablet (1 mg total) by mouth 1 (one) time each day. active Dexilant [address] capsule Take 1 capsule (60 mg total) by mouth 1 (one) time each day. active fluticasone furoate-vilanteroL (Breo Ellipta) 100-25 mcg/dose inhaler Inhale by mouth 1 (one) time each day. active hydrOXYzine HCL (ATARAX) 25 mg tablet 1 tablet (25 mg total) 1 (one) time. active losartan (COZAAR) 100 mg tablet Take 1 tablet (100 mg total) by mouth 1 (one) time each day. active Ventolin HFA 90 mcg/actuation inhaler INHALE 2 PUFFS EVERY 4 HOURS NEEDED FOR FOR DYSPNEA active zolpidem (AMBIEN) 5 mg tablet Take 1 tablet (5 mg total) by mouth at bedtime as needed for sleep. 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
--- OUTSIDE RECORDS SUMMARY | 2025-06-08 13:57 | XMS_ITS | Encounter Summary ---
Author Organization [employer] Address [address] [place] [address] 7[address] [place] [address] Care Team Providers Care Cafeteria Manager Name Role Phone Mychal Fields MD Primary Care Provide r Hima Fam Unavailable Unavailable Yaneth Dotson RN Unavailable [phone] Mckenzie Silverio Unavailable Reason for Visit * Reason Onset Date Comments PRE OP 11/10/2024 Encounter Details Date Type Department Care Team ([facility] st Contact Info) Description 11/10/2024 Telephone [facility] [address] [place], [place] [phone] Mychal Fields MD [address] [place], [place] [phone] PRE OP Social History Tobacco Use Types [...] No Surgeon's name: Dino Caruso Facility name: [facility] Surgeon's office number: [phone] Surgeon's office fax number: [phone] Contact name (person you spoke with): Karon [...] Description 07/24/2025 2:00 PM EST Office Visit [address] [address] Manjeet Deluca MD [address] [place] [address] 08/18/2025 2:15 PM EST Office Visit [address] [address] Mychal Fields MD [address] [place] [address] documented as of this encounter Visit Diagnoses Not on filedocumented in this encounter Additional Health Concerns Assessment Noted Time PHQ-9 Depression Total Score: 6 09/16/19 25 10:06 AM EST documented as of this encounter Care Teams Cafeteria Manager Relationship Specialty Start Date End Date Mychal Fields MD [address] [place] [phone] PCP - General Internal Medicine 04/30/14 Hima Fam FNP [address] [place] [address] Nurse Practitioner Family Medicine 08/01/23 Yaneth Dotson, RN [address] [place] [address] Registered Nurse Family Medicine 02/24/25 Mckenzie Silverio 02/24/25 [employer] 02/13/25 03/29/25 documented as of this encounter
--- OUTSIDE RECORDS SUMMARY | 2025-06-08 13:57 | XMS_ITS | Encounter Summary ---
Author Organization [employer] Address [address] [facility] 7t [place] [address] Care Team Providers Care Web Applications Architect Name Role Phone Mychal Fields MD Primary Care Provide r Hima Fam Unavailable Unavailable Yaneth Dotson RN Unavailable [phone] Mckenzie Silverio Unavailable Reason for Visit * Reason Comments Med Refill Encounter Details Date Type Department Care Team (Late st Contact Info) Description 10/06/[address] [facility] [address] [place], [place] [phone] Mychal Fields MD [address] [place] [address] Anxiety and depression Social History Tobacco Use [...] the past 12 months, has t he [employer] land investment, gas, oil or water company threatened to [...] EST Office Visit [facility] [address] [place] [address] Manjeet Deluca MD [address] [place] [address] 08/18/2025 2:15 PM EST Office Visit [facility] [address] [place] [address] Mychal Fields MD [address] [place] [address] documented as of this encounter Visit Diagnoses Diagnosis Anxiety and depression documented in this encounter Additional Health Concerns Assessment Noted Time PHQ-9 Depression Total Score: 6 09/16/19 25 10:06 AM EST documented as of this encounter Care Teams Web Applications Architect Relationship Specialty Start Date End Date Mychal Fields MD [address] [place] [address] PCP - General Internal Medicine 04/30/14 Hima Fam FNP [address] [place] [address] Nurse Practitioner Family Medicine 08/01/23 Yaneth Dotson RN [address] [place] [address] Registered Nurse Family Medicine 02/24/25 Mckenzie Silverio 02/24/25 [employer] 02/13/25 03/29/25 documented as of this encounter
--- OUTSIDE RECORDS SUMMARY | 2025-06-08 13:57 | XMS_ITS | Encounter Summary ---
Author Organization [employer] Address [address] [place] [address] 7t [place] [address] Care Team Providers Care Biometry Teacher Name Role Phone Mychal Fields MD Primary Care Provide r Hima Fam Unavailable Unavailable Yaneth Dotson RN Unavailable [phone] Mckenzie Silverio Unavailable Reason for Visit * Reason Comments Med Refill Encounter Details Date Type Department Care Team (Late st Contact Info) Description 07/27/2023 Refill [facility] [address] [place], [place] [phone] Mychal Fileds MD [address] [place], [place] [phone] Social History Tobacco Use Types Packs/Day Years [...] Description 07/24/2025 2:00 PM EST Office Visit [facility] [address] [place] [address] Manjeet Deluca MD [address] [place] [address] 08/18/2025 2:15 PM EST Office Visit [facility] [address] [place] [address] Mychal Fields MD [address] [place] [address] documented as of this encounter Visit Diagnoses Not on filedocumented in this encounter Additional Health Concerns Assessment Noted Time PHQ-9 Depression Total Score: 0 05/10/20 23 10:38 AM EDT documented as of this encounter Care Teams Biometry Teacher Relationship Specialty Start Date End Date Mychal Fields MD [address] [place] [address] PCP - General Internal Medicine 04/30/14 Hima Fam FNP [address] [place] [address] Nurse Practitioner Family Medicine 08/01/23 Yaneth Dotson, ALAN [address] [facility] [place] [address] Registered Nurse Family Medicine 02/24/25 Mckenzie Silverio 02/24/25 [employer] 02/13/25 03/29/25 documented as of this encounter
--- OUTSIDE RECORDS SUMMARY | 2025-06-08 13:57 | XMS_ITS | Encounter Summary ---
Author Organization [employer] Address [address] [place] [address] 7t [place] [address] Care Team Providers Care Mason Tender Restoration Labor Name Role Phone Mychal Fields MD Primary Care Provide r Hima Fam Unavailable Unavailable Yaneth Dotson RN Unavailable [phone] Mckenzie Silverio Unavailable Encounter Details Date Type Department Care Team (Late st Contact Info) Description 04/24/2023 Orders Only [facility] [address] [place] [address] [phone] Zena Harley MD [address] [place] [address] [phone] Acquired clavicle deformity (Primary Dx) Social History [...] 07/24/2025 2:00 PM EST Office Visit [facility] [address] [place] [address] [phone] Manjeet Deluca MD [address] [place] [address] [phone] 08/18/2025 2:15 PM EST Office Visit [facility] [address] [place], [place] [phone] Mychal Fields MD [address] [place], [place] [phone] Scheduled Orders Name Type Priority Associated Diagnoses [...] PM EDT Narrative 05/14/2023 4:45 PM EDT [address] [address] XRay Report Signed Patient: Elaine Rodas MR#: [id number] : 1970 Acct:[id number] Age/Sex: 52 / F ADM Date: 05/14/23 Loc: HO.ED Attending Dr: Ordering Physician: Vee Castano NP Date of Service: 05/14/23 Procedure(s): XR chest 2V Accession Number(s): [id number] cc: Mychal Long MD; Vee Castano NP [...] signed by Lydia Oneal MD in OV> 05/14/231641 DD/ 162 TD/TT: Manager Express: DORITA Procedure Note Donotuseinterpreter, Image - 05/14/[address] [address] XRay Report Signed Patient: Elaine RodasMR#: [id number] : 1970Acct:[id number] Age/Sex: 52 / FADM Date: 05/14/23 Loc: .ED Attending Dr: Ordering Physician: Vee Castano NP Date of Service: 05/14/23 Procedure(s): XR chest 2V Accession Number(s): [id number] cc: Mychal Long MD; Vee Castano NP [...] signed by Lydia Oneal MD in OV> 05/14/231641 DD/ 1624 TD/TT: Manager Express: DORITA [facility] External Provider IMG XR PROCEDURES Edited Result - Final * XR Foot 3+ Views Right (05/10/2023 11:44 AM EDT) Anatomical Region Laterality Modality Lower Extremities, Foot Right Radiogra phic Imaging 05/10/2023 11:4 4 AM EDT Narrative 05/10/2023 12:08 PM EDT [address] [address] XRay Report Signed Patient: Elaine Rodas MR#: [id number] : 1970 Acct:[id number] Age/Sex: 52 / F ADM Date: 05/10/23 Loc: HOWILLISCX Attending Dr: Mychal Long MD Ordering Physician: Mychal Long MD Date of Service: 05/10/23 Procedure(s): XR foot RT min 3V Accession Number(s): [id number] cc: Mychal Long MD EXAMINATION: XR FOOT, [...] OV> 05/10/23 1205 DD/ 1144 TD/TT: Manager Express: YULISSA Procedure Note Donotuseinterpreter, Image - 05/10/[address] [address] XRay Report Signed Patient: Elaine RodasMR#: [id number] : 1970Acct:[id number] Age/Sex: 52 / FADM Date: 05/10/23 Loc: HOWILLISCX Attending Dr: Mychal Long MD Ordering Physician: Mychal Long MD Date of Service: 05/10/23 Procedure(s): XR foot RT min 3V Accession Number(s): [id number] cc: Mychal Long MD EXAMINATION: XR FOOT, [...] OV> 05/10/23 1205 DD/ 1144 TD/TT: Manager Express: YULISSA us Mychal Morris MD IMG XR PROCEDURES Fin al Result * FL Esophagus Barium Swallow w/Air (05/08/2023 10:19 AM EDT) Anatomical Region Laterality Modality Head, Neck Radiographic Hilda ging 05/08/2023 10:1 9 AM EDT Narrative 05/08/2023 4:35 PM EDT [place] [address] Fluoroscopy Report Signed Patient: Elaine Rodas MR#: [id number] : 1970 Acct:[id number] Age/Sex: 52 / F ADM Date: 05/08/23 Loc: HO.REYAY Attending Dr: Mychal Long MD Ordering Physician: Mychal Long MD Date of Service: 05/08/23 Procedure(s): FL barium swallow with air Accession Number(s): [id number] cc: Mychal Long MD EXAMINATION: XR FLUOROSCOPY [...] OV> 05/08/23 1632 DD/ 1019 TD/TT: Manager Express: Procedure Note Donotuseinterpreter, Image - 05/08/2023 [place] [address] Fluoroscopy Report Signed Patient: Elaine RodasMR#: [id number] : 1970Acct:[id number] Age/Sex: 52 / FADM Date: 05/08/23 Loc: HO.XRAY Attending Dr: Mychal Long MD Ordering Physician: Mychal Long MD Date of Service: 05/08/23 Procedure(s): FL barium swallow with air Accession Number(s): [id number] cc: Mychal Long MD EXAMINATION: XR FLUOROSCOPY [...] OV> 05/08/23 1632 DD/ 1019 TD/TT: Manager Express: us Mychal Morris MD IMG FLUOROSCOPY PROCE CECILIO Final Result documented in this encounter Visit Diagnoses Diagnosis 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 documented in this encounter Additional Health Concerns Assessment Noted Time PHQ-9 Depression Total Score: 8 02/09/20 23 11:04 AM EDT documented as of this encounter Care Teams Mason Tender Restoration Labor Relationship Specialty Start Date End Date Mychal Fields MD [address] [place] [address] PCP - General Internal Medicine 04/30/14 Hima Fam FNP [address] [place] [address] Nurse Practitioner Family Medicine 08/01/23 Yaneth Dotson RN [address] [place] [address] Registered Nurse Family Medicine 02/24/25 Mckenzie Silverio 02/24/25 [employer] 02/13/25 03/29/25 documented as of this encounter
--- OUTSIDE RECORDS SUMMARY | 2025-06-08 13:57 | XMS_ITS | Encounter Summary ---
Author Organization [employer] Address [address] [place] [address] 7t [place] [address] Care Team Providers Care Heel Dipper Name Role Phone Mychal Fields MD Primary Care Provide r Hima Fam Unavailable Unavailable Yaneth Dotson RN Unavailable [phone] Mckenzie Silverio Unavailable Encounter Details Date Type Department Care Team (Late st Contact Info) Description 06/11/2023 Orders Only [facility] [address] [place], [place] [phone] Veda Isabel LPN Social History Tobacco Use [...] 07/24/2025 2:00 PM EST Office Visit [facility] [address] [place] [address] Manjeet Deluca MD [address] [place] [address] 08/18/2025 2:15 PM EST Office Visit [facility] [address] [place] [address] [phone] Mychal Fields MD [address] [place] [address] [phone] documented as of this encounter Visit Diagnoses Not on filedocumented in this encounter Additional Health Concerns Assessment Noted Time PHQ-9 Depression Total Score: 0 05/10/20 23 10:38 AM EDT documented as of this encounter Care Teams Heel Dipper Relationship Specialty Start Date End Date Mychal Fields MD [address] [place] [address] [phone] PCP - General Internal Medicine 04/30/14 Hima Fam FNP [address] [place] [address] Nurse Practitioner Family Medicine 08/01/23 Yaneth Dotson, ALAN [address] [place] [address] Registered Nurse Family Medicine 02/24/25 Mckenzie Silverio 02/24/25 [employer] 02/13/25 03/29/25 documented as of this encounter
--- OUTSIDE RECORDS SUMMARY | 2025-06-08 13:57 | XMS_ITS | Encounter Summary ---
Author Organization [email or web address] Address [address] [place] [address] 7t [place] [address] Care Team Providers Care Button Attaching Machine Operator Name Role Phone Mychal Fields MD Primary Care Provide r Hima Fam Unavailable Unavailable Yaneth Dotson RN Unavailable Mckenzie Silverio Unavailable Reason for Visit * Reason Comments Med Refill Encounter Details Date Type Department Care Team (Late st Contact Info) Description 10/05/2022 Refill [facility] [address] [place] [address] Hima Fam FNP Anxiety state Social History [...] 2:00 PM EST Office Visit [facility] MED[facility] [address] [place] [address] Manjeet Deluca MD [address] [place] [address] 08/18/2025 2:15 PM EST Office Visit [facility]INE [address] [place] [phone] Mychal Fields MD [address] [place] [address] documented as of this encounter Visit Diagnoses Diagnosis Anxiety state Anxiety state, unspecified documented in this encounter Care Teams Button Attaching Machine Operator Relationship Specialty Start Date End Date Mychal Fields MD [address] [place] [address] PCP - General Internal Medicine 04/30/14 Hima Fam FNP [address] [place] [address] Nurse Practitioner Family Medicine 08/01/23 Yaneth Dotson, ALAN [address] [place] [address] Registered Nurse Family Medicine 02/24/25 Mckenzie Silverio 02/24/25 [employer] 02/13/25 03/29/25 documented as of this encounter
== END 2025-06-08 14:12 | disposition home or self-care (01) ==
LOC: HO.HPS 12:51
PROVIDERS: PCP Internal Medicine; Visit Provider Nurse Practitioner Family
DX: J90 Pleural effusion, not elsewhere classified (principal); J45.909 Unspecified asthma, uncomplicated; R59.0 Localized enlarged lymph nodes; F17.200 Nicotine dependence, unspecified, uncomplicated; R06.00 Dyspnea, unspecified; D72.10 Eosinophilia, unspecified
CPT/HCPCS: 99214

== ENCOUNTER 2025-06-08 12:50 | Outpatient (REF) | payer MEDICAID, SELFPAY ==
--- OUTSIDE RECORDS SUMMARY | 2025-06-08 16:04 | XMS_ITS | Clinical Summary ---
Author Organization [facility] [address] [facility] Address [address] [place] [address] Phone Care Team Providers Care Food And Beverage Operations Manager Name Role Phone Mychal Long MD [...] at bedtime as needed for sleep. Active Dexilant [address] capsule Take 1 capsule (60 mg total) by mouth 1 (one) time each day. Active famotidine (PEPCID) 40 mg tablet Take 1 tablet (40 mg total) by mouth at bedtime. 05/22/2025 Active doxycycline (MONODOX) 100 mg capsule Take 1 capsule (100 mg total) by mouth 2 (two) times a day for 7 days. Take with at least 8 ounces (large glass) of water, do not lie down for 30 minutes after 14 each 05/30/2025 06/06/20 25 Active Problems Problem Noted Date Diagnosed Date Pleuritic chest pain 06/01/2025 Assessment & Plan (06/01/2025 2:39 PM EDT): Ms. Rodas is a 54-year-old female who had a robotic thymectomy via subxiphoid approach on February 11, 2025. Postoperative pathology shows no evidence of malignancy and instead shows 2 benign thymic cysts. Right sided pleuritic nerve pain described by patient. She has trialed several medications that have not had much affect on her. Referral placed to a pain clinic. She is requesting the clinic in the [facility]. Patient may follow-up with us here in thoracic surgery on an as-needed basis going forward. 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 Clark is a 54-year-old female who had a [...] her lung cancer screening program here at [facility] with her LDCT due December 2025. Patient may follow-up with us here in thoracic surgery on an as-needed basis going forward. Resolved Problems Problem Noted Date Diagnosed Date Resolved Date Mediastinal mass 01/26/2025 02/26/2025 Mediastinal lymphadenopathy 01/26/2025 02/26/2025 Encounters Date Type Department Care Team Description 06/01/2025 11:00 AM EDT Office Visit Thoracic Surgery - [place] [address] [phone] Linda Ureña NP Thymic cyst (CMS/[facility] V24) (Primary Dx); Pleuritic chest pain 05/29/2025 8:26 PM EDT - 05/29/2025 10:17 PM EDT Emergency [facility] Emergency [address] [place] [phone] Macrina Valiente MD Positive D dimer (Primary Dx); Pleural effusion, bilateral; Ground glass opacity present on imaging of lung Discharge Disposition: Home or Self Care 05/29/2025 3:00 PM EDT Office Visit Pulmonology - [address] [phone] Rosy Rhodes MD Bilateral pleural effusion (Primary Dx); Chest pain on breathing 05/29/2025 Telephone Pulmonology [facility] [address] [place] [phone] Rosy Rhodes MD 05/01/2025 4:31 PM EDT - 05/01/2025 11:59 PM EDT Hospital Encounter [facility] Xray [address] [place] [address] Bilateral pleural effusion Discharge Disposition: Home or Self Care 05/01/2025 3:00 PM EDT Office Visit Pulmonology [facility] [address] [phone] Rosy Rhodes MD Bilateral pleural effusion (Primary Dx) 03/25/2025 Telephone Pulmonology [facility] [address] [phone] Kylie Simons [place] 03/24/2025 5:49 PM EDT - 03/24/2025 11:59 PM EDT Hospital Encounter [facility] Xray [address] [place] [address] Bilateral pleural effusion Discharge Disposition: Home or Self Care 03/24/2025 4:00 PM EDT [facility] [address] [phone] Rosy Rhodes MD Bilateral pleural effusion (Primary Dx); Thymic cyst ([facility] V24) from Last 3 Months Surgical History Surgery [...] Used Date Smoking Tobacco: Every Day Cigarettes 0.8 30.7 Started: 1994 Tobacco Cessation:Ready to Q uit: Not Asked; Counseling Given: Not Answered Alcohol Use Standard Drinks/Week Comments Not Currently 0 (1 standard drink = 0.6 oz pur e alcohol) Interpersonal Safety Answer Date Record ed Physical Abuse Unrecognized value 02/11/2025 Verbal Abuse Unrecognized value 02/11/2025 Comments No Sex and Gender Information Value Date Recorded Sex Assigned at Not on file Legal Sex Female 8:17 PM EST Gender Identity Not on file Sexual Orientation Not on file Obstetrics History Last Filed Vital Signs Vital Sign Reading Time Taken Comments Blood Pressure 128/81 06/01/2025 11:43 AM EDT Pulse 86 06/01/2025 11:43 AM EDT Temperature 36.5 C (97.7 F) 06/01/2025 11:43 AM EDT Respiratory Rate 14 06/01/2025 11:43 AM EDT Oxygen Saturation 99% 06/01/2025 11:43 AM EDT Inhaled Oxygen Concentration - - Weight 93.6 kg (206 lb 6.4 oz) 06/01/2025 11:43 AM EDT Height 160 cm (5' 3 ) 06/01/2025 11:43 AM EDT Body Mass Index 36.56 06/01/2025 11:43 AM EDT Plan of Treatment Upcoming Encounters Date Type Department Care Team (Late st Contact Info) Description 07/10/2025 3:00 PM EDT Office Visit Pulmonology - [address] [phone] Rosy Rhodes MD [address] [place] [phone] Health Maintenance Due Date Last Done Comments Breast Cancer Screening 1970 Colorectal Cancer Screening: Colonoscopy 1970 Hepatitis B Vaccines (1 of 3 - 19+ 3-dose series) 1989 Pneumococcal Vaccine: 50+ Years (2 of 2 - PCV) 12/27/2012 12/28/2011 Zoster Vaccines (1 of 2) 2020 Hepatitis C Screening 06/18/2024 Lung Cancer Screening (Low Dose CT) 06/18/2024 Social Influencers of Health Screening 06/18/2024 Depression Screening 09/10/2024 COVID-19 Vaccine ( season) 2025 06/20/2022, 05/17/2021 Influenza Vaccine (#1) 2025 , 09/08/2021, 06/09/2020, Additional history exists Cholesterol Screening (Lipid Panel) 06/17/2025 06/17/2020 Hypertension/CHF/CAD Annual BMP Blood Test 05/29/2026 05/29/2025, 05/22/2025, 03/17/2025, Additional history exists Cervical Cancer Screening: Pap Smear 08/23/2026 08/23/2023 DTaP,Tdap,and Td Vaccines (5 - Td or Tdap) 08/01/2032 08/01/2022, 11/16/2016, 11/27/2000, Additional history exists RSV Immunization Adult Patients (1 - 1-dose 75+ series) 2045 HIV Screening Completed 11/05/2024 HIB Vaccines Aged [...] Name Priority Date/Time Associated Diagnosis Comments CT ANGIO CHEST WO AND/OR W CONTRAST STAT 05/29/2025 8:42 PM EDT Positive D dimer CBC WITH AUTO DIFFERENTIAL Routine 05/29/2025 3:41 PM EDT Bilateral pleural effusion Chest pain on breathing BASIC METABOLIC PANEL Routine 05/29/2025 3:41 PM EDT Bilateral pleural effusion Chest pain on breathing CBC AND DIFFERENTIAL Routine 05/29/2025 3:41 PM EDT Bilateral pleural effusion Chest pain on breathing D-DIMER Routine 05/29/2025 3:41 PM EDT Bilateral pleural effusion Chest pain on breathing NON-GYNECOLOGIC CYTOLOGY Routine 05/05/2025 8:05 AM EDT Bilateral pleural effusion NON-GYNECOLOGIC CYTOLOGY Routine 05/05/2025 8:00 AM EDT Bilateral pleural effusion XR CHEST 2 VIEWS STAT 05/01/2025 4:36 PM EDT Bilateral pleural effusion MT THORACENTESIS PLEURAL SPACE NEEDLE/CATH ASPIRATION W IMAGING GUIDANCE Routine 05/01/2025 4:29 PM EDT Bilateral pleural effusion MT THORACENTESIS PLEURAL SPACE NEEDLE/CATH ASPIRATION W IMAGING [...] 05/01/2025 3:00 PM EDT Bilateral pleural effusion MT THORACENTESIS PLEURAL SPACE NEEDLE/CATH ASPIRATION W IMAGING [...] Bilateral pleural effusion EXTERNAL CT REPORT 03/17/2025 from Last 3 Months Results * CT Angio Chest wo and/or w Contrast (05/29/2025 8:42 PM EDT) Anatomical Region Laterality Modality Body Computed Tomogra phy 05/29/2025 9:25 PM EDT Impressions 05/29/2025 9:25 PM EDT 1. No evidence for pulmonary embolism. 2. Small bilateral pleural effusions. 3. Several small patchy nodular ground-glass airspace opacities bilaterally likely related to an infectious process. This document has been electronically signed by: Elena Burnette MD on 05/29/2025 21:25:46 Narrative 05/29/2025 9:25 PM EDT INDICATION: PE suspected, high prob CT angiography chest with contrast. 3D Postprocessing. Comparison: None provided Findings: The heart size is normal. RV/LV ratio is normal. Unremarkable thoracic aorta and great vessels. No aneurysm. No pulmonary artery filling defects. The visualized thyroid and mediastinum are unremarkable. No evidence for pulmonary embolism. Small bilateral pleural effusions. Several small patchy nodular ground-glass airspace opacities bilaterally likely related to an infectious process. The upper abdomen is unremarkable. The bones are intact. Procedure Note Elena Burnette MD - 05/29/2025 INDICATION: PE suspected, high prob CT angiography chest with contrast. 3D Postprocessing. Comparison: None provided Findings: The heart size is normal. RV/LV ratio is normal. Unremarkable thoracic aorta and great vessels. No aneurysm. No pulmonary artery filling defects. The visualized thyroid and mediastinum are unremarkable. No evidence for pulmonary embolism. Small bilateral pleural effusions. Several small patchy nodular ground-glass airspace opacities bilaterally likely related to an infectious process. The upper abdomen is unremarkable. The bones are intact. IMPRESSION: 1. No evidence for pulmonary embolism. 2. Small bilateral pleural effusions. 3. Several small patchy nodular ground-glass airspace opacities bilaterally likely related to an infectious process. This document has been electronically signed by: Elena Burnette MD on 05/29/2025 21:25:[address] PROCEDURES Final Result * (ABNORMAL) CBC auto differential (05/29/2025 3:41 PM EDT) [facility] Signature WBC 8.9 4.8 - 10.8 K/mcL LAB HEMETOLOGY METHOD 05/29/2025 4:16 PM EDT [facility] RBC 4.10 3.80 - 4.80 M/mcL LAB HEMETOLOGY METHOD 05/29/2025 4:16 PM EDT [facility] Hemoglobin 11.1(L) 11.5 - 16.0 g/dL LAB HEMETOLOGY METHOD 05/29/2025 4:16 PM EDT [facility] Hematocrit 34.2(L) 35.0 - 47.0 % LAB HEMETOLOGY METHOD 05/29/2025 4:16 PM EDT [facility] MCV 83.6 79.0 - 98.0 FL LAB HEMETOLOGY METHOD 05/29/2025 4:16 PM EDT [facility] MCH 27.1 27.0 - 32.0 pcg LAB HEMETOLOGY METHOD 05/29/2025 4:16 PM EDT [facility] MCHC 32.5 32.0 - 37.0 g/dL LAB HEMETOLOGY METHOD 05/29/2025 4:16 PM EDT [facility] RDW 14.0 11.0 - 15.0 % LAB HEMETOLOGY METHOD 05/29/2025 4:16 PM EDT [facility] Platelets 390 130 - 400 K/mcL LAB HEMETOLOGY METHOD 05/29/2025 4:16 PM EDT [facility] MPV 9.1 7.0 - 11.0 FL LAB HEMETOLOGY METHOD 05/29/2025 4:16 PM EDT [facility] NRBC 0.0 <1.0 % LAB HEMETOLOGY METHOD 05/29/2025 4:16 PM EDT [facility] NRBC Absolute 0.00 <0.10 K/mcL LAB HEMETOLOGY METHOD 05/29/2025 4:16 PM EDT [facility] Neutrophils Relative 58.6 % LAB HEMETOLOGY METHOD 05/29/2025 4:16 PM EDT [facility] Lymphocytes Relative 30.4 % LAB HEMETOLOGY METHOD 05/29/2025 4:16 PM EDT [facility] Monocytes Relative 4.4 % LAB HEMETOLOGY METHOD 05/29/2025 4:16 PM EDT [facility] Eosinophils Relative 5.5 % LAB HEMETOLOGY METHOD 05/29/2025 4:16 PM [facility] Basophils Relative 0.8 % LAB HEMETOLOGY METHOD 05/29/2025 4:16 PM [facility] Immature Granulocytes Relative 0.3 % LAB HEMETOLOGY METHOD 05/29/2025 4:16 PM [facility] Neutrophils Absolute 5.20 1.50 - 7.00 K/mcL LAB HEMETOLOGY METHOD 05/29/2025 4:16 PM [facility] Lymphocytes Absolute 2.70 1.00 - 5.00 K/mcL LAB HEMETOLOGY METHOD 05/29/2025 4:16 PM EDT [facility] Monocytes Absolute 0.39 0.20 - 1.00 K/mcL LAB HEMETOLOGY METHOD 05/29/2025 4:16 PM EDT [facility] Eosinophils Absolute 0.49 0.00 - 0.50 K/mcL LAB HEMETOLOGY METHOD 05/29/2025 4:16 PM [facility] Basophils Absolute 0.07 0.00 - 0.20 K/mcL LAB HEMETOLOGY METHOD 05/29/2025 4:16 PM EDT [facility] Immature Granulocytes Absolute 0.03 0.00 - 0.03 K/mcL LAB HEMETOLOGY METHOD 05/29/2025 4:16 PM EDT [facility] Blood Venous blood specimen / Unknown Venipuncture / Unknown 05/29/2025 3:41 PM EDT 05/29/2025 4:05 PM EDT Rosy Rhodes MD LAB BLOOD ORDERABLES Final Result Performing Organization Address [facility] Co de Phone Number [facility] [address] [place] [address], [place] [phone] * (ABNORMAL) D-Dimer (05/29/2025 3:41 PM EDT) Pathologist [facility] D-Dimer, Quant (D-DU) 3,062(H) <=230 ng/mL DDU LAB COAGULATION METHOD 05/29/2025 4:20 PM EDT [facility] Blood Venous blood specimen / Unknown Venipuncture / Unknown 05/29/2025 3:41 PM EDT 05/29/2025 4:05 PM EDT Narrative [facility] - 05/29/2025 4:20 PM EDT D-Dimer <230 ng/mL (D-Dimer units) is the threshold for exclusion of DVT/PE. D-Dimer may be elevated in: Critically ill, severely infected, trauma patients, DIC, acute CVA, acute MD, unstable angina, AF, old age, , and smoking. D-Dimer may be decreased with: Initiation of heparin therapy and oral anticoagulants. Rosy Rhodes MD LAB BLOOD ORDERABLES Final Result Performing Organization Address [facility]/ZIP Co de Phone Number [facility] [address] [place] [address], [place] [phone] * (ABNORMAL) Basic metabolic panel (05/29/2025 3:41 PM EDT) Pathologist [facility] Sodium 138 133 - 145 mmol/L LAB CHEMISTRY METHOD 05/29/2025 4:31 PM [facility] Potassium 4.0 3.5 - 5.5 mmol/L LAB CHEMISTRY METHOD 05/29/2025 4:31 PM [facility] Chloride 106 96 - 110 mmol/L LAB CHEMISTRY METHOD 05/29/2025 4:31 PM [facility] CO2 28 21 - 32 mmol/L LAB CHEMISTRY METHOD 05/29/2025 4:31 PM [facility] Anion Gap 4 3 - 11 LAB CHEMISTRY METHOD 05/29/2025 4:31 PM [facility] Glucose 108(H) 70 - 100 mg/dL LAB CHEMISTRY METHOD 05/29/2025 4:31 PM [facility] BUN 9 5 - 25 mg/dL LAB CHEMISTRY METHOD 05/29/2025 4:31 PM [facility] Creatinine 0.86 0.50 - 1.10 mg/dL LAB CHEMISTRY METHOD 05/29/2025 4:31 PM [facility] eGFR 80 >=60 mL/min/1. 73m2 LAB CHEMISTRY METHOD 05/29/2025 4:31 PM [facility] Comment:Calculation based on the Chronic Kidney Disease Epidemiology Collaboration (CKD-EPI) equation refit without adjustment for race. BUN/Creatinine Ratio 10.5 LAB CHEMISTRY METHOD 05/29/2025 4:31 PM [facility] Calcium 9.1 8.5 - 10.5 mg/dL LAB CHEMISTRY METHOD 05/29/2025 4:31 PM [facility] Blood Venous blood specimen / Unknown Venipuncture / Unknown 05/29/2025 3:41 PM EDT 05/29/2025 4:05 PM EDT us Rosy Rhodes MD LAB BLOOD ORDERABLES Final Result [facility] [address] [place] [address], [place] [phone] * Non-gynecologic cytology (05/05/2025 8:05 AM EDT) Only the most recent of3 resultswithin the time period is included. Final Diagnosis Pleural Fluid, Left, Thoracentesis, (ThinPrep, cell block): No malignant cells identified Eosinophils, lymphocytes and histiocytes present 05/05/2025 8:05 AM EDT [facility] Specimen A Adequacy Satisfactory for evaluation 05/05/2025 8:05 AM EDT [facility] Gross Description A. Pleural Cavity, Left, Pleural Cavity Left: Received 400ml of dark cloudy fluid 1 thin prep, 1 cell block Formalin fixation 7.5 put in formalin at 1330 05/05/2025 8:05 AM EDT [facility] Disclaimer Unless otherwise specified, all tissue is 10% NB formalin fixed and paraffin embedded. Technical cytopathology services provided by [facility], at [address] [place] [address] (CLIA # [id number]/Jose Paula MD, Academic Affairs Vice President.) 05/05/2025 8:05 AM EDT [facility] Pleural Fluid Structure of left pleural cavity / Unknown 05/04/2025 1:00 PM EDT us Rosy Rhodes MD LAB CYTOLOGY ORDERABLES Fi nal Result [facility] [address] [place] [address], [place] [phone] * XR Chest 2 Views (05/01/2025 4:36 PM EDT) Only the most recent of2 [...] Signed Date: 05/01/2025 16:41 ET Workstation ID: [id number] Transcribed By: Self Edit Transcribed Date: 05/01/2025 [...] Signed Date: 05/01/2025 16:41 ET Workstation ID: [id number] Transcribed By: Self Edit Transcribed Date: 05/01/2025 16:41 ET us Rosy Rhodes MD IMG XR PROCEDURES Final Re sult * MT THORACENTESIS PLEURAL SPACE NEEDLE/CATH ASPIRATION W IMAGING GUIDANCE (05/01/2025 4:29 PM EDT) Narrative Rosy Rhodes MD - 05/01/2025 4:29 PM EDT Rosy Rhodes MD 05/01/2025 4:49 PM Thoracentesis Date/Time: 05/01/2025 4:29 PM Performed by: Rosy Rhodes MD Authorized by: Rosy Rhodes MD Consent: Consent obtained: Verbal Consent given by: Patient Risks discussed: Bleeding, pneumothorax, pain and infection Alternatives discussed: No treatment Sheridan protocol: Procedure explained and questions answered to [...] midscapular line Intercostal space: 7th Puncture method: Afva-xhw-kcipua catheter Ultrasound guidance: yes Indwelling catheter placed: no Needle gauge: 20 Catheter size: 8 Fr Number of attempts: 1 Fluid characteristics: serous. Post-procedure details: Post-procedure chest x-ray: pending. Procedure completion: Tolerated well, no immediate complications Comments: 350 mL removed, stopped for no further fluid us Rosy Rhodes MD IN CLINIC/BEDSIDE ORDERABL ES Final Result * MT THORACENTESIS PLEURAL SPACE NEEDLE/CATH ASPIRATION W IMAGING GUIDANCE (05/01/2025 4:28 PM EDT) Rosy Nuno MD - 05/01/2025 4:28 PM EDT Rosy Rhodes MD 05/01/2025 4:49 PM Thoracentesis Date/Time: 05/01/2025 4:28 PM Performed by: Rosy Rhodes MD Authorized by: Rosy Rhodes MD Consent: Consent obtained: Verbal Consent given by: Patient Risks discussed: Bleeding, infection, pain and pneumothorax Alternatives discussed: No treatment Sheridan protocol: Procedure explained and questions answered to [...] midscapular line Intercostal space: 7th Puncture method: [id number] catheter Ultrasound guidance: yes Indwelling catheter placed: [...] LAB HEMETOLOGY METHOD 05/01/2025 6:48 PM EDT [facility] Body Fluid RBC 4,000 /mm3 LAB HEMETOLOGY METHOD 05/01/2025 6:48 PM EDT [facility] Body Fluid Color Yellow 05/01/2025 6:48 PM EDT [facility] Body Fluid Clarity Cloudy 05/01/2025 6:48 PM EDT [facility] Body Fluid Source Pleural 05/01/2025 6:48 PM EDT [facility] Comment:Left Pleural Fluid Structure of left pleural cavity / Unknown 05/01/2025 3:00 PM EDT 05/01/2025 4:48 PM EDT Narrative [facility] - 05/01/2025 6:48 PM EDT No reference ranges have been established for body fluids. Clinical correlation recommended. Rosy Rhodes MD LAB BODY FLUIDS AND STOOLS ORDERABLES Final Result [facility] [address] [place] [address], [place] [phone] * Culture body fluid with gram stain (05/01/2025 3:00 PM EDT) Only the most recent of3 resultswithin the time period is included. Fluid Culture No growth at 3 days LAB MICROBIOLOGY METHOD 05/04/2025 11:15 AM EDT [facility] Gram Stain Result No polymorphonuclear leukocytes, No epithelial cells, and No organisms noted 05/04/2025 11:15 AM EDT [facility] Pleural Fluid Structure of left pleural cavity / Unknown Non-blood Collection / Unknown 05/01/2025 3:00 PM EDT 05/01/2025 4:48 PM EDT us Rsoy Rhodes MD LAB MICROBIOLOGY - GENERAL ORDERABLES Final Result [facility] [address] [place] [address], [place] [phone] * Differential body fluid (05/01/2025 3:00 PM EDT) Only the most recent of3 resultswithin the time period is included. Fluid Neutrophils % 7 % 05/01/2025 6:44 PM EDT [facility] Fluid Lymphocytes % 42 % 05/01/2025 6:44 PM EDT [facility] Fluid Monocytes/Macrop hages 23 % 05/01/2025 6:44 PM EDT [facility] Fluid Eosinophils % 28 % 05/01/2025 6:44 PM EDT [facility] Fluid Basophils % 0 % 05/01/2025 6:44 PM EDT [facility] Fluid Other Cells % 0 % 05/01/2025 6:44 PM EDT [facility] Pleural Fluid Structure of left pleural cavity / Unknown 05/01/2025 3:00 PM EDT 05/01/2025 4:48 PM EDT Narrative [facility] - 05/01/2025 6:44 PM EDT No reference ranges have been established for body fluids. Clinical correlation recommended. us Rosy Rhodes MD LAB BODY FLUIDS AND STOOLS ORDERABLES Final Result [facility] [address] [place] [address], [place] [phone] * Protein, body fluid (05/01/2025 3:00 PM EDT) Only the most recent of3 resultswithin the time period is included. Protein, Fluid 5.2 See Comment g/dL LAB CHEMISTRY METHOD 05/01/2025 5:33 PM EDT [facility] Pleural Fluid Structure of left pleural cavity / Unknown Non-blood Collection / Unknown 05/01/2025 3:00 PM EDT 05/01/2025 4:48 PM EDT [facility] - 05/01/2025 5:33 PM EDT No reference ranges have been established for body fluids. Clinical correlation recommended. Rosy Rhodes MD LAB BODY FLUIDS AND STOOLS ORDERABLES Final Result [facility] [address] [place] [address], [place] [phone] * Lactate dehydrogenase, body fluid (05/01/2025 3:00 PM EDT) Only the most recent of3 resultswithin the time period is included. LD, Fluid 587 See Comment unit/L LAB CHEMISTRY METHOD 05/01/2025 5:33 PM EDT [facility] Pleural Fluid Structure of left pleural cavity / Unknown Non-blood Collection / Unknown 05/01/2025 3:00 PM EDT 05/01/2025 4:48 PM EDT [facility] - 05/01/2025 5:33 PM EDT No reference ranges have been established for body fluids. Clinical correlation recommended. Rosy Rhodes MD LAB BODY FLUIDS AND STOOLS ORDERABLES Final Result Performing Organization Address [facility]/ZIP Co de Phone Number [facility] [address] [place] [address], [place] [phone] * Glucose, body fluid (05/01/2025 3:00 PM EDT) Only the most recent of3 resultswithin the time period is included. Glucose, Fluid 103 See Comment mg/dL LAB CHEMISTRY METHOD 05/01/2025 5:33 PM EDT [facility] Pleural Fluid Structure of left pleural cavity / Unknown Non-blood Collection / Unknown 05/01/2025 3:00 PM EDT 05/01/2025 4:48 PM EDT Narrative [facility] - 05/01/2025 5:33 PM EDT No reference ranges have been established for body fluids. Clinical correlation recommended. Rosy Rhodes MD LAB BODY FLUIDS AND STOOLS ORDERABLES Final Result Performing Organization Address [facility] Co de Phone Number [facility] [address] [place] [address], [place] [phone] * MT THORACENTESIS PLEURAL SPACE NEEDLE/CATH ASPIRATION W IMAGING [...] infection and pneumothorax Alternatives discussed: No treatment Sheridan protocol: Procedure explained and questions answered to [...] midscapular line Intercostal space: 8th Puncture method: Kgiz-bfh-qbxxeh catheter Ultrasound guidance: yes Indwelling catheter placed: [...] for malignancy JS 03/25/2025 8:49 AM EDT [facility] Pleural Fluid Structure of right pleural cavity / Unknown Non-blood Collection / Unknown 03/24/2025 5:33 PM EDT 03/24/2025 5:45 PM EDT us Rosy Rhodes MD LAB BODY FLUIDS AND STOOLS ORDERABLES Final Result [facility] [address] [place] [address], [place] [phone] * Triglycerides, body fluid (03/24/2025 5:33 PM EDT) Triglycerides , Fluid 36 See Comment mg/dL LAB CHEMISTRY METHOD 03/25/2025 12:15 PM EDT [facility] Pleural Fluid Structure of right pleural cavity / Unknown Non-blood Collection / Unknown 03/24/2025 5:33 PM EDT 03/24/2025 5:45 PM EDT Narrative [facility] - 03/25/2025 12:15 PM EDT No reference ranges have been established for body fluids. Clinical correlation recommended. Rosy Rhodes MD LAB BODY FLUIDS AND STOOLS ORDERABLES Final Result [facility] [place] ([facility]) [facility] [address] [place] [address], * External CT Report (03/17/2025) Anatomical Region Laterality Modality Computed Tomogra phy us Provider [facility] IMG CT PROCEDURES Final Result from Last 3 Months Insurance MEDICAID - [...] currently active code status orders. Care Teams Food And Beverage Operations Manager Relationship Specialty Start Date End Date Mychal Long MD [address] [place] [address] [place] [id number] PCP - General 12/26/11
[2025-06-10 20:43] LABS: TS Negative Control Passed; TS Panel A 0; TS Panel B 0; TS Positive Control Passed; TSpotTB Negative (Negative)
[2025-06-11 14:37] LABS: Proteinase 3 PR3 Antibodies 13.9 AI
[2025-06-15 17:08] LABS: Asperg fumigatus Precip Abs NEGATIVE (NEGATIVE); Micropoly faeni Abs NEGATIVE (NEGATIVE); Saccharo pora viridis Abs NEGATIVE (NEGATIVE); Thermo candidus Abs NEGATIVE (NEGATIVE)
== END 2025-06-08 12:51 | disposition home or self-care (01) ==
LOC: HO.LAB 12:50
PROVIDERS: PCP Internal Medicine; Visit Provider Nurse Practitioner Family
DX: J45.909 Unspecified asthma, uncomplicated (principal); J90 Pleural effusion, not elsewhere classified; R06.00 Dyspnea, unspecified; D72.10 Eosinophilia, unspecified; R59.0 Localized enlarged lymph nodes; F17.210 Nicotine dependence, cigarettes, uncomplicated; Z01.84 Encounter for antibody response examination; Z11.1 Encounter for screening for respiratory tuberculosis
CPT/HCPCS: 36415; 86021; 86331; 86481; 86606; 86609; 99212

== ENCOUNTER 2025-06-10 15:55 | Outpatient (AMB) | payer MEDICAID, SELFPAY ==
--- NOTE | 2025-06-10 16:01 | MHC.OFFVIS ---
Vital Signs 06/10/25 16:06 Height 5 ft 3 in Weight 203 lb BMI 36.0 BP 139/73 Blood Pressure Location Lt brachial Position Sitting Intake Visit Reasons: 3 week follow up Intake Note: Elaine presents to in office follow up of erosive gastritis. CC: Patient states that she went to [facility] about a week ago and she was diagnosed with an infection for which she is taking abx right now. Rn Pediatric Icu Required: Yes Accompanied by: Grand Child Allergies metronidazole Allergy (Severe, Verified 06/10/25 16:15) vomiting Penicillins Allergy (Mild, Verified 06/10/25 16:15) VAGINAL FUNGUS INFECTION lisinopril (LISINOPRIL) Allergy (Unknown, Verified 06/10/25 16:15) COUGH verapamil Allergy (Unknown, Verified 06/10/25 16:15) unknown amoxicillin Adverse Reaction (Verified 06/10/25 16:15) Unknown HPI HPI 3 week follow up: Details: Assessment & Plan (1) Erosive gastritis: Code(s): K29.60 - Other gastritis without bleeding Category: Medical (2) Nausea: Code(s): R11.0 - Nausea Category: Medical (3) Right sided abdominal pain: Code(s): R10.9 - Unspecified abdominal pain Category: Medical (4) Nausea and vomiting: Code(s): R11.2 - Nausea with vomiting, unspecified Category: Medical Plan [place] #Malaika [employer] In the past she was on Dexilant Creon senna and dicyclomine. AT THE LAST APPOINTMENT WE RESTARTED THE DEXILANT AND THE SENNA and we have held on the Creon for now - The patient is a 54-year-old female presenting with nausea and constipation. - Reports persistent nausea since lung surgery, (thoracotomy at [facility]) worsens in the morning, exacerbated by smells and food intake. - Last bowel movement frequency affected due to HER PHARMACY NEVER DISTRIBUTING THE Senna. - Prior erosive esophagitis and gastritis; prior to coming to see me she had been out of her Dexilant for about a year. She only just received the Dexilant last week so she has not had a good trial of being back on it to see how this impacts her nausea - I did a thorough medication review to see if there are any medications that could be causing her continued nausea. I explained that sometimes nausea can be metabolic or even neurologic so I am trying to look at the big picture and make sure we do not miss anything. For now I am going to order a gastric emptying study and since she is due for colonoscopy we will get this along with an EGD. Since her nausea is worse 1st thing in the morning we will give her a trial of famotidine in the evening temporarily to see if we can promote healing. We will also give her ondansetron/Zofran for her nausea and vomiting. She tells me she is no longer taking VESIcare because it caused her too much dry mouth. Return office visit in 3 weeks Orders: Orders NM gastric emptying study Today R10.9 - Unspecified abdominal pain, R11.0 - Nausea Referrals GI Procedure Notification K29.60 - Other gastritis without bleeding, R10.9 - Unspecified abdominal pain, R11.0 - Nausea Medications: New famotidine (Pepcid) 40 mg PO BEDTIME 30 tabs 6RF ondansetron 4 mg PO BID-TID PRN 90 tabs 3RF nausea and vomiting R11.2 - Nausea with vomiting, unspecified Refilled sennosides (senna) 1-2 tabs qhs orally bedtime; 60 caps 6RF constipation 30 days On Hold solifenacin (Vesicare) Hold Comment: pt not taking r/t dry mouth 10 mg PO DAILY 30 tabs 5RF GASTRIC EMPTYING STUDY EGD/COLONOSCOPY BIOPSY TODAY'S VISIT [place] # PFSH Medical History (Updated 06/10/25 @ 16:06 by JEB Olsen) Dyspnea Urine incontinence Hematuria Right sided abdominal pain Chest discomfort Well woman exam Nausea Post-cholecystectomy syndrome Cataract, right eye Bilateral primary osteoarthritis of knee Gallstone pancreatitis Palpitations Fibromyalgia Depression Glaucoma HTN (hypertension) Surgical History (Updated 05/22/25 @ 13:31 by JEB Olsen) S/P thoracotomy H/O colonoscopy History of tubal ligation Hx of carpal tunnel repair Hx of cholecystectomy Hx of knee surgery Family History Father Kidney disease Mother CVD (cardiovascular disease) Colon cancer Social History Alcohol intake: never Patient Tobacco Use Status: Current everyday Tobacco user Cigarette Packs Per Day: 0.5 Cigarettes Per Day: 10 Years Smoked: 30 Female Reproductive History Menstrual Age of Menarche: 9 Review of Systems Const Denies fatigue, Denies fever(s), Denies night sweats, Denies poor appetite and Denies weight loss ENT Reports Normal hearing present, Denies dental pain, Denies dysphagia, Denies hearing loss, Denies mouth pain, Denies odynophagia, Denies throat swelling, Denies tongue swelling and Reports other (Dentition adequate) Card Reports no additional complaints and Reports dyspnea on exertion Resp Reports cough and Reports dyspnea on exertion GI Details: Denies abdominal pain, Denies melena, Denies bloating, Denies hematochezia, Reports constipation, Denies GI cramping, Denies dysphagia, Denies excessive flatus, Denies early satiety, Reports heartburn, Denies diarrhea, Reports nausea, Denies odynophagia, Reports vomiting and Denies hematemesis Skin/Breast Denies pruritus, Denies lesions, Denies rash and Denies jaundice Neuro Reports Normal hearing present and Denies Abnormal speech present Endo Denies fatigue Aller/Immun Denies throat swelling and Denies tongue swelling Physical Exam Const General: cooperative, no acute distress, well developed and well groomed Nutritional Appearance: well nourished and obese Orientation/consciousness: oriented to person, oriented to place and oriented to time Limitations: language barrier HEENT Head: Yes normocephalic and Yes atraumatic Eyes General: appearance normal, both eyes and all related structures Pupils: Equal, round and reactive pupils present Neck Neck: Yes normal visual inspection and Yes no lymphadenopathy Thyroid: Thyroid normal Resp Effort & Inspection: normal respiratory effort and able to speak in complete sentences Auscultation: clear to auscultation bilaterally Cardio Rate: regular rate Rhythm: regular rhythm Heart sounds: Normal, physiologic split S2 sound present Peripheral pulses: radial pulses present and posterior tibial pulses present GI Inspection: No distended, Yes Abdominal panniculus present and Yes obesity Palpation (GI): Soft to palpation, nontender, no guarding, not rigid and No hepatosplenomegaly present Percussion: Yes normal to percussion Auscultation: normal bowel sounds Rectal Exam - Female: deferred Skin General skin exam: no rashes or lesions noted, turgor normal, skin not dry, no jaundice, No spider nevi and no striae Rashes: no rashes Nails: normal Neuro General: oriented to person, oriented to place and oriented to time Cranial nerves: Yes Equal, round and reactive pupils present and Yes Normal hearing present Speech: No Abnormal speech present Extrem General: Yes normal to inspection, No clubbing, No cyanosis and No edema Psych Appearance: grossly normal and well kempt Mental Status: mental status grossly normal Speech and movement: Normal speech and movement present Affect: normal affect Attitude: cooperative Thought process: Normal thought process present and not confabulating Thought content: Normal thought content present Insight: Fair insight present (Psych) Judgement: Fair judgement present (Psych) Assessment & Plan Assessment & Plan (1) Irritable bowel syndrome with both constipation and diarrhea: Comment: Constipation seems to be the dominant process Code(s): K58.2 - Mixed irritable bowel syndrome Category: Medical (2) Nausea and vomiting: Code(s): R11.2 - Nausea with vomiting, unspecified Category: Medical (3) Erosive gastritis: Code(s): K29.60 - Other gastritis without bleeding Category: Medical Plan [place] #V live She is on Dexilant, along with famotidine in the evening, senna, dicyclomine and Zofran and for now we are holding her Creon. - The patient is a 54-year-old female here for follow-up for her GERD, nausea, and IBS-M mostly constipation dominant. Prior to this I had not seen her and she had been out of her PPI for a year likely exacerbating her symptoms. She is on Dexilant and I also gave her some famotidine to help speed her gastric healing and hopefully help her nausea. - The patient has experienced ongoing nausea, contributing to her use of Zofran to manage the symptoms. She only has occasional vomiting 1st thing in the morning which she attributes to activation of her gag reflex from coughing up pulmonary secretions. Since I last saw her, she experienced pulmonary edema after a thoracotomy and the biopsy came back with multiple eosinophils so she was put on prednisone. - Constipation is an issue, and the patient reported confusion over her [place] prescription, which was not available at [facility] due to system errors or oversight. - I had held her Creon just to simplify things but she does think it helped her in the past and she would like to restart it so we will. She has an gastric emptying study and an EGD colonoscopy ordered. I think we should continue to go forward with these investigations to make sure there is no more concerning pathology causing her nausea vomiting and general discomfort. I am hoping that she will continue to improve symptomatically as her respiratory situation is resolved. Return office visit in 3 months GASTRIC EMPTYING STUDY EGD/COLONOSCOPY BIOPSY Medications: New vspzvk-zudxvszw-snlrxsx 24,000-76,000 -120,000 unit (Creon) 2 caps PO BID 120 caps 6RF 30 days K58.9 - Irritable bowel syndrome, unspecified Refilled dexlansoprazole (Dexilant) 60 mg PO DAILY 30 caps 6RF 30 days K29.60 - Other gastritis without bleeding sennosides (senna) 1-2 tabs qhs orally bedtime; 60 caps 6RF constipation 30 days Coding Level of Care Code Est Pt Level 3 (21128) Diagnoses Irritable bowel syndrome with both constipation and diarrhea K58.2 Nausea and vomiting R11.2 Erosive gastritis K29.60
[2025-06-10 16:06] VITALS: BP 139/73; BMI 36.0
--- OUTSIDE RECORDS SUMMARY | 2025-06-10 16:32 | XMS_ITS ---
Author Organization [employer] Address [address] [place] [address] 7 [place] [address] Care Team Providers Care Griddle Attendant Name Role Phone Mychal Fields MD Primary Care Provide r Hima Fam MANAGER SIX SIGMA Unavailable Unavailable Yaneth Dotson RN Unavailable [phone] Mckenzie Silverio Unavailable CHW Complex Status:Enrolled (Active) Start date:02/24/2025 Enrollment date:03/04/2025 Enrollment reason:ADT Feed Overview ED- Pt went to [facility] ED on 02/23/25. Please outreach for enrollment. Case Team Name Relationship Phone Mckenzie Silverio(Responsible Staff) [phone] Continued Care and Services Coordination
--- OUTSIDE RECORDS SUMMARY | 2025-06-10 16:32 | XMS_ITS | Encounter Summary ---
Author Organization [employer] Address [address] [place] [address] 7[address] [place] [address] Care Team Providers Care Rivet Thrower Name Role Phone Mychal Fields MD Primary Care Provide r Hima Fam Unavailable Unavailable Yaneth Dotson RN Unavailable [phone] Mckenzie Silverio Unavailable Reason for Visit * Reason Comments Care Management C3CM- f/u call lvm Encounter Details Date Type Department Care Team ([facility] st Contact Info) Description 06/09/2025 Patient Outreach [facility] MEDICINE [address] [place] [address] Mychal Fields MD [address] [place], [place] [phone] Care Management (C3CM- f/u call lvm) Social History Tobacco Use Types Packs/Day [...] Progress Notes * Yaneth Dotson RN - 06/09/2025 10:37 AM EDT CM Yaneth Dotson RN placed outbound call to patient for follow up call. No answer at this time. LVM introducing herself from [facility] CM Department. Requested call back. CM reinforced direct contact information for any additional questions or concerns. Education provided on [facility]. Patient provided with after-hours line for [facility], , which offer night time triage service and option to transfer to concrete stone finisher provider if needed. CM will attempt another follow up call within 10 days. documented in this encounter Plan of Treatment Upcoming Encounters Date Type Department Care Team (Late st Contact Info) Description 07/24/2025 2:00 PM EST Office Visit [facility] MEDICINE [address] [place] [phone] Manjeet Deluca MD [address] [place] [address] 08/18/2025 2:15 PM EST Office Visit [address] [address] Mychal Fields MD [address] [place] [address] documented as of this encounter Visit Diagnoses Not on filedocumented in this encounter Additional Health Concerns Assessment Noted Time PHQ-9 Depression Total Score: 15 025 12:51 PM EDT documented as of this encounter Care Teams Rivet Thrower Relationship Specialty Start Date End Date Mychal Fields MD [address] [place] [phone] PCP - General Internal Medicine 04/30/14 Hima Fam FNP [address] [place] [address] Nurse Practitioner Family Medicine 08/01/23 Yaneth Dotson, ALAN [address] [place] [address] Registered Nurse Family Medicine 02/24/25 Mckenzie Silverio 02/24/25 documented as of this encounter
--- OUTSIDE RECORDS SUMMARY | 2025-06-10 16:32 | XMS_ITS | Encounter Summary ---
Author Organization [employer] Address [address] [place] [address] 7t [place] [address] Care Team Providers Care Financial Recruiter Name Role Phone Mychal Fields MD Primary Care Provide r Hima Fam Unavailable Unavailable Yaneth Dotson RN Unavailable [phone] Mckenzie Silverio Unavailable Reason for Visit * Reason Onset Date Comments Med Refill 06/09/2025 Encounter Details Date Type Department Care Team ([facility] st Contact Info) Description 06/09/[address] [facility] MEDICINE [address] [place], [place] [phone] Mychal Fields MD [address] [place], [place] [phone] Med Refill Social History Tobacco Use Types [...] * Telephone Encounter - Jermaine Blake - 06/09/2025 3:43 PM EDT TC from pt requesting medication refill. Medications needing refill : clonazePAM (KlonoPIN) 1 MG tablet To be sent to: clonazePAM (KlonoPIN) 1 MG tablet documented in this encounter Plan of Treatment Upcoming Encounters Date Type Department Care Team (Late st Contact Info) Description 07/24/2025 2:00 PM EST Office Visit [facility] MEDICINE [address] [place] [address] Manjeet Deluca MD [address] [place] [address] 08/18/2025 2:15 PM EST Office Visit [facility] [address] [place] [phone] Mychal Fields MD [address] [place] [address] documented as of this encounter Visit Diagnoses Not on filedocumented in this encounter Additional Health Concerns Assessment Noted Time PHQ-9 Depression Total Score: 15 025 12:51 PM EDT documented as of this encounter Care Teams Financial Recruiter Relationship Specialty Start Date End Date Mychal Fields MD [address] [place] [address] PCP - General Internal Medicine 04/30/14 Hima Fam FNP [address] [place] [address] Nurse Practitioner Family Medicine 08/01/23 Yaneth Dotson, ALAN [address] [place] [address] Registered Nurse Family Medicine 02/24/25 Mckenzie Silverio 02/24/25 documented as of this encounter
--- OUTSIDE RECORDS SUMMARY | 2025-06-10 16:32 | XMS_ITS | Encounter Summary ---
Author Organization [employer] Address [address] [place] [address] 7t [place] [address] Care Team Providers Care Manager Card Name Role Phone Mychal Fields MD Primary Care Provide r Hmia Fam Unavailable Unavailable Yaneth Dotson RN Unavailable [phone] Mckenzie Silverio Unavailable Encounter Details Date Type Department Care Team (Late st Contact Info) Description 06/11/2023 Orders Only [facility] CHC MED & PEDS [address] [place], [place] [phone] Veda Isabel LPN Social History Tobacco Use [...] 2:00 PM EST Office Visit [facility] MEDICINE [address] [place] [address] Manjeet Deluca MD [address] [place] [address] 08/18/2025 2:15 PM EST Office Visit [facility] MEDICINE [address] [place] [address] [phone] Mychal Fields MD [address] [place] [address] [phone] documented as of this encounter Visit Diagnoses Not on filedocumented in this encounter Additional Health Concerns Assessment Noted Time PHQ-9 Depression Total Score: 0 05/10/20 23 10:38 AM EDT documented as of this encounter Care Teams Manager Card Relationship Specialty Start Date End Date Mychal Fields MD [address] [place] [address] [phone] PCP - General Internal Medicine 04/30/14 Hima Fam FNP [address] [place] [address] Nurse Practitioner Family Medicine 08/01/23 Yaneth Dotson, ALAN [address] [place] [address] Registered Nurse Family Medicine 02/24/25 Mckenzie Silverio 02/24/25 [employer] 02/13/25 03/29/25 documented as of this encounter
--- OUTSIDE RECORDS SUMMARY | 2025-06-10 16:32 | XMS_ITS | Encounter Summary ---
Author Organization [employer] Address [address] [place] [address] [address] [place] [address] Care Team Providers Care Tying Machine Operator Lumber Name Role Phone Mychal Fields MD Primary Care Provide r Hima Fam Unavailable Unavailable Yaneth Dotson RN Unavailable [phone] Mckenzie Silverio Unavailable Reason for Visit * Reason Onset Date Comments Med Refill 06/09/2025 Encounter Details Date Type Department Care Team ([facility] Contact Info) Description 06/09/[address] [facility] MED & PEDS [address] [place] [address] Noemy Frye, RN [address] [place] [address] Anxiety and depression Social History Tobacco Use [...] the past 12 months, has t he [employer], gas, oil or water company threatened to [...] encounter Miscellaneous Notes * Telephone Encounter - Noemy Frye RN - 06/09/2025 4:12 PM EDT Would you like pt to be on AMBULANCE DRIVER? Re: Clonazepam. What tier? documented in this encounter Plan of Treatment Upcoming Encounters Date Type Department Care Team (Late st Contact Info) Description 07/24/2025 2:00 PM EST Office Visit [facility] MEDICINE [address] [place] [address] Manjeet Deluca MD [address] [place] [address] 08/18/2025 2:15 PM EST Office Visit [facility]INE [address] [place] [address] Mychal Fields MD [address] [place] [address] documented as of this encounter Visit Diagnoses Diagnosis Anxiety and depression documented in this encounter Additional Health Concerns Assessment Noted Time PHQ-9 Depression Total Score: 15 025 12:51 PM EDT documented as of this encounter Care Teams Tying Machine Operator Lumber Relationship Specialty Start Date End Date Mychal Fields MD [address] [place] [address] PCP - General Internal Medicine 04/30/14 Hima Fam FNP [address] [place] [address] Nurse Practitioner Family Medicine 08/01/23 Yaneth Dotson, RN [address] [place] [address] Registered Nurse Family Medicine 02/24/25 Mckenzie Silverio 02/24/25 documented as of this encounter
--- OUTSIDE RECORDS SUMMARY | 2025-06-10 16:32 | XMS_ITS | Encounter Summary ---
Author Organization [employer] Address [address] [place] [address] 7 [place] [address] Care Team Providers Care Sample Prep Technician Name Role Phone Mychal Fields MD Primary Care Provide r Hima Fam Unavailable Unavailable Yaneth Dotson RN Unavailable [phone] Mckenzie Silverio Unavailable Reason for Visit * Reason Onset Date Comments Appointment Request 12/04/2022 Encounter Details Date Type Department Care Team ([facility] st Contact Info) Description 12/04/2022 Telephone [facility] MEDICINE [address] [place], [place] [phone] Mychal Fields MD [address] [place], [place] [phone] Appointment Request Social History Tobacco Use Types [...] ff/u Bp ) Please contact pt at [phone] * Telephone Encounter - Wesley Collins - 12/04/2022 2:02 PM EDT Tc from pt requesting to r/s appt on 10/19/22 ( ff/u Bp ) Please contact pt at [phone] documented in this encounter Plan of Treatment Upcoming Encounters Date Type Department Care Team (Late st Contact Info) Description 07/24/2025 2:00 PM EST Office Visit [facility] MEDICINE [address] [place] [address] Manjeet Deluca MD [address] [place] [address] 08/18/2025 2:15 PM EST Office Visit [facility] MEDICINE [address] [place] [address] Mychal Fields MD [address] [place] [address] documented as of this encounter Visit Diagnoses Not on filedocumented in this encounter Additional Health Concerns Assessment Noted Time PHQ-9 Depression Total Score: 7 10/09/19 23 4:00 PM EST documented as of this encounter Care Teams Sample Prep Technician Relationship Specialty Start Date End Date Mychal Fields MD [address] [place] [address] PCP - General Internal Medicine 04/30/14 Hima Fam FNP [address] [place] [address] Nurse Practitioner Family Medicine 08/01/23 Yaneth Dotson, ALAN [address] [place] [address] Registered Nurse Family Medicine 02/24/25 Mckenzie Silverio 02/24/25 [employer] 02/13/25 03/29/25 documented as of this encounter
--- OUTSIDE RECORDS SUMMARY | 2025-06-10 16:32 | XMS_ITS | Clinical Summary ---
Author Organization [employer] Address [address] [place] [address] 7[address] [place] [address] Care Team Providers Care Real Estate Broker Name Role Phone Mychal Fields MD Primary Care Provide r Hima Fam Unavailable Unavailable Yaneth Dotson RN Unavailable [phone] Mckenzie Silverio Unavailable Allergies Active Allergy Reactions [...] (two) hours if needed. 024 Active rizatriptan PLANTING SUPERVISOR (Maxalt-PLANTING SUPERVISOR) 5 MG disintegrating tablet 024 Active terbinafine [...] MOUTH EVERY DAY 90 tablet 025 Active zolpidem (Ambien) 10 [...] FOR SLEEP 30 tablet 025 2024 Discontinued clonazePAM (KlonoPIN) [...] evaluated by Dr. Wynn at our [facility] who recommended to check D dimer [...] reports she has completed thyroid ultrasound at [facility], notes not available at this time Hair [...] EDT): Pelvis exam indicative of this Plan: LACTATION SPECIALIST referral Right foot pain 05/10/2023 Assessment & [...] with no good results, cannot tolerate NSAIDS [facility] neurology is not accepting new patients at the moment. Will try to refer to a different Neurologist perhaps at [facility] Assessment & Plan (01/17/2024 1:06 PM EDT): [...] will also be referring to Neurology at [facility] Assessment & Plan (04/03/2023 1:22 PM EDT): Under the care of Dr Chad Acosta. Last seen on 04/20/2014 He started her on Amitriptyline 25 mg po qhs. and recommended a 6 month f/u. [facility] care 10/19/2022 Assessment & Plan (09/16/2024 3:54 [...] who retired Pt has a therapist at [facility] I recommended she speak with therapist about referral to agency psychiatrist, unfortunatelly they do not have any availability In the meantime I will manage medications if necessary. Plan: Continue: clonazePAM (KlonoPIN) 1 MG tablet hydrOXYzine HCl (Atarax) 25 MG tablet zolpidem (Ambien) 10 MG tablet Will refer to our marriage and family therapist Assessment & Plan (05/15/2024 1:34 PM EDT): Patient has tried many different antidepressants and mood stabilizers but she was intolerant of everything. She is doing reasonably well. Her panic attacks respond to Hydroxyzine 25 mg prn. She takes Clonazepam 1 mg TID prn. And Ambien 10 mg at bedtime. This was prescribed by Hima Fam who recently retired Pt has a therapist at [facility] I recommended she speak with [...] necessary. For any issues or concerns, contact [facility]. All her questions were answered and [...] be under the care of workers compensation specialist who had been prescribing Baclofen Assessment [...] be under the care of workers compensation specialist who had been prescribing tramadol 100mg [...] without neural impingement. Pt was seen at [facility] 04/2023 and has a follow up [...] without neural impingement. Pt was seen at [facility] recently has a follow up recommended [...] neural impingement. [facility] Smoker 02/21/2012 Assessment & Plan [...] organization. Date Type Department Care Team Description 06/10/2025 Patient Outreach [facility] [address] [place] [phone] Mychal Fields MD Care Coordination (SDGA f/u) 06/09/2025 Refill [facility] [address] [place] [address] Noemy Frye RN Anxiety and depression 06/09/2025 Telephone [facility] [address] [place] [phone] Mychal Fields MD Med Refill 06/09/2025 Patient Outreach [facility] [address] [place] [phone] Mychal Fields MD Care Management (C3CM- f/u call lvm) 06/05/2025 Telephone [facility] [address] [place] [phone] Mychal Fields MD 06/05/2025 Telephone [facility] [address] [place] [phone] Mychal Fields MD august06/01/2025 Patient Outreach [facility] [address] [place] [phone] Mychal Fields MD 05/28/2025 Patient Outreach [facility] [address] [place] [phone] Mychal Fields MD Care Management (C3CM- f/u call) 05/27/2025 Patient Outreach [facility] [address] [place] [address] yMchal Fields MD Care Coordination (SDOH f/u ) 05/27/2025 Patient Outreach [address] [address] Mychal Fields MD Care Management (C3- f/u call #4 lvm) 05/18/2025 Patient Outreach [address] [address] Mychal Fields MD Care Management (C3- f/u call #4 lvm) 05/12/2025 Refill [facility] [address] [place] [address] Mychal Fields MD Anxiety and depression 05/12/2025 Orders Only [facility] External Provider, [facility] 05/06/2025 Patient Outreach [address] [address] Mychal Fields MD Care Coordination (Appt reminder) 05/05/2025 Patient Outreach [facility] [address] [place] [phone] Mychal Fields MD Care Coordination ([facility] f/u) 05/05/2025 Patient Outreach [address] [address] Mychal Fields MD Care Management ([facility]- f/u call # lvm) 04/30/2025 Refill [facility] [address] [place] [address] Noemy Frye RN Anxiety and depression 04/30/2025 Refill [facility] [address] [place] [phone] Mychal Fields MD Essential hypertension 04/30/[address] [address] Mychal Fields MD Med Refill 04/21/2025 Patient Outreach [address] [address] Mychal Fields MD Care Coordination (SDOH f/u) 04/21/2025 Patient Outreach [facility] [address] [place] [address] Mychal Fields MD Care Management (C3CM- f/u call lvm) 04/16/2025 11:30 AM EDT Office Visit [facility] [address] [place] [address] Mychal Fields MD Microscopic hematuria (Primary Dx); Restrictive lung disease; Essential hypertension; Low vitamin D level 04/16/2025 Travel 04/16/2025 Telephone [facility] [address] [place] [address] Mychal Fields MD Error (VOID this visit) 04/16/2025 Refill [facility] [address] [place] [address] Claudette Nassar MD 04/09/2025 Patient Outreach [facility] [address] [place] [address] Mychal Fields MD Care Management (C3CM- f/u call lvm) 04/09/2025 Patient Outreach [facility] [address] [place] [address] Mychal Fields MD Care Coordination (Appt reminder) 04/09/2025 Refill [facility] [address] [place] [address] Mychal Fields MD Chronic midline low back pain without sciatica 04/08/2025 Refill [facility] [address] [place] [address] Mychal Fields MD Anxiety and depression 04/08/2025 Patient Outreach [facility] [address] [place] [address] Mychal Fields MD Pre-visit Planning (Pre-visit planning - LVM ) 04/05/2025 Refill [facility] [address] [place] [address] Mychal Fields MD 04/03/2025 Patient Outreach [address] [address] Mychal Fields MD Care Coordination (Appt reminder) 04/02/[address] [address] Mychal Fields MD Care Management (C3CM) 04/01/2025 Patient Outreach [address] [address] Mychal Fields MD 04/01/[address] [address] Mychal Fields MD Care Management (C3CM- f/u call) 04/01/2025 Patient Outreach [address] [address] Mychal Fields MD Care Coordination (PT1) 03/31/2025 Patient Outreach [address] [address] Mychal Fields MD Care Management (C3CM- f/u call #2. lvm) 03/31/2025 Patient Outreach [address] [address] Mychal Fields MD Care Coordination (PT1) 03/31/2025 Patient Outreach [address] [address] Mychal Fields MD Care Coordination (pt1) 03/25/2025 Refill [facility] [address] [place] [address] Mychal Fields MD Anxiety and depression 03/24/2025 Patient Outreach [address] [address] Mychal Fields MD Care Management (C3CM- 1st f/u call lvm) 03/24/2025 Patient Outreach [address] [address] Mychal Fields MD Care Coordination (SDOH) 03/23/2025 Patient Outreach [facility] [address] [place] [address] Mychal Fields MD 03/20/2025 Patient Outreach [facility] [address] [place] [address] Mychal Fields MD Care Coordination (Appt reminder) 03/17/2025 Orders Only [facility] External Provider, [facility] 03/16/2025 Patient Outreach [facility] [address] [place] [address] Mychal Fields MD Care Coordination (Appt reminder) [...] Description 07/24/2025 2:00 PM EST Office Visit [facility] [address] [place], [place] [phone] Manjeet Deluca MD [address] [facility] [place], [place] [phone] 08/18/2025 2:15 PM EST Office Visit [facility] [address] [place], [place] [phone] Mychal Fields MD [address] [place], [place] [phone] Health Maintenance Due Date Last Done Comments CT Colonography 1970 FIT DNA/Cologuard 1970 FIT 1970 FOBT 1970 Sigmoidoscopy 1970 Hepatitis A Vaccines (1 of 2 - Risk 2-dose series) 1989 Hepatitis B Vaccines (1 of 3 - 19+ 3-dose series) 1989 Pneumococcal Vaccine: 50+ Years (2 of 2 - PCV) 12/27/2012 12/28/2011 Zoster Vaccines (1 of 2) 2020 COVID-19 Vaccine ( season) 2025 06/20/2022, 06/20/2022, 05/17/2021 Influenza Vaccine [...] AUTO DIFFERENTIAL Routine 03/17/2025 6:42 PM EDT [id number] ING ENZYME Routine 03/17/2025 2:07 PM EDT [...] EDT) Sodium 141 135 - 145 mmol/L [facility] Potassium 3.8 3.3 - 5.1 mmol/L [facility] Chloride 105 96 - 108 mmol/L [facility] Carbon Dioxide 29 22 - 29 mmol/L [facility] Anion Gap 11(L) 12 - 20 [facility] Urea Nitrogen (BUN) 8(L) 9 - 16 mg/dL [facility] Creatinine, Serum 0.85 0.5 - 1.4 mg/dL [facility] Estimated Glomerular Filt Rate >60 [facility] Comment:Chronic Kidney Disea se: Estimated GFR < 60 mL/min/1.96w9Vyefpw Kidney Disease: Estimated GFR < 15 mL/min/1.73m2 Glucose 110 60 - 115 mg/dL [facility] Calcium 9.0 8.4 - 10.2 mg/dL [facility] Blood Venous blood specimen / Unknown 05/22/2025 2:00 PM EDT 05/22/2025 2:00 PM EDT us Mychal Morris MD LAB BLOOD ORDERABLES Final Result Performing Organization Address [facility] Co de Phone Number [facility] [address] [place] [phone] * POCT Creatinine GFR (05/12/2025 10:39 AM EDT) Only the most recent of2 resultswithin the time period is included. POCT Creatinine 1.1 0.5 - 1.4 mg/dL [facility] GFR POC 55 [facility] Comment:Chronic Kidney Disea se: Estimated GFR < 60 mL/min/1.18l2Vmnrqd Kidney Disease: Estimated GFR < 15 mL/min/1.73m2 05/12/2025 10:3 9 AM EDT 05/12/2025 2:20 PM EDT Narrative [facility] - 05/12/2025 2:22 PM EDT [phone] us Generic External Data Provider LAB POINT OF CARE TEST DOCKED DEVICE ORDERABLES Final Result Performing Organization Address City/[facility]/ZIP Co de Phone Number [facility] [address] [place] [phone] * CTA Chest PE Protocal (05/12/2025 10:36 AM EDT) Anatomical Region Laterality Modality Body, Chest Computed Tomogra phy 05/12/2025 10:3 6 AM EDT Narrative 05/12/2025 11:22 AM EDT [address] [address] [address] Scan Report Signed Patient: Elaine Rodas MR#: [id number] : 1970 Acct:[id number] Age/Sex: 54 / F ADM Date: 05/12/25 Loc: HO.CT Attending Dr: Amy Zimmerman NP Ordering Physician: Amy Zimmerman NP Date of Service: 05/12/25 Procedure(s): CT angio chest PE protocol Accession Number(s): [id number] cc: Mychal Long MD; Amy Zimmerman NP Report Number: [id number]: Total DLP = 150.00 mGy-cm Reason for [...] 05/12/25 1119 DD/ 1036 TD/TT: 05/12/25 1100 Assurance Officer: Procedure Note Donotuseinterpreter, Image - 05/12/[address] [place] [address] [address] Scan Report Signed Patient: Elaine RodasMR#: [id number] : 1970Acct:[id number] Age/Sex: 54 / FADM Date: 05/12/25 Loc: HO.CT Attending Dr: Amy Zimmerman NP Ordering Physician: Amy Zimmerman NP Date of Service: 05/12/25 Procedure(s): CT angio chest PE protocol Accession Number(s): [id number] cc: Mycahl Long MD; Amy Zimmerman NP Report Number: [id number]: Total DLP = 150.00 mGy-cm Reason for [...] 05/12/25 1119 DD/ 1036 TD/TT: 05/12/25 1100 Assurance Officer: [facility] External Provider IMG CT PROCEDURES Final Result * XR Chest 2 Views (03/23/2025 2:47 PM EDT) Anatomical Region Laterality Modality Chest Radiographic Hilda ging 03/23/2025 2:47 PM EDT Narrative 03/23/2025 3:15 PM EDT [address] [address] XRay Report Signed Patient: Elaine Rodas MR#: [id number] : 1970 Acct:[id number] Age/Sex: 54 / F ADM Date: 03/23/25 Loc: [facility] Attending Dr: Amy Zimmerman NP Ordering Physician: Amy Zimmerman NP Date of Service: 03/23/25 Procedure(s): XR chest 2V Accession Number(s): [id number] cc: Mychal Long MD; Amy Zimmerman NP [...] 03/23/25 1512 DD/ 1447 TD/TT: 03/23/25 1501 Assurance Officer: Procedure Note Nishi, Image - 03/23/[address] [address] XRay Report Signed Patient: Elaine RodasMR#: [id number] : 1970Acct:[id number] Age/Sex: 54 / FADM Date: 03/23/25 Loc: [facility] Attending Dr: Amy Zimmerman NP Ordering Physician: Amy Zimmerman NP Date of Service: 03/23/25 Procedure(s): XR chest 2V Accession Number(s): [id number] cc: Mychal Long MD; Amy Zimmerman NP [...] 03/23/25 1512 DD/ 1447 TD/TT: 03/23/25 1501 Assurance Officer: us [facility] External Provider IMG XR PROCEDURES Final Result * High Sensitivity Troponin I (03/17/2025 7:24 PM EDT) Only the most recent of2 resultswithin the time period is included. [facility] TROPONIN I HIGH SENSITIVITY <2.7 <3.5 - 17.0 ng/L [facility] Comment:The [place] high sens itivity Troponin-I results should beused in conjunction with other diagnostic information suchas ECG, clinical observations and information, and patientsymptoms to aid in the diagnosis of [place]. 03/17/2025 7:24 PM EDT 03/17/2025 7:27 PM EDT us Generic External Data Provider LAB BLOOD ORDERAB LES Final Result [facility] [address] [place] [phone] * (ABNORMAL) CBC auto differential (03/17/2025 6:42 PM EDT) [facility] White Blood Count 8.9 4.8 - 10.8 X10*3/uL [facility] Red Blood Count 4.08(L) 4.20 - 5.50 X10*6/uL [facility] Hemoglobin 11.9(L) 12.0 - 16.0 g/dl [facility] Hematocrit 34.7(L) 37.0 - 47.0 % [facility] Mean Corpuscular Volume 85.0 80.0 - 98.0 fL [facility] Mean Corpuscular Hemoglobin 29.2 27.0 - 33.0 pg [facility] Mean Corpuscular HGB Conc 34.3 31.0 - 35.0 g/dl [facility] Red Cell Distribution Width 12.9 11.0 - 16.0 % [facility] Platelet Count 276 160 - 400 X10*3/uL [facility] Mean Platelet Volume 9.0(L) 9.4 - 12.3 fL [facility] Neutrophils Percent Auto 46.0 45 - 73 % [facility] Imm Gran Pct Auto 0.1 0.0 - 0.4 % [facility] Lymphocytes Percent Auto 31.5 20 - 40 % [facility] Monocytes Percent Auto 4.0 2 - 11 % [facility] Eosinophils Percent Auto 17.8(H) 0 - 4 % [facility] Basophils Percent Auto 0.6 0 - 2 % [facility] NRBC Pct Auto 0.0 0.0 - 0.2 /100WBC [facility] Neutrophils Absolute Auto 4.1 2.0 - 8.3 x10*3/uL [facility] Imm Gran Abs Auto 0.01 0.00 - 0.03 X10*3/uL [facility] Lymphocytes Absolute Auto 2.8 1.2 - 4.9 X10*3/uL [facility] Monocytes Absolute Auto 0.4 0.1 - 1.2 X10*3/uL [facility] Eosinophils Absolute Auto 1.6(H) 0.0 - 0.4 X10*3/uL [facility] Basophils Absolute Auto 0.1 0.0 - 0.2 X10*3/uL [facility] NRBC Abs Auto 0.000 0.0 - 0.012 X10*3/uL [facility] 03/17/2025 6:42 PM EDT 03/17/2025 6:45 PM EDT us Generic External Data Provider LAB BLOOD ORDERAB LES Final Result Performing Organization Address City/[facility] Co de Phone Number [facility] [address] [place] [phone] * B Type Natriuretic Peptide (BNP) (03/17/2025 6:42 PM EDT) B Type Natriuretic Peptide 11 <100 pg/mL [facility] 03/17/2025 6:42 PM EDT 03/17/2025 6:45 PM EDT us Generic External Data Provider LAB BLOOD ORDERAB LES Final Result Performing Organization Address City/[facility]/ZIP Co de Phone Number [facility] [address] [place] [phone] * (ABNORMAL) Comprehensive Metabolic Panel (03/17/2025 6:42 PM EDT) Sodium 141 135 - 145 mmol/L [facility] Potassium 3.7 3.3 - 5.1 mmol/L [facility] Chloride 109(H) 96 - 108 mmol/L [facility] Carbon Dioxide 23 22 - 29 mmol/L [facility] Anion Gap 13 12 - 20 [facility] Urea Nitrogen (BUN) 9 9 - 16 mg/dL [facility] Creatinine, Serum 1.03 0.5 - 1.4 mg/dL [facility] Creatinine Clr Calc Pharmacy 69.1 [facility] Comment:Provided height and weight: 160.02 cm,96.7 kg.eGFR (calculated from the MDRD study equation) and eCrCl(calculated from the Cockcroft-Gault equation) are based ondifferent parameters and may not yield comparable results.If eCrCl result is absurd, please check patient'sheight/weight. Estimated Glomerular Filt Rate 56 [facility] Comment:Chronic Kidney Disea se: Estimated GFR < 60 mL/min/1.27r6Xfagfu Kidney Disease: Estimated GFR < 15 mL/min/1.73m2 Glucose 137(H) 60 - 115 mg/dL [facility] Calcium 9.1 8.4 - 10.2 mg/dL [facility] Bilirubin, Total 0.2 0.0 - 1.0 mg/dL [facility] Aspartate Amino Transferase 18 5 - 31 U/L [facility] Alanine Aminotransferase 12 0 - 31 U/L [facility] Total Protein 7.2 6.5 - 8.0 g/dL [facility] Albumin Level 3.9 3.5 - 5.0 g/dL [facility] Alkaline Phosphatase 106 39 - 117 U/L [facility] 03/17/2025 6:42 PM EDT 03/17/2025 6:45 PM EDT us Generic External Data Provider LAB BLOOD ORDERAB LES Final Result Performing Organization Address [facility] Co de Phone Number [facility] [address] [place] [phone] * Angiotensin -1- Converting Enzyme (03/17/2025 2:07 PM EDT) Pathologist [facility] Angiotensin Converting Enzyme 37.3 9 - 67 U/L [facility] Comment:THIS TEST WAS PERFOR MED AT:[id number] [place] [address]HWBBZGOANSON CALVILLO MD,PHD 03/17/2025 2:07 PM EDT 03/17/2025 2:07 PM EDT Generic External Data Provider LAB BLOOD ORDERAB LES Final Result Performing Organization Address [facility] de Phone Number [facility] [address] [place] [phone] * MAURICE Screen,IFA, with Reflex to Titer and Pattern (03/17/2025 2:07 PM EDT) [facility] Anti Nuclear Antibody Screen NEGATIVE NEGATIVE [facility] Comment:MAURICE IFA is a first l [...] clinicallysuspected inflammatory myopathies.AC-0: NegativeInternational Consensus on MAURICE Patterns(https://doi.org/10.1515/zhym-4669-4883)For additional information, please refer [email or web address].[employer]iv[employer]/faq/CNE776(This link is being provided for informational/educational purposes only.)THIS TEST WAS PERFORMED AT:[employer] [place] [id number] PRESSLEY MD MAURICE Titer TNP [facility] MAURICE Pattern TNP [facility] MAURICE TITER 2 (REF LAB) TNP [facility] MAURICE Pattern 2 TNP [facility] MAURICE TITER 3 TNP [facility] MAURICE PATTERN 3 TNP [facility] 03/17/2025 2:07 PM EDT 03/17/2025 2:07 PM EDT us Generic External Data Provider LAB BLOOD ORDERAB LES Final Result [facility] [address] [place] [phone] * CT Chest w/ Contrast (03/17/2025 1:46 PM EDT) Anatomical Region Laterality Modality Body, Chest Computed Tomogra phy 03/17/2025 1:46 PM EDT Narrative 03/17/2025 2:19 PM EDT [address] [address] [address] Scan Report Signed Patient: Elaine Rodas MR#: [id number] : 1970 Acct:[id number] Age/Sex: 54 / F ADM Date: 03/17/25 Loc: HO.CT Attending Dr: Amy Zimmerman NP Ordering Physician: Amy Zimmerman NP Date of Service: 03/17/25 Procedure(s): CT chest w IV con Accession Number(s): [id number] cc: Mychal Long MD; Amy Zimmerman NP Report Number: [id number]: Total DLP = 344.00 mGy-cm EXAMINATION: CT [...] reconstruction technique DLP: 344 mGy centimeter. FINDINGS: ELECTRONIC TESTER: Patient's large body habitus. LUNGS: Linear attenuation [...] atelectasis in the lung bases Communicated via [employer] connect to nurse practitioner Amy Zimmerman on March 17, 2025 at 2:16 PM. Fleischner guidelines were followed. Electronically signed by: Ty Strong MD 03/17/2025 02:16 PM EDT Dictated By: Ty Olson MD Signed By: <Electronically signed by Ty Contreras MD in OV> 03/17/25 1416 DD/ 1346 TD/TT: 03/17/25 1403 Assurance Officer: Procedure Note Donotuseinterpreter, Image - 03/17/[address] [address] [address] Scan Report Signed Patient: Elaine Rodas#: [id number] : 1970Acct:[id number] Age/Sex: 54 / FADM Date: 03/17/25 Loc: HO.CT Attending Dr: Amy Zimmerman NP Ordering Physician: Amy Zimmerman NP Date of Service: 03/17/25 Procedure(s): CT chest w IV con Accession Number(s): [id number] cc: Mychal Long MD; Amy Zimmerman NP Report Number: [id number]: Total DLP = 344.00 mGy-cm EXAMINATION: CT [...] reconstruction technique DLP: 344 mGy centimeter. FINDINGS: ELECTRONIC TESTER: Patient's large body habitus. LUNGS: Linear attenuation [...] atelectasis in the lung bases Communicated via [employer] connect to nurse practitioner Amy Zimmerman on March 17, 2025 at 2:16 PM. Fleischner guidelines were followed. Electronically signed by: Ty Strong MD 03/17/2025 02:16 PM EDT Dictated By: Ty Olson MD Signed By: <Electronically signed by Ty Contreras MDin OV> 03/17/25 1416 DD/ 1346 TD/TT: 03/17/25 1403 Assurance Officer: [facility] External Provider IMG CT PROCEDURES Final Result * Hepatitis C Ab (11/05/2024 3:21 PM EST) Hepatitis C Antibody Nonreactive Nonreactive [facility] Comment:Antibodies to HCV no t detected; does not exclude early acuteHCV infection. 11/05/2024 3:21 PM EST 11/05/2024 3:21 PM EST Generic External Data Provider LAB BLOOD ORDERAB LES Final Result [facility] [address] [place] [phone] * HIV-1/2 Antigen and Antibodies, Fourth Generation, with Reflexes (11/05/2024 3:21 PM EST) HIV AB/AG Nonreactive Nonreactive [facility] Comment:HIV-1 p24 Ag and/or HIV-1/HIV-2 Ab not detected.A test result that is nonreactive does not exclude thepossibility of exposure to or infection with HIV-1 and/orHIV-2. Nonreactive results in this assay for individualswith prior exposure to HIV-1 and/or HIV-2 may be due toantigen and antibody levels that are below the limit ofdetection of this assay.The [employer] HIV Ag/Ab Combo assay result andsupplemental assay results should be interpreted inconjunction with the patient's clinical presentation,history and other laboratory results. If the results areinconsistent with clinical evidence, additional testing issuggested to confirm the result. 11/05/2024 3:21 PM EST 11/05/2024 3:21 PM EST us Generic External Data Provider LAB BLOOD ORDERAB LES Final Result [facility] [address] [place] [address] [phone] * BI Mammogram Screening Tomosynthesis Bilateral (10/29/2024 12:58 PM EST) Anatomical Region Laterality Modality Breast Bilateral Mammography 10/29/2024 12:5 8 PM EST Narrative 11/04/2024 12:41 PM EST [facility] [address] [place] [address] Mammography Report Signed Patient: Elaine Rodas MR#: [id number] : 1970 Acct:[id number] Age/Sex: 53 / F ADM Date: 10/29/24 Loc: HO.MAMMO Attending Dr: Mychal Long MD Ordering Physician: Syed Coreas MD Results: 1Negativ e Date of Service: 10/29/24 Follow Up: 1 Year From Orig ina Mammogram Procedure(s): MM tomosynthesis screening BI Accession Number(s): [id number] cc: Mychal Long MD; Syed Coreas MD [...] 11/04/24 1238 DD/ 1258 TD/TT: 10/29/24 1315 Assurance Officer: Procedure Note Donotuseinterpreter, Image - 11/04/2024 [facility] [address] [place], [place] [address] Mammography Report Signed Patient: Elaine RodasMR#: [id number] : 1970Acct:[id number] Age/Sex: 53 / FADM Date: 10/29/24 Loc: SHAVONO Attending Dr: Mychal Long MD Ordering Physician: Syed Coreas MDResults: 1Negativ e Date of Service: 10/29/24Follow Up: 1 Year From Orig inal Mammogram Procedure(s): MM tomosynthesis screening BI Accession Number(s): [id number] cc: Mychal Long MD; Syed Coreas MD [...] 11/04/24 1238 DD/ 1258 TD/TT: 10/29/24 1315 Assurance Officer: [facility] External Provider IMG BI PROCEDURES Final Result * HPV mRNA E6/E7 w/Reflex to HPV Genotypes 16, 18/45 (08/23/2023 2:22 PM EST) HPV nRNA E6/E7 Not Detected Not Detected [facility] Comment:Methodology: Transcr iption-Mediated AmplificationThis assay detects E6/E7 viral messenger RNA (mRNA) from 14high-risk HPV types (16,18,31,33,35,39,45,51,52,56,58,59,66,68).Cervical sources are required for HPV testing.If a vaginal source from a patient who has had atotal hysterectomy with removal of cervix wassubmitted, please contact the testing laboratoryfor alternative testing options.For additional information, please refer tohttp://education.[employer]/faq/IHM611o5(This link if provided for information/educational purposes only.)THIS TEST WAS PERFORMED AT:[facility] [place] [id number] PRESSLEY MD HPV mRNA E6/E7 [facility] HPV 16 RNA [facility] HPV 18/45 RNA [facility] 08/23/2023 2:22 PM EST 08/24/2023 9:35 AM EST Cecily [facility] LAB CYTOLOGY ORDERABLES F inal Result [facility] [address] [place] [address] [phone] * Pap Smear (08/23/2023 2:22 PM EST) Swab Cervix uteri structure / Unknown 08/23/2023 2:22 PM EST 08/24/2023 9:35 AM EST [facility] - 09/04/2023 1:23 PM EST ----- ------- Name: Elaine Rodas Age/Sex: 52/F : 1970 Unit#: [id number] Attend Dr: Re08/23/23 Status: PRE [facility] ----- ------- SPEC : [id number] RECD: 08/24/23 STATUS: RICHARD SCHAEFER NUM: [id number] CHAPIN: 08/23/23-142 [facility] DR: CECILY SCHWAB CNM ENTERED: 08/24/23-5857 SP TYPE: Pap [facility] DR: ORDERED: Pap Smear Interpretation Satisfactory for evaluation. No endocervical cells seen. Cytolysis noted. Negative for intraepithelial lesion or malignancy. HPV mRNA E6/E7: NOT DETECTED This assay detects E6/E7 viral messenger RNA (mRNA) from 14 high-risk HPV types (16, 18, 31, 33, 35, 39, 45, 51, 52, 56, 58, 59, 66, 68) HPV testing performed by [facility], [place], [place]. See reference laboratory portion of the EMR for entire report. Clinical Information LMP: Postmenopausal Previous PAP test: Unknown date/findings Other history: Abnormal bleeding Material Received ThinPrep-Cervical ----- ------- Signed (signature on file) Maureen Reddy CT (ASCP) 09/04/23 1323 ----- ------- END OF REPORT Cecily [facility] LAB CYTOLOGY ORDERABLES F inal Result [facility] [address] [place] [phone] * Colonoscopy (08/30/2022) Colonoscopy Normal Normal [...] LDL-C. Mina MARRERO et al. ASHUTOSH. 2013;310(19): 7469-7456 (http://education.Watchwith.Ye[employer]ive/faq/GSI927) Chol/HDLC Ratio 3.4 <5.0 (calc) [facility] 06/17/2020 3:00 PM EDT us Mychal Morris MD LAB BLOOD ORDERABLES Final Result [facility] [address] from Last 3 Months or Most Recently Relevant to Health Maintenance Insurance [address] [place], [place] [address] C3 Care Teams Real Estate Broker Relationship Specialty Start Date End Date Mychal Fields MD [address] [place] [address] PCP - General Internal Medicine 04/30/14 Hima Fam FNP [address] [place] [address] Nurse Practitioner Family Medicine 08/01/23 Yaneth Dotson, ALAN [address] [place] [address] Registered Nurse Family Medicine 02/24/25 Mckenzie Silverio 02/24/25
--- OUTSIDE RECORDS SUMMARY | 2025-06-10 16:32 | XMS_ITS | Encounter Summary ---
Author Organization [employer] Address [address] [place] [address] 7t [place] [address] Care Team Providers Care Construction Economist Name Role Phone Mychal Fields MD Primary Care Provide r Hima Fam Unavailable Unavailable Yaneth Dotson RN Unavailable [phone] Mckenzie Silverio Unavailable Reason for Visit * Reason Comments Med Refill Encounter Details Date Type Department Care Team (Late st Contact Info) Description 10/05/2022 Refill [facility] [address] [place] [address] Hima Fam FNP Anxiety state Social History [...] 07/24/2025 2:00 PM EST Office Visit [facility] [address] [place] [address] Manjeet Deluca MD [address] [place] [address] 08/18/2025 2:15 PM EST Office Visit [facility] [address] [place] [address] [phone] Mychal Fields MD [address] [place] [address] documented as of this encounter Visit Diagnoses Diagnosis Anxiety state Anxiety state, unspecified documented in this encounter Care Teams Construction Economist Relationship Specialty Start Date End Date Mychal Fields MD [address] [place] [address] PCP - General Internal Medicine 04/30/14 Hima Fam FNP [address] [place] [address] Nurse Practitioner Family Medicine 08/01/23 Yaneth Dotson, ALAN [address] [place] [address] Registered Nurse Family Medicine 02/24/25 Mckenzie Silverio 02/24/25 [employer] 02/13/25 03/29/25 documented as of this encounter
--- OUTSIDE RECORDS SUMMARY | 2025-06-10 16:32 | XMS_ITS | Encounter Summary ---
Author Organization [employer] Address [address] [place] [address] 7t [place] [address] Care Team Providers Care Motor Generator Set Operator Name Role Phone Mychal Fields MD Primary Care Provide r Hima Fam Unavailable Unavailable Yaneth Dotson RN Unavailable [phone] Mckenzie Silverio Unavailable Encounter Details Date Type Department Care Team (Late st Contact Info) Description 04/24/2023 Orders Only [facility] [address] [place] [address] [phone] Zena Harley MD [address] [place] [address] [phone] Acquired clavicle deformity (Primary Dx) Social History [...] 07/24/2025 2:00 PM EST Office Visit [facility] [address] [place] [address] [phone] Manjeet Deluca MD [address] [place] [address] [phone] 08/18/2025 2:15 PM EST Office Visit [facility] [address] [place], [place] [phone] Mychal Fields MD [address] [place], [place] [phone] Scheduled Orders Name Type Priority Associated Diagnoses [...] PM EDT Narrative 05/14/2023 4:45 PM EDT [address] [address] XRay Report Signed Patient: Elaine Rodas MR#: [id number] : 1970 Acct:[id number] Age/Sex: 52 / F ADM Date: 05/14/23 Loc: HO.ED Attending Dr: Ordering Physician: Vee Castano NP Date of Service: 05/14/23 Procedure(s): XR chest 2V Accession Number(s): [id number] cc: Mychal Long MD; Vee Castano NP [...] MD in OV> 05/14/231641 DD/ 162 TD/TT: Volunteer Services Assistant: DORITA Procedure Note Donotuseinterpreter, Image - 05/14/[address] [address] XRay Report Signed Patient: Elaine RodasMR#: [id number] : 1970Acct:[id number] Age/Sex: 52 / FADM Date: 05/14/23 Loc: .ED Attending Dr: Ordering Physician: Vee Castano NP Date of Service: 05/14/23 Procedure(s): XR chest 2V Accession Number(s): [id number] cc: Mychal Long MD; Vee Castano NP [...] MD in OV> 05/14/231641 DD/ 1624 TD/TT: Volunteer Services Assistant: DORITA [facility] External Provider IMG XR PROCEDURES Edited Result - Final * XR Foot 3+ Views Right (05/10/2023 11:44 AM EDT) Anatomical Region Laterality Modality Lower Extremities, Foot Right Radiogra phic Imaging 05/10/2023 11:4 4 AM EDT Narrative 05/10/2023 12:08 PM EDT [address] [address] XRay Report Signed Patient: Elaine Rodas MR#: [id number] : 1970 Acct:[id number] Age/Sex: 52 / F ADM Date: 05/10/23 Loc: HOWILLISCX Attending Dr: Mychal Long MD Ordering Physician: Mychal Long MD Date of Service: 05/10/23 Procedure(s): XR foot RT min 3V Accession Number(s): [id number] cc: Mychal Long MD EXAMINATION: XR FOOT, [...] in OV> 05/10/23 1205 DD/ 1144 TD/TT: Volunteer Services Assistant: YULISSA Procedure Note Donotuseinterpreter, Image - 05/10/[address] [address] XRay Report Signed Patient: Elaine RodasMR#: [id number] : 1970Acct:[id number] Age/Sex: 52 / FADM Date: 05/10/23 Loc: HOWILLISCX Attending Dr: Mychal Long MD Ordering Physician: Mychal Long MD Date of Service: 05/10/23 Procedure(s): XR foot RT min 3V Accession Number(s): [id number] cc: Mychal Long MD EXAMINATION: XR FOOT, [...] in OV> 05/10/23 1205 DD/ 1144 TD/TT: Volunteer Services Assistant: YULISSA us Mychal Morris MD IMG XR PROCEDURES Fin al Result * FL Esophagus Barium Swallow w/Air (05/08/2023 10:19 AM EDT) Anatomical Region Laterality Modality Head, Neck Radiographic Hilda ging 05/08/2023 10:1 9 AM EDT Narrative 05/08/2023 4:35 PM EDT [place] [address] Fluoroscopy Report Signed Patient: Elaine Rodas MR#: [id number] : 1970 Acct:[id number] Age/Sex: 52 / F ADM Date: 05/08/23 Loc: HO.REYAY Attending Dr: Mychal Long MD Ordering Physician: Mychal Long MD Date of Service: 05/08/23 Procedure(s): FL barium swallow with air Accession Number(s): [id number] cc: Mychal Long MD EXAMINATION: XR FLUOROSCOPY [...] in OV> 05/08/23 1632 DD/ 1019 TD/TT: Volunteer Services Assistant: Procedure Note Donotuseinterpreter, Image - 05/08/2023 [place] [address] Fluoroscopy Report Signed Patient: Elaine RodasMR#: [id number] : 1970Acct:[id number] Age/Sex: 52 / FADM Date: 05/08/23 Loc: HO.XRAY Attending Dr: Mychal Long MD Ordering Physician: Mychal Long MD Date of Service: 05/08/23 Procedure(s): FL barium swallow with air Accession Number(s): [id number] cc: Mychal Long MD EXAMINATION: XR FLUOROSCOPY [...] in OV> 05/08/23 1632 DD/ 1019 TD/TT: Volunteer Services Assistant: us Mychal Morris MD IMG FLUOROSCOPY PROCE CECILIO Final Result documented in this encounter Visit Diagnoses Diagnosis 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 documented in this encounter Additional Health Concerns Assessment Noted Time PHQ-9 Depression Total Score: 8 02/09/20 23 11:04 AM EDT documented as of this encounter Care Teams Motor Generator Set Operator Relationship Specialty Start Date End Date Mychal Fields MD [address] [place] [phone] PCP - General Internal Medicine 04/30/14 Hima Fam FNP [address] [place] [address] Nurse Practitioner Family Medicine 08/01/23 Yaneth Dotson RN [address] [place] [address] Registered Nurse Family Medicine 02/24/25 Mckenzie Silverio 02/24/25 [employer] 02/13/25 03/29/25 documented as of this encounter
--- OUTSIDE RECORDS SUMMARY | 2025-06-10 16:32 | XMS_ITS | Encounter Summary ---
Author Organization [employer] Address [address] [place] [address] 7t [place] [address] Care Team Providers Care Salvation Army Officer Name Role Phone Mychal Fields MD Primary Care Provide r Hima Fam Unavailable Unavailable Yaenth Dotson RN Unavailable [phone] Mckenzie Silverio Unavailable Encounter Details Date Type Department Care Team (Late st Contact Info) Description 12/05/2022 Orders Only [facility] [address] [place] [address] Veda Isabel LPN Social History Tobacco Use [...] Description 07/24/2025 2:00 PM EST Office Visit [facility] [address] [place] [address] [phone] Manjeet Deluca MD [address] [place] [address] [phone] 08/18/2025 2:15 PM EST Office Visit [facility] [address] [place] [address] Mychal Fields MD [address] [place] [address] documented as of this encounter Visit Diagnoses Not on filedocumented in this encounter Additional Health Concerns Assessment Noted Time PHQ-9 Depression Total Score: 7 10/09/19 23 4:00 PM EST documented as of this encounter Care Teams Salvation Army Officer Relationship Specialty Start Date End Date Mychal Fields MD [address] [place] [address] PCP - General Internal Medicine 04/30/14 Hima Fam FNP [address] [place] [address] Nurse Practitioner Family Medicine 08/01/23 Yaneth Dotson, ALAN [address] [place] [address] Registered Nurse Family Medicine 02/24/25 Mckenzie Silverio 02/24/25 [employer] 02/13/25 03/29/25 documented as of this encounter
--- OUTSIDE RECORDS SUMMARY | 2025-06-10 16:32 | XMS_ITS | Encounter Summary ---
Author Organization [employer] Address [address] [place] [address] 7t [place] [address] Care Team Providers Care Chronometer Assembler And Adjuster Name Role Phone Mychal Fields MD Primary Care Provide r Hima Fam Unavailable Unavailable Yaneth Dotson RN Unavailable Mckenzie Silverio Unavailable Encounter Details Date Type Department Care Team (Late st Contact Info) Description 06/05/2025 Telephone [facility] [address] [place], [place] [phone] Mychal Fields MD [address] [place], [place] [phone] Social History Tobacco Use Types Packs/Day Years [...] to Elaine Rodas to triage below at [phone]. Reports seen at [facility] ER for elevatedD-Dimer. Pt diagnosis with ground [...] donot improve tonight. Pt agrees to seek [facility] for care.. To call pulmo and [...] stated she went to the er [facility] and stillnot feeling good. Ma explain to pt that message will be forward to nurse a nurse will call ptPt agreed with plan documented in this encounter Plan of Treatment Upcoming Encounters Date Type Department Care Team (Late st Contact Info) Description 07/24/2025 2:00 PM EST Office Visit [facility]INE [address] [place] [address] Manjeet Deluca MD [address] [place] [address] 08/18/2025 2:15 PM EST Office Visit [facility] [address] [place] [address] Mychal Fields MD [address] [place] [address] documented as of this encounter Visit Diagnoses Not on filedocumented in this encounter Additional Health Concerns Assessment Noted Time PHQ-9 Depression Total Score: 15 025 12:51 PM EDT documented as of this encounter Care Teams Chronometer Assembler And Adjuster Relationship Specialty Start Date End Date Mychal Fields MD [address] [place] [address] PCP - General Internal Medicine 04/30/14 Hima Fam FNP [address] [place] [address] Nurse Practitioner Family Medicine 08/01/23 Yaneth Dotson, ALAN [address] [place] [address] Registered Nurse Family Medicine 02/24/25 Mckenzie Silverio 02/24/25 documented as of this encounter
--- OUTSIDE RECORDS SUMMARY | 2025-06-10 16:32 | XMS_ITS | Encounter Summary ---
Author Organization [employer] Address [address] [place] [address] 7t [place] [address] Care Team Providers Care Electric Motors Salesperson Name Role Phone Mychal Fields MD Primary Care Provide r Hima Fma Unavailable Unavailable Yaneth Dotson RN Unavailable [phone] Mckenzie Silverio Unavailable Reason for Visit * Reason Comments Med Refill Encounter Details Date Type Department Care Team (Late st Contact Info) Description 07/27/2023 Refill [facility] [address] [place], [place] [phone] Mychal Fields MD [address] [place], [place] [phone] Social History Tobacco Use Types Packs/Day Years [...] 07/24/2025 2:00 PM EST Office Visit [facility]ICINE [address] [place] [address] Manjeet Deluca MD [address] [place] [address] 08/18/2025 2:15 PM EST Office Visit [facility] [address] [place] [address] Mychal Fields MD [address] [place] [address] documented as of this encounter Visit Diagnoses Not on filedocumented in this encounter Additional Health Concerns Assessment Noted Time PHQ-9 Depression Total Score: 0 05/10/20 23 10:38 AM EDT documented as of this encounter Care Teams Electric Motors Salesperson Relationship Specialty Start Date End Date Mychal Fields MD [address] [place] [address] PCP - General Internal Medicine 04/30/14 Hima Fam FNP [address] [place] [address] Nurse Practitioner Family Medicine 08/01/23 Yaneth Dotson, ALAN [address] [place] [address] Registered Nurse Family Medicine 02/24/25 Mckenzie Silverio 02/24/25 [employer] 02/13/25 03/29/25 documented as of this encounter
--- OUTSIDE RECORDS SUMMARY | 2025-06-10 16:32 | XMS_ITS ---
Author Organization [employer] Address [address] [place] [address] 7t [place] [address] Care Team Providers Care Tower Helper Name Role Phone Mychal Fields MD Primary Care Provide r Hima Fam Unavailable Unavailable Yaneth Dotson RN Unavailable [phone] Mckenzie Silverio Unavailable CM Complex Status:Enrolled (Active) Start date:02/24/2025 Enrollment date:03/04/2025 Enrollment reason:ADT Feed Overview ED- Pt went to [facility] ED on 02/23/25. Case Team Name Relationship Phone Yaneth Dotson RN(Responsible Staff) Registered Nurse [phone] Continued Care and Services Coordination
--- OUTSIDE RECORDS SUMMARY | 2025-06-10 16:32 | XMS_ITS | Encounter Summary ---
Author Organization [employer] Address [address] [place] [address] 7t [place] [address] Care Team Providers Care Underground Heavy Equipment Operator Name Role Phone Mychal Fields MD Primary Care Provide r Hima Fam Unavailable Unavailable Yaneth Dotson RN Unavailable [phone] Mckenzie Silverio Unavailable Reason for Visit * Reason Comments Med Change Request Encounter Details Date Type Department Care Team (Late Contact Info) Description 10/19/2022 Refill [facility] [address] [place] [address] [phone] Mychal Fields MD [address] [place] [address] [phone] Fibromyalgia Social History Tobacco Use Types Packs/Day [...] Description 07/24/2025 2:00 PM EST Office Visit [facility] [address] [place] [address] [phone] Manjeet Deluca MD [address] [place], [place] [phone] 08/18/2025 2:15 PM EST Office Visit [facility] [address] [place] [address] Mychal Fields MD [address] [place] [address] documented as of this encounter Visit Diagnoses Diagnosis Fibromyalgia Unspecified myalgia and myositis documented in this encounter Additional Health Concerns Assessment Noted Time PHQ-9 Depression Total Score: 7 10/09/19 23 4:00 PM EST documented as of this encounter Care Teams Underground Heavy Equipment Operator Relationship Specialty Start Date End Date Mychal Fields MD [address] [place] [address] PCP - General Internal Medicine 04/30/14 Hima Fam FNP [address] [place] [address] Nurse Practitioner Family Medicine 08/01/23 Yaneth Dotson, ALAN [address] [place] [address] Registered Nurse Family Medicine 02/24/25 Mckenzie Silverio 02/24/25 [employer] 02/13/25 03/29/25 documented as of this encounter
--- OUTSIDE RECORDS SUMMARY | 2025-06-10 16:32 | XMS_ITS | Encounter Summary ---
Author Organization [employer] Address [address] [place] [address] 7t [place] [address] Care Team Providers Care Welcome Center Agent Name Role Phone Mychal Fields MD Primary Care Provide r Hima Fam Unavailable Unavailable Yaneth Dotson RN Unavailable [phone] Mckenzie Silverio Unavailable Reason for Visit * Reason Comments Med Refill Encounter Details Date Type Department Care Team (Late st Contact Info) Description 10/06/2024 Refill [facility] [address] [place], [place] [phone] Mychal Fields MD [address] [place] [address] Anxiety and depression Social History Tobacco Use [...] the past 12 months, has t he [employer], gas, oil or water company threatened to [...] 2:00 PM EST Office Visit [facility] [address] [place] [address] Manjeet Deluca MD [address] [place] [address] 08/18/2025 2:15 PM EST Office Visit [facility] [address] [place] [address] Mychal Fields MD [address] [place] [phone] documented as of this encounter Visit Diagnoses Diagnosis Anxiety and depression documented in this encounter Additional Health Concerns Assessment Noted Time PHQ-9 Depression Total Score: 6 09/16/19 25 10:06 AM EST documented as of this encounter Care Teams Welcome Center Agent Relationship Specialty Start Date End Date Mychal Fields MD [address] [place] [address] PCP - General Internal Medicine 04/30/14 Hima Fam FNP [address] [place] [address] Nurse Practitioner Family Medicine 08/01/23 Yaneth Dotson RN [address] [place] [address] Registered Nurse Family Medicine 02/24/25 Mckenzie Silverio 02/24/25 [employer] 02/13/25 03/29/25 documented as of this encounter
--- OUTSIDE RECORDS SUMMARY | 2025-06-10 16:32 | XMS_ITS | Encounter Summary ---
Author Organization [employer] Address [address] [place] [address] 7t [place] [address] Care Team Providers Care Diamond Die Driller Name Role Phone Mychal Fields MD Primary Care Provide r Hima Fam Unavailable Unavailable Yaneth Dotson RN Unavailable [phone] Mckenzie Silverio Unavailable Reason for Visit * Reason Onset Date Comments Med Refill 04/30/2025 Encounter Details Date Type Department Care Team ([facility] st Contact Info) Description 04/30/2025 Telephone [facility] [address] [place], [place] [phone] Mychal Fields MD [address] [place], [place] [phone] Med Refill Social History Tobacco Use Types [...] 1 MG tablet To be sent to: [facility]/pharmacy #[id number] documented in this encounter Plan of Treatment Upcoming Encounters Date Type Department Care Team (Late st Contact Info) Description 07/24/2025 2:00 PM EST Office Visit [facility] [address] [place] [phone] Manjeet Deluca MD [address] [place] [address] 08/18/2025 2:15 PM EST Office Visit [facility] [address] [place] [address] Mychal Fields MD [address] [place] [address] documented as of this encounter Visit Diagnoses Not on filedocumented in this encounter Additional Health Concerns Assessment Noted Time PHQ-9 Depression Total Score: 15 025 12:51 PM EDT documented as of this encounter Care Teams Diamond Die Driller Relationship Specialty Start Date End Date Mychal Fields MD [address] [place] [phone] PCP - General Internal Medicine 04/30/14 Hima Fam FNP [address] [place] [phone] Nurse Practitioner Family Medicine 08/01/23 Yaneth Dotson, ALAN [address] [place] [address] Registered Nurse Family Medicine 02/24/25 Mckenzie Silverio 02/24/25 documented as of this encounter
--- OUTSIDE RECORDS SUMMARY | 2025-06-10 16:32 | XMS_ITS | Encounter Summary ---
Author Organization [employer] Address [address] [place] [address] 7 [place] [address] Care Team Providers Care Apprentice Photographer Name Role Phone Mychal Fields MD Primary Care Provide r Hima Fam Unavailable Unavailable Yaneth Dotson RN Unavailable [phone] Mckenzie Silverio Unavailable Encounter Details Date Type Department Care Team (Late st Contact Info) Description 12/04/2022 Telephone [facility] [address] [place] [address] [phone] Mychal Fields MD [address] [place] [address] [phone] Social History Tobacco Use Types Packs/Day Years [...] 2:00 PM EST Office Visit [facility] [address] [place] [address] [phone] Manjeet Deluca MD [address] [place], [place] [phone] 08/18/2025 2:15 PM EST Office Visit [facility] [address] [place], [place] [phone] Mychal Fields MD [address] [place] [phone] documented as of this encounter Visit Diagnoses Not on filedocumented in this encounter Additional Health Concerns Assessment Noted Time PHQ-9 Depression Total Score: 7 10/09/19 23 4:00 PM EST documented as of this encounter Care Teams Apprentice Photographer Relationship Specialty Start Date End Date Mychal Fields MD [address] [place] [phone] PCP - General Internal Medicine 04/30/14 Hima Fam FNP [address] [place] [address] 65[address] Nurse Practitioner Family Medicine 08/01/23 Yaneth Dotson, ALAN [address] [place] [phone] Registered Nurse Family Medicine 02/24/25 Mckenzie Silverio 02/24/25 [employer] 02/13/25 03/29/25 documented as of this encounter
--- OUTSIDE RECORDS SUMMARY | 2025-06-10 16:32 | XMS_ITS | Encounter Summary ---
Author Organization [employer] Address [address] [place] [address] 7t [place] [address] Care Team Providers Care Optometrist Name Role Phone Mychal Fields MD Primary Care Provide r Hima Fam Unavailable Unavailable Yaneth Dotson RN Unavailable [phone] Mckenzie Silverio Unavailable Reason for Visit * Reason Comments Med Refill Encounter Details Date Type Department Care Team (Late st Contact Info) Description 07/27/2023 Refill [facility] [address] [place], [place] [phone] Mychal Fields MD [address] [place], [place] [phone] Social History Tobacco Use Types Packs/Day Years [...] Description 07/24/2025 2:00 PM EST Office Visit [facility] [address] [place] [address] Manjeet Deluca MD [address] [place] [address] 08/18/2025 2:15 PM EST Office Visit [facility] [address] [place] [address] Mychal Fields MD [address] [place] [address] documented as of this encounter Visit Diagnoses Not on filedocumented in this encounter Additional Health Concerns Assessment Noted Time PHQ-9 Depression Total Score: 0 05/10/20 23 10:38 AM EDT documented as of this encounter Care Teams Optometrist Relationship Specialty Start Date End Date Mychal Fields MD [address] [place] [address] PCP - General Internal Medicine 04/30/14 Hima Fam FNP [address] [place] [address] 49355 Nurse Practitioner Family Medicine 08/01/23 Yaneth Dotson, ALAN [address] [facility] [address] Registered Nurse Family Medicine 02/24/25 Mckenzie Silverio 02/24/25 [employer] 02/13/25 03/29/25 documented as of this encounter
--- OUTSIDE RECORDS SUMMARY | 2025-06-10 16:32 | XMS_ITS | Encounter Summary ---
Author Organization [employer] Address [address] [place] [address] 7[address] [place] [address] Care Team Providers Care Trim Carpenter Name Role Phone Mychal Fields MD Primary Care Provide r Hima Fam Unavailable Unavailable Yaneth Dotson RN Unavailable [phone] Mckenzie Silverio Unavailable Reason for Visit * Reason Comments Care Coordination SDOH f/u Encounter Details Date Type Department Care Team (Latest Contact Info) Description 06/10/2025 Patient Outreach [facility] [address] [place], [place] [phone] Mychal Fields MD [address] [place] [address] Care Coordination (SDOH f/u) Social History Tobacco [...] encounter Progress Notes * Mckenzie Silverio - 06/10/2025 11:30 AM EDT CHW Mckenzie Silverio placed outbound call to patient to follow up on SDOH needs. Patient's name, and address confirmed. Patient states is doing well. CHW submitted referral to [facility] program for foodinsecurity and will get a call from the program if she is eligible. CHW also submitted PT1 for pulmonary [address] [facility] and was approved, patient will call me with appointment details so I can help her schedule the PT1. No further questions or concerns. CHW reinforced direct contact information or CM for any additional questions or concerns and extended clinic hours on Mondays and Wednesdays, and [facility]. Patient provided with after-hours line for [facility], , which offer night time triage service and option to transfer to communications attendant provider if needed. Patient verbalizes understanding, and able to repeat back to tag writer. A follow up call willbe placed within 10 days, patient agrees with plan. documented in this encounter Plan of Treatment Upcoming Encounters Date Type Department Care Team (Late st Contact Info) Description 07/24/2025 2:00 PM EST Office Visit [facility] [address] [place] [phone] Manjeet Deluca MD [address] [place] [phone] 08/18/2025 2:15 PM EST Office Visit [address] [phone] Mychal Fields MD [address] [place] [address] documented as of this encounter Visit Diagnoses Not on filedocumented in this encounter Additional Health Concerns Assessment Noted Time PHQ-9 Depression Total Score: 15 025 12:51 PM EDT documented as of this encounter Care Teams Trim Carpenter Relationship Specialty Start Date End Date Mychal Fields MD [address] [place] [phone] PCP - General Internal Medicine 04/30/14 Hima Fam FNP [address] [place] [phone] Nurse Practitioner Family Medicine 08/01/23 Yaneth Dotson, ALAN [address] [place] [address] Registered Nurse Family Medicine 02/24/25 Mckenzie Silverio 02/24/25 documented as of this encounter
--- OUTSIDE RECORDS SUMMARY | 2025-06-10 16:32 | XMS_ITS | Encounter Summary ---
Author Organization [employer] Address [address] [place] [address] 7t [place] [address] Care Team Providers Care Director Of Social Services Name Role Phone Mychal Fields MD Primary Care Provide r Hmia Fam Unavailable Unavailable Yaneth Dotson RN Unavailable Mckenzie Silverio Unavailable Reason for Visit * Reason Onset Date Comments august recall 06/05/2025 Encounter Details Date Type Department Care Team ([facility] st Contact Info) Description 06/05/2025 Telephone [facility] [address] [place], [place] [phone] Mychal Fields MD [address] [place], [place] [phone] august recall Social History Tobacco Use Types [...] Description 07/24/2025 2:00 PM EST Office Visit [facility] [address] [place] [phone] Manjeet Deluca MD [address] [place] [address] 08/18/2025 2:15 PM EST Office Visit [facility] [address] [place] [address] [phone] Mychal Fields MD [address] [place] [address] documented as of this encounter Visit Diagnoses Not on filedocumented in this encounter Additional Health Concerns Assessment Noted Time PHQ-9 Depression Total Score: 15 025 12:51 PM EDT documented as of this encounter Care Teams Director Of Social Services Relationship Specialty Start Date End Date Mychal Fields MD [address] [place] [address] PCP - General Internal Medicine 04/30/14 Hima Fam FNP [address] [place] [address]53 Nurse Practitioner Family Medicine 08/01/23 Yaneth Dotson RN [address] [place] [phone] Registered Nurse Family Medicine 02/24/25 Mckenzie Silverio 02/24/25 documented as of this encounter
--- OUTSIDE RECORDS SUMMARY | 2025-06-10 16:32 | XMS_ITS | Clinical Summary ---
Author Organization [facility] 299 [facility] Address [address] [place] [address] Phone Care Team Providers Care [employer] Name Role Phone Mychal Long MD Primary [...] She is requesting the clinic in the [facility]. Patient may follow-up with us here in [...] her lung cancer screening program here at [facility] with her LDCT due December 2025. Patient may follow-up with us here in thoracic surgery on an as-needed basis going forward. 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 Emergency [address] [place] [phone] Macrina Valiente MD Positive D dimer (Primary Dx); Pleural effusion, bilateral; Ground glass opacity present on imaging of lung Discharge Disposition: Home or Self Care 05/29/2025 3:00 PM EDT Office Visit Pulmonology - [address] [phone] Rosy Rhodes MD Bilateral pleural effusion (Primary Dx); Chest pain on breathing 05/29/2025 Telephone Pulmonology [facility] [address] [place] [phone] Rosy Rhodes MD 05/01/2025 4:31 PM EDT - 05/01/2025 11:59 PM EDT Hospital Encounter [facility] Xray [address] [place] [address] Bilateral pleural effusion Discharge Disposition: Home or Self Care 05/01/2025 3:00 PM EDT Office Visit Pulmonology [facility] [address] [phone] Rosy Rhodes MD Bilateral pleural effusion (Primary Dx) 03/25/2025 Telephone Pulmonology [facility] [address] [phone] Kylie Simons [place] 03/24/2025 5:49 PM EDT - 03/24/2025 11:59 PM EDT Hospital Encounter 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) from Last 3 Months Surgical History [...] 3:00 PM EDT Office Visit Pulmonology - [address] [phone] Rosy Rhodes MD [address] [place] [address] Health Maintenance Due Date Last Done Comments [...] 05/01/2025 4:36 PM EDT Bilateral pleural effusion AZ THORACENTESIS PLEURAL SPACE NEEDLE/CATH ASPIRATION W IMAGING GUIDANCE Routine 05/01/2025 4:29 PM EDT Bilateral pleural effusion AZ THORACENTESIS PLEURAL SPACE NEEDLE/CATH ASPIRATION W IMAGING [...] 05/01/2025 3:00 PM EDT Bilateral pleural effusion AZ THORACENTESIS PLEURAL SPACE NEEDLE/CATH ASPIRATION W IMAGING [...] CBC auto differential (05/29/2025 3:41 PM EDT) [facility] Signature WBC 8.9 4.8 - 10.8 K/mcL LAB HEMETOLOGY METHOD 05/29/2025 4:16 PM EDT [facility] RBC 4.10 3.80 - 4.80 M/mcL LAB HEMETOLOGY METHOD 05/29/2025 4:16 PM EDT [facility] Hemoglobin 11.1(L) 11.5 - 16.0 g/dL LAB HEMETOLOGY METHOD 05/29/2025 4:16 PM EDT [facility] Hematocrit 34.2(L) 35.0 - 47.0 % LAB HEMETOLOGY METHOD 05/29/2025 4:16 PM EDT [facility] MCV 83.6 79.0 - 98.0 FL LAB HEMETOLOGY METHOD 05/29/2025 4:16 PM EDT [facility] MCH 27.1 27.0 - 32.0 pcg LAB HEMETOLOGY METHOD 05/29/2025 4:16 PM EDT [facility] MCHC 32.5 32.0 - 37.0 g/dL LAB HEMETOLOGY METHOD 05/29/2025 4:16 PM EDT [facility] RDW 14.0 11.0 - 15.0 % LAB HEMETOLOGY METHOD 05/29/2025 4:16 PM EDT [facility] Platelets 390 130 - 400 K/mcL LAB HEMETOLOGY METHOD 05/29/2025 4:16 PM EDT [facility] MPV 9.1 7.0 - 11.0 FL LAB HEMETOLOGY METHOD 05/29/2025 4:16 PM EDT [facility] NRBC 0.0 <1.0 % LAB HEMETOLOGY METHOD 05/29/2025 4:16 PM EDT [facility] NRBC Absolute 0.00 <0.10 K/mcL LAB HEMETOLOGY METHOD 05/29/2025 4:16 PM EDT [facility] Neutrophils Relative 58.6 % LAB HEMETOLOGY METHOD 05/29/2025 4:16 PM EDT [facility] Lymphocytes Relative 30.4 % LAB HEMETOLOGY METHOD 05/29/2025 4:16 PM EDT [facility] Monocytes Relative 4.4 % LAB HEMETOLOGY METHOD 05/29/2025 4:16 PM EDT [facility] Eosinophils Relative 5.5 % [facility] Basophils Relative 0.8 % LAB HEMETOLOGY METHOD 05/29/2025 4:16 PM [facility] Immature Granulocytes Relative 0.3 % LAB HEMETOLOGY METHOD 05/29/2025 4:16 PM [facility] Neutrophils Absolute 5.20 1.50 - 7.00 K/mcL LAB HEMETOLOGY METHOD 05/29/2025 4:16 PM [facility] Lymphocytes Absolute 2.70 1.00 - 5.00 K/mcL LAB HEMETOLOGY METHOD 05/29/2025 4:16 PM EDT [facility] Monocytes Absolute 0.39 0.20 - 1.00 K/mcL LAB HEMETOLOGY METHOD 05/29/2025 4:16 PM EDT [facility] Eosinophils Absolute 0.49 0.00 - 0.50 K/mcL LAB HEMETOLOGY METHOD 05/29/2025 4:16 PM [facility] Basophils Absolute 0.07 0.00 - 0.20 K/mcL LAB HEMETOLOGY METHOD 05/29/2025 4:16 PM EDT [facility] Immature Granulocytes Absolute 0.03 0.00 - 0.03 K/mcL LAB HEMETOLOGY METHOD 05/29/2025 4:16 PM EDT [facility] Blood Venous blood specimen / Unknown Venipuncture / Unknown 05/29/2025 3:41 PM EDT 05/29/2025 4:05 PM EDT Rosy Rhodes MD LAB BLOOD ORDERABLES Final Result Performing Organization Address [facility] Co de Phone Number [facility] [address] [place] [address], [place] [phone] * (ABNORMAL) D-Dimer (05/29/2025 3:41 PM EDT) Pathologist [facility] D-Dimer, Quant (D-DU) 3,062(H) <=230 ng/mL DDU LAB COAGULATION METHOD 05/29/2025 4:20 PM EDT [facility] Blood Venous blood specimen / Unknown Venipuncture / Unknown 05/29/2025 3:41 PM EDT 05/29/2025 4:05 PM EDT Narrative [facility] - 05/29/2025 4:20 PM EDT D-Dimer <230 ng/mL (D-Dimer units) is the threshold for exclusion of DVT/PE. D-Dimer may be elevated in: Critically ill, severely infected, trauma patients, DIC, acute CVA, acute [place], unstable angina, AF, old age, , and smoking. D-Dimer may be decreased with: Initiation of heparin therapy and oral anticoagulants. Rosy Rhodes MD LAB BLOOD ORDERABLES Final Result Performing Organization Address [facility]/ZIP Co de Phone Number [facility] [address] [place] [address], [place] [phone] * (ABNORMAL) Basic metabolic panel (05/29/2025 3:41 PM EDT) Pathologist [facility] Sodium 138 133 - 145 mmol/L LAB CHEMISTRY METHOD 05/29/2025 4:31 PM [facility] Potassium 4.0 3.5 - 5.5 mmol/L LAB CHEMISTRY METHOD 05/29/2025 4:31 PM [facility] Chloride 106 96 - 110 mmol/L LAB CHEMISTRY METHOD 05/29/2025 4:31 PM [facility] CO2 28 21 - 32 mmol/L LAB CHEMISTRY METHOD 05/29/2025 4:31 PM [facility] Anion Gap 4 3 - 11 LAB CHEMISTRY METHOD 05/29/2025 4:31 PM [facility] Glucose 108(H) 70 - 100 mg/dL LAB CHEMISTRY METHOD 05/29/2025 4:31 PM [facility] BUN 9 5 - 25 mg/dL LAB CHEMISTRY METHOD 05/29/2025 4:31 PM [facility] Creatinine 0.86 0.50 - 1.10 mg/dL LAB CHEMISTRY METHOD 05/29/2025 4:31 PM [facility] eGFR 80 >=60 mL/min/1. 73m2 LAB CHEMISTRY METHOD 05/29/2025 4:31 PM [facility] Comment:Calculation based on the Chronic Kidney Disease Epidemiology Collaboration (CKD-EPI) equation refit without adjustment for race. BUN/Creatinine Ratio 10.5 LAB CHEMISTRY METHOD 05/29/2025 4:31 PM [facility] Calcium 9.1 8.5 - 10.5 mg/dL LAB CHEMISTRY METHOD 05/29/2025 4:31 PM [facility] Blood Venous blood specimen / Unknown Venipuncture / Unknown 05/29/2025 3:41 PM EDT 05/29/2025 4:05 PM EDT us Rosy Rhodes MD LAB BLOOD ORDERABLES Final Result [facility] [address] [place] [address], [place] [phone] * Non-gynecologic cytology (05/05/2025 8:05 AM EDT) Only the most recent of3 resultswithin the time period is included. Final Diagnosis Pleural Fluid, Left, Thoracentesis, (ThinPrep, cell block): No malignant cells identified Eosinophils, lymphocytes and histiocytes present 05/05/2025 8:05 AM EDT [facility] Specimen A Adequacy Satisfactory for evaluation 05/05/2025 8:05 AM EDT [facility] Gross Description A. Pleural Cavity, Left, Pleural Cavity Left: Received 400ml of dark cloudy fluid 1 thin prep, 1 cell block Formalin fixation 7.5 put in formalin at 1330 05/05/2025 8:05 AM EDT [facility] Disclaimer Unless otherwise specified, all tissue is 10% NB formalin fixed and paraffin embedded. Technical cytopathology services provided by [facility], at [address] [place] [id number] (CLIA # [id number]/Jose Paula MD, Tensile Tester.) 05/05/2025 8:05 AM EDT [facility] Pleural Fluid Structure of left pleural cavity / Unknown 05/04/2025 1:00 PM EDT us Rosy Rhodes MD LAB CYTOLOGY ORDERABLES Fi nal Result [facility] [address] [place] [address], [place] [phone] * XR Chest 2 Views (05/01/2025 4:36 [...] Signed Date: 05/01/2025 16:41 ET Workstation ID: [id number] Transcribed By: Self Edit Transcribed Date: 05/01/2025 [...] Signed Date: 05/01/2025 16:41 ET Workstation ID: [id number] Transcribed By: Self Edit Transcribed Date: 05/01/2025 16:41 ET us Rosy Rhodes MD IMG XR PROCEDURES Final Re sult * AZ THORACENTESIS PLEURAL SPACE NEEDLE/CATH ASPIRATION W IMAGING GUIDANCE (05/01/2025 4:29 PM EDT) Narrative Rosy Rhodes MD - 05/01/2025 4:29 PM EDT Rosy Rhodes MD 05/01/2025 4:49 PM Thoracentesis Date/Time: 05/01/2025 4:29 PM Performed by: Rosy Rhodes MD Authorized by: Rosy Rhodes MD Consent: Consent obtained: Verbal Consent given by: Patient Risks discussed: Bleeding, pneumothorax, pain and infection Alternatives discussed: No treatment [place] protocol: Procedure explained and questions answered to [...] midscapular line Intercostal space: 7th Puncture method: [id number]-lhjomi catheter Ultrasound guidance: yes Indwelling catheter placed: no Needle gauge: 20 Catheter size: 8 Fr Number of attempts: 1 Fluid characteristics: serous. Post-procedure details: Post-procedure chest x-ray: pending. Procedure completion: Tolerated well, no immediate complications Comments: 350 mL removed, stopped for no further fluid us Rosy Rhodes MD IN CLINIC/BEDSIDE ORDERABL ES Final Result * AZ THORACENTESIS PLEURAL SPACE NEEDLE/CATH ASPIRATION W IMAGING GUIDANCE (05/01/2025 4:28 PM EDT) Rosy Nuno MD - 05/01/2025 4:28 PM EDT Rosy Rhodes MD 05/01/2025 4:49 PM Thoracentesis Date/Time: 05/01/2025 4:28 PM Performed by: Rosy Rhodes MD Authorized by: Rosy Rhodes MD Consent: Consent obtained: Verbal Consent given by: Patient Risks discussed: Bleeding, infection, pain and pneumothorax Alternatives discussed: No treatment [place] protocol: Procedure explained and questions answered to [...] midscapular line Intercostal space: 7th Puncture method: [id number]-wkk-[id number] catheter Ultrasound guidance: yes Indwelling catheter placed: [...] LAB HEMETOLOGY METHOD 05/01/2025 6:48 PM EDT [facility] Body Fluid RBC 4,000 /mm3 LAB HEMETOLOGY METHOD 05/01/2025 6:48 PM EDT [facility] Body Fluid Color Yellow 05/01/2025 6:48 PM EDT [facility] Body Fluid Clarity Cloudy 05/01/2025 6:48 PM EDT [facility] Body Fluid Source Pleural 05/01/2025 6:48 PM EDT [facility] Comment:Left Pleural Fluid Structure of left pleural cavity / Unknown 05/01/2025 3:00 PM EDT 05/01/2025 4:48 PM EDT Narrative [facility] - 05/01/2025 6:48 PM EDT No reference ranges have been established for body fluids. Clinical correlation recommended. Rosy Rhodes MD LAB BODY FLUIDS AND STOOLS ORDERABLES Final Result [facility] [address] [place] [address], [place] [phone] * Culture body fluid with gram stain (05/01/2025 3:00 PM EDT) Only the most recent of3 resultswithin the time period is included. Fluid Culture No growth at 3 days LAB MICROBIOLOGY METHOD 05/04/2025 11:15 AM EDT [facility] Gram Stain Result No polymorphonuclear leukocytes, No epithelial cells, and No organisms noted 05/04/2025 11:15 AM EDT [facility] Pleural Fluid Structure of left pleural cavity / Unknown Non-blood Collection / Unknown 05/01/2025 3:00 PM EDT 05/01/2025 4:48 PM EDT us Rosy Rhodes MD LAB MICROBIOLOGY - GENERAL ORDERABLES Final Result [facility] [address] [place] [address], [place] [phone] * Differential body fluid (05/01/2025 3:00 PM EDT) Only the most recent of3 resultswithin the time period is included. Fluid Neutrophils % 7 % 05/01/2025 6:44 PM EDT [facility] Fluid Lymphocytes % 42 % 05/01/2025 6:44 PM EDT [facility] Fluid Monocytes/Macrop hages 23 % 05/01/2025 6:44 PM EDT [facility] Fluid Eosinophils % 28 % 05/01/2025 6:44 PM EDT [facility] Fluid Basophils % 0 % 05/01/2025 6:44 PM EDT [facility] Fluid Other Cells % 0 % 05/01/2025 6:44 PM EDT [facility] Pleural Fluid Structure of left pleural cavity / Unknown 05/01/2025 3:00 PM EDT 05/01/2025 4:48 PM EDT Narrative [facility] - 05/01/2025 6:44 PM EDT No reference ranges have been established for body fluids. Clinical correlation recommended. us Rosy Rhodes MD LAB BODY FLUIDS AND STOOLS ORDERABLES Final Result [facility] [address] [place] [address], [place] [phone] * Protein, body fluid (05/01/2025 3:00 PM EDT) Only the most recent of3 resultswithin the time period is included. Protein, Fluid 5.2 See Comment g/dL LAB CHEMISTRY METHOD 05/01/2025 5:33 PM EDT [facility] Pleural Fluid Structure of left pleural cavity / Unknown Non-blood Collection / Unknown 05/01/2025 3:00 PM EDT 05/01/2025 4:48 PM EDT [facility] - 05/01/2025 5:33 PM EDT No reference ranges have been established for body fluids. Clinical correlation recommended. Rosy Rhodes MD LAB BODY FLUIDS AND STOOLS ORDERABLES Final Result [facility] [address] [place] [address], [place] [phone] * Lactate dehydrogenase, body fluid (05/01/2025 3:00 PM EDT) Only the most recent of3 resultswithin the time period is included. LD, Fluid 587 See Comment unit/L LAB CHEMISTRY METHOD 05/01/2025 5:33 PM EDT [facility] Pleural Fluid Structure of left pleural cavity / Unknown Non-blood Collection / Unknown 05/01/2025 3:00 PM EDT 05/01/2025 4:48 PM EDT [facility] - 05/01/2025 5:33 PM EDT No reference ranges have been established for body fluids. Clinical correlation recommended. Rosy Rhodes MD LAB BODY FLUIDS AND STOOLS ORDERABLES Final Result Performing Organization Address [facility]/ZIP Co de Phone Number [facility] [address] [place] [address], [place] [phone] * Glucose, body fluid (05/01/2025 3:00 PM EDT) Only the most recent of3 resultswithin the time period is included. Glucose, Fluid 103 See Comment mg/dL LAB CHEMISTRY METHOD 05/01/2025 5:33 PM EDT [facility] Pleural Fluid Structure of left pleural cavity / Unknown Non-blood Collection / Unknown 05/01/2025 3:00 PM EDT 05/01/2025 4:48 PM EDT Narrative [facility] - 05/01/2025 5:33 PM EDT No reference ranges have been established for body fluids. Clinical correlation recommended. Rosy Rhodes MD LAB BODY FLUIDS AND STOOLS ORDERABLES Final Result Performing Organization Address [facility] Co de Phone Number [facility] [address] [place] [address], [place] [phone] * [place] THORACENTESIS PLEURAL SPACE NEEDLE/CATH ASPIRATION W IMAGING [...] infection and pneumothorax Alternatives discussed: No treatment [place] protocol: Procedure explained and questions answered to [...] midscapular line Intercostal space: 8th Puncture method: Oshj-ogw-nvbsad catheter Ultrasound guidance: yes Indwelling catheter placed: [...] for malignancy JS 03/25/2025 8:49 AM EDT [facility] Pleural Fluid Structure of right pleural cavity / Unknown Non-blood Collection / Unknown 03/24/2025 5:33 PM EDT 03/24/2025 5:45 PM EDT us Rosy Rhodes MD LAB BODY FLUIDS AND STOOLS ORDERABLES Final Result [facility] [address] [place] [address], [place] [phone] * Triglycerides, body fluid (03/24/2025 5:33 PM EDT) Triglycerides , Fluid 36 See Comment mg/dL LAB CHEMISTRY METHOD 03/25/2025 12:15 PM EDT [facility] Pleural Fluid Structure of right pleural cavity / Unknown Non-blood Collection / Unknown 03/24/2025 5:33 PM EDT 03/24/2025 5:45 PM EDT Narrative [facility] - 03/25/2025 12:15 PM EDT No reference ranges have been established for body fluids. Clinical correlation recommended. Rosy Rhodes MD LAB BODY FLUIDS AND STOOLS ORDERABLES Final Result [facility] [place] ([facility]) [facility] [address] [place] [address], * External CT Report (03/17/2025) Anatomical Region [...] currently active code status orders. Care Teams [employer] Relationship Specialty Start Date End Date Mychal Long MD [address] [place] [address] [place] [address] PCP - General 12/26/11
--- OUTSIDE RECORDS SUMMARY | 2025-06-10 16:32 | XMS_ITS | Encounter Summary ---
Author Organization [employer] Address [address] [place] [address] [address] [place] [address] Care Team Providers Care Circulation Worker Name Role Phone Mychal Fields MD Primary Care Provide r Hima Fam Unavailable Unavailable Yaneth Dotson RN Unavailable [phone] Mckenzie Silverio Unavailable Reason for Visit * Reason Onset Date Comments PRE OP 11/10/2024 Encounter Details Date Type Department Care Team ([facility] st Contact Info) Description 11/10/2024 Telephone [facility] MEDICINE [address] [place], [place] [phone] Mychal Fields MD [address] [place], [place] [phone] PRE OP Social History Tobacco Use Types [...] No Surgeon's name: Dino Caruso Facility name: [facility] Surgeon's office number: [phone] Surgeon's office fax number: [phone] Contact name (person you spoke with): Karon [...] 07/24/2025 2:00 PM EST Office Visit [address] [address] Manjeet Deluca MD [address] [place] [address] 08/18/2025 2:15 PM EST Office Visit [address] [address] Mychal Fields MD [address] [place] [address] documented as of this encounter Visit Diagnoses Not on filedocumented in this encounter Additional Health Concerns Assessment Noted Time PHQ-9 Depression Total Score: 6 09/16/19 25 10:06 AM EST documented as of this encounter Care Teams Circulation Worker Relationship Specialty Start Date End Date Mychal Fields MD [address] [place] [address] PCP - General Internal Medicine 04/30/14 Hima Fam FNP [address] [place] [address] Nurse Practitioner Family Medicine 08/01/23 Yaneth Dotson, RN [address] [place] [address] Registered Nurse Family Medicine 02/24/25 Mckenzie Silverio 02/24/25 [employer] 02/13/25 03/29/25 documented as of this encounter
== END 2025-06-10 16:38 | disposition home or self-care (01) ==
LOC: HO.HGI 15:56
PROVIDERS: PCP Internal Medicine; Visit Provider Nurse Practitioner
DX: K58.2 Mixed irritable bowel syndrome (principal); R11.2 Nausea with vomiting, unspecified; K29.60 Other gastritis without bleeding
CPT/HCPCS: 99213

== ENCOUNTER → 2025-06-10 15:55 | Outpatient (BNVA) | payer MEDICAID, SELFPAY | PROVIDERS: PCP Internal Medicine; Visit Provider Nurse Practitioner | DX: K29.60 Other gastritis without bleeding (principal); R11.2 Nausea with vomiting, unspecified; K58.2 Mixed irritable bowel syndrome | CPT/HCPCS: 99212 ==

== ENCOUNTER 2025-06-30 09:51 | Outpatient (REF) | payer MEDICAID, SELFPAY ==
--- NOTE | ~2025-06-30 | XR_ITS ---
EXAMINATION: XR CHEST CLINICAL INFORMATION: Hx of pneumonia 1 month ago COMPARISON: Previous chest x-ray most recent March [address] most recent May 2025 TECHNIQUE: 2 views of the chest were obtained. FINDINGS: The lungs are clear. No pulmonary edema or consolidation. Blunting of both costophrenic angles suggestive of very small bilateral pleural effusions. No pneumothorax. Cardiac and mediastinal contours are normal. Degenerative changes of the spine. XR/XR chest 2V IMPRESSION: No evidence of pneumonia. Very small bilateral pleural effusions. Electronically signed by: Lydia Oneal MD 06/30/2025 10:15 AM EDT
[2025-06-30 11:37] LABS: MANUAL DIFF FLAG NO
[2025-06-30 11:52] LABS: Hematocrit 35.6 % (37.0-47.0); Hemoglobin 11.6 g/dl (12.0-16.0); Imm Gran Abs Auto 0.04 X10*3/uL (0.00-0.03); Imm Gran Pct Auto 0.4 % (0.0-0.4); Lymphocytes Absolute Auto 3.8 X10*3/uL (1.2-4.9); Mean Corpuscular HGB Conc 32.6 g/dl (31.0-35.0); Mean Corpuscular Hemoglobin 27.5 pg (27.0-33.0); Mean Corpuscular Volume 84.4 fL (80.0-98.0); NRBC Abs Auto 0.000 X10*3/uL (0.0-0.012); NRBC Pct Auto 0.0 /100WBC (0.0-0.2); Platelet Count 274 X10*3/uL (160-400); Red Blood Count 4.22 X10*6/uL (4.20-5.50); White Blood Count 10.2 X10*3/uL (4.8-10.8)
== END 2025-06-30 09:52 | disposition home or self-care (01) ==
LOC: HO.HHCL 09:51
PROVIDERS: PCP Internal Medicine; Visit Provider Internal Medicine
DX: R42 Dizziness and giddiness (principal); J18.9 Pneumonia, unspecified organism
CPT/HCPCS: 36415; 71046; 85025

== ENCOUNTER → 2025-06-30 10:00 | Outpatient (BNV) | payer MEDICAID, SELFPAY | PROVIDERS: PCP Internal Medicine; Visit Provider Radiology Diagnostic Radiology | DX: Z87.01 Personal history of pneumonia (recurrent) (principal) | CPT/HCPCS: 71046 ==

== ENCOUNTER → 2025-07-22 08:31 | Outpatient (REF) | payer MEDICAID, SELFPAY ==
--- NOTE | ~2025-07-22 | NM_ITS ---
EXAMINATION: WA RADIONUCLIDE SOLID FOOD GASTRIC EMPTYING 4-HOUR STUDY CLINICAL INFORMATION: R11.0 - Nausea COMPARISON: None TECHNIQUE: A standard meal consisting of 4 oz of Egg Beaters brand tagged with 0.95 microcuries Tc-99m Sulfur Colloid, 6 oz water and 1 slices of toast with jelly was administered orally to the patient. Images were obtained using a dual head gamma camera in the anterior and posterior projections over of the stomach immediately post ingestion and at hourly intervals. Study was terminated after 3 hours due to near complete emptying. The anterior and posterior counts at each time interval were averaged using the geometric mean and expressed as percentage of the immediate post ingestion counts. FINDINGS: There is good visualization of activity in the stomach immediately post ingestion. As the study progresses, there is good clearance of activity from the stomach and visualization of progressively increasing small bowel activity. By the end of the study, there is almost no retention noted in the stomach. Retention in the stomach at each time interval was: 1 hour 78% (normal 37%-90%) 2 hours 33% (normal 30%-60%) 3 hours 3% WA/WA gastric emptying study IMPRESSION: Normal solid food gastric emptying study. For solid meal, rapid gastric emptying is less than 30% at 60 minutes. Delayed gastric emptying criteria is more than 60% remaining at 120 minutes or more than 10% at 240 minutes. The 4-hour value is the best discriminator of a normal or abnormal result). Gastric emptying study grading per JNMT Consensus Recommendations in 2008 (https://tech.snmjournals.org/content/36/144) Grade 1 (mild retention): 11-20% at 4h Grade 2 (moderate retention): 21-35% at 4h Grade 3 (severe retention): 36-50% at 4h Grade 4 (very severe retention): >50% retention at 4h Electronically signed by: Jose Mcnamara MD 07/22/2025 12:17 PM [facility] [place] [place]
--- OUTSIDE RECORDS SUMMARY | 2025-07-22 08:49 | XMS_ITS | Encounter Summary ---
Author Organization [employer] Address [address] [place] [address] 7t [place] [address] Care Team Providers Care University Tutor Name Role Phone Mychal Fields MD Primary Care Provide r Hima Fam Unavailable Unavailable Mckenzie Silverio Unavailable [facility] Unavailable [phone] Reason for Visit * Reason Onset Date Comments Med Refill 07/16/2025 Encounter Details Date Type Department Care Team ([facility] st Contact Info) Description 07/16/2025 Telephone [facility] MEDICINE [address] [place], [place] [phone] Mychal Fields MD [address] [place], [place] [phone] Med Refill Social History Tobacco Use Types [...] encounter Miscellaneous Notes * Telephone Encounter - Veda Isabel LPN - 07/16/2025 3:29 PM EST Medication pended to PCP. * Telephone Encounter - Lalo Sparrow - 07/16/2025 3:27 PM EST TC from pt requesting medication refill. Medications needing refill : zolpidem (Ambien) 10 MG tablet To be sent to: [facility]/pharmacy #[id number] documented in this encounter Plan of Treatment Upcoming Encounters Date Type Department Care Team (Late st Contact Info) Description 07/24/2025 2:00 PM EST Office Visit [facility] MED[facility]INE [address] [place] [address] Manjeet Deluca MD [facility] [place] [phone] 08/18/2025 2:15 PM EST Office Visit [facility] [place] [address] Mychal Fields MD Jose Daniel [facility] [place] [phone] documented as of this encounter Visit Diagnoses Not on filedocumented in this encounter Additional Health Concerns Assessment Noted Time PHQ-9 Depression Total Score: 15 025 12:51 PM EDT documented as of this encounter Care Teams University Tutor Relationship Specialty Start Date End Date Mychal Fields MD [facility] [place] [address] PCP - General Internal Medicine 04/30/14 Hima Fam FNP [address] [place] [phone] Nurse Practitioner Family Medicine 08/01/23 Mckenzie Silverio 02/24/25 07/20/[address] [place] [address] Rheumatology 06/30/25 documented as of this encounter
--- OUTSIDE RECORDS SUMMARY | 2025-07-22 08:49 | XMS_ITS | Encounter Summary ---
Author Organization [employer] Address [address] [place] [address] 7t [place] [address] Care Team Providers Care Copping Machine Operator Name Role Phone Mychal Fields MD Primary Care Provide r Hima Fam Unavailable Unavailable Yaneth Dotson RN Unavailable [phone] Mckenzie Silverio Unavailable [facility] Unavailable [phone] Reason for Visit * Reason Comments Med Refill Encounter Details Date Type Department Care Team (Late st Contact Info) Description 10/05/2022 Refill [facility] MEDICINE [address] [place] [address] Hima Fam FNP Anxiety state Social History [...] 07/24/2025 2:00 PM EST Office Visit [facility] MEDICINE [address] [place] [address] Manjeet Deluca MD [address] [place] [address] 08/18/2025 2:15 PM EST Office Visit [facility] MEDICINE [address] [place] [address] Mychal Fields MD [address] [place] [address] documented as of this encounter Visit Diagnoses Diagnosis Anxiety state Anxiety state, unspecified documented in this encounter Care Teams Copping Machine Operator Relationship Specialty Start Date End Date Mychal Fields MD [address] [place] [address] PCP - General Internal Medicine 04/30/14 Hima Fam FNP [address] [place] [address] Nurse Practitioner Family Medicine 08/01/23 Yaneth Dotson, ALAN [address] [place] [address] Registered Nurse Family Medicine 02/24/25 07/09/25 Mckenzie Silverio 02/24/25 07/20/[address] [place] [address] Rheumatology 06/30/25 [facility] [facility] 02/13/25 03/29/25 documented as of this encounter
--- OUTSIDE RECORDS SUMMARY | 2025-07-22 08:49 | XMS_ITS | Encounter Summary ---
Author Organization [employer] Address [address] [place] [address] 7t [place] [address] Care Team Providers Care Molecular Biology Professor Name Role Phone Mychal Fields MD Primary Care Provide r Hima Fam Unavailable Unavailable Yaneth Dotson RN Unavailable [phone] Mckenzie Silverio Unavailable [facility] Unavailable [phone] Encounter Details Date Type Department Care Team (Late st Contact Info) Description 12/05/2022 Orders Only [facility] MED [facility] PEDS [address] [place] [address] Veda Isabel LPN Social History Tobacco Use [...] 2:00 PM EST Office Visit [facility] MEDICINE [address] [place], [place] [phone] Manjeet Deluca MD [address] [place], [place] [phone] 08/18/2025 2:15 PM EST Office Visit [facility] MEDICINE [address] [place] [address] Mychal Fields MD [address] [place] [address] documented as of this encounter Visit Diagnoses Not on filedocumented in this encounter Additional Health Concerns Assessment Noted Time PHQ-9 Depression Total Score: 7 10/09/19 23 4:00 PM EST documented as of this encounter Care Teams Molecular Biology Professor Relationship Specialty Start Date End Date Mychal Fields MD [address] [place] [address] PCP - General Internal Medicine 04/30/14 Hima Fam FNP [address] [place] [address] Nurse Practitioner Family Medicine 08/01/23 Yaneth Dotson RN [address] [place] [address] Registered Nurse Family Medicine 02/24/25 07/09/25 Mckenzie Silverio 02/24/25 07/20/[address] [place] [address] Rheumatology 06/30/25 [employer] [facility] 02/13/25 03/29/25 documented as of this encounter
--- OUTSIDE RECORDS SUMMARY | 2025-07-22 08:49 | XMS_ITS | Encounter Summary ---
Author Organization [employer] Address [address] [place] [address] 7t [place] [address] Care Team Providers Care Airset Caster Name Role Phone Mychal Fields MD Primary Care Provide r Hima Fam Unavailable Unavailable Yaneth Dotson RN Unavailable [phone] Mckenzie Silverio Unavailable [facility] Unavailable Encounter Details Date Type Department Care Team (Late st Contact Info) Description 04/24/2023 Orders Only [facility] MEDICINE [address] [place] [address] [phone] Zena Harley MD [address] [place], [place] [phone] Acquired clavicle deformity (Primary Dx) Social History [...] 07/24/2025 2:00 PM EST Office Visit [facility] MEDICINE [address] [place], [place] [phone] Manjeet Deluca MD [address] [place] [address] 08/18/2025 2:15 PM EST Office Visit [facility] MEDICINE [address] [place], [place] [phone] Mychal Fields MD [address] [place], [place] [phone] Scheduled Orders Name Type Priority Associated Diagnoses [...] PM EDT Narrative 05/14/2023 4:45 PM EDT [facility] [address] [place] [address] XRay Report Signed Patient: Elaine Rodas MR#: [id number] : 1970 Acct:[id number] Age/Sex: 52 / F ADM Date: 05/14/23 Loc: HO.ED Attending Dr: Ordering Physician: Vee Castano NP Date of Service: 05/14/23 Procedure(s): XR chest 2V Accession Number(s): [id number] cc: Mychal Long MD; Vee Castano NP [...] Lydia Oneal MD in OV> 05/14/231641 DD/ 23 TD/TT: French Folding Machine Operator: DORITA Procedure Note Donotuseinterpreter, Image - 05/14/2023 [place] [address] XRay Report Signed Patient: Elaine RodasMR#: [id number] : 1970Acct:[id number] Age/Sex: 52 / FADM Date: 05/14/23 Loc: .ED Attending Dr: Ordering Physician: Vee Castano NP Date of Service: 05/14/23 Procedure(s): XR chest 2V Accession Number(s): [id number] cc: Mychal Long MD; Vee Castano NP [...] Lydia Oneal MD in OV> 05/14/231641 DD/ 23 TD/TT: French Folding Machine Operator: DORITA [facility] External Provider IMG XR PROCEDURES Edited Result - Final * XR Foot 3+ Views Right (05/10/2023 11:44 AM EDT) Anatomical Region Laterality Modality Lower Extremities, Foot Right Radiogra phic Imaging 05/10/2023 11:4 4 AM EDT Narrative 05/10/2023 12:08 PM EDT [address] XRay Report Signed Patient: Elaine Rodas MR#: [id number] : 1970 Acct:[id number] Age/Sex: 52 / F ADM Date: 05/10/23 Loc: HO.YESSENIACX Attending Dr: Mychal Long MD Ordering Physician: Mychal Long MD Date of Service: 05/10/23 Procedure(s): XR foot RT min 3V Accession Number(s): [id number] cc: Mychal Long MD EXAMINATION: XR FOOT, [...] in OV> 05/10/23 1205 DD/ 1144 TD/TT: French Folding Machine Operator: GR Procedure Note Donotuseinterpreter, Image - 05/10/[address] [address] XRay Report Signed Patient: Elaine RodasMR#: [id number] : 1970Acct:[id number] Age/Sex: 52 / FADM Date: 05/10/23 Loc: HO.YESSENIACX Attending Dr: Mychal Long MD Ordering Physician: Mychal Long MD Date of Service: 05/10/23 Procedure(s): XR foot RT min 3V Accession Number(s): [id number] cc: Mychal Long MD EXAMINATION: XR FOOT, [...] in OV> 05/10/23 1205 DD/ 1144 TD/TT: French Folding Machine Operator: YULISSA us Mychal Morris MD IMG XR PROCEDURES Fin al Result * FL Esophagus Barium Swallow w/Air (05/08/2023 10:19 AM EDT) Anatomical Region Laterality Modality Head, Neck Radiographic Hilda ging 05/08/2023 10:1 9 AM EDT Narrative 05/08/2023 4:35 PM EDT [place] [address] Fluoroscopy Report Signed Patient: Elaine Rodas MR#: [id number] : 1970 Acct:[id number] Age/Sex: 52 / F ADM Date: 05/08/23 Loc: HO.XRAY Attending Dr: Mychal Long MD Ordering Physician: Mychal Long MD Date of Service: 05/08/23 Procedure(s): FL barium swallow with air Accession Number(s): [id number] cc: Mychal Long MD EXAMINATION: XR FLUOROSCOPY [...] in OV> 05/08/23 1632 DD/ 1019 TD/TT: French Folding Machine Operator: Procedure Note Donotuseinterpreter, Image - 05/08/2023 [place] [address] Fluoroscopy Report Signed Patient: Elaine Rodas#: [id number] : 1970Acct:[id number] Age/Sex: 52 / FADM Date: 05/08/23 Loc: HO.XRAY Attending Dr: Mychal Long MD Ordering Physician: Mychal Long MD Date of Service: 05/08/23 Procedure(s): FL barium swallow with air Accession Number(s): [id number] cc: Mychal Long MD EXAMINATION: XR FLUOROSCOPY [...] in OV> 05/08/23 1632 DD/ 1019 TD/TT: French Folding Machine Operator: us Mychal Morris MD IMG FLUOROSCOPY PROCE DURES Final Result documented in this encounter Visit Diagnoses Diagnosis 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 documented in this encounter Additional Health Concerns Assessment Noted Time PHQ-9 Depression Total Score: 8 02/09/20 23 11:04 AM EDT documented as of this encounter Care Teams Airset Caster Relationship Specialty Start Date End Date Mychal Fields MD [address] [place] [address] PCP - General Internal Medicine 04/30/14 Hima Fam FNP [address] [place] [address] Nurse Practitioner Family Medicine 08/01/23 Yaneth Dotson, ALAN [address] [place] [address] Registered Nurse Family Medicine 02/24/25 07/09/25 Mckenzie Silverio 02/24/25 07/20/[address] [place], [place] [phone] Rheumatology 06/30/25 [facility] 02/13/25 03/29/25 documented as of this encounter
--- OUTSIDE RECORDS SUMMARY | 2025-07-22 08:49 | XMS_ITS | Encounter Summary ---
Author Organization [employer] Address [address] [place] [address] 7t [place] [address] Care Team Providers Care Sheet Cutter Name Role Phone Mychal Fields MD Primary Care Provide r Hima Fam Unavailable Unavailable Yaneth Dotson RN Unavailable [phone] Mckenzie Silverio Unavailable [facility] Unavailable Encounter Details Date Type Department Care Team (Late st Contact Info) Description 12/04/2022 Telephone [facility] MEDICINE [address] [place], [place] [phone] Mychal Fields MD [address] [place], [place] [phone] Social History Tobacco Use Types Packs/Day Years [...] 07/24/2025 2:00 PM EST Office Visit [facility] MEDICINE [address] [place] [address] Manjeet Deluca MD [address] [place] [address] 08/18/2025 2:15 PM EST Office Visit [facility] MEDICINE [address] [place] [address] Mychal Fields MD [address] [place] [address] documented as of this encounter Visit Diagnoses Not on filedocumented in this encounter Additional Health Concerns Assessment Noted Time PHQ-9 Depression Total Score: 7 10/09/19 23 4:00 PM EST documented as of this encounter Care Teams Sheet Cutter Relationship Specialty Start Date End Date Mychal Fields MD [address] [place] [address] PCP - General Internal Medicine 04/30/14 Hima Fam FNP [address] [place] [address] Nurse Practitioner Family Medicine 08/01/23 Yaneth Dotson, ALAN [address] [place] [address] Registered Nurse Family Medicine 02/24/25 07/09/25 Mckenzie Silverio 02/24/25 07/20/[address] [place] [address] Rheumatology 06/30/25 [facility] 02/13/25 03/29/25 documented as of this encounter
--- OUTSIDE RECORDS SUMMARY | 2025-07-22 08:49 | XMS_ITS | Encounter Summary ---
Author Organization [employer] Address [address] [place] [address] 7t [place] [address] Care Team Providers Care Director Of Development Name Role Phone Mychal Fields MD Primary Care Provide r Hima Fam Unavailable Unavailable Yaneth Dotson RN Unavailable [phone] Mckenzie Silverio Unavailable [facility] Unavailable [phone] Reason for Visit * Reason Comments Med Refill Encounter Details Date Type Department Care Team (Late st Contact Info) Description 10/06/2024 Refill [facility] MED & PEDS [address] [place], [place] [phone] Mychal Fields MD [address] [place], [place] [phone] Anxiety and depression Social History Tobacco Use [...] Description 07/24/2025 2:00 PM EST Office Visit [facility] MEDICINE [address] [place] [address] Manjeet Deluca MD [address] [place] [address] 08/18/2025 2:15 PM EST Office Visit [facility] MEDICINE [address] [place] [address] Mychal Fields MD [address] [place] [address] documented as of this encounter Visit Diagnoses Diagnosis Anxiety and depression documented in this encounter Additional Health Concerns Assessment Noted Time PHQ-9 Depression Total Score: 6 09/16/19 25 10:06 AM EST documented as of this encounter Care Teams Director Of Development Relationship Specialty Start Date End Date Mychal Fields MD [address] [place] [address] PCP - General Internal Medicine 04/30/14 Hima Fam FNP [address] [place] [address] Nurse Practitioner Family Medicine 08/01/23 Yaneth Dotson, ALAN [address] [place] [address] Registered Nurse Family Medicine 02/24/25 07/09/25 Mckenzie Silverio 02/24/25 07/20/[address] [place] [address] Rheumatology 06/30/25 [facility] [facility] 02/13/25 03/29/25 documented as of this encounter
--- OUTSIDE RECORDS SUMMARY | 2025-07-22 08:49 | XMS_ITS | Encounter Summary ---
Author Organization [employer] Address [address] [place] [address] 7t [place] [address] Care Team Providers Care Environmental Protection Specialist Name Role Phone Mychal Fields MD Primary Care Provide r Hima Fam Unavailable Unavailable Yaneth Dotson RN Unavailable [phone] Mckenzie Silverio Unavailable [facility] Unavailable [phone] Reason for Visit * Reason Onset Date Comments Med Refill 04/30/2025 Encounter Details Date Type Department Care Team (Late st Contact Info) Description 04/30/2025 Telephone [facility] MEDICINE [address] [place], [place] [phone] Mychal Fields MD [address] [place], [place] [phone] Med Refill Social History Tobacco Use Types [...] 1 MG tablet To be sent to: [facility]/pharmacy #[id number] [place] [address] documented in this encounter Plan of Treatment Upcoming Encounters Date Type Department Care Team (Late st Contact Info) Description 07/24/2025 2:00 PM EST Office Visit [facility] MEDICINE [address] [place] [address] Manjeet Deluca MD [address] [place] [address] 08/18/2025 2:15 PM EST Office Visit [facility] MEDICINE [address] [place] [address] Mychal Fields MD [address] [place] [address] documented as of this encounter Visit Diagnoses Not on filedocumented in this encounter Additional Health Concerns Assessment Noted Time PHQ-9 Depression Total Score: 15 025 12:51 PM EDT documented as of this encounter Care Teams Environmental Protection Specialist Relationship Specialty Start Date End Date Mychal Fields MD [address] [place] [address] PCP - General Internal Medicine 04/30/14 Hima Fam FNP [address] [place] [address] Nurse Practitioner Family Medicine 08/01/23 Yaneth Dotson, ALAN [address] [place] [address] Registered Nurse Family Medicine 02/24/25 07/09/25 Mckenzie Silverio 02/24/25 07/20/[address] [place] [address] Rheumatology 06/30/25 documented as of this encounter
--- OUTSIDE RECORDS SUMMARY | 2025-07-22 08:49 | XMS_ITS | Clinical Summary ---
Author Organization [employer] Address [address] [facility] [address] [place] [address] Care Team Providers Care Engraving Patternmaker Name Role Phone Mychal Fields MD Primary Care Provide r [facility]ima Fam Unavailable Unavailable [facility] Unavailable [phone] Allergies Active Allergy Reactions Criticality Noted Date [...] in the morning. 1 kit 023 Active Diclofenac Sodium 1 % gelIndications:Ac [...] for 10 days. 30 tablet 024 Active Arnuity Ellipta 100 MCG/ACT inhaler Inhale 1 puff Once per day. 024 Active busPIRone (Buspar) 10 MG tablet Take 1 tablet by mouth if needed in the morning, at noon, and at bedtime (anxiety). 022 Active Emgality 120 MG/ML auto-injector Inject 120 mg under the skin every 30 (thirty) days. 024 Active rizatriptan COMPUTER NUMERIC CONTROL SETTER (Maxalt-COMPUTER NUMERIC CONTROL SETTER) 5 MG disintegrating tablet 024 Active varenicline (Chantix) 1 MG tabletIndications :Smoker [...] and depression TAKE 1 TABLET BY MOUTH 3 TIMES DAILY. 90 tablet 025 Active zolpidem (Ambien) 10 MG tabletIndications :Anxiety and depression TAKE 1 TABLET BY MOUTH AT BEDTIME NEEDED FOR SLEEP 30 tablet 025 Active pantoprazole (ProtoNix) 20 MG EC tablet TAKE 1 TABLET BY MOUTH 2 TIMES EVERY DAY ON AN EMPTY STOMACH 180 tablet 023 2024 Discontinued(T herapy completed) estradiol (Estrace) 0.1 MG/GM vaginal creamIndications: Atrophic vaginitis Insert 1 g vaginally twice a week 42.5 g 024 2024 Discontinued(T herapy completed) nicotine polacrilex (Nicorette) 2 MG gum Chew 2 mg every 2 (two) hours if needed. 024 2024 Discontinued(T herapy completed) terbinafine (LamISIL AT) 1 % creamIndications: Tinea Apply topically 2 times daily. 42 g 1 025 2024 Discontinued(T herapy completed) clonazePAM (KlonoPIN) 1 MG tabletIndications :Anxiety and depression Take 1 tablet (1 mg) by mouth 3 times daily. 90 tablet 025 2024 Discontinued zolpidem (Ambien) 10 MG tabletIndications :Anxiety and depression TAKE 1 TABLET BY MOUTH EVERY DAY AT BEDTIME NEEDED FOR SLEEP 30 tablet 025 2024 Discontinued fluconazole (Diflucan) 150 MG tabletIndications :Analy vaginitis Take 1 tablet (150 mg) by mouth 1 (one) time for 1 dose. 1 tablet 025 2024 Active Problems Problem Noted Date Diagnosed Date Other specified anemias 06/30/2025 Assessment & Plan (06/30/2025 9:12 AM EDT): Pt with mild anemia Lab Results Component Value Date WBC 8.9 03/17/2025 HGB 11.9 (L) 03/17/2025 HCT 34.7 (L) 03/17/2025 MCV 85.0 03/17/2025 PLT 276 03/17/2025 Referred to Hematology by Pulmonology due to marked eosinophilia. Aix Administrator ordered a work up to rule out Vasculitis. C-ANCA was negative but Positive Proteinase 3 antibody. Significance? Pt has a Gate Technician : Brigid West MD at [facility]. I will ask our team RNS to fax lab results for follow up and clinical co-relation Dizzy spells 06/30/2025 Assessment & Plan (06/30/2025 10:08 AM EDT): Patient with c/o Dizzy spells Exam today within normal limits aside from mild elevation of Blood pressure Etiology ? Recently completed a course of antibiotics and Prednisone ? Dizzy spell described as feeling faint and needing to stop and hold onto the wall. Possible contribution from anemia discussed. Plan: Maintain good hydration, No smoking, Repeat hemoglobin level to assess for anemia as a contributing factor. Pneumonia 06/30/2025 Assessment & Plan (06/30/2025 9:44 AM EDT): Pt evaluated at [facility] 05/29/2025 As part of her ER evaluation she had a Chest CT that showed: 1. No evidence for pulmonary embolism. 2. Small bilateral pleural effusions. 3. Several small patchy nodular ground-glass airspace opacities bilaterally likely related to an infectious process. ED Course , she presented with positive D-dimer, concern for PE as cause of her pleuritic chest pain. CT angio was obtained and was negative for PE. Did show bilateral ground glass opacities raising concern for infection. Rx with doxycycline Advised to follow-up with pulmonology and with her thoracic surgeon. Plan: Repeat Chest x-ray to ensure resolution Tinea 12/23/2024 Assessment & Plan (12/23/2024 1:36 [...] evaluated by Dr. Wynn at our [facility] who recommended to check D [...] We are trying to get her to [facility] before the lab and xray close [...] wit h both constipation and diarrhea 03/20/2024 Assessment & Plan (06/30/2025 8:56 AM EDT): Under the care of GI, Last seen 06/10/2025 Per their note: They recommended a gastric emptying study and a colonoscopy and EGD. 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 Chest CT performed in June 2024 revealed stable anterior mediastinal lymphadenopathy/mass measuring 3.1 cmin the largest dimension and pulmonary nodules <2mm, compared to CT chest 12/2024 revealed a few enlarged and prominent mediastinal lymph nodes, prevascular lymph node measuring 3.3 x 1.6 cm. Pt was evaluated by Dr. Kern, thoracic surgery. She ultimately underwent thymectomy on 02/11/25, pathology reportedly benign. She was last seen by Pulmonology 06/08/2025 As per their note: Due to c/o worsening dyspnea and chest pain with new onset bilateral pleural effusions, eosinophilic predominant. She underwent labs which revealed significant eosinophils possibly related to hypereosinophilic conditions. Aix Administrator referred to hematology for further evaluation. They also ordered ANCA, HSP panel for potential exposures and Tspot. Given significant eosinophilia, They prescribed Prednisone and recommended follow up in 4-6 weeks Assessment & Plan (04/16/2025 11:54 AM EDT): [...] MAURICE (antinuclear antibody) 10/19/2022 Assessment & Plan (06/30/2025 9:33 AM EDT): As part of the work up by Neurology her MAURICE was positive and speckeled. Pt was seen by Rheumatology last: 05/14/2025 her impression was that pt did not have any other symptoms to suggest an autoimmune process. Pt had a POSITIVE Proteinase 3 on 06/08/2025. I will ask our Team RN to forward lab results to Rheumatology for comment Assessment & Plan (04/03/2023 1:20 PM EDT): [...] tolerate NSAIDS Patient was eventually seen at [facility] neurolog[facility] 04/04/2024. They recommended repeat brain MRI [...] with no good results, cannot tolerate NSAIDS [facility] neurolog[facility] is not accepting new patients at the moment. Will try to refer to a different Neurologist perhaps at [facility] Assessment & Plan (01/17/2024 1:06 [...] will also be referring to Neurology at [facility] Assessment & Plan (04/03/2023 1:22 PM EDT): [...] who retired Pt has a therapist at [facility] I recommended she speak with therapist about referral to agency psychiatrist, unfortunatelly they do not have any availability In the meantime I will manage medications if necessary. Plan: Continue: clonazePAM (KlonoPIN) 1 MG tablet hydrOXYzine HCl (Atarax) 25 MG tablet zolpidem (Ambien) 10 MG tablet Will refer to our crane crew supervisor Assessment & Plan (05/15/2024 1:34 PM EDT): Patient has tried many different antidepressants and mood stabilizers but she was intolerant of everything. She is doing reasonably well. Her panic attacks respond to Hydroxyzine 25 mg prn. She takes Clonazepam 1 mg TID prn. And Ambien 10 mg at bedtime. This was prescribed by Hima Fam who recently retired Pt has a therapist at [facility] I recommended she speak with therapist [...] necessary. For any issues or concerns, contact [facility]. All her questions were answered and [...] plan. Essential hypertension 06/22/2015 Assessment & Plan (06/30/2025 9:38 AM EDT): Patient here for a follow up BP initially elevated, after resting for a bit BP came dopwn. Pt rteports BP at home normal, she just took her medications before coming into the office She is on: Losartan 100 mg po daily, Norvasc 10 mg po daily Patient to continue taking medications as prescribed. Most recent Lab Results Component Value Date NA 141 05/22/2025 NA 141 03/17/2025 K 3.8 05/22/2025 K 3.7 03/17/2025 CL 105 05/22/2025 CL 109 (H) 03/17/2025 BUN 8 (L) 05/22/2025 BUN 9 03/17/2025 CREATININE 0.85 05/22/2025 CREATININE 1.1 05/12/2025 Within normal limits Plan; Continue current regimen Assessment & Plan (04/16/2025 11:57 AM EDT): [...] used to be under the care of exchange specialist who had been prescribing Baclofen Assessment [...] used to be under the care of exchange specialist who had been prescribing tramadol 100mg [...] without neural impingement. Pt was seen at [facility] 04/2023 and has a follow up [...] without neural impingement. Pt was seen at [facility] recently has a follow up recommended [...] neural impingement. 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 Gastritis 02/21/2012 09/16/2024 Encounters Date Type Department Care Team Description 07/20/2025 Patient Outreach [facility] [address] [place] [phone] Mychal Fields MD Care Coordination (SDOH f/u) 07/16/2025 Telephone [facility] [address] [place] [address] Mychal Fields MD Med Refill 07/14/2025 Refill [facility] [address] [place] [address] Bette Wynn MD Anxiety and depression 07/11/2025 Refill [facility] [address], [place] [phone] Mychal Fields MD Anxiety and depression 07/09/2025 Patient Outreach [facility] [address] [place] [address] Mychal Fields MD Care Management (C3CM- f/u call lv) 07/03/2025 Patient Outreach [address] [address] Mychal Fields MD Care Coordination (PT1) 07/02/[address] [address] Mychal Fields MD 06/30/2025 9:15 AM EDT Office Visit [address] [address] Mychal Fields MD Dizzy spells (Primary Dx); Analy vaginitis; Irritable bowel syndrome with both constipation and diarrhea; Restrictive lung disease; Anemia due to other cause, not classified; Essential hypertension; Positive MAURICE (antinuclear antibody); Pneumonia of both lower lobes due to infectious organism 06/30/[address] [address] Christie Contreras, ALAN Interoffice Coordination 06/30/2025 Travel 06/29/2025 Patient Outreach [address] [address] Mychal Fields MD Care Coordination (Triage) 06/26/2025 Patient Outreach [address] [address] Mychal Fields MD Care Coordination (PT1) 06/26/2025 Patient Outreach [address] [address] Mychal Fields MD Care Management (C3CM- f/u call) 06/15/2025 Patient Outreach [address] [address] Mychal Fields MD Care Management (C3CM- f/u call lvm) 06/15/2025 Patient Outreach [address] [address] Mychal Fields MD Care Coordination (PT1 f/u) 06/11/[address] [address] Mychal Fields MD Anxiety and depression 06/10/2025 Patient Outreach [facility] [address] [place] [address] Mychal Fields MD Care Coordination ([facility] f/u) 06/09/2025 Refill [facility] [address] [place] [address] Noemy Frye RN Anxiety and depression 06/09/2025 Telephone [facility] [address] [place] [address] Mychal Fields MD Med Refill 06/09/2025 Patient Outreach [facility] [address] [place] [address] Mychal Fields MD Care Management (C3- f/u call lvm) 06/08/2025 Orders Only GENERIC EXTERNAL DATA DEPARTMENT Provider, Generic External Data 06/05/2025 Telephone [facility] [address] [place] [address] Mychal Fields MD 06/05/2025 Telephone [facility] [address] [place] [address] Mychal Fields MD august06/01/2025 Patient Outreach [facility] [address] [place] [address] Mychal Fields MD 05/28/2025 Patient Outreach [address] [phone] Mychal Fields MD Care Management (C3- f/u call) 05/27/2025 Patient Outreach [facility] [address] [place] [phone] Mychal Fields MD Care Coordination ([facility] f/u ) 05/27/2025 Patient Outreach [facility] [address] [place] [address] Mychal Fields MD Care Management (C3- f/u call #4 lvm) 05/18/2025 Patient Outreach [facility] [address] [place] [address] Mychal Fields MD Care Management ([facility]- f/u call #4 lvm) 05/12/2025 Refill [facility] [address] [place] [phone] Mychal Fields MD Anxiety and depression 05/12/2025 Orders Only [facility] External Provider, [facility] 05/06/2025 Patient Outreach [facility] [address] [place] [phone] Mychal Fields MD Care Coordination (Appt reminder) 05/05/2025 Patient Outreach [facility] [address] [place] [phone] Mychal Fields MD Care Coordination (SDID f/u) 05/05/2025 Patient Outreach [facility] [address] [place] [address] Mychal Fields MD Care Management ([facility]- f/u call # lvm) 04/30/2025 Refill [facility] [address] [place] [address] Noemy Frye RN Anxiety and depression 04/30/2025 Refill [facility] [address] [place] [address] Mychal Fields MD Essential hypertension 04/30/2025 Telephone [facility] [address] [place] [address] Mychal Fields MD Med Refill 04/21/2025 Patient Outreach [facility] [address] [place] [address] Mychal Fields MD Care Coordination (SDOH f/u) 04/21/2025 Patient Outreach [facility] [address] [place] [address] Mychal Fields MD Care Management (C3- f/u call lvm) from Last 3 Months Immunizations Immunization Administration [...] Sign Reading Time Taken Comments Blood Pressure 144/86 06/30/2025 9:37 AM EDT Pulse 88 06/30/2025 9:24 AM EDT Temperature 37.2 C (98.9 F) 06/30/2025 9:24 AM EDT Respiratory Rate 20 06/30/2025 9:24 AM EDT Oxygen Saturation 98% 06/30/2025 9:24 AM EDT Inhaled Oxygen Concentration - - Weight 96.3 kg (212 lb 6.4 oz) 06/30/2025 9:24 A M EDT Height 162.6 cm (5' 4 ) 04/16/2025 11:41 AM EDT Body Mass Index 36.46 04/16/2025 11:41 AM EDT Plan of Treatment Upcoming Encounters Date Type Department Care Team (Late st Contact Info) Description 07/24/2025 2:00 PM EST Office Visit [facility] [address] [place] [phone] Manjeet Deluca MD [address] [place] [phone] 08/18/2025 2:15 PM EST Office Visit [facility] [address] [place] [phone] Mychal Fields MD [address] [place] [phone] Health Maintenance Due Date Last Done Comments CT Colonography 1970 FIT DNA/Cologuard 1970 FIT 1970 FOBT 1970 Sigmoidoscopy 1970 Hepatitis B Vaccines (1 of 3 - 19+ 3-dose series) 1989 Pneumococcal Vaccine: 50+ Years (2 of 2 - PCV) 12/27/2012 12/28/2011 RSV Patients and Patients Aged 60 years or older (1 - Risk 50-74 years 1-dose series) 2020 Zoster Vaccines (1 of 2) 2020 COVID-19 Vaccine (4 - season) 2025 06/20/2022, 06/20/2022, 05/17/2021 Influenza Vaccine (#1) 2025 , 09/08/2021, 06/09/2020, Additional history exists Lipid Panel 06/17/2025 06/17/2020 Depression Monitoring 10/17/2025 04/16/2025, 025 Alcohol/Substance Use Screening 12/23/2025 12/23/2024 Disability Screening 12/23/2025 12/23/2024 SDOH Screening 03/04/2026 03/04/2025 Tobacco Screening 06/30/2026 06/30/2025 Mammogram 10/29/2026 10/29/2024, 09/10, 12/17/2018 Colonoscopy 08/30/2027 08/30/2022 Colorectal Cancer Screening 08/30/2027 Cervical Cancer Screening 08/23/2028 HPV/Cotest 08/23/2028 08/23/2023, 04/06/2021 Pap Smear 08/23/2028 08/23/2023, 04/06/2021 DTaP/Tdap/Td Vaccines (2 - Td or Tdap) 08/01/2032 08/01/2022, 11/16/2016, 11/27/2000, Additional history exists HIV Screening Completed 11/05/2024, 09/22/2024 Hepatitis C [...] Procedure Name Priority Date/Time Associated Diagnosis Comments CBC WITH AUTO DIFFERENTIAL Routine 06/30/2025 10:14 AM EDT Dizzy spells XR CHEST 2 VIEWS Routine 06/30/2025 10:1 1 AM EDT Pneumonia of both lower lobes due to infectious organism HYPERSENSITIVITY PNUEMONITIS PROFILE Routine 06/08/2025 2:31 PM EDT ANCA VASCULITIDES Routine 06/08/2025 2:3 1 PM EDT T-SPOT(R).TB Routine 06/08/2025 2:31 PM EDT BASIC METABOLIC PANEL Routine 05/22/2025 2:00 PM EDT Essential hypertension POCT CREATININE GFR Routine 05/12/2025 1 0:39 AM EDT CTA CHEST PE PROTOCAL Routine 05/12/2025 10:36 AM EDT HEPATITIS C ANTIBODY Routine 11/05/2024 3:21 [...] Relevant to Health Maintenance Results * (ABNORMAL) CBC auto differential (06/30/2025 10:14 AM EDT) White Blood Count 10.2 4.8 - 10.8 X10*3/uL [facility] Red Blood Count 4.22 4.20 - 5.50 X10*6/uL [facility] Hemoglobin 11.6(L) 12.0 - 16.0 g/dl [facility] Hematocrit 35.6(L) 37.0 - 47.0 % [facility] Mean Corpuscular Volume 84.4 80.0 - 98.0 fL [facility] Mean Corpuscular Hemoglobin 27.5 27.0 - 33.0 pg [facility] Mean Corpuscular HGB Conc 32.6 31.0 - 35.0 g/dl [facility] Red Cell Distribution Width 16.2(H) 11.0 - 16.0 % [facility] Platelet Count 274 160 - 400 X10*3/uL [facility] Mean Platelet Volume 9.4 9.4 - 12.3 fL [facility] Neutrophils Percent Auto 54.8 45 - 73 % [facility] Imm Gran Pct Auto 0.4 0.0 - 0.4 % [facility] Lymphocytes Percent Auto 37.4 20 - 40 % [facility] Monocytes Percent Auto 4.5 2 - 11 % [facility] Eosinophils Percent Auto 2.4 0 - 4 % [facility] Basophils Percent Auto 0.5 0 - 2 % [facility] NRBC Pct Auto 0.0 0.0 - 0.2 /100WBC [facility] Neutrophils Absolute Auto 5.6 2.0 - 8.3 x10*3/uL [facility] Imm Gran Abs Auto 0.04(H) 0.00 - 0.03 X10*3/uL [facility] Lymphocytes Absolute Auto 3.8 1.2 - 4.9 X10*3/uL [facility] Monocytes Absolute Auto 0.5 0.1 - 1.2 X10*3/uL [facility] Eosinophils Absolute Auto 0.3 0.0 - 0.4 X10*3/uL [facility] Basophils Absolute Auto 0.1 0.0 - 0.2 X10*3/uL [facility] NRBC Abs Auto 0.000 0.0 - 0.012 X10*3/uL [facility] Blood Venous blood specimen / Unknown 06/30/2025 10:14 AM EDT 06/30/2025 11:32 AM EDT Mychal Morris MD LAB BLOOD ORDERABLES Final Result Performing Organization Address City/State/[facility] Co de Phone Number [facility] [address] [place] [phone] * XR Chest 2 Views (06/30/2025 10:11 AM EDT) Anatomical Region Laterality Modality Chest Radiographic Hilda ging 06/30/2025 10:1 1 AM EDT Narrative 06/30/2025 10:18 AM EDT [address] [address] XRay Report Signed Patient: Elaine Rodas MR#: [id number] : 1970 Acct:[id number] Age/Sex: 54 / F ADM Date: 06/30/25 Loc: HO.[facility] Attending Dr: Mychal Long MD Ordering Physician: Mychal Long MD Date of Service: 06/30/25 Procedure(s): XR chest 2V Accession Number(s): [id number] cc: Mychal Long MD Reason for Exam: Hx of pneumonia 1 month ago EXAMINATION: XR CHEST CLINICAL INFORMATION: Hx of pneumonia 1 month ago COMPARISON: Previous chest x-ray most recent March [address] most recent May 2025 TECHNIQUE: 2 views of the chest were obtained. FINDINGS: The lungs are clear. No pulmonary edema or consolidation. Blunting of both costophrenic angles suggestive of very small bilateral pleural effusions. No pneumothorax. Cardiac and mediastinal contours are normal. Degenerative changes of the spine. XR/XR chest 2V IMPRESSION: No evidence of pneumonia. Very small bilateral pleural effusions. Electronically signed by: Lydia Oneal MD 06/30/2025 10:15 AM EDT RP Dictated By: Lydia Oneal MD Signed By: <Electronically signed by Lydia Oneal MD in OV> 06/30/25 1015 DD/ 1011 TD/TT: 06/30/25 1011 Transfill Technician: DORITA Procedure Note Donotuseinterpreter, Image - 06/30/2025 [place] [address] XRay Report Signed Patient: Elaine RodasMR#: [id number] : 1970Acct:[id number] Age/Sex: 54 / FADM Date: 06/30/25 Loc: HO[facility] Attending Dr: Mychal Long MD Ordering Physician: Mychal Long MD Date of Service: 06/30/25 Procedure(s): XR chest 2V Accession Number(s): [id number] cc: Mychal Long MD Reason for Exam: Hx of pneumonia 1 month ago EXAMINATION: XR CHEST CLINICAL INFORMATION: Hx of pneumonia 1 month ago COMPARISON: Previous chest x-ray most recent March [address] most recent May 2025 TECHNIQUE: 2 views of the chest were obtained. FINDINGS: The lungs are clear. No pulmonary edema or consolidation. Blunting of both costophrenic angles suggestive of very small bilateral pleural effusions. No pneumothorax. Cardiac and mediastinal contours are normal. Degenerative changes of the spine. XR/XR chest 2V IMPRESSION: No evidence of pneumonia. Very small bilateral pleural effusions. Electronically signed by: Lydia Oneal MD 06/30/2025 10:15 AM EDT RP Dictated By: Lydia Oneal MD Signed By: <Electronically signed by Lydia Oneal MD in OV> 06/30/25 1015 DD/ 1011 TD/TT: 06/30/25 1011 Transfill Technician: DORITA us Mychal Morris MD IMG XR PROCEDURES Jhonatan mike Result - Final * (ABNORMAL) ANCA Vasculitides (06/08/2025 2:31 PM EDT) Myeloperoxidase Antibody <1.0 [facility] Comment:Value Interpretation ----- <1.0 No Antibody Detected > or = 1.0 Antibody DetectedAutoantibodies to myeloperoxidase (MPO) are commonlyassociated with the following small-vesselvasculitides: microscopic polyangiitis,polyarteritis nodosa, Churg-Faheem syndrome,necrotizing and crescentic glomerulonephritis andoccasionally granulomatosis with polyangiitis(GPA, Jensen's). The perinuclear IFA pattern,(p-ANCA) is based largely on autoantibody tomyeloperoxidase which serves as the primary antigen.These autoantibodies are present in active disease. Proteinase-3 Antibody 13.9(A) [facility] Comment:Since patient sera m ay contain heterogeneous antibodypopulations, caution should be utilized in interpretingresults >8.0 due to varying degrees of non-linearity. Value Interpretation ----- <1.0 No Antibody Detected > or = 1.0 Antibody DetectedAutoantibodies to proteinase-3 (ME-3) are accepted ascharacteristic for granulomatosis with polyangiitis(GPA, Jensen's), and are detectable in 95% of thehistologically proven cases. The cytoplasmic IFApattern, (c-ANCA), is based largely on autoantibody toPR-3 which serves as the primary antigen.These autoantibodies are present in active disease.THIS TEST WAS PERFORMED AT:[facility] [place] [id number] PRESSLEY MD 06/08/2025 2:31 PM EDT 06/08/2025 2:31 PM EDT us Generic External Data Provider LAB BLOOD ORDERAB LES Final Result [facility] [address] [place] [address] [phone] * T-SPOT??.TB (06/08/2025 2:31 PM EDT) T Spot TB Negative Negative [facility] Comment:A negative test resu lt does not exclude the possibilityof exposure to or infection with Mycobacteriumtuberculosis (M. tuberculosis). Patients with recentexposure to TB infected individuals exhibiting anegative T-SPOT.TB result should be considered forretesting within 6 weeks or if other relevant clinicalsymptoms indicate. Results from T-SPOT.TB testing mustbe used in conjunction with each individual'sepidemiological history, current medical status,and results of other diagnostic evaluations.The T-SPOT.TB test is qualitative and results arereported as positive, borderline, or negative, giventhat the test controls perform as expected. In linewith the Centers for Disease Control and Prevention's2010 recommendation to report quantitative measurementsalongside the qualitative result, the laboratoryprovides spot counts for informational purposes only.The T-SPOT.TB test should not be interpreted as aquantitative test. TS PANEL A 0 [facility] TS PANEL B 0 [facility] Negative Control Passed [facility] Positive Control Passed [facility] Comment:For additional infor mation, please refer tohttp://education.Spacedeck.Skystream [employer]/faq/MNR684(This link is being provided for informational/educational purposes only.)THIS TEST WAS PERFORMED AT:[facility]/[facility] [id number] [place] [address]GKPLTIZANSON CALVILLO MD,PHD 06/08/2025 2:31 PM EDT 06/08/2025 2:31 PM EDT Generic External Data Provider LAB BLOOD ORDERAB LES Final Result Performing Organization Address [facility] de Phone Number [facility] [address] [place] [phone] * Hypersensitivity Pneumonitis Screen (06/08/2025 2:31 PM EDT) Aspergillus fumigatus Ab NEGATIVE NEGATIVE [facility] Micropolyspora Faeni NEGATIVE NEGATIVE [facility] Otis Serum Abs NEGATIVE NEGATIVE [facility] Thermoactinomyces candidus NEGATIVE NEGATIVE [facility] Thermoactinomyces vulgaris Ab NEGATIVE NEGATIVE [facility] Saccharomonospora viridis Ab NEGATIVE NEGATIVE [facility] Comment:This test was develo ped and its analytical performancecharacteristics have been determined by [employer].It has not been cleared or approved by the FDA. This assayhas been validated pursuant to the CLIA regulations and isused for clinical purposes.THIS TEST WAS PERFORMED AT:[employer] [id number] [facility]ON[facility]KA[facility] CH[facility] [place] [address]BHDZYMICHAELA MORGAN MD,PHD,GIULIA 06/08/2025 2:31 PM EDT 06/08/2025 2:31 PM EDT Generic External Data Provider LAB BLOOD ORDERAB LES Final Result Performing Organization Address [facility] de Phone Number [facility] [address] [place] [phone] * (ABNORMAL) Basic Metabolic Panel (05/22/2025 2:00 PM EDT) Sodium 141 135 - 145 mmol/L [facility] Potassium 3.8 3.3 - 5.1 mmol/L [facility] Chloride 105 96 - 108 mmol/L [facility] Carbon Dioxide 29 22 - 29 mmol/L [facility] Anion Gap 11(L) 12 - 20 [facility] Urea Nitrogen (BUN) 8(L) 9 - 16 mg/dL [facility] Creatinine, Serum 0.85 0.5 - 1.4 mg/dL [facility] Estimated Glomerular Filt Rate >60 [facility] Comment:Chronic Kidney Disea se: Estimated GFR < 60 mL/min/1.06x0Grqjqt Kidney Disease: Estimated GFR < 15 mL/min/1.73m2 Glucose 110 60 - 115 mg/dL [facility] Calcium 9.0 8.4 - 10.2 mg/dL [facility] Blood Venous blood specimen / Unknown 05/22/2025 2:00 PM EDT 05/22/2025 2:00 PM EDT us Mychal Morris MD LAB BLOOD ORDERABLES Final Result Performing Organization Address [facility] Co de Phone Number [facility] [address] [place] [phone] * POCT Creatinine GFR (05/12/2025 10:39 AM EDT) POCT Creatinine 1.1 0.5 - 1.4 mg/dL [facility] GFR POC 55 [facility] Comment:Chronic Kidney Disea se: Estimated GFR < 60 mL/min/1.65n7Synchx Kidney Disease: Estimated GFR < 15 mL/min/1.73m2 05/12/2025 10:3 9 AM EDT 05/12/2025 2:20 PM EDT Narrative [facility] - 05/12/2025 2:22 PM EDT [phone].[email or web address] us Generic External Data Provider LAB POINT OF CARE TEST DOCKED DEVICE ORDERABLES Final Result Performing Organization Address [facility] Co de Phone Number [facility] [address] [place] [phone] * CTA Chest PE Protocal (05/12/2025 10:36 AM EDT) Anatomical Region Laterality Modality Body, Chest Computed Tomogra phy 05/12/2025 10:3 6 AM EDT Narrative 05/12/2025 11:22 AM EDT [address] [address] [address] Scan Report Signed Patient: Elaine Rodas MR#: [id number] : 1970 Acct:[id number] Age/Sex: 54 / F ADM Date: 05/12/25 Loc: HO.CT Attending Dr: Amy Zimmerman NP Ordering Physician: Amy Zimmerman NP Date of Service: 05/12/25 Procedure(s): CT angio chest PE protocol Accession Number(s): [id number] cc: Mychal Long MD; Amy Zimmerman NP Report Number: [id number]: Total DLP = 150.00 mGy-cm Reason for [...] 05/12/25 1119 DD/ 1036 TD/TT: 05/12/25 1100 Transfill Technician: Procedure Note Donotuseinterpreter, Image - 05/12/[address] [place] [address] [address] Scan Report Signed Patient: Elaine Rodas#: [id number] : 1970Acct:[id number] Age/Sex: 54 / FADM Date: 05/12/25 Loc: HO.CT Attending Dr: Amy Zimmerman NP Ordering Physician: Amy Zimmerman NP Date of Service: 05/12/25 Procedure(s): CT angio chest PE protocol Accession Number(s): [id number] cc: yMchal Long MD; Amy Zimmerman NP Report Number: [id number]: Total DLP = 150.00 mGy-cm Reason for [...] 05/12/25 1119 DD/ 1036 TD/TT: 05/12/25 1100 Transfill Technician: [facility] External Provider IMG CT PROCEDURES Final Result * Hepatitis C Ab (11/05/2024 3:21 PM EST) Hepatitis C Antibody Nonreactive Nonreactive [facility] Comment:Antibodies to HCV no t detected; does not exclude early acuteHCV infection. 11/05/2024 3:21 PM EST 11/05/2024 3:21 PM EST Generic External Data Provider LAB BLOOD ORDERAB LES Final Result Performing Organization Address [facility] de Phone Number [facility] [address] [place] [phone] * HIV-1/2 Antigen and Antibodies, Fourth Generation, with Reflexes (11/05/2024 3:21 PM EST) HIV AB/AG Nonreactive Nonreactive [facility] Comment:HIV-1 p24 Ag and/or HIV-1/HIV-2 Ab not detected.A test result that is nonreactive does not exclude thepossibility of exposure to or infection with HIV-1 and/orHIV-2. Nonreactive results in this assay for individualswith prior exposure to HIV-1 and/or HIV-2 may be due toantigen and antibody levels that are below the limit ofdetection of this assay.The [employer] HIV Ag/Ab Combo assay result andsupplemental assay results should be interpreted inconjunction with the patient's clinical presentation,history and other laboratory results. If the results areinconsistent with clinical evidence, additional testing issuggested to confirm the result. 11/05/2024 3:21 PM EST 11/05/2024 3:21 PM EST Generic External Data Provider LAB BLOOD ORDERAB LES Final Result Performing Organization Address [facility] Co de Phone Number [facility] [address] [place] [phone] * BI Mammogram Screening Tomosynthesis Bilateral (10/29/2024 12:58 PM EST) Anatomical Region Laterality Modality Breast Bilateral Mammography 10/29/2024 12:5 8 PM EST Narrative 11/04/2024 12:41 PM EST [address] [place] [address] Mammography Report Signed Patient: Elaine Rodas MR#: [id number] : 1970 Acct:[id number] Age/Sex: 53 / F ADM Date: 10/29/24 Loc: CHAS[facility] Attending Dr: Mychal Long MD Ordering Physician: Syed Coreas MD Results: 1Negativ e Date of Service: 10/29/24 Follow Up: 1 Year From Orig ina Mammogram Procedure(s): MM tomosynthesis screening BI Accession Number(s): [id number] cc: Mychal Long MD; Syed Coreas MD [...] 11/04/24 1238 DD/ 1258 TD/TT: 10/29/24 1315 Transfill Technician: Procedure Note Donotuseinterpreter, Image - 11/04/2024 [facility] [address] [place], [place] [address] Mammography Report Signed Patient: Elaine RodasMR#: [id number] : 1970Acct:[id number] Age/Sex: 53 / FADM Date: 10/29/24 Loc: HO.MAMMO Attending Dr: Mychal Long MD Ordering Physician: Syed Coreas MDResults: 1Negativ e Date of Service: 10/29/24Follow Up: 1 Year From Orig inal Mammogram Procedure(s): MM tomosynthesis screening BI Accession Number(s): [id number] cc: Mychal Long MD; Syed Coreas MD [...] by: Shayy Connor DO 11/04/2024 12:38 PM [facility] Dictated By: Shayy Connor DO Signed By: <Electronically signed by Shayy Connor DO in OV> 11/04/24 1238 DD/ 1258 TD/TT: 10/29/24 1315 Transfill Technician: [facility] External Provider IMG BI PROCEDURES Final Result * HPV mRNA E6/E7 w/Reflex to HPV Genotypes 16, 18/45 (08/23/2023 2:22 PM EST) HPV nRNA E6/E7 Not Detected Not Detected [facility] Comment:Methodology: Transcr iption-Mediated AmplificationThis assay detects E6/E7 viral messenger RNA (mRNA) from 14high-risk HPV types (16,18,31,33,35,39,45,51,52,56,58,59,66,68).Cervical sources are required for HPV testing.If a vaginal source from a patient who has had atotal hysterectomy with removal of cervix wassubmitted, please contact the testing laboratoryfor alternative testing options.For additional information, please refer tohttp://education.Oja.la/faq/LFB293u0(This link if provided for information/educational purposes only.)THIS TEST WAS PERFORMED AT:[facility] [place] [id number] PRESSLEY MD HPV mRNA E6/E7 [facility] HPV 16 RNA [facility] HPV 18/45 RNA [facility] 08/23/2023 2:22 PM EST 08/24/2023 9:35 AM EST Cecily [facility] LAB CYTOLOGY ORDERABLES F inal Result [facility] [address] [place] [phone] * Pap Smear (08/23/2023 2:22 PM EST) Swab Cervix uteri structure / Unknown 08/23/2023 2:22 PM EST 08/24/2023 9:35 AM EST Narrative [facility] - 09/04/2023 1:23 PM EST ----- ------- Name: Elaine Rodas Age/Sex: 52/F : 1970 Unit#: [id number] Attend Dr: Re08/23/23 Status: PRE REF Location: [facility] Disch: ----- ------- SPEC : [id number] RECD: 08/24/23 STATUS: RICHARD OLIVE NUM: [id number] [place]: 08/23/23 [facility] DR: CECILY SCHWAB [facility] ENTERED: 08/24/23 SP TYPE: Pap Smr [facility] DR: ORDERED: Pap Smear Interpretation Satisfactory for evaluation. No endocervical cells seen. Cytolysis noted. Negative for intraepithelial lesion or malignancy. HPV mRNA E6/E7: NOT DETECTED This assay detects E6/E7 viral messenger RNA (mRNA) from 14 high-risk HPV types (16, 18, 31, 33, 35, 39, 45, 51, 52, 56, 58, 59, 66, 68) HPV testing performed by [employer], [place], [place]. See reference laboratory portion of the EMR for entire report. Clinical Information LMP: Postmenopausal Previous PAP test: Unknown date/findings Other history: Abnormal bleeding Material Received ThinPrep-Cervical ----- ------- Signed (signature on file) NATHAN Medrano ([facility]) 09/04/23 1323 ----- ------- END OF REPORT Cecily [facility] CYTOLOGY ORDERABLES F inal Result [facility] [address] [place] [phone] * Colonoscopy (08/30/2022) Pathologist [facility] Colonoscopy Normal Normal Historical Provider MD HEALTH MAINTENANCE Final Result * (ABNORMAL) LIPID PANEL, STANDARD (06/17/2020 3:00 PM EDT) Pathologist [facility] HDL Cholesterol 53 > OR = 50 [...] LDL-C. Mina MARRERO et al. ASHUTOSH. 2013;310(19): 1855-6688 (http://education.Vaccibody.com/faq/EZC806) Chol/HDLC Ratio 3.4 <5.0 (calc) [facility] 06/17/2020 3:00 PM EDT Mychal Morris MD LAB BLOOD ORDERABLES Final Result [facility] [address] from Last 3 Months or Most Recently Relevant to Health Maintenance Insurance [employer] C[employer] Care Teams Engraving Patternmaker Relationship Specialty Start Date End Date Mychal Fields MD [address] [place] [phone] PCP - General Internal Medicine 04/30/14 Hima Fam FNP [address] [place] [address] Nurse Practitioner Family Medicine 08/01/23 Rheumatology, [address] [place] [address] Rheumatology 06/30/25
--- OUTSIDE RECORDS SUMMARY | 2025-07-22 08:49 | XMS_ITS | Encounter Summary ---
Author Organization [employer] Address [address] [place] [address] [address]t [place] [address] Care Team Providers Care Labor Relations Director Name Role Phone Mychal Fields MD Primary Care Provide r Hima Fam Unavailable Unavailable Yaneth Dotson RN Unavailable [phone] Mckenzie Silverio Unavailable [facility] Unavailable [phone] Reason for Visit * Reason Comments Med Change Request Encounter Details Date Type Department Care Team (Late st Contact Info) Description 10/19/[address] [facility] [address] [place], [place] [phone] Mychal Fields MD [address] [place], [place] [phone] Fibromyalgia Social History Tobacco Use Types Packs/Day [...] 07/24/2025 2:00 PM EST Office [address] [facility] [address] [place], [place] [phone] Manjeet Deluca MD [address] [place] [address] 08/18/2025 2:15 PM EST Office Visit [facility] [address] [place] [address] Mychal Fields MD [address] [place] [address] documented as of this encounter Visit Diagnoses Diagnosis Fibromyalgia Unspecified myalgia and myositis documented in this encounter Additional Health Concerns Assessment Noted Time PHQ-9 Depression Total Score: 7 10/09/19 23 4:00 PM EST documented as of this encounter Care Teams Labor Relations Director Relationship Specialty Start Date End Date Mychal Fields MD [address] [place] [address] PCP - General Internal Medicine 04/30/14 Hima Fam FNP [address] [place] [address] Nurse Practitioner Family Medicine 08/01/23 Yaneth Dotson, ALAN [address] [place] [address] Registered Nurse Family Medicine 02/24/25 07/09/25 Mckenzie Silverio 02/24/25 07/20/[address] [place] [address] Rheumatology 06/30/25 [facility] 02/13/25 03/29/25 documented as of this encounter
--- OUTSIDE RECORDS SUMMARY | 2025-07-22 08:49 | XMS_ITS | Encounter Summary ---
Author Organization [employer] Address [address] [place] [address] 7t [place] [address] Care Team Providers Care Hair And Makeup Designer Name Role Phone Mychal Fields MD Primary Care Provide r Hima Fam Unavailable Unavailable Yaneth Dotson RN Unavailable [phone] Mckenzie Silverio Unavailable [facility] Unavailable [phone] Reason for Visit * Reason Onset Date Comments PRE OP 11/10/2024 Encounter Details Date Type Department Care Team (Late st Contact Info) Description 11/10/2024 Telephone [facility] [address] [place], [place] [phone] Mychal Fileds MD [address] [place], [place] [phone] PRE OP Social History Tobacco Use Types [...] needed: No EKG: No Surgeon's name: Dino Colusa Facility name: [facility] Surgeon's office number: [phone] Surgeon's office fax number: [phone] Contact name (person you spoke with): Karon [...] Description 07/24/2025 2:00 PM EST Office Visit [address] [address] Manjeet Deluca MD [address] [place] [address] 08/18/2025 2:15 PM EST Office Visit [address] [address] Mychal Fields MD [address] [place] [address] documented as of this encounter Visit Diagnoses Not on filedocumented in this encounter Additional Health Concerns Assessment Noted Time PHQ-9 Depression Total Score: 6 09/16/19 25 10:06 AM EST documented as of this encounter Care Teams Hair And Makeup Designer Relationship Specialty Start Date End Date Mychal Fields MD [address] [place] [phone] PCP - General Internal Medicine 04/30/14 Hima Fam FNP [address] [place] [address] Nurse Practitioner Family Medicine 08/01/23 Yaneth Dotson, ALAN [address] [place] [address] Registered Nurse Family Medicine 02/24/25 07/09/25 Mckenzie Silverio 02/24/25 07/20/25 Rheumatology, [address] [place] [address] Rheumatology 06/30/25 [facility] 02/13/25 03/29/25 documented as of this encounter
--- OUTSIDE RECORDS SUMMARY | 2025-07-22 08:49 | XMS_ITS | Encounter Summary ---
Author Organization [facility] [employer] Address [address] [place] [address] 7t [place] [address] Care Team Providers Care Fish Butcher Name Role Phone Mychal Fields MD Primary Care Provide r Hima Fam Unavailable Unavailable Yaneth Dotson RN Unavailable [phone] Mckenzie Silverio Unavailable [facility] Unavailable Reason for Visit * Reason Comments Med Refill Encounter Details Date Type Department Care Team (Late st Contact Info) Description 07/27/2023 Refill [facility] [address] [place], [place] [phone] Mychal Fields MD [address] [place], [place] [phone] Social History Tobacco Use Types Packs/Day Years Used Date Smoking Tobacco: Never Passive Smoke Exposure: Never Smokeless Tobacco: Never Alcohol Use Standard Drinks/Week Comments Never 0 (1 standard drink = 0.6 oz pur e alcohol) Depression Answer Date Recorded Patient Health Questionnaire-9 Score 0 05/10/2023 Housing Stability Answer Date Recorded What is your housing situation today? I have geefaisal staley 06/26/[address] you [...] 07/24/2025 2:00 PM EST Office Visit [facility] [address] [place] [address] Manjeet Deluca MD [address] [place] [address] 08/18/2025 2:15 PM EST Office Visit [address] [address] Mychal Fields MD [address] [place] [address] documented as of this encounter Visit Diagnoses Not on filedocumented in this encounter Additional Health Concerns Assessment Noted Time PHQ-9 Depression Total Score: 0 05/10/20 23 10:38 AM EDT documented as of this encounter Care Teams Fish Butcher Relationship Specialty Start Date End Date Mychal Fields MD [address] [place] [address] PCP - General Internal Medicine 04/30/14 Hima Fam FNP [address] [place] [address] Nurse Practitioner Family Medicine 08/01/23 Yaneth Dotson RN [address] [place] [address] Registered Nurse Family Medicine 02/24/25 07/09/25 Mckenzie Silverio 02/24/25 07/20/[address] [place] [address] Rheumatology 06/30/25 [facility] 02/13/25 03/29/25 documented as of this encounter
--- OUTSIDE RECORDS SUMMARY | 2025-07-22 08:49 | XMS_ITS | Encounter Summary ---
Author Organization [employer] Address [address] [place] [address] [address] [place] [address] Care Team Providers Care Upholstery Restorer Name Role Phone Mychal Fields MD Primary Care Provide r Hima Fam Unavailable Unavailable Yaneth Dotson RN Unavailable [phone] Mckenzie Silverio Unavailable [facility] Unavailable [phone] Reason for Visit * Reason Comments Med Refill Encounter Details Date Type Department Care Team (Late st Contact Info) Description 07/27/2023 Refill [facility] [address] [place], [place] [phone] Mychal Fields MD [address] [place], [place] [phone] Social History Tobacco Use Types Packs/Day Years [...] Description 07/24/2025 2:00 PM EST Office Visit [facility] [address] [place] [address] Manjeet Deluca MD [address] [place] [address] 08/18/2025 2:15 PM EST Office Visit [address] [address] Mychal Fields MD [address] [place] [address] documented as of this encounter Visit Diagnoses Not on filedocumented in this encounter Additional Health Concerns Assessment Noted Time PHQ-9 Depression Total Score: 0 05/10/20 23 10:38 AM EDT documented as of this encounter Care Teams Upholstery Restorer Relationship Specialty Start Date End Date Mychal Fields MD [address] [place] [address] PCP - General Internal Medicine 04/30/14 Hima Fam FNP [address] [place] [address] Nurse Practitioner Family Medicine 08/01/23 Yaneth Dotson RN [address] [place] [address] Registered Nurse Family Medicine 02/24/25 07/09/25 Mckenzie Silverio 02/24/25 07/20/[address] [place] [address] Rheumatology 06/30/25 [facility] 02/13/25 03/29/25 documented as of this encounter
--- OUTSIDE RECORDS SUMMARY | 2025-07-22 08:49 | XMS_ITS | Encounter Summary ---
Author Organization [employer] Address [address] [place] [address] 7t [place] [address] Care Team Providers Care Glassware Engraver Name Role Phone Mychal Fields MD Primary Care Provide r Hima Fam Unavailable Unavailable Mckenzie Silverio Unavailable [facility] Unavailable [phone] Reason for Visit * Reason Comments Care Coordination SDOH f/u Encounter Details Date Type Department Care Team (Latest Contact Info) Description 07/20/2025 Patient Outreach [facility] [address] [place] [address] Mychal Fields MD [address] [place] [address] Care Coordination (SDOH f/u) Social History Tobacco [...] encounter Progress Notes * Mckenzie Silverio - 07/20/2025 11:27 AM EST CHW Mckenzie Silverio placed outbound call to patient for follow up on SDOH needs. Patient's name, DOBand address not confirmed. No answer at this time. CHW LVM reinforcing direct contact information for any additional questions or concerns and extended clinic hours on Mondays and Wednesdays, and Walk-In Urgent Care Located in [facility]. Patient provided with after-hours line for [facility], , which offer night time triage service and option to transfer to chemist water purification provider if needed. CHW LVM discussing with the patient progress made in the CHW Program. Patient was notified in voicemail that they are being graduated from the Care Management-CHW Program. Voicemail also entailed education on how to receive SDOH services inthe future. documented in this encounter Plan of Treatment Upcoming Encounters Date Type Department Care Team (Late st Contact Info) Description 07/24/2025 2:00 PM EST Office Visit [facility] [place] [address] Manjeet Deluca MD [facility] [place] [address] 08/18/2025 2:15 PM EST Office Visit [facility] [place] [address] [place]chal [place] [address] documented as of this encounter Visit Diagnoses Not on filedocumented in this encounter Additional Health Concerns Assessment Noted Time PHQ-9 Depression Total Score: 15 025 12:51 PM EDT documented as of this encounter Care Teams Glassware Engraver Relationship Specialty Start Date End Date Mychal Fields MD [facility] [place] [address] PCP - General Internal Medicine 04/30/14 Hima Fam FNP [address] [place] [address] Nurse Practitioner Family Medicine 08/01/23 Mckenzie Silverio 02/24/25 07/20/[address] [place] [address] Rheumatology 06/30/25 documented as of this encounter
--- OUTSIDE RECORDS SUMMARY | 2025-07-22 08:49 | XMS_ITS | Encounter Summary ---
Author Organization [employer] Address [address] [place] [address] 7t [place] [address] Care Team Providers Care Brush Stainer Name Role Phone Mychal Fields MD Primary Care Provide r Hima Fam Unavailable Unavailable Yaneth Dotson RN Unavailable [phone] Mckenzie Silverio Unavailable [facility] Unavailable [phone] Reason for Visit * Reason Onset Date Comments Appointment Request 12/04/2022 Encounter Details Date Type Department Care Team (Late st Contact Info) Description 12/04/2022 Telephone [facility] [address] [place], [place] [phone] Mychal Fields MD [address] [place], [place] [phone] Appointment Request Social History Tobacco Use Types [...] Miscellaneous Notes * Telephone Encounter - Melissa Wilks Ashley - 02/08/2023 2:38 PM EDT Tc from pt requesting to r/s appt on 10/19/22 ( ff/u Bp ) Please contact pt at [phone] * Telephone Encounter - Wesley Collins - 12/04/2022 2:02 PM EDT Tc from pt requesting to r/s appt on 10/19/22 ( ff/u Bp ) Please contact pt at [phone] documented in this encounter Plan of Treatment Upcoming Encounters Date Type Department Care Team (Late st Contact Info) Description 07/24/2025 2:00 PM EST Office Visit [facility] [address] [place] [address] Manjeet Deluca MD [address] [place] [address] 08/18/2025 2:15 PM EST Office Visit [facility] [address] [place] [address] Mychal Fields MD [address] [place] [address] documented as of this encounter Visit Diagnoses Not on filedocumented in this encounter Additional Health Concerns Assessment Noted Time PHQ-9 Depression Total Score: 7 10/09/19 23 4:00 PM EST documented as of this encounter Care Teams Brush Stainer Relationship Specialty Start Date End Date Mychal Fields MD [address] [place] [address] PCP - General Internal Medicine 04/30/14 Hima Fam FNP [address] [place] [address] Nurse Practitioner Family Medicine 08/01/23 Yaneth Dotson RN [address] [place] [address] Registered Nurse Family Medicine 02/24/25 07/09/25 Mckenzie Silverio 02/24/25 07/20/25 Rheumatology, [address] [place] [address] Rheumatology 06/30/25 [employer] 02/13/25 03/29/25 documented as of this encounter
--- OUTSIDE RECORDS SUMMARY | 2025-07-22 08:49 | XMS_ITS ---
Author Organization [employer] Address [address] [place] [address] 7t [place] [address] Care Team Providers Care Manager Water Wastewater Name Role Phone Mychal Fields MD Primary Care Provide r Hima Fam Unavailable Unavailable [facility] Unavailable [phone] CHW Complex Status:Closed (Closed) Start date:02/24/2025 Enrollment date:03/04/2025 Enrollment reason:ADT Feed End date:07/20/2025 Close reason:Goals Met Overview ED- Pt went to [facility] on 02/23/25. Please outreach for enrollment. Continued Care and Services Coordination
--- OUTSIDE RECORDS SUMMARY | 2025-07-22 08:49 | XMS_ITS | Encounter Summary ---
Author Organization [employer] Address [address] [place] [address] 7t [place] [address] Care Team Providers Care Reheater Name Role Phone Mychal Fields MD Primary Care Provide r Hima Fam Unavailable Unavailable Yaneth Dotson RN Unavailable Mckenzie Silverio Unavailable [facility] Unavailable [phone] Reason for Visit * Reason Onset Date Comments Med Refill 06/09/2025 Encounter Details Date Type Department Care Team (Late st Contact Info) Description 06/09/2025 Telephone [facility] [address] [place], [place] [phone] Mychal Fields MD [address] [place], [place] [phone] Med Refill Social History Tobacco Use Types [...] Office Visit [facility] [address] [place] [address] Manjeet Deluca MD [address] [place] [address] 08/18/2025 2:15 PM EST Office Visit [facility] [address] [place] [address] Mychal Fields MD [address] [place] [address] documented as of this encounter Visit Diagnoses Not on filedocumented in this encounter Additional Health Concerns Assessment Noted Time PHQ-9 Depression Total Score: 15 025 12:51 PM EDT documented as of this encounter Care Teams Reheater Relationship Specialty Start Date End Date Mychal Fields MD [address] [place] [address] PCP - General Internal Medicine 04/30/14 Hima Fam FNP [address] [place] [address] Nurse Practitioner Family Medicine 08/01/23 Yaneth Dotson, ALAN [address] [place] [address] Registered Nurse Family Medicine 02/24/25 07/09/25 Mckenzie Silverio 02/24/25 07/20/[address] [place] [address] Rheumatology 06/30/25 documented as of this encounter
--- OUTSIDE RECORDS SUMMARY | 2025-07-22 08:49 | XMS_ITS | Encounter Summary ---
Author Organization [employer] Address [address] [facility] 7t [place] [address] Care Team Providers Care Community Service Aide Name Role Phone Mychal Fields MD Primary Care Provide r Hima Fam Unavailable Unavailable Yaneth Dotson RN Unavailable [phone] Mckenzie Silverio Unavailable [facility] Unavailable [phone] Encounter Details Date Type Department Care Team (Late st Contact Info) Description 06/11/2023 Orders Only [facility] [address] [place], [place] [phone] Veda Isabel LPN Social History Tobacco Use [...] Office Visit [facility] [address] [place] [address] Manjeet Deluca MD [address] [place] [address] [place] [address] 08/18/2025 2:15 PM EST Office Visit [facility] [address] [facility] [place] [address] Mychal Fields MD [address] [place] [address] documented as of this encounter Visit Diagnoses Not on filedocumented in this encounter Additional Health Concerns Assessment Noted Time PHQ-9 Depression Total Score: 0 05/10/20 10:38 AM EDT documented as of this encounter Care Teams Community Service Aide Relationship Specialty Start Date End Date Mychal Fields MD [address] [place] [address] PCP - General Internal Medicine 04/30/14 Hima Fam FNP [address] [place] [address] Nurse Practitioner Family Medicine 08/01/23 Yaneth Dotson RN [address] [place] [address] Registered Nurse Family Medicine 02/24/25 07/09/25 Mckenzie Silverio 02/24/25 07/20/[address] [place] [address] Rheumatology 06/30/25 [employer] 02/13/25 03/29/25 documented as of this encounter
--- OUTSIDE RECORDS SUMMARY | 2025-07-22 08:49 | XMS_ITS | Clinical Summary ---
Author Organization [facility] Address [address] [place] [address] Care Team Providers Care Sandblaster Stone Name Role Phone Unavailable Primary Care Provider Unavailabl e Source Comments PLEASE NOTE, if this patient is a minor, it may be UNLAWFUL to discuss sensitive information that is contained in these records (such as FAMILY PLANNING, MENTAL HEALTH or SUBSTANCE ABUSE) with the minor patient's parent or other person without the patient's specific authorization.[facility] Social History Tobacco Use Types Packs/Day Years Used Date Smoking Tobacco: Never Assessed Comments Unknown Sex and Gender Information Value Date Recorded Sex Assigned at Female 03/31/2025 10:29 AM PDT Legal Sex Female 10:29 AM PDT Gender Identity Choose not to disclose 10:29 AM PDT Sexual Orientation Not on file Plan of Treatment Upcoming Encounters Date Type Department Care Team (Late st Contact Info) Description 07/28/2025 1:00 PM EST Behavioral Health Visit [facility] [address] [place] [phone] Addie Chauhan APRN [address] [place] [address] Health Maintenance Due Date Last Done Comments Anxiety Screening 1970 HPV Screening (self-collect) 1970 HPV Screening 1970 Hepatitis C Screening 1970 Pap + HPV 1970 Tobacco Screening 1970 Hypertension Screening (#1) 1988 Imm-Hepatitis B (1 of 3 - 19 + 3-dose series) 1989 Breast Cancer Screening (Mammogram) 2010 CT Colonography 11/27/2015 Colonoscopy 11/27/2015 Colorectal Cancer Screening 11/27/2015 FIT/gFOBT 11/27/2015 Fecal DNA 11/27/2015 Flexible Sigmoidoscopy 11/27/2015 Imm-Pneumococcal 50+ (2 of 2 - PCV) 2020 12/28/2011 Imm-Zoster, Recombinant (1 of 2) 2020 Alcohol and Drug Screen 09/10/2024 Depression Annual Screen 09/10/2024 [id number] (3 - season) 2025 022, 05/17/2021 Imm-Influenza (#1) 2025 05/24/2022, 1 , 06/09/2020, Additional history exists Lipid Screening 06/17/2025 06/17/2020 Cervical Cancer Screening 08/23/2026 Pap Smear 08/23/2026 08/23/2023 Diabetes Screening 03/17/2028 03/17/2025 Imm-DTaP/Tdap/Td (2 - Td or Tdap) 08/01/2032 08/01/2022, 11/16/2016, 11/27/2000, Additional history exists HIV Screening Completed 11/05/2024, 11/05/2024 Cervical Ablation/Cold-Knife Conization Discontinued Cervical Cryotherapy Discontinued Colposcopy Discontinued Excision/Leep Discontinued HPV Genotyping Discontinued Vaginal Pap Discontinued Vulvoscopy Discontinued Insurance [facility]
--- OUTSIDE RECORDS SUMMARY | 2025-07-22 08:49 | XMS_ITS | Clinical Summary ---
Author Organization [facility] 299 [facility] Address [address] [place] [address] Phone Care Team Providers Care Engineer Technical Staff Name Role Phone Mychal Long MD Primary [...] total) by mouth at bedtime. 05/22/2025 Active Active Problems Problem Noted Date Diagnosed [...] She is requesting the clinic in the [facility]. Patient may follow-up with us here in thoracic surgery on an as-needed basis going forward. 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 Patient may follow-up with us here in thoracic surgery on an as-needed basis going forward. Resolved Problems Problem Noted Date Diagnosed Date Resolved Date Mediastinal mass 01/26/2025 02/26/2025 Mediastinal lymphadenopathy 01/26/2025 02/26/2025 Encounters Date Type Department Care Team Description 07/10/2025 3:00 PM EDT Office Visit Pulmonology - [place] [address] [phone] Rosy Rhodes MD Bilateral pleural effusion (Primary Dx); Thymic cyst (CMS/HCC V24); Chest pain on breathing 06/01/2025 11:00 AM EDT Office Visit Thoracic Surgery - [place] [address] [phone] Linda Ureña NP Thymic cyst (CMS/HCC V24) (Primary Dx); Pleuritic chest pain 05/29/2025 8:26 PM EDT - 05/29/2025 10:17 PM EDT Emergency [facility] Emergency [address] [place] [phone] Macrina Valiente MD Positive D dimer (Primary Dx); Pleural effusion, bilateral; Ground glass opacity present on imaging of lung Discharge Disposition: Home or Self Care 05/29/2025 3:00 PM EDT Office Visit Pulmonology [facility] [address] [phone] Rosy Rhodes MD Bilateral pleural effusion (Primary Dx); Chest pain on breathing 05/29/2025 Telephone Pulmonology - [place] [address] [place] [address] Rosy Rhodes MD 05/01/2025 4:31 PM EDT - 05/01/2025 11:59 PM EDT Hospital Encounter [facility] Xray [address] [place] [phone] Bilateral pleural effusion Discharge Disposition: Home or Self Care 05/01/2025 3:00 PM EDT Office Visit Pulmonology - [place] [address] [phone] Rosy Rhodes MD Bilateral pleural effusion (Primary Dx) from Last 3 Months Surgical History Surgery [...] Date Smoking Tobacco: Every Day Cigarettes 0.8 30.9 Started: 1994 Tobacco Cessation:Ready to Q uit: [...] Sign Reading Time Taken Comments Blood Pressure 140/77 07/10/2025 3:13 PM EDT Pulse 99 07/10/2025 3:13 PM EDT Temperature 36.7 C (98.1 F) 07/10/2025 3:13 PM EDT Respiratory Rate 14 06/01/2025 11:43 AM EDT Oxygen Saturation 99% 07/10/2025 3:13 PM EDT Inhaled Oxygen Concentration - - Weight 94.3 kg (208 lb) 07/10/2025 3:13 PM EDT Height 160 cm (5' 3 ) 06/01/2025 11:43 AM EDT Body Mass Index 36.85 06/01/2025 11:43 AM EDT Plan of Treatment Upcoming Encounters Date Type Department Care Team (Late st Contact Info) Description 08/31/2025 3:30 PM EST Appointment [facility] CT Scan [address] [place] [address] Health Maintenance Due Date Last Done Comments [...] 06/18/2024 Depression Screening 09/10/2024 COVID-19 Vaccine ( - season) 2025 06/20/2022, 05/17/2021 Influenza Vaccine [...] 05/01/2025 4:36 PM EDT Bilateral pleural effusion CT THORACENTESIS PLEURAL SPACE NEEDLE/CATH ASPIRATION W IMAGING GUIDANCE Routine 05/01/2025 4:29 PM EDT Bilateral pleural effusion CT THORACENTESIS PLEURAL SPACE NEEDLE/CATH ASPIRATION W IMAGING [...] 05/01/2025 3:00 PM EDT Bilateral pleural effusion from Last 3 Months Results * CT [...] Burnette MD on 05/29/2025 21:25:46 Rachael RED [facility] CT PROCEDURES Final Result * (ABNORMAL) CBC auto differential (05/29/2025 3:41 PM EDT) WBC 8.9 4.8 - 10.8 K/[facility] LAB HEMETOLOGY METHOD 05/29/2025 4:16 PM [facility] RBC 4.10 3.80 - 4.80 M/mcL LAB HEMETOLOGY METHOD 05/29/2025 4:16 PM [facility] Hemoglobin 11.1(L) 11.5 - 16.0 g/dL LAB HEMETOLOGY METHOD 05/29/2025 4:16 PM [facility] Hematocrit 34.2(L) 35.0 - 47.0 % LAB HEMETOLOGY METHOD 05/29/2025 4:16 PM [facility] MCV 83.6 79.0 - 98.0 FL LAB HEMETOLOGY METHOD 05/29/2025 4:16 PM [facility] MCH 27.1 27.0 - 32.0 pcg LAB HEMETOLOGY METHOD 05/29/2025 4:16 PM [facility] MCHC 32.5 32.0 - 37.0 g/dL LAB HEMETOLOGY METHOD 05/29/2025 4:16 PM [facility] RDW 14.0 11.0 - 15.0 % LAB HEMETOLOGY METHOD 05/29/2025 4:16 PM [facility] Platelets 390 130 - 400 K/mcL LAB HEMETOLOGY METHOD 05/29/2025 4:16 PM [facility] MPV 9.1 7.0 - 11.0 FL LAB HEMETOLOGY METHOD 05/29/2025 4:16 PM [facility] NRBC 0.0 <1.0 % LAB HEMETOLOGY METHOD 05/29/2025 4:16 PM [facility] NRBC Absolute 0.00 <0.10 K/mcL LAB HEMETOLOGY METHOD 05/29/2025 4:16 PM [facility] Neutrophils Relative 58.6 % LAB HEMETOLOGY METHOD 05/29/2025 4:16 PM [facility] Lymphocytes Relative 30.4 % LAB HEMETOLOGY METHOD 05/29/2025 4:16 PM EDT [facility] Monocytes Relative 4.4 % LAB HEMETOLOGY METHOD 05/29/2025 4:16 PM [facility] Eosinophils Relative 5.5 % LAB HEMETOLOGY METHOD 05/29/2025 4:16 PM EDT [facility] Basophils Relative 0.8 % LAB HEMETOLOGY METHOD 05/29/2025 4:16 PM EDT [facility] Immature Granulocytes Relative 0.3 % LAB HEMETOLOGY METHOD 05/29/2025 4:16 PM EDT [facility] Neutrophils Absolute 5.20 1.50 - 7.00 K/mcL LAB HEMETOLOGY [facility] Lymphocytes Absolute 2.70 1.00 - 5.00 K/mcL LAB HEMETOLOGY METHOD 05/29/2025 4:16 PM EDT [facility] Monocytes Absolute 0.39 0.20 - 1.00 K/mcL LAB HEMETOLOGY METHOD 05/29/2025 4:16 PM EDT [facility] Eosinophils Absolute 0.49 0.00 - 0.50 K/mcL LAB HEMETOLOGY METHOD 05/29/2025 4:16 PM EDT [facility] Basophils Absolute 0.07 0.00 - 0.20 K/mcL LAB HEMETOLOGY METHOD 05/29/2025 4:16 PM T [facility] Immature Granulocytes Absolute 0.03 0.00 - 0.03 K/mcL LAB HEMETOLOGY METHOD 05/29/2025 4:16 PM [facility] Blood Venous blood specimen / Unknown Venipuncture / Unknown 05/29/2025 3:41 PM EDT 05/29/2025 4:05 PM EDT us Rosy Rhodes MD LAB BLOOD ORDERABLES Final Result Performing Organization Address [facility]/ZIP Co de Phone Number [facility] [address] [place] [address], [place] [phone] * (ABNORMAL) D-Dimer (05/29/2025 3:41 PM EDT) D-Dimer, Quant (D-DU) 3,062(H) <=230 ng/mL DDU LAB COAGULATION METHOD 05/29/2025 4:20 PM EDT [facility] Blood Venous blood specimen / Unknown Venipuncture / Unknown 05/29/2025 3:41 PM EDT 05/29/2025 4:05 PM EDT Narrative [facility] - 05/29/2025 4:20 PM EDT D-Dimer <230 ng/mL (D-Dimer units) is the threshold for exclusion of DVT/PE. D-Dimer may be elevated in: Critically ill, severely infected, trauma patients, DIC, acute CVA, acute VA, unstable angina, AF, old age, , and smoking. D-Dimer may be decreased with: Initiation of heparin therapy and oral anticoagulants. Rosy Rhodes MD LAB BLOOD ORDERABLES Final Result Performing Organization Address [facility]/ZIP Co de Phone Number [facility] [address] [place] [address], [place] [phone] * (ABNORMAL) Basic metabolic panel (05/29/2025 3:41 PM EDT) Sodium 138 133 - 145 mmol/L LAB CHEMISTRY METHOD 05/29/2025 4:31 PM EDT [facility] Potassium 4.0 3.5 - 5.5 mmol/L LAB CHEMISTRY METHOD 05/29/2025 4:31 PM EDT [facility] Chloride 106 96 - 110 mmol/L LAB CHEMISTRY METHOD 05/29/2025 4:31 PM EDT [facility] CO2 28 21 - 32 mmol/L LAB CHEMISTRY METHOD 05/29/2025 4:31 PM EDT [facility] Anion Gap 4 3 - 11 LAB CHEMISTRY METHOD 05/29/2025 4:31 PM [facility] Glucose 108(H) 70 - 100 mg/dL LAB CHEMISTRY METHOD 05/29/2025 4:[facility] BUN 9 5 - 25 mg/dL LAB CHEMISTRY METHOD 05/29/2025 4:31 PM EDT [facility] Creatinine 0.86 0.50 - 1.10 mg/dL LAB CHEMISTRY METHOD 05/29/2025 4:31 PM [facility] eGFR 80 >=60 mL/min/1. 73m2 LAB CHEMISTRY METHOD 05/29/2025 4:31 PM [facility] Comment:Calculation based on the Chronic Kidney Disease Epidemiology Collaboration (CKD-EPI) equation refit without adjustment for race. BUN/Creatinine Ratio 10.5 LAB CHEMISTRY METHOD 05/29/2025 4:31 PM [facility] Calcium 9.1 8.5 - 10.5 mg/dL LAB CHEMISTRY METHOD 05/29/2025 4:31 PM [facility] Blood Venous blood specimen / Unknown Venipuncture / Unknown 05/29/2025 3:41 PM EDT 05/29/2025 4:05 PM EDT us Rosy Rhodes MD LAB BLOOD ORDERABLES Final Result [facility] [address] [place] [address], [place] [phone] * Non-gynecologic cytology (05/05/2025 8:05 AM EDT) Only the most recent of2 resultswithin the time period is included. Final Diagnosis Pleural Fluid, Left, Thoracentesis, (ThinPrep, cell block): No malignant cells identified Eosinophils, lymphocytes and histiocytes present 05/05/2025 8:05 AM EDT [facility] Specimen A Adequacy Satisfactory for evaluation 05/05/2025 8:05 AM EDT [facility] Gross Description A. Pleural Cavity, Left, Pleural Cavity Left: Received 400ml of dark cloudy fluid 1 thin prep, 1 cell block Formalin fixation 7.5 put in formalin at 1330 05/05/2025 8:05 AM EDT [facility] Disclaimer Unless otherwise specified, all tissue is 10% NB formalin fixed and paraffin embedded. Technical cytopathology services provided by [facility], at [address] [place] [id number] (CLIA # [id number]/Jose Paula MD, Oil Drilling Engineer.) 05/05/2025 8:05 AM EDT [facility] Pleural Fluid Structure of left pleural cavity / Unknown 05/04/2025 1:00 PM EDT us Rosy Rhodes MD LAB CYTOLOGY ORDERABLES Fi nal Result [facility] [address] [place] [address], * XR Chest 2 Views (05/01/2025 4:36 PM EDT) Anatomical Region Laterality Modality Body Radiographic Hilda ging 05/01/2025 4:41 PM EDT Impressions 05/01/2025 4:41 PM EDT FINDINGS/IMPRESSION: No pneumothorax status post bilateral thoracenteses with small residual effusions remaining. -------- FINAL REPORT -------- Dictated By: Garrett Maria Dictated Date: 05/01/2025 16:41 ET Assigned Physician: Garrett Maria Reviewed and Electronically Signed By: Garrett aMria Signed Date: 05/01/2025 16:41 ET Workstation ID: [id number] Transcribed By: Self Edit Transcribed Date: 05/01/2025 [...] Signed Date: 05/01/2025 16:41 ET Workstation ID: [id number] Transcribed By: Self Edit Transcribed Date: 05/01/2025 16:41 ET us Rosy Rhodes MD IMG XR PROCEDURES Final Re sult * CT THORACENTESIS PLEURAL SPACE NEEDLE/CATH ASPIRATION W IMAGING GUIDANCE (05/01/2025 4:29 PM EDT) Narrative Rosy Rhodes MD - 05/01/2025 4:29 PM EDT Rosy Rhodes MD 05/01/2025 4:49 PM Thoracentesis Date/Time: 05/01/2025 4:29 PM Performed by: Rosy Rhodes MD Authorized by: Rosy Rhodes MD Consent: Consent obtained: Verbal Consent given by: Patient Risks discussed: Bleeding, pneumothorax, pain and infection Alternatives discussed: No treatment Sarah Ann protocol: Procedure explained and questions answered to [...] midscapular line Intercostal space: 7th Puncture method: Nsfw-mnd-jvleqn catheter Ultrasound guidance: yes Indwelling catheter placed: no Needle gauge: 20 Catheter size: 8 Fr Number of attempts: 1 Fluid characteristics: serous. Post-procedure details: Post-procedure chest x-ray: pending. Procedure completion: Tolerated well, no immediate complications Comments: 350 mL removed, stopped for no further fluid us Rosy Rhodes MD IN CLINIC/BEDSIDE ORDERABL ES Final Result * CT THORACENTESIS PLEURAL SPACE NEEDLE/CATH ASPIRATION W IMAGING GUIDANCE (05/01/2025 4:28 PM EDT) Rosy Nuno MD - 05/01/2025 4:28 PM EDT Rosy Rhodes MD 05/01/2025 4:49 PM Thoracentesis Date/Time: 05/01/2025 4:28 PM Performed by: Rosy Rhodes MD Authorized by: Rosy Rhodes MD Consent: Consent obtained: Verbal Consent given by: Patient Risks discussed: Bleeding, infection, pain and pneumothorax Alternatives discussed: No treatment Sarah Ann protocol: Procedure explained and questions answered to [...] midscapular line Intercostal space: 7th Puncture method: Bodl-pfk-lmjpto catheter Ultrasound guidance: yes Indwelling catheter placed: [...] 3:00 PM EDT) Only the most recent of2 resultswithin the time period is included. Body Fluid Total Nucleated Cells 3,133 /mm3 LAB HEMETOLOGY METHOD 05/01/2025 6:48 PM EDT [facility] Body Fluid RBC 4,000 /mm3 LAB HEMETOLOGY METHOD 05/01/2025 6:48 PM EDT [facility] Body Fluid Color Yellow 05/01/2025 6:48 PM EDT [facility] Body Fluid Clarity Cloudy 05/01/2025 6:48 PM EDT [facility] Body Fluid Source Pleural 05/01/2025 6:48 PM EDT [facility] Comment:Left Pleural Fluid Structure of left pleural cavity / Unknown 05/01/2025 3:00 PM EDT 05/01/2025 4:48 PM EDT Narrative [facility] - 05/01/2025 6:48 PM EDT No reference ranges have been established for body fluids. Clinical correlation recommended. us Rosy Rhodes MD LAB BODY FLUIDS AND STOOLS ORDERABLES Final Result [facility] [address] [place] [address], [place] [phone] * Culture body fluid with gram stain (05/01/2025 3:00 PM EDT) Only the most recent of2 resultswithin the time period is included. Fluid Culture No growth at 3 days LAB MICROBIOLOGY METHOD 05/04/2025 11:15 AM EDT [facility] Gram Stain Result No polymorphonuclear leukocytes, No epithelial cells, and No organisms noted 05/04/2025 11:15 AM EDT [facility] Pleural Fluid Structure of left pleural cavity / Unknown Non-blood Collection / Unknown 05/01/2025 3:00 PM EDT 05/01/2025 4:48 PM EDT Rosy Rhodes MD LAB MICROBIOLOGY - GENERAL ORDERABLES Final Result [facility] [address] [place] [address], [place] [phone] * Differential body fluid (05/01/2025 3:00 PM EDT) Only the most recent of2 resultswithin the time period is included. Fluid Neutrophils % 7 % 05/01/2025 6:44 PM EDT [facility] Fluid Lymphocytes % 42 % 05/01/2025 6:44 PM EDT [facility] Fluid Monocytes/Macrop hages 23 % 05/01/2025 6:44 PM EDT [facility] Fluid Eosinophils % 28 % 05/01/2025 6:44 PM EDT [facility] Fluid Basophils % 0 % 05/01/2025 6:44 PM EDT [facility] Fluid Other Cells % 0 % 05/01/2025 6:44 PM EDT [facility] Pleural Fluid Structure of left pleural cavity / Unknown 05/01/2025 3:00 PM EDT 05/01/2025 4:48 PM EDT Narrative [facility] - 05/01/2025 6:44 PM EDT No reference ranges have been established for body fluids. Clinical correlation recommended. Rosy Rhodes MD LAB BODY FLUIDS AND STOOLS ORDERABLES Final Result [facility] [address] [place] [address], [place] [phone] * Protein, body fluid (05/01/2025 3:00 PM EDT) Only the most recent of2 resultswithin the time period is included. Protein, Fluid 5.2 See Comment g/dL LAB CHEMISTRY METHOD 05/01/2025 5:33 PM EDT [facility] Pleural Fluid Structure of left pleural cavity / Unknown Non-blood Collection / Unknown 05/01/2025 3:00 PM EDT 05/01/2025 4:48 PM EDT Narrative [facility] - 05/01/2025 5:33 PM EDT No reference ranges have been established for body fluids. Clinical correlation recommended. Rosy Rhodes MD LAB BODY FLUIDS AND STOOLS ORDERABLES Final Result Performing Organization Address [facility]/ZIP Co de Phone Number [facility] [address] [place] [address], [place] [phone] * Lactate dehydrogenase, body fluid (05/01/2025 3:00 PM EDT) Only the most recent of2 resultswithin the time period is included. [facility] LD, Fluid 587 See Comment unit/L LAB CHEMISTRY METHOD 05/01/2025 5:33 PM EDT [facility] Pleural Fluid Structure of left pleural cavity / Unknown Non-blood Collection / Unknown 05/01/2025 3:00 PM EDT 05/01/2025 4:48 PM EDT Narrative [facility] - 05/01/2025 5:33 PM EDT No reference ranges have been established for body fluids. Clinical correlation recommended. Rosy Rhodes MD LAB BODY FLUIDS AND STOOLS ORDERABLES Final Result Performing Organization Address City/[facility]/ZIP Co de Phone Number [facility] [address] [place] [address], [place] [phone] * Glucose, body fluid (05/01/2025 3:00 PM EDT) Only the most recent of2 resultswithin the time period is included. [facility] Glucose, Fluid 103 See Comment mg/dL LAB CHEMISTRY METHOD 05/01/2025 5:33 PM EDT [facility] Pleural Fluid Structure of left pleural cavity / Unknown Non-blood Collection / Unknown 05/01/2025 3:00 PM EDT 05/01/2025 4:48 PM EDT Narrative [facility] - 05/01/2025 5:33 PM EDT No reference ranges have been established for body fluids. Clinical correlation recommended. us Rosy Rhodes MD LAB BODY FLUIDS AND STOOLS ORDERABLES Final Result [facility] [address] [place] [address], from Last 3 Months Insurance MEDICAID - [...] currently active code status orders. Care Teams Engineer Technical Staff Relationship Specialty Start Date End Date Mychal Long MD [address] [place] [address] [place] [address] PCP - General 12/26/11
== END ==
LOC: HO.NUCMED 08:31
PROVIDERS: PCP Internal Medicine; Visit Provider Nurse Practitioner
DX: R11.0 Nausea (principal); R10.9 Unspecified abdominal pain
CPT/HCPCS: 78264; A9541

== ENCOUNTER → 2025-07-22 08:33 | Outpatient (BNV) | payer MEDICAID, SELFPAY | PROVIDERS: PCP Internal Medicine; Visit Provider Radiology Diagnostic Radiology | DX: R11.0 Nausea (principal) | CPT/HCPCS: 78264 ==

== ENCOUNTER 2025-08-20 14:24 | Outpatient (REF) | payer MEDICAID, SELFPAY ==
[2025-08-20 17:56] LABS: MANUAL DIFF FLAG NO
[2025-08-20 18:27] LABS: Hematocrit 40.0 % (37.0-47.0); Hemoglobin 13.0 g/dl (12.0-16.0); Imm Gran Abs Auto 0.02 X10*3/uL (0.00-0.03); Imm Gran Pct Auto 0.2 % (0.0-0.4); Lymphocytes Absolute Auto 3.4 X10*3/uL (1.2-4.9); Mean Corpuscular HGB Conc 32.5 g/dl (31.0-35.0); Mean Corpuscular Hemoglobin 28.8 pg (27.0-33.0); Mean Corpuscular Volume 88.5 fL (80.0-98.0); NRBC Abs Auto 0.000 X10*3/uL (0.0-0.012); NRBC Pct Auto 0.0 /100WBC (0.0-0.2); Platelet Count 298 X10*3/uL (160-400); Red Blood Count 4.52 X10*6/uL (4.20-5.50); White Blood Count 8.1 X10*3/uL (4.8-10.8)
[2025-08-20 18:31] LABS: Protein/Creatinine Ratio, Ur 0.04 (<0.2); Total Protein Urine Random 18 mg/dL (<12)
[2025-08-20 18:34] LABS: Alanine Aminotransferase 13 U/L (0-31); Albumin Level 4.3 g/dL (3.5-5.0); Alkaline Phosphatase 110 U/L (39-117); Anion Gap 12 (12-20); Aspartate Amino Transferase 18 U/L (5-31); Blood Urea Nitrogen 13 mg/dL (9-16); Calcium 9.2 mg/dL (8.4-10.2); Carbon Dioxide 26 mmol/L (22-29); Chloride 108 mmol/L (96-108); Estimated Glomerular Filt Rate > 60; Potassium 3.7 mmol/L (3.3-5.1); Sodium 142 mmol/L (135-145); Total Protein 7.9 g/dL (6.5-8.0)
[2025-08-20 18:35] LABS: Appearance Urine Turbid; Glucose Urine UA Negative (Negative); PH 6.0 (5.0-9.0); Specific Gravity - Urine 1.020 (1.005-1.025)
== END 2025-08-20 14:25 | disposition home or self-care (01) ==
LOC: HO.HKASLDS 14:24
PROVIDERS: PCP Internal Medicine; Visit Provider Student in an Organized Health Care Education/Training Program
DX: M30.1 Polyarteritis with lung involvement [Churg-Strauss] (principal); D72.18 Eosinophilia in diseases classified elsewhere; M17.0 Bilateral primary osteoarthritis of knee
CPT/HCPCS: 36415; 80053; 81001; 82570; 84156; 85025; 85652; 86021; 86140

== ENCOUNTER 2025-08-20 14:24 | Outpatient (AMB) | payer MEDICAID, SELFPAY ==
--- OUTSIDE RECORDS SUMMARY | 2025-08-18 14:15 | XMS_ITS | Encounter Summary ---
Author Organization [employer] Address [address] [place] [address] 7 [place] [address] Care Team Providers Care Pickle Water Pump Operator Name Role Phone Mychal Fields MD Primary Care Provide r Hima Fam Unavailable Unavailable [facility] Unavailable [phone] Reason for Referral * (Routine) - Authorized Specialty Diagnoses / Procedures Referred By Contramandeep t Referred To Contact Diagnoses Encounter for immunization Procedures FLU VACCINE TRIVALENT [id number] (Fluarix) 19 yrs + Mychal Fields MD [address] [place] [address] Phone: tel: fax: Referral ID Status Reason Start Date Expiration Date V isits Requested Visits Authorized [id number] Authorized 08/18/2025 08/18/2026 1 1 Reason for Visit * Reason Comments Follow up HTN Encounter Details Date Type Department Care Team (Late st Contact Info) Description 08/18/2025 2:15 PM EST Office Visit [facility] MEDICINE [address] [place], [place] [phone] Mychal Fields MD [address] [place], [place] [phone] Essential hypertension (Primary Dx); Low vitamin D level; Anxiety and depression; Class 2 severe obesity due to excess calories with serious comorbidity and body mass index (BMI) of 36.0 to 36.9 in adult; Dietary counseling; Exercise counseling; Encounter for immunization Social History Tobacco Use Types Packs/Day Years [...] Sign Reading Time Taken Comments Blood Pressure 160/84 08/18/2025 1:53 PM EST Pulse 80 08/18/2025 1:53 PM EST Temperature 36.2 C (97.2 F) 08/18/2025 1:53 PM EST Respiratory Rate 18 08/18/2025 1:53 PM EST Oxygen Saturation - - Inhaled Oxygen Concentration - - Weight 96.7 kg (213 lb 3.2 oz) 08/18/2025 1:53 P M EST Height 162.6 cm (5' 4 ) 08/18/2025 1:53 PM EST Body Mass Index 36.6 08/18/2025 1:53 PM EST documented in this encounter Progress Notes * Mychal Morris MD - 08/18/2025 2:15 PM EST SUBJECTIVE Elaine Rodas is a 54 y.o. adult who presents for Follow up HTN. Elaine Rodas, 54 years Joint Pain - History of pain in the knees - Previous injections in the knees - Appointment for knee injections was rescheduled Smoking - Currently smoking - Aware of recommendations to stop smoking Weight - Advised to lose some weight in the past Pulmonary Evaluation - Recent pulmonary study performed, results not considered significant by patient - Ortho Rn reviewed results, no major findings reported Misc - Multiple pending specialist appointments mentioned (urology, gastroenterology, gynecology, mammography, rheumatology) HPI Review of Systems Constitutional: Negative for fever. HENT: Negative for sore throat. Respiratory: Negative for cough and shortness of breath. Cardiovascular: Negative for chest pain. Gastrointestinal: Negative for abdominal pain. Neurological: Negative for headaches. Allergies[1] OBJECTIVE Vitals: 08/18/25 1353 BP: (!) 160/84 BP Location: Left arm Patient Position: Sitting BP Cuff Size: Large adult Pulse: 80 Resp: 18 Temp: 97.2 ??F (36.2 ??C) TempSrc: Oral Weight: 213 lb 3.2 oz (96.7 kg) Height: 5' 4 (1.626 m) Physical [...] Assessment/Plan Problem List Items Addressed This Visit Essential hypertension - Primary Patient here for a follow up BP elevated, pt has been out of Amlodipine for days She is on: Losartan 100 mg po daily, Norvasc 10 mg po daily Patient to continue taking medications as prescribed. Most recent Lab Results Component Value Date NA 141 05/22/2025 NA 141 03/17/2025 K 3.8 05/22/2025 K 3.7 03/17/2025 CL 105 05/22/2025 CL 109 (H) 03/17/2025 BUN 8 (L) 05/22/2025 BUN 9 03/17/2025 CREATININE 0.85 05/22/2025 CREATININE 1.1 05/12/2025 Within normal limits Plan: Continue current regimen Relevant Medications amLODIPine (Norvasc) 10 MG tablet Other Relevant Orders Lipid Panel, Standard Anxiety and depression Relevant Medications clonazePAM (KlonoPIN) 1 MG tablet zolpidem (Ambien) 10 MG tablet Class 2 severe obesity due to excess calories with serious comorbidity in adult Patient has been counseled and educated about diet and exercise. Personal goal of weight loss discussedPatient has comorbidity of: HTN Other Visit Diagnoses Low vitamin D level Relevant Medications cholecalciferol (Vitamin D-3) 25 MCG (1000 UT) capsule Dietary counseling Exercise counseling This note was drafted using Ambient (AI) technology. The patient/patient's guardian has been informed and has consented to the use of this technology: Yes No future appointments. [1] Allergies Allergen Reactions Gramineae Pollens Hydrocodone Other Reaction(s): STOMACH PAIN Lisinopril Cough Other reaction(s): unspecified Molds & Smuts Verapamil Other reaction(s): unspecified Other Reaction(s): unknown Penicillins Other Reaction(s): VAGINAL FUNGUS INFECTION documented in this encounter Miscellaneous Notes * Addendum Note - González Vivas MA - 08/18/2025 2:15 PM ESTAddended by: GONZÁLEZ VIVAS on: 08/18/2025 02:20 PM Modules accepted: Orders * Assessment & Plan Note - Mychal Mroris MD - 08/18/2025 2:07 PM EST Associated Problem(s): Class 2 severe obesity due to excess calories with serious comorbidity in adult Patient has been counseled and educated about diet and exercise. Personal goal of weight loss discussedPatient has comorbidity of: HTN * Assessment & Plan Note - Mychal Morris MD - 08/18/2025 1:57 PM EST Associated Problem(s): Essential hypertension Patient here for a follow up BP elevated, pt has been out of Amlodipine for days She is on: Losartan 100 mg po daily, Norvasc 10 mg po daily Patient to continue taking medications as prescribed. Most recent Lab Results Component Value Date NA 141 05/22/2025 NA 141 03/17/2025 K 3.8 05/22/2025 K 3.7 03/17/2025 CL 105 05/22/2025 CL 109 (H) 03/17/2025 BUN 8 (L) 05/22/2025 BUN 9 03/17/2025 CREATININE 0.85 05/22/2025 CREATININE 1.1 05/12/2025 Within normal limits Plan: Continue current regimen documented in this encounter Plan of Treatment Scheduled Orders Name Type Priority Associated Diagnoses Orde r Schedule Lipid Panel, Standard Lab Routine Essential hypertension Ordered: 08/18/2025 documented as of this encounter Visit Diagnoses Diagnosis Essential hypertension- Primary Unspecified essential hypertension Low vitamin D level Anxiety and depression Class 2 severe obesity due to excess calories with serious comorbidity and body mass index (BMI) of 36.0 to 36.9 in adult Dietary counseling Dietary surveillance and counseling Exercise counseling Encounter for immunization documented in this encounter Additional Health Concerns Assessment Noted Time PHQ-9 Depression Total Score: 15 025 12:51 PM EDT documented as of this encounter Care Teams Pickle Water Pump Operator Relationship Specialty Start Date End Date Mychal Fields MD [address] [place] [address] PCP - General Internal Medicine 04/30/14 Hima Fam FNP [address] [place] [address] Nurse Practitioner Family Medicine 08/01/23 Rheumatology, [address] [place] [address] Rheumatology 06/30/25 documented as of this encounter
--- NOTE | 2025-08-20 14:42 | MHC.OFFVIS ---
Vital Signs 08/20/25 14:52 Height 5 ft 3 in Weight 211 lb 3.245 oz BMI 37.4 BP 160/100 H Blood Pressure Location Lt brachial Position Sitting Pulse 75 Pulse Source Pulse Oximeter Pulse Oximetry (%) 95 Oxygen Delivery Method Room Air Intake Visit Reasons: BL knee pain/ injection Intake Note: Patient presents today for bilateral knee injections follow up. Bulking Machine Operator Required: Yes Bulking Machine Operator Services: Bulking Machine Operator Offered & Declined Information Interpreted: non-clinical & clinical Accompanied by: Self / Same As Patient Allergies metronidazole Allergy (Severe, Verified 08/20/25 14:51) vomiting Penicillins Allergy (Mild, Verified 08/20/25 14:51) VAGINAL FUNGUS INFECTION lisinopril (LISINOPRIL) Allergy (Unknown, Verified 08/20/25 14:51) COUGH verapamil Allergy (Unknown, Verified 08/20/25 14:51) unknown amoxicillin Adverse Reaction (Verified 08/20/25 14:51) Unknown Medication List - Last Reconciled 08/20/25 by Brigid West MD albuterol sulfate 90 mcg/actuation (Ventolin HFA) 2 puffs PO Q4H PRN amlodipine 10 mg PO DAILY blood pressure test kit-large As directed cholecalciferol (vitamin D3) (Vitamin D3) 25 mcg PO DAILY clonazepam 1 mg PO TID PRN dexlansoprazole (Dexilant) 60 mg PO DAILY 30 days doxycycline monohydrate 100 mg PO BID famotidine (Pepcid) 40 mg PO BEDTIME PRN fluticasone furoate-vilanterol 200-25 mcg/dose (Breo Ellipta) 1 ea inhalation DAILY fluticasone propionate 50 mcg/actuation 1 spray intranasal BID hydrocortisone 2.5% (Proctosol HC) 1 appl IA BID lidocaine 5% patches topical vvbetl-fntsgzdv-dhxriqz (pork) 24,000-76,000 -120,000 unit (Creon) 2 caps PO BID 30 days losartan 100 mg PO DAILY minoxidil 2.5 mg PO QAM nicotine (polacrilex) 2 mg buccal Q8H PRN ondansetron 4 mg PO BID-TID PRN prednisone 10 mg PO DIRECTED sennosides (senna) 1-2 tabs qhs orally bedtime; 30 days solifenacin (Vesicare) 10 mg PO DAILY Held on 05/22/25. Instructions: pt not taking r/t dry mouth tramadol 100 mg (2 x 50 mg) PO TID 30 days zolpidem 10 mg PO BEDTIME PRN HPI Comments Details: Patient is a 54 y.o. female depression, hypertension who is here today for follow up of polyarticular osteoarthritis and fibromyalgia Interval History: Patient last seen 05/14/25. - On Tramadol 50mg tid prn - Completed Euflexxa series 11/2024 - Euflexxa was beneficial, still having efficacy - Has pulmonary nodules and had CT surgery to remove same, patient unaware of pathology results Today - On Tramadol 50mg tid prn - patient follows up with pulmonology for anterior mediastinal lymphadenopathy/mass. 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 Post surgery x-rays showed small bilateral pleural effusions - She had a CT scan done 03/17/2025 which noted moderate bilateral pleural effusions with patient reporting feeling overall unwell with associated dry cough and shortness of breath - she underwent right thoracentesis 03/27/2025 removing 600 cc of bright yellow pleural fluid. No cough, hemoptysis, wheezing. Left sided pleural effusion too small for safe drainage - thoracentesis revealed eosinophilic exudate with negative cytology and culture - had recurrent effusions in April 2025 again had thoracentesis R 450mL, L 350mL which showed eosinophilic exudative - had follow up in May complaining of moderate to severe pleuritic chest pain. CTA showed trace bilateral pleural effusions - Denies hemoptysis, rash, worsening neuropathy, worsening abdominal pain Rheumatologic History: Patient established care with Rheumatology 01/30/2022 Fibromyalgia and polyarticular osteoarthritis She has tried and failed Lyrica, gabapentin cymbalta, amitriptyline, and her insurance did not approve Savella. She estimates that she gets 6 hours of sleep at night and is taking ambien. Unable to get tramadol due to insurance issues and baclofen did not help Current Rheumatology Medication(s): Tramadol 50mg tid prn [facility] Medical History (Updated 06/10/25 @ 16:06 by JEB lOsen) Dyspnea Urine incontinence Hematuria Right sided abdominal pain Chest discomfort Well woman exam Nausea Post-cholecystectomy syndrome Cataract, right eye Bilateral primary osteoarthritis of knee Gallstone pancreatitis Palpitations Fibromyalgia Depression Glaucoma HTN (hypertension) Surgical History S/P thoracotomy H/O colonoscopy History of tubal ligation Hx of carpal tunnel repair Hx of cholecystectomy Hx of knee surgery Family History Father Kidney disease Mother CVD (cardiovascular disease) Colon cancer Social History Alcohol intake: never Patient Tobacco Use Status: Current everyday Tobacco user Cigarette Packs Per Day: 0.5 Cigarettes Per Day: 10 Years Smoked: 30 Female Reproductive History Menstrual Age of Menarche: 9 Review of Systems Narrative Review of Systems Constitutional: Denies fever, chills, weight loss ENT: Denies vision changes, eye pain or eye redness, dental caries, dry mouth GI: Denies nausea, vomiting, diarrhea, abdominal pain, change in BM Cards: Denies chest pain, palpitations Skin: Denies Raynaud's, rash, nail changes, photosensitivity, SHELLFISH GROWER: Denies headaches, weakness, paresthesias, recurrent falls MSK: as per HPI All other systems reviewed and are unremarkable except noted above Physical Exam Exam Exam: Vital signs reviewed Physical Examination CONSTITUITIONAL Patient alert and cooperative. Well appearing and in no apparent painful distress CHEST/RESPIRATORY SYSTEM Normal respiratory effort and able to speak in complete sentences. Good air entry bilaterally. No crackles, rales, rhonchi, wheezes heard. SKIN No rashes Vital Signs: Last Vital Signs Pulse 75 08/20/25 14:52 BP 160/100 H 08/20/25 14:52 Pulse Ox 95 08/20/25 14:52 Oxygen Delivery Method Room Air 08/20/25 14:52 BMI result Body Mass Index 37.4 Results Reviewed Results Reviewed: Laboratory Tests 03/17/25 05/22/25 06/30/25 18:42 14:00 10:14 WBC 10.2 RBC 4.22 Hgb 11.6 L Hct 35.6 L Plt Count 274 Sodium 141 Potassium 3.8 Chloride 105 Carbon Dioxide 29 BUN 8 L Creatinine 0.85 AST 18 ALT 12 Laboratory Tests 02/05/19 03/17/25 06/08/25 16:45 14:07 14:31 Rheumatoid Factor < 15.0 Cycl Citrul Peptide IgG <16 MAURICE Screen NEGATIVE Proteinase 3 (PR3) Ab 13.9 H Myeloperoxidase Ab <1.0 XR Chest 06/2025 FINDINGS: The lungs are clear. No pulmonary edema or consolidation. Blunting of both costophrenic angles suggestive of very small bilateral pleural effusions. No pneumothorax. Cardiac and mediastinal contours are normal. Degenerative changes of the spine. IMPRESSION: No evidence of pneumonia. Very small bilateral pleural effusions. CTA Chest 05/2025 FINDINGS: QUALITY OF STUDY/CONTRAST BOLUS: Adequate PULMONARY ARTERIES: No filling defects are identified. THORACIC AORTA: Unremarkable LUNGS AND PLEURA: Small moderate layering pleural effusions are decreased when compared to the prior. Linear atelectasis is present in the lingula, right middle lobe, and posterior left lower lobe on the prior examination has improved. Mild compressive atelectasis is again noted along the interface with pleural effusions in the lower lobes. MEDIASTINUM: There is mildly increased density in the anterior mediastinum that was present on the most recent prior. On the prior studies from 2023, there were masses or enlarged lymph nodes in this region. CORONARY ARTERY CALCIFICATION: Present CHEST WALL/AXILLA: No axillary or internal mammary lymphadenopathy. UPPER ABDOMEN: Unremarkable BONES: Mild degenerative changes are present in the thoracic spine. IMPRESSION: No evidence of pulmonary embolus. Small to moderate bilateral pleural effusions have decreased in size since the prior examination. There is also improving subsegmental atelectasis since the prior. There is nonspecific hazy increased density in the anterior superior mediastinum that was also present on the most recent prior. On the prior examinations from 2023, there was adenopathy or nodular masses in this region. Thymic abnormality related to myasthenia gravis should be considered. Correlate clinically. Assessment & Plan Assessment & Plan (1) Eosinophilic granulomatosis with polyangiitis (EGPA): Code(s): M30.1 - Polyarteritis with lung involvement [Churg-Faheem]; D72.18 - Eosinophilia in diseases classified elsewhere Plan: #?EGPA Patient is a 54-year-old female with recent onset of bilateral eosinophilic pleural effusions post thymectomy The patient's recent pleural effusion, now resolved, is considered a rare presentation of vasculitis. Given that her symptoms have resolved post-steroid treatment (2), initiating immunosuppressive therapy is not indicated at this time, a decision confirmed with a rheumatology colleague. The plan is for her to continue follow-up with pulmonology. Immunosuppression will be reconsidered if the pleural effusion recurs or if she develops new symptoms like a rash or hemoptysis. Blood work and a urinalysis will be performed today. Plan - Monitor off immunosuppression for now - Follow closely with pulm for recurrence - If recurrence recommending bronchial biopsy for confirmation (1) prior to starting immunosuppression - Labs today: UA, UPC, CBC. CMP, ESR, CRP, ANCA 1. Int. J. Curr. Res. Med. Sci. (2017). 3(10): 107-111 2. Rakesh Pope, Mei R, Randa A, De Latisha A, Duong O, Stephany R, Carsalomon G, PelJoelle G, Waldo M, Lowetti L, Nely A, D'Eribertoio L, Alan A, Pranay Lopez. Onset of ANCA-positive EGPA with bilateral pleural effusion: a case report. Curr Med Res Opin. 2023;40(12):9693-4015. doi: 10.1080/[id number]. Epub 2023Jul 29. PMID: 89086645. 3. Lanny G, Dhara A, Puneet E, et?al. Evidence-based guideline for the diagnosis and management of eosinophilic granulomatosis with polyangiitis.?Devi Rev Rheumatol. 2022;19(6):378?393. doi: 10.1038/[id number]-[id number]. (2) Bilateral primary osteoarthritis of knee: Code(s): M17.0 - Bilateral primary osteoarthritis of knee Category: Medical Plan: #Bilateral Knee OA Patient is a 54-year-old female with bilateral knee OA. Worsening knee pain Schedule appointment for repeat knee injections Plan I spent 45 minutes reviewing the record and labs, seeing the patient, discussing case with Dr. Maria (other theatrical scenic designer in the practice), discussing the treatment plan, literature search and documenting in the medical record Orders: Orders ANCA Vasculitides Today D72.18 - Eosinophilia in diseases classified elsewhere, M30.1 - Polyarteritis with lung involvement [Churg-Faheem] Complete Blood Count Auto Diff Today D72.18 - Eosinophilia in diseases classified elsewhere, M30.1 - Polyarteritis with lung involvement [Churg-Faheem] Erythrocyte Sedimentation Rate Today D72.18 - Eosinophilia in diseases classified elsewhere, M30.1 - Polyarteritis with lung involvement [Churg-Faheem] Comprehensive Met. Panel Today D72.18 - Eosinophilia in diseases classified elsewhere, M30.1 - Polyarteritis with lung involvement [Churg-Faheem] C Reactive Protein Today D72.18 - Eosinophilia in diseases classified elsewhere, M30.1 - Polyarteritis with lung involvement [Churg-Faheem] Protein Creatinine Ratio, Ur Today D72.18 - Eosinophilia in diseases classified elsewhere, M30.1 - Polyarteritis with lung involvement [Churg-Faheem] UA w Microscopic Today D72.18 - Eosinophilia in diseases classified elsewhere, M30.1 - Polyarteritis with lung involvement [Churg-Faheem] Coding Level of Care Code Est Pt Level 5 (62193) Add On Problem Visit Only Diagnoses Eosinophilic granulomatosis with polyangiitis (EGPA) M30.1; D72.18 Bilateral primary osteoarthritis of knee M17.0
[2025-08-20 14:52] VITALS: BP 160/100; PULSE 75; O2SAT 95; BMI 37.4
--- OUTSIDE RECORDS SUMMARY | 2025-08-20 22:03 | XMS_ITS | Encounter Summary ---
Author Organization [employer] Address [address] [place] [address] [address] [place] [address] Care Team Providers Care Security Manager Name Role Phone Mychal Fields MD Primary Care Provide r Hima Fam Unavailable Unavailable Yaneth Dotson RN Unavailable [phone] Mckenzie Silverio Unavailable [facility] Unavailable Encounter Details Date Type Department Care Team ([facility] st Contact Info) Description 12/04/2022 Telephone [facility] MEDICINE [address] [place], [place] [phone] Mychal Fields MD [address] [place], [place] [phone] Social History Tobacco Use Types Packs/Day Years [...] documented as of this encounter Care Teams Security Manager Relationship Specialty Start Date End Date Mychal Fields MD [address] [place] [address] PCP - General Internal Medicine 04/30/14 Hima Fam FNP [address] [place] [address] Nurse Practitioner Family Medicine 08/01/23 Yaneth Dotson, ALAN [address] [place] [address] Registered Nurse Family Medicine 02/24/25 07/09/25 Mckenzie Silverio 02/24/25 07/20/[address] [place] [address] Rheumatology 06/30/25 [facility] 02/13/25 03/29/25 documented as of this encounter
--- OUTSIDE RECORDS SUMMARY | 2025-08-20 22:03 | XMS_ITS | Encounter Summary ---
Author Organization [employer] Address [address] [place] [address] 7t [place] [address] Care Team Providers Care Analytics Specialist Name Role Phone Mychal Fields MD Primary Care Provide r Hima Fam Unavailable Unavailable Yaneth Dotson RN Unavailable [phone] Mckenzie Silverio Unavailable [facility] Unavailable [phone] Reason for Visit * Reason Comments Med Refill Encounter Details Date Type Department Care Team (Late st Contact Info) Description 07/27/2023 Refill [facility] MEDICINE [address] [place], [place] [phone] Mychal Fields MD [address] [place], [place] [phone] Social History Tobacco Use Types Packs/Day Years [...] documented as of this encounter Care Teams Analytics Specialist Relationship Specialty Start Date End Date Mychal Fields MD [address] [place] [address] PCP - General Internal Medicine 04/30/14 Hima Fam FNP [address] [place] [address] Nurse Practitioner Family Medicine 08/01/23 Yaneth Dotson RN [address] [place] [address] Registered Nurse Family Medicine 02/24/25 07/09/25 Mckenzie Silverio 02/24/25 07/20/[address] [place] [address] Rheumatology 06/30/25 [facility] 02/13/25 03/29/25 documented as of this encounter
--- OUTSIDE RECORDS SUMMARY | 2025-08-20 22:03 | XMS_ITS | Encounter Summary ---
Author Organization [employer] Address [address] [facility] [address]t [place] [address] Care Team Providers Care Automobile Painter Name Role Phone Mychal Fields MD Primary Care Provide r Hima Fam Unavailable Unavailable [facility] Unavailable [phone] Encounter Details Date Type Department Care Team (Latest Contact Info) Description 08/18/2025 Travel Social History Tobacco Use Types Packs/Day [...] documented as of this encounter Care Teams Automobile Painter Relationship Specialty Start Date End Date Mychal Fields MD [address] [place] [address] PCP - General Internal Medicine 04/30/14 Hima Fam FNP [address] [place] [address] Nurse Practitioner Family Medicine 08/01/[address] [place] [address] Rheumatology 06/30/25 documented as of this encounter
--- OUTSIDE RECORDS SUMMARY | 2025-08-20 22:03 | XMS_ITS | Encounter Summary ---
Author Organization [employer] Address [address] [place] [address] 7t [place] [address] Care Team Providers Care Funeral Director Name Role Phone Mychal Fields MD Primary Care Provide r Hima Fam Unavailable Unavailable Yaneth Dotson RN Unavailable [phone] Mckenzie Silverio Unavailable [facility] Unavailable [phone] Reason for Visit * Reason Comments Med Change Request Encounter Details Date Type Department Care Team (Late st Contact Info) Description 10/19/2022 Refill [facility] MEDICINE [address] [place], [place] [phone] Mychal Fields MD [address] [place], [place] [phone] Fibromyalgia Social History Tobacco Use Types Packs/Day [...] documented as of this encounter Care Teams Funeral Director Relationship Specialty Start Date End Date Mychal Fields MD [address] [place] [address] PCP - General Internal Medicine 04/30/14 Hima Fam FNP [address] [place] [address] Nurse Practitioner Family Medicine 08/01/23 Yaneth Dotson, ALAN [address] [place] [address] Registered Nurse Family Medicine 02/24/25 07/09/25 Mckenzie Silverio 02/24/25 07/20/[address] [place] [address] Rheumatology 06/30/25 [facility] 02/13/25 03/29/25 documented as of this encounter
--- OUTSIDE RECORDS SUMMARY | 2025-08-20 22:03 | XMS_ITS | Encounter Summary ---
Author Organization [employer] Address [address] [place] [address] 7t [place] [address] Care Team Providers Care Head Coach Name Role Phone Mychal Fields MD Primary Care Provide r Hima Fam Unavailable Unavailable Yaneth Dotson RN Unavailable [phone] Mckenzie Silverio Unavailable [facility] Unavailable [phone] Reason for Visit * Reason Comments Med Refill Encounter Details Date Type Department Care Team (Late st Contact Info) Description 07/27/2023 Refill [facility] MED[facility]INE [address] [place], [place] [phone] Mychal Fields MD [address] [place], [place] [phone] Social History Tobacco Use Types Packs/Day Years [...] documented as of this encounter Care Teams Head Coach Relationship Specialty Start Date End Date Mychal Fields MD [address] [place] [address] PCP - General Internal Medicine 04/30/14 Hima Fam FNP [address] [place] [address] Nurse Practitioner Family Medicine 08/01/23 Yaneth Dotson RN [address] [place] [address] Registered Nurse Family Medicine 02/24/25 07/09/25 Mckenzie Silverio 02/24/25 07/20/[address] [place] [address] Rheumatology 06/30/25 [facility] 02/13/25 03/29/25 documented as of this encounter
--- OUTSIDE RECORDS SUMMARY | 2025-08-20 22:03 | XMS_ITS | Encounter Summary ---
Author Organization [employer] Address [address] [facility] 7t [place] [address] Care Team Providers Care Print Shop Chief Clerk Name Role Phone Mychal Fields MD Primary Care Provide r Hima Fam Unavailable Unavailable Yaneth Dotson RN Unavailable [phone] Mckenzie Silverio Unavailable [facility] Unavailable [phone] Encounter Details Date Type Department Care Team (Late st Contact Info) Description 06/11/2023 Orders Only [facility] CHC MED & PEDS [address] [place] [address] Veda Isabel LPN Social History Tobacco Use [...] documented as of this encounter Care Teams Print Shop Chief Clerk Relationship Specialty Start Date End Date Mychal Fields MD [address] [place] [address] PCP - General Internal Medicine 04/30/14 Hima Fam FNP [address] [place] [address] Nurse Practitioner Family Medicine 08/01/23 Yaneth Dotson, ALAN [address] [place] [address] Registered Nurse Family Medicine 02/24/25 07/09/25 Mckenzie Silverio 02/24/25 07/20/[address] [place] [address] Rheumatology 06/30/25 [facility] 02/13/25 03/29/25 documented as of this encounter
--- OUTSIDE RECORDS SUMMARY | 2025-08-20 22:03 | XMS_ITS | Encounter Summary ---
Author Organization [employer] Address [address] [place] [address] 7t [place] [address] Care Team Providers Care General Adjuster Name Role Phone Mychal Fields MD Primary Care Provide r Hima Fam Unavailable Unavailable Yaneth Dotson RN Unavailable [phone] Mckenzie Silverio Unavailable [facility] Unavailable [phone] Reason for Visit * Reason Comments Med Refill Encounter Details Date Type Department Care Team (Late st Contact Info) Description 10/06/2024 Refill [facility] CHC MED & PEDS [address] [place], [place] [phone] Mychal Fields MD [address] [place], [place] [phone] Anxiety and depression Social History Tobacco Use [...] documented as of this encounter Care Teams General Adjuster Relationship Specialty Start Date End Date Mychal Fields MD [address] [place] [address] PCP - General Internal Medicine 04/30/14 Hima Fam FNP [address] [place], [place] Nurse Practitioner Family Medicine 08/01/23 Yaneth Dotson, ALAN [address] [place] [address] Registered Nurse Family Medicine 02/24/25 07/09/25 Mckenzie Silverio 02/24/25 07/20/25 Rheumatology, [address] [place] [address] Rheumatology 06/30/25 [facility] 02/13/25 03/29/25 documented as of this encounter
--- OUTSIDE RECORDS SUMMARY | 2025-08-20 22:03 | XMS_ITS | Encounter Summary ---
Author Organization [employer] Address [address] [place] [address] 7t [place] [address] Care Team Providers Care Head Waitress Name Role Phone Mychal Fields MD Primary Care Provide r Hima Fam Unavailable Unavailable Yaneth Dotson RN Unavailable Mckenzie Silverio Unavailable [facility] Unavailable [phone] Reason for Visit * Reason Onset Date Comments Appointment Request 12/04/2022 Encounter Details Date Type Department Care Team (Late st Contact Info) Description 12/04/2022 Telephone [facility] MEDICINE [address] [place], [place] [phone] Mychal Fields MD [address] [place], [place] [phone] Appointment Request Social History Tobacco Use Types [...] ff/u Bp ) Please contact pt at [phone] * Telephone Encounter - Wesley Collins - 12/04/2022 2:02 PM EDT Tc from pt requesting to r/s appt on 10/19/22 ( ff/u Bp ) Please contact pt at [phone] documented in this encounter Plan of Treatment Not on file documented as of this encounter Visit Diagnoses Not on filedocumented in this encounter Additional Health Concerns Assessment Noted Time PHQ-9 Depression Total Score: 7 10/09/19 4:00 PM EST documented as of this encounter Care Teams Head Waitress Relationship Specialty Start Date End Date Mychal Fields MD [address] [place] [address] PCP - General Internal Medicine 04/30/14 Hima Fam FNP [address] [place] [address] Nurse Practitioner Family Medicine 08/01/23 Yaneth Dotson, ALAN [address] [place] [address] Registered Nurse Family Medicine 02/24/25 07/09/25 Mckenzie Silverio 02/24/25 07/20/[address] [place] [address] Rheumatology 06/30/25 [facility] 02/13/25 03/29/25 documented as of this encounter
--- OUTSIDE RECORDS SUMMARY | 2025-08-20 22:03 | XMS_ITS | Encounter Summary ---
Author Organization [employer] Address [address] [place] [address] 7t [place] [address] Care Team Providers Care Field Machinist Name Role Phone Mychal Fields MD Primary Care Provide r Hima Fam Unavailable Unavailable Yaneth Dotson RN Unavailable [phone] Mckenzie Silverio Unavailable [facility] Unavailable [phone] Reason for Visit * Reason Onset Date Comments PRE OP 11/10/2024 Encounter Details Date Type Department Care Team (Late st Contact Info) Description 11/10/2024 Telephone [facility] MEDICINE [address] [place], [place] [phone] Mychal Fields MD 230 [place], [place] [phone] PRE OP Social History Tobacco Use Types [...] needed: No EKG: No Surgeon's name: Dino [place] Facility name: [facility] Surgeon's office number: [phone] Surgeon's office fax number: [phone] Contact name (person you spoke with): Karon [...] Assessment Noted Time PHQ-9 Depression Total Score: 09/16/19 10:06 AM EST documented as of this encounter Care Teams Field Machinist Relationship Specialty Start Date End Date Mychal Fields MD [address] [place] [address] PCP - General Internal Medicine 04/30/14 Hima Fam FNP [address] [place] [address] Nurse Practitioner Family Medicine 08/01/23 Yaneth Dotson, ALAN [address] [place] [address] Registered Nurse Family Medicine 02/24/25 07/09/25 Mckenzie Silverio 02/24/25 07/20/[address] [place] [address] Rheumatology 06/30/25 [facility] 02/13/25 03/29/25 documented as of this encounter
--- OUTSIDE RECORDS SUMMARY | 2025-08-20 22:03 | XMS_ITS | Encounter Summary ---
Author Organization [employer] Address [address] [place] [address] 7t [place] [address] Care Team Providers Care Home Organizer Name Role Phone Mychal Fields MD Primary Care Provide r Hima Fam Unavailable Unavailable Yaneth Dotson RN Unavailable Mckenzie Silverio Unavailable [facility] Unavailable Reason for Visit * Reason Comments Med Refill Encounter Details Date Type Department Care Team (Late st Contact Info) Description 10/05/2022 Refill [facility] MEDICINE [address] [place] [address] Hima Fam FNP Anxiety state Social History [...] unspecified documented in this encounter Care Teams Home Organizer Relationship Specialty Start Date End Date Mychal Fields MD [address] [place] [address] PCP - General Internal Medicine 04/30/14 Hima Fam FNP [address] [place] [address] Nurse Practitioner Family Medicine 08/01/23 Yaneth Dotson, ALAN [address] [place] [address] Registered Nurse Family Medicine 02/24/25 07/09/25 Mckenzie Silverio 02/24/25 07/20/[address] [place] [address] Rheumatology 06/30/25 [facility] 02/13/25 03/29/25 documented as of this encounter
--- OUTSIDE RECORDS SUMMARY | 2025-08-20 22:03 | XMS_ITS | Encounter Summary ---
Author Organization [employer] Address [address] [facility] 7t [place] [address] Care Team Providers Care Commodity Specialist Name Role Phone Mychal Fields MD Primary Care Provide r Hima Fam Unavailable Unavailable [facility] [place] Unavailable Encounter Details Date Type Department Care Team (Late st Contact Info) Description 08/20/2025 Orders Only GENERIC EXTERNAL DATA DEPARTMENT Provider, [...] Procedure Name Priority Date/Time Associated Diagnosis Comments PROTEIN CREATININE RATIO, URINE Routine 08/20/2025 3:43 PM EST CBC WITH AUTO DIFFERENTIAL Routine 08/20/2025 3:43 PM EST URINALYSIS, COMPLETE (INCLUDES MACRO AND MICRO) Routine 08/20/2025 3:43 PM EST SED RATE BY MODIFIED WESTERGREN Routine 08/20/2025 3:43 PM EST C-REACTIVE PROTEIN Routine 08/20/2025 3: 43 PM EST COMPREHENSIVE METABOLIC PANEL Routine 08/20/2025 3:43 PM EST documented in this encounter Results * Urinalysis Complete (08/20/2025 3:43 PM EST) Color Urine Yellow [facility] Appearance Urine Turbid [facility] PH 6.0 5.0 - 9.0 [facility] Glucose Urine UA Negative Negative mg/dL [facility] Urine Blood Negative Negative [facility] Specific [place] - Urine 1.020 1.005 - 1.025 [facility] Urine Protein Trace Neg-Trace mg/dL [facility] Urine Ketones Trace Negative mg/dL [facility] Nitrite Urine Negative Negative [facility] Leukocyte Esterase Urine Negative Negative [facility] RBC Urine 0-2 0 - 2 /HPF [facility] Urine WBC 0-5 0 - 5 /HPF [facility] Urine Squamous Epithelial Cell 0-2 0 - 2 /HPF [facility] CALCIUM OXALATE CRYSTAL, UR Present [facility] Urine Bacteria None Seen None Seen [facility] Hyaline Casts, Urine 3-5 0 - 2 /LPF [facility] 08/20/2025 3:43 PM EST 08/20/2025 5:48 PM EST Generic External Data Provider LAB URINE ORDERAB LES Final Result Performing Organization Address [facility] Co de Phone Number [facility] [address] [place] [phone] * (ABNORMAL) C-reactive Protein (08/20/2025 3:43 PM EST) Pathologist [facility] C Reactive Protein 1.05(H) < or = 0.50 mg/dL [facility] 08/20/2025 3:43 PM EST 08/20/2025 5:52 PM EST Generic External Data Provider LAB BLOOD ORDERAB LES Final Result Performing Organization Address [facility] Co de Phone Number [facility] [address] [place] [phone] * Comprehensive Metabolic Panel (08/20/2025 3:43 PM EST) Pathologist [facility] Sodium 142 135 - 145 mmol/L [facility] Potassium 3.7 3.3 - 5.1 mmol/L [facility] Chloride 108 96 - 108 mmol/L [facility] Carbon Dioxide 26 22 - 29 mmol/L [facility] Anion Gap 12 12 - 20 [facility] Urea Nitrogen (BUN) 13 9 - 16 mg/dL [facility] Creatinine, Serum 0.95 0.5 - 1.4 mg/dL [facility] Estimated Glomerular Filt Rate >60 [facility] Comment:Chronic Kidney Disea se: Estimated GFR < 60 mL/min/[id number] Kidney Disease: Estimated GFR < 15 mL/min/1.73m2 Glucose 91 60 - 115 mg/dL [facility] Calcium 9.2 8.4 - 10.2 mg/dL [facility] Bilirubin, Total 0.2 0.0 - 1.0 mg/dL [facility] Aspartate Amino Transferase 18 5 - 31 U/L [facility] Alanine Aminotransferase 13 0 - 31 U/L [facility] Total Protein 7.9 6.5 - 8.0 g/dL [facility] Albumin Level 4.3 3.5 - 5.0 g/dL [facility] Alkaline Phosphatase 110 39 - 117 U/L [facility] 08/20/2025 3:43 PM EST 08/20/2025 5:52 PM EST Generic External Data Provider LAB BLOOD ORDERAB LES Final Result [facility] [address] [place] [phone] * (ABNORMAL) Protein Creatinine Ratio, Urine (08/20/2025 3:43 PM EST) Creatinine, Urine 402.22 mg/dL [facility] Protein, Total, Random Urine 18(H) <12 mg/dL [facility] Protein/Creati nine Ratio, Ur 0.04 <0.2 [facility] Comment:The spot urine prote in:creatinine ratio may increase to 0.3during normal . 08/20/2025 3:43 PM EST 08/20/2025 5:48 PM EST us Generic External Data Provider LAB URINE ORDERAB LES Final Result [facility] [address] [place], [place] [phone] * (ABNORMAL) CBC auto differential (08/20/2025 3:43 PM EST) White Blood Count 8.1 4.8 - 10.8 X10*3/uL [facility] Red Blood Count 4.52 4.20 - 5.50 X10*6/uL [facility] Hemoglobin 13.0 12.0 - 16.0 g/dl [facility] Hematocrit 40.0 37.0 - 47.0 % [facility] Mean Corpuscular Volume 88.5 80.0 - 98.0 fL [facility] Mean Corpuscular Hemoglobin 28.8 27.0 - 33.0 pg [facility] Mean Corpuscular HGB Conc 32.5 31.0 - 35.0 g/dl [facility] Red Cell Distribution Width 14.3 11.0 - 16.0 % [facility] Platelet Count 298 160 - 400 X10*3/uL [facility] Mean Platelet Volume 10.2 9.4 - 12.3 fL [facility] Neutrophils Percent Auto 49.5 45 - 73 % [facility] Imm Gran Pct Auto 0.2 0.0 - 0.4 % [facility] Lymphocytes Percent Auto 42.2(H) 20 - 40 % [facility] Monocytes Percent Auto 5.2 2 - 11 % [facility] Eosinophils Percent Auto 2.0 0 - 4 % [facility] Basophils Percent Auto 0.9 0 - 2 % [facility] NRBC Pct Auto 0.0 0.0 - 0.2 /100WBC [facility] Neutrophils Absolute Auto 4.0 2.0 - 8.3 x10*3/uL [facility] Imm Gran Abs Auto 0.02 0.00 - 0.03 X10*3/uL [facility] Lymphocytes Absolute Auto 3.4 1.2 - 4.9 X10*3/uL [facility] Monocytes Absolute Auto 0.4 0.1 - 1.2 X10*3/uL [facility] Eosinophils Absolute Auto 0.2 0.0 - 0.4 X10*3/uL [facility] Basophils Absolute Auto 0.1 0.0 - 0.2 X10*3/uL [facility] NRBC Abs Auto 0.000 0.0 - 0.012 X10*3/uL [facility] 08/20/2025 3:43 PM EST 08/20/2025 5:52 PM EST Generic External Data Provider LAB BLOOD ORDERAB LES Final Result Performing Organization Address [facility]/ZIP Co de Phone Number [facility] [address] [place] [phone] * Sed Rate by Modified Bryanna (08/20/2025 3:43 PM EST) Erythrocyte Sedimentation Rate 25 1 - 30 MM/HR [facility] Comment:Patients with polycy themia and many hemoglobin abnormalitiesmay have depressed sed rates whereas patients with anemiamay have elevated sed rates. 08/20/2025 3:43 PM EST 08/20/2025 5:52 PM EST Generic External Data Provider LAB BLOOD ORDERAB LES Final Result Performing Organization Address [facility] Co de Phone Number [facility] [address] [place] [phone] documented in this encounter Visit Diagnoses Not on filedocumented in this encounter Additional Health Concerns Assessment Noted Time PHQ-9 Depression Total Score: 15 025 12:51 PM EDT documented as of this encounter Care Teams Commodity Specialist Relationship Specialty Start Date End Date Mychal Fields MD [address] [place] [address] PCP - General Internal Medicine 04/30/14 Hima Fam FNP [address] [place] [address] Nurse Practitioner Family Medicine 08/01/23 Rheumatology, [address] [place] [address] Rheumatology 06/30/25 documented as of this encounter
--- OUTSIDE RECORDS SUMMARY | 2025-08-20 22:03 | XMS_ITS | Encounter Summary ---
Author Organization [employer] Address [address] [place] [address] [place] [address] Care Team Providers Care Composition Stone Applicator Name Role Phone Mychal Fields MD Primary Care Provide r Hima Fam Unavailable Unavailable Yaneth Dotson RN Unavailable [phone] Mckenzie Silverio Unavailable [facility] Unavailable [phone] Encounter Details Date Type Department Care Team ([facility] st Contact Info) Description 12/05/2022 Orders Only [facility] CHC MED & PEDS [address] [place], [place] [phone] Veda Isabel LPN Social History Tobacco Use [...] as of this encounter Care Teams Composition Stone Applicator Relationship Specialty Start Date End Date Mychal Fields MD [address] [place] [address] [phone] PCP - General Internal Medicine 04/30/14 Hima Fam FNP [address] [place] [address] Nurse Practitioner Family Medicine 08/01/23 Yaneth Dotson, ALAN [address] [place] [address] Registered Nurse Family Medicine 02/24/25 07/09/25 Mckenzie Silverio 02/24/25 07/20/[address] [place], [place] [phone] Rheumatology 06/30/25 [facility] 02/13/25 03/29/25 documented as of this encounter
--- OUTSIDE RECORDS SUMMARY | 2025-08-20 22:03 | XMS_ITS | Clinical Summary ---
Author Organization [facility] [address] [facility] Address [address] [place] [address] Phone Care Team Providers Care Dry Pan Charger Name Role Phone Mychal Long MD Primary [...] She is requesting the clinic in the [facility]. Patient may follow-up with us here in thoracic surgery on an as-needed basis going forward. 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 Patient may follow-up with us here in thoracic surgery on an as-needed basis going forward. 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); Chest pain on breathing 06/01/2025 11:00 AM EDT Office Visit Thoracic Surgery - [address] [phone] Linda Ureña NP Thymic cyst ([facility]/H[facility] V24) (Primary Dx); Pleuritic chest pain 05/29/2025 8:26 PM EDT - 05/29/2025 10:17 PM EDT Emergency [facility] Emergency [address] [place] [phone] Macrina Valiente MD Positive D dimer (Primary Dx); Pleural effusion, bilateral; Ground glass opacity present on imaging of lung Discharge Disposition: Home or Self Care 05/29/2025 3:00 PM EDT Office Visit Pulmonology [address] [phone] Rosy Rhodes MD Bilateral pleural effusion (Primary Dx); Chest pain on breathing 05/29/2025 Telephone Pulmonology [address] [phone] Rosy Rhodes MD from Last 3 Months Surgical History Surgery [...] Asthma Anxiety Arthritis Joint pain 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 Family History Medical History Relation [...] on file Sexual Orientation Not on file Last Filed Vital Signs Vital Sign Reading [...] Info) Description 08/31/2025 3:30 PM EST Appointment [facility] CT Scan [address] [place] [address] Health Maintenance Due Date Last Done Comments Breast Cancer Screening 1970 Colorectal Cancer Screening: Colonoscopy 1970 Drug Screen 1970 Non-Opioid Controlled Substance Agreement 1970 Hepatitis B Vaccines (1 of 3 [...] Bilateral pleural effusion Chest pain on breathing from Last 3 Months Results * CT [...] Burnette MD on 05/29/2025 21:25:46 Rachael [facility] PROCEDURES Final Result * (ABNORMAL) CBC auto differential (05/29/2025 3:41 PM EDT) WBC 8.9 4.8 - 10.8 K/mcL LAB HEMETOLOGY METHOD 05/29/2025 4:16 PM EDT [facility] RBC 4.10 3.80 - 4.80 M/mcL LAB HEMETOLOGY METHOD 05/29/2025 4:16 PM EDT [facility] Hemoglobin 11.1(L) 11.5 - 16.0 g/dL LAB HEMETOLOGY METHOD 05/29/2025 4:16 PM [facility] Hematocrit 34.2(L) 35.0 - 47.0 % LAB HEMETOLOGY METHOD [facility]2025 [facility] MCV 83.6 79.0 - 98.0 FL LAB HEMETOLOGY METHOD 05/29/2025 4:16 PM [facility] MCH 27.1 27.0 - 32.0 pcg LAB HEMETOLOGY METHOD 05/29/2025 4:16 PM EDT [facility] MCHC 32.5 32.0 - 37.0 g/dL LAB HEMETOLOGY METHOD 05/29[facility]2025 4[facility] RDW 14.0 11.0 - 15.0 % LAB HEMETOLOGY METHOD 05/29/2025 4:16 PM EDT [facility] Platelets 390 130 - 400 K/mcL LAB HEMETOLOGY METHOD 05/29/2025 4:16 PM [facility] MPV 9.1 7.0 - 11.0 FL LAB HEMETOLOGY METHOD 05/29/2025 4:[facility] NRBC 0.0 <1.0 % LAB HEMETOLOGY METHOD 05/29/2025 4[facility] NRBC Absolute 0.00 <0.10 K/mcL LAB HEMETOLOGY METHOD 05/29/2025 4:16 PM [facility] Neutrophils Relative 58.6 % LAB HEMETOLOGY METHOD 05/29/2025 4:16 PM [facility] Lymphocytes Relative 30.4 % LAB HEMETOLOGY METHOD 05/29/2025 4:16 PM [facility] Monocytes Relative 4.4 % LAB HEMETOLOGY METHOD 05/29/2025 4:16 PM [facility] Eosinophils Relative 5.5 % LAB HEMETOLOGY METHOD 05/29/2025 4:[facility] Basophils Relative 0.8 % LAB HEMETOLOGY METHOD 05/29/2025 4:16 PM [facility] Immature Granulocytes Relative 0.3 % LAB HEMETOLOGY METHOD 05/29/2025 4:16 PM T [facility] Neutrophils Absolute 5.20 1.50 - 7.00 K/mcL LAB HEMETOLOGY METHOD 05/29/2025 4:16 PM EDT [facility] Lymphocytes Absolute 2.70 1.00 - 5.00 K/mcL LAB HEMETOLOGY METHOD 05/29/2025 4:16 PM EDT [facility] Monocytes Absolute 0.39 0.20 - 1.00 K/mcL LAB HEMETOLOGY METHOD 05/29/2025 4:16 PM EDT [facility] Eosinophils Absolute 0.49 0.00 - 0.50 K/[facility] LAB HEMETOLOGY METHOD 05/29/2025 4:16 PM EDT [facility] Basophils Absolute 0.07 0.00 - 0.20 K/[facility] LAB HEMETOLOGY METHOD 05/29/2025 4:16 PM EDT [facility] Immature Granulocytes Absolute 0.03 0.00 - 0.03 K/[facility] LAB HEMETOLOGY METHOD 05/29/2025 4:16 PM EDT [facility] Blood Venous blood specimen / Unknown Venipuncture / Unknown 05/29/2025 3:41 PM EDT 05/29/2025 4:05 PM EDT us Rosy Rhodes MD LAB BLOOD ORDERABLES Final Result [facility] [address] [place] [address], * (ABNORMAL) D-Dimer (05/29/2025 3:41 PM EDT) D-Dimer, Quant (D-DU) 3,062(H) <=230 ng/mL DDU LAB COAGULATION METHOD 05/29/2025 4:20 PM EDT [facility] Blood Venous blood specimen / Unknown Venipuncture / Unknown 05/29/2025 3:41 PM EDT 05/29/2025 4:05 PM EDT Narrative [facility] - 05/29/2025 4:20 PM EDT D-Dimer <230 ng/mL (D-Dimer units) is the threshold for exclusion of DVT/PE. D-Dimer may be elevated in: Critically ill, severely infected, trauma patients, DIC, acute CVA, acute NH, unstable angina, AF, old age, , and smoking. D-Dimer may be decreased with: Initiation of heparin therapy and oral anticoagulants. us Rosy Rhodes MD LAB BLOOD ORDERABLES Final Result [facility] [address] [place] [address], [place] [phone] * (ABNORMAL) Basic metabolic panel (05/29/2025 3:41 PM EDT) Sodium 138 133 - 145 mmol/L LAB CHEMISTRY METHOD 05/29/2025 4:31 PM [facility] Potassium 4.0 3.5 - 5.5 mmol/L LAB CHEMISTRY METHOD 05/29/2025 4:31 PM [facility] Chloride 106 96 - 110 mmol/L LAB CHEMISTRY METHOD 05/29/2025 4:31 PM [facility] CO2 28 21 - 32 mmol/L LAB CHEMISTRY METHOD 05/29/2025 4:31 PM [facility] Anion Gap 4 3 - 11 LAB CHEMISTRY METHOD 05/29/2025 4:31 PM [facility] Glucose 108(H) 70 - 100 mg/dL LAB CHEMISTRY METHOD 05/29/2025 4:31 PM [facility] BUN 9 5 - 25 mg/dL LAB CHEMISTRY METHOD 05/29/2025 4:31 PM [facility] Creatinine 0.86 0.50 - 1.10 mg/dL LAB CHEMISTRY METHOD 05/29/2025 4:31 PM [facility] eGFR 80 >=60 mL/min/1. 73m2 LAB CHEMISTRY METHOD 05/29/2025 4:31 PM EDT [facility] Comment:Calculation based on the Chronic Kidney Disease Epidemiology Collaboration (CKD-EPI) equation refit without adjustment for race. BUN/Creatinine Ratio 10.5 LAB CHEMISTRY METHOD 05/29/2025 4:31 PM EDT [facility] Calcium 9.1 8.5 - 10.5 mg/dL LAB CHEMISTRY METHOD 05/29/2025 4:31 PM EDT [facility] Blood Venous blood specimen / Unknown Venipuncture / Unknown 05/29/2025 3:41 PM EDT 05/29/2025 4:05 PM EDT us Rosy Rhodes MD LAB BLOOD ORDERABLES Final Result [facility] [address] [place] [address], from Last 3 Months Insurance MEDICAID - [...] currently active code status orders. Care Teams Dry Pan Charger Relationship Specialty Start Date End Date Mychal Long MD [address] [place] [address] [place] [address] PCP - General 12/26/11
--- OUTSIDE RECORDS SUMMARY | 2025-08-20 22:04 | XMS_ITS | Encounter Summary ---
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 Name Role Phone Mychal Fields MD Primary Care Provide r Hima Fam Unavailable Unavailable Yaneth Dotson RN Unavailable Mckenzie Silverio Unavailable [facility] Unavailable [phone] Encounter Details Date Type Department Care Team (Late st Contact Info) Description 04/24/2023 Orders Only [facility] [address] [place] [address] Zena Harley MD [address] [place] [address] Acquired clavicle deformity (Primary Dx) Social History [...] PM EDT Narrative 05/14/2023 4:45 PM EDT [address] [address] XRay Report Signed Patient: Elaine Rodas MR#: [id number] : 1970 Acct:[id number] Age/Sex: 52 / F ADM Date: 05/14/23 Loc: HO.ED Attending Dr: Ordering Physician: Vee Castano NP Date of Service: 05/14/23 Procedure(s): XR chest 2V Accession Number(s): [id number] cc: Mychal Long MD; Vee Castano NP [...] in OV> 05/14/23 1642 DD/ 1624 TD/TT: P[employer] Retirement Plan Specialist: DORITA Procedure Note Donotuseinterpreter, Image - 05/14/[address] [address] XRay Report Signed Patient: Elaine RodasMR#: [id number] : 1970Acct:[id number] Age/Sex: 52 / FADM Date: 05/14/23 Loc: HO.ED Attending Dr: Ordering Physician: Vee Castano NP Date of Service: 05/14/23 Procedure(s): XR chest 2V Accession Number(s): [id number] cc: Mychal Long MD; Vee Castano NP [...] in OV> 05/14/23 1642 DD/ 1624 TD/TT: Pensions Retirement Plan Specialist: DORITA [facility] External Provider IMG XR PROCEDURES Edited Result - Final * XR Foot 3+ Views Right (05/10/2023 11:44 AM EDT) Anatomical Region Laterality Modality Lower Extremities, Foot Right Radiogra phic Imaging 05/10/2023 11:4 4 AM EDT Narrative 05/10/2023 12:08 PM EDT [address] [address] XRay Report Signed Patient: Elaine Rodas MR#: [id number] : 1970 Acct:[id number] Age/Sex: 52 / F ADM Date: 05/10/23 Loc: HO.CX Attending Dr: Mychal Long MD Ordering Physician: Mychal Long MD Date of Service: 05/10/23 Procedure(s): XR foot RT min 3V Accession Number(s): [id number] cc: Mychal Long MD EXAMINATION: XR FOOT, [...] in OV> 05/10/23 1205 DD/ 1144 TD/TT: Pensions Retirement Plan Specialist: YULISSA Procedure Note Donotuseinterpreter, Image - 05/10/[address] [address] XRay Report Signed Patient: Elaine RodasMR#: [id number] : 1970Acct:[id number] Age/Sex: 52 / FADM Date: 05/10/23 Loc: HO.HHCX Attending Dr: Mychal Long MD Ordering Physician: Mychal Long MD Date of Service: 05/10/23 Procedure(s): XR foot RT min 3V Accession Number(s): [id number] cc: Mychal Long MD EXAMINATION: XR FOOT, [...] in OV> 05/10/23 1205 DD/ 1144 TD/TT: Pensions Retirement Plan Specialist: YULISSA us Mychal Morris MD IMG XR PROCEDURES Fin al Result * FL Esophagus Barium Swallow w/Air (05/08/2023 10:19 AM EDT) Anatomical Region Laterality Modality Head, Neck Radiographic Hilda ging 05/08/2023 10:1 9 AM EDT Narrative 05/08/2023 4:35 PM EDT [place] [address] Fluoroscopy Report Signed Patient: Elaine Rodas MR#: [id number] : 1970 Acct:[id number] Age/Sex: 52 / F ADM Date: 05/08/23 Loc: [facility] Attending Dr: Mychal Long MD Ordering Physician: Mychal Long MD Date of Service: 05/08/23 Procedure(s): FL barium swallow with air Accession Number(s): [id number] cc: Mychal Long MD EXAMINATION: XR FLUOROSCOPY [...] in OV> 05/08/23 1632 DD/ 1019 TD/TT: Pensions Retirement Plan Specialist: Procedure Note Donotuseinterpreter, Image - 05/08/[address] [address] Fluoroscopy Report Signed Patient: Elaine RodasMR#: [id number] : 1970Acct:[id number] Age/Sex: 52 / FADM Date: 05/08/23 Loc: HOKR[facility] Attending Dr: Mychal Long MD Ordering Physician: Mychal Long MD Date of Service: 05/08/23 Procedure(s): FL barium swallow with air Accession Number(s): [id number] cc: Mychal Long MD EXAMINATION: XR FLUOROSCOPY [...] in OV> 05/08/23 1632 DD/ 1019 TD/TT: Pensions Retirement Plan Specialist: Mychal Morris MD IMG FLUOROSCOPY PROCE DURES Final Result documented in this encounter Visit Diagnoses Diagnosis 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 documented in this encounter Additional Health Concerns Assessment Noted Time PHQ-9 Depression Total Score: 8 02/09/20 23 11:04 AM EDT documented as of this encounter Care Teams Agricultural Crop Farm Manager Relationship Specialty Start Date End Date Mychal Fields MD [address] [place] [address] PCP - General Internal Medicine 04/30/14 Hima Fam FNP [address] [place] [address] Nurse Practitioner Family Medicine 08/01/23 Yaneth Dotson, ALAN [address] [place] [address] Registered Nurse Family Medicine 02/24/25 07/09/25 Mckenzie Silverio 02/24/25 07/20/[address] [place] [address] Rheumatology 06/30/25 [employer] 02/13/25 03/29/25 documented as of this encounter
--- OUTSIDE RECORDS SUMMARY | 2025-08-20 22:04 | XMS_ITS | Clinical Summary ---
Author Organization [employer] Address [address] [place] [address] Care Team Providers Care Medical Reimbursement Specialist Name Role Phone Mychal Fields MD Primary Care Provide r Hima Fam Unavailable Unavailable [facility] Unavailable [phone] Allergies Active Allergy Reactions Criticality Noted Date [...] every 30 (thirty) days. 024 Active rizatriptan WIRE BRUSH OPERATOR (Maxalt-WIRE BRUSH OPERATOR) 5 MG disintegrating tablet 024 Active varenicline [...] HOURS DIRECTED 30 patch 3 025 Active ketoconazole (NIZOral) 2 % shampooIndication s:Androgenic alopecia,Telogen effluvium Apply topically 2 (two) times a week. 120 mL 1 025 Active fluticasone (Flonase) 50 MCG/ACT nasal spray SHAKE BEFORE FIRST USE, PRIME AFTER USE, CLEAN TIP, INSTILL 1 SPRAY INTO EACH NOSTRIL TWICE A DAY 48 mL 025 Active amLODIPine (Norvasc) 10 MG tabletIndications :Essential hypertension TAKE 1 TABLET BY MOUTH EVERY DAY 90 tablet 1 025 Active cholecalciferol (Vitamin D-3) 25 MCG (1000 UT) capsuleIndication s:Low vitamin D level Take 1 capsule (25 mcg) by mouth Once per day. 30 capsule 3 025 Active clonazePAM (KlonoPIN) 1 MG tabletIndications [...] A DAY 48 mL 025 2024 Discontinued cholecalciferol (Vitamin D-3) 25 MCG (1000 UT) capsuleIndication s:Low vitamin D level Take 1 capsule (25 mcg) by mouth Once per day. 30 capsule 3 025 2024 Discontinued(R eorder (will not trigger notification to Pharmacy)) amLODIPine (Norvasc) 10 MG tabletIndications :Essential hypertension TAKE 1 TABLET BY MOUTH EVERY DAY 90 tablet 025 2024 Discontinued(R eorder (will not trigger notification to Pharmacy)) clonazePAM (KlonoPIN) 1 MG tabletIndications :Anxiety and depression TAKE 1 TABLET BY MOUTH 3 TIMES DAILY. 90 tablet 025 2024 Discontinued(R eorder (will not trigger notification to Pharmacy)) zolpidem (Ambien) 10 MG tabletIndications :Anxiety and depression TAKE 1 TABLET BY MOUTH AT BEDTIME NEEDED FOR SLEEP 30 tablet 025 2024 Discontinued(R eorder (will not trigger notification to Pharmacy)) Active Problems Problem Noted Date Diagnosed Date Class 2 severe obesity due t o excess calories with serious comorbidity in adult 08/18/2025 Assessment & Plan (08/18/2025 2:07 PM EST): Patient has been counseled and educated about diet and exercise. Personal goal of weight loss discussedPatient has comorbidity of: HTN Other specified anemias 06/30/2025 Assessment & Plan (06/30/2025 9:12 AM EDT): Pt with mild anemia Lab Results Component Value Date WBC 8.9 03/17/2025 HGB 11.9 (L) 03/17/2025 HCT 34.7 (L) 03/17/2025 MCV 85.0 03/17/2025 PLT 276 03/17/2025 Referred to Hematology by Pulmonology due to marked eosinophilia. Medication Assistant ordered a work up to rule out Vasculitis. C-ANCA was negative but Positive Proteinase 3 antibody. Significance? Pt has a Engineering Specialist : Brigid West MD at [facility]. I will ask our team RNS to [...] evaluated at [facility] 05/29/2025 As part of her ER evaluation [...] was evaluated by Dr. Wynn at our [facility] who recommended to check D dimer [...] We are trying to get her to [facility] before the lab and xray close but if she is unable, advise TIFFANY diaz. - Seek medical attention for worsening symptoms. [...] reports she has completed thyroid ultrasound at [facility], notes not available at this time [...] EDT): Pelvis exam indicative of this Plan: MANAGER EXPORT referral Analy vaginitis 06/26/2023 Assessment & Plan [...] significant eosinophils possibly related to hypereosinophilic conditions. Medication Assistant referred to hematology for further evaluation. They [...] no good results, cannot tolerate NSAIDS [facility] is not accepting new patients at the moment. Will try to refer to a different Neurologist perhaps at [facility] Assessment & Plan (01/17/2024 1:06 [...] also be referring to Neurology at [facility] Assessment & Plan (04/03/2023 1:22 PM [...] who retired Pt has a therapist at [facility] I recommended she speak with therapist about referral to agency psychiatrist, unfortunatelly they do not have any availability In the meantime I will manage medications if necessary. Plan: Continue: clonazePAM (KlonoPIN) 1 MG tablet hydrOXYzine HCl (Atarax) 25 MG tablet zolpidem (Ambien) 10 MG tablet Will refer to our employment programs analyst Assessment & Plan (05/15/2024 1:34 PM EDT): Patient has tried many different antidepressants and mood stabilizers but she was intolerant of everything. She is doing reasonably well. Her panic attacks respond to Hydroxyzine 25 mg prn. She takes Clonazepam 1 mg TID prn. And Ambien 10 mg at bedtime. This was prescribed by Hima Fam who recently retired Pt has a therapist at [facility] I recommended she speak with therapist [...] necessary. For any issues or concerns, contact [facility]. All her questions were answered and I [...] plan. Essential hypertension 06/22/2015 Assessment & Plan (08/18/2025 2:05 PM EST): Patient here for a follow up BP [...] Within normal limits Plan: Continue current regimen Assessment & Plan (06/30/2025 9:38 AM EDT): [...] used to be under the care of transition of care specialist who had been prescribing Baclofen Assessment [...] used to be under the care of transition of care specialist who had been prescribing tramadol 100mg [...] without neural impingement. Pt was seen at [facility] 04/2023 and has a follow up [...] without neural impingement. Pt was seen at [facility] recently has a follow up recommended [...] neural impingement. Pt will be referred to [facility] Smoker 02/21/2012 Assessment & Plan (04/03/2023 [...] Encounters Date Type Department Care Team Description 08/20/2025 Orders Only GENERIC EXTERNAL DATA DEPARTMENT Provider, Generic External Data 08/18/2025 2:15 PM EST Office Visit [facility] [place] [address] Mychal Fields MD Essential hypertension (Primary Dx); Low vitamin D level; Anxiety and depression; Class 2 severe obesity due to excess calories with serious comorbidity and body mass index (BMI) of 36.0 to 36.9 in adult; Dietary counseling; Exercise counseling; Encounter for immunization 08/18/2025 Travel 08/13/2025 Telephone [facility] [place] [address] Mychal Fields MD CHART PREP 08/07/2025 Refill [facility] [place] [address] Mychal Fields MD 07/27/2025 Telephone [facility] [place] [address] Mychal Fields MD Call Back Request 07/24/2025 2:00 PM EST Office Visit [facility] [place] [address] Manjeet Deluca MD Androgenic alopecia (Primary Dx); 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 Travel 07/22/2025 Orders Only [facility] External Provider, [facility] 07/20/2025 Patient Outreach [facility] [place] [address] Mychal Fields MD Care Coordination (SDOH f/u) 07/16/2025 Telephone [facility] [place] [address] Mychal Fields MD Med Refill 07/14/2025 Refill [facility] [place] [facility] [place] [address] Bette Wynn MD Anxiety and depression 07/11/2025 Refill [facility] [address] [place] [address] Mychal Fields MD Anxiety and depression 07/09/2025 Patient Outreach [address] [address] Mychal Fields MD Care Management (C3CM- f/u call lvm) 07/03/2025 Patient Outreach [address] [address] Mychal Fields MD Care Coordination (PT1) 07/02/[address] [address] Mychal Fields MD 06/30/2025 9:15 AM EDT Office Visit [address] [address] Mychal Fields MD Dizzy spells (Primary Dx); Analy vaginitis; Irritable bowel syndrome with both constipation and diarrhea; Restrictive lung disease; Anemia due to other cause, not classified; Essential hypertension; Positive MAURICE (antinuclear antibody); Pneumonia of both lower lobes due to infectious organism 06/30/[address] [address] Christie Contreras RN Interoffice Coordination 06/30/2025 Travel 06/29/2025 Patient Outreach [address] [address] Mychal Fields MD Care Coordination (Triage) 06/26/2025 Patient Outreach [address] [address] Mychal Fields MD Care Coordination (PT1) 06/26/2025 Patient Outreach [address] [address] Mychal Fields MD Care Management (C3CM- f/u call) 06/15/2025 Patient Outreach [address] [address] Mychal Fields MD Care Management (C3CM- f/u call lvm) 06/15/2025 Patient Outreach [facility] [address] [place] [address] Mychal Fields MD Care Coordination (PT1 f/u) 06/11/2025 Refill [facility] [address] [place] [address] Mychal Fields MD Anxiety and depression 06/10/2025 Patient Outreach [facility] [address] [place] [address] Mychal Fields MD Care Coordination (SDOH f/u) 06/09/2025 Refill [facility] [address] [place] [address] Noemy Frye RN Anxiety and depression 06/09/2025 Telephone [facility] [address] [place] [phone] Mychal Fields MD Med Refill 06/09/2025 Patient Outreach [facility] [address] [place] [address] Mychal Fields MD Care Management (C3CM- f/u call lvm) 06/08/2025 Orders Only GENERIC EXTERNAL DATA DEPARTMENT Provider, Generic External Data 06/05/2025 Telephone [facility] [address] [place] [phone] Mychal Fields MD 06/05/2025 Telephone [facility] [address] [place] [address] Mychal Fields MD august06/01/2025 Patient Outreach [facility] [address] [place] [address] Mychal Fields MD 05/28/2025 Patient Outreach [facility] [address] [place] [address] Mychal Fields MD Care Management (C3CM- f/u call) 05/27/2025 Patient Outreach [facility] [address] [place] [phone] Mychal Fields MD Care Coordination (SDOH f/u ) 05/27/2025 Patient Outreach [facility] [address] [place] [address] Mychal Fields MD Care Management (C3- f/u call #4 lvm) from Last 3 Months Immunizations Immunization Administration Dates Next Due Influenza injectable quadriv alent preservative free 05/24/2022,09/08/2021,06/09/2020,10/09 Influenza, IIV3, injectable 06/16/2014, 3 Influenza, Split (incl. jason fied surface antigen) 11/16/2016,09/26/2012 Influenza, seasonal, injecta ble, preservative free 08/18/2025 Pfizer Covid-19 Vaccine 12+ 06/20/2022, 1 Pfizer [...] 18 08/18/2025 1:53 PM EST Oxygen Saturation 98% 06/30/2025 9:24 AM EDT Inhaled Oxygen Concentration - - Weight 96.7 kg (213 lb 3.2 oz) 08/18/2025 1:53 P M EST Height 162.6 cm (5' 4 ) 08/18/2025 1:53 PM EST Body Mass Index 36.6 08/18/2025 1:53 PM EST Plan of Treatment Health Maintenance [...] (4 - season) 2025 06/20/2022, 06/20/2022, 05/17/2021 Lipid Panel 06/17/2025 06/17/2020 Depression Monitoring 10/17/2025 04/16/2025, 025 Alcohol/Substance Use Screening 12/23/2025 12/23/2024 Disability Screening 12/23/2025 12/23/2024 SDOH Screening 03/04/2026 03/04/2025 Tobacco Screening 08/18/2026 08/18/2025 Mammogram 10/29/2026 10/29/2024, 09/10, 12/17/2018 Colonoscopy 08/30/2027 08/30/2022, 08/30/2022 Colorectal Cancer Screening 08/30/2027 Cervical Cancer Screening 08/23/2028 HPV/Cotest 08/23/2028 08/23/2023, 04/06/2021 Pap Smear 08/23/2028 08/23/2023, 04/06/2021 DTaP/Tdap/Td Vaccines (2 - Td or Tdap) 08/01/2032 08/01/2022, 11/16/2016, 11/27/2000, Additional history exists HIV Screening Completed 11/05/2024, 09/22/2024 Hepatitis C Screening Completed 11/05/2024, 025 Influenza Vaccine Completed 08/18/2025, , 09/08/2021, Additional history exists HIB Vaccines Aged Out No longer eligi [...] Procedure Name Priority Date/Time Associated Diagnosis Comments URINALYSIS, COMPLETE (INCLUDES MACRO AND MICRO) Routine 08/20/2025 3:43 PM EST C-REACTIVE PROTEIN Routine 08/20/2025 3: 43 PM EST COMPREHENSIVE METABOLIC PANEL Routine 08/20/2025 3:43 PM EST PROTEIN CREATININE RATIO, URINE Routine 08/20/2025 3:43 PM EST CBC WITH AUTO DIFFERENTIAL Routine 08/20/2025 3:43 PM EST SED RATE BY MODIFIED WESTERGREN Routine 08/20/2025 3:43 PM EST NM GASTRIC EMPTYING SOLID Routine 07/22/2025 8:49 AM EST CBC WITH AUTO DIFFERENTIAL Routine 06/30/2025 10:14 AM EDT Dizzy spells XR CHEST 2 VIEWS Routine 06/30/2025 10:1 1 AM EDT Pneumonia of both lower lobes due to infectious organism HYPERSENSITIVITY PNUEMONITIS PROFILE Routine 06/08/2025 2:31 PM EDT ANCA VASCULITIDES Routine 06/08/2025 2:3 1 PM EDT T-SPOT(R).TB Routine 06/08/2025 2:31 PM EDT BASIC METABOLIC PANEL Routine 05/22/2025 2:00 PM EDT Essential hypertension HEPATITIS C ANTIBODY Routine 11/05/2024 3:21 PM [...] Relevant to Health Maintenance Results * (ABNORMAL) Protein Creatinine Ratio, Urine (08/20/2025 3:43 PM EST) Creatinine, Urine 402.22 mg/dL [facility] Protein, Total, Random Urine 18(H) <12 mg/dL [facility] Protein/Creati nine Ratio, Ur 0.04 <0.2 [facility] Comment:The spot urine prote in:creatinine ratio may increase to 0.3during normal . 08/20/2025 3:43 PM EST 08/20/2025 5:48 PM EST us Generic External Data Provider LAB URINE ORDERAB LES Final Result [facility] [address] [place] [phone] * (ABNORMAL) CBC auto differential (08/20/2025 3:43 PM EST) Only the most recent of2 resultswithin the time period is included. White Blood Count 8.1 4.8 - 10.8 X10*3/uL [facility] Red Blood Count 4.52 4.20 - 5.50 X10*6/uL [facility] Hemoglobin 13.0 12.0 - 16.0 g/dl [facility] Hematocrit 40.0 37.0 - 47.0 % [facility] Mean Corpuscular Volume 88.5 80.0 - 98.0 fL [facility] Mean Corpuscular Hemoglobin 28.8 27.0 - 33.0 pg [facility] Mean Corpuscular HGB Conc 32.5 31.0 - 35.0 g/dl [facility] Red Cell Distribution Width 14.3 11.0 - 16.0 % [facility] Platelet Count 298 160 - 400 X10*3/uL [facility] Mean Platelet Volume 10.2 9.4 - 12.3 fL [facility] Neutrophils Percent Auto 49.5 45 - 73 % [facility] Imm Gran Pct Auto 0.2 0.0 - 0.4 % [facility] Lymphocytes Percent Auto 42.2(H) 20 - 40 % [facility] Monocytes Percent Auto 5.2 2 - 11 % [facility] Eosinophils Percent Auto 2.0 0 - 4 % [facility] Basophils Percent Auto 0.9 0 - 2 % [facility] NRBC Pct Auto 0.0 0.0 - 0.2 /100WBC [facility] Neutrophils Absolute Auto 4.0 2.0 - 8.3 x10*3/uL [facility] Imm Gran Abs Auto 0.02 0.00 - 0.03 X10*3/uL [facility] Lymphocytes Absolute Auto 3.4 1.2 - 4.9 X10*3/uL [facility] Monocytes Absolute Auto 0.4 0.1 - 1.2 X10*3/uL [facility] Eosinophils Absolute Auto 0.2 0.0 - 0.4 X10*3/uL [facility] Basophils Absolute Auto 0.1 0.0 - 0.2 X10*3/uL [facility] NRBC Abs Auto 0.000 0.0 - 0.012 X10*3/uL [facility] 08/20/2025 3:43 PM EST 08/20/2025 5:52 PM EST us Generic External Data Provider LAB BLOOD ORDERAB LES Final Result Performing Organization Address [facility] Co de Phone Number [facility] [address] [place] [address] [phone] Urinalysis Complete (08/20/2025 3:43 PM EST) Color Urine Yellow [facility] Appearance Urine Turbid [facility] PH 6.0 5.0 - 9.0 [facility] Glucose Urine UA Negative Negative mg/dL [facility] Urine Blood Negative Negative [facility] Specific [place] - Urine 1.020 1.005 - 1.025 [facility] Urine Protein Trace Neg-Trace mg/dL [facility] Urine Ketones Trace Negative mg/dL [facility] Nitrite Urine Negative Negative [facility] Leukocyte Esterase Urine Negative Negative [facility] RBC Urine 0-2 0 - 2 /HPF [facility] Urine WBC 0-5 0 - 5 /HPF [facility] Urine Squamous Epithelial Cell 0-2 0 - 2 /HPF [facility] CALCIUM OXALATE CRYSTAL, UR Present [facility] Urine Bacteria None Seen None Seen [facility] Hyaline Casts, Urine 3-5 0 - 2 /LPF [facility] 08/20/2025 3:43 PM EST 08/20/2025 5:48 PM EST Generic External Data Provider LAB URINE ORDERAB LES Final Result Performing Organization Address [facility]/ZIP Co de Phone Number [facility] [address] [place] [address] [phone] * Sed Rate by Modified Bryanna (08/20/2025 3:43 PM EST) Erythrocyte Sedimentation Rate 25 1 - 30 MM/HR [facility] Comment:Patients with polycy themia and many hemoglobin abnormalitiesmay have depressed sed rates whereas patients with anemiamay have elevated sed rates. 08/20/2025 3:43 PM EST 08/20/2025 5:52 PM EST us Generic External Data Provider LAB BLOOD ORDERAB LES Final Result Performing Organization Address [facility] Co de Phone Number [facility] [address] [place] [phone] * (ABNORMAL) C-reactive Protein (08/20/2025 3:43 PM EST) C Reactive Protein 1.05(H) < or = 0.50 mg/dL [facility] 08/20/2025 3:43 PM EST 08/20/2025 5:52 PM EST Generic External Data Provider LAB BLOOD ORDERAB LES Final Result Performing Organization Address [facility] de Phone Number [facility] [address] [place] [phone] * Comprehensive Metabolic Panel (08/20/2025 3:43 PM EST) Sodium 142 135 - 145 mmol/L [facility] Potassium 3.7 3.3 - 5.1 mmol/L [facility] Chloride 108 96 - 108 mmol/L [facility] Carbon Dioxide 26 22 - 29 mmol/L [facility] Anion Gap 12 12 - 20 [facility] Urea Nitrogen (BUN) 13 9 - 16 mg/dL [facility] Creatinine, Serum 0.95 0.5 - 1.4 mg/dL [facility] Estimated Glomerular Filt Rate >60 [facility] Comment:Chronic Kidney Disea se: Estimated GFR < 60 mL/min/1.04f1Wetwgf Kidney Disease: Estimated GFR < 15 mL/min/1.73m2 Glucose 91 60 - 115 mg/dL [facility] Calcium 9.2 8.4 - 10.2 mg/dL [facility] Bilirubin, Total 0.2 0.0 - 1.0 mg/dL [facility] Aspartate Amino Transferase 18 5 - 31 U/L [facility] Alanine Aminotransferase 13 0 - 31 U/L [facility] Total Protein 7.9 6.5 - 8.0 g/dL [facility] Albumin Level 4.3 3.5 - 5.0 g/dL [facility] Alkaline Phosphatase 110 39 - 117 U/L [facility] 08/20/2025 3:43 PM EST 08/20/2025 5:52 PM EST us Generic External Data Provider LAB BLOOD ORDERAB LES Final Result [facility] [address] [place] [phone] * NM Gastric Emptying Solid (07/22/2025 8:49 AM EST) Anatomical Region Laterality Modality Body Nuclear Medicine 07/22/2025 8:49 AM EST Narrative 07/22/2025 12:20 PM EST [address] [address] Nuclear Medicine Report Signed Patient: Elaine Rodas MR#: [id number] : 1970 Acct:[id number] Age/Sex: 54 / F ADM Date: 07/22/25 Loc: [facility] Attending Dr: Bhavana RUSS Ordering Physician: Bhavana Vazquez Date of Service: 07/22/25 Procedure(s): NM gastric emptying study Accession Number(s): [id number] cc: Bhavana Vazquez; Mychal Long MD Reason for Exam: R11.0 - Nausea EXAMINATION: NM RADIONUCLIDE SOLID FOOD GASTRIC EMPTYING 4-HOUR STUDY CLINICAL INFORMATION: R11.0 - Nausea COMPARISON: None TECHNIQUE: A standard meal consisting of 4 oz of Egg Beaters brand tagged with 0.95 microcuries Tc-99m Sulfur Colloid, 6 oz water and 1 slices of toast with jelly was administered orally to the patient. Images were obtained using a dual head gamma camera in the anterior and posterior projections over of the stomach immediately post ingestion and at hourly intervals. Study was terminated after 3 hours due to near complete emptying. The anterior and posterior counts at each time interval were averaged using the geometric mean and expressed as percentage of the immediate post ingestion counts. FINDINGS: There is good visualization of activity in the stomach immediately post ingestion. As the study progresses, there is good clearance of activity from the stomach and visualization of progressively increasing small bowel activity. By the end of the study, there is almost no retention noted in the stomach. Retention in the stomach at each time interval was: 1 hour 78% (normal 37%-90%) 2 hours 33% (normal 30%-60%) 3 hours 3% NM/NM gastric emptying study IMPRESSION: Normal solid food gastric emptying study. For solid meal, rapid gastric emptying is less than 30% at 60 minutes. Delayed gastric emptying criteria is more than 60% remaining at 120 minutes or more than 10% at 240 minutes. The 4-hour value is the best discriminator of a normal or abnormal result). Gastric emptying study grading per JNMT Consensus Recommendations in 2008 (https://tech.snmjournals.org/content/36/44) Grade 1 (mild retention): 11-20% at 4h Grade 2 (moderate retention): 21-35% at 4h Grade 3 (severe retention): 36-50% at 4h Grade 4 (very severe retention): >50% retention at 4h Electronically signed by: Jose Mcnamara MD 07/22/2025 12:17 PM [facility] Dictated By: Jose Mcnamara MD Signed By: <Electronically signed by Jose Mcnamara MD in OV> 07/22/25 1217 DD/ 0849 TD/TT: 07/22/25 1200 Rn Corrections: Procedure Note Donotuseinterpreter, Image - 07/22/[address] [address] Nuclear Medicine Report Signed Patient: Elaine RodasMR#: [id number] : 1970Acct:[id number] Age/Sex: 54 / FADM Date: 07/22/25 Loc: [facility] Attending Dr: Bhavana RUSS Ordering Physician: Bhavana Vazquez Date of Service: 07/22/25 Procedure(s): VT gastric emptying study Accession Number(s): [id number] cc: Taylor [facility]-; Mychal Long MD Reason for Exam: R11.0 - Nausea EXAMINATION: VT RADIONUCLIDE SOLID FOOD GASTRIC EMPTYING 4-HOUR STUDY CLINICAL INFORMATION: R11.0 - Nausea COMPARISON: None TECHNIQUE: A standard meal consisting of 4 oz of Egg Beaters brand tagged with 0.95 microcuries Tc-99m Sulfur Colloid, 6 oz water and 1 slices of toast with jelly was administered orally to the patient. Images were obtained using a dual head gamma camera in the anterior and posterior projections over of the stomach immediately post ingestion and at hourly intervals. Study was terminated after 3 hours due to near complete emptying. The anterior and posterior counts at each time interval were averaged using the geometric mean and expressed as percentage of the immediate post ingestion counts. FINDINGS: There is good visualization of activity in the stomach immediately post ingestion. As the study progresses, there is good clearance of activity from the stomach and visualization of progressively increasing small bowel activity. By the end of the study, there is almost no retention noted in the stomach. Retention in the stomach at each time interval was: 1 hour 78% (normal 37%-90%) 2 hours 33% (normal 30%-60%) 3 hours 3% VT/VT gastric emptying study IMPRESSION: Normal solid food gastric emptying study. For solid meal, rapid gastric emptying is less than 30% at 60 minutes. Delayed gastric emptying criteria is more than 60% remaining at 120 minutes or more than 10% at 240 minutes. The 4-hour value is the best discriminator of a normal or abnormal result). Gastric emptying study grading per JNMT Consensus Recommendations in 2008 (https://tech.snmjournals.org/content/36/44) Grade 1 (mild retention): 11-20% at 4h Grade 2 (moderate retention): 21-35% at 4h Grade 3 (severe retention): 36-50% at 4h Grade 4 (very severe retention): >50% retention at 4h Electronically signed by: Jose Mcnamara MD 07/22/2025 12:17 PM [facility] Dictated By: Jose Mcnamara MD Signed By: <Electronically signed by Jose Mcnamara MD in OV> 07/22/25 1217 DD/ 0849 TD/TT: 07/22/25 1200 Rn Corrections: [facility] External Provider IMG NM PROCEDURES Final Result * XR Chest 2 Views (06/30/2025 10:11 AM EDT) Anatomical Region Laterality Modality Chest Radiographic Hilda ging 06/30/2025 10:1 1 AM EDT Narrative 06/30/2025 10:18 AM EDT [address] [address] XRay Report Signed Patient: Elaine Rodas MR#: [id number] : 1970 Acct:[id number] Age/Sex: 54 / F ADM Date: 06/30/25 Loc: [facility] Attending Dr: Mychal Long MD Ordering Physician: Mychal Long MD Date of Service: 06/30/25 Procedure(s): XR chest 2V Accession Number(s): [id number] cc: Mychal Long MD Reason for Exam: [...] Lydia Oneal MD 06/30/2025 10:15 AM EDT Dictated By: Lydia Oneal MD Signed By: <Electronically signed by Lydia Oneal MD in OV> 06/30/25 1015 DD/ 1011 TD/TT: 06/30/25 1011 Rn Corrections: DORITA Procedure Note Donotuseinterpreter, Image - 06/30/[address] [address] XRay Report Signed Patient: Elaine RodasMR#: [id number] : 1970Acct:[id number] Age/Sex: 54 / FADM Date: 06/30/25 Loc: HO.HHCL Attending Dr: Mychal Long MD Ordering Physician: Mychal Long MD Date of Service: 06/30/25 Procedure(s): XR chest 2V Accession Number(s): [id number] cc: Mychal Long MD Reason for Exam: [...] Lydia Oneal MD 06/30/2025 10:15 AM EDT Dictated By: Lydia Oneal MD Signed By: <Electronically signed by Lydia Oneal MD in OV> 06/30/25 1015 DD/ 1011 TD/TT: 06/30/25 1011 Rn Corrections: DORITA us Mychal Morris MD IMG XR PROCEDURES Jhonatan mike Result - Final * (ABNORMAL) ANCA Vasculitides (06/08/2025 2:31 PM EDT) Myeloperoxidase Antibody <1.0 [facility] Comment:Value Interpretation ----- <1.0 No Antibody Detected > or = 1.0 Antibody DetectedAutoantibodies to myeloperoxidase (MPO) are commonlyassociated with the following small-vesselvasculitides: microscopic polyangiitis,polyarteritis nodosa, Churg-Faheem syndrome,necrotizing and crescentic glomerulonephritis andoccasionally granulomatosis with polyangiitis(GPA, Jensen's). The perinuclear IFA pattern,(p-ANCA) is based largely on autoantibody tomyeloperoxidase which serves as the primary antigen.These autoantibodies are present in active disease. Proteinase-3 Antibody 13.9(A) AI [facility] Comment:Since patient sera m ay contain heterogeneous antibodypopulations, caution should be utilized in interpretingresults >8.0 due to varying degrees of non-linearity. Value Interpretation ----- <1.0 No Antibody Detected > or = 1.0 Antibody DetectedAutoantibodies to proteinase-3 (ID-3) are accepted ascharacteristic for granulomatosis with polyangiitis(GPA, Jensen's), and are detectable in 95% of thehistologically proven cases. The cytoplasmic IFApattern, (c-ANCA), is based largely on autoantibody toPR-3 which serves as the primary antigen.These autoantibodies are present in active disease.THIS TEST WAS PERFORMED AT:[facility] [place] [phone] PRESSLEY MD 06/08/2025 2:31 PM EDT 06/08/2025 2:31 PM EDT us Generic External Data Provider LAB BLOOD ORDERAB LES Final Result [facility] [address] [place] [phone] * T-SPOT??.TB (06/08/2025 2:31 PM EDT) T Spot TB Negative Negative [facility] Comment:A negative test resu lt [...] as aquantitative test. TS PANEL A 0 [facility] TS PANEL B 0 [facility] Negative Control Passed [facility] Positive Control Passed [facility] Comment:For additional infor lynda, please refer tohttp://education.PathSource/faq/EEM307(This link is being provided for informational/educational purposes only.)THIS TEST WAS PERFORMED AT:[facility] [id number] [place] [address]WIMLRTPANSON CALVILLO MD,PHD 06/08/2025 2:31 PM EDT 06/08/2025 2:31 PM EDT us Generic External Data Provider LAB BLOOD ORDERAB LES Final Result [facility] [address] [place] [phone] * Hypersensitivity Pneumonitis Screen (06/08/2025 2:31 PM EDT) Aspergillus fumigatus Ab NEGATIVE NEGATIVE [facility] Micropolyspora Faeni NEGATIVE NEGATIVE [facility] [place] Serum Abs NEGATIVE NEGATIVE [facility] Thermoactinomyces candidus NEGATIVE NEGATIVE [facility] Thermoactinomyces vulgaris Ab NEGATIVE NEGATIVE [facility] Saccharomonospora viridis Ab NEGATIVE NEGATIVE [facility] Comment:This test was develo ped and its analytical performancecharacteristics have been determined by [employer].It has not been cleared or approved by the FDA. This assayhas been validated pursuant to the CLIA regulations and isused for clinical purposes.THIS TEST WAS PERFORMED AT:[facility] [id number] [place] [address]EIFRVMICHAELA MORGAN MD,PHD,GIULIA 06/08/2025 2:31 PM EDT 06/08/2025 2:31 PM EDT us Generic External Data Provider LAB BLOOD ORDERAB LES Final Result [facility] [address] [place] [phone] * (ABNORMAL) Basic Metabolic Panel (05/22/2025 2:00 PM EDT) Sodium 141 135 - 145 mmol/L [facility] Potassium 3.8 3.3 - 5.1 mmol/L [facility] Chloride 105 96 - 108 mmol/L [facility] Carbon Dioxide 29 22 - 29 mmol/L [facility] Anion Gap 11(L) 12 - 20 [facility] Urea Nitrogen (BUN) 8(L) 9 - 16 mg/dL [facility] Creatinine, Serum 0.85 0.5 - 1.4 mg/dL [facility] Estimated Glomerular Filt Rate >60 [facility] Comment:Chronic Kidney Disea se: Estimated GFR < 60 mL/min/1.56r4Jhuanl Kidney Disease: Estimated GFR < 15 mL/min/1.73m2 Glucose 110 60 - 115 mg/dL [facility] Calcium 9.0 8.4 - 10.2 mg/dL [facility] Blood Venous blood specimen / Unknown 05/22/2025 2:00 PM EDT 05/22/2025 2:00 PM EDT us Mychal Morris MD LAB BLOOD ORDERABLES Final Result Performing Organization Address [facility]/ZIP Co de Phone Number [facility] [address] [place] [phone] * Hepatitis C Ab (11/05/2024 3:21 PM EST) Hepatitis C Antibody Nonreactive Nonreactive [facility] Comment:Antibodies to HCV no t detected; does not exclude early acuteHCV infection. 11/05/2024 3:21 PM EST 11/05/2024 3:21 PM EST us Generic External Data Provider LAB BLOOD ORDERAB LES Final Result Performing Organization Address [facility] de Phone Number [facility] [address] [place] [phone] * HIV-1/2 Antigen and Antibodies, Fourth Generation, with Reflexes (11/05/2024 3:21 PM EST) Pathologist [facility] HIV AB/AG Nonreactive Nonreactive [facility] Comment:HIV-1 p24 Ag and/or HIV-1/HIV-2 Ab not detected.A test result that is nonreactive does not exclude thepossibility of exposure to or infection with HIV-1 and/orHIV-2. Nonreactive results in this assay for individualswith prior exposure to HIV-1 and/or HIV-2 may be due toantigen and antibody levels that are below the limit ofdetection of this assay.The [employer] HIV Ag/Ab Combo assay result andsupplemental assay results should be interpreted inconjunction with the patient's clinical presentation,history and other laboratory results. If the results areinconsistent with clinical evidence, additional testing issuggested to confirm the result. 11/05/2024 3:21 PM EST 11/05/2024 3:21 PM EST us Generic External Data Provider LAB BLOOD ORDERAB LES Final Result Performing Organization Address [facility] Co de Phone Number [facility] [address] [place] [phone] * BI Mammogram Screening Tomosynthesis Bilateral (10/29/2024 12:58 PM EST) Anatomical Region Laterality Modality Breast Bilateral Mammography 10/29/2024 12:5 8 PM EST Narrative 11/04/2024 12:41 PM EST [address] [place] [address] Mammography Report Signed Patient: Elaine Rodas MR#: [id number] : 1970 Acct:[id number] Age/Sex: 53 / F ADM Date: 10/29/24 Loc: HO.MAMMO Attending Dr: Mychal Long MD Ordering Physician: Syed Coreas MD Results: 1Negativ e Date of Service: 10/29/24 Follow Up: 1 Year From Orig ina Mammogram Procedure(s): MM tomosynthesis screening BI Accession Number(s): [id number] cc: Mychal Long MD; Syed Coreas MD [...] 11/04/24 1238 DD/ 1258 TD/TT: 10/29/24 1315 Rn Corrections: Procedure Note Donotuseinterpreter, Image - 11/04/2024 [facility] [address] [place] [address] Mammography Report Signed Patient: Elaine RodasMR#: [id number] : 1970Acct:[id number] Age/Sex: 53 / FADM Date: 10/29/24 Loc: HO.MAMMO Attending Dr: Mychal Long MD Ordering Physician: Syed Coreas MDResults: 1Negativ e Date of Service: 10/29/24Follow Up: 1 Year From Orig inal Mammogram Procedure(s): MM tomosynthesis screening BI Accession Number(s): [id number] cc: Mychal Long MD; Syed Coreas MD [...] 11/04/24 1238 DD/ 1258 TD/TT: 10/29/24 1315 Rn Corrections: [facility] External Provider IMG BI PROCEDURES Final Result * HPV mRNA E6/E7 w/Reflex to HPV Genotypes 16, 18/45 (08/23/2023 2:22 PM EST) HPV nRNA E6/E7 Not Detected Not Detected [facility] Comment:Methodology: Transcr iption-Mediated AmplificationThis assay detects E6/E7 viral messenger RNA (mRNA) from 14high-risk HPV types (16,18,31,33,35,39,45,51,52,56,58,59,66,68).Cervical sources are required for HPV testing.If a vaginal source from a patient who has had atotal hysterectomy with removal of cervix wassubmitted, please contact the testing laboratoryfor alternative testing options.For additional information, please refer tohttp://education.PathSource/faq/TQH465x3(This link if provided for information/educational purposes only.)THIS TEST WAS PERFORMED AT:[facility] [place] [phone] PRESSLEY MD HPV mRNA E6/E7 TNP [facility] HPV 16 RNA [facility] HPV 18/45 RNA [facility] 08/23/2023 2:22 PM EST 08/24/2023 9:35 AM EST Cecily STANTON LAB CYTOLOGY ORDERABLES F inal Result [facility] [address] [place] [phone] * Pap Smear (08/23/2023 2:22 PM EST) Swab Cervix uteri structure / Unknown 08/23/2023 2:22 PM EST 08/24/2023 9:35 AM EST Narrative [facility] - 09/04/2023 1:23 PM EST ----- ------- Name: Elaine Rodas Age/Sex: 52/F : 1970 Unit#: [id number] Attend Dr: Re08/23/23 Status: PRE REF Location: [facility] Disch: ----- ------- SPEC : [id number] RECD: 08/24/23 STATUS: RICHARD OLIVE NUM: [id number] [place]: 08/23/23-[address] [facility] [address]: CECILY SCHWAB [facility] ENTERED: 08/24/23 SP TYPE: Pap Smr KENROY DR: ORDERED: Pap Smear Interpretation Satisfactory for evaluation. No endocervical cells seen. Cytolysis noted. Negative for intraepithelial lesion or malignancy. HPV mRNA E6/E7: NOT DETECTED This assay detects E6/E7 viral messenger RNA (mRNA) from 14 high-risk HPV types (16, 18, 31, 33, 35, 39, 45, 51, 52, 56, 58, 59, 66, 68) HPV testing performed by [employer], [place], [place]. See reference laboratory portion of the EMR for entire report. Clinical Information LMP: Postmenopausal Previous PAP test: Unknown date/findings Other history: Abnormal bleeding Material Received ThinPrep-Cervical ----- ------- Signed (signature on file) NATHAN Medrano ([facility]) 09/04/23 1323 ----- ------- END OF REPORT Cecily [facility] LAB CYTOLOGY ORDERABLES F inal Result [facility] [address] [place] [phone] * Colonoscopy (08/30/2022) Pathologist [facility] Colonoscopy Normal Normal Historical Provider MD HEALTH MAINTENANCE Final Result * (ABNORMAL) LIPID PANEL, STANDARD (06/17/2020 3:00 PM EDT) [facility] HDL Cholesterol 53 > OR = 50 [...] LDL-C. Mina MARRERO et al. ASHUTOSH. 2013;310(19): 8812-5465 (http://education.innocutis.com/faq/ZUR682) Chol/HDLC Ratio 3.4 <5.0 (calc) [facility] 06/17/2020 3:00 PM EDT Mychal Morris MD LAB BLOOD ORDERABLES Final Result [facility] [address] from Last 3 Months or Most Recently Relevant to Health Maintenance Insurance [address] C3 Care Teams Medical Reimbursement Specialist Relationship Specialty Start Date End Date Mychal Fields MD [address] [place] [phone] PCP - General Internal Medicine 04/30/14 Hima Fam FNP [address] [place] [phone] Nurse Practitioner Family Medicine 08/01/23 Rheumatology, [address] [place] [address] Rheumatology 06/30/25
--- OUTSIDE RECORDS SUMMARY | 2025-08-20 22:04 | XMS_ITS | Data Portability ---
Author Organization [place] - [facility], Allergy Address [address] [address] Care Team Providers Care Fire Alarm Technician Name Role Phone GIACOMO MARX Primary Care Provider GIACOMO MARX Referring Provider [phone] Assessment Encounter Date Assessment Date Assessment LastModified [...] Organization Details Last Modified Time Details Appointments None recorded. Lab None recorded. Referral None recorded. Procedures allergy testing, skin prick (PROC) 2023 024 [email or web address] Not available 4 12:51:20 intraderma l allergy skin testing (PROC) 2023 024 [email or web address] Not available 4 12:51:20 pulmonary function test procedure (PROC) 2023 024 [email or web address] Not available 4 12:51:20 pulse oximetry (PROC) 2023 024 [email or web address] Not available 4 12:51:20 Surgeries fine needle aspiration , thyroid, deep tissue, under radiologic guidance (SURG) 2023 024 [email or web address] Not available 4 07:43:13 laryngosco py, direct operative with operating microscope or telescope with biopsy (SURG) 2023 024 [email or web address] Not available 07:43:13 Imaging None recorded. Medication Orders None recorded. Patient TargetsNo targets recorded. Patient InstructionsNo instructions recorded. Reason for Referral None Reported. Results Created Date Observation Date Name Description Value Unit Range Abnormal Flag Note LastModifiedBy Organization Detail LastModifiedTime 02/20/20 24 02/19/2024 US, thyro id No observ ation record ed. [email or web address] [facility] [place] [address], [place], [address], 02/25/2024 09:12:35 03/31/20 24 03/31/2024 US, neck, soft tissu e No observ ation record ed. [facility] (Imaging) [address], [place], [address], 04/11/2024 16:05:21 04/28/20 24 04/10/2024 clini bertha photo * No observ ation record ed. [email or web address] Not Available 17:00:02 04/29/20 24 05/08/2023 imagi ng/di agnos tic resul t No observ ation record ed. [email or web address] Not Available 21:42:28 Result Notes None recorded. Problems Name Problem SNOMED Code Status Onset Date Resolution Date Notes Provider Name and Address Organization Details Recorded Time Mass of neck 114497356 Active 2023 Localized swelling, mass and lump, neck; Note: Date Diagnosed : 11/08/2023 11:56 AM (R22.1) Not Available [facility] 4 02:45:02 Neck swelling 354204827 Active 2023 Localized swelling, mass and lump, neck; Note: Date Diagnosed : 11/08/2023 11:56 AM (R22.1) Not Available [facility] 4 02:45:02 Neck pain 97357430 Active 2023 Cervicalg ia; Note: Date Diagnosed : 11/08/2023 11:56 AM (M54.2) Not Available [facility] 4 02:45:02 Dysphagia 88913040 Active 2023 Dysphagia , unspecifi ed; Note: Date Diagnosed : 11/08/2023 11:56 AM (R13.10) Not Available [facility] 4 02:45:05 Non-toxic uninodula r goiter 660126026 Active 2023 Nontoxic single thyroid nodule; Note: Date Diagnosed : 01/18/2024 11:58 AM (E04.1) Not Available [facility] 4 02:45:01 Thyroid nodule 411501220 Active 2023 MADHU REYES MD [address] [facility],[place] [address], [place], [address] , [place] - [facility] 4 16:36:38 Hypertrop hy of tonsils AND adenoids 17199100 Active 2023 MADHU REYES MD [address] [place] [address],[place] [address], [place], [place], [address] , [place] - [facility] 4 16:36:47 Hypertrop hy of lingual tonsil 482860412 Active 2023 MADHU REYES MD [address] [place] [address],[place] [address], [place], [address] , [place] - [facility] 4 16:36:52 Obstructi ve sleep apnea of adult 17102846060 03 Active 2023 MADHU REYES MD [address] [place] [address],[place] [address], [place], [address] , [place] - [facility] 4 08:48:15 Seasonal allergic rhinitis 304146020 Active 2023 MADHU REYES MD [address] [place] [address],[place] [address], [place], [address] , [facility] - [facility] 4 08:52:06 Allergic rhinitis 40429146 Active 2023 MADHU REYES MD [address] [place] [address],[place] [address], [place], [address] , [facility] - [facility] 4 08:52:17 Non-aller gic rhinitis 83690687190 1 Active 2023 MADHU REYES MD 100 [facility] [place] [address], [facility] [place], [address] , [facility] - [facility] 4 08:52:17 Problem Notes None recorded. Procedures Surgical History Date Name Laterality Status Provider Name and Address Organization Details Recorded Time 4 LARYNGOSCOPY, DIRECT OPERATIVE WITH OPERATING MICROSCOPE OR TELESCOPE WITH BIOPSY (SURG) completed Paulo Faria [place] - [facility] 04/14/2024 09:38:40 4 FFL_RE completed MADHU REYES MD 100 [facility] [place] [address], [place], [address], [facility] - [facility] 03/18/2024 17:33:49 Imaging Results None recorded. Procedure [...] % eye drops active Medicatio n ID: [id number] Br and Name: latanopro st Send Method: E-Prescri bed Subs Allowed: subs OK Specia l Instructi on: PUT 1 DROP INTO BOTH EYES AT BEDTIME M edication GenericNa me: latanopro st Not Available Not Available Not Available terconazol e 0.4 % vaginal cream active Medicatio n ID: [id number] Br and Name: terconazo le Send Method: [...] 8.6 mg tablet active Medicatio n ID: [id number] Br and Name: sakshi Sellers d Method: E-Prescri bed Subs Allowed: subs OK Specia l Instructi on: TAKE 1 TO 2 TABLETS BY MOUTH AT BEDTIME FOR CONSTIPAT ION Medic ationGene ricName: senna Not Available Not Available Not Available clonazepam 1 mg tablet TAKE 1 TABLET BY MOUTH 3 TIMES DAILY. active Not Available Not Available No t [...] Available Not Available No t Available hydrocorti sone 2.5 % topical cream with perineal applicator APPLY RECTALLY 2 TIMES A DAY FOR HEMORRHOI DS. active Not Available Not Available No t [...] 20 mg tablet active Medicatio n ID: [id number] Br and Name: dicyclomi ne Send Method: [...] 10 mg tablet active Medicatio n ID: [id number] Br and Name: buspirone Send Method: E-Prescri [...] Not Available Not Available No t Available furosemide 20 mg tablet TAKE 1 TABLET BY MOUTH EVERY OTHER DAY FOR 4 DAYS active Not Available Not Available No t Available gabapentin 100 mg capsule active Medicatio n ID: [id number] Br and Name: gabapenti n Send Method: [...] Not Available Not Available No t Available Vitamin D3 25 mcg (1,000 unit) capsule TAKE 1 CAPSULE BY MOUTH EVERY DAY active Not Available Not Available No t Available eletriptan 20 mg tablet 1 TABLET BY MOUTH ONCE NEEDED FOR MIGRAINE HEADACHE, INSTR:MAY REPEAT DOSE ONCE IN 2 HOURS active Not Available Not Available No t Available nicotine (polacrile x) [address] LOZENGE BUCCALLY EVERY 8 HOURS NEEDED FOR NICOTINE CRAVINGS active Not Available Not Available No t Available Allergy Relief D-24hr 10 mg-240 mg tablet,ext ended release TAKE 1 TABLET BY MOUTH ONCE PER DAY. DO NOT CRUSH, CHEW, OR SPLIT. *OTC* active Not Available Not Available No t Available solifenaci n 10 mg tablet TAKE 1 TABLET BY MOUTH ONCE A DAY active Not Available Not Available No t Available vareniclin e tartrate 1 mg tablet TAKE 1 TABLET BY MOUTH TWICE A DAY WITH GLASS OF WATER AFTER MEALS active Not Available Not Available No t Available diclofenac 1 % topical gel active Medicatio n ID: [id number] Br and Name: diclofena c sodium Se [...] capsule,de layed release active Medicatio n ID: [id number] Br and Name: Creon Marlo d Method: E-Prescri bed Subs Allowed: subs OK Specia l Instructi on: TAKE 1 CAPSULE BY MOUTH 4 TIMES A DAY. ADMINISTE R WITH MEALS AND OR SNACKS Me dicationG enericNam e: Creon Not Available Not Available Not Available blood pressure test kit-large cuff active Medicatio n ID: [id number] Br and Name: blood pressure test kit-large Send Method: E-Prescri bed Subs Allowed: subs OK Specia l Instructi on: USE TO CHECK BLOOD PRESSURE ONCE DAILY IN THE MORNING M edication GenericNa me: blood pressure test kit-large Not Available Not Available Not Available Dexilant 60 mg capsule, delayed release active Medicatio n ID: [id number] Br and Name: Dexilant Send Method: E-Prescri bed Subs Allowed: subs OK Specia l Instructi on: TAKE 1 CAPSULE BY MOUTH EVERY DAY Medic ationGene ricName: Dexilant Not Available Not Available Not Available Arnuity Ellipta 100 mcg/actuat ion powder for inhalation INHALE 1 PUFF DAILY active Not Available Not Available No t Available Breo Ellipta 200 mcg-25 mcg/dose powder for inhalation INHALE 1 PUFF DAILY [...] Updated DateTime 03/18/2024 160.02 cm 36.8 kg/m2 71096.21 g Kodi Soni [place] [facility] 03/18/2024 16:16:00 Date Recorded Body height Body mass index (BMI) Body weight Provider Name and Address Organization Details Last Updated DateTime 04/25/2024 160.02 cm 36.8 kg/m2 65004.21 g Janeth Castro [facility] 04/25/2024 15:19:15 Date Recorded Body height Body mass index (BMI) Body weight Provider Name and Address Organization Details Last Updated DateTime 07/30/2024 160.02 cm 36.8 kg/m2 34365.21 g Marley Santamaria [facility] 07/30/2024 08:31:21 Social History None recorded. Functional Status None recorded. Mental Status None recorded. Family History Nothing Reported. Medical History No medical history recorded. Gynecological HistoryNo gynecological history recorded. Obstetrics History GPAL:G 0 P 0 0 0 0 Past Encounters Encounter ID Performer Location Encounter Start Date Encounter Closed Date Diagnosis/Indication Diagnosis SNOMED-CT Code Diagnosis ICD10 Code Diagnosis IMO Codes Diagnosis Note [id number] MADHU REYES MD [facility] [address] [address] 03/18/2024 15:41:26 03/18/2024 17:01:09 Thyroid nodule 399528738 E04.1 I recommend a US guided FNA of the thyroid nodule. She will f/u to review. Hypertroph y of tonsils AND adenoids 71810395 J35.3 hypertroph y of Waldeyer's ring. lingual tonsil biopsy is less morbid to evaluate for lymphoma. see below. Hypertroph y of lingual tonsil 243565912 J35.3 I recommend direct laryngosco py with [...] We will schedule surgery mutually convenient time. [id number] CIERRA GARCIA PA-C [facility] [address] [address] 04/25/2024 15:12:06 04/30/2024 07:57:22 Hypertrophy of lingual tonsil 202985393 J35.3 Hypertroph y of tonsils AND adenoids 56593075 J35.3 Neck pain 90673216 M54.2 [id number] MADHU REYES MD [facility] [address] [address] 07/30/2024 08:28:17 07/30/2024 08:55:15 Hypertrophy of lingual tonsil 639754038 J35.3 Biopsies negative. Gave reassuranc e. Continue observatio n. Deferred laryngosoc py today. Obstructiv e sleep apnea of adult 0313206709 103 G47.33 Agree with starting CPAP which is in process. Thyroid nodule 698339843 E04.1 Recommend repeat thyroid US at [facility] after next visit in 6 months. Seasonal a llergic rhinitis 933103213 J30.2 Exam and history are consistent with allergic rhinitis. We will obtain allergy testing to clarify the extent of allergy with f/u to review. Allergic rhinitis 720611 04 J30.9 Non-allergic rhinitis 31 29496986 01 J31.0 Health Concerns Section Related Observation LastModified by Organization Detai ls LastModified Time None Recorded Concern Status LastModified by Organization Details LastModified Time None Recorded Advance Directives Directive None Recorded Payers Insurance Date Sequence Insurance Name Policy Number Policy Tompkins Covered Member ID Tompkins Member ID Guarantor Name 05/05/2025 1 [place] [facility] Elaine Rodas [id number] Elaine Rodas Notes Date Note Type Note Provider Name and Address Organization Details Recorded Time 03/18/2024 text/html ROS as noted in the HPI She presented with neck pain which radiates to the right [...] by her other doctors. MADHU REYES MD [address] [place] [address],[address], [address], [place] - [facility] 03/18/2024 17:45:03 04/25/2024 text/html ROS as noted in the HPI 53-year-old female presents following DL with biopsy. She continues to have mild sore throat but no bleeding. Biopsy was done due to hypertrophy of Waldeyer's ring on imaging. MADHU REYES MD [address] [place] [address],[address], [address], [place] - [facility] 04/29/2024 10:01:40 07/30/2024 text/html ROS as noted in the HPI Hx of hypertrophy of tissue of Waldeyer's ring. We went [...] allergies with marginal benefit. MADHU REYES MD [address] [place] [address],[address], [address], [place] [facility] 07/30/2024 08:52:32 OBGyn Episode No OBEpisode recorded.
--- OUTSIDE RECORDS SUMMARY | 2025-08-20 22:04 | XMS_ITS | Encounter Summary ---
Author Organization [employer] Address [address] [place] [address] [address] [place] [address] Care Team Providers Care Legal Examiner Name Role Phone Mychal Fields MD Primary Care Provide r Hima Fam Unavailable Unavailable Mckenzie Silverio Unavailable [facility] Unavailable [phone] Reason for Visit * Reason Onset Date Comments Med Refill 07/16/2025 Encounter Details Date Type Department Care Team ([facility] st Contact Info) Description 07/16/2025 Telephone [facility] MEDICINE [address] [place], [place] [phone] Mychal Fields MD [address] [place], [place] [phone] Med Refill Social History Tobacco Use Types [...] 10 MG tablet To be sent to: [id number] [address] documented in this encounter Plan of Treatment Not on file documented as of this encounter Visit Diagnoses Not on filedocumented in this encounter Additional Health Concerns Assessment Noted Time PHQ-9 Depression Total Score: 15 025 12:51 PM EDT documented as of this encounter Care Teams Legal Examiner Relationship Specialty Start Date End Date Mychal Fields MD [address] [place] [address] PCP - General Internal Medicine 04/30/14 Hima Fam FNP [address] [place] [address] Nurse Practitioner Family Medicine 08/01/23 Mckenzie Silverio 02/24/25 07/20/[address] [place] [address] Rheumatology 06/30/25 documented as of this encounter
== END 2025-08-20 15:35 | disposition home or self-care (01) ==
LOC: HO.RHES 14:24
PROVIDERS: PCP Internal Medicine; Visit Provider Student in an Organized Health Care Education/Training Program
DX: M30.1 Polyarteritis with lung involvement [Churg-Strauss] (principal); D72.18 Eosinophilia in diseases classified elsewhere; M17.0 Bilateral primary osteoarthritis of knee
CPT/HCPCS: 99215

== ENCOUNTER 2025-08-21 09:29 | Outpatient (REF) | payer MEDICAID, SELFPAY ==
[2025-08-21 12:08] LABS: Cholesterol 198 mg/dL (<200); HDL Cholesterol 55 mg/dL (>40); Triglycerides 95 mg/dL (<150)
== END 2025-08-21 09:30 | disposition home or self-care (01) ==
LOC: HO.LAB 09:29
PROVIDERS: PCP Internal Medicine; Visit Provider Internal Medicine
DX: D46.9 Myelodysplastic syndrome, unspecified (principal); I10 Essential (primary) hypertension
CPT/HCPCS: 36415; 80061

== ENCOUNTER → 2025-08-21 09:33 | Outpatient (BNV) | payer MEDICAID, SELFPAY | PROVIDERS: PCP Internal Medicine; Referring Provider Nurse Practitioner Family; Visit Provider Internal Medicine Medical Oncology | DX: D72.10 Eosinophilia, unspecified (principal) | CPT/HCPCS: 99204 ==

== ENCOUNTER 2025-08-24 12:53 | Outpatient (AMB) | payer MEDICAID, SELFPAY ==
--- NOTE | 2025-08-24 12:59 | MHC.OFFVIS ---
Vital Signs 08/24/25 13:00 Height 5 ft 7 in Weight 211 lb 10.3 oz BMI 33.1 BP 150/76 H Blood Pressure Location Rt brachial Position Sitting Pulse 74 Pulse Source Pulse Oximeter Pulse Oximetry (%) 98 Oxygen Delivery Method Room Air Intake Visit Reasons: Asthma Mash Tub Cooker Operator Required: Yes Mash Tub Cooker Operator Language: Breaker Operator Services: Mash Tub Cooker Operator Present Mash Tub Cooker Operator Name: Bette Valdivia LM Allergies metronidazole Allergy (Severe, Verified 08/24/25 13:05) vomiting Penicillins Allergy (Mild, Verified 08/24/25 13:05) VAGINAL FUNGUS INFECTION lisinopril (LISINOPRIL) Allergy (Unknown, Verified 08/24/25 13:05) COUGH verapamil Allergy (Unknown, Verified 08/24/25 13:05) unknown amoxicillin Adverse Reaction (Verified 08/24/25 13:05) Unknown HPI HPI Asthma: Details: Elaine is a pleasant 54 year old female, former 30 pack year smoker, recently quit with underlying asthma, JERRI on CPAP managed through [facility], HTN and depression. Chest CT performed in June 2024 revealed stable anterior mediastinal lymphadenopathy/mass measuring 3.1 cm in the largest dimension and pulmonary nodules <2mm, compared to CT chest 12/2024 revealed a few enlarged and prominent mediastinal lymph nodes, prevascular lymph node measuring 3.3 x 1.6 cm and referred to Dr. Kern for further evaluation. She ultimately underwent thymectomy on 02/11/25, pathology reportedly benign. Unfortunately, she proceeded with previously ordered chest CT performed on 03/17/25 which noted moderate bilateral effusions and patient reported overall feeling unwell with associated dry cough, no change in dyspnea. BNP 11, prior echo 2020 unremarkable. She underwent thoracentesis on 03/27 with IP from [facility], drained 600 mls exudative fluid predominantly eosinophilic. Pleural effusions recurred and underwent repeat thoracentesis on 05/04, drained 450 mls right and 350 mls left again of eosinophilic exudate, cytology negative. Given the predominately eosinophilic drainage combined with elevated blood eosinophils, she was sent for ANCA testing which was positive. She was treated with prednisone with improvements in symptoms and no recurrent pleural effusion, ultimately evaluated by rheumatology within the last week for possible EGPA. Rheumatology noted that it is rare for vasculitis to present with pleural effusions. They are not initiating long-term treatment at this time as she is not presenting with active symptoms, but they have advised her to report any new symptoms such as cough, rashes, or hemoptysis for immediate treatment. She has an upcoming follow up later this week. Her shortness of breath has improved but persists with exertion, such as going up and down stairs. She uses Breo daily and albuterol once a day for her breathing. The patient has a history of thoracic surgery and reports tingling, non-burning pain near the surgical scar. She has a pending follow-up appointment with thoracic surgery in August or September to further discuss. HPI Comments Details: [facility] Medical History (Updated 08/24/25 @ 13:18 by Amy Zimmerman NP) Dyspnea Urine incontinence Hematuria Right sided abdominal pain Chest discomfort Well woman exam Nausea Post-cholecystectomy syndrome Cataract, right eye Bilateral primary osteoarthritis of knee Gallstone pancreatitis Palpitations Fibromyalgia Depression Glaucoma HTN (hypertension) Surgical History S/P thoracotomy H/O colonoscopy History of tubal ligation Hx of carpal tunnel repair Hx of cholecystectomy Hx of knee surgery Family History Father Kidney disease Mother CVD (cardiovascular disease) Colon cancer Social History Household Members: None Housing: Apartment Are you a primary career specialist to a significant other at home: Yes Do you presently have visiting nurse or other home services: No Alcohol intake: never Patient Tobacco Use Status: Current everyday Tobacco user Cigarette Packs Per Day: 0.5 Years Smoked: 30 service: No Current occupational status: disabled Female Reproductive History Menstrual Age of Menarche: 9 Review of Systems Const Denies chills, Denies excessive sweating, Denies fever(s), Denies headache(s) and Denies night sweats Eyes Denies dry eyes, Denies irritation and Denies itchy eyes ENT Reports Normal hearing present and Denies headache(s) Card Denies claudication, Denies leg edema, Denies dyspnea, Reports dyspnea on exertion, Denies orthopnea and Denies paroxysmal nocturnal dyspnea Resp Denies change in phlegm color, Denies chest congestion, Denies cough, Denies hemoptysis, Denies excessive phlegm production, Denies pain on inspiration, Denies pain with cough, Denies dyspnea, Reports dyspnea on exertion, Denies stridor and Denies wheezing Musc Denies myalgias Neuro Reports Normal hearing present and Denies headache(s) Endo Denies excessive sweating Jhonathan/Lymph Denies lymphadenopathy Aller/Immun Denies itchy eyes, Denies seasonal rhinorrhea and Denies wheezing Physical Exam Exam Exam: Physical Exam - Respiratory: Lungs are clear to auscultation bilaterally. Vital Signs: Last Vital Signs Pulse 74 08/24/25 13:00 BP 150/76 H 08/24/25 13:00 Pulse Ox 98 08/24/25 13:00 Oxygen Delivery Method Room Air 08/24/25 13:00 BMI result Body Mass Index 33.1 Const General: cooperative, healthy appearing, comfortable, no acute distress, well developed and alert Orientation/consciousness: patient oriented x3 Limitations: no limitations HEENT Head: Yes normal to inspection, Yes normocephalic and Yes atraumatic Ears: hearing grossly normal bilaterally and external ears normal Eyes General: appearance normal, both eyes and all related structures Eyelids: Yes eyelids normal Sclerae: sclerae normal EOM: EOMs intact bilaterally Neck Neck: Yes normal visual inspection and Yes no lymphadenopathy Lymphatic: no lymphadenopathy noted Chest Chest palpation & inspection: normal inspection of the chest Resp Effort & Inspection: normal respiratory effort, able to speak in complete sentences, no audible wheezes, no stridor, not tachypneic, no tripod positioning and no use of accessory muscles Auscultation: clear to auscultation bilaterally, no crackles, no rhonchi and no wheezes Cardio Jugular venous distension: no JVD Rate: regular rate Rhythm: regular rhythm Skin Other: warm, dry General skin exam: no rashes or lesions noted Neuro General: patient oriented x3 Cranial nerves: Yes Normal hearing present Cognition (Neuro): normal cognition Gait exam (Neuro): Normal gait present Extrem General: Yes normal to inspection, Yes capillary refill normal, Yes no clubbing, cyanosis or edema and Yes no pedal edema Psych Appearance: grossly normal and well kempt Speech and movement: Normal speech and movement present and Clear speech present Affect: normal affect Attitude: cooperative Thought process: Normal thought process present Thought content: Normal thought content present Insight: Good insight present (Psych) Judgement: Good judgement present (Psych) Assessment & Plan Assessment & Plan (1) Pleural effusion: Code(s): J90 - Pleural effusion, not elsewhere classified Category: Medical (2) Asthma: Code(s): J45.909 - Unspecified asthma, uncomplicated Category: Medical (3) Dyspnea: Code(s): R06.00 - Dyspnea, unspecified Category: Medical (4) Eosinophilia: Code(s): D72.10 - Eosinophilia, unspecified Category: Medical Plan Discussed with the patient that her ANCA testing was positive which is suggestive of vasculitis, which is an inflammation of blood vessels that can affect the entire body. Emphasized the importance of her following up with rheumatology and reporting any new symptoms, including cough, rashes, hemoptysis. Will repeat chest x-ray to check for re-accumulation of pleural fluid, which has been a recurrent problem for her. Informed her that if more fluid is present, likely she will need additional prednisone, and we acknowledged her concerns about the side effects of this medication, such as weight gain. At this time, respiratory symptoms are relatively controlled, advised to continue Breo and Albuterol MDI PRN, may consider Trelegy in the future. We discussed that the tingling pain near her surgical scar is likely nerve-related and could persist, in which case a pain management referral may be an option after she follows up with her thoracic surgeon. Advised her to follow up with thoracic surgery regarding this. Will see her back for follow-up in October, but she should not hesitate to go to the emergency room for worsening symptoms or to call our office if she needs to be seen sooner. All questions were answered and patient is in agreement of plan. Patient Instructions - Please get a chest x-ray in the next few days to check for fluid in your lungs. - Continue taking your Breo inhaler every day and use your albuterol inhaler once a day as needed for shortness of breath. - Follow up with your grounds/maintenance specialist. - Call your thoracic surgery team to confirm your next follow-up appointment to discuss the pain near your surgery scar. - A prescription for prednisone will be sent if your chest x-ray shows more fluid in your lungs. - We will plan to see you back in our office in October. - If your symptoms get worse, please go to the emergency room. If you need to be seen sooner than your next appointment, please give our office a call. Orders: Orders XR chest 2V 08/24/25 J90 - Pleural effusion, not elsewhere classified Coding Level of Care Code Est Pt Level 4 (23498) Add On Problem Visit Only Diagnoses Pleural effusion J90 Asthma J45.909 Dyspnea R06.00 Eosinophilia D72.10
[2025-08-24 13:00] VITALS: BP 150/76; PULSE 74; O2SAT 98; BMI 33.1
--- OUTSIDE RECORDS SUMMARY | 2025-08-24 18:39 | XMS_ITS | Clinical Summary ---
Author Organization [facility] [address] [facility] Address [address] [place] [address] Phone Care Team Providers Care Rack Maker Name Role Phone Mychal Long MD Primary [...] She is requesting the clinic in the hospital for behavioral medicine. Patient may follow-up with us here in [...] her lung cancer screening program here at [facility] with her LDCT due December 2025. Patient may follow-up with us here in thoracic surgery on an as-needed basis going forward. 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) (Primary Dx); Pleuritic chest pain 05/29/2025 8:26 PM EDT - 05/29/2025 10:17 PM EDT Emergency [facility] Emergency [address] [place] [phone] Macrina Valiente MD Positive D dimer (Primary Dx); Pleural effusion, bilateral; Ground glass opacity present on imaging of lung Discharge Disposition: Home or Self Care 05/29/2025 3:00 PM EDT Office Visit Pulmonology [address] [phone] Rosy Rhodes MD Bilateral pleural effusion (Primary Dx); Chest pain on breathing 05/29/2025 Telephone Pulmonology [address] [address] Rosy Rhodes MD from Last [...] Asthma Anxiety Arthritis Joint pain Thymic cyst ([facility] V24) 02/26/2025 Family History Medical History Relation Name Comments Colon cancer Father Other: kidney disease Mother Relation Name Status Comments Father Mother Social History Tobacco Use Types Packs/Day Years Used Date Smoking Tobacco: Every Day Cigarettes 0.8 31 Started: 1994 Tobacco Cessation:Ready to Q uit: [...] Description 08/31/2025 3:30 PM EST Appointment [facility] CT Scan [address] [place] [address] Health Maintenance Due Date Last [...] by: Elena Burnette MD on 05/29/2025 21:25:46 Racheal [facility] PROCEDURES Final Result * (ABNORMAL) CBC [...] K/mcL LAB [facility] Neut[facility]ils [facility] 58.6 % LAB HEMETOLOGY METHOD 05/29/2025 4:16 PM [facility] Lymphocytes Relative 30.4 % LAB HEMETOLOGY METHOD 05/29/2025 4:16 PM [facility] Monocytes Relative 4.4 % LAB HEMETOLOGY METHOD 05/29/2025 4:16 PM EDT [facility] Eosinophils Relative 5.5 % LAB HEMETOLOGY METHOD 05/29/2025 4:16 PM EDT [facility] Basophils Relative 0.8 % LAB HEMETOLOGY METHOD [facility] Immature Granulocytes Relative 0.3 % LAB HEMETOLOGY METHOD 05/29/2025 4:16 PM EDT [facility] Neutrophils Absolute 5.20 1.50 - 7.00 K/[facility] LAB HEMETOLOGY METHOD 05/29/2025 4:16 PM EDT [facility] Lymphocytes Absolute 2.70 1.00 - 5.00 K/mcL LAB HEMETOLOGY METHOD 05/29/2025 4:16 PM EDT [facility] Monocytes Absolute 0.39 0.20 - 1.00 K/[facility] LAB HEMETOLOGY METHOD 05/29/2025 4:16 PM EDT [facility] Eosinophils Absolute 0.49 0.00 - 0.50 K/[facility] LAB HEMETOLOGY METHOD 05/29/2025 4:16 PM EDT [facility] Basophils Absolute 0.07 0.00 - 0.20 K/[facility] LAB HEMETOLOGY METHOD 05/29/2025 4:16 PM EDT [facility] Immature Granulocytes Absolute 0.03 0.00 - 0.03 K/[facility] LAB HEMETOLOGY METHOD 05/29/2025 4:16 PM EDT [facility] Blood Venous blood specimen / Unknown Venipuncture / Unknown 05/29/2025 3:41 PM EDT 05/29/2025 4:05 PM EDT us Rosy Rhodes MD LAB BLOOD ORDERABLES Final Result [facility] [address] [place] [address], * (ABNORMAL) D-Dimer (05/29/2025 3:41 PM EDT) [...] infected, trauma patients, DIC, acute CVA, acute [place], unstable angina, AF, old age, , and smoking. D-Dimer may be decreased with: Initiation of heparin therapy and oral anticoagulants. us Rosy Rhodes MD LAB BLOOD ORDERABLES Final Result [facility] [address] [place] [address], * (ABNORMAL) Basic metabolic panel (05/29/2025 3:41 PM EDT) Sodium 138 133 - 145 mmol/L LAB CHEMISTRY METHOD 05/29/2025 4:31 PM [facility] Potassium 4.0 3.5 - 5.5 mmol/L LAB CHEMISTRY METHOD 05/29/2025 4:31 PM [facility] Chloride 106 96 - 110 mmol/L LAB CHEMISTRY METHOD 05/29/2025 4:31 PM [facility] CO2 28 21 - 32 mmol/L LAB CHEMISTRY METHOD 05/29/2025 4:31 PM [facility] Anion Gap 4 3 - 11 LAB CHEMISTRY METHOD 05/29/2025 4:31 PM [facility] Glucose 108(H) 70 - 100 mg/dL LAB CHEMISTRY METHOD 05/29/2025 4:31 PM [facility] BUN 9 5 - 25 mg/dL LAB CHEMISTRY METHOD 05/29/2025 4:31 PM [facility] Creatinine 0.86 0.50 - 1.10 mg/dL LAB CHEMISTRY METHOD 05/29/2025 4:31 PM [facility] eGFR 80 >=60 mL/min/1. 73m2 LAB CHEMISTRY METHOD 05/29/2025 4:31 PM EDT [facility] Comment:Calculation based on the Chronic Kidney Disease Epidemiology Collaboration (CKD-EPI) equation refit without adjustment for race. BUN/Creatinine Ratio 10.5 LAB CHEMISTRY METHOD 05/29/2025 4:31 PM EDT [facility] Calcium 9.1 8.5 - 10.5 mg/dL LAB CHEMISTRY METHOD 05/29/2025 4:31 PM EDT [facility] Blood Venous blood specimen / Unknown Venipuncture / Unknown 05/29/2025 3:41 PM EDT 05/29/2025 4:05 PM EDT us Rosy Rhodes MD LAB BLOOD ORDERABLES Final Result [facility] [address] [place] [address], from Last 3 Months Insurance MEDICAID - [...] currently active code status orders. Care Teams Rack Maker Relationship Specialty Start Date End Date Mychal Long MD [address] [place] [address] [place] [address] PCP - General 12/26/11
--- OUTSIDE RECORDS SUMMARY | 2025-08-24 18:39 | XMS_ITS | Encounter Summary ---
Author Organization [employer] Address [address] [place] [address] [address]t [place] [address] Care Team Providers Care Automation Test Developer Name Role Phone Mychal Fields MD Primary Care Provide r Hima Fam Unavailable Unavailable Yaneth Dotson RN Unavailable [phone] Mckenzie Silverio Unavailable [facility] Unavailable [phone] Reason for Visit * Reason Onset Date Comments PRE OP 11/10/2024 Encounter Details Date Type Department Care Team (Late st Contact Info) Description 11/10/2024 Telephone [facility] MEDICINE [address] [place], [place] [phone] Mychal Fields MD [address] [place], [place] [phone] PRE OP Social History Tobacco Use Types [...] needed: No EKG: No Surgeon's name: Dino [place] Facility name: [facility] Surgeon's office number: [phone] Surgeon's office fax number: [phone] Contact name (person you spoke with): Karon [...] documented as of this encounter Care Teams Automation Test Developer Relationship Specialty Start Date End Date Mychal Fields MD [address] [place] [address] PCP - General Internal Medicine 04/30/14 Hima Fam FNP [address] [place] [address] Nurse Practitioner Family Medicine 08/01/23 Yaneth Dotson, ALAN [address] [place] [address] Registered Nurse Family Medicine 02/24/25 07/09/25 Mckenzie Silverio 02/24/25 07/20/[address] [place] [address] Rheumatology 06/30/25 [employer] [facility] 02/13/25 03/29/25 documented as of this encounter
--- OUTSIDE RECORDS SUMMARY | 2025-08-24 18:39 | XMS_ITS | Encounter Summary ---
Author Organization [employer] Address [address] [facility] 7t [place] [address] Care Team Providers Care Deployment Engineer Name Role Phone Mychal Fields MD Primary Care Provide r Hima Fam Unavailable Unavailable [facility] Unavailable [phone] Encounter Details Date Type Department Care Team [...] (08/20/2025 3:43 PM EST) Color Urine Yellow [facility] Appearance Urine Turbid [facility] PH 6.0 5.0 - 9.0 [facility] Glucose Urine UA Negative Negative mg/dL [facility] Urine Blood Negative Negative [facility] Specific [place] - Urine 1.020 1.005 - 1.025 [facility] Urine Protein Trace Neg-Trace mg/dL [facility] Urine Ketones Trace Negative mg/dL [facility] Nitrite Urine Negative Negative [facility] Leukocyte Esterase Urine Negative Negative [facility] RBC Urine 0-2 0 - 2 /HPF [facility] Urine WBC 0-5 0 - 5 /HPF [facility] Urine Squamous Epithelial Cell 0-2 0 - 2 /HPF [facility] CALCIUM OXALATE CRYSTAL, UR Present [facility] Urine Bacteria None Seen None Seen [facility] Hyaline Casts, Urine 3-5 0 - 2 /LPF [facility] 08/20/2025 3:43 PM EST 08/20/2025 5:48 PM EST Generic External Data Provider LAB URINE ORDERAB LES Final Result Performing Organization Address [facility] Co de Phone Number [facility] [address] [place] [phone] * (ABNORMAL) C-reactive Protein (08/20/2025 3:43 PM EST) Pathologist [facility] C Reactive Protein 1.05(H) < or = 0.50 mg/dL [facility] 08/20/2025 3:43 PM EST 08/20/2025 5:52 PM EST Generic External Data Provider LAB BLOOD ORDERAB LES Final Result Performing Organization Address [facility] Co de Phone Number [facility] [address] [place] [phone] * Comprehensive Metabolic Panel (08/20/2025 3:43 PM EST) Pathologist [facility] Sodium 142 135 - 145 mmol/L [facility] Potassium 3.7 3.3 - 5.1 mmol/L [facility] Chloride 108 96 - 108 mmol/L [facility] Carbon Dioxide 26 22 - 29 mmol/L [facility] Anion Gap 12 12 - 20 [facility] Urea Nitrogen (BUN) 13 9 - 16 mg/dL [facility] Creatinine, Serum 0.95 0.5 - 1.4 mg/dL [facility] Estimated Glomerular Filt Rate >60 [facility] Comment:Chronic Kidney Disea se: Estimated GFR < 60 mL/min/[id number] Kidney Disease: Estimated GFR < 15 mL/min/1.73m2 Glucose 91 60 - 115 mg/dL [facility] Calcium 9.2 8.4 - 10.2 mg/dL [facility] Bilirubin, Total 0.2 0.0 - 1.0 mg/dL [facility] Aspartate Amino Transferase 18 5 - 31 U/L [facility] Alanine Aminotransferase 13 0 - 31 U/L [facility] Total Protein 7.9 6.5 - 8.0 g/dL [facility] Albumin Level 4.3 3.5 - 5.0 g/dL [facility] Alkaline Phosphatase 110 39 - 117 U/L [facility] 08/20/2025 3:43 PM EST 08/20/2025 5:52 PM EST Generic External Data Provider LAB BLOOD ORDERAB LES Final Result [facility] [address] [place] [phone] * (ABNORMAL) Protein Creatinine Ratio, Urine (08/20/2025 3:43 PM EST) Creatinine, Urine 402.22 mg/dL [facility] Protein, Total, Random Urine 18(H) <12 mg/dL [facility] Protein/Creati nine Ratio, Ur 0.04 <0.2 [facility] Comment:The spot urine prote in:creatinine ratio may increase to 0.3during normal . 08/20/2025 3:43 PM EST 08/20/2025 5:48 PM EST us Generic External Data Provider LAB URINE ORDERAB LES Final Result [facility] [address] [place], [place] [phone] * (ABNORMAL) CBC auto differential (08/20/2025 3:43 PM EST) White Blood Count 8.1 4.8 - 10.8 X10*3/uL [facility] Red Blood Count 4.52 4.20 - 5.50 X10*6/uL [facility] Hemoglobin 13.0 12.0 - 16.0 g/dl [facility] Hematocrit 40.0 37.0 - 47.0 % [facility] Mean Corpuscular Volume 88.5 80.0 - 98.0 fL [facility] Mean Corpuscular Hemoglobin 28.8 27.0 - 33.0 pg [facility] Mean Corpuscular HGB Conc 32.5 31.0 - 35.0 g/dl [facility] Red Cell Distribution Width 14.3 11.0 - 16.0 % [facility] Platelet Count 298 160 - 400 X10*3/uL [facility] Mean Platelet Volume 10.2 9.4 - 12.3 fL [facility] Neutrophils Percent Auto 49.5 45 - 73 % [facility] Imm Gran Pct Auto 0.2 0.0 - 0.4 % [facility] Lymphocytes Percent Auto 42.2(H) 20 - 40 % [facility] Monocytes Percent Auto 5.2 2 - 11 % [facility] Eosinophils Percent Auto 2.0 0 - 4 % [facility] Basophils Percent Auto 0.9 0 - 2 % [facility] NRBC Pct Auto 0.0 0.0 - 0.2 /100WBC [facility] Neutrophils Absolute Auto 4.0 2.0 - 8.3 x10*3/uL [facility] Imm Gran Abs Auto 0.02 0.00 - 0.03 X10*3/uL [facility] Lymphocytes Absolute Auto 3.4 1.2 - 4.9 X10*3/uL [facility] Monocytes Absolute Auto 0.4 0.1 - 1.2 X10*3/uL [facility] Eosinophils Absolute Auto 0.2 0.0 - 0.4 X10*3/uL [facility] Basophils Absolute Auto 0.1 0.0 - 0.2 X10*3/uL [facility] NRBC Abs Auto 0.000 0.0 - 0.012 X10*3/uL [facility] 08/20/2025 3:43 PM EST 08/20/2025 5:52 PM EST Generic External Data Provider LAB BLOOD ORDERAB LES Final Result Performing Organization Address [facility]/ZIP Co de Phone Number [facility] [address] [place] [phone] * Sed Rate by Modified Bryanna (08/20/2025 3:43 PM EST) Erythrocyte Sedimentation Rate 25 1 - 30 MM/HR [facility] Comment:Patients with polycy themia and many hemoglobin abnormalitiesmay have depressed sed rates whereas patients with anemiamay have elevated sed rates. 08/20/2025 3:43 PM EST 08/20/2025 5:52 PM EST Generic External Data Provider LAB BLOOD ORDERAB LES Final Result Performing Organization Address [facility] Co de Phone Number [facility] [address] [place] [phone] documented in this encounter Visit Diagnoses Not on filedocumented in this encounter Additional Health Concerns Assessment Noted Time PHQ-9 Depression Total Score: 15 025 12:51 PM EDT documented as of this encounter Care Teams Deployment Engineer Relationship Specialty Start Date End Date Mychal Fields MD [address] [place] [address] PCP - General Internal Medicine 04/30/14 Hima Fam FNP [address] [place] [address] Nurse Practitioner Family Medicine 08/01/23 Rheumatology, [address] [place] [address] Rheumatology 06/30/25 documented as of this encounter
--- OUTSIDE RECORDS SUMMARY | 2025-08-24 18:40 | XMS_ITS | Encounter Summary ---
Author Organization [employer] Address [address] [place] [address] 7t [place] [address] Care Team Providers Care Transplant Nurse Practitioner Name Role Phone Mychal Fields MD Primary Care Provide r Hima Fam Unavailable Unavailable Yaneth Dotson RN Unavailable [phone] Mckenzie Silverio Unavailable [facility] Unavailable [phone] Encounter Details Date Type Department Care Team ([facility] st Contact Info) Description 12/04/2022 Telephone [facility] MEDICINE [address] [place], [place] [phone] Mychal Fields MD [address] [place], [place] [phone] Social History Tobacco Use Types Packs/Day Years [...] documented as of this encounter Care Teams Transplant Nurse Practitioner Relationship Specialty Start Date End Date Mychal Fields MD [address] [place] [address] PCP - General Internal Medicine 04/30/14 Hima Fam FNP [address] [place] [address] Nurse Practitioner Family Medicine 08/01/23 Yaneth Dotson, ALAN [address] [place] [address] Registered Nurse Family Medicine 02/24/25 07/09/25 Mckenzie Silverio 02/24/25 07/20/[address] [place] [address] Rheumatology 06/30/25 [employer] [facility] 02/13/25 03/29/25 documented as of this encounter
--- OUTSIDE RECORDS SUMMARY | 2025-08-24 18:40 | XMS_ITS | Encounter Summary ---
Author Organization [employer] Address [address] [facility] 7t [place] [address] Care Team Providers Care Breading Machine Tender Name Role Phone Mychal Fields MD Primary Care Provide r Hima Fam Unavailable Unavailable Yaneth Dotson RN Unavailable [phone] Mckenzie Silverio Unavailable [facility] Unavailable [phone] Encounter Details Date Type Department Care Team (Late st Contact Info) Description 06/11/2023 Orders Only [facility] [address] [place] [address] Veda [place] LPN Social History Tobacco Use [...] documented as of this encounter Care Teams Breading Machine Tender Relationship Specialty Start Date End Date Mychal Fields MD [address] [place] [address] PCP - General Internal Medicine 04/30/14 Hima Fam FNP [address] [place] [address] Nurse Practitioner Family Medicine 08/01/23 Yaneth Dotson, ALAN [address] [place] [address] Registered Nurse Family Medicine 02/24/25 07/09/25 Mckenzie Silverio 02/24/25 07/20/[address] [place] [address] Rheumatology 06/30/25 [facility] [facility] 02/13/25 03/29/25 documented as of this encounter
--- OUTSIDE RECORDS SUMMARY | 2025-08-24 18:40 | XMS_ITS | Encounter Summary ---
Author Organization [employer] Address [address] [place] [address] 7t [place] [address] Care Team Providers Care Ware Finisher Name Role Phone Mychal Fields MD Primary Care Provide r Hima Fam Unavailable Unavailable Yaneth Dotson RN Unavailable [phone] Mckenzie Silverio Unavailable [facility] Unavailable [phone] Reason for Visit * Reason Comments Med Change Request Encounter Details Date Type Department Care Team (Late st Contact Info) Description 10/19/2022 Refill [facility] MEDICINE [address] [place], [place] [phone] Mychal Fields MD [address] [place], [place] [phone] Fibromyalgia Social History Tobacco Use Types Packs/Day [...] documented as of this encounter Care Teams Ware Finisher Relationship Specialty Start Date End Date Mychal Fields MD [address] [place] [address] PCP - General Internal Medicine 04/30/14 Hima Fam FNP [address] [place] [address] Nurse Practitioner Family Medicine 08/01/23 Yaneth Dotson, ALAN [address] [place] [address] Registered Nurse Family Medicine 02/24/25 07/09/25 Mckenzie Silverio 02/24/25 07/20/[address] [place] [address] Rheumatology 06/30/25 [employer] [facility] 02/13/25 03/29/25 documented as of this encounter
--- OUTSIDE RECORDS SUMMARY | 2025-08-24 18:40 | XMS_ITS | Encounter Summary ---
Author Organization [employer] Address [address] [place] [address] 7t [place] [address] Care Team Providers Care Breast Puller Name Role Phone Mychal Fields MD Primary Care Provide r Hima Fam Unavailable Unavailable Yaneth Dotson RN Unavailable [phone] Mckenzie Silverio Unavailable [facility] Unavailable [phone] Reason for Visit * Reason Comments Med Refill Encounter Details Date Type Department Care Team (Late st Contact Info) Description 07/27/2023 Refill [facility]INE [address] [place], [place] [phone] Mychal Fields MD [address] [place], [place] [phone] Social History Tobacco Use Types Packs/Day Years [...] documented as of this encounter Care Teams Breast Puller Relationship Specialty Start Date End Date Mychal Fields MD [address] [place] [address] PCP - General Internal Medicine 04/30/14 Hima Fam FNP [address] [place] [address] Nurse Practitioner Family Medicine 08/01/23 Yaneth Dotson RN [address] [place] [address] Registered Nurse Family Medicine 02/24/25 07/09/25 Mckenzie Silverio 02/24/25 07/20/[address] [place] [address] Rheumatology 06/30/25 [employer] [facility] 02/13/25 03/29/25 documented as of this encounter
--- OUTSIDE RECORDS SUMMARY | 2025-08-24 18:40 | XMS_ITS | Encounter Summary ---
Author Organization [employer] Address [address] [place] [address] 7t [place] [address] Care Team Providers Care Med Asst Name Role Phone Mychal Fields MD Primary Care Provide r Hima Fam Unavailable Unavailable Yaneth Dotson RN Unavailable [phone] Mckenzie Silverio Unavailable [facility] Unavailable [phone] Encounter Details Date Type Department Care Team (Late st Contact Info) Description 04/24/2023 Orders Only [facility] MEDICINE [address] [place] [address] Zena Harley MD [address] [place] [address] Acquired clavicle deformity (Primary Dx) Social History [...] PM EDT Narrative 05/14/2023 4:45 PM EDT [address] [address] XRay Report Signed Patient: Elaine Rodas MR#: [id number] : 1970 Acct:[id number] Age/Sex: 52 / F ADM Date: 05/14/23 Loc: HO.ED Attending Dr: Ordering Physician: Vee Castano NP Date of Service: 05/14/23 Procedure(s): XR chest 2V Accession Number(s): [id number] cc: Mychal Long MD; Vee Castano NP [...] in OV> 05/14/23 1642 DD/ 1624 TD/TT: Probate Clerk: DORITA Procedure Note Donotuseinterpreter, Image - 05/14/[address] [address] XRay Report Signed Patient: Elaine RodasMR#: [id number] : 1970Acct:[id number] Age/Sex: 52 / FADM Date: 05/14/23 Loc: HO.ED Attending Dr: Ordering Physician: Vee Castano NP Date of Service: 05/14/23 Procedure(s): XR chest 2V Accession Number(s): [id number] cc: Mychal Long MD; Vee Castano NP [...] in OV> 05/14/23 1642 DD/ 1624 TD/TT: Probate Clerk: DORITA [facility] External Provider IMG XR PROCEDURES Edited Result - Final * XR Foot 3+ Views Right (05/10/2023 11:44 AM EDT) Anatomical Region Laterality Modality Lower Extremities, Foot Right Radiogra phic Imaging 05/10/2023 11:4 4 AM EDT Narrative 05/10/2023 12:08 PM EDT [address] [address] XRay Report Signed Patient: Elaine Rodas MR#: [id number] : 1970 Acct:[id number] Age/Sex: 52 / F ADM Date: 05/10/23 Loc: HO.CX Attending Dr: Mychal Long MD Ordering Physician: Mychal Long MD Date of Service: 05/10/23 Procedure(s): XR foot RT min 3V Accession Number(s): [id number] cc: Mychal Long MD EXAMINATION: XR FOOT, [...] in OV> 05/10/23 1205 DD/ 1144 TD/TT: Probate Clerk: YULISSA Procedure Note Donotuseinterpreter, Image - 05/10/[address] [address] XRay Report Signed Patient: Elaine RodasMR#: [id number] : 1970Acct:[id number] Age/Sex: 52 / FADM Date: 05/10/23 Loc: HO.HHCX Attending Dr: Mychal Long MD Ordering Physician: Mychal Long MD Date of Service: 05/10/23 Procedure(s): XR foot RT min 3V Accession Number(s): [id number] cc: Mychal Long MD EXAMINATION: XR FOOT, [...] in OV> 05/10/23 1205 DD/ 1144 TD/TT: Probate Clerk: YULISSA us Mychal Morris MD IMG XR PROCEDURES Fin al Result * FL Esophagus Barium Swallow w/Air (05/08/2023 10:19 AM EDT) Anatomical Region Laterality Modality Head, Neck Radiographic Hilda ging 05/08/2023 10:1 9 AM EDT Narrative 05/08/2023 4:35 PM EDT [place] [address] Fluoroscopy Report Signed Patient: Elaine Rodas MR#: [id number] : 1970 Acct:[id number] Age/Sex: 52 / F ADM Date: 05/08/23 Loc: CHAPARRITA Attending Dr: Mychal Long MD Ordering Physician: Mychal Long MD Date of Service: 05/08/23 Procedure(s): FL barium swallow with air Accession Number(s): [id number] cc: Mychal Long MD EXAMINATION: XR FLUOROSCOPY [...] in OV> 05/08/23 1632 DD/ 1019 TD/TT: Probate Clerk: Procedure Note Donotuseinterpreter, Image - 05/08/[address] [address] Fluoroscopy Report Signed Patient: Elaine RodasMR#: [id number] : 1970Acct:[id number] Age/Sex: 52 / FADM Date: 05/08/23 Loc: HOKRISH Attending Dr: Mychal Long MD Ordering Physician: Mychal Long MD Date of Service: 05/08/23 Procedure(s): FL barium swallow with air Accession Number(s): [id number] cc: Mychal Long MD EXAMINATION: XR FLUOROSCOPY [...] in OV> 05/08/23 1632 DD/ 1019 TD/TT: Probate Clerk: Mychal Morris MD IMG FLUOROSCOPY PROCE DURES Final Result documented in this encounter Visit Diagnoses Diagnosis 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 documented in this encounter Additional Health Concerns Assessment Noted Time PHQ-9 Depression Total Score: 8 02/09/20 23 11:04 AM EDT documented as of this encounter Care Teams Med Asst Relationship Specialty Start Date End Date Mychal Fields MD [address] [place] [address] PCP - General Internal Medicine 04/30/14 Hima Fam FNP [address] [place] [address] Nurse Practitioner Family Medicine 08/01/23 Yaneth Dotson, ALAN [address] [place] [address] Registered Nurse Family Medicine 02/24/25 07/09/25 Mckenzie Silverio 02/24/25 07/20/[address] [place] [address] Rheumatology 06/30/25 [facility] 02/13/25 03/29/25 documented as of this encounter
--- OUTSIDE RECORDS SUMMARY | 2025-08-24 18:40 | XMS_ITS | Encounter Summary ---
Author Organization [employer] Address [address] [place] [address] 7t [place] [address] Care Team Providers Care Auto Technician Name Role Phone Mychal Fields MD Primary Care Provide r Hima Fam Unavailable Unavailable Yaneth Dotson RN Unavailable [phone] Mckenzie Silverio Unavailable [facility] Unavailable [phone] Encounter Details Date Type Department Care Team ([facility] st Contact Info) Description 12/05/2022 Orders Only [facility] CHC MED & PEDS [address] [place], [place] [phone] Veda Isabel LPN Social History Tobacco Use [...] documented as of this encounter Care Teams Auto Technician Relationship Specialty Start Date End Date Mychal Fields MD [address] [place] [id number] PCP - General Internal Medicine 04/30/14 Hima Fam FNP [address] [place] [address] Nurse Practitioner Family Medicine 08/01/23 Yaneth Dotson, ALAN [address] [place] [address] Registered Nurse Family Medicine 02/24/25 07/09/25 Mckenzie Silveiro 02/24/25 07/20/[address] [place], [place] [address] Rheumatology 06/30/25 [facility] 02/13/25 03/29/25 documented as of this encounter
--- OUTSIDE RECORDS SUMMARY | 2025-08-24 18:40 | XMS_ITS | Data Portability ---
Author Organization [place] - [facility] Address [address] [address] Care Team Providers Care Hand Stapler Name Role Phone GIACOMO MARX Primary Care Provider GIACOMO MARX Referring Provider Assessment Encounter Date Assessment Date Assessment LastModified by Organization Details LastModified Time 04/25/2024 04/25/2024 53-year-old female presents following DL with biopsy. Pathology was reviewed to be benign. 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 Overall reassurance was provided. follow up as scheduled. [email or web address] Not available 04/28/2024 15:04:21 Plan of Treatment [...] observ ation record ed. [email or web address] [facility] [place] [address], [place], [address], 02/25/2024 09:12:35 03/31/20 24 03/31/2024 US, neck, soft tissu e No observ ation record ed. [facility] (Imaging) [address], [place], [address], 04/11/2024 16:05:21 04/28/20 24 04/10/2024 clini bertha photo * No observ ation record ed. [email or web address] Not Available 17:00:02 04/29/20 24 05/08/2023 imagi ng/di agnos tic resul t No observ ation record ed. [email or web address] Not Available 21:42:28 Result Notes None recorded. Problems Name Problem SNOMED Code Status Onset Date Resolution Date Notes Provider Name and Address Organization Details Recorded Time Mass of neck 218277337 Active 2023 Localized swelling, mass and lump, neck; Note: Date Diagnosed : 11/08/2023 11:56 AM (R22.1) Not Available [facility] 4 02:45:02 Neck swelling 053606090 Active 2023 Localized swelling, mass and lump, neck; Note: Date Diagnosed : 11/08/2023 11:56 AM (R22.1) Not Available [facility] 4 02:45:02 Neck pain 38423143 Active 2023 Cervicalg ia; Note: Date Diagnosed : 11/08/2023 11:56 AM (M54.2) Not Available [facility] 4 02:45:02 Dysphagia 59653278 Active 2023 Dysphagia , unspecifi ed; Note: Date Diagnosed : 11/08/2023 11:56 AM (R13.10) Not Available [facility] 4 02:45:05 Non-toxic uninodula r goiter 372723375 Active 2023 Nontoxic single thyroid nodule; Note: Date Diagnosed : 01/18/2024 11:58 AM (E04.1) Not Available [facility] 4 02:45:01 Thyroid nodule 598289423 Active 2023 MADHU REYES MD 100 [facility],[place] [address], [place], [address] , [place] - [facility] 4 16:36:38 Hypertrop hy of tonsils AND adenoids 84443830 Active 2023 MADHU REYES MD [address] [place] [address],[place] [address], [place], [place], [address] , [place] - [facility] 4 16:36:47 Hypertrop hy of lingual tonsil 721888260 Active 2023 MADHU REYES MD [address] [place] [address],[place] [address], [place], [address] , [place] - [facility] 4 16:36:52 Obstructi ve sleep apnea of adult 64704156435 03 Active 2023 MADHU REYES MD [address] [place] [address],[place] [address], [place], [address] , [place] - [facility] 4 08:48:15 Seasonal allergic rhinitis 541069439 Active 2023 MADHU REYES MD [address] [place] [address],[place] [address], [place], [address] , [facility] - [facility] 4 08:52:06 Allergic rhinitis 88089637 Active 2023 MADHU REYES MD [address] [place] [address],[place] [address], [place], [address] , [facility] - [facility] 4 08:52:17 Non-aller gic rhinitis 49912110913 1 Active 2023 MADHU REYES MD 100 [facility] 100, [facility] [place], [address] , [facility] - [facility] 4 08:52:17 Problem Notes None recorded. Procedures Surgical History Date Name Laterality Status Provider Name and Address Organization Details Recorded Time 4 LARYNGOSCOPY, DIRECT OPERATIVE WITH OPERATING MICROSCOPE OR TELESCOPE WITH BIOPSY (SURG) completed Paulo Faria [place] - [facility] 04/14/2024 09:38:40 4 FFL_RE completed MADHU REYES MD 100 [facility] 100, [place], [address], [facility] - [facility] 03/18/2024 17:33:49 Imaging Results None recorded. Procedure [...] % eye drops active Medicatio n ID: [id number] Br and Name: latanopro st Send Method: E-Prescri bed Subs Allowed: subs OK Specia l Instructi on: PUT 1 DROP INTO BOTH EYES AT BEDTIME M edication GenericNa me: latanopro st Not Available Not Available Not Available terconazol e 0.4 % vaginal cream active Medicatio n ID: [id number] Br and Name: terconazo le Send Method: [...] 8.6 mg tablet active Medicatio n ID: [id number] Br and Name: sakshi Sellers d Method: [...] 20 mg tablet active Medicatio n ID: [id number] Br and Name: dicyclomi ne Send Method: [...] 10 mg tablet active Medicatio n ID: [id number] Br and Name: buspirone Send Method: E-Prescri [...] 100 mg capsule active Medicatio n ID: [id number] Br and Name: gabapenti n Send Method: [...] % topical gel active Medicatio n ID: [id number] Br and Name: diclofena c sodium Se [...] capsule,de layed release active Medicatio n ID: [id number] Br and Name: Creon Marlo d Method: E-Prescri bed Subs Allowed: subs OK Specia l Instructi on: TAKE 1 CAPSULE BY MOUTH 4 TIMES A DAY. ADMINISTE R WITH MEALS AND OR SNACKS Me dicationG enericNam e: Creon Not Available Not Available Not Available blood pressure test kit-large cuff active Medicatio n ID: [id number] Br and Name: blood pressure test kit-large Send Method: E-Prescri bed Subs Allowed: subs OK Specia l Instructi on: USE TO CHECK BLOOD PRESSURE ONCE DAILY IN THE MORNING M edication GenericNa me: blood pressure test kit-large Not Available Not Available Not Available Dexilant 60 mg capsule, delayed release active Medicatio n ID: [id number] Br and Name: Dexilant Send Method: E-Prescri [...] Updated DateTime 03/18/2024 160.02 cm 36.8 kg/m2 19240.21 g Kodi Soni [place] - [facility] 03/18/2024 16:16:00 Date Recorded Body height Body mass index (BMI) Body weight Provider Name and Address Organization Details Last Updated DateTime 04/25/2024 160.02 cm 36.8 kg/m2 54678.21 g Janeth Castro [facility] 04/25/2024 15:19:15 Date Recorded Body height Body mass index (BMI) Body weight Provider Name and Address Organization Details Last Updated DateTime 07/30/2024 160.02 cm 36.8 kg/m2 82240.21 g Marley Santamaria [facility] [...] Note [id number] MADHU REYES MD [facility] [address] [address] 03/18/2024 15:41:26 03/18/2024 17:01:09 Thyroid nodule 865118412 E04.1 I recommend a US guided FNA of the thyroid nodule. She will f/u to review. Hypertroph y of tonsils AND adenoids 60555601 J35.3 hypertroph y of Waldeyer's ring. lingual tonsil biopsy is less morbid to evaluate for lymphoma. see below. Hypertroph y of lingual tonsil 281959547 J35.3 I recommend direct laryngosco py with [...] We will schedule surgery mutually convenient time. [id number] CIERRA GARCIA PA-C [facility] [address] [address] 04/25/2024 15:12:06 04/30/2024 07:57:22 Hypertrophy of lingual tonsil 469287174 J35.3 Hypertroph y of tonsils AND adenoids 04108361 J35.3 Neck pain 01131429 M54.2 [id number] MADHU REYES MD [facility] [address] [address] 07/30/2024 08:28:17 07/30/2024 08:55:15 Hypertrophy of lingual tonsil 018832982 J35.3 Biopsies negative. Gave reassuranc e. Continue observatio n. Deferred laryngosoc py today. Obstructiv e sleep apnea of adult 0694776205 103 G47.33 Agree with starting CPAP which is in process. Thyroid nodule 922671943 E04.1 Recommend repeat thyroid US at [facility] after next visit in 6 months. Seasonal a llergic rhinitis 472872921 J30.2 Exam and history are consistent with allergic rhinitis. We will obtain allergy testing to clarify the extent of allergy with f/u to review. Allergic rhinitis 454593 04 J30.9 Non-allergic rhinitis 31 95786093 01 J31.0 Health Concerns Section Related Observation LastModified by Organization Detai ls LastModified Time None Recorded Concern Status LastModified by Organization Details LastModified Time None Recorded Advance Directives Directive None Recorded Payers Insurance Date Sequence Insurance Name Policy Number Policy Tompkins Covered Member ID Tompkins Member ID Guarantor Name 05/05/2025 1 [place] [facility] Elaine Rodas [id number] Elaine Rodas Notes Date Note Type Note [...] by her other doctors. MADHU REYES MD [address] [place] [address],[address], [address], [place] - [facility] 03/18/2024 17:45:03 04/25/2024 text/html ROS as noted in the HPI 53-year-old female presents following DL with biopsy. She continues to have mild sore throat but no bleeding. Biopsy was done due to hypertrophy of Waldeyer's ring on imaging. MADHU REYES MD [address] [place] [address],[address], [address], [place] - [facility] 04/29/2024 10:01:40 07/30/2024 text/html ROS as noted [...] allergies with marginal benefit. MADHU REYES MD [address] [place] [address],[address], [address], [place] - [facility] 07/30/2024 08:52:32 OBGyn Episode No OBEpisode recorded.
--- OUTSIDE RECORDS SUMMARY | 2025-08-24 18:40 | XMS_ITS | Encounter Summary ---
Author Organization [employer] Address [address] [place] [address] 7t [place] [address] Care Team Providers Care Corrugator Name Role Phone Mychal Fields MD Primary Care Provide r Hima Fam Unavailable Unavailable Yaneth Dotson RN Unavailable [phone] Mckenzie Silverio Unavailable [facility] Unavailable [phone] Reason for Visit * Reason Comments Med Refill Encounter Details Date Type Department Care Team (Late st Contact Info) Description 07/27/2023 Refill [facility] MEDICINE [address] [place], [place] [phone] Mychal Fileds MD [address] [place], [place] [phone] Social History Tobacco Use Types Packs/Day Years [...] documented as of this encounter Care Teams Corrugator Relationship Specialty Start Date End Date Mychal Fields MD [address] [place] [address] PCP - General Internal Medicine 04/30/14 Hima Fam FNP [address] [place] [address] Nurse Practitioner Family Medicine 08/01/23 Yaneth Dotson RN [address] [place] [address] Registered Nurse Family Medicine 02/24/25 07/09/25 Mckenzie Silverio 02/24/25 07/20/[address] [place] [address] Rheumatology 06/30/25 [facility] 02/13/25 03/29/25 documented as of this encounter
--- OUTSIDE RECORDS SUMMARY | 2025-08-24 18:40 | XMS_ITS | Encounter Summary ---
Author Organization [employer] Address [address] [place] [address] 7t [place] [address] Care Team Providers Care Musical String Maker Name Role Phone Mychal Fields MD Primary Care Provide r Hima Fam Unavailable Unavailable Yanteh Dotson RN Unavailable [phone] Mckenzie Silverio Unavailable [facility] Unavailable [phone] Reason for Visit * Reason Onset Date Comments Appointment Request 12/04/2022 Encounter Details Date Type Department Care Team (Late st Contact Info) Description 12/04/2022 Telephone [facility] MEDICINE [address] [place], [place] [phone] Mychal Fields MD [address] [place], [place] [phone] Appointment Request Social History Tobacco Use Types [...] ff/u Bp ) Please contact pt at [phone] * Telephone Encounter - Wesley Collins - 12/04/2022 2:02 PM EDT Tc from pt requesting to r/s appt on 10/19/22 ( ff/u Bp ) Please contact pt at [phone] documented in this encounter Plan of Treatment Not on file documented as of this encounter Visit Diagnoses Not on filedocumented in this encounter Additional Health Concerns Assessment Noted Time PHQ-9 Depression Total Score: 7 10/09/19 4:00 PM EST documented as of this encounter Care Teams Musical String Maker Relationship Specialty Start Date End Date Mychal Fields MD [address] [place] [address] PCP - General Internal Medicine 04/30/14 Hima Fam FNP [address] [place] [address] Nurse Practitioner Family Medicine 08/01/23 Yaneth Dotson, ALAN [address] [place] [address] Registered Nurse Family Medicine 02/24/25 07/09/25 Mckenzie Silverio 02/24/25 07/20/[address] [place] [address] Rheumatology 06/30/25 [facility] 02/13/25 03/29/25 documented as of this encounter
--- OUTSIDE RECORDS SUMMARY | 2025-08-24 18:40 | XMS_ITS | Encounter Summary ---
Author Organization [employer] Address [address] [place] [address] 7t [place] [address] Care Team Providers Care Electric Meter Repairer Name Role Phone Mychal Fields MD Primary Care Provide r Hima Fam Unavailable Unavailable Yaneth Dotson RN Unavailable Mckenzie Silverio Unavailable [facility] Unavailable [phone] Reason for Visit * Reason Comments Med Refill Encounter Details Date Type Department Care Team (Late st Contact Info) Description 10/06/2024 Refill [facility] CHC MED & PEDS [address] [place], [place] [phone] Mychal Fields MD [address] [place], [place] [phone] Anxiety and depression Social History Tobacco Use [...] as of this encounter Care Teams Electric Meter Repairer Relationship Specialty Start Date End Date Mychal Fields MD [address] [place] [address] PCP - General Internal Medicine 04/30/14 Hima Fam FNP [address] [place], [place] Nurse Practitioner Family Medicine 08/01/23 Yaneth Dotson, ALAN [address] [place] [address] Registered Nurse Family Medicine 02/24/25 07/09/25 Mckenzie Silverio 02/24/25 07/20/25 Rheumatology, [address] [place] [address] Rheumatology 06/30/25 [facility] 02/13/25 03/29/25 documented as of this encounter
--- OUTSIDE RECORDS SUMMARY | 2025-08-24 18:40 | XMS_ITS | Encounter Summary ---
Author Organization [employer] Address [address] [place] [address] 7t [place] [address] Care Team Providers Care Editorial Clerk Name Role Phone Mychal Fields MD Primary Care Provide r Hima Fam Unavailable Unavailable Yaneth Dotson RN Unavailable [phone] Mckenzie Silverio Unavailable [facility] Unavailable [phone] Reason for Visit * Reason Comments Med Refill Encounter Details Date Type Department Care Team (Late st Contact Info) Description 10/05/2022 Refill [facility] MED[facility]INE [address] [place] [address] Hima Fam FNP Anxiety state Social History [...] unspecified documented in this encounter Care Teams Editorial Clerk Relationship Specialty Start Date End Date Mychal Fields MD [address] [place] [address] PCP - General Internal Medicine 04/30/14 Hima Fam FNP [address] [place] [address] Nurse Practitioner Family Medicine 08/01/23 Yaneth Dotson, ALAN [address] [place] [address] Registered Nurse Family Medicine 02/24/25 07/09/25 Mckenzie Silverio 02/24/25 07/20/[address] [place] [address] Rheumatology 06/30/25 [facility] 02/13/25 03/29/25 documented as of this encounter
--- OUTSIDE RECORDS SUMMARY | 2025-08-24 18:41 | XMS_ITS | Clinical Summary ---
Author Organization [employer] Address [address] [facility] [address] [place] [address] Care Team Providers Care Surveying Technician Name Role Phone Mychal Fields MD Primary Care Provide r Hima Fam Unavailable Unavailable [facility] Unavailable [phone] Allergies Active Allergy Reactions Criticality Noted Date [...] every 30 (thirty) days. 024 Active rizatriptan PET CARE ASSOCIATE (Maxalt-PET CARE ASSOCIATE) 5 MG disintegrating tablet 024 Active varenicline [...] Hematology by Pulmonology due to marked eosinophilia. Supervisor Metal Cans ordered a work up to rule out Vasculitis. C-ANCA was negative but Positive Proteinase 3 antibody. Significance? Pt has a Wire Inserter : Brigid West MD at [facility]. I will ask our team RNS to [...] (06/30/2025 9:44 AM EDT): Pt evaluated at [facility] 05/29/2025 As part of her ER evaluation [...] was evaluated by Dr. Wynn at our [facility] who recommended to check D dimer [...] trying to get her to [facility] before the lab and xray close but [...] reports she has completed thyroid ultrasound at [facility], notes not available at this [...] EDT): Pelvis exam indicative of this Plan: MARKETING BUDGET ANALYST referral Analy vaginitis 06/26/2023 Assessment & Plan [...] 1:37 PM EDT): Pt seen by Dr Harlye She suspected costochondritis, ordered x-ray of the [...] significant eosinophils possibly related to hypereosinophilic conditions. Supervisor Metal Cans referred to hematology for further evaluation. They [...] with no good results, cannot tolerate NSAIDS [facility] neurology is not [...] will also be referring to Neurology at [facility] Assessment & Plan [...] who retired Pt has a therapist at [facility] I recommended she speak with therapist about referral to agency psychiatrist, unfortunatelly they do not have any availability In the meantime I will manage medications if necessary. Plan: Continue: clonazePAM (KlonoPIN) 1 MG tablet hydrOXYzine HCl (Atarax) 25 MG tablet zolpidem (Ambien) 10 MG tablet Will refer to our clinical services assistant Assessment & Plan (05/15/2024 1:34 PM EDT): Patient has tried many different antidepressants and mood stabilizers but she was intolerant of everything. She is doing reasonably well. Her panic attacks respond to Hydroxyzine 25 mg prn. She takes Clonazepam 1 mg TID prn. And Ambien 10 mg at bedtime. This was prescribed by Hima Fam who recently retired Pt has a therapist at [facility] I recommended she speak with [...] necessary. For any issues or concerns, contact [facility]. All her questions were answered and I [...] used to be under the care of internet network specialist who had been prescribing Baclofen Assessment [...] used to be under the care of internet network specialist who had been prescribing tramadol 100mg [...] without neural impingement. Pt was seen at [facility] 04/2023 and has a follow up [...] without neural impingement. Pt was seen at [facility] recently has a follow up recommended [...] neural impingement. Pt will be referred to [facility] Smoker 02/21/2012 Assessment & Plan (04/03/2023 [...] Data 08/18/2025 2:15 PM EST Office Visit [facility] [place] [address] Mychal Fields MD Essential hypertension (Primary Dx); Low vitamin D level; Anxiety and depression; Class 2 severe obesity due to excess calories with serious comorbidity and body mass index (BMI) of 36.0 to 36.9 in adult; Dietary counseling; Exercise counseling; Encounter for immunization 08/18/2025 Travel 08/13/2025 Telephone [facility] [address] Mychal Fields MD CHART PREP 08/07/2025 Refill [facility] [place] [address] Mychal Fields MD 07/27/2025 Telephone [facility] [place] [address] Mychal Fields MD Call Back Request 07/24/2025 2:00 PM EST Office Visit [facility] [address] Manjeet Deluca MD Androgenic alopecia (Primary Dx); 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 Travel 07/22/2025 Orders Only [facility] External Provider, [facility] 07/20/2025 Patient Outreach [facility] [place] [address] Mychal Fields MD Care Coordination (SDOH f/u) 07/16/2025 Telephone [facility] Jose [facility] [place] [address] Mychal Fields MD Med Refill 07/14/2025 Refill [facility] Jose [facility] [place] [address] Bette Wynn MD Anxiety and depression 07/11/2025 Refill [facility] [address] [place] [address] Mychal Fields MD Anxiety and depression 07/09/2025 Patient Outreach [address] [address] Mychal Fields MD Care Management (C3CM- f/u call lvm) 07/03/2025 Patient Outreach [address] [address] Mychal Fields MD Care Coordination (PT1) 07/02/[address] [address] Mychal Fields MD 06/30/2025 9:15 AM EDT Office Visit [address] [address] Mychal Fields MD Dizzy spells (Primary Dx); Analy vaginitis; Irritable bowel syndrome with both constipation and diarrhea; Restrictive lung disease; Anemia due to other cause, not classified; Essential hypertension; Positive MAURICE (antinuclear antibody); Pneumonia of both lower lobes due to infectious organism 06/30/[address] [address] Christie Contreras RN Interoffice Coordination 06/30/2025 Travel 06/29/2025 Patient Outreach [address] [address] Mychal Fields MD Care Coordination (Triage) 06/26/2025 Patient Outreach [address] [address] Mychal Fields MD Care Coordination (PT1) 06/26/2025 Patient Outreach [address] [address] Mychal Fields MD Care Management (C3CM- f/u call) 06/15/2025 Patient Outreach [address] [address] Mychal Fields MD Care Management (C3CM- f/u call lvm) 06/15/2025 Patient Outreach [facility] [address] [place] [address] Mychal Fields MD Care Coordination (PT1 f/u) 06/11/2025 Refill [facility] [address] [place] [address] Mychal Fields MD Anxiety and depression 06/10/2025 Patient Outreach [facility] [address] [place] [address] Mychal Fields MD Care Coordination (SDOH f/u) 06/09/2025 Refill [facility] [address] [place] [address] Noemy Frye RN Anxiety and depression 06/09/2025 Telephone [facility] [address] [place] [phone] Mychal Fields MD Med Refill 06/09/2025 Patient Outreach [facility] [address] [place] [address] Mychal Fields MD Care Management (C3CM- f/u call lvm) 06/08/2025 Orders Only GENERIC EXTERNAL DATA DEPARTMENT Provider, Generic External Data 06/05/2025 Telephone [facility] [address] [place] [phone] Mychal Fields MD 06/05/2025 Telephone [facility] [address] [place] [phone] Mychal Fields MD august06/01/2025 Patient Outreach [facility] [address] [place] [address] Mychal Fields MD 05/28/2025 Patient Outreach [facility] [address] [place] [address] Mychal Fields MD Care Management (C3CM- f/u call) 05/27/2025 Patient Outreach [facility] [address] [place] [phone] Mychal Fields MD Care Coordination (SDOH f/u ) 05/27/2025 Patient Outreach [facility] [address] [place] [phone] Mychal Fields MD Care Management (C3- f/u [...] (4 - season) 2025 06/20/2022, 06/20/2022, 05/17/2021 Depression Monitoring 10/17/2025 04/16/2025, 025 Alcohol/Substance Use Screening 12/23/2025 12/23/2024 Disability Screening 12/23/2025 12/23/2024 SDOH Screening 03/04/2026 03/04/2025 Tobacco Screening 08/18/2026 08/18/2025 Mammogram 10/29/2026 10/29/2024, 09/10, 12/17/2018 Colonoscopy 08/30/2027 08/30/2022, 08/30/2022 Colorectal Cancer Screening 08/30/2027 Cervical Cancer Screening 08/23/2028 HPV/Cotest 08/23/2028 08/23/2023, 04/06/2021 Pap Smear 08/23/2028 08/23/2023, 04/06/2021 Lipid Panel 08/21/2030 08/21/2025, 06/17/2020 DTaP/Tdap/Td Vaccines (2 - Td or Tdap) [...] Procedure Name Priority Date/Time Associated Diagnosis Comments LIPID PANEL, STANDARD Routine 08/21/2025 11:38 AM EST Essential hypertension URINALYSIS, COMPLETE (INCLUDES MACRO AND MICRO) Routine [...] EDT T-SPOT(R).TB Routine 06/08/2025 2:31 PM EDT HEPATITIS C ANTIBODY Routine 11/05/2024 3:21 PM EST HIV 1/2 ANTIGEN/ANTIBODY, FOURTH GENERATION W/RFL Routine 11/05/2024 3:21 PM EST BI MAMMOGRAM SCREENING TOMOSYNTHESIS BILATERAL Routine 10/29/2024 12:58 PM EST HPV MRNA E6/E7 REFLEX TO HPV 16, 18/45 Routine 08/23/2023 2:22 PM EST PAP SMEAR Routine 08/23/2023 2:22 PM EST Postmenopausal bleeding Cervical cancer screening HM COLONOSCOPY Routine 08/30/2022 from Last 3 Months or Most Recently Relevant to Health Maintenance Results * (ABNORMAL) Lipid Panel, Standard (08/21/2025 11:38 AM EST) Triglycerides 95 <150 mg/dL [facility] Comment:Desirable Triglyceri de: less than 150 mg/dLBorderline High Triglyceride 150-199 mg/dLHigh Triglyceride: 200-499 mg/dLVery High Triglyceride: greater than or equal to 5OO mg/dL Cholesterol 198 <200 mg/dL [facility] Comment:Desirable Cholestero l: less than 200 mg/dLBorderline High Cholesterol: 200-239 mg/dLHigh Cholesterol: greater than 239 mg/dL LDL Cholesterol Calculated 124(H) <100 mg/dL [facility] Comment:Desirable LDL: less than 100 mg/dLNear Optimal/Above Optimal LDL: 110- 129 mg/dLBorderline High LDL: 130-159 mg/dLHigh LDL: 160-189 mg/dLVery High LDL: greater than or equal to 190 mg/dL HDL Cholesterol 55 >40 mg/dL [facility] Comment:Desirable HDL: great er than 40 mg/dL Note: This HDL assay may give artificially low results in patients with liver disease. Blood Venous blood specimen / Unknown 08/21/2025 11:38 AM EST 08/21/2025 11:38 AM EST us Mychal Morris MD LAB BLOOD ORDERABLES Final Result [facility] [address] [place] [address] [phone] * (ABNORMAL) Protein Creatinine Ratio, Urine (08/20/2025 3:43 PM EST) Creatinine, Urine 402.22 mg/dL [facility] Protein, Total, Random Urine 18(H) <12 mg/dL [facility] Protein/Creati nine Ratio, Ur 0.04 <0.2 [facility] Comment:The spot urine prote in:creatinine ratio may increase to 0.3during normal . 08/20/2025 3:43 PM EST 08/20/2025 5:48 PM EST us Generic External Data Provider LAB URINE ORDERAB LES Final Result [facility] [address] [place] [address] [phone] * (ABNORMAL) CBC auto differential (08/20/2025 3:43 PM EST) Only the most recent of2 resultswithin the time period is included. White Blood Count 8.1 4.8 - 10.8 X10*3/uL [facility] Red Blood Count 4.52 4.20 - 5.50 X10*6/uL [facility] Hemoglobin 13.0 12.0 - 16.0 g/dl [facility] Hematocrit 40.0 37.0 - 47.0 % [facility] Mean Corpuscular Volume 88.5 80.0 - 98.0 fL [facility] Mean Corpuscular Hemoglobin 28.8 27.0 - 33.0 pg [facility] Mean Corpuscular HGB Conc 32.5 31.0 - 35.0 g/dl [facility] Red Cell Distribution Width 14.3 11.0 - 16.0 % [facility] Platelet Count 298 160 - 400 X10*3/uL [facility] Mean Platelet Volume 10.2 9.4 - 12.3 fL [facility] Neutrophils Percent Auto 49.5 45 - 73 % [facility] Imm Gran Pct Auto 0.2 0.0 - 0.4 % [facility] Lymphocytes Percent Auto 42.2(H) 20 - 40 % [facility] Monocytes Percent Auto 5.2 2 - 11 % [facility] Eosinophils Percent Auto 2.0 0 - 4 % [facility] Basophils Percent Auto 0.9 0 - 2 % [facility] NRBC Pct Auto 0.0 0.0 - 0.2 /100WBC [facility] Neutrophils Absolute Auto 4.0 2.0 - 8.3 x10*3/uL [facility] Imm Gran Abs Auto 0.02 0.00 - 0.03 X10*3/uL [facility] Lymphocytes Absolute Auto 3.4 1.2 - 4.9 X10*3/uL [facility] Monocytes Absolute Auto 0.4 0.1 - 1.2 X10*3/uL [facility] Eosinophils Absolute Auto 0.2 0.0 - 0.4 X10*3/uL [facility] Basophils Absolute Auto 0.1 0.0 - 0.2 X10*3/uL [facility] NRBC Abs Auto 0.000 0.0 - 0.012 X10*3/uL [facility] 08/20/2025 3:43 PM EST 08/20/2025 5:52 PM EST us Generic External Data Provider LAB BLOOD ORDERAB LES Final Result [facility] [address] [place] [address] [phone] * Urinalysis Complete (08/20/2025 3:43 PM EST) Color Urine Yellow [facility] Appearance Urine Turbid [facility] PH 6.0 5.0 - 9.0 [facility] Glucose Urine UA Negative Negative mg/dL [facility] Urine Blood Negative Negative [facility] Specific [place] - Urine 1.020 1.005 - 1.025 [facility] Urine Protein Trace Neg-Trace mg/dL [facility] Urine Ketones Trace Negative mg/dL [facility] Nitrite Urine Negative Negative [facility] Leukocyte Esterase Urine Negative Negative [facility] RBC Urine 0-2 0 - 2 /HPF [facility] Urine WBC 0-5 0 - 5 /HPF [facility] Urine Squamous Epithelial Cell 0-2 0 - 2 /HPF [facility] CALCIUM OXALATE CRYSTAL, UR Present [facility] Urine Bacteria None Seen None Seen [facility] Hyaline Casts, Urine 3-5 0 - 2 /LPF [facility] 08/20/2025 3:43 PM EST 08/20/2025 5:48 PM EST Generic External Data Provider LAB URINE ORDERAB LES Final Result Performing Organization Address [facility] Co de Phone Number [facility] [address] [place] [phone] * Sed Rate by Modified Westergren (08/20/2025 3:43 PM EST) Erythrocyte Sedimentation Rate 25 1 - 30 MM/HR [facility] Comment:Patients with polycy themia and many hemoglobin abnormalitiesmay have depressed sed rates whereas patients with anemiamay have elevated sed rates. 08/20/2025 3:43 PM EST 08/20/2025 5:52 PM EST Generic External Data Provider LAB BLOOD ORDERAB LES Final Result Performing Organization Address [facility] Co de Phone Number [facility] [address] [place] [phone] * (ABNORMAL) C-reactive Protein (08/20/2025 3:43 PM EST) C Reactive Protein 1.05(H) < or = 0.50 mg/dL [facility] 08/20/2025 3:43 PM EST 08/20/2025 5:52 PM EST us Generic External Data Provider LAB BLOOD ORDERAB LES Final Result Performing Organization Address City/[facility]/ZIP Co de Phone Number [facility] [address] [place] [address] [phone] * Comprehensive Metabolic Panel (08/20/2025 3:43 PM EST) Sodium 142 135 - 145 mmol/L [facility] Potassium 3.7 3.3 - 5.1 mmol/L [facility] Chloride 108 96 - 108 mmol/L [facility] Carbon Dioxide 26 22 - 29 mmol/L [facility] Anion Gap 12 12 - 20 [facility] Urea Nitrogen (BUN) 13 9 - 16 mg/dL [facility] Creatinine, Serum 0.95 0.5 - 1.4 mg/dL [facility] Estimated Glomerular Filt Rate >60 [facility] Comment:Chronic Kidney Disea se: Estimated GFR < 60 mL/min/1.23q6Nghoto Kidney Disease: Estimated GFR < 15 mL/min/1.73m2 Glucose 91 60 - 115 mg/dL [facility] Calcium 9.2 8.4 - 10.2 mg/dL [facility] Bilirubin, Total 0.2 0.0 - 1.0 mg/dL [facility] Aspartate Amino Transferase 18 5 - 31 U/L [facility] Alanine Aminotransferase 13 0 - 31 U/L [facility] Total Protein 7.9 6.5 - 8.0 g/dL [facility] Albumin Level 4.3 3.5 - 5.0 g/dL [facility] Alkaline Phosphatase 110 39 - 117 U/L [facility] 08/20/2025 3:43 PM EST 08/20/2025 5:52 PM EST us Generic External Data Provider LAB BLOOD ORDERAB LES Final Result Performing Organization Address City/[facility]/ZIP Co de Phone Number [facility] [address] [place] [address] [phone] * NM Gastric Emptying Solid (07/22/2025 8:49 AM EST) Anatomical Region Laterality Modality Body Nuclear Medicine 07/22/2025 8:49 AM EST Narrative 07/22/2025 12:20 PM EST [address] [address] Nuclear Medicine Report Signed Patient: Elaine Rodas MR#: [id number] : 1970 Acct:[id number] Age/Sex: 54 / F ADM Date: 07/22/25 Loc: [facility] Attending Dr: Bhavana RUSS Ordering Physician: Bhavana Vazquez Date of Service: 07/22/25 Procedure(s): NM gastric emptying study Accession Number(s): [id number] cc: Bhavana Vazquez; Mychal Long MD Reason [...] by: Jose Mcnamara MD 07/22/2025 12:17 PM [facility] Dictated By: Jose Mcnamara MD Signed By: <Electronically signed by Jose Mcnamara MD in OV> 07/22/25 1217 DD/ 0849 TD/TT: 07/22/25 1200 Model Dresser: Procedure Note Donotuseinterpreter, Image - 07/22/2025 [place] [address] Nuclear Medicine Report Signed Patient: Sebas Rodas#: [id number] : 1970Acct:[id number] Age/Sex: 54 / FADM Date: 07/22/25 Loc: [facility] Attending Dr: Bhavana RUSS Ordering Physician: Bhavana Vazquez Date of Service: 07/22/25 Procedure(s): NM gastric emptying study Accession Number(s): [id number] cc: Bhavana Vazquez; Mychal Long MD Reason [...] grading per JNMT Consensus Recommendations in 2008 (https://tech.snmjournals.org/content/36//44) Grade 1 (mild retention): 11-20% at 4h Grade 2 (moderate retention): 21-35% at 4h Grade 3 (severe retention): 36-50% at 4h Grade 4 (very severe retention): >50% retention at 4h Electronically signed by: Jose Mcnamara MD 07/22/2025 12:17 PM [facility] Dictated By: Jose Mcnamara MD Signed By: <Electronically signed by Jose Mcnamara MD in OV> 07/22/25 1217 DD/ 0849 TD/TT: 07/22/25 1200 Model Dresser: us [facility] External Provider IMG NM PROCEDURES Final Result * XR Chest 2 Views (06/30/2025 10:11 AM EDT) Anatomical Region Laterality Modality Chest Radiographic Hilda ging 06/30/2025 10:1 1 AM EDT Narrative 06/30/2025 10:18 AM EDT [address] [address] XRay Report Signed Patient: Elaine Rodas MR#: [id number] : 1970 Acct:[id number] Age/Sex: 54 / F ADM Date: 06/30/25 Loc: [facility] Attending Dr: Mychal Long MD Ordering Physician: Mychal Long MD Date of Service: 06/30/25 Procedure(s): XR chest 2V Accession Number(s): [id number] cc: Mychal Long MD Reason for Exam: [...] 06/30/25 1015 DD/ 1011 TD/TT: 06/30/25 1011 Model Dresser: DORITA Procedure Note Donotuseinterpreter, Image - 06/30/[address] [address] XRay Report Signed Patient: Elaine RodasMR#: [id number] : 1970Acct:[id number] Age/Sex: 54 / FADM Date: 06/30/25 [facility]: Mychal Long MD Ordering Physician: Mychal Long MD Date of Service: 06/30/25 Procedure(s): XR chest 2V Accession Number(s): [id number] cc: Mychal Long MD Reason for Exam: [...] 06/30/25 1015 DD/ 1011 TD/TT: 06/30/25 1011 Model Dresser: DORITA us Mychal Morris MD IMG XR PROCEDURES Jhonatan mike Result - Final * (ABNORMAL) ANCA Vasculitides (06/08/2025 2:31 PM EDT) Myeloperoxidase Antibody <1.0 [facility] Comment:Value Interpretation ----- <1.0 No Antibody Detected > or = 1.0 Antibody DetectedAutoantibodies to myeloperoxidase (MPO) are commonlyassociated with the following small-vesselvasculitides: microscopic polyangiitis,polyarteritis nodosa, Churg-Faheem syndrome,necrotizing and crescentic glomerulonephritis andoccasionally granulomatosis with polyangiitis(GPA, Jensen's). The perinuclear IFA pattern,(p-ANCA) is based largely on autoantibody tomyeloperoxidase which serves as the primary antigen.These autoantibodies are present in active disease. Proteinase-3 Antibody 13.9(A) [facility] Comment:Since patient sera m ay [...] present in active disease.THIS TEST WAS PERFORMED AT:[facility] [place] [id number] PRESSLEY MD 06/08/2025 2:31 PM EDT 06/08/2025 2:31 PM EDT Generic External Data Provider LAB BLOOD ORDERAB LES Final Result [facility] [address] [place] [phone] * T-SPOT??.TB (06/08/2025 2:31 PM EDT) T Spot TB Negative Negative [facility] Comment:A negative test resu lt [...] as aquantitative test. TS PANEL A 0 [facility] TS PANEL B 0 [facility] Negative Control Passed [facility] Positive Control Passed [facility] Comment:For additional infor lynda, please refer tohttp://education.Concurrent Thinking/faq/OVP048(This link is being provided for informational/educational purposes only.)THIS TEST WAS PERFORMED AT:[employer] [id number] [place] [id number] CALVILLO MD,PHD 06/08/2025 2:31 PM EDT 06/08/2025 2:31 PM EDT us Generic External Data Provider LAB BLOOD ORDERAB LES Final Result [facility] [address] [place] [phone] * Hypersensitivity Pneumonitis Screen (06/08/2025 2:31 PM EDT) Aspergillus fumigatus Ab NEGATIVE NEGATIVE [facility] Micropolyspora Faeni NEGATIVE NEGATIVE [facility] [place] Serum Abs NEGATIVE NEGATIVE [facility] Thermoactinomyces candidus NEGATIVE NEGATIVE [facility] Thermoactinomyces vulgaris Ab NEGATIVE NEGATIVE [facility] Saccharomonospora viridis Ab NEGATIVE NEGATIVE [facility] Comment:This test was develo ped and its analytical performancecharacteristics have been determined by [employer].It has not been cleared or approved by the FDA. This assayhas been validated pursuant to the CLIA regulations and isused for clinical purposes.THIS TEST WAS PERFORMED AT:[employer] [id number] SYDNEE LANDON [id number] MORGAN MD,PHD,GIULIA 06/08/2025 2:31 PM EDT 06/08/2025 2:31 PM EDT us Generic External Data Provider LAB BLOOD ORDERAB LES Final Result Performing Organization Address [facility] Co de Phone Number [facility] [address] [place] [phone] * Hepatitis C Ab (11/05/2024 3:21 PM EST) Hepatitis C Antibody Nonreactive Nonreactive [facility] Comment:Antibodies to HCV no t detected; does not exclude early acuteHCV infection. 11/05/2024 3:21 PM EST 11/05/2024 3:21 PM EST Generic External Data Provider LAB BLOOD ORDERAB LES Final Result Performing Organization Address [facility] de Phone Number [facility] [address] [place] [phone] * HIV-1/2 Antigen and Antibodies, Fourth Generation, with Reflexes (11/05/2024 3:21 PM EST) Pathologist [facility] HIV AB/AG Nonreactive Nonreactive [facility] Comment:HIV-1 p24 Ag and/or HIV-1/HIV-2 Ab not detected.A test result that is nonreactive does not exclude thepossibility of exposure to or infection with HIV-1 and/orHIV-2. Nonreactive results in this assay for individualswith prior exposure to HIV-1 and/or HIV-2 may be due toantigen and antibody levels that are below the limit ofdetection of this assay.The [employer] HIV Ag/Ab Combo assay result andsupplemental assay results should be interpreted inconjunction with the patient's clinical presentation,history and other laboratory results. If the results areinconsistent with clinical evidence, additional testing issuggested to confirm the result. 11/05/2024 3:21 PM EST 11/05/2024 3:21 PM EST us Generic External Data Provider LAB BLOOD ORDERAB LES Final Result Performing Organization Address [facility] Co de Phone Number [facility] [address] [place] [phone] * BI Mammogram Screening Tomosynthesis Bilateral (10/29/2024 12:58 PM EST) Anatomical Region Laterality Modality Breast Bilateral Mammography 10/29/2024 12:5 8 PM EST Narrative 11/04/2024 12:41 PM EST [facility] [place] [address] Mammography Report Signed Patient: Elaine Rodas MR#: [id number] : 1970 Acct:[id number] Age/Sex: 53 / F ADM Date: 10/29/24 Loc: HO.MAMMO Attending Dr: Mychal Long MD Ordering Physician: Syed Coreas MD Results: 1Negativ e Date of Service: 10/29/24 Follow Up: 1 Year From Orig inal Mammogram Procedure(s): MM tomosynthesis screening BI Accession Number(s): [id number] cc: Mychal Long MD; Syed Coreas MD [...] 11/04/24 1238 DD/ 1258 TD/TT: 10/29/24 1315 Model Dresser: Procedure Note Donotuseinterpreter, Image - 11/04/2024 [facility] [address] [place] [address] Mammography Report Signed Patient: Elaine RodasMR#: [id number] : 1970Acct:[id number] Age/Sex: 53 / FADM Date: 10/29/24 Loc: HO.MAMMO Attending Dr: Mychal Long MD Ordering Physician: Syed Coreas MDResults: 1Negativ e Date of Service: 10/29/24Follow Up: 1 Year From Orig inal Mammogram Procedure(s): MM tomosynthesis screening BI Accession Number(s): [id number] cc: Mychal Long MD; Syed Coreas MD [...] by: Shayy Connor DO 11/04/2024 12:38 PM [facility] Dictated By: Shayy Connor DO Signed By: <Electronically signed by Shayy Connor DO in OV> 11/04/24 1238 DD/ 1258 TD/TT: 10/29/24 1315 Model Dresser: [facility] External Provider IMG BI PROCEDURES Final Result * HPV mRNA E6/E7 w/Reflex to HPV Genotypes 16, 18/45 (08/23/2023 2:22 PM EST) HPV nRNA E6/E7 Not Detected Not Detected [facility] Comment:Methodology: Transcr iption-Mediated AmplificationThis assay detects E6/E7 viral messenger RNA (mRNA) from 14high-risk HPV types (16,18,31,33,35,39,45,51,52,56,58,59,66,68).Cervical sources are required for HPV testing.If a vaginal source from a patient who has had atotal hysterectomy with removal of cervix wassubmitted, please contact the testing laboratoryfor alternative testing options.For additional information, please refer [email or web address] Thinking/faq/DLL739k5(This link if provided for information/educational purposes only.)THIS TEST WAS PERFORMED AT:[facility] [place] [phone] PRESSLEY MD HPV mRNA E6/E7 [facility] HPV 16 RNA [facility] HPV 18/[address] [facility] 08/23/2023 2:22 PM EST 08/24/2023 9:35 AM EST Cecily STANTON [facility] CYTOLOGY ORDERABLES F inal Result [facility] [address] [place] [address] [phone] * Pap Smear (08/23/2023 2:22 PM EST) Swab Cervix uteri structure / Unknown 08/23/2023 2:22 PM EST 08/24/2023 9:35 AM EST Narrative [facility] - 09/04/2023 1:23 PM EST ----- ------- Name: Elaine Rodas Age/Sex: 52/F : 1970 Unit#: [id number] Attend Dr: Re08/23/23 Status: PRE REF Location: [facility] Disch: ----- ------- SPEC : [id number] RECD: 08/24/23 STATUS: RICHARD OLIVE NUM: [id number] CHAPIN: 08/23/[address] [facility] [address]: CECILY SCHWAB [facility] ENTERED: 08/24/23 SP TYPE: Pap Smr [facility] DR: ORDERED: Pap Smear Interpretation Satisfactory for evaluation. No endocervical cells seen. Cytolysis noted. Negative for intraepithelial lesion or malignancy. HPV mRNA E6/E7: NOT DETECTED This assay detects E6/E7 viral messenger RNA (mRNA) from 14 high-risk HPV types (16, 18, 31, 33, 35, 39, 45, 51, 52, 56, 58, 59, 66, 68) HPV testing performed by [facility], [place], [place]. See reference laboratory portion of the EMR for entire report. Clinical Information LMP: Postmenopausal Previous PAP test: Unknown date/findings Other history: Abnormal bleeding Material Received ThinPrep-Cervical ----- ------- Signed (signature on file) NATHAN Medrano ([facility] 09/04/23 1323 ----- ------- END OF REPORT Cecily [facility] CYTOLOGY ORDERABLES F inal Result [facility] [address] [place] [address] [phone] * Colonoscopy (08/30/2022) Pathologist [facility] Colonoscopy Normal Normal Historical Provider HEALTH MAINTENANCE Final Result from Last 3 Months or Most Recently Relevant to Health Maintenance Insurance [facility] C3 Care Teams Surveying Technician Relationship Specialty Start Date End Date Mychal Fields MD [address] [place] [address] PCP - General Internal Medicine 04/30/14 Hima Fam FNP [address] [place] [address] Nurse Practitioner Family Medicine 08/01/[address] [place] [address] Rheumatology 06/30/25
--- OUTSIDE RECORDS SUMMARY | 2025-08-24 18:41 | XMS_ITS | Encounter Summary ---
Author Organization [employer] Address [address] [place] [address] [address] [place] [address] Care Team Providers Care Coupon Clerk Name Role Phone Mychal Fields MD Primary Care Provide r Hima Fam Unavailable Unavailable Mckenzie Silverio Unavailable [facility] Unavailable [phone] Reason for Visit * Reason Onset Date Comments Med Refill 07/16/2025 Encounter Details Date Type Department Care Team ([facility] st Contact Info) Description 07/16/2025 Telephone [facility] MEDICINE [address] [place], [place] [phone] Mychal Fields MD [address] [place], [place] [phone] Med Refill Social History Tobacco Use Types [...] 10 MG tablet To be sent to: [id number] [address] documented in this encounter Plan of Treatment Not on file documented as of this encounter Visit Diagnoses Not on filedocumented in this encounter Additional Health Concerns Assessment Noted Time PHQ-9 Depression Total Score: 15 025 12:51 PM EDT documented as of this encounter Care Teams Coupon Clerk Relationship Specialty Start Date End Date Mychal Fields MD [address] [place] [address] PCP - General Internal Medicine 04/30/14 Hima Fam FNP [address] [place] [address] Nurse Practitioner Family Medicine 08/01/23 Mckenzie Silverio 02/24/25 07/20/[address] [place] [address] Rheumatology 06/30/25 documented as of this encounter
== END 2025-08-24 13:29 | disposition home or self-care (01) ==
LOC: HO.HPS 12:53
PROVIDERS: PCP Internal Medicine; Visit Provider Nurse Practitioner Family
DX: J90 Pleural effusion, not elsewhere classified (principal); J45.909 Unspecified asthma, uncomplicated; R06.00 Dyspnea, unspecified; D72.10 Eosinophilia, unspecified
CPT/HCPCS: 99214

== ENCOUNTER → 2025-08-24 12:53 | Outpatient (BNVA) | payer MEDICAID, SELFPAY | PROVIDERS: PCP Internal Medicine; Visit Provider Nurse Practitioner Family | DX: J45.909 Unspecified asthma, uncomplicated (principal); D72.10 Eosinophilia, unspecified; J90 Pleural effusion, not elsewhere classified; R06.00 Dyspnea, unspecified; F17.210 Nicotine dependence, cigarettes, uncomplicated; Z79.899 Other long term (current) drug therapy | CPT/HCPCS: 99212 ==

== ENCOUNTER 2025-08-28 13:02 | Outpatient (AMB) | payer MEDICAID, SELFPAY ==
--- NOTE | 2025-08-28 13:30 | A.OFFVIS_ITS ---
Vital Signs 08/28/25 13:36 Height 5 ft 7 in Weight 212 lb 4.882 oz BMI 33.2 BP 138/82 Blood Pressure Location Lt brachial Position Sitting Pulse 75 Pulse Source Pulse Oximeter Pulse Oximetry (%) 98 Oxygen Delivery Method Room Air Intake Visit Reasons: BL knee pain/ injection Intake Note: Patient presents today for BL knee pain/ injection follow up and test results. Steel Erector Required: No Steel Erector Services: Steel Erector Offered & Declined Information Interpreted: non-clinical & clinical Accompanied by: Self / Same As Patient Allergies metronidazole Allergy (Severe, Verified 08/28/25 13:36) vomiting Penicillins Allergy (Mild, Verified 08/28/25 13:36) VAGINAL FUNGUS INFECTION lisinopril (LISINOPRIL) Allergy (Unknown, Verified 08/28/25 13:36) COUGH verapamil Allergy (Unknown, Verified 08/28/25 13:36) unknown amoxicillin Adverse Reaction (Verified 08/28/25 13:36) Unknown HPI Comments Details: Patient is a 54 y.o. female depression, hypertension who is here today for follow up of polyarticular osteoarthritis and fibromyalgia Interval History: Patient last seen 08/20/25 - On Tramadol 50mg tid prn - patient follows up with pulmonology for anterior mediastinal lymphadenopathy/mass. 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 Post surgery x-rays showed small bilateral pleural effusions - She had a CT scan done 03/17/2025 which noted moderate bilateral pleural effusions with patient reporting feeling overall unwell with associated dry cough and shortness of breath - she underwent right thoracentesis 03/27/2025 removing 600 cc of bright yellow pleural fluid. No cough, hemoptysis, wheezing. Left sided pleural effusion too small for safe drainage - thoracentesis revealed eosinophilic exudate with negative cytology and culture - had recurrent effusions in April 2025 again had thoracentesis R 450mL, L 350mL which showed eosinophilic exudative - had follow up in May complaining of moderate to severe pleuritic chest pain. CTA showed trace bilateral pleural effusions - Denies hemoptysis, rash, worsening neuropathy, worsening abdominal pain Today - Urgent visit for bilateral knee pain Rheumatologic History: Patient established care with Rheumatology 01/30/2022 Fibromyalgia and polyarticular osteoarthritis She has tried and failed Lyrica, gabapentin cymbalta, amitriptyline, and her insurance did not approve Savella. She estimates that she gets 6 hours of sleep at night and is taking ambien. Unable to get tramadol due to insurance issues and baclofen did not help Current Rheumatology Medication(s): Tramadol 50mg tid prn PFSH Medical History (Updated 08/24/25 @ 13:18 by Amy Zimmerman NP) Dyspnea Urine incontinence Hematuria Right sided abdominal pain Chest discomfort Well woman exam Nausea Post-cholecystectomy syndrome Cataract, right eye Bilateral primary osteoarthritis of knee Gallstone pancreatitis Palpitations Fibromyalgia Depression Glaucoma HTN (hypertension) Surgical History S/P thoracotomy H/O colonoscopy History of tubal ligation Hx of carpal tunnel repair Hx of cholecystectomy Hx of knee surgery Family History Father Kidney disease Mother CVD (cardiovascular disease) Colon cancer Social History Household Members: None Housing: Apartment Are you a primary director long term care to a significant other at home: Yes Do you presently have visiting nurse or other home services: No Alcohol intake: never Patient Tobacco Use Status: Current everyday Tobacco user Cigarette Packs Per Day: 0.5 Years Smoked: 30 service: No Current occupational status: disabled Female Reproductive History Menstrual Age of Menarche: 9 Review of Systems Narrative see Above Physical Exam Exam Exam: Vital signs reviewed Physical Examination CONSTITUITIONAL Patient alert and cooperative. Well appearing and in no apparent painful distress MSK Knees * Right knee: Full ROM. No swelling noted. No TTP of the knee joint line. No TTP of pes anserine bursa * Left knee: Full ROM. No swelling noted. No TTP of the knee joint line. No TTP of pes anserine bursa. * Crepitations felt bilaterally Vital Signs: Last Vital Signs Pulse 75 08/28/25 13:36 BP 138/82 08/28/25 13:36 Pulse Ox 98 08/28/25 13:36 Oxygen Delivery Method Room Air 08/28/25 13:36 BMI result Body Mass Index 33.2 Office Procedures AMB Joint Injection/Aspiration Joint Injection/Aspiration Details: Procedure was explained to the patient and informed consent was obtained. ? Risks associated with the procedure were discussed with the patient including but not limited to bleeding, infection, drug reactions and reactions to the topical anesthetic. Patient made aware of signs to look out for infectious complications. The area of interest was identified and confirmed with patient. ?This was subsequently cleaned with chlorhexidine x 2. ? The area was then anesthetized using ethyl chloride spray. 40 mg Kenalog with 1 cc 1% lidocaine was injected without issue. ?Minimal to no bleeding. ?Patient tolerated procedure. Primary Site: Right Knee Prep: site was prepped using aseptic technique and ethochloride spray was applied Injected: 40 mg of, Kenalog, with 1 mL of and 1% plain Lidocaine Approach Used: anterior Procedure: The patient tolerated the procedure well Coding 15142 - Large joint Procedure code (CPT) selection complete AMB Joint Injection/Aspiration Joint Injection/Aspiration Details: Procedure was explained to the patient and informed consent was obtained. ? Risks associated with the procedure were discussed with the patient including but not limited to bleeding, infection, drug reactions and reactions to the topical anesthetic. Patient made aware of signs to look out for infectious complications. The area of interest was identified and confirmed with patient. ?This was subsequently cleaned with chlorhexidine x 2. ? The area was then anesthetized using ethyl chloride spray. 40 mg Kenalog with 1 cc 1% lidocaine was injected without issue. ?Minimal to no bleeding. ?Patient tolerated procedure. Primary Site: Left Knee Prep: site was prepped using aseptic technique and ethochloride spray was applied Injected: 40 mg of, Kenalog, with 1 mL of, 1% plain Lidocaine and in the joint Approach Used: anterior Procedure: The patient tolerated the procedure well Coding 46555 - Large joint Procedure code (CPT) selection complete Office Meds lidocaine (PF) 10 mg/mL (1 %) injection solution Performing Provider: Brigid West MD Performing Location: [facility] Administered by: Brigid West MD on 08/28/25 14:25 Dose Route Admin Location Dispensed Lot Number Expiration Date [facility] Second Crusher 1 mL Infiltration right knee 2 mL [id number] 02/07/27 96465-922-72 [facility] Total Dispensed Waste 2 mL 50 % Kenalog 40 mg/mL suspension for injection Performing Provider: Brigid West MD Performing Location: [facility] Administered by: Brigid West MD on 08/28/25 14:25 Dose Route Admin Location Dispensed Lot Number Expiration Date [facility] Second [employer]her 40 mg intra-articular right knee 1 mL [id number] 03/09/27 [address]- 1 [employer] Total Dispensed Waste 1 mL 0 % lidocaine (PF) 10 mg/mL (1 %) injection solution Performing Provider: Brigid eWst MD Performing Location: [facility] Administered by: Brigid West MD on 08/28/25 14:25 Dose Route Admin Location Dispensed Lot Number Expiration Date [place] [employer] 1 mL Infiltration left knee 2 mL [id number] 02/07/27 60080-468-21 [employer] Total Dispensed Waste 2 mL 50 % Kenalog 40 mg/mL suspension for injection Performing Provider: Brigid West MD Performing Location: [facility] Administered by: Brigid West MD on 08/28/25 14:25 Dose Route Admin Location Dispensed Lot Number Expiration Date [facility] Second [employer]her 40 mg intra-articular left knee 1 mL [id number] 03/09/27 [address]-5 [employer] Total Dispensed Waste 1 mL 0 % Results Reviewed Results Reviewed: XR Bilateral Knees 09/2024 FINDINGS (right knee): There is mild loss of medial and patellofemoral compartment joint space. There is no visible acute fracture or dislocation. There is anterior superior patellar enthesophyte. No joint effusion seen IMPRESSION: Mild degenerative arthritic changes medial and patellofemoral compartment. No visible acute fracture or dislocation. FINDINGS (left knee): On AP bilateral knee standing there is loss of medial and lateral compartment joint spaces in both knees. There is loss of lateral femoral compartment joint space with anterior superior an lateral patellar enthesophytes. No visible acute fracture, dislocation or subluxation seen. No loose bodies or soft tissue swelling. IMPRESSION: Mild degenerative changes of the right, and left knee and medial and lateral compartment right knee. Mild periapical spurring superior and lateral left patella. No acute fracture or dislocation or joint effusion seen in left knee. Assessment & Plan Assessment & Plan (1) Eosinophilic granulomatosis with polyangiitis (EGPA): Code(s): M30.1 - Polyarteritis with lung involvement [Churg-Faheem]; D72.18 - Eosinophilia in diseases classified elsewhere Plan: #?EGPA Patient is a 54-year-old female with recent onset of bilateral eosinophilic pleural effusions post thymectomy The patient's recent pleural effusion, now resolved, is considered a rare presentation of vasculitis. Given that her symptoms have resolved post-steroid treatment (2), initiating immunosuppressive therapy is not indicated at this time, a decision confirmed with a rheumatology colleague. The plan is for her to continue follow-up with pulmonology. Immunosuppression will be reconsidered if the pleural effusion recurs or if she develops new symptoms like a rash or he moptysis. Blood work and a urinalysis will be performed today. Plan - Monitor off immunosuppression for now - Follow closely with pulm for recurrence - If recurrence recommending bronchial biopsy for confirmation (1) prior to starting immunosuppression - Labs today: UA, UPC, CBC. CMP, ESR, CRP, ANCA 1. Int. J. Curr. Res. Med. Sci. (2017). 3(10): 107-111 2. Rakesh Pope, Mei R, Randa A, De Latisha A, Duong O, Stephany R, Orlando G, Vinicius G, Woodyi M, Rebecca L, Nely A, D'Eribertoio L, Alan A, Pranay Lopez. Onset of ANCA-positive EGPA with bilateral pleural effusion: a case report. Curr Med Res Opin. 2023;40(12):3121-9778. doi: 10.1080/81762894.2024.5294335. Epub 2023Jul 29. PMID: 14405979. 3. Lanny Malone, Dhara A, Puneet Winter, et?al. Evidence-based guideline for the diagnosis and management of eosinophilic granulomatosis with polyangiitis.?Devi Rev Rheumatol. 2022;19(6):378?393. doi: 10.1038/h52354-581-07582-l. (2) Bilateral primary osteoarthritis of knee: Code(s): M17.0 - Bilateral primary osteoarthritis of knee Category: Medical Plan: #Bilateral Knee OA Patient is a 54-year-old female with bilateral knee OA. Worsening knee pain s Plan Procedure only Orders: Orders AMB Joint Injection/Aspiration Today M17.0 - Bilateral primary osteoarthritis of knee AMB Joint Injection/Aspiration Today M17.0 - Bilateral primary osteoarthritis of knee Coding Level of Care Code Procedure Only Diagnoses Eosinophilic granulomatosis with polyangiitis (EGPA) M30.1; D72.18 Bilateral primary osteoarthritis of knee M17.0 CPT Codes Coding - 90528 Large joint: 43322 - Large joint ([id number]) Coding - 84432 Large joint: 71892 - Large joint ([id number])
[2025-08-28 13:36] VITALS: BP 138/82; PULSE 75; O2SAT 98; BMI 33.2
--- OUTSIDE RECORDS SUMMARY | 2025-08-28 14:50 | XMS_ITS | Encounter Summary ---
Author Organization [employer] Address [address] [place] [address] 7[address] [place] [address] Care Team Providers Care Tin Dipper Name Role Phone Mychal Fields MD Primary Care Provide r Hima Fam Unavailable Unavailable Yaneth Dotson RN Unavailable [phone] Mckenzie Silverio Unavailable [facility] Unavailable [phone] Reason for Visit * Reason Comments Med Refill Encounter Details Date Type Department Care Team (Late st Contact Info) Description 10/06/2024 Refill [facility] [address] [place], [place] [phone] Mychal Fields MD [address] [place], [place] [phone] Anxiety and depression Social History Tobacco Use [...] as of this encounter Care Teams Tin Dipper Relationship Specialty Start Date End Date Mychal Fields MD [address] [place] [address] PCP - General Internal Medicine 04/30/14 Hima Fam FNP [address] [place], [place] Nurse Practitioner Family Medicine 08/01/23 Yaneth Dotson, ALAN [address] [place] [phone] Registered Nurse Family Medicine 02/24/25 07/09/25 Mckenzie Silverio 02/24/25 07/20/25 Rheumatology, [address] [place] [address] Rheumatology 06/30/25 [employer] 02/13/25 03/29/25 documented as of this encounter
--- OUTSIDE RECORDS SUMMARY | 2025-08-28 14:50 | XMS_ITS | Clinical Summary ---
Author Organization [facility] [address] [facility] Address [address] [place] [address] Phone Care Team Providers Care Engineering Intern Name Role Phone Mychal Long MD Primary [...] [facility]. Patient may follow-up with us here [...] 3:00 PM EDT Office Visit Pulmonology - [address] [phone] Rosy Rhodes MD Bilateral pleural effusion (Primary Dx); Thymic cyst ([facility] V24); Chest pain on breathing 06/01/2025 11:00 AM EDT Office Visit Thoracic Surgery - [address] [phone] Linda Ureña NP Thymic cyst ([facility]/H[facility] V24) (Primary Dx); Pleuritic chest pain 05/29/2025 8:26 PM EDT - 05/29/2025 10:17 PM EDT Emergency [facility] Emergency [address] [place] [phone] Macrina Valiente MD Positive D dimer (Primary Dx); Pleural effusion, bilateral; Ground glass opacity present on imaging of lung Discharge Disposition: Home or Self Care 05/29/2025 3:00 PM EDT Office Visit Pulmonology [address] [phone] Rosy Rhodes MD Bilateral pleural effusion (Primary Dx); Chest pain on breathing 05/29/2025 Telephone Pulmonology [address] [address] Rosy Rhodes MD from Last [...] Asthma Anxiety Arthritis Joint pain Thymic cyst ([facility] V24) 02/26/2025 Family History Medical [...] Info) Description 08/31/2025 3:30 PM EST Appointment [facility] CT Scan [address] [place] [address] Health Maintenance Due Date Last [...] Burnette MD on 05/29/2025 21:25:46 Rachael RED [facility] CT PROCEDURES Final Result * (ABNORMAL) CBC auto differential (05/29/2025 3:41 PM EDT) WBC 8.9 4.8 - 10.8 K/mcL LAB HEMETOLOGY METHOD 05/29/2025 4:16 PM EDT [facility] RBC 4.10 3.80 - 4.80 M/mcL LAB HEMETOLOGY METHOD 05/29/2025 4:16 PM EDT [facility] Hemoglobin 11.1(L) 11.5 - 16.0 g/dL LAB HEMETOLOGY METHOD 05/29/2025 4:16 PM [facility] Hematocrit 34.2(L) 35.0 - 47.0 % LAB HEMETOLOGY METHOD 05/29/2025 4:16 PM [facility] MCV 83.6 79.0 - 98.0 FL LAB HEMETOLOGY METHOD 05/29/2025 4:16 PM [facility] MCH 27.1 27.0 - 32.0 pcg LAB HEMETOLOGY METHOD 05/29/2025 4:16 PM EDT [facility] MCHC 32.5 32.0 - 37.0 g/dL LAB HEMETOLOGY METHOD 05/29/2025 4:16 PM EDT [facility] RDW 14.0 11.0 - 15.0 % LAB HEMETOLOGY METHOD 05/29/2025 4:16 PM EDT [facility] Platelets 390 130 - 400 K/mcL LAB HEMETOLOGY METHOD 05/29/2025 4:16 PM EDT [facility] MPV 9.1 7.0 - 11.0 FL LAB HEMETOLOGY METHOD 05/29/2025 4:16 PM EDT [facility] NRBC 0.0 <1.0 % LAB HEMETOLOGY METHOD 05/29/2025 4:16 PM EDT [facility] NRBC Absolute 0.00 <0.10 K/mcL LAB [facility]Y [facility] Neutrophils Relative 58.6 % LAB HEMETOLOGY METHOD 05/29/2025 4:16 PM [facility] Lymphocytes Relative 30.4 % LAB HEMETOLOGY METHOD 05/29/2025 4:16 PM [facility] Monocytes Relative 4.4 % LAB HEMETOLOGY METHOD 05/29/2025 4:16 PM EDT [facility] Eosinophils Relative 5.5 % LAB HEMETOLOGY METHOD 05/29/2025 4:16 PM EDT [facility] Basophils Relative 0.8 % LAB [facility]EMETOLOGY [facility] Immature Granulocytes Relative 0.3 % LAB HEMETOLOGY METHOD 05/29/2025 4:16 PM EDT [facility] Neutrophils Absolute 5.20 1.50 - 7.00 K/[facility] LAB HEMETOLOGY METHOD 05/29/2025 4:16 PM EDT [facility] Lymphocytes Absolute 2.70 1.00 - 5.00 K/mcL LAB HEMETOLOGY METHOD 05/29/2025 4:16 PM EDT [facility] Monocytes Absolute 0.39 0.20 - 1.00 K/[facility] LAB HEMETOLOGY METHOD 05/29/2025 4:16 PM EDT [facility] Eosinophils Absolute 0.49 0.00 - 0.50 K/[facility] LAB HEMETOLOGY METHOD 05/29/2025 4:16 PM EDT [facility] Basophils Absolute 0.07 0.00 - 0.20 K/[facility] LAB HEMETOLOGY METHOD 05/29/2025 4:16 PM EDT [facility] Immature Granulocytes Absolute 0.03 0.00 - 0.03 K/[facility] LAB HEMETOLOGY METHOD 05/29/2025 4:16 PM EDT [facility] Blood Venous blood specimen / Unknown Venipuncture / Unknown 05/29/2025 3:41 PM EDT 05/29/2025 4:05 PM EDT us Rosy Rhodes MD LAB BLOOD ORDERABLES Final Result [facility] [address] [place] [address], * (ABNORMAL) D-Dimer (05/29/2025 3:41 PM EDT) D-Dimer, Quant (D-DU) 3,062(H) <=230 ng/mL DDU LAB COAGULATION METHOD 05/29/2025 4:20 PM EDT [facility] Blood Venous blood specimen / Unknown Venipuncture / Unknown 05/29/2025 3:41 PM EDT 05/29/2025 4:05 PM EDT Narrative [facility] - 05/29/2025 4:20 PM EDT D-Dimer <230 ng/mL (D-Dimer units) is the threshold for exclusion of DVT/PE. D-Dimer may be elevated in: Critically ill, severely infected, trauma patients, DIC, acute CVA, acute NC, unstable angina, AF, old age, , and smoking. D-Dimer may be decreased with: Initiation of heparin therapy and oral anticoagulants. us Rosy Rhodes MD LAB BLOOD ORDERABLES Final Result [facility] [address] [place] [address], * (ABNORMAL) Basic metabolic panel (05/29/2025 3:41 PM EDT) Sodium 138 133 - 145 mmol/L LAB CHEMISTRY METHOD 05/29/2025 4:31 PM [facility] Potassium 4.0 3.5 - 5.5 mmol/L LAB CHEMISTRY METHOD 05/29/2025 4:31 PM [facility] Chloride 106 96 - 110 mmol/L LAB CHEMISTRY METHOD 05/29/2025 4:31 PM [facility] CO2 28 21 - 32 mmol/L LAB CHEMISTRY METHOD 05/29/2025 4:31 PM [facility] Anion Gap 4 3 - 11 LAB CHEMISTRY METHOD 05/29/2025 4:31 PM [facility] Glucose 108(H) 70 - 100 mg/dL LAB CHEMISTRY METHOD 05/29/2025 4:31 PM [facility] BUN 9 5 - 25 mg/dL LAB CHEMISTRY METHOD 05/29/2025 4:31 PM [facility] Creatinine 0.86 0.50 - 1.10 mg/dL LAB CHEMISTRY METHOD 05/29/2025 4:31 PM [facility] eGFR 80 >=60 mL/min/1. 73m2 LAB CHEMISTRY METHOD 05/29/2025 4:31 PM EDT [facility] Comment:Calculation based on the Chronic Kidney Disease Epidemiology Collaboration (CKD-EPI) equation refit without adjustment for race. BUN/Creatinine Ratio 10.5 LAB CHEMISTRY METHOD 05/29/2025 4:31 PM EDT [facility] Calcium 9.1 8.5 - 10.5 mg/dL LAB CHEMISTRY METHOD 05/29/2025 4:31 PM EDT [facility] Blood Venous blood specimen / Unknown Venipuncture / Unknown 05/29/2025 3:41 PM EDT 05/29/2025 4:05 PM EDT us Rosy Rhodes MD LAB BLOOD ORDERABLES Final Result [facility] [address] [place] [address], from Last 3 Months Insurance MEDICAID - [...] currently active code status orders. Care Teams Engineering Intern Relationship Specialty Start Date End Date Mychal Long MD [address] [place] [address] [place] [address] PCP - General 12/26/11
--- OUTSIDE RECORDS SUMMARY | 2025-08-28 14:50 | XMS_ITS | Encounter Summary ---
Author Organization [employer] Address [address] [place] [address] 7t [place] [address] Care Team Providers Care Electrochemist Name Role Phone Mychal Fields MD Primary Care Provide r Hima Fam Unavailable Unavailable Yaneth Dotson RN Unavailable [phone] Mckenzie Silverio Unavailable [facility] Unavailable [phone] Reason for Visit * Reason Comments Med Refill Encounter Details Date Type Department Care Team (Late st Contact Info) Description 07/27/2023 Refill [facility] MEDICINE [address] [place], [place] [phone] Mychal Fields MD [address] [place], [place] [phone] Social History Tobacco Use Types Packs/Day Years [...] documented as of this encounter Care Teams Electrochemist Relationship Specialty Start Date End Date Mychal Fields MD [address] [place] [address] PCP - General Internal Medicine 04/30/14 Hima Fam FNP [address] [place] [address] Nurse Practitioner Family Medicine 08/01/23 Yaneth Dotson RN [address] [place] [address] Registered Nurse Family Medicine 02/24/25 07/09/25 Mckenzie Silverio 02/24/25 07/20/[address] [place] [address] Rheumatology 06/30/25 [employer] 02/13/25 03/29/25 documented as of this encounter
--- OUTSIDE RECORDS SUMMARY | 2025-08-28 14:50 | XMS_ITS | Encounter Summary ---
Author Organization [employer] Address [address] [place] [address] 7t [place] [address] Care Team Providers Care Sas Statistical Programmer Name Role Phone Mychal Fields MD Primary Care Provide r Hima Fam Unavailable Unavailable Yaneth Dotson RN Unavailable [phone] Mckenzie Silverio Unavailable [facility] Unavailable [phone] Reason for Visit * Reason Onset Date Comments PRE OP 11/10/2024 Encounter Details Date Type Department Care Team (Late st Contact Info) Description 11/10/2024 Telephone [facility] MEDICINE [address] [place], [place] [phone] Mychal Fields MD [address] [place], [place] [phone] PRE OP Social History Tobacco Use Types [...] needed: No EKG: No Surgeon's name: Dino [place] Facility name: [facility] Surgeon's office number: [phone] Surgeon's office fax number: [phone] Contact name (person you spoke with): Karon [...] documented as of this encounter Care Teams Sas Statistical Programmer Relationship Specialty Start Date End Date Mychal Fields MD [address] [place] [address] PCP - General Internal Medicine 04/30/14 Hima Fam FNP [address] [place] [address] Nurse Practitioner Family Medicine 08/01/23 Yaneth Dotson, ALAN [address] [place] [address] Registered Nurse Family Medicine 02/24/25 07/09/25 Mckenzie Silverio 02/24/25 07/20/[address] [place] [address] Rheumatology 06/30/25 [employer] 02/13/25 03/29/25 documented as of this encounter
--- OUTSIDE RECORDS SUMMARY | 2025-08-28 14:50 | XMS_ITS | Encounter Summary ---
Author Organization [employer] Address [address] [place] [address] 7t [place] [address] Care Team Providers Care Fruit Picker Machine Operator Name Role Phone Mychal Fields MD Primary Care Provide r Hima Fam Unavailable Unavailable Yaneth Dotson RN Unavailable [phone] Mckenzie Silverio Unavailable [facility] Unavailable [phone] Reason for Visit * Reason Comments Med Refill Encounter Details Date Type Department Care Team (Late st Contact Info) Description 07/27/2023 Refill [facility] MEDICINE [address] [place], [place] [phone] Mychal Fields MD 230 [place], [place] [phone] Social History Tobacco Use Types Packs/Day Years [...] documented as of this encounter Care Teams Fruit Picker Machine Operator Relationship Specialty Start Date End Date Mychal Fields MD [address] [place] [address] PCP - General Internal Medicine 04/30/14 Hima Fam FNP [address] [place] [address] Nurse Practitioner Family Medicine 08/01/23 Yaneth Dotson RN [address] [place] [address] Registered Nurse Family Medicine 02/24/25 07/09/25 Mckenzie Silverio 02/24/25 07/20/[address] [place] [address] Rheumatology 06/30/25 [employer] 02/13/25 03/29/25 documented as of this encounter
--- OUTSIDE RECORDS SUMMARY | 2025-08-28 14:51 | XMS_ITS | Encounter Summary ---
Author Organization [employer] Address [address] [place] [address] 7t [place] [address] Care Team Providers Care Accountant Name Role Phone Mychal Fields MD Primary Care Provide r Hima Fam Unavailable Unavailable Yaneth Dotson RN Unavailable [phone] Mckenzie Silverio Unavailable [facility] Unavailable [phone] Reason for Visit * Reason Onset Date Comments Appointment Request 12/04/2022 Encounter Details Date Type Department Care Team (Late st Contact Info) Description 12/04/2022 Telephone [facility] MEDICINE [address] [place], [place] [phone] Mychal Fields MD [address] [place], [place] [phone] Appointment Request Social History Tobacco Use Types [...] ff/u Bp ) Please contact pt at [phone] * Telephone Encounter - Wesley Collins - 12/04/2022 2:02 PM EDT Tc from pt requesting to r/s appt on 10/19/22 ( ff/u Bp ) Please contact pt at [phone] documented in this encounter Plan of Treatment Not on file documented as of this encounter Visit Diagnoses Not on filedocumented in this encounter Additional Health Concerns Assessment Noted Time PHQ-9 Depression Total Score: 7 10/09/19 4:00 PM EST documented as of this encounter Care Teams Accountant Relationship Specialty Start Date End Date Mychal Fields MD 230 [place] [address] PCP - General Internal Medicine 04/30/14 Hima Fam FNP [address] [place] [address] Nurse Practitioner Family Medicine 08/01/23 Yaneth Dotson, ALAN [address] [place] [address] Registered Nurse Family Medicine 02/24/25 07/09/25 Mckenzie Silverio 02/24/25 07/20/[address] [place] [address] Rheumatology 06/30/25 [employer] 02/13/25 03/29/25 documented as of this encounter
--- OUTSIDE RECORDS SUMMARY | 2025-08-28 14:51 | XMS_ITS | Encounter Summary ---
Author Organization [employer] Address [address] [place] [address] 7t [place] [address] Care Team Providers Care Exhibit Preparator Name Role Phone Mychal Fields MD Primary Care Provide r Hima Fam Unavailable Unavailable Mckenzie Silverio Unavailable [facility] Unavailable [phone] Reason for Visit * Reason Onset Date Comments Med Refill 07/16/2025 Encounter Details Date Type Department Care Team ([facility] st Contact Info) Description 07/16/2025 Telephone [facility] MEDICINE [address] [place], [place] [phone] Mychal Fields MD [address] [place], [place] [phone] Med Refill Social History Tobacco Use Types [...] 10 MG tablet To be sent to: [id number] [address] documented in this encounter Plan of Treatment Not on file documented as of this encounter Visit Diagnoses Not on filedocumented in this encounter Additional Health Concerns Assessment Noted Time PHQ-9 Depression Total Score: 15 025 12:51 PM EDT documented as of this encounter Care Teams Exhibit Preparator Relationship Specialty Start Date End Date Mychal Fields MD [address] [place] [address] PCP - General Internal Medicine 04/30/14 Hima Fam FNP [address] [place] [address] Nurse Practitioner Family Medicine 08/01/23 Mckenzie Silverio 02/24/25 07/20/[address] [place] [address] Rheumatology 06/30/25 documented as of this encounter
--- OUTSIDE RECORDS SUMMARY | 2025-08-28 14:51 | XMS_ITS | Encounter Summary ---
Author Organization [employer] Address [address] [place] [address] 7t [place] [address] Care Team Providers Care Latin American Studies Director Name Role Phone Mychal Fields MD Primary Care Provide r Hima Fam Unavailable Unavailable Yaneth Dotson RN Unavailable [phone] Mckenzie Silverio Unavailable [facility] Unavailable [phone] Encounter Details Date Type Department Care Team ([facility] st Contact Info) Description 12/05/2022 Orders Only [facility] MED & PEDS [address] [place], [place] [phone] Veda Isabel LPN Social History Tobacco Use [...] documented as of this encounter Care Teams Latin American Studies Director Relationship Specialty Start Date End Date Mychal Fields MD [address] [place] [phone] PCP - General Internal Medicine 04/30/14 Hima Fam FNP [address] [place] [address] Nurse Practitioner Family Medicine 08/01/23 Yaneth Dotson, ALAN [address] [place] [address] Registered Nurse Family Medicine 02/24/25 07/09/25 Mckenzie Silverio 02/24/25 07/20/[address] [place], [place] [phone] Rheumatology 06/30/25 [employer] 02/13/25 03/29/25 documented as of this encounter
--- OUTSIDE RECORDS SUMMARY | 2025-08-28 14:51 | XMS_ITS | Encounter Summary ---
Author Organization [employer] Address [address] [place] [address] 7t [place] [address] Care Team Providers Care Title Insurance Agent Name Role Phone Mychal Fields MD Primary Care Provide r Hima Fam Unavailable Unavailable Yaneth Dotson RN Unavailable [phone] Mckenzie Silverio Unavailable [facility] Unavailable [phone] Encounter Details Date Type Department Care Team ([facility] st Contact Info) Description 12/04/2022 Telephone [facility] MEDICINE [address] [place], [place] [phone] Mychal Fields MD [address] [place], [place] [phone] Social History Tobacco Use Types Packs/Day Years [...] documented as of this encounter Care Teams Title Insurance Agent Relationship Specialty Start Date End Date Mychal Fields MD [address] [place] [address] PCP - General Internal Medicine 04/30/14 Hima Fam FNP [address] [place] [address] Nurse Practitioner Family Medicine 08/01/23 Yaneth Dotson, ALAN [address] [place] [address] Registered Nurse Family Medicine 02/24/25 07/09/25 Mckenzie Silverio 02/24/25 07/20/[address] [place] [address] Rheumatology 06/30/25 [employer] 02/13/25 03/29/25 documented as of this encounter
--- OUTSIDE RECORDS SUMMARY | 2025-08-28 14:51 | XMS_ITS | Encounter Summary ---
Author Organization [employer] Address [address] [place] [address] 7t [place] [address] Care Team Providers Care Baggage And Mail Agent Name Role Phone Mychal Fields MD Primary Care Provide r Hima Fam Unavailable Unavailable Yaneth Dotson RN Unavailable [phone] Mckenzie Silverio Unavailable [facility] Unavailable Encounter Details Date Type Department Care Team (Late st Contact Info) Description 04/24/2023 Orders Only [facility] MEDICINE [address] [place] [address] Zena Harley MD [address] [place] [address] Acquired clavicle deformity (Primary Dx) Social History [...] PM EDT Narrative 05/14/2023 4:45 PM EDT [address] [address] XRay Report Signed Patient: Elaine Rodas MR#: [id number] : 1970 Acct:[id number] Age/Sex: 52 / F ADM Date: 05/14/23 Loc: HO.ED Attending Dr: Ordering Physician: Vee Castano NP Date of Service: 05/14/23 Procedure(s): XR chest 2V Accession Number(s): [id number] cc: Mychal Long MD; Vee Castano NP [...] in OV> 05/14/23 1642 DD/ 1624 TD/TT: Car Shagger: DORITA Procedure Note Donotuseinterpreter, Image - 05/14/[address] [address] XRay Report Signed Patient: Elaine RodasMR#: [id number] : 1970Acct:[id number] Age/Sex: 52 / FADM Date: 05/14/23 Loc: HO.ED Attending Dr: Ordering Physician: Vee Castano NP Date of Service: 05/14/23 Procedure(s): XR chest 2V Accession Number(s): [id number] cc: Mychal Long MD; Vee Castano NP [...] in OV> 05/14/23 1642 DD/ 1624 TD/TT: Car Shagger: DORITA [facility] External Provider IMG XR PROCEDURES Edited Result - Final * XR Foot 3+ Views Right (05/10/2023 11:44 AM EDT) Anatomical Region Laterality Modality Lower Extremities, Foot Right Radiogra phic Imaging 05/10/2023 11:4 4 AM EDT Narrative 05/10/2023 12:08 PM EDT [address] [address] XRay Report Signed Patient: Elaine Rodas MR#: [id number] : 1970 Acct:[id number] Age/Sex: 52 / F ADM Date: 05/10/23 Loc: HO.CX Attending Dr: Mychal Long MD Ordering Physician: Mychal Long MD Date of Service: 05/10/23 Procedure(s): XR foot RT min 3V Accession Number(s): [id number] cc: Mychal Long MD EXAMINATION: XR FOOT, [...] in OV> 05/10/23 1205 DD/ 1144 TD/TT: Car Shagger: YULISSA Procedure Note Donotuseinterpreter, Image - 05/10/[address] [address] XRay Report Signed Patient: Elaine RodasMR#: [id number] : 1970Acct:[id number] Age/Sex: 52 / FADM Date: 05/10/23 Loc: HO.HHCX Attending Dr: Mychal Long MD Ordering Physician: Mychal Long MD Date of Service: 05/10/23 Procedure(s): XR foot RT min 3V Accession Number(s): [id number] cc: Mychal Long MD EXAMINATION: XR FOOT, [...] in OV> 05/10/23 1205 DD/ 1144 TD/TT: Car Shagger: YULISSA us Mychal Morris MD IMG XR PROCEDURES Fin al Result * FL Esophagus Barium Swallow w/Air (05/08/2023 10:19 AM EDT) Anatomical Region Laterality Modality Head, Neck Radiographic Hilda ging 05/08/2023 10:1 9 AM EDT Narrative 05/08/2023 4:35 PM EDT [place] [address] Fluoroscopy Report Signed Patient: Elaine Rodas MR#: [id number] : 1970 Acct:[id number] Age/Sex: 52 / F ADM Date: 05/08/23 Loc: CHAPARRITA Attending Dr: Mychal Long MD Ordering Physician: Mychal Long MD Date of Service: 05/08/23 Procedure(s): FL barium swallow with air Accession Number(s): [id number] cc: Mychal Long MD EXAMINATION: XR FLUOROSCOPY [...] in OV> 05/08/23 1632 DD/ 1019 TD/TT: Car Shagger: Procedure Note Donotuseinterpreter, Image - 05/08/[address] [address] Fluoroscopy Report Signed Patient: Elaine RodasMR#: [id number] : 1970Acct:[id number] Age/Sex: 52 / FADM Date: 05/08/23 Loc: HOKRISH Attending Dr: Mychal Long MD Ordering Physician: Mychal Long MD Date of Service: 05/08/23 Procedure(s): FL barium swallow with air Accession Number(s): [id number] cc: Mcyhal Long MD EXAMINATION: XR FLUOROSCOPY BARIUM SWALLOW [...] in OV> 05/08/23 1632 DD/ 1019 TD/TT: Car Shagger: Mychal Morris MD IMG FLUOROSCOPY PROCE DURES Final Result documented in this encounter Visit Diagnoses Diagnosis 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 documented in this encounter Additional Health Concerns Assessment Noted Time PHQ-9 Depression Total Score: 8 02/09/20 23 11:04 AM EDT documented as of this encounter Care Teams Baggage And Mail Agent Relationship Specialty Start Date End Date Mychal Fields MD [address] [place] [address] PCP - General Internal Medicine 04/30/14 Hima Fam FNP [address] [place] [address] Nurse Practitioner Family Medicine 08/01/23 Yaneth Dotson, ALAN [address] [place] [address] Registered Nurse Family Medicine 02/24/25 07/09/25 Mckenzie Silverio 02/24/25 07/20/[address] [place] [address] Rheumatology 06/30/25 [employer] [facility] 02/13/25 03/29/25 documented as of this encounter
--- OUTSIDE RECORDS SUMMARY | 2025-08-28 14:51 | XMS_ITS | Encounter Summary ---
Author Organization [employer] Address [address] [place] [address] 7t [place] [address] Care Team Providers Care Hazmat Cdl A Driver Name Role Phone Mychal Fields MD Primary Care Provide r Hima Fam Unavailable Unavailable Yaneth Dotson RN Unavailable [phone] Mckenzie Silverio Unavailable [facility] Unavailable [phone] Reason for Visit * Reason Comments Med Refill Encounter Details Date Type Department Care Team (Late st Contact Info) Description 10/05/2022 Refill [facility] MEDICINE 230 [place] [address] Hima Fam FNP Anxiety state Social History [...] unspecified documented in this encounter Care Teams Hazmat Cdl A Driver Relationship Specialty Start Date End Date Mychal Fields MD [address] [place] [address] PCP - General Internal Medicine 04/30/14 Hima Fam FNP [address] [place] [address] Nurse Practitioner Family Medicine 08/01/23 Yaneth Dotson, ALAN [address] [place] [address] Registered Nurse Family Medicine 02/24/25 07/09/25 Mckenzie Silverio 02/24/25 07/20/[address] [place] [address] Rheumatology 06/30/25 [employer] 02/13/25 03/29/25 documented as of this encounter
--- OUTSIDE RECORDS SUMMARY | 2025-08-28 14:51 | XMS_ITS | Clinical Summary ---
Author Organization [employer] Address [address] [facility] [address] [place] [address] Care Team Providers Care Junior Oracle Dba Name Role Phone Mychal Fields MD Primary Care Provide r [facility] Unavailable Unavailable [facility] Unavailable [phone] Allergies Active Allergy Reactions Criticality Noted Date [...] every 30 (thirty) days. 024 Active rizatriptan BUDGET COUNSELOR (Maxalt-BUDGET COUNSELOR) 5 MG disintegrating tablet 024 Active varenicline [...] Hematology by Pulmonology due to marked eosinophilia. Charge Entry Clerk ordered a work up to rule out Vasculitis. C-ANCA was negative but Positive Proteinase 3 antibody. Significance? Pt has a Vending Machine Filler : Brigid [place] [facility] [place] I will ask our team RNS [...] (06/30/2025 9:44 AM EDT): Pt evaluated at [facility] 05/29/2025 As part of her ER evaluation [...] was evaluated by Dr. Wynn at our [facility] who recommended to check D dimer given [...] We are trying to get her to [facility] before the lab and xray close [...] reports she has completed [facility], notes not available at this time [...] EDT): Pelvis exam indicative of this Plan: RETAIL MERCHANDISER TECHNICIAN referral Analy vaginitis 06/26/2023 Assessment & Plan [...] significant eosinophils possibly related to hypereosinophilic conditions. Charge Entry Clerk referred to hematology for further evaluation. They [...] no good results, cannot tolerate NSAIDS [facility] [place] not accepting new patients at the moment. Will try to refer to a different Neurologist perhaps at [facility] Assessment & Plan (01/17/2024 1:06 PM [...] also be referring to Neurology at [facility] [place] & Plan (04/03/2023 1:22 PM EDT): [...] Pt has a therapist at [facility] I recommended she speak with therapist about referral to agency psychiatrist, unfortunatelly they do not have any availability In the meantime I will manage medications if necessary. Plan: Continue: clonazePAM (KlonoPIN) 1 MG tablet hydrOXYzine HCl (Atarax) 25 MG tablet zolpidem (Ambien) 10 MG tablet Will refer to our academic hospitalist Assessment & Plan (05/15/2024 1:34 PM EDT): [...] Pt has a therapist at [facility] I recommended she speak with [...] necessary. For any issues or concerns, contact [facility]. All her questions were answered and I [...] used to be under the care of older adult social work specialist who had been prescribing Baclofen Assessment [...] used to be under the care of older adult social work specialist who had been prescribing tramadol 100mg [...] without neural impingement. Pt was seen at [facility] 04/2023 and has a follow up appointment [...] without neural impingement. Pt was seen at [facility] recently has a follow up recommended PT [...] neural impingement. Pt will be referred to [facility] Smoker 02/21/2012 Assessment & Plan (04/03/2023 1:41 [...] Data 08/18/2025 2:15 PM EST Office Visit [facility] [place] [address] Mychal Fields MD Essential hypertension (Primary Dx); Low vitamin D level; Anxiety and depression; Class 2 severe obesity due to excess calories with serious comorbidity and body mass index (BMI) of 36.0 to 36.9 in adult; Dietary counseling; Exercise counseling; Encounter for immunization 08/18/2025 Travel 08/13/2025 Telephone [facility] [place] [address] Mychal Fields MD CHART PREP 08/07/2025 Refill [facility] [place] [address] Mychal Fields MD 07/27/2025 Telephone [facility] Jose [facility] [place] [address] Mychal Fields MD Call Back Request 07/24/2025 2:00 PM EST Office Visit [facility] [place] [address] Manjeet Deluca MD Androgenic alopecia (Primary Dx); 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 Travel 07/22/2025 Orders Only [facility] External Provider, [facility] 07/20/2025 Patient Outreach [facility] [place] [address] Mychal Fields MD Care Coordination (SDOH f/u) 07/16/2025 Telephone [facility] [place] [address] Mychal Fields MD Med Refill 07/14/2025 Refill [facility] [place] [address] Bette Wynn MD Anxiety and depression 07/11/2025 Refill [facility] [address] [place] [address] Mychal Fields MD Anxiety and depression 07/09/2025 Patient Outreach [address] [address] Mychal Fields MD Care Management (C3CM- f/u call lvm) 07/03/2025 Patient Outreach [address] [address] Mychal Fields MD Care Coordination (PT1) 07/02/[address] [address] Mychal Fields MD 06/30/2025 9:15 AM EDT Office Visit [address] [address] Mychal Fields MD Dizzy spells (Primary Dx); Analy vaginitis; Irritable bowel syndrome with both constipation and diarrhea; Restrictive lung disease; Anemia due to other cause, not classified; Essential hypertension; Positive MAURICE (antinuclear antibody); Pneumonia of both lower lobes due to infectious organism 06/30/[address] [address] Christie Contreras RN Interoffice Coordination 06/30/2025 Travel 06/29/2025 Patient Outreach [address] [address] Mychal Fields MD Care Coordination (Triage) 06/26/2025 Patient Outreach [address] [address] Mychal Fields MD Care Coordination (PT1) 06/26/2025 Patient Outreach [address] [address] Mychal Fields MD Care Management (C3CM- f/u call) 06/15/2025 Patient Outreach [address] [address] Mychal Fields MD Care Management (C3CM- f/u call lvm) 06/15/2025 Patient Outreach [address] [address] Mychal Fields MD Care Coordination (PT1 f/u) 06/11/2025 Refill [facility] [address] [place] [address] Mychal Fields MD Anxiety and depression 06/10/2025 Patient Outreach [address] [address] Mychal Fields MD Care Coordination (SDOH f/u) 06/09/2025 Refill [facility] [address] [place] [address] Noemy Frye RN Anxiety and depression 06/09/[address] [address] Mychal Fields MD Med Refill 06/09/2025 Patient Outreach [address] [address] Mychal Fields MD Care Management (C3CM- f/u call lv) 06/08/2025 Orders Only GENERIC EXTERNAL DATA DEPARTMENT Provider, Generic External Data 06/05/[address] [address] Mychal Fields MD 06/05/[address] [address] Mychal Fields MD august06/01/2025 Patient Outreach [address] [address] Mychal Fields MD from Last 3 Months [...] Vaccine ( season) 2025 06/20/2022, 06/20/2022, 05/17/2021 Depression Monitoring [...] Routine 08/21/2025 11:38 AM EST Essential hypertension ANCA VASCULITIDES Routine 08/20/2025 3:4 3 PM EST URINALYSIS, COMPLETE (INCLUDES MACRO AND [...] 11:38 AM EST) Triglycerides 95 <150 mg/dL [facility] Comment:Desirable Triglyceri de: less than 150 mg/dLBorderline High Triglyceride 150-199 mg/dLHigh Triglyceride: 200-499 mg/dLVery High Triglyceride: greater than or equal to 5OO mg/dL Cholesterol 198 <200 mg/dL [facility] Comment:Desirable Cholestero l: less than 200 mg/dLBorderline High Cholesterol: 200-239 mg/dLHigh Cholesterol: greater than 239 mg/dL LDL Cholesterol Calculated 124(H) <100 mg/dL [facility] Comment:Desirable LDL: less than 100 mg/dLNear Optimal/Above Optimal LDL: 110- 129 mg/dLBorderline High LDL: 130-159 mg/dLHigh LDL: 160-189 mg/dLVery High LDL: greater than or equal to 190 mg/dL HDL Cholesterol 55 >40 mg/dL [facility] Comment:Desirable HDL: great er than 40 mg/dL Note: This HDL assay may give artificially low results in patients with liver disease. Blood Venous blood specimen / Unknown 08/21/2025 11:38 AM EST 08/21/2025 11:38 AM EST us Mychal Morris MD LAB BLOOD ORDERABLES Final Result [facility] [address] [place] [address] [phone] * (ABNORMAL) ANCA Vasculitides (08/20/2025 3:43 PM EST) Only the most recent of2 resultswithin the time period is included. Myeloperoxidase Antibody <1.0 AI [facility] Comment:Value Interpretation ----- <1.0 No Antibody Detected > or = 1.0 Antibody DetectedAutoantibodies to myeloperoxidase (MPO) are commonlyassociated with the following small-vesselvasculitides: microscopic polyangiitis,polyarteritis nodosa, Churg-Faheem syndrome,necrotizing and crescentic glomerulonephritis andoccasionally granulomatosis with polyangiitis(GPA, Jensen's). The perinuclear IFA pattern,(p-ANCA) is based largely on autoantibody tomyeloperoxidase which serves as the primary antigen.These autoantibodies are present in active disease. Proteinase-3 Antibody 13.9(A) AI [facility] Comment:Since patient sera m ay contain heterogeneous antibodypopulations, caution should be utilized in interpretingresults >8.0 due to varying degrees of non-linearity. Value Interpretation ----- <1.0 No Antibody Detected > or = 1.0 Antibody DetectedAutoantibodies to proteinase-3 (OH-3) are accepted ascharacteristic for granulomatosis with polyangiitis(GPA, Jensen's), and are detectable in 95% of thehistologically proven cases. The cytoplasmic IFApattern, (c-ANCA), is based largely on autoantibody toPR-3 which serves as the primary antigen.These autoantibodies are present in active disease.THIS TEST WAS PERFORMED AT:[facility] [place] [phone] PRESSLEY MD 08/20/2025 3:43 PM EST 08/20/2025 5:52 PM EST us Generic External Data Provider LAB BLOOD ORDERAB LES Final Result [facility] [address] [place] [address] [phone] * (ABNORMAL) Protein Creatinine Ratio, Urine (08/20/2025 3:43 PM EST) Creatinine, Urine 402.22 mg/dL [facility] Protein, Total, Random Urine 18(H) <12 mg/dL [facility] Protein/Creati nine Ratio, Ur 0.04 <0.2 [facility] Comment:The spot urine prote in:creatinine ratio may increase to 0.3during normal . 08/20/2025 3:43 PM EST 08/20/2025 5:48 PM EST us Generic External Data Provider LAB URINE ORDERAB LES Final Result [facility] [address] [place] [address] [phone] * (ABNORMAL) CBC auto differential (08/20/2025 3:43 PM EST) Only the most recent of2 resultswithin the time period is included. White Blood Count 8.1 4.8 - 10.8 X10*3/uL [facility] Red Blood Count 4.52 4.20 - 5.50 X10*6/uL [facility] Hemoglobin 13.0 12.0 - 16.0 g/dl [facility] Hematocrit 40.0 37.0 - 47.0 % [facility] Mean Corpuscular Volume 88.5 80.0 - 98.0 fL [facility] Mean Corpuscular Hemoglobin 28.8 27.0 - 33.0 pg [facility] Mean Corpuscular HGB Conc 32.5 31.0 - 35.0 g/dl [facility] Red Cell Distribution Width 14.3 11.0 - 16.0 % [facility] Platelet Count 298 160 - 400 X10*3/uL [facility] Mean Platelet Volume 10.2 9.4 - 12.3 fL [facility] Neutrophils Percent Auto 49.5 45 - 73 % [facility] Imm Gran Pct Auto 0.2 0.0 - 0.4 % [facility] Lymphocytes Percent Auto 42.2(H) 20 - 40 % [facility] Monocytes Percent Auto 5.2 2 - 11 % [facility] Eosinophils Percent Auto 2.0 0 - 4 % [facility] Basophils Percent Auto 0.9 0 - 2 % [facility] NRBC Pct Auto 0.0 0.0 - 0.2 /100WBC [facility] Neutrophils Absolute Auto 4.0 2.0 - 8.3 x10*3/uL [facility] Imm Gran Abs Auto 0.02 0.00 - 0.03 X10*3/uL [facility] Lymphocytes Absolute Auto 3.4 1.2 - 4.9 X10*3/uL [facility] Monocytes Absolute Auto 0.4 0.1 - 1.2 X10*3/uL [facility] Eosinophils Absolute Auto 0.2 0.0 - 0.4 X10*3/uL [facility] Basophils Absolute Auto 0.1 0.0 - 0.2 X10*3/uL [facility] NRBC Abs Auto 0.000 0.0 - 0.012 X10*3/uL [facility] 08/20/2025 3:43 PM EST 08/20/2025 5:52 PM EST us Generic External Data Provider LAB BLOOD ORDERAB LES Final Result [facility] [address] [place] [address] [phone] * Urinalysis Complete (08/20/2025 3:43 PM EST) Color Urine Yellow [facility] Appearance Urine Turbid [facility] PH 6.0 5.0 - 9.0 [facility] Glucose Urine UA Negative Negative mg/dL [facility] Urine Blood Negative Negative [facility] Specific [place] - Urine 1.020 1.005 - 1.025 [facility] Urine Protein Trace Neg-Trace mg/dL [facility] Urine Ketones Trace Negative mg/dL [facility] Nitrite Urine Negative Negative [facility] Leukocyte Esterase Urine Negative Negative [facility] RBC Urine 0-2 0 - 2 /HPF [facility] Urine WBC 0-5 0 - 5 /HPF [facility] Urine Squamous Epithelial Cell 0-2 0 - 2 /HPF [facility] CALCIUM OXALATE CRYSTAL, UR Present [facility] Urine Bacteria None Seen None Seen [facility] Hyaline Casts, Urine 3-5 0 - 2 /LPF [facility] 08/20/2025 3:43 PM EST 08/20/2025 5:48 PM EST us Generic External Data Provider LAB URINE ORDERAB LES Final Result Performing Organization Address [facility] Co de Phone Number [facility] [address] [place] [phone] * Sed Rate by Modified Westergren (08/20/2025 3:43 PM EST) Erythrocyte Sedimentation Rate 25 1 - 30 MM/HR [facility] Comment:Patients with polycy themia and many hemoglobin abnormalitiesmay have depressed sed rates whereas patients with anemiamay have elevated sed rates. 08/20/2025 3:43 PM EST 08/20/2025 5:52 PM EST us Generic External Data Provider LAB BLOOD ORDERAB LES Final Result Performing Organization Address [facility] Phone Number [facility] [address] [place] [phone] * (ABNORMAL) C-reactive Protein (08/20/2025 3:43 PM EST) C Reactive Protein 1.05(H) < or = 0.50 mg/dL [facility] 08/20/2025 3:43 PM EST 08/20/2025 5:52 PM EST us Generic External Data Provider LAB BLOOD ORDERAB LES Final Result Performing Organization Address [facility] Co de Phone Number [facility] [address] [place] [phone] * Comprehensive Metabolic Panel (08/20/2025 3:43 PM EST) Sodium 142 135 - 145 mmol/L [facility] Potassium 3.7 3.3 - 5.1 mmol/L [facility] Chloride 108 96 - 108 mmol/L [facility] Carbon Dioxide 26 22 - 29 mmol/L [facility] Anion Gap 12 12 - 20 [facility] Urea Nitrogen (BUN) 13 9 - 16 mg/dL [facility] Creatinine, Serum 0.95 0.5 - 1.4 mg/dL [facility] Estimated Glomerular Filt Rate >60 [facility] Comment:Chronic Kidney Disea se: Estimated GFR < 60 mL/min/1.95j9Cnqzbp Kidney Disease: Estimated GFR < 15 mL/min/1.73m2 Glucose 91 60 - 115 mg/dL [facility] Calcium 9.2 8.4 - 10.2 mg/dL [facility] Bilirubin, Total 0.2 0.0 - 1.0 mg/dL [facility] Aspartate Amino Transferase 18 5 - 31 U/L [facility] Alanine Aminotransferase 13 0 - 31 U/L [facility] Total Protein 7.9 6.5 - 8.0 g/dL [facility] Albumin Level 4.3 3.5 - 5.0 g/dL [facility] Alkaline Phosphatase 110 39 - 117 U/L [facility] 08/20/2025 3:43 PM EST 08/20/2025 5:52 PM EST us Generic External Data Provider LAB BLOOD ORDERAB LES Final Result [facility] [address] [place] [phone] * NM Gastric Emptying Solid (07/22/2025 8:49 AM EST) Anatomical Region Laterality Modality Body Nuclear Medicine 07/22/2025 8:49 AM EST Narrative 07/22/2025 12:20 PM EST [address] [address] Nuclear Medicine Report Signed Patient: Elaine Rodas MR#: [id number] : 1970 Acct:[id number] Age/Sex: 54 / F ADM Date: 07/22/25 Loc: [facility] Attending Dr: Bhavana RUSS Ordering Physician: Bhavana Vazquez Date of Service: 07/22/25 Procedure(s): VT gastric emptying study Accession Number(s): [id number] cc: Bhavana Vazquez; Mychal Long MD Reason [...] MD 07/22/2025 12:17 PM [facility] Dictated By: Jose Mcnamara MD Signed By: <Electronically signed by Jose Mcnamara MD in OV> 07/22/25 1217 DD/ 0849 TD/TT: 07/22/25 1200 Pattern Layout Worker: Procedure Note Donotuseinterpreter, Image - 07/22/[address] [address] Nuclear Medicine Report Signed Patient: Sebas Rodas#: [id number] : 1970Acct:[id number] Age/Sex: 54 / FADM Date: 07/22/25 Loc: [facility] Attending Dr: Bhavana RUSS Ordering Physician: Bhavana Vazquez Date of Service: 07/22/25 Procedure(s): NM gastric emptying study Accession Number(s): [id number] cc: Bhavana Vazquez; Mychal Long MD Reason [...] MD 07/22/2025 12:17 PM [facility] Dictated By: Jose Mcnamara MD Signed By: <Electronically signed by Jose Mcnamara MD in OV> 07/22/25 1217 DD/ 0849 TD/TT: 07/22/25 1200 Pattern Layout Worker: [facility] External Provider IMG NM PROCEDURES Final Result * XR Chest 2 Views (06/30/2025 10:11 AM EDT) Anatomical Region Laterality Modality Chest Radiographic Hilda ging 06/30/2025 10:1 1 AM EDT Narrative 06/30/2025 10:18 AM EDT [address] [address] XRay Report Signed Patient: Elaine Rodas MR#: [id number] : 1970 Acct:[id number] Age/Sex: 54 / F ADM Date: 06/30/25 Loc: HO.HHCL Attending Dr: Mychal Long MD Ordering Physician: Mychal Long MD Date of Service: 06/30/25 Procedure(s): XR chest 2V Accession Number(s): [id number] cc: Mychal Long MD Reason for Exam: [...] 06/30/25 1015 DD/ 1011 TD/TT: 06/30/25 1011 Pattern Layout Worker: DORITA Procedure Note Donotuseinterpreter, Image - 06/30/2025 [place] [address] XRay Report Signed Patient: Sebas Rodas#: [id number] : 1970Acct:[id number] Age/Sex: 54 / FADM Date: 06/30/25 Loc: HO[facility] Attending Dr: Mychal Long MD Ordering Physician: Mychal Long MD Date of Service: 06/30/25 Procedure(s): XR chest 2V Accession Number(s): [id number] cc: Mychal Long MD Reason for Exam: [...] 06/30/25 1015 DD/ 1011 TD/TT: 06/30/25 1011 Pattern Layout Worker: DORITA us Mychal Morris MD IMG XR PROCEDURES Jhonatan mike Result - Final * T-SPOT??.TB (06/08/2025 2:31 PM EDT) [facility] T Spot TB Negative Negative [facility] Comment:A negative test resu lt [...] as aquantitative test. TS PANEL A 0 [facility] TS PANEL B 0 [facility] Negative Control Passed [facility] Positive Control Passed [facility] Comment:For additional infor lynda, please refer tohttp://education.[employer]/faq/CPQ088(This link is being provided for informational/educational purposes only.)THIS TEST WAS PERFORMED AT:[employer] [id number] [place] [phone] CALVILLO MD,PHD 06/08/2025 2:31 PM EDT 06/08/2025 2:31 PM EDT Generic External Data Provider LAB BLOOD ORDERAB LES Final Result Performing Organization Address City/[facility]/ZIP Co de Phone Number [facility] [address] [place] [phone] * Hypersensitivity Pneumonitis Screen (06/08/2025 2:31 PM EDT) Aspergillus fumigatus Ab NEGATIVE NEGATIVE [facility] Micropolyspora Faeni NEGATIVE NEGATIVE [facility] Drexel Serum Abs NEGATIVE NEGATIVE [facility] Thermoactinomyces candidus NEGATIVE NEGATIVE [facility] Thermoactinomyces vulgaris Ab NEGATIVE NEGATIVE [facility] Saccharomonospora viridis Ab NEGATIVE NEGATIVE [facility] Comment:This test was develo ped and its analytical performancecharacteristics have been determined by [employer].It has not been cleared or approved by the FDA. This assayhas been validated pursuant to the CLIA regulations and isused for clinical purposes.THIS TEST WAS PERFORMED AT:[employer] [id number] [place] [address]ZQUWSMICHAELA MORGAN MD,PHD,GIULIA 06/08/2025 2:31 PM EDT 06/08/2025 2:31 PM EDT us Generic External Data Provider LAB BLOOD ORDERAB LES Final Result Performing Organization Address City/[facility]/ZIP Co de Phone Number [facility] [address] [place] [phone] * Hepatitis C Ab (11/05/2024 3:21 PM EST) Hepatitis C Antibody Nonreactive Nonreactive [facility] Comment:Antibodies to HCV no t detected; does not exclude early acuteHCV infection. 11/05/2024 3:21 PM EST 11/05/2024 3:21 PM EST us Generic External Data Provider LAB BLOOD ORDERAB LES Final Result Performing Organization Address [facility] Co de Phone Number [facility] [address] [place] [address] [phone] * HIV-1/2 Antigen and Antibodies, Fourth Generation, with Reflexes (11/05/2024 3:21 PM EST) HIV AB/AG Nonreactive Nonreactive [facility] Comment:HIV-1 p24 Ag and/or HIV-1/HIV-2 Ab not detected.A test result that is nonreactive does not exclude thepossibility of exposure to or infection with HIV-1 and/orHIV-2. Nonreactive results in this assay for individualswith prior exposure to HIV-1 and/or HIV-2 may be due toantigen and antibody levels that are below the limit ofdetection of this assay.The [employer] HIV Ag/Ab Combo assay result andsupplemental assay results should be interpreted inconjunction with the patient's clinical presentation,history and other laboratory results. If the results areinconsistent with clinical evidence, additional testing issuggested to confirm the result. 11/05/2024 3:21 PM EST 11/05/2024 3:21 PM EST us Generic External Data Provider LAB BLOOD ORDERAB LES Final Result Performing Organization Address [facility] Co de Phone Number [facility] [address] [place] [phone] [phone] * BI Mammogram Screening Tomosynthesis Bilateral (10/29/2024 12:58 PM EST) Anatomical Region Laterality Modality Breast Bilateral Mammography 10/29/2024 12:5 8 PM EST Narrative 11/04/2024 12:41 PM EST [facility] [address] [place] [address] Mammography Report Signed Patient: Elaine Rodas MR#: [id number] : 1970 Acct:[id number] Age/Sex: 53 / F ADM Date: 10/29/24 Loc: HO.MAMMO Attending Dr: Mychal Long MD Ordering Physician: Syed Coreas MD Results: 1Negativ e Date of Service: 10/29/24 Follow Up: 1 Year From Orig inal Mammogram Procedure(s): MM tomosynthesis screening BI Accession Number(s): [id number] cc: Mychal Long MD; Syed Coreas MD [...] by: Shayy Connor DO 11/04/2024 12:38 PM [facility] Dictated By: Shayy Connor DO Signed By: <Electronically signed by Shayy Connor DO in OV> 11/04/24 1238 DD/ 1258 TD/TT: 10/29/24 1315 Pattern Layout Worker: Procedure Note Donotuseinterpreter, Image - 11/04/2024 [facility] [address] [place] [address] Dr. [place], [place] [address] Mammography Report Signed Patient: Elaine RodasMR#: [id number] : 1970Acct:[id number] Age/Sex: 53 / FADM Date: 10/29/24 Loc: HO.MAMMO Attending Dr: Mychal Long MD Ordering Physician: Syed Coreas MDResults: 1Negativ e Date of Service: 10/29/24Follow Up: 1 Year From [facility] ina Mammogram Procedure(s): MM tomosynthesis screening BI Accession Number(s): [id number] cc: Mychal Long MD; Syed Coreas MD [...] 11/04/24 1238 DD/ 1258 TD/TT: 10/29/24 1315 Pattern Layout Worker: us [facility] External Provider IMG BI PROCEDURES Final Result * HPV mRNA E6/E7 w/Reflex to HPV Genotypes 16, 18/45 (08/23/2023 2:22 PM EST) HPV nRNA E6/E7 Not Detected Not Detected [facility] Comment:Methodology: Transcr iption-Mediated AmplificationThis assay detects E6/E7 viral messenger RNA (mRNA) from 14high-risk HPV types (16,18,31,33,35,39,45,51,52,56,58,59,66,68).Cervical sources are required for HPV testing.If a vaginal source from a patient who has had atotal hysterectomy with removal of cervix wassubmitted, please contact the testing laboratoryfor alternative testing options.For additional information, please refer [email or web address] by [email or web address](This link if provided for information/educational purposes only.)THIS TEST WAS PERFORMED AT:[facility] [place] [phone] PRESSLEY MD HPV mRNA E6/E7 [facility] HPV 16 RNA [facility] HPV 18/45 RNA [facility] 08/23/2023 2:22 PM EST 08/24/2023 9:35 AM EST Cecily Schwab [facility] CYTOLOGY ORDERABLES F inal Result [facility] [address] [place] [address] [phone] * Pap Smear (08/23/2023 2:22 PM EST) Swab Cervix uteri structure / Unknown 08/23/2023 2:22 PM EST 08/24/2023 9:35 AM EST Narrative [facility] - 09/04/2023 1:23 PM EST ----- ------- Name: Elaine Rodas Age/Sex: 52/F : 1970 Unit#: [id number] Attend Dr: Re08/23/23 Status: PRE REF Location: HO.LNP Disch: ----- ------- SPEC : [id number] RECD: 08/24/23 STATUS: RICHARD SCHAEFER NUM: [id number] [place]: 08/23/[address] [facility] [address]: CECILY SCHWAB CNM ENTERED: 08/24/23 SP [...] 59, 66, 68) HPV testing performed by [facility], [place], [place]. See reference laboratory portion of the EMR for entire report. Clinical Information LMP: Postmenopausal Previous PAP test: Unknown date/findings Other history: Abnormal bleeding Material Received ThinPrep-Cervical ----- ------- Signed (signature on file) NATHAN Medrano (ASCP) 09/04/23 1323 ----- ------- END OF REPORT Cecily [facility] CYTOLOGY ORDERABLES F inal Result [facility] [address] [place] [address] [phone] * Colonoscopy (08/30/2022) Colonoscopy Normal Normal Historical Provider HEALTH MAINTENANCE Final Result from Last 3 Months or Most Recently Relevant to Health Maintenance Insurance [employer] Care Teams [employer] Relationship Specialty Start Date End Date Mychal Fields MD [address] [place] [address] PCP - General Internal Medicine 04/30/14 Hima Fam FNP [address] [place] [address] Nurse Practitioner Family Medicine 08/01/23 Rheumatology, [address] [place] [address] Rheumatology 06/30/25
--- OUTSIDE RECORDS SUMMARY | 2025-08-28 14:51 | XMS_ITS | Encounter Summary ---
Author Organization [employer] Address [address] [facility] 7t [place] [address] Care Team Providers Care Dramatic Teacher Name Role Phone Mychal Fields MD Primary Care Provide r Hima Fam Unavailable Unavailable Yaneth Dotson RN Unavailable [phone] Mckenzie Silverio Unavailable [facility] Unavailable [phone] Encounter Details Date Type Department Care Team (Late st Contact Info) Description 06/11/2023 Orders Only [facility] CH[facility] MED & PEDS [address] [place] [address] Veda Isabel LPN Social History Tobacco Use [...] documented as of this encounter Care Teams Dramatic Teacher Relationship Specialty Start Date End Date Mychal Fields MD [address] [place] [address] PCP - General Internal Medicine 04/30/14 Hima Fam FNP [address] [place] [address] Nurse Practitioner Family Medicine 08/01/23 Yaneth Dotson, ALAN [address] [place] [address] Registered Nurse Family Medicine 02/24/25 07/09/25 Mckenzie Silverio 02/24/25 07/20/[address] [place] [address] Rheumatology 06/30/25 [facility] 02/13/25 03/29/25 documented as of this encounter
--- OUTSIDE RECORDS SUMMARY | 2025-08-28 14:51 | XMS_ITS | Encounter Summary ---
Author Organization [employer] Address [address] [place] [address] 7t [place] [address] Care Team Providers Care Upward Bound Director Name Role Phone Mychal Fields MD Primary Care Provide r Hima Fam Unavailable Unavailable Yaneth Dotson RN Unavailable [phone] Mckenzie Silverio Unavailable [facility] Unavailable [phone] Reason for Visit * Reason Comments Med Change Request Encounter Details Date Type Department Care Team (Late st Contact Info) Description 10/19/2022 Refill [facility] MEDICINE [address] [place], [place] [phone] Mychal Fields MD [address] [place], [place] [phone] Fibromyalgia Social History Tobacco Use Types Packs/Day [...] documented as of this encounter Care Teams Upward Bound Director Relationship Specialty Start Date End Date Mychal Fields MD [address] [place] [address] PCP - General Internal Medicine 04/30/14 Hima Fam FNP [address] [place] [address] Nurse Practitioner Family Medicine 08/01/23 Yaneth Dotson, ALAN [address] [place] [address] Registered Nurse Family Medicine 02/24/25 07/09/25 Mckenzie Silverio 02/24/25 07/20/[address] [place] [address] Rheumatology 06/30/25 [facility] 02/13/25 03/29/25 documented as of this encounter
== END 2025-08-28 14:00 | disposition home or self-care (01) ==
LOC: HO.RHES 13:03
PROVIDERS: PCP Internal Medicine; Visit Provider Student in an Organized Health Care Education/Training Program
DX: M30.1 Polyarteritis with lung involvement [Churg-Strauss] (principal); D72.18 Eosinophilia in diseases classified elsewhere; M17.0 Bilateral primary osteoarthritis of knee; M25.561 Pain in right knee; M25.562 Pain in left knee
CPT/HCPCS: 20610

== ENCOUNTER → 2025-08-28 13:02 | Outpatient (BNVA) | payer MEDICAID, SELFPAY | PROVIDERS: PCP Internal Medicine; Visit Provider Student in an Organized Health Care Education/Training Program | DX: M30.1 Polyarteritis with lung involvement [Churg-Strauss] (principal); D72.18 Eosinophilia in diseases classified elsewhere; M17.0 Bilateral primary osteoarthritis of knee | CPT/HCPCS: 20610; J2003; J3301 ==

== ENCOUNTER 2025-09-09 09:18 | Outpatient (AMB) | payer MEDICAID, SELFPAY ==
--- NOTE | 2025-09-09 09:20 | A.OFFVIS_ITS ---
Intake Visit Reasons: 3M/microscopic hematuria/OAB/UA(SET) Intake Note: Patient is present for 3M/MICRHEMATURIA/OAB/UA Urology Medication:NONE Antibiotic Allergy:PENICILLINS,AMOXICILLIN Blood Thinner:NONE Meter And Service Line Inspector Required: Yes Meter And Service Line Inspector Services: Meter And Service Line Inspector Present Meter And Service Line Inspector Name: [id number] Allergies metronidazole Allergy (Severe, Verified 09/09/25 09:34) vomiting Penicillins Allergy (Mild, Verified 09/09/25 09:34) VAGINAL FUNGUS INFECTION lisinopril (LISINOPRIL) Allergy (Unknown, Verified 09/09/25 09:34) COUGH verapamil Allergy (Unknown, Verified 09/09/25 09:34) unknown amoxicillin Adverse Reaction (Verified 09/09/25 09:34) Unknown Medication List - Last Reconciled 09/09/25 by CALI Hidalgo-LATSAHA albuterol sulfate 90 mcg/actuation (Ventolin HFA) 2 puffs PO Q4H PRN amlodipine 10 mg PO DAILY blood pressure test kit-large As directed cholecalciferol (vitamin D3) (Vitamin D3) 25 mcg PO DAILY clonazepam 1 mg PO TID PRN dexlansoprazole (Dexilant) 60 mg PO DAILY 30 days famotidine (Pepcid) 40 mg PO BEDTIME PRN fluticasone furoate-vilanterol 200-25 mcg/dose (Breo Ellipta) 1 ea inhalation DAILY fluticasone propionate 50 mcg/actuation 1 spray intranasal BID hydrocortisone 2.5% (Proctosol HC) 1 appl [place] BID lidocaine 5% 5 patches topical DAILY anprrs-xkwvuvox-axuwmsi (pork) 24,000-76,000 -120,000 unit (Creon) 2 caps PO BID 30 days losartan 100 mg PO DAILY minoxidil 2.5 mg PO QAM nicotine (polacrilex) 2 mg buccal Q8H PRN ondansetron 4 mg PO BID-TID PRN sennosides (senna) 1-2 tabs qhs orally bedtime; 30 days solifenacin (Vesicare) 10 mg PO DAILY Held on 05/22/25. Instructions: pt not taking r/t dry mouth tramadol 100 mg (2 x 50 mg) PO TID 30 days zolpidem 10 mg PO BEDTIME PRN HPI Comments Details: Elaine is a very pleasant 54-year-old Hebrew-speaking female patient of Dr. Long. She has a past medical history of palpitations, fibromyalgia, depression, glaucoma, asthma, obstructive sleep apnea on CPAP managed through [facility], and hypertension. She presents to the office today for follow-up of her microscopic hematuria. In discussion with the patient today she reports to be doing and feeling well. She discusses having had surgical intervention for pulmonary issues she has been experiencing. She reports she follows up with provider here through [facility]. She discusses her ongoing issues with pleural effusions. She denies having had any bothersome urinary issues. In office urinalysis results reviewed with the patient today. No microscopic hematuria noted. Previous workup for microscopic hematuria has included CT urogram as well as in office cystoscopy. CT urogram 11/04 showed kidneys within normal limits. In office cystoscopy was performed by Dr. Kiel Thomas 04/03 that noted No suspicious bladder lesions observed. She does have a longstanding history of nicotine dependence for over the last 30 years. She reports she had stopped smoking for approximately 20 days status post surgical procedure however has started smoking and plans to quit tomorrow for the new year. We did discuss at length importance in doing so. Previous urine cytologies are as follows: Urine Cytology: 07/03, 03/04 Negative for high-grade urothelial carcinoma. Patient had previously trialed VESIcare to assist with potential bladder spasms however felt this caused her dry mouth and feels she has had no bothersome urinary issues and would like to continue with surveillance monitoring. She denies urinary urgency, urinary frequency, incontinence, nocturia, hematuria, dysuria, foul smelling urine, changes to urinary stream, flank pain, fever, and or chills. She is happy with her current voiding parameters. Office otherwise offers no other issues or concerns at this time. [facility] Medical History Dyspnea Urine incontinence Hematuria Right sided abdominal pain Chest discomfort Well woman exam Nausea Post-cholecystectomy syndrome Cataract, right eye Bilateral primary osteoarthritis of knee Gallstone pancreatitis Palpitations Fibromyalgia Depression Glaucoma HTN (hypertension) Surgical History S/P thoracotomy H/O colonoscopy History of tubal ligation Hx of carpal tunnel repair Hx of cholecystectomy Hx of knee surgery Family History Father Kidney disease Mother CVD (cardiovascular disease) Colon cancer Social History Household Members: None Housing: Apartment Are you a 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 tire care manager to a 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 other at home: Yes Do you presently have visiting nurse or other home services: No Alcohol intake: never Patient Tobacco Use Status: Current everyday Tobacco user Cigarette Packs Per Day: 0.5 Years Smoked: 30 service: No Current occupational status: disabled Female Reproductive History Menstrual Age of Menarche: 9 Review of Systems Const All systems reviewed & are unremarkable except as noted in HPI and below Physical Exam Const General: cooperative, healthy appearing, comfortable, no acute distress, well developed, alert and awake Nutritional Appearance: overweight Orientation/consciousness: patient oriented x3 Limitations: no limitations HEENT Head: Yes normal to inspection, Yes normocephalic and Yes atraumatic Ears: hearing grossly normal bilaterally Eyes General: appearance normal, both eyes and all related structures Neck Neck: Yes normal visual inspection and Yes trachea midline Chest Chest palpation & inspection: normal inspection of the chest Resp Effort & Inspection: normal respiratory effort and able to speak in complete sentences Cardio Rate: regular rate GI Inspection: Yes normal to inspection General: Yes no CVA tenderness Back/Spine/Pelvis Back: no CVA tenderness Skin General skin exam: no rashes or lesions noted Neuro General: patient oriented x3 Extrem General: Yes normal to inspection Psych Appearance: grossly normal and well kempt Mental Status: mental status grossly normal Speech and movement: Normal speech and movement present and Clear speech present Affect: normal affect Attitude: cooperative Thought process: Normal thought process present Thought content: Normal thought content present Insight: Fair insight present (Psych) Judgement: Fair judgement present (Psych) Assessment & Plan Assessment & Plan (1) Microscopic hematuria: Code(s): R31.29 - Other microscopic hematuria Category: Medical (2) OAB (overactive bladder): Code(s): N32.81 - Overactive bladder Category: Medical (3) Nicotine dependence: Code(s): F17.200 - Nicotine dependence, unspecified, uncomplicated Category: Medical Plan In office urinalysis results reviewed the patient today; as noted above. Previous urine cytology results reviewed with the patient today; as noted above. We did discussed potential causes of microscopic hematuria as well as further interventions and risks and benefits of these interventions. Stop VESIcare. Will continue with surveillance monitoring. She currently denies any bothersome urinary issues or concerns. She reports be happy with current voiding parameters. We discussed the importance of limiting/quitting nicotine dependence for overall health and well-being. All questions were answered Follow-up in 6 months with urinalysis; or sooner with any issues, concerns, and or questions. Orders: Orders AMB Urinalysis Automated Today Z13.9 - Encounter for screening, unspecified Urine Cytology Today R31.29 - Other microscopic hematuria Medications: Discontinued solifenacin (Vesicare) Discontinued Reason: Doctor's Order 10 mg PO DAILY 30 tabs 5RF Patient Instructions: The patient had an opportunity to ask questions regarding the treatment plan. All questions were answered. Physical exam, labs, and imaging were discussed and reviewed in detail. As well as risks, benefits, and discussion of treatment choices. No major barriers to understanding were identified. The patient expressed understanding and agreement with the above treatment plan. The patient was made aware they should contact our office by phone for worsening of their current condition, the appearance of new symptoms, or with any questions or concerns. Compliance is encouraged with any medications and follow up testing that is ordered. It is a privilege to be allowed the opportunity to participate in? your urological care.? Again, if you have any questions or concerns If you have any questions or concerns please do not hesitate to contact me. The office is [phone]. This note is constructed using voice recognition software. While every effort has been made to ensure accuracy fine arts teacher errors may have been included. Yours sincerely, ROSA Hidalgo Coding Level of Care Code Est Pt Level 3 (24343) Add On Problem Visit Only Diagnoses Microscopic hematuria R31.29 OAB (overactive bladder) N32.81 Nicotine dependence F17.200
--- OUTSIDE RECORDS SUMMARY | 2025-09-09 09:31 | XMS_ITS | Encounter Summary ---
Author Organization [employer] Address [address] [place] [address] 7t [place] [address] Care Team Providers Care Capability Lead Name Role Phone Mychal Fields MD Primary Care Provide r Hima Fam Unavailable Unavailable Yaneth Dotson RN Unavailable [phone] Mckenzie Silverio Unavailable [facility] Unavailable [phone] Encounter Details Date Type Department Care Team ([facility] st Contact Info) Description 12/05/2022 Orders Only [facility] CHC MED & PEDS [address] [place], [place] [phone] Veda Isabel LPN Social History Tobacco Use [...] documented as of this encounter Care Teams Capability Lead Relationship Specialty Start Date End Date Mychal Fields MD [address] [place] [address] [phone] PCP - General Internal Medicine 04/30/14 Hima Fam FNP [address] [place] [address] Nurse Practitioner Family Medicine 08/01/23 Yaneth Dotson, ALAN [address] [place] [address] Registered Nurse Family Medicine 02/24/25 07/09/25 Mckenzie Silverio 02/24/25 07/20/[address] [place], [place] [phone] Rheumatology 06/30/25 [employer] [facility] 02/13/25 03/29/25 documented as of this encounter
--- OUTSIDE RECORDS SUMMARY | 2025-09-09 09:31 | XMS_ITS | Encounter Summary ---
Author Organization [employer] Address [address] [place] [address] 7t [place] [address] Care Team Providers Care Radiator Mechanic Name Role Phone Mychal Fields MD Primary Care Provide r Hima Fam Unavailable Unavailable Mckenzie Silverio Unavailable [facility] Unavailable [phone] Reason for Visit * Reason Onset Date Comments Med Refill 07/16/2025 Encounter Details Date Type Department Care Team ([facility] st Contact Info) Description 07/16/2025 Telephone [facility] MEDICINE [address] [place], [place] [phone] Mychal Fields MD [address] [place], [place] [phone] Med Refill Social History Tobacco Use Types [...] 10 MG tablet To be sent to: [id number] [address] documented in this encounter Plan of Treatment Not on file documented as of this encounter Visit Diagnoses Not on filedocumented in this encounter Additional Health Concerns Assessment Noted Time PHQ-9 Depression Total Score: 15 025 12:51 PM EDT documented as of this encounter Care Teams Radiator Mechanic Relationship Specialty Start Date End Date Mychal Fields MD [address] [place] [address] PCP - General Internal Medicine 04/30/14 Hima Fam FNP [address] [place] [address] Nurse Practitioner Family Medicine 08/01/23 Mckenzie Silverio 02/24/25 07/20/[address] [place] [address] Rheumatology 06/30/25 documented as of this encounter
--- OUTSIDE RECORDS SUMMARY | 2025-09-09 09:31 | XMS_ITS | Encounter Summary ---
Author Organization [employer] Address [address] [place] [address] 7t [place] [address] Care Team Providers Care Vp Global Name Role Phone Mychal Fields MD Primary Care Provide r Hima Fam Unavailable Unavailable Yaneth Dotson RN Unavailable [phone] Mckenzie Silverio Unavailable [facility] Unavailable [phone] Reason for Visit * Reason Comments Med Refill Encounter Details Date Type Department Care Team (Late st Contact Info) Description 07/27/2023 Refill [facility] MEDICINE [address] [place], [place] [phone] Mychal Fields MD [address] [place], [place] [phone] Social History Tobacco Use Types Packs/Day Years [...] documented as of this encounter Care Teams Vp Global Relationship Specialty Start Date End Date Mychal Fields MD [address] [place] [address] PCP - General Internal Medicine 04/30/14 Hima Fam FNP [address] [place] [address] Nurse Practitioner Family Medicine 08/01/23 Yaneth Dotson RN [address] [place] [address] Registered Nurse Family Medicine 02/24/25 07/09/25 Mckenzie Silverio 02/24/25 07/20/[address] [place] [address] Rheumatology 06/30/25 [facility] [facility] 02/13/25 03/29/25 documented as of this encounter
--- OUTSIDE RECORDS SUMMARY | 2025-09-09 09:31 | XMS_ITS | Encounter Summary ---
Author Organization [employer] Address [address] [place] [address] 7t [place] [address] Care Team Providers Care Senior Investigator Name Role Phone Mychal Fields MD Primary Care Provide r Hima Fam Unavailable Unavailable Yaneth Dotson RN Unavailable [phone] Mckenzie Silverio Unavailable [facility] Unavailable [phone] Encounter Details Date Type Department Care Team ([facility] st Contact Info) Description 12/04/2022 Telephone [facility] MEDICINE [address] [place], [place] [phone] Mychal Fields MD [address] [place], [place] [phone] Social History Tobacco Use Types Packs/Day Years [...] as of this encounter Care Teams Senior Investigator Relationship Specialty Start Date End Date Mychal Fields MD [address] [place] [address] PCP - General Internal Medicine 04/30/14 Hima Fam FNP [address] [place] [address] Nurse Practitioner Family Medicine 08/01/23 Yaneth Dotosn, ALAN [address] [place] [address] Registered Nurse Family Medicine 02/24/25 07/09/25 Mckenzie Silverio 02/24/25 07/20/[address] [place] [address] Rheumatology 06/30/25 [facility] [facility] 02/13/25 03/29/25 documented as of this encounter
--- OUTSIDE RECORDS SUMMARY | 2025-09-09 09:31 | XMS_ITS | Encounter Summary ---
Author Organization [employer] Address [address] [place] [address] 7t [place] [address] Care Team Providers Care Public Relations Supervisor Name Role Phone Mychal Fields MD Primary Care Provide r Hima Fam Unavailable Unavailable Yaneth Dotson RN Unavailable [phone] Mckenzie Silverio Unavailable [facility] Unavailable [phone] Reason for Visit * Reason Comments Med Refill Encounter Details Date Type Department Care Team (Late st Contact Info) Description 07/27/2023 Refill [facility] MEDICINE [address] [place], [place] [phone] Mychal Fields MD [address] [place], [place] [phone] Social History Tobacco Use Types Packs/Day Years [...] of this encounter Care Teams Public Relations Supervisor Relationship Specialty Start Date End Date Mychal Fields MD [address] [place] [address] PCP - General Internal Medicine 04/30/14 Hima Fam FNP [address] [place] [address] Nurse Practitioner Family Medicine 08/01/23 Yaneth Dotson RN [address] [place] [address] Registered Nurse Family Medicine 02/24/25 07/09/25 Mckenzie Silverio 02/24/25 07/20/[address] [place] [address] Rheumatology 06/30/25 [facility] 02/13/25 03/29/25 documented as of this encounter
--- OUTSIDE RECORDS SUMMARY | 2025-09-09 09:31 | XMS_ITS | Encounter Summary ---
Author Organization [employer] Address [address] [place] [address] 7t [place] [address] Care Team Providers Care Parer Name Role Phone Mychal Fields MD Primary Care Provide r Hima Fam Unavailable Unavailable Yaneth Dotson RN Unavailable [phone] Mckenzie Silverio Unavailable [facility] Unavailable [phone] Reason for Visit * Reason Comments Med Refill Encounter Details Date Type Department Care Team (Late st Contact Info) Description 10/06/2024 Refill [facility] CH[facility] MED & PEDS [address] [place], [place] [phone] Mychal Fields MD [address] [place], [place] [phone] Anxiety and depression Social History Tobacco Use [...] documented as of this encounter Care Teams Parer Relationship Specialty Start Date End Date Mychal Fields MD [address] [place] [address] PCP - General Internal Medicine 04/30/14 Hima Fam FNP [address] [place], [place] Nurse Practitioner Family Medicine 08/01/23 Yaneth Dotson, ALAN [address] [place] [address] Registered Nurse Family Medicine 02/24/25 07/09/25 Mckenzie Silverio 02/24/25 07/20/25 Rheumatology, [address] [place] [address] Rheumatology 06/30/25 [facility] 02/13/25 03/29/25 documented as of this encounter
--- OUTSIDE RECORDS SUMMARY | 2025-09-09 09:31 | XMS_ITS | Encounter Summary ---
Author Organization [employer] Address [address] [place] [address] 7t [place] [address] Care Team Providers Care Forestry Support Specialist Name Role Phone Mychal Fields MD Primary Care Provide r Hima Fam Unavailable Unavailable Yaneth Dotson RN Unavailable [phone] Mckenzie Silverio Unavailable [facility] Unavailable [phone] Reason for Visit * Reason Comments Med Change Request Encounter Details Date Type Department Care Team (Late st Contact Info) Description 10/19/2022 Refill [facility] MEDICINE [address] [place], [place] [phone] Mychal Fields MD [address] [place], [place] [phone] Fibromyalgia Social History Tobacco Use Types Packs/Day [...] documented as of this encounter Care Teams Forestry Support Specialist Relationship Specialty Start Date End Date Mychal Fields MD [address] [place] [address] PCP - General Internal Medicine 04/30/14 Hima Fam FNP [address] [place] [address] Nurse Practitioner Family Medicine 08/01/23 Yaneth Dotson, ALAN [address] [place] [address] Registered Nurse Family Medicine 02/24/25 07/09/25 Mckenzie Silverio 02/24/25 07/20/[address] [place] [address] Rheumatology 06/30/25 [facility] 02/13/25 03/29/25 documented as of this encounter
--- OUTSIDE RECORDS SUMMARY | 2025-09-09 09:31 | XMS_ITS | Encounter Summary ---
Author Organization [employer] Address [address] [facility] [address] [place] [address] Care Team Providers Care Flume Ride Operator Name Role Phone Mychal Fields MD Primary Care Provide r Hima Fam Unavailable Unavailable Yaneth Dotson RN Unavailable [phone] Mckenzie Silverio Unavailable [facility] Unavailable [phone] Encounter Details Date Type Department Care Team (Late st Contact Info) Description 06/11/2023 Orders Only [facility] [address] [place] [address] Veda Isabel LPN Social History Tobacco Use [...] documented as of this encounter Care Teams Flume Ride Operator Relationship Specialty Start Date End Date Mychal Fields MD [address] [place] [address] PCP - General Internal Medicine 04/30/14 Hima Fam FNP [address] [place] [address] Nurse Practitioner Family Medicine 08/01/23 Yaneth Dotson, ALAN [address] [place] [address] Registered Nurse Family Medicine 02/24/25 07/09/25 Mckenzie Silverio 02/24/25 07/20/[address] [place] [address] Rheumatology 06/30/25 [facility] 02/13/25 03/29/25 documented as of this encounter
--- OUTSIDE RECORDS SUMMARY | 2025-09-09 09:31 | XMS_ITS | Encounter Summary ---
Author Organization [employer] Address [address] [place] [address] [address] [place] [address] Care Team Providers Care Emergency Preparedness Manager Name Role Phone Mychal Fields MD Primary Care Provide r Hima Fam Unavailable Unavailable Yaneth Dotson RN Unavailable [phone] Mckenzie Silverio Unavailable [facility] Unavailable [phone] Reason for Visit * Reason Comments Med Refill Encounter Details Date Type Department Care Team (Late st Contact Info) Description 10/05/2022 Refill [facility] [address] [place] [address] Hima Fam FNP Anxiety state Social History [...] unspecified documented in this encounter Care Teams Emergency Preparedness Manager Relationship Specialty Start Date End Date Mychal Fields MD [address] [place] [address] PCP - General Internal Medicine 04/30/14 Hima Fam FNP [address] [place] [address] Nurse Practitioner Family Medicine 08/01/23 Yaneth Dotson, ALAN [address] [place] [address] Registered Nurse Family Medicine 02/24/25 07/09/25 Mckenzie Silverio 02/24/25 07/20/[address] [place] [address] Rheumatology 06/30/25 [facility] 02/13/25 03/29/25 documented as of this encounter
--- OUTSIDE RECORDS SUMMARY | 2025-09-09 09:31 | XMS_ITS | Clinical Summary ---
Author Organization [employer] Address [address] [facility] [address] [place] [address] Care Team Providers Care Money Manager Name Role Phone Mychal Fields MD Primary Care Provide r Hima Fam Unavailable Unavailable [facility] Unavailable [phone] Allergies Active Allergy Reactions Criticality Noted Date [...] every 30 (thirty) days. 024 Active rizatriptan CALIBRATION TESTER (Maxalt-CALIBRATION TESTER) 5 MG disintegrating tablet 024 Active varenicline [...] bedtime for sleep. 30 tablet 025 Active cholecalciferol (Vitamin D-3) 25 MCG [...] Hematology by Pulmonology due to marked eosinophilia. Mind Reader ordered a work up to rule out Vasculitis. C-ANCA was negative but Positive Proteinase 3 antibody. Significance? 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 I will ask our team RNS to [...] (06/30/2025 9:44 AM EDT): Pt evaluated at [facility] 05/29/2025 As part of her ER evaluation [...] was evaluated by Dr. Wynn at our [facility] who recommended to check D dimer [...] We are trying to get her to [facility] before the lab and xray close but [...] reports she has [facility], notes not available at this time Hair [...] EDT): Pelvis exam indicative of this Plan: CREDENTIALING ASSISTANT referral Analy vaginitis 06/26/2023 Assessment & Plan [...] significant eosinophils possibly related to hypereosinophilic conditions. Mind Reader referred to hematology for further evaluation. They [...] no good results, cannot tolerate NSAIDS [facility] neurology is not accepting new patients at the moment. Will try to refer to a different Neurologist perhaps at [facility] Assessment & Plan (01/17/2024 1:06 [...] also be referring to Neurology at [facility] Assessment & Plan (04/03/2023 [...] who retired Pt has a therapist at [facility] I recommended she speak with therapist about referral to agency psychiatrist, unfortunatelly they do not have any availability In the meantime I will manage medications if necessary. Plan: Continue: clonazePAM (KlonoPIN) 1 MG tablet hydrOXYzine HCl (Atarax) 25 MG tablet zolpidem (Ambien) 10 MG tablet Will refer to our large animal husbandry technician Assessment & Plan (05/15/2024 1:34 PM EDT): Patient has tried many different antidepressants and mood stabilizers but she was intolerant of everything. She is doing reasonably well. Her panic attacks respond to Hydroxyzine 25 mg prn. She takes Clonazepam 1 mg TID prn. And Ambien 10 mg at bedtime. This was prescribed by Hima Fam who recently retired Pt has a therapist at [facility] I recommended she speak with therapist [...] necessary. For any issues or concerns, contact [facility]. All her questions were answered and [...] to be under the care of clinical specialist vascular who had been prescribing Baclofen Assessment & [...] to be under the care of clinical specialist vascular who had been prescribing tramadol 100mg PO [...] impingement. Pt was seen at [facility] 04/2023 and has a follow up appointment [...] impingement. Pt was seen at [facility] recently has a follow up recommended PT [...] Pt will be referred to [facility] Smoker 02/21/2012 Assessment & Plan (04/03/2023 1:41 PM EDT): Pt smoking 1 ppd. Changiovany has used it in the past with [...] Data 08/18/2025 2:15 PM EST Office Visit [address] [address] Mychal Fields MD Essential hypertension (Primary Dx); Low vitamin D level; Anxiety and depression; Class 2 severe obesity due to excess calories with serious comorbidity and body mass index (BMI) of 36.0 to 36.9 in adult; Dietary counseling; Exercise counseling; Encounter for immunization 08/18/2025 Travel 08/13/[address] [address] Mychal Fields MD CHART PREP 08/07/[address] [address] Mychal Fields MD 07/27/[address] [address] Mychal Fields MD Call Back Request 07/24/2025 2:00 PM EST Office Visit [address] [address] Manjeet Deluca MD Androgenic alopecia (Primary Dx); 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 Travel 07/22/2025 Orders Only [facility] External Provider, [facility] 07/20/2025 Patient Outreach [address] [address] Mychal Fields MD Care Coordination (SDOH f/u) 07/16/[address] [address] Mychal Fields MD Med Refill 07/14/[address] [address] Bette Wynn MD Anxiety and depression 07/11/2025 Refill [facility] [address] [place] [address] Mychal Fields MD Anxiety and depression 07/09/2025 Patient Outreach [address] [address] Mychal Fields MD Care Management (C3CM- f/u call lvm) 07/03/2025 Patient Outreach [address] [address] Mychal Fields MD Care Coordination (PT1) 07/02/[address] [address] Mychal Fields MD 06/30/2025 9:15 AM EDT Office Visit [address] [address] Mychal Fields MD Dizzy spells (Primary Dx); Analy vaginitis; Irritable bowel syndrome with both constipation and diarrhea; Restrictive lung disease; Anemia due to other cause, not classified; Essential hypertension; Positive MAURICE (antinuclear antibody); Pneumonia of both lower lobes due to infectious organism 06/30/[address] [address] Christie Contreras, ALAN Interoffice Coordination 06/30/2025 Travel 06/29/2025 Patient Outreach [address] [address] Mychal Fields MD Care Coordination (Triage) 06/26/2025 Patient Outreach [address] [address] Mychal Fielsd MD Care Coordination (PT1) 06/26/2025 Patient Outreach [address] [address] Mychal Fields MD Care Management (C3CM- f/u call) 06/15/2025 Patient Outreach [address] [address] Mychal Fields MD Care Management (C3CM- f/u call lvm) 06/15/2025 Patient Outreach [address] [phone] Mychal Fields MD Care Coordination (PT1 f/u) 06/11/2025 Refill [facility] [address] [place] [address] Mychal Fields MD Anxiety and depression 06/10/2025 Patient Outreach [facility] [address] [place] [address] Mychal Fields MD Care Coordination (SDOH f/u) 06/09/2025 Refill [facility] PEDS [address] [place] [address] Noemy Frye RN Anxiety and depression 06/09/2025 Telephone [facility] [address] [place] [address] Mychal Fields MD Med Refill 06/09/2025 Patient Outreach [facility] [address] [place] [address] Mychal Fields MD Care Management (C3CM- f/u call lvm) from Last 3 Months [...] both lower lobes due to infectious organism HEPATITIS C ANTIBODY Routine 11/05/2024 3:21 PM [...] 11:38 AM EST) Triglycerides 95 <150 mg/dL [facility] Comment:Desirable Triglyceri de: less than 150 mg/dLBorderline High Triglyceride 150-199 mg/dLHigh Triglyceride: 200-499 mg/dLVery High Triglyceride: greater than or equal to 5OO mg/dL Cholesterol 198 <200 mg/dL [facility] Comment:Desirable Cholestero l: less than 200 mg/dLBorderline High Cholesterol: 200-239 mg/dLHigh Cholesterol: greater than 239 mg/dL LDL Cholesterol Calculated 124(H) <100 mg/dL [facility] Comment:Desirable LDL: less than 100 mg/dLNear Optimal/Above Optimal LDL: 110- 129 mg/dLBorderline High LDL: 130-159 mg/dLHigh LDL: 160-189 mg/dLVery High LDL: greater than or equal to 190 mg/dL HDL Cholesterol 55 >40 mg/dL [facility] Comment:Desirable HDL: great er than 40 mg/dL Note: This HDL assay may give artificially low results in patients with liver disease. Blood Venous blood specimen / Unknown 08/21/2025 11:38 AM EST 08/21/2025 11:38 AM EST us Mychal Morris MD LAB BLOOD ORDERABLES Final Result [facility] [address] [place] [address] [phone] * (ABNORMAL) ANCA Vasculitides (08/20/2025 3:43 PM EST) Myeloperoxidase Antibody <1.0 [facility] Comment:Value Interpretation ----- <1.0 No Antibody Detected > or = 1.0 Antibody DetectedAutoantibodies to myeloperoxidase (MPO) are commonlyassociated with the following small-vesselvasculitides: microscopic polyangiitis,polyarteritis nodosa, Churg-Faheem syndrome,necrotizing and crescentic glomerulonephritis andoccasionally granulomatosis with polyangiitis(GPA, Jensen's). The perinuclear IFA pattern,(p-ANCA) is based largely on autoantibody tomyeloperoxidase which serves as the primary antigen.These autoantibodies are present in active disease. Proteinase-3 Antibody 13.9(A) [facility] Comment:Since patient sera m ay contain heterogeneous antibodypopulations, caution should be utilized in interpretingresults >8.0 due to varying degrees of non-linearity. Value Interpretation ----- <1.0 No Antibody Detected > or = 1.0 Antibody DetectedAutoantibodies to proteinase-3 (HI-3) are accepted ascharacteristic for granulomatosis with polyangiitis(GPA, Jensen's), and are detectable in 95% of thehistologically proven cases. The cytoplasmic IFApattern, (c-ANCA), is based largely on autoantibody toPR-3 which serves as the primary antigen.These autoantibodies are present in active disease.THIS TEST WAS PERFORMED AT:[facility] [place] [phone] PRESSLEY MD 08/20/2025 3:43 PM EST 08/20/2025 5:52 PM EST Generic External Data Provider LAB BLOOD ORDERAB LES Final Result Performing Organization Address [facility] Co de Phone Number [facility] [address] [place] [phone] * (ABNORMAL) Protein Creatinine Ratio, Urine (08/20/2025 3:43 PM EST) Creatinine, Urine 402.22 mg/dL [facility] Protein, Total, Random Urine 18(H) <12 mg/dL [facility] Protein/Creati nine Ratio, Ur 0.04 <0.2 [facility] Comment:The spot urine prote in:creatinine ratio may increase to 0.3during normal . 08/20/2025 3:43 PM EST 08/20/2025 5:48 PM EST Generic External Data Provider LAB URINE ORDERAB LES Final Result Performing Organization Address [facility] de Phone Number [facility] [address] [place] [phone] * (ABNORMAL) CBC auto differential (08/20/2025 3:43 PM EST) Only the most recent of2 resultswithin the time period is included. White Blood Count 8.1 4.8 - 10.8 X10*3/uL [facility] Red Blood Count 4.52 4.20 - 5.50 X10*6/uL [facility] Hemoglobin 13.0 12.0 - 16.0 g/dl [facility] Hematocrit 40.0 37.0 - 47.0 % [facility] Mean Corpuscular Volume 88.5 80.0 - 98.0 fL [facility] Mean Corpuscular Hemoglobin 28.8 27.0 - 33.0 pg [facility] Mean Corpuscular HGB Conc 32.5 31.0 - 35.0 g/dl [facility] Red Cell Distribution Width 14.3 11.0 - 16.0 % [facility] Platelet Count 298 160 - 400 X10*3/uL [facility] Mean Platelet Volume 10.2 9.4 - 12.3 fL [facility] Neutrophils Percent Auto 49.5 45 - 73 % [facility] Imm Gran Pct Auto 0.2 0.0 - 0.4 % [facility] Lymphocytes Percent Auto 42.2(H) 20 - 40 % [facility] Monocytes Percent Auto 5.2 2 - 11 % [facility] Eosinophils Percent Auto 2.0 0 - 4 % [facility] Basophils Percent Auto 0.9 0 - 2 % [facility] NRBC Pct Auto 0.0 0.0 - 0.2 /100WBC [facility] Neutrophils Absolute Auto 4.0 2.0 - 8.3 x10*3/uL [facility] Imm Gran Abs Auto 0.02 0.00 - 0.03 X10*3/uL [facility] Lymphocytes Absolute Auto 3.4 1.2 - 4.9 X10*3/uL [facility] Monocytes Absolute Auto 0.4 0.1 - 1.2 X10*3/uL [facility] Eosinophils Absolute Auto 0.2 0.0 - 0.4 X10*3/uL [facility] Basophils Absolute Auto 0.1 0.0 - 0.2 X10*3/uL [facility] NRBC Abs Auto 0.000 0.0 - 0.012 X10*3/uL [facility] 08/20/2025 3:43 PM EST 08/20/2025 5:52 PM EST us Generic External Data Provider LAB BLOOD ORDERAB LES Final Result [facility] [address] [place] [phone] * Urinalysis Complete (08/20/2025 3:43 PM EST) Color Urine Yellow [facility] Appearance Urine Turbid [facility] PH 6.0 5.0 - 9.0 [facility] Glucose Urine UA Negative Negative mg/dL [facility] Urine Blood Negative Negative [facility] Specific [place] - Urine 1.020 1.005 - 1.025 [facility] Urine Protein Trace Neg-Trace mg/dL [facility] Urine Ketones Trace Negative mg/dL [facility] Nitrite Urine Negative Negative [facility] Leukocyte Esterase Urine Negative Negative [facility] RBC Urine 0-2 0 - 2 /HPF [facility] Urine WBC 0-5 0 - 5 /HPF [facility] Urine Squamous Epithelial Cell 0-2 0 - 2 /HPF [facility] CALCIUM OXALATE CRYSTAL, UR Present [facility] Urine Bacteria None Seen None Seen [facility] Hyaline Casts, Urine 3-5 0 - 2 /LPF [facility] 08/20/2025 3:43 PM EST 08/20/2025 5:48 PM EST us Generic External Data Provider LAB URINE ORDERAB LES Final Result Performing Organization Address City/[facility] Co de Phone Number [facility] [address] [place] [phone] * Sed Rate by Modified Annabelleren (08/20/2025 3:43 PM EST) Erythrocyte Sedimentation Rate 25 1 - 30 MM/HR [facility] Comment:Patients with polycy themia and many hemoglobin abnormalitiesmay have depressed sed rates whereas patients with anemiamay have elevated sed rates. 08/20/2025 3:43 PM EST 08/20/2025 5:52 PM EST us Generic External Data Provider LAB BLOOD ORDERAB LES Final Result Performing Organization Address City/[facility]/ZIP Co de Phone Number [facility] [address] [place] [address] [phone] * (ABNORMAL) C-reactive Protein (08/20/2025 3:43 PM EST) Pathologist [facility] C Reactive Protein 1.05(H) < or = 0.50 mg/dL [facility] 08/20/2025 3:43 PM EST 08/20/2025 5:52 PM EST us Generic External Data Provider LAB BLOOD ORDERAB LES Final Result [facility] [address] [place] [phone] * Comprehensive Metabolic Panel (08/20/2025 3:43 PM EST) [facility] Sodium 142 135 - 145 mmol/L [facility] Potassium 3.7 3.3 - 5.1 mmol/L [facility] Chloride 108 96 - 108 mmol/L [facility] Carbon Dioxide 26 22 - 29 mmol/L [facility] Anion Gap 12 12 - 20 [facility] Urea Nitrogen (BUN) 13 9 - 16 mg/dL [facility] Creatinine, Serum 0.95 0.5 - 1.4 mg/dL [facility] Estimated Glomerular Filt Rate >60 [facility] Comment:Chronic Kidney Disea se: Estimated GFR < 60 mL/min/1.34m5Ikslfg Kidney Disease: Estimated GFR < 15 mL/min/1.73m2 Glucose 91 60 - 115 mg/dL [facility] Calcium 9.2 8.4 - 10.2 mg/dL [facility] Bilirubin, Total 0.2 0.0 - 1.0 mg/dL [facility] Aspartate Amino Transferase 18 5 - 31 U/L [facility] Alanine Aminotransferase 13 0 - 31 U/L [facility] Total Protein 7.9 6.5 - 8.0 g/dL [facility] Albumin Level 4.3 3.5 - 5.0 g/dL [facility] Alkaline Phosphatase 110 39 - 117 U/L [facility] 08/20/2025 3:43 PM EST 08/20/2025 5:52 PM EST us Generic External Data Provider LAB BLOOD ORDERAB LES Final Result Performing Organization Address City/State/[facility] Co de Phone Number [facility] [address] [place] [phone] * NM Gastric Emptying Solid (07/22/2025 8:49 AM EST) Anatomical Region Laterality Modality Body Nuclear Medicine 07/22/2025 8:49 AM EST Narrative 07/22/2025 12:20 PM EST [address] [address] Nuclear Medicine Report Signed Patient: Elaine Rodas MR#: [id number] : 1970 Acct:[id number] Age/Sex: 54 / F ADM Date: 07/22/25 Loc: PETER Attending Dr: Bhavana RUSS Ordering Physician: Bhavana Vazquez Date of Service: 07/22/25 Procedure(s): NM gastric emptying study Accession Number(s): [id number] cc: Bhavana Vazquez; Mychal Long MD Reason [...] by: Jose Mcnamara MD 07/22/2025 12:17 PM [facility] Dictated By: Jose Mcnamara MD Signed By: <Electronically signed by Jose Mcnamara MD in OV> 07/22/25 1217 DD/ 0849 TD/TT: 07/22/25 1200 Early Years Teacher: Procedure Note Donotuseinterpreter, Image - 07/22/2025 [place] [address] Nuclear Medicine Report Signed Patient: Elaine Rodas#: [id number] : 1970Acct:[id number] Age/Sex: 54 / FADM Date: 07/22/25 Loc: PETER Attending Dr: Bhavana RUSS Ordering Physician: Bhavana Vazquez Date of Service: 07/22/25 Procedure(s): NM gastric emptying study Accession Number(s): [id number] cc: Bhavana Vazquez; Mychal Long MD Reason [...] grading per JNMT Consensus Recommendations in 2008 (https://tech.snmjournals.org/content/36/1/44) Grade 1 (mild retention): 11-20% at 4h Grade 2 (moderate retention): 21-35% at 4h Grade 3 (severe retention): 36-50% at 4h Grade 4 (very severe retention): >50% retention at 4h Electronically signed by: Jose Mcnamara MD 07/22/2025 12:17 PM [facility] Dictated By: Jose Mcnamara MD Signed By: <Electronically signed by Jose Mcnamara MD in OV> 07/22/25 1217 DD/ 0849 TD/TT: 07/22/25 1200 Early Years Teacher: [facility] External Provider IMG NM PROCEDURES Final Result * XR Chest 2 Views (06/30/2025 10:11 AM EDT) Anatomical Region Laterality Modality Chest Radiographic Hilda ging 06/30/2025 10:1 1 AM EDT Narrative 06/30/2025 10:18 AM EDT [address] [address] XRay Report Signed Patient: Elaine Rodas MR#: [id number] : 1970 Acct:[id number] Age/Sex: 54 / F ADM Date: 06/30/25 Loc: HO.HHCL Attending Dr: Mychal Long MD Ordering Physician: Mychal Long MD Date of Service: 06/30/25 Procedure(s): XR chest 2V Accession Number(s): [id number] cc: Mychal Long MD Reason for Exam: [...] 06/30/25 1015 DD/ 1011 TD/TT: 06/30/25 1011 Early Years Teacher: DORITA Procedure Note Donotuseinterpreter, Image - 06/30/[address] [address] XRay Report Signed Patient: Elaine RodasMR#: [id number] : 1970Acct:[id number] Age/Sex: 54 / FADM Date: 06/30/25 Loc: HO.HHCL Attending Dr: Mychal Long MD Ordering Physician: Mcyhal Long MD Date of Service: 06/30/25 Procedure(s): XR chest 2V Accession Number(s): [id number] cc: Mychal Long MD Reason for Exam: [...] 06/30/25 1015 DD/ 1011 TD/TT: 06/30/25 1011 Early Years Teacher: DORITA us Mychal Morris MD IMG XR PROCEDURES Jhonatan mike Result - Final * Hepatitis C Ab (11/05/2024 3:21 PM EST) Hepatitis C Antibody Nonreactive Nonreactive [facility] Comment:Antibodies to HCV no t detected; does not exclude early acuteHCV infection. 11/05/2024 3:21 PM EST 11/05/2024 3:21 PM EST us Generic External Data Provider LAB BLOOD ORDERAB LES Final Result [facility] [address] [place] [phone] * HIV-1/2 Antigen and Antibodies, Fourth Generation, with Reflexes (11/05/2024 3:21 PM EST) HIV AB/AG Nonreactive Nonreactive [facility] Comment:HIV-1 p24 Ag and/or HIV-1/HIV-2 Ab not detected.A test result that is nonreactive does not exclude thepossibility of exposure to or infection with HIV-1 and/orHIV-2. Nonreactive results in this assay for individualswith prior exposure to HIV-1 and/or HIV-2 may be due toantigen and antibody levels that are below the limit ofdetection of this assay.The [employer] Unzipped HIV Ag/Ab Combo assay result andsupplemental assay results should be interpreted inconjunction with the patient's clinical presentation,history and other laboratory results. If the results areinconsistent with clinical evidence, additional testing issuggested to confirm the result. 11/05/2024 3:21 PM EST 11/05/2024 3:21 PM EST us Generic External Data Provider LAB BLOOD ORDERAB LES Final Result [facility] [address] [place] [phone] [phone] * BI Mammogram Screening Tomosynthesis Bilateral (10/29/2024 12:58 PM EST) Anatomical Region Laterality Modality Breast Bilateral Mammography 10/29/2024 12:5 8 PM EST Narrative 11/04/2024 12:41 PM EST [facility] [address] [place] [address] Mammography Report Signed Patient: Elaine Rodas MR#: [id number] : 1970 Acct:[id number] Age/Sex: 53 / F ADM Date: 10/29/24 Loc: HO.MAMMO Attending Dr: Mychal Long MD Ordering Physician: Syed Coreas MD Results: 1Negativ e Date of Service: 10/29/24 Follow Up: 1 Year From Orig inal Mammogram Procedure(s): MM tomosynthesis screening BI Accession Number(s): [id number] cc: Mychal Long MD; Syed Coreas MD [...] by: Shayy Connor DO 11/04/2024 12:38 PM [facility] Dictated By: Shayy Connor DO Signed By: <Electronically signed by Shayy Connor DO in OV> 11/04/24 1238 DD/ 1258 TD/TT: 10/29/24 1315 Early Years Teacher: Procedure Note Donotuseinterpreter, Image - 11/04/2024 [facility] [address] [place], [place] [address] Mammography Report Signed Patient: Elaine RodasMR#: [id number] : 1970Acct:[id number] Age/Sex: 53 / FADM Date: 10/29/24 Loc: MAMMO Attending Dr: Mychal Long MD Ordering Physician: Syed Coreas MDResults: 1Negativ e Date of Service: 10/29/24Follow Up: 1 Year From Orig inal Mammogram Procedure(s): MM tomosynthesis screening BI Accession Number(s): [id number] cc: Mychal Long MD; Syed Coreas MD [...] 11/04/24 1238 DD/ 1258 TD/TT: 10/29/24 1315 Early Years Teacher: [facility] External Provider IMG BI PROCEDURES Final Result * HPV mRNA E6/E7 w/Reflex to HPV Genotypes 16, 18/45 (08/23/2023 2:22 PM EST) HPV nRNA E6/E7 Not Detected Not Detected [facility] Comment:Methodology: Transcr iption-Mediated AmplificationThis assay detects E6/E7 viral messenger RNA (mRNA) from 14high-risk HPV types (16,18,31,33,35,39,45,51,52,56,58,59,66,68).Cervical sources are required for HPV testing.If a vaginal source from a patient who has had atotal hysterectomy with removal of cervix wassubmitted, please contact the testing laboratoryfor alternative testing options.For additional information, please refer tohttp://education.Proton Therapy/faq/BCU044b7(This link if provided for information/educational purposes only.)THIS TEST WAS PERFORMED AT:[facility] [place] [phone] PRESSLEY MD HPV mRNA E6/E7 TNP [facility] HPV 16 RNA TNP [facility] HPV 18/45 RNA TNP [facility] 08/23/2023 2:22 PM EST 08/24/2023 9:35 AM EST us Cecily Schwab [facility] CYTOLOGY ORDERABLES F inal Result [facility] [address] [place] [phone] * Pap Smear (08/23/2023 2:22 PM EST) Swab Cervix uteri structure / Unknown 08/23/2023 2:22 PM EST 08/24/2023 9:35 AM EST Narrative [facility] - 09/04/2023 1:23 PM EST ----- ------- Name: Elaine Rodas Age/Sex: 52/F : 1970 Unit#: [id number] Attend Dr: Re08/23/23 Status: PRE REF Location: [facility] Disch: ----- ------- SPEC : [id number] RECD: 08/24/23 STATUS: RICHARD SCHAEFER NUM: [id number] CHAPIN: 08/23/23-[address] [facility] [address]: CECILY SCHWAB CNM ENTERED: [...] 59, 66, 68) HPV testing performed by [employer], [place], [place]. See reference laboratory portion of the EMR for entire report. Clinical Information LMP: Postmenopausal Previous PAP test: Unknown date/findings Other history: Abnormal bleeding Material Received ThinPrep-Cervical ----- ------- Signed (signature on file) NATHAN Medrano (ASCP) 09/04/23 1323 ----- ------- END OF REPORT Cecily Rizzardini CNM LAB CYTOLOGY ORDERABLES F inal Result [facility] [address] [place] [address] [phone] * Hm Colonoscopy (08/30/2022) Colonoscopy Normal Normal us Historical Provider HEALTH MAINTENANCE Final Result from Last 3 Months or Most Recently Relevant to Health Maintenance Insurance [employer] C[employer] Care Teams Money Manager Relationship Specialty Start Date End Date Mychal Fields MD [address] [place], [place] PCP - General Internal Medicine 04/30/14 Hima Fam FNP [address] [place], [place] Nurse Practitioner Family Medicine 11/22/[address] [place] [address] Rheumatology 06/30/25
--- OUTSIDE RECORDS SUMMARY | 2025-09-09 09:31 | XMS_ITS | Encounter Summary ---
Author Organization [employer] Address [address] [place] [address] 7t [place] [address] Care Team Providers Care Reading Aide Name Role Phone Mychal Fields MD Primary Care Provide r Hima Fam Unavailable Unavailable Yaneth Dotson RN Unavailable Mckenzie Silverio Unavailable [facility] Unavailable Encounter Details Date Type Department Care Team (Late st Contact Info) Description 04/24/2023 Orders Only [facility] [address] [place] [address] Zena Harley MD [address] [place], [place] [phone] Acquired clavicle deformity (Primary Dx) Social History [...] PM EDT Narrative 05/14/2023 4:45 PM EDT [address] [address] XRay Report Signed Patient: Elaine Rodas MR#: [id number] : 1970 Acct:[id number] Age/Sex: 52 / F ADM Date: 05/14/23 Loc: HO.ED Attending Dr: Ordering Physician: Vee Castano NP Date of Service: 05/14/23 Procedure(s): XR chest 2V Accession Number(s): [id number] cc: Mychal Long MD; Vee Castano NP [...] in OV> 05/14/23 1642 DD/ 1624 TD/TT: Multimedia Assistant: DORITA Procedure Note Donotuseinterpreter, Image - 05/14/[address] [address] XRay Report Signed Patient: Elaine RodasMR#: [id number] : 1970Acct:[id number] Age/Sex: 52 / FADM Date: 05/14/23 Loc: HO.ED Attending Dr: Ordering Physician: Vee Castano NP Date of Service: 05/14/23 Procedure(s): XR chest 2V Accession Number(s): [id number] cc: Mychal Long MD; Vee Castano NP [...] in OV> 05/14/23 1642 DD/ 1624 TD/TT: Multimedia Assistant: DORITA [facility] External Provider IMG XR PROCEDURES Edited Result - Final * XR Foot 3+ Views Right (05/10/2023 11:44 AM EDT) Anatomical Region Laterality Modality Lower Extremities, Foot Right Radiogra phic Imaging 05/10/2023 11:4 4 AM EDT Narrative 05/10/2023 12:08 PM EDT [address] [address] XRay Report Signed Patient: Elaine Rodas MR#: [id number] : 1970 Acct:[id number] Age/Sex: 52 / F ADM Date: 05/10/23 Loc: HO.CX Attending Dr: Mychal Long MD Ordering Physician: Mychal Long MD Date of Service: 05/10/23 Procedure(s): XR foot RT min 3V Accession Number(s): [id number] cc: Mychal Long MD EXAMINATION: XR FOOT, [...] in OV> 05/10/23 1205 DD/ 1144 TD/TT: Multimedia Assistant: YULISSA Procedure Note Donotuseinterpreter, Image - 05/10/[address] [address] XRay Report Signed Patient: Elaine RodasMR#: [id number] : 1970Acct:[id number] Age/Sex: 52 / FADM Date: 05/10/23 Loc: HO.HHCX Attending Dr: Mychal Long MD Ordering Physician: Mychal Long MD Date of Service: 05/10/23 Procedure(s): XR foot RT min 3V Accession Number(s): [id number] cc: Mychal Long MD EXAMINATION: XR FOOT, [...] Tijerina MD Signed By: <Electronically signed by aRfat Tijerina MD in OV> 05/10/23 1205 DD/ 1144 TD/TT: Multimedia Assistant: YULISSA us Mychal Morris MD IMG XR PROCEDURES Fin al Result * FL Esophagus Barium Swallow w/Air (05/08/2023 10:19 AM EDT) Anatomical Region Laterality Modality Head, Neck Radiographic Hilda ging 05/08/2023 10:1 9 AM EDT Narrative 05/08/2023 4:35 PM EDT [place] [address] Fluoroscopy Report Signed Patient: Elaine Rodas MR#: [id number] : 1970 Acct:[id number] Age/Sex: 52 / F ADM Date: 05/08/23 Loc: CHAPARRITA Attending Dr: Mychal Long MD Ordering Physician: Mychal Long MD Date of Service: 05/08/23 Procedure(s): FL barium swallow with air Accession Number(s): [id number] cc: Mychal Long MD EXAMINATION: XR FLUOROSCOPY [...] in OV> 05/08/23 1632 DD/ 1019 TD/TT: Multimedia Assistant: Procedure Note Donotuseinterpreter, Image - 05/08/[address] [address] Fluoroscopy Report Signed Patient: Elaine RodasMR#: [id number] : 1970Acct:[id number] Age/Sex: 52 / FADM Date: 05/08/23 Loc: HOKRISH Attending Dr: Mychal Long MD Ordering Physician: Mychal Long MD Date of Service: 05/08/23 Procedure(s): FL barium swallow with air Accession Number(s): [id number] cc: Mychal Long MD EXAMINATION: XR FLUOROSCOPY [...] in OV> 05/08/23 1632 DD/ 1019 TD/TT: Multimedia Assistant: Mychal Morris MD IMG FLUOROSCOPY PROCE DURES Final Result documented in this encounter Visit Diagnoses Diagnosis 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 documented in this encounter Additional Health Concerns Assessment Noted Time PHQ-9 Depression Total Score: 8 02/09/20 23 11:04 AM EDT documented as of this encounter Care Teams Reading Aide Relationship Specialty Start Date End Date Mychal Fields MD [address] [place] [address] PCP - General Internal Medicine 04/30/14 Hima Fam FNP [address] [place] [address] Nurse Practitioner Family Medicine 08/01/23 Yaneth Dotson, ALAN [address] [place] [address] Registered Nurse Family Medicine 02/24/25 07/09/25 Mckenzie Silverio 02/24/25 07/20/[address] [place] [address] Rheumatology 06/30/25 [employer] [facility] 02/13/25 03/29/25 documented as of this encounter
--- OUTSIDE RECORDS SUMMARY | 2025-09-09 09:31 | XMS_ITS | Encounter Summary ---
Author Organization [employer] Address [address] [place] [address] 7t [place] [address] Care Team Providers Care Fishing Line Winding Machine Operator Name Role Phone Mychal Fields MD Primary Care Provide r Hima Fam Unavailable Unavailable Yaneth Dotson RN Unavailable [phone] Mckenzie Silverio Unavailable [facility] Unavailable [phone] Reason for Visit * Reason Onset Date Comments PRE OP 11/10/2024 Encounter Details Date Type Department Care Team (Late st Contact Info) Description 11/10/2024 Telephone [facility] [address] [place], [place] [phone] Mychal Fields MD [address] [place], [place] [phone] PRE OP Social History Tobacco Use Types [...] needed: No EKG: No Surgeon's name: Dino Columbia Facility name: [facility] Surgeon's office number: [phone] Surgeon's office fax number: [phone] Contact name (person you spoke with): Karon [...] documented as of this encounter Care Teams Fishing Line Winding Machine Operator Relationship Specialty Start Date End Date Mychal Fields MD [address] [place] [address] PCP - General Internal Medicine 04/30/14 Hima Fam FNP [address] [place] [address] Nurse Practitioner Family Medicine 08/01/23 Yaneth Dotson, ALAN [address] [place] [address] Registered Nurse Family Medicine 02/24/25 07/09/25 Mckenzie Silverio 02/24/25 07/20/[address] [place] [address] Rheumatology 06/30/25 [employer] 02/13/25 03/29/25 documented as of this encounter
--- OUTSIDE RECORDS SUMMARY | 2025-09-09 09:31 | XMS_ITS | Encounter Summary ---
Author Organization [employer] Address [address] [place] [address] 7t [place] [address] Care Team Providers Care Supply Chain Manager Name Role Phone Mychal Fields MD Primary Care Provide r Hima Fam Unavailable Unavailable Yaneth Dotson RN Unavailable [phone] Mckenzie Silverio Unavailable [facility] Unavailable [phone] Reason for Visit * Reason Onset Date Comments Appointment Request 12/04/2022 Encounter Details Date Type Department Care Team (Late st Contact Info) Description 12/04/2022 Telephone [facility] [address] [place], [place] [phone] Mychal Fields MD [address] [place], [place] [phone] Appointment Request Social History Tobacco Use Types [...] ff/u Bp ) Please contact pt at [phone] * Telephone Encounter - Wesley Collins - 12/04/2022 2:02 PM EDT Tc from pt requesting to r/s appt on 10/19/22 ( ff/u Bp ) Please contact pt at [phone] documented in this encounter Plan of Treatment Not on file documented as of this encounter Visit Diagnoses Not on filedocumented in this encounter Additional Health Concerns Assessment Noted Time PHQ-9 Depression Total Score: 7 10/09/19 4:00 PM EST documented as of this encounter Care Teams Supply Chain Manager Relationship Specialty Start Date End Date Mychal Fields MD [address] [place] [address] PCP - General Internal Medicine 04/30/14 Hima Fam FNP [address] [place] [address] Nurse Practitioner Family Medicine 08/01/23 Yaneth Dotson, ALAN [address] [place] [address] Registered Nurse Family Medicine 02/24/25 07/09/25 Mckenzie Silverio 02/24/25 07/20/[address] [place] [address] Rheumatology 06/30/25 [employer] 02/13/25 03/29/25 documented as of this encounter
--- OUTSIDE RECORDS SUMMARY | 2025-09-09 09:31 | XMS_ITS | Clinical Summary ---
Author Organization [facility] 299 [facility] Address [address] [place] [address] Phone Care Team Providers Care Bung Driver Name Role Phone Mychal Long MD [...] She is [facility]. Patient may follow-up with us here [...] her lung cancer screening program here at [facility] with her LDCT due December 2025. Patient may follow-up with us here in thoracic surgery on an as-needed basis going forward. Resolved Problems Problem Noted Date Diagnosed Date Resolved Date Mediastinal mass 01/26/2025 02/26/2025 Mediastinal lymphadenopathy 01/26/2025 02/26/2025 Encounters Date Type Department Care Team Description 07/10/2025 3:00 PM EDT Office Visit Pulmonology - [address] [address] Rosy Rhodes MD Bilateral pleural effusion (Primary Dx); Thymic cyst (CMS/HCC V24); Chest pain on breathing from Last 3 Months Surgical History Surgery [...] 06/01/2025 11:43 AM EDT Plan of Treatment Health Maintenance Due [...] Associated Diagnosis Comments BASIC METABOLIC PANEL Routine 05/29/2025 3:41 PM EDT Bilateral pleural effusion Chest pain on breathing from Last 3 Months or Most Recently Relevant to Health Maintenance Results * (ABNORMAL) Basic metabolic panel (05/29/2025 3:41 PM EDT) Sodium 138 133 - 145 mmol/L LAB CHEMISTRY METHOD 05/29/2025 4:31 PM EDT [facility] Potassium 4.0 3.5 - 5.5 mmol/L LAB CHEMISTRY METHOD [facility]/29[facility]2025 [facility] Chloride 106 96 - 110 mmol/L LAB CHEMISTRY METHOD 05/29/2025 4:31 PM T [facility] CO2 28 21 - 32 mmol/L LAB CHEMISTRY METHOD 05/29/2025 4:31 PM [facility] Anion Gap 4 3 - 11 LAB CHEMISTRY METHOD 05/29/2025 4:31 PM EDT [facility] Glucose 108(H) 70 - 100 mg/dL LAB CHEMISTRY METHOD 05/29/2025 4:31 PM EDT [facility] BUN 9 5 - 25 mg/dL LAB CHEMISTRY METHOD 05/29/2025 4:31 PM EDT [facility] Creatinine 0.86 0.50 - 1.10 mg/dL LAB CHEMISTRY METHOD 05/29/2025 4:31 PM EDT [facility] eGFR 80 >=60 mL/min/1. 73m2 LAB CHEMISTRY METHOD 05/29/2025 4:31 PM EDT [facility] Comment:Calculation based on the Chronic Kidney Disease Epidemiology Collaboration (CKD-EPI) equation refit without adjustment for race. BUN/Creatinine Ratio 10.5 LAB CHEMISTRY METHOD 05/29/2025 4:31 PM EDT [facility] Calcium 9.1 8.5 - 10.5 mg/dL LAB CHEMISTRY METHOD 05/29/2025 4:31 PM EDT [facility] Blood Venous blood specimen / Unknown Venipuncture / Unknown 05/29/2025 3:41 PM EDT 05/29/2025 4:05 PM EDT Rosy Rhodes MD LAB BLOOD ORDERABLES Final Result [facility] [address] [place] [address], from Last 3 Months or Most Recently [...] currently active code status orders. Care Teams Bung Driver Relationship Specialty Start Date End Date Mychal Long MD [address] [place] [address] [place] [address] PCP - General 12/26/11
== END 2025-09-09 10:16 | disposition home or self-care (01) ==
LOC: HO.HUSH 09:18
PROVIDERS: PCP Internal Medicine; Visit Provider Nurse Practitioner Family
DX: R31.29 Other microscopic hematuria (principal); N32.81 Overactive bladder; F17.200 Nicotine dependence, unspecified, uncomplicated; Z13.9 Encounter for screening, unspecified
CPT/HCPCS: 99213

== ENCOUNTER 2025-09-09 09:18 | Outpatient (REF) | payer MEDICAID, SELFPAY ==
--- NOTE | ~2025-09-09 | XR_ITS ---
EXAMINATION: XR CHEST CLINICAL INFORMATION: J90 - Pleural effusion, not elsewhere classified COMPARISON: 06/30/2025 TECHNIQUE: 2 views of the chest were obtained. FINDINGS: The cardiac, hilar, and mediastinal contours are normal. The lungs are clear bilaterally. There is no pneumothorax or definitive residual pleural effusion. There is no acute osseous or soft tissue abnormality. There are degenerative changes throughout the spine. XR/XR chest 2V IMPRESSION: No active pulmonary disease. No pleural effusion evident. Electronically signed by: Elias Courtney MD 09/09/2025 10:27 AM IVÁN
--- OUTSIDE RECORDS SUMMARY | 2025-09-09 09:56 | XMS_ITS | Data Portability ---
Author Organization [place] - [facility] Address [address] [address] Care Team Providers Care Sheet Tailer Name Role Phone GIACOMO MARX Primary Care Provider GIACOMO MARX Referring Provider [phone] Assessment Encounter Date Assessment Date Assessment LastModified by Organization Details LastModified Time 04/25/2024 04/25/2024 53-year-old female presents following DL with biopsy. Pathology was reviewed to be benign. 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 Overall reassurance was provided. follow up as scheduled. [email or web address] Not available 04/28/2024 15:04:21 Plan of Treatment [...] observ ation record ed. [email or web address] [facility] [place] [address], [place], [address], 02/25/2024 09:12:35 03/31/20 24 03/31/2024 US, neck, soft tissu e No observ ation record ed. [facility] (Imaging) [address], , [address], 04/11/2024 16:05:21 04/28/20 24 04/10/2024 clini bertha photo * No observ ation record ed. [email or web address] Not Available 17:00:02 04/29/20 24 05/08/2023 imagi ng/di agnos tic resul t No observ ation record ed. [email or web address] Not Available 21:42:28 Result Notes None recorded. Problems Name Problem SNOMED Code Status Onset Date Resolution Date Notes Provider Name and Address Organization Details Recorded Time Mass of neck 902333801 Active 2023 Localized swelling, mass and lump, neck; Note: Date Diagnosed : 11/08/2023 11:56 AM (R22.1) Not Available [facility] 4 02:45:02 Neck swelling 121091831 Active 2023 Localized swelling, mass and lump, neck; Note: Date Diagnosed : 11/08/2023 11:56 AM (R22.1) Not Available [facility] 4 02:45:02 Neck pain 26531940 Active 2023 Cervicalg ia; Note: Date Diagnosed : 11/08/2023 11:56 AM (M54.2) Not Available [facility] 4 02:45:02 Dysphagia 34225565 Active 2023 Dysphagia , unspecifi ed; Note: Date Diagnosed : 11/08/2023 11:56 AM (R13.10) Not Available [facility] 4 02:45:05 Non-toxic uninodula r goiter 332378238 Active 2023 Nontoxic single thyroid nodule; Note: Date Diagnosed : 01/18/2024 11:58 AM (E04.1) Not Available [facility] 4 02:45:01 Thyroid nodule 579349698 Active 2023 MADHU REYES MD 100 [facility],[place] [address], [place], [address] , [place] - [facility] 4 16:36:38 Hypertrop hy of tonsils AND adenoids 46706116 Active 2023 MADHU REYES MD [address] [place] [address],[place] [address], [place], [place], [address] , [place] - [facility] 4 16:36:47 Hypertrop hy of lingual tonsil 799498296 Active 2023 MADHU REYES MD [address] [place] [address],[place] [address], [place], [address] , [place] - [facility] 4 16:36:52 Obstructi ve sleep apnea of adult 40774988287 03 Active 2023 MADHU REYES MD [address] [place] [address],[place] [address], [place], [address] , [place] - [facility] 4 08:48:15 Seasonal allergic rhinitis 176026859 Active 2023 MADHU REYES MD [address] [place] [address],[place] [address], [place], [address] , [facility] - [facility] 4 08:52:06 Allergic rhinitis 16375542 Active 2023 MADHU REYES MD [address] [place] [address],[place] [address], [place], [address] , [facility] - [facility] 4 08:52:17 Non-aller gic rhinitis 28399994129 1 Active 2023 MADHU REYES MD 100 [facility], [facility] [place], [address] , [facility] - [facility] 4 08:52:17 Problem Notes None recorded. Procedures Surgical History Date Name Laterality Status Provider Name and Address Organization Details Recorded Time 4 LARYNGOSCOPY, DIRECT OPERATIVE WITH OPERATING MICROSCOPE OR TELESCOPE WITH BIOPSY (SURG) completed Paulo Faria [place] - [facility] 04/14/2024 09:38:40 4 FFL_RE completed MADHU REYES MD 100 [facility] 100, , [address], [facility] - [facility] 03/18/2024 17:33:49 Imaging Results None recorded. Procedure [...] % eye drops active Medicatio n ID: [id number] Br and Name: latanopro st Send Method: E-Prescri bed Subs Allowed: subs OK Specia l Instructi on: PUT 1 DROP INTO BOTH EYES AT BEDTIME M edication GenericNa me: latanopro st Not Available Not Available Not Available terconazol e 0.4 % vaginal cream active Medicatio n ID: [id number] Br and Name: terconazo le Send Method: [...] 8.6 mg tablet active Medicatio n ID: [id number] Br and Name: skashi Sellers d Method: E-Prescri bed Subs Allowed: [...] 20 mg tablet active Medicatio n ID: [id number] Br and Name: dicyclomi ne Send Method: [...] 10 mg tablet active Medicatio n ID: [id number] Br and Name: buspirone Send Method: E-Prescri [...] 100 mg capsule active Medicatio n ID: [id number] Br and Name: gabapenti n Send Method: [...] % topical gel active Medicatio n ID: [id number] Br and Name: diclofena c sodium Se [...] capsule,de layed release active Medicatio n ID: [id number] Br and Name: Creon Marlo d Method: E-Prescri bed Subs Allowed: subs OK Specia l Instructi on: TAKE 1 CAPSULE BY MOUTH 4 TIMES A DAY. ADMINISTE R WITH MEALS AND OR SNACKS Me dicationG enericNam e: Creon Not Available Not Available Not Available blood pressure test kit-large cuff active Medicatio n ID: [id number] Br and Name: blood pressure test kit-large Send Method: E-Prescri bed Subs Allowed: subs OK Specia l Instructi on: USE TO CHECK BLOOD PRESSURE ONCE DAILY IN THE MORNING M edication GenericNa me: blood pressure test kit-large Not Available Not Available Not Available Dexilant 60 mg capsule, delayed release active Medicatio n ID: [id number] Br and Name: Dexilant Send Method: E-Prescri [...] Updated DateTime 03/18/2024 160.02 cm 36.8 kg/m2 62938.21 g Kodi Soni [place] - [facility] 03/18/2024 16:16:00 Date Recorded Body height Body mass index (BMI) Body weight Provider Name and Address Organization Details Last Updated DateTime 04/25/2024 160.02 cm 36.8 kg/m2 54741.21 g Janeth Castro [facility] 04/25/2024 15:19:15 Date Recorded Body height Body mass index (BMI) Body weight Provider Name and Address Organization Details Last Updated DateTime 07/30/2024 160.02 cm 36.8 kg/m2 06502.21 g Marley Santamaria [facility] 07/30/2024 08:31:21 Social History None recorded. Functional [...] Note [id number] MADHU REYES MD [facility] [address] [address] 03/18/2024 15:41:26 03/18/2024 17:01:09 Thyroid nodule 782214676 E04.1 I recommend a US guided FNA of the thyroid nodule. She will f/u to review. Hypertroph y of tonsils AND adenoids 23258326 J35.3 hypertroph y of Waldeyer's ring. lingual tonsil biopsy is less morbid to evaluate for lymphoma. see below. Hypertroph y of lingual tonsil 875564522 J35.3 I recommend direct laryngosco py with [...] We will schedule surgery mutually convenient time. [id number] CIERRA GARCIA PA-C [facility] [address] [address] 04/25/2024 15:12:06 04/30/2024 07:57:22 Hypertrophy of lingual tonsil 522018734 J35.3 Hypertroph y of tonsils AND adenoids 16318250 J35.3 Neck pain 86706779 M54.2 [id number] MADHU REYES MD [facility] [address] [address] 07/30/2024 08:28:17 07/30/2024 08:55:15 Hypertrophy of lingual tonsil 730063093 J35.3 Biopsies negative. Gave reassuranc e. Continue observatio n. Deferred laryngosoc py today. Obstructiv e sleep apnea of adult 3929194193 103 G47.33 Agree with starting CPAP which is in process. Thyroid nodule 802288447 E04.1 Recommend repeat thyroid US at [facility] after next visit in 6 months. Seasonal a llergic rhinitis 293818601 J30.2 Exam and history are consistent with allergic rhinitis. We will obtain allergy testing to clarify the extent of allergy with f/u to review. Allergic rhinitis 234900 04 J30.9 Non-allergic rhinitis 31 55316436 01 J31.0 Health Concerns Section Related Observation LastModified by Organization Detai ls LastModified Time None Recorded Concern Status LastModified by Organization Details LastModified Time None Recorded Advance Directives Directive None Recorded Payers Insurance Date Sequence Insurance Name Policy Number Policy Tompkins Covered Member ID Tompkins Member ID Guarantor Name 05/05/2025 1 [place] [facility] Elaine Rodas [id number] Elaine Rodas Notes Date Note Type Note [...] by her other doctors. MADHU REYES MD [address] [place] [address],[address], [address], [place] - [facility] 03/18/2024 17:45:03 04/25/2024 text/html ROS as noted in the HPI 53-year-old female presents following DL with biopsy. She continues to have mild sore throat but no bleeding. Biopsy was done due to hypertrophy of Waldeyer's ring on imaging. MADHU REYES MD [address] [place] [address],[address], [address], [place] - [facility] 04/29/2024 10:01:40 07/30/2024 text/html ROS as [...] allergies with marginal benefit. MADHU REYES MD [address] [place] [address],[address], [address], [place] - [facility] 07/30/2024 08:52:32 OBGyn Episode No OBEpisode recorded.
== END 2025-09-09 09:19 | disposition home or self-care (01) ==
LOC: HO.XRAY 09:18
PROVIDERS: PCP Internal Medicine; Visit Provider Nurse Practitioner Family
DX: R31.29 Other microscopic hematuria (principal); J90 Pleural effusion, not elsewhere classified; N32.81 Overactive bladder; F17.210 Nicotine dependence, cigarettes, uncomplicated
CPT/HCPCS: 71046; 81003; 88112; 99212

== ENCOUNTER → 2025-09-09 10:12 | Outpatient (BNV) | payer MEDICAID, SELFPAY | PROVIDERS: PCP Internal Medicine; Visit Provider Radiology Diagnostic Radiology | DX: J90 Pleural effusion, not elsewhere classified (principal) | CPT/HCPCS: 71046 ==